=== PATIENT | male | born 1950 | race Caucasian/White ===

== ENCOUNTER 2022-12-11 00:10 | Inpatient (IN) | payer MEDICARE, SELFPAY ==
[2022-12-11] VITALS (22 sets, daily range): BP systolic 124–172; BP diastolic 51–77; PULSE 86–123; RESP 16–32; TEMP 36.4–37.1; O2SAT 28–98; BMI 22.8; BMI 23.1
--- NOTE | 2022-12-11 00:28 | EKG12_ITS ---
Test Reason : DYSRHYTHMIA Blood Pressure : / mmHG Vent. Rate : 116 BPM Atrial Rate : 116 BPM P-R Int : 136 ms QRS Dur : 100 ms QT Int : 318 ms P-R-T Axes : 073 061 -64 degrees QTc Int : 442 ms Sinus tachycardia with Premature atrial complexes Left ventricular hypertrophy with repolarization abnormality Abnormal ECG Confirmed by JULIO CRAWFORD, MIKY ([id number]), videotape editor KIRSTIN SOSA ([id number]) on 12/13/2022 9:50:05 AM Referred By: LIBBY Confirmed By:MIKY KIM MD
[2022-12-11] MEDS: Ipratropium/Albuterol Sulfate 3 ML AMPUL.NEB 6 ML INHALATION (00:35)
--- NOTE | 2022-12-11 00:39 | EX.ED.DYSGE1 ---
HPI History of Present Illness Chief Complaint: Shortness of Breath Narrative Narrative: Patient is a 72-year-old male who is presenting with his with chief complaint of shortness of breath, hypoxia, cough, congestion for the past 2 to 3 days. Patient has a significant cardiac history as well, patient had three-vessel bypass back in 1999. Patient has also had 2 or 3 stents since. Patient does not have a active licensed nursing assistant. Patient does have a history of emphysema COPD. Patient was smoking from the age of 17 up until the year 1999. Patient quit smoking in 1999, then started again 6 years later. Patient says that he quit 3 days ago. Patient has no recent traveling or trauma in the last week or 2. Patient does not wear oxygen at home. Patient does not wear CPAP or BiPAP at home. Patient has never been placed on CPAP or BiPAP before. Patient's has, she understands what CPAP or BiPAP is, but patient has never been on it. Patient has never been placed on a ventilator. Patient has no chest pain or tightness. No abdominal pain, nausea or vomiting. No diarrhea recently. No rash. No other acute complaints. Patient does have a nebulizer machine at home. Patient's been using his nebulizer every 4-5 hours for the last couple days. Patient came in by private car. No pitting edema. Patient states he is a type II diabetic. Patient does not recall ever having congestive heart failure. Patient did have a thoracentesis once after his open heart surgery in 1999. PFS PFS Medical History CAD (coronary artery disease) COPD (chronic obstructive pulmonary disease) Diabetes mellitus, type 2 Essential tremor History of CVA (cerebrovascular accident) Hyperlipidemia Hypertension Stage 3a chronic kidney disease (CKD) Tobacco use Home Medications atorvastatin 80 mg tablet 80 mg PO QHS 03/24/16 [History Last Taken Unknown] clopidogrel 75 mg tablet 75 mg PO DAILY 03/24/16 [History Last Taken Unknown] metformin 1,000 mg tablet 1,000 mg PO BIDCM 03/24/16 [History Last Taken Unknown] metoprolol tartrate 50 mg tablet 50 mg PO BID 03/24/16 [History Last Taken Unknown] albuterol sulfate 2.5 mg/3 mL (0.083 %) solution for nebulization mg 12/11/22 [History Last Taken Unknown] amlodipine 5 mg tablet 5 mg PO DAILY 12/11/22 [History Last Taken Unknown] primidone 50 mg tablet 50 mg PO BID 12/11/22 [History Last Taken Unknown] sertraline 100 mg tablet 100 mg PO DAILY 12/11/22 [History Last Taken Unknown] Allergy/AdvReac Type Severity Reaction Status Date / Time acetaminophen [From Tylenol] Allergy Unknown Verified 12/11/22 00:12 morphine Allergy Other Verified 12/11/22 00:12 oyster extract Allergy Unknown Verified 12/11/22 00:12 lisinopril AdvReac Other Verified 12/11/22 00:12 Family History (Updated 12/11/22 @ 02:[address] Patt Giordano MD) Mother Cancer Brain cancer, unclear type. Son Cancer Youngest son, metastatic testicular cancer. Father Heart disease Hypertension CVA (cerebral vascular accident) Surgical History (Updated 12/11/22 @ 02:[address] Patt Giordano MD) H/O heart artery stent H/O right inguinal hernia repair S/P appendectomy S/P bilateral foot surgery S/P triple vessel bypass Social History (Updated 12/11/22 @ 02:[address] Patt Giordano MD) household members: spouse Smoking Status: Former smoker how long ago did patient quit smoking: Smoked since 10/27/1967, up to 1 ppd, recent down to 1 pk/4-5 days. alcohol intake: current alcohol intake frequency: holidays/special occasions only substance use type: does not use ROS ROS ED ROS Narrative REVIEW OF SYSTEMS: Unless otherwise stated in this report the patient's positive and negative responses for review of systems for constitutional, eyes, ENT, cardiovascular, respiratory, gastrointestinal, neurological, , musculoskeletal, and integument systems and related systems to the presenting problem are either stated in the history of present illness or were not pertinent or were negative for the symptoms and/or complaints related to the presenting medical problem. EXAM Physical Exam Narrative Exam Narrative: Vital signs reviewed and patient is hypoxic on room air, 66% during initial triage.. Patient is 97% on 3 L of nasal cannula. General: The patient appears in mild respiratory distress with increased respiratory rate. Patient is resting comfortably on cart. Not toxic, lethargic, or listless. Skin: Warm, dry, no pallor noted. There is no rash noted. Head: Normocephalic, atraumatic Eye: Normal conjunctiva, no drainage, EOMI. PERRL. Ears, Nose, Mouth, and Throat: oral mucosa is moist. Nares patent. Mouth without vesicles. Ear canals patent. Tm's without Erythema Cardiovascular: Regular Rate and Rhythm, no murmurs, gallops, or rubs Respiratory: Patient is in mild respiratory distress with increased respiratory rate, bilateral diffuse wheezing, bilateral rhonchi diffusely, no crackles or rales noted. Back: non-tender, no CVA tenderness bilaterally to percussion. NO CTLS midline or paracervicl tenderness to palpation. GI: Soft, no tenderness to palpation, no masses appreciated. No rebound, guarding, or rigidity noted. Musculoskeletal: The patient has full range of motion of all extremities and joints with no difficulty. Patient has no motor, no sensory deficits. Neurological: A&O x4, normal speech, no focal neurological deficits. Psychiatric: Cooperative Const Vital Signs: 12/11/22 00:10 12/11/22 00:10 12/11/22 00:18 Temperature 97.9 F Temperature Source Temporal Pulse Rate 115 H Respiratory Rate 32 H Respiratory Effort Short of Breath Respiratory Depth Shallow Respiratory Pattern Tachypnea Blood Pressure 162/67 H Blood Pressure Mean 98 Pulse Ox 97 98 Oxygen Delivery Method Nasal Cannula Nasal Cannula Nasal Cannula Oxygen Flow Rate (L/min) 6 3 3 12/11/22 00:35 12/11/22 01:10 12/11/22 01:17 Temperature 97.6 F L Temperature Source Temporal Pulse Rate 123 H 117 H 118 H Respiratory Rate 24 H 28 H 28 H Respiratory Effort Respiratory Depth Respiratory Pattern Tachypnea Blood Pressure 168/67 H 168/67 H Blood Pressure Mean 100 100 Pulse Ox 28 95 Oxygen Delivery Method Nasal Cannula Nasal Cannula Oxygen Flow Rate (L/min) 2 2 12/11/22 01:47 12/11/22 02:00 12/11/22 02:00 Temperature 97.8 F Temperature Source Temporal Pulse Rate 115 H Respiratory Rate 24 H 24 H Respiratory Effort Respiratory Depth Respiratory Pattern Blood Pressure 157/73 H Blood Pressure Mean 101 Pulse Ox 95 Oxygen Delivery Method Nasal Cannula Nasal Cannula Oxygen Flow Rate (L/min) 2 2 12/11/22 02:09 Temperature 97.8 F Temperature Source Temporal Pulse Rate 111 H Respiratory Rate 25 H Respiratory Effort Respiratory Depth Respiratory Pattern Blood Pressure 157/73 H Blood Pressure Mean 101 Pulse Ox 96 Oxygen Delivery Method Nasal Cannula Oxygen Flow Rate (L/min) 2 [facility] MDM Lab Data Attestation: I reviewed the patient's lab results. Labs: Laboratory Results - last 24 hr 12/11/22 12/11/22 12/11/22 00:28 00:36 00:36 WBC 11.3 H RBC 3.64 L Hgb 11.7 L Hct 37.1 L MCV 101.9 H MCH 32.1 H MCHC 31.5 L RDW Std Deviation 52.1 H RDW Coeff of Christine 13.9 Plt Count 237 MPV 9.6 Immature Gran % (Auto) 0.400 Neut % (Auto) 72.9 H Lymph % (Auto) 15.3 L Bremer % (Auto) 10.2 H Eos % (Auto) 0.8 Baso % (Auto) 0.4 Absolute Neuts (auto) 8.2 H Absolute Lymphs (auto) 1.72 Nucleated RBC % 0 PT 15.0 H INR 1.2 Sodium Potassium Chloride Carbon Dioxide Anion Gap BUN Creatinine Estim Creat Clear Calc Est GFR (MDRD) Af Amer Est GFR (MDRD) Non-Af BUN/Creatinine Ratio Glucose Lactic Acid Calcium Total Bilirubin AST ALT Alkaline Phosphatase Troponin I High Sens B-Natriuretic Peptide 277.9 H Total Protein Albumin Globulin Albumin/Globulin Ratio 12/11/22 12/11/22 00:36 00:36 WBC RBC Hgb Hct MCV MCH MCHC RDW Std Deviation RDW Coeff of Christine Plt Count MPV Immature Gran % (Auto) Neut % (Auto) Lymph % (Auto) Bremer % (Auto) Eos % (Auto) Baso % (Auto) Absolute Neuts (auto) Absolute Lymphs (auto) Nucleated RBC % PT INR Sodium 138 Potassium 4.4 Chloride 101 Carbon Dioxide 28.0 Anion Gap 9 BUN 26 H Creatinine 1.41 H Estim Creat Clear Calc 54.85 Est GFR (MDRD) Af Amer 64 Est GFR (MDRD) Non-Af 53 L BUN/Creatinine Ratio 18.4 Glucose 165 H Lactic Acid 2.1 H* Calcium 9.1 Total Bilirubin 0.20 AST 35 ALT 23 Alkaline Phosphatase 120 H Troponin I High Sens 40 B-Natriuretic Peptide Total Protein 7.7 Albumin 3.2 Globulin 4.5 H Albumin/Globulin Ratio 0.7 L ABG Data ABG results: ABG 12/11/22 00:44 Specimen Type ART Sample Site L RADIAL pH 7.42 Bicarbonate Actual 28.3 H Total CO2 30 Base Excess 4 H O2 Saturation 96 ABG pCO2 44.0 ABG pO2 82 Raymon Test POS O2 Delivery Device Nasal Can Liter Flow 2.0 Crit Call To/Read Back Yes Blood Gas Notified Whom [facility] Blood Gas Notified Time 0044 Radiography Chest X-Ray - ED: 2 View and Read by ED Physician (Chest x-ray shows some bilateral lower faint infiltrate, COPD noted, no effusion, no pneumothorax, no other acute cardiopulmonary disease.) EKG Initial EKG: Comments: EKG interpretation. Sinus tachycardia 116. Normal axis deviation. Baseline sinus tachycardia with possible PAC. EKG reading LVH. QTc of 442. No acute ST elevation. Differential Diagnosis Differential Diagnosis: COPD exacerbation, upper respiratory infection, bronchitis, pneumothorax, MO, pleural effusion, hyperglycemia,COVID Treatment and Re-Evaluation :: Patient felt much better after 2 DuoNeb breathing treatments, Solu-Medrol and magnesium. Patient is given IV fluids as well to help with his heart rate. Patient's case was discussed with Dr. Patt Giordano, she agrees with admission. We both reviewed x-ray from back in February 2016, patient does have similar changes on today's x-ray that he did back in 2016. Patient and his had no questions at admission. Patient has been wearing 2 L of nasal cannula maintaining 97% on room air. Discharge Plan Triage Chief Complaint: Shortness of Breath ED Provider: Elroy Williamson Dx/Rx/DC Orders Prescriptions: No Action atorvastatin 80 MG tablet 80 mg PO QHS Label Comments: treat cholesterol clopidogrel 75 MG tablet 75 mg PO DAILY Label Comments: cholesterol metformin 1,000 MG tablet 1,000 mg PO BIDCM Label Comments: blood sugar metoprolol tartrate 50 MG tablet 50 mg PO BID Label Comments: treat Blood pressure primidone 50 mg tablet 50 mg PO BID Label Comments: TAKE 1 TABLET BY MOUTH TWICE A DAY albuterol sulfate 2.5 mg /3 mL (0.083 %) solution for nebulization sertraline 100 mg tablet 100 mg PO DAILY Label Comments: TAKE 1 TABLET BY MOUTH EVERY DAY amlodipine 5 mg tablet 5 mg PO DAILY Label Comments: TAKE 1 TABLET BY MOUTH EVERY DAY Primary Care Provider: Royce Carroll Referrals: Royce Carroll MD [Primary Care Provider] - Disposition Disposition: Acute Care Hospital [facility] [place] [facility]
[2022-12-11 00:48] LABS: Absolute Lymphocyte Count 1.72 X10^3/uL (0.83-4.51); Absolute Neutrophil Count 8.2 X10^3/uL (2.0-7.7); Basophil# 0.04 X10^3/uL; Basophil% 0.4 % (0-1); Eosinophil# 0.09 X10^3/uL; Eosinophils% 0.8 % (0-5); Hematocrit 37.1 % (40-54); Hemoglobin 11.7 g/dL (13.0-16.5); Lymphocyte # 1.72 X10^3/ul (0.83-4.51); Lymphocyte % 15.3 % (19-41); Mean Corp Hgb Conc 31.5 g/dL (32-36); Mean Corpuscular Hgb 32.1 pg (27.0-32.0); Mean Corpuscular Volume 101.9 fL (80-94); Mean Platelet Vol. 9.6 fl (6.2-12.0); Monocyte# 1.15 X10^3/uL; Monocyte% 10.2 % (0-10); NRBC Flagged by Analyzer 0 % (0-5); Neutrophil # 8.23 X10^3/uL (2.7-7.7); Neutrophil % 72.9 % (47-70); Platelet Count 237 K/mm3 (150-450); RBC Distribution Width CV 13.9 % (11.6-14.6); RBC Distribution Width SD 52.1 fl (35.1-43.9); Red Blood Count 3.64 M/mm3 (4.6-6.2); White Blood Count 11.3 K/mm3 (4.4-11.0)
[2022-12-11] MEDS: 0.9% Normal Saline 1,000 ML 150 ML IV (00:51)
[2022-12-11] MEDS: MethylPREDNISolone 125 MG/2 ML Vial IV (00:51)
--- NOTE | 2022-12-11 01:00 | RAD_ITS ---
STUDY: X-RAY CHEST REASON FOR EXAM: Male, 72 years old patient with shortness of breath. TECHNIQUE: Single AP portable view of the chest. COMPARISON: Chest radiograph dated March 24, 2016. FINDINGS: Cardiac monitoring leads are present. The patient has had a sternotomy. Lungs are hyperexpanded. There are prominent bronchovascular markings in both lungs. There may be small bilateral pleural effusions. Normal size heart. Normal mediastinum and kalyan. There is prominence of the pulmonary hilar arteries with peripheral pulmonary vascular congestion. There is atherosclerotic calcification of the aortic arch with tortuosity. Normal visualized thoracic spine. Normal visualized ribs, clavicles, and shoulders. There is no demonstrated abnormality of the visualized soft tissue structures of the upper abdomen. RAD/Chest 1 View (Portable) IMPRESSION: Pulmonary vascular congestion. Electronically Signed: Bhargavi Kennedy MD at 1:47 EDT ,
[2022-12-11] MEDS: levoFLOXacin IV 750 MG/150 ML BAG 100 MG IV (01:01)
[2022-12-11 01:07] LABS: ALB/GLOB Ratio 0.7 RATIO (0.9-2.4); AST(SGOT) 35 U/L (15-37); Alanine Aminotransfer ALT/SGPT 23 U/L (16-61); Albumin, Serum 3.2 g/dL (3.2-5.0); Alkaline Phosphatase 120 U/L (45-117); Anion Gap 9 (5-15); BUN 26 mg/dL (7-18); BUN/Creat Ratio 18.4 RATIO (10-20); Calcium,Total 9.1 mg/dL (8.5-10.1); Chloride 101 mmol/L (98-107); Creatinine, Serum 1.41 mg/dL (0.70-1.30); EST Glomerular Filtration Rate 53 mL/min (>60); Est Glom Filt Rate - Afr Amer 64 mL/min (>60); Estimated Creatinine Clearance 54.85 ml/min; Globulin 4.5 g/dL (2.2-4.2); Glucose 165 mg/dL (74-106); Potassium 4.4 mmol/L (3.5-5.1); Protein, Total 7.7 g/dL (6.4-8.2); Sodium Level 138 mmol/L (136-145); Troponin-I HS 40 pg/mL (3.0-78.0)
--- NOTE | 2022-12-11 01:08 | CPS ---
Additional x1 Duoneb given to pt. in ER as well
[2022-12-11 01:12] LABS: BNP,B-Type NATRIURETIC PEPTIDE 277.9 pg/mL (0-100)
[2022-12-11 01:22] LABS: Lactic Acid 2.1 mmol/L (0.4-1.9)
[2022-12-11 01:40] LABS: Allen Test POS; Blood Gas Specimen Type ART; SITE L RADIAL
[2022-12-11 01:41] LABS: O2 Delivery Device Nasal Can
[2022-12-11] MEDS: Magnesium 2 GM for ERAS IV (01:42)
[2022-12-11 01:47] LABS: Bicarbonate 28.3 mmol/L (22-26); PO2 82 mmHG (75-100); pH 7.42 (7.35-7.45)
[2022-12-11 01:48] LABS: Base Excess 4 mmol/L (-2 to +2)
[2022-12-11 01:49] LABS: SO2 96 % (95-99); Total Carbon Dioxide 30 mmol/L
[2022-12-11 02:02] LABS: International Normalized Ratio 1.2
[2022-12-11] MEDS: 0.9% Normal Saline 1,000 ML 999 ML IV (02:07)
[2022-12-11] MEDS: Lactated Ringers 1,000 ML 999 ML IV (02:18)
--- NOTE | 2022-12-11 03:09 | HP.PCM.HOS_ITS ---
HPI - General General Date of Admission: 12/11/22 Date of Service: 12/11/22 Chief Complaint: Dyspnea, cough, congestion, wheezing. HPI Narrative The patient is a 72 y/o M w/ PMHx: CKD stage IIIa, Essential tremor, COPD, Known Lung nodules, Tobacco use, HTN, HLD, CAD s/p PCI and CABG, Hx CVA, Anxiety and Depression, Carotid disease, Diabetes mellitus type II who presents to the [facility] ED on 12/11/22 with history of 2 to 3 days of progressively worsening fatigue, malaise, cough and congestion with onset of worsening dyspnea with noted hypoxia with recent tobacco cessation approximately 3 days prior to current presentation however given worsening status prompted eventual ED evaluation. Patient reportedly stopped smoking approximately 3 days prior to current presentation although he did quit transiently in 1999 but started again several years later. Patient reports using his nebulizer frequently, approximately every 4-5 hours for the last couple days without significant improvement. He denies any recent associated nausea, emesis, loose stools or abdominal discomfort. He does report having missed his evening medications Toprol regimen. who is present has also had recent congestion, cough over the last couple days as well. Work-up in the ED included T97.9, heart rate 115, BP 162/67, respiratory rate 32, initially upon arrival 97% on 6 L nasal cannula de-escalated down to 98% on 3 L nasal cannula--> T97.6, heart rate 118, BP 168/67, respiratory rate 28, 95% on 2 L nasal cannula, CBC with WC 11.3, hemoglobin 11.7, MCV 1.9, platelet 237 with left shift, CMP with BUN/creatinine 26/1.41, glucose 165, alk phos 120, lactic acid 2.1, troponin 40, BNP 277.9, chest x-ray with chronic changes similar to prior however ED physician preliminary read specifically noting some bilateral lower faint infiltrate, COPD changes noted with no effusion, no pneumothorax nor any other acute cardiopulmonary findings, EKG with ST with PAC with no acute evidence of ischemia, rapid COVID antigen negative, blood culture x2 pending per ED, ABG with pH 7.42, bicarb 28.3, O2 saturation 96%, PCO2 44, PO2 82 performed on 2 L nasal cannula, pending PT with INR as well as urinalysis/urine culture per ED upon requested evaluation of patient. In the ED patient ministered Solu- Medrol 125 mg IV x1, magnesium 2 g IV x1, DuoNeb therapy, maintenance IV fluid normal saline with eventual full 30 cc/kg IV bolus administration as well as Levaquin 750 mg IV x1. [facility] Medical History CAD (coronary artery disease) COPD (chronic obstructive pulmonary disease) Diabetes mellitus, type 2 Essential tremor History of CVA (cerebrovascular accident) Hyperlipidemia Hypertension Stage 3a chronic kidney disease (CKD) Tobacco use Home Medications atorvastatin 80 mg tablet 80 mg PO QHS 03/24/16 [History Last Taken Unknown] clopidogrel 75 mg tablet 75 mg PO DAILY 03/24/16 [History Last Taken Unknown] metformin 1,000 mg tablet 1,000 mg PO BIDCM 03/24/16 [History Last Taken Unknown] metoprolol tartrate 50 mg tablet 50 mg PO BID 03/24/16 [History Last Taken Un known] albuterol sulfate 2.5 mg/3 mL (0.083 %) solution for nebulization mg 12/11/22 [History Last Taken Unknown] amlodipine 5 mg tablet 5 mg PO DAILY 12/11/22 [History Last Taken Unknown] primidone 50 mg tablet 50 mg PO BID 12/11/22 [History Last Taken Unknown] sertraline 100 mg tablet 100 mg PO DAILY 12/11/22 [History Last Taken Unknown] Allergy/AdvReac Type Severity Reaction Status Date / Time acetaminophen [From Tylenol] Allergy Unknown Verified 12/11/22 00:12 morphine Allergy Other Verified 12/11/22 00:12 oyster extract Allergy Unknown Verified 12/11/22 00:12 lisinopril AdvReac Other Verified 12/11/22 00:12 Family History (Updated 12/11/22 @ 02:[address] Patt Giordano MD) Mother Cancer Brain cancer, unclear type. Son Cancer Youngest son, metastatic testicular cancer. Father Heart disease Hypertension CVA (cerebral vascular accident) Surgical History (Updated 12/11/22 @ 02:[address] Patt Giordano MD) H/O heart artery stent H/O right inguinal hernia repair S/P appendectomy S/P bilateral foot surgery S/P triple vessel bypass Social History (Updated 12/11/22 @ 02:[address] Patt Giordano MD) household members: spouse Smoking Status: Former smoker how long ago did patient quit smoking: Smoked since 10/27/1967, up to 1 ppd, r ecent down to 1 pk/4-5 days. alcohol intake: current alcohol intake frequency: holidays/special occasions only substance use type: does not use ROS ROS Narrative Admission Review of Systems: CONSTITUTIONAL: No weight loss, fever, chills, + weakness or fatigue. HEENT: + Congestion, rhinorrhea. Eyes: No visual loss, blurred vision, double vision or yellow sclerae. Ears, Nose, Throat: No hearing loss, sneezing. SKIN: No rash or itching, lesions, wounds. CARDIOVASCULAR: No chest pain, chest pressure or chest discomfort, palpitations, edema, orthopnea, syncopal events. RESPIRATORY: + shortness of breath, cough without marked sputum, wheezing. No hemoptysis. GASTROINTESTINAL: No anorexia, nausea, vomiting or diarrhea, abdominal pain, melena, BRBPR. GENITOURINARY: No dysuria, frequency, urgency or retention. NEUROLOGICAL: No headache, dizziness, syncope, paralysis, ataxia, numbness or tingling in the extremities, focal weakness, change in bowel or bladder control, seizure. MUSCULOSKELETAL: + muscle, back pain, joint pain or stiffness. HEMATOLOGIC: + Easy bleeding or bruising. LYMPHATICS: No enlarged nodes. No history of splenectomy. PSYCHIATRIC: + history of depression or anxiety. ENDOCRINOLOGIC: No reports of sweating, cold or heat intolerance. No polyuria or polydipsia. ALLERGIES: No history of asthma, hives, eczema or rhinitis. Vital Signs Vital Signs Vital Signs: 12/11/22 00:10 12/11/22 00:10 12/11/22 00:18 Temperature 97.9 F Temperature Source Temporal Pulse Rate 115 H Respiratory Rate 32 H Respiratory Effort Short of Breath Respiratory Depth Shallow Respiratory Pattern Tachypnea Blood Pressure 162/67 H Blood Pressure Mean 98 Pulse Ox 97 98 Oxygen Delivery Method Nasal Cannula Nasal Cannula Nasal Cannula Oxygen Flow Rate (L/min) 6 3 3 12/11/22 00:35 12/11/22 01:10 12/11/22 01:17 Temperature 97.6 F L Temperature Source Temporal Pulse Rate 123 H 117 H 118 H Respiratory Rate 24 H 28 H 28 H Respiratory Effort Respiratory Depth Respiratory Pattern Tachypnea Blood Pressure 168/67 H 168/67 H Blood Pressure Mean 100 100 Pulse Ox 28 95 Oxygen Delivery Method Nasal Cannula Nasal Cannula Oxygen Flow Rate (L/min) 2 2 12/11/22 01:47 Temperature Temperature Source Pulse Rate Respiratory Rate Respiratory Effort Respiratory Depth Respiratory Pattern Blood Pressure Blood Pressure Mean Pulse Ox Oxygen Delivery Method Nasal Cannula Oxygen Flow Rate (L/min) 2 Weight Weight: 177 lb 14.609 oz Body Mass Index (BMI) 22.8 Physical Exam Narrative Physical Examination: General: Awake, alert, oriented x 3 and cooperative, seated upright in the ED bed, fatigued, evidence of mild respiratory distress with increased respiratory rate and accessory muscle usage Skin: Normal color, normal turgor, no icterus, no cyanosis. HEENT: AT/NC, EOMI, PERRLA, dry MM, no carotid bruits or JVD noted. Lungs: Diffusely diminished with mildly increased respiratory rate and some accessory muscle usage noted, diffuse wheezing bilaterally, more so anteriorly and upper airway, tight and distant posterior and base kahn, no rales, current rhonchi or crackles noted. Heart: Mildly tachycardic with regular rhythm; no gallop, rub audible. Abdomen: Soft, NTTP, ND, normal BS, no HSM. Extremities: No cyanosis, clubbing, or edema. Neurological: Patient awake, alert, oriented x 3, cognitive function intact; pupils equally reactive to light and accommodation, cranial nerves II-XII grossly normal, moving all 4 extremities, no focal deficits, strength severely globally decreased secondary to acute presentation. Psychiatric: Affect appears fatigued, evidence of respiratory mild distress is noted, no acute evidence of depressive or anxiety feelings but does have underlying history. Results Lab / Micro Data Result Diagrams: 12/11/22 00:36 12/11/22 00:36 Labs: Laboratory Results - last 24 hr 12/11/22 00:28: PT 15.0 H, INR 1.2 12/11/22 00:36: WBC 11.3 H, RBC 3.64 L, Hgb 11.7 L, Hct 37.1 L, MCV 101.9 H, MCH 32.1 H, MCHC 31.5 L, RDW Std Deviation 52.1 H, RDW Coeff of Christine 13.9, Plt Count 237, MPV 9.6, Immature Gran % (Auto) 0.400, Neut % (Auto) 72.9 H, Lymph % (Auto) 15.3 L, [place] % (Auto) 10.2 H, Eos % (Auto) 0.8, Baso % (Auto) 0.4, Absolute Neuts (auto) 8.2 H, Absolute Lymphs (auto) 1.72, Nucleated RBC % 0 12/11/22 00:36: B-Natriuretic Peptide 277.9 H 12/11/22 00:36: Sodium 138, Potassium 4.4, Chloride 101, Carbon Dioxide 28.0, Anion Gap 9, BUN 26 H, Creatinine 1.41 H, Estim Creat Clear Calc 54.85, Est GFR (MDRD) Af Amer 64, Est GFR (MDRD) Non-Af 53 L, BUN/Creatinine Ratio 18.4, Glucose 165 H, Calcium 9.1, Total Bilirubin 0.20, AST 35, ALT 23, Alkaline Phosphatase 120 H, Troponin I High Sens 40, Total Protein 7.7, Albumin 3.2, Globulin 4.5 H, Albumin/Globulin Ratio 0.7 L 12/11/22 00:36: Lactic Acid 2.1 H* Micro: Microbiology 12/11/22 00:42 Nasal Secretion SARS-CoV-2 Antigen (Rapid) - Final ABG Data ABG results: ABG 12/11/22 00:44 Specimen Type ART Sample Site L RADIAL pH 7.42 Bicarbonate Actual 28.3 H Total CO2 30 Base Excess 4 H O2 Saturation 96 ABG pCO2 44.0 ABG pO2 82 Raymon Test POS O2 Delivery Device Nasal Can Liter Flow 2.0 Crit Call To/Read Back Yes Blood Gas Notified Whom HOSP Blood Gas Notified Time 0044 Assessment & Plan Assessment/Plan (1) COPD exacerbation: PLAN: Plan The patient is a 72 y/o M w/ PMHx: CKD stage IIIa, Essential tremor, COPD, Known Lung nodules, Tobacco use, HTN, HLD, CAD s/p PCI and CABG, Hx CVA, Anxiety and Depression, Carotid disease, Diabetes mellitus type II who presents to the [facility] ED on 12/11/22 with history of 2 to 3 days of progressively worsening fatigue, malaise, cough and congestion with onset of worsening dyspnea with noted hypoxia with recent tobacco cessation approximately 3 days prior to current presentation however given worsening status prompted eventual ED evaluation. #1. Acute Sepsis (Leukocytosis, Tachycardia, Tachypnea, Hypoxia, Lactic acidosis) secondary to Hypoxia with mild Respiratory distress secondary to Acute on chronic COPD exacerbation with associated mild lactic acidosis suspected likely secondary to hypoxemia possibly secondary to Possible acute viral syndrome, Lower suspicion CAP: Will admit to MS telemetry given improvement of oxygenation upon presentation and ABG no marked appearing, maintain on oxygen with wean as tolerated to room air, CXR appears similar to prior; however, final read pending and ED read with concern mild BL infiltrates, will continue ATC duonebs, PRN albuterol, IV methylprednisolone, will judiciously hydrate with repeat lactic acid per facility protocol, HOB, IS parameters, will obtain sputum culture if able to provide, will obtain full respiratory viral panel, COVID PCR to be cautious given recent recurrent cases, obtain procalcitonin and if any indication of bacterial will continue antibiotic therapy, already dosed with IV Levaquin in the ED upon presentation x 1. #2. Macrocytic anemia, new onset, acute: Admission CBC with hemoglobin 11.7, MCV 101.9, last noted baseline hemoglobin is 2015 and noted to be 13-14 at that time, will obtain iron panel, ferritin, guaiac, vitamin B12 and folic acid, repeat CBC in AM. Of note [facility] records with hemoglobin 07/04/2020 2213.4, MCV 102.2 at that time. #3. CAD: Status post prior PCI and CABG x3, we will continue patient home Plavix, statin, metoprolol home regimen, not on BRI/ARB with reported allergy as angioedema. #4. Hypertension: Continue home regimen including amlodipine, metoprolol, PRN hydralazine. #5. Hyperlipidemia: Continue home statin regimen. #6. Anxiety and depression: We will continue patient on sertraline regimen. #7. History CVA with carotid disease: We will continue patient home Plavix, statin, hypertensive regimen as noted, diabetic regimen with alterations as noted. Prior noted history LICS following prior with Dr. Martin. #8. Diabetes mellitus type II: Hold oral home regimen, ADA diet, accu checks w/ ISS, given IV Solu-Medrol usage do expect associated hyperglycemia. #9. Tobacco Abuse: Encouraged cessation, started 10/27/1967, quit in 1999 although started again 6 years later, 1 pack/day history, inpatient consultation per RT, NR if desired. #10. Essential tremor: We will continue patient home primidone regimen. #11. Known lung nodules: Following outpatient for known lung nodules, most recent imaging noted 10/29/[address] lung screen with a solid nodule right upper lobe unchanged since image prior , stable linear density anteri or left upper lobe suspected scarring or atelectasis, mildly enlarged subcarinal lymph node stable since 11/01/2021. #12. Chronic Kidney Disease Stage IIIa: Admission BUN/Cr 26/1.41, baseline renal function 1.0-1.3, repeat BMP in AM. Most recently noted from [facility] 07/04/2022 BUN/creatinine 17/1.31. Admission creatinine mildly increased above prior baseline noted however minimally elevated, continue to trend. #13. DVT prophylaxis: Lovenox. #14. CODE status: Patient HCPOA and living will are both not in place but his would be his decision maker if he was unable. Discussed CODE status at length including difference between FULL code, DNR-CCA and DNR-CC status. Following discussions about the differences in these status, requested Full Code status. Advanced Care Planning Face to Face Time: 16 minutes. Admission Evaluation Time spent evaluating chart, patient history, patient evaluation, care planning and discussion with specialists: 75 minutes. Charges/Coding Visit Charges Inpatient E&M: 60734 Init Hosp L3 Procedures Hospitalists Procedures: 72877 Advncd Care Plan 30 Min
[2022-12-11 03:41] LABS: Bacteria 0 SEEN /hpf (None Seen); Mucous, Urine 0 SEEN /hpf (<or=2+); Squamous Epithelial Cells - UA 0 SEEN /hpf (0-5); White Blood Cells 0 SEEN /hpf (0-5)
[2022-12-11 03:43] LABS: Color, Urine Yellow (Yellow); Glucose, Dipstick Normal (Normal); Ketone-Dipstick 5 mg/dl (Negative); Leukocyte Esterase-Dipstick Negative /ul (Negative); Nitrite-Dipstick Negative (Negative); Occult Blood-Urine 25 /ul (Negative); Protein-Dipstick 100 mg/dl (Negative); Urine Bilirubin Dipstick Negative (Negative); Urine Clarity Clear (Clear); Urine Urobilinogen Normal (Normal)
[2022-12-11 04:22] LABS: Red Blood Cells-Urine 0-5 SEEN /hpf (0-5)
[2022-12-11] MEDS: 0.9% Saline Lock 10 ML Syringe IV ×3 (04:42→22:36)
[2022-12-11] MEDS: 0.9% Normal Saline 1,000 ML 125 ML IV (04:42)
[2022-12-11] MEDS: Metoprolol Tartrate 50 MG Tablet PO ×2 (04:43→22:36)
[2022-12-11] MEDS: Primidone 50 MG Tablet PO ×2 (04:43→17:01)
[2022-12-11] MEDS: Atorvastatin Calcium 80 MG Tablet PO ×2 (04:43→22:37)
[2022-12-11 04:45] LABS: Reflex Lactate? Y
[2022-12-11] MEDS: Methylprednisolone Sod Succ 40 MG/ML VIAL IV ×3 (04:47→22:36)
[2022-12-11 05:00] LABS: Procalcitonin 0.17 ng/mL (0.00-0.09)
[2022-12-11 05:34] LABS: Absolute Neutrophil Count 9.2 X10^3/uL (2.0-7.7); Basophil# 0.02 X10^3/uL; Basophil% 0.2 % (0-1); Hematocrit 32.8 % (40-54); Hemoglobin 10.7 g/dL (13.0-16.5); Lymphocyte % 3.1 % (19-41); Mean Corp Hgb Conc 32.6 g/dL (32-36); Mean Corpuscular Hgb 33.3 pg (27.0-32.0); Mean Corpuscular Volume 102.2 fL (80-94); Mean Platelet Vol. 9.4 fl (6.2-12.0); Monocyte# 0.27 X10^3/uL; Monocyte% 2.8 % (0-10); NRBC Flagged by Analyzer 0 % (0-5); Neutrophil # 9.15 X10^3/uL (2.7-7.7); Neutrophil % 93.8 % (47-70); POSITIVE DIFFERENTIAL YES; Platelet Count 194 K/mm3 (150-450); RBC Distribution Width CV 13.9 % (11.6-14.6); RBC Distribution Width SD 52.8 fl (35.1-43.9); Red Blood Count 3.21 M/mm3 (4.6-6.2); White Blood Count 9.8 K/mm3 (4.4-11.0)
[2022-12-11 05:45] LABS: Differential Indicated SCAN CRITERIA MET
[2022-12-11 06:02] LABS: ALB/GLOB Ratio 0.7 RATIO (0.9-2.4); AST(SGOT) 26 U/L (15-37); Alanine Aminotransfer ALT/SGPT 20 U/L (16-61); Albumin, Serum 2.7 g/dL (3.2-5.0); Alkaline Phosphatase 104 U/L (45-117); Anion Gap 7 (5-15); BUN 22 mg/dL (7-18); BUN/Creat Ratio 19.3 RATIO (10-20); Calcium,Total 8.2 mg/dL (8.5-10.1); Chloride 106 mmol/L (98-107); Creatinine, Serum 1.14 mg/dL (0.70-1.30); EST Glomerular Filtration Rate 67 mL/min (>60); Est Glom Filt Rate - Afr Amer 81 mL/min (>60); Estimated Creatinine Clearance 68.76 ml/min; Globulin 3.9 g/dL (2.2-4.2); Glucose 189 mg/dL (74-106); Iron 16 ug/dL (65-175); Iron Binding Capacity,Total 309 ug/dL (250-450); Potassium 4.8 mmol/L (3.5-5.1); Protein, Total 6.6 g/dL (6.4-8.2); Sodium Level 138 mmol/L (136-145)
[2022-12-11 06:03] LABS: Ferritin 153 ng/mL (26-388); PERCENT IRON SATURATION 5.2 % (15.0-55.0)
[2022-12-11 06:20] LABS: Macrocytosis 1+
[2022-12-11] MEDS: Insulin Lispro 100 UNIT/ML INSULN.PEN SC ×4 (06:54→22:37)
[2022-12-11] MEDS: Ipratropium/Albuterol Sulfate 3 ML AMPUL.NEB INHALATION ×4 (07:52→19:25)
[2022-12-11 07:55] LABS: Bedside Glucose 185 mg/dL (74-106)
[2022-12-11] MEDS: Sertraline 100 MG Tablet PO (08:10)
[2022-12-11] MEDS: Clopidogrel Bisulfate 75 MG Tablet PO (08:10)
[2022-12-11] MEDS: Enoxaparin 40 MG/0.4 ML Syringe SC (08:10)
[2022-12-11] MEDS: amLODIPine 5 MG Tablet PO (08:10)
[2022-12-11 08:30] LABS: Vitamin B12 540 pg/mL (211-911)
[2022-12-11 12:40] LABS: Bedside Glucose 242 mg/dL (74-106)
--- NOTE | 2022-12-11 14:56 | CASEMGMT ---
JOE BOLDEN Assessment: Face to Face with pt for initial transition planning/care coordination assessment. JOE BOLDEN introduced self and role at [facility], pt voices understanding and consents to assessment. Pt is A/O x4 and answers all questions appropriately at this time. Pt lying in bed with oxygen on in no distress. Care providers, pharmacy, and demographics verified/updated. Admitting Dx: sepsis, hypoxia, COPD exac PCP:[facility] Specialists:Pt has a neuro, pod and cardio at [facility] but he is unsure of the names. Preferred Pharmacy: [facility] Insurance: [employer] [facility] Prescription Benefit: yes LNOK: Mis Greenberg, Living Arrangements: Pt lives with , sister in law and nephew in a mobile home with 4 steps to enter with a rail. Pt reports his assists with bathing tasks at home. Pt denies concerns at home. Transportation: Pt drives self and denies concerns with transportation. DME/HHC/SNF: Pt has a nebulizer, cane, walkers and BGM at home. Pt states his test strips do not fit his BGM and is asking for a new meter. Pt denies hx of HHC or SNF stays. Pt states no concerns with going home at time of dc. Pt denies any need for SN or therapy in the home. He states he feels like he needs to go fishing and have a good time. Discussed with pt should he need oxygen upon dc his preference. Provided pt with a verbal local in network list of DME companies, pt chose [employer]. Pt states no further concerns/needs. CM to follow. Advised pt to ask CM if any further question/concerns/needs arise, voices understanding. Pt Goal: Home Plan: Home, follow for oxygen
--- NOTE | 2022-12-11 16:00 | NURSING ---
Patient has been up to the bathroom a few times today. Each time he would get OOB his Sp02 would drop into the 70's after being in the bathroom with his 4L 02 on. After several minutes of sitting on EOB and deep breathing, patient's Sp02 would come back up into the low 90's as it was prior to exertion. Continuous pulse ox maintained. Will continue to monitor.
[2022-12-11 17:35] LABS: Bedside Glucose 245 mg/dL (74-106)
--- NOTE | 2022-12-11 22:50 | NURSING ---
Patient required 5L of O2 NC to recover from being up to the bathroom. After several minutes on 5L, he maintained >90% SpO2 on 3L. When sitting forward for lung assessment patient desated to 85% on 3L. After several minutes was able to rebound to 90% on 3L. Continuous pulse ox maintained.
[2022-12-11 23:16] LABS: Bedside Glucose 180 mg/dL (74-106)
[2022-12-12] VITALS (24 sets, daily range): BP systolic 120–159; BP diastolic 65–87; PULSE 75–124; RESP 20–36; TEMP 36.4–36.8; O2SAT 82–97; BMI 23.4
--- NOTE | 2022-12-12 00:17 | NURSING ---
Po 86% on 3lnc. 02 in pt nose and pt sleeping. increased 02 to 4lnc
[2022-12-12 06:16] LABS: Absolute Neutrophil Count 9.3 X10^3/uL (2.0-7.7); Basophil# 0.01 X10^3/uL; Basophil% 0.1 % (0-1); Hemoglobin 10.5 g/dL (13.0-16.5); Lymphocyte % 8.3 % (19-41); Mean Corp Hgb Conc 31.8 g/dL (32-36); Mean Corpuscular Hgb 32.5 pg (27.0-32.0); Mean Corpuscular Volume 102.2 fL (80-94); Mean Platelet Vol. 9.3 fl (6.2-12.0); Monocyte# 0.63 X10^3/uL; Monocyte% 5.8 % (0-10); NRBC Flagged by Analyzer 0 % (0-5); Neutrophil # 9.26 X10^3/uL (2.7-7.7); Neutrophil % 85.5 % (47-70); Platelet Count 220 K/mm3 (150-450); RBC Distribution Width CV 13.6 % (11.6-14.6); RBC Distribution Width SD 51.6 fl (35.1-43.9); Red Blood Count 3.23 M/mm3 (4.6-6.2); White Blood Count 10.8 K/mm3 (4.4-11.0)
[2022-12-12] MEDS: Methylprednisolone Sod Succ 40 MG/ML VIAL IV ×3 (06:46→20:52)
[2022-12-12] MEDS: 0.9% Saline Lock 10 ML Syringe IV ×3 (06:48→20:52)
[2022-12-12] MEDS: Insulin Lispro 100 UNIT/ML INSULN.PEN SC ×4 (06:52→20:48)
[2022-12-12 06:53] LABS: Anion Gap 5 (5-15); BUN 30 mg/dL (7-18); BUN/Creat Ratio 26.8 RATIO (10-20); Calcium,Total 8.8 mg/dL (8.5-10.1); Chloride 108 mmol/L (98-107); Creatinine, Serum 1.12 mg/dL (0.70-1.30); EST Glomerular Filtration Rate 69 mL/min (>60); Est Glom Filt Rate - Afr Amer 83 mL/min (>60); Estimated Creatinine Clearance 70.33 ml/min; Glucose 182 mg/dL (74-106); Sodium Level 139 mmol/L (136-145)
[2022-12-12 07:30] LABS: Bedside Glucose 165 mg/dL (74-106)
[2022-12-12] MEDS: Ipratropium/Albuterol Sulfate 3 ML AMPUL.NEB INHALATION ×4 (07:31→19:33)
[2022-12-12 08:48] LABS: BNP,B-Type NATRIURETIC PEPTIDE 485.3 pg/mL (0-100)
[2022-12-12] MEDS: Clopidogrel Bisulfate 75 MG Tablet PO (08:58)
[2022-12-12] MEDS: Enoxaparin 40 MG/0.4 ML Syringe SC (08:59)
[2022-12-12] MEDS: Primidone 50 MG Tablet PO ×2 (08:59→16:26)
[2022-12-12] MEDS: Metoprolol Tartrate 50 MG Tablet PO ×2 (08:59→20:50)
[2022-12-12] MEDS: amLODIPine 5 MG Tablet PO (09:00)
[2022-12-12] MEDS: Sertraline 100 MG Tablet PO (09:00)
--- NOTE | 2022-12-12 09:03 | ECHOCS_ITS ---
Reason For Study: Dyspnea/SOB Procedure This was a 2D Doppler, Color Flow transthoracic echocardiogram. The study was technically difficult. Contrast injection was performed. Exam performed portable in patient room. Left Ventricle Normal left ventricle. The estimated ejection fraction is 55-60 %. Right Ventricle Normal right ventricle. Normal systolic function. Atria Normal left atrium. Normal right atrium. Mitral Valve There is mild to moderate mitral annular calcification. Mild-Moderate (1-2+) eccentric mitral valve insufficiency. Tricuspid Valve Normal tricuspid valve. Mild tricuspid valve insufficiency. Aortic Valve Mild diffuse aortic valve calcification. Mild (1+) aortic valve insufficiency. Pulmonic Valve The pulmonic valve is not well visualized. Great Vessels Normal aortic root. Pericardium/Pleural No pericardial effusion. Medication Diluted definity 2ml given slow IV push to enhance endocardial definition. MMode/2D Measurements & Calculations LVIDd: 5.2 cm IVSd: 1.2 cm LA dimension: 4.4 cm LVIDs: 4.3 cm LVPWd: 1.0 cm FS: 17.6 % LAV(MOD-bp): 45.1 ml LA A4 area: 19.7 cm2 RA A4 area: 12.0 cm2 LAV(MOD-bp) Indexed: 21.6 ml/m2 LAV(MOD-sp2): 34.7 ml LAV(MOD-sp4): 54.3 ml Time Measurements MV dec time: 0.13 sec Doppler Measurements & Calculations MV E max dirk: 87.0 cm/sec Lat Peak E' Dirk: 9.9 cm/sec Med Peak E' Dirk: 8.2 cm/sec MV A max dirk: 88.1 cm/sec E/E' lat: 8.8 E/E' med: 10.7 MV E/A: 0.99 MV V2 max: 132.1 cm/sec MV P1/2t max dirk: 134.8 cm/sec Ao V2 max: 102.5 cm/sec MV max P.0 mmHg MV P1/2t: 61.1 msec Ao max P.2 mmHg MV V2 mean: 76.1 cm/sec MV dec slope: 646.7 cm/sec2 Ao V2 mean: 70.8 cm/sec MV mean P.8 mmHg Ao mean P.3 mmHg MV V2 VTI: 40.2 cm MVA(P1/2t): 3.6 cm2 Ao V2 VTI: 23.1 cm AV (velocity ratio): 0.77 LV V1 max: 87.5 cm/sec MR max dirk: 514.2 cm/sec PA V2 max: 75.8 cm/sec LV V1 max P.1 mmHg MR max P.8 mmHg LV V1 mean P.5 mmHg MR mean dirk: 424.0 cm/sec LV V1 mean: 56.4 cm/sec MR mean P.7 mmHg LV V1 VTI: 17.6 cm MR VTI: 170.8 cm TR max dirk: 342.1 cm/sec TR max P.8 mmHg ECHO/Echo Complete W/ Contrast Interpretation Summary The estimated ejection fraction is 55-60 %. Stage I diastolic dysfunction Normal LV systolic function Mild to moderate MR Ordering Physician: Josh Linn Performed By: Momo Arango RCS
--- NOTE | 2022-12-12 09:04 | PN.HOSP_ITS ---
Subjective Subjective Well, feels a bit better today than he did when he came in however he did have a slight increase in his oxygen requirement Objective Data Objective Data Vital Signs: Vital Signs Temp Pulse Resp BP Pulse Ox O2 Del Method O2 Flow Rate 97.7 F L 100 26 H 159/80 H 94 High Flow 5 12/12/22 08:48 12/12/22 08:59 12/12/22 08:48 12/12/22 08:59 12/12/22 08:48 12/12/22 08:48 12/12/22 08:48 Oxygen Flow Rate (L/min) 5 Oxygen Delivery Method High Flow Weight: 182 lb 12.211 oz Body Mass Index (BMI) 23.4 Intake & Output: Intake and Output for Last 24 Hours 12/11/22 12/12/22 12/13/22 03:59 03:59 03:59 Intake Total 2254 / 2254 2105.83 / 2105.83 Balance 2254 / 2254 2105.83 / 2105.83 Lab / Micro Data Result Diagrams: 12/12/22 06:00 12/12/22 06:00 Labs: Laboratory Results - last 24 hr 12/11/22 12:10: POC Glucose 242 H 12/11/22 16:57: POC Glucose 245 H 12/11/22 22:21: POC Glucose 180 H 12/12/22 06:00: WBC 10.8, RBC 3.23 L, Hgb 10.5 L, Hct 33.0 L, MCV 102.2 H, MCH 32.5 H, MCHC 31.8 L, RDW Std Deviation 51.6 H, RDW Coeff of Christine 13.6, Plt Count 220, MPV 9.3, Immature Gran % (Auto) 0.300, Neut % (Auto) 85.5 H, Lymph % (Auto) 8.3 L, [place] % (Auto) 5.8, Eos % (Auto) 0.0, Baso % (Auto) 0.1, Absolute Neuts (auto) 9.3 H, Absolute Lymphs (auto) 0.90, Nucleated RBC % 0 12/12/22 06:00: Sodium 139, Potassium 5.0, Chloride 108 H, Carbon Dioxide 26.0, Anion Gap 5, BUN 30 H, Creatinine 1.12, Estim Creat Clear Calc 70.33, Est GFR (MDRD) Af Amer 83, Est GFR (MDRD) Non-Af 69, BUN/Creatinine Ratio 26.8 H, Glucose 182 H, Calcium 8.8 12/12/22 06:00: B-Natriuretic Peptide 485.3 H 12/12/22 06:51: POC Glucose 165 H Micro: Microbiology 12/11/22 02:48 Mucosa - Nose Respiratory Panel (PCR) - Final 12/11/22 03:32 Urine, Clean Catch Legionella Antigen - Final 12/11/22 03:32 Urine, Clean Catch Streptococcus pneumoniae Antigen (M - Final 12/11/22 00:42 Nasal Secretion SARS-CoV-2 Antigen (Rapid) - Final Radiography Diagnostic Testing: Radiology Impression Chest X-Ray 12/11/22 01:00 IMPRESSION: Pulmonary vascular congestion. Electronically Signed: Bhargavi Kennedy MD at 1:47 EDT Reading Location ID and State: [address] [address] , Service support , Physical Exam Narrative General: Alert, Oriented x3, Cooperative, mild respiratory distress HEENT: Atraumatic, PERRLA, EOMI, Normocephalic Oral: Moist Mucosa Neck: Supple, No JVD Lungs: Diminished, Normal air movement, No rhonchi, bilateral wheeze, No rales, tachypnea Cardiovascular: Tachycardic, Regular Rhythm, Normal S1, Normal S2, No murmurs Abdomen: Soft, Non Tender, Non-Distended, No Hepato-splenomegaly Extremities: No edema, Capillary Refill Less than 3 Seconds Skin: No rashes, No breakdown Musculoskeletal: No Tenderness to Palpation of Joints or Extremities Neurological: Cranial nerves II-XII grossly intact, Motor Exam 5/5 strength throughout, Sensory exam intact to light touch and pain Psych/Mental Status: Normal Affect, Appropriate Assessment & Plan Assessment/Plan (1) COPD exacerbation: PLAN: Plan 1. Acute hypoxic respiratory failure secondary to COPD exacerbation possible heart failure unclear type/known lung nodules ? No sepsis no infection at this time ? Continue with inhalers and steroids ? BNP is elevated so we will obtain an echo ? Resume outpatient follow-up for his lung nodules 2. CAD status post CABG and stent/HTN/HLD/history of CVA with carotid disease ? Blood pressures are stable ? We will continue with his home blood pressure medication ? Continue with Lipitor ? Continue with Plavix 3. DM2 ? We will hold his home metformin ? Sliding scale insulin ? Accu-Cheks ACHS ? We will make adjustments as necessary 4. Anxiety/depression ? Stable ? Continue with his home Zoloft DVT: Lovenox Charges/Coding Visit Charges Inpatient E&M: 55267 Subs Hosp L2
[2022-12-12 11:20] LABS: Bedside Glucose 260 mg/dL (74-106)
[2022-12-12 16:50] LABS: Bedside Glucose 244 mg/dL (74-106)
--- NOTE | 2022-12-12 20:33 | NURSING ---
Patient was coughing a lot, desated to 82% on 5L high flow. Increased O2 to 10L high flow for approximately 10 minutes while patient recovered.
[2022-12-12] MEDS: Atorvastatin Calcium 80 MG Tablet PO (20:51)
[2022-12-12] MEDS: guaiFENesin 10 ML UDC (200MG/10ML) 20 ML PO (20:52)
[2022-12-12] MEDS: MELATONIN 3 MG TABLET PO (20:52)
[2022-12-12 21:41] LABS: Bedside Glucose 230 mg/dL (74-106)
[2022-12-13] VITALS (24 sets, daily range): BP systolic 133–170; BP diastolic 60–83; PULSE 77–114; RESP 20–30; TEMP 36.4–36.7; O2SAT 79–100; BMI 23.4
[2022-12-13] MEDS: guaiFENesin 10 ML UDC (200MG/10ML) 20 ML PO ×5 (02:12→23:23)
[2022-12-13] MEDS: Albuterol 2.5 MG/3 ML VIAL.NEB. INHALATION (02:27)
--- NOTE | 2022-12-13 06:06 | NURSING ---
Patient was 78% on 5L high flow; however, had one NC out of his nares. Patient increased to 12L high flow while he recovered.
[2022-12-13] MEDS: Methylprednisolone Sod Succ 40 MG/ML VIAL IV ×3 (06:11→23:27)
[2022-12-13] MEDS: 0.9% Saline Lock 10 ML Syringe IV ×4 (06:18→17:14)
[2022-12-13] MEDS: Insulin Lispro 100 UNIT/ML INSULN.PEN SC ×4 (06:18→23:27)
[2022-12-13] MEDS: Metoprolol Tartrate 50 MG Tablet PO ×2 (06:25→23:23)
[2022-12-13] MEDS: amLODIPine 5 MG Tablet PO (06:26)
--- NOTE | 2022-12-13 06:33 | NURSING ---
After coughing patient required 12L high flow to maintain sats >90%.
[2022-12-13 06:39] LABS: Anion Gap 2 (5-15); BUN 36 mg/dL (7-18); Calcium,Total 9.1 mg/dL (8.5-10.1); Chloride 106 mmol/L (98-107); EST Glomerular Filtration Rate 63 mL/min (>60); Est Glom Filt Rate - Afr Amer 77 mL/min (>60); Estimated Creatinine Clearance 65.65 ml/min; Glucose 196 mg/dL (74-106); Potassium 5.1 mmol/L (3.5-5.1); Sodium Level 139 mmol/L (136-145)
[2022-12-13 07:05] LABS: Bedside Glucose 186 mg/dL (74-106)
[2022-12-13] MEDS: Ipratropium/Albuterol Sulfate 3 ML AMPUL.NEB INHALATION ×4 (07:26→19:46)
[2022-12-13] MEDS: Furosemide 40 MG/4 ML Vial IV ×2 (07:31→17:14)
--- NOTE | 2022-12-13 08:44 | PCM.PN.HOSP ---
Subjective Subjective Doing well, he is slowly climbed up on his oxygen requirements. Objective Data Objective Data Vital Signs: Vital Signs Temp Pulse Resp BP Pulse Ox O2 Del Method O2 Flow Rate 97.6 F L 77 23 H 170/83 H 100 High Flow 6 12/13/22 06:24 12/13/22 08:13 12/13/22 08:13 12/13/22 06:25 12/13/22 08:13 12/13/22 08:13 12/13/22 08:13 Oxygen Flow Rate (L/min) 6 Oxygen Delivery Method High Flow Weight: 182 lb 12.211 oz Body Mass Index (BMI) 23.4 Intake & Output: Intake and Output for Last 24 Hours 12/12/22 12/13/22 12/14/22 03:59 03:59 03:59 Intake Total 2105.83 / 2105.83 480 / 480 Output Total 200 / 200 Balance 2105.83 / 2105.83 480 / 480 -200 / -200 Lab / Micro Data Result Diagrams: 12/12/22 06:00 12/13/22 05:57 Labs: Laboratory Results - last 24 hr 12/12/22 06:00: B-Natriuretic Peptide 485.3 H 12/12/22 11:02: POC Glucose 260 H 12/12/22 16:25: POC Glucose 244 H 12/12/22 20:47: POC Glucose 230 H 12/13/22 05:57: Sodium 139, Potassium 5.1, Chloride 106, Carbon Dioxide 31.0, Anion Gap 2 L, BUN 36 H, Creatinine 1.20, Estim Creat Clear Calc 65.65, Est GFR (MDRD) Af Amer 77, Est GFR (MDRD) Non-Af 63, BUN/Creatinine Ratio 30.0 H, Glucose 196 H, Calcium 9.1 12/13/22 06:16: POC Glucose 186 H Micro: Microbiology 12/11/22 03:32 Urine, Clean Catch Urine Culture - Preliminary Culture exhibits no growth. 12/11/22 02:48 Mucosa - Nose Respiratory Panel (PCR) - Final 12/11/22 03:32 Urine, Clean Catch Legionella Antigen - Final 12/11/22 03:32 Urine, Clean Catch Streptococcus pneumoniae Antigen (M - Final 12/11/22 00:42 Nasal Secretion SARS-CoV-2 Antigen (Rapid) - Final Radiography Diagnostic Testing: Radiology Impression Echocardiogram 12/12/22 09:03 Interpretation Summary The estimated ejection fraction is 55-60 %. Stage I diastolic dysfunction Normal LV systolic function Mild to moderate MR Ordering Physician: Josh Linn Performed By: Momo Arango RCS Physical Exam Narrative General: Alert, Oriented x3, Cooperative, mild respiratory distress HEENT: Atraumatic, PERRLA, EOMI, Normocephalic Oral: Moist Mucosa Neck: Supple, No JVD Lungs: Diminished, Normal air movement, No rhonchi, bilateral wheeze, No rales, tachypnea Cardiovascular: Regular rate, Regular Rhythm, Normal S1, Normal S2, No murmurs Abdomen: Soft, Non Tender, Non-Distended, No Hepato-splenomegaly Extremities: No edema, Capillary Refill Less than 3 Seconds Skin: No rashes, No breakdown Musculoskeletal: No Tenderness to Palpation of Joints or Extremities Neurological: Cranial nerves II-XII grossly intact, Motor Exam 5/5 strength throughout, Sensory exam intact to light touch and pain Psych/Mental Status: Normal Affect, Appropriate Assessment & Plan Assessment/Plan (1) COPD exacerbation: PLAN: Plan 1. Acute hypoxic respiratory failure secondary to COPD exacerbation possible heart failure unclear type/known lung nodules ? No sepsis no infection at this time ? Continue with inhalers and steroids ? BNP is elevated with stage I diastolic dysfunction given his increasing oxygen requirements we will trial him on a dose of Lasix ? Resume outpatient follow-up for his lung nodules 2. CAD status post CABG and stent/HTN/HLD/history of CVA with carotid disease ? Blood pressures are stable ? We will continue with his home blood pressure medication ? Continue with Lipitor ? Continue with Plavix 3. DM2 ? We will hold his home metformin ? Sliding scale insulin ? Accu-Cheks ACHS ? We will make adjustments as necessary 4. Anxiety/depression ? Stable ? Continue with his home Zoloft DVT: Lovenox Charges/Coding Visit Charges Inpatient E&M: 29504 Subs Hosp L2
[2022-12-13] MEDS: Sertraline 100 MG Tablet PO (10:48)
[2022-12-13] MEDS: Enoxaparin 40 MG/0.4 ML Syringe SC (10:48)
[2022-12-13] MEDS: Primidone 50 MG Tablet PO ×2 (10:49→17:18)
[2022-12-13] MEDS: Clopidogrel Bisulfate 75 MG Tablet PO (10:49)
--- NOTE | 2022-12-13 13:16 | CASEMGMT ---
Addendum entered by Park Wright 12/13/22 15:05: Received tc back from Silvina at [facility], they are able to start care on . Pt updated. Addendum entered by Park Wright 12/13/22 14:41: JOE BOLDEN into pt room, pt has chosen [facility]. TC to Silvina at [facility], referral made, will await acceptance. Addendum entered by Park Wright 12/13/22 13:47: Patient was provided a list of [facility] providers including quality and resource use data and consistent with the patient?s preferred geographic region, medical needs, and insurance network were provided from the [employer] Guide. Pt to review and RN KIMI to check back on preferences. Original Note: JOE BOLDEN into pt room, pt sitting up in bed with oxygen on. Discussed [facility] SN to monitor pt post dc, pt agreeable to this. Discussed expectations of [facility]. Pt does not have a pox and is not sure he can afford. Will place one on chart with green sheet for oxgyen should pt dc over the w/e.
[2022-12-13 14:56] LABS: Bedside Glucose 334 mg/dL (74-106)
[2022-12-13 17:45] LABS: Bedside Glucose 199 mg/dL (74-106)
[2022-12-13] MEDS: Atorvastatin Calcium 80 MG Tablet PO (23:23)
[2022-12-13] MEDS: MELATONIN 3 MG TABLET PO (23:23)
[2022-12-14] VITALS (19 sets, daily range): BP systolic 143–156; BP diastolic 64–96; PULSE 81–108; RESP 18–32; TEMP 36.8–37.4; O2SAT 81–98; BMI 23.1
[2022-12-14 00:15] LABS: Bedside Glucose 277 mg/dL (74-106)
[2022-12-14] MEDS: Methylprednisolone Sod Succ 40 MG/ML VIAL IV ×3 (04:48→21:41)
[2022-12-14] MEDS: guaiFENesin 10 ML UDC (200MG/10ML) 20 ML PO (04:48)
[2022-12-14] MEDS: Albuterol 2.5 MG/3 ML VIAL.NEB. INHALATION (04:56)
[2022-12-14 05:16] LABS: Bedside Glucose 159 mg/dL (74-106)
[2022-12-14 06:38] LABS: Anion Gap 3 (5-15); BUN 37 mg/dL (7-18); BUN/Creat Ratio 30.6 RATIO (10-20); Calcium,Total 8.7 mg/dL (8.5-10.1); Chloride 101 mmol/L (98-107); Creatinine, Serum 1.21 mg/dL (0.70-1.30); EST Glomerular Filtration Rate 63 mL/min (>60); Est Glom Filt Rate - Afr Amer 76 mL/min (>60); Estimated Creatinine Clearance 64.71 ml/min; Glucose 161 mg/dL (74-106); Potassium 4.9 mmol/L (3.5-5.1); Sodium Level 139 mmol/L (136-145)
[2022-12-14] MEDS: Insulin Lispro 100 UNIT/ML INSULN.PEN SC ×4 (06:54→21:45)
--- NOTE | 2022-12-14 08:18 | PCM.PN.HOSP ---
Subjective Subjective Doing well, no issues overnight breathing little bit better after the 2 doses of Lasix yesterday renal function is stable Objective Data Objective Data Vital Signs: Vital Signs Temp Pulse Resp BP Pulse Ox O2 Del Method O2 Flow Rate 98.7 F 92 24 H 150/64 H 93 Nasal Cannula 3 12/14/22 06:48 12/14/22 06:48 12/14/22 06:48 12/14/22 06:48 12/14/22 07:47 12/14/22 07:47 12/14/22 07:47 Oxygen Flow Rate (L/min) 3 Oxygen Delivery Method Nasal Cannula Weight: 180 lb 1.883 oz Body Mass Index (BMI) 23.1 Intake & Output: Intake and Output for Last 24 Hours 12/13/22 12/14/22 12/15/22 03:59 03:59 03:59 Intake Total 480 / 480 740 / 740 100 / 100 Output Total 2825 / 2825 275 / 275 Balance 480 / 480 -2085 / -2085 -175 / -175 Lab / Micro Data Result Diagrams: 12/12/22 06:00 12/14/22 04:35 Labs: Laboratory Results - last 24 hr 12/13/22 10:59: POC Glucose 334 H 12/13/22 17:16: POC Glucose 199 H 12/13/22 23:26: POC Glucose 277 H 12/14/22 04:35: Sodium 139, Potassium 4.9, Chloride 101, Carbon Dioxide 35.0 H, Anion Gap 3 L, BUN 37 H, Creatinine 1.21, Estim Creat Clear Calc 64.71, Est GFR (MDRD) Af Amer 76, Est GFR (MDRD) Non-Af 63, BUN/Creatinine Ratio 30.6 H, Glucose 161 H, Calcium 8.7 12/14/22 04:52: POC Glucose 159 H Micro: Microbiology 12/11/22 01:02 Blood Culture (Wb) #2 - Left Forearm Blood Culture - Preliminary No growth in 48 hours. 12/11/22 00:36 Blood Culture (Wb) - Left Forearm Blood Culture - Preliminary No growth in 48 hours. 12/11/22 03:32 Urine, Clean Catch Urine Culture - Final Mixed Gram Positive Organisms 12/11/22 02:48 Mucosa - Nose Respiratory Panel (PCR) - Final 12/11/22 03:32 Urine, Clean Catch Legionella Antigen - Final 12/11/22 03:32 Urine, Clean Catch Streptococcus pneumoniae Antigen (M - Final 12/11/22 00:42 Nasal Secretion SARS-CoV-2 Antigen (Rapid) - Final Physical Exam Narrative General: Alert, Oriented x3, Cooperative, mild respiratory distress HEENT: Atraumatic, PERRLA, EOMI, Normocephalic Oral: Moist Mucosa Neck: Supple, No JVD Lungs: Diminished, Normal air movement, No rhonchi, bilateral wheeze, No rales, tachypnea Cardiovascular: Regular rate, Regular Rhythm, Normal S1, Normal S2, No murmurs Abdomen: Soft, Non Tender, Non-Distended, No Hepato-splenomegaly Extremities: No edema, Capillary Refill Less than 3 Seconds Skin: No rashes, No breakdown Musculoskeletal: No Tenderness to Palpation of Joints or Extremities Neurological: Cranial nerves II-XII grossly intact, Motor Exam 5/5 strength throughout, Sensory exam intact to light touch and pain Psych/Mental Status: Normal Affect, Appropriate Assessment & Plan Assessment/Plan (1) COPD exacerbation: PLAN: Plan 1. Acute hypoxic respiratory failure secondary to COPD exacerbation acute diastolic CHF/known lung nodules ? No sepsis no infection at this time ? Continue with inhalers and steroids ? BNP is elevated with stage I diastolic dysfunction ? Oxygenation has improved with diuresis, will continue with diuresis this is likely indicative of symptomatic diastolic CHF, will likely need diuresis on discharge ? Resume outpatient follow-up for his lung nodules 2. CAD status post CABG and stent/HTN/HLD/history of CVA with carotid disease ? Blood pressures are stable ? We will continue with his home blood pressure medication ? Continue with Lipitor ? Continue with Plavix 3. DM2 ? We will hold his home metformin ? Sliding scale insulin ? Accu-Cheks ACHS ? We will make adjustments as necessary 4. Anxiety/depression ? Stable ? Continue with his home Zoloft DVT: Lovenox Charges/Coding Visit Charges Inpatient E&M: 09984 Subs Hosp L2
[2022-12-14] MEDS: Furosemide 40 MG/4 ML Vial IV (08:25)
[2022-12-14] MEDS: 0.9% Saline Lock 10 ML Syringe IV ×2 (08:25→21:43)
[2022-12-14] MEDS: Primidone 50 MG Tablet PO ×2 (08:26→16:44)
[2022-12-14] MEDS: Metoprolol Tartrate 50 MG Tablet PO ×2 (10:26→21:39)
[2022-12-14] MEDS: amLODIPine 5 MG Tablet PO (10:26)
[2022-12-14] MEDS: Enoxaparin 40 MG/0.4 ML Syringe SC (10:26)
[2022-12-14] MEDS: Clopidogrel Bisulfate 75 MG Tablet PO (10:27)
[2022-12-14] MEDS: Sertraline 100 MG Tablet PO (10:27)
[2022-12-14] MEDS: Ipratropium/Albuterol Sulfate 3 ML AMPUL.NEB INHALATION ×3 (10:54→19:31)
[2022-12-14 11:55] LABS: Bedside Glucose 313 mg/dL (74-106)
[2022-12-14 16:51] LABS: Bedside Glucose 172 mg/dL (74-106)
[2022-12-14] MEDS: Atorvastatin Calcium 80 MG Tablet PO (21:39)
[2022-12-14 22:21] LABS: Bedside Glucose 311 mg/dL (74-106)
[2022-12-15] VITALS (13 sets, daily range): BP systolic 115–165; BP diastolic 50–78; PULSE 70–95; RESP 16–20; TEMP 36.3–36.8; O2SAT 92–97; BMI 22.7
[2022-12-15] MEDS: Ibuprofen 400 MG Tablet PO ×2 (00:10→23:14)
[2022-12-15] MEDS: MELATONIN 3 MG TABLET PO ×2 (00:10→22:58)
[2022-12-15] MEDS: Methylprednisolone Sod Succ 40 MG/ML VIAL IV ×3 (06:11→23:00)
[2022-12-15] MEDS: 0.9% Saline Lock 10 ML Syringe IV ×2 (06:12→13:20)
[2022-12-15] MEDS: Insulin Lispro 100 UNIT/ML INSULN.PEN SC ×4 (06:16→22:59)
[2022-12-15 06:40] LABS: Bedside Glucose 193 mg/dL (74-106)
[2022-12-15 06:46] LABS: Anion Gap 3 (5-15); BUN 37 mg/dL (7-18); BUN/Creat Ratio 28.5 RATIO (10-20); Calcium,Total 8.9 mg/dL (8.5-10.1); Chloride 95 mmol/L (98-107); EST Glomerular Filtration Rate 58 mL/min (>60); Est Glom Filt Rate - Afr Amer 70 mL/min (>60); Estimated Creatinine Clearance 59.25 ml/min; Glucose 207 mg/dL (74-106); Potassium 4.8 mmol/L (3.5-5.1); Sodium Level 137 mmol/L (136-145)
[2022-12-15] MEDS: Ipratropium/Albuterol Sulfate 3 ML AMPUL.NEB INHALATION ×3 (07:03→19:31)
[2022-12-15] MEDS: amLODIPine 5 MG Tablet PO (08:49)
[2022-12-15] MEDS: Primidone 50 MG Tablet PO ×2 (08:49→17:42)
[2022-12-15] MEDS: Clopidogrel Bisulfate 75 MG Tablet PO (08:50)
[2022-12-15] MEDS: Enoxaparin 40 MG/0.4 ML Syringe SC (08:50)
[2022-12-15] MEDS: Metoprolol Tartrate 50 MG Tablet PO ×2 (08:50→22:58)
[2022-12-15] MEDS: Sertraline 100 MG Tablet PO (08:51)
--- NOTE | 2022-12-15 10:54 | PN.HOSP_ITS ---
Reason for Visit Reason for Visit: Diagnoses Chronic obstructive pulmonary disease with (acute) exacerbation (12/11/22) Subjective Subjective Patient was seen and examined today, he does not complain of any shortness of breath at rest. He is currently on 2 L of nasal cannula oxygen. Objective Data Objective Data Vital Signs: Vital Signs Temp Pulse Resp BP Pulse Ox O2 Del Method O2 Flow Rate 98.2 F 87 16 152/71 H 94 Nasal Cannula 2 12/15/22 08:35 12/15/22 08:50 12/15/22 08:35 12/15/22 08:50 12/15/22 08:35 12/15/22 08:39 12/15/22 08:35 Oxygen Flow Rate (L/min) 2 Oxygen Delivery Method Nasal Cannula Weight: 80.377 kg Body Mass Index (BMI) 22.7 Intake & Output: Intake and Output for Last 24 Hours 12/13/22 12/14/22 12/15/22 23:59 23:59 23:59 Intake Total 240 / 740 1100 / 1440 340 / 340 Output Total 2050 / 2825 1050 / 1750 825 / 825 Balance -1810 / -2085 50 / -310 -485 / -485 Lab / Micro Data Result Diagrams: 12/12/22 06:00 12/15/22 05:30 Labs: Laboratory Results - last 24 hr 12/14/22 11:34: POC Glucose 313 H 12/14/22 16:33: POC Glucose 172 H 12/14/22 21:45: POC Glucose 311 H 12/15/22 05:30: Sodium 137, Potassium 4.8, Chloride 95 L, Carbon Dioxide 39.0 H, Anion Gap 3 L, BUN 37 H, Creatinine 1.30, Estim Creat Clear Calc 59.25, Est GFR (MDRD) Af Amer 70, Est GFR (MDRD) Non-Af 58 L, BUN/Creatinine Ratio 28.5 H, Gl ucose 207 H, Calcium 8.9 12/15/22 06:15: POC Glucose 193 H Micro: Microbiology 12/11/22 01:02 Blood Culture (Wb) #2 - Left Forearm Blood Culture - Preliminary No growth in 48 hours. 12/11/22 00:36 Blood Culture (Wb) - Left Forearm Blood Culture - Preliminary No growth in 48 hours. 12/11/22 03:32 Urine, Clean Catch Urine Culture - Final Mixed Gram Positive Organisms 12/11/22 02:48 Mucosa - Nose Respiratory Panel (PCR) - Final 12/11/22 03:32 Urine, Clean Catch Legionella Antigen - Final 12/11/22 03:32 Urine, Clean Catch Streptococcus pneumoniae Antigen (M - Final 12/11/22 00:42 Nasal Secretion SARS-CoV-2 Antigen (Rapid) - Final Physical Exam Const alert, oriented x3, no apparent distress and healthy appearing General Appearance: cooperative, well kempt and well developed Orientation / Consciousness: awake, oriented to person, oriented to place and oriented to time HEENT normocephalic, head/scalp atraumatic and moist oral mucous membranes Eyes PERRL, EOMs intact bilaterally and conjunctivae normal Neck supple, no JVD, thyroid normal and no carotid bruits General: trachea midline Resp normal respiratory effort, no retractions and no use of accessory muscles Resp Narrative: Expiratory wheezes are noted to be present over all lung kahn bilaterally Auscultation: wheezes throughout; Negative for rales or rhonchi Cardio regular rate, regular rhythm, S1 normal heart sound, S2 normal heart sound, no murmurs, no rub and no gallops GI normal to inspection, nondistended, normoactive bowel sounds, soft to palpation, non-tender and non-distended Extremity no clubbing, cyanosis or edema Skin no rashes or lesions noted General Skin Exam: no breakdown Neuro oriented x3, CN's II-XII intact bilaterally, moves all extremities, no focal motor deficits and no sensory deficits noted Sensorium / Orientation: awake, alert, oriented to person, oriented to place and oriented to time Speech: speech normal Psych affect normal Assessment & Plan Assessment/Plan (1) COPD exacerbation: PLAN: Plan 1. Acute hypoxic respiratory failure secondary to COPD exacerbation and acute diastolic CHF-patient's oxygen requirement has improved, continue present treatment, wean oxygen as tolerated #2 exacerbation of COPD-patient will remain on inhalers and steroids #3 acute diastolic CHF-patient will continue diuresis #4 coronary artery disease-complicates care, medical course, recovery, and prognosis, patient remains on a statin, Plavix, and metoprolol #5 type 2 diabetes-patient is on sliding scale insulin and Accu-Cheks #6 chronic depression-patient is on Zoloft #7 hyperlipidemia-patient is on Lipitor Total clinical time spent by myself addressing patient's medical issues, reviewing all of his data, and collaborating with patient's care team: 35 minutes Charges/Coding Visit Charges Inpatient E&M: 17588 Subs Hosp L2
[2022-12-15 12:21] LABS: Bedside Glucose 323 mg/dL (74-106)
[2022-12-15 16:21] LABS: Bedside Glucose 188 mg/dL (74-106)
[2022-12-15] MEDS: Atorvastatin Calcium 80 MG Tablet PO (22:59)
[2022-12-15 23:46] LABS: Bedside Glucose 300 mg/dL (74-106)
[2022-12-16] VITALS (12 sets, daily range): BP systolic 117–148; BP diastolic 50–65; PULSE 72–96; RESP 14–22; TEMP 36.5–36.9; O2SAT 84–96; BMI 22.5; BMI 22.6
[2022-12-16] MEDS: Methylprednisolone Sod Succ 40 MG/ML VIAL IV ×3 (05:05→21:06)
[2022-12-16] MEDS: 0.9% Saline Lock 10 ML Syringe IV ×3 (05:07→21:08)
[2022-12-16] MEDS: Insulin Lispro 100 UNIT/ML INSULN.PEN SC ×4 (06:25→21:02)
[2022-12-16] MEDS: Ipratropium/Albuterol Sulfate 3 ML AMPUL.NEB INHALATION ×3 (07:02→19:55)
[2022-12-16 07:10] LABS: Bedside Glucose 234 mg/dL (74-106)
[2022-12-16] MEDS: Clopidogrel Bisulfate 75 MG Tablet PO (10:08)
[2022-12-16] MEDS: Senna/Docusate Sodium 1 Tablet 2 TABLET PO (10:09)
[2022-12-16] MEDS: Enoxaparin 40 MG/0.4 ML Syringe SC (10:09)
[2022-12-16] MEDS: Primidone 50 MG Tablet PO ×2 (10:09→17:46)
[2022-12-16] MEDS: amLODIPine 5 MG Tablet PO (10:10)
[2022-12-16] MEDS: Sertraline 100 MG Tablet PO (10:10)
[2022-12-16] MEDS: Metoprolol Tartrate 50 MG Tablet PO ×2 (10:10→21:05)
[2022-12-16 12:25] LABS: Bedside Glucose 385 mg/dL (74-106)
--- NOTE | 2022-12-16 15:21 | CASEMGMT ---
Provided pt nurse with pox for pt homegoing.
--- NOTE | 2022-12-16 16:18 | RAD_ITS ---
INDICATION: Hypoxia EXAMINATION/TECHNIQUE: X-RAY - XR Chest 2 Views COMPARISON: 11/15/2015, 12/11/2022 FINDINGS: LUNGS: Bilateral lung base scarring/atelectasis. Chronically coarsened lung markings No consolidation, edema or effusion. No pneumothorax. MEDIASTINUM AND CARDIOVASCULAR STRUCTURES: Cardiac silhouette not enlarged. Central airways and mediastinal contour are unremarkable. RAD/Chest PA and Lateral IMPRESSION: Chronic lung disease. No acute abnormal cardiopulmonary finding. Electronically Signed: Boris Urbina MD at 16:59 EDT ,
[2022-12-16] MEDS: Furosemide 40 MG Tablet PO (17:51)
[2022-12-16 18:20] LABS: Bedside Glucose 187 mg/dL (74-106)
--- NOTE | 2022-12-16 19:01 | PCM.PN.HOSP ---
Reason for Visit Reason for Visit: Diagnoses Chronic obstructive pulmonary disease with (acute) exacerbation (12/11/22) Subjective Subjective Patient was seen and examined today, he required 6 L of oxygen ambulating and 2 L at rest. I did a chest x-ray today which showed evidence of scarring, I ordered a noncontrasted CAT scan of the chest today to further delineate the patient's lung disease. I decided to place the patient on some oral diuretics to see if this would improve his oxygenation. Objective Data Objective Data Vital Signs: Vital Signs Temp Pulse Resp BP Pulse Ox O2 Del Method O2 Flow Rate 98.5 F 78 20 H 148/65 H 93 Nasal Cannula 2 12/16/22 17:52 12/16/22 17:52 12/16/22 17:52 12/16/22 17:52 12/16/22 17:52 12/16/22 17:52 12/16/22 17:52 Oxygen Flow Rate (L/min) [ 6 AMBULATING with Oxygen #3] Oxygen Flow Rate (L/min) [ 4 AMBULATING with Oxygen #2] Oxygen Flow Rate (L/min) [ 2 AMBULATING with Oxygen #1] Oxygen Flow Rate (L/min) [At 0 REST on Room Air] Oxygen Flow Rate (L/min) [At 2 REST with Oxygen] Oxygen Flow Rate (L/min) 2 Oxygen Delivery Method Nasal Cannula Weight: 80.2 kg Body Mass Index (BMI) 22.6 Intake & Output: Intake and Output for Last 24 Hours 12/14/22 12/15/22 12/16/22 23:59 23:59 23:59 Intake Total 1100 / 1440 780 / 780 1030 / 1030 Output Total 1050 / 1750 1200 / 1200 1025 / 1025 Balance 50 / -310 -420 / -420 5 / 5 Lab / Micro Data Result Diagrams: 12/12/22 06:00 12/15/22 05:30 Labs: Laboratory Results - last 24 hr 12/15/22 22:52: POC Glucose 300 H 12/16/22 06:24: POC Glucose 234 H 12/16/22 12:07: POC Glucose 385 H 12/16/22 17:43: POC Glucose 187 H Micro: Microbiology 12/16/22 15:15 Stool Stool Occult Blood (MARY) - Final 12/11/22 01:02 Blood Culture (Wb) #2 - Left Forearm Blood Culture - Final No growth in 5 days. 12/11/22 00:36 Blood Culture (Wb) - Left Forearm Blood Culture - Final No growth in 5 days. 12/11/22 03:32 Urine, Clean Catch Urine Culture - Final Mixed Gram Positive Organisms 12/11/22 02:48 Mucosa - Nose Respiratory Panel (PCR) - Final 12/11/22 03:32 Urine, Clean Catch Legionella Antigen - Final 12/11/22 03:32 Urine, Clean Catch Streptococcus pneumoniae Antigen (M - Final 12/11/22 00:42 Nasal Secretion SARS-CoV-2 Antigen (Rapid) - Final Radiography Diagnostic Testing: Radiology Impression Chest X-Ray 12/16/22 16:18 IMPRESSION: Chronic lung disease. No acute abnormal cardiopulmonary finding. Electronically Signed: Boris Urbina MD at 16:59 EDT , Physical Exam Narrative alert, oriented x3, no apparent distress and healthy appearing General Appearance: cooperative, well kempt and well developed Orientation / Consciousness: awake, oriented to person, oriented to place and oriented to time HEENT normocephalic, head/scalp atraumatic and moist oral mucous membranes Eyes PERRL, EOMs intact bilaterally and conjunctivae normal Neck supple, no JVD, thyroid normal and no carotid bruits General: trachea midline Resp normal respiratory effort, no retractions and no use of accessory muscles Resp Narrative: Expiratory wheezes (mild) are noted to be present over all lung kahn bilaterally Auscultation: Mild wheezes throughout; Negative for rales or rhonchi, breath sounds are diminished bilaterally Cardio regular rate, regular rhythm, S1 normal heart sound, S2 normal heart sound, no murmurs, no rub and no gallops GI normal to inspection, nondistended, normoactive bowel sounds, soft to palpation, non-tender and non-distended Extremity no clubbing, cyanosis or edema Skin no rashes or lesions noted General Skin Exam: no breakdown Neuro oriented x3, CN's II-XII intact bilaterally, moves all extremities, no focal motor deficits and no sensory deficits noted Sensorium / Orientation: awake, alert, oriented to person, oriented to place and oriented to time Speech: speech normal Psych affect normal Assessment & Plan Assessment/Plan (1) COPD exacerbation: PLAN: Plan 1. Acute hypoxic respiratory failure secondary to COPD exacerbation and acute diastolic CHF-patient's oxygen requirement has improved, continue present treatment, wean oxygen as tolerated, patient will undergo a noncontrasted chest CT #2 exacerbation of COPD-patient will remain on inhalers and steroids #3 acute diastolic CHF-patient will continue diuresis with oral diuretics #4 coronary artery disease-complicates care, medical course, recovery, and prognosis, patient remains on a statin, Plavix, and metoprolol #5 type 2 diabetes-patient is on sliding scale insulin and Accu-Cheks #6 chronic depression-patient is on Zoloft #7 hyperlipidemia-patient is on Lipitor Total clinical time spent by myself addressing patient's medical issues, reviewing all of his data, and collaborating with patient's care team: 37 minutes Charges/Coding Visit Charges Inpatient E&M: 35017 Subs Hosp L2
--- NOTE | 2022-12-16 19:35 | CT_ITS ---
INDICATION: Hypoxia, COPD EXAMINATION: CT CHEST WITHOUT CONTRAST - CT Chest W/O Contrast Injection TECHNIQUE: Helically acquired images were obtained of the chest. A radiation dose optimization technique was used for this scan. IV Contrast dosage and agent: None. RADIATION DOSAGE (If Supplied By Facility): CTDIvol = ( 14.61 ) mGy, DLP = ( 569.45 ) mGycm COMPARISON: Same day chest x-ray FINDINGS: LUNGS, PLEURA AND LARGE AIRWAYS: Right more than left lower lung peripheral scarring. Nodularity of the right lateral lung base. Emphysematous change. No consolidation or edema. No pleural effusion or thickening. No pneumothorax. THYROID: No thyroid lesions. HEART AND PERICARDIUM: Heart size is normal. No pericardial effusion. CORONARY ARTERIES: Coronary artery calcifications with CABG. VESSELS: Thoracic aorta is not dilated. MEDIASTINUM AND JASBIR: No mediastinal or hilar adenopathy. Esophagus is unremarkable. No hiatal hernia. UPPER ABDOMEN: No acute pathology. BONES: Degenerative changes throughout the thoracic spine. CT/Chest without Contrast IMPRESSION: Right lateral lung base nodularity is suspicious for cancer versus infection. Chronic lung disease. Electronically Signed: Boris Urbina MD at 20:01 EDT ,
[2022-12-16] MEDS: Atorvastatin Calcium 80 MG Tablet PO (21:05)
[2022-12-16] MEDS: MELATONIN 3 MG TABLET PO (22:54)
[2022-12-16 23:51] LABS: Bedside Glucose 377 mg/dL (74-106)
[2022-12-17] VITALS (7 sets, daily range): BP systolic 137–145; BP diastolic 57–73; PULSE 69–86; RESP 18–20; TEMP 36.4–36.8; O2SAT 86–96; BMI 22.6
[2022-12-17] MEDS: 0.9% Saline Lock 10 ML Syringe IV ×2 (00:19→06:35)
[2022-12-17] MEDS: levoFLOXacin IV 500 MG/100 ML BAG 100 MG IV (00:19)
[2022-12-17] MEDS: Methylprednisolone Sod Succ 40 MG/ML VIAL IV (06:35)
[2022-12-17] MEDS: Insulin Lispro 100 UNIT/ML INSULN.PEN SC ×2 (06:37→11:36)
[2022-12-17] MEDS: Ipratropium/Albuterol Sulfate 3 ML AMPUL.NEB INHALATION ×2 (06:46→11:14)
[2022-12-17 07:20] LABS: Bedside Glucose 253 mg/dL (74-106)
[2022-12-17 07:47] LABS: Anion Gap 3 (5-15); BUN 33 mg/dL (7-18); BUN/Creat Ratio 26.2 RATIO (10-20); Calcium,Total 8.5 mg/dL (8.5-10.1); Chloride 95 mmol/L (98-107); Creatinine, Serum 1.26 mg/dL (0.70-1.30); EST Glomerular Filtration Rate 60 mL/min (>60); Est Glom Filt Rate - Afr Amer 73 mL/min (>60); Glucose 258 mg/dL (74-106); Potassium 4.7 mmol/L (3.5-5.1); Sodium Level 137 mmol/L (136-145)
[2022-12-17] MEDS: Primidone 50 MG Tablet PO (09:06)
[2022-12-17] MEDS: Enoxaparin 40 MG/0.4 ML Syringe SC (09:06)
[2022-12-17] MEDS: Metoprolol Tartrate 50 MG Tablet PO (09:06)
[2022-12-17] MEDS: amLODIPine 5 MG Tablet PO (09:07)
[2022-12-17] MEDS: Clopidogrel Bisulfate 75 MG Tablet PO (09:07)
[2022-12-17] MEDS: Sertraline 100 MG Tablet PO (09:07)
--- NOTE | 2022-12-17 09:36 | CON.PCM.CC_ITS ---
Assessment & Plan Assessment/Plan (1) COPD exacerbation: PLAN: Plan RECOMMENDATIONS: 1. Okay to discontinue diuretics 2. Obtain walking oximetry. Supplemental oxygen if necessary 3. Outpatient follow-up with nurse practitioner in pulmonary for PFT and repeat walking oximetry 4. Encourage smoking cessation 5. Transition to prednisone therapy and wean over the next 12 to 14 days 6. Complete a total of 5 days of antibiotics 7. Okay to discharge from a pulmonary perspective IMPRESSIONS: 1. Acute hypoxic respiratory insufficiency secondary to probable COPD exacerbation Patient with significant emphysematous changes and some scarring noted on CT scan of the chest. Patient does not have any infiltrate and subjectively feels okay. Clinical suspicion is for relatively advanced COPD leading to hypoxia with exacerbation. Okay to obtain a walking oximetry and discharged on necessary supplemental oxygen. Patient likely can complete 5 days of antibiotics in total and be transition to prednisone to wean over the next 12 to 14 days. Patient can be seen in our office in 2 weeks by nurse practitioner to obtain formal walking oximetry and complete PFT for quantification and clarification of overall lung function. 2. Acute diastolic CHF/CAD/hyperlipidemia Patient has developed a contraction alkalosis. Likely okay to discontinue diuretics for now. Patient should improve on his own, but this will have to be reevaluated as an outpatient. 3. Diabetes mellitus type 2/chronic depression/hyperlipidemia/advanced age/poor historian/tobacco abuse Complicates care, management, recovery and prognosis. Likely okay to reinitiate baseline diabetic medications. Patient should bring his to his outpatient visit to help with additional history. Patient would benefit from smoking cessation HPI Consult Data Date of Consult: 12/17/22 HPI Narrative HPI Narrative: KAM BROWN is a 72 M, with past medical history listed below, who presented to [facility] on 12/11/2022 secondary to shortness of breath, hypoxia, cough and congestion for the previous 2 to 3 days. Patient reportedly does have a significant cardiac history, but does not follow with a market risk specialist. Patient reportedly has a diagnosis of COPD, but does not wear supplemental oxygen at baseline. Patient does not have any CPAP or BiPAP at home. Patient reportedly does have a nebulizer with albuterol and has been using it every 4 to 5 days prior to presentation. Patient did not report any pitting edema. In the ER, patient was afebrile, but tachycardic and tachypneic. Patient was requiring 3 L nasal cannula to maintain saturations. Laboratory data at that time showed a white blood cell count of 11.3, hemoglobin of 11.7 and platelets of 237. Patient had normal coagulation studies, but a slightly elevated BNP at 278. Chemistry showed an elevated bicarbonate of 28 with a creatinine of 1.4 and a lactate of 2.1. LFTs were relatively unremarkable. An ABG at that time did show compensated respiratory acidosis with increased AA gradient. Patient was admitted to the floor and initiated on antibiotics, steroids and bronchodilators. Patient also received intermittent diuretics. Despite interventions, patient has persistent and requiring supplemental oxygen, so a pulmonary consult was obtained. On my evaluation, patient states he feels ready to go home. Patient readily admits that he is a poor historian and his was not at the bedside. Patient states he has not seen a correctional officer chief or had a PFT previously. Patient does state that he feels subjectively improved after his albuterol aerosols, but they do not last long. Patient does report an extensive smoking history and a cough every morning. Patient states he rarely produces sputum but if it is produced it is typically milky white to clear. Patient states he lives in a trailer and puts his exercise tolerance at 60 feet, but describes himself as relatively sedentary. Patient has not reported any significant lower extremity edema recently. No trauma has been reported. Review of systems otherwise negative from a constitutional, HEENT, respiratory, cardiovascular, GI, genitourinary, musculoskeletal, skin, neurologic, psychiatric and hematologic system unless stated above. PFSH Medical History CAD (coronary artery disease) COPD (chronic obstructive pulmonary disease) Diabetes mellitus, type 2 Essential tremor History of CVA (cerebrovascular accident) Hyperlipidemia Hypertension Stage 3a chronic kidney disease (CKD) Tobacco use Home Medications atorvastatin 80 mg tablet 80 mg PO QHS Check with primary doctor 03/24/16 [History Last Taken 12/10/22] clopidogrel 75 mg tablet 75 mg PO DAILY Check with primary doctor 03/24/16 [History Last Taken Unknown] metformin 1,000 mg tablet 1,000 mg PO BIDCM Check with primary doctor 03/24/16 [History Last Taken 12/10/22] metoprolol tartrate 50 mg tablet 50 mg PO BID Check with primary doctor 03/24/16 [History Last Taken 12/10/22] albuterol sulfate 2.5 mg/3 mL (0.083 %) solution for nebulization mg Check with primary doctor 12/11/22 [History Last Taken 12/10/22] amlodipine 5 mg tablet 5 mg PO DAILY Check with primary doctor 12/11/22 [History Last Taken 12/10/22] primidone 50 mg tablet 50 mg PO BID Check with primary doctor 12/11/22 [History Last Taken 12/10/22] sertraline 100 mg tablet 100 mg PO DAILY Check with primary doctor 12/11/22 [History Last Taken 12/10/22] Allergy/AdvReac Type Severity Reaction Status Date / Time acetaminophen [From Tylenol] Allergy Unknown Verified 12/11/22 00:12 morphine Allergy Other Verified 12/11/22 00:12 oyster extract Allergy Unknown Verified 12/11/22 00:12 lisinopril AdvReac Other Verified 12/11/22 00:12 Family History Mother Cancer Brain cancer, unclear type. Son Cancer Youngest son, metastatic testicular cancer. Father Heart disease Hypertension CVA (cerebral vascular accident) Surgical History H/O heart artery stent H/O right inguinal hernia repair S/P appendectomy S/P bilateral foot surgery S/P triple vessel bypass Social History household members: spouse Smoking Status: Former smoker how long ago did patient quit smoking: Smoked since 10/27/1967, up to 1 ppd, recent down to 1 pk/4-5 days. alcohol intake: current alcohol intake frequency: holidays/special occasions on ly substance use type: does not use ROS ROS Narrative See HPI Physical Exam Const alert, oriented x3 and no apparent distress Constitutional Narrative: Appears older than stated age General Appearance: cooperative, well developed and frail HEENT normocephalic, head/scalp atraumatic and moist oral mucous membranes Eyes PERRL and EOMs intact bilaterally Eyes Narrative: Glasses in place Neck full ROM and no lymphadenopathy Chest Chest Narrative: Increased AP diameter Resp Resp Narrative: No wheeze on forced exhalation Effort and Inspection: able to speak in complete sentences Auscultation: diminished lung sounds; Negative for rales, rhonchi or wheezes Percussion: Negative for dullness Cardio regular rate, regular rhythm, S1 normal heart sound, S2 normal heart sound, no murmurs, no rub and no gallops GI normal to inspection, nondistended, normoactive bowel sounds no CVA tenderness Extremity General Extremity: clubbing Skin no rashes or lesions noted Skin Narrative: Dermal atrophy appreciated Neuro oriented x3, CN's II-XII intact bilaterally, moves all extremities and no focal motor deficits Psych cooperative Mood & Affect: flat affect Medical Records Data Attestation: I reviewed the patient's medical records Lab / Micro Data Attestation: I reviewed the patient's lab results. Result Diagrams: 12/12/22 06:00 12/17/22 06:20 Labs: Laboratory Results - last 24 hr 12/16/22 12:07: POC Glucose 385 H 12/16/22 17:43: POC Glucose 187 H 12/16/22 21:01: POC Glucose 377 H 12/17/22 06:20: Sodium 137, Potassium 4.7, Chloride 95 L, Carbon Dioxide 39.0 H, Anion Gap 3 L, BUN 33 H, Creatinine 1.26, Estim Creat Clear Calc 61.00, Est GFR (MDRD) Af Amer 73, Est GFR (MDRD) Non-Af 60, BUN/Creatinine Ratio 26.2 H, Glucose 258 H, Calcium 8.5 12/17/22 06:32: POC Glucose 253 H Micro: Microbiology 12/16/22 15:15 Stool Stool Occult Blood (MARY) - Final 12/11/22 01:02 Blood Culture (Wb) #2 - Left Forearm Blood Culture - Final No growth in 5 days. 12/11/22 00:36 Blood Culture (Wb) - Left Forearm Blood Culture - Final No growth in 5 days. ABG Data Attestation: I personally reviewed and interpreted this ABG as follows: (See HPI) Radiology Impression Chest X-Ray 12/16/22 16:18 IMPRESSION: Chronic lung disease. No acute abnormal cardiopulmonary finding. Electronically Signed: Boris Urbina MD at 16:59 EDT , Chest CT 12/16/22 19:35 IMPRESSION: Right lateral lung base nodularity is suspicious for cancer versus infection. Chronic lung disease. Electronically Signed: Boris Urbina MD at 20:01 EDT , ADDENDUM: 12/16/22 2224 IMPRESSION: Right lateral lung base nodularity is suspicious for cancer versus infection. Chronic lung disease. N.B. : COLLEEN HERNANDEZ RN, confirmed on 12/16/2022 22:17:14 (ET) that the healthcare facility has received the radiology report. Electronically Signed: Boris Urbina MD at 20:01 EDT , Charges/Coding Visit Charges Inpatient E&M: 57331 Init Hosp L2
--- NOTE | 2022-12-17 10:29 | DCINST_ITS ---
Discharge Instructions Diet Discharge Diet: 1800 Calorie Control Diet Activity Discharge Activity: Return to Normal Activity Weight Bearing Status: Full weight bearing Follow Up Care Test Results: Test results from this visit will be discussed in further detail at your follow- up appointment, if applicable. Discharge Plan Admission Admit Date/Time: 12/11/22 02:09 Primary Reason for Your Visit: exacerbation of COPD Attending Provider: Chaka Obrien Primary Care Provider: Royce Carroll Consulting Providers: Patt Giordano ; Josh Linn ; Víctor López ; Kashif Burdick ; Pavan De Anda ; Roland Dotson ; Peggy Bliss FACILITIES MECHANICAL DESIGN ENGINEER Instructions Additional Instructions / Restrictions: Use oxygen- 2 liters/min at rest, 4 liters with activity Do not smoke Discharge Orders/Prescriptions Prescriptions: New ipratropium-albuterol 0.5 mg-3 mg(2.5 mg base)/3 mL Solution For Nebulization 3 ml inhalation 4X/DAY Qty: 120 0RF levofloxacin 500 mg tablet 500 mg PO DAILY Qty: 4 0RF Rx Instructions: start on 12/17/22 prednisone 10 mg tablet 10 mg PO BID Qty: 24 0RF Rx Instructions: two twice a day for two days, then three daily for 2 days, then two daily for 5 days, then stop Continued atorvastatin 80 MG tablet 80 mg PO QHS Label Comments: treat cholesterol clopidogrel 75 MG tablet 75 mg PO DAILY Label Comments: cholesterol metformin 1,000 MG tablet 1,000 mg PO BIDCM Label Comments: blood sugar metoprolol tartrate 50 MG tablet 50 mg PO BID Label Comments: treat Blood pressure primidone 50 mg tablet 50 mg PO BID Label Comments: TAKE 1 TABLET BY MOUTH TWICE A DAY sertraline 100 mg tablet 100 mg PO DAILY Label Comments: TAKE 1 TABLET BY MOUTH EVERY DAY amlodipine 5 mg tablet 5 mg PO DAILY Label Comments: TAKE 1 TABLET BY MOUTH EVERY DAY Changed albuterol sulfate 2.5 mg /3 mL (0.083 %) solution for nebulization 2.5 mg inhalation Q2H PRN PRN (Reason: shortness of breath or wheezing) Qty: 1 0RF Rx Instructions: Use every two hours as needed for shortness of breath Referrals / Follow Up: Royce Carroll MD [Primary Care Provider] - Within 2 Weeks Víctor López MD [Med Staff - Active Staff] - See Referral Note (in two weeks- call for appointment) Disposition Disposition (needs filled in before D/C Order can be placed): Home Health Service
[2022-12-17] MEDS: predniSONE 20 MG Tablet 40 MG PO (10:35)
--- NOTE | 2022-12-17 10:57 | DS.PCM_ITS ---
Providers Date of Admission: 12/11/22 Date of Discharge: 12/17/22 Primary Care Physician: Dr. Royce Carroll MD Consultations 12/17/22 09:05 Consult: Wood Casket Maker / Pulmonary Medicine Routine Consulting Provider: Pulmonary Medicine luciano Garcia Reason for Consult: COPD EMERGENT Consult: No MD Notified: Yes Date Notified: 12/17/22 Time Notified: 09:05 Method of Notification: Verbal Reason For Visit: SEPSIS, HYPOXIA, COPD EXACERBATION Diagnosis Discharge Diagnosis (1) COPD exacerbation: Status: Chronic Code(s): J44.1 - Chronic obstructive pulmonary disease with (acute) exacerbation Plan 1. Acute hypoxic respiratory failure secondary to COPD exacerbation and acute diastolic CHF-patient's oxygen requirement has improved, continue present treatment, wean oxygen as tolerated, patient will undergo a noncontrasted chest CT #2 exacerbation of COPD-patient will remain on inhalers and steroids #3 acute diastolic CHF-patient will continue diuresis with oral diuretics #4 coronary artery disease-complicates care, medical course, recovery, and prog nosis, patient remains on a statin, Plavix, and metoprolol #5 type 2 diabetes-patient is on sliding scale insulin and Accu-Cheks #6 chronic depression-patient is on Zoloft #7 hyperlipidemia-patient is on Lipitor #8 lactic acidosis secondary to hypoxia Total clinical time spent by myself addressing patient's medical issues, reviewing all of his data, and collaborating with patient's care team: 37 minutes Medications at Discharge Home Medications atorvastatin 80 mg tablet 80 mg PO QHS Check with primary doctor 03/24/16 clopidogrel 75 mg tablet 75 mg PO DAILY Check with primary doctor 03/24/16 metformin 1,000 mg tablet 1,000 mg PO BIDCM Check with primary doctor 03/24/16 metoprolol tartrate 50 mg tablet 50 mg PO BID Check with primary doctor 03/24/16 amlodipine 5 mg tablet 5 mg PO DAILY Check with primary doctor 12/11/22 primidone 50 mg tablet 50 mg PO BID Check with primary doctor 12/11/22 sertraline 100 mg tablet 100 mg PO DAILY Check with primary doctor 12/11/22 albuterol sulfate 2.5 mg/3 mL (0.083 %) solution for nebulization 2.5 mg (3 mL) inhalation Q2H PRN PRN shortness of breath or wheezing #1 mL 12/17/22 ipratropium 0.5 mg-albuterol 3 mg (2.5 mg base)/3 mL nebulization soln 3 ml inhalation 4X/DAY #120 mL 12/17/22 levofloxacin 500 mg tablet 500 mg PO DAILY #4 tabs 12/17/22 prednisone 10 mg tablet 10 mg PO BID #24 tabs 12/17/22 Hospital Course Operations None Procedures 2-D Echocardiogram Summary of Care Provided Minutes Spent on Discharge: 32 Hospital Course: This 72-year-old white male was seen in the emergency room at [facility] with complaints of shortness of breath and nonproductive cough. Symptoms have been going on for 2 to 3 days. Patient had a past history of coronary disease and had undergone a coronary bypass surgery in 1999 and had also had stents placed since that time. Patient has a history of COPD and he stated that he quit smoking approximately 3 days ago. Patient has an aerosol machine at home that he uses for bronchodilator treatments. Patient denied any fevers or chills. Work-up in the ER included a chest x-ray which showed some bilateral lower lobe faint infiltrates, no acute cardiopulmonary disease was noted to be present, patient was given 2 aerosol treatments, IV Solu-Medrol, and magnesium, patient's beta nitric peptide was elevated at 277, his white blood cell count was minimally elevated at 11.3. Creatinine was elevated at 1.41, lactic acid was 2.1. Patient required supplemental oxygen at 2 L/min to maintain his pulse ox above 90%. Patient was admitted to [place] [address] for exacerbation of COPD with acute diastolic CHF, he was given aerosol treatments and placed on IV Solu-Medrol, he was also given IV Lasix for diuresis and he underwent an echocardiogram which showed a normal EF. Patient's blood sugars were monitored and he was given sliding scale insulin per fingerstick blood sugars. Patient progressed slowly during his hospitalization, he was seen in c onsultation by pulmonary medicine and it was recommended that the patient's diuretics be stopped, it was recommended he be placed on a short course of antibiotics, and it was recommended he be discharged on home oxygen with follow- up with pulmonary medicine. On 12/17/2022, patient was seen and examined: On examination he appeared older than his stated age, he was in no respiratory distress. Vital signs as documented. Skin warm and dry and without overt rashes. Neck without JVD, neck was supple, trachea midline, thyroid was normal. Lungs-scattered expiratory wheezes were noted bilaterally, breath sounds were diminished bilaterally. Heart exam notable for regular rhythm, normal sounds and absence of murmurs, rubs or gallops. Abdomen unremarkable and without evidence of organomegaly, masses, or abdominal aortic enlargement. Bowel sounds are present, abdomen is not distended. Extremities nonedematous, no cyanosis was noted, no clubbing was noted. Neuro: Cranial nerves II through XII are grossly intact, no focal motor deficits were noted, sensation to light touch and pinprick intact, motor exam 5/5 throughout. Psych: Patient is alert and oriented x3, he does not appear anxious or depressed, he does not appear agitated. A walking pulse oximetry was performed on the patient, he required 3 L of nasal cannula oxygen to maintain his pulse ox above 88%, he did not require any oxygen at rest however. Patient was set up for home oxygen, he was expected to use his oxygen during activities of daily living and during exertion and an outside his home. Patient agreed to this. On 12/17/2022, patient was seen and examined and felt to be in stable condition for discharge home. Weight / BMI Weight Weight: 80.2 kg Body Mass Index (BMI) 22.6 ABG / Lab / Microbiology Data Result Diagrams: 12/12/22 06:00 12/17/22 06:20 Laboratory: Laboratory Results - last 24 hr 12/16/22 12:07: POC Glucose 385 H 12/16/22 17:43: POC Glucose 187 H 12/16/22 21:01: POC Glucose 377 H 12/17/22 06:20: Sodium 137, Potassium 4.7, Chloride 95 L, Carbon Dioxide 39.0 H, Anion Gap 3 L, BUN 33 H, Creatinine 1.26, Estim Creat Clear Calc 61.00, Est GFR (MDRD) Af Amer 73, Est GFR (MDRD) Non-Af 60, BUN/Creatinine Ratio 26.2 H, Glucose 258 H, Calcium 8.5 12/17/22 06:32: POC Glucose 253 H Microbiology: Microbiology 12/16/22 15:15 Stool Stool Occult Blood (MARY) - Final 12/11/22 01:02 Blood Culture (Wb) #2 - Left Forearm Blood Culture - Final No growth in 5 days. 12/11/22 00:36 Blood Culture (Wb) - Left Forearm Blood Culture - Final No growth in 5 days. 12/11/22 03:32 Urine, Clean Catch Urine Culture - Final Mixed Gram Positive Organisms 12/11/22 02:48 Mucosa - Nose Respiratory Panel (PCR) - Final 12/11/22 03:32 Urine, Clean Catch Legionella Antigen - Final 12/11/22 03:32 Urine, Clean Catch Streptococcus pneumoniae Antigen (M - Final 12/11/22 00:42 Nasal Secretion SARS-CoV-2 Antigen (Rapid) - Final Radiography Diagnostic Testing: Radiology Impression Chest X-Ray 12/16/22 16:18 IMPRESSION: Chronic lung disease. No acute abnormal cardiopulmonary finding. Electronically Signed: Boris Urbina MD at 16:59 EDT , Chest CT 12/16/22 19:35 IMPRESSION: Right lateral lung base nodularity is suspicious for cancer versus infection. Chronic lung disease. Electronically Signed: Boris Urbina MD at 20:01 EDT , ADDENDUM: 12/16/224 IMPRESSION: Right lateral lung base nodularity is suspicious for cancer versus infection. Chronic lung disease. N.B. : COLLEEN HERNANDEZ RN, confirmed on 12/16/2022 22:17:14 (ET) that the healthcare facility has received the radiology report. Electronically Signed: Boris Urbina MD at 20:01 EDT , D/C Instructions Discharge Diet: 1800 Calorie Control Diet Weight Bearing Status: Full weight bearing Meaningful Use Info Meaningful Use Diagnoses (Choose all that apply): CHF CHF BRI/ARB ordered at discharge?: No Reason BRI/ARB not ordered?: Not indicated Documented LVEF (%): 60 Discharge Plan Admission Admit Date/Time: 12/11/22 02:09 Primary Reason for Your Visit: exacerbation of COPD Attending Provider: Chaka Obrien Primary Care Provider: Royce Carroll Consulting Providers: Patt Giordano ; Josh Linn ; Víctor López ; Kashif Burdick ; Pavan De Anda ; Roland Dotson ; Peggy Bliss NIGHT CLEANER Instructions Additional Instructions / Restrictions: Use oxygen- 2 liters/min at rest, 4 liters with activity Do not smoke Discharge Orders/Prescriptions Prescriptions: New ipratropium-albuterol 0.5 mg-3 mg(2.5 mg base)/3 mL Solution For Nebulization 3 ml inhalation 4X/DAY Qty: 120 0RF levofloxacin 500 mg tablet 500 mg PO DAILY Qty: 4 0RF Rx Instructions: start on 12/17/22 prednisone 10 mg tablet 10 mg PO BID Qty: 24 0RF Rx Instructions: two twice a day for two days, then three daily for 2 days, then two daily for 5 days, then stop Continued atorvastatin 80 MG tablet 80 mg PO QHS Label Comments: treat cholesterol clopidogrel 75 MG tablet 75 mg PO DAILY Label Comments: cholesterol metformin 1,000 MG tablet 1,000 mg PO BIDCM Label Comments: blood sugar metoprolol tartrate 50 MG tablet 50 mg PO BID Label Comments: treat Blood pressure primidone 50 mg tablet 50 mg PO BID Label Comments: TAKE 1 TABLET BY MOUTH TWICE A DAY sertraline 100 mg tablet 100 mg PO DAILY Label Comments: TAKE 1 TABLET BY MOUTH EVERY DAY amlodipine 5 mg tablet 5 mg PO DAILY Label Comments: TAKE 1 TABLET BY MOUTH EVERY DAY Changed albuterol sulfate 2.5 mg /3 mL (0.083 %) solution for nebulization 2.5 mg inhalation Q2H PRN PRN (Reason: shortness of breath or wheezing) Qty: 1 0RF Rx Instructions: Use every two hours as needed for shortness of breath Referrals / Follow Up: Víctor López MD [Med Staff - Active Staff] - 01/01/23 6:45 am (in two weeks- call for appointment. This appointment was made with a different provider do to Dr. López not having any openings.) Royce Carroll MD [Primary Care Provider] - 05/30/23 12:20 pm (This appointment is with Gabby Older NIGHT CLEANER.) Disposition Disposition (needs filled in before D/C Order can be placed): Home Health Service Charges/Coding Visit Charges Inpatient E&M: 43899 Disch Hosp >30min
--- NOTE | 2022-12-17 11:10 | CASEMGMT ---
Addendum entered by Park Wright 12/17/22 11:14: Pt aware of homegoing oxygen instructions. Pt is also aware that C will be out to see him on . Original Note: [place] [facility] [place] [facility]. Gretchen at [facility] aware pt to be dc'd today. Pt denies further needs.
--- NOTE | 2022-12-17 11:37 | PHA.DC.MC ---
Pharmacy Service has performed discharge medication reconciliation and counseling for this patient. 1. IPRATROPIUM/ALBUTEROL 3ML NEBULIZED SOLUTION 4X/DAY 2. LEVOFLOXACIN 500MG PO DAILY X 4 DAYS 3. PREDNISONE 20MG PO BID X 2 DAYS, THEN 30MG X 2 DAYS, THEN 20MG X 5 DAYS The patient's discharge medication list was reviewed for discrepancies and discrepancies were resolved. Home Medications atorvastatin 80 mg tablet 80 mg PO QHS Check with primary doctor 03/24/16 clopidogrel 75 mg tablet 75 mg PO DAILY Check with primary doctor 03/24/16 metformin 1,000 mg tablet 1,000 mg PO BIDCM Check with primary doctor 03/24/16 metoprolol tartrate 50 mg tablet 50 mg PO BID Check with primary doctor 03/24/16 amlodipine 5 mg tablet 5 mg PO DAILY Check with primary doctor 12/11/22 primidone 50 mg tablet 50 mg PO BID Check with primary doctor 12/11/22 sertraline 100 mg tablet 100 mg PO DAILY Check with primary doctor 12/11/22 albuterol sulfate 2.5 mg/3 mL (0.083 %) solution for nebulization 2.5 mg (3 mL) inhalation Q2H PRN PRN shortness of breath or wheezing #1 mL 12/17/22 ipratropium 0.5 mg-albuterol 3 mg (2.5 mg base)/3 mL nebulization soln 3 ml inhalation 4X/DAY #120 mL 12/17/22 levofloxacin 500 mg tablet 500 mg PO DAILY #4 tabs 12/17/22 prednisone 10 mg tablet 10 mg PO BID #24 tabs 12/17/22 The patient was counseled on the following discharge medications and changes in medications for homegoing were reviewed. The Reason for Use, instructions for use, and potential side effects were reviewed for all new medications. The patient's questions regarding all of their medications were answered. The patient was able to verbally demonstrate an understanding of their discharge medications.
[2022-12-17 11:55] LABS: Bedside Glucose 396 mg/dL (74-106)
--- NOTE | 2022-12-17 12:40 | CASEMGMT ---
Social Work SW met with pt to discuss advance directives. Pt does not have a HCPOA nor living will. Pt not interested in additional information at this time. DONNIE Griffith
== END 2022-12-17 15:05 | disposition home health service (06) | DRG 190 ==
LOC: ED 01:00 → MS3 03:04
PROVIDERS: Family Medicine; Admitting Provider Family Medicine; Emergency Provider Emergency Medicine; PCP Internal Medicine; Visit Provider Internal Medicine
DX: J44.1 Chronic obstructive pulmonary disease with (acute) exacerbation (principal); J96.01 Acute respiratory failure with hypoxia; I50.31 Acute diastolic (congestive) heart failure; I13.0 Hypertensive heart and chronic kidney disease with heart failure and stage 1 through stage 4 chronic kidney disease, or unspecified chronic kidney disease; E11.22 Type 2 diabetes mellitus with diabetic chronic kidney disease; N18.31 Chronic kidney disease, stage 3a; G25.0 Essential tremor; I25.10 Atherosclerotic heart disease of native coronary artery without angina pectoris; E78.5 Hyperlipidemia, unspecified; F41.9 Anxiety disorder, unspecified; F32.A Depression, unspecified; R59.0 Localized enlarged lymph nodes; Z20.822 Contact with and (suspected) exposure to COVID-19; Z79.02 Long term (current) use of antithrombotics/antiplatelets; Z79.84 Long term (current) use of oral hypoglycemic drugs; Z87.891 Personal history of nicotine dependence; Z86.73 Personal history of transient ischemic attack (TIA), and cerebral infarction without residual deficits; Z95.1 Presence of aortocoronary bypass graft; Z95.5 Presence of coronary angioplasty implant and graft
CPT/HCPCS: 36415; 36600; 71045; 71046; 71250; 80048; 80053; 81001; 82274; 82607; 82728; 82746; 82803; 82962; 83540; 83550; 83605; 83880; 84145; 84484; 85025; 85610; 87040; 87086; 87088; 87449; 87633; 87635; 87811; 93005; 93306; 94640; 94668; 94762; 97110; 97162; 97530; 99284; J7030; J7120; Q9957; A4216; C8929; J1940; J3475; U0005

== ENCOUNTER → 2023-06-27 | Outpatient (CLI) | payer MEDICARE, SELFPAY ==
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
== END | disposition home or self-care (01) ==
PROVIDERS: PCP Internal Medicine
DX: R13.10 Dysphagia, unspecified (principal)
CPT/HCPCS: 74230; 92611

== ENCOUNTER 2023-12-10 14:28 | Outpatient (RCR) | payer MEDICARE, SELFPAY ==
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
--- NOTE | 2024-02-06 14:08 | HP.SP.DC ---
ST Discharge Summary Discharged: Discharge: NAGA BROWN is a 73 year old male who presented to [facility] for evaluation of his swallowing following reported difficulties with eating at home. Following initial evaluation it was recommended that he participate in a FEES procedure to objectively assess swallow function and determine an exercise program to implement. An order was obtained from Pt's physician and Pt was scheduled for a FEES on 01/12/24. He no showed this appt. The evaluating therapist called pt's who stated that they won't be coming. No reason given for why the appointment was missed. Pt's stated that Naga said to cx all speech therapy appointments. 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 This treating ST called family on 01/14/24 and left a voicemail re: no showing Naga's FEES appt on Friday. Asked her to call back and confirm they in fact wanted to cancel all of his remaining appointments after discussing why the FEES was recommended after his initial evaluation. As of this date, 02/06/24, a FEES has not been rescheduled nor has the family attempted to contact speech therapy. At this time, Pt will be discharged from speech therapy caseload. Should he wish to return to speech therapy, a FEES is still recommended to objectively assess his swallow function to assist in creating a POC.
== END 2023-12-10 19:00 | disposition home or self-care (01) ==
LOC: SP 14:28
PROVIDERS: PCP Internal Medicine
DX: R13.12 Dysphagia, oropharyngeal phase (principal); J44.9 Chronic obstructive pulmonary disease, unspecified; Z86.73 Personal history of transient ischemic attack (TIA), and cerebral infarction without residual deficits
CPT/HCPCS: 92610

== ENCOUNTER 2024-11-03 17:27 | Inpatient (IN) | payer MEDICARE, SELFPAY ==
[2024-11-03] VITALS (21 sets, daily range): BP systolic 118–170; BP diastolic 67–98; PULSE 89–110; RESP 18–38; TEMP 36.2–37.2; O2SAT 85–100; BMI 23.7; BMI 23.6
--- NOTE | 2024-11-03 17:37 | EKG12_ITS ---
Test Reason : SOB Blood Pressure : */* mmHG Vent. Rate : 85 BPM Atrial Rate : 85 BPM P-R Int : 144 ms QRS Dur : 96 ms QT Int : 366 ms P-R-T Axes : 69 44 -25 degrees QTcB Int : 435 ms Normal sinus rhythm Minimal voltage criteria for LVH, may be normal variant ( Sokolow-Pineda ) Abnormal ECG Confirmed by JULIO CRAWFORD, MIKY ([id number]), editorial intern KIRSTIN SOSA ([id number]) on 11/04/2024 8:42:06 AM Referred By: Confirmed By: MIKY KIM MD
[2024-11-03 18:18] LABS: Absolute Lymphocyte Count 0.71 X10^3/uL (0.83-4.51); Absolute Neutrophil Count 11.2 X10^3/uL (2.0-7.7); Basophil# 0.01 X10^3/uL; Basophil% 0.1 % (0-1); Eosinophil# 0.02 X10^3/uL; Eosinophils% 0.2 % (0-5); Hematocrit 31.9 % (40-54); Hemoglobin 10.1 g/dL (13.0-16.5); Lymphocyte # 0.71 X10^3/ul (0.83-4.51); Lymphocyte % 5.6 % (19-41); Mean Corp Hgb Conc 31.7 g/dL (32-36); Mean Corpuscular Hgb 32.8 pg (27.0-32.0); Mean Corpuscular Volume 103.6 fL (80-94); Mean Platelet Vol. 10.1 fl (6.2-12.0); Monocyte# 0.68 X10^3/uL; Monocyte% 5.4 % (0-10); NRBC Flagged by Analyzer 0 % (0-5); Neutrophil # 11.21 X10^3/uL (2.7-7.7); Neutrophil % 88.5 % (47-70); Platelet Count 204 K/mm3 (150-450); RBC Distribution Width CV 14.5 % (11.6-14.6); RBC Distribution Width SD 54.4 fl (35.1-43.9); Red Blood Count 3.08 M/mm3 (4.6-6.2); White Blood Count 12.7 K/mm3 (4.4-11.0)
[2024-11-03] MEDS: Ipratropium/Albuterol Sulfate 3 ML AMPUL.NEB INHALATION ×2 (18:46→22:59)
[2024-11-03] MEDS: MethylPREDNISolone 125 MG/2 ML Vial 60 MG IV (18:48)
[2024-11-03 18:52] LABS: Anion Gap 11 (5-15); BUN 25 mg/dL (4-19); BUN/Creat Ratio 16.3 RATIO (10-20); Calcium,Total 9.2 mg/dL (7.6-11.0); Carbon Dioxide 29.8 mmol/L (21.0-32.0); Chloride 96 mmol/L (98-108); Creatinine, Serum 1.51 mg/dL (0.70-1.20); EST Glomerular Filtration Rate 48 (>60); Estimated Creatinine Clearance 49.24 ml/min (50-250); Glucose 201 mg/dL (70-99); Potassium 4.8 mmol/L (3.3-5.1); Sodium Level 136 mmol/L (133-145)
--- NOTE | 2024-11-03 19:02 | EDS_ITS ---
HPI History of Present Illness Chief Complaint: Shortness of Breath Informant: patient and family Narrative Narrative: Brought in by EMS worsening dyspnea last few weeks. History COPD chronic 4 L oxygen with tobacco history. Denies cough. Does have inhalers at home. Diabetes on oral medicines. Chest tightness due to dyspnea. Patient on aspirin therapy. Does not check his sugars frequently. Cannot recall his last glucose. No fever chills or sweats. No myalgias. Prior similar symptoms: Yes PFSH PFS Medical History (Updated 11/03/24 @ 22:[address] Yoav Alcaraz, DO) COPD exacerbation Essential tremor Stage 3a chronic kidney disease (CKD) Diabetes mellitus, type 2 CAD (coronary artery disease) History of CVA (cerebrovascular accident) Tobacco use Hyperlipidemia COPD (chronic obstructive pulmonary disease) Hypertension Home Medications ?Medication ?Instructions ?Recorded ?Last Taken ?Type clopidogrel 75 mg tablet 75 mg PO DAILY Check with pr imary 03/24/16 Unknown History doctor metoprolol tartrate 50 mg tablet 50 mg PO BID Check wi primary 03/24/16 12/10/22 History doctor amlodipine 5 mg tablet 5 mg PO DAILY Check with daniella nona 12/11/22 12/10/22 History doctor sertraline 100 mg tablet 100 mg PO DAILY Check with p dasha 12/11/22 12/10/22 History doctor albuterol sulfate 2.5 mg/3 mL 2.5 mg (3 mL) inhalation Q2H PRN 12/17/22 12/10/22 Rx (0.083 %) solution for nebulization PRN shortness of b reath or wheezing #1 mL ipratropium 0.5 mg-albuterol 3 mg 3 ml inhalation 4X/D AY #120 mL 12/17/22 Unknown Rx (2.5 mg base)/3 mL nebulization soln albuterol sulfate 90 mcg/actuation 2 puff inhalation Q 4H PRN PRN 11/03/24 Unknown History aerosol inhaler wheezing atorvastatin 40 mg tablet 40 mg PO QHS 11/03/24 Unknow n History fluticasone fur. 100 mcg-umeclid 1 ea inhalation DAILY 11/03/24 Unknown History 62.5 mcg-vilant 25 mcg inhalat.powder (Trelegy Ellipta) fluticasone propionate 50 1 spray intranasal BID 11/03 Unknown History mcg/actuation nasal spray,suspension metformin 500 mg tablet 500 mg PO BID 11/03/24 Unkno wn History Allergy/AdvReac Type Severity Reaction Status Date / Time acetaminophen (From Tylenol) Allergy Unknown Verified 11/03/24 17:30 morphine Allergy Other Verified 11/03/24 17:30 oyster extract Allergy Unknown Verified 11/03/24 17:30 lisinopril AdvReac Other Verified 11/03/24 17:30 Family History Mother Cancer Brain cancer, unclear type. Son Cancer Youngest son, metastatic testicular cancer. Father Heart disease Hypertension CVA (cerebral vascular accident) Surgical History S/P appendectomy H/O right inguinal hernia repair S/P bilateral foot surgery S/P triple vessel bypass H/O heart artery stent Social History (Updated 11/03/24 @ 22:22 by Shadia Fuentes) household members: spouse current occupational status: retired Smoking Status: Current every day smoker tobacco type: cigarettes how long ago did patient quit smoking: Smoked since 10/27/1967, up to 1 ppd, recent down to 1 pk/4-5 days. alcohol intake: current alcohol intake frequency: holidays/special occasions only substance use type: does not use ROS ROS ED Constitutional Constitutional ED: Denies chills, fever(s) or sweats ENT ENT ED: Denies sore throat Cardiovascular Cardiovascular: Denies chest pain, leg edema, palpitations or racing heartbeat Respiratory/Chest Respiratory/Chest: Reports dyspnea; Denies cough or dyspnea on exertion Gastrointestinal Gastrointestinal: Denies abdominal pain, diarrhea, nausea or vomiting Genitourinary Genitourinary ED: Denies dysuria, hematuria or urinary frequency Musculoskeletal Musculoskeletal: Denies back pain, extremity pain or neck pain Integumentary Denies rash or wounds Neurologic Neurologic: Denies headache(s), paresthesias or weakness EXAM Physical Exam Const Vital Signs: 11/03/24 17:31 11/03/24 18:16 11/03/24 18:17 Temperature 98.9 F 98 F Temperature Source Oral Temporal Pulse Rate 93 95 Respiratory Rate 18 35 H Respiratory Effort Respiratory Depth Respiratory Pattern Blood Pressure 142/98 H 118/72 Blood Pressure Mean 112 87 Pulse Ox 95 88 95 Oxygen Delivery Method Nasal Cannula Nasal Cannula Nasal Cannula Oxygen Flow Rate (L/min) 4 4 6 11/03/24 18:17 11/03/24 18:19 11/03/24 18:21 Temperature Temperature Source Pulse Rate Respiratory Rate 22 H Respiratory Effort Short of Breath Labored Respiratory Depth Deep Respiratory Pattern Blood Pressure Blood Pressure Mean Pulse Ox 100 98 Oxygen Delivery Method Nasal Cannula Nasal Cannula Nasal Cannula Oxygen Flow Rate (L/min) 6 6 5 11/03/24 18:26 11/03/24 18:42 11/03/24 18:46 Temperature Temperature Source Pulse Rate 89 94 Respiratory Rate 26 H 28 H Respiratory Effort Respiratory Depth Respiratory Pattern Tachypnea Blood Pressure 136/76 H Blood Pressure Mean 96 Pulse Ox 96 95 Oxygen Delivery Method Nasal Cannula Nasal Cannula Oxygen Flow Rate (L/min) 4 4 11/03/24 19:00 11/03/24 20:00 11/03/24 20:10 Temperature 98 F 97.2 F L Temperature Source Temporal Temporal Pulse Rate 97 94 Respiratory Rate 33 H 22 H Respiratory Effort Respiratory Depth Respiratory Pattern Blood Pressure 144/78 H 143/67 H Blood Pressure Mean 100 92 Pulse Ox 92 92 85 Oxygen Delivery Method Nasal Cannula Nasal Cannula Nasal Cannula Oxygen Flow Rate (L/min) 4 4 4 11/03/24 20:15 11/03/24 20:32 11/03/24 20:40 Temperature Temperature Source Pulse Rate Respiratory Rate Respiratory Effort Respiratory Depth Respiratory Pattern Blood Pressure Blood Pressure Mean Pulse Ox 98 94 86 Oxygen Delivery Method Nasal Cannula Nasal Cannula Nasal Cannula Oxygen Flow Rate (L/min) 5 4 4 11/03/24 20:44 11/03/24 21:00 Temperature 98.2 F Temperature Source Temporal Pulse Rate 95 Respiratory Rate 38 H Respiratory Effort Respiratory Depth Respiratory Pattern Blood Pressure 159/80 H Blood Pressure Mean 106 Pulse Ox 89 94 Oxygen Delivery Method Nasal Cannula Nasal Cannula Oxygen Flow Rate (L/min) 5 5 Positive well nourished and well developed Constitutional Narrative: Speaking in short sentences, nontoxic. General Appearance ED: well developed HEENT Reports moist mucous membranes normocephalic and atraumatic Eyes General Eye ED: Yes normal appearance of both eyes Neck full ROM Chest Wall Chest: Negative for tenderness Resp Resp Narrative: Bilateral expiratory wheezing noted. Effort and Inspection: symmetric chest movement; Negative for respiratory distress Cardio regular rate, regular rhythm and no murmurs Peripheral Pulses: pulses 2+ throughout GI normal to inspection, nondistended, normoactive bowel sounds and non-tender Palpation: Negative for guarding or rebound tenderness present Extremity normal to inspection General Extremety ED: Negative for edema or tenderness General Extremity: Negative for edema Neuro oriented x3 and no sensory deficits noted Sensorium / Orientation: awake and alert Skin no rashes or lesions noted and no wounds MDM MDM MDM Narrative Medical decision making narrative: Interventions / MDM: Differential diagnosis: Aspiration pneumonia, COPD exacerbation, hypoxia Diagnosis considered but do not suspect: N/A My EKG interpretation: Sinus rhythm 85, no ST changes. T wave version leads III and aVF. Similar findings November 2022. Imaging independently reviewed and interpreted by myself: 1 view chest x-ray: Pneumonia findings right bilateral more prominent on the right. External documents reviewed: N/A Test considered but not ordered:N/A ED course: Patient speaking short sentences with expiratory wheezing. Diabetic history. IV was established. DuoNeb treatment Solu-Medrol 60 mg IV ordered. Basic labs, EKG chronic findings. X-ray ordered for further evaluation. 2034: X-ray concerning pneumonia white count 12.7. Creatinine 1.51. Last creatinine 1.26. Nursing reported had a coughing episode oxygen dropped and 84% he is increased to 5 L. Further discussion, daughter reports she gave him water which causes coughing episodes. He states he has been having these similar events more recently. Concerning for aspiration he will be given antibiotics Zosyn for coverage for this. I will discuss with hospitalist service for admission. I discussed with Dr. Beasley for admission. Re-evaluation: stable Disposition discussed with patient/family/significant other: Patient and daughter Case discussed with consulting clinician: Hospitalist This note was generated with [employer] dictation software. It may contain incorrect words, spelling, and punctuation that were not noted in checking the note before signing. Lab Data Attestation: I reviewed the patient's lab results. Labs: Laboratory Results - last 24 hr 11/03/24 17:15 WBC 12.7 H RBC 3.08 L Hgb 10.1 L Hct 31.9 L MCV 103.6 H MCH 32.8 H MCHC 31.7 L RDW Std Deviation 54.4 H RDW Coeff of Christine 14.5 Plt Count 204 MPV 10.1 Immature Gran % (Auto) 0.200 Neut % (Auto) 88.5 H Lymph % (Auto) 5.6 L Mcintosh % (Auto) 5.4 Eos % (Auto) 0.2 Baso % (Auto) 0.1 Absolute Neuts (auto) 11.2 H Absolute Lymphs (auto) 0.71 L Nucleated RBC % 0 Sodium 136 Potassium 4.8 Chloride 96 L Carbon Dioxide 29.8 Anion Gap 11 BUN 25 H Creatinine 1.51 H Estim Creat Clear Calc 49.24 L Est GFR (MDRD) Non-Af 48 L BUN/Creatinine Ratio 16.3 Glucose 201 H Calcium 9.2 Magnesium 1.8 Radiography Diagnostic Testing: Clinical Impression(s) from Imaging Studies Chest X-Ray 11/03/24 19:30 IMPRESSION: Findings concerning for pneumonia. Reading Location: [facility] Discharge Plan Dx/Rx/DC Orders Clinical Impression: Aspiration pneumonia, Diabetes mellitus, type 2, COPD exacerbation, Hypoxia Disposition Disposition: Acute Care Hospital [facility] Discharge Date/Time: 11/03/24 21:43
--- NOTE | 2024-11-03 19:30 | RAD_ITS ---
PROCEDURE: CHEST 1 VIEW (PORTABLE) 11/03/2024 REASON FOR EXAM: SOB TECHNIQUE: Frontal view of the chest. COMPARISON: None FINDINGS: Hardware: Status post median sternotomy. Heart: The heart size is normal. Lungs: Upper lobe emphysema. Small bilateral pleural effusions/scarring. Mid to lower lungs and bilateral airspace opacities, more prominent on the right. No pneumothorax. Bones: Degenerative changes are identified within the thoracic spine. Other: RAD/Chest 1 View (Portable) IMPRESSION: Findings concerning for pneumonia. Reading Location: [facility]
--- NOTE | 2024-11-03 20:50 | HP.PCM.HOS_ITS ---
[facility] General Date of Admission: 11/03/24 Date of Service: 11/03/24 Chief Complaint: SOB, Wheezing and Cough with Drinking. HPI Narrative KAM BROWN, is a 74 M with a past medical history of essential hypertension; on amlodipine and metoprolol, hyperlipidemia; on atorvastatin, DM-2; of unknown control on metformin twice daily, CAD; s/p CABG x 3 and stent x 2 on clopidogrel, history of chronic diastolic CHF; with preserved LVEF, history of carotid atherosclerosis, history of TIA/CVA; s/p previous administration of tPA, CKD; stage IIIa, essential tremor, depression; on sertraline, history of Right inguinal hernia; s/p repair, history of appendectomy, OA; s/p bilateral foot surgeries, history of tobacco abuse (quit 2022); with subsequent COPD on 4L NC continuous and history of admission here from December 11, 2022 to December 16, 2022 for treatment of AE COPD complicated by acute respiratory failure and acute exacerbation of chronic diastolic CHF with lactic acidosis plus macrocytic anemia with MCV of 101.9 fL that admission who presents to [facility] ER complaining of shortness of breath, wheezing and cough made worse with drinking. Mr. Brown reports his symptoms began ~2 weeks prior to admission with a gradual-onset of dyspnea on exertion that progressed to shortness of breath at rest. He also admits to chest tightness due to dyspnea. He states he does not check his sugars frequently and cannot recall his last glucose. His family noticed whenever he is drinking fluids he was noted to have coughing fits with a witnessed episode in the ER. There was no report of fever, chills, runny nose, sore throat, ear pain, chest pain, abdominal pain, nausea, vomiting, diarrhea, constipation, dysuria, hematuria, arthralgias, myalgias, headache or rash. In the ER he was noted to have Leukocytosis of 12.7 K present on admission with a corresponding CXR that revealed upper lobe emphysema with small bilateral pleural effusion/scarring with mid to lower lungs and bilateral airspace opacities more prominent on the Right suspicious for Pneumonia which was suspected be due to aspiration complicated by clinical evidence of AE COPD with Jnukj-hb-Nodkpmy Respiratory Insufficiency with patient requiring increased supplemental oxygen up to 5 LNC in ER and he was then admitted to the general medical floor for ongoing care for status is expected to extend beyond 2 midnights. PFSH Medical History (Updated 11/04/24 @ 01:[address] Kam Leigh, DO) COPD exacerbation Essential tremor Stage 3a chronic kidney disease (CKD) Diabetes mellitus, type 2 CAD (coronary artery disease) History of CVA (cerebrovascular accident) Tobacco use Hyperlipidemia COPD (chronic obstructive pulmonary disease) Hypertension Home Medications ?Medication ?Instructions ?Recorded ?Last Taken ?Type clopidogrel 75 mg tablet 75 mg PO DAILY Check with pr imary 03/24/16 Unknown History doctor metoprolol tartrate 50 mg tablet 50 mg PO BID Check wi th primary 03/24/16 12/10/22 History doctor amlodipine 5 mg tablet 5 mg PO DAILY Check with daniella nona 12/11/22 12/10/22 History doctor sertraline 100 mg tablet 100 mg PO DAILY Check with p rimkassidy 12/11/22 12/10/22 History doctor albuterol sulfate 2.5 mg/3 mL 2.5 mg (3 mL) inhalation Q2H PRN 12/17/22 12/10/22 Rx (0.083 %) solution for nebulization PRN shortness of b reath or wheezing #1 mL ipratropium 0.5 mg-albuterol 3 mg 3 ml inhalation 4X/D AY #120 mL 12/17/22 Unknown Rx (2.5 mg base)/3 mL nebulization soln albuterol sulfate 90 mcg/actuation 2 puff inhalation Q 4H PRN PRN 11/03/24 Unknown History aerosol inhaler wheezing atorvastatin 40 mg tablet 40 mg PO QHS 11/03/24 Unknow n History fluticasone fur. 100 mcg-umeclid 1 ea inhalation DAILY 11/03/24 Unknown History 62.5 mcg-vilant 25 mcg inhalat.powder (Trelegy Ellipta) fluticasone propionate 50 1 spray intranasal BID 11/03 Unknown History mcg/actuation nasal spray,suspension metformin 500 mg tablet 500 mg PO BID 11/03/24 Unkno wn History Allergy/AdvReac Type Severity Reaction Status Date / Time acetaminophen (From Tylenol) Allergy Unknown Verified 11/03/24 17:30 morphine Allergy Other Verified 11/03/24 17:30 oyster extract Allergy Unknown Verified 11/03/24 17:30 lisinopril AdvReac Other Verified 11/03/24 17:30 Family History Mother Cancer Brain cancer, unclear type. Son Cancer Youngest son, metastatic testicular cancer. Father Heart disease Hypertension CVA (cerebral vascular accident) Surgical History S/P appendectomy H/O right inguinal hernia repair S/P bilateral foot surgery S/P triple vessel bypass H/O heart artery stent Social History (Updated 11/03/24 @ 22:22 by Shadia Fuentes) household members: spouse current occupational status: retired Smoking Status: Current every day smoker tobacco type: cigarettes how long ago did patient quit smoking: Smoked since 10/27/1967, up to 1 ppd, recent down to 1 pk/4-5 days. alcohol intake: current alcohol intake frequency: holidays/special occasions only substance use type: does not use ROS ROS Narrative Review of Systems: Constitutional: Patient denies fever or chills. Eyes: Patient denies changes in vision or discharge from eyes. ENT: Patient denies runny nose, sore throat or ear pain. Resp: Patient admits to shortness of breath, wheezing and cough made worse with drinking as per HPI. CV: Patient denies chest pain, palpitations, heart racing or lower extremity edema. GI: Patient denies abdominal pain, nausea, vomiting, diarrhea or constipation. : Patient denies dysuria, hematuria or urinary frequency. MSK: Patient denies arthralgias or myalgias. Skin: Patient denies rash, abscess, wounds or jaundice. Psych: Patient denies symptoms of uncontrolled depression or anxiety. Neuro: Patient denies headache, paresthesias or focal neurologic deficits. Allergy: Patient denies lip swelling, tongue swelling or urticaria. Hematology: Patient denies easy bleeding or easy bruisability. Endocrinology: Patient admits to poor glucose management but he denies polyuria, polydipsia, polyphagia or heat/cold intolerance. 14 point ROS otherwise negative except for positives noted above in HPI. Vital Signs Vital Signs Vital Signs: 11/03/24 17:31 11/03/24 18:16 11/03/24 18:17 Temperature 98.9 F 98 F Temperature Source Oral Temporal Pulse Rate 93 95 Respiratory Rate 18 35 H Respiratory Effort Respiratory Depth Respiratory Pattern Blood Pressure 142/98 H 118/72 Blood Pressure Mean 112 87 Pulse Ox 95 88 95 Oxygen Delivery Method Nasal Cannula Nasal Cannula Nasal Cannula Oxygen Flow Rate (L/min) 4 4 6 11/03/24 18:17 11/03/24 18:19 11/03/24 18:21 Temperature Temperature Source Pulse Rate Respiratory Rate 22 H Respiratory Effort Short of Breath Labored Respiratory Depth Deep Respiratory Pattern Blood Pressure Blood Pressure Mean Pulse Ox 100 98 Oxygen Delivery Method Nasal Cannula Nasal Cannula Nasal Cannula Oxygen Flow Rate (L/min) 6 6 5 11/03/24 18:26 11/03/24 18:42 11/03/24 18:46 Temperature Temperature Source Pulse Rate 89 94 Respiratory Rate 26 H 28 H Respiratory Effort Respiratory Depth Respiratory Pattern Tachypnea Blood Pressure 136/76 H Blood Pressure Mean 96 Pulse Ox 96 95 Oxygen Delivery Method Nasal Cannula Nasal Cannula Oxygen Flow Rate (L/min) 4 4 11/03/24 19:00 11/03/24 20:00 11/03/24 20:10 Temperature 98 F 97.2 F L Temperature Source Temporal Temporal Pulse Rate 97 94 Respiratory Rate 33 H 22 H Respiratory Effort Respiratory Depth Respiratory Pattern Blood Pressure 144/78 H 143/67 H Blood Pressure Mean 100 92 Pulse Ox 92 92 85 Oxygen Delivery Method Nasal Cannula Nasal Cannula Nasal Cannula Oxygen Flow Rate (L/min) 4 4 4 11/03/24 20:15 11/03/24 20:32 11/03/24 20:40 Temperature Temperature Source Pulse Rate Respiratory Rate Respiratory Effort Respiratory Depth Respiratory Pattern Blood Pressure Blood Pressure Mean Pulse Ox 98 94 86 Oxygen Delivery Method Nasal Cannula Nasal Cannula Nasal Cannula Oxygen Flow Rate (L/min) 5 4 4 11/03/24 20:44 Temperature Temperature Source Pulse Rate Respiratory Rate Respiratory Effort Respiratory Depth Respiratory Pattern Blood Pressure Blood Pressure Mean Pulse Ox 89 Oxygen Delivery Method Nasal Cannula Oxygen Flow Rate (L/min) 5 Weight Weight: 180 lb Body Mass Index (BMI) 23.7 Physical Exam Const alert, oriented x3 and average body habitus Constitutional Narrative: Patient is speaking in short sentences with nontoxic appearance. General Appearance: cooperative HEENT normocephalic, head/scalp atraumatic, hearing grossly normal bilaterally and moist oral mucous membranes Eyes PERRL and EOMs intact bilaterally Neck no lymphadenopathy and supple Resp Resp Narrative: Diminished breath sounds throughout with bilateral expiratory wheezing noted. Auscultation: wheezes Cardio regular rate and regular rhythm GI normal to inspection, nondistended, normoactive bowel sounds, soft to palpation, non-tender and non-distended Extremity normal to inspection, full ROM and no clubbing, cyanosis or edema Skin Skin Narrative: Patient has evidence of rash, abscess, wounds or jaundice. Neuro CN's II-XII intact bilaterally, moves all extremities and no focal motor deficits Sensorium / Orientation: awake, alert, oriented to person, oriented to place and oriented to time Speech: speech normal Psych affect normal Results Medical Records Data Attestation: I reviewed the patient's medical records Lab / Micro Data Attestation: I reviewed the patient's lab results. 11/03/24 17:15 11/03/24 17:15 Labs: Laboratory Results - last 24 hr 11/03/24 17:15: WBC 12.7 H, RBC 3.08 L, Hgb 10.1 L, Hct 31.9 L, MCV 103.6 H, MCH 32.8 H, MCHC 31.7 L, RDW Std Deviation 54.4 H, RDW Coeff of Christine 14.5, Plt Count 204, MPV 10.1, Immature Gran % (Auto) 0.200, Neut % (Auto) 88.5 H, Lymph % (Auto) 5.6 L, Logan % (Auto) 5.4, Eos % (Auto) 0.2, Baso % (Auto) 0.1, Absolute Neuts (auto) 11.2 H, Absolute Lymphs (auto) 0.71 L, Nucleated RBC % 0, Sodium 136, Potassium 4.8, Chloride 96 L, Carbon Dioxide 29.8, Anion Gap 11, BUN 25 H, Creatinine 1.51 H, Estim Creat Clear Calc 49.24 L, Est GFR (MDRD) Non-Af 48 L, BUN/Creatinine Ratio 16.3, Glucose 201 H, Calcium 9.2 Micro: Microbiology 11/03/24 18:55 Mucosa - Nose SARS-CoV-2, Influenza & RSV (PCR) - Final Imaging Radiology Impression Chest X-Ray 11/03/24 19:30 IMPRESSION: Findings concerning for pneumonia. [facility] Assessment & Plan Assessment/Plan (1) Aspiration pneumonia: QUALIFIERS: Aspiration pneumonia type: unspecified Laterality: b ilateral Lung location: unspecified part of lung Qualified Code(s): J69.0 - Pneumonitis due to inhalation of food and vomit (2) COPD exacerbation: (3) Respiratory insufficiency: (4) Macrocytic anemia: (5) Diabetes mellitus, type 2: QUALIFIERS: Diabetes mellitus complication status: without complication Diabetes mellitus termite helper insulin use: without termite helper use Q ualified Code(s): E11.9 - Type 2 diabetes mellitus without complications (6) Essential hypertension: (7) Elevated troponin: (8) Chest pain: QUALIFIERS: Chest pain type: unspecified Qualified Code(s): R07.9 - Chest pain, unspecified PLAN: Plan 1. Leukocytosis of 12.7 K present on admission with a corresponding CXR that revealed upper lobe emphysema with small bilateral pleural effusion/scarring with mid to lower lungs and bilateral airspace opacities more prominent on the Right suspicious for Pneumonia which was suspected be due to Aspiration - Admit to general medical floor. Continue empiric IV piperacillin-tazobactam begun in the ER and await culture and sensitivity data. Will order formal speech therapy evaluation for suspected recurrent aspiration of thin liquids with help appreciated in advance. Patient has listed allergy to acetaminophen (?). Give IV hydromorphone as needed for severe (level 6-10/10) pain given listed allergy to morphine (?). 2. AE COPD with Gmchf-pa-Iknvymm Respiratory Insufficiency attributable to #1 - Maintain IV methylprednisolone begun in ER plus give scheduled and as needed nebulizer treatments. Wean additional supplemental oxygen as tolerated. Give IV pantoprazole for GI prophylaxis while on high-dose steroids. 3. History of admission here from December 11, 2022 to December 16, 2022 for treatment of AE COPD complicated by acute respiratory failure (on chronic 4L NC) and acute exacerbation of chronic diastolic CHF with lactic acidosis plus macrocytic anemia with MCV of 101.9 fL that admission - Noted. Patient quit smoking in 2022. However, MCV elevated at 103.6 fL this admission with low hemoglobin of 10.1 g/dL. Therefore, check B12 and folate levels to evaluate for possible underlying deficiency. 4. DM-2; of unknown control on metformin twice daily - Hold metformin while inpatient. Keep NPO and check FSBS q. 6 hours plus lowest-intensity SSI. Check HgbA1c to objectively assess quality of diabetic control. 5. Essential hypertension; on amlodipine and metoprolol - Resume home regimen plus give as needed IV hydralazine for systolic blood pressure greater then 160 mmHg. 6. Hyperlipidemia; on atorvastatin - Continue statin. 7. CAD; s/p CABG x 3 and stent x 2 on clopidogrel - Resume clopidogrel as before. 8. History of chronic diastolic CHF; with preserved LVEF - Noted. 9. History of carotid atherosclerosis - Noted. 10. History of TIA/CVA; s/p previous administration of tPA - Noted. 11. CKD; stage IIIa - Stable with estimated GFR of 49.24 mL/min with serum creatinine of 1.51 mg/dL and BUN of 25 mg/dL present on admission. 12. Essential tremor - Stable. 13. Depression; on sertraline - Maintain current treatment. Check TSH. 14. History of Right inguinal hernia; s/p repair - Noted. 15. History of appendectomy - Noted. 16. OA; s/p bilateral foot surgeries - Stable. 17. DVT/GI prophylaxis - Enoxaparin 30 mg sq daily. Pantoprazole 40 mg IV daily while NPO. Total time: Approximately: (but not less than) 55 minutes. Update: Shortly after arrival to PCU patient was noted to develop chest pain with frequent coughing fits the patient apparently having difficulty managing his saliva. He was started on ASA + full-dose enoxaparin with chemical stress test pending in the morning. Charges/Coding Visit Charges Inpatient E&M: 14602 Init Hosp L2
[2024-11-03] MEDS: Piperacil/Tazobactam 3.375 GM in 0.9% Normal Saline (50mL MB+) 50 ML IV (21:00)
--- NOTE | 2024-11-03 21:28 | CASEMGMT ---
Care Management Face to Face with patient for initial transition planning/care coordination assessment in the ED.? This magnetic tape typewriter operator introduced self and role at [facility]. Patient alert and oriented. Patient willing to participate in assessment and is able to answer all questions appropriately.? Care providers, pharmacy, and demographics verified. Admitting Diagnosis: Shortness of breath Other diagnosis history: COPD exacerbation, diabetes type 2, CAD, hypertension PCP: [facility]: [facility] Preferred Pharmacy: [facility] Insurance: ?[employer] Prescription Benefit: yes Living Will/HPOA: none LNOK: Living Arrangements: Lives with in mobile home, helps with all ADLs and IADLs Transportation: drives DME: ?On 4lt O2 continuous.? O2 supplies thru [facility] Has wheelchair and walker HHC: none SNF/Rehab: none Community Resources: none Behavioral Health History: none Patient goals: Patient wishes to discharge home, denies need for home health care at this time. Patient denies any further needs or concerns at this time. Disposition Plan: admission to acute; RN CM/SW to follow for discharge planning needs that may arise. Luna Rendon, MD PEDIATRIC ALLERGIST, TELEVISION REPAIRER
[2024-11-03 22:02] LABS: Magnesium 1.8 mg/dL (1.5-2.2)
[2024-11-03 22:54] LABS: Hemoglobin A1c 6.6 % (<=5.6)
--- NOTE | 2024-11-03 22:54 | EKG12_ITS ---
Test Reason : AM EKG Blood Pressure : */* mmHG Vent. Rate : 78 BPM Atrial Rate : 78 BPM P-R Int : 104 ms QRS Dur : 92 ms QT Int : 384 ms P-R-T Axes : -8 51 -57 degrees QTcB Int : 437 ms Atrial Paced Minimal voltage criteria for LVH, may be normal variant ( Sokolow-Pineda ) T wave abnormality, consider inferior ischemia Abnormal ECG When compared with ECG of 03-Nov-2024 23:12, MANUAL COMPARISON REQUIRED DATA IS UNCONFIRMED Confirmed by JULIO CRAWFORD, MIKY ([id number]), newspaper editor KIRSTIN SOSA ([id number]) on 11/04/2024 12:48:31 PM Referred By: ROGERS Confirmed By: MIKY KIM MD
[2024-11-03] MEDS: 0.9% Normal Saline (1000mL) 1,000 ML 70 ML IV (22:59)
[2024-11-03 23:08] LABS: Allen Test Positive; Base Excess 7 mmol/L (-2 to +2); Bicarbonate 32.9 mmol/L (22-26); Blood Gas Specimen Type ART; Mode Not entered; O2 Delivery Device Cannula; PO2 99 mmHG (75-100); SITE R Radial; SO2 97 % (95-99); Total Carbon Dioxide 35 mmol/L; pCO2 64.2 mmHg (35-45); pH 7.32 (7.35-7.45)
[2024-11-03 23:11] LABS: Vitamin B12 1475 pg/mL (180-914)
[2024-11-03] MEDS: Metoprolol Tartrate 50 MG Tablet PO (23:20)
[2024-11-03] MEDS: Fluticasone 0.05% 1 SPRAY NASAL.SRY NASAL (23:21)
[2024-11-03] MEDS: Atorvastatin Calcium 40 MG Tablet PO (23:21)
[2024-11-03] MEDS: Pantoprazole Sodium 40 MG in 0.9% Normal Saline (100mL MB+) 100 ML 330 MG IV (23:43)
[2024-11-03] MEDS: 0.9% Saline Lock 10 ML Syringe IV (23:45)
[2024-11-04] VITALS (18 sets, daily range): BP systolic 121–154; BP diastolic 56–80; PULSE 76–98; RESP 12–29; TEMP 36–36.5; O2SAT 24–100; BMI 23.8
[2024-11-04 00:28] LABS: Bedside Glucose 176 mg/dL (74-106)
[2024-11-04 01:04] LABS: Troponin T High Sensitivity 131 ng/L (<=22)
--- NOTE | 2024-11-04 01:15 | EKG12_ITS ---
Test Reason : AARYTHMIA Blood Pressure : */* mmHG Vent. Rate : 106 BPM Atrial Rate : 106 BPM P-R Int : 156 ms QRS Dur : 104 ms QT Int : 334 ms P-R-T Axes : 66 54 -81 degrees QTcB Int : 443 ms Sinus tachycardia with Premature atrial complexes Minimal voltage criteria for LVH, may be normal variant ( Sokolow-Pineda ) ST & T wave abnormality, consider inferior ischemia Abnormal ECG When compared with ECG of 03-Nov-2024 17:42, MANUAL COMPARISON REQUIRED DATA IS UNCONFIRMED Confirmed by JULIO CRAWFORD, MIKY ([id number]), film editor supervisor KIRSTIN SOSA ([id number]) on 11/04/2024 12:48:46 PM Referred By: ROGERS Confirmed By: MIKY KIM MD
[2024-11-04 01:44] LABS: Allen Test Positive; Base Excess 9 mmol/L (-2 to +2); Bicarbonate 34.7 mmol/L (22-26); Blood Gas Specimen Type ART; Mode Not entered; O2 Delivery Device CPAP; PO2 106 mmHG (75-100); SITE R Radial; SO2 97 % (95-99); Total Carbon Dioxide 37 mmol/L; pCO2 66.8 mmHg (35-45); pH 7.32 (7.35-7.45)
--- NOTE | 2024-11-04 01:51 | ECHOCS_ITS ---
Reason For Study Reason For Study: Chest pain Procedure This was a 2D Doppler, Color Flow transthoracic echocardiogram. The study was technically difficult. Exam performed portable in patient room. Left Ventricle Normal LV size. The left ventricular ejection fraction is 45 %. Stage 1 diastolic dysfunction. There is mild to moderate global hypokinesis of the left ventricle. Right Ventricle Normal right ventricle. Normal systolic function. Atria The left atrium is mildly enlarged. Normal right atrium. Mitral Valve Normal mitral valve. Moderate (2+) eccentric mitral valve insufficiency. Tricuspid Valve Normal tricuspid valve. Moderate (2+) tricuspid valve insufficiency. Pulmonary artery systolic pressure is 65 mmHg. Moderate pulmonary hypertension. Aortic Valve Trisinus/trileaflet aortic valve. Pulmonic Valve Normal pulmonic valve. Great Vessels Normal aortic root. The pulmonary artery is normal size. Inferior vena cava collapse with respiration. Pericardium/Pleural No pericardial effusion. Medication Diluted definity 2.0ml given slow IV push to enhance endocardial definition. MMode/2D Measurements & Calculations LVIDd: 5.4 cm IVSd: 1.1 cm Ao root diam: 3.2 cm LVIDs: 4.8 cm LVPWd: 1.2 cm RVDd: 2.9 cm FS: 10.5 % LAV(MOD-bp): 61.8 ml LVAd ap4: 35.3 cm2 SV(MOD-sp4): 62.9 ml LAV(MOD-bp) Indexed: 30.1 ml/m2 LVLd ap4: 8.4 cm SI(MOD-sp4): 30.7 ml/m2 LAV(MOD-sp2): 53.7 ml EDV(MOD-sp4): 124.0 ml LAV(MOD-sp4): 63.0 ml EDV(sp4-el): 126.1 ml LVAs ap4: 23.3 cm2 LVLs ap4: 7.5 cm ESV(MOD-sp4): 61.1 ml ESV(sp4-el): 61.4 ml EF(MOD-sp4): 50.7 % EF(sp4-el): 51.3 % SV(sp4-el): 64.7 ml LA A4 area: 20.6 cm2 LA dimension(2D): 4.4 cm RA A4 area: 14.2 cm2 TAPSE: 1.2 cm Time Measurements MV dec time: 0.25 sec Doppler Measurements & Calculations MV E max dirk: 91.2 cm/sec Lat Peak E' Dirk: 7.0 cm/sec Med Peak E' Dirk: 6.8 cm/sec MV A max dirk: 116.1 cm/sec E/E' lat: 12.9 E/E' med: 13.3 MV E/A: 0.79 MV dec slope: 367.2 cm/sec2 Ao V2 max: 93.6 cm/sec LV V1 max: 74.4 cm/sec Ao max P.5 mmHg LV V1 max P.2 mmHg Ao V2 mean: 71.5 cm/sec LV V1 mean P.2 mmHg Ao mean P.2 mmHg LV V1 mean: 51.4 cm/sec Ao V2 VTI: 20.0 cm LV V1 VTI: 13.9 cm AV (velocity ratio): 0.70 PA V2 max: 55.1 cm/sec TR max dirk: 397.1 cm/sec TR max P.1 mmHg ECHO/Echo Complete W/ Contrast Interpretation Summary Normal LV size. The left ventricular ejection fraction is 45 %. There is mild to moderate global hypokinesis of the left ventricle. Stage 1 diastolic dysfunction. Pulmonary artery systolic pressure is 65 mmHg. The left atrium is mildly enlarged. Moderate pulmonary hypertension. Contrast injection was performed. Ordering Physician: Naga Leigh Referring Physician: Royce Carroll M.D. Performed By: Kiara Velasquez RDCS
[2024-11-04] MEDS: Aspirin 81 MG TAB.CHEW 162 MG PO (02:25)
[2024-11-04] MEDS: Enoxaparin 80 MG/0.8 ML Syringe SC (02:25)
[2024-11-04 02:30] LABS: Troponin T High Sens 2 HR 139 ng/L (<=22)
[2024-11-04 03:51] LABS: Allen Test Positive; Base Excess 7 mmol/L (-2 to +2); Bicarbonate 33.2 mmol/L (22-26); Blood Gas Specimen Type ART; Mode Not entered; O2 Delivery Device BiPAP; PEEP 8; PIP 16; PO2 92 mmHG (75-100); RR 14; SITE R Radial; SO2 96 % (95-99); Total Carbon Dioxide 35 mmol/L; pCO2 63.5 mmHg (35-45); pH 7.33 (7.35-7.45)
[2024-11-04 04:15] LABS: Absolute Lymphocyte Count 0.47 X10^3/uL (0.83-4.51); Absolute Neutrophil Count 11.5 X10^3/uL (2.0-7.7); Basophil# 0.01 X10^3/uL; Basophil% 0.1 % (0-1); Hematocrit 27.8 % (40-54); Lymphocyte # 0.47 X10^3/ul (0.83-4.51); Lymphocyte % 3.8 % (19-41); Mean Corp Hgb Conc 32.4 g/dL (32-36); Mean Corpuscular Hgb 33.3 pg (27.0-32.0); Mean Platelet Vol. 9.8 fl (6.2-12.0); Monocyte# 0.33 X10^3/uL; Monocyte% 2.7 % (0-10); NRBC Flagged by Analyzer 0 % (0-5); Neutrophil # 11.51 X10^3/uL (2.7-7.7); POSITIVE DIFFERENTIAL YES; Platelet Count 179 K/mm3 (150-450); RBC Distribution Width CV 14.2 % (11.6-14.6); RBC Distribution Width SD 53.1 fl (35.1-43.9); White Blood Count 12.4 K/mm3 (4.4-11.0)
[2024-11-04 05:12] LABS: Troponin T High Sens 4 HR 133 ng/L (<=22)
[2024-11-04 05:37] LABS: AST(SGOT) 23 U/L (<=37); Alanine Aminotransfer ALT/SGPT 8 U/L (<=46); Albumin, Serum 3.3 g/dL (3.4-4.8); Alkaline Phosphatase 110 U/L (40-129); Anion Gap 13 (5-15); BUN 27 mg/dL (4-19); BUN/Creat Ratio 20.4 RATIO (10-20); Calcium,Total 8.6 mg/dL (7.6-11.0); Carbon Dioxide 23.9 mmol/L (21.0-32.0); Chloride 99 mmol/L (98-108); Cholesterol 76 mg/dL (<=200); Creatinine, Serum 1.33 mg/dL (0.70-1.20); EST Glomerular Filtration Rate 56 (>60); Globulin 3.3 g/dL (2.2-4.2); Glucose 175 mg/dL (70-99); High Density Lipoprotein 40 mg/dL; Low Density Lipoprotein Calc. 23 mg/dL; Phosphorus 4.5 mg/dL (2.7-4.5); Potassium 5.5 mmol/L (3.3-5.1); Protein, Total 6.5 g/dL (5.9-8.4); Sodium Level 136 mmol/L (133-145); Total Bilirubin 0.29 mg/dL (0.00-1.30); Triglycerides 67 mg/dL; Very Low Density Lipoprotein 13 mg/dL (5-40); cholesterol:hdl ratio screen 1.91
[2024-11-04] MEDS: Piperacil/Tazobactam 3.375 GM in 0.9% Normal Saline (50mL MB+) 50 ML IV ×3 (05:41→20:09)
[2024-11-04 07:07] LABS: Bedside Glucose 163 mg/dL (74-106)
[2024-11-04] MEDS: Ipratropium/Albuterol Sulfate 3 ML AMPUL.NEB INHALATION ×4 (07:11→23:45)
[2024-11-04] MEDS: Fluticasone 0.05% 1 SPRAY NASAL.SRY NASAL ×2 (09:21→20:05)
[2024-11-04] MEDS: Metoprolol Tartrate 50 MG Tablet PO ×2 (09:22→20:08)
[2024-11-04] MEDS: MethylPREDNISolone 125 MG/2 ML Vial 60 MG IV (09:22)
[2024-11-04] MEDS: amLODIPine 5 MG Tablet PO (09:22)
[2024-11-04] MEDS: Clopidogrel Bisulfate 75 MG Tablet PO (09:22)
[2024-11-04] MEDS: 0.9% Saline Lock 10 ML Syringe IV ×2 (09:23→18:03)
[2024-11-04] MEDS: Pantoprazole Sodium 40 MG in 0.9% Normal Saline (100mL MB+) 100 ML 330 MG IV (10:36)
[2024-11-04 12:18] LABS: Bedside Glucose 168 mg/dL (74-106)
--- NOTE | 2024-11-04 14:07 | CASEMGMT ---
SW completed an SDNY assessment with patient. Patient expressed concern with affording medications and getting his furnace fixed to the machine milker. SW met with patient. Introduced self and role at [facility]. Patient stated he is having troubles paying for his Trelegy. His insurance is covering it, but his co-pay is $300 and some dollars. His insurance is allowing him to pay this in monthly increments. SW did provide patient with a list of prescription assistance programs. SW told patient SW will look to see if SW can find any assistance programs for Trelegy. SW also spoke with patient about his furnace. Patient said he is waiting on [employer] to call him back. SW asked patient if he has heard of the [employer] Program. Patient said he tried that, but they won't help him as his trailer is on a rented lot. SW encouraged patient to continue to try and reach [employer] to see if they are able to help. SW will check online to see if there are any programs to help with Trelegy. Dalila Martinez CMM INSPECTOR [place]
--- NOTE | 2024-11-04 15:38 | PN.HOSP_ITS ---
Subjective Subjective Patient sitting up in chair, had just been up moving around and feeling significantly short of breath reports he does think he is recovering Objective Data Objective Data Vital Signs: Vital Signs Temp Pulse Resp BP Pulse Ox O2 Del Method O2 Flow Rate 97.3 F L 82 20 H 134/72 H 98 High Flow 4 11/04/24 14:35 11/04/24 15:04 11/04/24 15:04 11/04/24 14:35 11/04/24 15:04 11/04/24 15:04 11/04/24 15:04 FiO2 37 11/04/24 07:58 Oxygen Flow Rate (L/min) 4 Oxygen Delivery Method High Flow Weight: 81.9 kg Body Mass Index (BMI) 23.8 Intake & Output: Intake and Output for Last 24 Hours 11/02/24 11/03/24 11/04/24 23:59 23:59 23:59 Intake Total 55.83 / 55.83 1264.17 / 1264.17 Output Total 100 / 100 Balance 55.83 / 55.83 1164.17 / 1164.17 Lab / Micro Data 11/04/24 03:49 11/04/24 03:49 Labs: Laboratory Results - last 24 hr 11/03/24 17:15: WBC 12.7 H, RBC 3.08 L, Hgb 10.1 L, Hct 31.9 L, MCV 103.6 H, MCH 32.8 H, MCHC 31.7 L, RDW Std Deviation 54.4 H, RDW Coeff of Christine 14.5, Plt Count 204, MPV 10.1, Immature Gran % (Auto) 0.200, Neut % (Auto) 88.5 H, Lymph % (Auto) 5.6 L, [place] % (Auto) 5.4, Eos % (Auto) 0.2, Baso % (Auto) 0.1, Absolute Neuts (auto) 11.2 H, Absolute Lymphs (auto) 0.71 L, Nucleated RBC % 0, Sodium 136, Potassium 4.8, Chloride 96 L, Carbon Dioxide 29.8, Anion Gap 11, BUN 25 H, Creatinine 1.51 H, Estim Creat Clear Calc 49.24 L, Est GFR (MDRD) Non-Af 48 L, BUN/Creatinine Ratio 16.3, Glucose 201 H, Hemoglobin A1c 6.6, Calcium 9.2, Magnesium 1.8, Vitamin B12 1475 H, TSH 1.190 11/03/24 23:44: POC Glucose 176 H 11/03/24 23:59: Troponin T High Sens 131 H*, Serum Folate 19.60 11/04/24 01:46: Troponin T Hi Sens 2 Hr 139 H* 11/04/24 03:49: WBC 12.4 H, RBC 2.70 L, Hgb 9.0 L, Hct 27.8 L, MCV 103.0 H, MCH 33.3 H, MCHC 32.4, RDW Std Deviation 53.1 H, RDW Coeff of Christine 14.2, Plt Count 179, MPV 9.8, Immature Gran % (Auto) 0.400, Neut % (Auto) 93.0 H, Lymph % (Auto) 3.8 L, [place] % (Auto) 2.7, Eos % (Auto) 0.0, Baso % (Auto) 0.1, Absolute Neuts (auto) 11.5 H, Absolute Lymphs (auto) 0.47 L, Nucleated RBC % 0, Sodium 136, P otassium 5.5 H, Chloride 99, Carbon Dioxide 23.9, Anion Gap 13, BUN 27 H, C reatinine 1.33 H, Estim Creat Clear Calc 55.90, Est GFR (MDRD) Non-Af 56 L, B UN/Creatinine Ratio 20.4 H, Glucose 175 H, Calcium 8.6, Phosphorus 4.5, Total Bilirubin 0.29, AST 23, ALT 8, Alkaline Phosphatase 110, Troponin T Hi Sens 4Hr 133 H*, Total Protein 6.5, Albumin 3.3 L, Globulin 3.3, Albumin/Globulin Ratio 1.0, Triglycerides 67, Cholesterol 76, LDL Cholesterol, Calc 23, VLDL Cholesterol 13, HDL Cholesterol 40, Cholesterol/HDL Ratio 1.91 11/04/24 05:39: POC Glucose 163 H 11/04/24 11:54: POC Glucose 168 H Micro: Microbiology 11/03/24 18:55 Mucosa - Nose SARS-CoV-2, Influenza & RSV (PCR) - Final ABG Data ABG results: ABG 11/03/24 11/04/24 11/04/24 23:05 01:41 03:47 Specimen Type ART ART ART Sample Site R Radial R Radial R Radial pH 7.32 L 7.32 L 7.33 L Bicarbonate Actual 32.9 H 34.7 H 33.2 H Total CO2 35 37 35 Base Excess 7 H 9 H 7 H O2 Saturation 97 97 96 O2 % 6.0 50.0 40.0 ABG pCO2 64.2 H 66.8 H 63.5 H ABG pO2 99 106 H 92 Raymon Test Positive Positive Positive Respiration Rate 14 O2 Delivery Device Cannula CPAP BiPAP Vent Mode Not entered Not entered Not entered POC PEEP 8 Peak Inspir Pressure 16 Radiography Diagnostic Testing: Radiology Impression Chest X-Ray 11/03/24 19:30 IMPRESSION: Findings concerning for pneumonia. [facility] Echocardiogram 11/04/24 01:51 Interpretation Summary Normal LV size. The left ventricular ejection fraction is 45 %. There is mild to moderate global hypokinesis of the left ventricle. Stage 1 diastolic dysfunction. Pulmonary artery systolic pressure is 65 mmHg. The left atrium is mildly enlarged. Moderate pulmonary hypertension. Contrast injection was performed. Ordering Physician: Naga Leigh Referring Physician: Royce Carroll M.D. Performed By: Kiara Velaqsuez RDCS Physical Exam Narrative General: Alert, oriented HEENT: Atraumatic, normocephalic Eyes: Anicteric, normal conjunctiva, extraocular movements grossly intact Neck: Supple Respiratory: Increased respiratory effort and diminished bilaterally Cardiovascular: Regular rate and rhythm GI: Soft, nontender, nondistended Extremities: No edema Musculoskeletal: Moving all extremities Neuro: No overt focal neurological deficits Skin: No rashes appreciated Psych: Cooperative Assessment & Plan Assessment/Plan (1) Aspiration pneumonia: QUALIFIERS: Aspiration pneumonia type: unspecified Laterality: b ilateral Lung location: unspecified part of lung Qualified Code(s): J69.0 - Pneumonitis due to inhalation of food and vomit (2) COPD exacerbation: PLAN: Plan # Acute hypoxic respiratory failure on chronic hypoxic respiratory failure on home O2 secondary to acute exacerbation of COPD and suspected component of aspiration pneumonia -Admit to floor, continuous O2 monitoring -Imaging: Chest x-ray with findings concerning for pneumonia -DuoNebs and as needed albuterol -Sputum culture, COVID negative, respiratory panel ordered -Urine antigens -Mucinex, I/S -Given concern for aspiration PNA patient placed on Zosyn -O2 in place, wean as tolerated -IV methylprednisone -Speech consult # Elevated troponin - Suspect this is due to patient's respiratory distress and hypoxia necessitating BiPAP - Troponins are elevated at 131, increased to 139, subsequently decreased to 133, again suspect this is breathing related and do not suspect a type I event - Continue Plavix, beta-kaushik, statin # Global hypokinesis of left ventricle/stage I diastolic dysfunction/moderate pulmonary hypertension - Patient's echocardiogram revealed EF of 45% with mild to moderate global hypokinesis of left ventricle, stage I diastolic dysfunction and PASP of 65 with moderate pulmonary hypertension - Patient received IV fluids on presentation, suspect that this may be contributing to his shortness of breath and difficulty weaning O2 given the global hypokinesis, diastolic dysfunction, and PASP so we will give a dose of Lasix # History of coronary artery disease with - Previous stenting and CABG - Continue home Plavix and statin - Continue home beta-kaushik #Type 2 diabetes mellitus -Glucose checks and sliding scale insulin -Patient n.p.o. pending speech evaluation #Hypertension - Patient's home metoprolol and amlodipine continued #GERD -Continue PPI #Depression/anxiety -Continue home medications #DVT ppx: Heparin subcu Anabell Hinkle MD Charges/Coding Visit Charges Inpatient E&M: 42027 Subs Hosp L2
[2024-11-04 16:54] LABS: Anion Gap 11 (5-15); BUN 32 mg/dL (4-19); BUN/Creat Ratio 21.3 RATIO (10-20); Calcium,Total 8.7 mg/dL (7.6-11.0); Chloride 100 mmol/L (98-108); Creatinine, Serum 1.51 mg/dL (0.70-1.20); EST Glomerular Filtration Rate 48 (>60); Estimated Creatinine Clearance 49.24 ml/min (50-250); Glucose 209 mg/dL (70-99); Potassium 5.5 mmol/L (3.3-5.1); Sodium Level 137 mmol/L (133-145)
[2024-11-04 17:26] LABS: Bedside Glucose 184 mg/dL (74-106)
[2024-11-04] MEDS: Furosemide 40 MG/4 ML Vial IV (18:04)
[2024-11-04] MEDS: Sodium Polystyrene Sulfonate 15 GM/60 ML UDC 30 GM PO (18:09)
[2024-11-04] MEDS: Heparin Injection (Vial) 5,000 UNIT/ML VIAL 5000 UNIT SC (20:07)
[2024-11-04] MEDS: Methylprednisolone Sod Succ 40 MG/ML VIAL IV (20:07)
[2024-11-04] MEDS: Atorvastatin Calcium 40 MG Tablet PO (20:07)
[2024-11-04] MEDS: guaiFENesin 1,200 MG Tablet 1200 MG PO (20:09)
[2024-11-05] VITALS (14 sets, daily range): BP systolic 140–167; BP diastolic 66–80; PULSE 84–106; RESP 18–34; TEMP 36.2–36.8; O2SAT 92–99; BMI 23.7
[2024-11-05] MEDS: Zinc Sulfate 50 mg zinc (220 mg) ORAL capsule PO (00:22)
[2024-11-05] MEDS: Cholecalciferol (Vit D3) 125 MCG CAPSULE (5,000 UNITS) PO (00:22)
[2024-11-05] MEDS: Insulin Lispro 100 UNIT/ML INSULN.PEN SC ×2 (00:28→05:44)
[2024-11-05 00:43] LABS: Bedside Glucose 192 mg/dL (74-106)
[2024-11-05] MEDS: Ipratropium/Albuterol Sulfate 3 ML AMPUL.NEB INHALATION ×6 (03:15→23:09)
[2024-11-05] MEDS: 0.9% Saline Lock 10 ML Syringe IV ×2 (05:45→13:45)
[2024-11-05] MEDS: Piperacil/Tazobactam 3.375 GM in 0.9% Normal Saline (50mL MB+) 50 ML IV ×3 (05:45→22:15)
[2024-11-05] MEDS: Methylprednisolone Sod Succ 40 MG/ML VIAL IV ×3 (05:45→22:15)
[2024-11-05 06:07] LABS: Bedside Glucose 191 mg/dL (74-106)
[2024-11-05 06:08] LABS: Absolute Neutrophil Count 5.8 X10^3/uL (2.0-7.7); Hematocrit 27.1 % (40-54); Hemoglobin 8.7 g/dL (13.0-16.5); Lymphocyte % 11.1 % (19-41); Mean Corp Hgb Conc 32.1 g/dL (32-36); Mean Corpuscular Volume 102.7 fL (80-94); Mean Platelet Vol. 9.8 fl (6.2-12.0); Monocyte# 0.57 X10^3/uL; Monocyte% 7.9 % (0-10); NRBC Flagged by Analyzer 0 % (0-5); Neutrophil # 5.81 X10^3/uL (2.7-7.7); Neutrophil % 80.7 % (47-70); Platelet Count 188 K/mm3 (150-450); RBC Distribution Width SD 52.8 fl (35.1-43.9); Red Blood Count 2.64 M/mm3 (4.6-6.2); White Blood Count 7.2 K/mm3 (4.4-11.0)
[2024-11-05 06:18] LABS: Phosphorus 4.8 mg/dL (2.7-4.5)
[2024-11-05 06:19] LABS: Anion Gap 12 (5-15); BUN 36 mg/dL (4-19); BUN/Creat Ratio 21.8 RATIO (10-20); Calcium,Total 8.4 mg/dL (7.6-11.0); Carbon Dioxide 27.9 mmol/L (21.0-32.0); Chloride 102 mmol/L (98-108); Creatinine, Serum 1.63 mg/dL (0.70-1.20); EST Glomerular Filtration Rate 44 (>60); Estimated Creatinine Clearance 45.61 ml/min (50-250); Glucose 187 mg/dL (70-99); Potassium 4.4 mmol/L (3.3-5.1); Sodium Level 142 mmol/L (133-145)
[2024-11-05] MEDS: Fluticasone 0.05% 1 SPRAY NASAL.SRY NASAL ×2 (09:57→22:16)
[2024-11-05] MEDS: amLODIPine 5 MG Tablet PO (09:57)
[2024-11-05] MEDS: Clopidogrel Bisulfate 75 MG Tablet PO (09:57)
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
[2024-11-05 12:38] LABS: Bedside Glucose 176 mg/dL (74-106)
--- NOTE | 2024-11-05 13:54 | PN.HOSP_ITS ---
Reason for Visit Reason for Visit: Diagnoses Nutritional anemia, unspecified (11/03/24) Type 2 diabetes mellitus without complications (11/03/24) Essential (primary) hypertension (11/03/24) Chronic obstructive pulmonary disease with (acute) exacerbation (11/03/24) Pneumonitis due to inhalation of food and vomit (11/03/24) Other abnormalities of breathing (11/03/24) Chest pain, unspecified (11/03/24) Other specified abnormal findings of blood chemistry (11/03/24) Subjective Subjective Patient reports feeling a little bit better today, still significantly short of breath and requiring O2 but better than yesterday Objective Data Objective Data Vital Signs: Vital Signs Temp Pulse Resp BP Pulse Ox O2 Del Method O2 Flow Rate 98.3 F 102 H 34 H 154/73 H 93 High Flow 4 11/05/24 12:00 11/05/24 12:00 11/05/24 12:00 11/05/24 12:00 11/05/24 12:01 11/05/24 12:00 11/05/24 12:01 FiO2 37 11/04/24 22:00 Oxygen Flow Rate (L/min) 4 Oxygen Delivery Method High Flow Weight: 81.7 kg Body Mass Index (BMI) 23.7 Intake & Output: Intake and Output for Last 24 Hours 11/03/24 11/04/24 11/05/24 23:59 23:59 23:59 Intake Total 55.83 / 55.83 1434.17 / 1434.17 100 / 100 Output Total 960 / 960 Balance 55.83 / 55.83 474.17 / 474.17 100 / 100 Lab / Micro Data 11/05/24 05:33 11/05/24 05:33 Labs: Laboratory Results - last 24 hr 11/04/24 15:49: Sodium 137, Potassium 5.5 H, Chloride 100, Carbon Dioxide 26.0, Anion Gap 11, BUN 32 H, Creatinine 1.51 H, Estim Creat Clear Calc 49.24 L, Est GFR (MDRD) Non-Af 48 L, BUN/Creatinine Ratio 21.3 H, Glucose 209 H, Calcium 8.7 11/04/24 17:02: POC Glucose 184 H 11/05/24 00:24: POC Glucose 192 H 11/05/24 05:33: WBC 7.2, RBC 2.64 L, Hgb 8.7 L, Hct 27.1 L, MCV 102.7 H, MCH 33.0 H, MCHC 32.1, RDW Std Deviation 52.8 H, RDW Coeff of Christine 14.0, Plt Count 188, MPV 9.8, Immature Gran % (Auto) 0.300, Neut % (Auto) 80.7 H, Lymph % (Auto) 11.1 L, [place] % (Auto) 7.9, Eos % (Auto) 0.0, Baso % (Auto) 0.0, Absolute Neuts (auto) 5.8, Absolute Lymphs (auto) 0.80 L, Nucleated RBC % 0, Sodium 142, Potassium 4.4, Chloride 102, Carbon Dioxide 27.9, Anion Gap 12, BUN 36 H, C reatinine 1.63 H, Estim Creat Clear Calc 45.61 L, Est GFR (MDRD) Non-Af 44 L, B UN/Creatinine Ratio 21.8 H, Glucose 187 H, Calcium 8.4, Phosphorus 4.8 H 11/05/24 05:41: POC Glucose 191 H 11/05/24 11:57: POC Glucose 176 H Micro: Microbiology 11/04/24 16:00 Mucosa - Nasopharyngeal Respiratory Panel (PCR) - Final 11/04/24 19:08 Urine, Clean Catch Legionella Antigen - Final 11/04/24 19:08 Urine, Clean Catch Streptococcus pneumoniae Antigen (M - Final 11/03/24 18:55 Mucosa - Nose SARS-CoV-2, Influenza & RSV (PCR) - Final Radiography Diagnostic Testing: Radiology Impression Echocardiogram 11/04/24 01:51 Interpretation Summary Normal LV size. The left ventricular ejection fraction is 45 %. There is mild to moderate global hypokinesis of the left ventricle. Stage 1 diastolic dysfunction. Pulmonary artery systolic pressure is 65 mmHg. The left atrium is mildly enlarged. Moderate pulmonary hypertension. Contrast injection was performed. Ordering Physician: Naga Leigh Referring Physician: Royce Carroll M.D. Performed By: Kiara Velasquez RDCS Physical Exam Narrative General: Alert, oriented HEENT: Atraumatic, normocephalic Eyes: Anicteric, normal conjunctiva, extraocular movements grossly intact Neck: Supple Respiratory: Increased respiratory effort with wheezes bilaterally but better airflow Cardiovascular: Regular rate and rhythm GI: Soft, nontender, nondistended Extremities: No edema Musculoskeletal: Moving all extremities Neuro: No overt focal neurological deficits Skin: No rashes appreciated Psych: Cooperative Assessment & Plan Assessment/Plan (1) Aspiration pneumonia: QUALIFIERS: Aspiration pneumonia type: unspecified Laterality: b ilateral Lung location: unspecified part of lung Qualified Code(s): J69.0 - Pneumonitis due to inhalation of food and vomit (2) COPD exacerbation: PLAN: Plan # Acute hypoxic respiratory failure on chronic hypoxic respiratory failure on home O2 secondary to acute exacerbation of COPD and suspected component of aspiration pneumonia -Admit to floor, continuous O2 monitoring -Imaging: Chest x-ray with findings concerning for pneumonia -DuoNebs and as needed albuterol -Sputum culture, COVID negative, respiratory panel ordered -Urine antigens -Mucinex, I/S -Given concern for aspiration PNA patient placed on Zosyn -O2 in place, wean as tolerated -IV methylprednisone -Speech consult -11/05: Patient 93% on 4 L high flow but is steadily improving, initially viral swab came back with several pathogens however re-reporting reported it as negative, in light of this we will continue Zosyn, nebs, steroids. Patient is still n.p.o. as he had a coughing spell snf through his MBSS, no aspiration, however it dropped him to 81% and he was tachypneic and it took 5 minutes and increased O2 to recover, bedside attempts will be retrialed tomorrow if respiratory status is stable # Elevated troponin - Suspect this is due to patient's respiratory distress and hypoxia necessitating BiPAP - Troponins are elevated at 131, increased to 139, subsequently decreased to 133, again suspect this is breathing related and do not suspect a type I event - Continue Plavix, beta-kaushik, statin -11/05: No chest pain, do not suspect that this is ACS in nature # Global hypokinesis of left ventricle/stage I diastolic dysfunction/moderate pulmonary hypertension - Patient's echocardiogram revealed EF of 45% with mild to moderate global hypokinesis of left ventricle, stage I diastolic dysfunction and PASP of 65 with moderate pulmonary hypertension - Patient received IV fluids on presentation, suspect that this may be contributing to his shortness of breath and difficulty weaning O2 given the global hypokinesis, diastolic dysfunction, and PASP so we will give a dose of Lasix -11/05: Patient given one-time dose of Lasix yesterday, monitoring I's and O's and daily weights Chronic medical problems and/or problems not being actively addressed during today's encounter: # History of coronary artery disease with - Previous stenting and CABG - Continue home Plavix and statin - Continue home beta-kaushik #Type 2 diabetes mellitus -Glucose checks and sliding scale insulin -Patient n.p.o. pending speech evaluation #Hypertension - Patient's home metoprolol and amlodipine continued #GERD -Continue PPI #Depression/anxiety -Continue home medications #DVT ppx: Heparin subcu Anabell Hinkle MD Time spent in the patient's overall evaluation,decision-making process, review of diagnostic data, adjustment of management, discussion with other providers, nursing nursing and ancillary staff involved in patient's care documentation, 37 Minutes Charges/Coding Visit Charges Inpatient E&M: 16629 [facility] Hosp L2
[2024-11-05] MEDS: Ascorbic Acid 500 MG Tablet 1000 MG PO (17:29)
[2024-11-05 18:02] LABS: Bedside Glucose 160 mg/dL (74-106)
[2024-11-05] MEDS: Atorvastatin Calcium 40 MG Tablet PO (22:15)
[2024-11-05] MEDS: Metoprolol Tartrate 50 MG Tablet PO (22:15)
[2024-11-05] MEDS: guaiFENesin 1,200 MG Tablet 1200 MG PO (22:15)
[2024-11-05] MEDS: Heparin Injection (Vial) 5,000 UNIT/ML VIAL 5000 UNIT SC (22:16)
[2024-11-06] VITALS (18 sets, daily range): BP systolic 145–167; BP diastolic 69–82; PULSE 82–103; RESP 17–28; TEMP 36.7–36.9; O2SAT 90–100; BMI 22.6
[2024-11-06 00:28] LABS: Bedside Glucose 202 mg/dL (74-106)
[2024-11-06] MEDS: Ipratropium/Albuterol Sulfate 3 ML AMPUL.NEB INHALATION ×4 (03:00→23:26)
[2024-11-06] MEDS: Piperacil/Tazobactam 3.375 GM in 0.9% Normal Saline (50mL MB+) 50 ML IV ×3 (05:30→22:04)
[2024-11-06] MEDS: Methylprednisolone Sod Succ 40 MG/ML VIAL IV ×3 (05:30→22:06)
[2024-11-06 06:28] LABS: Bedside Glucose 174 mg/dL (74-106)
[2024-11-06 07:26] LABS: Absolute Neutrophil Count 6.7 X10^3/uL (2.0-7.7); Hematocrit 27.3 % (40-54); Hemoglobin 8.8 g/dL (13.0-16.5); Mean Corp Hgb Conc 32.2 g/dL (32-36); Mean Corpuscular Hgb 33.2 pg (27.0-32.0); Mean Platelet Vol. 10.1 fl (6.2-12.0); Monocyte# 0.53 X10^3/uL; Monocyte% 6.5 % (0-10); NRBC Flagged by Analyzer 0 % (0-5); Neutrophil # 6.74 X10^3/uL (2.7-7.7); Neutrophil % 82.3 % (47-70); Platelet Count 205 K/mm3 (150-450); RBC Distribution Width CV 14.2 % (11.6-14.6); RBC Distribution Width SD 53.4 fl (35.1-43.9); Red Blood Count 2.65 M/mm3 (4.6-6.2); White Blood Count 8.2 K/mm3 (4.4-11.0)
[2024-11-06 07:41] LABS: Anion Gap 13 (5-15); BUN 36 mg/dL (4-19); BUN/Creat Ratio 22.9 RATIO (10-20); Calcium,Total 8.6 mg/dL (7.6-11.0); Carbon Dioxide 28.8 mmol/L (21.0-32.0); Chloride 101 mmol/L (98-108); Creatinine, Serum 1.58 mg/dL (0.70-1.20); EST Glomerular Filtration Rate 46 (>60); Estimated Creatinine Clearance 45.88 ml/min (50-250); Glucose 183 mg/dL (70-99); Potassium 4.1 mmol/L (3.3-5.1); Sodium Level 143 mmol/L (133-145)
--- NOTE | 2024-11-06 09:31 | PN.HOSP_ITS ---
Reason for Visit Reason for Visit: Diagnoses Nutritional anemia, unspecified (11/03/24) Type 2 diabetes mellitus without complications (11/03/24) Essential (primary) hypertension (11/03/24) Chronic obstructive pulmonary disease with (acute) exacerbation (11/03/24) Pneumonitis due to inhalation of food and vomit (11/03/24) Other abnormalities of breathing (11/03/24) Chest pain, unspecified (11/03/24) Other specified abnormal findings of blood chemistry (11/03/24) Subjective Subjective Patient sitting up in bed, still feeling better than he had but still short of breath and tachypneic, patient anxious to be able to eat food again Objective Data Objective Data Vital Signs: Vital Signs Temp Pulse Resp BP Pulse Ox O2 Del Method O2 Flow Rate 98.2 F 89 22 H 145/69 H 100 Nasal Cannula 5 11/06/24 03:45 11/06/24 03:45 11/06/24 03:45 11/06/24 03:45 11/06/24 06:55 11/06/24 06:55 11/06/24 06:55 FiO2 37 11/04/24 22:00 Oxygen Flow Rate (L/min) 5 Oxygen Delivery Method Nasal Cannula Weight: 77.9 kg Body Mass Index (BMI) 22.6 Intake & Output: Intake and Output for Last 24 Hours 11/04/24 11/05/24 11/06/24 23:59 23:59 23:59 Intake Total 1434.17 / 1434.17 150 / 270 170 / 170 Output Total 960 / 960 250 / 250 Balance 474.17 / 474.17 150 / 20 -80 / -80 Lab / Micro Data 11/06/24 05:19 11/06/24 05:19 Labs: Laboratory Results - last 24 hr 11/05/24 11:57: POC Glucose 176 H 11/05/24 17:28: POC Glucose 160 H 11/05/24 23:59: POC Glucose 202 H 11/06/24 05:19: WBC 8.2, RBC 2.65 L, Hgb 8.8 L, Hct 27.3 L, MCV 103.0 H, MCH 33.2 H, MCHC 32.2, RDW Std Deviation 53.4 H, RDW Coeff of Christine 14.2, Plt Count 205, MPV 10.1, Immature Gran % (Auto) 0.200, Neut % (Auto) 82.3 H, Lymph % (Auto) 11.0 L, [place] % (Auto) 6.5, Eos % (Auto) 0.0, Baso % (Auto) 0.0, Absolute Neuts (auto) 6.7, Absolute Lymphs (auto) 0.90, Nucleated RBC % 0, Sodium 143, Potassium 4.1, Chloride 101, Carbon Dioxide 28.8, Anion Gap 13, BUN 36 H, C reatinine 1.58 H, Estim Creat Clear Calc 45.88 L, Est GFR (MDRD) Non-Af 46 L, B UN/Creatinine Ratio 22.9 H, Glucose 183 H, Calcium 8.6 11/06/24 05:25: POC Glucose 174 H Micro: Microbiology 11/04/24 16:00 Mucosa - Nasopharyngeal Respiratory Panel (PCR) - Final 11/04/24 19:08 Urine, Clean Catch Legionella Antigen - Final 11/04/24 19:08 Urine, Clean Catch Streptococcus pneumoniae Antigen (M - Final 11/03/24 18:55 Mucosa - Nose SARS-CoV-2, Influenza & RSV (PCR) - Final Physical Exam Narrative General: Alert, oriented HEENT: Atraumatic, normocephalic Eyes: Anicteric, normal conjunctiva, extraocular movements grossly intact Neck: Supple Respiratory: Scattered wheezes, still somewhat tachypneic but is improved slightly with better airflow overall Cardiovascular: Regular rate and rhythm GI: Soft, nontender, nondistended Extremities: No edema Musculoskeletal: Moving all extremities Neuro: No overt focal neurological deficits Skin: No rashes appreciated Psych: Cooperative Assessment & Plan Assessment/Plan (1) Aspiration pneumonia: QUALIFIERS: Aspiration pneumonia type: unspecified Laterality: b ilateral Lung location: unspecified part of lung Qualified Code(s): J69.0 - Pneumonitis due to inhalation of food and vomit (2) COPD exacerbation: PLAN: Plan # Acute hypoxic respiratory failure on chronic hypoxic respiratory failure on home O2 secondary to acute exacerbation of COPD and suspected component of aspiration pneumonia -Admit to floor, continuous O2 monitoring -Imaging: Chest x-ray with findings concerning for pneumonia -DuoNebs and as needed albuterol -Sputum culture, COVID negative, respiratory panel ordered -Urine antigens -Mucinex, I/S -Given concern for aspiration PNA patient placed on Zosyn -O2 in place, wean as tolerated -IV methylprednisone -Speech consult -11/05: Patient 93% on 4 L high flow but is steadily improving, initially viral swab came back with several pathogens however re-reporting reported it as negative, in light of this we will continue Zosyn, nebs, steroids. Patient is still n.p.o. as he had a coughing spell [facility] through his MBSS, no aspiration, however it dropped him to 81% and he was tachypneic and it took 5 minutes and increased O2 to recover, bedside attempts will be retrialed tomorrow if respiratory status is stable -11/06: Continues to improve, patient on Zosyn, awaiting further swallow evaluation # Global hypokinesis of left ventricle/stage I diastolic dysfunction/moderate pulmonary hypertension - Patient's echocardiogram revealed EF of 45% with mild to moderate global hypokinesis of left ventricle, stage I diastolic dysfunction and PASP of 65 with moderate pulmonary hypertension - Patient received IV fluids on presentation, suspect that this may be contributing to his shortness of breath and difficulty weaning O2 given the global hypokinesis, diastolic dysfunction, and PASP so we will give a dose of Lasix -11/05: Patient given one-time dose of Lasix yesterday, monitoring I's and O's and daily weights -11/06: Patient is down in weight, given lack of p.o. intake and improvement in respiratory status and decreasing weight will hold off on further empiric Lasix for now, may need to add these back pending respiratory status and oral intake Chronic medical problems and/or problems not being actively addressed during today's encounter: # History of coronary artery disease with - Previous stenting and CABG - Continue home Plavix and statin - Continue home beta-kaushik #Type 2 diabetes mellitus -Glucose checks and sliding scale insulin -Patient n.p.o. pending speech evaluation #Hypertension - Patient's home metoprolol and amlodipine continued #GERD -Continue PPI #Depression/anxiety -Continue home medications # Elevated troponin - Suspect this is due to patient's respiratory distress and hypoxia necessitating BiPAP - Troponins are elevated at 131, increased to 139, subsequently decreased to 133, again suspect this is breathing related and do not suspect a type I event - Continue Plavix, beta-kaushik, statin -11/05: No chest pain, do not suspect that this is ACS in nature #DVT ppx: Heparin subcu Anabell Hinkle MD Time spent in the patient's overall evaluation,decision-making process, review of diagnostic data, adjustment of management, discussion with other providers, nursing nursing and ancillary staff involved in patient's care documentation, 37 Minutes
[2024-11-06] MEDS: Heparin Injection (Vial) 5,000 UNIT/ML VIAL 5000 UNIT SC ×2 (10:11→22:05)
[2024-11-06] MEDS: Cholecalciferol (Vit D3) 125 MCG CAPSULE (5,000 UNITS) PO (10:12)
[2024-11-06] MEDS: Metoprolol Tartrate 50 MG Tablet PO ×2 (10:12→22:08)
[2024-11-06] MEDS: Zinc Sulfate 50 mg zinc (220 mg) ORAL capsule PO (10:12)
[2024-11-06] MEDS: amLODIPine 5 MG Tablet PO (10:12)
[2024-11-06] MEDS: Pantoprazole Sodium 40 MG Tablet PO (10:12)
[2024-11-06] MEDS: guaiFENesin 1,200 MG Tablet 1200 MG PO ×2 (10:13→22:06)
[2024-11-06] MEDS: Ascorbic Acid 500 MG Tablet 1000 MG PO ×2 (10:13→16:15)
[2024-11-06] MEDS: Clopidogrel Bisulfate 75 MG Tablet PO (10:13)
[2024-11-06] MEDS: Fluticasone 0.05% 1 SPRAY NASAL.SRY NASAL ×2 (10:24→22:05)
[2024-11-06 11:49] LABS: Bedside Glucose 196 mg/dL (74-106)
[2024-11-06] MEDS: 0.9% Saline Lock 10 ML Syringe IV ×2 (14:04→22:08)
[2024-11-06] MEDS: Mag Hydrox/Al Hydrox/Simeth 30 ML UDC PO (14:11)
[2024-11-06 17:36] LABS: Bedside Glucose 193 mg/dL (74-106)
[2024-11-06] MEDS: Atorvastatin Calcium 40 MG Tablet PO (22:06)
[2024-11-07] VITALS (18 sets, daily range): BP systolic 146–175; BP diastolic 69–91; PULSE 84–106; RESP 18–30; TEMP 36.3–36.6; O2SAT 90–99; BMI 22.6
[2024-11-07 00:24] LABS: Bedside Glucose 189 mg/dL (74-106)
[2024-11-07] MEDS: Ipratropium/Albuterol Sulfate 3 ML AMPUL.NEB INHALATION ×5 (03:12→23:30)
[2024-11-07] MEDS: Piperacil/Tazobactam 3.375 GM in 0.9% Normal Saline (50mL MB+) 50 ML IV ×3 (05:29→20:59)
[2024-11-07] MEDS: Methylprednisolone Sod Succ 40 MG/ML VIAL IV ×3 (05:30→21:02)
[2024-11-07] MEDS: 0.9% Saline Lock 10 ML Syringe IV ×3 (05:30→21:01)
[2024-11-07 06:07] LABS: Absolute Lymphocyte Count 1.09 X10^3/uL (0.83-4.51); Absolute Neutrophil Count 5.7 X10^3/uL (2.0-7.7); Hematocrit 27.9 % (40-54); Hemoglobin 8.8 g/dL (13.0-16.5); Lymphocyte # 1.09 X10^3/ul (0.83-4.51); Lymphocyte % 14.8 % (19-41); Mean Corp Hgb Conc 31.5 g/dL (32-36); Mean Corpuscular Hgb 32.6 pg (27.0-32.0); Mean Corpuscular Volume 103.3 fL (80-94); Mean Platelet Vol. 9.9 fl (6.2-12.0); Monocyte% 6.8 % (0-10); NRBC Flagged by Analyzer 0.3 % (0-5); Neutrophil # 5.74 X10^3/uL (2.7-7.7); Platelet Count 208 K/mm3 (150-450); RBC Distribution Width CV 13.9 % (11.6-14.6); RBC Distribution Width SD 53.1 fl (35.1-43.9); White Blood Count 7.4 K/mm3 (4.4-11.0)
[2024-11-07 06:11] LABS: Bedside Glucose 173 mg/dL (74-106)
[2024-11-07 07:00] LABS: Anion Gap 13 (5-15); BUN 38 mg/dL (4-19); BUN/Creat Ratio 24.4 RATIO (10-20); Calcium,Total 8.6 mg/dL (7.6-11.0); Carbon Dioxide 27.8 mmol/L (21.0-32.0); Chloride 103 mmol/L (98-108); Creatinine, Serum 1.56 mg/dL (0.70-1.20); EST Glomerular Filtration Rate 47 (>60); Estimated Creatinine Clearance 46.35 ml/min (50-250); Glucose 177 mg/dL (70-99); Potassium 4.6 mmol/L (3.3-5.1); Sodium Level 143 mmol/L (133-145)
--- NOTE | 2024-11-07 09:03 | PN.HOSP_ITS ---
Reason for Visit Reason for Visit: Diagnoses Nutritional anemia, unspecified (11/03/24) Type 2 diabetes mellitus without complications (11/03/24) Essential (primary) hypertension (11/03/24) Chronic obstructive pulmonary disease with (acute) exacerbation (11/03/24) Pneumonitis due to inhalation of food and vomit (11/03/24) Other abnormalities of breathing (11/03/24) Chest pain, unspecified (11/03/24) Other specified abnormal findings of blood chemistry (11/03/24) Subjective Subjective Breathing improving especially at rest but still having significant struggles with movement, patient mostly thirsty and focusing on eating, Objective Data Objective Data Vital Signs: Vital Signs Temp Pulse Resp BP Pulse Ox O2 Del Method O2 Flow Rate 97.3 F L 96 20 H 164/73 H 92 Nasal Cannula 4 11/07/24 08:15 11/07/24 08:15 11/07/24 08:15 11/07/24 08:15 11/07/24 08:15 11/07/24 08:15 11/07/24 08:15 FiO2 37 11/04/24 22:00 Oxygen Flow Rate (L/min) 4 Oxygen Delivery Method Nasal Cannula Weight: 77.7 kg Body Mass Index (BMI) 22.6 Intake & Output: Intake and Output for Last 24 Hours 11/05/24 11/06/24 11/07/24 23:59 23:59 23:59 Intake Total 150 / 270 390 / 390 50 / 50 Output Total 1100 / 1100 250 / 250 Balance 150 / 20 -710 / -710 -200 / -200 Lab / Micro Data 11/07/24 05:15 11/07/24 05:15 Labs: Laboratory Results - last 24 hr 11/06/24 11:21: POC Glucose 196 H 11/06/24 17:17: POC Glucose 193 H 11/07/24 00:01: POC Glucose 189 H 11/07/24 05:15: WBC 7.4, RBC 2.70 L, Hgb 8.8 L, Hct 27.9 L, MCV 103.3 H, MCH 32.6 H, MCHC 31.5 L, RDW Std Deviation 53.1 H, RDW Coeff of Christine 13.9, Plt Count 208, MPV 9.9, Immature Gran % (Auto) 0.400, Neut % (Auto) 78.0 H, Lymph % (Auto) 14.8 L, [place] % (Auto) 6.8, Eos % (Auto) 0.0, Baso % (Auto) 0.0, Absolute Neuts (auto) 5.7, Absolute Lymphs (auto) 1.09, Nucleated RBC % 0.3, Sodium 143, Potassium 4.6, Chloride 103, Carbon Dioxide 27.8, Anion Gap 13, BUN 38 H, C reatinine 1.56 H, Estim Creat Clear Calc 46.35 L, Est GFR (MDRD) Non-Af 47 L, B UN/Creatinine Ratio 24.4 H, Glucose 177 H, Calcium 8.6 11/07/24 05:46: POC Glucose 173 H Micro: Microbiology 11/04/24 16:00 Mucosa - Nasopharyngeal Respiratory Panel (PCR) - Final 11/04/24 19:08 Urine, Clean Catch Legionella Antigen - Final 11/04/24 19:08 Urine, Clean Catch Streptococcus pneumoniae Antigen (M - Final 11/03/24 18:55 Mucosa - Nose SARS-CoV-2, Influenza & RSV (PCR) - Final Physical Exam Narrative General: Alert, oriented HEENT: Atraumatic, normocephalic, does have dry tongue Eyes: Anicteric, normal conjunctiva, extraocular movements grossly intact Neck: Supple Respiratory: Wheezing improving, respiratory status slightly less labored but 1 talking does still have conversational dyspnea Cardiovascular: Regular rate and rhythm GI: Soft, nontender, nondistended Extremities: No edema Musculoskeletal: Moving all extremities Neuro: No overt focal neurological deficits Skin: No rashes appreciated Psych: Cooperative Assessment & Plan Assessment/Plan (1) Aspiration pneumonia: QUALIFIERS: Aspiration pneumonia type: unspecified Laterality: b ilateral Lung location: unspecified part of lung Qualified Code(s): J69.0 - Pneumonitis due to inhalation of food and vomit (2) COPD exacerbation: PLAN: Plan # Acute hypoxic respiratory failure on chronic hypoxic respiratory failure on home O2 secondary to acute exacerbation of COPD and suspected component of aspiration pneumonia -Admit to floor, continuous O2 monitoring -Imaging: Chest x-ray with findings concerning for pneumonia -DuoNebs and as needed albuterol -Sputum culture, COVID negative, respiratory panel ordered -Urine antigens -Mucinex, I/S -Given concern for aspiration PNA patient placed on Zosyn -O2 in place, wean as tolerated -IV methylprednisone -Speech consult -11/05: Patient 93% on 4 L high flow but is steadily improving, initially viral swab came back with several pathogens however re-reporting reported it as negative, in light of this we will continue Zosyn, nebs, steroids. Patient is still n.p.o. as he had a coughing spell custodial through his MBSS, no aspiration, however it dropped him to 81% and he was tachypneic and it took 5 minutes and increased O2 to recover, bedside attempts will be retrialed tomorrow if respiratory status is stable -11/06: Continues to improve, patient on Zosyn, awaiting further swallow evaluation -11/07: Patient is on his home 4 L nasal cannula saturating at 92% but still significantly short of breath on exertion and when trying to eat, patient keep working with PT and speech therapy # Global hypokinesis of left ventricle/stage I diastolic dysfunction/moderate pulmonary hypertension - Patient's echocardiogram revealed EF of 45% with mild to moderate global hypokinesis of left ventricle, stage I diastolic dysfunction and PASP of 65 with moderate pulmonary hypertension - Patient received IV fluids on presentation, suspect that this may be contributing to his shortness of breath and difficulty weaning O2 given the global hypokinesis, diastolic dysfunction, and PASP so we will give a dose of Lasix -11/05: Patient given one-time dose of Lasix yesterday, monitoring I's and O's and daily weights -11/06: Patient is down in weight, given lack of p.o. intake and improvement in respiratory status and decreasing weight will hold off on further empiric Lasix for now, may need to add these back pending respiratory status and oral intake -11/07: Continues to slowly improve overall, continue to monitor respiratory status, still very slow to improve with eating and ambulation may need to consider a repeat chest x-ray and/or BMP, at this time patient appears slightly volume depleted and not overloaded, likely due to n.p.o. while working with speech therapy due to concerns for aspiration Chronic medical problems and/or problems not being actively addressed during today's encounter: # History of coronary artery disease with - Previous stenting and CABG - Continue home Plavix and statin - Continue home beta-kaushik #Type 2 diabetes mellitus -Glucose checks and sliding scale insulin -Patient n.p.o. pending speech evaluation #Hypertension - Patient's home metoprolol and amlodipine continued #GERD -Continue PPI #Depression/anxiety -Continue home medications # Elevated troponin - Suspect this is due to patient's respiratory distress and hypoxia necessitating BiPAP - Troponins are elevated at 131, increased to 139, subsequently decreased to 133, again suspect this is breathing related and do not suspect a type I event - Continue Plavix, beta-kaushik, statin -11/05: No chest pain, do not suspect that this is ACS in nature #DVT ppx: Heparin subcu Anabell Hinkle MD Time spent in the patient's overall evaluation,decision-making process, review of diagnostic data, adjustment of management, discussion with other providers, nursing nursing and ancillary staff involved in patient's care documentation, 36 Minutes Charges/Coding Visit Charges Inpatient E&M: 70488 Subs Hosp L2
[2024-11-07] MEDS: Fluticasone 0.05% 1 SPRAY NASAL.SRY NASAL ×2 (09:04→21:02)
[2024-11-07] MEDS: Pantoprazole Sodium 40 MG Tablet PO (09:05)
[2024-11-07] MEDS: amLODIPine 5 MG Tablet PO (09:05)
[2024-11-07] MEDS: Ascorbic Acid 500 MG Tablet 1000 MG PO ×2 (09:05→17:40)
[2024-11-07] MEDS: Cholecalciferol (Vit D3) 125 MCG CAPSULE (5,000 UNITS) PO (09:05)
[2024-11-07] MEDS: Metoprolol Tartrate 50 MG Tablet PO ×2 (09:06→21:03)
[2024-11-07] MEDS: guaiFENesin 1,200 MG Tablet 1200 MG PO ×2 (09:06→21:02)
[2024-11-07] MEDS: Clopidogrel Bisulfate 75 MG Tablet PO (09:06)
[2024-11-07] MEDS: Zinc Sulfate 50 mg zinc (220 mg) ORAL capsule PO (09:06)
[2024-11-07] MEDS: Heparin Injection (Vial) 5,000 UNIT/ML VIAL 5000 UNIT SC ×2 (09:07→21:02)
[2024-11-07 11:44] LABS: Bedside Glucose 215 mg/dL (74-106)
[2024-11-07 18:01] LABS: Bedside Glucose 170 mg/dL (74-106)
[2024-11-07] MEDS: Atorvastatin Calcium 40 MG Tablet PO (21:02)
[2024-11-08] VITALS (21 sets, daily range): BP systolic 148–169; BP diastolic 69–86; PULSE 80–95; RESP 17–26; TEMP 36.2–36.8; O2SAT 82–100; BMI 22.3
[2024-11-08] LABS: Bedside Glucose 202 mg/dL (74-106)
[2024-11-08] MEDS: Ipratropium/Albuterol Sulfate 3 ML AMPUL.NEB INHALATION ×6 (03:34→23:49)
[2024-11-08 04:36] LABS: Absolute Lymphocyte Count 0.92 X10^3/uL (0.83-4.51); Absolute Neutrophil Count 4.9 X10^3/uL (2.0-7.7); Basophil# 0.01 X10^3/uL; Basophil% 0.2 % (0-1); Hematocrit 29.2 % (40-54); Hemoglobin 9.2 g/dL (13.0-16.5); Lymphocyte # 0.92 X10^3/ul (0.83-4.51); Lymphocyte % 14.7 % (19-41); Mean Corp Hgb Conc 31.5 g/dL (32-36); Mean Corpuscular Hgb 32.5 pg (27.0-32.0); Mean Corpuscular Volume 103.2 fL (80-94); Mean Platelet Vol. 9.5 fl (6.2-12.0); Monocyte# 0.35 X10^3/uL; Monocyte% 5.6 % (0-10); NRBC Flagged by Analyzer 0 % (0-5); Neutrophil # 4.94 X10^3/uL (2.7-7.7); Neutrophil % 79.2 % (47-70); Platelet Count 195 K/mm3 (150-450); RBC Distribution Width CV 13.9 % (11.6-14.6); RBC Distribution Width SD 53.1 fl (35.1-43.9); Red Blood Count 2.83 M/mm3 (4.6-6.2); White Blood Count 6.2 K/mm3 (4.4-11.0)
[2024-11-08] MEDS: Methylprednisolone Sod Succ 40 MG/ML VIAL IV ×3 (05:01→20:12)
[2024-11-08] MEDS: Piperacil/Tazobactam 3.375 GM in 0.9% Normal Saline (50mL MB+) 50 ML IV ×3 (05:01→20:10)
[2024-11-08] MEDS: 0.9% Saline Lock 10 ML Syringe IV ×3 (05:01→20:12)
[2024-11-08 05:02] LABS: Anion Gap 10 (5-15); BUN 38 mg/dL (4-19); BUN/Creat Ratio 25.1 RATIO (10-20); Calcium,Total 8.7 mg/dL (7.6-11.0); Carbon Dioxide 30.1 mmol/L (21.0-32.0); Chloride 101 mmol/L (98-108); Creatinine, Serum 1.51 mg/dL (0.70-1.20); EST Glomerular Filtration Rate 48 (>60); Estimated Creatinine Clearance 47.27 ml/min (50-250); Glucose 207 mg/dL (70-99); Potassium 4.8 mmol/L (3.3-5.1); Sodium Level 141 mmol/L (133-145)
[2024-11-08 06:35] LABS: Bedside Glucose 179 mg/dL (74-106)
[2024-11-08] MEDS: Fluticasone 0.05% 1 SPRAY NASAL.SRY NASAL ×2 (09:27→20:11)
[2024-11-08] MEDS: Ascorbic Acid 500 MG Tablet 1000 MG PO ×2 (09:28→17:21)
[2024-11-08] MEDS: Zinc Sulfate 50 mg zinc (220 mg) ORAL capsule PO (09:28)
[2024-11-08] MEDS: Cholecalciferol (Vit D3) 125 MCG CAPSULE (5,000 UNITS) PO (09:28)
[2024-11-08] MEDS: Pantoprazole Sodium 40 MG Tablet PO (09:28)
[2024-11-08] MEDS: amLODIPine 5 MG Tablet PO (09:28)
[2024-11-08] MEDS: Heparin Injection (Vial) 5,000 UNIT/ML VIAL 5000 UNIT SC ×2 (09:29→20:11)
[2024-11-08] MEDS: Clopidogrel Bisulfate 75 MG Tablet PO (09:29)
[2024-11-08] MEDS: guaiFENesin 1,200 MG Tablet 1200 MG PO ×2 (09:29→20:11)
[2024-11-08] MEDS: Metoprolol Tartrate 50 MG Tablet PO ×2 (09:29→20:11)
--- NOTE | 2024-11-08 09:49 | NURSING ---
Pt was noted to be desaturating. Pt tells this RN he had a coughing fit and was 82% on 4L. Pt's oxygen was increased to 6L to maintain adequate oxygenation and work with speech therapy. Linda
--- NOTE | 2024-11-08 10:49 | PN_ITS ---
Subjective Subjective Patient seen and examined. He was lying comfortably in bed and had no active complaints. Review of systems otherwise negative. He is awaiting speech therapy evaluation today. Objective Data Objective Data Vital Signs: Vital Signs Temp Pulse Resp BP Pulse Ox O2 Del Method O2 Flow Rate 97.4 F L 94 18 169/86 H 92 Nasal Cannula 6 11/08/24 09:25 11/08/24 09:29 11/08/24 09:25 11/08/24 09:29 11/08/24 09:48 11/08/24 09:48 11/08/24 09:48 FiO2 37 11/04/24 22:00 Oxygen Flow Rate (L/min) 6 Oxygen Delivery Method Nasal Cannula Weight: 169 lb 1.513 oz Body Mass Index (BMI) 22.3 Intake & Output: Intake and Output for Last 24 Hours 11/06/24 11/07/24 11/08/24 23:59 23:59 23:59 Intake Total 390 / 390 270 / 270 100 / 100 Output Total 1100 / 1100 250 / 250 300 / 300 Balance -710 / -710 20 / 20 -200 / -200 Lab / Micro Data 11/08/24 04:01 11/08/24 04:01 Labs: Laboratory Results - last 24 hr 11/07/24 11:26: POC Glucose 215 H 11/07/24 17:38: POC Glucose 170 H 11/07/24 23:41: POC Glucose 202 H 11/08/24 04:01: WBC 6.2, RBC 2.83 L, Hgb 9.2 L, Hct 29.2 L, MCV 103.2 H, MCH 32.5 H, MCHC 31.5 L, RDW Std Deviation 53.1 H, RDW Coeff of Christine 13.9, Plt Count 195, MPV 9.5, Immature Gran % (Auto) 0.300, Neut % (Auto) 79.2 H, Lymph % (Auto) 14.7 L, [place] % (Auto) 5.6, Eos % (Auto) 0.0, Baso % (Auto) 0.2, Absolute Neuts (auto) 4.9, Absolute Lymphs (auto) 0.92, Nucleated RBC % 0, Sodium 141, Potassium 4.8, Chloride 101, Carbon Dioxide 30.1, Anion Gap 10, BUN 38 H, C reatinine 1.51 H, Estim Creat Clear Calc 47.27 L, Est GFR (MDRD) Non-Af 48 L, B UN/Creatinine Ratio 25.1 H, Glucose 207 H, Calcium 8.7 11/08/24 06:02: POC Glucose 179 H Micro: Microbiology 11/04/24 16:00 Mucosa - Nasopharyngeal Respiratory Panel (PCR) - Final 11/04/24 19:08 Urine, Clean Catch Legionella Antigen - Final 11/04/24 19:08 Urine, Clean Catch Streptococcus pneumoniae Antigen (M - Final 11/03/24 18:55 Mucosa - Nose SARS-CoV-2, Influenza & RSV (PCR) - Final Physical Exam Const alert, oriented x3, no apparent distress and well nourished General Appearance: cooperative HEENT normocephalic, head/scalp atraumatic and oropharynx normal Eyes PERRL and EOMs intact bilaterally Neck no lymphadenopathy, supple and no JVD Lymph Lymphatic: no lymphadenopathy noted and no lymphedema noted Resp Resp Narrative: mildly diminished breath sounds bibasally, no wheezes or crackles. On 6L of oxygen by nasal canula Cardio regular rate, regular rhythm, S1 normal heart sound, S2 normal heart sound and no murmurs GI normal to inspection, nondistended, normoactive bowel sounds, soft to palpation, non-tender and non-distended Extremity normal capillary refill, no clubbing, cyanosis or edema and no calf tenderness General Extremity: no tenderness to palpation of joints or extremities Skin General Skin Exam: no breakdown Neuro CN's II-XII intact bilaterally, no focal motor deficits and no sensory deficits noted Motor Exam: strength 5/5 throughout and general weakness Psych thought process normal and cooperative Appearance: appropriate Assessment & Plan Assessment/Plan (1) Aspiration pneumonia: QUALIFIERS: Aspiration pneumonia type: unspecified Laterality: b ilateral Lung location: unspecified part of lung Qualified Code(s): J69.0 - Pneumonitis due to inhalation of food and vomit (2) COPD exacerbation: PLAN: Plan #Acute on chronic hypoxic respiratory failure due to COPD and aspiration pneumonia * currently on 6L of oxygen * CXR showed evidence of pneumonia * on IV soumedrol * on IV zosyn. Breathing treatment with bronchodilators * he had modified barium swallow and coughed during the process * speech therapy on board. TO have further speech evaluation again today. * titrate oxygen to maintain sats >90%. * Breathing treatment with bronchodilators. Titrate oxygen to maintain sats >90% * Respiratory panel was negative. Urine for strep and Legionella were also negative. * #Cardiomyopathy * has EF of 45% with mild to moderate global hypokinesis of the left ventricle and stage I diastolic dysfunction and pulmonary artery systolic pressure of 65mmHg * was on IV lasix. * still on 6L of oxygen. Desaturates with ambulation. * echo from 2022 showed EF of 55-60% and stage I diastolic dysfunction and normal LV systolic function. * in light of him still requiring 6L of oxygen, I do think it is reasonable to get cardiology input with regards to the drop in EF and moderate global hypokinesis * # Troponins were mildly elevated on admission at 131 and peaked at 159 but trended downwards to 133. * #CAD s/p CABG and stents * on plavix and statin as well as beta kaushik * #Hypertension: on metoprolol and amlodipine #GERD: on PPI DVT prophylaxis: heparin * # # Charges/Coding Visit Charges Inpatient E&M: 63309 Subs Hosp L2
[2024-11-08] MEDS: Insulin Lispro 100 UNIT/ML INSULN.PEN SC ×3 (11:36→22:37)
[2024-11-08 12:01] LABS: Bedside Glucose 264 mg/dL (74-106)
--- NOTE | 2024-11-08 12:11 | CASEMGMT ---
Discharge Planning A list of?HH providers including quality and resource use data and consistent with the patient's preferred geographic region, medical needs, and insurance network was created in [facility].? This list was provided to the RN KIMI. Anabelle Capps, Discharge Planning Asst.
--- NOTE | 2024-11-08 12:27 | CON.PCM.CA_ITS ---
Assessment & Plan Assessment/Plan (1) Elevated troponin: PLAN: Patient's troponins were elevated but remained steady at 131, 139, and then 133. He denies any chest pain but he does not remember what his previous anginal symptoms were like prior to his bypass graft surgery and prior to that his stents. He does remember exactly what he was doing when he had the 2 events but he does not remember the symptoms. I do feel that it is highly likely his hypoxia and his bilateral pneumonias were the reason for the elevation in the troponins in the face of someone with known coronary artery disease. However, he does have new global LV systolic dysfunction which may be related to ischemia or alternatively it may be related to his hypoxia and current pulmonary status. (2) Essential hypertension: PLAN: Patient's blood pressure is moderately elevated in the 165?170 systolic range. I would recommend that we add losartan to his medical regimen for both LV function as well as antihypertensive effect. If his blood pressure continues to be elevated consideration should be given to adding spironolactone 25 mg daily to his medical regiment and monitor his potassium closely. (3) Aspiration pneumonia: QUALIFIERS: Aspiration pneumonia type: unspecified Laterality: b ilateral Lung location: unspecified part of lung Qualified Code(s): J69.0 - Pneumonitis due to inhalation of food and vomit PLAN: Treatment per the primary service. The patient does have relatively new elevation in his pulmonary artery pressures most likely secondary to this pneumonic process. His echocardiogram should be repeated after he completely recovers from his pneumonia and is back to baseline home oxygen supplementation. (4) History of TIA (transient ischemic attack): PLAN: Patient has been monitored to the [facility] by his report. He does have some memory deficits by his report. I did find an old report from 2016 where he had a greater than 70% left internal carotid artery stenosis. He does tell me he has had multiple TIAs/CVAs and has memory deficits as noted. I do not know and he does not know if this left carotid was ever intervened upon. (5) Coronary artery disease: QUALIFIERS: Coronary Disease-Associated Artery/Lesion type: bypass graft [place] vs. transplanted heart: [place] heart Associated angina: without angina Qualified Code(s): I25.810 - Atherosclerosis of coronary artery bypass graft(s) without angina pectoris PLAN: Patient status post coronary bypass graft surgery in 1999 at [facility] receiving a three-vessel bypass we do not know the targets. His long-term evaluation and follow-up is been through the [facility] by his report. I do not find any record of him being seen in the [facility] as an ambulatory patient. (6) LV dysfunction: PLAN: Patient's LV is globally depressed mildly with an EF of 45%. In 2022 his EF was 55 to 60% on echocardiogram. He does have some mild to moderate mitral and tricuspid regurgitation but this is unchanged over the last 2 years. PLAN: Plan 1. Recommend add losartan 50 mg every afternoon to his medical regimen. 2. Will continue with supportive therapy for his pulmonary status. 3. Once his pulmonary status is felt to be back to baseline would recommend repeating a limited echo to look at his pulmonary artery pressures and LV function in 6 weeks. 4. Will need to follow-up with his [facility] cardiology/cardiovascular services for his coronary artery disease as well as his carotid disease. HPI Consult Data Date of Consult: 11/08/24 HPI Narrative HPI Narrative: KAM BROWN, is a 74 M who presents with what appears to be aspiration pneumonia. Patient carries a history of multiple TIAs/CVAs as well as coronary artery disease. His primary cardiovascular care has been through the [facility]. Patient had an echocardiogram back in 2016 which showed a right ventricular systolic pressure of 23 mmHg on the echo done today is up to 65. The patient has had multiple admissions for pneumonias in the interim. The patient is on home oxygen therapy. Since his admission he has been able to wean down somewhat on his oxygen he is now on 6 L but he still gets short of breath with activity. He gets short of breath with activity his home environment as well. His echocardiogram done on this admission showed normal LV size with an EF of 45% his previous echo the most recent one prior to this was in 2022 his EF was 55 to 60%. His right ventricle is normal the left atrium is mildly enlarged right atrium is normal. He has 2+ mitral regurgitation and 2+ tricuspid regurgitation which is really unchanged from 202. Currently the patient is resting in her composition in bed. He denies any chest pains but he does report he has significant memory deficits he does not remember much but he does remember that Dr. Mcculloughs Pavan and Dr. Elroy Batista took care of him at [facility] in 1999 when he had bypass surgery. He received a three-vessel bypass at that time. He does not know the targets. The patient is on metoprolol in his home environment. He is not on an ARB he has some type of reaction to lisinopril remotely. The patient has cut down his smoking to 3 to 4 cigarettes a day. Reports he has no desire to smoke unless he is around others that are smoking. [facility] Medical History COPD exacerbation Essential tremor Stage 3a chronic kidney disease (CKD) Diabetes mellitus, type 2 CAD (coronary artery disease) History of CVA (cerebrovascular accident) Tobacco use Hyperlipidemia COPD (chronic obstructive pulmonary disease) Hypertension Home Medications ?Medication ?Instructions ?Recorded ?Last Taken ?Type clopidogrel 75 mg tablet 75 mg PO DAILY Check with pr imary 03/24/16 Unknown History doctor metoprolol tartrate 50 mg tablet 50 mg PO BID Check wi th primary 03/24/16 12/10/22 History doctor amlodipine 5 mg tablet 5 mg PO DAILY Check with daniella nona 12/11/22 12/10/22 History doctor sertraline 100 mg tablet 100 mg PO DAILY Check with p dasha 12/11/22 12/10/22 History doctor albuterol sulfate 2.5 mg/3 mL 2.5 mg (3 mL) inhalation Q2H PRN 12/17/22 12/10/22 Rx (0.083 %) solution for nebulization PRN shortness of b reath or wheezing #1 mL ipratropium 0.5 mg-albuterol 3 mg 3 ml inhalation 4X/D AY #120 mL 12/17/22 Unknown Rx (2.5 mg base)/3 mL nebulization soln albuterol sulfate 90 mcg/actuation 2 puff inhalation Q 4H PRN PRN 11/03/24 Unknown History aerosol inhaler wheezing atorvastatin 40 mg tablet 40 mg PO QHS 11/03/24 Unknow n History fluticasone fur. 100 mcg-umeclid 1 ea inhalation DAILY 11/03/24 Unknown History 62.5 mcg-vilant 25 mcg inhalat.powder (Trelegy Ellipta) fluticasone propionate 50 1 spray intranasal BID 11/03 Unknown History mcg/actuation nasal spray,suspension metformin 500 mg tablet 500 mg PO BID 11/03/24 Unkno wn History Allergy/AdvReac Type Severity Reaction Status Date / Time acetaminophen (From Tylenol) Allergy Unknown Verified 11/03/24 17:30 morphine Allergy Other Verified 11/03/24 17:30 oyster extract Allergy Unknown Verified 11/03/24 17:30 lisinopril AdvReac Other Verified 11/03/24 17:30 Family History Mother Cancer Brain cancer, unclear type. Son Cancer Youngest son, metastatic testicular cancer. Father Heart disease Hypertension CVA (cerebral vascular accident) Surgical History S/P appendectomy H/O right inguinal hernia repair S/P bilateral foot surgery S/P triple vessel bypass H/O heart artery stent Social History household members: spouse current occupational status: retired Smoking Status: Current every day smoker tobacco type: cigarettes how long ago did patient quit smoking: Smoked since 10/27/1967, up to 1 ppd, recent down to 1 pk/4-5 days. alcohol intake: current alcohol intake frequency: holidays/special occasions only substance use type: does not use ROS Constitutional Constitutional: Reports systems reviewed and no addt'l complaints, except as documented Eyes Eyes: Reports systems reviewed and no addt'l complaints, except as documented ENT HEENT: Reports systems reviewed and no addt'l complaints, except as documented Cardiovascular Cardiovascular: Reports as per HPI Respiratory/Chest Respiratory/Chest: Reports as per HPI Gastrointestinal Gastrointestinal: Reports systems reviewed and no addt'l complaints, except as documented Genitourinary Genitourinary: Reports systems reviewed and no addt'l complaints, except as documented Musculoskeletal Musculoskeletal: Reports systems reviewed and no addt'l complaints, except as documented Integumentary Integumentary: Reports systems reviewed and no addt'l complaints, except as documented Neurologic Neurologic: Reports as per HPI Psychiatric Psychiatric: Reports as per HPI Endocrine Endocrinology: Reports systems reviewed and no addt'l complaints, except as documented Hematologic/Lymphatic Hematologic/Lymphatic: Reports systems reviewed and no addt'l complaints, except as documented Allergic/Immunologic Allergic/Immunologic: Reports systems reviewed and no addt'l complaints, except as documented Physical Exam Const alert and oriented x3 HEENT normocephalic Eyes EOMs intact bilaterally Neck no JVD and no carotid bruits Chest Chest: midline sternotomy incision Cardio regular rate, regular rhythm, S1 normal heart sound, S2 normal heart sound, no rub and no gallops Heart Sounds: murmur systolic II/ blowing holo apex Extremity no pedal edema Psych mental status grossly normal Risk Stratification Risk Stratification Applicable: Yes Age >/= 65: Yes >/= 3 CAD Risk Factors (HTN, HLD, DM, family hx of CAD, or current smoker): Yes Aspirin Use in the Past 7 Days: No Severe Angina (>/= episodes in 24 hours): No EKG ST Changes >/= 0.5mm: No Positive Cardiac Marker: Yes AMBER Risk Stratification Score: 3 AMBER % Risk: 13% Risk Charges/Coding Visit Charges Inpatient E&M: 73971 Init Hosp L3 Objective Data Vital Signs: Vital Signs Temp Pulse Resp BP Pulse Ox O2 Del Method O2 Flow Rate 97.4 F L 83 20 H 169/86 H 94 Nasal Cannula 6 11/08/24 09:25 11/08/24 10:55 11/08/24 10:55 11/08/24 09:29 11/08/24 10:40 11/08/24 09:48 11/08/24 10:40 FiO2 37 11/04/24 22:00 Oxygen Flow Rate (L/min) 6 Oxygen Delivery Method Nasal Cannula Weight: 169 lb 1.513 oz Body Mass Index (BMI) 22.3 Intake & Output: Intake and Output for Last 24 Hours 11/06/24 11/07/24 11/08/24 23:59 23:59 23:59 Intake Total 390 / 390 270 / 270 340 / 340 Output Total 1100 / 1100 250 / 250 500 / 500 Balance -710 / -710 -160 / -160 Lab / Micro Data Attestation: I reviewed the patient's lab results. 11/08/24 04:01 11/08/24 04:01 Labs: Laboratory Results - last 24 hr 11/07/24 17:38: POC Glucose 170 H 11/07/24 23:41: POC Glucose 202 H 11/08/24 04:01: WBC 6.2, RBC 2.83 L, Hgb 9.2 L, Hct 29.2 L, MCV 103.2 H, MCH 32.5 H, MCHC 31.5 L, RDW Std Deviation 53.1 H, RDW Coeff of Christine 13.9, Plt Count 195, MPV 9.5, Immature Gran % (Auto) 0.300, Neut % (Auto) 79.2 H, Lymph % (Auto) 14.7 L, Amelia % (Auto) 5.6, Eos % (Auto) 0.0, Baso % (Auto) 0.2, Absolute Neuts (auto) 4.9, Absolute Lymphs (auto) 0.92, Nucleated RBC % 0, Sodium 141, Potassium 4.8, Chloride 101, Carbon Dioxide 30.1, Anion Gap 10, BUN 38 H, C reatinine 1.51 H, Estim Creat Clear Calc 47.27 L, Est GFR (MDRD) Non-Af 48 L, B UN/Creatinine Ratio 25.1 H, Glucose 207 H, Calcium 8.7 11/08/24 06:02: POC Glucose 179 H 11/08/24 11:35: POC Glucose 264 H Rhythm Strip Rhythm Strip: Sinus Rhythm Rate: 85 Cardiology Labs/Tests 11/08/24 04:01: WBC 6.2, RBC 2.83 L, Hgb 9.2 L, Hct 29.2 L, MCV 103.2 H, MCH 32.5 H, MCHC 31.5 L, Plt Count 195, MPV 9.5, Immature Gran % (Auto) 0.300, Neut % (Auto) 79.2 H, Lymph % (Auto) 14.7 L, Amelia % (Auto) 5.6, Eos % (Auto) 0.0, Baso % (Auto) 0.2, Absolute Neuts (auto) 4.9, Nucleated RBC % 0, Sodium 141, Potassium 4.8, Chloride 101, Carbon Dioxide 30.1, Anion Gap 10, BUN 38 H, C reatinine 1.51 H, Est GFR (MDRD) Non-Af 48 L, BUN/Creatinine Ratio 25.1 H, G lucose 207 H, Calcium 8.7 Rhythm: EKG: ECHO: Stress Test: Cardiac Cath: PCI: CT Surgery: Holter monitor: EPS: PPM: CXR: Chest CT Scan:
--- NOTE | 2024-11-08 12:58 | CASEMGMT ---
JOE BOLDEN in to discuss discharge planning with patient. JOE BOLDEN reviewed therapy notes, stand by 50ft. JOE BOLDEN discuss HHC with patient. Patient agreeable to HHC at discharge. JOE BOLDEN provided HHC list to patient. Patient states he will review list with his when she comes to visit later this afternoon. JOE BOLDEN will follow-up with patient in the morning for preferences.
[2024-11-08] MEDS: Losartan Potassium 50 MG Tablet PO (17:22)
[2024-11-08 18:04] LABS: Bedside Glucose 224 mg/dL (74-106)
[2024-11-08] MEDS: Atorvastatin Calcium 40 MG Tablet PO (20:11)
[2024-11-08 23:02] LABS: Bedside Glucose 326 mg/dL (74-106)
[2024-11-09] VITALS (18 sets, daily range): BP systolic 130–169; BP diastolic 63–85; PULSE 75–101; RESP 15–32; TEMP 36.3–36.6; O2SAT 90–100; BMI 22.4
[2024-11-09] MEDS: Ipratropium/Albuterol Sulfate 3 ML AMPUL.NEB INHALATION ×6 (03:15→23:16)
[2024-11-09] MEDS: 0.9% Saline Lock 10 ML Syringe IV ×2 (05:39→13:41)
[2024-11-09] MEDS: Piperacil/Tazobactam 3.375 GM in 0.9% Normal Saline (50mL MB+) 50 ML IV ×3 (05:39→20:41)
[2024-11-09] MEDS: Methylprednisolone Sod Succ 40 MG/ML VIAL IV ×3 (05:39→20:51)
[2024-11-09] MEDS: Insulin Lispro 100 UNIT/ML INSULN.PEN SC ×4 (06:21→20:46)
[2024-11-09 06:48] LABS: Bedside Glucose 214 mg/dL (74-106)
[2024-11-09 07:36] LABS: Absolute Lymphocyte Count 1.37 X10^3/uL (0.83-4.51); Absolute Neutrophil Count 5.6 X10^3/uL (2.0-7.7); Eosinophil# 0.02 X10^3/uL; Eosinophils% 0.3 % (0-5); Hematocrit 28.7 % (40-54); Hemoglobin 9.2 g/dL (13.0-16.5); Lymphocyte # 1.37 X10^3/ul (0.83-4.51); Lymphocyte % 18.2 % (19-41); Mean Corp Hgb Conc 32.1 g/dL (32-36); Mean Corpuscular Hgb 32.7 pg (27.0-32.0); Mean Corpuscular Volume 102.1 fL (80-94); Mean Platelet Vol. 9.9 fl (6.2-12.0); Monocyte# 0.51 X10^3/uL; Monocyte% 6.8 % (0-10); NRBC Flagged by Analyzer 0 % (0-5); Neutrophil # 5.59 X10^3/uL (2.7-7.7); Platelet Count 206 K/mm3 (150-450); RBC Distribution Width CV 13.6 % (11.6-14.6); RBC Distribution Width SD 51.4 fl (35.1-43.9); Red Blood Count 2.81 M/mm3 (4.6-6.2); White Blood Count 7.5 K/mm3 (4.4-11.0)
[2024-11-09 08:33] LABS: Anion Gap 8 (5-15); BUN 32 mg/dL (4-19); BUN/Creat Ratio 21.8 RATIO (10-20); Calcium,Total 8.7 mg/dL (7.6-11.0); Carbon Dioxide 32.5 mmol/L (21.0-32.0); Chloride 102 mmol/L (98-108); Creatinine, Serum 1.45 mg/dL (0.70-1.20); EST Glomerular Filtration Rate 51 (>60); Estimated Creatinine Clearance 49.54 ml/min (50-250); Glucose 219 mg/dL (70-99); Potassium 4.2 mmol/L (3.3-5.1); Sodium Level 142 mmol/L (133-145)
--- NOTE | 2024-11-09 08:59 | PN.CARD_ITS ---
Subjective Subjective Patient denies any chest pain is resting comfortably with nasal cannula in the recumbent position in bed. Patient's blood pressure still slightly elevated at 169 but he is only had 1 dose of the losartan. Objective Data Vital Signs: Vital Signs Temp Pulse Resp BP Pulse Ox O2 Del Method O2 Flow Rate 97.4 F L 87 30 H 163/69 H 95 Nasal Cannula 4 11/09/24 07:20 11/09/24 07:20 11/09/24 08:14 11/09/24 07:20 11/09/24 08:14 11/09/24 08:14 11/09/24 08:14 FiO2 37 11/04/24 22:00 Oxygen Flow Rate (L/min) 4 Oxygen Delivery Method Nasal Cannula Weight: 170 lb 3.15 oz Body Mass Index (BMI) 22.4 Intake & Output: Intake and Output for Last 24 Hours 11/07/24 11/08/24 11/09/24 23:59 23:59 23:59 Intake Total 270 / 270 510 / 560 100 / 100 Output Total 250 / 250 700 / 950 450 / 450 Balance -190 / -390 -350 / -350 Lab / Micro Data Attestation: I reviewed the patient's lab results. 11/09/24 06:57 11/09/24 06:57 Labs: Laboratory Results - last 24 hr 11/08/24 11:35: POC Glucose 264 H 11/08/24 17:19: POC Glucose 224 H 11/08/24 22:35: POC Glucose 326 H 11/09/24 06:20: POC Glucose 214 H 11/09/24 06:57: WBC 7.5, RBC 2.81 L, Hgb 9.2 L, Hct 28.7 L, MCV 102.1 H, MCH 32.7 H, MCHC 32.1, RDW Std Deviation 51.4 H, RDW Coeff of Christine 13.6, Plt Count 206, MPV 9.9, Immature Gran % (Auto) 0.700, Neut % (Auto) 74.0 H, Lymph % (Auto) 18.2 L, [place] % (Auto) 6.8, Eos % (Auto) 0.3, Baso % (Auto) 0.0, Absolute Neuts (auto) 5.6, Absolute Lymphs (auto) 1.37, Nucleated RBC % 0, Sodium 142, Potassium 4.2, Chloride 102, Carbon Dioxide 32.5 H, Anion Gap 8, BUN 32 H, C reatinine 1.45 H, Estim Creat Clear Calc 49.54 L, Est GFR (MDRD) Non-Af 51 L, B UN/Creatinine Ratio 21.8 H, Glucose 219 H, Calcium 8.7 Rhythm Strip Rhythm Strip: Sinus Rhythm Rate: 80 Ectopy: PVC(s) Cardiology Labs/Tests 11/09/24 06:57: WBC 7.5, RBC 2.81 L, Hgb 9.2 L, Hct 28.7 L, MCV 102.1 H, MCH 32.7 H, MCHC 32.1, Plt Count 206, MPV 9.9, Immature Gran % (Auto) 0.700, Neut % (Auto) 74.0 H, Lymph % (Auto) 18.2 L, [place] % (Auto) 6.8, Eos % (Auto) 0.3, Baso % (Auto) 0.0, Absolute Neuts (auto) 5.6, Nucleated RBC % 0, Sodium 142, Potassium 4.2, Chloride 102, Carbon Dioxide 32.5 H, Anion Gap 8, BUN 32 H, C reatinine 1.45 H, Est GFR (MDRD) Non-Af 51 L, BUN/Creatinine Ratio 21.8 H, G lucose 219 H, Calcium 8.7 Rhythm: EKG: ECHO: Stress Test: Cardiac Cath: PCI: CT Surgery: Holter monitor: EPS: PPM: CXR: Chest CT Scan: Physical Exam Const alert and oriented x3 HEENT normocephalic Eyes EOMs intact bilaterally Neck no JVD Chest Chest: midline sternotomy incision Resp normal respiratory effort Resp Narrative: On nasal cannula oxygen. Cardio Rate: regular rate Rhythm: regular rhythm Heart Sounds: S1 normal, S2 normal and murmur systolic II/ blowing mid apex; Negative for click or gallop Extremity no pedal edema Neuro Neuro Narrative: Alert and oriented x 3 but does complain of memory deficits. Psych Psych Narrative: Mild memory deficits. Assessment & Plan Assessment/Plan (1) LV dysfunction: PLAN: Patient has mild global LV dysfunction EF of 45%. Historically back in 2022 it had been 55 to 60%. The patient did have a minor bump in his troponins when he was initially hospitalized but this was felt to be related to his aspiration pneumonia and hypoxia. Losartan has been added to his medical regimen. His creatinine is slightly elevated at 1.45. Therefore, I would not add spironolactone at this point in time. The patient is on metoprolol tartrate and he does not appear to be volume overloaded. I did discuss long-term treatment options with the patient including the possibility of invasive evaluation and/or treatments. The patient voiced to me that he was not interested in any aggressive therapy at this point in time. His comment was if my heart quits it quits. I would recommend that he follow-up with his primary care physicians to determine long-term management. His echocardiogram should be repeated as a limited echo in 6 weeks to reevaluate his LV function recovery as this may be stunning from his profound hypoxia on admission. If it continues to be impaired then his [facility] spring maker may wish to further evaluate this after discussion with the patient depending on his long-term expectations. (2) Essential hypertension: PLAN: Blood pressure still remains elevated but he is only had 1 dose of the losartan. I recommended he does not come under better control consideration be given to adding either hydrochlorothiazide if his creatinine stays elevated or spironolactone if his creatinine remains stable. This could be done in the ambulatory setting after he is followed up in his primary care physician's office. (3) Coronary artery disease: QUALIFIERS: Coronary Disease-Associated Artery/Lesion type: bypass graft [place] vs. transplanted heart: [place] heart Associated angina: without angina Qualified Code(s): I25.810 - Atherosclerosis of coronary artery bypass graft(s) without angina pectoris PLAN: Patient denies any angina at this point in time. He is status post three- vessel bypass in 1999. He has been monitored long-term through the [facility]. Dr. Zak Batista he had been his original spring maker back in 1999. (4) Aspiration pneumonia: QUALIFIERS: Aspiration pneumonia type: unspecified Laterality: b ilateral Lung location: unspecified part of lung Qualified Code(s): J69.0 - Pneumonitis due to inhalation of food and vomit PLAN: Further treatment and evaluation per the primary service. PLAN: Plan 1. Continue current medical therapy as noted above. 2. From a cardiovascular standpoint given the patient's expectations as noted above no further evaluation is indicated at this point in time in my opinion. 3. The patient should follow-up with his [facility] physicians and have a limited echocardiogram repeated at 6 weeks to then determine if further evaluation may be indicated. 4. We will sign off if further assistance is needed please recall us. Charges/Coding Visit Charges Inpatient E&M: 23218 Subs Hosp L2
[2024-11-09] MEDS: Fluticasone 0.05% 1 SPRAY NASAL.SRY NASAL ×2 (10:21→20:43)
[2024-11-09] MEDS: Losartan Potassium 50 MG Tablet PO (10:22)
[2024-11-09] MEDS: amLODIPine 5 MG Tablet PO (10:22)
[2024-11-09] MEDS: Metoprolol Tartrate 50 MG Tablet PO ×2 (10:22→20:50)
[2024-11-09] MEDS: Zinc Sulfate 50 mg zinc (220 mg) ORAL capsule PO (10:22)
[2024-11-09] MEDS: Ascorbic Acid 500 MG Tablet 1000 MG PO ×2 (10:22→16:35)
[2024-11-09] MEDS: guaiFENesin 1,200 MG Tablet 1200 MG PO ×2 (10:22→20:50)
[2024-11-09] MEDS: Heparin Injection (Vial) 5,000 UNIT/ML VIAL 5000 UNIT SC ×2 (10:22→20:44)
[2024-11-09] MEDS: Clopidogrel Bisulfate 75 MG Tablet PO (10:23)
[2024-11-09] MEDS: Cholecalciferol (Vit D3) 125 MCG CAPSULE (5,000 UNITS) PO (10:23)
[2024-11-09] MEDS: Pantoprazole Sodium 40 MG Tablet PO (10:23)
[2024-11-09 12:16] LABS: Bedside Glucose 312 mg/dL (74-106)
--- NOTE | 2024-11-09 13:14 | PN_ITS ---
Subjective Subjective Patient seen and examined. He has no active complaints. Review of systems is otherwise negative. He continues to desaturate with the slightest exertion. He is still coughing, though he is not expectorating much. Objective Data Objective Data Vital Signs: Vital Signs Temp Pulse Resp BP Pulse Ox O2 Del Method O2 Flow Rate 97.5 F L 75 22 H 157/85 H 100 Nasal Cannula 4 11/09/24 11:40 11/09/24 12:05 11/09/24 12:05 11/09/24 11:40 11/09/24 12:05 11/09/24 12:05 11/09/24 12:05 FiO2 37 11/04/24 22:00 Oxygen Flow Rate (L/min) 4 Oxygen Delivery Method Nasal Cannula Weight: 170 lb 3.15 oz Body Mass Index (BMI) 22.4 Intake & Output: Intake and Output for Last 24 Hours 11/07/24 11/08/24 11/09/24 23:59 23:59 23:59 Intake Total 270 / 270 510 / 560 390 / 390 Output Total 250 / 250 700 / 950 450 / 450 Balance 20 / 20 -190 / -390 -60 / -60 Medical Nutrition Assessment Dietitian: Malnutrition Criteria Met Start: 11/08/24 15:10 Freq: Status: Active Protocol: Document 11/08/24 15:10 RMA (Rec: 11/08/24 15:10 RMA [id number]) Nutrition Malnutrition Evidence of Yes Malnutrition Exists Malnutrition (severe Acute Illness/Injury ): Evidenced By Suboptimal Energy Intake (Severe),Weight Loss (Severe) Intake Problem Inadequate Oral Intake Etiology related to swallowing difficulty Signs/Symptoms as evidenced by NPO x 3 days Status Resolved Problem Clinical Problem Acute Disease or Injury Related Malnutrition Etiology severe protein-calorie malnutrition in the context of acute illness related to inadequate oral intake and difficulty chewing/swallowing Signs/Symptoms as evidenced by PO meeting less than 50% estimated nutrition needs x 1 week, extended NPO x 3-4 days and weight loss ~5-6% in less than 1 week Status Active Problem Recommendation Dietitian Will adjust diet to carbohydrate-controlled (no caloric Recommendations/ restriction). Changes Consistency/texture as per MARINE TOWER OPERATOR. Will add 120mL PO glucerna shake w/ meals 3 times per day. Limit sodium and fluids as indicated once PO established with meals. Additional ONS and/or TF support to supplement PO as indicated if PO established suboptimal at meals and/or weight continues to decline. Lab / Micro Data 11/09/24 06:57 11/09/24 06:57 Labs: Laboratory Results - last 24 hr 11/08/24 17:19: POC Glucose 224 H 11/08/24 22:35: POC Glucose 326 H 11/09/24 06:20: POC Glucose 214 H 11/09/24 06:57: WBC 7.5, RBC 2.81 L, Hgb 9.2 L, Hct 28.7 L, MCV 102.1 H, MCH 32.7 H, MCHC 32.1, RDW Std Deviation 51.4 H, RDW Coeff of Christine 13.6, Plt Count 206, MPV 9.9, Immature Gran % (Auto) 0.700, Neut % (Auto) 74.0 H, Lymph % (Auto) 18.2 L, [place] % (Auto) 6.8, Eos % (Auto) 0.3, Baso % (Auto) 0.0, Absolute Neuts (auto) 5.6, Absolute Lymphs (auto) 1.37, Nucleated RBC % 0, Sodium 142, Potassium 4.2, Chloride 102, Carbon Dioxide 32.5 H, Anion Gap 8, BUN 32 H, C reatinine 1.45 H, Estim Creat Clear Calc 49.54 L, Est GFR (MDRD) Non-Af 51 L, B UN/Creatinine Ratio 21.8 H, Glucose 219 H, Calcium 8.7 11/09/24 11:34: POC Glucose 312 H Micro: Microbiology 11/04/24 16:00 Mucosa - Nasopharyngeal Respiratory Panel (PCR) - Final 11/04/24 19:08 Urine, Clean Catch Legionella Antigen - Final 11/04/24 19:08 Urine, Clean Catch Streptococcus pneumoniae Antigen (M - Final 11/03/24 18:55 Mucosa - Nose SARS-CoV-2, Influenza & RSV (PCR) - Final Rhythm Strip Rhythm Strip: Sinus Rhythm Rate: 80 Ectopy: PVC(s) Physical Exam Const alert, oriented x3, no apparent distress and well nourished Constitutional Narrative: frail, weak General Appearance: cooperative HEENT normocephalic, head/scalp atraumatic, hearing grossly normal bilaterally, moist oral mucous membranes and oropharynx normal Eyes PERRL and EOMs intact bilaterally Neck no lymphadenopathy, supple and no JVD Lymph Lymphatic: no lymphadenopathy noted and no lymphedema noted Resp Resp Narrative: mildly diminished breath sounds bibasally, no wheezes or crackles. On 4 L of oxygen by nasal canula Cardio regular rate, regular rhythm, S1 normal heart sound, S2 normal heart sound and no murmurs GI normal to inspection, nondistended, normoactive bowel sounds, soft to palpation, non-tender and non-distended Extremity normal to inspection, full ROM, normal capillary refill and no clubbing, cyanosis or edema General Extremity: no tenderness to palpation of joints or extremities Neuro CN's II-XII intact bilaterally, moves all extremities, no focal motor deficits and no sensory deficits noted Sensorium / Orientation: awake, alert, oriented to person, oriented to place and oriented to time Speech: speech normal Motor Exam: strength 5/5 throughout and general weakness Psych thought process normal, cooperative and affect normal Appearance: appropriate Assessment & Plan Assessment/Plan (1) Aspiration pneumonia: QUALIFIERS: Aspiration pneumonia type: unspecified Laterality: b ilateral Lung location: unspecified part of lung Qualified Code(s): J69.0 - Pneumonitis due to inhalation of food and vomit (2) COPD exacerbation: PLAN: Plan #Acute on chronic hypoxic respiratory failure due to COPD and aspiration pneumonia * currently on 4L of oxygen. However he continues to desaturate very easily with exertion. * CXR showed evidence of pneumonia * on IV solumedrol * on IV zosyn. Breathing treatment with bronchodilators * he had modified barium swallow and coughed during the process * speech therapy on board. TO have further speech evaluation again today. * titrate oxygen to maintain sats >90%. * Breathing treatment with bronchodilators. Titrate oxygen to maintain sats >90% * Respiratory panel was negative. Urine for strep and Legionella were also negative. * Consult pulmonology due to persistent hypoxia especially with exertion. * #Cardiomyopathy * has EF of 45% with mild to moderate global hypokinesis of the left ventricle and stage I diastolic dysfunction and pulmonary artery systolic pressure of 65mmHg * was on IV lasix. * On 4 L of oxygen today. * echo from 2022 showed EF of 55-60% and stage I diastolic dysfunction and normal LV systolic function. * in light of him still requiring 6L of oxygen, I do think it is reasonable to get cardiology input with regards to the drop in EF and moderate global hypokinesis * Cardiology did review him based on the echo findings recommended adding on losartan 50 mg every afternoon to his medication regimen. Per cardiology once his pulmonary status is back to baseline to have a limited echo in 6 weeks time to evaluate his pulmonary artery pressures and ventricular function. * Troponins were mildly elevated on admission at 131 and peaked at 159 but trended downwards to 133. * #CAD s/p CABG and stents * on plavix and statin as well as beta kaushik. Losartan added on. * #Hypertension: on metoprolol and amlodipine #GERD: on PPI DVT prophylaxis: heparin * Charges/Coding Visit Charges Inpatient E&M: 09040 Subs Hosp L2
--- NOTE | 2024-11-09 13:37 | CON.PCM.CC_ITS ---
Assessment & Plan Assessment/Plan (1) COPD exacerbation: (2) Aspiration pneumonia: QUALIFIERS: Aspiration pneumonia type: unspecified Laterality: b ilateral Lung location: unspecified part of lung Qualified Code(s): J69.0 - Pneumonitis due to inhalation of food and vomit PLAN: Plan RECOMMENDATIONS: 1. Supplemental oxygen to maintain saturations at or above 90%. 2. Continue antibiotics to complete 7 days of therapy. 3. Continue scheduled bronchodilators and steroids. 4. Obtain CTA chest. 5. Maintain aspiration precautions. IMPRESSIONS: 1. Acute on chronic hypoxemic respiratory failure Presumed secondary to COPD exacerbation due to aspiration pneumonia. The patient has known end-stage lung disease along with a baseline oxygen requirement of 4 L/min. Unfortunately, the patient continues to desaturate with any form of physical exertion. He has been maintained on appropriate antimicrobials along with scheduled bronchodilators and steroids. Accordingly, will obtain CTA chest to rule out pulmonary embolism and evaluate for any underlying interstitial lung process. In the interim, I would consider an attempt at gentle diuresis as tolerated by hemodynamics and renal function. 2. Cardiomyopathy/history of coronary artery disease status post CABG/hypertension Continue current medical management per cardiology recommendations. 3. Chronic tobacco dependency/GERD/hyperlipidemia/diabetes mellitus Complicates care, management, recovery and prognosis. Smoking cessation is strongly advised. This note was generated with Need [employer] dictation software. It may contain incorrect words, spelling, and punctuation that were not noted in checking the note before signing. HPI Consult Data Date of Consult: 11/09/24 HPI Narrative Reason for Consultation: Hypoxemia HPI Narrative: The patient is a 74-year-old male, with a history as outlined below, who initially presented to the emergency department on November 03 with shortness of breath. The patient has a known history of coronary artery disease status post CABG, chronic heart failure with preserved ejection fraction, history of CVA, chronic kidney disease and chronic tobacco dependency. The patient reported that he is currently followed by Dr. Court Burdick of pulmonary medicine at [facility]. According to the patient, he has Gold stage IV COPD with an FEV1 of approximately 25%. In addition, he has a baseline supplemental oxygen requirement of 4 L/min. The patient was subsequently admitted to the hospital with concern that his acute hypoxemic on chronic respiratory failure was related to a COPD exacerbation secondary to aspiration pneumonia. The patient has been followed by speech therapy over concerns for aspiration noted on his MBSS. In addition, repeat echocardiogram demonstrated an ejection fraction of 45% with moderate global hypokinesis of the LV, stage I diastolic dysfunction and a pulmonary artery systolic pressure of 65 mmHg. The patient was seen in consultation by cardiology. The patient remains on antimicrobials along with scheduled bronchodilators and IV steroids. According to nursing staff, he readily desaturates with any form of physical exertion. [facility] Medical History COPD exacerbation Essential tremor Stage 3a chronic kidney disease (CKD) Diabetes mellitus, type 2 CAD (coronary artery disease) History of CVA (cerebrovascular accident) Tobacco use Hyperlipidemia COPD (chronic obstructive pulmonary disease) Hypertension Home Medications ?Medication ?Instructions ?Recorded ?Last Taken ?Type clopidogrel 75 mg tablet 75 mg PO DAILY Check with pr imary 03/24/16 Unknown History doctor metoprolol tartrate 50 mg tablet 50 mg PO BID Check wi primary 03/24/16 12/10/22 History doctor amlodipine 5 mg tablet 5 mg PO DAILY Check with daniella nona 12/11/22 12/10/22 History doctor sertraline 100 mg tablet 100 mg PO DAILY Check with p dasha 12/11/22 12/10/22 History doctor albuterol sulfate 2.5 mg/3 mL 2.5 mg (3 mL) inhalation Q2H PRN 12/17/22 12/10/22 Rx (0.083 %) solution for nebulization PRN shortness of b reath or wheezing #1 mL ipratropium 0.5 mg-albuterol 3 mg 3 ml inhalation 4X/D AY #120 mL 12/17/22 Unknown Rx (2.5 mg base)/3 mL nebulization soln albuterol sulfate 90 mcg/actuation 2 puff inhalation Q 4H PRN PRN 11/03/24 Unknown History aerosol inhaler wheezing atorvastatin 40 mg tablet 40 mg PO QHS 11/03/24 Unknow n History fluticasone fur. 100 mcg-umeclid 1 ea inhalation DAILY 11/03/24 Unknown History 62.5 mcg-vilant 25 mcg inhalat.powder (Trelegy Ellipta) fluticasone propionate 50 1 spray intranasal BID 11/03 Unknown History mcg/actuation nasal spray,suspension metformin 500 mg tablet 500 mg PO BID 11/03/24 Unkno wn History Allergy/AdvReac Type Severity Reaction Status Date / Time acetaminophen (From Tylenol) Allergy Unknown Verified 11/03/24 17:30 morphine Allergy Other Verified 11/03/24 17:30 oyster extract Allergy Unknown Verified 11/03/24 17:30 lisinopril AdvReac Other Verified 11/03/24 17:30 Family History Mother Cancer Brain cancer, unclear type. Son Cancer Youngest son, metastatic testicular cancer. Father Heart disease Hypertension CVA (cerebral vascular accident) Surgical History S/P appendectomy H/O right inguinal hernia repair S/P bilateral foot surgery S/P triple vessel bypass H/O heart artery stent Social History household members: spouse current occupational status: retired Smoking Status: Current every day smoker tobacco type: cigarettes how long ago did patient quit smoking: Smoked since 10/27/1967, up to 1 ppd, recent down to 1 pk/4-5 days. alcohol intake: current alcohol intake frequency: holidays/special occasions only substance use type: does not use ROS ROS Narrative 10 systems were reviewed with pertinent positives as noted in the HPI above. Physical Exam Const alert and no apparent distress General Appearance: cooperative HEENT normocephalic, head/scalp atraumatic and moist oral mucous membranes Eyes PERRL, EOMs intact bilaterally and conjunctivae normal Neck supple General: trachea midline Chest inspection of chest normal Resp normal respiratory effort and no use of accessory muscles Effort and Inspection: able to speak in complete sentences Auscultation: diminished lung sounds Cardio regular rate and regular rhythm GI normal to inspection, nondistended, normoactive bowel sounds Extremity no clubbing, cyanosis or edema Skin no rashes or lesions noted Neuro CN's II-XII intact bilaterally, moves all extremities and no focal motor deficits Psych cooperative and affect normal Medical Records Data Medical Nutrition Assessment Dietitian: Malnutrition Criteria Met Start: 11/08/24 15:10 Freq: Status: Active Protocol: Document 11/08/24 15:10 RMA (Rec: 11/08/24 15:10 RMA [id number]) Nutrition Malnutrition Evidence of Yes Malnutrition Exists Malnutrition (severe Acute Illness/Injury ): Evidenced By Suboptimal Energy Intake (Severe),Weight Loss (Severe) Intake Problem Inadequate Oral Intake Etiology related to swallowing difficulty Signs/Symptoms as evidenced by NPO x 3 days Status Resolved Problem Clinical Problem Acute Disease or Injury Related Malnutrition Etiology severe protein-calorie malnutrition in the context of acute illness related to inadequate oral intake and difficulty chewing/swallowing Signs/Symptoms as evidenced by PO meeting less than 50% estimated nutrition needs x 1 week, extended NPO x 3-4 days and weight loss ~5-6% in less than 1 week Status Active Problem Recommendation Dietitian Will adjust diet to carbohydrate-controlled (no caloric Recommendations/ restriction). Changes Consistency/texture as per JAVA LEAD DEVELOPER. Will add 120mL PO glucerna shake w/ meals 3 times per day. Limit sodium and fluids as indicated once PO established with meals. Additional ONS and/or TF support to supplement PO as indicated if PO established suboptimal at meals and/or weight continues to decline. Lab / Micro Data 11/09/24 06:57 11/09/24 06:57 Labs: Laboratory Results - last 24 hr 11/08/24 17:19: POC Glucose 224 H 11/08/24 22:35: POC Glucose 326 H 11/09/24 06:20: POC Glucose 214 H 11/09/24 06:57: WBC 7.5, RBC 2.81 L, Hgb 9.2 L, Hct 28.7 L, MCV 102.1 H, MCH 32.7 H, MCHC 32.1, RDW Std Deviation 51.4 H, RDW Coeff of Christine 13.6, Plt Count 206, MPV 9.9, Immature Gran % (Auto) 0.700, Neut % (Auto) 74.0 H, Lymph % (Auto) 18.2 L, [place] % (Auto) 6.8, Eos % (Auto) 0.3, Baso % (Auto) 0.0, Absolute Neuts (auto) 5.6, Absolute Lymphs (auto) 1.37, Nucleated RBC % 0, Sodium 142, Potassium 4.2, Chloride 102, Carbon Dioxide 32.5 H, Anion Gap 8, BUN 32 H, C reatinine 1.45 H, Estim Creat Clear Calc 49.54 L, Est GFR (MDRD) Non-Af 51 L, B UN/Creatinine Ratio 21.8 H, Glucose 219 H, Calcium 8.7 11/09/24 11:34: POC Glucose 312 H Rhythm Strip Rhythm Strip: Sinus Rhythm Rate: 80 Ectopy: PVC(s) Charges/Coding Visit Charges Inpatient E&M: 89924 Init Hosp L3
--- NOTE | 2024-11-09 13:41 | CT_ITS ---
PROCEDURE: CTA CHEST W/WO CONTRAST 11/09/2024 REASON FOR EXAM: REFRACTORY HYPOXEMIA TECHNIQUE: CTA axial imaging of the chest with intravenous contrast. Coronal and Sagittal reconstruction series were provided. 3D, 3D post processing, 3D reconstructions, Maximum intensity projection (MIPs) Volume rendering and Shaded surface rendering was provided. PATIENT PREPARATION: Per protocol One or more dose reduction techniques were used (e.g., Automated exposure control, adjustment of the mA and/or kV according to patient size, use of iterative reconstruction technique). CONTRAST: Isovue 370 VOLUME: 100 mL RADIATION DOSE SUMMARY: CTDlvol: 26.5 mGy DLP: 476.98 mGycm COMPARISON: Comparison is made with prior chest radiograph dated November 03/2025. FINDINGS: Hardware: Sternotomy wires and mediastinal clips. Lymph nodes: No significant lymph nodes are seen. Heart: The heart is not enlarged. Coronary artery calcification. Thoracic Aorta: No thoracic aortic aneurysm or dissection. Mild atherosclerotic plaque formation. Pulmonary Vessels: No large central pulmonary emboli are identified. Lungs and Airways: Mild emphysematous changes are present. Findings suggestive of scarring at the lung bases in the peripheral lateral aspect of the right middle lobe. Scarring in the right upper lobe. Pleura: Small left pleural effusion. Calcified pleural plaques at the left lung base. Upper Abdomen: Visualized portions of the upper abdominal viscera are unremarkable. Bones: Degenerative changes of the thoracic spine. CT/CTA Chest W/WO Contrast IMPRESSION: No evidence of pulmonary embolism. Small left pleural effusion with calcified left pleural plaques. Findings sugg estive of scarring at the lung bases more prominent on the left side. Scarring in the right middle lobe. [facility]
[2024-11-09 16:53] LABS: Bedside Glucose 290 mg/dL (74-106)
[2024-11-09] MEDS: Atorvastatin Calcium 40 MG Tablet PO (20:49)
[2024-11-09 21:29] LABS: Bedside Glucose 293 mg/dL (74-106)
[2024-11-10] VITALS (14 sets, daily range): BP systolic 138–156; BP diastolic 54–79; PULSE 77–92; RESP 16–28; TEMP 36.1–37.1; O2SAT 80–97; BMI 22.3
[2024-11-10] MEDS: Methylprednisolone Sod Succ 40 MG/ML VIAL IV (06:09)
[2024-11-10] MEDS: 0.9% Saline Lock 10 ML Syringe IV ×3 (06:11→21:03)
[2024-11-10] MEDS: Piperacil/Tazobactam 3.375 GM in 0.9% Normal Saline (50mL MB+) 50 ML IV ×3 (06:13→21:04)
[2024-11-10] MEDS: Insulin Lispro 100 UNIT/ML INSULN.PEN SC ×4 (06:32→21:11)
[2024-11-10 06:52] LABS: Bedside Glucose 232 mg/dL (74-106)
[2024-11-10] MEDS: Ipratropium/Albuterol Sulfate 3 ML AMPUL.NEB INHALATION ×5 (07:25→23:27)
[2024-11-10 08:15] LABS: Absolute Neutrophil Count 7.6 X10^3/uL (2.0-7.7); Eosinophil# 0.03 X10^3/uL; Eosinophils% 0.3 % (0-5); Hematocrit 28.3 % (40-54); Hemoglobin 9.2 g/dL (13.0-16.5); Lymphocyte % 10.9 % (19-41); Mean Corp Hgb Conc 32.5 g/dL (32-36); Mean Corpuscular Hgb 32.7 pg (27.0-32.0); Mean Corpuscular Volume 100.7 fL (80-94); Mean Platelet Vol. 9.5 fl (6.2-12.0); Monocyte# 0.47 X10^3/uL; Monocyte% 5.1 % (0-10); NRBC Flagged by Analyzer 0 % (0-5); Neutrophil # 7.61 X10^3/uL (2.7-7.7); Platelet Count 217 K/mm3 (150-450); RBC Distribution Width CV 13.7 % (11.6-14.6); RBC Distribution Width SD 50.4 fl (35.1-43.9); Red Blood Count 2.81 M/mm3 (4.6-6.2); White Blood Count 9.2 K/mm3 (4.4-11.0)
[2024-11-10] MEDS: Losartan Potassium 50 MG Tablet PO (08:44)
[2024-11-10] MEDS: Ascorbic Acid 500 MG Tablet 1000 MG PO ×2 (08:44→15:45)
[2024-11-10] MEDS: Fluticasone 0.05% 1 SPRAY NASAL.SRY NASAL ×2 (08:44→21:02)
[2024-11-10] MEDS: Heparin Injection (Vial) 5,000 UNIT/ML VIAL 5000 UNIT SC ×2 (08:45→21:04)
[2024-11-10] MEDS: Metoprolol Tartrate 50 MG Tablet PO ×2 (08:45→21:04)
[2024-11-10] MEDS: Pantoprazole Sodium 40 MG Tablet PO (08:46)
[2024-11-10] MEDS: guaiFENesin 1,200 MG Tablet 1200 MG PO ×2 (08:46→21:04)
[2024-11-10] MEDS: Clopidogrel Bisulfate 75 MG Tablet PO (08:46)
[2024-11-10] MEDS: Cholecalciferol (Vit D3) 125 MCG CAPSULE (5,000 UNITS) PO (08:46)
[2024-11-10] MEDS: Zinc Sulfate 50 mg zinc (220 mg) ORAL capsule PO (08:46)
[2024-11-10] MEDS: amLODIPine 5 MG Tablet PO (08:46)
[2024-11-10 08:48] LABS: Anion Gap 7 (5-15); BUN 28 mg/dL (4-19); BUN/Creat Ratio 21.4 RATIO (10-20); Calcium,Total 8.7 mg/dL (7.6-11.0); Carbon Dioxide 31.9 mmol/L (21.0-32.0); Chloride 101 mmol/L (98-108); Creatinine, Serum 1.32 mg/dL (0.70-1.20); EST Glomerular Filtration Rate 57 (>60); Estimated Creatinine Clearance 54.14 ml/min (50-250); Glucose 217 mg/dL (70-99); Potassium 4.8 mmol/L (3.3-5.1); Sodium Level 139 mmol/L (133-145)
--- NOTE | 2024-11-10 10:40 | CASEMGMT ---
Addendum entered by Donna Santizo 11/11/24 14:50: Patient was accepted by [facility]. CM will continue to follow this patient and plan for a safe discharge. Original Note: RN CM in to discuss [facility] preferences with patient. Patient prefers 1. [facility] 2. [facility] 3. [facility]. Patient denied further needs or concerns at this time. Discharge is anticipated tomorrow. JOE BOLDEN made referral to [facility], awaiting response.
--- NOTE | 2024-11-10 10:42 | PCM.PN.INT ---
Assessment & Plan Assessment/Plan (1) COPD exacerbation: (2) Aspiration pneumonia: QUALIFIERS: Aspiration pneumonia type: unspecified Laterality: bilateral Lung location: unspecified part of lung Qualified Code(s): J69.0 - Pneumonitis due to inhalation of food and vomit PLAN: Plan RECOMMENDATIONS: 1. Supplemental oxygen to maintain saturations at or above 90%. 2. Continue antibiotics to complete 7 days of therapy. 3. Continue scheduled bronchodilators and steroids. 4. Maintain aspiration precautions. 5. Anticipate home-going exertional supplemental oxygen need of 8 L/min. 6. Will administer a one-time dose of IV Lasix today, but will defer ongoing need for diuretics to hospitalist/cardiology. 7. The patient should follow-up with his primary rocket scientist, Dr. Court Burdick at [facility] after discharge. 8. Given the end-stage nature of his lung disease, I would consider referral to hospice care services. 9. Will sign off. Please call with any additional questions. IMPRESSIONS: 1. Acute on chronic hypoxemic respiratory failure Presumed secondary to COPD exacerbation due to aspiration pneumonia. The patient has known end-stage lung disease along with a baseline oxygen requirement of 4 L/min. Unfortunately, the patient continues to desaturate with any form of physical exertion. He has been maintained on appropriate antimicrobials along with scheduled bronchodilators and steroids. CTA chest yesterday demonstrated no PE, but did confirm bilateral emphysematous changes with subpleural groundglass changes and basilar fibrotic changes, right greater than left. Accordingly, I would recommend that the patient be transition to prednisone, with plans to complete a 5-day burst of 40 mg daily. Unfortunately, it is unlikely that the patient will be unable to improve significantly from this current point given the end-stage nature of his lung disease. However, given his depressed ejection fraction, will administer a one-time dose of IV Lasix today. I will defer the ongoing need for diuretics to the hospitalist service/cardiology. 2. Cardiomyopathy/history of coronary artery disease status post CABG/hypertension Continue current medical management per cardiology recommendations. 3. Chronic tobacco dependency/GERD/hyperlipidemia/diabetes mellitus Complicates care, management, recovery and prognosis. Smoking cessation is strongly advised. This note was generated with [employer] software. It may contain incorrect words, spelling, and punctuation that were not noted in checking the note before signing. Subjective Subjective The patient was seen and examined at the bedside this morning. Events from the last 24 hours have been reviewed. The patient is currently afebrile, hemodynamically stable and maintaining appropriate oxygen saturations on 4 L/min. White blood cell count is normal. Hemoglobin and platelet count are stable. Creatinine is stable at 1.32. CTA chest yesterday demonstrated no PE, but did confirm bilateral emphysematous changes with subpleural groundglass changes and basilar fibrotic changes, right greater than left. Objective Data Objective Data The patient's most recent lab work, culture data and imaging studies have all been personally reviewed. Infectious workup has been unrevealing to date. Vital Signs: Vital Signs Temp Pulse Resp BP Pulse Ox O2 Del Method O2 Flow Rate 98.7 F 88 18 156/79 H 93 Nasal Cannula 4 11/10/24 08:37 11/10/24 08:45 11/10/24 08:37 11/10/24 08:45 11/10/24 08:37 11/10/24 10:00 11/10/24 10:00 FiO2 37 11/04/24 22:00 Oxygen Flow Rate (L/min) 4 Oxygen Delivery Method Nasal Cannula Weight: 169 lb 5.04 oz Body Mass Index (BMI) 22.3 Intake & Output: Intake and Output for Last 24 Hours 11/08/24 11/09/24 11/10/24 23:59 23:59 23:59 Intake Total 510 / 560 680 / 680 100 / 100 Output Total 700 / 950 950 / 1325 625 / 625 Balance -190 / -390 -270 / -645 -525 / -525 Medical Nutrition Assessment Dietitian: Malnutrition Criteria Met Start: 11/08/24 15:10 Freq: Status: Active Protocol: Document 11/08/24 15:10 RMA (Rec: 11/08/24 15:10 RMA [id number]) Nutrition Malnutrition Evidence of Yes Malnutrition Exists Malnutrition (severe Acute Illness/Injury ): Evidenced By Suboptimal Energy Intake (Severe),Weight Loss (Severe) Intake Problem Inadequate Oral Intake Etiology related to swallowing difficulty Signs/Symptoms as evidenced by NPO x 3 days Status Resolved Problem Clinical Problem Acute Disease or Injury Related Malnutrition Etiology severe protein-calorie malnutrition in the context of acute illness related to inadequate oral intake and difficulty chewing/swallowing Signs/Symptoms as evidenced by PO meeting less than 50% estimated nutrition needs x 1 week, extended NPO x 3-4 days and weight loss ~5-6% in less than 1 week Status Active Problem Recommendation Dietitian Will adjust diet to carbohydrate-controlled (no caloric Recommendations/ restriction). Changes Consistency/texture as per SISTER SUPERIOR. Will add 120mL PO glucerna shake w/ meals 3 times per day. Limit sodium and fluids as indicated once PO established with meals. Additional ONS and/or TF support to supplement PO as indicated if PO established suboptimal at meals and/or weight continues to decline. Lab / Micro Data Attestation: I reviewed the patient's lab results. 11/10/24 07:55 11/10/24 07:55 Labs: Laboratory Results - last 24 hr 11/09/24 11:34: POC Glucose 312 H 11/09/24 16:30: POC Glucose 290 H 11/09/24 20:40: POC Glucose 293 H 11/10/24 06:17: POC Glucose 232 H 11/10/24 07:55: WBC 9.2, RBC 2.81 L, Hgb 9.2 L, Hct 28.3 L, MCV 100.7 H, MCH 32.7 H, MCHC 32.5, RDW Std Deviation 50.4 H, RDW Coeff of Christine 13.7, Plt Count 217, MPV 9.5, Immature Gran % (Auto) 0.700, Neut % (Auto) 83.0 H, Lymph % (Auto) 10.9 L, [place] % (Auto) 5.1, Eos % (Auto) 0.3, Baso % (Auto) 0.0, Absolute Neuts (auto) 7.6, Absolute Lymphs (auto) 1.00, Nucleated RBC % 0, Sodium 139, Potassium 4.8, Chloride 101, Carbon Dioxide 31.9, Anion Gap 7, BUN 28 H, Creatinine 1.32 H, Estim Creat Clear Calc 54.14, Est GFR (MDRD) Non-Af 57 L, BUN/Creatinine Ratio 21.4 H, Glucose 217 H, Calcium 8.7 Micro: Microbiology 11/04/24 16:00 Mucosa - Nasopharyngeal Respiratory Panel (PCR) - Final 11/04/24 19:08 Urine, Clean Catch Legionella Antigen - Final 11/04/24 19:08 Urine, Clean Catch Streptococcus pneumoniae Antigen (M - Final 11/03/24 18:55 Mucosa - Nose SARS-CoV-2, Influenza & RSV (PCR) - Final Radiography Diagnostic Testing: Radiology Impression Chest CTA 11/09/24 13:41 IMPRESSION: No evidence of pulmonary embolism. Small left pleural effusion with calcified left pleural plaques. Findings suggestive of scarring at the lung bases more prominent on the left side. Scarring in the right middle lobe. Reading Location: [place] [address] Rhythm Strip Rhythm Strip: Sinus Rhythm Rate: 80 Ectopy: PVC(s) Physical Exam Const alert and no apparent distress General Appearance: cooperative HEENT normocephalic, head/scalp atraumatic and moist oral mucous membranes Eyes PERRL, EOMs intact bilaterally and conjunctivae normal Neck supple General: trachea midline Chest inspection of chest normal Resp normal respiratory effort and no use of accessory muscles Effort and Inspection: able to speak in complete sentences Auscultation: diminished lung sounds Cardio regular rate and regular rhythm GI normal to inspection, nondistended, normoactive bowel sounds Extremity no clubbing, cyanosis or edema Skin no rashes or lesions noted Neuro CN's II-XII intact bilaterally, moves all extremities and no focal motor deficits Psych Mood & Affect: flat affect Charges/Coding Visit Charges Inpatient E&M: 75253 Subs Hosp L2
[2024-11-10] MEDS: Furosemide 40 MG/4 ML Vial IV (11:10)
[2024-11-10 11:41] LABS: Bedside Glucose 353 mg/dL (74-106)
[2024-11-10 12:22] LABS: Pro- Brain NATRIURETIC PEPTIDE 8887 pg/mL (<=900)
--- NOTE | 2024-11-10 12:41 | PN_ITS ---
Subjective Subjective Patient seen and examined. He was comfortably eating his breakfast this morning. He had no active complaints. He remains on his baseline 4 L of oxygen. Review of systems otherwise negative. Objective Data Objective Data Vital Signs: Vital Signs Temp Pulse Resp BP Pulse Ox O2 Del Method O2 Flow Rate 98.7 F 88 16 156/79 H 93 Nasal Cannula 4 11/10/24 08:37 11/10/24 10:56 11/10/24 10:56 11/10/24 08:45 11/10/24 08:37 11/10/24 10:00 11/10/24 10:00 FiO2 37 11/04/24 22:00 Oxygen Flow Rate (L/min) 4 Oxygen Delivery Method Nasal Cannula Weight: 169 lb 5.04 oz Body Mass Index (BMI) 22.3 Intake & Output: Intake and Output for Last 24 Hours 11/08/24 11/09/24 11/10/24 23:59 23:59 23:59 Intake Total 510 / 560 680 / 680 100 / 100 Output Total 700 / 950 950 / 1325 625 / 625 Balance -190 / -390 -270 / -645 -525 / -525 Medical Nutrition Assessment Dietitian: Malnutrition Criteria Met Start: 11/08/24 15:10 Freq: Status: Active Protocol: Document 11/08/24 15:10 RMA (Rec: 11/08/24 15:10 RMA [id number]) Nutrition Malnutrition Evidence of Yes Malnutrition Exists Malnutrition (severe Acute Illness/Injury ): Evidenced By Suboptimal Energy Intake (Severe),Weight Loss (Severe) Intake Problem Inadequate Oral Intake Etiology related to swallowing difficulty Signs/Symptoms as evidenced by NPO x 3 days Status Resolved Problem Clinical Problem Acute Disease or Injury Related Malnutrition Etiology severe protein-calorie malnutrition in the context of acute illness related to inadequate oral intake and difficulty chewing/swallowing Signs/Symptoms as evidenced by PO meeting less than 50% estimated nutrition needs x 1 week, extended NPO x 3-4 days and weight loss ~5-6% in less than 1 week Status Active Problem Recommendation Dietitian Will adjust diet to carbohydrate-controlled (no caloric Recommendations/ restriction). Changes Consistency/texture as per PEDIATRIC NURSE PRACTITIONER. Will add 120mL PO glucerna shake w/ meals 3 times per day. Limit sodium and fluids as indicated once PO established with meals. Additional ONS and/or TF support to supplement PO as indicated if PO established suboptimal at meals and/or weight continues to decline. Lab / Micro Data 11/10/24 07:55 11/10/24 07:55 Labs: Laboratory Results - last 24 hr 11/09/24 16:30: POC Glucose 290 H 11/09/24 20:40: POC Glucose 293 H 11/10/24 06:17: POC Glucose 232 H 11/10/24 07:55: WBC 9.2, RBC 2.81 L, Hgb 9.2 L, Hct 28.3 L, MCV 100.7 H, MCH 32.7 H, MCHC 32.5, RDW Std Deviation 50.4 H, RDW Coeff of Christine 13.7, Plt Count 217, MPV 9.5, Immature Gran % (Auto) 0.700, Neut % (Auto) 83.0 H, Lymph % (Auto) 10.9 L, [place] % (Auto) 5.1, Eos % (Auto) 0.3, Baso % (Auto) 0.0, Absolute Neuts (auto) 7.6, Absolute Lymphs (auto) 1.00, Nucleated RBC % 0, Sodium 139, Potassium 4.8, Chloride 101, Carbon Dioxide 31.9, Anion Gap 7, BUN 28 H, C reatinine 1.32 H, Estim Creat Clear Calc 54.14, Est GFR (MDRD) Non-Af 57 L, B UN/Creatinine Ratio 21.4 H, Glucose 217 H, Calcium 8.7 11/10/24 10:58: POC Glucose 353 H 11/10/24 11:03: NT pro BNP II 8887 H Micro: Microbiology 11/04/24 16:00 Mucosa - Nasopharyngeal Respiratory Panel (PCR) - Final 11/04/24 19:08 Urine, Clean Catch Legionella Antigen - Final 11/04/24 19:08 Urine, Clean Catch Streptococcus pneumoniae Antigen (M - Final 11/03/24 18:55 Mucosa - Nose SARS-CoV-2, Influenza & RSV (PCR) - Final Radiography Diagnostic Testing: Radiology Impression Chest CTA 11/09/24 13:41 IMPRESSION: No evidence of pulmonary embolism. Small left pleural effusion with calcified left pleural plaques. Findings suggestive of scarring at the lung bases more prominent on the left side. Scarring in the right middle lobe. Reading Location: [facility] Rhythm Strip Rhythm Strip: Sinus Rhythm Rate: 80 Ectopy: PVC(s) Physical Exam Const alert, oriented x3, no apparent distress, average body habitus and well nourished Constitutional Narrative: frail, weak General Appearance: cooperative HEENT normocephalic, head/scalp atraumatic, hearing grossly normal bilaterally, moist oral mucous membranes and oropharynx normal Eyes PERRL and EOMs intact bilaterally Neck no lymphadenopathy, supple and no JVD Lymph Lymphatic: no lymphadenopathy noted and no lymphedema noted Resp Resp Narrative: mildly diminished breath sounds bibasally, no wheezes or crackles. On 4 L of oxygen by nasal canula Cardio regular rate, regular rhythm, S1 normal heart sound, S2 normal heart sound and no murmurs GI normal to inspection, nondistended, normoactive bowel sounds, soft to palpation, non-tender and non-distended Extremity normal to inspection, full ROM, normal capillary refill, no clubbing, cyanosis or edema and no calf tenderness General Extremity: no tenderness to palpation of joints or extremities Skin General Skin Exam: no breakdown Neuro CN's II-XII intact bilaterally, moves all extremities, no focal motor deficits and no sensory deficits noted Sensorium / Orientation: awake, alert, oriented to person, oriented to place and oriented to time Speech: speech normal Motor Exam: strength 5/5 throughout and general weakness Psych thought process normal, cooperative and affect normal Appearance: appropriate Assessment & Plan Assessment/Plan (1) Aspiration pneumonia: QUALIFIERS: Aspiration pneumonia type: unspecified Laterality: b ilateral Lung location: unspecified part of lung Qualified Code(s): J69.0 - Pneumonitis due to inhalation of food and vomit (2) COPD exacerbation: PLAN: Plan #Acute on chronic hypoxic respiratory failure due to COPD and aspiration pneumonia * currently on 4L of oxygen. However he continues to desaturate very easily with exertion. * CXR showed evidence of pneumonia * on IV solumedrol * on IV zosyn. Breathing treatment with bronchodilators * he had modified barium swallow and coughed during the process; modified barium swallow showed moderate oropharyngeal dysphagia. * speech therapy on board. TO have further speech evaluation again today. * titrate oxygen to maintain sats >90%. * Breathing treatment with bronchodilators. Titrate oxygen to maintain sats >90% * Respiratory panel was negative. Urine for strep and Legionella were also negative. * CTA chest showed no evidence of PE and showed small left pleural effusion with calcified left pleural plaques. * pulmonology on board * Switch to p.o. prednisone today. * #Cardiomyopathy * has EF of 45% with mild to moderate global hypokinesis of the left ventricle and stage I diastolic dysfunction and pulmonary artery systolic pressure of 65mmHg * On 4 L of oxygen which is his baseline * echo from 2022 showed EF of 55-60% and stage I diastolic dysfunction and normal LV systolic function. * Cardiology did review him based on the echo findings recommended adding on losartan 50 mg every afternoon to his medication regimen. Per cardiology once his pulmonary status is back to baseline to have a limited echo in 6 weeks time to evaluate his pulmonary artery pressures and ventricular function. * Troponins were mildly elevated on admission at 131 and peaked at 159 but trended downwards to 133. * Was given a dose of Lasix today by pulmonology. * #CAD s/p CABG and stents * on plavix and statin as well as beta kaushik. Losartan added on. * #Hypertension: on metoprolol and amlodipine #GERD: on PPI DVT prophylaxis: heparin * Charges/Coding Visit Charges Inpatient E&M: 62561 Subs Hosp L2
[2024-11-10 16:18] LABS: Bedside Glucose 156 mg/dL (74-106)
[2024-11-10] MEDS: 0.9% Normal Saline (100mL Bag) 100 ML 15 ML IV (21:03)
[2024-11-10] MEDS: Atorvastatin Calcium 40 MG Tablet PO (21:04)
[2024-11-10 22:59] LABS: Bedside Glucose 266 mg/dL (74-106)
[2024-11-11] VITALS (10 sets, daily range): BP systolic 125–146; BP diastolic 62–66; PULSE 73–100; RESP 20–27; TEMP 36.6–36.8; O2SAT 92–99; BMI 22.2
[2024-11-11] MEDS: Piperacil/Tazobactam 3.375 GM in 0.9% Normal Saline (50mL MB+) 50 ML IV ×3 (06:20→22:12)
[2024-11-11] MEDS: Insulin Lispro 100 UNIT/ML INSULN.PEN SC ×4 (06:26→22:15)
[2024-11-11 06:49] LABS: Absolute Lymphocyte Count 3.25 X10^3/uL (0.83-4.51); Absolute Neutrophil Count 7.3 X10^3/uL (2.0-7.7); Basophil# 0.01 X10^3/uL; Basophil% 0.1 % (0-1); Eosinophil# 0.39 X10^3/uL; Eosinophils% 3.3 % (0-5); Hematocrit 28.3 % (40-54); Hemoglobin 9.1 g/dL (13.0-16.5); Lymphocyte # 3.25 X10^3/ul (0.83-4.51); Lymphocyte % 27.9 % (19-41); Mean Corp Hgb Conc 32.2 g/dL (32-36); Mean Corpuscular Hgb 32.4 pg (27.0-32.0); Mean Corpuscular Volume 100.7 fL (80-94); Mean Platelet Vol. 9.6 fl (6.2-12.0); Monocyte# 0.64 X10^3/uL; Monocyte% 5.5 % (0-10); NRBC Flagged by Analyzer 0 % (0-5); Neutrophil # 7.31 X10^3/uL (2.7-7.7); Neutrophil % 62.7 % (47-70); Platelet Count 223 K/mm3 (150-450); RBC Distribution Width CV 13.8 % (11.6-14.6); RBC Distribution Width SD 50.9 fl (35.1-43.9); Red Blood Count 2.81 M/mm3 (4.6-6.2); White Blood Count 11.7 K/mm3 (4.4-11.0)
[2024-11-11 06:55] LABS: Bedside Glucose 155 mg/dL (74-106)
[2024-11-11] MEDS: Ipratropium/Albuterol Sulfate 3 ML AMPUL.NEB INHALATION ×5 (07:15→23:16)
[2024-11-11 07:30] LABS: Anion Gap 8 (5-15); BUN 27 mg/dL (4-19); BUN/Creat Ratio 17.8 RATIO (10-20); Calcium,Total 8.6 mg/dL (7.6-11.0); Chloride 100 mmol/L (98-108); Creatinine, Serum 1.51 mg/dL (0.70-1.20); EST Glomerular Filtration Rate 48 (>60); Estimated Creatinine Clearance 47.14 ml/min (50-250); Glucose 156 mg/dL (70-99); Potassium 3.9 mmol/L (3.3-5.1); Sodium Level 141 mmol/L (133-145)
[2024-11-11] MEDS: Metoprolol Tartrate 50 MG Tablet PO ×2 (09:13→22:20)
[2024-11-11] MEDS: Clopidogrel Bisulfate 75 MG Tablet PO (09:13)
[2024-11-11] MEDS: amLODIPine 5 MG Tablet PO (09:13)
[2024-11-11] MEDS: Losartan Potassium 50 MG Tablet PO (09:13)
[2024-11-11] MEDS: Cholecalciferol (Vit D3) 125 MCG CAPSULE (5,000 UNITS) PO (09:13)
[2024-11-11] MEDS: Zinc Sulfate 50 mg zinc (220 mg) ORAL capsule PO (09:13)
[2024-11-11] MEDS: Ascorbic Acid 500 MG Tablet 1000 MG PO ×2 (09:13→16:57)
[2024-11-11] MEDS: Fluticasone 0.05% 1 SPRAY NASAL.SRY NASAL ×2 (09:14→22:13)
[2024-11-11] MEDS: predniSONE 20 MG Tablet 40 MG PO (09:14)
[2024-11-11] MEDS: Pantoprazole Sodium 40 MG Tablet PO (09:14)
[2024-11-11] MEDS: Menthol/Lanolin/Calamine/Znox 113 GM Tube 1 APPLIC TOPICAL ×2 (09:14→22:13)
[2024-11-11] MEDS: Heparin Injection (Vial) 5,000 UNIT/ML VIAL 5000 UNIT SC ×2 (09:14→22:14)
[2024-11-11] MEDS: guaiFENesin 1,200 MG Tablet 1200 MG PO ×2 (09:14→22:21)
[2024-11-11] MEDS: Furosemide 40 MG/4 ML Vial IV (09:16)
[2024-11-11] MEDS: 0.9% Saline Lock 10 ML Syringe IV (09:16)
[2024-11-11 11:41] LABS: Bedside Glucose 218 mg/dL (74-106)
--- NOTE | 2024-11-11 12:51 | PN_ITS ---
Subjective Subjective Patient seen and examined. HE had no active complaints. He was on 4L of oxygen which is his baseline. Review of systems is otherwise negative. Objective Data Objective Data Vital Signs: Vital Signs Temp Pulse Resp BP Pulse Ox O2 Del Method O2 Flow Rate 98.3 F 82 20 H 134/62 H 96 Nasal Cannula 4 11/11/24 09:02 11/11/24 11:02 11/11/24 11:02 11/11/24 09:02 11/11/24 09:02 11/11/24 09:04 11/11/24 09:04 FiO2 37 11/04/24 22:00 Oxygen Flow Rate (L/min) 4 Oxygen Delivery Method Nasal Cannula Weight: 168 lb 10.458 oz Body Mass Index (BMI) 22.2 Intake & Output: Intake and Output for Last 24 Hours 11/09/24 11/10/24 11/11/24 23:59 23:59 23:59 Intake Total 680 / 680 512.5 / 512.5 354 / 354 Output Total 950 / 1325 2250 / 2250 1150 / 1150 Balance -270 / -645 -1737.5 / -1737.5 -796 / -796 Medical Nutrition Assessment Dietitian: Malnutrition Criteria Met Start: 11/08/24 15:10 Freq: Status: Active Protocol: Document 11/08/24 15:10 RMA (Rec: 11/08/24 15:10 RMA [id number]) Nutrition Malnutrition Evidence of Yes Malnutrition Exists Malnutrition (severe Acute Illness/Injury ): Evidenced By Suboptimal Energy Intake (Severe),Weight Loss (Severe) Intake Problem Inadequate Oral Intake Etiology related to swallowing difficulty Signs/Symptoms as evidenced by NPO x 3 days Status Resolved Problem Clinical Problem Acute Disease or Injury Related Malnutrition Etiology severe protein-calorie malnutrition in the context of acute illness related to inadequate oral intake and difficulty chewing/swallowing Signs/Symptoms as evidenced by PO meeting less than 50% estimated nutrition needs x 1 week, extended NPO x 3-4 days and weight loss ~5-6% in less than 1 week Status Active Problem Recommendation Dietitian Will adjust diet to carbohydrate-controlled (no caloric Recommendations/ restriction). Changes Consistency/texture as per SHOW HOST OR HOSTESS. Will add 120mL PO glucerna shake w/ meals 3 times per day. Limit sodium and fluids as indicated once PO established with meals. Additional ONS and/or TF support to supplement PO as indicated if PO established suboptimal at meals and/or weight continues to decline. Lab / Micro Data 11/11/24 06:12 11/11/24 06:12 Labs: Laboratory Results - last 24 hr 11/10/24 15:43: POC Glucose 156 H 11/10/24 21:10: POC Glucose 266 H 11/11/24 06:12: WBC 11.7 H, RBC 2.81 L, Hgb 9.1 L, Hct 28.3 L, MCV 100.7 H, MCH 32.4 H, MCHC 32.2, RDW Std Deviation 50.9 H, RDW Coeff of Christine 13.8, Plt Count 223, MPV 9.6, Immature Gran % (Auto) 0.500, Neut % (Auto) 62.7, Lymph % (Auto) 27.9, [place] % (Auto) 5.5, Eos % (Auto) 3.3, Baso % (Auto) 0.1, Absolute Neuts (auto) 7.3, Absolute Lymphs (auto) 3.25, Nucleated RBC % 0, Sodium 141, Potassium 3.9, Chloride 100, Carbon Dioxide 33.0 H, Anion Gap 8, BUN 27 H, C reatinine 1.51 H, Estim Creat Clear Calc 47.14 L, Est GFR (MDRD) Non-Af 48 L, BUN/Creatinine Ratio 17.8, Glucose 156 H, Calcium 8.6 11/11/24 06:24: POC Glucose 155 H 11/11/24 11:19: POC Glucose 218 H Micro: Microbiology 11/04/24 16:00 Mucosa - Nasopharyngeal Respiratory Panel (PCR) - Final 11/04/24 19:08 Urine, Clean Catch Legionella Antigen - Final 11/04/24 19:08 Urine, Clean Catch Streptococcus pneumoniae Antigen (M - Final 11/03/24 18:55 Mucosa - Nose SARS-CoV-2, Influenza & RSV (PCR) - Final Rhythm Strip Rhythm Strip: Sinus Rhythm Rate: 80 Ectopy: PVC(s) Physical Exam Const alert, oriented x3, no apparent distress, average body habitus and well nourished Constitutional Narrative: frail, weak General Appearance: cooperative HEENT normocephalic, head/scalp atraumatic, hearing grossly normal bilaterally, moist oral mucous membranes and oropharynx normal Eyes PERRL and EOMs intact bilaterally Neck no lymphadenopathy, supple and no JVD Lymph Lymphatic: no lymphadenopathy noted and no lymphedema noted Resp Resp Narrative: mildly diminished breath sounds bibasally, no wheezes or crackles. On 4 L of oxygen by nasal canula Cardio regular rate, regular rhythm, S1 normal heart sound and S2 normal heart sound GI normal to inspection, nondistended, normoactive bowel sounds, soft to palpation and non-tender Extremity normal to inspection, full ROM, normal capillary refill, no clubbing, cyanosis or edema and no calf tenderness General Extremity: no tenderness to palpation of joints or extremities Skin General Skin Exam: no breakdown Neuro CN's II-XII intact bilaterally, moves all extremities, no focal motor deficits and no sensory deficits noted Sensorium / Orientation: awake, alert, oriented to person, oriented to place and oriented to time Speech: speech normal Motor Exam: strength 5/5 throughout and general weakness Psych thought process normal, cooperative and affect normal Appearance: appropriate Assessment & Plan Assessment/Plan (1) Aspiration pneumonia: QUALIFIERS: Aspiration pneumonia type: unspecified Laterality: b ilateral Lung location: unspecified part of lung Qualified Code(s): J69.0 - Pneumonitis due to inhalation of food and vomit (2) COPD exacerbation: PLAN: Plan #Acute on chronic hypoxic respiratory failure due to COPD and aspiration pneumonia * remains on 4L of oxygen. However he continues to desaturate very easily with exertion. * CXR showed evidence of pneumonia * on IV solumedrol * on IV zosyn. Breathing treatment with bronchodilators * he had modified barium swallow and coughed during the process; modified barium swallow showed moderate oropharyngeal dysphagia. * speech therapy on board. TO have further speech evaluation again today. * titrate oxygen to maintain sats >90%. * Breathing treatment with bronchodilators. Titrate oxygen to maintain sats >90% * Respiratory panel was negative. Urine for strep and Legionella were also negative. * CTA chest showed no evidence of PE and showed small left pleural effusion with calcified left pleural plaques. * pulmonology on board * on PO prednisone * #Cardiomyopathy * has EF of 45% with mild to moderate global hypokinesis of the left ventricle and stage I diastolic dysfunction and pulmonary artery systolic pressure of 65mmHg * On 4 L of oxygen which is his baseline * echo from 2022 showed EF of 55-60% and stage I diastolic dysfunction and normal LV systolic function. * Cardiology did review him based on the echo findings recommended adding on losartan 50 mg every afternoon to his medication regimen. Per cardiology once his pulmonary status is back to baseline to have a limited echo in 6 weeks time to evaluate his pulmonary artery pressures and ventricular function. * Troponins were mildly elevated on admission at 131 and peaked at 159 but trended downwards to 133. * received lasix yesterday, will give another dose of lasix today * #CAD s/p CABG and stents * on plavix and statin as well as beta kaushik. Also on losartan * #CKD stage III: Creatinine is 1.51 today. Baseline creatinine has been around 1.5 from admission. Will monitor. #Hypertension: on metoprolol and amlodipine #GERD: on PPI DVT prophylaxis: heparin * Charges/Coding Visit Charges Inpatient E&M: 05546 Subs Hosp L2
[2024-11-11 17:18] LABS: Bedside Glucose 245 mg/dL (74-106)
[2024-11-11] MEDS: Atorvastatin Calcium 40 MG Tablet PO (22:21)
[2024-11-11 22:46] LABS: Bedside Glucose 392 mg/dL (74-106)
[2024-11-12] VITALS (15 sets, daily range): BP systolic 125–137; BP diastolic 55–96; PULSE 74–87; RESP 17–30; TEMP 36–36.9; O2SAT 84–100; BMI 21.6
[2024-11-12] MEDS: Ipratropium/Albuterol Sulfate 3 ML AMPUL.NEB INHALATION ×4 (02:39→15:48)
[2024-11-12 06:22] LABS: Absolute Lymphocyte Count 2.54 X10^3/uL (0.83-4.51); Absolute Neutrophil Count 5.8 X10^3/uL (2.0-7.7); Basophil# 0.01 X10^3/uL; Basophil% 0.1 % (0-1); Eosinophil# 0.23 X10^3/uL; Eosinophils% 2.5 % (0-5); Hematocrit 27.6 % (40-54); Hemoglobin 9.1 g/dL (13.0-16.5); Lymphocyte # 2.54 X10^3/ul (0.83-4.51); Lymphocyte % 27.3 % (19-41); Mean Corpuscular Hgb 32.9 pg (27.0-32.0); Mean Corpuscular Volume 99.6 fL (80-94); Mean Platelet Vol. 9.9 fl (6.2-12.0); Monocyte# 0.73 X10^3/uL; Monocyte% 7.8 % (0-10); NRBC Flagged by Analyzer 0 % (0-5); Neutrophil # 5.76 X10^3/uL (2.7-7.7); Neutrophil % 61.8 % (47-70); Platelet Count 237 K/mm3 (150-450); RBC Distribution Width CV 13.8 % (11.6-14.6); RBC Distribution Width SD 50.1 fl (35.1-43.9); Red Blood Count 2.77 M/mm3 (4.6-6.2); White Blood Count 9.3 K/mm3 (4.4-11.0)
[2024-11-12] MEDS: Piperacil/Tazobactam 3.375 GM in 0.9% Normal Saline (50mL MB+) 50 ML IV (06:41)
[2024-11-12 07:45] LABS: Anion Gap 10 (5-15); BUN 29 mg/dL (4-19); BUN/Creat Ratio 17.4 RATIO (10-20); Calcium,Total 8.6 mg/dL (7.6-11.0); Carbon Dioxide 32.8 mmol/L (21.0-32.0); Chloride 97 mmol/L (98-108); Creatinine, Serum 1.66 mg/dL (0.70-1.20); EST Glomerular Filtration Rate 43 (>60); Estimated Creatinine Clearance 41.71 ml/min (50-250); Glucose 183 mg/dL (70-99); Sodium Level 140 mmol/L (133-145)
[2024-11-12] MEDS: Insulin Lispro 100 UNIT/ML INSULN.PEN SC ×2 (08:09→11:58)
[2024-11-12 08:29] LABS: Bedside Glucose 162 mg/dL (74-106)
[2024-11-12] MEDS: Zinc Sulfate 50 mg zinc (220 mg) ORAL capsule PO (10:07)
[2024-11-12] MEDS: Clopidogrel Bisulfate 75 MG Tablet PO (10:08)
[2024-11-12] MEDS: predniSONE 20 MG Tablet 40 MG PO (10:08)
[2024-11-12] MEDS: Ascorbic Acid 500 MG Tablet 1000 MG PO (10:08)
[2024-11-12] MEDS: Fluticasone 0.05% 1 SPRAY NASAL.SRY NASAL (10:08)
[2024-11-12] MEDS: amLODIPine 5 MG Tablet PO (10:08)
[2024-11-12] MEDS: Cholecalciferol (Vit D3) 125 MCG CAPSULE (5,000 UNITS) PO (10:08)
[2024-11-12] MEDS: Pantoprazole Sodium 40 MG Tablet PO (10:09)
[2024-11-12] MEDS: Metoprolol Tartrate 50 MG Tablet PO (10:09)
[2024-11-12] MEDS: Losartan Potassium 50 MG Tablet PO (10:09)
[2024-11-12] MEDS: guaiFENesin 1,200 MG Tablet 1200 MG PO (10:09)
[2024-11-12] MEDS: Heparin Injection (Vial) 5,000 UNIT/ML VIAL 5000 UNIT SC (10:12)
[2024-11-12 12:17] LABS: Bedside Glucose 320 mg/dL (74-106)
--- NOTE | 2024-11-12 15:26 | DS.PCM_ITS ---
Providers Date of Admission: 11/03/24 Date of Discharge: 11/12/24 Primary Care Physician: Dr. Royce Carroll MD Consultations 11/08/24 11:19 Consult: Cardiology Routine Consulting Provider: Олег Horne Reason for Consult: reduced EF per echo EMERGENT Consult: No Notified: Yes Date Notified: 11/08/24 Time Notified: 11:19 Method of Notification: Text 11/09/24 12:51 Consult: Business Systems Lead / Pulmonary Medicine Routine Consulting Provider: Intensivists/Pulmonary Med Reason for Consult: acute on chronic hypoxic respiratory failure EMERGENT Consult: No Notified: Yes Date Notified: 11/09/24 Time Notified: 12:51 Method of Notification: Text Reason For Visit: ASPIRATION PNA & AE COPD Diagnosis Discharge Diagnosis (1) Aspiration pneumonia: Status: Acute Code(s): J69.0 - Pneumonitis due to inhalation of food and vomit Qualifiers: Aspiration pneumonia type: unspecified Laterality: bilateral Lung location: unspecified part of lung Qualified Code(s): J69.0 - Pneumonitis due to inhalation of food and vomit (2) COPD exacerbation: Status: Chronic Code(s): J44.1 - Chronic obstructive pulmonary disease with (acute) exacerbation Plan #Acute on chronic hypoxic respiratory failure due to COPD and aspiration pneumonia * remains on 4L of oxygen. However he continues to desaturate very easily with exertion. * CXR showed evidence of pneumonia * on IV solumedrol * on IV zosyn. Breathing treatment with bronchodilators * he had modified barium swallow and coughed during the process; modified barium swallow showed moderate oropharyngeal dysphagia. * speech therapy on board. TO have further speech evaluation again today. * titrate oxygen to maintain sats >90%. * Breathing treatment with bronchodilators. Titrate oxygen to maintain sats >90% * Respiratory panel was negative. Urine for strep and Legionella were also negative. * CTA chest showed no evidence of PE and showed small left pleural effusion with calcified left pleural plaques. * pulmonology on board * on PO prednisone * #Cardiomyopathy * has EF of 45% with mild to moderate global hypokinesis of the left ventricle and stage I diastolic dysfunction and pulmonary artery systolic pressure of 65mmHg * On 4 L of oxygen which is his baseline * echo from 2022 showed EF of 55-60% and stage I diastolic dysfunction and normal LV systolic function. * Cardiology did review him based on the echo findings recommended adding on losartan 50 mg every afternoon to his medication regimen. Per cardiology once his pulmonary status is back to baseline to have a limited echo in 6 weeks time to evaluate his pulmonary artery pressures and ventricular function. * Troponins were mildly elevated on admission at 131 and peaked at 159 but trended downwards to 133. * received lasix yesterday, will give another dose of lasix today * #CAD s/p CABG and stents * on plavix and statin as well as beta kaushik. Also on losartan * #CKD stage III: Creatinine is 1.51 today. Baseline creatinine has been around 1.5 from admission. Will monitor. #Hypertension: on metoprolol and amlodipine #GERD: on PPI DVT prophylaxis: heparin * Medications at Discharge Home Medications clopidogrel 75 mg tablet 75 mg PO DAILY Check with primary doctor 03/24/16 metoprolol tartrate 50 mg tablet 50 mg PO BID Check with primary doctor 03/24/16 amlodipine 5 mg tablet 5 mg PO DAILY Check with primary doctor 12/11/22 sertraline 100 mg tablet 100 mg PO DAILY Check with primary doctor 12/11/22 albuterol sulfate 2.5 mg/3 mL (0.083 %) solution for nebulization 2.5 mg (3 mL) inhalation Q2H PRN PRN shortness of breath or wheezing #1 mL 12/17/22 ipratropium 0.5 mg-albuterol 3 mg (2.5 mg base)/3 mL nebulization soln 3 ml inhalation 4X/DAY #120 mL 12/17/22 albuterol sulfate 90 mcg/actuation aerosol inhaler 2 puff inhalation Q4H PRN PRN wheezing 11/03/24 atorvastatin 40 mg tablet 40 mg PO QHS cholesterol 11/03/24 fluticasone fur. 100 mcg-umeclid 62.5 mcg-vilant 25 mcg inhalat.powder (Trelegy Ellipta) 1 ea inhalation DAILY 11/03/24 fluticasone propionate 50 mcg/actuation nasal spray,suspension 1 spray intranasal BID 11/03/24 metformin 500 mg tablet 500 mg PO BID 11/03/24 amoxicillin 875 mg-potassium clavulanate 125 mg tablet 1 tab PO BID #10 tabs 11/12/24 furosemide 40 mg tablet 40 mg PO DAILY #30 tabs 11/12/24 potassium chloride 20 mEq tablet,extended release(part/cryst) (Klor-Con M) 20 meq PO DAILY #30 tabs 11/12/24 prednisone 20 mg tablet 40 mg (2 x 20 mg) PO BREAKFAST 4 days #8 tabs 11/12/24 Hospital Course Operations None Procedures 2-D Echocardiogram Summary of Care Provided Minutes Spent on Discharge: 47 Hospital Course: Patient is a 74 y/o male with a PMH as outlined who was admitted via the ED on 11/03/2024 with a complaint of shortness of breath, wheezing and cough with drinking. Was initially present with exertion but subsequently the shortness of breath was present even at rest and he also had chest tightness due to shortness of breath. Family noted that he also had coughing fits whilst drinking fluids. He denied any fever or chills or runny nose or any other such symptoms. On admission WBC was elevated at 12.7 and chest x-ray showed upper lobe emphysema with small bilateral pleural effusion and scarring in the mid to lower lungs as well as bilateral airspace disease more prominent on the right suspicious for pneumonia. There was concern for aspiration. Patient was on 5 L of oxygen and usually will 4 L at home. He was admitted and managed for hypoxia in the setting of chronic respiratory failure due to probable aspiration pneumonia as well as COPD exacerbation. He was placed on IV Solu-Medrol and IV Zosyn. Respiratory panel was negative and urine. And Legionella were also negative. He did have 2D echo which showed EF of 45% with mild to moderate global hypokinesis of the left ventricle and stage I diastolic dysfunction as well as pulmonary artery systolic pressure of 65 mmHg. Patient was started on diuresis with IV Lasix and cardiology was consulted as his previous echo has shown EF of 55 to 60%. Cardiology reviewed him and felt that his symptoms and echo findings were likely due to the acute effect of the acute on chronic respiratory failure and recommended that patient follow-up with his outpatient motorcycle delivery driver for limited echo to be repeated in about 6 weeks to evaluate the left ventricular systolic function. Patient did continue to require increasing amounts of oxygen and so pulmonology was consulted. Patient was diuresed and this did help with the shortness of breath. Pulmonology recommended hospice but patient was adamantly opposed to this. With diuresis patient shortness of breath gradually improved and he felt much better. He had walking pulse ox on 11/12/2024 which showed that he required 6 L of oxygen. Patient was therefore discharged home on 6 L of oxygen with ambulation on 11/12/2024. He was discharged on a 5-day course of p.o. Augmentin and on a 4-day course of p.o. prednisone. He was also discharged on p.o. Lasix 40 mg daily with 20 mEq of potassium daily supplementation. He is follow-up with his primary care doctor with his natural gas engineer and motorcycle delivery driver within 1 to 2 weeks. Patient seen and examined. He said he felt much better and was eager to be discharged home. He had no active complaints. Review of systems otherwise negative. Labs and vitals reviewed. Home medication reviewed and reconciled. Physical Exam Const alert, oriented x3, no apparent distress, average body habitus and well nourished Constitutional Narrative: frail, weak General Appearance: cooperative and comfortable Orientation / Consciousness: awake HEENT normocephalic, head/scalp atraumatic, hearing grossly normal bilaterally, moist oral mucous membranes and oropharynx normal Mouth: oral and palatal mucosa normal Eyes PERRL and EOMs intact bilaterally Neck no lymphadenopathy, supple and no JVD Lymph Lymphatic: no lymphadenopathy noted and no lymphedema noted Resp Resp Narrative: mildly diminished breath sounds bibasally, no wheezes or crackles. On 4 L of oxygen by nasal canula Auscultation: wheezes Cardio regular rate, regular rhythm, S1 normal heart sound, S2 normal heart sound and no murmurs GI normal to inspection, nondistended, normoactive bowel sounds, soft to palpation, non-tender and non-distended Extremity normal to inspection, full ROM, normal capillary refill, no clubbing, cyanosis or edema and no calf tenderness General Extremity: no tenderness to palpation of joints or extremities Skin General Skin Exam: no breakdown Neuro CN's II-XII intact bilaterally, moves all extremities, no focal motor deficits and no sensory deficits noted Sensorium / Orientation: awake, alert, oriented to person, oriented to place and oriented to time Speech: speech normal Motor Exam: strength 5/5 throughout and general weakness Psych thought process normal, cooperative and affect normal Appearance: appropriate Medical Records Data Medical Nutrition Assessment Dietitian: Malnutrition Criteria Met Start: 11/08/24 15:10 Freq: Status: Active Protocol: Document 11/08/24 15:10 RMA (Rec: 11/08/24 15:10 RMA [id number]) Nutrition Malnutrition Evidence of Yes Malnutrition Exists Malnutrition (severe Acute Illness/Injury ): Evidenced By Suboptimal Energy Intake (Severe),Weight Loss (Severe) Intake Problem Inadequate Oral Intake Etiology related to swallowing difficulty Signs/Symptoms as evidenced by NPO x 3 days Status Resolved Problem Clinical Problem Acute Disease or Injury Related Malnutrition Etiology severe protein-calorie malnutrition in the context of acute illness related to inadequate oral intake and difficulty chewing/swallowing Signs/Symptoms as evidenced by PO meeting less than 50% estimated nutrition needs x 1 week, extended NPO x 3-4 days and weight loss ~5-6% in less than 1 week Status Active Problem Recommendation Dietitian Will adjust diet to carbohydrate-controlled (no caloric Recommendations/ restriction). Changes Consistency/texture as per COLDFUSION. Will add 120mL PO glucerna shake w/ meals 3 times per day. Limit sodium and fluids as indicated once PO established with meals. Additional ONS and/or TF support to supplement PO as indicated if PO established suboptimal at meals and/or weight continues to decline. Weight / BMI Weight Weight: 164 lb 0.383 oz Body Mass Index (BMI) 21.6 ABG / Lab / Microbiology Data 11/12/24 05:10 11/12/24 05:10 Laboratory: Laboratory Results - last 24 hr 11/11/24 16:53: POC Glucose 245 H 11/11/24 22:01: POC Glucose 392 H 11/12/24 05:10: WBC 9.3, RBC 2.77 L, Hgb 9.1 L, Hct 27.6 L, MCV 99.6 H, MCH 32.9 H, MCHC 33.0, RDW Std Deviation 50.1 H, RDW Coeff of Christine 13.8, Plt Count 237, MPV 9.9, Immature Gran % (Auto) 0.500, Neut % (Auto) 61.8, Lymph % (Auto) 27.3, Spink % (Auto) 7.8, Eos % (Auto) 2.5, Baso % (Auto) 0.1, Absolute Neuts (auto) 5.8, Absolute Lymphs (auto) 2.54, Nucleated RBC % 0, Sodium 140, Potassium 4.0, Chloride 97 L, Carbon Dioxide 32.8 H, Anion Gap 10, BUN 29 H, Creatinine 1.66 H, Estim Creat Clear Calc 41.71 L, Est GFR (MDRD) Non-Af 43 L, BUN/Creatinine Ratio 17.4, Glucose 183 H, Calcium 8.6 11/12/24 08:08: POC Glucose 162 H 11/12/24 11:56: POC Glucose 320 H Microbiology: Microbiology 11/04/24 16:00 Mucosa - Nasopharyngeal Respiratory Panel (PCR) - Final 11/04/24 19:08 Urine, Clean Catch Legionella Antigen - Final 11/04/24 19:08 Urine, Clean Catch Streptococcus pneumoniae Antigen (M - Final 11/03/24 18:55 Mucosa - Nose SARS-CoV-2, Influenza & RSV (PCR) - Final D/C Instructions Discharge Diet: Low fat / Low cholesterol Discharge Activity: Return to Normal Activity Weight Bearing Status: Weight bearing as tolerated Call your doctor if you observe: Fever of 101 or Higher, Shortness of breath, Dizziness, Swelling in the ankles and Chest pain DC O2, CPAP, BIPAP Needs Home O2 Discharge instructions: Yes Type of respiratory needs?: Oxygen (6) Oxygen frequency: With Ambulation Oxygen liters per minute during Ambulation: 6 DC home with Oxygen: Yes Home O2 MD Review: I have reviewed the oxygen testing, and the patient qualifies for home oxygen equipment and portability. The patient is mobile in the home and the community. Meaningful Use Info Meaningful Use Meaningful Use Diagnoses (Choose all that apply): None applicable Ischemic Stroke Statin Dosing Therapy Reference: STATIN DOSE THERAPY REFERENCE: * Patients > 75 years receive moderate or high dose statin therapy. * Patients 75 years or YOUNGER should receive HIGH intensity statin dose unless contraindicated. You will be required to document reason for non-treatment if statin daily dose does not meet guidelines. HIGH DOSE STATIN THERAPY DAILY Atorvastatin > than or = to 40 mg Rosuvastatin > than or = to 20 mg Amlodipine + Atorvastatin > than or = to 2.5/40 mg Ezetimibe + Simvastatin 10/80 mg Simvastatin 80mg Discharge Plan Admission Admit Date/Time: 11/03/24 21:18 Primary Reason for Your Visit: acute on chronic respiratory failure, aspiration pneumonia Attending Provider: Rafaela Pelayo Primary Care Provider: Royce Carroll Consulting Providers: Naga Leigh; Anabell Hinkle; Олег Horne Instructions Patient Instructions: Dysphagia Aspiration Discharge Orders/Prescriptions Prescriptions: New furosemide 40 mg tablet 40 mg PO DAILY Qty: 30 2RF potassium chloride [Klor-Con M20] 20 mEq tablet,ER particles/crystals 20 meq PO DAILY Qty: 30 1RF prednisone 20 mg Tablet 40 mg PO BREAKFAST 4 Days Qty: 8 8RF amoxicillin-pot clavulanate 875-125 mg tablet 1 tab PO BID Qty: 10 0RF Continued clopidogrel 75 MG tablet 75 mg PO DAILY Patient Comments: cholesterol metoprolol tartrate 50 MG tablet 50 mg PO BID Patient Comments: treat Blood pressure sertraline 100 mg tablet 100 mg PO DAILY Patient Comments: TAKE 1 TABLET BY MOUTH EVERY DAY amlodipine 5 mg tablet 5 mg PO DAILY Patient Comments: TAKE 1 TABLET BY MOUTH EVERY DAY ipratropium-albuterol 0.5 mg-3 mg(2.5 mg base)/3 mL Solution For Nebulization 3 ml inhalation 4X/DAY Qty: 120 0RF albuterol sulfate 2.5 mg /3 mL (0.083 %) solution for nebulization 2.5 mg inhalation Q2H PRN PRN (Reason: shortness of breath or wheezing) Qty: 1 0RF Rx Instructions: Use every two hours as needed for shortness of breath atorvastatin 40 mg tablet 40 mg PO QHS metformin 500 mg tablet 500 mg PO BID fluticasone propionate 50 mcg/actuation spray,suspension 1 spray INTRANASAL BID Trelegy Ellipta 100-62.5-25 mcg blister with device 1 ea inhalation DAILY albuterol sulfate 90 mcg/actuation HFA aerosol inhaler 2 puff inhalation Q4H PRN PRN (Reason: wheezing) Referrals / Follow Up: Royce Carroll MD [Primary Care Provider] - Within 1 Week Disposition Disposition (needs filled in before D/C Order can be placed): Home Health Service Charges/Coding Visit Charges Inpatient E&M: 81846 Disch Hosp >30min
--- NOTE | 2024-11-12 15:47 | PHA.DC_ITS ---
Pharmacy [facility] has performed discharge medication reconciliation and counseling for this patient. The patient's discharge medication list was reviewed for discrepancies and discrepancies were resolved. The patient was counseled on the following discharge medications and changes in medications for homegoing were reviewed. The Reason for Use, instructions for use, and potential side effects were reviewed for all new medications. The patient's questions regarding all of their medications were answered. 1. Amoxicillin/clavulanate 875/125 mg PO BID x 5 days 2. Prednisone 40 mg PO daily x 4 days 3. Furosemide 40 mg PO daily 4. Potassium 20 mEq PO daily The patient was able to verbally demonstrate an understanding of their discharge medications. Medications at Discharge Home Medications clopidogrel 75 mg tablet 75 mg PO DAILY Check with primary doctor 03/24/16 metoprolol tartrate 50 mg tablet 50 mg PO BID Check with primary doctor 03/24/16 amlodipine 5 mg tablet 5 mg PO DAILY Check with primary doctor 12/11/22 sertraline 100 mg tablet 100 mg PO DAILY Check with primary doctor 12/11/22 albuterol sulfate 2.5 mg/3 mL (0.083 %) solution for nebulization 2.5 mg (3 mL) inhalation Q2H PRN PRN shortness of breath or wheezing #1 mL 12/17/22 ipratropium 0.5 mg-albuterol 3 mg (2.5 mg base)/3 mL nebulization soln 3 ml inhalation 4X/DAY #120 mL 12/17/22 albuterol sulfate 90 mcg/actuation aerosol inhaler 2 puff inhalation Q4H PRN PRN wheezing 11/03/24 atorvastatin 40 mg tablet 40 mg PO QHS cholesterol 11/03/24 fluticasone fur. 100 mcg-umeclid 62.5 mcg-vilant 25 mcg inhalat.powder (Trelegy Ellipta) 1 ea inhalation DAILY 11/03/24 fluticasone propionate 50 mcg/actuation nasal spray,suspension 1 spray intranasal BID 11/03/24 metformin 500 mg tablet 500 mg PO BID 11/03/24 amoxicillin 875 mg-potassium clavulanate 125 mg tablet 1 tab PO BID #10 tabs 11/12/24 furosemide 40 mg tablet 40 mg PO DAILY #30 tabs 11/12/24 potassium chloride 20 mEq tablet,extended release(part/cryst) (Klor-Con M) 20 meq PO DAILY #30 tabs 11/12/24 prednisone 20 mg tablet 40 mg (2 x 20 mg) PO BREAKFAST 4 days #8 tabs 11/12/24
--- NOTE | 2024-11-12 15:55 | CASEMGMT ---
Patient has order for discharge. JOE BOLDEN updated that patient will require increase in home oxygen, script received and referral sent to [facility] for updated equipment. JOE BOLDEN called and updated [facility], start of care planned for tomorrow. JOE BOLDEN updated discharge plan. JOE BOLDEN in to update patient regarding increase in home oxygen and HHC start of care. Patient states family will bring portable tank at home for discharge. Patient denied further needs or concerns.
== END 2024-11-12 17:05 | disposition home health service (06) | DRG 177 ==
LOC: ED 21:18 → PCU 21:39
PROVIDERS: Internal Medicine; Internal Medicine Critical Care Medicine; Admitting Provider Internal Medicine; Emergency Provider Emergency Medicine; PCP Internal Medicine; Visit Provider Student in an Organized Health Care Education/Training Program
DX: J69.0 Pneumonitis due to inhalation of food and vomit (principal); J96.21 Acute and chronic respiratory failure with hypoxia; E43 Unspecified severe protein-calorie malnutrition; I24.89 Other forms of acute ischemic heart disease; J44.1 Chronic obstructive pulmonary disease with (acute) exacerbation; I13.0 Hypertensive heart and chronic kidney disease with heart failure and stage 1 through stage 4 chronic kidney disease, or unspecified chronic kidney disease; I50.32 Chronic diastolic (congestive) heart failure; I42.9 Cardiomyopathy, unspecified; I27.20 Pulmonary hypertension, unspecified; E11.22 Type 2 diabetes mellitus with diabetic chronic kidney disease; D53.9 Nutritional anemia, unspecified; N18.31 Chronic kidney disease, stage 3a; F32.A Depression, unspecified; I08.1 Rheumatic disorders of both mitral and tricuspid valves; E53.8 Deficiency of other specified B group vitamins; E78.5 Hyperlipidemia, unspecified; M19.072 Primary osteoarthritis, left ankle and foot; F17.210 Nicotine dependence, cigarettes, uncomplicated; M19.071 Primary osteoarthritis, right ankle and foot; G25.0 Essential tremor; I25.10 Atherosclerotic heart disease of native coronary artery without angina pectoris; K21.9 Gastro-esophageal reflux disease without esophagitis; J92.9 Pleural plaque without asbestos; R79.89 Other specified abnormal findings of blood chemistry; Z79.51 Long term (current) use of inhaled steroids; Z79.02 Long term (current) use of antithrombotics/antiplatelets; Z79.84 Long term (current) use of oral hypoglycemic drugs; Z95.5 Presence of coronary angioplasty implant and graft; Z79.82 Long term (current) use of aspirin; Z86.73 Personal history of transient ischemic attack (TIA), and cerebral infarction without residual deficits; Z88.8 Allergy status to other drugs, medicaments and biological substances; Z88.5 Allergy status to narcotic agent; Z88.6 Allergy status to analgesic agent; Z90.49 Acquired absence of other specified parts of digestive tract; Z68.21 Body mass index [BMI] 21.0-21.9, adult; R13.12 Dysphagia, oropharyngeal phase
CPT/HCPCS: 36415; 36600; 71045; 71275; 74230; 80048; 80053; 80061; 82607; 82746; 82803; 82962; 83036; 83735; 83880; 84100; 84443; 84484; 85025; 87449; 87631; 87633; 92526; 92610; 92611; 93005; 93306; 94002; 94640; 94660; 94668; 94760; 94762; 97116; 97162; 97530; 99285; 99406; Q9957; A4216; C8929; J1940

== ENCOUNTER 2025-01-04 12:07 | Inpatient (IN) | payer MEDICARE, SELFPAY ==
[2025-01-04] VITALS (21 sets, daily range): BP systolic 126–163; BP diastolic 52–107; PULSE 94–121; RESP 12–37; TEMP 36.7–37.1; O2SAT 85–106; BMI 23.6; BMI 22.5
--- NOTE | 2025-01-04 12:15 | EKG12_ITS ---
Test Reason : Blood Pressure : */* mmHG Vent. Rate : 109 BPM Atrial Rate : 109 BPM P-R Int : 146 ms QRS Dur : 98 ms QT Int : 320 ms P-R-T Axes : 60 61 268 degrees QTcB Int : 430 ms Sinus tachycardia Left ventricular hypertrophy with repolarization abnormality ( Sokolow-Pineda ) Abnormal ECG Confirmed by Олег Horne ([id number]), editor index KIRSTIN SOSA ([id number]) on 01/06/2025 6:11:09 AM Referred By: Confirmed By: Олег Horne
--- NOTE | 2025-01-04 12:19 | ED.VIS.DYS ---
HPI History of Present Illness Chief Complaint: Shortness of Breath Informant: patient and EMS Narrative Narrative: Brought in by EMS from home increasing dyspnea. History of COPD chronic 4 to 5 L oxygenation. Intermittent tobacco use. Coronary disease with 3 stents in the past on baby aspirin. Out of his nebulizer medicines were 2 days typically use it 4 times a day. Increasing dyspnea and wheeze status post DuoNeb by EMS. Denies cough denies chest pains. He is a diabetic he does not check his sugars. Denies fevers. Prior similar symptoms: Yes PFSH PFS Medical History LV dysfunction Chest pain Elevated troponin Essential hypertension Macrocytic anemia Respiratory insufficiency COPD exacerbation Aspiration pneumonia Coronary artery disease History of TIA (transient ischemic attack) COPD exacerbation Essential tremor Stage 3a chronic kidney disease (CKD) Diabetes mellitus, type 2 CAD (coronary artery disease) History of CVA (cerebrovascular accident) Tobacco use Hyperlipidemia COPD (chronic obstructive pulmonary disease) Hypertension Home Medications ?Medication ?Instructions ?Recorded ?Last Taken ?Type clopidogrel 75 mg tablet 75 mg PO DAILY Check with primary 03/24/16 Unknown History doctor metoprolol tartrate 50 mg tablet 50 mg PO BID Check with primary 03/24/16 01/04/25 History doctor amlodipine 5 mg tablet 5 mg PO DAILY Check with primary 12/11/22 12/10/22 History doctor sertraline 100 mg tablet 100 mg PO DAILY Check with primary 12/11/22 01/03/25 History doctor albuterol sulfate 2.5 mg/3 mL 2.5 mg (3 mL) inhalation Q2H PRN 12/17/22 12/10/22 Rx (0.083 %) solution for nebulization PRN shortness of breath or wheezing #1 mL ipratropium 0.5 mg-albuterol 3 mg 3 ml inhalation 4X/DAY #120 mL 12/17/22 Unknown Rx (2.5 mg base)/3 mL nebulization soln albuterol sulfate 90 mcg/actuation 2 puff inhalation Q4H PRN PRN 11/03/24 01/04/25 History aerosol inhaler wheezing atorvastatin 40 mg tablet 40 mg PO QHS cholesterol 11/03/24 01/03/25 History fluticasone fur. 100 mcg-umeclid 1 ea inhalation DAILY 11/03/24 01/03/25 History 62.5 mcg-vilant 25 mcg inhalat.powder (Trelegy Ellipta) fluticasone propionate 50 1 spray intranasal BID 11/03/24 Unknown History mcg/actuation nasal spray,suspension metformin 500 mg tablet 500 mg PO BID 11/03/24 01/04/25 History potassium chloride 20 mEq 20 meq PO DAILY #30 tabs 11/12/24 01/03/25 Rx tablet,extended release(part/cryst) (Klor-Con M) losartan 50 mg tablet 50 mg PO DAILY 01/04/25 Unknown History nitroglycerin 0.4 mg sublingual 0.4 mg sublingual PRN PRN angina 01/04/25 Unknown History tablet primidone 50 mg tablet 50 mg PO BID 01/04/25 Unknown History Allergy/AdvReac Type Severity Reaction Status Date / Time acetaminophen (From Tylenol) Allergy Unknown Verified 01/04/25 12:11 morphine Allergy Other Verified 01/04/25 12:11 oyster extract Allergy Unknown Verified 01/04/25 12:11 lisinopril AdvReac Other Verified 01/04/25 12:11 Family History Mother Cancer Brain cancer, unclear type. Son Cancer Youngest son, metastatic testicular cancer. Father Heart disease Hypertension CVA (cerebral vascular accident) Surgical History S/P appendectomy H/O right inguinal hernia repair S/P bilateral foot surgery S/P triple vessel bypass H/O heart artery stent Social History household members: spouse current occupational status: retired Smoking Status: Light Smoker (<10/day) how long ago did patient quit smoking: Smoked since 10/27/1967, up to 1 ppd, recent down to 1 pk/4-5 days. alcohol intake: current alcohol intake frequency: holidays/special occasions only substance use type: does not use ROS ROS ED Constitutional Constitutional ED: Denies chills, fever(s) or sweats ENT ENT ED: Denies sore throat Cardiovascular Cardiovascular: Denies chest pain, leg edema, palpitations or racing heartbeat Respiratory/Chest Respiratory/Chest: Reports dyspnea; Denies cough or dyspnea on exertion Gastrointestinal Gastrointestinal: Denies abdominal pain, diarrhea, nausea or vomiting Genitourinary Genitourinary ED: Denies dysuria, hematuria or urinary frequency Musculoskeletal Musculoskeletal: Denies back pain, extremity pain or neck pain Integumentary Denies rash or wounds Neurologic Neurologic: Denies headache(s), paresthesias or weakness EXAM Physical Exam Const Vital Signs: 01/04/25 12:08 01/04/25 12:10 01/04/25 12:11 Temperature 98.7 F 98.7 F Temperature Source Oral Oral Pulse Rate 108 H 107 H Respiratory Rate 37 H 32 H Respiratory Effort Non-Labored Short of Breath Respiratory Depth Shallow Respiratory Pattern Tachypnea Blood Pressure 147/73 H 146/85 H Blood Pressure Mean 97 105 Pulse Ox 92 106 Oxygen Delivery Method Nasal Cannula Nasal Cannula Nasal Cannula Oxygen Flow Rate (L/min) 5 5 5 01/04/25 12:24 01/04/25 12:58 01/04/25 13:00 Temperature Temperature Source Pulse Rate 103 H Respiratory Rate 32 H Respiratory Effort Respiratory Depth Respiratory Pattern Tachypnea Blood Pressure Blood Pressure Mean Pulse Ox 85 Oxygen Delivery Method Room Air Nasal Cannula Oxygen Flow Rate (L/min) 5 01/04/25 13:10 01/04/25 14:00 01/04/25 14:57 Temperature 98.8 F 98.8 F Temperature Source Oral Oral Pulse Rate 98 98 104 H Respiratory Rate 26 H 22 H 21 H Respiratory Effort Respiratory Depth Respiratory Pattern Blood Pressure 150/85 H 150/80 H 149/107 H Blood Pressure Mean 106 103 121 Pulse Ox 99 99 98 Oxygen Delivery Method Nasal Cannula Nasal Cannula Oxygen Flow Rate (L/min) 5 5 01/04/25 15:22 01/04/25 15:23 Temperature 98.8 F Temperature Source Oral Pulse Rate 107 H Respiratory Rate 36 H Respiratory Effort Respiratory Depth Respiratory Pattern Blood Pressure 156/75 H Blood Pressure Mean 102 Pulse Ox 93 87 Oxygen Delivery Method Nasal Cannula Nasal Cannula Oxygen Flow Rate (L/min) 5 5 Positive well nourished and well developed Constitutional Narrative: 5 L nasal cannula, speaking short sentences General Appearance ED: well developed and NAD HEENT Reports moist mucous membranes normocephalic and atraumatic Eyes General Eye ED: Yes normal appearance of both eyes Neck full ROM Chest Wall Chest: Negative for tenderness Resp Resp Narrative: Mild tachypnea, no distress with wheezing noted. Symmetric breath sounds. Effort and Inspection: symmetric chest movement and respiratory distress Cardio regular rhythm and no murmurs Peripheral Pulses: pulses 2+ throughout GI normal to inspection, nondistended, normoactive bowel sounds and non-tender Palpation: Negative for guarding or rebound tenderness present Extremity normal to inspection General Extremety ED: Negative for edema or tenderness General Extremity: Negative for edema Neuro oriented x3 and no sensory deficits noted Sensorium / Orientation: awake and alert Skin no rashes or lesions noted and no wounds MDM MDM MDM Narrative Medical decision making narrative: Interventions / MDM: Differential diagnosis: COPD exacerbation, hypoxia Diagnosis considered but do not suspect: N/A My EKG interpretation: Sinus rate of 109, no ST changes, QTc 430. Imaging independently reviewed and interpreted by myself: 1 view chest x-ray: Stable chronic findings for interstitial lung disease and fibrosis. Also read by radiology. External documents reviewed: N/A Test considered but not ordered:N/A ED course: 5 L nasal cannula speaking short sentences with slight tachypnea. Out of his nebulizer for 2 days he was given treatment by EMS. Will stack additional albuterol treatments will check chest x-ray labs EKG. Will obtain blood glucose fingerstick for plans of steroids with his wheezing. Will reevaluate. Clinically feeling better stable on 5 L oxygen. Labs white count 16.9 stable anemia hemoglobin 9.9. Creatinine 1.3. Attempted to ambulate however states with moving on the bed pulse ox dropped in the 80s. Improved with rest. Glucose 184 in the lab. Solu-Medrol 60 mg given IV doxycycline ordered. I discussed with hospitalist Dr. Govea for admission. Re-evaluation: stable Disposition discussed with patient/family/significant other: Patient Case discussed with consulting clinician: Hospitalist This note was generated with [employer] dictation software. It may contain incorrect words, spelling, and punctuation that were not noted in checking the note before signing. Lab Data Labs: Laboratory Results - last 24 hr 01/04/25 11:50 WBC 16.9 H RBC 2.96 L Hgb 9.9 L Hct 31.1 L MCV 105.1 H MCH 33.4 H MCHC 31.8 L RDW Std Deviation 53.4 H RDW Coeff of Christine 14.1 Plt Count 266 MPV 10.0 Immature Gran % (Auto) 0.500 Neut % (Auto) 83.8 H Lymph % (Auto) 8.4 L Greene % (Auto) 6.5 Eos % (Auto) 0.6 Baso % (Auto) 0.2 Absolute Neuts (auto) 14.2 H Absolute Lymphs (auto) 1.42 Nucleated RBC % 0 Sodium 142 Potassium 4.7 Chloride 95 L Carbon Dioxide 38.9 H Anion Gap 7 BUN 23 H Creatinine 1.30 H Estim Creat Clear Calc 57.19 Est GFR (MDRD) Non-Af 58 L BUN/Creatinine Ratio 17.9 Glucose 184 H Calcium 9.3 Radiography Diagnostic Testing: Clinical Impression(s) from Imaging Studies Chest X-Ray 01/04/25 13:00 IMPRESSION: Central vascularity appears mildly increased. There persistent interstitial and alveolar infiltrates throughout the lower lung kahn with blunting of the costophrenic angle on the right and left consistent with trace effusions, similar to the prior, consistent with interstitial lung disease and fibrosis. [facility] Discharge Plan Triage Chief Complaint: Shortness of Breath ED Provider: Yoav Alcaraz Dx/Rx/DC Orders Clinical Impression: COPD exacerbation, Hypoxia, Diabetes Primary Care Provider: Royce Carroll Disposition Disposition: Acute Care [facility]
[2025-01-04] MEDS: Albuterol 2.5 MG/3 ML VIAL.NEB. INHALATION ×3 (12:24→17:55)
[2025-01-04 12:47] LABS: Absolute Lymphocyte Count 1.42 X10^3/uL (0.83-4.51); Absolute Neutrophil Count 14.2 X10^3/uL (2.0-7.7); Basophil# 0.03 X10^3/uL; Basophil% 0.2 % (0-1); Eosinophils% 0.6 % (0-5); Hematocrit 31.1 % (40-54); Hemoglobin 9.9 g/dL (13.0-16.5); Lymphocyte # 1.42 X10^3/ul (0.83-4.51); Lymphocyte % 8.4 % (19-41); Mean Corp Hgb Conc 31.8 g/dL (32-36); Mean Corpuscular Hgb 33.4 pg (27.0-32.0); Mean Corpuscular Volume 105.1 fL (80-94); Monocyte% 6.5 % (0-10); NRBC Flagged by Analyzer 0 % (0-5); Neutrophil % 83.8 % (47-70); Platelet Count 266 K/mm3 (150-450); RBC Distribution Width CV 14.1 % (11.6-14.6); RBC Distribution Width SD 53.4 fl (35.1-43.9); Red Blood Count 2.96 M/mm3 (4.6-6.2); White Blood Count 16.9 K/mm3 (4.4-11.0)
--- NOTE | 2025-01-04 13:00 | RAD_ITS ---
PROCEDURE: CHEST 1 VIEW (PORTABLE) 01/04/2025 REASON FOR EXAM: SOB TECHNIQUE: Frontal view of the chest. COMPARISON: November 03, 2024 FINDINGS: Sternotomy wires are noted with vascular markers, unchanged. Heart size is upper normal. Central vascularity appears mildly increased. There persistent interstitial and alveolar infiltrates throughout the lower lung kahn with blunting of the costophrenic angle on the right and left consistent with trace effusions, similar to the prior, consistent with interstitial lung disease and fibrosis. There is no pneumothorax. There is no visible acute bony abnormality. Aortic calcifications are visible. RAD/Chest 1 View (Portable) IMPRESSION: Central vascularity appears mildly increased. There persistent interstitial and alveolar infiltrates throughout the lower soniya g kahn with blunting of the costophrenic angle on the right and left consistent with trace effusions, similar to the prior, co nsistent with interstitial lung disease and fibrosis. Reading Location: [facility]
[2025-01-04 13:14] LABS: Anion Gap 7 (5-15); BUN 23 mg/dL (4-19); BUN/Creat Ratio 17.9 RATIO (10-20); Calcium,Total 9.3 mg/dL (7.6-11.0); Carbon Dioxide 38.9 mmol/L (21.0-32.0); Chloride 95 mmol/L (98-108); EST Glomerular Filtration Rate 58 (>60); Estimated Creatinine Clearance 57.19 ml/min (50-250); Glucose 184 mg/dL (70-99); Potassium 4.7 mmol/L (3.3-5.1); Sodium Level 142 mmol/L (133-145)
[2025-01-04] MEDS: MethylPREDNISolone 125 MG/2 ML Vial 60 MG IV (13:27)
[2025-01-04] MEDS: Doxycycline 100 MG in 0.9% Normal Saline (250mL Bag) 250 ML 250 MG IV (14:30)
--- NOTE | 2025-01-04 15:52 | PCM.HP.STD ---
HPI - General General Date of Admission: 01/04/25 Date of Service: 01/04/25 Chief Complaint: Shortness of breath HPI Narrative KAM BROWN, is a 74 M who presented to [facility] ED on 01/04/2025 for worsening shortness of breath. Patient has history of COPD with chronic respiratory failure on 4 to 5 L at baseline. He was last hospitalized here in October for acute on chronic respiratory failure secondary to COPD exacerbation and aspiration pneumonia. He was being seen by home health care for a period of time after that hospitalization. He presented today with worsening shortness of breath. Noted that he ran out of his nebulizer treatments about 2 days ago. He has progressively become more short of breath and wheezy since then. Denies any other upper respiratory infectious symptoms recently. Denies any productive cough. On arrival to the ED he was satting in the mid 80s on 5 L nasal cannula and breathing about 30 times per minute. He was tachycardic and had a WBC count of 16 but was afebrile and normotensive. CBC and BMP were otherwise benign. Chest x-ray showed mildly increased central vascular congestion with persistent interstitial and alveolar infiltrates consistent with ILD and fibrosis. He was given a breathing treatment with mild improvement. Was then given a dose of IV steroids and hospitalist was contacted for admission. I saw the patient at bedside in the ED. Patient was fatigued appearing and had mild increased work of breathing noted, but he otherwise was laying back comfortably in bed and answering questions appropriately. He reported feeling tired but denied any current shortness of breath. Denied any chest pain or discomfort. Denied any fevers or chills. No other acute concerns at this time. [facility] Medical History LV dysfunction Chest pain Elevated troponin Essential hypertension Macrocytic anemia Respiratory insufficiency COPD exacerbation Aspiration pneumonia Coronary artery disease History of TIA (transient ischemic attack) COPD exacerbation Essential tremor Stage 3a chronic kidney disease (CKD) Diabetes mellitus, type 2 CAD (coronary artery disease) History of CVA (cerebrovascular accident) Tobacco use Hyperlipidemia COPD (chronic obstructive pulmonary disease) Hypertension Home Medications ?Medication ?Instructions ?Recorded ?Last Taken ?Type clopidogrel 75 mg tablet 75 mg PO DAILY Check with primary 03/24/16 Unknown History doctor metoprolol tartrate 50 mg tablet 50 mg PO BID Check with primary 03/24/16 01/04/25 History doctor amlodipine 5 mg tablet 5 mg PO DAILY Check with primary 12/11/22 12/10/22 History doctor sertraline 100 mg tablet 100 mg PO DAILY Check with primary 12/11/22 01/03/25 History doctor albuterol sulfate 2.5 mg/3 mL 2.5 mg (3 mL) inhalation Q2H PRN 12/17/22 12/10/22 Rx (0.083 %) solution for nebulization PRN shortness of breath or wheezing #1 mL ipratropium 0.5 mg-albuterol 3 mg 3 ml inhalation 4X/DAY #120 mL 12/17/22 Unknown Rx (2.5 mg base)/3 mL nebulization soln albuterol sulfate 90 mcg/actuation 2 puff inhalation Q4H PRN PRN 11/03/24 01/04/25 History aerosol inhaler wheezing atorvastatin 40 mg tablet 40 mg PO QHS cholesterol 11/03/24 01/03/25 History fluticasone fur. 100 mcg-umeclid 1 ea inhalation DAILY 11/03/24 01/03/25 History 62.5 mcg-vilant 25 mcg inhalat.powder (Trelegy Ellipta) fluticasone propionate 50 1 spray intranasal BID 11/03/24 Unknown History mcg/actuation nasal spray,suspension metformin 500 mg tablet 500 mg PO BID 11/03/24 01/04/25 History potassium chloride 20 mEq 20 meq PO DAILY #30 tabs 11/12/24 01/03/25 Rx tablet,extended release(part/cryst) (Klor-Con M) losartan 50 mg tablet 50 mg PO DAILY 01/04/25 Unknown History nitroglycerin 0.4 mg sublingual 0.4 mg sublingual PRN PRN angina 01/04/25 Unknown History tablet primidone 50 mg tablet 50 mg PO BID 01/04/25 Unknown History Allergy/AdvReac Type Severity Reaction Status Date / Time acetaminophen (From Tylenol) Allergy Unknown Verified 01/04/25 12:11 morphine Allergy Other Verified 01/04/25 12:11 oyster extract Allergy Unknown Verified 01/04/25 12:11 lisinopril AdvReac Other Verified 01/04/25 12:11 Family History Mother Cancer Brain cancer, unclear type. Son Cancer Youngest son, metastatic testicular cancer. Father Heart disease Hypertension CVA (cerebral vascular accident) Surgical History S/P appendectomy H/O right inguinal hernia repair S/P bilateral foot surgery S/P triple vessel bypass H/O heart artery stent Social History household members: spouse current occupational status: retired Smoking Status: Light Smoker (<10/day) how long ago did patient quit smoking: Smoked since 10/27/1967, up to 1 ppd, recent down to 1 pk/4-5 days. alcohol intake: current alcohol intake frequency: holidays/special occasions only substance use type: does not use ROS Constitutional Constitutional: Reports fatigue and weakness; Denies chills or fever(s) Eyes Eyes: Denies change in vision Cardiovascular Cardiovascular: Denies chest pain Respiratory/Chest Respiratory/Chest: Reports cough, dyspnea, shortness of breath with exertion and wheezing; Denies productive cough or shortness of breath at rest Gastrointestinal Gastrointestinal: Denies abdominal pain Musculoskeletal Musculoskeletal: Denies arthralgias or myalgias Neurologic Neurologic: Denies dizziness, focal weakness or headache(s) Vital Signs Vital Signs Vital Signs: 01/04/25 12:08 01/04/25 12:10 01/04/25 12:11 Temperature 98.7 F 98.7 F Temperature Source Oral Oral Pulse Rate 108 H 107 H Respiratory Rate 37 H 32 H Respiratory Effort Non-Labored Short of Breath Respiratory Depth Shallow Respiratory Pattern Tachypnea Blood Pressure 147/73 H 146/85 H Blood Pressure Mean 97 105 Pulse Ox 92 106 Oxygen Delivery Method Nasal Cannula Nasal Cannula Nasal Cannula Oxygen Flow Rate (L/min) 5 5 5 01/04/25 12:24 01/04/25 12:58 01/04/25 13:00 Temperature Temperature Source Pulse Rate 103 H Respiratory Rate 32 H Respiratory Effort Respiratory Depth Respiratory Pattern Tachypnea Blood Pressure Blood Pressure Mean Pulse Ox 85 Oxygen Delivery Method Room Air Nasal Cannula Oxygen Flow Rate (L/min) 5 01/04/25 13:10 01/04/25 14:00 01/04/25 14:57 Temperature 98.8 F 98.8 F Temperature Source Oral Oral Pulse Rate 98 98 104 H Respiratory Rate 26 H 22 H 21 H Respiratory Effort Respiratory Depth Respiratory Pattern Blood Pressure 150/85 H 150/80 H 149/107 H Blood Pressure Mean 106 103 121 Pulse Ox 99 99 98 Oxygen Delivery Method Nasal Cannula Nasal Cannula Oxygen Flow Rate (L/min) 5 5 01/04/25 15:22 01/04/25 15:23 Temperature 98.8 F Temperature Source Oral Pulse Rate 107 H Respiratory Rate 36 H Respiratory Effort Respiratory Depth Respiratory Pattern Blood Pressure 156/75 H Blood Pressure Mean 102 Pulse Ox 93 87 Oxygen Delivery Method Nasal Cannula Nasal Cannula Oxygen Flow Rate (L/min) 5 5 Weight Weight: 81.1 kg Body Mass Index (BMI) 23.6 Physical Exam Const alert, oriented x3, no apparent distress and average body habitus Constitutional Narrative: Elderly male, chronic ill-appearing, fatigued, mild increased work of breathing noted but otherwise laying back comfortably in bed and answering questions appropriately. General Appearance: cooperative and comfortable HEENT normocephalic, head/scalp atraumatic, hearing grossly normal bilaterally, nasal mucous membranes and turbinates normal and moist oral mucous membranes Eyes PERRL, EOMs intact bilaterally and conjunctivae normal Neck full ROM Chest inspection of chest normal Resp Resp Narrative: Mild increased work of breathing noted on 5 L nasal cannula, diminished breath sounds bilateral throughout with mild wheezing noted and basilar crackles noted. Cardio no murmurs and peripheral pulses 2+ throughout Cardio Narrative: Tachycardic, regular rhythm. GI normal to inspection, nondistended, normoactive bowel sounds, soft to palpation, non-tender and non-distended Back/Spine normal ROM Extremity normal to inspection and no pedal edema Skin no rashes or lesions noted Psych mental status grossly normal Psych Narrative: Flat affect. Results Lab / Micro Data 01/04/25 11:50 01/04/25 11:50 Labs: Laboratory Results - last 24 hr 01/04/25 11:50: WBC 16.9 H, RBC 2.96 L, Hgb 9.9 L, Hct 31.1 L, MCV 105.1 H, MCH 33.4 H, MCHC 31.8 L, RDW Std Deviation 53.4 H, RDW Coeff of Christine 14.1, Plt Count 266, MPV 10.0, Immature Gran % (Auto) 0.500, Neut % (Auto) 83.8 H, Lymph % (Auto) 8.4 L, Carroll % (Auto) 6.5, Eos % (Auto) 0.6, Baso % (Auto) 0.2, Absolute Neuts (auto) 14.2 H, Absolute Lymphs (auto) 1.42, Nucleated RBC % 0, Sodium 142, Potassium 4.7, Chloride 95 L, Carbon Dioxide 38.9 H, Anion Gap 7, BUN 23 H, Creatinine 1.30 H, Estim Creat Clear Calc 57.19, Est GFR (MDRD) Non-Af 58 L, BUN/Creatinine Ratio 17.9, Glucose 184 H, Calcium 9.3 Imaging Radiology Impression Chest X-Ray 01/04/25 13:00 IMPRESSION: Central vascularity appears mildly increased. There persistent interstitial and alveolar infiltrates throughout the lower lung kahn with blunting of the costophrenic angle on the right and left consistent with trace effusions, similar to the prior, consistent with interstitial lung disease and fibrosis. Reading Location: [facility] Assessment & Plan Assessment/Plan (1) COPD exacerbation: (2) Hypoxia: PLAN: Plan Patient is a 74-year-old male who presented [facility] ED on 01/04/2025 with worsening shortness of breath. 1. Acute hypoxia in setting of chronic hypoxic respiratory failure secondary to COPD exacerbation ? Admit under inpatient status to PCU. On home 4 to 5 L nasal cannula. Requiring up to 6 L nasal cannula on admit to maintain appropriate oxygen saturations. Suspect mild COPD exacerbation secondary to running out of home DuoNebs. May have mild pulmonary congestion contributing as well. Lower concern for infection but respiratory PCR panel sent. Chest x-ray showed mild increased central vascular congestion with chronic ILD changes noted, no other concerning findings. Will treat with IV steroids, scheduled DuoNebs and IV azithromycin for now. Wean supplemental oxygen as able. Can consider spot dose of IV diuretics as needed. Continue home inhalers. 2. Chronic HFrEF, history of CAD with CABG and stenting, hypertension, hyperlipidemia ? Most recent echo on 11/04 showed EF 45%, stage I diastolic dysfunction, mild to moderate global hypokinesis of left ventricle. Mild pulmonary vascular congestion noted on chest x-ray on admit. No peripheral edema noted. BNP ordered. Gave 1 dose of IV Lasix 20 mg in the ED but will not start any scheduled diuretics. Has been normotensive since arrival to the ED. Continue home Plavix, statin, and Lopressor. 3. CKD stage IIIa ? Creatinine 1.30 on admit, at baseline. Given dose of Lasix on admit as above, monitor a.m. BMP and urine output. 4. GERD ? Continue home PPI. 5. Anxiety/depression ? Stable. Continue home sertraline. 6. Mild acute on chronic debility ? PT/OT/case management consulted. Patient required home health care on previous discharge in October. Appreciate therapy recommendations. DVT prophylaxis: Lovenox CODE STATUS: Full code, verified Expect disposition: TBD Total clinical time spent by myself addressing the patient's medical issues, reviewing all the data, and collaborating with patient's care team: 75 minutes. Charges/Coding Visit Charges Inpatient E&M: 71148 Init Hosp L3
--- NOTE | 2025-01-04 16:15 | ED.RN ---
Cheryl [phone] called for update - informed pt is staying overnight, will call .
--- NOTE | 2025-01-04 18:03 | ED.RN ---
PT O2 SAT DECREASED TO 86 ON 5 LITERS HIGH FLOW. PT GUPPY BREATHING, USING ACCESSORY MUSCLES. PT O2 INCREASED TO 10 LITERS, RESPIRATORY AND DR VILCHIS MADE AWARE. BREATHING TREATMENT PROVIDED. PT 02 INCREASED. OXYGEN DECREASED TO 6
[2025-01-04 18:54] LABS: Pro- Brain NATRIURETIC PEPTIDE 7221 pg/mL (<=900)
[2025-01-04] MEDS: Ipratropium/Albuterol Sulfate 3 ML AMPUL.NEB INHALATION ×2 (19:30→23:52)
[2025-01-04] MEDS: Furosemide 20 MG/2 ML VIAL IV (21:53)
[2025-01-04] MEDS: Insulin Lispro 100 UNIT/ML INSULN.PEN SC (21:57)
[2025-01-04] MEDS: Fluticasone 0.05% 1 SPRAY NASAL.SRY NASAL (21:58)
[2025-01-04] MEDS: Atorvastatin Calcium 40 MG Tablet PO (21:59)
[2025-01-04] MEDS: Metoprolol Tartrate 50 MG Tablet PO (21:59)
[2025-01-04] MEDS: 0.9% Saline Lock 10 ML Syringe IV (22:09)
[2025-01-04] MEDS: Azithromycin 500 MG in 0.9% Normal Saline (250mL Bag) 250 ML 255 MG IV (22:46)
--- OUTSIDE RECORDS SUMMARY | 2025-01-04 23:36 | XMS RPT_ITS | CCD ---
Author Organization [facility] Care Team Providers Care Gas Adjuster Name Role Phone Royce Carroll MD Primary Care Provider [phone] JOCELYNE MCKNIGHT Referring Unavailable ROYCE CARROLL Primary Care Unavailable Royce Carroll MD Primary Care Provider [phone] TABATHA JARRETT Admitting Unavailable ROYCE CRAROLL Primary Care Unavailable TABATHA JARRETT Attending Unavailable ROYCE CARROLL Primary Care Unavailable TABATHA JARRETT Attending Unavailable TABATHA JARRETT Admitting Unavailable Royce Carroll MD Primary Care Provider [phone] Santo ORTHOTIC TECHNICIAN.WINERY WORKER, Gabby M Unavailable [phone] Dr. Royce Carroll MD Primary Care Provider Dr. Yoav Alcaraz DO Emergency Provider Rogers DO, Dr. Nielson Admit Provider Unavail able Dr. Kam Rogers DO Attending Provider Unav ailDr. Kam Elise DO Other Provider Unavail able Gita CRAWFORD, Dr. Rafaela Braon Attending Provider Dr. Anabell Hinkle MD Other Provider Dr. Олег Horne MD Other Provider Dr. Sam Carpenter MD Attending Provider Dr. Kam Rogers DO Referring Provider Stephon Hinkle MD, Dr. Hung Attending Provider Dr. Rafaela Pelayo MD Other Provider Dr. Олег Horne MD Attending Provider Jose G CRAWFORD, Dr. Fierro Other Provider Eloise CRAWFORD, Dr. Alonzo Other Provider Rene CRAWFORD, Dr. Renee Other Provider Dr. Kashif Rothman DO Other Provider Sha CRAWFORD, Dr. Kam Menon Other Provider [phone] Lavern CRAWFORD, Dr. Olivera Other Provider [phone] Silvia CRAWFORD, Dr. Stanton Other Provider Camilla CRAWFORD, Dr. Magaña Other Provider Jhon CRAWFORD, Dr. Tobar Other Provider Franck CRAWFORD, Dr. Mims Other Provider [phone] Azam CRAWFORD, Dr. Vega Other Provider [phone] Laurel CRAWFORD, Dr. Rojas Other Provider Mariano CRAWFORD, Dr. Mendieta Other Provider Unavailabl jeannine Sims MD, Dr. Mccrary Other Provider [phone] Pamela CRAWFORD, Dr. Craven Other Provider Danyel CRAWFORD, Dr. Anaya Other Provider [phone] Jaspreet CRAWFORD, Dr. Garcia Other Provider Brayden SORIANO, Dr. Abebe Other Provider Nohemi CRAWFORD, Dr. Serra Other Provider [phone] Jose Rafael CRAWFORD, Dr. Martin Other Provider [phone] Oniel SORIANO, Dr. Moeller Other Provider Kyler CRAWFORD, Dr. Black Other Provider Robin CRAWFORD, Dr. Corbin Other Provider Gennaro SORIANO, Dr. Rowland Attending Provider [phone] Gamal RN, Ashish Montesinos Unavailable Unavailable Rafaela Pelayo Attending Unavailable Kam Rogers Admitting Unavailable Kam Rogers Consulting Unavailable Annita, Royce Primary Care Unavailable Anabell Hinkle Consulting Unavailable Олег Horne Consulting Unavailable Kam Rogers Admitting Unavailable Олег Horne Attending Unavailable Annita, Royce Primary Care Unavailable Kam Rogers Consulting Unavailable Anabell Hinkle Consulting Unavailable Олег Horne Consulting Unavailable Rafaela Pelayo Consulting Unavailable Kashif Rothman Attending Unavailable Gita, Rafaela Loraine Referring Unavailable Vadim Araiza Consulting Unavailable Clinton Navas Consulting Unavailable Víctor López Consulting Unavailable Kashif Rothman Consulting Unavailable Kam Dalton Consulting Unavailable Jarod Puckett Consulting Unavailable Maximino Vega Consulting Unavailable Archana Sampson Consulting UnavailAmadou Osorio Consulting Unavailable Prasanna Juárez Consulting Unavailable Gary Nascimento Consulting Unavailable Crystal Barragan Consulting Unavailable Gayatri Quintana Consulting Unavailable Demetra Sims Consulting Unavailable Herber Santiago Consulting Unavailable Héctor Montaño Consulting Unavailable Jose Vogel Consulting Unavailable Andrae Owen Consulting Unavailable Ponce Song Consulting Unavailable Mario Mantilla Consulting Unavailable Sajan Engle Consulting Unavailable Wayne Chávez Consulting Unavailable Shaquille Kelly Consulting Unavailable Gita, Rafaela Loraine Attending Unavailable Sam Carpenter Attending Unavailable Carroll, Royce Primary Care Unavailable Kam Rogers Referring Unavailable Carroll, Royce Primary Care Unavailable Sam Carpenter Attending Unavailable Kam Rogers Attending Unavailable Anabell Hinkle Attending Unavailable Clark Rothman Referring Unavailable Clark Rothman Attending Unavailable Carroll, Royce Primary Care Unavailable CARROLL, AUSTIN Primary Care Unavailable GIANNI VELAZQUEZ Referring Unavailable CARROLL, [place] Primary Care Unavailable CARROLL, [place] Attending Unavailable ANNITA, [place] Primary Care Unavailable OLU MILLER Referring Unavailable OLU MILLER Attending Unavailable ANNITA, [place] Primary Care Unavailable GABBY CANNON Referring Unavailable CARROLL, [place] Primary Care Unavailable SELF Referring Unavailable GIANNI VELAZQUEZ Attending Unavailable ANNITA, [place] Primary Care Unavailable OLU MILLER Referring Unavailable OLU MILLER Attending Unavailable CARROLL, [place] Primary Care Unavailable KIRSTIN ZUÑIGA Referring Unavailable CARROLL, ROYCE Vaughn Primary Care Unavailable SASTRY, TIMOTHY Referring Unavailable BARBARATRY, TIMOTHY Attending Unavailable CARROLL, ROYCE Vaughn Primary Care Unavailable GABBY CANNON Referring Unavailable CARROLL, ROYCE Vaughn Primary Care Unavailable TESTRAKE, OLU Referring Unavailable TESTRAKE, OLU Attending Unavailable CARROLL, ROYCE Vaughn Primary Care Unavailable SELF Referring Unavailable CARROLL, [place] Attending Unavailable CARROLL, [place] Primary Care Unavailable SANTOGABBY SIDHU Attending Unavailable CARROLL, [place] Primary Care Unavailable TESTRAKE, OLU Referring Unavailable TESTRAKE, OLU Attending Unavailable CARROLL, [place] Primary Care Unavailable CARROLL, [place] Primary Care Unavailable CARROLL, [place] Attending Unavailable CARROLL, [place] Primary Care Unavailable CARROLL, [place] Referring Unavailable CARROLL, [place] Primary Care Unavailable CARROLL, [place] Attending Unavailable CARROLL, [place] Primary Care Unavailable CLARK ROTHMAN Referring Unavailable CARROLL, [place] Primary Care Unavailable CLARK ROTHMAN Referring Unavailable CARROLL, [place] Primary Care Unavailable CLARK ROTHMAN Referring Unavailable CLARK ROTHMAN Attending Unavailable CARROLL, [place] Primary Care Unavailable GABBY CANNON Referring Unavailable Gita CRAWFORD, Dr. Rafaela Baron Referring Provider Dr. Dalton Govea DO Admit Provider Dr. Dalton Govea DO Attending Provider Allergies Allergy Classification Reported Allergen(s) Allergy Type Date of Onset Reaction(s) Facility (20 sources) Acetaminophen; Translations: [ACETAMINOPHEN] Drug Allergy 6 Dystonia [facility] Work Phone: (20 sources) Lisinopril; Translations: [LISINOPRIL] Drug Allergy 0 Angioedema [facility] Work Phone: (20 sources) Morphine; Translations: [MORPHINE] Drug Allergy 8 Shortness of Breath [facility] Work Phone: Comment on above: FEELS LIKE HAVING HE ART ATTACK (20 sources) Oysters; Translations: [OYSTERS] Food Allergy 7 GI Upset [facility] Work Phone: (6 sources) oyster extract; Translations: [oyster extract] Allergy to substance 3 Unknown [facility] (1 source) Acetaminophen Drug Allergy 5 [facility] Rep[facility] (1 source) Lisinopril Drug Allergy 5 [facility] (1 source) Morphine Drug Allergy 5 [facility] Rep[facility] Medications Current Medications Medication Drug Class(es) Dates Sig (Normalized) Sig (Original) [id number] 200 actuat albuterol 0.09 mg/actuat metered dose inhaler (20 sources) beta2-Adrenergic Agonist Start: 11-03-2024 Albuterol Sulfate 90 mcg/actuation HFA aerosol inhaler Active 2 NMA INHALATION EVERY 4 HOURS NEEDED as needed for wheezing November 03, 2024 12:00am Start: 12-17-2022 take 2.5 mg by inhal ation every two hours as needed Albuterol Sulfate 2.5 mg /3 mL (0.083 %) solution for nebulization Active 2.5 mg INHALATION EVERY 2 HOURS NEEDED as needed for shortness of breath or wheezing 1 December 17, 2022 10:55am Use every two hours as needed for shortness of breath Start: 12-11-2022 End: 12-17-2022 Albuterol Sulfate 2.5 mg /3 mL (0.083 %) solution for nebulization Discontinued mg December 11, 2022 12:00am December 17, 2022 10:55am Start: 07-04-2022 End: 12-02-2023 take 2 puff(s) by inhalation every four hours as needed for wheezing albuterol HFA (VENTOLIN HFA) 90 mcg/actuation inhaler Indications: Stage 3 severe COPD by GOLD classification ([facility]) Inhale 2 Puffs as instructed every 4 hours as needed for wheezing/shortness of breath. 18 g 5 12/02/2023 Active Start: 07-03-2022 End: 12-30-2022 take 2.5 mg by inhalation every four hours as needed albuterol (PROVENTIL) 2.5 mg /3 mL (0.083 %) nebulizer solution Use 3 mL via nebulizer every 4 hours as needed for wheezing/shortness of breath. Use over 5-15minutes. 90 mL 1 10/21/2022 12/30/2022 Discontinued (Changing Therapy/Dosage Form) Start: 04-30-2022 take 2.5 mg by inhal ation every four hours as needed albuterol (PROVENTIL) 2.5 mg /3 mL (0.083 %) nebulizer solution Use 3 mL via nebulizer every 4 hours as needed for wheezing/shortness of breath. Use over 5-15minutes. 90 mL 1 04/30/2022 Active Start: 09-05-2021 End: 07-04-2022 take 2 puff(s) by mouth every four hours as needed for wheezing albuterol HFA (VENTOLIN HFA) 90 mcg/actuation inhaler Indications: Chronic bronchitis, unspecified chronic bronchitis type (HCC) INHALE 2 PUFFS BY MOUTH EVERY 4 HOURS NEEDED FOR WHEEZING/SHORTNESS OF BREATH 18 g 5 01/26/2022 07/04/2022 Discontinued Comment on above: INHALE 2 PUFFS BY MO UTH EVERY 4 HOURS NEEDED FOR WHEEZING/SHORTNESS OF BREATH Use 3 mL via nebuliz er every 4 hours as needed for wheezing/shortness of breath. Use over 5-15minutes. Inhale 2 Puffs as in structed every 4 hours as needed for wheezing/shortness of breath. albuterol 0.833 mg/ml / ipratropium bromide 0.167 mg/ml inhalation solution (20 sources) Anticholinergic, beta2-Adrenergic Agonist Start: 023 End: 025 take 1 mL by inhalation four times daily Ipratropium-Albute rol 0.5 mg-3 mg(2.5 mg base)/3 mL Solution For Nebulization Active 3 mL INHALATION 4 TIMES DAILY December 17, 2022 12:00am Start: 12-17-2022 take 1 mL by inhalat ion four times daily Ipratropium-Albuterol Active 3 ML INHALATION 4 TIMES DAILY December 16, 2022 11:00pm Comment on above: Inhale 3 mL as instr ucted four times daily. amLODIPine 5 mg oral tablet (20 sources) Dihydropyridine Calcium Channel Kaushik Start: End: take 1 tablet by mouth once daily Amlodipine 5 mg tablet Active 5 mg PO DAILY December 11, 2022 12:00am Comment on above: Take 1 tablet by dorcas th once daily. aspirin 81 mg delayed release oral tablet (20 sources) Platelet Aggregation Inhibitor, Nonsteroidal Anti-inflammatory Drug Start: 016 take 1 tablet by mouth once daily aspirin, enteric coated (ADULT LOW DOSE ASPIRIN) 81 mg EC tablet Indications: Atherosclerosis of coronary artery of [place] heart without angina pectoris, unspecified vessel or lesion type Take 1 tablet by mouth once daily. 0 11/23/2015 Active Comment on above: Take 1 tablet by dorcas th once daily. atorvastatin 40 mg oral tablet (20 sources) HMG-CoA Reductase Inhibitor Start: 025 take 1 tablet by mouth at bedtime Atorvastatin 40 mg tablet Active 40 mg PO AT BEDTIME November 03, 2024 12:00am Start: 05-25-2024 End: 09-27-2024 take 1 tablet by mouth once daily at bedtime atorvastatin (LIPITOR) 40 mg tablet Indications: Hyperlipidemia, unspecified hyperlipidemia type Take 1 tablet by mouth daily at bedtime. 90 tablet 1 09/27/2024 Active Start: 11-28-2023 take 1 tablet by dorcas th once daily at bedtime atorvastatin (LIPITOR) 40 mg tablet Indications: Hyperlipidemia, unspecified hyperlipidemia type Take 1 tablet by mouth daily at bedtime. 90 tablet 1 11/28/2023 Active Start: 10-05-2021 End: 11-26-2023 take 1 tablet by mouth once daily at bedtime atorvastatin (LIPITOR) 40 mg tablet Indications: Hyperlipidemia, unspecified hyperlipidemia type Take 1 tablet by mouth daily at bedtime. 90 tablet 1 01/15/2023 11/26/2023 Discontinued Start: 03-24-2016 End: 11-03-2024 take 1 tablet by mouth at bedtime Atorvastatin 80 MG tablet Discontinued 80 mg PO AT BEDTIME March 24, 2016 12:00am November 03, 2024 6:49pm Comment on above: Take 1 tablet by dorcas th daily at bedtime. Blood-Glucose Meter monitoring kit (20 sources) Start: 05-23-2023 Blood-Glucose Meter monitoring kit Indications: Type 2 diabetes mellitus with diabetic mononeuropathy, without long-term current use of insulin (HCC) Glucose Meter of Choice - Kit - Dx: Other DM Code E11.49 1 Each 05/23/2023 Active Start: 05-23-2023 Blood-Glucose Meter monitoring kit Indications: Type 2 diabetes mellitus with diabetic mononeuropathy, without long-term current use of insulin (HCC) Glucose Meter of Choice - Kit - Dx: Other DM Code E11.49 1 Each 0 05/23/2023 Active Start: 01-15-2023 Blood-Glucose Meter monitoring kit Indications: Type 2 diabetes mellitus with diabetic mononeuropathy, without long-term current use of insulin (HCC) Glucose Meter of Choice - Kit - Dx: Other DM Code E11.49 1 Each 0 01/15/2023 Active Start: 05-19-2020 End: 07-04-2022 Blood-Glucose Meter monitori ng kit Indications: Well controlled type 2 diabetes mellitus with neurological manifestations (HCC) Glucose Meter of Choice - Kit - Dx: Other DM Code E11.49 1 Each 0 05/19/2020 07/04/2022 Discontinued Start: 05-19-2020 Blood-Glucose Meter monitoring kit Indications: Well controlled type 2 diabetes mellitus with neurological manifestations (HCC) Glucose Meter of Choice - Kit - Dx: Other DM Code E11.49 1 Each 0 05/19/2020 Active Comment on above: Glucose Meter of Cho ice - Kit - Dx: Other DM Code E11.49 Calcium Carbonate (4 sources) calcium carbonat e (TUMS ULTRA ORAL) Take by mouth as needed. Pt told [facility] nurse he is taking. Active clopidogrel 75 mg oral tablet (20 sources) P2Y12 Platelet Inhibitor Start: 03-24-20 16 End: 09-28-19 25 take 1 tablet by mouth once daily Clopidogrel 75 MG tablet Active 75 mg PO DAILY March 24, 2016 12:00am Comment on above: Take 1 tablet by dorcas th once daily. TAKE 1 TABLET BY DORCAS TH EVERY DAY diphenhydrAMINE (4 sources) Histamine-1 Receptor Antagonist take 1 capsule by mouth once daily at bedtime diphenhydramine HCl (SLEEP AID, DIPHENHYDRAMINE, ORAL) Take 1 capsule by mouth daily at bedtime. Pt told [facility] nurse he is taking. Active doxycycline hyclate 100 mg oral tablet (9 sources) Tetracycline-class Drug Start: 11 End: 07-03-20 take 1 tablet by mouth twice daily doxycycline (VIBRA-TABS) 100 mg tablet Indications: Nasal sore Take 1 tablet by mouth two times a day for 10 days. 20 tablet 06/23/2024 07/03/2024 Active Start: 01-19-2024 End: 01-26-2024 take 1 tablet by mouth twice daily doxycycline monohydrate 100 mg tablet Take 1 tablet by mouth two times a day for 7 days. 14 tablet 0 01/19/2024 01/26/2024 Active Start: 09-19-2023 End: 09-24-2023 take 1 tablet by mouth twice daily doxycycline (VIBRA-TABS) 100 mg tablet Indications: Chronic obstructive pulmonary disease with (acute) exacerbation (HCC) Take 1 tablet by mouth two times a day for 5 days. 10 tablet 09/19/2023 09/24/2023 Comment on above: Take 1 tablet by dorcas th two times a day for 5 days. fluticasone propionate 0.05 mg/actuat metered dose nasal spray (20 sources) Corticosteroid Start: 11-03-2024 Fluticasone Propionate 50 mcg/actuation spray,suspension Active 1 NMA INTRANASAL TWICE A DAY November 03, 2024 12:00am Start: 08-12-2016 End: 09-27-2024 take 1 spray(s) nasal route twice daily fluticasone (FLONASE) 50 mcg/actuation nasal spray Indications: Rhinitis, unspecified type Use 1 [place] in each nostril two times a day. 1 Each 3 09/27/2024 Active Comment on above: Use 1 [place] in each nostril twice daily. Use 1 [place] in each nostril two times a day. Fluticasone-Umeclidin- Vilanter (20 sources) Anticholinergic, Corticosteroid, beta2-Adrenergic Agonist Start: 11-03-2024 Kynvgyaxbsp-Lqrbhjhnk-Kf lanter (Trelegy Ellipta) 100-62.5-25 mcg blister with device Active 1 NMA INHALATION DAILY November 03, 2024 12:00am Start: 11-03-2024 Fluticasone-Um eclidin-Vilanter [Fluticasone Fur. 100 Mcg-Umeclid 62.5 Mcg-Vilant 25 Mcg Inhalat.Powder] (Fluticasone Fur. 100 Mcg-Umeclid 62.5 Mcg-Vilant ) 100-62.5-25 mcg blister with device Active 1 NMA INHALATION DAILY November 03, 2024 12:00am Start: 05-25-2024 End: 07-01-2024 take 1 puff(s) by inhalation once daily yprrygysaej-yboaxglza-tlujfhft (TRELEGY ELLIPTA) 100-62.5-25 mcg inhalation powder Inhale 1 Puff as instructed once daily. 60 Each 07/01/2024 Active Start: 02-25-2023 End: 09-22-2023 take 1 puff(s) by inhalation once daily TRELEGY ELLIPTA 100-62.5-25 mcg inhalati on powder INHALE 1 PUFF INSTRUCTED ONCE DAILY. 60 Each 09/22/2023 Active Comment on above: Inhale 1 Puff as ins tructed once daily. guaifenesin/dextrom ethorphan (MUCINEX DM ORAL) (4 sources) guaifenesin/dext rometh orphan (MUCINEX DM ORAL) Take by mouth as needed. Pt told [facility] nurse he is taking. Active ibuprofen 200 mg oral capsule (4 sources) Nonsteroidal Anti-inflammatory Drug Ibuprofen 200 mg cap Take by mouth as needed. Pt told [facility] nurse he is taking. Active iv contrast (will be provided with radiology test) (3 sources) Start: End: iv contrast (will be provided with radiology test) CT Chest W -Inject, intravenously, once for 1 dose.No IV access, insert saline lock prior to the beginning of sedation, infusion, injection of imaging exam. Discontinue saline lock post exam. If Pt. has a central line or IVAD, may access for administration according to line specific nursing protocol. Once exam is complete flush line and de-access according to line specific nursing protocol in the CT contrast administration guidelines link. 1 Each 09/13/2024 09/14/2024 Active Loperamide (4 sources) Opioid Agonist loperamide HCl (IMODIUM ORAL) Take by mouth as needed. Pt told [facility] nurse he is taking. Active losartan potassium 50 mg oral tablet (5 sources) Angiotensin 2 Receptor Kaushik Start: take 1 tablet by mouth once daily Losartan 50 mg tablet Active 50 mg PO DAILY January 04, 2025 12:00am Start: 11-15-2024 take 1 tablet by dorcas th once daily losartan (COZAAR) 50 mg tablet Indications: Chronic diastolic CHF (congestive heart failure) (HCC) , Essential hypertension Take 1 tablet by mouth once daily. 30 tablet 1 11/15/2024 Active melatonin 10 mg oral tablet (4 sources) take 1 tablet by mouth once daily at bedtime melatonin 10 mg tab Take 1 tablet by mouth daily at bedtime. Pt told [facility] nurse he is taking. Active metFORMIN hydrochloride 500 mg oral tablet (20 sources) Biguanide Start: 11-03-2024 take 1 tablet by mouth twice daily Metformin 500 mg tablet Active 500 mg PO TWICE A DAY November 03, 2024 12:00am Start: 07-25-2023 End: 09-27-2024 take 1 tablet by mouth twice daily at mealtime metFORMIN (GLUCOPHAGE) 500 mg tablet Indications: Type 2 diabetes mellitus with diabetic mononeuropathy, without long-term current use of insulin ([facility]) Take 1 tablet by mouth two times a day with meals. 180 tablet 1 09/27/2024 Active Start: 01-15-2023 take 1 tablet by dorcas th twice daily at mealtime metFORMIN (GLUCOPHAGE) 500 mg tablet Indications: Type 2 diabetes mellitus with diabetic mononeuropathy, without long-term current use of insulin ([facility]) Take 1 tablet by mouth twice daily with meals. 180 tablet 1 01/15/2023 Active Start: 03-24-2016 End: 11-03-2024 take 1 tablet by mouth twice daily at mealtime Metformin 1,000 MG tablet Discontinued 1000 mg PO TWICE DAILY WITH MEALS March 24, 2016 12:00am November 03, 2024 6:49pm Comment on above: Take 1 tablet by dorcas th twice daily. Take 1 tablet by dorcas th twice daily with meals. Take 1 tablet by dorcas th two times a day with meals. metoprolol tartrate 50 mg oral tablet (20 sources) beta-Adrenergic Kaushik Start: 03-24-2016 End: 09-27-2024 take 1 tablet by mouth twice daily Metoprolol Tartrate 50 MG tablet Active 50 mg PO TWICE A DAY March 24, 2016 12:00am Comment on above: Take 1 tablet by dorcas th twice daily. Take 1 tablet by dorcas th two times a day. multivit with minerals/lutein (MULTI-ISABELLE 50 AND OVER ORAL) (20 sources) take 1 tablet by mouth once daily multivit with minerals/lutein (MULTI-ISABELLE 50 AND OVER ORAL) Take 1 tablet by mouth once daily. Active take 1 tablet by mouth once renea y multivit with minerals/lutein (MULTI-ISABELLE 50 AND OVER ORAL) Take 1 tablet by mouth once daily. 0 Active Comment on above: Take 1 tablet by dorcas once daily. mupirocin 20 mg/ml topical cream (1 source) RNA Synthetase Inhibitor Antibacterial Start: 01-19-2024 End: 01-29-2024 mupirocin (BACTROBAN) 2 % cream Apply 1 application to affected area three times a day for 10 days. Location: left nares 30 g 1 01/19/2024 01/29/2024 Active nitroglycerin 0.4 mg sublingual tablet (20 sources) Nitrate Vasodilator Start: 01-04-2025 Nitroglycerin 0.4 mg tablet, sublingual Active 0.4 mg SL NEEDED as needed for angina January 04, 2025 12:00am Start: 02-17-2021 End: 11-15-2024 nitroglycerin sublingual (NI TROQUICK) 0.4 mg SL tablet Indications: Atherosclerosis of coronary artery of [place] heart without angina pectoris, unspecified vessel or lesion type Dissolve 1 tablet under the tongue as needed for chest pain. If no pain relief call 911. 25 tablet 1 11/15/2024 Active Comment on above: Dissolve 1 tablet un kings the tongue every 5 minutes as needed. phenylephrine hydrochloride 25 mg/ml ophthalmic solution (5 sources) alpha-1 Adrenergic Agonist Start: 10-21-2024 End: 10-22-2024 PHENYLephrine 2.5 % 1 Drop (AK-DILATE, SIDNEY-SYNEPHRINE) Start: 10-21-2024 End: 10-22-2024 1 Drop, BOTH EYES, DIRECT ED, Starting on Fri10/21/24 at 1400, Until Fri10/22/24 at 0159, Administer for dilation PROTECT FROM LIGHT, OPHT CLINIC MED ORDERS Start: 10-09-2023 End: 10-09-2023 PHENYLephrine 2.5 % 1 Drop ( AK-DILATE, SIDNEY-SYNEPHRINE) Start: 02-19-2023 End: 02-20-2023 PHENYLephrine 2.5 % 1 Drop ( AK-DILATE, SIDNEY-SYNEPHRINE) Start: 02-03-2023 End: 02-04-2023 PHENYLephrine 2.5 % 1 Drop ( AK-DILATE, SIDNEY-SYNEPHRINE) microencapsulated potassium chloride 20 meq extended release oral tablet (7 sources) Start: 11-12-2024 Potassium Chlo ride (Klor-Con M20) 20 mEq tablet,ER particles/crystals Active 20 meq PO DAILY November 12, 2024 12:00am predniSONE 20 mg oral tablet (20 sources) Start: 11-12-2024 take 1 tablet by mouth once daily predniSONE (DELTASONE) 20 mg tablet Take 20 mg by mouth once daily. 11/12/2024 Active Start: 11-12-2024 End: 01-04-2025 take 2 tablets by mouth at breakfast Prednisone 20 mg Tablet Discontinued 40 mg PO WITH BREAKFAST 8 November 12, 2024 12:00am January 04, 2025 12:45pm Start: 09-19-2023 End: 03-22-2024 take 4 tablets by mouth once daily, then take 3 tablets by mouth once daily, then take 2 tablets by mouth once daily, then take 1 tablet by mouth once daily predniSONE (DELTASONE) 10 mg tablet Indications: Chronic obstructive pulmonary disease with (acute) exacerbation (HCC) TAKE BY MOUTH 4 TABLETS DAILY FOR 2 DAYS, THEN 3 TABLETS DAILY FOR 2 DAYS, THEN 2 TABLETS DAILY FOR 2 DAYS, THEN 1 TABLET DAILY FOR 2 DAYS. 20 tablet 09/19/2023 12/18/2023 Discontinued (Course of therapy completed) Start: 12-17-2022 End: 11-03-2024 Prednisone 10 mg tablet Discontinued 10 mg PO TWICE A DAY December 17, 2022 12:00am November 03, 2024 8:39pm two twice a day for two days, then three daily for 2 days, then two daily for 5 days, then stop Comment on above: TAKE BY MOUTH 4 TABL ETS DAILY FOR 2 DAYS, THEN 3 TABLETS DAILY FOR 2 DAYS, THEN 2 TABLETS DAILY FOR 2 DAYS, THEN 1 TABLET DAILY FOR 2 DAYS. primidone 50 mg oral tablet (20 sources) Anti-epileptic Agent Start: 01-04-2025 take 1 tablet by mouth twice daily Primidone 50 mg tablet Active 50 mg PO TWICE A DAY January 04, 2025 12:00am Start: 10-04-2021 End: 11-03-2024 take 1 tablet by mouth twice daily Primidone 50 mg tablet Discontinued 50 mg PO TWICE A DAY December 11, 2022 12:00am November 03, 2024 8:39pm Comment on above: Take 1 tablet by dorcas th twice daily. TAKE 1 TABLET BY DORCAS TWICE A DAY proparacaine hydrochloride 5 mg/ml ophthalmic solution (5 sources) Local Anesthetic Start: 10-21-2024 End: 10-22-2024 proparacaine 0.5 % 1 Drop (ALCAINE) Start: 10-21-2024 End: 10-22-2024 1 Drop, BOTH EYES, DIRECT ED, Starting on Fri10/21/24 at 1400, Until Fri10/22/24 at 0159, Administer for pneumo tonometry, tonopen tonometry, or pachymetry. In the event of a proparacaine shortage, administer tetracaine 0.5% ophthalmic drops 1 drop in both eyes as directed for pneumo tonometry, tonopen tonometry, or pachymetry, OPHT CLINIC MED ORDERS Start: 10-09-2023 End: 10-09-2023 proparacaine 0.5 % 1 Drop (A LCAINE) Start: 02-19-2023 End: 02-20-2023 proparacaine 0.5 % 1 Drop (A LCAINE) Start: 02-03-2023 End: 02-04-2023 proparacaine 0.5 % 1 Drop (A LCAINE) saw/vit E/sod miguel/lyc/beta/p yg (PROSTATE HEALTH ORAL) (20 sources) take 3 tablets by mouth once daily saw/vit E/sod miguel/lyc/beta/pyg (PROSTATE HEALTH ORAL) Take 3 tablets by mouth once daily. Active take 3 tablets by mouth once flavio ly saw/vit E/sod miguel/lyc/beta/pyg (PROSTATE HEALTH ORAL) Take 3 tablets by mouth once daily. 0 Active Comment on above: Take 3 tablets by mo [facility] once daily. sertraline 100 mg oral tablet (20 sources) Serotonin Reuptake Inhibitor Start: 11-13-2020 End: 09-27-2024 take 1 tablet by mouth once daily Sertraline 100 mg tablet Active 100 mg PO DAILY December 11, 2022 12:00am Start: 03-24-2016 End: 03-26-2016 take 1 tablet by mouth once daily Sertraline 50 MG tablet Discontinued 50 mg PO DAILY March 24, 2016 12:00am March 26, 2016 1:28pm Comment on above: Take 1 tablet by [facility] once daily. tropicamide 10 mg/ml ophthalmic solution (5 sources) Anticholinergic Start: 10-21-2024 End: 10-22-2024 tropicamide 1 % 1 Drop (MYDRIACYL) Start: 10-21-2024 End: 10-22-2024 1 Drop, BOTH EYES, DIRECT ED, Starting on Fri10/21/24 at 1400, Until Fri10/22/24 at 0159, Administer for dilation, OPHT CLINIC MED ORDERS Start: 10-09-2023 End: 10-09-2023 tropicamide 1 % 1 Drop (MYDR IACYL) Start: 02-19-2023 End: 02-20-2023 tropicamide 1 % 1 Drop (MYDR IACYL) Start: 02-03-2023 End: 02-04-2023 tropicamide 1 % 1 Drop (MYDR IACYL) Completed/Discontinued Medications Medication Drug Class(es) Dates Sig (Normalized) Sig (Original) amoxicillin 875 mg / clavulanate 125 mg oral tablet (3 sources) Penicillin-class Antibacterial Start: 11-12-2024 End: 01-04-2025 Amoxicillin-Pot Clavulanate 875-125 mg tablet Discontinued 1 {tbl} PO TWICE A DAY November 12, 2024 12:00am January 04, 2025 12:43pm diclofenac sodium 1 mg/ml ophthalmic solution (3 sources) Nonsteroidal Anti-inflammatory Drug Start: 06-30-2023 End: 09-19-2023 diclofenac (VOLTAREN) 0.1 % ophthalmic solution Use 1 Drop in the left eye four times daily. Start drops 2 (two) days prior to your scheduled surgery date 4 four times a day . Use one drop the morning of surgery. Restart following surgery as per instructions given. 5 mL 1 06/30/2023 09/19/2023 Discontinued Comment on above: Use 1 Drop in the le ft eye four times daily. Start drops 2 (two) days prior to your scheduled surgery date 4 four times a day . Use one drop the morning of surgery. Restart following surgery as per instructions given. furosemide 40 mg oral tablet (20 sources) Loop Diuretic Start: 11-12-2024 End: 01-04-2025 take 1 tablet by mouth once daily Furosemide 40 mg tablet Discontinued 40 mg PO DAILY November 12, 2024 12:00am January 04, 2025 12:44pm Start: 12-28-2022 End: 01-15-2023 take 1 tablet by mouth once daily furosemide (LASIX) 20 mg tablet Indications: Chronic diastolic CHF (congestive heart failure) (HCC) Take 1 tablet by mouth once daily. 90 tablet 0 01/15/2023 Active Comment on above: Take 1 tablet by dorcas th once daily for 5 days. Take 1 tablet by dorcas th once daily. ketorolac tromethamine 5 mg/ml ophthalmic solution (12 sources) Nonsteroidal Anti-inflammatory Drug, Cyclooxygenase Inhibitor Start: 02-20-20 End: 09-19-19 take 1 drop(s) into the eye(s) four times daily keTORolac (ACULAR) 0.5 % ophthalmic solution Use 1 Drop in the right eye four times daily. Please start 2 days prior to your surgical date 5 mL 0 02/19/2023 09/19/2023 Discontinued Start: 02-19-2023 take 1 drop(s) into the eye(s) four times daily keTORolac (ACULAR) 0.5 % ophthalmic solution Use 1 Drop in the right eye four times daily. Please start 2 days prior to your surgical date 5 mL 0 02/19/2023 Active Comment on above: Use 1 Drop in the ri ght eye four times daily. Please start 2 days prior to your surgical date levoFLOXacin 500 mg oral tablet (7 sources) Quinolone Antimicrobial Start: 12-18-19 End: 11-04-19 take 1 tablet by mouth once daily Levofloxacin 500 mg tablet Discontinued 500 mg PO DAILY December 17, 2022 12:00am November 03, 2024 8:41pm start on 12/17/22 Comment on above: Take by mouth. moxifloxacin 5 mg/ml ophthalmic solution (13 sources) Quinolone Antimicrobial Start: 02-20-20 End: 02-23-20 24 take 1 drop(s) into the eye(s) four times daily moxifloxacin (VIGAMOX) 0.5 % ophthalmic solution Use 1 Drop in the left eye four times daily. Please start 2 days prior to your surgical date 3 mL 0 06/30/2023 09/19/2023 Discontinued Start: 02-19-2023 take 1 drop(s) into the eye(s) four times daily moxifloxacin (VIGAMOX) 0.5 % ophthalmic solution Use 1 Drop in the right eye four times daily. Please start 2 days prior to your surgical date 3 mL 0 02/19/2023 Active Comment on above: Use 1 Drop in the ri ght eye four times daily. Please start 2 days prior to your surgical date Use 1 Drop in the le ft eye four times daily. Please start 2 days prior to your surgical date perflutren lipid microspheres 1.3 mL in NaCl (PF) 0.9% 10 mL injection (DEFINITY) (17 sources) Start: 10-04-2021 End: 01-14-2022 perflutren lipid microspheres 1.3 mL in NaCl (PF) 0.9% 10 mL injection (DEFINITY) Start: 10-04-2021 End: 01-03-2023 perflutren lipid microsphere s 1.3 mL in NaCl (PF) 0.9% 10 mL injection (DEFINITY) prednisoLONE acetate 10 mg/ml ophthalmic suspension (13 sources) Corticosteroid Start: 02-19-2023 End: 09-19-2023 prednisoLONE acetate (PRED FORTE) 1 % ophthalmic suspension Use 1 Drop in the left eye four times daily. Please start 2 days prior to your surgical date 5 mL 1 06/30/2023 09/19/2023 Discontinued Start: 02-19-2023 prednisoLONE a cetate (PRED FORTE) 1 % ophthalmic suspension Use 1 Drop in the right eye four times daily. Please start 2 days prior to your surgical date 5 mL 1 02/19/2023 Active Comment on above: Use 1 Drop in the ri ght eye four times daily. Please start 2 days prior to your surgical date Use 1 Drop in the le ft eye four times daily. Please start 2 days prior to your surgical date 125 ml sodium chloride 9 mg/ml prefilled syringe (17 sources) Start: 10-05-19 End: 01-04-20 sodium chloride 0.9 % (flush) 10 mL (BD POSIFLUSH) tiotropium 0.018 mg inhalation powder (20 sources) Anticholinergic Start: 08-08-19 End: 07-04-20 take 1 capsule by inhalation once daily tiotropium (SPIRIVA WITH HANDIHALER) 18 mcg inhalation capsule Indications: Chronic bronchitis, unspecified chronic bronchitis type (HCC) Inhale 1 capsule as instructed once daily. Use with handihaler. 90 capsule 3 01/14/2022 07/04/2022 Discontinued (Discontinued by Patient) Comment on above: Inhale 1 capsule as instructed once daily. Use with handihaler. Turmeric extract (20 sources) End: 07-04-20 take 1 tablet by mouth twice daily TURMERIC ORAL Take 1 tablet by mouth twice daily. 0 07/04/2022 Discontinued take 1 tablet by mouth twice flavio ly TURMERIC ORAL Take 1 tablet by mouth twice daily. 0 Active Comment on above: Take 1 tablet by d[facility] twice daily. Problems Active Problems Problem Classification Problem Date Documented Date Episodic/Chronic Acquired foot deformities (3 sources) Hammer toe; Translations: [Other hammer toe(s) (acquired), unspecified foot] Onset: 12-03-2024 09-03-2024 Chronic Acute cerebrovascular disease (5 sources) Ischemic stroke; Translations: [Cerebral infarction, unspecified] 03-25-2016 Chronic Anxiety disorders (20 sources) Anxiety disorder; Translations: [Anxiety disorder, unspecified] Onset: 01-31-2009 11-22-2014 Chronic Aspiration pneumonitis; food/vomitus (8 sources) Aspiration pneumonia; Translations: [Pneumonitis due to inhalation of food and vomit] Onset: 11-17-2024 11-03-2024 Episodic Blindness and vision defects (2 sources) Disorder of refraction; Translations: [Unspecified disorder of refraction] 02-03-2023 Episodic Cardiac dysrhythmias (20 sources) Supraventricular tachycardia; Translations: [Supraventricular tachycardia] Onset: 03-22-2024 Chronic Chronic kidney disease (20 sources) Chronic kidney disease stage 3A ; Translations: [Stage 3a chronic kidney disease] Onset: 04-17-2018 04-25-2021 Chronic Chronic kidney disease (1 source) Chronic kidney disease; Translations: [Stage 3a chronic kidney disease (HCC)] Onset: 04-25-2021 Chronic obstructive pulmonary disease and bronchiectasis (20 sources) Chronic bronchitis; Translations: [Unspecified chronic bronchitis] Onset: 06-07-2008 11-22-2013 Chronic Complication of device; implant or graft (1 source) Atherosclerosis of coronary artery bypass graft(s) without angina pectoris; Translations: [Atherosclerosis of coronary artery bypass graft(s) without angina pectoris] Onset: 11-29-2024 Chronic Congestive heart failure; nonhypertensive (20 sources) Chronic diastolic heart failure; Translations: [Chronic diastolic (congestive) heart failure] Onset: 01-15-2023 Chronic Coronary atherosclerosis and other heart disease (20 sources) Coronary atherosclerosis; Translations: [Atherosclerotic heart disease of [place] coronary artery without angina pectoris] 05-24-2015 Chronic Deficiency and other anemia (1 source) Anemia; Translations: [Anemia, unspecified] 06-23-2024 Episodic Deficiency and other anemia (6 sources) Macrocytic anemia; Translations: [Nutritional anemia, unspecified] 11-03-2024 Episodic Deficiency and other anemia (1 source) Nutritional anemia, unspecified; Translations: [Nutritional anemia, unspecified] Onset: 11-29-2024 Episodic Deficiency and other anemia (1 source) Anemia, unspecified; Translations: [Anemia, unspecified type] Onset: 09-27-2024 Episodic Diabetes mellitus with complications (20 sources) Type 2 diabetes mellitus; Translations: [Type 2 diabetes mellitus with other diabetic neurological complication] Onset: 10-21-2005 Resolved: 11-22-2013 05-24-2015 Chronic Diabetes mellitus without complication (11 sources) Diabetes mellitus type 2 without retinopathy; Translations: [Type 2 diabetes mellitus without complications] Onset: 11-29-2024 02-03-2023 Chronic Disorders of lipid metabolism (20 sources) Hyperlipidemia; Translations: [Hyperlipidemia, unspecified] 05-24-2015 Chronic Essential hypertension (20 sources) Essential hypertension; Translations: [Essential (primary) hypertension] Onset: 11-06-2005 05-24-2015 Chronic Immunizations and screening for infectious disease (3 sources) Needs influenza immunization; Translations: [Encounter for immunization] Episodic Late effects of cerebrovascular disease (20 sources) Late effects of cerebrovascular disease; Translations: [Unspecified sequelae of unspecified cerebrovascular disease] Onset: 03-17-2007 11-22-2013 Chronic Lymphadenitis (3 sources) Localized enlarged lymph nodes; Translations: [Localized enlarged lymph nodes] 09-13-2024 Episodic Mycoses (20 sources) Onychomycosis; Translations: [Tinea unguium] Onset: 03-23-2009 Resolved: 09-29-2017 11-04-2023 Episodic Nonspecific chest pain (7 sources) Chest pain; Translations: [Chest pain, unspecified] Onset: 11-29-2024 11-04-2024 Episodic Occlusion or stenosis of precerebral arteries (20 sources) Left carotid artery stenosis; Translations: [Occlusion and stenosis of left carotid artery] Onset: 04-03-2016 Chronic Osteoarthritis (20 sources) Degenerative joint disease involving multiple joints; Translations: [Polyosteoarthritis, unspecified] Onset: 10-16-2005 10-16-2005 Chronic Other and ill-defined heart disease (6 sources) Left ventricular cardiac dysfunction; Translations: [Heart disease, unspecified] 11-08-2024 Chronic Other and ill-defined heart disease (1 source) Heart disease, unspecified; Translations: [Heart disease, unspecified] Onset: 11-29-2024 Chronic Other circulatory disease (2 sources) Personal history of transient ischemic attack (TIA), and cerebral infarction without residual deficits; Translations: [History of stroke] Onset: 04-14-2023 Episodic Other circulatory disease (8 sources) History of transient ischemic attack; Translations: [Personal history of transient ischemic attack (TIA), and cerebral infarction without residual deficits] 03-25-2016 Episodic Other connective tissue disease (3 sources) Weakness of face muscles; Translations: [Facial weakness] Episodic Other connective tissue disease (1 source) Weakness of left arm; Translations: [Other symptoms and signs involving the musculoskeletal system] Episodic Other connective tissue disease (1 source) Pain in bilateral legs; Translations: [Pain in right leg] Episodic Other connective tissue disease (3 sources) Other symptoms and signs involving the musculoskeletal system; Translations: [Other musculoskeletal symptoms referable to limbs] Onset: 04-14-2023 02-04-2023 Episodic Other connective tissue disease (1 source) Facial weakness; Translations: [Facial weakness] Onset: 04-14-2023 Episodic Other connective tissue disease (1 source) Falls; Translations: [Repeated falls] 09-19-2023 Episodic Other connective tissue disease (5 sources) Pain of toe of left foot; Translations: [Pain in left toe(s)] 11-04-2023 Episodic Other connective tissue disease (5 sources) Pain of toe of right foot; Translations: [Pain in right toe(s)] 11-04-2023 Episodic Other connective tissue disease (1 source) Bilateral muscle cramp of upper limbs; Translations: [Cramp and spasm] 12-18-2023 Episodic Other connective tissue disease (1 source) Cramp; Translations: [Cramp and spasm] 03-22-2024 Episodic Other connective tissue disease (1 source) Pain in left toe(s); Translations: [Pain in toe of left foot] Onset: 12-03-2024 Episodic Other connective tissue disease (1 source) Pain in right toe(s); Translations: [Pain in toe of right foot] Onset: 12-03-2024 Episodic Other hereditary and degenerative nervous system conditions (20 sources) Essential tremor; Translations: [Essential tremor] Onset: 11-23-2015 11-23-2015 Chronic Other injuries and conditions due to external causes (1 source) Pulmonary aspiration of fluid; Translations: [Other foreign object in respiratory tract, part unspecified causing other injury, subsequent encounter] 12-02-2023 Episodic Other lower respiratory disease (3 sources) Multiple nodules of lung; Translations: [Other nonspecific abnormal finding of lung field] Episodic Other lower respiratory disease (3 sources) Dyspnea; Translations: [Shortness of breath] Episodic Other lower respiratory disease (2 sources) Cough; Translations: [Acute cough] 03-22-2024 Episodic Other lower respiratory disease (6 sources) Respiratory insufficiency; Translations: [Other abnormalities of breathing] 11-03-2024 Episodic Other lower respiratory disease (3 sources) Hypoxia; Translations: [Hypoxemia] 11-03-2024 Episodic Other lower respiratory disease (1 source) Other abnormalities of breathing; Translations: [Other abnormalities of breathing] Onset: 11-29-2024 Episodic Other screening for suspected conditions (not mental disorders or infectious disease) (13 sources) Patient encounter status; Translations: [Encounter for screening for malignant neoplasm of respiratory organs] Onset: 11-29-2024 Episodic Other skin disorders (2 sources) Keratosis; Translations: [Epidermal thickening, unspecified] 09-03-2024 Episodic Other skin disorders (1 source) Epidermal thickening, unspecified; Translations: [Hyperkeratosis] Onset: 12-03-2024 Episodic Other upper respiratory disease (20 sources) Rhinitis; Translations: [Chronic rhinitis] Onset: 11-20-2012 11-20-2012 Chronic Other upper respiratory disease (1 source) Abscess of nose; Translations: [Abscess, furuncle and carbuncle of nose] 01-19-2024 Episodic Other upper respiratory disease (1 source) Lesion of nose; Translations: [Other specified disorders of nose and nasal sinuses] 06-23-2024 Episodic Residual codes; unclassified (3 sources) Tobacco user; Translations: [Tobacco use] Episodic Residual codes; unclassified (2 sources) Bilateral lower limb edema; Translations: [Localized edema] Episodic Respiratory failure; insufficiency; arrest (adult) (20 sources) [id number] respiratory failure; Translations: [Acute and chronic respiratory failure with hypoxia] Onset: 01-15-2023 Resolved: 09-27-2024 Chronic Screening and history of mental health and substance abuse codes (3 sources) Ex-cigarette smoker; Translations: [Personal history of nicotine dependence] 02-25-2023 Episodic Spondylosis; intervertebral disc disorders; other back problems (20 sources) Degeneration of thoracolumbar intervertebral disc; Translations: [Other intervertebral disc degeneration, thoracolumbar region] Onset: 11-06-2005 Resolved: 01-15-2023 09-30-2018 Chronic Substance-related disorders (20 sources) Tobacco user; Translations: [Nicotine dependence, unspecified, uncomplicated] Onset: 05-25-2012 Resolved: 05-23-2023 05-25-2012 Chronic Superficial injury; contusion (2 sources) Contusion of right great toe; Translations: [Contusion of right great toe without damage to nail, initial encounter] 11-04-2023 Episodic Transient cerebral ischemia (5 sources) Cerebral ischemia; Translations: [Transient cerebral ischemic attack, unspecified] Chronic Unclassified (5 sources) tPA adm status 24 hr [employer] 03-25-2016 Unclassified (1 source) Acute cough; Translations: [Acute cough] Onset: 03-22-2024 Past or Other Problems Problem Classification Problem Date Documented Date Episodic/Chronic Acquired foot deformities (20 sources) Acquired deformity of toe; Translations: [Other deformities of toe(s) (acquired), unspecified foot] Onset: 03-23-2009 Resolved: 09-29-2017 09-29-2017 Episodic Cataract (20 sources) Nuclear sclerosis; Translations: [Age-related nuclear cataract, bilateral] Onset: 05-06-2023 Resolved: 07-08-2023 02-03-2023 Chronic Esophageal disorders (20 sources) Gastroesophageal reflux disease; Translations: [Gastro-esophageal reflux disease without esophagitis] Resolved: 09-29-2017 09-29-2017 Chronic Other circulatory disease (20 sources) History of cerebrovascular accident; Translations: [Personal history of transient ischemic attack (TIA), and cerebral infarction without residual deficits] Onset: 11-13-2021 Resolved: 01-15-2023 Episodic Other connective tissue disease (20 sources) Adhesive capsulitis of shoulder; Translations: [Adhesive capsulitis of unspecified shoulder] Onset: 10-19-2010 Resolved: 11-20-2011 11-20-2011 Episodic Other connective tissue disease (1 source) Cramp and spasm; Translations: [Muscle cramps] Onset: 03-22-2024 Episodic Other injuries and conditions due to external causes (20 sources) At risk for falls ; Translations: [History of falling] Onset: 06-29-2021 06-29-2021 Episodic Other injuries and conditions due to external causes (1 source) Other foreign object in respiratory tract, part unspecified causing other injury, subsequent encounter; Translations: [Other foreign object in respiratory tract, part unspecified causing other injury, subsequent encounter] Onset: 02-19-2024 Episodic Other lower respiratory disease (20 sources) Nodule of lung; Translations: [Solitary pulmonary nodule] Onset: 10-17-2021 10-17-2021 Episodic Other lower respiratory disease (2 sources) Shortness of breath; Translations: [Shortness of breath] Onset: 03-22-2024 Episodic Other nervous system disorders (20 sources) Abnormal gait; Translations: [Unspecified abnormalities of gait and mobility] Onset: 11-13-2021 Episodic Other nutritional; endocrine; and metabolic disorders (20 sources) Metabolic syndrome X; Translations: [Dysmetabolic syndrome X] Resolved: 11-07-2005 11-07-2005 Chronic Peripheral and visceral atherosclerosis (20 sources) Peripheral vascular disease; Translations: [Peripheral vascular disease, unspecified] Onset: 11-06-2005 Resolved: 11-13-2020 11-13-2020 Chronic Unclassified (20 sources) Nodule of lung; Translations: [Lung nodule < 6cm on CT] Onset: 10-17-2021 Resolved: 07-04-2022 10-17-2021 Results Test Name Value Interpretation Reference Range Facility Absolute lymphocyte countOrd ered By: Yoav Alcaraz on 01-04-2025 Lymphocytes Auto (Unsp spec) [#/Vol] 1.42 10*3/uL 0.83-4.51 [facility] Absolute neutrophil countOrd ered By: Yoav Alcaraz on 01-04-2025 Neutrophils (Bld) [#/Vol] 14.2 10*3/uL High 2.0-7.7 [facility] Anion gap in Serum or Plasma Ordered By: Yoav Alcaraz on 01-04-2025 Anion gap [Moles/Vol] 7 mmol/L 5-15 [facility] Automated lymphocyte count a s percentage of total leukocytesOrdered By: Yoav Alcaraz on 01-04-2025 Lymphocytes/100 WBC Auto (Unsp spec) 8.4 % Low 19-41 [facility] BUN/creatinine ratioOrdered By: Yoav Alcaraz on 01-04-2025 Urea nitrogen/Creatinine [Mass ratio] 17.9 mg/mg 10-20 [facility] Basophil percentageOrdered B y: Yoav Alcaraz on 01-04-2025 Basophils/100 WBC (Bld) 0.2 % 0-1 [facility] Carbon dioxide, total [Moles /volume] in Central venous bloodOrdered By: Yoav Alcaraz on 01-04-2025 CO2 [Moles/Vol] 38.9 mmol/L High 21.0-32.0 [facility] Chloride assayOrdered By: Bryson Alcaraz on 01-04-2025 Chloride [Moles/Vol] 95 mmol/L Low 98-108 [facility] Eosinophil percentageOrdered By: Yoav Alcaraz on 01-04-2025 Eosinophils/100 WBC (Bld) 0.6 % 0-5 [facility] Erythrocyte distribution wid th ratioOrdered By: Yoav Alcaraz on 01-04-2025 Erythrocyte distribution width (RBC) [Ratio] 14.1 % 11.6-14.6 [facility] Erythrocyte distribution wid th standard deviationOrdered By: Yoav Alcaraz on 01-04-2025 Erythrocyte distribution width (RBC) [Ratio] 53.4 fl High 35.1-43.9 [facility] Glomerular filtration rate ( GFR) estimation/1.73 sq m using serum, plasma, or whole bOrdered By: Yoav Alcaraz on 01-04-2025 GFR/1.73 sq M.predicted among non-blacks MDRD (S/P/Bld) [Vol rate/Area] 58 mL/min/{1.73_m2} Low >60 [facility] Comment on above: mL/min/1.73m2 CKD-EP I Creatinine Equation (2020) Hematocrit Auto (Bld) [Volum e fraction]Ordered By: Yoav Alcaraz on 01-04-2025 Hematocrit (Bld) [Volume fraction] 31.1 % Low 40-54 [facility] Hemoglobin measurementOrdere d By: Yoav Alcaraz on 01-04-2025 Hemoglobin (Bld) [Mass/Vol] 9.9 g/dL Low 13.0-16.5 [facility] Immature granulocytes/100 WB C Auto (Bld)Ordered By: Yoav Alcaraz on 01-04-2025 Immature granulocytes/100 WBC (Bld) 0.500 % 0.0-0.9 [facility] Comment on above: IG% - Immature Granu locytes (promyelocytes, myelocytes and metamyelocytes) > 1% indicates that a LEFT SHIFT is Present. MCV (mean corpuscular volume ) determinationOrdered By: Yoav Alcaraz on 01-04-2025 MCV (RBC) [Entitic vol] 105.1 fL High 80-94 [facility] Mean corpuscular hemoglobin (MCH) determinationOrdered By: Yoav Alcaraz 01-04-2025 MCH (RBC) [Entitic mass] 33.4 pg High 27.0-32.0 [facility] Mean corpuscular hemoglobin concentration (MCHC) determinationOrdered By: Yoav Alcaraz 01-04-2025 MCHC (RBC) [Mass/Vol] 31.8 g/dL Low 32-36 [facility] Mean platelet volume determi nationOrdered By: Yoav Alcaraz 01-04-2025 Platelet mean volume (Bld) [Entitic vol] 10.0 fL 6.2-12.0 [facility] Monocyte percentageOrdered B y: Yoav Lissa on 01-04-2025 Monocytes/100 WBC (Bld) 6.5 % 0-10 [facility] Neutrophil percentageOrdered By: Yoav Le on 01-04-2025 Neutrophils/100 WBC (Bld) 83.8 % High 47-70 [facility] Nucleated red blood cell per centageOrdered By: Yoav Le on 01-04-2025 Nucleated RBC/100 WBC (Bld) [Ratio] 0 % 0-5 [facility] Platelet countOrdered By: Bryson luz Lissa on 01-04-2025 Platelets (Bld) [#/Vol] 266 10*3/uL 150-450 [facility] Potassium measurement (mass/ volume)Ordered By: Yoav Le on 01-04-2025 Potassium (Unsp spec) [Mass/Vol] 4.7 mmol/L 3.3-5.1 [facility] RBC Auto (Bld) [#/Vol]Ordere d By: Yoav Le on 01-04-2025 RBC (Bld) [#/Vol] 2.96 10*6/uL Low 4.6-6.2 [facility] Serum creatinine measurement (mass/volume)Ordered By: Yoav Alcaraz on 01-04-2025 Creatinine [Mass/Vol] 1.30 mg/dL High 0.70-1.20 [facility] Serum glucose measurement (m ass/volume)Ordered By: Yoav Alcaraz on 01-04-2025 Glucose [Mass/Vol] 184 mg/dL High 70-99 [facility] Serum or plasma calcium mallorie urement (mass/volume)Ordered By: Yoav Alcaraz on 01-04-2025 Calcium [Mass/Vol] 9.3 mg/dL 7.6-11.0 [facility] Serum or plasma urea nitroge n measurement (mass/volume)Ordered By: Yoav Alcaraz on 01-04-2025 Urea nitrogen [Mass/Vol] 23 mg/dL High 4-19 [facility] Sodium levelOrdered By: Yoav Alcaraz on 01-04-2025 Sodium [Moles/Vol] 142 mmol/L 133-145 [facility] White blood cell (WBC) count Ordered By: Yoav Alcaraz on 01-04-2025 WBC (Bld) [#/Vol] 16.9 10*3/uL High 4.4-11.0 [facility] CNOVon 12-03-2024 CNOV Office Visit (PODIWS) KAM GREENBERG ([id number]) 1950 M Date Time Provider Department 12/03/24 2:40 PM OLU MILLER PODIWS During your visit today, we recorded the following information about you: Olu Miller 12/05/2024 9:28 AM Signed Last saw pcp: 11/17/24 Subjective: Patient presents to clinic c/o painful toenails. They state that the nails are especially painful with shoe gear and pressure. Patient states that nails 1-5 b/l are painful. No other pedal complaints at this time. Patient states no change in medications or medical history since last visit. Objective: Patient presents to clinic ambulating in [facility] Vasc: DP and PT pulses are nonpalpable bilateral. CFT is less than 5 seconds bilateral. Skin temperature is warm to cool proximal to distal bilateral. There is mild edema or varicosities noted. Neuro: Protective sensation is absent to the foot and toes when tested with the 5.07 SWM bilateral. Vibratory sensation is absent at the hallux IPJ bilateral. The hallux is downgoing bilateral. Derm: Nails 1-5 b/l are painful, discolored-yellow, thick, crumbly, dystrophic and with subungal debris. Skin is of normal turgor, texture and hair growth is absent bilateral. There are no hyperkeratosis, ulcerations, scars, verruca or other lesions noted. Ortho: Muscle strength is 5/5 for all pedal groups tested. Ankle joint DF is decreased with the knee extended with no pain or crepitus noted. 1st MPJ ROM is decreased bilateral. Hammertoe is present to b/l 2nd toe Assessment: (B35.1) Onychomycosis (primary encounter diagnosis) (M79.675) Pain in toe of left foot (M79.674) Pain in toe of right foot (E11.42) Diabetic polyneuropathy associated with type 2 diabetes mellitus (HCC) (L85.9) Hyperkeratosis (M20.40) Hammer toe, unspecified laterality Plan: Patient was seen and evaluated. Nails 1-5 bilateral were debrided in length and thickness. Patient was instructed on the continued importance of diabetic foot care along with proper diet and keeping their blood sugar under control to prevent complications. I stressed the importance of avoiding barefoot walking, wearing good shoes and inspection of feet. Discussed hammertoe of b/l 2nd toe. Continue with hammertoe crest pad. Patient is to RTC in 3-4 months. ALLIE Grier Matthew 12/03/2024 2:40 PM Signed Diabetes Foot Care Instructions When you have diabetes, proper foot care is very important. Poor foot care may lead to amputation of a foot or leg. As a person with diabetes, you are more vulnerable to foot problems, because diabetes can damage your nerves and reduce blood flow to your feet. Here are some diabetes foot care tips to follow: Wash and Dry Your Feet Daily Use mild soaps Use warm water Pat your skin dry; do not rub. Thoroughly dry your feet. After washing, use lotion on your feet to prevent cracking. Do not put lotion between your toes. Examine Your Feet Each Day Check the tops and bottoms of your feet. Have someone else look at your feet if you cannot see them. Check for dry, cracked skin. Look for blisters, cuts, scratches, or other sores. Check for redness, increased warmth, or tenderness when touching any area of your feet. Check for ingrown toenails, corns, and calluses. If you get a blister or sore from your shoes, do not pop it. Apply a bandage and wear a different pair of shoes. Take Care of Your Toenails Cut toenails after bathing, when they are soft. Cut toenails straight across and smooth with a nail file. Avoid cutting into the corners of toes. Do not cut cuticles. If you have neuropathy (or decreased sensation in your feet) a non destructive testing inspector should always cut your toenails. Be Careful When Exercising Walk and exercise in comfortable shoes. Do not exercise when you have open sores on your feet. Protect Your Feet With Shoes and Socks Never go barefoot. Always protect your feet by wearing shoes or hard-soled slippers or footwear. Avoid shoes with high heels and pointed toes. Avoid shoes that expose your toes or heels (such as open-toed shoes or sandals). These types of shoes increase your risk for injury and potential infections. Try on new footwear with the type of socks you usually wear. Do not wear new shoes for more than an hour at a time. Change your socks daily. Look and feel inside your shoes before putting them on to make sure there are no foreign objects or rough areas. Avoid tight socks. Wear natural-fiber socks (cotton, wool, or a cotton-wool blend). Wear special shoes if your health care provider recommends them. Wear shoes/boots that will protect your feet from various weather conditions (cold, moisture, etc.). Make sure your shoes fit properly. If you have neuropathy (nerve damage), you may not notice that your shoes are too tight. Perform the footwear t (more content not included)... Normal [facility] Basic Metabolic Profile (BMP )on 11-19-2024 BUN Normal - [facility] Comment on above: Result Comment: Canc elled via OM: Order cancelled - Patient discharged Performed By: #### L 100.0100, L500.2500 ####[facility] [address] [place], [address] BUN/CRE Normal 10-20 [facility] Comment on above: Result Comment: Canc elled via OM: Order cancelled - Patient discharged Performed By: #### L 100.0100, L500.2500 ####[facility] [address] [place], [place], [id number] Calcium Normal 7.6-11.0 [facility] Comment on above: Result Comment: Canc elled via OM: Order cancelled - Patient discharged Performed By: #### L 100.0100, L500.2500 ####[facility] [address] [place], [address] CL Normal 98-108 [facility] Comment on above: Result Comment: Canc elled via OM: Order cancelled - Patient discharged Performed By: #### L 100.0100, L500.2500 ####[facility] [address] [place], [address] CO2 Normal 21.0-32.0 [facility] Comment on above: Result Comment: Canc elled via OM: Order cancelled - Patient discharged Performed By: #### L 100.0100, L500.2500 ####[facility] [address] [place], [address] CREAT,SERUM Normal 0.70-1.20 [facility] Comment on above: Result Comment: Canc elled via OM: Order cancelled - Patient discharged Performed By: #### L 100.0100, L500.2500 ####[facility] [address] [place], [address] eGFR Normal >60 [facility] Comment on above: Result Comment: Canc elled via OM: Order cancelled - Patient discharged Performed By: #### L 100.0100, L500.2500 ####[facility] [address] [place], [address] GAP Normal 5-15 [facility] Comment on above: Result Comment: Canc elled via OM: Order cancelled - Patient discharged Performed By: #### L 100.0100, L500.2500 ####[facility] [address] [place], [address] GLU Normal 70-99 [facility] Comment on above: Result Comment: Canc elled via OM: Order cancelled - Patient discharged Performed By: #### L 100.0100, L500.2500 ####[facility] [address] [place], [address] Potassium Normal 3.3-5.1 [facility] Comment on above: Result Comment: Canc elled via OM: Order cancelled - Patient discharged Performed By: #### L 100.0100, L500.2500 ####[facility] [address] [place], [address] Basic Metabolic Profile (BMP) Normal 133-145 [facility] Comment on above: Result Comment: Canc elled via OM: Order cancelled - Patient discharged Performed By: #### L 100.0100, L500.2500 ####[facility] [address] [place], [address] CBC W/Diff, Automatedon 04-2 Absolute Neut Normal 2.0-7.7 [facility] Comment on above: Result Comment: Canc elled via OM: Order cancelled - Patient discharged Performed By: #### L 100.0100, L500.2500 ####[facility] [address] [place], [address] HCT Normal 40-54 [facility] Comment on above: Result Comment: Canc elled via OM: Order cancelled - Patient discharged Performed By: #### L 100.0100, L500.2500 ####[facility] [address] [place], [address] HGB Normal 13.0-16.5 [facility] Comment on above: Result Comment: Canc elled via OM: Order cancelled - Patient discharged Performed By: #### L 100.0100, L500.2500 ####[facility] [address] [place], [address] MCH Normal 27.0-32.0 [facility] Comment on above: Result Comment: Canc elled via OM: Order cancelled - Patient discharged Performed By: #### L 100.0100, L500.2500 ####[facility] [address] [place], [address] MCHC Normal 32-36 [facility] Comment on above: Result Comment: Canc elled via OM: Order cancelled - Patient discharged Performed By: #### L 100.0100, L500.2500 ####[facility] [address] [place], [address] MCV Normal 80-94 [facility] Comment on above: Result Comment: Canc elled via OM: Order cancelled - Patient discharged Performed By: #### L 100.0100, L500.2500 ####[facility] [address] [place], [address] NEUT% Normal 47-70 [facility] Comment on above: Result Comment: Canc elled via OM: Order cancelled - Patient discharged Performed By: #### L 100.0100, L500.2500 ####[facility] [address] [place], [address] PLT Normal 150-450 [facility] Comment on above: Result Comment: Canc elled via OM: Order cancelled - Patient discharged Performed By: #### L 100.0100, L500.2500 ####[facility] [address] [place], [address] RBC Normal 4.6-6.2 [facility] Comment on above: Result Comment: Canc elled via OM: Order cancelled - Patient discharged Performed By: #### L 100.0100, L500.2500 ####[facility] [address] [place], [address] RDW CV Normal 11.6-14.6 [facility] Comment on above: Result Comment: Canc elled via OM: Order cancelled - Patient discharged Performed By: #### L 100.0100, L500.2500 ####[facility] [address] [place], [address] RDW SD Normal 35.1-43.9 [facility] Comment on above: Result Comment: Canc elled via OM: Order cancelled - Patient discharged Performed By: #### L 100.0100, L500.2500 ####[facility] [address] [place], [address] WBC Normal 4.4-11.0 [facility] Comment on above: Result Comment: Canc elled via OM: Order cancelled - Patient discharged Performed By: #### L 100.0100, L500.2500 ####[facility] [address] [place], [address] Basic Metabolic Profile (BMP )on 11-18-2024 BUN Normal 4-19 [facility] Comment on above: Result Comment: Canc elled via OM: Order cancelled - Patient discharged Performed By: #### L 500.2500, L100.0100 ####[facility] [address] [place], [address] BUN/CRE Normal 10-20 [facility] Comment on above: Result Comment: Canc elled via OM: Order cancelled - Patient discharged Performed By: #### L 500.2500, L100.0100 ####[facility] [address] [place], [address] Calcium Normal 7.6-11.0 [facility] Comment on above: Result Comment: Canc elled via OM: Order cancelled - Patient discharged Performed By: #### L 500.2500, L100.0100 ####[facility] [address] [place], [address] CL Normal 98-108 [facility] Comment on above: Result Comment: Canc elled via OM: Order cancelled - Patient discharged Performed By: #### L 500.2500, L100.0100 ####[facility] [address] [place], [address] CO2 Normal 21.0-32.0 [facility] Comment on above: Result Comment: Canc elled via OM: Order cancelled - Patient discharged Performed By: #### L 500.2500, L100.0100 ####[facility] [address] [place], [address] CREAT,SERUM Normal 0.70-1.20 [facility] Comment on above: Result Comment: Canc elled via OM: Order cancelled - Patient discharged Performed By: #### L 500.2500, L100.0100 ####[facility] [address] [place], [address] eGFR Normal >60 [facility] Comment on above: Result Comment: Canc elled via OM: Order cancelled - Patient discharged Performed By: #### L 500.2500, L100.0100 ####[facility] [address] [place], [address] GAP Normal 5-15 [facility] Comment on above: Result Comment: Canc elled via OM: Order cancelled - Patient discharged Performed By: #### L 500.2500, L100.0100 ####[facility] [address] [place], [address] GLU Normal 70-99 [facility] Comment on above: Result Comment: Canc elled via OM: Order cancelled - Patient discharged Performed By: #### L 500.2500, L100.0100 ####[facility] [address] [place], [address] Potassium Normal 3.3-5.1 [facility] Comment on above: Result Comment: Canc elled via OM: Order cancelled - Patient discharged Performed By: #### L 500.2500, L100.0100 ####[facility] [address] [place], [address] Basic Metabolic Profile (BMP) Normal 133-145 [facility] Comment on above: Result Comment: Canc elled via OM: Order cancelled - Patient discharged Performed By: #### L 500.2500, L100.0100 ####[facility] [address] [place], [address] CBC W/Diff, Automatedon 04-2 Absolute Neut Normal 2.0-7.7 [facility] Comment on above: Result Comment: Canc elled via OM: Order cancelled - Patient discharged Performed By: #### L 500.2500, L100.0100 ####[facility] [address] [place], [address] HCT Normal 40-54 [facility] Comment on above: Result Comment: Canc elled via OM: Order cancelled - Patient discharged Performed By: #### L 500.2500, L100.0100 ####[facility] [address] [place], [address] HGB Normal 13.0-16.5 [facility] Comment on above: Result Comment: Canc elled via OM: Order cancelled - Patient discharged Performed By: #### L 500.2500, L100.0100 ####[facility] [address] [place], [address] MCH Normal 27.0-32.0 [facility] Comment on above: Result Comment: Canc elled via OM: Order cancelled - Patient discharged Performed By: #### L 500.2500, L100.0100 ####[facility] [address] [place], [address] MCHC Normal 32-36 [facility] Comment on above: Result Comment: Canc elled via OM: Order cancelled - Patient discharged Performed By: #### L 500.2500, L100.0100 ####[facility] [address] [place], [address] MCV Normal 80-94 [facility] Comment on above: Result Comment: Canc elled via OM: Order cancelled - Patient discharged Performed By: #### L 500.2500, L100.0100 ####[facility] [address] [place], [address] NEUT% Normal 47-70 [facility] Comment on above: Result Comment: Canc elled via OM: Order cancelled - Patient discharged Performed By: #### L 500.2500, L100.0100 ####[facility] [address] [place], [address] PLT Normal 150-450 [facility] Comment on above: Result Comment: Canc elled via OM: Order cancelled - Patient discharged Performed By: #### L 500.2500, L100.0100 ####[facility] [address] [place], [address] RBC Normal 4.6-6.2 [facility] Comment on above: Result Comment: Canc elled via OM: Order cancelled - Patient discharged Performed By: #### L 500.2500, L100.0100 ####[facility] [address] [place], [address] RDW CV Normal 11.6-14.6 [facility] Comment on above: Result Comment: Canc elled via OM: Order cancelled - Patient discharged Performed By: #### L 500.2500, L100.0100 ####[facility] [address] [place], [address] RDW SD Normal 35.1-43.9 [facility] Comment on above: Result Comment: Canc elled via OM: Order cancelled - Patient discharged Performed By: #### L 500.2500, L100.0100 ####[facility] [address] [place], [address] WBC Normal 4.4-11.0 [facility] Comment on above: Result Comment: Canc elled via OM: Order cancelled - Patient discharged Performed By: #### L 500.2500, L100.0100 ####[facility] [address] [place], [address] Basic Metabolic Profile (BMP )on 11-17-2024 BUN Normal 4-19 [facility] Comment on above: Result Comment: Canc elled via OM: Order cancelled - Patient discharged Performed By: #### L 500.2500, L100.0100 ####[facility] [address] [place], [address] BUN/CRE Normal 10-20 [facility] Comment on above: Result Comment: Canc elled via OM: Order cancelled - Patient discharged Performed By: #### L 500.2500, L100.0100 ####[facility] [address] [place], [address] Calcium Normal 7.6-11.0 [facility] Comment on above: Result Comment: Canc elled via OM: Order cancelled - Patient discharged Performed By: #### L 500.2500, L100.0100 ####[facility] [address] [place], [address] CL Normal 98-108 [facility] Comment on above: Result Comment: Canc elled via OM: Order cancelled - Patient discharged Performed By: #### L 500.2500, L100.0100 ####[facility] [address] [place], [address] CO2 Normal 21.0-32.0 [facility] Comment on above: Result Comment: Canc elled via OM: Order cancelled - Patient discharged Performed By: #### L 500.2500, L100.0100 ####[facility] [address] [place], [address] CREAT,SERUM Normal 0.70-1.20 [facility] Comment on above: Result Comment: Canc elled via OM: Order cancelled - Patient discharged Performed By: #### L 500.2500, L100.0100 ####[facility] [address] [place], [address] eGFR Normal >60 [facility] Comment on above: Result Comment: Canc elled via OM: Order cancelled - Patient discharged Performed By: #### L 500.2500, L100.0100 ####[facility] [address] [place], [address] GAP Normal 5-15 [facility] Comment on above: Result Comment: Canc elled via OM: Order cancelled - Patient discharged Performed By: #### L 500.2500, L100.0100 ####[facility] [address] [place], [address] GLU Normal 70-99 [facility] Comment on above: Result Comment: Canc elled via OM: Order cancelled - Patient discharged Performed By: #### L 500.2500, L100.0100 ####[facility] [address] [place], [address] Potassium Normal 3.3-5.1 [facility] Comment on above: Result Comment: Canc elled via OM: Order cancelled - Patient discharged Performed By: #### L 500.2500, L100.0100 ####[facility] [address] [place], [address] Basic Metabolic Profile (BMP) Normal 133-145 [facility] Comment on above: Result Comment: Canc elled via OM: Order cancelled - Patient discharged Performed By: #### L 500.2500, L100.0100 ####[facility] [address] [place], [address] CBC W/Diff, Automatedon 04-2 Absolute Neut Normal 2.0-7.7 [facility] Comment on above: Result Comment: Canc elled via OM: Order cancelled - Patient discharged Performed By: #### L 500.2500, L100.0100 ####[facility] [address] [place], [address] HCT Normal 40-54 [facility] Comment on above: Result Comment: Canc elled via OM: Order cancelled - Patient discharged Performed By: #### L 500.2500, L100.0100 ####[facility] [address] [place], [address] HGB Normal 13.0-16.5 [facility] Comment on above: Result Comment: Canc elled via OM: Order cancelled - Patient discharged Performed By: #### L 500.2500, L100.0100 ####[facility] [address] [place], [address] MCH Normal 27.0-32.0 [facility] Comment on above: Result Comment: Canc elled via OM: Order cancelled - Patient discharged Performed By: #### L 500.2500, L100.0100 ####[facility] [address] [place], [address] MCHC Normal 32-36 [facility] Comment on above: Result Comment: Canc elled via OM: Order cancelled - Patient discharged Performed By: #### L 500.2500, L100.0100 ####[facility] [address] [place], [address] MCV Normal 80-94 [facility] Comment on above: Result Comment: Canc elled via OM: Order cancelled - Patient discharged Performed By: #### L 500.2500, L100.0100 ####[facility] [address] [place], [address] NEUT% Normal 47-70 [facility] Comment on above: Result Comment: Canc elled via OM: Order cancelled - Patient discharged Performed By: #### L 500.2500, L100.0100 ####[facility] [address] [place], [address] PLT Normal 150-450 [facility] Comment on above: Result Comment: Canc elled via OM: Order cancelled - Patient discharged Performed By: #### L 500.2500, L100.0100 ####[facility] [address] [place], [address] RBC Normal 4.6-6.2 [facility] Comment on above: Result Comment: Canc elled via OM: Order cancelled - Patient discharged Performed By: #### L 500.2500, L100.0100 ####[facility] [address] [place], [address] RDW CV Normal 11.6-14.6 [facility] Comment on above: Result Comment: Canc elled via OM: Order cancelled - Patient discharged Performed By: #### L 500.2500, L100.0100 ####[facility] [address] [place], [address] RDW SD Normal 35.1-43.9 [facility] Comment on above: Result Comment: Canc elled via OM: Order cancelled - Patient discharged Performed By: #### L 500.2500, L100.0100 ####[facility] [address] [place], [address] WBC Normal 4.4-11.0 [facility] Comment on above: Result Comment: Canc elled via OM: Order cancelled - Patient discharged Performed By: #### L 500.2500, L100.0100 ####[facility] [address] [place], [address] CNOVon 11-17-2024 CNOV Office Visit (INTMWS) KAM GREENBERG ([id number]) 1950 Date Time Provider Department 11/17/24 11:20 AM ROYCE CARROLL INTMWS During your visit today, we recorded the following information about you: Pulse Blood pressure Weight Height 68/minute 98/44 78.3 kg 1.842 m Royce Carroll MD 11/18/2024 9:28 AM Signed This note was created using [employer]. Subjective Patient presents with: Hospital F/U Kam Greenberg is a 74 year old male here with . He was admitted at [facility] for dyspnea on November 03 to 2024 with slow improvement. He was treated for aspiration pneumonia, COPD exacerbation, and congestive heart failure. His oxygen requirements increased, and new oxygen orders were given. He has been self adjusting his oxygen due to dyspnea. Unfortunately, he also continued to smoke with oxygen, and I warned him of his risk of ferguson. He was now on furosemide, potassium, and losartan. He was not interested in following up with [facility] due to some billing dispute in the past. Review of Systems Constitutional: Negative for chills, fatigue and fever. HENT: Negative for congestion and trouble swallowing. Respiratory: Negative for cough and wheezing. Cardiovascular: Negative for chest pain, palpitations and leg swelling. Gastrointestinal: Negative for diarrhea, nausea and vomiting. Genitourinary: Negative for difficulty urinating and dysuria. Neurological: Negative for dizziness and headaches. 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, Without Long-Term Current Use of Insulin ([facility]) At Risk for Falls Abnormality of Gait Chronic Obstructive Pulmonary Disease With (Acute) Exacerbation ([facility]) Chronic Hypoxemic Respiratory Failure ([facility]) Chronic Diastolic Chf (Congestive Heart Failure) ([facility]) Svt (Supraventricular Tachycardia) ([facility]) Social History Tobacco Use Smoking status: Every Day Current packs/day: 0.00 Average packs/day: 1 pack/day for 55.1 years (55.1 ttl pk-yrs) Types: Cigarettes Start date: 1966 Last attempt to quit: 12/11/2022 Years since quittin.9 Smokeless tobacco: Never Tobacco comments: Smokers in the home. 3 cigarettes per day Vaping Use Vaping status: Never Used Substance Use Topics Alcohol use: Not Currently Comment: rare NAB Drug use: No Current Outpatient Medications Medication Sig predniSONE (DELTASONE) 20 mg tablet Take 20 mg by mouth once daily. melatonin 10 mg tab Take 1 tablet by mouth daily at bedtime. Pt told [facility] nurse he is taking. diphenhydramine HCl (SLEEP AID, DIPHENHYDRAMINE, ORAL) Take 1 capsule by mouth daily at bedtime. Pt told [facility] nurse he is taking. calcium carbonate (TUMS ULTRA ORAL) Take by mouth as needed. Pt told [facility] nurse he is taking. loperamide HCl (IMODIUM ORAL) Take by mouth as needed. Pt told [facility] nurse he is taking. guaifenesin/dextrome thorphan (MUCINEX DM ORAL) Take by mouth as needed. Pt told [facility] nurse he is taking. Ibuprofen 200 mg cap Take by mouth as needed. Pt told [facility] nurse he is taking. furosemide (LASIX) 40 mg tablet Take 40 mg by mouth once daily. From [facility] discharge note 4/18 potassium chloride ER (KLOR-CON M20) 20 mEq tablet Take 20 mEq by mouth once daily. From [facility] discharge note 4/18 albuterol (PROVENTIL) 2.5 mg /3 mL (0.083 %) nebulizer solution Use 2.5 mg via nebulizer every 2 hours as needed for wheezing/shortness of breath. From [facility] discharge note 4/18 losartan (COZAAR) 50 mg tablet Take 1 tablet by mouth once daily. nitroglycerin sublingual (NITROQUICK) 0.4 mg SL tablet Dissolve 1 tablet under the tongue as needed for chest pain. If no pain relief call 911. ipratropium-albutero l (DUONEB) 0.5 mg-3 mg(2.5 mg base)/3 mL nebu Inhale 3 mL as instructed four times daily. amLODIPine (NORVASC) 5 mg tablet Take 1 tablet by mouth once daily. atorvastatin (LIPITOR) 40 mg tablet Take 1 tablet by mouth daily at bedtime. clopidogrel (PLAVIX) 75 mg tablet Take 1 tablet by mouth once daily. fluticasone (FLONASE) 50 mcg/actuation nasal spray Use 1 [place] in each nostril two times a day. metFORMIN (GLUCOPHAGE) 500 mg tablet Take 1 tablet by mouth two times a day with meals. metoprolol tartrate, short acting, (LOPRESSOR) 50 mg tablet Take 1 tablet by mouth two times a day. sertraline (ZOLOFT) 100 mg tablet Take 1 tablet by mouth onc (more content not included)... Normal [facility] Basic Metabolic Profile (BMP )on 11-16-2024 BUN Normal 4-19 [facility] Comment on above: Result Comment: Canc elled via OM: Order cancelled - Patient discharged Performed By: #### L 500.2500, L100.0100 ####[facility] [address] [facility] [address] BUN/CRE Normal 10-20 [facility] Comment on above: Result Comment: Canc elled via OM: Order cancelled - Patient discharged Performed By: #### L 500.2500, L100.0100 ####[facility] [address] [facility] [address] Calcium Normal 7.6-11.0 [facility] Comment on above: Result Comment: Canc elled via OM: Order cancelled - Patient discharged Performed By: #### L 500.2500, L100.0100 ####[facility] [address] [place], [address] CL Normal 98-108 [facility] Comment on above: Result Comment: Canc elled via OM: Order cancelled - Patient discharged Performed By: #### L 500.2500, L100.0100 ####[facility] [address] [facility] [address] CO2 Normal 21.0-32.0 [facility] Comment on above: Result Comment: Canc elled via OM: Order cancelled - Patient discharged Performed By: #### L 500.2500, L100.0100 ####[facility] [address] [place], [address] CREAT,SERUM Normal 0.70-1.20 [facility] Comment on above: Result Comment: Canc elled via OM: Order cancelled - Patient discharged Performed By: #### L 500.2500, L100.0100 ####[facility] [address] [place], [address] eGFR Normal >60 [facility] Comment on above: Result Comment: Canc elled via OM: Order cancelled - Patient discharged Performed By: #### L 500.2500, L100.0100 ####[facility] [address] [place], [address] GAP Normal 5-15 [facility] Comment on above: Result Comment: Canc elled via OM: Order cancelled - Patient discharged Performed By: #### L 500.2500, L100.0100 ####[facility] [address] [place], [address] GLU Normal 70-99 [facility] Comment on above: Result Comment: Canc elled via OM: Order cancelled - Patient discharged Performed By: #### L 500.2500, L100.0100 ####[facility] [address] [place], [address] Potassium Normal 3.3-5.1 [facility] Comment on above: Result Comment: Canc elled via OM: Order cancelled - Patient discharged Performed By: #### L 500.2500, L100.0100 ####[facility] [address] [place], [address] Basic Metabolic Profile (BMP) Normal 133-145 [facility] Comment on above: Result Comment: Canc elled via OM: Order cancelled - Patient discharged Performed By: #### L 500.2500, L100.0100 ####[facility] [address] [place], [address] CBC W/Diff, Automatedon 04-2 Absolute Neut Normal 2.0-7.7 [facility] Comment on above: Result Comment: Canc elled via OM: Order cancelled - Patient discharged Performed By: #### L 500.2500, L100.0100 ####[facility] [address] [place], [address] HCT Normal 40-54 [facility] Comment on above: Result Comment: Canc elled via OM: Order cancelled - Patient discharged Performed By: #### L 500.2500, L100.0100 ####[facility] [address] [place], [address] HGB Normal 13.0-16.5 [facility] Comment on above: Result Comment: Canc elled via OM: Order cancelled - Patient discharged Performed By: #### L 500.2500, L100.0100 ####[facility] [address] [place], [address] MCH Normal 27.0-32.0 [facility] Comment on above: Result Comment: Canc elled via OM: Order cancelled - Patient discharged Performed By: #### L 500.2500, L100.0100 ####[facility] [address] [place], [address] MCHC Normal 32-36 [facility] Comment on above: Result Comment: Canc elled via OM: Order cancelled - Patient discharged Performed By: #### L 500.2500, L100.0100 ####[facility] [address] [place], [address] MCV Normal 80-94 [facility] Comment on above: Result Comment: Canc elled via OM: Order cancelled - Patient discharged Performed By: #### L 500.2500, L100.0100 ####[facility] [address] [place], [address] NEUT% Normal 47-70 [facility] Comment on above: Result Comment: Canc elled via OM: Order cancelled - Patient discharged Performed By: #### L 500.2500, L100.0100 ####[facility] [address] [place], [address] PLT Normal 150-450 [facility] Comment on above: Result Comment: Canc elled via OM: Order cancelled - Patient discharged Performed By: #### L 500.2500, L100.0100 ####[facility] [address] [place], [address] RBC Normal 4.6-6.2 [facility] Comment on above: Result Comment: Canc elled via OM: Order cancelled - Patient discharged Performed By: #### L 500.2500, L100.0100 ####[facility] [address] [place], [address] RDW CV Normal 11.6-14.6 [facility] Comment on above: Result Comment: Canc elled via OM: Order cancelled - Patient discharged Performed By: #### L 500.2500, L100.0100 ####[facility] [address] [place], [address] RDW SD Normal 35.1-43.9 [facility] Comment on above: Result Comment: Canc elled via OM: Order cancelled - Patient discharged Performed By: #### L 500.2500, L100.0100 ####[facility] [address] [place], [address] WBC Normal 4.4-11.0 [facility] Comment on above: Result Comment: Canc elled via OM: Order cancelled - Patient discharged Performed By: #### L 500.2500, L100.0100 ####[facility] [address] [place], [address] Basic Metabolic Profile (BMP )on 11-15-2024 BUN Normal 4-19 [facility] Comment on above: Result Comment: Canc elled via OM: Order cancelled - Patient discharged Performed By: #### L 100.0100, L500.2500 ####[facility] [address] [place], [address] BUN/CRE Normal 10-20 [facility] Comment on above: Result Comment: Canc elled via OM: Order cancelled - Patient discharged Performed By: #### L 100.0100, L500.2500 ####[facility] [address] [place], [address] Calcium Normal 7.6-11.0 [facility] Comment on above: Result Comment: Canc elled via OM: Order cancelled - Patient discharged Performed By: #### L 100.0100, L500.2500 ####[facility] [address] [place], [address] CL Normal 98-108 [facility] Comment on above: Result Comment: Canc elled via OM: Order cancelled - Patient discharged Performed By: #### L 100.0100, L500.2500 ####[facility] [address] [place], [address] CO2 Normal 21.0-32.0 [facility] Comment on above: Result Comment: Canc elled via OM: Order cancelled - Patient discharged Performed By: #### L 100.0100, L500.2500 ####[facility] [address] [place], [address] CREAT,SERUM Normal 0.70-1.20 [facility] Comment on above: Result Comment: Canc elled via OM: Order cancelled - Patient discharged Performed By: #### L 100.0100, L500.2500 ####[facility] [address] [place], [address] eGFR Normal >60 [facility] Comment on above: Result Comment: Canc elled via OM: Order cancelled - Patient discharged Performed By: #### L 100.0100, L500.2500 ####[facility] [address] [place], [address] GAP Normal 5-15 [facility] Comment on above: Result Comment: Canc elled via OM: Order cancelled - Patient discharged Performed By: #### L 100.0100, L500.2500 ####[facility] [address] [place], [address] GLU Normal 70-99 [facility] Comment on above: Result Comment: Canc elled via OM: Order cancelled - Patient discharged Performed By: #### L 100.0100, L500.2500 ####[facility] [address] [place], [address] Potassium Normal 3.3-5.1 [facility] Comment on above: Result Comment: Canc elled via OM: Order cancelled - Patient discharged Performed By: #### L 100.0100, L500.2500 ####[facility] [address] [place], [address] Basic Metabolic Profile (BMP) Normal 133-145 [facility] Comment on above: Result Comment: Canc elled via OM: Order cancelled - Patient discharged Performed By: #### L 100.0100, L500.2500 ####[facility] [address] [place], [address] CBC W/Diff, Automatedon 04-2 Absolute Neut Normal 2.0-7.7 [facility] Comment on above: Result Comment: Canc elled via OM: Order cancelled - Patient discharged Performed By: #### L 100.0100, L500.2500 ####[facility] [address] [place], [address] HCT Normal 40-54 [facility] Comment on above: Result Comment: Canc elled via OM: Order cancelled - Patient discharged Performed By: #### L 100.0100, L500.2500 ####[facility] [address] [place], [address] HGB Normal 13.0-16.5 [facility] Comment on above: Result Comment: Canc elled via OM: Order cancelled - Patient discharged Performed By: #### L 100.0100, L500.2500 ####[facility] [address] [place], [address] MCH Normal 27.0-32.0 [facility] Comment on above: Result Comment: Canc elled via OM: Order cancelled - Patient discharged Performed By: #### L 100.0100, L500.2500 ####[facility] [address] [place], [address] MCHC Normal 32-36 [facility] Comment on above: Result Comment: Canc elled via OM: Order cancelled - Patient discharged Performed By: #### L 100.0100, L500.2500 ####[facility] [address] [place], [address] MCV Normal 80-94 [facility] Comment on above: Result Comment: Canc elled via OM: Order cancelled - Patient discharged Performed By: #### L 100.0100, L500.2500 ####[facility] [address] [place], [address] NEUT% Normal 47-70 [facility] Comment on above: Result Comment: Canc elled via OM: Order cancelled - Patient discharged Performed By: #### L 100.0100, L500.2500 ####[facility] [address] [place], [address] PLT Normal 150-450 [facility] Comment on above: Result Comment: Canc elled via OM: Order cancelled - Patient discharged Performed By: #### L 100.0100, L500.2500 ####[facility] [address] [place], [address] RBC Normal 4.6-6.2 [facility] Comment on above: Result Comment: Canc elled via OM: Order cancelled - Patient discharged Performed By: #### L 100.0100, L500.2500 ####[facility] [address] [place], [address] RDW CV Normal 11.6-14.6 [facility] Comment on above: Result Comment: Canc elled via OM: Order cancelled - Patient discharged Performed By: #### L 100.0100, L500.2500 ####[facility] [address] [place], [address] RDW SD Normal 35.1-43.9 [facility] Comment on above: Result Comment: Canc elled via OM: Order cancelled - Patient discharged Performed By: #### L 100.0100, L500.2500 ####[facility] [address] [place], [address] WBC Normal 4.4-11.0 [facility] Comment on above: Result Comment: Canc elled via OM: Order cancelled - Patient discharged Performed By: #### L 100.0100, L500.2500 ####[facility] [address] [place], [address] Basic Metabolic Profile (BMP )on 11-14-2024 BUN Normal 4-19 [facility] Comment on above: Result Comment: Canc elled via OM: Order cancelled - Patient discharged Performed By: #### L 500.2500, L100.0100 ####[facility] [address] [place], [address] BUN/CRE Normal -20 [facility] Comment on above: Result Comment: Canc elled via OM: Order cancelled - Patient discharged Performed By: #### L 500.2500, L100.0100 ####[facility] [address] [place], [address] Calcium Normal 7.6-11.0 [facility] Comment on above: Result Comment: Canc elled via OM: Order cancelled - Patient discharged Performed By: #### L 500.2500, L100.0100 ####[facility] [address] [place], [address] CL Normal 98-108 [facility] Comment on above: Result Comment: Canc elled via OM: Order cancelled - Patient discharged Performed By: #### L 500.2500, L100.0100 ####[facility] [address] [place], [address] CO2 Normal 21.0-32.0 [facility] Comment on above: Result Comment: Canc elled via OM: Order cancelled - Patient discharged Performed By: #### L 500.2500, L100.0100 ####[facility] [address] [place], [address] CREAT,SERUM Normal 0.70-1.20 [facility] Comment on above: Result Comment: Canc elled via OM: Order cancelled - Patient discharged Performed By: #### L 500.2500, L100.0100 ####[facility] [address] [place], [address] eGFR Normal >60 [facility] Comment on above: Result Comment: Canc elled via OM: Order cancelled - Patient discharged Performed By: #### L 500.2500, L100.0100 ####[facility] [address] [place], [address] GAP Normal 5-15 [facility] Comment on above: Result Comment: Canc elled via OM: Order cancelled - Patient discharged Performed By: #### L 500.2500, L100.0100 ####[facility] [address] [place], [address] GLU Normal 70-99 [facility] Comment on above: Result Comment: Canc elled via OM: Order cancelled - Patient discharged Performed By: #### L 500.2500, L100.0100 ####[facility] [address] [place], [address] Potassium Normal 3.3-5.1 [facility] Comment on above: Result Comment: Canc elled via OM: Order cancelled - Patient discharged Performed By: #### L 500.2500, L100.0100 ####[facility] [address] [place], [address] Basic Metabolic Profile (BMP) Normal 133-145 [facility] Comment on above: Result Comment: Canc elled via OM: Order cancelled - Patient discharged Performed By: #### L 500.2500, L100.0100 ####[facility] [address] [place], [address] CBC W/Diff, Automatedon 04-2 0-2024 Absolute Neut Normal 2.0-7.7 [facility] Comment on above: Result Comment: Canc elled via OM: Order cancelled - Patient discharged Performed By: #### L 500.2500, L100.0100 ####[facility] [address] [place], [address] HCT Normal 40-54 [facility] Comment on above: Result Comment: Canc elled via OM: Order cancelled - Patient discharged Performed By: #### L 500.2500, L100.0100 ####[facility] [address] [place], [address] HGB Normal 13.0-16.5 [facility] Comment on above: Result Comment: Canc elled via OM: Order cancelled - Patient discharged Performed By: #### L 500.2500, L100.0100 ####[facility] [address] [place], [address] MCH Normal 27.0-32.0 [facility] Comment on above: Result Comment: Canc elled via OM: Order cancelled - Patient discharged Performed By: #### L 500.2500, L100.0100 ####[facility] [address] [place], [address] MCHC Normal 32-36 [facility] Comment on above: Result Comment: Canc elled via OM: Order cancelled - Patient discharged Performed By: #### L 500.2500, L100.0100 ####[facility] [address] [place], [address] MCV Normal 80-94 [facility] Comment on above: Result Comment: Canc elled via OM: Order cancelled - Patient discharged Performed By: #### L 500.2500, L100.0100 ####[facility] [address] [place], [address] NEUT% Normal 47-70 [facility] Comment on above: Result Comment: Canc elled via OM: Order cancelled - Patient discharged Performed By: #### L 500.2500, L100.0100 ####[facility] [address] [place], [address] PLT Normal 150-450 [facility] Comment on above: Result Comment: Canc elled via OM: Order cancelled - Patient discharged Performed By: #### L 500.2500, L100.0100 ####[facility] [address] [place], [address] RBC Normal 4.6-6.2 [facility] Comment on above: Result Comment: Canc elled via OM: Order cancelled - Patient discharged Performed By: #### L 500.2500, L100.0100 ####[facility] [address] [place], [address] RDW CV Normal 11.6-14.6 [facility] Comment on above: Result Comment: Canc elled via OM: Order cancelled - Patient discharged Performed By: #### L 500.2500, L100.0100 ####[facility] [address] [place], [address] RDW SD Normal 35.1-43.9 [facility] Comment on above: Result Comment: Canc elled via OM: Order cancelled - Patient discharged Performed By: #### L 500.2500, L100.0100 ####[facility] [address] [place], [address] WBC Normal 4.4-11.0 [facility] Comment on above: Result Comment: Canc elled via OM: Order cancelled - Patient discharged Performed By: #### L 500.2500, L100.0100 ####[facility] [address] [place], [address] Basic Metabolic Profile (BMP )on 11-13-2024 BUN Normal 4-19 [facility] Comment on above: Result Comment: Canc elled via OM: Order cancelled - Patient discharged Performed By: #### L 500.2500, L100.0100 ####[facility] [address] [place], [address] BUN/CRE Normal 10-20 [facility] Comment on above: Result Comment: Canc elled via OM: Order cancelled - Patient discharged Performed By: #### L 500.2500, L100.0100 ####[facility] [address] [place], [address] Calcium Normal 7.6-11.0 [facility] Comment on above: Result Comment: Canc elled via OM: Order cancelled - Patient discharged Performed By: #### L 500.2500, L100.0100 ####[facility] [address] [place], [address] CL Normal 98-108 [facility] Comment on above: Result Comment: Canc elled via OM: Order cancelled - Patient discharged Performed By: #### L 500.2500, L100.0100 ####[facility] [address] [place], [address] CO2 Normal 21.0-32.0 [facility] Comment on above: Result Comment: Canc elled via OM: Order cancelled - Patient discharged Performed By: #### L 500.2500, L100.0100 ####[facility] [address] [place], [address] CREAT,SERUM Normal 0.70-1.20 [facility] Comment on above: Result Comment: Canc elled via OM: Order cancelled - Patient discharged Performed By: #### L 500.2500, L100.0100 ####[facility] [address] [place], [address] eGFR Normal >60 [facility] Comment on above: Result Comment: Canc elled via OM: Order cancelled - Patient discharged Performed By: #### L 500.2500, L100.0100 ####[facility] [address] [place], [address] GAP Normal 5-15 [facility] Comment on above: Result Comment: Canc elled via OM: Order cancelled - Patient discharged Performed By: #### L 500.2500, L100.0100 ####[facility] [address] [place], [address] GLU Normal 70-99 [facility] Comment on above: Result Comment: Canc elled via OM: Order cancelled - Patient discharged Performed By: #### L 500.2500, L100.0100 ####[facility] [address] [place], [address] Potassium Normal 3.3-5.1 [facility] Comment on above: Result Comment: Canc elled via OM: Order cancelled - Patient discharged Performed By: #### L 500.2500, L100.0100 ####[facility] [address] [place], [address] Basic Metabolic Profile (BMP) Normal 133-145 [facility] Comment on above: Result Comment: Canc elled via OM: Order cancelled - Patient discharged Performed By: #### L 500.2500, L100.0100 ####[facility] [address] [place], [address] CBC W/Diff, Automatedon 04- Absolute Neut Normal 2.0-7.7 [facility] Comment on above: Result Comment: Canc elled via OM: Order cancelled - Patient discharged Performed By: #### L 500.2500, L100.0100 ####[facility] [address] [place], [address] HCT Normal 40-54 [facility] Comment on above: Result Comment: Canc elled via OM: Order cancelled - Patient discharged Performed By: #### L 500.2500, L100.0100 ####[facility] [address] [place], [address] HGB Normal 13.0-16.5 [facility] Comment on above: Result Comment: Canc elled via OM: Order cancelled - Patient discharged Performed By: #### L 500.2500, L100.0100 ####[facility] [address] [place], [address] MCH Normal 27.0-32.0 [facility] Comment on above: Result Comment: Canc elled via OM: Order cancelled - Patient discharged Performed By: #### L 500.2500, L100.0100 ####[facility] [address] [place], [address] MCHC Normal 32-36 [facility] Comment on above: Result Comment: Canc elled via OM: Order cancelled - Patient discharged Performed By: #### L 500.2500, L100.0100 ####[facility] [address] [place], [address] MCV Normal 80-94 [facility] Comment on above: Result Comment: Canc elled via OM: Order cancelled - Patient discharged Performed By: #### L 500.2500, L100.0100 ####[facility] [address] [place], [address] NEUT% Normal 47-70 [facility] Comment on above: Result Comment: Canc elled via OM: Order cancelled - Patient discharged Performed By: #### L 500.2500, L100.0100 ####[facility] [address] [place], [address] PLT Normal 150-450 [facility] Comment on above: Result Comment: Canc elled via OM: Order cancelled - Patient discharged Performed By: #### L 500.2500, L100.0100 ####[facility] [address] [place], [address] RBC Normal 4.6-6.2 [facility] Comment on above: Result Comment: Canc elled via OM: Order cancelled - Patient discharged Performed By: #### L 500.2500, L100.0100 ####[facility] [address] [place], [address] RDW CV Normal 11.6-14.6 [facility] Comment on above: Result Comment: Canc elled via OM: Order cancelled - Patient discharged Performed By: #### L 500.2500, L100.0100 ####[facility] [address] [place], [address] RDW SD Normal 35.1-43.9 [facility] Comment on above: Result Comment: Canc elled via OM: Order cancelled - Patient discharged Performed By: #### L 500.2500, L100.0100 ####[facility] [address] [place], [address] WBC Normal 4.4-11.0 [facility] Comment on above: Result Comment: Canc elled via OM: Order cancelled - Patient discharged Performed By: #### L 500.2500, L100.0100 ####[facility] [address] [place], [address] Absolute lymphocyte countOrd ered By: Rafaelaverito Pelayo on 11-12-2024 Lymphocytes Auto (Unsp spec) [#/Vol] 2.54 10*3/uL 0.83-4.51 [facility] Absolute neutrophil countOrd ered By: Rafaela Pelayo on 11-12-2024 Neutrophils (Bld) [#/Vol] 5.8 10*3/uL 2.0-7.7 [facility] Anion gap in Serum or Plasma Ordered By: Rafaela Pelayo on 11-12-2024 Anion gap [Moles/Vol] 10 mmol/L 5- [facility] Automated lymphocyte count a s percentage of total leukocytesOrdered By: Rafaela Pelayo on 11-12-2024 Lymphocytes/100 WBC Auto (Unsp spec) 27.3 % -41 [facility] BUN/creatinine ratioOrdered By: Rafaela Pelayo on 11-12-2024 Urea nitrogen/Creatinine [Mass ratio] 17.4 mg/mg 10- [facility] Basic Metabolic Profile (BMP )on 11-12-2024 BUN/CRE 17.4 RATIO Normal - [facility] Comment on above: Performed By: #### L 100.0100, L500.2500 ####[facility] [address] [place], [address] Calcium [Mass/Vol] 8.6 mg/dL Normal 7.6-11.0 [facility] Comment on above: Performed By: #### L 100.0100, L500.2500 ####[facility] [address] [place], [address] Chloride [Moles/Vol] 97 mmol/L Low 98-108 [facility] Comment on above: Performed By: #### L 100.0100, L500.2500 ####[facility] [address] [place], [address] CO2 [Moles/Vol] 32.8 mmol/L High 21.0-32.0 [facility] Comment on above: Performed By: #### L 100.0100, L500.2500 ####[facility] [address] [place], [address] Creatinine [Mass/Vol] 1.66 mg/dL High 0.70-1.20 [facility] Comment on above: Performed By: #### L 100.0100, L500.2500 ####[facility] [address] [place], [address] ECRCL 41.71 ml/min Low 50-250 [facility] Comment on above: Performed By: #### L 100.0100, L500.2500 ####[facility] [address] [place], [address] GAP 10 Normal 5-15 [facility] Comment on above: Performed By: #### L 100.0100, L500.2500 ####[facility] [address] [place], [address] GFR/1.73 sq M.predicted among non-blacks MDRD (S/P/Bld) [Vol rate/Area] 43 mL/min/{1.73_m2} Low >60 [facility] Comment on above: Result Comment: mL/m in/1.73m2 CKD-EPI Creatinine Equation (2020) Performed By: #### L 100.0100, L500.2500 ####[facility] [address] [place], [address] Glucose [Mass/Vol] 183 mg/dL High 70-99 [facility] Comment on above: Performed By: #### L 100.0100, L500.2500 ####[facility] [address] [place], [address] Potassium [Moles/Vol] 4.0 mmol/L Normal 3.3-5.1 [facility] Comment on above: Performed By: #### L 100.0100, L500.2500 ####[facility] [address] [place], [address] Sodium [Moles/Vol] 140 mmol/L Normal 133-145 [facility] Comment on above: Performed By: #### L 100.0100, L500.2500 ####[facility] [address] [place], [address] Urea nitrogen [Mass/Vol] 29 mg/dL High 4-19 [facility] Comment on above: Performed By: #### L 100.0100, L500.2500 ####[facility] [address] [place], [address] Basophil percentageOrdered B y: Rafaela Pelayo on 11-12-2024 Basophils/100 WBC (Bld) 0.1 % 0-1 [facility] Bedside Glucoseon 11-12-2024 FINGERSTICK GLU 320 mg/dL High 74-106 [facility] Comment on above: Result Comment: DIPAK GEMENT OF PATIENT CARE PER NURSING PROTOCOL Performed By: #### L 501.080 ####[facility] [address] [place], [address] FINGERSTICK GLU 162 mg/dL High 74-106 [facility] Comment on above: Result Comment: DIPAK GEMENT OF PATIENT CARE PER NURSING PROTOCOL Performed By: #### L 501.080 ####[facility] [address] [place], [address] CBC W/Diff, Automatedon - Absolute Lymph 2.54 X10 3/uL Normal 0.83-4.51 [facility] Comment on above: Performed By: #### L 100.0100, L500.2500 ####[facility] [address] [place], [address] Absolute Neut 5.8 X10 3/uL Normal 2.0-7.7 [facility] Comment on above: Performed By: #### L 100.0100, L500.2500 ####[facility] [address] [place], [address] Basophils/100 WBC (Bld) 0.1 % Normal 0-1 [facility] Comment on above: Performed By: #### L 100.0100, L500.2500 ####[facility] [address] [place], [address] Eosinophils/100 WBC (Bld) 2.5 % Normal 0-5 [facility] Comment on above: Performed By: #### L 100.0100, L500.2500 ####[facility] [address] [place], [address] Erythrocyte distribution width (RBC) [Ratio] 13.8 % Normal 11.6-14.6 [facility] Comment on above: Performed By: #### L 100.0100, L500.2500 ####[facility] [address] [place], [address] Hematocrit (Bld) [Volume fraction] 27.6 % Low 40-54 [facility] Comment on above: Performed By: #### L 100.0100, L500.2500 ####[facility] [address] [place], [address] Hemoglobin (Bld) [Mass/Vol] 9.1 g/dL Low 13.0-16.5 [facility] Comment on above: Performed By: #### L 100.0100, L500.2500 ####[facility] [address] [place], [address] IG% 0.500 Normal 0.0-0.9 [facility] Comment on above: Result Comment: IG% - Immature Granulocytes (promyelocytes, myelocytes andmetamyelocytes) > 1% indicates that a LEFT SHIFT is Present. Performed By: #### L 100.0100, L500.2500 ####[facility] [address] [place], [address] Lymphocytes/100 WBC (Bld) 27.3 % Normal 19-41 [facility] Comment on above: Performed By: #### L 100.0100, L500.2500 ####[facility] [address] [place], [address] MCH (RBC) [Entitic mass] 32.9 pg High 27.0-32.0 [facility] Comment on above: Performed By: #### L 100.0100, L500.2500 ####[facility] [address] [place], [address] MCHC (RBC) [Mass/Vol] 33.0 g/dL Normal 32-36 [facility] Comment on above: Performed By: #### L 100.0100, L500.2500 ####[facility] [address] [place], [address] MCV (RBC) [Entitic vol] 99.6 fL High 80-94 [facility] Comment on above: Performed By: #### L 100.0100, L500.2500 ####[facility] [address] [place], [address] Monocytes/100 WBC (Bld) 7.8 % Normal 0-10 [facility] Comment on above: Performed By: #### L 100.0100, L500.2500 ####[facility] [address] [place], [address] Neutrophils/100 WBC (Bld) 61.8 % Normal 47-70 [facility] Comment on above: Performed By: #### L 100.0100, L500.2500 ####[facility] [address] [place], [address] Nucleated RBC (Bld) [#/Vol] 0 10*3/uL Normal 0-5 [facility] Comment on above: Performed By: #### L 100.0100, L500.2500 ####[facility] [address] [place], [address] Platelet mean volume (Bld) [Entitic vol] 9.9 fL Normal 6.2-12.0 [facility] Comment on above: Performed By: #### L 100.0100, L500.2500 ####[facility] [address] [place], [address] Platelets (Bld) [#/Vol] 237 10*3/uL Normal 150-450 [facility] Comment on above: Performed By: #### L 100.0100, L500.2500 ####[facility] [address] [place], [address] RBC (Bld) [#/Vol] 2.77 10*6/uL Low 4.6-6.2 [facility] Comment on above: Performed By: #### L 100.0100, L500.2500 ####[facility] [address] [place], [address] RDW SD 50.1 fl High 35.1-43.9 [facility] Comment on above: Performed By: #### L 100.0100, L500.2500 ####[facility] [address] [place], [address] WBC (Bld) [#/Vol] 9.3 10*3/uL Normal 4.4-11.0 [facility] Comment on above: Performed By: #### L 100.0100, L500.2500 ####[facility] [address] [place], [address] Carbon dioxide, total [Moles /volume] in Central venous bloodOrdered By: Rafaela Pelayo on 11-12-2024 CO2 [Moles/Vol] 32.8 mmol/L High 21.0-32.0 [facility] Chloride assayOrdered By: Maria Ines Pelayo on 11-12-2024 Chloride [Moles/Vol] 97 mmol/L Low 98-108 [facility] Discharge Instructionon 10-26 Discharge Instruction Normal [facility] Eosinophil percentageOrdered By: Rafaela Pelayo on 11-12-2024 Eosinophils/100 WBC (Bld) 2.5 % 0-5 [facility] Erythrocyte distribution wid th (RBC) [Ratio]Ordered By: Rafaela Pelayo on 11-12-2024 Erythrocyte distribution width (RBC) [Entitic vol] 50.1 fL High 35.1-43.9 [facility] Erythrocyte distribution wid th ratioOrdered By: Rafaela Pelayo on 11-12-2024 Erythrocyte distribution width (RBC) [Ratio] 13.8 % 11.6-14.6 [facility] Erythrocyte distribution wid th standard deviationOrdered By: Rafaela Pelayo on 11-12-2024 Erythrocyte distribution width (RBC) [Ratio] 50.1 fl High 35.1-43.9 [facility] Estimation of creatinine carlos aranceOrdered By: Rafaela Pelayo on 11-12-2024 Estimated Creatinine Clearance Calc 41.71 ml/min Low 50-250 [facility] GFR/1.73 sq M.predicted bisi g non-blacks MDRD (S/P/Bld) [Vol rate/Area]Ordered By: Rafaela Pelayo on 11-12-2024 Estimated GFR (MDRD) Non-Af Amer 43 Low >60 [facility] Comment on above: mL/min/1.73m2 CKD-EP I Creatinine Equation (2020) Glomerular filtration rate ( GFR) estimation/1.73 sq m using serum, plasma, or whole bOrdered By: Rafaela Pelayo on 11-12-2024 GFR/1.73 sq M.predicted among non-blacks MDRD (S/P/Bld) [Vol rate/Area] 43 mL/min/{1.73_m2} Low >60 [facility] Comment on above: mL/min/1.73m2 CKD-EP I Creatinine Equation (2020) Glucose measurement at bedsi deOrdered By: Rafaela Pelayo on 11-12-2024 Bedside Glucose (Misc Panel) 320 mg/dL High 74-106 [facility] Comment on above: MANAGEMENT OF PATIEN T CARE PER NURSING PROTOCOL Glucose [Mass/Vol] 320 mg/dL High 74-106 [facility] Comment on above: MANAGEMENT OF PATIEN T CARE PER NURSING PROTOCOL Hematocrit Auto (Bld) [Volum e fraction]Ordered By: Rafaela Pelayo on 11-12-2024 Hematocrit (Bld) [Volume fraction] 27.6 % Low 40-54 [facility] Hemoglobin measurementOrdere d By: Rafaela Pelayo on 11-12-2024 Hemoglobin (Bld) [Mass/Vol] 9.1 g/dL Low 13.0-16.5 [facility] Immature granulocytes/100 WB C Auto (Bld)Ordered By: Rafaela Pelayo on 11-12-2024 Immature granulocytes/100 WBC (Bld) 0.500 % 0.0-0.9 [facility] Comment on above: IG% - Immature Granu locytes (promyelocytes, myelocytes and metamyelocytes) > 1% indicates that a LEFT SHIFT is Present. Lymphocytes Auto (Unsp spec) [#/Vol]Ordered By: Rafaela Pelayo on 11-12-2024 Lymphocytes (Bld) [#/Vol] 2.54 10*3/uL 0.83-4.51 [facility] Lymphocytes/100 WBC Auto (Un sp spec)Ordered By: Rafaela Pelayo 11-12-2024 Lymphocytes/100 WBC (Bld) 27.3 % 19-41 [facility] MCV (mean corpuscular volume ) determinationOrdered By: Rafaela Pelayo 11-12-2024 MCV (RBC) [Entitic vol] 99.6 fL High 80-94 [facility] Mean corpuscular hemoglobin (MCH) determinationOrdered By: Rafaela Pelayo 11-12-2024 MCH (RBC) [Entitic mass] 32.9 pg High 27.0-32.0 [facility] Mean corpuscular hemoglobin concentration (MCHC) determinationOrdered By: Rafaela Pelayo 11-12-2024 MCHC (RBC) [Mass/Vol] 33.0 g/dL 32-36 [facility] Mean platelet volume determi nationOrdered By: Rafaela Pelayo 11-12-2024 Platelet mean volume (Bld) [Entitic vol] 9.9 fL 6.2-12.0 [facility] Monocyte percentageOrdered B y: Rafaela Gita on 11-12-2024 Monocytes/100 WBC (Bld) 7.8 % 0-10 [facility] Neutrophil percentageOrdered By: Rafaelaverito Pelayo on 11-12-2024 Neutrophils/100 WBC (Bld) 61.8 % 47-70 [facility] Nucleated red blood cell per centageOrdered By: Rafaela Pelayo on 11-12-2024 Nucleated RBC/100 WBC (Bld) [Ratio] 0 % 0-5 [facility] Platelet countOrdered By: Na maria ines Pelayo on 11-12-2024 Platelets (Bld) [#/Vol] 237 10*3/uL 150-450 [facility] Potassium (Unsp spec) [Mass/ Vol]Ordered By: Rafaela Pelayo on 11-12-2024 Potassium [Moles/Vol] 4.0 mmol/L 3.3-5.1 [facility] Potassium measurement (mass/ volume)Ordered By: Rafaela Pelayo on 11-12-2024 Potassium (Unsp spec) [Mass/Vol] 4.0 mmol/L 3.3-5.1 [facility] RBC Auto (Bld) [#/Vol]Ordere d By: Rafaela Pelayo on 11-12-2024 RBC (Bld) [#/Vol] 2.77 10*6/uL Low 4.6-6.2 [facility] Serum creatinine measurement (mass/volume)Ordered By: Rafaela Pelayo on 11-12-2024 Creatinine [Mass/Vol] 1.66 mg/dL High 0.70-1.20 [facility] Serum glucose measurement (m ass/volume)Ordered By: Rafaela Pelayo on 11-12-2024 Glucose [Mass/Vol] 183 mg/dL High 70-99 [facility] Serum or plasma calcium mallorie urement (mass/volume)Ordered By: Rafaela Pelayo on 11-12-2024 Calcium [Mass/Vol] 8.6 mg/dL 7.6-11.0 [facility] Serum or plasma urea nitroge n measurement (mass/volume)Ordered By: Rafaela Pelayo on 11-12-2024 Urea nitrogen [Mass/Vol] 29 mg/dL High 4-19 [facility] Sodium levelOrdered By: Rafaela Pelayo on 11-12-2024 Sodium [Moles/Vol] 140 mmol/L 133-145 [facility] White blood cell (WBC) count Ordered By: Rafaela Pleayo on 11-12-2024 WBC (Bld) [#/Vol] 9.3 10*3/uL 4.4-11.0 [facility] Basic Metabolic Profile (BMP )on 11-11-2024 BUN/CRE 17.8 RATIO Normal 10-20 [facility] Comment on above: Performed By: #### L 100.0100, L500.2500 ####[facility] [address] [place], [address] Calcium [Mass/Vol] 8.6 mg/dL Normal 7.6-11.0 [facility] Comment on above: Performed By: #### L 100.0100, L500.2500 ####[facility] [address] [place], [address] Chloride [Moles/Vol] 100 mmol/L Normal 98-108 [facility] Comment on above: Performed By: #### L 100.0100, L500.2500 ####[facility] [address] [place], [address] CO2 [Moles/Vol] 33.0 mmol/L High 21.0-32.0 [facility] Comment on above: Performed By: #### L 100.0100, L500.2500 ####[facility] [address] [place], [address] Creatinine [Mass/Vol] 1.51 mg/dL High 0.70-1.20 [facility] Comment on above: Performed By: #### L 100.0100, L500.2500 ####[facility] [address] [place], [address] ECRCL 47.14 ml/min Low 50-250 [facility] Comment on above: Performed By: #### L 100.0100, L500.2500 ####[facility] [address] [place], [address] GAP 8 Normal 5-15 [facility] Comment on above: Performed By: #### L 100.0100, L500.2500 ####[facility] [address] [place], [address] GFR/1.73 sq M.predicted among non-blacks MDRD (S/P/Bld) [Vol rate/Area] 48 mL/min/{1.73_m2} Low >60 [facility] Comment on above: Result Comment: mL/m in/1.73m2 CKD-EPI Creatinine Equation (2020) Performed By: #### L 100.0100, L500.2500 ####[facility] [address] [place], [address] Glucose [Mass/Vol] 156 mg/dL High 70-99 [facility] Comment on above: Performed By: #### L 100.0100, L500.2500 ####[facility] [address] [place], [address] Potassium [Moles/Vol] 3.9 mmol/L Normal 3.3-5.1 [facility] Comment on above: Performed By: #### L 100.0100, L500.2500 ####[facility] [address] [place], [address] Sodium [Moles/Vol] 141 mmol/L Normal 133-145 [facility] Comment on above: Performed By: #### L 100.0100, L500.2500 ####[facility] [address] [place], [address] Urea nitrogen [Mass/Vol] 27 mg/dL High 4-19 [facility] Comment on above: Performed By: #### L 100.0100, L500.2500 ####[facility] [address] [place], [address] Bedside Glucoseon 11-11-2024 FINGERSTICK GLU 392 mg/dL High [facility]106 [facility] Comment on above: Result Comment: DIPAK GEMENT OF PATIENT CARE PER NURSING PROTOCOL Performed By: #### L 501.080 ####[facility] [address] [place], [address] FINGERSTICK GLU 245 mg/dL High -106 [facility] Comment on above: Result Comment: DIPAK GEMENT OF PATIENT CARE PER NURSING PROTOCOL Performed By: #### L 501.080 ####[facility] [address] [place], [address] FINGERSTICK GLU 218 mg/dL High [address] [place] [address] Comment on above: Result Comment: DIPAK GEMENT OF PATIENT CARE PER NURSING PROTOCOL Performed By: #### L 501.080 ####[facility] [address] [place], [address] FINGERSTICK GLU 155 mg/dL High [facility]106 [facility] Comment on above: Result Comment: DIPAK GEMENT OF PATIENT CARE PER NURSING PROTOCOL Performed By: #### L 501.080 ####[facility] [address] [place], [address] CBC W/Diff, Automatedon - Absolute Lymph 3.25 X10 3/uL Normal 0.83-4.51 [facility] Comment on above: Performed By: #### L 100.0100, L500.2500 ####[facility] [address] [place], [address] Absolute Neut 7.3 X10 3/uL Normal 2.0-7.7 [facility] Comment on above: Performed By: #### L 100.0100, L500.2500 ####[facility] [address] [place], [address] Basophils/100 WBC (Bld) 0.1 % Normal 0-1 [facility] Comment on above: Performed By: #### L 100.0100, L500.2500 ####[facility] [address] [place], [address] Eosinophils/100 WBC (Bld) 3.3 % Normal 0-5 [facility] Comment on above: Performed By: #### L 100.0100, L500.2500 ####[facility] [address] [place], [address] Erythrocyte distribution width (RBC) [Ratio] 13.8 % Normal 11.6-14.6 [facility] Comment on above: Performed By: #### L 100.0100, L500.2500 ####[facility] [address] [place], [address] Hematocrit (Bld) [Volume fraction] 28.3 % Low 40-54 [facility] Comment on above: Performed By: #### L 100.0100, L500.2500 ####[facility] [address] [place], [address] Hemoglobin (Bld) [Mass/Vol] 9.1 g/dL Low 13.0-16.5 [facility] Comment on above: Performed By: #### L 100.0100, L500.2500 ####[facility] [address] [place], [address] IG% 0.500 Normal 0.0-0.9 [facility] Comment on above: Result Comment: IG% - Immature Granulocytes (promyelocytes, myelocytes andmetamyelocytes) > 1% indicates that a LEFT SHIFT is Present. Performed By: #### L 100.0100, L500.2500 ####[facility] [address] [place], [address] Lymphocytes/100 WBC (Bld) 27.9 % Normal 19-41 [facility] Comment on above: Performed By: #### L 100.0100, L500.2500 ####[facility] [address] [place], [address] MCH (RBC) [Entitic mass] 32.4 pg High 27.0-32.0 [facility] Comment on above: Performed By: #### L 100.0100, L500.2500 ####[facility] [address] [place], [address] MCHC (RBC) [Mass/Vol] 32.2 g/dL Normal 32-36 [facility] Comment on above: Performed By: #### L 100.0100, L500.2500 ####[facility] [address] [place], [address] MCV (RBC) [Entitic vol] 100.7 fL High 80-94 [facility] Comment on above: Performed By: #### L 100.0100, L500.2500 ####[facility] [address] [place], [address] Monocytes/100 WBC (Bld) 5.5 % Normal 0-10 [facility] Comment on above: Performed By: #### L 100.0100, L500.2500 ####[facility] [address] [place], [address] Neutrophils/100 WBC (Bld) 62.7 % Normal 47-70 [facility] Comment on above: Performed By: #### L 100.0100, L500.2500 ####[facility] [address] [place], [address] Nucleated RBC (Bld) [#/Vol] 0 10*3/uL Normal 0-5 [facility] Comment on above: Performed By: #### L 100.0100, L500.2500 ####[facility] [address] [place], [address] Platelet mean volume (Bld) [Entitic vol] 9.6 fL Normal 6.2-12.0 [facility] Comment on above: Performed By: #### L 100.0100, L500.2500 ####[facility] [address] [place], [address] Platelets (Bld) [#/Vol] 223 10*3/uL Normal 150-450 [facility] Comment on above: Performed By: #### L 100.0100, L500.2500 ####[facility] [address] [place], [address] RBC (Bld) [#/Vol] 2.81 10*6/uL Low 4.6-6.2 [facility] Comment on above: Performed By: #### L 100.0100, L500.2500 ####[facility] [address] [place], [address] RDW SD 50.9 fl High 35.1-43.9 [facility] Comment on above: Performed By: #### L 100.0100, L500.2500 ####[facility] [address] [place], [address] WBC (Bld) [#/Vol] 11.7 10*3/uL High 4.4-11.0 [facility] Comment on above: Performed By: #### L 100.0100, L500.2500 ####[facility] [address] [place], [address] Basic Metabolic Profile (BMP )on 11-10-2024 BUN/CRE 21.4 RATIO High 10-20 [facility] Comment on above: Performed By: #### L 100.0100, L500.2500 ####[facility] [address] [place], [address] Calcium [Mass/Vol] 8.7 mg/dL Normal 7.6-11.0 [facility] Comment on above: Performed By: #### L 100.0100, L500.2500 ####[facility] [address] [place], [address] Chloride [Moles/Vol] 101 mmol/L Normal 98-108 [facility] Comment on above: Performed By: #### L 100.0100, L500.2500 ####[facility] [address] [place], [address] CO2 [Moles/Vol] 31.9 mmol/L Normal 21.0-32.0 [facility] Comment on above: Performed By: #### L 100.0100, L500.2500 ####[facility] [address] [place], [address] Creatinine [Mass/Vol] 1.32 mg/dL High 0.70-1.20 [facility] Comment on above: Performed By: #### L 100.0100, L500.2500 ####[facility] [address] [place], [address] ECRCL 54.14 ml/min Normal 50-250 [facility] Comment on above: Performed By: #### L 100.0100, L500.2500 ####[facility] [address] [place], [address] GAP 7 Normal 5-15 [facility] Comment on above: Performed By: #### L 100.0100, L500.2500 ####[facility] [address] [place], [address] GFR/1.73 sq M.predicted among non-blacks MDRD (S/P/Bld) [Vol rate/Area] 57 mL/min/{1.73_m2} Low >60 [facility] Comment on above: Result Comment: mL/m in/1.73m2 CKD-EPI Creatinine Equation (2020) Performed By: #### L 100.0100, L500.2500 ####[facility] [address] [place], [address] Glucose [Mass/Vol] 217 mg/dL High 70-99 [facility] Comment on above: Performed By: #### L 100.0100, L500.2500 ####[facility] [address] [place], [address] Potassium [Moles/Vol] 4.8 mmol/L Normal 3.3-5.1 [facility] Comment on above: Performed By: #### L 100.0100, L500.2500 ####[facility] [address] [place], [address] Sodium [Moles/Vol] 139 mmol/L Normal 133-145 [facility] Comment on above: Performed By: #### L 100.0100, L500.2500 ####[facility] [address] [place], [address] Urea nitrogen [Mass/Vol] 28 mg/dL High 4-19 [facility] Comment on above: Performed By: #### L 100.0100, L500.2500 ####[facility] [address] [place], [address] Bedside Glucoseon 11-10-2024 FINGERSTICK GLU 266 mg/dL High 74-106 [facility] Comment on above: Result Comment: DIPAK GEMENT OF PATIENT CARE PER NURSING PROTOCOL Performed By: #### L 501.080 ####[facility] [address] [place], [address] FINGERSTICK GLU 156 mg/dL High 74-106 [facility] Comment on above: Result Comment: DIPAK GEMENT OF PATIENT CARE PER NURSING PROTOCOL Performed By: #### L 501.080 ####[facility] [address] [place], [address] FINGERSTICK GLU 353 mg/dL High 74-106 [facility] Comment on above: Result Comment: DIPAK GEMENT OF PATIENT CARE PER NURSING PROTOCOL Performed By: #### L 501.080 ####[facility] [address] [place], [address] FINGERSTICK GLU 232 mg/dL High 74-106 [facility] Comment on above: Result Comment: DIPAK GEMENT OF PATIENT CARE PER NURSING PROTOCOL Performed By: #### L 501.080 ####[facility] [address] [place], [address] CBC W/Diff, Automatedon 04- Absolute Lymph 1.00 X10 3/uL Normal 0.83-4.51 [facility] Comment on above: Performed By: #### L 100.0100, L500.2500 ####[facility] [address] [place], [address] Absolute Neut 7.6 X10 3/uL Normal 2.0-7.7 [facility] Comment on above: Performed By: #### L 100.0100, L500.2500 ####[facility] [address] [place], [address] Basophils/100 WBC (Bld) 0.0 % Normal 0-1 [facility] Comment on above: Performed By: #### L 100.0100, L500.2500 ####[facility] [address] [place], [address] Eosinophils/100 WBC (Bld) 0.3 % Normal 0-5 [facility] Comment on above: Performed By: #### L 100.0100, L500.2500 ####[facility] [address] [place], [address] Erythrocyte distribution width (RBC) [Ratio] 13.7 % Normal 11.6-14.6 [facility] Comment on above: Performed By: #### L 100.0100, L500.2500 ####[facility] [address] [place], [address] Hematocrit (Bld) [Volume fraction] 28.3 % Low 40-54 [facility] Comment on above: Performed By: #### L 100.0100, L500.2500 ####[facility] [address] [place], [address] Hemoglobin (Bld) [Mass/Vol] 9.2 g/dL Low 13.0-16.5 [facility] Comment on above: Performed By: #### L 100.0100, L500.2500 ####[facility] [address] [place], [address] IG% 0.700 Normal 0.0-0.9 [facility] Comment on above: Result Comment: IG% - Immature Granulocytes (promyelocytes, myelocytes andmetamyelocytes) > 1% indicates that a LEFT SHIFT is Present. Performed By: #### L 100.0100, L500.2500 ####[facility] [address] [place], [address] Lymphocytes/100 WBC (Bld) 10.9 % Low 19-41 [facility] Comment on above: Performed By: #### L 100.0100, L500.2500 ####[facility] [address] [place], [address] MCH (RBC) [Entitic mass] 32.7 pg High 27.0-32.0 [facility] Comment on above: Performed By: #### L 100.0100, L500.2500 ####[facility] [address] [place], [address] MCHC (RBC) [Mass/Vol] 32.5 g/dL Normal 32-36 [facility] Comment on above: Performed By: #### L 100.0100, L500.2500 ####[facility] [address] [place], [address] MCV (RBC) [Entitic vol] 100.7 fL High 80-94 [facility] Comment on above: Performed By: #### L 100.0100, L500.2500 ####[facility] [address] [place], [address] Monocytes/100 WBC (Bld) 5.1 % Normal 0-10 [facility] Comment on above: Performed By: #### L 100.0100, L500.2500 ####[facility] [address] [place], [address] Neutrophils/100 WBC (Bld) 83.0 % High 47-70 [facility] Comment on above: Performed By: #### L 100.0100, L500.2500 ####[facility] [address] [place], [address] Nucleated RBC (Bld) [#/Vol] 0 10*3/uL Normal 0-5 [facility] Comment on above: Performed By: #### L 100.0100, L500.2500 ####[facility] [address] [place], [address] Platelet mean volume (Bld) [Entitic vol] 9.5 fL Normal 6.2-12.0 [facility] Comment on above: Performed By: #### L 100.0100, L500.2500 ####[facility] [address] [place], [address] Platelets (Bld) [#/Vol] 217 10*3/uL Normal 150-450 [facility] Comment on above: Performed By: #### L 100.0100, L500.2500 ####[facility] [address] [place], [address] RBC (Bld) [#/Vol] 2.81 10*6/uL Low 4.6-6.2 [facility] Comment on above: Performed By: #### L 100.0100, L500.2500 ####[facility] [address] [place], [address] RDW SD 50.4 fl High 35.1-43.9 [facility] Comment on above: Performed By: #### L 100.0100, L500.2500 ####[facility] [address] [place], [address] WBC (Bld) [#/Vol] 9.2 10*3/uL Normal 4.4-11.0 [facility] Comment on above: Performed By: #### L 100.0100, L500.2500 ####[facility] [address] [place], [address] [facility]20[facility]AM GREENBERG ([id number]) 1950 M Date Time Provider Department 11/10/24 ROYCE CARROLL INTWS During your visit today, we recorded the following information about you: Meka Fuentes RN 11/10/2024 11:42 AM Signed Sera with [facility] calls to ask if provider would follow their HH orders for SN, PT, OT, ST following discharge from [facility] for COPD and aspiration pneumonia. Please call Sera back at [phone] JOE Dudley Victor H, MD 11/10/2024 4:30 PM Signed I will follow. Milad Kowalski LPN 11/10/2024 4:42 PM Signed Below left on identified vm. Milad Kowalski LPN Allergies As of Date: 11/10/2024 Noted Allergy Reaction LISINOPRIL 11/15/2019 18 - Angioedema MORPHINE 06/07/2008 12 - Shortness of Breath Comments: rapid heart rate OYSTERS 04/01/2017 8 - GI Upset TYLENOL (ACETAMINOPHEN) 10/16/2005 13 - Dystonia Comments: flushed, cold sweats, shakey Date Reviewed: 10/21/2024 Reviewed by: Shell Patten [employer] - Fully Assessed Reason for Visit: Orders [681] Prescriptions as of 11/10/2024 - ipratropium-albutero l (DUONEB) 0.5 mg-3 mg(2.5 mg base)/3 mL nebu Inhale 3 mL as instructed four times daily. - amLODIPine (NORVASC) 5 mg tablet Take 1 tablet by mouth once daily. - atorvastatin (LIPITOR) 40 mg tablet Take 1 tablet by mouth daily at bedtime. - clopidogrel (PLAVIX) 75 mg tablet Take 1 tablet by mouth once daily. - fluticasone (FLONASE) 50 mcg/actuation nasal spray Use 1 [place] in each nostril two times a day. - metFORMIN (GLUCOPHAGE) 500 mg tablet Take 1 tablet by mouth two times a day with meals. - metoprolol tartrate, short acting, (LOPRESSOR) 50 mg tablet Take 1 tablet by mouth two times a day. - sertraline (ZOLOFT) 100 mg tablet Take 1 tablet by mouth once daily. - primidone (MYSOLINE) 50 mg tablet Take 1 tablet by mouth two times a day. - fluticasone-umeclidi n-vilanter (TRELEGY ELLIPTA) 100-62.5-25 mcg inhalation powder Inhale 1 Puff as instructed once daily. - blood sugar diagnostic (BLOOD GLUCOSE TEST) test strip Test blood sugar(s) 2 times daily. Dx: Other DM Code E11.41 Insulin: No - albuterol HFA (VENTOLIN HFA) 90 mcg/actuation inhaler Inhale 2 Puffs as instructed every 4 hours as needed for wheezing/shortness of breath. - Blood-Glucose Meter monitoring kit Glucose Meter of Choice - Kit - Dx: Other DM Code E11.49 - saw/vit E/sod miguel/lyc/beta/pyg (PROSTATE HEALTH ORAL) Take 3 tablets by mouth once daily. - multivit with minerals/lutein (MULTI-ISABELLE 50 AND OVER ORAL) Take 1 tablet by mouth once daily. - nitroglycerin sublingual (NITROSTAT) 0.4 mg SL tablet Dissolve 1 tablet under the tongue every 5 minutes as needed. - aspirin, enteric coated (ADULT LOW DOSE ASPIRIN) 81 mg EC tablet Take 1 tablet by mouth once daily. 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 Essential hypertension [I10] 11/06/2005 Polyneuropathy in diabetes(357.2) (HCC) [E11.4*11/07/2005 11/22/2013 Late effects of CVA (cerebrovascular accident) *03/17/2007 Other acquired deformity of toe [M20.5X9] 03/23/2009 09/29/2017 Dermatophytosis of nail [B35.1] 03/23/2009 09/29/2017 Type 2 diabetes mellitus with diabetic mononeur*08/23/2010 Adhesive capsulitis of shoulder [M75.00] 10/19/2010 11/20/2011 Tobacco use disorder [F17.200] 05/25/2012 05/23/2023 Rhinitis [J31.0] 11/20/2012 Anxiety disorder [F41.9] 01/31/2009 S/P coronary artery stent placement [Z95.5] 06/06/2015 S/P CABG x 3 [Z95.1] 06/06/2015 Essential tremor [G25.0] 11/23/2015 Stenosis of left carotid artery [I65.22] 04/03/2016 Stage 3a chronic kidney disease (HCC) [N18.31] 04/17/2018 Type 2 diabetes mellitus with diabetic peripher*09/18/2020 At risk for falls [Z91.81] 06/29/2021 Lung nodule < 6cm on CT [AUQ9459] 10/17/2021 07/04/2022 Abnormality of gait [R26.9] 11/13/2021 Lumbar spondylosis [M47.816] 11/13/2021 01/15/2023 History of stroke [Z86.73] 11/13/2021 01/15/2023 Chronic obstructive pulmonary disease with (acu*12/11/2022 Chronic respiratory failure with hypoxia (HCC) *01/15/2023 09/27/2024 Chronic diastolic CHF (congestive heart failure*01/15/2023 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] 05/06/2023 05/06/2023 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, [address] Natriuretic peptide.B prohor arcadio N-Terminal [Mass/Vol]Ordered By: Kashif Rothman on 11-10-2024 Natriuretic peptide B (Bld) [Mass/Vol] 8887 pg/mL High <900 [facility] Comment on above: Heart Failure Unlike ly: < 300 pg/mLHeart Failure Likely< 50 Years: > 450 pg/mL50-75 Years: > 900 pg/mL>75 Years: > 1800 pg/mL Natriuretic peptide.B prohor arcadio N-Terminal [Mass/volume] in Serum or PlasmaOrdered By: Kashif Rothman on 11-10-2024 Natriuretic peptide.B prohormone N-Terminal [Mass/Vol] 8887 pg/mL High <900 [facility] Comment on above: Heart Failure Unlike ly: < 300 pg/mLHeart Failure Likely< 50 Years: > 450 pg/mL50-75 Years: > 900 pg/mL>75 Years: > 1800 pg/mL Basic Metabolic Profile (BMP )on 11-09-2024 BUN/CRE 21.8 RATIO High 10-20 [facility] Comment on above: Performed By: #### L 500.2500, L100.0100 ####[facility] [address] [place], [address] Calcium [Mass/Vol] 8.7 mg/dL Normal 7.6-11.0 [facility] Comment on above: Performed By: #### L 500.2500, L100.0100 ####[facility] [address] [place], [address] Chloride [Moles/Vol] 102 mmol/L Normal 98-108 [facility] Comment on above: Performed By: #### L 500.2500, L100.0100 ####[facility] [address] [place], [address] CO2 [Moles/Vol] 32.5 mmol/L High 21.0-32.0 [facility] Comment on above: Performed By: #### L 500.2500, L100.0100 ####[facility] [address] [place], [address] Creatinine [Mass/Vol] 1.45 mg/dL High 0.70-1.20 [facility] Comment on above: Performed By: #### L 500.2500, L100.0100 ####[facility] [address] [place], [address] ECRCL 49.54 ml/min Low 50-250 [facility] Comment on above: Performed By: #### L 500.2500, L100.0100 ####[facility] [address] [place], [address] GAP 8 Normal 5-15 [facility] Comment on above: Performed By: #### L 500.2500, L100.0100 ####[facility] [address] [place], [address] GFR/1.73 sq M.predicted among non-blacks MDRD (S/P/Bld) [Vol rate/Area] 51 mL/min/{1.73_m2} Low >60 [facility] Comment on above: Result Comment: mL/m in/1.73m2 CKD-EPI Creatinine Equation (2020) Performed By: #### L 500.2500, L100.0100 ####[facility] [address] [place], [address] Glucose [Mass/Vol] 219 mg/dL High 70-99 [facility] Comment on above: Performed By: #### L 500.2500, L100.0100 ####[facility] [address] [place], [address] Potassium [Moles/Vol] 4.2 mmol/L Normal 3.3-5.1 [facility] Comment on above: Performed By: #### L 500.2500, L100.0100 ####[facility] [address] [place], [address] Sodium [Moles/Vol] 142 mmol/L Normal 133-145 [facility] Comment on above: Performed By: #### L 500.2500, L100.0100 ####[facility] [address] [place], [address] Urea nitrogen [Mass/Vol] 32 mg/dL High 4-19 [facility] Comment on above: Performed By: #### L 500.2500, L100.0100 ####[facility] [address] [place], [address] Bedside Glucoseon 11-09-2024 FINGERSTICK GLU 293 mg/dL High 74-106 [facility] Comment on above: Result Comment: DIPAK GEMENT OF PATIENT CARE PER NURSING PROTOCOL Performed By: #### L 501.080 ####[facility] [address] [place], [address] FINGERSTICK GLU 290 mg/dL High 74-106 [facility] [facility] Comment on above: Result Comment: DIPAK GEMENT OF PATIENT CARE PER NURSING PROTOCOL Performed By: #### L 501.080 ####[facility] [address] [place], [address] FINGERSTICK GLU 312 mg/dL High 74-106 [facility] Comment on above: Result Comment: DIPAK GEMENT OF PATIENT CARE PER NURSING PROTOCOL Performed By: #### L 501.080 ####[facility] [address] [place], [address] FINGERSTICK GLU 214 mg/dL High -106 [facility] Comment on above: Result Comment: DIPAK GEMENT OF PATIENT CARE PER NURSING PROTOCOL Performed By: #### L 501.080 ####[facility] [address] [place], [address] CBC W/Diff, Automatedon 04- Absolute Lymph 1.37 X10 3/uL Normal 0.83-4.51 [facility] Comment on above: Performed By: #### L 500.2500, L100.0100 ####[facility] [address] [place], [address] Absolute Neut 5.6 X10 3/uL Normal 2.0-7.7 [facility] Comment on above: Performed By: #### L 500.2500, L100.0100 ####[facility] [address] [place], [address] Basophils/100 WBC (Bld) 0.0 % Normal 0-1 [facility] Comment on above: Performed By: #### L 500.2500, L100.0100 ####[facility] [address] [place], [address] Eosinophils/100 WBC (Bld) 0.3 % Normal 0-5 [facility] Comment on above: Performed By: #### L 500.2500, L100.0100 ####[facility] [address] [place], [address] Erythrocyte distribution width (RBC) [Ratio] 13.6 % Normal 11.6-14.6 [facility] Comment on above: Performed By: #### L 500.2500, L100.0100 ####[facility] [address] [place], [address] Hematocrit (Bld) [Volume fraction] 28.7 % Low 40-54 [facility] Comment on above: Performed By: #### L 500.2500, L100.0100 ####[facility] [address] [place], [address] Hemoglobin (Bld) [Mass/Vol] 9.2 g/dL Low 13.0-16.5 [facility] Comment on above: Performed By: #### L 500.2500, L100.0100 ####[facility] [address] [place], [address] IG% 0.700 Normal 0.0-0.9 [facility] Comment on above: Result Comment: IG% - Immature Granulocytes (promyelocytes, myelocytes andmetamyelocytes) > 1% indicates that a LEFT SHIFT is Present. Performed By: #### L 500.2500, L100.0100 ####[facility] [address] [place], [address] Lymphocytes/100 WBC (Bld) 18.2 % Low 19-41 [facility] Comment on above: Performed By: #### L 500.2500, L100.0100 ####[facility] [address] [place], [address] MCH (RBC) [Entitic mass] 32.7 pg High 27.0-32.0 [facility] Comment on above: Performed By: #### L 500.2500, L100.0100 ####[facility] [address] [place], [address] MCHC (RBC) [Mass/Vol] 32.1 g/dL Normal 32-36 [facility] Comment on above: Performed By: #### L 500.2500, L100.0100 ####[facility] [address] [place], [address] MCV (RBC) [Entitic vol] 102.1 fL High 80-94 [facility] Comment on above: Performed By: #### L 500.2500, L100.0100 ####[facility] [address] [place], [address] Monocytes/100 WBC (Bld) 6.8 % Normal 0-10 [facility] Comment on above: Performed By: #### L 500.2500, L100.0100 ####[facility] [address] [place], [address] Neutrophils/100 WBC (Bld) 74.0 % High 47-70 [facility] Comment on above: Performed By: #### L 500.2500, L100.0100 ####[facility] [address] [place], [address] Nucleated RBC (Bld) [#/Vol] 0 10*3/uL Normal 0-5 [facility] Comment on above: Performed By: #### L 500.2500, L100.0100 ####[facility] [address] [place], [address] Platelet mean volume (Bld) [Entitic vol] 9.9 fL Normal 6.2-12.0 [facility] Comment on above: Performed By: #### L 500.2500, L100.0100 ####[facility] [address] [place], [address] Platelets (Bld) [#/Vol] 206 10*3/uL Normal 150-450 [facility] Comment on above: Performed By: #### L 500.2500, L100.0100 ####[facility] [address] [place], [address] RBC (Bld) [#/Vol] 2.81 10*6/uL Low 4.6-6.2 [facility] Comment on above: Performed By: #### L 500.2500, L100.0100 ####[facility] [address] [place], [address] RDW SD 51.4 fl High 35.1-43.9 [facility] Comment on above: Performed By: #### L 500.2500, L100.0100 ####[facility] [address] [place], [address] WBC (Bld) [#/Vol] 7.5 10*3/uL Normal 4.4-11.0 [facility] Comment on above: Performed By: #### L 500.2500, L100.0100 ####[facility] [address] [place], [address] CTA Chest W/WO Contraston CTA Chest W/WO Contrast Normal [facility] Consultation - Intensiviston 11-09-2024 Consultation - Twisting Press Operator Normal [facility] Basic Metabolic Profile (BMP )on 11-08-2024 BUN/CRE 25.1 RATIO High 10-20 [facility] Comment on above: Performed By: #### L 100.0100, L500.2500 ####[facility] [address] [place], [address] Calcium [Mass/Vol] 8.7 mg/dL Normal 7.6-11.0 [facility] Comment on above: Performed By: #### L 100.0100, L500.2500 ####[facility] [address] [place], [address] Chloride [Moles/Vol] 101 mmol/L Normal 98-108 [facility] Comment on above: Performed By: #### L 100.0100, L500.2500 ####[facility] [address] [place], [address] CO2 [Moles/Vol] 30.1 mmol/L Normal 21.0-32.0 [facility] Comment on above: Performed By: #### L 100.0100, L500.2500 ####[facility] [address] [place], [address] Creatinine [Mass/Vol] 1.51 mg/dL High 0.70-1.20 [facility] Comment on above: Performed By: #### L 100.0100, L500.2500 ####[facility] [address] [place], [address] ECRCL 47.27 ml/min Low 50-250 [facility] Comment on above: Performed By: #### L 100.0100, L500.2500 ####[facility] [address] [place], [address] GAP 10 Normal 5-15 [facility] Comment on above: Performed By: #### L 100.0100, L500.2500 ####[facility] [address] [place], [address] GFR/1.73 sq M.predicted among non-blacks MDRD (S/P/Bld) [Vol rate/Area] 48 mL/min/{1.73_m2} Low >60 [facility] Comment on above: Result Comment: mL/m in/1.73m2 CKD-EPI Creatinine Equation (2020) Performed By: #### L 100.0100, L500.2500 ####[facility] [address] [place], [address] Glucose [Mass/Vol] 207 mg/dL High 70-99 [facility] Comment on above: Performed By: #### L 100.0100, L500.2500 ####[facility] [address] [place], [address] Potassium [Moles/Vol] 4.8 mmol/L Normal 3.3-5.1 [facility] Comment on above: Performed By: #### L 100.0100, L500.2500 ####[facility] [address] [place], [address] Sodium [Moles/Vol] 141 mmol/L Normal 133-145 [facility] Comment on above: Performed By: #### L 100.0100, L500.2500 ####[facility] [address] [place], [address] Urea nitrogen [Mass/Vol] 38 mg/dL High 4-19 [facility] Comment on above: Performed By: #### L 100.0100, L500.2500 ####[facility] [address] [place], [address] Bedside Glucoseon 11-08-2024 FINGERSTICK GLU 326 mg/dL High 74-106 [facility] Comment on above: Result Comment: DIPAK GEMENT OF PATIENT CARE PER NURSING PROTOCOL Performed By: #### L 501.080 ####[facility] [address] [place], [address] FINGERSTICK GLU 224 mg/dL High 74-106 [facility] Comment on above: Result Comment: DIPAK GEMENT OF PATIENT CARE PER NURSING PROTOCOL Performed By: #### L 501.080 ####[facility] [address] [place], [address] FINGERSTICK GLU 264 mg/dL High 74-106 [facility] Comment on above: Result Comment: DIPAK GEMENT OF PATIENT CARE PER NURSING PROTOCOL Performed By: #### L 501.080 ####[facility] [address] [place], [address] FINGERSTICK GLU 179 mg/dL High 74-106 [facility] Comment on above: Result Comment: DIPAK GEMENT OF PATIENT CARE PER NURSING PROTOCOL Performed By: #### L 501.080 ####[facility] [address] [place], [address] FINGERSTICK GLU 202 mg/dL High 74-106 [facility] Comment on above: Result Comment: DIPAK GEMENT OF PATIENT CARE PER NURSING PROTOCOL Performed By: #### L 501.080 ####[facility] [address] [place], [address] CBC W/Diff, Automatedon 10-26 Absolute Lymph 0.92 X10 3/uL Normal 0.83-4.51 [facility] Comment on above: Performed By: #### L 100.0100, L500.2500 ####[facility] [address] [place], [address] Absolute Neut 4.9 X10 3/uL Normal 2.0-7.7 [facility] Comment on above: Performed By: #### L 100.0100, L500.2500 ####[facility] [address] [place], [address] Basophils/100 WBC (Bld) 0.2 % Normal 0-1 [facility] Comment on above: Performed By: #### L 100.0100, L500.2500 ####[facility] [address] [place], [address] Eosinophils/100 WBC (Bld) 0.0 % Normal 0-5 [facility] Comment on above: Performed By: #### L 100.0100, L500.2500 ####[facility] [address] [place], [address] Erythrocyte distribution width (RBC) [Ratio] 13.9 % Normal 11.6-14.6 [facility] Comment on above: Performed By: #### L 100.0100, L500.2500 ####[facility] [address] [place], [address] Hematocrit (Bld) [Volume fraction] 29.2 % Low 40-54 [facility] Comment on above: Performed By: #### L 100.0100, L500.2500 ####[facility] [address] [place], [address] Hemoglobin (Bld) [Mass/Vol] 9.2 g/dL Low 13.0-16.5 [facility] Comment on above: Performed By: #### L 100.0100, L500.2500 ####[facility] [address] [place], [address] IG% 0.300 Normal 0.0-0.9 [facility] Comment on above: Result Comment: IG% - Immature Granulocytes (promyelocytes, myelocytes andmetamyelocytes) > 1% indicates that a LEFT SHIFT is Present. Performed By: #### L 100.0100, L500.2500 ####[facility] [address] [place], [address] Lymphocytes/100 WBC (Bld) 14.7 % Low 19-41 [facility] Comment on above: Performed By: #### L 100.0100, L500.2500 ####[facility] [address] [place], [address] MCH (RBC) [Entitic mass] 32.5 pg High 27.0-32.0 [facility] Comment on above: Performed By: #### L 100.0100, L500.2500 ####[facility] [address] [place], [address] MCHC (RBC) [Mass/Vol] 31.5 g/dL Low 32-36 [facility] Comment on above: Performed By: #### L 100.0100, L500.2500 ####[facility] [address] [place], [address] MCV (RBC) [Entitic vol] 103.2 fL High 80-94 [facility] Comment on above: Performed By: #### L 100.0100, L500.2500 ####[facility] [address] [place], [address] Monocytes/100 WBC (Bld) 5.6 % Normal 0-10 [facility] Comment on above: Performed By: #### L 100.0100, L500.2500 ####[facility] [address] [place], [address] Neutrophils/100 WBC (Bld) 79.2 % High 47-70 [facility] Comment on above: Performed By: #### L 100.0100, L500.2500 ####[facility] [address] [place], [address] Nucleated RBC (Bld) [#/Vol] 0 10*3/uL Normal 0-5 [facility] Comment on above: Performed By: #### L 100.0100, L500.2500 ####[facility] [address] [place], [address] Platelet mean volume (Bld) [Entitic vol] 9.5 fL Normal 6.2-12.0 [facility] Comment on above: Performed By: #### L 100.0100, L500.2500 ####[facility] [address] [place], [address] Platelets (Bld) [#/Vol] 195 10*3/uL Normal 150-450 [facility] Comment on above: Performed By: #### L 100.0100, L500.2500 ####[facility] [address] [place], [address] RBC (Bld) [#/Vol] 2.83 10*6/uL Low 4.6-6.2 [facility] Comment on above: Performed By: #### L 100.0100, L500.2500 ####[facility] [address] [place], [address] RDW SD 53.1 fl High 35.1-43.9 [facility] Comment on above: Performed By: #### L 100.0100, L500.2500 ####[facility] [address] [place], [address] WBC (Bld) [#/Vol] 6.2 10*3/uL Normal 4.4-11.0 [facility] Comment on above: Performed By: #### L 100.0100, L500.2500 ####[facility] [address] [place], [address] Consultation - Cardiologyon 11-08-2024 Consultation - Cardiology Normal [facility] Basic Metabolic Profile (BMP )on 11-07-2024 BUN/CRE 24.4 RATIO High 10-20 [facility] Comment on above: Performed By: #### L 100.0100, L500.2500 ####[facility] [address] [place], [address] Calcium [Mass/Vol] 8.6 mg/dL Normal 7.6-11.0 [facility] Comment on above: Performed By: #### L 100.0100, L500.2500 ####[facility] [address] [place], [address] Chloride [Moles/Vol] 103 mmol/L Normal 98-108 [facility] Comment on above: Performed By: #### L 100.0100, L500.2500 ####[facility] [address] [place], [address] CO2 [Moles/Vol] 27.8 mmol/L Normal 21.0-32.0 [facility] Comment on above: Performed By: #### L 100.0100, L500.2500 ####[facility] [address] [place], [address] Creatinine [Mass/Vol] 1.56 mg/dL High 0.70-1.20 [facility] Comment on above: Performed By: #### L 100.0100, L500.2500 ####[facility] [address] [place], [address] ECRCL 46.35 ml/min Low 50-250 [facility] Comment on above: Performed By: #### L 100.0100, L500.2500 ####[facility] [address] [place], [address] GAP 13 Normal 5-15 [facility] Comment on above: Performed By: #### L 100.0100, L500.2500 ####[facility] [address] [place], [address] GFR/1.73 sq M.predicted among non-blacks MDRD (S/P/Bld) [Vol rate/Area] 47 mL/min/{1.73_m2} Low >60 [facility] Comment on above: Result Comment: mL/m in/1.73m2 CKD-EPI Creatinine Equation (2020) Performed By: #### L 100.0100, L500.2500 ####[facility] [address] [place], [address] Glucose [Mass/Vol] 177 mg/dL High 70-99 [facility] Comment on above: Performed By: #### L 100.0100, L500.2500 ####[facility] [address] [place], [address] Potassium [Moles/Vol] 4.6 mmol/L Normal 3.3-5.1 [facility] Comment on above: Performed By: #### L 100.0100, L500.2500 ####[facility] [address] [place], [address] Sodium [Moles/Vol] 143 mmol/L Normal 133-145 [facility] Comment on above: Performed By: #### L 100.0100, L500.2500 ####[facility] [address] [place], [address] Urea nitrogen [Mass/Vol] 38 mg/dL High 4-19 [facility] Comment on above: Performed By: #### L 100.0100, L500.2500 ####[facility] [address] [place], [address] Bedside Glucoseon 11-07-2024 FINGERSTICK GLU 170 mg/dL High 74-106 [facility] Comment on above: Result Comment: DIPAK GEMENT OF PATIENT CARE PER NURSING PROTOCOL Performed By: #### L 501.080 ####[facility] [address] [place], [address] FINGERSTICK GLU 215 mg/dL High 74-106 [facility] Comment on above: Result Comment: DIPAK GEMENT OF PATIENT CARE PER NURSING PROTOCOL Performed By: #### L 501.080 ####[facility] [address] [place], [address] FINGERSTICK GLU 173 mg/dL High 74-106 [facility] Comment on above: Result Comment: DIPAK GEMENT OF PATIENT CARE PER NURSING PROTOCOL Performed By: #### L 501.080 ####[facility] [address] [place], [address] FINGERSTICK GLU 189 mg/dL High 74-106 [facility] Comment on above: Result Comment: DIPAK GEMENT OF PATIENT CARE PER NURSING PROTOCOL Performed By: #### L 501.080 ####[facility] [address] [place], [address] CBC W/Diff, Automatedon 04-1 3-2025 Absolute Lymph 1.09 X10 3/uL Normal 0.83-4.51 [facility] Comment on above: Performed By: #### L 100.0100, L500.2500 ####[facility] [address] [place], [address] Absolute Neut 5.7 X10 3/uL Normal 2.0-7.7 [facility] Comment on above: Performed By: #### L 100.0100, L500.2500 ####[facility] [address] [place], [address] Basophils/100 WBC (Bld) 0.0 % Normal 0-1 [facility] Comment on above: Performed By: #### L 100.0100, L500.2500 ####[facility] [address] [place], [address] Eosinophils/100 WBC (Bld) 0.0 % Normal 0-5 [facility] Comment on above: Performed By: #### L 100.0100, L500.2500 ####[facility] [address] [place], [address] Erythrocyte distribution width (RBC) [Ratio] 13.9 % Normal 11.6-14.6 [facility] Comment on above: Performed By: #### L 100.0100, L500.2500 ####[facility] [address] [place], [address] Hematocrit (Bld) [Volume fraction] 27.9 % Low 40-54 [facility] Comment on above: Performed By: #### L 100.0100, L500.2500 ####[facility] [address] [place], [address] Hemoglobin (Bld) [Mass/Vol] 8.8 g/dL Low 13.0-16.5 [facility] Comment on above: Performed By: #### L 100.0100, L500.2500 ####[facility] [address] [place], [address] IG% 0.400 Normal 0.0-0.9 [facility] Comment on above: Result Comment: IG% - Immature Granulocytes (promyelocytes, myelocytes andmetamyelocytes) > 1% indicates that a LEFT SHIFT is Present. Performed By: #### L 100.0100, L500.2500 ####[facility] [address] [place], [address] Lymphocytes/100 WBC (Bld) 14.8 % Low 19-41 [facility] Comment on above: Performed By: #### L 100.0100, L500.2500 ####[facility] [address] [place], [address] MCH (RBC) [Entitic mass] 32.6 pg High 27.0-32.0 [facility] Comment on above: Performed By: #### L 100.0100, L500.2500 ####[facility] [address] [place], [address] MCHC (RBC) [Mass/Vol] 31.5 g/dL Low 32-36 [facility] Comment on above: Performed By: #### L 100.0100, L500.2500 ####[facility] [address] [place], [address] MCV (RBC) [Entitic vol] 103.3 fL High 80-94 [facility] Comment on above: Performed By: #### L 100.0100, L500.2500 ####[facility] [address] [place], [address] Monocytes/100 WBC (Bld) 6.8 % Normal 0-10 [facility] Comment on above: Performed By: #### L 100.0100, L500.2500 ####[facility] [address] [place], [address] Neutrophils/100 WBC (Bld) 78.0 % High 47-70 [facility] Comment on above: Performed By: #### L 100.0100, L500.2500 ####[facility] [address] [place], [address] Nucleated RBC (Bld) [#/Vol] 0.3 10*3/uL Normal 0-5 [facility] Comment on above: Performed By: #### L 100.0100, L500.2500 ####[facility] [address] [place], [address] Platelet mean volume (Bld) [Entitic vol] 9.9 fL Normal 6.2-12.0 [facility] Comment on above: Performed By: #### L 100.0100, L500.2500 ####[facility] [address] [place], [address] Platelets (Bld) [#/Vol] 208 10*3/uL Normal 150-450 [facility] Comment on above: Performed By: #### L 100.0100, L500.2500 ####[facility] [address] [place], [address] RBC (Bld) [#/Vol] 2.70 10*6/uL Low 4.6-6.2 [facility] Comment on above: Performed By: #### L 100.0100, L500.2500 ####[facility] [address] [place], [address] RDW SD 53.1 fl High 35.1-43.9 [facility] Comment on above: Performed By: #### L 100.0100, L500.2500 ####[facility] [address] [place], [address] WBC (Bld) [#/Vol] 7.4 10*3/uL Normal 4.4-11.0 [facility] Comment on above: Performed By: #### L 100.0100, L500.2500 ####[facility] [address] [place], [address] Basic Metabolic Profile (BMP )on 11-06-2024 BUN/CRE 22.9 RATIO High 10-20 [facility] Comment on above: Performed By: #### L 500.2500, L100.0100 ####[facility] [address] [place], [address] Calcium [Mass/Vol] 8.6 mg/dL Normal 7.6-11.0 [facility] Comment on above: Performed By: #### L 500.2500, L100.0100 ####[facility] [address] [place], [address] Chloride [Moles/Vol] 101 mmol/L Normal 98-108 [facility] Comment on above: Performed By: #### L 500.2500, L100.0100 ####[facility] [address] [place], [address] CO2 [Moles/Vol] 28.8 mmol/L Normal 21.0-32.0 [facility] Comment on above: Performed By: #### L 500.2500, L100.0100 ####[facility] [address] [place], [address] Creatinine [Mass/Vol] 1.58 mg/dL High 0.70-1.20 [facility] Comment on above: Performed By: #### L 500.2500, L100.0100 ####[facility] [address] [place], [address] ECRCL 45.88 ml/min Low 50-250 [facility] Comment on above: Performed By: #### L 500.2500, L100.0100 ####[facility] [address] [place], [address] GAP 13 Normal 5-15 [facility] Comment on above: Performed By: #### L 500.2500, L100.0100 ####[facility] [address] [place], [address] GFR/1.73 sq M.predicted among non-blacks MDRD (S/P/Bld) [Vol rate/Area] 46 mL/min/{1.73_m2} Low >60 [facility] Comment on above: Result Comment: mL/m in/1.73m2 CKD-EPI Creatinine Equation (2020) Performed By: #### L 500.2500, L100.0100 ####[facility] [address] [place], [address] Glucose [Mass/Vol] 183 mg/dL High 70-99 [facility] Comment on above: Performed By: #### L 500.2500, L100.0100 ####[facility] [address] [place], [address] Potassium [Moles/Vol] 4.1 mmol/L Normal 3.3-5.1 [facility] Comment on above: Performed By: #### L 500.2500, L100.0100 ####[facility] [address] [place], [address] Sodium [Moles/Vol] 143 mmol/L Normal 133-145 [facility] Comment on above: Performed By: #### L 500.2500, L100.0100 ####[facility] [address] [place], [address] Urea nitrogen [Mass/Vol] 36 mg/dL High 4-19 [facility] Comment on above: Performed By: #### L 500.2500, L100.0100 ####[facility] [address] [place], [address] Bedside Glucoseon 11-06-2024 FINGERSTICK GLU 193 mg/dL High 74-106 [facility] Comment on above: Result Comment: DIPAK GEMENT OF PATIENT CARE PER NURSING PROTOCOL Performed By: #### L 501.080 ####[facility] [address] [place], [address] FINGERSTICK GLU 196 mg/dL High 74-106 [facility] Comment on above: Result Comment: DIPAK GEMENT OF PATIENT CARE PER NURSING PROTOCOL Performed By: #### L 501.080 ####[facility] [address] [place], [address] FINGERSTICK GLU 174 mg/dL High 74-106 [facility] Comment on above: Result Comment: DIPAK GEMENT OF PATIENT CARE PER NURSING PROTOCOL Performed By: #### L 501.080 ####[facility] [address] [place], [address] FINGERSTICK GLU 202 mg/dL High [facility]106 [facility] Comment on above: Result Comment: DIPAK GEMENT OF PATIENT CARE PER NURSING PROTOCOL Performed By: #### L 501.080 ####[facility] [address] [place], [address] CBC W/Diff, Automatedon 04- 2-2024 Absolute Lymph 0.90 X10 3/uL Normal 0.83-4.51 [facility] Comment on above: Performed By: #### L 500.2500, L100.0100 ####[facility] [address] [place], [address] Absolute Neut 6.7 X10 3/uL Normal 2.0-7.7 [facility] Comment on above: Performed By: #### L 500.2500, L100.0100 ####[facility] [address] [place], [address] Basophils/100 WBC (Bld) 0.0 % Normal 0-1 [facility] Comment on above: Performed By: #### L 500.2500, L100.0100 ####[facility] [address] [place], [address] Eosinophils/100 WBC (Bld) 0.0 % Normal 0-5 [facility] Comment on above: Performed By: #### L 500.2500, L100.0100 ####[facility] [address] [place], [address] Erythrocyte distribution width (RBC) [Ratio] 14.2 % Normal 11.6-14.6 [facility] Comment on above: Performed By: #### L 500.2500, L100.0100 ####[facility] [address] [place], [address] Hematocrit (Bld) [Volume fraction] 27.3 % Low 40-54 [facility] Comment on above: Performed By: #### L 500.2500, L100.0100 ####[facility] [address] [place], [address] Hemoglobin (Bld) [Mass/Vol] 8.8 g/dL Low 13.0-16.5 [facility] Comment on above: Performed By: #### L 500.2500, L100.0100 ####[facility] [address] [place], [address] IG% 0.200 Normal 0.0-0.9 [facility] Comment on above: Result Comment: IG% - Immature Granulocytes (promyelocytes, myelocytes andmetamyelocytes) > 1% indicates that a LEFT SHIFT is Present. Performed By: #### L 500.2500, L100.0100 ####[facility] [address] [place], [address] Lymphocytes/100 WBC (Bld) 11.0 % Low 19-41 [facility] Comment on above: Performed By: #### L 500.2500, L100.0100 ####[facility] [address] [place], [address] MCH (RBC) [Entitic mass] 33.2 pg High 27.0-32.0 [facility] Comment on above: Performed By: #### L 500.2500, L100.0100 ####[facility] [address] [place], [address] MCHC (RBC) [Mass/Vol] 32.2 g/dL Normal 32-36 [facility] Comment on above: Performed By: #### L 500.2500, L100.0100 ####[facility] [address] [place], [address] MCV (RBC) [Entitic vol] 103.0 fL High 80-94 [facility] Comment on above: Performed By: #### L 500.2500, L100.0100 ####[facility] [address] [place], [address] Monocytes/100 WBC (Bld) 6.5 % Normal 0-10 [facility] Comment on above: Performed By: #### L 500.2500, L100.0100 ####[facility] [address] [place], [address] Neutrophils/100 WBC (Bld) 82.3 % High 47-70 [facility] Comment on above: Performed By: #### L 500.2500, L100.0100 ####[facility] [address] [place], [address] Nucleated RBC (Bld) [#/Vol] 0 10*3/uL Normal 0-5 [facility] Comment on above: Performed By: #### L 500.2500, L100.0100 ####[facility] [address] [place], [address] Platelet mean volume (Bld) [Entitic vol] 10.1 fL Normal 6.2-12.0 [facility] Comment on above: Performed By: #### L 500.2500, L100.0100 ####[facility] [address] [place], [address] Platelets (Bld) [#/Vol] 205 10*3/uL Normal 150-450 [facility] Comment on above: Performed By: #### L 500.2500, L100.0100 ####[facility] [address] [place], [address] RBC (Bld) [#/Vol] 2.65 10*6/uL Low 4.6-6.2 [facility] Comment on above: Performed By: #### L 500.2500, L100.0100 ####[facility] [address] [place], [address] RDW SD 53.4 fl High 35.1-43.9 [facility] Comment on above: Performed By: #### L 500.2500, L100.0100 ####[facility] [address] [place], [address] WBC (Bld) [#/Vol] 8.2 10*3/uL Normal 4.4-11.0 [facility] Comment on above: Performed By: #### L 500.2500, L100.0100 ####[facility] [address] [place], [address] Basic Metabolic Profile (BMP )on 11-05-2024 BUN/CRE 21.8 RATIO High 10-20 [facility] Comment on above: Performed By: #### L 501.2300, L500.2500 ####[facility] [address] [place], [address] Calcium [Mass/Vol] 8.4 mg/dL Normal 7.6-11.0 [facility] Comment on above: Performed By: #### L 501.2300, L500.2500 ####[facility] [address] [place], [address] Chloride [Moles/Vol] 102 mmol/L Normal 98-108 [facility] Comment on above: Performed By: #### L 501.2300, L500.2500 ####[facility] [address] [place], [address] CO2 [Moles/Vol] 27.9 mmol/L Normal 21.0-32.0 [facility] Comment on above: Performed By: #### L 501.2300, L500.2500 ####[facility] [address] [place], [address] Creatinine [Mass/Vol] 1.63 mg/dL High 0.70-1.20 [facility] Comment on above: Performed By: #### L 501.2300, L500.2500 ####[facility] [address] [place], [address] ECRCL 45.61 ml/min Low 50-250 [facility] Comment on above: Performed By: #### L 501.2300, L500.2500 ####[facility] [address] [place], [address] GAP 12 Normal 5-15 [facility] Comment on above: Performed By: #### L 501.2300, L500.2500 ####[facility] [address] [place], [address] GFR/1.73 sq M.predicted among non-blacks MDRD (S/P/Bld) [Vol rate/Area] 44 mL/min/{1.73_m2} Low >60 [facility] Comment on above: Result Comment: mL/m in/1.73m2 CKD-EPI Creatinine Equation (2020) Performed By: #### L 501.2300, L500.2500 ####[facility] [address] [place], [address] Glucose [Mass/Vol] 187 mg/dL High 70-99 [facility] Comment on above: Performed By: #### L 501.2300, L500.2500 ####[facility] [address] [place], [address] Potassium [Moles/Vol] 4.4 mmol/L Normal 3.3-5.1 [facility] Comment on above: Performed By: #### L 501.2300, L500.2500 ####[facility] [address] [place], [address] Sodium [Moles/Vol] 142 mmol/L Normal 133-145 [facility] Comment on above: Performed By: #### L 501.2300, L500.2500 ####[facility] [address] [place], [address] Urea nitrogen [Mass/Vol] 36 mg/dL High 4-19 [facility] Comment on above: Performed By: #### L 501.2300, L500.2500 ####[facility] [address] [place], [address] Bedside Glucoseon 11-05-2024 FINGERSTICK GLU 160 mg/dL High 74-106 [facility] Comment on above: Result Comment: DIPAK GEMENT OF PATIENT CARE PER NURSING PROTOCOL Performed By: #### L 501.080 ####[facility] [address] [place], [address] FINGERSTICK GLU 176 mg/dL High 74-106 [facility] Comment on above: Result Comment: DIPAK GEMENT OF PATIENT CARE PER NURSING PROTOCOL Performed By: #### L 501.080 ####[facility] [address] [place], [address] FINGERSTICK GLU 191 mg/dL High 74-106 [facility] Comment on above: Result Comment: DIPAK GEMENT OF PATIENT CARE PER NURSING PROTOCOL Performed By: #### L 501.080 ####[facility] [address] [place], [address] FINGERSTICK GLU 192 mg/dL High 74-106 [facility] Comment on above: Result Comment: DIPAK SAUER OF PATIENT CARE PER NURSING PROTOCOL Performed By: #### L 501.080 ####[facility] [address] [place], [address] CBC W/Diff, Automatedon 04 Absolute Lymph 0.80 X10 3/uL Low 0.83-4.51 [facility] Comment on above: Performed By: #### L 100.0100 ####[facility] [address] [place], [address] Absolute Neut 5.8 X10 3/uL Normal 2.0-7.7 [facility] Comment on above: Performed By: #### L 100.0100 ####[facility] [address] [place], [address] Basophils/100 WBC (Bld) 0.0 % Normal 0-1 [facility] Comment on above: Performed By: #### L 100.0100 ####[facility] [address] [place], [address] Eosinophils/100 WBC (Bld) 0.0 % Normal 0-5 [facility] Comment on above: Performed By: #### L 100.0100 ####[facility] [address] [place], [address] Erythrocyte distribution width (RBC) [Ratio] 14.0 % Normal 11.6-14.6 [facility] Comment on above: Performed By: #### L 100.0100 ####[facility] [address] [place], [address] Hematocrit (Bld) [Volume fraction] 27.1 % Low 40-54 [facility] Comment on above: Performed By: #### L 100.0100 ####[facility] [address] [place], [address] Hemoglobin (Bld) [Mass/Vol] 8.7 g/dL Low 13.0-16.5 [facility] Comment on above: Performed By: #### L 100.0100 ####[facility] [address] [place], [address] IG% 0.300 Normal 0.0-0.9 [facility] Comment on above: Result Comment: IG% - Immature Granulocytes (promyelocytes, myelocytes andmetamyelocytes) > 1% indicates that a LEFT SHIFT is Present. Performed By: #### L 100.0100 ####[facility] [address] [place], [address] Lymphocytes/100 WBC (Bld) 11.1 % Low 19-41 [facility] Comment on above: Performed By: #### L 100.0100 ####[facility] [address] [place], [address] MCH (RBC) [Entitic mass] 33.0 pg High 27.0-32.0 [facility] Comment on above: Performed By: #### L 100.0100 ####[facility] [address] [place], [address] MCHC (RBC) [Mass/Vol] 32.1 g/dL Normal 32-36 [facility] Comment on above: Performed By: #### L 100.0100 ####[facility] [address] [place], [address] MCV (RBC) [Entitic vol] 102.7 fL High 80-94 [facility] Comment on above: Performed By: #### L 100.0100 ####[facility] [address] [place], [address] Monocytes/100 WBC (Bld) 7.9 % Normal 0-10 [facility] Comment on above: Performed By: #### L 100.0100 ####[facility] [address] [place], [address] Neutrophils/100 WBC (Bld) 80.7 % High 47-70 [facility] Comment on above: Performed By: #### L 100.0100 ####[facility] [address] [place], [address] Nucleated RBC (Bld) [#/Vol] 0 10*3/uL Normal 0-5 [facility] Comment on above: Performed By: #### L 100.0100 ####[facility] [address] [place], [address] Platelet mean volume (Bld) [Entitic vol] 9.8 fL Normal 6.2-12.0 [facility] Comment on above: Performed By: #### L 100.0100 ####[facility] [address] [place], [address] Platelets (Bld) [#/Vol] 188 10*3/uL Normal 150-450 [facility] Comment on above: Performed By: #### L 100.0100 ####[facility] [address] [place], [address] RBC (Bld) [#/Vol] 2.64 10*6/uL Low 4.6-6.2 [facility] Comment on above: Performed By: #### L 100.0100 ####[facility] [address] [place], [address] RDW SD 52.8 fl High 35.1-43.9 [facility] Comment on above: Performed By: #### L 100.0100 ####[facility] [address] [place], [address] WBC (Bld) [#/Vol] 7.2 10*3/uL Normal 4.4-11.0 [facility] Comment on above: Performed By: #### L 100.0100 ####[facility] [address] [place], [address] Modified Barium Swallow Stud yon 11-05-2024 Modified Barium Swallow Study Normal [facility] Phosphoruson 11-05-2024 Phosphate [Mass/Vol] 4.8 mg/dL High 2.7-4.5 [facility] Comment on above: Performed By: #### L 501.2300, L500.2500 ####[facility] [address] [place], [address] Serum phosphorus measurement Ordered By: Kam Tucker on 11-05-2024 Phosphorus Level 4.8 mg/dL High 2.7-4.5 [facility] 12 Lead EKGon 11-04-2024 12 Lead EKG Normal [facility] Arterial patency Wrist arter y --pre arterial punctureOrdered By: Kam Tucker on 11-04-2024 Helen Test Positive [facility] Assessment of wrist artery p atency prior to arterial punctureOrdered By: Kam Tucker on 11-04-2024 Arterial patency Wrist artery --pre arterial puncture Positive [facility] Base excess Calc (BldV) [Mol es/Vol]Ordered By: Kam Tucker on 11-04-2024 Blood Gas Base Excess 7 mmol/L High -2-2 [facility] Basic Metabolic Profile (BMP )on 11-04-2024 BUN/CRE 21.3 RATIO High 10-20 [facility] Comment on above: Order Comment: hyper kalemia Performed By: #### L 500.2500 ####[facility] [address] [place], [address] Calcium [Mass/Vol] 8.7 mg/dL Normal 7.6-11.0 [facility] Comment on above: Order Comment: hyper kalemia Performed By: #### L 500.2500 ####[facility] [address] [place], [address] Chloride [Moles/Vol] 100 mmol/L Normal 98-108 [facility] Comment on above: Order Comment: hyper kalemia Performed By: #### L 500.2500 ####[facility] [address] [place], [address] CO2 [Moles/Vol] 26.0 mmol/L Normal 21.0-32.0 [facility] Comment on above: Order Comment: hyper kalemia Performed By: #### L 500.2500 ####[facility] [address] [place], [address] Creatinine [Mass/Vol] 1.51 mg/dL High 0.70-1.20 [facility] Comment on above: Order Comment: hyper kalemia Performed By: #### L 500.2500 ####[facility] [address] [place], [address] ECRCL 49.24 ml/min Low 50-250 [facility] Comment on above: Order Comment: hyper kalemia Performed By: #### L 500.2500 ####[facility] [address] [place], [address] GAP 11 Normal 5-15 [facility] Comment on above: Order Comment: hyper kalemia Performed By: #### L 500.2500 ####[facility] [address] [place], [address] GFR/1.73 sq M.predicted among non-blacks MDRD (S/P/Bld) [Vol rate/Area] 48 mL/min/{1.73_m2} Low >60 [facility] Comment on above: Order Comment: hyper kalemia Result Comment: mL/m in/1.73m2 CKD-EPI Creatinine Equation (2020) Performed By: #### L 500.2500 ####[facility] [address] [place], [address] Glucose [Mass/Vol] 209 mg/dL High 70-99 [facility] Comment on above: Order Comment: hyper kalemia Performed By: #### L 500.2500 ####[facility] [address] [place], [address] Potassium [Moles/Vol] 5.5 mmol/L High 3.3-5.1 [facility] Comment on above: Order Comment: hyper kalemia Performed By: #### L 500.2500 ####[facility] [address] [place], [address] Sodium [Moles/Vol] 137 mmol/L Normal 133-145 [facility] Comment on above: Order Comment: hyper kalemia Performed By: #### L 500.2500 ####[facility] [address] [place], [address] Urea nitrogen [Mass/Vol] 32 mg/dL High 4-19 [facility] Comment on above: Order Comment: hyper kalemia Performed By: #### L 500.2500 ####[facility] [address] [place], [address] Bedside Glucoseon 11-04-2024 FINGERSTICK GLU 184 mg/dL High 74-106 [facility] Comment on above: Result Comment: DIPAK GEMENT OF PATIENT CARE PER NURSING PROTOCOL Performed By: #### L 501.080 ####[facility] [address] [place], [address] FINGERSTICK GLU 168 mg/dL High 74-106 [facility] Comment on above: Result Comment: DIPAK GEMENT OF PATIENT CARE PER NURSING PROTOCOL Performed By: #### L 501.080 ####[facility] [address] [place], [address] FINGERSTICK GLU 163 mg/dL High 74-106 [facility] Comment on above: Result Comment: DIPAK GEMENT OF PATIENT CARE PER NURSING PROTOCOL Performed By: #### L 501.080 ####[facility] [address] [place], [address] FINGERSTICK GLU 176 mg/dL High 74-106 [facility] Comment on above: Result Comment: DIPAK GEMENT OF PATIENT CARE PER NURSING PROTOCOL Performed By: #### L 501.080 ####[facility] [address] [place], [address] Bilirubin, totalOrdered By: Kam Tucker on 11-04-2024 Bilirubin [Mass/Vol] 0.29 mg/dL 0.00-1.30 [facility] TEST Positive Normal [facility] Comment on above: Performed By: #### L 9000.0800 ####[facility] [address] [place], [address] Base excess Calc (Bld) [Moles/Vol] 7 mmol/L High -2 to +2 [facility] Comment on above: Performed By: #### L 9000.0800 ####[facility] [address] [place], [address] Blood Gas Type ART Normal [facility] Comment on above: Performed By: #### L 9000.0800 ####[facility] [address] [place], [address] CO2 [Moles/Vol] 35 mmol/L [facility] Comment on above: Performed By: #### L 9000.0800 ####[facility] [address] [place], [address] FI02 40.0 [facility] Comment on above: Performed By: #### L 9000.0800 ####[facility] [address] [place], [address] HCO3 (Bld) [Moles/Vol] 33.2 mmol/L High 22-26 [facility] Comment on above: Performed By: #### L 9000.0800 ####[facility] [address] [place], [address] Mode Not entered [facility] Comment on above: Performed By: #### L 9000.0800 ####[facility] [address] [place], [address] O2 Delivery Dev BiPAP Normal [facility] Comment on above: Performed By: #### L 9000.0800 ####[facility] [address] [place], [address] pCO2 63.5 mmHg High 35-45 [facility] Comment on above: Performed By: #### L 9000.0800 ####[facility] [address] [place], [address] PEEP 8 Normal [facility] Comment on above: Performed By: #### L 9000.0800 ####[facility] [address] [place], [address] pH (Bld) 7.33 [pH] Low 7.35-7.45 [facility] Comment on above: Performed By: #### L 9000.0800 ####[facility] [address] [place], [address] PIP 16 Normal [facility] Comment on above: Performed By: #### L 9000.0800 ####[facility] [address] [place], [address] PO2 92 mmHG Normal 75-100 [facility] Comment on above: Performed By: #### L 9000.0800 ####[facility] [address] [place], [address] [address] 14 Normal [facility] Comment on above: Performed By: #### L 9000.0800 ####[facility] [address] [place], [address] SITE R Radial Normal [facility] Comment on above: Performed By: #### L 9000.0800 ####[facility] [address] [place], [address] SO2 96 Normal 95-99 [facility] Comment on above: Performed By: #### L 8999.0800 ####[facility] [address] [place], [address] HELEN TEST Positive Normal [facility] Comment on above: Performed By: #### L 8999.0800 ####[facility] [address] [place], [address] Base excess Calc (Bld) [Moles/Vol] 9 mmol/L High -2 to +2 [facility] Comment on above: Performed By: #### L 8999.0800 ####[facility] [address] [place], [address] Blood Gas Type ART Normal [facility] Comment on above: Performed By: #### L 8999.0800 ####[facility] [address] [place], [address] CO2 [Moles/Vol] 37 mmol/L Normal [facility] Comment on above: Performed By: #### L 8999.0800 ####[facility] [address] [place], [address] FI02 50.0 Normal [facility] Comment on above: Performed By: #### L 0.0800 ####[facility] [address] [place], [address] HCO3 (Bld) [Moles/Vol] 34.7 mmol/L High 22-26 [facility] Comment on above: Performed By: #### L 8999.0800 ####[facility] [address] [place], [address] Mode Not entered Normal [facility] Comment on above: Performed By: #### L 0.0800 ####[facility] [address] [place], [address] O2 Delivery Dev CPAP Normal [facility] Comment on above: Performed By: #### L 9000.0800 ####[facility] [address] [place], [address] pCO2 66.8 mmHg High 35-45 [facility] Comment on above: Performed By: #### L 9000.0800 ####[facility] [address] [place], [address] pH (Bld) 7.32 [pH] Low 7.35-7.45 [facility] Comment on above: Performed By: #### L 9000.0800 ####[facility] [address] [place], [address] PO2 106 mmHG High 75-100 [facility] Comment on above: Performed By: #### L 9000.0800 ####[facility] [address] [place], [address] SITE R Radial Normal [facility] Comment on above: Performed By: #### L 9000.0800 ####[facility] [address] [place], [address] SO2 97 Normal 95-99 [facility] Comment on above: Performed By: #### L 9000.0800 ####[facility] [address] [place], [address] Blood base excess determinat ionOrdered By: Kam Tucker on 11-04-2024 Base excess Calc (BldV) [Moles/Vol] 7 mmol/L High -2-2 [facility] Blood bicarbonate measuremen tOrdered By: Kam Tucker on 11-04-2024 Blood Gas Bicarbonate Actual 33.2 mmol/L High 22-26 [facility] HCO3 (Bld) [Moles/Vol] 33.2 mmol/L High 22-26 [facility] CBC W/Diff, Automatedon 10-26 Absolute Lymph 0.47 X10 3/uL Low 0.83-4.51 [facility] Comment on above: Performed By: #### L 501.2300, L100.0100, L500.4100, L500.4050 ####[facility] [address] [place], [address] Absolute Neut 11.5 X10 3/uL High 2.0-7.7 [facility] Comment on above: Performed By: #### L 501.2300, L100.0100, L500.4100, L500.4050 ####[facility] [address] [place], [address] Basophils/100 WBC (Bld) 0.1 % Normal 0-1 [facility] Comment on above: Performed By: #### L 501.2300, L100.0100, L500.4100, L500.4050 ####[facility] [address] [place], [address] Eosinophils/100 WBC (Bld) 0.0 % Normal 0-5 [facility] Comment on above: Performed By: #### L 501.2300, L100.0100, L500.4100, L500.4050 ####[facility] [address] [place], [address] Erythrocyte distribution width (RBC) [Ratio] 14.2 % Normal 11.6-14.6 [facility] Comment on above: Performed By: #### L 501.2300, L100.0100, L500.4100, L500.4050 ####[facility] [address] [place], [address] Hematocrit (Bld) [Volume fraction] 27.8 % Low 40-54 [facility] Comment on above: Performed By: #### L 501.2300, L100.0100, L500.4100, L500.4050 ####[facility] [address] [place], [address] Hemoglobin (Bld) [Mass/Vol] 9.0 g/dL Low 13.0-16.5 [facility] Comment on above: Performed By: #### L 501.2300, L100.0100, L500.4100, L500.4050 ####[facility] [address] [place], [address] IG% 0.400 Normal 0.0-0.9 [facility] Comment on above: Result Comment: IG% - Immature Granulocytes (promyelocytes, myelocytes andmetamyelocytes) > 1% indicates that a LEFT SHIFT is Present. Performed By: #### L 501.2300, L100.0100, L500.4100, L500.4050 ####[facility] [address] [place], [address] Lymphocytes/100 WBC (Bld) 3.8 % Low 19-41 [facility] Comment on above: Performed By: #### L 501.2300, L100.0100, L500.4100, L500.4050 ####[facility] [address] [place], [address] MCH (RBC) [Entitic mass] 33.3 pg High 27.0-32.0 [facility] Comment on above: Performed By: #### L 501.2300, L100.0100, L500.4100, L500.4050 ####[facility] [address] [place], [address] MCHC (RBC) [Mass/Vol] 32.4 g/dL Normal 32-36 [facility] Comment on above: Performed By: #### L 501.2300, L100.0100, L500.4100, L500.4050 ####[facility] [address] [place], [address] MCV (RBC) [Entitic vol] 103.0 fL High 80-94 [facility] Comment on above: Performed By: #### L 501.2300, L100.0100, L500.4100, L500.4050 ####[facility] [address] [place], [address] Monocytes/100 WBC (Bld) 2.7 % Normal 0-10 [facility] Comment on above: Performed By: #### L 501.2300, L100.0100, L500.4100, L500.4050 ####[facility] [address] [place], [address] Neutrophils/100 WBC (Bld) 93.0 % High 47-70 [facility] Comment on above: Performed By: #### L 501.2300, L100.0100, L500.4100, L500.4050 ####[facility] [address] [place], [address] Nucleated RBC (Bld) [#/Vol] 0 10*3/uL Normal 0-5 [facility] Comment on above: Performed By: #### L 501.2300, L100.0100, L500.4100, L500.4050 ####[facility] [address] [place], [address] Platelet mean volume (Bld) [Entitic vol] 9.8 fL Normal 6.2-12.0 [facility] Comment on above: Performed By: #### L 501.2300, L100.0100, L500.4100, L500.4050 ####[facility] [address] [place], [address] Platelets (Bld) [#/Vol] 179 10*3/uL Normal 150-450 [facility] Comment on above: Performed By: #### L 501.2300, L100.0100, L500.4100, L500.4050 ####[facility] [address] [place], [address] RBC (Bld) [#/Vol] 2.70 10*6/uL Low 4.6-6.2 [facility] Comment on above: Performed By: #### L 501.2300, L100.0100, L500.4100, L500.4050 ####[facility] [address] [place], [address] RDW SD 53.1 fl High 35.1-43.9 [facility] Comment on above: Performed By: #### L 501.2300, L100.0100, L500.4100, L500.4050 ####[facility] [address] [place], [address] WBC (Bld) [#/Vol] 12.4 10*3/uL High 4.4-11.0 [facility] Comment on above: Performed By: #### L 501.2300, L100.0100, L500.4100, L500.4050 ####[facility] [address] [place], [address] Calculated very low density lipoprotein (VLDL) cholesterol measurementOrdered By: Kam Tucker on 11-04-2024 Calculated very low density lipoprotein (VLDL) cholesterol measurement 13 mg/dL -40 [facility] VLDL Cholesterol 13 mg/dL -40 [facility] Comprehensive Metabolic Prof ilon 11-04-2024 Albumin [Mass/Vol] 3.3 g/dL Low 3.4-4.8 [facility] Comment on above: Performed By: #### L 501.2300, L100.0100, L500.4100, L500.4050 ####[facility] [address] [place], [address] Albumin/Globulin [Mass ratio] 1.0 {ratio} Normal 0.9-2.4 [facility] Comment on above: Performed By: #### L 501.2300, L100.0100, L500.4100, L500.4050 ####[facility] [address] [place], [address] ALK PHOS 110 U/L Normal 40-129 [facility] Comment on above: Performed By: #### L 501.2300, L100.0100, L500.4100, L500.4050 ####[facility] [address] [place], [address] ALT [Catalytic activity/Vol] 8 U/L Normal <=46 [facility] Comment on above: Performed By: #### L 501.2300, L100.0100, L500.4100, L500.4050 ####[facility] [address] [place], [address] AST [Catalytic activity/Vol] 23 U/L Normal <=37 [facility] Comment on above: Performed By: #### L 501.2300, L100.0100, L500.4100, L500.4050 ####[facility] [address] [place], [address] Bilirubin [Mass/Vol] 0.29 mg/dL Normal 0.00-1.30 [facility] Comment on above: Performed By: #### L 501.2300, L100.0100, L500.4100, L500.4050 ####[facility] [address] [place], [address] BUN/CRE 20.4 RATIO High 10-20 [facility] Comment on above: Performed By: #### L 501.2300, L100.0100, L500.4100, L500.4050 ####[facility] [address] [place], [address] Calcium [Mass/Vol] 8.6 mg/dL Normal 7.6-11.0 [facility] Comment on above: Performed By: #### L 501.2300, L100.0100, L500.4100, L500.4050 ####[facility] [address] [place], [address] Chloride [Moles/Vol] 99 mmol/L Normal 98-108 [facility] Comment on above: Performed By: #### L 501.2300, L100.0100, L500.4100, L500.4050 ####[facility] [address] [place], [address] CO2 [Moles/Vol] 23.9 mmol/L Normal 21.0-32.0 [facility] Comment on above: Performed By: #### L 501.2300, L100.0100, L500.4100, L500.4050 ####[facility] [address] [place], [address] Creatinine [Mass/Vol] 1.33 mg/dL High 0.70-1.20 [facility] Comment on above: Performed By: #### L 501.2300, L100.0100, L500.4100, L500.4050 ####[facility] [address] [place], [address] ECRCL 55.90 ml/min Normal 50-250 [facility] Comment on above: Performed By: #### L 501.2300, L100.0100, L500.4100, L500.4050 ####[facility] [address] [place], [address] GAP 13 Normal 5-15 [facility] Comment on above: Performed By: #### L 501.2300, L100.0100, L500.4100, L500.4050 ####[facility] [address] [place], [address] GFR/1.73 sq M.predicted among non-blacks MDRD (S/P/Bld) [Vol rate/Area] 56 mL/min/{1.73_m2} Low >60 [facility] Comment on above: Result Comment: mL/m in/1.73m2 CKD-EPI Creatinine Equation (2020) Performed By: #### L 501.2300, L100.0100, L500.4100, L500.4050 ####[facility] [address] [place], [address] Globulin (S) [Mass/Vol] 3.3 g/dL Normal 2.2-4.2 [facility] Comment on above: Performed By: #### L 501.2300, L100.0100, L500.4100, L500.4050 ####[facility] [address] [place], [address] Glucose [Mass/Vol] 175 mg/dL High 70-99 [facility] Comment on above: Performed By: #### L 501.2300, L100.0100, L500.4100, L500.4050 ####[facility] [address] [place], [address] Potassium [Moles/Vol] 5.5 mmol/L High 3.3-5.1 [facility] Comment on above: Performed By: #### L 501.2300, L100.0100, L500.4100, L500.4050 ####[facility] [address] [place], [address] Sodium [Moles/Vol] 136 mmol/L Normal 133-145 [facility] Comment on above: Performed By: #### L 501.2300, L100.0100, L500.4100, L500.4050 ####[facility] [address] [place], [address] T PROT 6.5 g/dL Normal 5.9-8.4 [facility] Comment on above: Performed By: #### L 501.2300, L100.0100, L500.4100, L500.4050 ####[facility] [address] [place], [address] Urea nitrogen [Mass/Vol] 27 mg/dL High 4-19 [facility] Comment on above: Performed By: #### L 501.2300, L100.0100, L500.4100, L500.4050 ####[facility] [address] [place], [address] Determination of fraction of inspired oxygenOrdered By: Kam Tucker on 11-04-2024 Blood Gas Oxygen Percent 40.0 [facility] Echo Complete W/ Contraston 11-04-2024 Echo Complete W/ Contrast Normal [facility] Echocardiogram study reportO rdered By: Sam Carpenter on 11-04-2024 Study report [facility] [address] [place] [address] Echo Complete W/ Contrast 11/04/24 1026 MR#: [id number] Acct: [id number] Name: KAM GREENBERG J Rep #:[id number] : 1950 74 From: Sam Gallo Attending Dr: Dr. Anabell Hinkle MD Status: ADM IN Ordering Dr: Kam Rogers DO Date: 11/04/24 Location: U Sex: M C Admitted: 11/03/24 Reason For Study Reason For Study: Chest pain Procedure This was a 2D Doppler, Color Flow transthoracic echocardiogram. The study was technically difficult. Exam performed portable in patient room. Left Ventricle Normal LV size. The left ventricular ejection fraction is 45 %. Stage 1 diastolic dysfunction. There is mild to moderate global hypokinesis of the left ventricle. Right Ventricle Normal right ventricle. Normal systolic function. Atria The left atrium is mildly enlarged. Normal right atrium. Mitral Valve Normal mitral valve. Moderate (2+) eccentric mitral valve insufficiency. Tricuspid Valve Normal tricuspid valve. Moderate (2+) tricuspid valve insufficiency. Pulmonary artery systolic pressure is 65 mmHg. Moderate pulmonary hypertension. Aortic Valve Trisinus/trileaflet aortic valve. Pulmonic Valve Normal pulmonic valve. Great Vessels Normal aortic root. The pulmonary artery is normal size. Inferior vena cava collapse with respiration. Pericardium/Pleural No pericardial effusion. Medication Diluted definity 2.0ml given slow IV push to enhance endocardial definition. MMode/2D Measurements & Calculations LVIDd: 5.4 cm IVSd: 1.1 cm Ao root diam: 3.2 cm LVIDs: 4.8 cm LVPWd: 1.2 cm RVDd: 2.9 cm FS: 10.5 % LAV(MOD-bp): 61.8 ml LVAd ap4: 35.3 cm2 SV(MOD-sp4): 62.9 ml LAV(MOD-bp) Indexed: 30.1 ml/m2 LVLd ap4: 8.4 cm SI(MOD-sp4): 30.7 ml/m2 LAV(MOD-sp2): 53.7 ml EDV(MOD-sp4): 124.0 ml LAV(MOD-sp4): 63.0 ml EDV(sp4-el): 126.1 ml LVAs ap4: 23.3 cm2 LVLs ap4: 7.5 cm ESV(MOD-sp4): 61.1 ml ESV(sp4-el): 61.4 ml EF(MOD-sp4): 50.7 % EF(sp4-el): 51.3 % SV(sp4-el): 64.7 ml LA A4 area: 20.6 cm2 LA dimension(2D): 4.4 cm RA A4 area: 14.2 cm2 TAPSE: 1.2 cm Time Measurements MV dec time: 0.25 sec Doppler Measurements & Calculations MV E max kimmie: 91.2 cm/sec Lat Peak E' Kimmie: 7.0 cm/sec Med Peak E' Kimmie: 6.8 cm/sec MV A max kimmie: 116.1 cm/sec E/E' lat: 12.9 E/E' med: 13.3 MV E/A: 0.79 MV dec slope: 367.2 cm/sec2 Ao V2 max: 93.6 cm/sec LV V1 max: 74.4 cm/sec Ao max P.5 mmHg LV V1 max P.2 mmHg Ao V2 mean: 71.5 cm/sec LV V1 mean P.2 mmHg Ao mean P.2 mmHg LV V1 mean: 51.4 cm/sec Ao V2 VTI: 20.0 cm LV V1 VTI: 13.9 cm AV (velocity ratio): 0.70 PA V2 max: 55.1 cm/sec TR max kimmie: 397.1 cm/sec TR max P.1 mmHg ECHO/Echo Complete W/ Contrast Interpretation Summary Normal LV size. The left ventricular ejection fraction is 45 %. There is mild to moderate global hypokinesis of the left ventricle. Stage 1 diastolic dysfunction. Pulmonary artery systolic pressure is 65 mmHg. The left atrium is mildly enlarged. Moderate pulmonary hypertension. Contrast injection was performed. Ordering Physician: Kam Rogers Referring Physician: Royce Carroll M.D. Performed By: Kiara Velasquez RDCS 11/04/24 1421 Date _ Sam Carpenter MD CC: Dr. Kam Rogers DO; Dr. Anabell Hinkle MD; Dr. Royce Carroll MD ~ Date Dictated: 11/04/24 1026 Date Transcribed: 11/04/24 1421 Lumber Sticker: Signed [facility] Work Phone: Electrocardiogram reportOrde red By: Sam Carpenter on 11-04-2024 EKG study [facility] [address] [place] [address] 12 Lead EKG 11/04/24 0524 MR#: [id number] Acct: [id number] Name: KAM GREENBERG Rep #:[id number] : 1950 74 From: Sam Carpenter MD Attending Dr: Dr. Anabell Hinkle MD Status: ADM IN Ordering Dr: Kam Rogers DO Date: 11/03/24 Location: [facility] Sex: M C Admitted: 11/03/24 Test Reason : AM EKG Blood Pressure : */* mmHG Vent. Rate : 78 BPM Atrial Rate : 78 BPM P-R Int : 104 ms QRS Dur : 92 ms QT Int : 384 ms P-R-T Axes : -8 51 -57 degrees QTcB Int : 437 ms Atrial Paced Minimal voltage criteria for LVH, may be normal variant ( Sokolow-Pineda ) T wave abnormality, consider inferior ischemia Abnormal ECG When compared with ECG of 03-Nov-2024 23:12, MANUAL COMPARISON REQUIRED DATA IS UNCONFIRMED Confirmed by PAULINE CRAWFORD, SAM ([id number]), web content editor KIRSTIN SOSA ([id number]) on 2:48:31 PM Referred By: ROGERS Confirmed By: SAM CARPENTER MD 11/04/24 1248 Date _ Sam Carpenter MD CC: Dr. Kam Rogers DO; Dr. Anabell Hinkle MD; Dr. Royce Carroll MD ~ Signed [facility] Work Phone: EKG study [facility] Cardi[facility] [address] [place] [address] 12 Lead EKG 11/03/24 2312 MR#: [id number] Acct: [id number] Name: KAM GREENBERG Rep #:[id number] : 1950 74 From: Sam Carpenter MD Attending Dr: Dr. Anabell Hinkle MD Status: ADM IN Ordering Dr: Kam Rogers DO Date: 11/04/24 Location: U Sex: M C Admitted: 11/03/24 Test Reason : AARYTHMIA Blood Pressure : */* mmHG Vent. Rate : 106 BPM Atrial Rate : 106 BPM P-R Int : 156 ms QRS Dur : 104 ms QT Int : 334 ms P-R-T Axes : 66 54 -81 degrees QTcB Int : 443 ms Sinus tachycardia with Premature atrial complexes Minimal voltage criteria for LVH, may be normal variant ( Sokolow-Pineda ) ST & T wave abnormality, consider inferior ischemia Abnormal ECG When compared with ECG of 03-Nov-2024 17:42, MANUAL COMPARISON REQUIRED DATA IS UNCONFIRMED Confirmed by SAM CARPENTER MD ([id number]), web content editor KIRSTIN SOSA ([id number]) on 2:48:46 PM Referred By: ROGERS Confirmed By: SAM CARPENTER MD 11/04/24 1248 Date _ Sam Carpenter MD CC: Dr. Kam Rogers DO; Dr. Anabell Hinkle MD; Dr. Royce Carroll MD ~ Signed [facility] Work Phone: EKG study [facility] [address] [place] [address] 12 Lead EKG 11/03/24 1742 MR#: [id number] Acct: [id number] Name: KAM GREENBERG Rep #:[id number] : 1950 74 From: Sam Carpenter MD Attending Dr: Dr. Anabell Hinkle MD Status: ADM IN Ordering Dr: Yoav Alcaraz DO Date: 5 Location: [facility] Sex: M C Admitted: 11/03/24 Test Reason : SOB Blood Pressure : */* mmHG Vent. Rate : 85 BPM Atrial Rate : 85 BPM P-R Int : 144 ms QRS Dur : 96 ms QT Int : 366 ms P-R-T Axes : 69 44 -25 degrees QTcB Int : 435 ms Normal sinus rhythm Minimal voltage criteria for LVH, may be normal variant ( Sokolow-Pineda ) Abnormal ECG Confirmed by SAM CARPENTER MD ([id number]), web content editor KIRSTIN SOSA ([id number]) on 58:42:06 AM Referred By: Confirmed By: SAM CARPENTER MD 11/04/24 0842 Date _ Sam Carpenter MD CC: Dr. Anabell Hinkle MD; Dr. Yoav Alcaraz DO; Dr. Royce Carroll MD ~ Signed [facility] Work Phone: Folates,Serum (Folic Acid)on 11-04-2024 FOLATES,SERUM 19.60 ng/mL Normal 4.60-34.80 [facility] Comment on above: Result Comment: Hemo lysis, Results will be affected, Requires Recollection. Performed By: #### L 501.5200, L506.0200 ####[facility] [address] [place], [place], [address] L. pneumophila Ag Ql (U)Orde red By: Anabell Hinkle on 11-04-2024 Legionella [facility] L499.0042on 11-04-2024 Trop T High Sen 139 ng/L Invalid Interpretation Code <=22 [facility] Comment on above: Result Comment: Crit ical Result(s) Called at:0230 by: DEDE HAVEN TO LARAER??Results read back by same. Performed By: #### L 499.0042 ####[facility] [address] [place], [place], [address] L499.0043on 11-04-2024 Trop T High Sen 133 ng/L Invalid Interpretation Code <=22 [facility] Comment on above: Result Comment: Crit ical Result(s) Called at:0512 by:DEDE HAVEN TO BLAYNEICKINGER??Results read back by same. Performed By: #### L 499.0043 ####[facility] [address] [place], [address] L501.4021on 11-04-2024 Trop T High Sen 131 ng/L Invalid Interpretation Code <=22 [facility] Comment on above: Result Comment: Crit ical Result(s) Called at:0103 by:??DEDE BEJARANO Results read back by same. Performed By: #### L 501.4021 ####[facility] [address] [place], [address] LDL calc ser/plasOrdered By: Kam Tucker on 11-04-2024 Cholesterol in LDL [Mass/Vol] 23 mg/dL [facility] Comment on above: Dxufyqogxr=237-329 m g/dL & Higher Qnir=704 mg/dL or greater LDL Cholesterol, Calculated 23 mg/dL [facility] Comment on above: Epgwaxeaxs=332-360 m g/dL & Higher Oeev=726 mg/dL or greater Laboratory - Chemistry and C hemistry - challengeOrdered By: Kam Tucker on 11-04-2024 AST [Catalytic activity/Vol] 23 U/L <38 [facility] Legionella Antigen Urineon 0 11-04-2024 LEGU Normal [facility] Comment on above: Performed By: #### M 300.4500, M300.4600 ####[facility] [address] [place], [address] Lipid Profileon 11-04-2024 CHOL:HDL 1.91 Normal [facility] Comment on above: Performed By: #### L 501.2300, L100.0100, L500.4100, L500.4050 ####[facility] [address] [place], [address] Cholesterol [Mass/Vol] 76 mg/dL Normal <=200 [facility] Comment on above: Result Comment: Chol esterol level, Desirable <200 mg/dLBorderline high cholesterol 200-239 mg/dLHigh cholesterol >=240 mg/dLRecommendations of the NCEP Adult Treatment Panel for thefollowing risk-cutoff thresholds for the [place] Americanpopulation. Performed By: #### L 501.2300, L100.0100, L500.4100, L500.4050 ####[facility] [address] [place], [address] Cholesterol in HDL [Mass/Vol] 40 mg/dL Normal [facility] Comment on above: Result Comment: [place] onal Cholesterol Education Program (NCEP) guidelines:<40 mg/dL: Low HDL-cholesterol (major risk factor for CHD)>= 60 mg/dL: High HDL-cholesterol (negative risk factor forCHD)HDL-cholesterol is affected by a number of factors, e.g.smoking, exercise, hormones, sex and age. Performed By: #### L 501.2300, L100.0100, L500.4100, L500.4050 ####[facility] [address] [place], [address] Cholesterol in LDL [Mass/Vol] 23 mg/dL Normal [facility] Comment on above: Result Comment: Bord exgvwi=116-562 mg/dL Higher Jzqd=501 mg/dL or greater Performed By: #### L 501.2300, L100.0100, L500.4100, L500.4050 ####[facility] [address] [place], [address] Cholesterol in VLDL [Mass/Vol] 13 mg/dL Normal 5-40 [facility] Comment on above: Performed By: #### L 501.2300, L100.0100, L500.4100, L500.4050 ####[facility] [address] [place], [address] Triglyceride [Mass/Vol] 67 mg/dL Normal [facility] Comment on above: Result Comment: The drugs N-Acetylcysteine and Metamizole may falselydepress this assay.Normal range: <150 mg/dLBorderline High: 150-199 mg/dLHigh: 200-499 mg/dLVery High: >500 mg/dL Performed By: #### L 501.2300, L100.0100, L500.4100, L500.4050 ####[facility] [address] [place], [address] Measurement, pHOrdered By: Yazmin Tucker on 11-04-2024 pH (Unsp spec) 7.33 [pH] Low 7.35-7.45 [facility] No Panel InformationOrdered By: Kam Tucker on 11-04-2024 Bedside Blood Gas PEEP 8 [facility] Bld Gas Peak Inspiratory Pressure 16 [facility] Blood Gas Respiration Rate 14 [facility] Blood Gas Sample Site R Radial [facility] Blood Gas Specimen Type ART W [facility] Blood Gas Vent Mode Not entered [facility] Oxygen Delivery Device BiPAP [facility] Oxygen saturation measuremen tOrdered By: Kam Tucker on 11-04-2024 Blood Gas Oxygen Saturation 96 % 95-99 [facility] Partial pressure of carbon d ioxide measurementOrdered By: Kam Tucker on 11-04-2024 Arterial Blood Partial Pressure CO2 63.5 mmHg High 35-45 [facility] Partial pressure of oxygen m easurementOrdered By: Kam Tucker on 11-04-2024 Arterial Blood Partial Pressure O2 92 mmHG 75-100 [facility] Phosphoruson 11-04-2024 Phosphate [Mass/Vol] 4.5 mg/dL Normal 2.7-4.5 [facility] Comment on above: Performed By: #### L 501.2300, L100.0100, L500.4100, L500.4050 ####[facility] [address] [place], [place], [id number] RESPIRATORY PANEL MOLECULARo n 11-04-2024 RP PANEL Normal [facility] Comment on above: Performed By: #### M 100.638 ####[facility] [address] [facility] [address] [place], [place], [id number] Respiratory pathogens DNA an d RNA panel BREA+probe (Resp)Ordered By: Anabell Hinkle on 11-04-2024 Respiratory Panel (PCR) [facility] Respiratory pathogens detect ion panel by molecular detection methodOrdered By: Anabell Hinkle on 11-04-2024 Respiratory pathogens DNA and RNA panel BREA+probe (Resp) [facility] Screening total cholesterol/ high density lipoprotein (HDL) cholesterol ratioOrdered By: Kam Tucker on 11-04-2024 Cholesterol.total/Madeline sterol in HDL [Mass ratio] 1.91 {ratio} [facility] Serum globulin measurementOr dered By: Kam Tucker on 11-04-2024 Globulin (S) [Mass/Vol] 3.3 g/dL 2.2-4.2 W [facility] Serum or plasma alanine alexis otransferase (ALT) measurementOrdered By: Kam Tucker on 11-04-2024 ALT [Catalytic activity/Vol] 8 U/L <47 [facility] Serum or plasma albumin mallorie urement (mass/volume)Ordered By: Kam Tucker on 11-04-2024 Albumin [Mass/Vol] 3.3 g/dL Low 3.4-4.8 [facility] Serum or plasma albumin/glob ulin mass ratioOrdered By: Kam Tucker on 11-04-2024 Albumin/Globulin [Mass ratio] 1.0 {ratio} 0.9-2.4 [facility] Serum or plasma alkaline rhonda sphatase measurementOrdered By: Kam Tucker on 11-04-2024 ALP [Catalytic activity/Vol] 110 U/L 40-129 [facility] Serum or plasma cholesterol in HDL measurement (mass/volume)Ordered By: Kam Tucker on 11-04-2024 Cholesterol in HDL [Mass/Vol] 40 mg/dL >40 [facility] Comment on above: National Cholesterol Education Program (NCEP) guidelines:<40 mg/dL: Low HDL-cholesterol (major risk factor for CHD)>= 60 mg/dL: High HDL-cholesterol (negative risk factor for CHD)HDL-cholesterol is affected by a number of factors, e.g. smoking, exercise, hormones, sex and age. Serum or plasma cholesterol measurement (mass/volume)Ordered By: Kam Tucker on 11-04-2024 Cholesterol [Mass/Vol] 76 mg/dL <201 [facility] Comment on above: Cholesterol level, D esirable <200 mg/dLBorderline high cholesterol 200-239 mg/dLHigh cholesterol >=240 mg/dLRecommendations of the NCEP Adult Treatment Panel for the following risk-cutoff thresholds for the [place] population. Strep pneumoniae Antig(UR,CS F)on 11-04-2024 STPAG Normal [facility] Comment on above: Performed By: #### M 300.7797, M300.8709 ####[facility] [address] [place], [address] Streptococcus pneumoniae ant igen assayOrdered By: Anabell Hinkle on 11-04-2024 Streptococcus pneumoniae Antigen (M [facility] Total carbon dioxide measure mentOrdered By: Kam Tucker on 11-04-2024 Blood Gas Total CO2 35 mmol/L [facility] CO2 [Moles/Vol] 35 mmol/L [facility] Total proteinOrdered By: Luis Enrique Tucker on 11-04-2024 Protein [Mass/Vol] 6.5 g/dL 5.9-8.4 [facility] Triglycerides measurementOrd ered By: Kam Tucker on 11-04-2024 Triglyceride [Mass/Vol] 67 mg/dL <199 [facility] Comment on above: The drugs N-Acetylcy steine and Metamizole may falsely depress this assay. Normal range: <150 mg/dLBorderline High: 150-199 mg/dLHigh: 200-499 mg/dLVery High: >500 mg/dL Troponin T.cardiac High sens itivity method [Mass/Vol]Ordered By: Kam Tucker on 11-04-2024 Troponin T High Sensitivity 4 Hour 133 ng/L High <22 [facility] Comment on above: Critical Result(s) C alled at:0512 by:DEDE LEON Results read back by same. Troponin T High Sensitivity 2 Hour 139 ng/L High <22 [facility] Comment on above: Critical Result(s) C alled at:0230 by: DEDE LEON Results read back by same. Troponin T.cardiac [Mass/vol ume] in Serum or Plasma by High sensitivity methodOrdered By: Kam Tucker on 11-04-2024 Troponin T.cardiac High sensitivity method [Mass/Vol] 133 ng/L High <22 [facility] Comment on above: Critical Result(s) C alled at:0512 by:DEDE LEON Results read back by same. Troponin T.cardiac High sensitivity method [Mass/Vol] 139 ng/L High <22 [facility] Comment on above: Critical Result(s) C alled at:0230 by: DEDE MALDONADOINGER Results read back by same. Urine Legionella pneumophila antigen detectionOrdered By: Anabell Hinkle on 11-04-2024 L. pneumophila Ag Ql (U) [facility] pH (Unsp spec)Ordered By: Warren Tucker on 11-04-2024 Blood Gas pH 7.33 Low 7.35-7.45 [facility] 12 Lead EKGon 11-03-2024 12 Lead EKG Normal [facility] 12 Lead EKG Normal [facility] Absolute neutrophil countOrd ered By: ED PROVIDER on 11-03-2024 Neutrophils (Bld) [#/Vol] 11.2 10*3/uL High 2.0-7.7 [facility] Anion gap in Serum or Plasma Ordered By: Yoav Alcaraz on 11-03-2024 Anion gap [Moles/Vol] 11 mmol/L - [facility] BUN/creatinine ratioOrdered By: Yoav Alcaraz on 11-03-2024 Urea nitrogen/Creatinine [Mass ratio] 16.3 mg/mg - [facility] Basic Metabolic Profile (BMP )on 11-03-2024 BUN/CRE 16.3 RATIO Normal - [facility] Comment on above: Performed By: #### L 100.0100, L500.2500 ####[facility] [address] [place], [address] Calcium [Mass/Vol] 9.2 mg/dL Normal 7.6-11.0 [facility] Comment on above: Performed By: #### L 100.0100, L500.2500 ####[facility] [address] [place], [address] Chloride [Moles/Vol] 96 mmol/L Low 98-108 [facility] Comment on above: Performed By: #### L 100.0100, L500.2500 ####[facility] [address] [place], [address] CO2 [Moles/Vol] 29.8 mmol/L Normal 21.0-32.0 [facility] Comment on above: Performed By: #### L 100.0100, L500.2500 ####[facility] [address] [place], [address] Creatinine [Mass/Vol] 1.51 mg/dL High 0.70-1.20 [facility] Comment on above: Performed By: #### L 100.0100, L500.2500 ####[facility] [address] [place], [address] ECRCL 49.24 ml/min Low 50-250 [facility] Comment on above: Performed By: #### L 100.0100, L500.2500 ####[facility] [address] [place], [address] GAP 11 Normal 5-15 [facility] Comment on above: Performed By: #### L 100.0100, L500.2500 ####[facility] [address] [place], [address] GFR/1.73 sq M.predicted among non-blacks MDRD (S/P/Bld) [Vol rate/Area] 48 mL/min/{1.73_m2} Low >60 [facility] Comment on above: Result Comment: mL/m in/1.73m2 CKD-EPI Creatinine Equation (2020) Performed By: #### L 100.0100, L500.2500 ####[facility] [address] [place], [address] Glucose [Mass/Vol] 201 mg/dL High 70-99 [facility] Comment on above: Performed By: #### L 100.0100, L500.2500 ####[facility] [address] [place], [address] Potassium [Moles/Vol] 4.8 mmol/L Normal 3.3-5.1 [facility] Comment on above: Performed By: #### L 100.0100, L500.2500 ####[facility] [address] [place], [address] Sodium [Moles/Vol] 136 mmol/L Normal 133-145 [facility] Comment on above: Performed By: #### L 100.0100, L500.2500 ####[facility] [address] [place], [address] Urea nitrogen [Mass/Vol] 25 mg/dL High 4-19 [facility] Comment on above: Performed By: #### L 100.0100, L500.2500 ####[facility] [address] [place], [address] Basophil percentageOrdered B y: ED PROVIDER on 11-03-2024 Basophils/100 WBC (Bld) 0.1 % 0-1 W [facility] Blood Gases by CPSon 025 HELEN TEST Positive Normal [facility] Comment on above: Performed By: #### L 9000.0800 ####[facility] [address] [place], [address] Base excess Calc (Bld) [Moles/Vol] 7 mmol/L High -2 to +2 [facility] Comment on above: Performed By: #### L 9000.0800 ####[facility] [address] [place], [address] Blood Gas Type ART Normal [facility] Comment on above: Performed By: #### L 9000.0800 ####[facility] [address] [place], [address] CO2 [Moles/Vol] 35 mmol/L Normal [facility] Comment on above: Performed By: #### L 9000.0800 ####[facility] [address] [place], [address] FI02 6.0 Normal [facility] Comment on above: Performed By: #### L 9000.0800 ####[facility] [address] [place], [address] HCO3 (Bld) [Moles/Vol] 32.9 mmol/L High 22-26 [facility] Comment on above: Performed By: #### L 0.0800 ####[facility] [address] [place], [address] Mode Not entered Normal [facility] Comment on above: Performed By: #### L 8999.0800 ####[facility] [address] [place], [address] O2 Delivery Dev Cannula Normal [facility] Comment on above: Performed By: #### L 0.0800 ####[facility] [address] [place], [address] pCO2 64.2 mmHg High 35-45 [facility] Comment on above: Performed By: #### L 8999.0800 ####[facility] [address] [place], [address] pH (Bld) 7.32 [pH] Low 7.35-7.45 [facility] Comment on above: Performed By: #### L 0.0800 ####[facility] [address] [place], [address] PO2 99 mmHG Normal 75-100 [facility] Comment on above: Performed By: #### L 0.0800 ####[facility] [address] [place], [address] SITE R Radial Normal [facility] Comment on above: Performed By: #### L 0.0800 ####[facility] [address] [place], [address] SO2 97 Normal 95-99 [facility] Comment on above: Performed By: #### L 0.0800 ####[facility] [address] [place], [address] CBC W/Diff, Automatedon 04-0 9-2024 Absolute Lymph 0.71 X10 3/uL Low 0.83-4.51 [facility] Comment on above: Performed By: #### L 100.0100, L500.2500 ####[facility] [address] [place], [address] Absolute Neut 11.2 X10 3/uL High 2.0-7.7 [facility] Comment on above: Performed By: #### L 100.0100, L500.2500 ####[facility] [address] [place], [address] Basophils/100 WBC (Bld) 0.1 % Normal 0-1 [facility] Comment on above: Performed By: #### L 100.0100, L500.2500 ####[facility] [address] [place], [address] Eosinophils/100 WBC (Bld) 0.2 % Normal 0-5 [facility] Comment on above: Performed By: #### L 100.0100, L500.2500 ####[facility] [address] [place], [address] Erythrocyte distribution width (RBC) [Ratio] 14.5 % Normal 11.6-14.6 [facility] Comment on above: Performed By: #### L 100.0100, L500.2500 ####[facility] [address] [place], [address] Hematocrit (Bld) [Volume fraction] 31.9 % Low 40-54 [facility] Comment on above: Performed By: #### L 100.0100, L500.2500 ####[facility] [address] [place], [address] Hemoglobin (Bld) [Mass/Vol] 10.1 g/dL Low 13.0-16.5 [facility] Comment on above: Performed By: #### L 100.0100, L500.2500 ####[facility] [address] [place], [address] IG% 0.200 Normal 0.0-0.9 [facility] Comment on above: Result Comment: IG% - Immature Granulocytes (promyelocytes, myelocytes andmetamyelocytes) > 1% indicates that a LEFT SHIFT is Present. Performed By: #### L 100.0100, L500.2500 ####[facility] [address] [place], [address] Lymphocytes/100 WBC (Bld) 5.6 % Low 19-41 [facility] Comment on above: Performed By: #### L 100.0100, L500.2500 ####[facility] [address] [place], [address] MCH (RBC) [Entitic mass] 32.8 pg High 27.0-32.0 [facility] Comment on above: Performed By: #### L 100.0100, L500.2500 ####[facility] [address] [place], [address] MCHC (RBC) [Mass/Vol] 31.7 g/dL Low 32-36 [facility] Comment on above: Performed By: #### L 100.0100, L500.2500 ####[facility] [address] [place], [address] MCV (RBC) [Entitic vol] 103.6 fL High 80-94 [facility] Comment on above: Performed By: #### L 100.0100, L500.2500 ####[facility] [address] [place], [address] Monocytes/100 WBC (Bld) 5.4 % Normal 0-10 [facility] Comment on above: Performed By: #### L 100.0100, L500.2500 ####[facility] [address] [place], [address] Neutrophils/100 WBC (Bld) 88.5 % High 47-70 [facility] Comment on above: Performed By: #### L 100.0100, L500.2500 ####[facility] [address] [place], [address] Nucleated RBC (Bld) [#/Vol] 0 10*3/uL Normal 0-5 [facility] Comment on above: Performed By: #### L 100.0100, L500.2500 ####[facility] [address] [place], [address] Platelet mean volume (Bld) [Entitic vol] 10.1 fL Normal 6.2-12.0 [facility] Comment on above: Performed By: #### L 100.0100, L500.2500 ####[facility] [address] [place], [address] Platelets (Bld) [#/Vol] 204 10*3/uL Normal 150-450 [facility] Comment on above: Performed By: #### L 100.0100, L500.2500 ####[facility] [address] [place], [address] RBC (Bld) [#/Vol] 3.08 10*6/uL Low 4.6-6.2 [facility] Comment on above: Performed By: #### L 100.0100, L500.2500 ####[facility] [address] [place], [address] RDW SD 54.4 fl High 35.1-43.9 [facility] Comment on above: Performed By: #### L 100.0100, L500.2500 ####[facility] [address] [place], [address] WBC (Bld) [#/Vol] 12.7 10*3/uL High 4.4-11.0 [facility] Comment on above: Performed By: #### L 100.0100, L500.2500 ####[facility] [address] [place], [address] Carbon dioxide, total [Moles /volume] in Central venous bloodOrdered By: Yoav Alcaraz on 11-03-2024 CO2 [Moles/Vol] 29.8 mmol/L 21.0-32.0 [facility] Chest 1 View (Portable)on Chest 1 View (Portable) Normal [facility] Chloride assayOrdered By: Bryson Alcaraz on 11-03-2024 Chloride [Moles/Vol] 96 mmol/L Low 98-108 [facility] Emergency Department Summary on 11-03-2024 Emergency Department Summary Normal [facility] Eosinophil percentageOrdered By: ED PROVIDER on 11-03-2024 Eosinophils/100 WBC (Bld) 0.2 % 0-5 [facility] Erythrocyte distribution wid th (RBC) [Ratio]Ordered By: ED PROVIDER on 11-03-2024 Erythrocyte distribution width (RBC) [Entitic vol] 54.4 fL High 35.1-43.9 [facility] Erythrocyte distribution wid th ratioOrdered By: ED PROVIDER on 11-03-2024 Erythrocyte distribution width (RBC) [Ratio] 14.5 % 11.6-14.6 [facility] Estimation of creatinine carlos aranceOrdered By: Yaov Alcaraz on 11-03-2024 Estimated Creatinine Clearance Calc 49.24 ml/min Low 50-250 [facility] Folate [Moles/Vol]Ordered By : Kam Tucker on 11-03-2024 Serum Folate 19.60 ng/mL 4.60-34.80 [facility] Comment on above: Hemolysis, Results w ill be affected, Requires Recollection. Folate [Moles/volume] in Ser um or PlasmaOrdered By: Kam Tucker on 11-03-2024 Folate [Moles/Vol] 19.60 ng/mL 4.60-34.80 [facility] Comment on above: Hemolysis, Results w ill be affected, Requires Recollection. GFR/1.73 sq M.predicted bisi g non-blacks MDRD (S/P/Bld) [Vol rate/Area]Ordered By: Yoav Alcaraz on 11-03-2024 Estimated GFR (MDRD) Non-Af Amer 48 Low >60 [facility] Comment on above: mL/min/1.73m2 CKD-EP I Creatinine Equation (2020) H AND P Exam - [facility] 11-03-2024 H&P Exam - Hospitalist Normal [facility] Hematocrit Auto (Bld) [Volum e fraction]Ordered By: ED PROVIDER on 11-03-2024 Hematocrit (Bld) [Volume fraction] 31.9 % Low 40-54 [facility] Hemoglobin A1con 11-03-2024 HbA1c (Bld) [Mass fraction] 6.6 % Normal <=5.6 [facility] Comment on above: Performed By: #### L 503.0106, L501.9520, L501.9985 ####[facility] [address] [place], [place], [id number] Hemoglobin A1c percentageOrd ered By: Kam uTcker on 11-03-2024 HbA1c (Bld) [Mass fraction] 6.6 % >5.7 [facility] Hemoglobin measurementOrdere d By: ED PROVIDER on 11-03-2024 Hemoglobin (Bld) [Mass/Vol] 10.1 g/dL Low 13.0-16.5 [facility] Immature granulocytes/100 WB C Auto (Bld)Ordered By: ED PROVIDER on 11-03-2024 Immature granulocytes/100 WBC (Bld) 0.200 % 0.0-0.9 [facility] Comment on above: IG% - Immature Granu locytes (promyelocytes, myelocytes and metamyelocytes) > 1% indicates that a LEFT SHIFT is Present. Influenza virus A and B and SARS-CoV-2 (COVID-19) and Respiratory syncytial virus RNAOrdered By: Yoav Alcaraz on 11-03-2024 SARS-CoV-2 (COVID-19) RNA BREA+probe Ql (Unsp spec) [facility] Lymphocytes Auto (Unsp spec) [#/Vol]Ordered By: ED PROVIDER on 11-03-2024 Lymphocytes (Bld) [#/Vol] 0.71 10*3/uL Low 0.83-4.51 [facility] Lymphocytes/100 WBC Auto (Un sp spec)Ordered By: ED PROVIDER on 11-03-2024 Lymphocytes/100 WBC (Bld) 5.6 % Low 19-41 [facility] M100.678on 11-03-2024 M100.678 Pending SARS-CoV-2 (COVID 19) Negative INFLUENZA A Negative INFLUENZA B Negative RSV PCR Negative Normal [facility] Comment on above: Performed By: #### M 100.678 ####[facility] [address] [place], [address] MCV (mean corpuscular volume ) determinationOrdered By: ED PROVIDER on 11-03-2024 MCV (RBC) [Entitic vol] 103.6 fL High 80-94 [facility] Magnesiumon 11-03-2024 Magnesium [Mass/Vol] 1.8 mg/dL Normal 1.5-2.2 [facility] Comment on above: Performed By: #### L 501.5200, L506.0200 ####[facility] [address] [place], [place], [id number] Magnesium (Unsp spec) [Mass/ Vol]Ordered By: Kam Tucker on 11-03-2024 Magnesium [Mass/Vol] 1.8 mg/dL 1.5-2.2 [facility] Magnesium measurement (mass/ volume)Ordered By: Kam Tucker on 11-03-2024 Magnesium (Unsp spec) [Mass/Vol] 1.8 mg/dL 1.5-2.2 [facility] Mean corpuscular hemoglobin (MCH) determinationOrdered By: ED PROVIDER on 11-03-2024 MCH (RBC) [Entitic mass] 32.8 pg High 27.0-32.0 [facility] Mean corpuscular hemoglobin concentration (MCHC) determinationOrdered By: ED PROVIDER on 11-03-2024 MCHC (RBC) [Mass/Vol] 31.7 g/dL Low 32-36 [facility] Mean platelet volume determi nationOrdered By: ED PROVIDER on 11-03-2024 Platelet mean volume (Bld) [Entitic vol] 10.1 fL 6.2-12.0 [facility] Monocyte percentageOrdered B y: ED PROVIDER on 11-03-2024 Monocytes/100 WBC (Bld) 5.4 % 0-10 [facility] Neutrophil percentageOrdered By: ED PROVIDER on 11-03-2024 Neutrophils/100 WBC (Bld) 88.5 % High 47-70 [facility] Nucleated red blood cell per centageOrdered By: ED PROVIDER on 11-03-2024 Nucleated RBC/100 WBC (Bld) [Ratio] 0 % 0-5 [facility] Platelet countOrdered By: ED PROVIDER on 11-03-2024 Platelets (Bld) [#/Vol] 204 10*3/uL 150-450 [facility] Potassium (Unsp spec) [Mass/ Vol]Ordered By: Yoav Alcaraz on 11-03-2024 Potassium [Moles/Vol] 4.8 mmol/L 3.3-5.1 [facility] RBC Auto (Bld) [#/Vol]Ordere d By: ED PROVIDER on 11-03-2024 RBC (Bld) [#/Vol] 3.08 10*6/uL Low 4.6-6.2 [facility] Serum creatinine measurement (mass/volume)Ordered By: Yoav Alcaraz on 11-03-2024 Creatinine [Mass/Vol] 1.51 mg/dL High 0.70-1.20 [facility] Serum glucose measurement (m ass/volume)Ordered By: Yoav Alcaraz on 11-03-2024 Glucose [Mass/Vol] 201 mg/dL High 70-99 [facility] Serum or plasma calcium mallorie urement (mass/volume)Ordered By: Yoav Alcaraz on 11-03-2024 Calcium [Mass/Vol] 9.2 mg/dL 7.6-11.0 [facility] Serum or plasma urea nitroge n measurement (mass/volume)Ordered By: Yoav Alcaraz on 11-03-2024 Urea nitrogen [Mass/Vol] 25 mg/dL High 4-19 [facility] Sodium levelOrdered By: Yoav Alcaraz on 11-03-2024 Sodium [Moles/Vol] 136 mmol/L 133-145 [facility] TSH DL <= 0.005 mIU/L QnOrde red By: Kam Tucker on 11-03-2024 Thyroid Stimulating Hormone (TSH) 1.190 uIU/mL 0.300-4.200 [facility] TSH Qn 1.190 uIU/mL 0.300-4.200 [facility] Thyroid Stim Hormone (TSH)on 11-03-2024 TSH 1.190 uIU/mL Normal 0.300-4.200 [facility] Comment on above: Order Comment: *ADD- ON* Performed By: #### L 503.0106, L501.9520, L501.9985 ####[facility] [address] [place], [address] Troponin T.cardiac High sens itivity method [Mass/Vol]Ordered By: Kam Tucker on 11-03-2024 Troponin T High Sensitivity 131 ng/L High <22 [facility] Comment on above: Critical Result(s) C alled at:0103 by: DEDE BEJARANO Results read back by same. Troponin T.cardiac [Mass/vol ume] in Serum or Plasma by High sensitivity methodOrdered By: Kam Tucker on 11-03-2024 Troponin T.cardiac High sensitivity method [Mass/Vol] 131 ng/L High <22 [facility] Comment on above: Critical Result(s) C alled at:0103 by: DEDE BEJARANO Results read back by same. Vitamin B12on 11-03-2024 Cobalamin (Vitamin B12) [Mass/Vol] 1475 pg/mL High 180-914 [facility] Comment on above: Order Comment: *ADD- ON* Performed By: #### L 503.0106, L501.9520, L501.9985 ####[facility] [address] [place], [address] Vitamin B12 ser/plasOrdered By: Kam Tucker on 11-03-2024 Cobalamin (Vitamin B12) [Mass/Vol] 1475 pg/mL High 180-914 [facility] White blood cell (WBC) count Ordered By: ED PROVIDER on 11-03-2024 WBC (Bld) [#/Vol] 12.7 10*3/uL High 4.4-11.0 [facility] 11-02-2024 MECHELLE Telephone (FAMPWS) KAM GREENBERG ([id number]) 1950 M Date Time Provider Department 11/02/24 ROYCE CARROLL During your visit today, we recorded the following information about you: Elena Walters LPN 11/02/2024 12:17 PM Signed Pt calls to report that he is on 4L of O2 and PO is bouncing from 101-105. Pt reports he first recognized this last night. Pt reports he as some SOB but not more than usual. Pt is asking if he needs to turn O2 down to 3L. Please review and advise. JERI Tadeo Victor H, MD 11/02/2024 12:34 PM Signed He needs his pulse oximeter checked. 100 is the typical highest reading. Stay on 4 LPM. Elena Walters LPN 11/02/2024 12:48 PM Signed Pt notified of dr's message. Pt now reports that he has a dull pain in his chest whenever he breathes in. Requesting RN to triage pt. Elena Walters LPN Allergies As of Date: 11/02/2024 Noted Allergy Reaction LISINOPRIL 11/15/2019 18 - Angioedema MORPHINE 06/07/2008 12 - Shortness of Breath Comments: rapid heart rate OYSTERS 04/01/2017 8 - GI Upset TYLENOL (ACETAMINOPHEN) 10/16/2005 13 - Dystonia Comments: flushed, cold sweats, shakey Date Reviewed: 10/21/2024 Reviewed by: Shell Patten COA - Fully Assessed Reason for Visit: pulse ox readings over 100 [Other] Prescriptions as of 11/02/2024 - ipratropium-albutero l (DUONEB) 0.5 mg-3 mg(2.5 mg base)/3 mL nebu Inhale 3 mL as instructed four times daily. - amLODIPine (NORVASC) 5 mg tablet Take 1 tablet by mouth once daily. - atorvastatin (LIPITOR) 40 mg tablet Take 1 tablet by mouth daily at bedtime. - clopidogrel (PLAVIX) 75 mg tablet Take 1 tablet by mouth once daily. - fluticasone (FLONASE) 50 mcg/actuation nasal spray Use 1 [place] in each nostril two times a day. - metFORMIN (GLUCOPHAGE) 500 mg tablet Take 1 tablet by mouth two times a day with meals. - metoprolol tartrate, short acting, (LOPRESSOR) 50 mg tablet Take 1 tablet by mouth two times a day. - sertraline (ZOLOFT) 100 mg tablet Take 1 tablet by mouth once daily. - primidone (MYSOLINE) 50 mg tablet Take 1 tablet by mouth two times a day. - fluticasone-umeclidi n-vilanter (TRELEGY ELLIPTA) 100-62.5-25 mcg inhalation powder Inhale 1 Puff as instructed once daily. - blood sugar diagnostic (BLOOD GLUCOSE TEST) test strip Test blood sugar(s) 2 times daily. Dx: Other DM Code E11.41 Insulin: No - albuterol HFA (VENTOLIN HFA) 90 mcg/actuation inhaler Inhale 2 Puffs as instructed every 4 hours as needed for wheezing/shortness of breath. - Blood-Glucose Meter monitoring kit Glucose Meter of Choice - Kit - Dx: Other DM Code E11.49 - saw/vit E/sod miguel/lyc/beta/pyg (PROSTATE HEALTH ORAL) Take 3 tablets by mouth once daily. - multivit with minerals/lutein (MULTI-ISABELLE 50 AND OVER ORAL) Take 1 tablet by mouth once daily. - nitroglycerin sublingual (NITROSTAT) 0.4 mg SL tablet Dissolve 1 tablet under the tongue every 5 minutes as needed. - aspirin, enteric coated (ADULT LOW DOSE ASPIRIN) 81 mg EC tablet Take 1 tablet by mouth once daily. Problem List As Of Date 11/02/2024 Noted Resolved DYSMETABOLIC SYNDROME X [E88.810] 11/07/2005 Esophageal reflux [K21.9] 09/29/2017 Hyperlipemia [E78.5] Coronary atherosclerosis [I25.10] GENERAL OSTEOARTHROSIS [M15.9] 10/16/2005 Type II or unspecified type diabetes mellitus w*10/21/2005 11/22/2013 Peripheral vascular disease (HCC) [I73.9] 11/06/2005 11/13/2020 Degeneration of thoracolumbar intervertebral di*11/06/2005 Essential hypertension [I10] 11/06/2005 Polyneuropathy in diabetes(357.2) (HCC) [E11.4*11/07/2005 11/22/2013 Late effects of CVA (cerebrovascular accident) *03/17/2007 Other acquired deformity of toe [M20.5X9] 03/23/2009 09/29/2017 Dermatophytosis of nail [B35.1] 03/23/2009 09/29/2017 Type 2 diabetes mellitus with diabetic mononeur*08/23/2010 Adhesive capsulitis of shoulder [M75.00] 10/19/2010 11/20/2011 Tobacco use disorder [F17.200] 05/25/2012 05/23/2023 Rhinitis [J31.0] 11/20/2012 Anxiety disorder [F41.9] 01/31/2009 S/P coronary artery stent placement [Z95.5] 06/06/2015 S/P CABG x 3 [Z95.1] 06/06/2015 Essential tremor [G25.0] 11/23/2015 Stenosis of left carotid artery [I65.22] 04/03/2016 Stage 3a chronic kidney disease (HCC) [N18.31] 04/17/2018 Type 2 diabetes mellitus with diabetic peripher*09/18/2020 At risk for falls [Z91.81] 06/29/2021 Lung nodule < 6cm on CT [EHO5151] 10/17/2021 07/04/2022 Abnormality of gait [R26.9] 11/13/2021 Lumbar spondylosis [M47.816] 11/13/2021 01/15/2023 History of stroke [Z86.73] 11/13/2021 01/15/2023 Chronic obstructive pulmonary disease with (acu*12/11/2022 Chronic respiratory failure with hypoxia (HCC) *01/15/2023 09/27/2024 Chronic diastolic CHF (congestive heart failure*01/15/2023 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] 05/06/2023 05/06/2023 Combined forms o (more content not included)... Normal [facility] OCT MACULA CIRRUS OU (BOTH E YES)on 10-21-2024 [facility] Radiology Study observation (narrative) Carlosmark yazmin [facility] CT CHEST W IVCONon CT CHEST W IVCON * * *Final Report* * * DATE OF EXAM: Oct 11 2024 3:47PM [facility] 0539 - CT CHEST W IVCON / PROCEDURE REASON: Localized enlarged lymph nodes * * * * Physician Interpretation * * * * EXAMINATION: CHEST CT WITH CONTRAST CLINICAL HISTORY: Localized enlarged lymph nodes. Technique: Spiral CT acquisition of the chest from the thoracic inlet to the upper abdomen following IV contrast. MQ: CTCW_6 Contrast: 50 mL Omnipaque [address] Radiation dose: Integrated Dose-length product (DLP) for this visit = 224 mGy*cm CT Dose Reduction Employed: Automated exposure control(AEC) and iterative recon Comparison: CT lung screening on 07/23/2024 RESULT: Limitations: None. Lines, tubes, and devices: None. Lung parenchyma and airways: The central airways are patent, with diffuse bronchial wall thickening. The previously mentioned possible lymph node near the fissure in the right lung is not clearly identified. The bilateral lungs are remarkable for similar emphysema with upper lung predominance. There are reticulations in the bilateral lungs, with traction bronchiectasis and possible honeycombing. Interval new consolidative opacities in the right lung, series 7 images 96-1 66. Scarring noted in the anterior left upper lung. Pleural space: No pleural effusions or pneumothorax. There appears be calcification along the pleural surfaces abutting the left hemidiaphragm. Lower neck, lymph nodes, and mediastinum: Stable thyroid gland. No supraclavicular lymphadenopathy. Enlarged mediastinal, hilar and right axillary lymph nodes are grossly unchanged. Heart, pericardium, and thoracic vessels: Stable cardiac chambers, thoracic aorta and central pulmonary arteries. No pericardial effusion/thickening. There are atherosclerotic calcifications in the coronary circulations. Bones and soft tissues: Status post median sternotomy and CABG. The chest wall soft tissue has been stable. Upper abdomen: Limited study through the upper abdomen demonstrates no interval changes. Localizer images: No additional findings. IMPRESSION: Findings are suggestive of combination of emphysema and interstitial lung disease. Interval new consolidative opacities in the right lung, pulmonary infiltrates versus atelectasis. Enlarged lymph nodes in the mediastinum, hilar regions and right axilla, grossly unchanged. Lumber Sticker: CONSUELO Transcribe Date/Time: Oct 18 2024 8:29A Dictated by : LAWRENCE DANIEL MD This examination was interpreted and the report reviewed and electronically signed by: LAWRENCE DANIEL MD on Oct 18 2024 5:16PM EST [id number] CN Normal [facility] ALBUMIN/CREATININE RATIO, UR INEon 09-30-2024 Albumin DL <= 20 mg/L (U) [Mass/Vol] 603.3 mg/L Normal [facility] Comment on above: Order Comment: Speci men Type: URINE SPECIMENOrdering Facility: [facility] Address: [address] [place] [address] Performed By: #### U ACR ####[facility] LABCLIA [id number] [place] [address] [place] Albumin/Creatinine (U) [Mass ratio] 553 mg/g High <30 [facility] Comment on above: Order Comment: Jenniferi men Type: URINE SPECIMENOrdering Facility: [facility] Address: [address] [place] [address] Result Comment: Adul t Male and Female Nephrotic Criteria: <30 mg/g is considered normal to mildly increased 30-300 mg/g is considered moderately increased >300 mg/g is considered severely increased KDIGO. (2013). KDIGO 2012 Clinical Practice Guideline for the Evaluation and Management of Chronic Kidney Disease. Official Journal of the International Society of Nephrology, 3(1), 1-150. Performed By: #### U ACR ####[facility] LABCLIA [id number] [place] [id number] [place] Creatinine (U) [Mass/Vol] 109.0 mg/dL Normal 20.0-300.0 [facility] Comment on above: Order Comment: Speci men Type: URINE SPECIMENOrdering Facility: [facility] Address: [address] [place] [address] Performed By: #### U ACR ####[facility] LABCLIA [id number] [place] [address] [place] CBC panel Auto (Bld)on 09-27 Erythrocyte distribution width (RBC) [Ratio] 13.1 % Normal 11.5-15.0 [facility] Comment on above: Order Comment: Speci men Type: BLOOD SPECIMENOrdering Facility: [facility] Address: [address] [place] [address] Performed By: #### 5 8410-2 ####[facility] [id number] [place] [address] [place] Hematocrit (Bld) [Volume fraction] 34.1 % Low 39.0-51.0 [facility] Comment on above: Order Comment: Speci men Type: BLOOD SPECIMENOrdering Facility: [facility] Address: [address] [place] [address] Performed By: #### 5 8410-2 ####[facility] [id number] [place] [address] [place] Hemoglobin (Bld) [Mass/Vol] 11.1 g/dL Low 13.0-17.0 [facility] Comment on above: Order Comment: Speci men Type: BLOOD SPECIMENOrdering Facility: [facility] Address: [address] [place] [address] Performed By: #### 5 8410-2 ####[facility] H[facility]ITALLIA [id number] [place] [address] [place] MCH (RBC) [Entitic mass] 32.4 pg Normal 26.0-34.0 [facility] Comment on above: Order Comment: Speci men Type: BLOOD SPECIMENOrdering Facility: [facility] Address: [address] [place] [address] Performed By: #### 5 8410-2 ####[facility] DORYWNCLIA [id number] [place] [address] [place] MCHC (RBC) [Mass/Vol] 32.6 g/dL Normal 30.5-36.0 [facility] Comment on above: Order Comment: Speci men Type: BLOOD SPECIMENOrdering Facility: [facility] Address: [address] [place] [address] Performed By: #### 5 8410-2 ####[facility] RIVERSIDENCLIA [id number] [place] [address] [place] MCV (RBC) [Entitic vol] 99.4 fL Normal 80.0-100.0 [facility] Comment on above: Order Comment: Speci men Type: BLOOD SPECIMENOrdering Facility: [facility] Address: [address] [place] [address] Performed By: #### 5 8410-2 ####[facility] RIVERSIDENCLIA [id number] [place] [address] [place] Nucleated RBC (Bld) [#/Vol] 10*3/uL Normal <0.01 [facility] Comment on above: Order Comment: Speci men Type: BLOOD SPECIMENOrdering Facility: [facility] Address: [address] [place] [address] Performed By: #### 5 8410-2 ####[facility] RIVERSIDENCLIA [id number] [address] [place] Platelet mean volume (Bld) [Entitic vol] 9.4 fL Normal 9.0-12.7 [facility] Comment on above: Order Comment: Speci men Type: BLOOD SPECIMENOrdering Facility: [facility] Address: [address] [place] [address] Performed By: #### 5 8410-2 ####[facility] RIVERSIDENCLI [id number] [place] [address] [place] Platelets (Bld) [#/Vol] 259 10*3/uL Normal 150-400 [facility] Comment on above: Order Comment: Speci men Type: BLOOD SPECIMENOrdering Facility: [facility] Address: [address] [place] [address] Performed By: #### 5 8410-2 ####[facility] RIVERSIDENCLIA [id number] [place] [address] [place] RBC (Bld) [#/Vol] 3.43 10*6/uL Low 4.20-6.00 [facility] Comment on above: Order Comment: Speci men Type: BLOOD SPECIMENOrdering Facility: [facility] Address: [address] [place] [address] Performed By: #### 5 8410-2 ####[facility] RIVERSIDENCLIA [id number] [place] [address] [place] WBC (Bld) [#/Vol] 10.07 10*3/uL Normal 3.70-11.00 [facility] Comment on above: Order Comment: Speci men Type: BLOOD SPECIMENOrdering Facility: [facility] Address: [address] [place] [address] Performed By: #### 5 8410-2 ####[facility] RIVERSIDENCLIA [id number] [place] [address] [place] CNOVon 09-27-2024 CNOV Office Visit (INTMWS) KAM GREENBERG ([id number]) 1950 M Date Time Provider Department 09/27/24 1:20 PM ROYCE CARROLL INTMWS During your visit today, we recorded the following information about you: Temperature Pulse Respiration Blood pressure 97.9 degrees 76/minute 28/minute 108/54 Royce Carroll MD 09/27/2024 2:24 PM Signed Kam Greenberg is a 73 year old male here for a Medicare wellness visit. Medicare Health Risk Assessment General Health Fair Exercise: Minutes/Day 0 min Exercise: Days/Week 0 days Alcohol: Daily Use Never Alcohol: Drinks/Day Patient does not drink Alcohol: 6 or more drinks Never Feel off balance Yes Concerns: Teeth/Dentures No Concerns: Sexual function No Troubled by feelings Irritable; Anxious Frequency: Eating healthy diet Several days ADLs requiring help Grocery shopping; Cooking; Housework; Walking; Bathing; Driving; Handling finances Safety precautions in home/vehicle Yes Smoke, vape, chews tobacco Yes, but I'm not ready to quit Difficulty hearing Yes Difficulty seeing No Current Providers Specialists: I have reviewed specialist-related care of the patient in the medical record. Current care team: Patient Care Team: Royce Carroll MD as PCP - General Gabby Cannon APRN.WINERY WORKER as House Wrecker (Internal Medicine) Meghann Forman OD. Tabatha Jarrett MD Ophthalmology Clark Rothman MD, Pulmonary. Shaquille Castillo MD, Neurology. Sharon Limon DO, Vascular Surgery. Jair Miller DPM, Melinda, APRN WINERY WORKER, Lung Cancer Screening. Medical/Family history review Reviewed and updated problem list, medical/surgical/fam jeremi/social history, medications, and allergies. Opioid use review Opioid Medications (last 90 days) No data to display Anxiety/Depression screening Recommendation: continuing current treatment plan Cognitive screening Cognitive screening reviewed and No further action needed (score 3-5). Functional Observation Was the patient's Timed Up AND Go test unsteady or >= 12 seconds? No Advance Care Planning Patient did not wish or was not able to name a surrogate decision maker or provide an advance care plan Measurements BP 132/68 (BP Site: Right Arm, BP Position: Sitting, BP Cuff Size: Large Adult) Pulse 76 Temp 36.6 ?C (97.9 ?F) (Temporal) Resp 28 Vision Screening: Follows with optometry/ophthalmol ogy Assessment/Plan Medicare annual wellness visit, subsequent (Z00.00) - Counseled on healthy diet and regular exercise - Fall avoidance information provided - Personalized prevention plan provided - Smoking cessation encouraged; discussed risks to health and quitting strategies. Patient is not ready to quit Royce Carroll MD 09/27/2024 2:08 PM Addendum Advance Directive Forms Advanced Directives Forms (Georgian) FORMS: [email or web address]/1 [email or web address]/towg-rpsjcz-scvv- gdmyp-rw-zcfpmhgq.p- df INFORMATIONAL BROCHURE: [email or web address]/-/scasset s/files/org/patients -visitors/informati- on/advance-directive s.ashx?la=en Advance Directives (non-Georgian) FORMS: [email or web address]/ information/medical- decisions-guide/adv- ance-directives#form s-tab Please bring completed forms to your next appointment or email them to [email or web address]. Patient Resources How to Get Started Talking with Loved Ones about your Wishes at the End of Life https://theLongaccessversat [email or web address].org/wp-co ntent/uploads/ 2/ConversationProje- qe-BwzhvDhkiwvmOjb-W nglish.pdf How to Navigate Conversations with your Care Team around your Preferences [email or web address] Screening schedule The following prevention plan is recommended: DTaP,Tdap,Td Vaccine(2 - Td or Tdap) due on 11/19/2021 Advance Directive Discussion due on 07/28/2024 HbA1C due on 09/22/2024 Urine Albumin:Creatinine Ratio due on 09/19/2024 LDL Cholesterol due on 09/19/2024 Dilated Retinal Exam due on 10/08/2024 WHAT YOU CAN DO TO PREVENT FALLS Many falls can be prevented. By making some changes, you can lower your chances of falling. Four things YOU can do to prevent falls for you* and your caregiver 1. Begin a regular exercise program Exercise is one of the most important ways to lower your chances of falling. It makes you stronger and helps you feel better. Exercises that improve balance and coordination (like Dimas Chi) are the most helpful. Lack of exercise leads to weakness and increases your chances of falling. Ask your doctor or health care provider about the best type of exercise program for you. 2. Have your health care provider review your medicines Have your doctor or pharmacist review all the medicines you take, even fqpd-zul-rwommgg medicines. As you get older, the way medicines work in your body can change. Some medicines, or combinations of medicines, can m (more content not included)... Normal [facility] Comprehensive metabolic 2000 panelon 09-27-2024 Albumin [Mass/Vol] 3.7 g/dL Low 3.9-4.[address] [facility] Comment on above: Order Comment: Speci paula Type: BLOOD SPECIMENOrdering Facility: [facility] Address: [address] [place] [address] Performed By: #### 2 433-, ####[facility] LABORATORYCLIA [id number] [address] [place] ALP [Catalytic activity/Vol] 127 U/L High 38-113 [facility] Comment on above: Order Comment: Jenniferi paula Type: BLOOD SPECIMENOrdering Facility: [facility] Address: [address] [place] [address] Performed By: #### 2 433-, ####[facility] LABORATORYCLIA [id number] [address] [place] ALT With P-5'-P [Catalytic activity/Vol] U/L Low 10-54 [facility] Comment on above: Order Comment: Speci men Type: BLOOD SPECIMENOrdering Facility: [facility] Address: [address] [place] [address] Performed By: #### 2 433-, ####[facility] GENERAL LABORATORYCLIA [id number] [address] [place] Anion gap [Moles/Vol] 13 mmol/L Normal 8-15 [facility] Comment on above: Order Comment: Speci men Type: BLOOD SPECIMENOrdering Facility: [facility] Address: [address] [place] [address] Performed By: #### 2 4331-1, 94243-9 ####[facility] LABORATORYCLIA [id number] [place] [address] [place] AST With P-5'-P [Catalytic activity/Vol] 18 U/L Normal 14-40 [facility] Comment on above: Order Comment: Speci men Type: BLOOD SPECIMENOrdering Facility: [facility] Address: [address] [place] [address] Performed By: #### 2 4331-1, 88058-5 ####[facility] LABORATORYCLIA [id number] [place] [address] [place] Bilirubin [Mass/Vol] 0.3 mg/dL Normal 0.2-1.3 [facility] Comment on above: Order Comment: Speci men Type: BLOOD SPECIMENOrdering Facility: [facility] Address: [address] [place] [address] Performed By: #### 2 4331-, 60841-0 ####[facility] LABORATORYCLIA [id number] [place] [address] [place] Calcium [Mass/Vol] 8.7 mg/dL Normal 8.5-10.[address] [facility] Comment on above: Order Comment: Speci men Type: BLOOD SPECIMENOrdering Facility: [facility] Address: [address] [place] [address] Performed By: #### 2 4331-, 52588-5 ####[facility]ORATORYCLIA [id number] [place] [id number] [place] Chloride [Moles/Vol] 99 mmol/L Normal 98-107 [facility] Comment on above: Order Comment: Speci men Type: BLOOD SPECIMENOrdering Facility: [facility] Address: [address] [place] [address] Performed By: #### 2 4331-1, 66665-5 ####[facility]ORATORYCLIA [id number] [place] [address] [place] CO2 [Moles/Vol] 25 mmol/L Normal 22-30 [facility] Comment on above: Order Comment: Speci men Type: BLOOD SPECIMENOrdering Facility: [facility] Address: [address] [place] [address] Performed By: #### 2 4331-1, 03465-7 ####[facility] LABORATORYCLIA [id number] [place] [id number] [place] Creatinine [Mass/Vol] 1.33 mg/dL High 0.73-1.22 [facility] Comment on above: Order Comment: Speci men Type: BLOOD SPECIMENOrdering Facility: [facility] Address: [address] [place] [address] Performed By: #### 2 4331-1, 94512-8 ####iikoW[facility]IAMSON [facility]ORATORYCLIA [id number] [address] Creatinine and Glomerular filtration rate.predicted panel (S/P/Bld) 57 mL/min/1.73m??? Low >=60 [facility] Comment on above: Order Comment: Speci men Type: BLOOD SPECIMENOrdering Facility: [facility] Address: [address] [place] [address] Result Comment: Kadie mated Glomerular Filtration Rate (eGFR) is calculated using the 2020 CKD-EPI creatinine equation. This equation utilizes serum creatinine, sex, and age as parameters. The creatinine assay has traceable calibration to isotope dilution-mass spectrometry. Refer to KDIGO guidelines for clinical interpretation. In patients with unstable renal function, e.g. those with acute kidney injury, the eGFR may not accurately reflect actual GFR. Performed By: #### 2 4331-1, 84781-1 ####[facility] LABORATORYCLIA [id number] [place] [id number] [place] Glucose [Mass/Vol] 112 mg/dL High 74-[address] [facility] Comment on above: Order Comment: Speci men Type: BLOOD SPECIMENOrdering Facility: [facility] Address: [address], [place] [address] Result Comment: The [place] Diabetes Association (ADA) provides guidance for cutoff values for fasting glucose and random glucose. The ADA defines fasting as no caloric intake for at least 8 hours. Fasting plasma glucose results between 100 to 125 mg/dL indicate increased risk for diabetes (prediabetes). Fasting plasma glucose results greater than or equal to 126 mg/dL meet the criteria for diagnosis of diabetes. In the absence of unequivocal hyperglycemia, results should be confirmed by repeat testing. In a patient with classic symptoms of hyperglycemia or hyperglycemic crisis, random plasma glucose results greater than or equal to 200 mg/dL meet the criteria for diagnosis of diabetes. Reference: Standards of Medical Care in Diabetes 2016, [place] Diabetes Association. Diabetes Care. 2016.39(Suppl 1). Performed By: #### 2 4331-, 42251-6 ####[facility] LABORATORYCLIA [id number] [place] [address] [place] Potassium [Moles/Vol] 4.9 mmol/L Normal 3.7-5.1 [facility] Comment on above: Order Comment: Speci men Type: BLOOD SPECIMENOrdering Facility: [facility] Address: [address] [place] [address] Performed By: #### 2 433-, ####[facility] LABORATORYCLIA [id number] [place] [address] [place] Protein [Mass/Vol] 7.1 g/dL Normal 6.3-8.[address] [facility] Comment on above: Order Comment: Speci men Type: BLOOD SPECIMENOrdering Facility: [facility] Address: [address] [place] [address] Performed By: #### 2 433-, ####[facility] LABORATORYCLIA [id number] [place] [address] [place] Sodium [Moles/Vol] 137 mmol/L Normal 136-[address] [facility] Comment on above: Order Comment: Speci men Type: BLOOD SPECIMENOrdering Facility: [facility] Address: [address] [place] [address] Performed By: #### 2 433-, 32809-7 ####[facility] LABORATORYCLIA [id number] [place] [id number] [place] Urea nitrogen [Mass/Vol] 16 mg/dL Normal 9-24 [facility] Comment on above: Order Comment: Hemal mitchell Type: BLOOD SPECIMENOrdering Facility: [facility] Address: [address] [place] [address] Performed By: #### 2 4331-1, 96922-4 ####[facility] LABORATORYCLIA [id number] [address] [place] HbA1c (Bld)on 09-27-2024 Average glucose Estimated from glycated hemoglobin (Bld) [Mass/Vol] 137 mg/dL Normal [facility] Comment on above: Order Comment: Hemal mitchell Type: BLOOD SPECIMENOrdering Facility: [facility] Address: [address] [place] [address] Result Comment: eAG: (Estimated average glucose) is a calculated value from HgbA1c and is exhibit display representative of the average blood glucose level in the last 2-3 month period. Performed By: #### 5 5454-3 ####[facility] LABCLIA [id number] [address] STATES [place] [facility] HbA1c (Bld) [Mass fraction] 6.4 % High 4.3-5.6 [facility] Comment on above: Order Comment: Hemal mitchell Type: BLOOD SPECIMENOrdering Facility: [facility] Address: [address] [place] [address] Result Comment: Amer [place] Diabetes Association guidelines indicate that patients with HgbA1c in the range 5.7-6.4% are at increased risk for development of diabetes, and intervention by lifestyle modification may be beneficial. HgbA1c greater or equal to 6.5% is considered diagnostic of diabetes. Performed By: #### 5 5454-3 ####[facility] LABCLIA [id number] [place] [id number] [place] Lipid 1996 panelon 5 Cholesterol [Mass/Vol] 94 mg/dL Normal <200 [facility] Comment on above: Order Comment: Speci men Type: BLOOD SPECIMENOrdering Facility: [facility] Address: [address] [place] [address] Result Comment: <200 mg/dL, Desirable 200-239 mg/dL, Borderline high >239 mg/dL, High Performed By: #### 2 4331-1, 21222-0 ####[facility] LABORATORYCLIA [id number] [place], [place] [id number] [place] [address] OF [facility] Cholesterol in HDL [Mass/Vol] 43 mg/dL Normal >39 [facility] Comment on above: Order Comment: Speci men Type: BLOOD SPECIMENOrdering Facility: [facility] Address: [address] [place] [address] Result Comment: 40-5 9 mg/dL, Acceptable >59 mg/dL, High: Negative risk factor for coronary heart disease <40 mg/dL, Low: Positive risk factor for coronary heart disease Performed By: #### 2 4331-1, ####[facility] LABORATORYCLIA [id number] [address] [place] Cholesterol in LDL [Mass/Vol] 37 mg/dL Normal <100 [facility] Comment on above: Order Comment: Speci men Type: BLOOD SPECIMENOrdering Facility: [facility] Address: [address] [place] [address] Result Comment: <100 mg/dL, Optimal 100-129 mg/dL, Near optimal/above optimal 130-159 mg/dL, Borderline high 160-189 mg/dL, High >189 mg/dL, Very high Secondary prevention optimal LDL Cholesterol levels are recommended to be < 70 mg/dL Performed By: #### 2 4331-1, ####[place] [facility] LABORATORYCLIA [id number] [address] [place] Cholesterol in LDL/Cholesterol in HDL [Mass ratio] 0.86 {ratio} Normal <2.54 [facility] Comment on above: Order Comment: Speci men Type: BLOOD SPECIMENOrdering Facility: [facility] Address: [address] [place] [address] Result Comment: Freedom smith: 1. National Cholesterol Education Program ATP III Guideline At-A-Glance Quick Desk Reference: National Heart, Lung, and Blood [place]. National Institutes of Health. 2001: NIH Publication No. 01-3305. 2. An International Atherosclerosis Society position paper: global recommendations for the management of dyslipidemia: executive summary, Atherosclerosis. 2014: 232(2):410-413. Performed By: #### 2 4331-1, 10937-7 ####[facility] LABORATORYCLIA [id number] [address] [place] Cholesterol in VLDL [Mass/Vol] 14 mg/dL Normal <30 [facility] Comment on above: Order Comment: Speci men Type: BLOOD SPECIMENOrdering Facility: [facility] Address: [address] [place] [address] Performed By: #### 2 4331-1, 74648-9 ####[facility] LABORATORYCLIA [id number] [address] Cholesterol non HDL [Mass/Vol] 51 mg/dL Normal <130 [facility] Comment on above: Order Comment: Hemal mitchell Type: BLOOD SPECIMENOrdering Facility: [facility] Address: [address] [place] [address] Result Comment: <130 mg/dL, Optimal 130-159 mg/dL, Near optimal/above optimal 160-189 mg/dL, Borderline high 190-219 mg/dL, High >219 mg/dL, Very high Secondary prevention optimal non HDL Cholesterol levels are recommended to be <100 mg/dL Performed By: #### 2 4331-, 58979-7 ####[facility] LABORATORYCLIA [id number] [address] STATES [facility] Cholesterol.total/Madeline sterol in HDL [Mass ratio] 2.19 {ratio} Normal <5.10 [facility] Comment on above: Order Comment: Heaml mitchell Type: BLOOD SPECIMENOrdering Facility: [facility] Address: [address] [place] [address] Performed By: #### 2 4331-1, 80457-3 ####[facility] LABORATORYCLIA [id number] [address] [place] FASTING TIME 19 hrs Normal [facility] Comment on above: Order Comment: Speci men Type: BLOOD SPECIMENOrdering Facility: [facility] Address: [address] [place] [address] Performed By: #### 2 4331-1, 83277-5 ####[facility] LABORATORYCLIA [id number] [address] Triglyceride [Mass/Vol] 71 mg/dL Normal <150 [facility] Comment on above: Order Comment: Speci men Type: BLOOD SPECIMENOrdering Facility: [facility] Address: [address] [place] [address] Result Comment: <150 mg/dL, Normal 150-199 mg/dL, Borderline high 200-499 mg/dL, High >499 mg/dL, Very high Performed By: #### 2 4331-1, 36525-4 ####[facility] LABORATORYCLIA [id number] [address] 09-24-2024 [facility] Telephone (GABE) KAM GREENBERG ([id number]) 1950 Date Time Provider Department 09/24/24 CHIQUIS BOYER During your visit today, we recorded the following information about you: Chiquis Boyer MSW 09/24/2024 3:17 PM Addendum Patient left Sw message that he would like call back to let him know what to do with patient assistance forms as he mentioned that he completed forms. Sw left patient message requesting call back to discuss prescription assistance forms for inhaler. Chiquis Boyer MSW 09/27/2024 1:13 PM Signed Medardo tried to call patient again to discuss prescription assistance forms. Medardo received messagewe're sorry all circuits are busy now, please try call again later. Sw tried call 2x and received this same message. Sw will try call another time. Chiquis Boyer MSW 09/28/2024 10:17 AM Signed left message for patient to return Sw call to discuss prescription assistance forms for inhaler. Allergies As of Date: 09/24/2024 Noted Allergy Reaction LISINOPRIL 11/15/2019 18 - Angioedema MORPHINE 06/07/2008 12 - Shortness of Breath Comments: rapid heart rate OYSTERS 04/01/2017 8 - GI Upset TYLENOL (ACETAMINOPHEN) 10/16/2005 13 - Dystonia Comments: flushed, cold sweats, shakey Date Reviewed: 09/13/2024 Reviewed by: Gianni Velazquez APRN.WINERY WORKER - Fully Assessed Prescriptions as of 09/30/2024 - amLODIPine (NORVASC) 5 mg tablet Take 1 tablet by mouth once daily. - atorvastatin (LIPITOR) 40 mg tablet Take 1 tablet by mouth daily at bedtime. - clopidogrel (PLAVIX) 75 mg tablet Take 1 tablet by mouth once daily. - fluticasone (FLONASE) 50 mcg/actuation nasal spray Use 1 [place] in each nostril two times a day. - metFORMIN (GLUCOPHAGE) 500 mg tablet Take 1 tablet by mouth two times a day with meals. - metoprolol tartrate, short acting, (LOPRESSOR) 50 mg tablet Take 1 tablet by mouth two times a day. - sertraline (ZOLOFT) 100 mg tablet Take 1 tablet by mouth once daily. - primidone (MYSOLINE) 50 mg tablet Take 1 tablet by mouth two times a day. - fluticasone-umeclidi n-vilanter (TRELEGY ELLIPTA) 100-62.5-25 mcg inhalation powder Inhale 1 Puff as instructed once daily. - ipratropium-albutero l (DUONEB) 0.5 mg-3 mg(2.5 mg base)/3 mL nebu Inhale 3 mL as instructed four times daily. - blood sugar diagnostic (BLOOD GLUCOSE TEST) test strip Test blood sugar(s) 2 times daily. Dx: Other DM Code E11.41 Insulin: No - albuterol HFA (VENTOLIN HFA) 90 mcg/actuation inhaler Inhale 2 Puffs as instructed every 4 hours as needed for wheezing/shortness of breath. - Blood-Glucose Meter monitoring kit Glucose Meter of Choice - Kit - Dx: Other DM Code E11.49 - saw/vit E/sod miguel/lyc/beta/pyg (PROSTATE HEALTH ORAL) Take 3 tablets by mouth once daily. - multivit with minerals/lutein (MULTI-ISABELLE 50 AND OVER ORAL) Take 1 tablet by mouth once daily. - nitroglycerin sublingual (NITROSTAT) 0.4 mg SL tablet Dissolve 1 tablet under the tongue every 5 minutes as needed. - aspirin, enteric coated (ADULT LOW DOSE ASPIRIN) 81 mg EC tablet Take 1 tablet by mouth once daily. Problem List As Of Date 09/24/2024 Noted Resolved DYSMETABOLIC SYNDROME X [E88.810] 11/07/2005 Esophageal reflux [K21.9] 09/29/2017 Hyperlipemia [E78.5] Coronary atherosclerosis [I25.10] GENERAL OSTEOARTHROSIS [M15.9] 10/16/2005 Type II or unspecified type diabetes mellitus w*10/21/2005 11/22/2013 Peripheral vascular disease (HCC) [I73.9] 11/06/2005 11/13/2020 Degeneration of thoracolumbar intervertebral di*11/06/2005 Essential hypertension [I10] 11/06/2005 Polyneuropathy in diabetes(357.2) (HCC) [E11.4*11/07/2005 11/22/2013 Late effects of CVA (cerebrovascular accident) *03/17/2007 Other acquired deformity of toe [M20.5X9] 03/23/2009 09/29/2017 Dermatophytosis of nail [B35.1] 03/23/2009 09/29/2017 Type 2 diabetes mellitus with diabetic mononeur*08/23/2010 Adhesive capsulitis of shoulder [M75.00] 10/19/2010 11/20/2011 Tobacco use disorder [F17.200] 05/25/2012 05/23/2023 Rhinitis [J31.0] 11/20/2012 Anxiety disorder [F41.9] 01/31/2009 S/P coronary artery stent placement [Z95.5] 06/06/2015 S/P CABG x 3 [Z95.1] 06/06/2015 Essential tremor [G25.0] 11/23/2015 Stenosis of left carotid artery [I65.22] 04/03/2016 Stage 3a chronic kidney disease (HCC) [N18.31] 04/17/2018 Type 2 diabetes mellitus with diabetic peripher*09/18/2020 At risk for falls [Z91.81] 06/29/2021 Lung nodule < 6cm on CT [ZXK7824] 10/17/2021 07/04/2022 Abnormality of gait [R26.9] 11/13/2021 Lumbar spondylosis [M47.816] 11/13/2021 01/15/2023 History of stroke [Z86.73] 11/13/2021 01/15/2023 Chronic obstructive pulmonary disease with (acu*12/11/2022 Chronic respiratory failure with hypoxia (HCC) *01/15/2023 Chronic diastolic CHF (congestive heart failure*01/15/2023 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 Normal [facility] CNPNon 09-14-2024 CNPN Telephone (GABE) KAM GREENBERG ([id number]) 1950 M Date Time Provider Department 09/14/24 CHIQUIS BOYER During your visit today, we recorded the following information about you: Chiquis Boyer MSW 09/14/2024 10:52 AM Signed Medardo left message for patient to return Medardo call to discuss trelegy inhaler cost issue and [employer] PAP program. Chiquis Boyer MSW 09/14/2024 4:04 PM Signed Medardo spoke with patient in regards to [employer] PAP for Trelegy. Patient asks that Medardo mail application to his home to review out of pocket spend out at pharmacy. Medardo reviewed patient income and patient notes that he is under the $61,000 for 2 people income guideline. Sw verified address and noted Sw direct number on forms. Allergies As of Date: 09/14/2024 Noted Allergy Reaction LISINOPRIL 11/15/2019 18 - Angioedema MORPHINE 06/07/2008 12 - Shortness of Breath Comments: rapid heart rate OYSTERS 04/01/2017 8 - GI Upset TYLENOL (ACETAMINOPHEN) 10/16/2005 13 - Dystonia Comments: flushed, cold sweats, shakey Date Reviewed: 09/13/2024 Reviewed by: Gianni Velazquez APRN.WINERY WORKER - Fully Assessed Prescriptions as of 09/14/2024 - iv contrast (will be provided with radiology test) CT Chest W -Inject, intravenously, once for 1 dose.No IV access, insert saline lock prior to the beginning of sedation, infusion, injection of imaging exam. Discontinue saline lock post exam. If Pt. has a central line or IVAD, may access for administration according to line specific nursing protocol. Once exam is complete flush line and de-access according to line specific nursing protocol in the CT contrast administration guidelines link. - primidone (MYSOLINE) 50 mg tablet Take 1 tablet by mouth two times a day. - fluticasone-umeclidi n-vilanter (TRELEGY ELLIPTA) 100-62.5-25 mcg inhalation powder Inhale 1 Puff as instructed once daily. - atorvastatin (LIPITOR) 40 mg tablet Take 1 tablet by mouth daily at bedtime. - metoprolol tartrate, short acting, (LOPRESSOR) 50 mg tablet Take 1 tablet by mouth two times a day. - ipratropium-albutero l (DUONEB) 0.5 mg-3 mg(2.5 mg base)/3 mL nebu Inhale 3 mL as instructed four times daily. - amLODIPine (NORVASC) 5 mg tablet Take 1 tablet by mouth once daily. - blood sugar diagnostic (BLOOD GLUCOSE TEST) test strip Test blood sugar(s) 2 times daily. Dx: Other DM Code E11.41 Insulin: No - fluticasone (FLONASE) 50 mcg/actuation nasal spray Use 1 [place] in each nostril two times a day. - clopidogrel (PLAVIX) 75 mg tablet Take 1 tablet by mouth once daily. - metFORMIN (GLUCOPHAGE) 500 mg tablet Take 1 tablet by mouth two times a day with meals. - sertraline (ZOLOFT) 100 mg tablet Take 1 tablet by mouth once daily. - albuterol HFA (VENTOLIN HFA) 90 mcg/actuation inhaler Inhale 2 Puffs as instructed every 4 hours as needed for wheezing/shortness of breath. - Blood-Glucose Meter monitoring kit Glucose Meter of Choice - Kit - Dx: Other DM Code E11.49 - saw/vit E/sod miguel/lyc/beta/pyg (PROSTATE HEALTH ORAL) Take 3 tablets by mouth once daily. - multivit with minerals/lutein (MULTI-ISABELLE 50 AND OVER ORAL) Take 1 tablet by mouth once daily. - nitroglycerin sublingual (NITROSTAT) 0.4 mg SL tablet Dissolve 1 tablet under the tongue every 5 minutes as needed. - aspirin, enteric coated (ADULT LOW DOSE ASPIRIN) 81 mg EC tablet Take 1 tablet by mouth once daily. Problem List As Of Date 09/14/2024 Noted Resolved DYSMETABOLIC SYNDROME X [E88.810] 11/07/2005 Esophageal reflux [K21.9] 09/29/2017 Hyperlipemia [E78.5] Coronary atherosclerosis [I25.10] GENERAL OSTEOARTHROSIS [M15.9] 10/16/2005 Type II or unspecified type diabetes mellitus w*10/21/2005 11/22/2013 Peripheral vascular disease (HCC) [I73.9] 11/06/2005 11/13/2020 Degeneration of thoracolumbar intervertebral di*11/06/2005 Essential hypertension [I10] 11/06/2005 Polyneuropathy in diabetes(357.2) (HCC) [E11.4*11/07/2005 11/22/2013 Late effects of CVA (cerebrovascular accident) *03/17/2007 Other acquired deformity of toe [M20.5X9] 03/23/2009 09/29/2017 Dermatophytosis of nail [B35.1] 03/23/2009 09/29/2017 Type 2 diabetes mellitus with diabetic mononeur*08/23/2010 Adhesive capsulitis of shoulder [M75.00] 10/19/2010 11/20/2011 Tobacco use disorder [F17.200] 05/25/2012 05/23/2023 Rhinitis [J31.0] 11/20/2012 Anxiety disorder [F41.9] 01/31/2009 S/P coronary artery stent placement [Z95.5] 06/06/2015 S/P CABG x 3 [Z95.1] 06/06/2015 Essential tremor [G25.0] 11/23/2015 Stenosis of left carotid artery [I65.22] 04/03/2016 Stage 3a chronic kidney disease (HCC) [N18.31] 04/17/2018 Type 2 diabetes mellitus with diabetic peripher*09/18/2020 At risk for falls [Z91.81] 06/29/2021 Lung nodule < 6cm on CT [IWT1279] 10/17/2021 07/04/2022 Abnormality of gait [R26.9] 11/13/2021 Lumbar spondylosis [M47.816] 11/13/2021 01/15/2023 History of stroke [Z86.73] (more content not included)... Normal [facility] CNOVon 09-13-2024 CNOV Office Visit (PULMWS) KAM GREENBERG ([id number]) 1950 Date Time Provider Department 09/13/24 2:30 PM GIANNI VELAZQUEZ During your visit today, we recorded the following information about you: Gianni Velazquez APRN.CNP 09/13/2024 7:22 PM Signed LUNG SCREENING ANNUAL VISIT PRIMARY CARE PHYSICIAN: Royce Carroll MD PULMONARY PROVIDER: Dr. Jeannine Rothman Results will be communicated via letter or electronic record if applicable. Visit Delivery: In Person Patient Visit Type: established Current or Ex-smoker? Ex Exam Type: annual LDCT Number of Pack Years: 55 Current smoker (=0) or Number of Years since Quit: 2 The patient's smoking history is similar to prior year shared decision visit. The reason for the discrepancy is NA Chief Complaint: Established patient in lung cancer screening program here for annual follow-up. Impression / Recommendations Kam Greenberg presents for annual lung cancer screening annual exam and nodule evaluation. Plan: Indeterminate pulmonary nodules: Previously identified nodules appear stable and no new nodules of concern were seen on the exam. Low dose CT Scan to be repeated in one year. Nature of the lung nodule(s) and the options for further evaluation discussed in detail with patient. Kam Snow Greenberg expressed understanding and is in agreement with plan. 2. Encounter for screening for malignant neoplasm of respiratory organs I have determined that the patient is eligible for continued low dose CT screening based on age, absence of signs or symptoms of lung cancer, smoking history and total pack years. The patient was counseled on the importance of adherence to annual LDCT lung cancer screening, impact of comorbidities and ability or willingness to undergo diagnosis and treatment. The patient understands and feels comfortable with it: Yes. 3. Nicotine Dependence The patient was counseled on the importance of maintaining cigarette smoking abstinence - The patient is committed to remaining abstinent from tobacco. 4. Localized enlarged lymph nodes (Primary) Case reviewed with Dr. Chi Mireles. Plan to repeat CT Chest in 3 months from 07/23/2024 LDCT.. Will be with IV contrast. He has labs ordered by PCP to be done in the next 2 weeks. Pt plans to do those soon. Discussed may need EBUS biopsy of lymph nodes. - CT CHEST W IVCON; Future I spent a total of 30 minutes on the date of the service which included preparing to see the patient, [id number] patient care, completing clinical documentation, performing a medically appropriate examination, counseling and educating the patient/family/careg iver, ordering medications, tests, or procedures, communicating with other HCPs (not separately reported), independently interpreting results (not separately reported), and communicating results to the patient/family/careg iver. Gianni Velazquez, FLOYD.WINERY WORKER September 13, 2024 2:10 PM History of Present Illness: Kam Greenberg is a 73 year old male who is presenting today for annual lung cancer screening LDCT and nodule surveillance/managem ent. Patient has multiple nodules found on previous lung cancer screening LDCT. Last LDCT was performed on 07/23/2024 and was LUNG RADS Category 2. Previous potentially significant incidental findings on imaging: increasing in size lymph nodes anterior right bronchus and subcarinal. Patient is a former smoker with a 55 pack year history. Patient quit smoking 2 years ago at age 72. Patient will continue to be eligible for lung cancer screening until age 78. The patient does not have any symptoms or signs of lung cancer. Patient has SOB with their daily activity. He is on 4L of portable oxygen. Increases to 6 L with activity. No wheezing or dyspnea. Patient denies feeling of chest tightness/congestion in the chest. Patient does not have a new or concerning cough, and denies hemoptysis. Patient does not have a chronic daily cough. Denies regular or recent fevers/chills. Patient does not have any significant unintentional weight loss. Patient denies having any respiratory infections or COVID-19 in the past few months. Modified Medical Research [place] Dyspnea Scale (MMRC) I am too breathless to leave the house or I am breathless when dressing 4 Last 12 Encounter Wt Readings: Date: Wt: 07/01/2024 80.3 kg (177 lb) 06/23/2024 81.8 kg (180 lb 5.4 oz) 03/22/2024 82.5 kg (181 lb 14.1 oz) 01/19/2024 80.4 kg (177 lb 4 oz) 12/18/2023 80.3 kg (177 lb) 12/02/2023 82.1 kg (181 lb) 09/19/2023 82.6 kg (182 lb) 06/13/2023 83.5 kg (184 lb) 05/28/2023 82.1 kg (181 lb) 05/27/2023 82.2 kg (181 lb 3.2 oz) 05/23/2023 81.6 kg (180 lb) 05/01/2023 83 kg (182 lb 14.4 oz) Social History Tobac (more content not included)... Normal [facility] CNOVon 09-03-2024 CNOV Office Visit (PODIWS) KAM GREENBERG ([id number]) 1950 M Date Time Provider Department 09/03/24 1:00 PM OLU MILLER PODIWS During your visit today, we recorded the following information about you: Xi Finn LPN 09/03/2024 1:17 PM Signed AMB ROOMING INTAKE FLOWSHEET DATA Patient presents with: Right Foot - Established Patient, Diabetic Foot Care Left Foot - Established Patient, Diabetic Foot Care JERI Colbert Matthew 09/03/2024 1:06 PM Signed Diabetes Foot Care Instructions When you have diabetes, proper foot care is very important. Poor foot care may lead to amputation of a foot or leg. As a person with diabetes, you are more vulnerable to foot problems, because diabetes can damage your nerves and reduce blood flow to your feet. Here are some diabetes foot care tips to follow: Wash and Dry Your Feet Daily Use mild soaps Use warm water Pat your skin dry; do not rub. Thoroughly dry your feet. After washing, use lotion on your feet to prevent cracking. Do not put lotion between your toes. Examine Your Feet Each Day Check the tops and bottoms of your feet. Have someone else look at your feet if you cannot see them. Check for dry, cracked skin. Look for blisters, cuts, scratches, or other sores. Check for redness, increased warmth, or tenderness when touching any area of your feet. Check for ingrown toenails, corns, and calluses. If you get a blister or sore from your shoes, do not pop it. Apply a bandage and wear a different pair of shoes. Take Care of Your Toenails Cut toenails after bathing, when they are soft. Cut toenails straight across and smooth with a nail file. Avoid cutting into the corners of toes. Do not cut cuticles. If you have neuropathy (or decreased sensation in your feet) a non destructive testing inspector should always cut your toenails. Be Careful When Exercising Walk and exercise in comfortable shoes. Do not exercise when you have open sores on your feet. Protect Your Feet With Shoes and Socks Never go barefoot. Always protect your feet by wearing shoes or hard-soled slippers or footwear. Avoid shoes with high heels and pointed toes. Avoid shoes that expose your toes or heels (such as open-toed shoes or sandals). These types of shoes increase your risk for injury and potential infections. Try on new footwear with the type of socks you usually wear. Do not wear new shoes for more than an hour at a time. Change your socks daily. Look and feel inside your shoes before putting them on to make sure there are no foreign objects or rough areas. Avoid tight socks. Wear natural-fiber socks (cotton, wool, or a cotton-wool blend). Wear special shoes if your health care provider recommends them. Wear shoes/boots that will protect your feet from various weather conditions (cold, moisture, etc.). Make sure your shoes fit properly. If you have neuropathy (nerve damage), you may not notice that your shoes are too tight. Perform the footwear test described below. Footwear Test Use this simple test to see if your shoes fit correctly: Stand on a piece of paper. (Make sure you are standing and not sitting, because your foot changes shape when you stand.) Trace the outline of your foot. Trace the outline of your shoe. Compare the tracings: Is the shoe too narrow? Is your foot crammed into the shoe? The shoe should be at least 1/2 inch longer than your longest toe and as wide as your foot. Proper Shoe Choices The following types of shoes are best for people with diabetes Closed toes and heels Leather uppers without a seam inside At least 1/2 inch extra space at the end of your longest toe Inside of shoe should be soft with no rough areas Outer sole should be made of stiff material Shoes should be at least as wide as your feet Tips for Foot Care in Diabetes Don't wait to treat a minor foot problem if you have diabetes. Follow your health care provider's guidelines and first aid guidelines. Report foot injuries and infections to your health care provider immediately. Check water temperature with your elbow, not your foot. Do not use a heating pad on your feet. Do not cross your legs. Do not self-treat your corns, calluses, or other foot problems. Go to your health care provider or non destructive testing inspector to treat these conditions. Olu Miller 09/03/2024 1:17 PM Signed Last saw pcp: 06/23/24 Subjective: Patient presents to clinic c/o painful toenails. They state that the nails are especially painful with shoe gear and pressure. Patient states that nails 1-5 b/l are painful. Patient admits to being diabetic. No other pedal complaints at this time. Patient states no change in medications or medical history since last visit. Objective: Patient presents to clinic ambulating in [facility] Vasc: DP and PT pulses are faintly palpable bilateral. CFT is less than 5 (more content not included)... Normal [facility] 09-03-2024 CNPN Telephone (INTMWS) KAM GREENBERG ([id number]) 1950 M Date Time Provider Department 09/03/24 ROYCE CRAROLL INTMWS During your visit today, we recorded the following information about you: Bozena Eng RN 09/03/2024 10:06 AM Signed Karen calling from [facility] with appt related question. Information discussed. Bozena Eng RN Allergies As of Date: 09/03/2024 Noted Allergy Reaction LISINOPRIL 11/15/2019 18 - Angioedema MORPHINE 06/07/2008 12 - Shortness of Breath Comments: rapid heart rate OYSTERS 04/01/2017 8 - GI Upset TYLENOL (ACETAMINOPHEN) 10/16/2005 13 - Dystonia Comments: flushed, cold sweats, shakey Date Reviewed: 07/01/2024 Reviewed by: Miryam Webber RPFT - Fully Assessed Reason for Visit: Patient Question [1477] Prescriptions as of 09/03/2024 - primidone (MYSOLINE) 50 mg tablet Take 1 tablet by mouth two times a day. - fluticasone-umeclidi n-vilanter (TRELEGY ELLIPTA) 100-62.5-25 mcg inhalation powder Inhale 1 Puff as instructed once daily. - atorvastatin (LIPITOR) 40 mg tablet Take 1 tablet by mouth daily at bedtime. - metoprolol tartrate, short acting, (LOPRESSOR) 50 mg tablet Take 1 tablet by mouth two times a day. - ipratropium-albutero l (DUONEB) 0.5 mg-3 mg(2.5 mg base)/3 mL nebu Inhale 3 mL as instructed four times daily. - amLODIPine (NORVASC) 5 mg tablet Take 1 tablet by mouth once daily. - blood sugar diagnostic (BLOOD GLUCOSE TEST) test strip Test blood sugar(s) 2 times daily. Dx: Other DM Code E11.41 Insulin: No - fluticasone (FLONASE) 50 mcg/actuation nasal spray Use 1 [place] in each nostril two times a day. - clopidogrel (PLAVIX) 75 mg tablet Take 1 tablet by mouth once daily. - metFORMIN (GLUCOPHAGE) 500 mg tablet Take 1 tablet by mouth two times a day with meals. - sertraline (ZOLOFT) 100 mg tablet Take 1 tablet by mouth once daily. - albuterol HFA (VENTOLIN HFA) 90 mcg/actuation inhaler Inhale 2 Puffs as instructed every 4 hours as needed for wheezing/shortness of breath. - Blood-Glucose Meter monitoring kit Glucose Meter of Choice - Kit - Dx: Other DM Code E11.49 - saw/vit E/sod miguel/lyc/beta/pyg (PROSTATE HEALTH ORAL) Take 3 tablets by mouth once daily. - multivit with minerals/lutein (MULTI-ISABELLE 50 AND OVER ORAL) Take 1 tablet by mouth once daily. - nitroglycerin sublingual (NITROSTAT) 0.4 mg SL tablet Dissolve 1 tablet under the tongue every 5 minutes as needed. - aspirin, enteric coated (ADULT LOW DOSE ASPIRIN) 81 mg EC tablet Take 1 tablet by mouth once daily. Problem List As Of Date 09/03/2024 Noted Resolved DYSMETABOLIC SYNDROME X [E88.810] 11/07/2005 Esophageal reflux [K21.9] 09/29/2017 Hyperlipemia [E78.5] Coronary atherosclerosis [I25.10] GENERAL OSTEOARTHROSIS [M15.9] 10/16/2005 Type II or unspecified type diabetes mellitus w*10/21/2005 11/22/2013 Peripheral vascular disease (HCC) [I73.9] 11/06/2005 11/13/2020 Degeneration of thoracolumbar intervertebral di*11/06/2005 Essential hypertension [I10] 11/06/2005 Polyneuropathy in diabetes(357.2) (HCC) [E11.4*11/07/2005 11/22/2013 Late effects of CVA (cerebrovascular accident) *03/17/2007 Other acquired deformity of toe [M20.5X9] 03/23/2009 09/29/2017 Dermatophytosis of nail [B35.1] 03/23/2009 09/29/2017 Type 2 diabetes mellitus with diabetic mononeur*08/23/2010 Adhesive capsulitis of shoulder [M75.00] 10/19/2010 11/20/2011 Tobacco use disorder [F17.200] 05/25/2012 05/23/2023 Rhinitis [J31.0] 11/20/2012 Anxiety disorder [F41.9] 01/31/2009 S/P coronary artery stent placement [Z95.5] 06/06/2015 S/P CABG x 3 [Z95.1] 06/06/2015 Essential tremor [G25.0] 11/23/2015 Stenosis of left carotid artery [I65.22] 04/03/2016 Stage 3a chronic kidney disease (HCC) [N18.31] 04/17/2018 Type 2 diabetes mellitus with diabetic peripher*09/18/2020 At risk for falls [Z91.81] 06/29/2021 Lung nodule < 6cm on CT [CGM4897] 10/17/2021 07/04/2022 Abnormality of gait [R26.9] 11/13/2021 Lumbar spondylosis [M47.816] 11/13/2021 01/15/2023 History of stroke [Z86.73] 11/13/2021 01/15/2023 Chronic obstructive pulmonary disease with (acu*12/11/2022 Chronic respiratory failure with hypoxia (HCC) *01/15/2023 Chronic diastolic CHF (congestive heart failure*01/15/2023 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] 05/06/2023 05/06/2023 Combined forms of age-related cataract of left *07/08/2023 07/08/2023 SVT (supraventricular tachycardia) (HCC) [I47.1*03/22/2024 Encounter Status:Closed by BOZENA ENG on 09/03/24 Normal [facility] CT LUNG SCREEN WO IVCONon CT LUNG SCREEN WO IVCON * * *Final Repor t* * * DATE OF EXAM: Jul 23 2024 4:01PM [facility] 0562 - CT LUNG SCREEN WO IVCON / PROCEDURE REASON: Cigarette smoker * * * * Physician Interpretation * * * * EXAMINATION: CHEST CT WITHOUT CONTRAST (LOW-DOSE CT LUNG CANCER SCREENING PROTOCOL) CLINICAL HISTORY: Lung cancer LDCT screening ? absence of signs or symptoms of lung cancer. Nicotine dependence (cigarettes). Subsequent (annual) Technique: Spiral CT acquisition of the chest from the thoracic inlet to the upper abdomen without contrast. 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 Yes, 1-5 nodules Nodule 1: This Solid nodule is located in the Right Upper Lobe on slice number 144 with an average diameter of 3.9 mm (4.6 mm x 3.2 mm). Unchanged since 10/29/2022, possibly a lymph node given location near the fissure. Other lung nodule comments: Unchanged 2 mm posterior left upper lobe pulmonary nodule near the fissure, image 170, since 10/29/2022. Other findings: There is severe diffuse centrilobular emphysema with an upper lung zone predominance. There are persistent reticular opacities in the mid to lower lung zones, probably due to atelectasis and likely interstitial lung disease which may be smoking-related. Diffuse bronchial wall thickening is present. Minimal dependent debris in the trachea is most consistent with mucous/secretions. A lymph node located anterior to the right mainstem bronchus, image 80 is series 7 measuring 1.1 cm in short axis is larger, previously measuring 0.9 cm in short axis on the prior chest CT. A subcarinal lymph node, image 100 of series 7 measuring 1.3 cm in short axis previously measured 1.2 cm in short axis on the prior chest CT mild atherosclerosis is present within the thoracic aorta which is nondilated measuring 2.9 cm in the mid ascending segment. There are severe [place] coronary artery atherosclerotic calcifications in this patient who is status post median sternotomy for CABG. No abnormality within the imaged solid abdominal organs on this noncontrast exam. Mild to moderate atherosclerosis is present in the proximal abdominal aorta, which is nondilated. The sternum is well approximated by median sternotomy wires. Mild multilevel endplate degenerative changes are present throughout the imaged spine. Emphysema: Severe (50-75%), Centrilobular, Diffuse Coronary Artery Calcifications: Circumflex Moderate; Left Anterior Descending Severe; Right Coronary Severe Incidental coronary calcium as automatically processed and calculated using AI: Total Coronary Calcium Score = [100+] Agatston Units Percentile Rank (age and gender matched relative to reference population): [25th-75th] percentile* [* [email or web address]] Localizer images: No additional findings. IMPRESSION: LungRADS category: 2 S LungRADS modifier: Significant other (S), coronary artery calcification, moderate or severe LungRADS 0 reason: n/a Recommendations: Continue annual screening with LDCT in 12 months. Other actionable findings: Severe diffuse centrilobular emphysema. Peripheral reticular opacities in the mid to lower lung zones bilaterally are unchanged, probably due to a combination of atelectasis and interstitial lung disease (which may be smoking-related). Reference: [employer]. Lung CT Screening Reporting and Data System (Lung-RADS). Available at: http://[email or web address].org/Q uality-[email or web address] [email or web address] [email or web address] Lumber Sticker: CONSUELO Transcribe Date/Time: Jul 26 2024 9:53A Dictated by : LISA ARECHIGA MD This examination was interpreted and the report reviewed and electronically signed by: LISA ARECHIGA MD on Jul 26 2024 10:12AM EST [id number] Normal [facility] CNOVon 07-01-2024 CNOV Office Visit (PULMWS) KAM GREENBERG ([id number]) 1950 M Date Time Provider Department 07/01/24 1:15 PM CLARK ROTHMAN PULMWS During your visit today, we recorded the following information about you: Clark Rothman MD 07/01/2024 3:05 PM Signed . Respiratory [place] Note Patient name: Kam Greenberg PCP: Royce Carroll MD CC: Follow-up COPD HPI: Kam Greenberg 73 year old male some day smoker 52 pack year smoker, quitting in 2022 with PMH significant for severe COPD/GOLD stage 3, chronic hypoxemic respiratory failure, CVA, HLD, PAD, CAD s/p stent and CABG, CKD, dysphagia presenting for follow-up. Current therapy with Trelegy Elllipta. Overdue for lung cancer screening. Oxygen saturation initially low when he walked into. He is using 3 L pulse mode. From a respiratory standpoint he has significant dyspnea with exertion. No chronic cough or sputum production. No wheezing or chest pain. He has not been ill with any upper respiratory infection nor required hospitalization. No his Trelegy Ellipta. DME: Integrated 3 L DATA: Pulmonary function test show very severe obstruction with improvement in those postbronchodilator Imaging / Diagnostic Studies: DATE OF EXAM: Oct 29 2022 2:58PM [facility] 0562 - CT LUNG SCREEN WO IVCON / IMPRESSION: LungRADS category: 2 S 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 11/06/2005 Degeneration of thoracolumbar intervertebral disc 11/06/2005 compression fractures Diabetes mellitus ([facility]) Dysmetabolic syndrome X Esophageal reflux Essential tremor 11/23/2015 Generalized osteoarthrosis, unspecified site 10/16/2005 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 CVA (cerebrovascular accident) 03/17/2007 Left arm weakness CO (myocardial infarction) ([facility]) 1999 Other and unspecified hyperlipidemia Peripheral vascular disease ([facility]) 11/06/2005 Polyneuropathy in diabetes(357.2) 11/07/2005 S/P CABG x 3 06/06/2015 S/P coronary artery stent placement 06/06/2015 ST elevation CO (STEMI) ([facility]) 03/2013 Stage 3a chronic kidney disease ([facility]) 04/17/2018 Stenosis of left carotid artery 04/03/2016 Unspecified chronic bronchitis ([facility]) 06/07/2008 ALLERGIES Allergen Reactions Lisinopril Angioedema Morphine Shortness of Breath rapid heart rate Oysters GI Upset Tylenol [Acetaminop* Dystonia flushed, cold sweats, shakey fluticasone-umeclidi n-vilanter (TRELEGY ELLIPTA) 100-62.5-25 mcg inhalation powder Inhale 1 Puff as instructed once daily. doxycycline (VIBRA-TABS) 100 mg tablet Take 1 tablet by mouth two times a day for 10 days. atorvastatin (LIPITOR) 40 mg tablet Take 1 tablet by mouth daily at bedtime. metoprolol tartrate, short acting, (LOPRESSOR) 50 mg tablet Take 1 tablet by mouth two times a day. ipratropium-albutero l (DUONEB) 0.5 mg-3 mg(2.5 mg base)/3 mL nebu Inhale 3 mL as instructed four times daily. amLODIPine (NORVASC) 5 mg tablet Take 1 tablet by mouth once daily. blood sugar diagnostic (BLOOD GLUCOSE TEST) test strip Test blood sugar(s) 2 times daily. Dx: Other DM Code E11.41 Insulin: No fluticasone (FLONASE) 50 mcg/actuation nasal spray Use 1 [place] in each nostril two times a day. clopidogrel (PLAVIX) 75 mg tablet Take 1 tablet by mouth once daily. metFORMIN (GLUCOPHAGE) 500 mg tablet Take 1 tablet by mouth two times a day with meals. sertraline (ZOLOFT) 100 mg tablet Take 1 tablet by mouth once daily. albuterol HFA (VENTOLIN HFA) 90 mcg/actuation inhaler Inhale 2 Puffs as instructed every 4 hours as needed for wheezing/shortness of breath. primidone (MYSOLINE) 50 mg tablet Take 1 tablet by mouth two times a day. Blood-Glucose Meter monitoring kit Glucose Meter of Choice - Kit - Dx: Other DM Code E11.49 saw/vit E/sod miguel/lyc/beta/pyg (PROSTATE HEALTH ORAL) Take 3 tablets by mouth once daily. multivit with minerals/lutein (MULTI-ISABELLE 50 AND OVER ORAL) Take 1 tablet by mouth once daily. nitroglycerin sublingual (NITROSTAT) 0.4 mg SL tablet Dissolve 1 tablet under the tongue every 5 minutes as needed. aspirin, enteric coated (ADULT LOW DOSE ASPIRIN) 81 mg EC tablet Take 1 tablet by mouth once daily. Social History Tobacco Use Smoking status: Some Days Current packs/day: 0.00 Average packs/day: 1 pack/day for 55.1 years (55.1 ttl pk-yrs) Types: Cigarettes Start date: 1967 Last attempt to quit: 12/11/2022 Years since quittin.5 Smokeless tobacco: Never Tobacco comments: Smokers in the home. Vaping Use Va (more content not included)... Normal [facility] Panel Informationon 07-01 Miryam Webber RPFT 07/01/2024 2:32 PM RESPIRATORY THERAPY OXIMETRY WITH AMBULATION Oximetry with Ambulation Test for This Encounter O2 Device O2 Adapter NC O2 Flow SpO2% HR Activity Ft Walked (ft) Time (min) Avg Speed (MPH) NC 3 90 80 Resting NC 3 87 86 Walking, usual pace 100 1 1.14 NC 4 92 71 Resting NC 4 91 84 Walking, usual pace 200 3 0.76 General Information Pulse Oximetry Site Total Time Spent Walking Assistance/O2 Supply Carrier R Index Finger 30 None NAME: PETEY Ortiz PATIENT NAME: Kam Greenberg DATE: July 01, 2024 TIME: 2:32 PM Comment: (Patient ambulated on own portable unit per provider request.) [facility] No Panel InformationOrdered By: Miryam Webber on 07-01-2024 [facility] SPIROMETRY WITH DILATOR IF O BSTRUCTEDon 07-01-2024 FEF25% POST (L/S) 1.08 L/S [facility] FEF25% PRE (L/S) 0.85 L/S [facility] DGB37-01% LLN (L/S) 1.03 L/S [facility] NKZ59-21% POST (L/S) 0.61 L/S [facility] FEJ07-80% PRE (L/S) 0.27 L/S [facility] WIG28-59% PREDICTED (L/S) 2.46 L/S [facility] FEF75% LLN (L/S) 0.24 L/S [facility] FEF75% POST (L/S) 0.32 L/S [facility] FEF75% PRE (L/S0 0.16 L/S [facility] FEF75% PREDICTED (L/S) 0.66 L/S [facility] FEF75% ULN (L/S) 1.75 L/S [facility] FET POST (S) 15.00 S [facility] FET PRE (S) 12.01 S [facility] FEV1 LLN (L) 2.37 L [facility] FEV1 PRE (L) 0.92 L [facility] FEV1 PREDICTED (L) 3.26 L [facility] FEV1 ULN (L) 4.09 L [facility] FEV1/FVC LLN (%) 62 % [facility] FEV1/FVC POST (%) 39 % [facility] FEV1/FVC PRE (%) 41 % [facility] FEV1/FVC PREDICTED (%) 76 % [facility] FEV1_POST (L) 1.17 L [facility] FVC LLN (L) 3.25 L [facility] FVC POST (L) 3.00 L [facility] FVC PRE (L) 2.21 L [facility] FVC PREDICTED (L) 4.38 L [facility] FVC ULN (L) 5.53 L [facility] PEF LLN (L/S) 6.17 L/S [facility] PEF POST (L/S) 3.82 L/S [facility] PEF PRE (L/S) 3.36 L/S [facility] PEF ULN (L/S) 11.14 L/S [facility] [address] [place] [address] Test Date: 2024-07-01 Pat Name: KAM GREENBERG Department: Room: Gender: Male [place]tier: : 1950 Requested By: Order Number: [id number] Reading MD: Clark Rothman MD Interpretive Statements Medications and Allergies were reviewed for possible drug interactions per policy. No contraindications or sensitivities were noted. Meds taken: Trelegy 17/hours before testing and Albuterol 4 hours before testing. Current ATS/ERS acceptability and repeatability standards for spirometry met. Start of test and EOFE criteria met. 4 puffs Albuterol (360 mcg) delivered by MDI via holding chamber. HR pre = 70/min, HR post = 71/min. IMPRESSION: Spirometry indicates very severe obstruction. Positive bronchodilator response. Electronically Signed On 07-01-2024 15:44:50 EST by Clark Rothman MD ID: [id number] Name: KAM GREENBERG Race: White Ht: 72.50 in Wt: 177.00 lbs Age: 73 Gender: Male : 1950 Dx: Stage 3 severe COPD by GOLD classification_ Smoking Hx: Non-smoker Doctor: CLARK ROTHMAN Test Date: 07/01/2024 Site: Tech: Miryam Webber PRE-BRONCH POST-BRONCH Pre LLN Pred ULN %Pred Post %Pred %Chg SPIROMETRY FVC (L) 2.21 3.25 4.38 5.53 50 3.00 68 18 FEV1 (L) 0.92 2.37 3.26 4.09 28 1.17 35 7 FEV1/FVC 0.41 0.62 0.76 0.86 54 0.39 51 -5 PEF L/s (L/sec) 3.36 6.17 8.66 11.14 38 3.82 44 13 FEF50 (L/sec) 0.39 2.27 4.39 6.52 8 0.67 15 73 FIF50 (L/sec) 5.23 5.85 11 FEF50/FIF50 0.07 90-100 0.11 55 FIVC (L) 2.20 2.85 29 ZPZ64-09 (L/sec) 0.27 1.03 2.46 4.51 11 0.61 24 122 Time (sec) 12.01 15.00 24 FET PEF (sec) 0.05 0.06 20 JEANNIE (L) 0.03 0.05 46 Vol Extrap % (%) 2 2 7 Comments: Medications and Allergies were reviewed for possible drug interactions per policy. No contraindications or sensitivities were noted. Meds taken: Trelegy 17/hours before testing and Albuterol 4 hours before testing. Current ATS/ERS acceptability and repeatability standards for spirometry met. Start of test and EOFE criteria met. 4 puffs Albuterol (360 mcg) delivered by MDI via holding chamber. HR pre = 70/min, HR post = 71/min. PULMONARY FUNCTION LAB [facility] Sarmad 06-26-2024 CNPN Telephone (INTMWS) KAM GREENBERG ([id number]) 1950 Date Time Provider Department 06/26/24 ROYCE CARROLL INTWS During your visit today, we recorded the following information about you: Behzad Nunez LPN 06/26/2024 9:32 AM Signed ----- Message from Royce Carroll MD sent at 06/25/2024 6:55 PM EST ----- Test results are okay. Behzad Nunez LPN 06/26/2024 9:35 AM Signed Phoned patient voicemail is full could not leave a message. Milad Kowalski LPN 06/28/2024 7:28 PM Signed Attempted to call, vm is full unable to leave msg. Danelle Coronado LPN, RN 06/30/2024 4:03 PM Signed Spoke with patient. Given message from provider's office. Patient verbalizes understanding. Danelle Eng RN Allergies As of Date: 06/26/2024 Noted Allergy Reaction LISINOPRIL 11/15/2019 18 - Angioedema MORPHINE 06/07/2008 12 - Shortness of Breath Comments: rapid heart rate OYSTERS 04/01/2017 8 - GI Upset TYLENOL (ACETAMINOPHEN) 10/16/2005 13 - Dystonia Comments: flushed, cold sweats, shakey Date Reviewed: 06/23/2024 Reviewed by: Milad Kowalski LPN - Fully Assessed Reason for Visit: Results, Lab [1201] Prescriptions as of 06/30/2024 - doxycycline (VIBRA-TABS) 100 mg tablet Take 1 tablet by mouth two times a day for 10 days. - atorvastatin (LIPITOR) 40 mg tablet Take 1 tablet by mouth daily at bedtime. - fluticasone-umeclidi n-vilanter (TRELEGY ELLIPTA) 100-62.5-25 mcg inhalation powder Inhale 1 Puff as instructed once daily. - metoprolol tartrate, short acting, (LOPRESSOR) 50 mg tablet Take 1 tablet by mouth two times a day. - ipratropium-albutero l (DUONEB) 0.5 mg-3 mg(2.5 mg base)/3 mL nebu Inhale 3 mL as instructed four times daily. - amLODIPine (NORVASC) 5 mg tablet Take 1 tablet by mouth once daily. - blood sugar diagnostic (BLOOD GLUCOSE TEST) test strip Test blood sugar(s) 2 times daily. Dx: Other DM Code E11.41 Insulin: No - fluticasone (FLONASE) 50 mcg/actuation nasal spray Use 1 [place] in each nostril two times a day. - clopidogrel (PLAVIX) 75 mg tablet Take 1 tablet by mouth once daily. - metFORMIN (GLUCOPHAGE) 500 mg tablet Take 1 tablet by mouth two times a day with meals. - sertraline (ZOLOFT) 100 mg tablet Take 1 tablet by mouth once daily. - albuterol HFA (VENTOLIN HFA) 90 mcg/actuation inhaler Inhale 2 Puffs as instructed every 4 hours as needed for wheezing/shortness of breath. - primidone (MYSOLINE) 50 mg tablet Take 1 tablet by mouth two times a day. - Blood-Glucose Meter monitoring kit Glucose Meter of Choice - Kit - Dx: Other DM Code E11.49 - saw/vit E/sod miguel/lyc/beta/pyg (PROSTATE HEALTH ORAL) Take 3 tablets by mouth once daily. - multivit with minerals/lutein (MULTI-ISABELLE 50 AND OVER ORAL) Take 1 tablet by mouth once daily. - nitroglycerin sublingual (NITROSTAT) 0.4 mg SL tablet Dissolve 1 tablet under the tongue every 5 minutes as needed. - aspirin, enteric coated (ADULT LOW DOSE ASPIRIN) 81 mg EC tablet Take 1 tablet by mouth once daily. Problem List As Of Date 06/26/2024 Noted Resolved DYSMETABOLIC SYNDROME X [E88.810] 11/07/2005 Esophageal reflux [K21.9] 09/29/2017 Hyperlipemia [E78.5] Coronary atherosclerosis [I25.10] GENERAL OSTEOARTHROSIS [M15.9] 10/16/2005 Type II or unspecified type diabetes mellitus w*10/21/2005 11/22/2013 Peripheral vascular disease (HCC) [I73.9] 11/06/2005 11/13/2020 Degeneration of thoracolumbar intervertebral di*11/06/2005 Essential hypertension [I10] 11/06/2005 Polyneuropathy in diabetes(357.2) (HCC) [E11.4*11/07/2005 11/22/2013 Late effects of CVA (cerebrovascular accident) *03/17/2007 Other acquired deformity of toe [M20.5X9] 03/23/2009 09/29/2017 Dermatophytosis of nail [B35.1] 03/23/2009 09/29/2017 Type 2 diabetes mellitus with diabetic mononeur*08/23/2010 Adhesive capsulitis of shoulder [M75.00] 10/19/2010 11/20/2011 Tobacco use disorder [F17.200] 05/25/2012 05/23/2023 Rhinitis [J31.0] 11/20/2012 Anxiety disorder [F41.9] 01/31/2009 S/P coronary artery stent placement [Z95.5] 06/06/2015 S/P CABG x 3 [Z95.1] 06/06/2015 Essential tremor [G25.0] 11/23/2015 Stenosis of left carotid artery [I65.22] 04/03/2016 Stage 3a chronic kidney disease (HCC) [N18.31] 04/17/2018 Type 2 diabetes mellitus with diabetic peripher*09/18/2020 At risk for falls [Z91.81] 06/29/2021 Lung nodule < 6cm on CT [VCX6998] 10/17/2021 07/04/2022 Abnormality of gait [R26.9] 11/13/2021 Lumbar spondylosis [M47.816] 11/13/2021 01/15/2023 History of stroke [Z86.73] 11/13/2021 01/15/2023 Chronic obstructive pulmonary disease with (acu*12/11/2022 Chronic respiratory failure with hypoxia (HCC) *01/15/2023 Chronic diastolic CHF (congestive heart failure*01/15/2023 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] 05/06/2023 05/06/2023 Combined forms of age-related cataract of left *07/08/2023 07/08/2023 (more content not included)... Normal [facility] CNOVon 06-23-2024 CNOV Office Visit (INTMWS) KAM GREENBERG ([id number]) 1950 M Date Time Provider Department 06/23/24 3:00 PM ROYCE CARROLL INTMWS During your visit today, we recorded the following information about you: Temperature Pulse Blood pressure Weight 97.5 degrees 92/minute 134/60 81.8 kg Royce Carroll MD 06/23/2024 6:30 PM Signed This note was created using [employer]. Subjective Kam Greenberg is a 73 year old male. He complained of a recurrent soreness in his left nostril. He had squeezed this in the past and obtained purulent material. He went to several weeks ago and was prescribed an antibiotic with temporary relief. He had no current drainage, significant pain, or fever. His blood pressure was elevated today. He had no other concerns. He did not do his follow up labs for anemia. Review of Systems Constitutional: Negative for chills, diaphoresis, fatigue and fever. HENT: Negative for congestion, mouth sores, nosebleeds, sinus pain and sore throat. Respiratory: Negative. Cardiovascular: Negative for chest pain, palpitations and leg swelling. Gastrointestinal: Negative. Neurological: Negative for dizziness and headaches. ACTIVE PROBLEM LIST Hyperlipemia Coronary Atherosclerosis Generalized Osteoarthrosis, Unspecified Site Degeneration of Thoracolumbar Intervertebral Disc Essential Hypertension Late Effects of Cva (Cerebrovascular Accident) Type 2 Diabetes Mellitus With Diabetic Mononeuropathy, Without Long-Term Current Use of Insulin (Hcc) Rhinitis Anxiety Disorder S/P Coronary Artery Stent Placement S/P Cabg X 3 Essential Tremor Stenosis of Left Carotid Artery Stage 3a Chronic Kidney Disease (Hcc) Type 2 Diabetes Mellitus With Diabetic Peripheral Angiopathy Without Gangrene, Without Long-Term Current Use of Insulin (Hcc) At Risk for Falls Abnormality of Gait Chronic Obstructive Pulmonary Disease With (Acute) Exacerbation (Hcc) Chronic Respiratory Failure With Hypoxia (Hcc) Chronic Diastolic Chf (Congestive Heart Failure) (Hcc) Svt (Supraventricular Tachycardia) (Hcc) Social History Tobacco Use Smoking status: Former Current packs/day: 0.00 Average packs/day: 1 pack/day for 55.1 years (55.1 ttl pk-yrs) Types: Cigarettes Start date: 1967 Quit date: 12/11/2022 Years since quittin.5 Smokeless tobacco: Never Tobacco comments: Smokers in the home. Vaping Use Vaping status: Never Used Substance Use Topics Alcohol use: Not Currently Comment: rare NAB Drug use: No Current Outpatient Medications Medication Sig atorvastatin (LIPITOR) 40 mg tablet Take 1 tablet by mouth daily at bedtime. fluticasone-umeclidi n-vilanter (TRELEGY ELLIPTA) 100-62.5-25 mcg inhalation powder Inhale 1 Puff as instructed once daily. metoprolol tartrate, short acting, (LOPRESSOR) 50 mg tablet Take 1 tablet by mouth two times a day. ipratropium-albutero l (DUONEB) 0.5 mg-3 mg(2.5 mg base)/3 mL nebu Inhale 3 mL as instructed four times daily. amLODIPine (NORVASC) 5 mg tablet Take 1 tablet by mouth once daily. blood sugar diagnostic (BLOOD GLUCOSE TEST) test strip Test blood sugar(s) 2 times daily. Dx: Other DM Code E11.41 Insulin: No fluticasone (FLONASE) 50 mcg/actuation nasal spray Use 1 [place] in each nostril two times a day. clopidogrel (PLAVIX) 75 mg tablet Take 1 tablet by mouth once daily. metFORMIN (GLUCOPHAGE) 500 mg tablet Take 1 tablet by mouth two times a day with meals. sertraline (ZOLOFT) 100 mg tablet Take 1 tablet by mouth once daily. albuterol HFA (VENTOLIN HFA) 90 mcg/actuation inhaler Inhale 2 Puffs as instructed every 4 hours as needed for wheezing/shortness of breath. primidone (MYSOLINE) 50 mg tablet Take 1 tablet by mouth two times a day. Blood-Glucose Meter monitoring kit Glucose Meter of Choice - Kit - Dx: Other DM Code E11.49 saw/vit E/sod miguel/lyc/beta/pyg (PROSTATE HEALTH ORAL) Take 3 tablets by mouth once daily. multivit with minerals/lutein (MULTI-ISABELLE 50 AND OVER ORAL) Take 1 tablet by mouth once daily. nitroglycerin sublingual (NITROSTAT) 0.4 mg SL tablet Dissolve 1 tablet under the tongue every 5 minutes as needed. aspirin, enteric coated (ADULT LOW DOSE ASPIRIN) 81 mg EC tablet Take 1 tablet by mouth once daily. doxycycline (VIBRA-TABS) 100 mg tablet Take 1 tablet by mouth two times a day for 10 days. No current facility-administere d medications for this visit. Objective BP 134/60 (BP Site: Left Arm, BP Position: Sitting, BP Cuff Size: Large Adult) Pulse 92 Temp 36.4 ?C (97.5 ?F) (Temporal) Wt 81.8 kg (180 lb 5.4 oz) SpO2 93% BMI 23.63 kg/m? Physical Exam Constitutional: General: He is not in acute distress. Appearance: He is not ill-appearing. Comments: Portable O2. HENT: Nose: No nasal tenderness, congestion or rhinorrhea. Right Nostril: No epistaxis. Left Nostril: No epistaxis. (more content not included)... Normal [facility] Ferritin [facility] 2023 Ferritin [Mass/Vol] 71.4 ng/mL Normal 30.3-565.7 [facility] Comment on above: Order Comment: Speci men Type: BLOOD SPECIMENOrdering Facility: [facility] Address: [address] [place] [address] Performed By: #### 5 0190-8, 2276-4, 2284-8, 2132-9 ####[facility] LABCLIA [id number] [place] [address] [place] Folate SerPl-mCncon 06-23-20 Folate [Mass/Vol] 14.3 ng/mL Normal >4.7 [facility] Comment on above: Order Comment: Speci men Type: BLOOD SPECIMENOrdering Facility: [facility] Address: [address] [place] [address] Performed By: #### 5 0190-8, 6-4, 2283-8, 2132-03 ####[facility] LABCLIA [id number] [place] [address] [place] Iron and Iron binding capaci ty panelon 06-23-2024 Iron [Mass/Vol] 81 ug/dL Normal 41-186 [facility] Comment on above: Order Comment: Speci men Type: BLOOD SPECIMENOrdering Facility: [facility] Address: [address] [place] [address] Performed By: #### 5 0190-8, 6-4, 8, 2132-03 ####[facility] LABIA [id number] [place] [address] [place] Iron binding capacity [Mass/Vol] 273 ug/dL Normal 232-386 [facility] Comment on above: Order Comment: Speci men Type: BLOOD SPECIMENOrdering Facility: [facility] Address: [address] [place] [address] Performed By: #### 5 0190-8, 6-4, 8, 2132-03 ####[facility] LABIA [id number] [place] [address] [place] Iron/TIBC [Molar ratio] 29.7 % Normal 15.0-57.0 [facility] Comment on above: Order Comment: Speci men Type: BLOOD SPECIMENOrdering Facility: [facility] Address: [address] [place] [address] Performed By: #### 5 0190-8, 6-4, 2283-8, 2132-03 ####[facility] LABIA [id number] [place] [address] [place] Vit [facility] Cobalamin (Vitamin B12) [Mass/Vol] 1396 pg/mL High 232-1245 [facility] Comment on above: Order Comment: Speci men Type: BLOOD SPECIMENOrdering Facility: [facility] Address: [address] [place] [address] Performed By: #### 5 0190-8, 2276-4, 2284-8, 2132-9 ####[facility] LABCLIA [id number] [address] [id number] [id number] [facility] CNOVon 06-03-2024 CNOV Office Visit (PODIWS) KAM GREENBERG ([id number]) 1950 M Date Time Provider Department 06/03/24 1:00 PM OLU MILLER PODIWS During your visit today, we recorded the following information about you: Xi Finn LPN 06/05/2024 6:27 AM Signed AMB ROOMING INTAKE FLOWSHEET DATA Pain Pain Level: 5 Pain Location: Other: See Comment (bilateral feet) Description: Sore Duration Units: Weeks Frequency: Intermittent Intervention/Comfort measure: Relaxation, Reposition Patient presents with: Left Foot - Established Patient, Diabetic Foot Care Right Foot - Established Patient, Diabetic Foot Care JERI Colbert Matthew 06/05/2024 6:27 AM Signed Last saw pcp: 03/22/24 Subjective: Patient presents to clinic c/o painful toenails. They state that the nails are especially painful with shoe gear and pressure. Patient states that nails 1-5 b/l are painful. Patient admits to being diabetic. No other pedal complaints at this time. Patient states no change in medications or medical history since last visit. Objective: Patient presents to clinic ambulating in sneakers Vasc: DP and PT pulses are faintly palpable bilateral. CFT is less than 5 seconds bilateral. Skin temperature is warm to cool proximal to distal bilateral. There is moderate edema or varicosities noted. Neuro: Protective sensation is decreased to the foot and toes when tested with the 5.07 SWM bilateral. Vibratory sensation is absent at the hallux IPJ bilateral. The hallux is downgoing bilateral. Derm: Nails 1-5 b/l are painful, discolored-yellow, thick, crumbly, dystrophic and with subungal debris. Skin is of normal turgor, texture and hair growth is decreased bilateral. There are no hyperkeratosis, ulcerations, scars, verruca or other lesions noted. Ortho: Muscle strength is 5/5 for all pedal groups tested. Ankle joint DF is decreased with the knee extended with no pain or crepitus noted. 1st MPJ ROM is decreased bilateral. Assessment: (B35.1) Onychomycosis (primary encounter diagnosis) (M79.675) Pain in toe of left foot (M79.674) Pain in toe of right foot (E11.42) Diabetic polyneuropathy associated with type 2 diabetes mellitus (HCC) Plan: Patient was seen and evaluated. Nails 1-5 bilateral were debrided in length and thickness. Patient was instructed on the continued importance of diabetic foot care along with proper diet and keeping their blood sugar under control to prevent complications. Stressed the importance of avoiding barefoot walking, wearing good shoes and inspection of feet daily. Patient is to RTC in 3-4 months. ALLIE Grier Matthew 06/03/2024 1:09 PM Signed Diabetes Foot Care Instructions When you have diabetes, proper foot care is very important. Poor foot care may lead to amputation of a foot or leg. As a person with diabetes, you are more vulnerable to foot problems, because diabetes can damage your nerves and reduce blood flow to your feet. Here are some diabetes foot care tips to follow: Wash and Dry Your Feet Daily Use mild soaps Use warm water Pat your skin dry; do not rub. Thoroughly dry your feet. After washing, use lotion on your feet to prevent cracking. Do not put lotion between your toes. Examine Your Feet Each Day Check the tops and bottoms of your feet. Have someone else look at your feet if you cannot see them. Check for dry, cracked skin. Look for blisters, cuts, scratches, or other sores. Check for redness, increased warmth, or tenderness when touching any area of your feet. Check for ingrown toenails, corns, and calluses. If you get a blister or sore from your shoes, do not pop it. Apply a bandage and wear a different pair of shoes. Take Care of Your Toenails Cut toenails after bathing, when they are soft. Cut toenails straight across and smooth with a nail file. Avoid cutting into the corners of toes. Do not cut cuticles. If you have neuropathy (or decreased sensation in your feet) a non destructive testing inspector should always cut your toenails. Be Careful When Exercising Walk and exercise in comfortable shoes. Do not exercise when you have open sores on your feet. Protect Your Feet With Shoes and Socks Never go barefoot. Always protect your feet by wearing shoes or hard-soled slippers or footwear. Avoid shoes with high heels and pointed toes. Avoid shoes that expose your toes or heels (such as open-toed shoes or sandals). These types of shoes increase your risk for injury and potential infections. Try on new footwear with the type of socks you usually wear. Do not wear new shoes for more than an hour at a time. Change your socks daily. Look and feel inside your shoes before putting them on to make sure there are no foreign objects or rough areas. Avoid tight socks. Wear natural-fiber socks (cotton, wool, or a cotton-wool blend). Wear sp (more content not included)... [facility]GR ([id number]) 1950 M Date Time Provider Department 04/08/24 CLARK ROTHMAN During your visit today, we recorded the following information about you: Linnette Beavers 04/08/2024 4:39 PM Signed Pt needs a new prescriptions sent to [facility] for his Concentrator and his Portable O2 as well. He changed to [employer] so they need new prescriptions. Pt gave fax number of [phone] Sharon Lubin LPN 04/09/2024 3:58 PM Signed Faxed. Sharon Lubin LPN Allergies As of Date: 04/08/2024 Noted Allergy Reaction LISINOPRIL 11/15/2019 18 - Angioedema MORPHINE 06/07/2008 12 - Shortness of Breath Comments: rapid heart rate OYSTERS 04/01/2017 8 - GI Upset TYLENOL (ACETAMINOPHEN) 10/16/2005 13 - Dystonia Comments: flushed, cold sweats, shakey Date Reviewed: 03/22/2024 Reviewed by: Gabby Cannon APRN.WINERY WORKER - Fully Assessed Reason for Visit: Patient Update [1234] Primary Visit Diagnosis:Stage 3 severe COPD by GOLD classification ([facility]) [J44.9] Order(s):OXYGEN FOR HOME USE [[id number]] Order #: [id number] Prescriptions as of 04/09/2024 - ipratropium-albutero l (DUONEB) 0.5 mg-3 mg(2.5 mg base)/3 mL nebu Inhale 3 mL as instructed four times daily. - amLODIPine (NORVASC) 5 mg tablet Take 1 tablet by mouth once daily. - blood sugar diagnostic (BLOOD GLUCOSE TEST) test strip Test blood sugar(s) 2 times daily. Dx: Other DM Code E11.41 Insulin: No - fluticasone (FLONASE) 50 mcg/actuation nasal spray Use 1 [place] in each nostril two times a day. - clopidogrel (PLAVIX) 75 mg tablet Take 1 tablet by mouth once daily. - metFORMIN (GLUCOPHAGE) 500 mg tablet Take 1 tablet by mouth two times a day with meals. - sertraline (ZOLOFT) 100 mg tablet Take 1 tablet by mouth once daily. - albuterol HFA (VENTOLIN HFA) 90 mcg/actuation inhaler Inhale 2 Puffs as instructed every 4 hours as needed for wheezing/shortness of breath. - atorvastatin (LIPITOR) 40 mg tablet Take 1 tablet by mouth daily at bedtime. - primidone (MYSOLINE) 50 mg tablet Take 1 tablet by mouth two times a day. - metoprolol tartrate, short acting, (LOPRESSOR) 50 mg tablet Take 1 tablet by mouth two times a day. - TRELEGY ELLIPTA 100-62.5-25 mcg inhalation powder INHALE 1 PUFF INSTRUCTED ONCE DAILY. - Blood-Glucose Meter monitoring kit Glucose Meter of Choice - Kit - Dx: Other DM Code E11.49 - saw/vit E/sod miguel/lyc/beta/pyg (PROSTATE HEALTH ORAL) Take 3 tablets by mouth once daily. - multivit with minerals/lutein (MULTI-ISABELLE 50 AND OVER ORAL) Take 1 tablet by mouth once daily. - nitroglycerin sublingual (NITROSTAT) 0.4 mg SL tablet Dissolve 1 tablet under the tongue every 5 minutes as needed. - aspirin, enteric coated (ADULT LOW DOSE ASPIRIN) 81 mg EC tablet Take 1 tablet by mouth once daily. Facility-Administere d Medications as of 04/09/2024 - propofol injection (DIPRIVAN) - midazolam (PF) injection (VERSED) Problem List As Of Date 04/08/2024 Noted Resolved DYSMETABOLIC SYNDROME X [E88.810] 11/07/2005 Esophageal reflux [K21.9] 09/29/2017 Hyperlipemia [E78.5] Coronary atherosclerosis [I25.10] GENERAL OSTEOARTHROSIS [M15.9] 10/16/2005 Type II or unspecified type diabetes mellitus w*10/21/2005 11/22/2013 Peripheral vascular disease (HCC) [I73.9] 11/06/2005 11/13/2020 Degeneration of thoracolumbar intervertebral di*11/06/2005 Essential hypertension [I10] 11/06/2005 Polyneuropathy in diabetes(357.2) (HCC) [E11.4*11/07/2005 11/22/2013 Late effects of CVA (cerebrovascular accident) *03/17/2007 Other acquired deformity of toe [M20.5X9] 03/23/2009 09/29/2017 Dermatophytosis of nail [B35.1] 03/23/2009 09/29/2017 Type 2 diabetes mellitus with diabetic mononeur*08/23/2010 Adhesive capsulitis of shoulder [M75.00] 10/19/2010 11/20/2011 Tobacco use disorder [F17.200] 05/25/2012 05/23/2023 Rhinitis [J31.0] 11/20/2012 Anxiety disorder [F41.9] 01/31/2009 S/P coronary artery stent placement [Z95.5] 06/06/2015 S/P CABG x 3 [Z95.1] 06/06/2015 Essential tremor [G25.0] 11/23/2015 Stenosis of left carotid artery [I65.22] 04/03/2016 Stage 3a chronic kidney disease (HCC) [N18.31] 04/17/2018 Type 2 diabetes mellitus with diabetic peripher*09/18/2020 At risk for falls [Z91.81] 06/29/2021 Lung nodule < 6cm on CT [CYG6602] 10/17/2021 07/04/2022 Abnormality of gait [R26.9] 11/13/2021 Lumbar spondylosis [M47.816] 11/13/2021 01/15/2023 History of stroke [Z86.73] 11/13/2021 01/15/2023 Chronic obstructive pulmonary disease with (acu*12/11/2022 Chronic respiratory failure with hypoxia (HCC) *01/15/2023 Chronic diastolic CHF (congestive heart failure*01/15/2023 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] 05/06/2023 05/06/2023 Combined forms of age-related cataract of left *07/08/2023 07/08/2023 SVT (supraventricular tachycardia) (HCC) [I47.1*03/22/2024 (more content not included)... Normal [facility] Basic metabolic 2000 panelon 03-22-2024 Anion gap [Moles/Vol] 11 mmol/L Normal 8-15 [facility] Comment on above: Order Comment: Speci men Type: BLOOD SPECIMENOrdering Facility: [facility] Address: [address] [place] [address] Performed By: #### 2 4321-2, 45617-7, 71103-1 ####[facility] LABCLIA [id number] [place] [id number], [place] [address] [place] Calcium [Mass/Vol] 8.7 mg/dL Normal 8.5-10.[address] [facility] Comment on above: Order Comment: Speci men Type: BLOOD SPECIMENOrdering Facility: [facility] Address: [address] [place] [address] Performed By: #### 2 4321-2, 19899-6, ####[facility] LABCLIA [id number] [address] [employer] [place] [id number] [place] Chloride [Moles/Vol] 101 mmol/L Normal 98-107 [facility] Comment on above: Order Comment: Speci men Type: BLOOD SPECIMENOrdering Facility: [facility] Address: [address] [place] [address] Performed By: #### 2 4321-2, 80591-3, ####[facility] LABCLIA [id number] [place] [address] [place] CO2 [Moles/Vol] 27 mmol/L Normal 22-30 [facility] Comment on above: Order Comment: Speci men Type: BLOOD SPECIMENOrdering Facility: [facility] Address: [address] [place] [address] Performed By: #### 2 4321-2, 63429-8, ####[facility] LABCLIA [id number] [place] [id number] [place] Creatinine [Mass/Vol] 1.27 mg/dL High 0.73-1.22 [facility] Comment on above: Order Comment: Speci men Type: BLOOD SPECIMENOrdering Facility: [facility] Address: [address] [place] [address] Performed By: #### 2 4321-2, 62627-7, ####[facility] LABCLIA [id number] [address] [address] [place] Creatinine and Glomerular filtration rate.predicted panel (S/P/Bld) 60 mL/min/1.73m??? Normal >=60 [facility] Comment on above: Order Comment: Hemal mitchell Type: BLOOD SPECIMENOrdering Facility: [facility] Address: [address] [place] [address] Result Comment: Kadie mated Glomerular Filtration Rate (eGFR) is calculated using the 2020 CKD-EPI creatinine equation. This equation utilizes serum creatinine, sex, and age as parameters. The creatinine assay has traceable calibration to isotope dilution-mass spectrometry. Refer to KDIGO guidelines for clinical interpretation. In patients with unstable renal function, e.g. those with acute kidney injury, the eGFR may not accurately reflect actual GFR. Performed By: #### 2 4321-2, 68269-4, ####[facility] LABIA [id number] [place] [address] [place] Glucose [Mass/Vol] 143 mg/dL High 74-[address] [facility] Comment on above: Order Comment: Hemal mitchell Type: BLOOD SPECIMENOrdering Facility: [facility] Address: [address] [place] [address] Result Comment: The [place] Diabetes Association (ADA) provides guidance for cutoff values for fasting glucose and random glucose. The ADA defines fasting as no caloric intake for at least 8 hours. Fasting plasma glucose results between 100 to 125 mg/dL indicate increased risk for diabetes (prediabetes). Fasting plasma glucose results greater than or equal to 126 mg/dL meet the criteria for diagnosis of diabetes. In the absence of unequivocal hyperglycemia, results should be confirmed by repeat testing. In a patient with classic symptoms of hyperglycemia or hyperglycemic crisis, random plasma glucose results greater than or equal to 200 mg/dL meet the criteria for diagnosis of diabetes. Reference: Standards of Medical Care in Diabetes 2016, [place] [employer]. Diabetes Care. 2016.39(Suppl 1). Performed By: #### 2 4321-2, 36745-4, 15138-9 ####[facility] LABIA [id number] [place] [id number] [place] Potassium [Moles/Vol] 4.8 mmol/L Normal 3.7-5.1 [facility] Comment on above: Order Comment: Speci men Type: BLOOD SPECIMENOrdering Facility: [facility] Address: [address] [place] [address] Performed By: #### 2 4321-2, 26999-7, ####[facility] LABCLIA [id number] [address] [address] [place] Sodium [Moles/Vol] 139 mmol/L Normal 136-[address] [facility] Comment on above: Order Comment: Speci men Type: BLOOD SPECIMENOrdering Facility: [facility] Address: [address] [place] [address] Performed By: #### 2 4321-2, 24795-1, ####[facility] LABCLIA [id number] [place] [id number] [place] Urea nitrogen [Mass/Vol] 20 mg/dL Normal 9-24 [facility] Comment on above: Order Comment: Speci men Type: BLOOD SPECIMENOrdering Facility: [facility] Address: [address] [place] [address] Performed By: #### 2 4321-2, 58336-1, ####[facility] LABIA [id number] [place] [address] [place] CBC panel Auto (Bld)on 03-22 Erythrocyte distribution width (RBC) [Ratio] 13.0 % 11.5 - 15.0 % [facility] Hematocrit (Bld) [Volume fraction] 35.0 % Low 39.0 - 51.0 % [facility] Hemoglobin (Bld) [Mass/Vol] 11.0 g/dL Low 13.0 - 17.0 g/dL [facility] Interpretation and review of laboratory results Abnormal [facility] MCH (RBC) [Entitic mass] 31.6 pg 26.0 - 34.0 pg [facility] MCHC (RBC) [Mass/Vol] 31.4 g/dL 30.5 - 36.0 g/dL [facility] MCV (RBC) [Entitic vol] 100.6 fL High 80.0 - 100.0 fL [facility] Nucleated RBC (Bld) [#/Vol] NINF [facility] Platelet mean volume (Bld) [Entitic vol] 10.0 fL 9.0 - 12.7 fL [facility] Platelets (Bld) [#/Vol] 255 10*3/uL [facility] RBC (Bld) [#/Vol] 3.48 10*6/uL Low 4.20 - 6.0 0 m/uL [facility] WBC (Bld) [#/Vol] 8.35 10*3/uL [facility] Erythrocyte distribution width (RBC) [Ratio] 13.0 % Normal 11.5-15.0 [facility] Comment on above: Order Comment: Speci men Type: BLOOD SPECIMENOrdering Facility: [facility] Address: [address] [place] [address] Performed By: #### 5 8410-2 ####[facility] [id number] [place] [address] [place] Hematocrit (Bld) [Volume fraction] 35.0 % Low 39.0-51.0 [facility] Comment on above: Order Comment: Speci men Type: BLOOD SPECIMENOrdering Facility: [facility] Address: [address] [place] [address] Performed By: #### 5 8410-2 ####[facility] LABIA [id number] [place] [address] [place] Hemoglobin (Bld) [Mass/Vol] 11.0 g/dL Low 13.0-17.0 [facility] Comment on above: Order Comment: Speci men Type: BLOOD SPECIMENOrdering Facility: [facility] Address: [address] [place] [address] Performed By: #### 5 8410-2 ####[facility] LABIA [id number] [place] [address] [place] MCH (RBC) [Entitic mass] 31.6 pg Normal 26.0-34.0 [facility] Comment on above: Order Comment: Speci men Type: BLOOD SPECIMENOrdering Facility: [facility] Address: [address] [place] [address] Performed By: #### 5 8410-2 ####[facility] [id number] [place] [address] [place] MCHC (RBC) [Mass/Vol] 31.4 g/dL Normal 30.5-36.0 [facility] Comment on above: Order Comment: Speci men Type: BLOOD SPECIMENOrdering Facility: [facility] Address: [address] [place] [address] Performed By: #### 5 8410-2 ####[facility] [id number] [place] [address] [place] MCV (RBC) [Entitic vol] 100.6 fL High 80.0-100.0 [facility] Comment on above: Order Comment: Speci men Type: BLOOD SPECIMENOrdering Facility: [facility] Address: [address] [place] [address] Performed By: #### 5 8410-2 ####[facility] [id number] [place] [address] [place] Nucleated RBC (Bld) [#/Vol] 10*3/uL Normal <0.01 [facility] Comment on above: Order Comment: Speci men Type: BLOOD SPECIMENOrdering Facility: [facility] Address: [address] [place] [address] Performed By: #### 5 8410-2 ####[facility] [id number] [place] [address] [place] Platelet mean volume (Bld) [Entitic vol] 10.0 fL Normal 9.0-12.7 [facility] Comment on above: Order Comment: Speci men Type: BLOOD SPECIMENOrdering Facility: [facility] Address: [address] [place] [address] Performed By: #### 5 8410-2 ####[facility] LABIA [id number] [place] [address] [place] Platelets (Bld) [#/Vol] 255 10*3/uL Normal 150-400 [facility] Comment on above: Order Comment: Speci men Type: BLOOD SPECIMENOrdering Facility: [facility] Address: [address] [place] [address] Performed By: #### 5 8410-2 ####[facility] LABIA [id number] [place] [address] [place] RBC (Bld) [#/Vol] 3.48 10*6/uL Low 4.20-6.00 [facility] Comment on above: Order Comment: Speci men Type: BLOOD SPECIMENOrdering Facility: [facility] Address: [address] [place] [address] Performed By: #### 5 8410-2 ####[facility] [id number] [place] [address] [place] WBC (Bld) [#/Vol] 8.35 10*3/uL Normal 3.70-11.00 [facility] Comment on above: Order Comment: Speci men Type: BLOOD SPECIMENOrdering Facility: [facility] Address: [address] [place] [address] Performed By: #### 5 8410-2 ####[facility] [id number] [place] [address] [place] CNOVon 03-22-2024 CNOV Office Visit (INTMWS) KAM GREENBERG ([id number]) 1950 M Date Time Provider Department 03/22/24 1:40 PM GABBY CANNON INTMWS During your visit today, we recorded the following information about you: Temperature Pulse Respiration Blood pressure 97.6 degrees 94/minute 24/minute 122/74 Weight 82.5 kg Gabby Cannon, ORTHOTIC TECHNICIAN.WINERY WORKER 03/22/2024 2:44 PM Signed CC: Patient presents with: F/U 3 Month HPI Kam Greenberg is a 73 year old male who presents today for above. He denies any concerns today. Appears SOB but does not feel it is any worse than usual. Admits to having a cold a few weeks ago, symptoms mostly resolved. He did have severe chills about three days ago but none since then. Does not have a thermometer to check his temp. He has COPD and wears continuous oxygen. Using inhalers as prescribed. Denies worsening of chronic cough or wheezing. He also has a history of CHF. Denies chest pain, palpitations, edema, PND, orthopnea, weight gain. Taking all medications, denies side effects. Check his BP at home but can't recall average readings. Does not check his blood sugars. Review of Systems Constitutional: Negative for diaphoresis, fatigue, fever and unexpected weight change. HENT: Positive for rhinorrhea (chronic). Negative for congestion, ear pain, sinus pressure, sinus pain and sore throat. Neurological: Negative for dizziness, syncope, weakness, light-headedness and headaches. Psychiatric/Behavior al: Negative for confusion. 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 11/06/2005: Degeneration of thoracolumbar intervertebral disc Comment: compression fractures No date: Diabetes mellitus (HCC) No date: Dysmetabolic syndrome X No date: Esophageal reflux 11/23/2015: Essential tremor 10/16/2005: Generalized osteoarthrosis, unspecified site 1953: Late effects of acute poliomyelitis 03/17/2007: Late effects of CVA (cerebrovascular accident) Comment: Left arm weakness 2000: CO (myocardial infarction) ([facility]) No date: Other and unspecified hyperlipidemia 11/06/2005: Peripheral vascular disease ([facility]) 11/07/2005: Polyneuropathy in diabetes(357.2) 06/06/2015: S/P CABG x 3 06/06/2015: S/P coronary artery stent placement 03/2013: ST elevation CO (STEMI) ([facility]) 04/17/2018: Stage 3a chronic kidney disease ([facility]) 04/03/2016: Stenosis of left carotid artery 06/07/2008: Unspecified chronic bronchitis ([facility]) PAST SURGICAL HISTORY 2000: CABG, ARTERIAL, THREE Comment: CABG x3 1963: PAST SURGICAL HISTORY OF Comment: Ankle and Feet surgeries ros Mishra 1957: RPR 1ST INGUN HRNA AGE 6 YRS/> REDUCIBLE Comment: Hernia repair, inguinal, right Sept.2012: TRANSCATH STENT INIT VESSEL,PERCUT Comment: MARKUS to SVG to RCA AND MARKUS to SVG to OM ALLERGIES Lisinopril, Morphine, Oysters, and Tylenol [Acetaminophen] MEDICATIONS ipratropium-albutero l (DUONEB) 0.5 mg-3 mg(2.5 mg base)/3 mL nebuInhale 3 mL as instructed four times daily.Disp: 90 mLRfl: 5 amLODIPine (NORVASC) 5 mg tabletTake 1 tablet by mouth once daily.Disp: 90 tabletRfl: 1 blood sugar diagnostic (BLOOD GLUCOSE TEST) test stripTest blood sugar(s) 2 times daily. Dx: Other DM Code E11.41 Insulin: NoDisp: 100 StripRfl: 5 fluticasone (FLONASE) 50 mcg/actuation nasal sprayUse 1 [place] in each nostril two times a day.Disp: 1 EachRfl: 3 clopidogrel (PLAVIX) 75 mg tabletTake 1 tablet by mouth once daily.Disp: 90 tabletRfl: 1 metFORMIN (GLUCOPHAGE) 500 mg tabletTake 1 tablet by mouth two times a day with meals.Disp: 180 tabletRfl: 1 sertraline (ZOLOFT) 100 mg tabletTake 1 tablet by mouth once daily.Disp: 90 tabletRfl: 1 predniSONE (DELTASONE) 10 mg tabletTAKE BY MOUTH 4 TABLETS DAILY FOR 2 DAYS, THEN 3 TABLETS DAILY FOR 2 DAYS, THEN 2 TABLETS DAILY FOR 2 DAYS, THEN 1 TABLET DAILY FOR 2 DAYS.Disp: 20 tabletRfl: 0 albuterol HFA (VENTOLIN HFA) 90 mcg/actuation inhalerInhale 2 Puffs as instructed every 4 hours as needed for wheezing/shortness of breath.Disp: 18 gRfl: 5 atorvastatin (LIPITOR) 40 mg tabletTake 1 tablet by mouth daily at bedtime.Disp: 90 tabletRfl: 1 primidone (MYSOLINE) 50 mg tabletTake 1 tablet by mouth two times a day.Disp: 180 tabletRfl: 1 metoprolol tartrate, short acting, (LOPRESSOR) 50 mg tabletTake 1 tablet by mouth two times a day.Disp: 180 tabletRfl: 1 TRELEGY ELLIPTA 100-62.5-25 mcg inhalation powderINHALE 1 PUFF INSTRUCTED ONCE DAILY.Disp: 60 EachRfl: 11 Blood-Glucose Meter monitoring kitGlucose Meter of Choice - Kit - Dx: Other DM Code E11.49Di (more content not included)... Normal [facility] HbA1c (Bld)on 03-22-2024 Average glucose Estimated from glycated hemoglobin (Bld) [Mass/Vol] 140 mg/dL Normal [facility] Comment on above: Order Comment: Hemal mitchell Type: BLOOD SPECIMENOrdering Facility: [facility] Address: [address] [place] [address] Result Comment: eAG: (Estimated average glucose) is a calculated value from HgbA1c and is exhibit display representative of the average blood glucose level in the last 2-3 month period. Performed By: #### 5 5454-3 ####[facility] LABCLIA [id number] [facility] [id number] [place] [address] [place] HbA1c (Bld) [Mass fraction] 6.5 % High 4.3-5.6 [facility] Comment on above: Order Comment: Hemal mitchell Type: BLOOD SPECIMENOrdering Facility: [facility] Address: [address] [place] [address] Result Comment: [place] Diabetes Association guidelines indicate that patients with HgbA1c in the range 5.7-6.4% are at increased risk for development of diabetes, and intervention by lifestyle modification may be beneficial. HgbA1c greater or equal to 6.5% is considered diagnostic of diabetes. Performed By: #### 5 5454-3 ####[facility] LABCLIA [id number] [place] [address] [place] Magnesium [facility] 03-22 Magnesium [Mass/Vol] 1.9 mg/dL Normal 1.7-2.3 [facility] Comment on above: Order Comment: Speci men Type: BLOOD SPECIMENOrdering Facility: [facility] Address: [address] [place] [address] Performed By: #### 2 4321-2, 25682-4, 93528-2 ####[facility] LABIA [id number] [address] [place] NT-proBNP [facility] 03-22 Natriuretic peptide.B prohormone N-Terminal [Mass/Vol] 1167 pg/mL High <125 [facility] Comment on above: Order Comment: Speci men Type: BLOOD SPECIMENOrdering Facility: [facility] Address: [address] [place] [address] Performed By: #### 2 4321-2, 83136-4, ####[facility] LABIA [id number] [place] [address] [place] XR CHEST 2V FRONTAL/LATon XR CHEST 2V FRONTAL/LAT * * *Final Repor t* * * DATE OF EXAM: Mar 22 2024 3:14PM WOX [id number] - XR CHEST 2V FRONTAL/LAT / PROCEDURE REASON: multiple diagnoses * * * * Physician Interpretation * * * * EXAMINATION: CHEST RADIOGRAPH (2 VIEW FRONTAL and LATERAL) CLINICAL HISTORY: Shortness of breath Acute cough MQ: XC2_6 EXAM DATE/TIME: 03/22/2024 3:14 PM COMPARISON: Chest x-ray 09/19/2023 RESULT: Lines, tubes, and devices: None. Lungs and pleura: Hyperinflation of the lungs. Scarring in bilateral lung bases. No consolidation. No pleural effusion or pneumothorax. Cardiomediastinal silhouette: Stable cardiomediastinal silhouette. Bones and soft tissues: Degenerative disease of the thoracic spine. Median sternotomy wires. IMPRESSION: No acute radiographic abnormality. Lumber Sticker: [employer] Transcribe Date/Time: Mar 22 2024 3:14P Dictated by : TATIANA EAGLE MD This examination was interpreted and the report reviewed and electronically signed by: TATIANA EAGLE MD on Mar 22 2024 3:16PM EST [id number] Normal [facility] XR Chest PA and Lateralon IMPRESSION: No acute radiographic abnormality. Lumber Sticker: [facility] Transcribe Date/Time: Mar 22 2024 3:14P Dictated by : TATIANA EAGLE MD This examination was interpreted and the report reviewed and electronically signed by: TATIANA EAGLE MD on Mar 22 2024 3:16PM EST DIVISION OF RADIOLOGY * * *Final Report* * * DATE OF EXAM: Mar 22 2024 3:14PM WOX [id number] - XR CHEST 2V FRONTAL/LAT / PROCEDURE REASON: multiple diagnoses * * * * Physician Interpretation * * * * EXAMINATION: CHEST RADIOGRAPH (2 VIEW FRONTAL & LATERAL) CLINICAL HISTORY: Shortness of breath Acute cough MQ: XC2_6 EXAM DATE/TIME: 03/22/2024 3:14 PM COMPARISON: Chest x-ray 09/19/2023 RESULT: Lines, tubes, and devices: None. Lungs and pleura: Hyperinflation of the lungs. Scarring in bilateral lung bases. No consolidation. No pleural effusion or pneumothorax. Cardiomediastinal silhouette: Stable cardiomediastinal silhouette. Bones and soft tissues: Degenerative disease of the thoracic spine. Median sternotomy wires. DIVISION OF RADIOLOGY Provider, [facility] - 03/22/2024 * * *Final Report* * * DATE OF EXAM: Mar 22 2024 3:14PM WOX [id number] - XR CHEST 2V FRONTAL/LAT / PROCEDURE REASON: multiple diagnoses * * * * Physician Interpretation * * * * EXAMINATION: CHEST RADIOGRAPH (2 VIEW FRONTAL & LATERAL) CLINICAL HISTORY: Shortness of breath Acute cough MQ: XC2_6 EXAM DATE/TIME: 03/22/2024 3:14 PM COMPARISON: Chest x-ray 09/19/2023 RESULT: Lines, tubes, and devices: None. Lungs and pleura: Hyperinflation of the lungs. Scarring in bilateral lung bases. No consolidation. No pleural effusion or pneumothorax. Cardiomediastinal silhouette: Stable cardiomediastinal silhouette. Bones and soft tissues: Degenerative disease of the thoracic spine. Median sternotomy wires. IMPRESSION IMPRESSION: No acute radiographic abnormality. Lumber Sticker: PSCB Transcribe Date/Time: Mar 22 2024 3:14P Dictated by : TATIANA EAGLE MD This examination was interpreted and the report reviewed and electronically signed by: TATIANA EAGLE MD on Mar 22 2024 3:16PM EST [facility] Radiology Study observation (narrative) Lynette gallo [facility] XR Chest PA and LateralOrder ed By: [facility]cf Provider on 03-22-2024 [facility] CNOVon 02-27-2024 CNOV Office Visit (PODIWS) KAM GREENBERG ([id number]) 1950 M Date Time Provider Department 02/27/24 10:30 AM OLU MILLER PODIWS During your visit today, we recorded the following information about you: Xi Finn LPN 02/27/2024 1:21 PM Signed AMB ROOMING INTAKE FLOWSHEET DATA Patient presents with: Left Foot - Established Patient, Diabetic Foot Care Right Foot - Established Patient, Diabetic Foot Care JERI Colbert Matthew 02/27/2024 1:21 PM Signed Last saw pcp: 01/19/24 Subjective: Patient presents to clinic c/o painful toenails. They state that the nails are especially painful with shoe gear and pressure. Patient states that nails 1-5 b/l are painful. Patient admits to being diabetic. No other pedal complaints at this time. Patient states no change in medications or medical history since last visit. Objective: Patient presents to clinic ambulating in [facility] Vasc: DP and PT pulses are nonpalpable bilateral. CFT is less than 5 seconds bilateral. Skin temperature is warm to cool proximal to distal bilateral. There is mild edema or varicosities noted. Neuro: Protective sensation is intact to the foot and toes when tested with the 5.07 SWM bilateral. Vibratory sensation is decreased at the hallux IPJ bilateral. The hallux is downgoing bilateral. Derm: Nails 1-5 b/l are painful, discolored-yellow, thick, crumbly, dystrophic and with subungal debris. Skin is of normal turgor, texture and hair growth is absent bilateral. There are no hyperkeratosis, ulcerations, scars, verruca or other lesions noted. Ortho: Muscle strength is 5/5 for all pedal groups tested. Ankle joint DF is decreased with the knee extended with no pain or crepitus noted. 1st MPJ ROM is decreased bilateral. Assessment: (B35.1) Onychomycosis (primary encounter diagnosis) (M79.675) Pain in toe of left foot (M79.674) Pain in toe of right foot (E11.42) Diabetic polyneuropathy associated with type 2 diabetes mellitus (HCC) Plan: Patient was seen and evaluated. Nails 1-5 bilateral were debrided in length and thickness. Patient was instructed on the continued importance of diabetic foot care along with proper diet and keeping their blood sugar under control to prevent complications. Stressed the importance of avoiding barefoot walking, wearing good shoes and inspection of feet Smoking cessation encouraged. Patient is to RTC in 3-4 months. ALLIE Grier Matthew 02/27/2024 11:00 AM Signed Diabetes Foot Care Instructions When you have diabetes, proper foot care is very important. Poor foot care may lead to amputation of a foot or leg. As a person with diabetes, you are more vulnerable to foot problems, because diabetes can damage your nerves and reduce blood flow to your feet. Here are some diabetes foot care tips to follow: Wash and Dry Your Feet Daily Use mild soaps Use warm water Pat your skin dry; do not rub. Thoroughly dry your feet. After washing, use lotion on your feet to prevent cracking. Do not put lotion between your toes. Examine Your Feet Each Day Check the tops and bottoms of your feet. Have someone else look at your feet if you cannot see them. Check for dry, cracked skin. Look for blisters, cuts, scratches, or other sores. Check for redness, increased warmth, or tenderness when touching any area of your feet. Check for ingrown toenails, corns, and calluses. If you get a blister or sore from your shoes, do not pop it. Apply a bandage and wear a different pair of shoes. Take Care of Your Toenails Cut toenails after bathing, when they are soft. Cut toenails straight across and smooth with a nail file. Avoid cutting into the corners of toes. Do not cut cuticles. If you have neuropathy (or decreased sensation in your feet) a non destructive testing inspector should always cut your toenails. Be Careful When Exercising Walk and exercise in comfortable shoes. Do not exercise when you have open sores on your feet. Protect Your Feet With Shoes and Socks Never go barefoot. Always protect your feet by wearing shoes or hard-soled slippers or footwear. Avoid shoes with high heels and pointed toes. Avoid shoes that expose your toes or heels (such as open-toed shoes or sandals). These types of shoes increase your risk for injury and potential infections. Try on new footwear with the type of socks you usually wear. Do not wear new shoes for more than an hour at a time. Change your socks daily. Look and feel inside your shoes before putting them on to make sure there are no foreign objects or rough areas. Avoid tight socks. Wear natural-fiber socks (cotton, wool, or a cotton-wool blend). Wear special shoes if your health care provider recommends them. Wear shoes/boots that will protect your feet from various weather conditions (cold, moisture, etc.). Make sure your shoes fit pr (more content not included)... Normal [facility] D/C Summary- SPon 02-06-2024 D/C Summary- SP Normal [facility] CNOVon 01-19-2024 CNOV Office Visit (UCWSTR) KAM GREENBERG ([id number]) 1950 M Date Time Provider Department 01/19/24 4:30 PM CARMEN VIRGEN WSTR During your visit today, we recorded the following information about you: Temperature Pulse Respiration Blood pressure 98.5 degrees 62/minute 16/minute 142/60 Weight 80.4 kg Carmen Virgen APRN.WINERY WORKER 01/19/2024 5:25 PM Signed This note was created using [employer]. Subjective Kam Greenberg is a 73 year old male. 73 year old male with PMH DM, CAD, CHF, HTN, hyperlipidemia, CABG, CAD, COPD with home oxygen, OA, presents for infection in my nose Acute onset 2 to 3 weeks ago Left nares Endorses he squeezed it and green thick like toothpaste came out States that it has returned again. Denies fever or chills Denies known trauma or injury Denies rash Denies streaking. Wears oxygen 17/02 via nasal cannula The history is provided by the patient. No ware server was used. Abscess This is a new problem. The current episode started 1 to 4 weeks ago. The problem occurs constantly. The problem has been waxing and waning. Pertinent negatives include no abdominal pain, anorexia, arthralgias, change in bowel habit, chest pain, chills, congestion, coughing, diaphoresis, fatigue, fever, headaches, joint swelling, myalgias, nausea, neck pain, numbness, rash, sore throat, swollen glands, urinary symptoms, vertigo, visual change, vomiting or weakness. Nothing aggravates the symptoms. Treatments tried: squeezing the wound. The treatment provided no relief. 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 11/06/2005 Degeneration of thoracolumbar intervertebral disc 11/06/2005 compression fractures Diabetes mellitus (HCC) Dysmetabolic syndrome X Esophageal reflux Essential tremor 11/23/2015 Generalized osteoarthrosis, unspecified site 10/16/2005 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 CVA (cerebrovascular accident) 03/17/2007 Left arm weakness CO (myocardial infarction) ([facility]) 1999 Other and unspecified hyperlipidemia Peripheral vascular disease ([facility]) 11/06/2005 Polyneuropathy in diabetes(357.2) 11/07/2005 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 Polio RPR 1ST INGUN HRNA AGE 6 YRS/> REDUCIBLE 1957 Hernia repair, inguinal, right TRANSCATH STENT INIT VESSEL,PERCUT MARKUS to SVG to RCA AND MARKUS to SVG to OM ALLERGIES Lisinopril, Morphine, Oysters, and Tylenol [Acetaminophen] MEDICATIONS ipratropium-albutero l (DUONEB) 0.5 mg-3 mg(2.5 mg base)/3 mL nebuInhale 3 mL as instructed four times daily.Disp: 90 mLRfl: 5 amLODIPine (NORVASC) 5 mg tabletTake 1 tablet by mouth once daily.Disp: 90 tabletRfl: 1 blood sugar diagnostic (BLOOD GLUCOSE TEST) test stripTest blood sugar(s) 2 times daily. Dx: Other DM Code E11.41 Insulin: NoDisp: 100 StripRfl: 5 fluticasone (FLONASE) 50 mcg/actuation nasal sprayUse 1 [place] in each nostril two times a day.Disp: 1 EachRfl: 3 clopidogrel (PLAVIX) 75 mg tabletTake 1 tablet by mouth once daily.Disp: 90 tabletRfl: 1 metFORMIN (GLUCOPHAGE) 500 mg tabletTake 1 tablet by mouth two times a day with meals.Disp: 180 tabletRfl: 1 sertraline (ZOLOFT) 100 mg tabletTake 1 tablet by mouth once daily.Disp: 90 tabletRfl: 1 predniSONE (DELTASONE) 10 mg tabletTAKE BY MOUTH 4 TABLETS DAILY FOR 2 DAYS, THEN 3 TABLETS DAILY FOR 2 DAYS, THEN 2 TABLETS DAILY FOR 2 DAYS, THEN 1 TABLET DAILY FOR 2 DAYS.Disp: 20 tabletRfl: 0 albuterol HFA (VENTOLIN HFA) 90 mcg/actuation inhalerInhale 2 Puffs as instructed every 4 hours as needed for wheezing/shortness of breath.Disp: 18 gRfl: 5 atorvastatin (LIPITOR) 40 mg tabletTake 1 tablet by mouth daily at bedtime.Disp: 90 tabletRfl: 1 primidone (MYSOLINE) 50 mg tabletTake 1 tablet by mouth two times a day.Disp: 180 tabletRfl: 1 metoprolol tartrate, short acting, (LOPRESSOR) 50 mg tabletTake 1 tablet by mouth two times a day.Disp: 180 tabletRfl: 1 TRELEGY ELLIPTA 100-62.5-25 mcg inhalation powderINHALE 1 PUFF INSTRUCTED ONCE DAILY.Disp: 60 EachRfl: 11 Blood-Glucose Meter monitoring kitGlucose Meter of Choice - Kit - Dx: Other DM Code E11.49Disp: 1 EachRfl: 0 saw/vit E/sod miguel/lyc (more content not included)... Normal [facility] CNOVon 12-18-2023 [facility] Office Visit (INTMWS) KAM GREENBERG ([id number]) 1950 M Date Time Provider Department 12/18/23 2:40 PM ROYCE CARROLL INTMWS During your visit today, we recorded the following information about you: Temperature Pulse Respiration Blood pressure 97.2 degrees 100/minute 20/minute 110/68 Weight 80.3 kg Royce Carroll MD 12/18/2023 3:44 PM Signed This note was created using [employer]. Subjective Kam Greenberg is a 73 year old male. He had no new concerns. He needed refills. He had no falls since his last visit. He was undergoing speech therapy per Dr. Rothman, pulmonary. He seemed more dyspneic today, but denied exacerbation of symptoms or acute illness. His only complain was increasing cramps of both hands for a few weeks. Review of Systems Constitutional: Negative for chills, diaphoresis and fever. HENT: Negative for congestion and sore throat. Respiratory: No increase in sputum, cough, wheezing. Cardiovascular: Negative for chest pain, palpitations and leg swelling. Gastrointestinal: Negative. 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, Without Long-Term Current Use of Insulin ([facility]) At Risk for Falls Abnormality of Gait Chronic Obstructive Pulmonary Disease With (Acute) Exacerbation ([facility]) Chronic Respiratory Failure With Hypoxia ([facility]) Chronic Diastolic Chf (Congestive Heart Failure) ([facility]) Social History Tobacco Use Smoking status: Former Packs/day: 1.00 Years: 52.00 Additional pack years: 0.00 Total pack years: 52.00 Types: Cigarettes Start date: 1967 Quit date: 12/11/2022 Years since quittin.0 Smokeless tobacco: Never Tobacco comments: Smokers in the home. Vaping Use Vaping Use: Never used Substance Use Topics Alcohol use: Not Currently Comment: rare NAB Drug use: No Current Outpatient Medications Medication Sig albuterol HFA (VENTOLIN HFA) 90 mcg/actuation inhaler Inhale 2 Puffs as instructed every 4 hours as needed for wheezing/shortness of breath. atorvastatin (LIPITOR) 40 mg tablet Take 1 tablet by mouth daily at bedtime. primidone (MYSOLINE) 50 mg tablet Take 1 tablet by mouth two times a day. metoprolol tartrate, short acting, (LOPRESSOR) 50 mg tablet Take 1 tablet by mouth two times a day. TRELEGY ELLIPTA 100-62.5-25 mcg inhalation powder INHALE 1 PUFF INSTRUCTED ONCE DAILY. ipratropium-albutero l (DUONEB) 0.5 mg-3 mg(2.5 mg base)/3 mL nebu Inhale 3 mL as instructed four times daily. metFORMIN (GLUCOPHAGE) 500 mg tablet Take 1 tablet by mouth two times a day with meals. amLODIPine (NORVASC) 5 mg tablet Take 1 tablet by mouth once daily. Blood-Glucose Meter monitoring kit Glucose Meter of Choice - Kit - Dx: Other DM Code E11.49 fluticasone (FLONASE) 50 mcg/actuation nasal spray Use 1 [place] in each nostril two times a day. sertraline (ZOLOFT) 100 mg tablet Take 1 tablet by mouth once daily. clopidogrel (PLAVIX) 75 mg tablet Take 1 tablet by mouth once daily. blood sugar diagnostic (BLOOD GLUCOSE TEST) test strip Test blood sugar(s) 2 times daily. Dx: Other DM Code E11.41 Insulin: No saw/vit E/sod miguel/lyc/beta/pyg (PROSTATE HEALTH ORAL) Take 3 tablets by mouth once daily. multivit with minerals/lutein (MULTI-ISABELLE 50 AND OVER ORAL) Take 1 tablet by mouth once daily. nitroglycerin sublingual (NITROSTAT) 0.4 mg SL tablet Dissolve 1 tablet under the tongue every 5 minutes as needed. aspirin, enteric coated (ADULT LOW DOSE ASPIRIN) 81 mg EC tablet Take 1 tablet by mouth once daily. predniSONE (DELTASONE) 10 mg tablet TAKE BY MOUTH 4 TABLETS DAILY FOR 2 DAYS, THEN 3 TABLETS DAILY FOR 2 DAYS, THEN 2 TABLETS DAILY FOR 2 DAYS, THEN 1 TABLET DAILY FOR 2 DAYS. (Patient not taking: Reported on 11/04/2023) No current facility-administere d medications for this visit. Facility-Administere d Medications Ordered in Other Visits Medication Dose Route Frequency propofol injection (DIPRIVAN) INTRAVENOUS PRN midazolam (PF) injection (VERSED) INTRAVENOUS PRN Objective BP 110/68 (BP Site: Left Arm, BP Position: Sitting, BP Cuff Size: Large Adult) Pulse 100 Temp 36.2 ?C (97.2 ?F) (Temporal) Resp 20 Wt 80.3 kg (177 lb) SpO2 97% BMI 23.19 kg/m? Physical Exam Constitutional: General: He is not in acute distress. Appearance: He is ill-appearing. He is not toxic-appearing or diaphor (more content not included)... Normal [facility] SP/HP.SP.Reva 12-10-2023 SP/HP.SP.EV Normal [facility] XR Chest PA and Lateralon IMPRESSION: 1. Hyperinflation of the lungs. There are some reticular opacities in the lower lungs, possibly due to fibrosis. 2. Blunting of the costophrenic angles, possibly due to trace pleural effusions or scarring Lumber Sticker: [facility] Transcribe Date/Time: Sep 22 2023 5:09P Dictated by : TATIANA EAGLE MD This examination was interpreted and the report reviewed and electronically signed by: TATIANA EAGLE MD on Sep 22 2023 5:11PM [facility] DIVISION OF RADIOLOGY * * *Final Report* * * DATE OF EXAM: Sep 19 2023 4:03PM WOX [id number] - XR CHEST 2V FRONTAL/LAT / PROCEDURE REASON: Chronic obstructive pulmonary disease with (acute) exacerbation (HCC) * * * * Physician Interpretation * * * * EXAMINATION: CHEST RADIOGRAPH (2 VIEW FRONTAL & LATERAL) CLINICAL HISTORY: Chronic obstructive pulmonary disease with (acute) exacerbation (HCC) MQ: XC2_6 EXAM DATE/TIME: 09/19/2023 4:03 PM COMPARISON: Chest x-ray 11/11/2008 RESULT: Lines, tubes, and devices: None. Lungs and pleura: Hyperinflation of the lungs. No consolidation. There are some reticular opacities in bilateral lower lungs, possibly due to fibrosis. There is blunting of the costophrenic angles. Cardiomediastinal silhouette: Normal cardiomediastinal silhouette. Bones and soft tissues: Degenerative disease of the thoracic spine. Median sternotomy wires are noted. DIVISION OF RADIOLOGY Provider, [facility] - 09/22/2023 * * *Final Report* * * DATE OF EXAM: Sep 19 2023 4:03PM WOX [id number] - XR CHEST 2V FRONTAL/LAT / PROCEDURE REASON: Chronic obstructive pulmonary disease with (acute) exacerbation (HCC) * * * * Physician Interpretation * * * * EXAMINATION: CHEST RADIOGRAPH (2 VIEW FRONTAL & LATERAL) CLINICAL HISTORY: Chronic obstructive pulmonary disease with (acute) exacerbation (HCC) MQ: XC2_6 EXAM DATE/TIME: 09/19/2023 4:03 PM COMPARISON: Chest x-ray 11/11/2008 RESULT: Lines, tubes, and devices: None. Lungs and pleura: Hyperinflation of the lungs. No consolidation. There are some reticular opacities in bilateral lower lungs, possibly due to fibrosis. There is blunting of the costophrenic angles. Cardiomediastinal silhouette: Normal cardiomediastinal silhouette. Bones and soft tissues: Degenerative disease of the thoracic spine. Median sternotomy wires are noted. IMPRESSION IMPRESSION: 1. Hyperinflation of the lungs. There are some reticular opacities in the lower lungs, possibly due to fibrosis. 2. Blunting of the costophrenic angles, possibly due to trace pleural effusions or scarring Lumber Sticker: [facility] Transcribe Date/Time: Sep 22 2023 5:09P Dictated by : TATIANA EAGLE MD This examination was interpreted and the report reviewed and electronically signed by: TATIANA EAGLE MD on Sep 22 2023 5:11PM EST [facility] XR Chest PA and LateralOrder ed By: [facility] Provider on 09-22-2023 [facility] ALBUMIN/CREAT RATIO RND URon 09-20-2023 Albumin DL <= 20 mg/L (U) [Mass/Vol] 556.8 mg/L [facility] Albumin/Creatinine (U) [Mass ratio] 367 mg/g High <30 mg/g [facility] Creatinine (U) [Mass/Vol] 151.6 mg/dL 20.0 - 300.0 mg/dL [facility] Comprehensive metabolic 2000 panelon 09-20-2023 Albumin [Mass/Vol] 3.6 g/dL Low 3.9 - 4.9 g/dL [facility] ALP [Catalytic activity/Vol] 114 U/L High 38 - 113 U/L [facility] ALT [Catalytic activity/Vol] 11 U/L 10 - 54 U/L [facility] Anion gap [Moles/Vol] 12 mmol/L 9 - 18 mmol/L [facility] AST [Catalytic activity/Vol] 26 U/L 14 - 40 U/L [facility] Bilirubin [Mass/Vol] 0.2 mg/dL 0.2 - 1 .3 mg/dL [facility] Calcium [Mass/Vol] 9.1 mg/dL 8.5 - 10. 2 mg/dL [facility] Chloride [Moles/Vol] 102 mmol/L 97 - 10 5 mmol/L [facility] CO2 [Moles/Vol] 26 mmol/L 22 - 30 mmol/L [facility] Creatinine [Mass/Vol] 1.25 mg/dL High 0.73 - 1.22 mg/dL [facility] Estimated Glomerular Filtration Rate 62 mL/min/1.73m >=60 mL/min/1.73m [facility] Glucose [Mass/Vol] 108 mg/dL High 74 - 99 mg/dL [facility] Potassium [Moles/Vol] 5.2 mmol/L High 3.7 - 5.1 mmol/L [facility] Protein [Mass/Vol] 7.1 g/dL 6.3 - 8.0 g/dL [facility] Sodium [Moles/Vol] 140 mmol/L 136 - 144 mmol/L [facility] Urea nitrogen [Mass/Vol] 13 mg/dL 9 - 24 mg/dL [facility] HbA1c (Bld)on 09-20-2023 Average glucose Estimated from glycated hemoglobin (Bld) [Mass/Vol] 140 mg/dL [facility] HbA1c (Bld) [Mass fraction] 6.5 % High 4.3 - 5.6 % [facility] LIPID PANEL, NONFASTINGon Cholesterol [Mass/Vol] 91 mg/dL <200 mg/dL [facility] HDL Cholesterol, Nonfasting 39 mg/dL Low >39 mg/dL [facility] LDL Cholesterol, Nonfasting 32 mg/dL <100 mg/dL [facility] LDL/HDL Ratio, Nonfasting 0.82 mg/dL <2.54 mg/dL [facility] Non HDL Cholesterol, Nonfasting 52 mg/dL <130 mg/dL [facility] Total Chol/HDL Ratio, Nonfasting 2.33 mg/dL <5.10 mg/dL [facility] Triglycerides, Nonfasting 102 mg/dL <150 mg/dL [facility] VLDL Cholesterol, Nonfasting 20 mg/dL <30 mg/dL [facility] XR Chest PA and Lateralon Radiology Study observation (narrative) Lynette Flores ANES POSTPROC EVALon 023 ANES POSTPROC EVAL HNO ID: [id number] Author: Isabel Alan MD Service: Anesthesiology Author Type: Physician Type: Anesthesia Postprocedure Evaluation Filed: 07/08/2023 1:00 PM Note Text: POST ANESTHESIA EVALUATION NOTE : 1950 Procedure Summary Date: 07/08/23 Room / Location: OR OR Anesthesia Start: 1216 Anesthesia Stop: Procedures: PHACOEMULSIFICATION CATARACT IMPLANT INTRAOCULAR LENS W/O ENDOSCOPIC CYCLOPHOTOCOAGULATIO N (Left: Eye) OPHTHALMIC BIOMETRY BY PARTIAL COHERENCE INTERFEROMETRY W/INTRAOCULAR LENS POWER CALCULATION (Left: Eye) Diagnosis: Combined forms of age-related cataract of left eye (Combined forms of age-related cataract of left eye [H25.812]) Surgeons: Tabatha Jarrett MD Responsible Provider: Isabel Alan MD Anesthesia Type: MAC ASA Status: 3 Anesthesia Type: MAC Last Vitals Vitals Value Taken Time BP 153/57 07/08/23 1300 Temp 97 07/08/23 1300 Pulse 57 07/08/23 1300 Resp 18 07/08/23 1300 SpO2 96% 07/08/23 1300 Post Anesthesia Patient Status Patient Evaluation: bedside. Anticipated Disposition: phase 2 then home. Neurological Status: aware and responsive. Pulmonary Status: breathing comfortably on room air Airway Control: returned to baseline unsupported. Cardiovascular Status: stable. Pain Management: clinically adequate Postoperative Hydration: acceptable. Intraoperative Events: no significant anesthesia events Post Operative Nausea/Vomiting Status: no significant post operative nausea or vomiting Recommendation: continue current plan of care. Anesthesia Observations No Documentation SIGNATURE: Isabel Alan MD PATIENT NAME: Kam Greenberg DATE: July 08, 2023 TIME: 1:00 PM CSN: [id number] [facility] ANES PRE-OPon 07-08-2023 ANES PRE-OP HNO ID: [id number] Author: Isabel Alan MD Service: Anesthesiology Author Type: Physician Type: Anesthesia Preprocedure Evaluation Filed: 07/08/2023 12:10 PM Note Text: ANESTHESIOLOGY DAY OF SURGERY NOTE : 1950 Procedure Information Date/Time: 07/08/23 1200 Procedures: PHACOEMULSIFICATION CATARACT IMPLANT INTRAOCULAR LENS W/O ENDOSCOPIC CYCLOPHOTOCOAGULATIO N (Left: Eye) OPHTHALMIC BIOMETRY BY PARTIAL COHERENCE INTERFEROMETRY W/INTRAOCULAR LENS POWER CALCULATION (Left: Eye) Location: LD OR OR Surgeons: Tabatha Jarrett MD Estimated body mass index is 23.95 kg/m? as calculated from the following: Height as of 06/13/23: 186.7 cm (6' 1.5). Weight as of 06/13/23: 83.5 kg (184 lb). Most recent hematocrit and potassium results: Hematocrit 36.6 05/01/2023 Potassium 5.0 05/01/2023 Relevant Problems CARDIO (+) Coronary atherosclerosis (+) Essential hypertension (+) S/P CABG x 3 (+) Stenosis of left carotid artery (+) Type 2 diabetes mellitus with diabetic peripheral angiopathy without gangrene, without long-term current use of insulin (HCC) ENDO (+) Type 2 diabetes mellitus with diabetic mononeuropathy, without long-term current use of insulin (HCC) (+) Type 2 diabetes mellitus with diabetic peripheral angiopathy without gangrene, without long-term current use of insulin (HCC) -RENAL (+) Stage 3a chronic kidney disease (HCC) PULMONARY (+) Chronic obstructive pulmonary disease with (acute) exacerbation (HCC) I - PHYSICAL EVALUATION AIRWAY Patient intubated: No. Tracheostomy tube not present Mallampati: II. TM distance: >3 FB. Neck ROM: full ROM without neurological symptoms. Mouth opening: adequate. Short neck: no. Thick neck: no Suazo present: no Microretrognathia/Mi cronagthia/Recessed Chin: No DENTAL Dental findings: edentulous. Additional exam findings: yes. CARDIOVASCULAR Normal cardiovascular observations. PULMONARY Normal pulmonary observations. II - ANESTHESIA PLAN ASA Score: 3 Anesthetic Plan: MAC The patient is not a current smoker. NPO Status: adequate Beta Kaushik Monitoring Plan Monitoring plan: standard ASA. Post Procedure Analgesic Plan Postoperative analgesic plan: parenteral or oral opioids. Informed Consent Anesthetic risks, benefits, alternatives, personnel and consent discussed: yes. Patient / Responsible Green Party agrees to proceed: yes Patient / Surrogate agrees to blood products: Yes DNR status not reviewed with patient and/or family prior to surgery. Significant changes in the patient condition since the History and Physical, not otherwise documented in primary service progress note: no. Potential Anesthesia issues that may suggest increased risk of complications or contraindication to planned procedure: other. Pt. On 3L oxygen Vitals Value Taken Time BP 142/62 07/08/23 1108 Pulse 58 07/08/23 1108 Resp 22 07/08/23 1108 Temp 36.5 ?C (97.7 ?F) 07/08/23 1108 SpO2 100 % 07/08/23 1108 Facility-Administere d Medications as of 07/08/2023 Medication Dose Route Frequency - lactated ringers iv infusion 30 mL/hr INTRAVENOUS CONTINUOUS - [COMPLETED] cyclopentolate 1%-tropicamide 1%-PHENYLephrine 2.5% ophthalmic drops 1 Drop LEFT EYE q 5 MIN - [COMPLETED] tetracaine (PF) 0.5 % 1 Drop (OPTICAINE) 1 Drop LEFT EYE q 5 MIN - propofol injection (DIPRIVAN) INTRAVENOUS PRN - midazolam (PF) injection (VERSED) INTRAVENOUS PRN Outpatient Medications as of 07/08/2023 Medication Sig - metoprolol tartrate, short acting, (LOPRESSOR) 50 mg tablet Take 1 tablet by mouth twice daily. - fluticasone-umeclidi n-vilanter (TRELEGY ELLIPTA) 100-62.5-25 mcg inhalation powder Inhale 1 Puff as instructed once daily. - keTORolac (ACULAR) 0.5 % ophthalmic solution Use 1 Drop in the right eye four times daily. Please start 2 days prior to your surgical date - albuterol HFA (VENTOLIN HFA) 90 mcg/actuation inhaler Inhale 2 Puffs as instructed every 4 hours as needed for wheezing/shortness of breath. - sertraline (ZOLOFT) 100 mg tablet Take 1 tablet by mouth once daily. - atorvastatin (LIPITOR) 40 mg tablet Take 1 tablet by mouth daily at bedtime. - primidone (MYSOLINE) 50 mg tablet Take 1 tablet by mouth twice daily. - clopidogrel (PLAVIX) 75 mg tablet Take 1 tablet by mouth once daily. - metFORMIN (GLUCOPHAGE) 500 mg tablet Take 1 tablet by mouth twice daily with meals. - blood sugar diagnostic (BLOOD GLUCOSE TEST) test strip Test blood sugar(s) 2 times daily. Dx: Other DM Code E11.41 Insulin: No - ipratropium-albutero l (DUONEB) 0.5 mg-3 mg(2.5 mg base)/3 mL nebu Inhale 3 mL as instructed four times daily. - saw/vit E/sod miguel/lyc/beta/pyg (PROSTATE HEALTH ORAL) Take 3 tablets by mouth once daily. - multivit with minerals/lutein (MULTI-ISABELLE 50 AND OVER ORAL) Take 1 tablet by mouth once daily. - nitroglycerin sublingual (NITROSTAT) 0.4 mg SL tablet Dissolve 1 tablet under the (more content not included)... Normal [facility] HISTORY PHYSICALon HISTORY PHYSICAL HNO ID: [id number] Author: Tabatha Jarrett MD Service: Ophthalmology Author Type: Physician Type: HANDP Filed: 07/08/2023 11:58 AM Note Text: UPDATED HISTORY AND PHYSICAL EXAMINATION SERVICE DATE: 07/08/2023 SERVICE TIME: 11:58 AM PHYSICAL EXAM MUST BE COMPLETED ON ADMISSION The History and Physical (completed in the past 30 days) has been reviewed and the patient has been examined. The contents accurately reflect the patient's condition with the following additions or revisions since the HANDP was completed. Examination indicates no changes. This HANDP can be found in the attached. SIGNATURE: Tabatha Jarrett MD PATIENT NAME: Kam Greenberg DATE: July 08, 2023 TIME: 11:58 AM [facility] NURSING PROGon 07-08-2023 NURSING PROG HNO ID: [id number] Author: Gloria Gao RN Service: Nursing Author Type: Registered Nurse Type: Nursing Progress Note Filed: 07/08/2023 1:09 PM Note Text: Eye pad and eye shield present over left eye and secured with tape. Dressing is dry and intact. Normal [facility] OPERATIVE NOon 07-08-2023 OPERATIVE NO HNO ID: [id number] Author: Tabatha Jarrett MD Service: Ophthalmology Author Type: Physician Type: Operative Report Filed: 07/08/2023 1:00 PM Note Text: OPERATIVE/PROCEDURE REPORT OPHTHAMOLOGY LOG ID: [id number] SURGERY/PROCEDURE DATE: 07/08/2023 INCISION/PROCEDURE START TIME: 12:34 PM INCISION CLOSE/PROCEDURE END TIME: 12:49 PM SURGEON(S)/PROCEDURA LIST(S) AND CARE NAVIGATOR(S): Surgeon(s) and Role: * Tabatha Jarrett MD - Primary PROCEDURE(S): Procedure(s) (LRB): PHACOEMULSIFICATION CATARACT IMPLANT INTRAOCULAR LENS W/O ENDOSCOPIC CYCLOPHOTOCOAGULATIO N (Left) OPHTHALMIC BIOMETRY BY PARTIAL COHERENCE INTERFEROMETRY W/INTRAOCULAR LENS POWER CALCULATION (Left) PREOPERATIVE DIAGNOSIS: Combined form of age-related cataract, Left eye POST-OP/POST-PROCEDU RE DIAGNOSIS: Same as Preop OPERATIVE INDICATIONS: Blurred vision affecting activities of daily living (ADLs) ANESTHESIA: Monitored Anesthesia Care PROCEDURE DETAILS: The patient was transferred to the operating room where the eye was prepared and draped in sterile fashion. An eyelid speculum was placed and a paracentesis was performed. Preservative-free lidocaine 1% and viscoelastic were injected into the anterior chamber. A keratome was used to perform a clear corneal incision. Capsulorrhexis and hydrodissection were performed. The lens nucleus was removed with the phacoemulsification instrument. The residual cortex was removed with the irrigation/aspiratio n instrument. The capsular bag was filled with viscoelastic, and the above-noted intraocular lens was inserted into the capsular bag. The residual viscoelastic was removed with the irrigation/aspiratio n instrument. The anterior chamber was reformed with balanced salt solution and the corneal wounds were hydrated. A water-tight corneal closure was achieve. No suture(s) were placed in the wound. Intracameral injection of antibiotic was performed. Topical steroid medication was applied to the operated eye and it was covered with a protective shield. The patient was transferred to the recovery room in stable condition. ESTIMATED BLOOD LOSS: Minimal unless noted here. SPECIMENS: * No specimens in log * IMPLANTABLE DEVICES: Implant Name Type Inv. Item Serial No. Gold Frame Assembler Lot No. LRB No. Used Action Model No. LENS ACRYSOF ULTRASERT +18 DIOPTER ACRYLIC IOL 1 PIECE FOLDABLE UV BLUE - [id number] Intraocular Lens LENS ACRYSOF ULTRASERT +18 DIOPTER ACRYLIC IOL 1 PIECE FOLDABLE UV BLUE [id number] [employer] Left 1 Implanted [id number] Ocular Co-Morbidities: No Intra-operative Complications None I/primary surgeon/proceduralis t performed the entire procedure. SIGNATURE: Tabatha Jarrett MD PATIENT NAME: Kam Greenberg DATE: July 08, 2023 TIME: 12:54 PM PAGER/CONTACT #: [phone] [facility] NURSING PROGon 07-07-2023 NURSING PROG HNO ID: [id number] Author: Fran Latham RN Service: Nursing Author Type: Registered Nurse Type: Nursing Progress Note Filed: 07/07/2023 10:15 AM Note Text: Pre-Procedure Checklist Kam Greenberg [phone] (home) 1950 72 year old There is no height or weight on file to calculate BMI. Allergies: Lisinopril Angioedema Morphine Shortness of Breath Comment:rapid heart rate Oysters GI Upset Tylenol [Acetaminop* Dystonia Comment:flushed, cold sweats, shakey Procedure: Cataract Left Eye Date of Procedure: 07/08/2023 Smoke: No Alcohol: No Street Drugs: No Diabetic: Yes Insulin: No Problems with Anesthesia (Self or Family?) No Promotions Team Leader: Pt states he is unsure Saw guest request runner in the last 6 months? No Recent EKG/Cardiac Testing: Yes, pre-op testing ECG Chest pain in the last 6 months (<6 months cardiac clearance needed): No History of: Heart Attack/Stroke/Blood Clot?: Yes, CO and CVA Shortness of Breath: Yes Asthma: No Inhalers: Yes Any Outstanding Consults?: No If yes, list: Additional Notes: [facility] ANES POSTPROC EVALon 023 ANES POSTPROC EVAL HNO ID: [id number] Author: Shade Jacques APRN.ROOF BOLTER OPERATOR Service: ? Author Type: Nurse Director Transition Type: Anesthesia Postprocedure Evaluation Filed: 05/06/2023 1:45 PM Note Text: POST ANESTHESIA EVALUATION NOTE : 1950 Procedure Summary Date: 05/06/23 Room / Location: OR OR Anesthesia Start: 1304 Anesthesia Stop: Procedures: PHACOEMULSIFICATION CATARACT IMPLANT INTRAOCULAR LENS W/O ENDOSCOPIC CYCLOPHOTOCOAGULATIO N (Right: Eye) OPHTHALMIC BIOMETRY BY PARTIAL COHERENCE INTERFEROMETRY W/INTRAOCULAR LENS POWER CALCULATION (Right: Eye) Diagnosis: Nuclear sclerosis of right eye (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]) Surgeons: Tabatha Jarrett MD Responsible Provider: Shade Jacques APRN.ROOF BOLTER OPERATOR Anesthesia Type: MAC ASA Status: 3 Anesthesia Type: MAC Last Vitals Vitals Value Taken Time BP 157]72 05/06/23 1330 Temp 35.9 ?C (96.7 ?F) 05/06/23 1146 Pulse 53 05/06/23 1333 Resp 22 05/06/23 1148 SpO2 96 % 05/06/23 1333 Vitals shown include unvalidated device data. Post Anesthesia Patient Status Patient Evaluation: PACU. PACU/ICU Patient Condition: stable. Anticipated Disposition: phase 2 then home. Neurological Status: aware and responsive. Pulmonary Status: breathing comfortably on room air Airway Control: returned to baseline unsupported. Cardiovascular Status: stable. Pain Management: clinically adequate Postoperative Hydration: acceptable. Intraoperative Events: no significant anesthesia events Post Operative Nausea/Vomiting Status: no significant post operative nausea or vomiting Recommendation: continue current plan of care. Anesthesia Observations No Documentation SIGNATURE: Shade Jacques APRN.ROOF BOLTER OPERATOR PATIENT NAME: Kam Greenberg DATE: May 06, 2023 TIME: 1:34 PM CSN: [id number] [facility] ANES PRE-OPon 05-06-2023 ANES PRE-OP HNO ID: [id number] Author: Shade Jacques APRN.KARTHIK Service: ? Author Type: Nurse Director Transition Type: Anesthesia Preprocedure Evaluation Filed: 05/06/2023 12:28 PM Note Text: ANESTHESIOLOGY DAY OF SURGERY NOTE : 1950 Procedure Information Date/Time: 05/06/23 1300 Procedures: PHACOEMULSIFICATION CATARACT IMPLANT INTRAOCULAR LENS W/O ENDOSCOPIC CYCLOPHOTOCOAGULATIO N (Right: Eye) OPHTHALMIC BIOMETRY BY PARTIAL COHERENCE INTERFEROMETRY W/INTRAOCULAR LENS POWER CALCULATION (Right: Eye) Location: OR OR Surgeons: Tabatha Jarrett MD Estimated body mass index is 24.46 kg/m? as calculated from the following: Height as of 05/01/23: 184.2 cm (6' 0.5). Weight as of 05/01/23: 83 kg (182 lb 14.4 oz). Most recent hematocrit and potassium results: Hematocrit 36.6 05/01/2023 Potassium 5.0 05/01/2023 Relevant Problems CARDIO (+) Coronary atherosclerosis (+) Essential hypertension (+) S/P CABG x 3 (+) Stenosis of left carotid artery (+) Type 2 diabetes mellitus with diabetic peripheral angiopathy without gangrene, without long-term current use of insulin (HCC) ENDO (+) Type 2 diabetes mellitus with diabetic mononeuropathy, without long-term current use of insulin (HCC) (+) Type 2 diabetes mellitus with diabetic peripheral angiopathy without gangrene, without long-term current use of insulin (HCC) -RENAL (+) Stage 3a chronic kidney disease (HCC) PULMONARY (+) Chronic obstructive pulmonary disease with (acute) exacerbation ([facility]) I - PHYSICAL EVALUATION AIRWAY Patient intubated: No. Tracheostomy tube not present Mallampati: I. TM distance: >3 FB. Neck ROM: full ROM without neurological symptoms. Mouth opening: adequate. Short neck: no. Thick neck: no DENTAL Dental findings: edentulous. Additional exam findings: no II - ANESTHESIA PLAN ASA Score: 3 Anesthetic Plan: MAC The patient is not a current smoker. NPO Status: adequate Beta Kaushik Administration of chronic beta kaushik medication not planned. Reasons for not administering beta kaushik perioperatively: other Monitoring Plan Monitoring plan: standard ASA. Post Procedure Analgesic Plan Postoperative analgesic plan: parenteral or oral opioids. Informed Consent Anesthetic risks, benefits, alternatives, personnel and consent discussed: yes. Patient / Responsible Green Party agrees to proceed: yes Patient / Surrogate agrees to blood products: Yes Potential Anesthesia issues that may suggest increased risk of complications or contraindication to planned procedure: none. Vitals Value Taken Time BP 151/56 05/06/23 1147 Pulse 53 05/06/23 1148 Resp 14 05/06/23 1148 Temp 35.9 ?C (96.7 ?F) 05/06/23 1146 SpO2 100 % 05/06/23 1148 Vitals shown include unvalidated device data. Facility-Administere d Medications as of 05/06/2023 Medication Dose Route Frequency - [COMPLETED] cyclopentolate 1%-tropicamide 1%-PHENYLephrine 2.5% ophthalmic drops 1 Drop RIGHT EYE q 5 MIN - lactated ringers iv infusion 30 mL/hr INTRAVENOUS CONTINUOUS - [COMPLETED] tetracaine (PF) 0.5 % 1 Drop (OPTICAINE) 1 Drop RIGHT EYE q 5 MIN Outpatient Medications as of 05/06/2023 Medication Sig - albuterol HFA (VENTOLIN HFA) 90 mcg/actuation inhaler Inhale 2 Puffs as instructed every 4 hours as needed for wheezing/shortness of breath. - amLODIPine (NORVASC) 5 mg tablet Take 1 tablet by mouth once daily. - aspirin, enteric coated (ADULT LOW DOSE ASPIRIN) 81 mg EC tablet Take 1 tablet by mouth once daily. - atorvastatin (LIPITOR) 40 mg tablet Take 1 tablet by mouth daily at bedtime. - blood sugar diagnostic (BLOOD GLUCOSE TEST) test strip Test blood sugar(s) 2 times daily. Dx: Other DM Code E11.41 Insulin: No - Blood-Glucose Meter monitoring kit Glucose Meter of Choice - Kit - Dx: Other DM Code E11.49 - clopidogrel (PLAVIX) 75 mg tablet Take 1 tablet by mouth once daily. - fluticasone (FLONASE) 50 mcg/actuation nasal spray Use 1 [place] in each nostril twice daily. - furosemide (LASIX) 20 mg tablet Take 1 tablet by mouth once daily. - ipratropium-albutero l (DUONEB) 0.5 mg-3 mg(2.5 mg base)/3 mL nebu Inhale 3 mL as instructed four times daily. - metFORMIN (GLUCOPHAGE) 500 mg tablet Take 1 tablet by mouth twice daily with meals. - metoprolol tartrate, short acting, (LOPRESSOR) 50 mg tablet Take 1 tablet by mouth twice daily. - multivit with minerals/lutein (MULTI-ISABELLE 50 AND OVER ORAL) Take 1 tablet by mouth once daily. - nitroglycerin sublingual (NITROSTAT) 0.4 mg SL tablet Dissolve 1 tablet under the tongue every 5 minutes as needed. - primidone (MYSOLINE) 50 mg tablet Take 1 tablet by mouth twice daily. - saw/vit E/sod miguel/lyc/beta/pyg (PROSTATE HEALTH ORAL) Take 3 tablets by mouth once daily. - sertraline (ZOLOFT) 100 mg tablet Take 1 tablet by mouth once daily. I have interviewed and examined the patient. I have reviewed the medical record and/or the pre-anesthesia evaluation, pertinent (more content not included)... Normal [facility] HISTORY PHYSICALon HISTORY PHYSICAL HNO ID: [id number] Author: Tabatha Jarrett MD Service: Ophthalmology Author Type: Physician Type: HANDP Filed: 05/06/2023 12:21 PM Note Text: UPDATED HISTORY AND PHYSICAL EXAMINATION SERVICE DATE: 05/06/2023 SERVICE TIME: 12:21 PM PHYSICAL EXAM MUST BE COMPLETED ON ADMISSION The History and Physical (completed in the past 30 days) has been reviewed and the patient has been examined. The contents accurately reflect the patient's condition with the following additions or revisions since the HANDP was completed. Examination indicates no changes. This HANDP can be found in the attached. SIGNATURE: Tabatha Jarrett MD PATIENT NAME: Kam Greenberg DATE: May 06, 2023 TIME: 12:21 PM Normal [facility] OPERATIVE NOon 05-06-2023 OPERATIVE NO HNO ID: [id number] Author: Tabatha Jarrett MD Service: Ophthalmology Author Type: Physician Type: Operative Report Filed: 05/06/2023 1:37 PM Note Text: OPERATIVE/PROCEDURE REPORT OPHTHAMOLOGY LOG ID: [id number] SURGERY/PROCEDURE DATE: 05/06/2023 INCISION/PROCEDURE START TIME: 1:14 PM INCISION CLOSE/PROCEDURE END TIME: 1:33 PM SURGEON(S)/PROCEDURA LIST(S) AND CARE NAVIGATOR(S): Surgeon(s) and Role: * Tabatha Jarrett MD - Primary PROCEDURE(S): Procedure(s) (LRB): PHACOEMULSIFICATION CATARACT IMPLANT INTRAOCULAR LENS W/O ENDOSCOPIC CYCLOPHOTOCOAGULATIO N (Right) OPHTHALMIC BIOMETRY BY PARTIAL COHERENCE INTERFEROMETRY W/INTRAOCULAR LENS POWER CALCULATION (Right) PREOPERATIVE DIAGNOSIS: Combined form of age-related cataract, Right eye POST-OP/POST-PROCEDU RE DIAGNOSIS: Same as Preop OPERATIVE INDICATIONS: Blurred vision affecting activities of daily living (ADLs) ANESTHESIA: Monitored Anesthesia Care PROCEDURE DETAILS: The patient was transferred to the operating room where the eye was prepared and draped in sterile fashion. An eyelid speculum was placed and a paracentesis was performed. Preservative-free lidocaine 1% and viscoelastic were injected into the anterior chamber. A keratome was used to perform a clear corneal incision. Capsulorrhexis and hydrodissection were performed. The lens nucleus was removed with the phacoemulsification instrument. The residual cortex was removed with the irrigation/aspiratio n instrument. The capsular bag was filled with viscoelastic, and the above-noted intraocular lens was inserted into the capsular bag. The residual viscoelastic was removed with the irrigation/aspiratio n instrument. The anterior chamber was reformed with balanced salt solution and the corneal wounds were hydrated. A water-tight corneal closure was achieve. No suture(s) were placed in the wound. Intracameral injection of antibiotic was performed. Topical steroid medication was applied to the operated eye and it was covered with a protective shield. The patient was transferred to the recovery room in stable condition. ESTIMATED BLOOD LOSS: Minimal unless noted here. SPECIMENS: * No specimens in log * IMPLANTABLE DEVICES: Implant Name Type Inv. Item Serial No. Gold Frame Assembler Lot No. LRB No. Used Action Model No. LENS ACRYSOF ULTRASERT +18.5 DIOPTER ACRYLIC IOL 1 PIECE FOLDABLE UV BLUE - [id number] Intraocular Lens LENS ACRYSOF ULTRASERT +18.5 DIOPTER ACRYLIC IOL 1 PIECE FOLDABLE UV BLUE [id number] [employer] Right 1 Implanted [id number] Ocular Co-Morbidities: No Intra-operative Complications None I/primary surgeon/proceduralis t performed the entire procedure. SIGNATURE: Tabatha Jarrett MD PATIENT NAME: Kam Greenberg DATE: May 06, 2023 TIME: 1:37 PM PAGER/CONTACT #: [phone] Normal [facility] HEMOGLOBIN A1C (POC)on 01-15 HbA1c (Bld) [Mass fraction] 7.0 % Abnormal 4.2 - 5.6 % [facility] US LEG VEIN DVT ALLY VAS LABo n 12-31-2022 [facility] CBC W Auto Differential pane l (Bld)on 12-30-2022 Basophils (Bld) [#/Vol] 0.04 10*3/uL <0.11 k/uL [facility] Basophils/100 WBC (Bld) 0.4 % [facility] Differential cell count method Nom (Bld) Auto [facility] Eosinophils (Bld) [#/Vol] 0.37 10*3/uL <0.46 k/uL [facility] Eosinophils/100 WBC (Bld) 3.4 % [facility] Erythrocyte distribution width (RBC) [Ratio] 13.7 % 11.5 - 15.0 % [facility] Hematocrit (Bld) [Volume fraction] 36.3 % Low 39.0 - 51.0 % [facility] Hemoglobin (Bld) [Mass/Vol] 11.2 g/dL Low 13.0 - 17.0 g/dL [facility] Immature granulocytes (Bld) [#/Vol] 0.04 10*3/uL <0.10 k/uL [facility] Immature granulocytes/100 WBC (Bld) 0.4 % [facility] Lymphocytes (Bld) [#/Vol] 1.63 10*3/uL 1.00 - 4.00 k/uL [facility] Lymphocytes/100 WBC (Bld) 14.8 % [facility] MCH (RBC) [Entitic mass] 32.1 pg 26.0 - 34.0 pg [facility] MCHC (RBC) [Mass/Vol] 30.9 g/dL 30.5 - 36.0 g/dL [facility] MCV (RBC) [Entitic vol] 104.0 fL High 80.0 - 100.0 fL [facility] Monocytes (Bld) [#/Vol] 0.82 10*3/uL <0.87 k/uL [facility] Monocytes/100 WBC (Bld) 7.4 % C [facility] Neutrophils (Bld) [#/Vol] 8.12 10*3/uL High 1.45 - 7.50 k/uL [facility] Neutrophils/100 WBC (Bld) 73.6 % [facility] Nucleated RBC (Bld) [#/Vol] <0.01 k/uL [facility] Nucleated RBC/100 WBC (Bld) [Ratio] 0.0 /100 WBC [facility] Platelet mean volume (Bld) [Entitic vol] 10.0 fL 9.0 - 12.7 fL [facility] Platelets (Bld) [#/Vol] 198 10*3/uL 150 - 400 k/uL [facility] RBC (Bld) [#/Vol] 3.49 10*6/uL Low 4.20 - 6.0 0 m/uL [facility] WBC (Bld) [#/Vol] 11.02 10*3/uL High 3.70 - 11 .00 k/uL [facility] CT LUNG SCRE[facility] CHEST WO IVCONon 11-02-19 22 [facility] US CAROTID ARTERIES ALLY VAS LABon 10-31-2021 [facility] MRI BRAIN WO IVCONon 022 [facility] CTA NECK W IVCONon 2 Radiology Result ACTIONABLE Abnormal [facility] [id number] 11-18-2019 C1 Esterase Inhibitor 124 Normal [facility] ([place]) Comment on above: Result Comment: Refe rence range: >=41 Unit: % (NOTE) INTERPRETIVE INFORMATION: R-1-Isglwckh Inhib. Functional 68% or greater ........ Normal 41% - 67% ............. Indeterminate 40% or less ........... Abnormal Performed by [email or web address], [address] [place] [id number] [email or web address], Harpal Merlos MD, Lab. Director Performed By: #### C BC, ADIFF, ANEU, BMP, GFR #### [place] [address] CBLon 11-18-2019 CBL . MICRO - Microbiology PROCEDURE: Blood Culture (bacterial) [*1] SOURCE: Blood BODY SITE: COLLECTED DATE/TIME: 11/13/2019 05:32 EDT RECEIVED DATE/TIME: 11/13/2019 10:09 EDT START DATE/TIME: 11/13/2019 10:09 EDT FREE TEXT SOURCE: FINAL REPORTS Final Report [] Verified Date/Time/Personnel: 11/18/2019 10:59 EDT Blood Culture: No Growth at 5 days. PRELIMINARY REPORTS Preliminary Report [] Verified Date/Time/Personnel: 11/13/2019 10:59 EDT Culture has been received in lab and is no growth to date. Routine cultures are held for 5 days. Performing Locations *1: This test was performed at: [facility], [address] [place] [address], [id number] , [facility] Normal [facility] ([place] Comment on above: Performed By: #### C BC, ADIFF, ANEU, BMP, GFR #### [address] [address] CBL . MICRO - Microbiology PROCEDURE: Blood Culture (bacterial) [*1] SOURCE: Blood BODY SITE: COLLECTED DATE/TIME: 11/13/2019 05:27 EDT RECEIVED DATE/TIME: 11/13/2019 10:09 EDT START DATE/TIME: 11/13/2019 10:09 EDT FREE TEXT SOURCE: FINAL REPORTS Final Report [] Verified Date/Time/Personnel: 11/18/2019 10:59 EDT Blood Culture: No Growth at 5 days. PRELIMINARY REPORTS Preliminary Report [] Verified Date/Time/Personnel: 11/13/2019 10:59 EDT Culture has been received in lab and is no growth to date. Routine cultures are held for 5 days. Performing Locations *1: This test was performed at: [address], [address] [place] [address] ([place] Comment on above: Performed By: #### C BC, ADIFF, ANEU, BMP, GFR #### [place] [address] MYCOon 11-18-2019 Mycoplasma IgG Positive Normal [facility] ([place]) Comment on above: Result Comment: INTE RPRETATION OF MYCOPLASMA BY EIA (Effective 08/02/04): Negative No detectable antibodies to M. pneumoniae. Indicates absence of current or previous infection. Positive Reactive for antibodies to M. pneumoniae. Indicates a past or recent infection. Equivocal Equivocal for antibodies to M. pneumoniae. Repeat testing by an alternate method suggested. Performed By: #### C BC, ADIFF, ANEU, BMP, GFR #### [address] [address] .Auto Diffon 11-14-2019 Ammonia (P) [Mass/Vol] 0.40 10 3/mcL Normal 0.09-1.40 [facility] ([place] Comment on above: Performed By: #### C BC, ADIFF, ANEU, BMP, GFR #### [address] [place] [address] Basophils (Bld) [#/Vol] 0.00 10 3/mcL Normal 0.00-0.27 [facility] ([place] Comment on above: Performed By: #### C BC, ADIFF, ANEU, BMP, GFR #### [address] [address] Basophils/100 WBC (Bld) 0.0 % Normal 0.0-2.5 [facility] ([place]) Comment on above: Performed By: #### C BC, ADIFF, ANEU, BMP, GFR #### [address] [address] Eosinophils (Bld) [#/Vol] 0.00 10 3/mcL Normal 0.00-0.65 [facility] ([place] Comment on above: Performed By: #### C BC, ADIFF, ANEU, BMP, GFR #### [address] [address] Eosinophils/100 WBC (Bld) 0.0 % Normal 0.0-6.0 [facility] ([place] Comment on above: Performed By: #### C BC, ADIFF, ANEU, BMP, GFR #### [address] [address] Lymphocytes (Bld) [#/Vol] 1.20 10 3/mcL Normal 0.90-4.32 [facility] ([place]) Comment on above: Performed By: #### C BC, ADIFF, ANEU, BMP, GFR #### [address] [address] Lymphocytes/100 WBC (Bld) 10.2 % Low 20.0-40.0 [facility] ([place] Comment on above: Performed By: #### C BC, ADIFF, ANEU, BMP, GFR #### [address] [address] Monocytes/100 WBC (Bld) 3.5 % Normal 2.0-13.0 [facility] ([place]) Comment on above: Performed By: #### C BC, ADIFF, ANEU, BMP, GFR #### [address] [address] Neutrophils/100 WBC (Bld) 86.3 % High 50.0-75.0 [facility] ([place] Comment on above: Performed By: #### C BC, ADIFF, ANEU, BMP, GFR #### [address] [address] .GFRon 11-14-2019 GFR Non- >60 Normal [facility] ([place] Comment on above: Result Comment: GFR Population mean for , Non- Americans Ages 20-29 = 116 mL/min/1.73 sq.m. Ages 30-39 = 107 mL/min/1.73 sq.m. Ages 40-49 = 99 mL/min/1.73 sq.m. Ages 50-59 = 93 mL/min/1.73 sq.m. Ages 60-69 = 85 mL/min/1.73 sq.m. Ages 70+ = 75 mL/min/1.73 sq.m. Chronic Kidney Disease: Less than 60 mL/min/1.73 square meters End Stage Renal Disease: Less than 15 mL/min/1.73 square meters Performed By: #### C BC, ADIFF, ANEU, BMP, GFR #### [address] [address] GFR >60 Normal [facility] ([place]) Comment on above: Result Comment: GFR Population mean for , Non- Americans Ages 20-29 = 116 mL/min/1.73 sq.m. Ages 30-39 = 107 mL/min/1.73 sq.m. Ages 40-49 = 99 mL/min/1.73 sq.m. Ages 50-59 = 93 mL/min/1.73 sq.m. Ages 60-69 = 85 mL/min/1.73 sq.m. Ages 70+ = 75 mL/min/1.73 sq.m. Chronic Kidney Disease: Less than 60 mL/min/1.73 square meters End Stage Renal Disease: Less than 15 mL/min/1.73 square meters Performed By: #### C BC, ADIFF, ANEU, BMP, GFR #### [address] [address] .NEUABSon 11-14-2019 Neutrophils (Bld) [#/Vol] 9.90 10 3/mcL High 2.25-8.10 [facility] ([place] Comment on above: Performed By: #### C BC, ADIFF, ANEU, BMP, GFR #### [address] [address] BMPon 11-14-2019 Creatinine [Mass/Vol] 1.07 mg/dL Normal 0.60-1.40 [facility] ([place]) Comment on above: Performed By: #### C BC, ADIFF, ANEU, BMP, GFR #### [address] [address] Urea nitrogen/Creatinine [Mass ratio] 22.4 ratio High 10.0-22.0 [facility] ([place] Comment on above: Performed By: #### C BC, ADIFF, ANEU, BMP, GFR #### [address] [address] Calcium [Mass/Vol] 8.8 mg/dL Normal 8.4-10.1 [facility] ([place] Comment on above: Performed By: #### C BC, ADIFF, ANEU, BMP, GFR #### [address] [address] Chloride [Moles/Vol] 108 mmol/L Normal 98-110 [facility] ([place] Comment on above: Performed By: #### C BC, ADIFF, ANEU, BMP, GFR #### [address] [address] CO2 [Moles/Vol] 28 mmol/L Normal 22-32 [facility] ([place]) Comment on above: Performed By: #### C BC, ADIFF, ANEU, BMP, GFR #### [address] [address] Electrolyte Balance 4.0 mEq/L Normal 4.0-15.0 [facility] ([place]) Comment on above: Performed By: #### C BC, ADIFF, ANEU, BMP, GFR #### [address] [address] Glucose [Mass/Vol] 219 mg/dL High 82-115 [facility] [place] Comment on above: Performed By: #### C BC, ADIFF, ANEU, BMP, GFR #### [address] [address] Potassium [Moles/Vol] 4.2 mmol/L Normal 3.5-5.0 [facility] ([place] Comment on above: Performed By: #### C BC, ADIFF, ANEU, BMP, GFR #### [address] [address] Sodium [Moles/Vol] 140 mmol/L Normal 136-145 [facility] [place] Comment on above: Performed By: #### C BC, ADIFF, ANEU, BMP, GFR #### [address] [address] Urea nitrogen [Mass/Vol] 24.0 mg/dL High 8.0-22.0 [facility] ([place] Comment on above: Performed By: #### C BC, ADIFF, ANEU, BMP, GFR #### [address] [address] CBCon 11-14-2019 Erythrocyte distribution width (RBC) [Ratio] 13.0 % Normal 11.5-15.5 [facility] ([place] Comment on above: Performed By: #### C BC, ADIFF, ANEU, BMP, GFR #### [address] [address] Hematocrit (Bld) [Volume fraction] 33.9 % Low 40.0-52.0 [facility] ([place] Comment on above: Performed By: #### C BC, ADIFF, ANEU, BMP, GFR #### [address] [address] Hemoglobin (Bld) [Mass/Vol] 11.5 G/dL Low 13.0-17.5 [facility] ([place] Comment on above: Performed By: #### C BC, ADIFF, ANEU, BMP, GFR #### [address] [address] MCH (RBC) [Entitic mass] 32.1 pg Normal 27.0-33.0 [facility] ([place] Comment on above: Performed By: #### C BC, ADIFF, ANEU, BMP, GFR #### [address] [address] MCHC (RBC) [Mass/Vol] 34.0 G/dL Normal 32.0-36.0 [facility] ([place] Comment on above: Performed By: #### C BC, ADIFF, ANEU, BMP, GFR #### [address] [address] MCV (RBC) [Entitic vol] 94.4 fL Normal 81.0-100.0 [facility] ([place]) Comment on above: Performed By: #### C BC, ADIFF, ANEU, BMP, GFR #### [address] [address] Platelet mean volume (Bld) [Entitic vol] 7.2 fL Normal 6.4-10.5 [facility] ([place] Comment on above: Performed By: #### C BC, ADIFF, ANEU, BMP, GFR #### [address] [address] Platelets (Bld) [#/Vol] 215 10 3/mcL Normal 150-450 [facility] ([place] Comment on above: Performed By: #### C BC, ADIFF, ANEU, BMP, GFR #### [address] [address] RBC (Bld) [#/Vol] 3.59 10 6/mcL Low 4.50-6.00 [facility] ([place] Comment on above: Performed By: #### C BC, ADIFF, ANEU, BMP, GFR #### [address] [address] WBC (Bld) [#/Vol] 11.50 10 3/mcL High 4.50-10.80 [facility] ([place] Comment on above: Performed By: #### C BC, ADIFF, ANEU, BMP, GFR #### [address] [address] MYCOon 11-14-2019 Mycoplasma IgM Negative Normal [facility] ([place] Comment on above: Result Comment: INTE RPRETATION OF MYCOPLASMA BY EIA (Effective 08/02/04): Negative No detectable antibodies to M. pneumoniae. Indicates absence of current or previous infection. Positive Reactive for antibodies to M. pneumoniae. Indicates a past or recent infection. Equivocal Equivocal for antibodies to M. pneumoniae. Repeat testing by an alternate method suggested. Performed By: #### C BC, ADIFF, ANEU, BMP, GFR #### [place] [address] .Auto Diffon 11-13-2019 Ammonia (P) [Mass/Vol] 0.10 10 3/mcL Normal 0.09-1.40 [facility] ([place] Comment on above: Performed By: #### C BC, ADIFF, ANEU, BMP, GFR #### [place] [address] Basophils (Bld) [#/Vol] 0.00 10 3/mcL Normal 0.00-0.27 [facility] ([place] Comment on above: Performed By: #### C BC, ADIFF, ANEU, BMP, GFR #### [address] [address] Basophils/100 WBC (Bld) 0.3 % Normal 0.0-2.5 [facility] ([place] Comment on above: Performed By: #### C BC, ADIFF, ANEU, BMP, GFR #### [address] [address] Eosinophils (Bld) [#/Vol] 0.10 10 3/mcL Normal 0.00-0.65 [facility] ([place] Comment on above: Performed By: #### C BC, ADIFF, ANEU, BMP, GFR #### [address] [address] Eosinophils/100 WBC (Bld) 0.5 % Normal 0.0-6.0 [facility] ([place] Comment on above: Performed By: #### C BC, ADIFF, ANEU, BMP, GFR #### [address] [address] Lymphocytes (Bld) [#/Vol] 1.10 10 3/mcL Normal 0.90-4.32 [facility] ([place] Comment on above: Performed By: #### C BC, ADIFF, ANEU, BMP, GFR #### [address] [address] Lymphocytes/100 WBC (Bld) 7.7 % Low 20.0-40.0 [facility] ([place] Comment on above: Performed By: #### C BC, ADIFF, ANEU, BMP, GFR #### [address] [address] Monocytes/100 WBC (Bld) 1.0 % Low 2.0-13.0 [facility] ([place] Comment on above: Performed By: #### C BC, ADIFF, ANEU, BMP, GFR #### [address] [address] Neutrophils/100 WBC (Bld) 90.5 % High 50.0-75.0 [facility] ([place] Comment on above: Performed By: #### C BC, ADIFF, ANEU, BMP, GFR #### [address] [address] Ammonia (P) [Mass/Vol] 0.80 10 3/mcL Normal 0.15-1.00 [facility] ([place] Comment on above: Performed By: #### C BC, ADIFF, ANEU, BMP, GFR #### [address] [address] Basophils (Bld) [#/Vol] 0.10 10 3/mcL Normal 0.00-0.19 [facility] ([place] Comment on above: Performed By: #### C BC, ADIFF, ANEU, BMP, GFR #### [address] [address] Basophils/100 WBC (Bld) 0.5 % Normal 0.0-2.5 [facility] ([place] Comment on above: Performed By: #### C BC, ADIFF, ANEU, BMP, GFR #### [address] [address] Eosinophils (Bld) [#/Vol] 0.40 10 3/mcL Normal 0.00-0.40 [facility] ([place] Comment on above: Performed By: #### C BC, ADIFF, ANEU, BMP, GFR #### [address] [address] Eosinophils/100 WBC (Bld) 3.4 % Normal 0.0-7.0 [facility] ([place] Comment on above: Performed By: #### C BC, ADIFF, ANEU, BMP, GFR #### [address] [address] Lymphocytes (Bld) [#/Vol] 4.00 10 3/mcL High 0.77-3.85 [facility] ([place] Comment on above: Performed By: #### C BC, ADIFF, ANEU, BMP, GFR #### [address] [address] Lymphocytes/100 WBC (Bld) 30.9 % Normal 10.0-50.0 [facility] ([place] Comment on above: Performed By: #### C BC, ADIFF, ANEU, BMP, GFR #### [address] [address] Monocytes/100 WBC (Bld) 6.4 % Normal 1.7-13.0 [facility] ([place] Comment on above: Performed By: #### C BC, ADIFF, ANEU, BMP, GFR #### [address] [address] Neutrophils/100 WBC (Bld) 58.8 % Normal 37.0-80.0 [facility] ([place] Comment on above: Performed By: #### C BC, ADIFF, ANEU, BMP, GFR #### [address] [address] .GFRon 11-13-2019 GFR >60 Normal [facility] ([place] Comment on above: Result Comment: GFR Population mean for , Non- Americans Ages 20-29 = 116 mL/min/1.73 sq.m. Ages 30-39 = 107 mL/min/1.73 sq.m. Ages 40-49 = 99 mL/min/1.73 sq.m. Ages 50-59 = 93 mL/min/1.73 sq.m. Ages 60-69 = 85 mL/min/1.73 sq.m. Ages 70+ = 75 mL/min/1.73 sq.m. Chronic Kidney Disease: Less than 60 mL/min/1.73 square meters End Stage Renal Disease: Less than 15 mL/min/1.73 square meters Performed By: #### C BC, ADIFF, ANEU, BMP, GFR #### [address] [address] GFR Non- 51 ml/min/1.73sqm Normal [facility] ([place] Comment on above: Result Comment: GFR Population mean for , Non- Americans Ages 20-29 = 116 mL/min/1.73 sq.m. Ages 30-39 = 107 mL/min/1.73 sq.m. Ages 40-49 = 99 mL/min/1.73 sq.m. Ages 50-59 = 93 mL/min/1.73 sq.m. Ages 60-69 = 85 mL/min/1.73 sq.m. Ages 70+ = 75 mL/min/1.73 sq.m. Chronic Kidney Disease: Less than 60 mL/min/1.73 square meters End Stage Renal Disease: Less than 15 mL/min/1.73 square meters Performed By: #### C BC, ADIFF, ANEU, BMP, GFR #### [address] [address] GFR Non- 39 ml/min/1.73sqm Normal [facility] ([place] Comment on above: Result Comment: GFR Population mean for , Non- Americans Ages 20-29 = 116 mL/min/1.73 sq.m. Ages 30-39 = 107 mL/min/1.73 sq.m. Ages 40-49 = 99 mL/min/1.73 sq.m. Ages 50-59 = 93 mL/min/1.73 sq.m. Ages 60-69 = 85 mL/min/1.73 sq.m. Ages 70+ = 75 mL/min/1.73 sq.m. Chronic Kidney Disease: Less than 60 mL/min/1.73 square meters End Stage Renal Disease: Less than 15 mL/min/1.73 square meters Performed By: #### C BC, ADIFF, ANEU, BMP, GFR #### [address] [address] GFR 47 ml/min/1.73sqm Normal [facility] ([place] Comment on above: Result Comment: GFR Population mean for , Non- Americans Ages 20-29 = 116 mL/min/1.73 sq.m. Ages 30-39 = 107 mL/min/1.73 sq.m. Ages 40-49 = 99 mL/min/1.73 sq.m. Ages 50-59 = 93 mL/min/1.73 sq.m. Ages 60-69 = 85 mL/min/1.73 sq.m. Ages 70+ = 75 mL/min/1.73 sq.m. Chronic Kidney Disease: Less than 60 mL/min/1.73 square meters End Stage Renal Disease: Less than 15 mL/min/1.73 square meters Performed By: #### C BC, ADIFF, ANEU, BMP, GFR #### [address] [address] .NEUABSon 11-13-2019 Neutrophils (Bld) [#/Vol] 12.70 10 3/mcL High 2.25-8.10 [facility] ([place] Comment on above: Performed By: #### C BC, ADIFF, ANEU, BMP, GFR #### [address] [address] Neutrophils (Bld) [#/Vol] 7.70 10 3/mcL High 2.85-6.16 [facility] ([place] Comment on above: Performed By: #### C BC, ADIFF, ANEU, BMP, GFR #### [address] [address] BMPon 11-13-2019 Calcium [Mass/Vol] 9.4 mg/dL Normal 8.4-10.2 [facility] [place] Comment on above: Performed By: #### C BC, ADIFF, ANEU, BMP, GFR #### [place] [address] Chloride [Moles/Vol] 104 mmol/L Normal 98-107 [facility] ([place] Comment on above: Performed By: #### C BC, ADIFF, ANEU, BMP, GFR #### [place] [address] CO2 [Moles/Vol] 31 mmol/L Normal 23-31 [facility] ([place] Comment on above: Performed By: #### C BC, ADIFF, ANEU, BMP, GFR #### [place] [address] Creatinine [Mass/Vol] 1.75 mg/dL High 0.70-1.30 [facility] ([place] Comment on above: Performed By: #### C BC, ADIFF, ANEU, BMP, GFR #### [place] [address] Electrolyte Balance 7.0 mEq/L Normal [facility] ([place] Comment on above: Performed By: #### C BC, ADIFF, ANEU, BMP, GFR #### [place] [address] Glucose [Mass/Vol] 125 mg/dL High 80-115 [facility] [place] Comment [place] above: Performed By: #### C BC, ADIFF, ANEU, BMP, GFR #### [place] [address] Potassium [Moles/Vol] 4.8 mmol/L Normal 3.5-5.1 [facility] ([place] Comment on above: Performed By: #### C BC, ADIFF, ANEU, BMP, GFR #### [address] [address] Sodium [Moles/Vol] 142 mmol/L Normal 136-145 [facility] [place] Comment on above: Performed By: #### C BC, ADIFF, ANEU, BMP, GFR #### [address] [address] Urea nitrogen [Mass/Vol] 27 mg/dL High 7-18 [facility] ([place] Comment on above: Performed By: #### C BC, ADIFF, ANEU, BMP, GFR #### [address] [address] Urea nitrogen/Creatinine [Mass ratio] 15 ratio Normal 7-27 [facility] ([place] Comment on above: Performed By: #### C BC, ADIFF, ANEU, BMP, GFR #### [address] [address] CAIONon 11-13-2019 Calcium Ionized 1.17 mmol/L Normal 1.12-1.32 [facility] ([place] Comment on above: Performed By: #### C AION, LAC, MG, PHOS, CMP, GFR, CBC, ADIFF, ANEU, TROPI, MYCO #### [address] [address] CBCon 11-13-2019 Erythrocyte distribution width (RBC) [Ratio] 13.2 % Normal 11.5-15.5 [facility] ([place] Comment on above: Performed By: #### C BC, ADIFF, ANEU, BMP, GFR #### [address] [address] Hematocrit (Bld) [Volume fraction] 39.2 % Low 40.0-52.0 [facility] ([place] Comment on above: Performed By: #### C BC, ADIFF, ANEU, BMP, GFR #### [address] [address] Hemoglobin (Bld) [Mass/Vol] 13.2 G/dL Normal 13.0-17.5 [facility] ([place] Comment on above: Performed By: #### C BC, ADIFF, ANEU, BMP, GFR #### [address] [address] MCH (RBC) [Entitic mass] 32.0 pg Normal 27.0-33.0 [facility] ([place] Comment on above: Performed By: #### C BC, ADIFF, ANEU, BMP, GFR #### [address] [address] MCHC (RBC) [Mass/Vol] 33.6 G/dL Normal 32.0-36.0 [facility] ([place] Comment on above: Performed By: #### C BC, ADIFF, ANEU, BMP, GFR #### [address] [address] MCV (RBC) [Entitic vol] 95.4 fL Normal 81.0-100.0 [facility] ([place] Comment on above: Performed By: #### C BC, ADIFF, ANEU, BMP, GFR #### [address] [address] Platelet mean volume (Bld) [Entitic vol] 7.2 fL Normal 6.4-10.5 [facility] ([place] Comment on above: Performed By: #### C BC, ADIFF, ANEU, BMP, GFR #### [address] [address] Platelets (Bld) [#/Vol] 231 10 3/mcL Normal 150-450 [facility] ([place] Comment on above: Performed By: #### C BC, ADIFF, ANEU, BMP, GFR #### [address] [address] RBC (Bld) [#/Vol] 4.11 10 6/mcL Low 4.50-6.00 [facility] ([place] Comment on above: Performed By: #### C BC, ADIFF, ANEU, BMP, GFR #### [address] [address] WBC (Bld) [#/Vol] 14.10 10 3/mcL High 4.50-10.80 [facility] ([place] Comment on above: Performed By: #### C BC, ADIFF, ANEU, BMP, GFR #### [address] [address] Erythrocyte distribution width (RBC) [Ratio] 13.1 % Normal 11.5-14.5 [facility] ([place] Comment on above: Performed By: #### C BC, ADIFF, ANEU, BMP, GFR #### [address] [address] Hematocrit (Bld) [Volume fraction] 40.1 % Low 42.0-52.0 [facility] ([place] Comment on above: Performed By: #### C BC, ADIFF, ANEU, BMP, GFR #### [address] [address] Hemoglobin (Bld) [Mass/Vol] 13.3 G/dL Low 14.0-18.0 [facility] ([place] Comment on above: Performed By: #### C BC, ADIFF, ANEU, BMP, GFR #### [address] [address] MCH (RBC) [Entitic mass] 31.8 pg High 27.0-31.2 [facility] ([place] Comment on above: Performed By: #### C BC, ADIFF, ANEU, BMP, GFR #### [address] [address] MCHC (RBC) [Mass/Vol] 33.1 G/dL Normal 31.8-35.4 [facility] ([place] Comment on above: Performed By: #### C BC, ADIFF, ANEU, BMP, GFR #### [address] [address] MCV (RBC) [Entitic vol] 96.1 fL High 80.0-94.0 [facility] ([place] Comment on above: Performed By: #### C BC, ADIFF, ANEU, BMP, GFR #### [address] [address] Platelet mean volume (Bld) [Entitic vol] 7.1 fL Low 7.4-10.4 [facility] ([place] Comment on above: Performed By: #### C BC, ADIFF, ANEU, BMP, GFR #### [address] [address] Platelets (Bld) [#/Vol] 248 10 3/mcL Normal 130-400 [facility] ([place] Comment on above: Performed By: #### C BC, ADIFF, ANEU, BMP, GFR #### [address] [address] RBC (Bld) [#/Vol] 4.17 10 6/mcL Normal 4.04-6.13 [facility] ([place] Comment on above: Performed By: #### C BC, ADIFF, ANEU, BMP, GFR #### [address] [address] WBC (Bld) [#/Vol] 13.00 10 3/mcL High 4.60-10.80 [facility] ([place] Comment on above: Performed By: #### C BC, ADIFF, ANEU, BMP, GFR #### [address] [address] CMPon 11-13-2019 Albumin/Globulin [Mass ratio] 1.1 {ratio} Normal 0.9-1.6 [facility] ([place] Comment on above: Performed By: #### C AION, LAC, MG, PHOS, CMP, GFR, CBC, ADIFF, ANEU, TROPI, MYCO #### [address] [address] ALP [Catalytic activity/Vol] 130 U/L High 38-126 [facility] ([place] Comment on above: Performed By: #### C AION, LAC, MG, PHOS, CMP, GFR, CBC, ADIFF, ANEU, TROPI, MYCO #### [address] [address] Bili Total 0.3 mg/dL Normal 0.2-1.2 [facility] ([place] Comment on above: Result Comment: Use of this assay is not recommended for patients undergoing treatment with eltrombopag due to the potential for falsely elevated results. Performed By: #### C AION, LAC, MG, PHOS, CMP, GFR, CBC, ADIFF, ANEU, TROPI, MYCO #### [address] [address] Creatinine [Mass/Vol] 1.38 mg/dL Normal 0.60-1.40 [facility] ([place] Comment on above: Performed By: #### C AION, LAC, MG, PHOS, CMP, GFR, CBC, ADIFF, ANEU, TROPI, MYCO #### [address] [address] Globulin (S) [Mass/Vol] 3.4 G/dL Normal 1.5-3.8 [facility] ([place] Comment on above: Performed By: #### C AION, LAC, MG, PHOS, CMP, GFR, CBC, ADIFF, ANEU, TROPI, MYCO #### [place] [id number] Protein [Mass/Vol] 7.1 G/dL Normal 6.0-8.5 [facility] [place] Comment [place] above: Performed By: #### C AION, LAC, MG, PHOS, CMP, GFR, CBC, ADIFF, ANEU, TROPI, MYCO #### [address] [address] Urea nitrogen/Creatinine [Mass ratio] 22.5 ratio High 10.0-22.0 [facility] ([place] Comment on above: Performed By: #### C AION, LAC, MG, PHOS, CMP, GFR, CBC, ADIFF, ANEU, TROPI, MYCO #### [address] [address] Albumin [Mass/Vol] 3.7 G/dL Normal 3.2-4.8 [facility] [place] Comment [place] above: Performed By: #### C AION, LAC, MG, PHOS, CMP, GFR, CBC, ADIFF, ANEU, TROPI, MYCO #### [place] [phone] ALT [Catalytic activity/Vol] 12 U/L Normal 12-55 [facility] ([place] Comment on above: Performed By: #### C AION, LAC, MG, PHOS, CMP, GFR, CBC, ADIFF, ANEU, TROPI, MYCO #### [address] [address] AST [Catalytic activity/Vol] 12 U/L Normal 8-34 [facility] ([place] Comment on above: Performed By: #### C AION, LAC, MG, PHOS, CMP, GFR, CBC, ADIFF, ANEU, TROPI, MYCO #### [address] [address] Calcium [Mass/Vol] 9.5 mg/dL Normal 8.4-10.1 [facility] [place] Comment [place] above: Performed By: #### C AION, LAC, MG, PHOS, CMP, GFR, CBC, ADIFF, ANEU, TROPI, MYCO #### [address] [address] Chloride [Moles/Vol] 106 mmol/L Normal 98-110 [facility] ([place] Comment on above: Performed By: #### C AION, LAC, MG, PHOS, CMP, GFR, CBC, ADIFF, ANEU, TROPI, MYCO #### [address] [address] CO2 [Moles/Vol] 25 mmol/L Normal 22-32 [facility] ([place] Comment on above: Performed By: #### C AION, LAC, MG, PHOS, CMP, GFR, CBC, ADIFF, ANEU, TROPI, MYCO #### [address] [address] Electrolyte Balance 9.0 mEq/L Normal 4.0-15.0 [facility] ([place] Comment on above: Performed By: #### C AION, LAC, MG, PHOS, CMP, GFR, CBC, ADIFF, ANEU, TROPI, MYCO #### [address] [address] Glucose [Mass/Vol] 148 mg/dL High 82-115 [facility] [place] Comment on above: Performed By: #### C AION, LAC, MG, PHOS, CMP, GFR, CBC, ADIFF, ANEU, TROPI, MYCO #### [address] [address] Potassium [Moles/Vol] 4.5 mmol/L Normal 3.5-5.0 [facility] ([place] Comment on above: Performed By: #### C AION, LAC, MG, PHOS, CMP, GFR, CBC, ADIFF, ANEU, TROPI, MYCO #### [address] [address] Sodium [Moles/Vol] 140 mmol/L Normal 136-145 [facility] [place] Comment on above: Performed By: #### C AION, LAC, MG, PHOS, CMP, GFR, CBC, ADIFF, ANEU, TROPI, MYCO #### [address] [address] Urea nitrogen [Mass/Vol] 31.0 mg/dL High 8.0-22.0 [facility] ([place] Comment on above: Performed By: #### C AION, LAC, MG, PHOS, CMP, GFR, CBC, ADIFF, ANEU, TROPI, MYCO #### [address] [address] LACon 11-13-2019 Lactic Acid Lvl 1.8 mmol/L Normal 0.2-2.0 [facility] ([place] Comment on above: Performed By: #### C BC, ADIFF, ANEU, BMP, GFR #### [address] [address] Lactic Acid Lvl 1.9 mmol/L Normal 0.2-2.0 [facility] ([place] Comment on above: Performed By: #### C BC, ADIFF, ANEU, BMP, GFR #### [address] [address] Lactic Acid Lvl 2.7 mmol/L High 0.2-2.0 [facility] ([place] Comment on above: Performed By: #### C AION, LAC, MG, PHOS, CMP, GFR, CBC, ADIFF, ANEU, TROPI, MYCO #### [address] [address] LUAon 11-13-2019 VEL . MICRO - Microbiology PROCEDURE: Legionella Urine Ag [*1] SOURCE: Urine BODY SITE: COLLECTED DATE/TIME: 11/13/2019 09:22 EDT RECEIVED DATE/TIME: 11/13/2019 09:54 EDT START DATE/TIME: 11/13/2019 09:54 EDT FREE TEXT SOURCE: FINAL REPORTS Final Report [] Verified Date/Time/Personnel: 11/13/2019 10:33 EDT Presumptive negative for L. pneumophila serogroup 1 antigen in urine, suggesting no recent or current infection. Legionnaire's disease cannot be ruled out since other serogroups and species may also cause disease. Performing Locations *1: This test was performed at: [address], [address] [place] [address] ([place] Comment on above: Performed By: #### C BC, ADIFF, ANEU, BMP, GFR #### [address] [address] MGon 11-13-2019 Magnesium [Mass/Vol] 1.8 mg/dL Normal 1.6-2.4 [facility] ([place] Comment on above: Performed By: #### C AION, LAC, MG, PHOS, CMP, GFR, CBC, ADIFF, ANEU, TROPI, MYCO #### [address] [address] PHOSon 11-13-2019 Phosphate [Mass/Vol] 2.8 mg/dL Normal 2.5-4.5 [facility] ([place] Comment on above: Performed By: #### C AION, LAC, MG, PHOS, CMP, GFR, CBC, ADIFF, ANEU, TROPI, MYCO #### [address] [address] RESPIDon 11-13-2019 Adenovirus Not Detected Normal Not Detected [facility] ([place] Comment on above: Performed By: #### C BC, ADIFF, ANEU, BMP, GFR #### [address] [address] Bordetella Parapertussis Not Detected Normal Not Detected [facility] ([place] Comment on above: Performed By: #### C BC, ADIFF, ANEU, BMP, GFR #### [address] [address] Bordetella Pertussis Not Detected Normal Not Detected [facility] ([place]) Comment on above: Performed By: #### C BC, ADIFF, ANEU, BMP, GFR #### [address] [address] Chlamydophila pneumoniae Not Detected Normal Not Detected [facility] ([place] Comment on above: Performed By: #### C BC, ADIFF, ANEU, BMP, GFR #### [address] [address] Coronavirus 229E (Not COVID-19) Not Detected Normal Not Detected [facility] ([place] Comment on above: Performed By: #### C BC, ADIFF, ANEU, BMP, GFR #### [address] [address] Coronavirus HKU1 (Not COVID-19) Not Detected Normal Not Detected [facility] ([place] Comment on above: Performed By: #### C BC, ADIFF, ANEU, BMP, GFR #### [address] [address] Coronavirus NL63 (Not COVID-19) Not Detected Normal Not Detected [facility] ([place] Comment on above: Performed By: #### C BC, ADIFF, ANEU, BMP, GFR #### [address] [address] Coronavirus OC43 (Not COVID-19) Not Detected Normal Not Detected [facility] ([place] Comment on above: Performed By: #### C BC, ADIFF, ANEU, BMP, GFR #### [address] [address] Human Metapneumovirus Not Detected Normal Not Detected [facility] ([place] Comment on above: Performed By: #### C BC, ADIFF, ANEU, BMP, GFR #### [address] [address] Influenza A Not Detected Normal Not Detected [facility] ([place] Comment on above: Performed By: #### C BC, ADIFF, ANEU, BMP, GFR #### [address] [address] Influenza B Not Detected Normal Not Detected [facility] ([place] Comment on above: Performed By: #### C BC, ADIFF, ANEU, BMP, GFR #### [address] [address] Mycoplasma pneumoniae Not Detected Normal Not Detected [facility] ([place] Comment on above: Performed By: #### C BC, ADIFF, ANEU, BMP, GFR #### [place] [id number] Parainfluenza 1 Not Detected Normal Not Detected [facility] ([place] Comment on above: Performed By: #### C BC, ADIFF, ANEU, BMP, GFR #### [address] [address] Parainfluenza 2 Not Detected Normal Not Detected [facility] ([place] Comment on above: Performed By: #### C BC, ADIFF, ANEU, BMP, GFR #### [address] [address] Parainfluenza 3 Not Detected Normal Not Detected [facility] ([place] Comment on above: Performed By: #### C BC, ADIFF, ANEU, BMP, GFR #### [address] [address] Parainfluenza 4 Not Detected Normal Not Detected [facility] ([place] Comment on above: Performed By: #### C BC, ADIFF, ANEU, BMP, GFR #### [address] [address] Respiratory Syncytial Virus Not Detected Normal Not Detected [facility] ([place] Comment on above: Performed By: #### C BC, ADIFF, ANEU, BMP, GFR #### [address] [address] Rhinovirus/Enterovirus Not Detected Normal Not Detecte d [facility] ([place] Comment on above: Performed By: #### C BC, ADIFF, ANEU, BMP, GFR #### [address] [address] SPAGon 11-13-2019 SPAG . MICRO - Microbiology PROCEDURE: Streptococcus Pneumoniae Urine Antig [^1 *1] SOURCE: Urine, Clean Catch BODY SITE: COLLECTED DATE/TIME: 11/13/2019 09:22 EDT RECEIVED DATE/TIME: 11/13/2019 09:54 EDT START DATE/TIME: 11/13/2019 09:54 EDT FREE TEXT SOURCE: FINAL REPORTS Final Report [] Verified Date/Time/Personnel: 11/13/2019 10:33 EDT Presumptive negative for pneumococcal pneumonia, suggesting no current or recent pneumococcal infection. Infection due to Strep pneumoniae cannot be ruled out since the antigen present in the sample may be below the detection limit of the test. Interpretive Data ^1: Streptococcus Pneumoniae Urine Antig This test has not been evaluated on patients taking antibiotics for greater than 24 hours or on patients who have recently completed an antibiotic regimen. The accuracy of this test has not been proven in young children. Performing Locations *1: This test was performed at: [facility], [address] [place] [address], [address] [place] [address] ([place] Comment on above: Performed By: #### C BC, ADIFF, ANEU, BMP, GFR #### [address] [address] TROPIon 11-13-2019 Troponin I.cardiac [Mass/Vol] ng/mL Normal 0.000-0.040 [facility] ([place] Comment on above: Result Comment: Trop onin I reference ranges (04/04/14): 0.00-0.040 ng/mL Negative and non-diagnostic. >0.040 ng/mL Consistent with cardiac damage, increased clinical risk and possibility of myocardial infarction. Serial measurements, a rise & fall in test results, clinical history, appropriate symptoms and/or ECG changes may help assess possibility of CO. *Other non-acute coronary syndrome conditions such as CHF, myocarditis, pulmonary emboli, sepsis and cardiac surgery could result in myocardial damage and increased troponin levels. Performed By: #### C BC, ADIFF, ANEU, BMP, GFR #### [address] [address] UAon 11-13-2019 Color (U) Yellow Normal [facility]ly [facility] ([place] Comment on above: Performed By: #### C BC, ADIFF, ANEU, BMP, GFR #### [address] [address] Glucose (U) [Mass/Vol] Negative Normal Negative [facility] ([place] Comment on above: Performed By: #### C BC, ADIFF, ANEU, BMP, GFR #### [address] [address] Ketones Ql (U) Negative Normal Neg-Trace [facility]ly [facility] ([place] Comment on above: Performed By: #### C BC, ADIFF, ANEU, BMP, GFR #### [address] [address] UA Appear Clear Normal Clear [facility] ([place] Comment on above: Performed By: #### C BC, ADIFF, ANEU, BMP, GFR #### [address] [address] UA Blood Negative Normal Neg-Trace [facility]ly [facility] ([place] Comment on above: Performed By: #### C BC, ADIFF, ANEU, BMP, GFR #### [address] [address] UA Leuk Est Negative Normal Negative [facility] ([place] Comment on above: Performed By: #### C BC, ADIFF, ANEU, BMP, GFR #### [address] [address] UA Nitrite Negative Normal Negative [facility] ([place] Comment on above: Performed By: #### C BC, ADIFF, ANEU, BMP, GFR #### [address] [address] UA pH 5.0 Normal 5.0 - 8.0 [facility]ly [facility] ([place] Comment on above: Performed By: #### C BC, ADIFF, ANEU, BMP, GFR #### [address] [address] UA Protein Negative Normal Negative [facility] ([place] Comment on above: Performed By: #### C BC, ADIFF, ANEU, BMP, GFR #### [address] [address] UA Spec Grav 1.015 Normal 1.006-1.029 [facility] ([place] Comment on above: Performed By: #### C BC, ADIFF, ANEU, BMP, GFR #### [place] [id number] UA Specimen Type Clean Catch Normal [facility] ([place] Comment on above: Performed By: #### C BC, ADIFF, ANEU, BMP, GFR #### [place] [id number] UA Urobilinogen 0.2 E.U./dL Normal 0.2-1.0 [facility] ([place] Comment on above: Performed By: #### C BC, ADIFF, ANEU, BMP, GFR #### [place] [id number] Urobilinogen Qn (U) Negative Normal Neg-Trace [facility] ([place] Comment on above: Performed By: #### C BC, ADIFF, ANEU, BMP, GFR #### [address] [address] XR CHEST 1 VIEWon 11-13-2019 XR CHEST 1 VIEW ORIGINAL XR CHEST 1 VIEW PORTABLE AP UPRIGHT DATE AND TIME: 11/13/2019 5:40 AM CLINICAL STATEMENT: SOB, evaluate for Pneumonia COMPARISON: None FINDINGS: Sternotomy wires and mediastinal vascular clips are present. The cardiomediastinal contours are normal. Lungs are clear and normally expanded. There is no vascular congestion, pleural effusion, or pneumothorax. Osseous structures appear intact. IMPRESSION: No acute infiltrate. Interpreted By: Cole Patrick MD Preliminary Report By: Cole Patrick MD Electronically Signed By: Cole Patrick MD Dictated Date: 11/13/2019 5:53:41 AM Prelim Date: 11/13/2019 5:53:41 AM Sign Date: 11/13/2019 5:54:44 AM Ordering Provider:Wiley Guzman [facility] ([place] No Panel Information [facility] Vital Signs Date Time Vital Sign Value Performing Clinician Facility 01-04-2025 16:15-0400 Body temperature 98.5 [degF] Dr. Royce Carroll MD Work Phone: 0(424)896-894911 [place] [address] 01-04-2025 16:15-0400 Diastolic blood pressure 58 mm[Hg] Dr. Royce Carroll MD Work Phone: 6(029)832-290511 [place] [address] 01-04-2025 16:15-0400 Heart rate 103 /min Dr. Royce Carroll MD Work Phone: 9(046)437-156111 [place] [address] 01-04-2025 16:15-0400 Respiratory rate 28 /min Dr. Royce Carroll MD Work Phone: 1(495)476-991111 [place] [address] 01-04-2025 16:15-0400 SaO2% (BldA) [Mass fraction] 98 % Dr. Royce Carroll MD Work Phone: 0(453)849-333111 [place] [address] 01-04-2025 16:15-0400 Systolic blood pressure 126 mm[Hg] Dr. Royce Carroll MD Work Phone: 6(645)408-314411 [place] [address] 01-04-2025 15:23-0400 Inhaled oxygen flow rate 5 L/min Dr. Royce Carroll MD Work Phone: 2(193)190-395911 [place] [address] 01-04-2025 12:08-0400 Body height 185.[address] Royce Carroll MD Work Phone: 9(415)241-110711 [place] [address] 12:08-0400 Body mass index (BMI) [Ratio] 23.6 kg/m2 Dr. Royce Carroll MD Work Phone: 0(807)135-164411 [place] [address] 01-04-2025 12:08-0400 Body weight 81.[address] Royce Carroll MD Work Phone: 9(045)319-295411 [place] [address] 11-12-2024 16:01-0400 Inhaled oxygen flow rate 3 L/min Dr. Royce Carroll MD Work Phone: 1(086)096-709811 [place] [address] 11-12-2024 15:59-0400 Body temperature 98.4 [degF] Dr. Royce Carroll MD Work Phone: 4(761)483-464411 [place] [address] 11-12-2024 15:59-0400 Diastolic blood pressure 65 mm[Hg] Dr. Royce Carroll MD Work Phone: 7(800)515-192911 [place] [address] 11-12-2024 15:59-0400 Heart rate 82 /min Dr. Royce Carroll MD Work Phone: 7(664)003-801011 [place] [address] 11-12-2024 15:59-0400 Respiratory rate 24 /min Dr. Royce Carroll MD Work Phone: 0(562)739-086011 [place] [address] 11-12-2024 15:59-0400 SaO2% (BldA) [Mass fraction] 94 % Dr. Royce Carroll MD Work Phone: 7(556)856-859211 [place] [address] 11-12-2024 15:59-0400 Systolic blood pressure 137 mm[Hg] Dr. Royce Carroll MD Work Phone: 3(941)229-248511 [place] [address] 11-12-2024 03:34-0400 Body mass index (BMI) [Ratio] 21.6 kg/m2 Dr. Royce Carroll MD Work Phone: 3(153)185-295711 [place] [address] 11-12-2024 03:34-0400 Body weight 74.[address] Royce Carroll MD Work Phone: 3(300)514-352711 [place] [address] 11-11-2024 14:04-0400 Body height 185.[address] Royce Carroll MD Work Phone: 6(190)046-443711 [place] [address] 11-04-2024 22:00-0400 Inhaled oxygen concentration 37 % Dr. Royce Carroll MD Work Phone: 2(977)591-322611 [place] [address] 11-03-2024 21:23-0400 Body temperature 98.9 [degF] Dr. Royce Carroll MD Work Phone: 9(599)828-588796 [place] [address] 11-03-2024 21:23-0400 Diastolic blood pressure 80 mm[Hg] Dr. Royce Carroll MD Work Phone: [facility] 11-03-2024 21:23-0400 Heart rate 100 /min Dr. Royce Carroll MD Work Phone: 3(140)774-142711 [place] [address] 11-03-2024 21:23-0400 Respiratory rate 28 /min Dr. Royce Carroll MD Work Phone: 1(600)591-805911 [place] [address] 11-03-2024 21:23-0400 SaO2% (BldA) [Mass fraction] 95 % Dr. Royce Carroll MD Work Phone: 6(880)273-810311 [place] [address] 11-03-2024 21:23-0400 Systolic blood pressure 159 mm[Hg] Dr. Royce Carroll MD Work Phone: 8(474)565-547111 [place] [address] 11-03-2024 21:00-0400 Inhaled oxygen flow rate 5 L/min Dr. Royce Carroll MD Work Phone: 8(636)962-514111 [place] [address] 11-03-2024 17:31-0400 Body height 185.[address] Royce Carroll MD Work Phone: 0(533)136-124711 [place] [address] 11-03-2024 17:31-0400 Body mass index (BMI) [Ratio] 23.7 kg/m2 Dr. Royce Carroll MD Work Phone: 5(873)119-478496 [place] [address] 11-03-2024 17:31-0400 Body weight 81.[address] Royce Carroll MD Work Phone: [facility] 09-27-2024 14:02-0500 Diastolic blood pressure 54 mm[Hg] Royce Carroll MD Work Phone: [facility] 09-27-2024 14:02-0500 Systolic blood pressure 108 mm[Hg] Royce Carroll MD Work Phone: [facility] 09-27-2024 13:43-0500 Body temperature 97.9 [degF] Royce Carroll MD Work Phone: [facility] 09-27-2024 13:43-0500 Heart rate 76 /min Royce Carroll MD Work Phone: [facility] 09-27-2024 13:43-0500 Respiratory rate 28 /min Royce Carroll MD Work Phone: [facility] 07-01-2024 13:51-0500 Body height 184.2 cm Pulm Wstr Work Phone: [facility] 07-01-2024 13:51-0500 Body mass index (BMI) [Ratio] 23.68 kg/m2 Pulm Wstr Work Phone: [facility] 07-01-2024 13:51-0500 Body weight 80.29 kg Pulm Wstr Work Phone: [facility] 07-01-2024 13:51-0500 Heart rate 70 /min Pulm Wstr Work Phone: [facility] 07-01-2024 13:51-0500 Respiratory rate 14 /min Pulm Wstr Work Phone: [facility] 07-01-2024 13:51-0500 SaO2% (BldA) [Mass fraction] 93 % Pulm Wstr Work Phone: [facility] 06-23-2024 15:28-0500 Body mass index (BMI) [Ratio] 23.63 kg/m2 Royce Carroll MD Work Phone: [facility] 06-23-2024 15:28-0500 Body temperature 97.5 [degF] Royce Carroll MD Work Phone: [facility] 06-23-2024 15:28-0500 Body weight 81.8 kg Royce Carroll MD Work Phone: [facility] 06-23-2024 15:28-0500 Diastolic blood pressure 60 mm[Hg] Royce Carroll MD Work Phone: [facility] 06-23-2024 15:28-0500 Heart rate 92 /min Royce Carroll MD Work Phone: [facility] 06-23-2024 15:28-0500 SaO2% (BldA) [Mass fraction] 93 % Royce Carroll MD Work Phone: [facility] 06-23-2024 15:28-0500 Systolic blood pressure 134 mm[Hg] Royce Carroll MD Work Phone: [facility] 03-22-2024 14:12-0400 Diastolic blood pressure 74 mm[Hg] Gabby Cannon ORTHOTIC TECHNICIAN.WINERY WORKER Work Phone: [facility] 03-22-2024 14:12-0400 Systolic blood pressure 122 mm[Hg] Gabby Cannon ORTHOTIC TECHNICIAN.WINERY WORKER Work Phone: [facility] 03-22-2024 13:47-0400 Body mass index (BMI) [Ratio] 23.83 kg/m2 Gabby BolañosSanto ORTHOTIC TECHNICIAN.WINERY WORKER Work Phone: [facility] 03-22-2024 13:47-0400 Body temperature 97.59 [degF] Gabby Cannon ORTHOTIC TECHNICIAN.WINERY WORKER Work Phone: [facility] 03-22-2024 13:47-0400 Body weight 82.5 kg Gabby Cannon ORTHOTIC TECHNICIAN.WINERY WORKER Work Phone: [facility] 03-22-2024 13:47-0400 Heart rate 94 /min Gabby Cannon ORTHOTIC TECHNICIAN.WINERY WORKER Work Phone: [facility] 03-22-2024 13:47-0400 Respiratory rate 24 /min Gabby Cannon ORTHOTIC TECHNICIAN.WINERY WORKER Work Phone: [facility] 03-22-2024 13:47-0400 SaO2% (BldA) [Mass fraction] 93 % Gabby Cannon ORTHOTIC TECHNICIAN.WINERY WORKER Work Phone: [facility] 01-19-2024 16:32-0400 Body mass index (BMI) [Ratio] 23.23 kg/m2 Carmen Virgen ORTHOTIC TECHNICIAN.WINERY WORKER Work Phone: [facility] 01-19-2024 16:32-0400 Body temperature 98.49 [degF] Carmen Virgen ORTHOTIC TECHNICIAN.WINERY WORKER Work Phone: [facility] 01-19-2024 16:32-0400 Body weight 80.4 kg Carmen Virgen ORTHOTIC TECHNICIAN.WINERY WORKER Work Phone: [facility] 01-19-2024 16:32-0400 Diastolic blood pressure 60 mm[Hg] Carmen Virgen ORTHOTIC TECHNICIAN.WINERY WORKER Work Phone: [facility] 01-19-2024 16:32-0400 Heart rate 62 /min Carmen Virgen ORTHOTIC TECHNICIAN.WINERY WORKER Work Phone: [facility] 01-19-2024 16:32-0400 Respiratory rate 16 /min Carmen Virgen ORTHOTIC TECHNICIAN.WINERY WORKER Work Phone: [facility] 01-19-2024 16:32-0400 SaO2% (BldA) [Mass fraction] 96 % Carmen Virgen ORTHOTIC TECHNICIAN.WINERY WORKER Work Phone: [facility] 01-19-2024 16:32-0400 Systolic blood pressure 142 mm[Hg] Carmen Virgen ORTHOTIC TECHNICIAN.WINERY WORKER Work Phone: [facility] 12-18-2023 14:54-0400 Body mass index (BMI) [Ratio] 23.19 kg/m2 Royce Carroll MD Work Phone: [facility] 12-18-2023 14:54-0400 Body temperature 97.2 [degF] Royce Carroll MD Work Phone: [facility] 12-18-2023 14:54-0400 Body weight 80.29 kg Royce Carroll MD Work Phone: [facility] 12-18-2023 14:54-0400 Diastolic blood pressure 68 mm[Hg] Royce Carroll MD Work Phone: [facility] 12-18-2023 14:54-0400 Heart rate 100 /min Royce Carroll MD Work Phone: [facility] 12-18-2023 14:54-0400 Respiratory rate 20 /min Royce Carroll MD Work Phone: [facility] 12-18-2023 14:54-0400 SaO2% (BldA) [Mass fraction] 97 % Royce Carroll MD Work Phone: [facility] 12-18-2023 14:54-0400 Systolic blood pressure 110 mm[Hg] Royce Carroll MD Work Phone: [facility] 12-02-2023 15:02-0400 Body mass index (BMI) [Ratio] 23.72 kg/m2 Clark Rothman MD Work Phone: [facility] 12-02-2023 15:02-0400 Body weight 82.1 kg Clark Rothman MD Work Phone: [facility] 12-02-2023 15:02-0400 Diastolic blood pressure 76 mm[Hg] Clark Rothman MD Work Phone: [facility] 12-02-2023 15:02-0400 Heart rate 71 /min Clark Rothman MD Work Phone: [facility] 12-02-2023 15:02-0400 Respiratory rate 19 /min Clark Rothman MD Work Phone: [facility] 12-02-2023 15:02-0400 SaO2% (BldA) [Mass fraction] 95 % Clark Rothman MD Work Phone: [facility] Comment on above: 5L via [employer] 12-02-2023 15:02-0400 Systolic blood pressure 132 mm[Hg] Clark Rothman MD Work Phone: [facility] 09-19-2023 14:23-0500 Body height 186.1 cm Royce Carroll MD Work Phone: [facility] 09-19-2023 14:23-0500 Body temperature 97.9 [degF] Royce Carroll MD Work Phone: [facility] 09-19-2023 14:23-0500 Body weight 82.56 kg Royce Carroll MD Work Phone: [facility] 09-19-2023 14:23-0500 Diastolic blood pressure 70 mm[Hg] Royce Carroll MD Work Phone: [facility] 09-19-2023 14:23-0500 Heart rate 78 /min Royce Carroll MD Work Phone: [facility] 09-19-2023 14:23-0500 Respiratory rate 18 /min Royce Carroll MD Work Phone: [facility] 09-19-2023 14:23-0500 SaO2% (BldA) [Mass fraction] 92 % Royce Carroll MD Work Phone: [facility] 09-19-2023 14:23-0500 Systolic blood pressure 128 mm[Hg] Royce Carroll MD Work Phone: [facility] 06-13-2023 13:12-0500 Diastolic blood pressure 66 mm[Hg] Gabby Older ORTHOTIC TECHNICIAN.WINERY WORKER Work Phone: [facility] 06-13-2023 13:12-0500 Systolic blood pressure 132 mm[Hg] Gabby Older ORTHOTIC TECHNICIAN.WINERY WORKER Work Phone: [facility] 06-13-2023 12:51-0500 Body height 186.7 cm Gabby Older ORTHOTIC TECHNICIAN.WINERY WORKER Work Phone: [facility] 06-13-2023 12:51-0500 Body weight 83.46 kg Gabby Older ORTHOTIC TECHNICIAN.WINERY WORKER Work Phone: [facility] 06-13-2023 12:51-0500 Heart rate 74 /min Gabby Older ORTHOTIC TECHNICIAN.WINERY WORKER Work Phone: [facility] 06-13-2023 12:51-0500 Respiratory rate 20 /min Gabby Older ORTHOTIC TECHNICIAN.WINERY WORKER Work Phone: [facility] 06-13-2023 12:51-0500 SaO2% (BldA) [Mass fraction] 93 % Gabby Older ORTHOTIC TECHNICIAN.WINERY WORKER Work Phone: [facility] 05-27-2023 14:50-0400 Body weight 82.19 kg Alma Kayer PA-C Work Phone: [facility] 05-27-2023 14:50-0400 Diastolic blood pressure 64 mm[Hg] Alma Queener PA-C Work Phone: [facility] 05-27-2023 14:50-0400 Heart rate 60 /min Alma Queener PA-C Work Phone: [facility] 05-27-2023 14:50-0400 Respiratory rate 16 /min Alma Queener PA-C Work Phone: [facility] 05-27-2023 14:50-0400 SaO2% (BldA) [Mass fraction] 97 % Alma Queener PA-C Work Phone: [facility] 05-27-2023 14:50-0400 Systolic blood pressure 165 mm[Hg] Alma Queener PA-C Work Phone: [facility] 05-01-2023 13:42-0400 Diastolic blood pressure 60 mm[Hg] Gabby Older ORTHOTIC TECHNICIAN.WINERY WORKER Work Phone: [facility] 05-01-2023 13:42-0400 Systolic blood pressure 136 mm[Hg] Gabby Older ORTHOTIC TECHNICIAN.WINERY WORKER Work Phone: [facility] 05-01-2023 13:17-0400 Body height 184.2 cm Gabby Older ORTHOTIC TECHNICIAN.WINERY WORKER Work Phone: [facility] 05-01-2023 13:17-0400 Body weight 82.96 kg Gabby Older ORTHOTIC TECHNICIAN.WINERY WORKER Work Phone: [facility] 05-01-2023 13:17-0400 Heart rate 74 /min Gabby Older ORTHOTIC TECHNICIAN.WINERY WORKER Work Phone: [facility] 05-01-2023 13:17-0400 SaO2% (BldA) [Mass fraction] 90 % Gabby Jono ORTHOTIC TECHNICIAN.WINERY WORKER Work Phone: [facility] 02-25-2023 12:49-0400 Body weight 81.65 kg Clark Rothman MD Work Phone: [facility] 02-25-2023 12:49-0400 Diastolic blood pressure 80 mm[Hg] Clark Rothman MD Work Phone: [facility] 02-25-2023 12:49-0400 Heart rate 64 /min Clark Rothman MD Work Phone: [facility] 02-25-2023 12:49-0400 Respiratory rate 15 /min Clark Rothman MD Work Phone: [facility] 02-25-2023 12:49-0400 SaO2% (BldA) [Mass fraction] 90 % Clark Rothman MD Work Phone: [facility] 02-25-2023 12:49-0400 Systolic blood pressure 120 mm[Hg] Clark Rothman MD Work Phone: [facility] 02-13-2023 16:28-0400 Body weight 80.47 kg Jocelyne Dalyrichausen ORTHOTIC TECHNICIAN.WINERY WORKER Work Phone: [facility] 02-13-2023 16:28-0400 Diastolic blood pressure 64 mm[Hg] Jocelyne Dahlhausen ORTHOTIC TECHNICIAN.WINERY WORKER Work Phone: [facility] 02-13-2023 16:28-0400 Heart rate 80 /min Jocelyne Dahlhausen ORTHOTIC TECHNICIAN.WINERY WORKER Work Phone: [facility] 02-13-2023 16:28-0400 Respiratory rate 20 /min Jocelyne Dahlhausen ORTHOTIC TECHNICIAN.WINERY WORKER Work Phone: [facility] 02-13-2023 16:28-0400 SaO2% (BldA) [Mass fraction] 99 % Jocelyne Dahlhausen ORTHOTIC TECHNICIAN.WINERY WORKER Work Phone: [facility] 02-13-2023 16:28-0400 Systolic blood pressure 118 mm[Hg] Jocelyne Mcknight ORTHOTIC TECHNICIAN.WINERY WORKER Work Phone: [facility] 01-15-2023 15:56-0400 Body weight 80.2 kg Royce Carroll MD Work Phone: [facility] 01-15-2023 15:56-0400 Diastolic blood pressure 82 mm[Hg] Royce Carroll MD Work Phone: [facility] 01-15-2023 15:56-0400 Heart rate 80 /min Royce Carroll MD Work Phone: [facility] 01-15-2023 15:56-0400 SaO2% (BldA) [Mass fraction] 89 % Royce Carroll MD Work Phone: [facility] 01-15-2023 15:56-0400 Systolic blood pressure 124 mm[Hg] Royce Carroll MD Work Phone: [facility] 12-30-2022 12:38-0400 Body weight 80.29 kg Gabby Older ORTHOTIC TECHNICIAN.WINERY WORKER Work Phone: [facility] 12-30-2022 12:38-0400 Diastolic blood pressure 64 mm[Hg] Gabby Older ORTHOTIC TECHNICIAN.WINERY WORKER Work Phone: [facility] 12-30-2022 12:38-0400 Heart rate 83 /min Gabby Older ORTHOTIC TECHNICIAN.WINERY WORKER Work Phone: [facility] 12-30-2022 12:38-0400 Respiratory rate 18 /min Gabby Older ORTHOTIC TECHNICIAN.WINERY WORKER Work Phone: [facility] 12-30-2022 12:38-0400 SaO2% (BldA) [Mass fraction] 88 % Gabby Older ORTHOTIC TECHNICIAN.WINERY WORKER Work Phone: [facility] 12-30-2022 12:38-0400 Systolic blood pressure 128 mm[Hg] Gabby Older ORTHOTIC TECHNICIAN.WINERY WORKER Work Phone: [facility] 12-25-2022 10:19-0400 Body height 184.2 cm Pulm Wstr Work Phone: [facility] 12-25-2022 10:190400 Body weight 80.74 kg Pulm Wstr Work Phone: [facility] 12-25-2022 10:19-0400 Heart rate 80 /min Pulm Wstr Work Phone: [facility] 12-25-2022 10:19-0400 Respiratory rate 14 /min Pulm Wstr Work Phone: [facility] 12-25-2022 10:19-0400 SaO2% (BldA) [Mass fraction] 93 % Pulm Wstr Work Phone: [facility] 10-29-2022 13:37-0400 Body weight 80.74 kg Gianni Cliffwood ORTHOTIC TECHNICIAN.WINERY WORKER Work Phone: [facility] 10-29-2022 13:37-0400 Diastolic blood pressure 65 mm[Hg] Gianni Cliffwood ORTHOTIC TECHNICIAN.WINERY WORKER Work Phone: [facility] 10-29-2022 13:37-0400 Heart rate 77 /min Gianni Cliffwood ORTHOTIC TECHNICIAN.WINERY WORKER Work Phone: [facility] 10-29-2022 13:37-0400 SaO2% (BldA) [Mass fraction] 91 % Gianni Cliffwood ORTHOTIC TECHNICIAN.WINERY WORKER Work Phone: [facility] 10-29-2022 13:37-0400 Systolic blood pressure 146 mm[Hg] Gianni Cliffwood ORTHOTIC TECHNICIAN.WINERY WORKER Work Phone: [facility] 07-04-2022 13:08-0500 Body temperature 97.81 [degF] Royce Carroll MD Work Phone: [facility] 07-04-2022 13:08-0500 Body weight 81.24 kg Royce Carroll MD Work Phone: [facility] 07-04-2022 13:08-0500 Diastolic blood pressure 72 mm[Hg] Royce Carroll MD Work Phone: [facility] 07-04-2022 13:08-0500 Heart rate 76 /min Royce Carroll MD Work Phone: [facility] 07-04-2022 13:08-0500 Respiratory rate 16 /min Royce Carroll MD Work Phone: [facility] 07-04-2022 13:08-0500 SaO2% (BldA) [Mass fraction] 95 % Royce Carroll MD Work Phone: [facility] 07-04-2022 13:08-0500 Systolic blood pressure 128 mm[Hg] Royce Carroll MD Work Phone: [facility] 02-21-2022 12:55-0400 Body temperature 97 [degF] Jocelyne Dahlhausen ORTHOTIC TECHNICIAN.WINERY WORKER Work Phone: [facility] 02-21-2022 12:55-0400 Body weight 83.73 kg Jocelyne Dahlhausen ORTHOTIC TECHNICIAN.WINERY WORKER Work Phone: [facility] 02-21-2022 12:55-0400 Diastolic blood pressure 68 mm[Hg] Jocelyne Dahlhausen ORTHOTIC TECHNICIAN.WINERY WORKER Work Phone: [facility] 02-21-2022 12:55-0400 Heart rate 70 /min Jocelyne Dahlhausen ORTHOTIC TECHNICIAN.WINERY WORKER Work Phone: [facility] 02-21-2022 12:55-0400 Respiratory rate 20 /min Jocelyne Dahlhausen ORTHOTIC TECHNICIAN.WINERY WORKER Work Phone: [facility] 02-21-2022 12:55-0400 SaO2% (BldA) [Mass fraction] 92 % Jocelyne Dahlhausen ORTHOTIC TECHNICIAN.WINERY WORKER Work Phone: [facility] 02-21-2022 12:55-0400 Systolic blood pressure 144 mm[Hg] Jocelyne Dahlhausen ORTHOTIC TECHNICIAN.WINERY WORKER Work Phone: [facility] 06-20-2022 12:53-0400 Body temperature 96.4 [degF] Royce Carroll MD Work Phone: [facility] 01-14-2022 12:53-0400 Body weight 84.19 kg Royce Carroll MD Work Phone: [facility] 01-14-2022 12:53-0400 Diastolic blood pressure 52 mm[Hg] Royce Carroll MD Work Phone: [facility] 01-14-2022 12:53-0400 Heart rate 68 /min Royce Carroll MD Work Phone: [facility] 01-14-2022 12:53-0400 Respiratory rate 24 /min Royce Carroll MD Work Phone: [facility] 01-14-2022 12:53-0400 Systolic blood pressure 118 mm[Hg] Royce Carroll MD Work Phone: [facility] 11-13-2021 09:00-0400 Diastolic blood pressure 72 mm[Hg] Carmen O'Rehan PT Work Phone: [facility] 11-13-2021 09:00-0400 Heart rate 75 /min Carmen O'Rehan PT Work Phone: [facility] 11-13-2021 09:00-0400 SaO2% (BldA) [Mass fraction] 95 % Carmen O'Rehan PT Work Phone: [facility] 11-13-2021 09:00-0400 Systolic blood pressure 152 mm[Hg] Carmen O'Rehan PT Work Phone: [facility] 10-30-2021 08:41-0400 Body height 185 cm Sharon Limon DO Work Phone: [facility] 10-30-2021 08:41-0400 Body weight 86.18 kg Shaorn Limon DO Work Phone: [facility] 10-30-2021 08:41-0400 Diastolic blood pressure 64 mm[Hg] Sharon Limon DO Work Phone: [facility] 10-30-2021 08:41-0400 Heart rate 76 /min Sharon Limon DO Work Phone: [facility] 10-30-2021 08:41-0400 SaO2% (BldA) [Mass fraction] 94 % Sharon Limon DO Work Phone: [facility] 10-30-2021 08:41-0400 Systolic blood pressure 140 mm[Hg] Sharon Limon DO Work Phone: [facility] Encounters Encounter Date Encounter Type Care Provider Facility Start: 01-04-2025 Evaluation and manag ement of inpatient Dr. Dalton Govea DO -[facility] Work Phone: Start: 12-08-2024 End: 12-08-2024 Patient Outreach Ashish Saha RN Sports Physician Management Comment on above: Weekly phone contact (Recurring) for Transitional Care Management Start: 12-03-2024 End: 12-03-2024 Patient encounter procedure Olu Miller Work Phone: Podiatry Comment on above: Onychomycosis (Prima ry Dx); Pain in toe of left foot; Pain in toe of right foot; Diabetic polyneuropathy associated with type 2 diabetes mellitus (HCC); Hyperkeratosis; Hammer toe, unspecified laterality Start: 12-03-2024 End: 12-03-2024 ambulatory ROYCE CARROLL Facility:[facility] Start: 11-24-2024 End: 11-24-2024 Patient Outreach Ashish Saha RN Sports Physician Management Comment on above: Weekly phone contact (Recurring) for Transitional Care Management Start: 11-17-2024 End: 11-17-2024 ambulatory ROYCE CARROLL Facility:[facility] Start: 11-13-2024 End: 11-15-2024 ambulatory Royce Carroll MD Work Phone: [facility] Start: 11-13-2024 End: 11-15-2024 Patient encounter procedure Royce Carroll MD Work Phone: [facility] Comment on above: Patient Update (oxyg en and pulse ox readings. ); Medication Problem; Consult (to [facility]) Start: 11-12-2024 Non-patient / Non-visit Dr. Maria Ines Pelayo MD [facility] Work Phone: Start: 11-11-2024 Non-patient / Non-visit Dr. Maria Ines Pelayo MD [facility] Work Phone: Start: 11-10-2024 End: 11-10-2024 Telephone encounter Royce Carroll MD Work Phone: Internal Medicine [place] Comment on above: Orders Start: 11-10-2024 Non-patient / Non-visit Dr. Maria Ines Pelayo MD [facility] Work Phone: Start: 11-10-2024 Non-patient / Non-visit Dr. Kashif Adkins own [facility] Start: 11-09-2024 Non-patient / Non-visit Dr. Kashif Adkins own [facility] Start: 11-09-2024 Non-patient / Non-visit Dr. Noris Horne MD -[facility] Start: 11-08-2024 Non-patient / Non-visit Dr. Noris Horne MD -[facility] Start: 11-08-2024 Non-patient / Non-visit Dr. Maria Ines Pelayo MD [facility] Work Phone: Start: 11-07-2024 Non-patient / Non-visit Dr. Anabell israel MD [facility] Work Phone: Start: 11-06-2024 Non-patient / Non-visit Dr. Anabell israel MD [facility] Work Phone: Start: 11-05-2024 Non-patient / Non-visit Dr. Anabell israel MD [facility] Work Phone: Start: 11-04-2024 Non-patient / Non-visit Dr. Anabell israel MD [facility] Work Phone: Start: 11-04-2024 ambulatory Lusk Pauline Facility:[facility] Start: 11-04-2024 Non-patient / Non-visit Dr. Cheng CRAWFORD -[facility] Start: 11-03-2024 End: 11-03-2024 ambulatory Kam Rogers Facility:[facility] Start: 11-03-2024 End: 11-03-2024 Non-patient / Non-visit Dr. Sam Carpenter MD -[place] [facility] Work Phone: Start: 11-03-2024 ambulatory Kam Rogers Facili ty:[facility] Start: 11-03-2024 End: 11-12-2024 Evaluation and management of inpatient Dr. Kam Rogers DO -Progressive Care Unit Work Phone: Start: 11-03-2024 End: 11-03-2024 ambulatory Nurse Intm/Famp Triage [facility] Work Phone: Nurse Phone Triage Comment on above: Breathing Problem Start: 11-02-2024 End: 11-03-2024 ambulatory Royce Carroll MD Work Phone: [facility] [place] Comment on above: Chest Pain Start: 11-02-2024 End: 11-02-2024 Telephone encounter Royce Carroll MD Work Phone: Family Medicine [place] Comment on above: pulse ox readings ov er 100 Start: 10-25-2024 End: 10-26-2024 ambulatory Royce Carroll MD Work Phone: [facility] Comment on above: Allied Health Visit (Medication Adherence Outreach/) Refill Request Start: 10-22-2024 End: 11-12-2024 Follow-up encounter Gianni Velazquez APRN.WINERY WORKER [facility] Start: 10-21-2024 End: 10-21-2024 ambulatory ROYCE CARROLL Facility:[facility] Start: 10-21-2024 End: 10-21-2024 Patient encounter procedure Timothy Allen MD Work Phone: Ophthalmology Comment on above: Type 2 diabetes yossi itus without complication, without long- term current use of insulin (HCC); Type 2 diabetes mellitus with both eyes affected by mild nonproliferative retinopathy without macular edema, without long-term current use of insulin (HCC) Start: 10-11-2024 End: 10-11-2024 ambulatory ROYCE CARROLL Facility:[facility] Start: 10-11-2024 End: 10-11-2024 Subsequent hospital visit by physician Monique [facility] ([facility]) Work Phone: Cat Scan Comment on above: Localized enlarged l ymph nodes [R59.0] Start: 10-01-2024 End: 10-04-2024 Follow-up encounter Royce Carroll MD Work Phone: [facility] [place] Start: 09-27-2024 End: 09-27-2024 ambulatory ROYCE CARROLL Facility:[facility] Start: 09-27-2024 End: 09-27-2024 Patient encounter procedure Royce Carroll MD Work Phone: Internal Medicine [place] Comment on above: Medicare annual [facility] visit, subsequent (Primary Dx); Essential hypertension; Hyperlipidemia, unspecified hyperlipidemia type; Type 2 diabetes mellitus with diabetic mononeuropathy, without long-term current use of insulin (HCC); Atherosclerosis of coronary artery of [place] heart without angina pectoris, unspecified vessel or lesion type; Rhinitis, unspecified type; Anxiety disorder, unspecified type; Chronic diastolic CHF (congestive heart failure) (HCC); Centrilobular emphysema (HCC); Stage 3a chronic kidney disease (HCC) Start: 09-24-2024 End: 09-30-2024 Telephone encounter Chiquis CORTES Navigation Start: 09-14-2024 End: 09-14-2024 Telephone encounter Chiquis CORTES Navigation Start: 09-13-2024 End: 09-13-2024 ambulatory ROYCE CARROLL Facility:[facility] Start: 09-13-2024 End: 09-13-2024 Patient encounter procedure Gianni Velazquez APRN.CNP Work Phone: Pulmonary Medicine Comment on above: Multiple lung nodule s (Primary Dx); Encounter for screening for lung cancer; Former tobacco use; Localized enlarged lymph nodes Start: 09-13-2024 End: 09-13-2024 Follow-up encounter Gianni Velazquez APRN.WINERY WORKER Work Phone: Pulmonary Medicine Start: 09-03-2024 End: 09-03-2024 Telephone encounter Royce Carroll MD Work Phone: Internal Medicine [place] Comment on above: Patient Question Start: 09-03-2024 End: 09-03-2024 ambulatory ROYCE CARROLL Facility:[facility] Start: 09-03-2024 End: 09-03-2024 Patient encounter procedure Olu Angela Work Phone: Podiatry Comment on above: Onychomycosis (Prima ry Dx); Pain in toe of left foot; Pain in toe of right foot; Diabetic polyneuropathy associated with type 2 diabetes mellitus (HCC); Hyperkeratosis; Hammer toe, unspecified laterality Start: 07-23-2024 End: 07-23-2024 ambulatory ROYCE CARROLL Facility:[facility] Start: 07-23-2024 End: 07-23-2024 [facility] Work Phone: Cat Scan Comment on above: Cigarette smoker [F1 7.210] Start: 07-22-2024 End: 07-26-2024 Refill Royce Carorll MD Work Phone: Internal Medicine [place] Comment on above: Refill Request Start: 07-08-2024 End: 07-08-2024 Orders Only Kirstin Zuñiga APRN.WINERY WORKER Work Phone: Pulmonary Medicine Comment on above: Cigarette smoker (Pr imary Dx) Start: 07-01-2024 End: 07-01-2024 ambulatory Pulm Lab [facility] Work Phone: PULM LAB [facility] Comment on above: Spirometry Start: 07-01-2024 End: 07-01-2024 Patient encounter procedure Pulm Lab [facility] Work Phone: [facility]ULM LAB [facility] Start: 07-01-2024 End: 07-01-2024 ambulatory Pulm [facility] Work Phone: [facility]ULM LAB [facility] Start: 07-01-2024 End: 07-01-2024 Patient encounter procedure Pulm [facility] Work Phone: PULM LAB [facility] Comment on above: Stage 4 very severe COPD by GOLD classification (HCC) (Primary Dx); Chronic hypoxemic respiratory failure (HCC); Current smoker on some days Start: 06-26-2024 End: 06-30-2024 Telephone encounter Royce Carroll MD Work Phone: Internal Medicine [place] Comment on above: Results, Lab Start: 06-23-2024 End: 06-23-2024 ambulatory ROYCE CARROLL Facility:[facility] Start: 06-23-2024 End: 06-23-2024 Office outpatient visit 25 minutes Royce Carroll MD Work Phone: Internal Medicine [place] Comment on above: Nasal sore (Primary Dx); Essential hypertension; Type 2 diabetes mellitus with diabetic mononeuropathy, without long-term current use of insulin (HCC); Chronic respiratory failure with hypoxia (HCC); Anemia, unspecified type Start: 06-03-2024 End: 06-03-2024 ambulatory ROYCE CARROLL Facility:[facility] Start: 06-03-2024 End: 06-03-2024 Patient encounter procedure Olu Miller Work Phone: Podiatry Comment on above: Onychomycosis (Prima ry Dx); Pain in toe of left foot; Pain in toe of right foot; Diabetic polyneuropathy associated with type 2 diabetes mellitus (HCC) Start: 04-29-2024 End: 04-29-2024 Refill Royce Carroll MD Work Phone: [facility] [place] Comment on above: Refill Request (Out of duoneb medication) Start: 04-08-2024 End: 04-09-2024 Telephone encounter Clark Rothman MD Work Phone: Pulmonary Medicine Comment on above: Patient Update Start: 03-22-2024 End: 03-22-2024 Subsequent hospital visit by physician Antonietta [facility] Work Phone: Radiology Comment on above: Shortness of breath [R06.02] Start: 03-22-2024 End: 03-22-2024 ambulatory ROYCE CARROLL Facility:[facility] Start: 03-22-2024 End: 03-22-2024 Patient encounter procedure Gabby Cannon APRN.WINERY WORKER Work Phone: Internal Medicine [place] Comment on above: Shortness of breath (Primary Dx); Acute cough; Chronic obstructive pulmonary disease with (acute) exacerbation (HCC); Chronic respiratory failure with hypoxia (HCC); Chronic diastolic CHF (congestive heart failure) (HCC); Type 2 diabetes mellitus with diabetic peripheral angiopathy without gangrene, without long-term current use of insulin (HCC); Muscle cramps; SVT (supraventricular tachycardia) ([facility]); Stage 3a chronic kidney disease ([facility]); Essential hypertension Start: 02-27-2024 End: 02-27-2024 ambulatory ROYCE CARROLL Facility:[facility] Start: 02-27-2024 End: 02-27-2024 Patient encounter procedure Olu Miller Work Phone: Podiatry Comment on above: Onychomycosis (Prima ry Dx); Pain in toe of left foot; Pain in toe of right foot; Diabetic polyneuropathy associated with type 2 diabetes mellitus (HCC) Start: 01-19-2024 End: 01-19-2024 ambulatory ROYCE CARROLL Facility:[facility] Start: 01-19-2024 End: 01-19-2024 Patient encounter procedure Carmen Virgen APRN.WINERY WORKER Work Phone: [place] [facility] Comment on above: Nasal abscess (Prima ry Dx) Start: 12-30-2023 Refill Royce elliott MD Work Phone: Internal Medicine [place] Comment on above: Refill Request Start: 12-18-2023 End: 12-18-2023 ambulatory ROYCE CARROLL Facility:[facility] Start: 12-18-2023 End: 12-18-2023 Patient encounter procedure Royce Carroll MD Work Phone: Internal Medicine [place] Comment on above: Abnormality of gait (Primary Dx); Essential hypertension; Type 2 diabetes mellitus with diabetic mononeuropathy, without long-term current use of insulin (HCC); Rhinitis, unspecified type; Atherosclerosis of coronary artery of [place] heart without angina pectoris, unspecified vessel or lesion type; Anxiety disorder, unspecified type; Chronic obstructive pulmonary disease with (acute) exacerbation (HCC); Cramp of muscle of both upper extremities Start: 12-10-2023 End: 12-10-2023 ambulatory Clark Rothman Facility:[facility] Start: 12-02-2023 End: 12-02-2023 Patient encounter procedure Clark Rothman MD Work Phone: Pulmonary Medicine Comment on above: Stage 3 severe COPD by GOLD classification (HCC) (Primary Dx); Former cigarette smoker; Chronic hypoxemic respiratory failure (HCC); Aspiration of liquid, subsequent encounter Start: 11-26-2023 Refill Royce elliott MD Work Phone: Internal Medicine [place] Comment on above: Refill Request Start: 11-04-2023 End: 11-04-2023 Subsequent hospital visit by physician [facility] Work Phone: Radiology Comment on above: Contusion of right g reat toe without damage to nail, initial encounter [S90.111A] Start: 11-04-2023 End: 11-04-2023 Patient encounter procedure Olu Miller Work Phone: Podiatry Comment on above: Onychomycosis (Prima ry Dx); Pain in toe of left foot; Pain in toe of right foot; Diabetic polyneuropathy associated with type 2 diabetes mellitus (HCC); Contusion of right great toe without damage to nail, initial encounter Start: 10-13-2023 Refill Royce elliott MD Work Phone: Internal Medicine [place] Comment on above: Refill Request Start: 10-09-2023 End: 10-09-2023 Patient encounter procedure Timothy Allen MD Work Phone: Ophthalmology Comment on above: Type 2 diabetes yossi itus without complication, without long- term current use of insulin (HCC) (Primary Dx) Start: 09-24-2023 Telephone encounter Royce arce MD Work Phone: Internal Medicine [place] Comment on above: Results Start: 09-19-2023 End: 09-19-2023 Subsequent hospital visit by physician [facility] Work Phone: Radiology Comment on above: Chronic obstructive pulmonary disease with (acute) exacerbation (HCC) [J44.1] Start: 09-19-2023 End: 09-19-2023 Patient encounter procedure Royce Carroll MD Work Phone: Internal Medicine [place] Comment on above: Medicare annual well ness visit, subsequent (Primary Dx); Abnormality of gait; Falling episodes; Chronic obstructive pulmonary disease with (acute) exacerbation (HCC); Type 2 diabetes mellitus with diabetic peripheral angiopathy without gangrene, without long-term current use of insulin (HCC); Atherosclerosis of coronary artery of [place] heart without angina pectoris, unspecified vessel or lesion type; Type 2 diabetes mellitus with diabetic mononeuropathy, without long-term current use of insulin (HCC) Start: 07-09-2023 End: 07-09-2023 Patient encounter procedure Tabatha Jarrett MD Work Phone: Ophthalmology Comment on above: Pseudophakia (Primar y Dx); Type 2 diabetes mellitus without retinopathy (HCC) Start: 07-08-2023 End: 07-08-2023 ambulatory TABATHA JARRETT [facility] Start: 06-30-2023 Refill Tabatha Jarrett MD Work Phone: [facility] Comment on above: Refill Request (Pre- op drops OS ) Start: 06-27-2023 End: 06-27-2023 ambulatory [facility] Work Phone: Start: 06-27-2023 End: 06-27-2023 Patient encounter procedure [facility], [facility] Work Phone: Start: 06-13-2023 End: 06-13-2023 Patient encounter procedure Gabby De La Cruz APRN.WINERY WORKER Work Phone: Internal Medicine [place] Comment on above: Preop general physic al exam (Primary Dx); Type 2 diabetes mellitus with diabetic peripheral angiopathy without gangrene, without long-term current use of insulin (HCC); Hyperlipidemia, unspecified hyperlipidemia type; Essential hypertension; Chronic obstructive pulmonary disease with (acute) exacerbation (HCC); Chronic diastolic CHF (congestive heart failure) (HCC); Acute on chronic respiratory failure with hypoxia (HCC) Start: 06-13-2023 End: 06-13-2023 Physical examination Gabbytrevor De La Cruz APRN.WINERY WORKER Work Phone: [facility] Work Phone: Start: 06-10-2023 End: 06-10-2023 Patient encounter procedure Meghann Forman OD Work Phone: Ophthalmology Comment on above: Pseudophakia (Primar y Dx); Combined forms of age-related cataract of left eye Refill Request Start: 05-27-2023 End: 05-27-2023 Patient encounter procedure Alma Dhillon PA-C Work Phone: Neurology Comment on above: Essential tremor (Pr imary Dx); Osteoarthritis of lumbar spine, unspecified spinal osteoarthritis complication status; Abnormality of gait; Facial weakness; Transient cerebral ischemia, unspecified type; History of stroke; SVT (supraventricular tachycardia); V-tach (HCC); History of CVA (cerebrovascular accident); Left arm weakness Start: 05-07-2023 End: 05-07-2023 Patient encounter procedure Tabatha Jarrett MD Work Phone: Ophthalmology Comment on above: Pseudophakia (Primar y Dx) Start: 05-06-2023 End: 05-06-2023 ambulatory [facility] Start: 05-01-2023 End: 05-01-2023 Patient encounter procedure Gabby De La Cruz APRN.WINERY WORKER Work Phone: Internal Medicine [place] Comment on above: Preop exam for inter nal medicine (Primary Dx); Type 2 diabetes mellitus with diabetic peripheral angiopathy without gangrene, without long-term current use of insulin (HCC); Essential hypertension; Chronic obstructive pulmonary disease with (acute) exacerbation (HCC); Acute on chronic respiratory failure with hypoxia (HCC); Chronic diastolic CHF (congestive heart failure) (HCC); Atherosclerosis of coronary artery of [place] heart without angina pectoris, unspecified vessel or lesion type; Encounter for immunization Start: 05-01-2023 End: 05-01-2023 Patient encounter status Gabby De La Cruz ORTHOTIC TECHNICIAN.WINERY WORKER Work Phone: [facility] Work Phone: Start: 04-15-2023 Telephone encounter Tabatha bell MD [facility] Comment on above: Preparations For Natalia haprer (H&P status) Start: 04-14-2023 End: 04-15-2023 ambulatory JOCELYNE MCKNIGHT Facility:[facility] Start: 02-25-2023 End: 02-25-2023 Patient encounter procedure Clark Rothman MD Work Phone: Pulmonary Medicine Comment on above: Stage 3 severe COPD by GOLD classification ([facility]) (Primary Dx); Chronic hypoxemic respiratory failure (HCC); Former cigarette smoker Start: 02-19-2023 End: 02-19-2023 Patient encounter procedure Tabatha Jarrett MD Work Phone: Ophthalmology Comment on above: Nuclear sclerosis of both eyes (Primary Dx); Type 2 diabetes mellitus without retinopathy ([facility]); Refractive error Start: 02-13-2023 End: 02-13-2023 Patient encounter procedure Jocelyne Mcknight ORTHOTIC TECHNICIAN.WINERY WORKER Work Phone: Neurology Comment on above: Essential tremor (Pr imary Dx); Osteoarthritis of lumbar spine, unspecified spinal osteoarthritis complication status; Abnormality of gait; Transient cerebral ischemia, unspecified type; Facial weakness; Left arm weakness; History of stroke; SVT (supraventricular tachycardia) (HCC); V-tach (HCC) Start: 02-03-2023 End: 02-03-2023 Patient encounter procedure Meghann Forman OD Work Phone: Ophthalmology Comment on above: Type 2 diabetes yossi itus without retinopathy (HCC) (Primary Dx); Nuclear sclerosis of both eyes; Refractive error Start: 01-15-2023 End: 01-15-2023 Patient encounter procedure Royce Carroll MD Work Phone: Internal Medicine [place] Comment on above: Chronic obstructive pulmonary disease with (acute) exacerbation (HCC) (Primary Dx); Essential hypertension; Acute on chronic respiratory failure with hypoxia (HCC); Chronic diastolic CHF (congestive heart failure) (HCC); Hyperlipidemia, unspecified hyperlipidemia type; Essential tremor; Atherosclerosis of coronary artery of [place] heart without angina pectoris, unspecified vessel or lesion type; Anxiety disorder, unspecified type; Type 2 diabetes mellitus with diabetic mononeuropathy, without long-term current use of insulin (HCC) Start: 01-01-2023 Telephone encounter Gabby De La Cruz APRNTorstenWINERY WORKER Work Phone: Internal Medicine [place] Comment on above: Results Start: 12-31-2022 Telephone encounter Gabby De La Cruz APRN.WINERY WORKER Work Phone: Internal Medicine [place] Comment on above: Results; Appointment Start: 12-30-2022 End: 12-30-2022 Patient encounter procedure Gabby De La Cruz APRN.WINERY WORKER Work Phone: Internal Medicine [place] Comment on above: Bilateral lower extr emity edema (Primary Dx); Chronic obstructive pulmonary disease, unspecified COPD type (HCC); SOB (shortness of breath); Elevated brain natriuretic peptide (BNP) level Start: 12-28-2022 Telephone encounter Royce arce MD Work Phone: Internal Medicine [place] Comment on above: Patient Update Start: 12-25-2022 End: 12-25-2022 ambulatory [facility]m [facility] Work Phone: PULM LAB [facility] Comment on above: Spirometry Start: 12-25-2022 End: 12-25-2022 Patient encounter procedure [facility] Work Phone: [facility] Start: 12-07-2022 Refill Jocelyne francisco APRN.WINERY WORKER Work Phone: Internal Medicine [place] Comment on above: Refill Request Start: 10-30-2022 Telephone encounter Gianni diaz ORTHOTIC TECHNICIAN.WINERY WORKER Work Phone: Pulmonary Medicine Comment on above: Results Start: 10-29-2022 End: 10-29-2022 Subsequent hospital visit by physician [facility] ([facility]) Work Phone: Cat Scan Comment on above: Encounter for screen ing for lung cancer [Z12.2] Start: 10-29-2022 End: 10-29-2022 Patient encounter procedure Gianni Velazquez ORTHOTIC TECHNICIAN.WINERY WORKER Work Phone: Pulmonary Medicine Comment on above: Encounter for screen ing for lung cancer (Primary Dx); Tobacco use disorder Start: 10-22-2022 Orders Only Gianni crenshaw ORTHOTIC TECHNICIAN.WINERY WORKER Work Phone: Pulmonary Medicine Comment on above: Encounter for screen ing for lung cancer (Primary Dx); Tobacco use current Start: 10-21-2022 Refill Royce elliott MD Work Phone: Internal Medicine [place] Comment on above: Refill Request Start: 10-11-2022 Refill Royce elliott MD Work Phone: Internal Medicine [place] Comment on above: Refill Request Start: 09-09-2022 Orders Only Gianni Teresa crenshaw ORTHOTIC TECHNICIAN.WINERY WORKER Work Phone: [facility] Comment on above: Tobacco use disorder (Primary Dx) Start: 08-14-2022 Refill Royce elliott MD Work Phone: [facility] [place] Comment on above: Refill Request Start: 07-08-2022 Telephone encounter Royce arce MD Work Phone: [facility] [place] Comment on above: Results Start: 07-07-2022 Refill Jocelyne francisco ORTHOTIC TECHNICIAN.WINERY WORKER Work Phone: Neurology Comment on above: Refill Request Start: 07-04-2022 End: 07-04-2022 Patient encounter procedure Royce Carroll MD Work Phone: [facility] [place] Comment on above: Routine medical exam (Primary Dx); Chronic bronchitis, unspecified chronic bronchitis type (HCC); Need for influenza vaccination; Need for COVID-19 vaccine; Hyperlipidemia, unspecified hyperlipidemia type; Type 2 diabetes mellitus with diabetic neuropathy, without long-term current use of insulin (HCC) Start: 07-04-2022 End: 07-04-2022 Patient encounter status Royce Carroll MD Work Phone: [facility] [place] Start: 04-29-2022 Refill Royce elliott MD Work Phone: [facility] [place] Comment on above: Refill Request Medication Request Start: 04-17-2022 ambulatory Gi Ferreira [facility] Start: 04-15-2022 Refill Royce elliott MD Work Phone: Internal Medicine [place] Comment on above: Refill Request Start: 04-07-2022 Refill Jocelyne francisco APRN.WINERY WORKER Work Phone: Neurology Comment on above: Refill Request Start: 03-01-2022 Telephone encounter Jocelyne Almonte APRN.WINERY WORKER Work Phone: Neurology Comment on above: Orders Start: 02-21-2022 End: 02-21-2022 Patient encounter procedure Jocelyne Mcknight APRN.WINERY WORKER Work Phone: Neurology Comment on above: Essential tremor (Pr imary Dx); Osteoarthritis of lumbar spine, unspecified spinal osteoarthritis complication status; Abnormality of gait; Transient cerebral ischemia, unspecified type; Facial weakness; Left arm weakness; History of stroke Start: 01-30-2022 Refill Royce elliott MD Work Phone: [facility] [place] Comment on above: Refill Request Start: 01-26-2022 Refill Royce elliott MD Work Phone: Family Medicine [place] Comment on above: Refill Request Start: 01-21-2022 Telephone encounter Royce arce MD Work Phone: [facility] [place] Comment on above: Results Start: 01-14-2022 End: 01-14-2022 Office outpatient visit 25 minutes Royce Carroll MD Work Phone: Internal Medicine [place] Comment on above: Type 2 diabetes yossi itus with diabetic peripheral angiopathy without gangrene, without long-term current use of insulin (HCC) (Primary Dx); Chronic bronchitis, unspecified chronic bronchitis type (HCC); Abnormality of gait; Tobacco use disorder Start: 01-03-2022 Refill Jocelyne francisco ORTHOTIC TECHNICIAN.WINERY WORKER Work Phone: Neurology Comment on above: Refill Request Start: 01-01-2022 ambulatory Silvina Pitts MA [facility] [place] Comment on above: Population Health Na vigation Outreach ([place] [facility]) Start: 11-23-2021 Refill Royce elliott MD Work Phone: Internal Medicine [place] Comment on above: Opened In Error Start: 11-17-2021 Refill Jocelyne francisco ORTHOTIC TECHNICIAN.WINERY WORKER Work Phone: Neurology Comment on above: Refill Request Start: 11-14-2021 Telephone encounter Jocelyne Almonte APRN.WINERY WORKER Work Phone: Neurology Comment on above: Zio results Start: 11-13-2021 End: 11-13-2021 ambulatory Carmen [facility] Comment on above: Abnormality of gait (Primary Dx); Lumbar spondylosis; History of stroke Refill Request Start: 11-01-2021 End: 11-01-2021 Subsequent hospital visit by physician Ct [facility] (I-Stat) Work Phone: Cat Scan Comment on above: Lung nodules [R91.8] Start: 10-30-2021 End: 10-30-2021 Patient encounter procedure Sharon Limon DO Work Phone: Vascular Surgery Comment on above: Stenosis of left car otid artery Start: 10-25-2021 Telephone encounter Jocelyne Almonte APRN.WINERY WORKER Work Phone: Internal Medicine [place] Comment on above: records requested Start: 10-23-2021 Telephone encounter Royce arce MD Work Phone: Neurology Comment on above: Results Start: 10-22-2021 End: 10-22-2021 Subsequent hospital visit by physician [employer] [facility] (I-Stat/1.5t) Work Phone: Radiology Comment on above: Transient cerebral i schemia, unspecified type [G45.9] Start: 10-17-2021 Telephone encounter Royce arce MD Work Phone: Internal Medicine [place] Comment on above: Results Start: 10-15-2021 End: 10-15-2021 Orders Only Jocelyne Mcknight ORTHOTIC TECHNICIAN.WINERY WORKER Work Phone: Neurology Comment on above: Stenosis of left car otid artery (Primary Dx) Transient cerebral i schemia, unspecified type [G45.9] Procedures Date Procedure Procedure Detail Performing Clinician Start: 01-04-2025 Plain chest X-ray Dr. Royce Carroll MD Work Phone: Start: 01-04-[address] Royce Carroll MD Work Phone: Start: 11-12-[address] Royce Carroll MD Work Phone: Start: 11-09-2024 CT angiography of chest with contrast Dr. Royce Carroll MD Work Phone: Start: 11-05-[address] Royce Carroll MD Work Phone: Start: 11-05-2024 Serum inorganic phosphate measurement Dr. Royce Carroll MD Work Phone: Start: 11-04-2024 Legionella pneumophila antigen assay Dr. Royce Carroll MD Work Phone: Start: 11-04-[address] Royce Carroll MD Work Phone: Start: 11-04-2024 End: 11-04-2024 Streptococcus pneumoniae antigen assay Dr. Royce Carroll MD Work Phone: Start: 11-04-2024 Carbon dioxide measurement, partial pressure Dr. Royce Carroll MD Work Phone: Start: 11-04-2024 Gases blood o2 saturation only direct mallorie Dr. Royce Carroll MD Work Phone: Start: 11-04-2024 Measurement of partial pressure of oxygen in blood Dr. Royce Carroll MD Work Phone: Start: 11-04-[address] Royce Carroll MD Work Phone: Start: 11-03-2024 Plain chest X-ray Dr. Royce Carroll MD Work Phone: Start: 11-03-2024 SARS-CoV-2, Influenza & RSV (PCR) Dr. Royce Carroll MD Work Phone: Start: 10-21-2024 Computerized ophthalmic imaging retina Timothy Allen MD Work Phone: Start: 07-01-2024 Noninvasive ear/pulse oximetry multiple deter Clark Rothman MD Work Phone: Start: 07-01-2024 Brncdilat rspse spmtry pre&post-brncdilat admn Clark Rothman MD Work Phone: Start: 03-22-2024 Radiologic exam chest 2 views Gabby Ciera Santo ORTHOTIC TECHNICIAN.WINERY WORKER Work Phone: Start: 12-18-2023 Adult depression screening assessment Olu Miller Work Phone: Start: 10-09-2023 Computerized ophthalmic imaging retina Timothy Allen MD Work Phone: Start: 09-19-2023 Radiologic exam chest 2 views Royce Carroll MD Work Phone: Start: 06-27-2023 [employer] Start: 05-01-2023 [employer] COVID-19 VACCINE (2022- SEASON) AGE 12+ YR Gabby Older ORTHOTIC TECHNICIAN.WINERY WORKER Work Phone: Start: 05-01-2023 Ecg routine ecg w/least 12 lds i&r only [facility] Provider Start: 05-01-2023 INFLUENZA VACCINE, PRSV FREE, AGE 65+ YR, HIGH DOSE, QUADRIVALENT (FLUZONE HIGH-DOSE) Gabby Older ORTHOTIC TECHNICIAN.WINERY WORKER Work Phone: Start: 02-19-2023 End: 02-19-2023 Computerized ophthalmic imaging retina Tabatha Jarrett MD Work Phone: Start: 02-19-2023 IOL BIOMETRY W/ IOL CALC OU (BOTH EYES) Tabatha Jarrett MD Work Phone: Start: 01-15-2023 Hemoglobin A1c/Hemoglobin.total in Blood Royce Carroll MD Work Phone: Start: 12-25-2022 Brncdilat rspse spmtry pre&post-brncdilat admn Royce Carroll MD Work Phone: Start: 10-29-2022 CT LUNG SCREEN WO FAM[facility] Giannijoao Velazquez ORTHOTIC TECHNICIAN.WINERY WORKER Work Phone: Start: 07-04-2022 [employer] COVID-19 BIVALENT BOOSTER VACCINE, AGE 12+ YR Royce Carroll MD Work Phone: Start: 07-04-2022 INFLUENZA SEASONAL QUADRIVALENT HIGH DOSE AGE 65+ Royce Carroll MD Work Phone: Start: 11-01-2021 Ct thorax w/o contrast material Royce Carroll MD Work Phone: Start: 10-22-2021 Mri brain brain stem w/o contrast material Jocelyne Mcknight ORTHOTIC TECHNICIAN.WINERY WORKER Work Phone: Start: 10-15-2021 Ct angiography neck w/contrast/noncontrast Jocelyne Mcknight ORTHOTIC TECHNICIAN.WINERY WORKER Work Phone: Start: 06-29-2021 Adult depression screening assessment Jocelyne Mcknight ORTHOTIC TECHNICIAN.WINERY WORKER Work Phone: Start: 06-06-2015 History of coronary artery bypass grafting S/P CABG x 3 Jocelynebridger Mcknight APRN.CNP Work Phone: Start: 06-06-2015 History of placement of stent for coronary artery disease S/P coronary artery stent placement Jocelyne Yoel LIU Work Phone: Plan of Treatment Date Care Activity Detail Author Start: 11-17-2025 Annual PCP Team Chronic Disease Visit Annual PCP Team Chronic Disease Visit [facility] Start: 11-17-2025 BP Controlled (<130/80) BP Controlled (<130/80) [facility] in Start: 10-21-2025 Glaucoma screening Dilated Retinal Exam [facility] Start: 10-11-2025 Screening for malignant neoplasm of lung Lung Cancer Screening [facility] Start: 09-30-2025 Hepatitis B screening Urine Albumin:Creatinine Ratio [facility] Start: 09-27-2025 Annual PCP Team Chronic Disease Visit Annual PCP Team Chronic Disease Visit [facility] Start: 09-27-2025 BP Controlled (<130/80) BP Controlled (<130/80) [facility] Start: 09-27-2025 Complete blood count Hemoglobin/Hematocrit [facility] Start: 09-27-2025 Creatinine measurement Serum Creatinine [facility] Start: 09-27-2025 Hepatitis B surface antibody level LDL Cholesterol [facility] Start: 09-03-2025 Diabetic foot examination Diabetic Foot Exam [facility] Start: 07-23-2025 Screening for malignant neoplasm of lung Lung Cancer Screening [facility] Start: 07-01-2025 BP Controlled (<130/80) BP Controlled (<130/80) [facility] Start: 06-23-2025 Annual PCP Team Chronic Disease Visit Annual PCP Team Chronic Disease Visit [facility] Start: 03-30-2025 Hemoglobin A1c measurement HbA1C [facility] Start: 03-30-2025 End: 03-30-2025 Patient encounter procedure 03/30/2025 1:00 PM EDT Office Visit [facility] [place] [address] [place] [id number] Royce Carroll MD [address] [place] [address] 6 month follow-up [facility] [place] Comment on above: 6 month follow-up Start: 03-22-2025 Annual PCP Team Chronic Disease Visit Annual PCP Team Chronic Disease Visit [facility] Start: 03-22-2025 BP Controlled (<130/80) BP Controlled (<130/80) [facility] Start: 03-22-2025 Creatinine measurement Serum Creatinine [facility] Start: 03-11-2025 End: 03-11-2025 Patient encounter procedure 03/11/2025 2:20 PM EDT Office Visit Podiatry [address] [place], [place] [id number] Olu Miller [address] [facility] [place] [address] 3 month follow up nail care Podiatry Comment on above: 3 month follow up nail care Start: 01-24-2025 End: 01-24-2025 Patient encounter procedure 01/24/2025 10:40 AM EDT Office Visit Cardiology [address] [place], [place] [id number] Kam Farr MD [address] [place] [address] Chronic diastolic CHF (congestive heart failure) (HCC) [I50.32] - only wants [place] [facility] Comment on above: Chronic diastolic CHF (congestive heart failure) (HCC) [I50.32] - only wants [place] Start: 01-11-2025 End: 01-11-2025 Patient encounter procedure 01/11/2025 2:45 PM EDT Office Visit Pulmonary Medicine [address] [place], [place] [id number] Clark Rothman MD [address] [place], [place] [id number] 6 month copd Pulmonary Medicine Comment on above: 6 month copd Start: 01-04-2025 Respiratory pathogens DNA and RNA panel - Respiratory specimen by BREA with probe detection [facility] Start: 01-04-2025 Verification routine [facility] Start: 01-04-2025 Admission procedure [facility] Start: 01-04-2025 Hospital admission, emergency, from emergency room, medical nature [facility] Start: 01-04-2025 [facility] Start: 12-17-2024 Annual PCP Team Chronic Disease Visit Annual PCP Team Chronic Disease Visit [facility] Start: 12-17-2024 BP Controlled (<130/80) BP Controlled (<130/80) [facility] Start: 12-17-2024 Depression Screening Depression Screening [facility] Start: 12-03-2024 End: 12-03-2024 Patient encounter procedure Podiatry Comment on above: 3 month follow up nail care Start: 11-19-2024 Covid-19 Vaccine () Covid-19 Vaccine () [facility] Start: 11-17-2024 End: 11-17-2024 Patient encounter procedure 11/17/2024 11:20 AM EDT Office Visit [facility] [place] [address] [place] [address] Royce Carroll MD [address] [place] [address] [facility] hosp d/c 11/12/24 copd/pneumonia [facility] [place] Comment on above: [facility] hosp d/c 11/12/24 copd/pneumonia Start: 11-12-2024 Patient discharge [facility] Start: 11-10-2024 Referral to service [facility] Start: 11-08-2024 Referral to guest request runner [facility] Start: 11-08-2024 [facility] Start: 11-04-2024 [facility] Start: 11-04-2024 [facility] Start: 11-04-2024 Elevation of head of bed [facility] Start: 11-04-2024 Patient education [facility] Start: 11-04-2024 [facility] Start: 11-04-2024 Following clinical pathway protocol [facility] Start: 11-04-2024 [facility] Start: 11-04-2024 Application of intermittent pneumatic compression device [facility] Start: 11-04-2024 Continuous pulse oximetry [facility] Start: 11-03-2024 Care planning and problem solving actions [facility] Start: 11-03-2024 Following clinical pathway protocol [facility] Start: 11-03-2024 Aspiration precautions [facility] Start: 11-03-2024 Assessment of risk of venous thromboembolism [facility] Start: 11-03-2024 Care regimes management [facility] Start: 11-03-2024 Insertion of catheter into peripheral vein [facility] Start: 11-03-2024 Measuring intake and output [facility] Start: 11-03-2024 Notification of physician [facility] Start: 11-03-2024 Oxygen therapy [facility] Start: 11-03-2024 Providing care according to standard [facility] Start: 11-03-2024 Provision of activity privileges [facility] Start: 11-03-2024 Referral to service [facility] Start: 11-03-2024 Speech therapy assessment [facility] Start: 11-03-2024 End: 11-03-2024 [facility] Start: 11-03-2024 Verification routine [facility] Start: 11-03-2024 Admission procedure [facility] Start: 11-03-2024 Hospital admission, emergency, from emergency room, medical nature [facility] Start: 11-03-2024 End: 11-03-2024 [facility] Start: 11-03-2024 End: 11-03-2024 Patient encounter procedure 11/03/2024 2:20 PM EDT Office Visit [facility] [place] [address] [place] [address] Royce Carroll MD [address] [place] [address] -dull pain in chest with inhalation [facility] [place] Comment on above: -dull pain in chest with inhalation Start: 11-03-2024 Consultation [facility] Start: 11-03-2024 Inhalation therapy procedure [facility] Start: 11-03-2024 [facility] Start: 10-22-2024 End: 03-31-2025 OCT MACULA CIRRUS OU (BOTH EYES) OCT MACULA CIRRUS OU (BOTH EYES) [facility] Imaging Routine Type 2 diabetes mellitus without complication, without long-term current use of insulin (HCC) Expected: 10/22/2024, Expires: 03/31/2025 [facility] Work Phone: Comment on above: Expected: 10/22/2024, Expires: Start: 10-21-2024 End: 10-21-2024 Patient encounter procedure 10/21/2024 1:00 PM EDT Office Visit [facility] Ophthalmology [address] [place] [address] Timothy Allen MD [address] [place] [address] *YEARLY, DFE/OCT r/s from 10/07 Ophthalmology Comment on above: *YEARLY, DFE/OCT r/s from 10/07 Start: 10-11-2024 End: 10-11-2024 Patient encounter procedure 10/11/2024 3:20 PM EDT Appointment Cat Scan [address] [place] [address] CT CHEST W CONTRAST Cat Scan Comment on above: CT CHEST W CONTRAST Start: 10-08-2024 Glaucoma screening Dilated Retinal Exam [facility] Start: 10-07-2024 End: 10-07-2024 Patient encounter procedure Ophthalmology Comment on above: 1 yr Diabetic retinopathy *YEARLY, DFE/OCT Start: 09-23-2024 End: 09-23-2024 Patient encounter procedure 09/23/2024 1:00 PM EST Office Visit [facility] [address] [place] [address] Royce Carroll MD [address] [place] [address] Annual Medicare Wellness w/3 month follow-up [facility] [place] Comment on above: Annual Medicare Wellness w/3 month follo w-up Start: 09-22-2024 Hemoglobin A1c measurement HbA1C [facility] Start: 09-19-2024 Annual PCP Team Chronic Disease Visit Annual PCP Team Chronic Disease Visit [facility] Start: 09-19-2024 BP Controlled (<130/80) BP Controlled (<130/80) [facility] Start: 09-19-2024 Creatinine measurement Serum Creatinine [facility] Start: 09-19-2024 Hepatitis B screening Urine Albumin:Creatinine Ratio [facility] Start: 09-19-2024 Hepatitis B surface antibody level LDL Cholesterol [facility] Start: 09-13-2024 End: 09-13-2024 Patient encounter procedure 09/13/2024 2:30 PM EST Office Visit Pulmonary Medicine [address] [place] [address] Gianni Velazquez APRN.WINERY WORKER [address] [place] [address] Follow up lung nodule Pulmonary Medicine Comment on above: Follow up lung nodule Start: 09-13-2024 End: 12-13-2024 CBC panel - Blood by Automated count COMPLETE BLOOD COUNT Lab Routine Anemia, unspecified type Expected: 09/13/2024, Expires: 12/13/2024 [facility] Work Phone: Comment on above: Expected: 09/13/2024, Expires: Start: 09-13-2024 End: 12-13-2024 Comprehensive metabolic 2000 panel - Serum or Plasma COMPREHENSIVE METABOLIC PANEL Lab Routine Type 2 diabetes mellitus with diabetic mononeuropathy, without long-term current use of insulin (HCC) Expected: 09/13/2024, Expires: 12/13/2024 [facility] Comment on above: Expected: 09/13/2024, Expires: Start: 09-13-2024 End: 12-13-2024 Hemoglobin A1c in Blood HEMOGLOBIN A1C Lab Routine Type 2 diabetes mellitus with diabetic mononeuropathy, without long-term current use of insulin (HCC) Expected: 09/13/2024, Expires: 12/13/2024 [facility] Comment on above: Expected: 09/13/2024, Expires: Start: 09-13-2024 End: 12-13-2024 Lipid 1996 panel - Serum or Plasma LIPID PANEL BASIC Lab Routine Type 2 diabetes mellitus with diabetic mononeuropathy, without long-term current use of insulin (HCC) Expected: 09/13/2024, Expires: 12/13/2024 [facility] Comment on above: Expected: 09/13/2024, Expires: Start: 09-13-2024 End: 12-13-2024 Microalbumin/Creatinine [Mass Ratio] in Urine ALBUMIN/CREATININE RATIO, URINE Lab Routine Type 2 diabetes mellitus with diabetic mononeuropathy, without long-term current use of insulin (HCC) Expected: 09/13/2024, Expires: 12/13/2024 [facility] Comment on above: Expected: 09/13/2024, Expires: Start: 09-03-2024 End: 09-03-2024 Patient encounter procedure Podiatry Comment on above: 3 month follow up nail care Start: 08-08-2024 Glaucoma screening Dilated Retinal Exam [facility] Start: 08-04-2024 Diabetic foot examination Diabetic Foot Exam [facility] Start: 07-28-2024 Advance Directive Discussion Advance Directive Discussion [facility] Start: 07-26-2024 End: 07-26-2024 Patient encounter procedure 07/26/2024 1:00 PM EST Office Visit Pulmonary Medicine [address] [place] [address] Gianni Velazquez APRN.WINERY WORKER [address] [place] [address] Follow up Pulmonary Medicine Comment on above: Follow up Start: 07-01-2024 End: 07-01-2024 Patient encounter procedure 07/01/2024 1:15 PM EST Office Visit Pulmonary Medicine [address] [place] [address] Clark Rothman MD [address] [place] [address] 6Mo OV Pulmonary Medicine Comment on above: 6Mo OV Start: 07-01-2024 End: 07-01-2024 ambulatory 07/01/2024 12:45 PM EST Procedure PULM LAB [facility] [address] [place] [address] Wstr, Pulm Lab [facility] [address] [place] [address] Stage 3 severe COPD by GOLD classification ([facility]) [J44.9] PULM LAB [facility] Comment on above: Stage 3 severe COPD by GOLD classificati on ([facility]) [J44.9] Start: 06-23-2024 End: 06-23-2024 Patient encounter procedure 06/23/2024 3:00 PM EST Office Visit Internal [facility] [place] [address] [place] [address] Royce Carroll MD [address] [facility] [place] [address] 3 month follow up [facility] [place] Comment on above: 3 month follow up Start: 06-13-2024 Annual PCP Team Chronic Disease Visit Annual PCP Team Chronic Disease Visit [facility] Start: 06-03-2024 End: 06-03-2024 Patient encounter procedure 06/03/2024 1:00 PM EST Office Visit Podiatry [address] [place] [address] Olu Miller [address] [place] [address] 3 month follow up nail care Podiatry Comment on above: 3 month follow up nail care Start: 05-23-2024 Annual PCP Team Chronic Disease Visit Annual PCP Team Chronic Disease Visit [facility] Start: 05-23-2024 Colorectal Cancer Screening Colorectal Cancer Screening [facility] Comment on above: Postponed from 10/26/1996 (Declined at t his time) Start: 05-23-2024 Screening for malignant neoplasm of colon Colorectal Cancer Screening [facility] Comment on above: Postponed from 10/26/1996 (Declined at t his time) Start: 05-01-2024 Annual PCP Team Chronic Disease Visit Annual PCP Team Chronic Disease Visit [facility] Start: 05-01-2024 Complete blood count Hemoglobin/Hematocrit [facility] Start: 05-01-2024 Creatinine measurement Serum Creatinine [facility] Start: 05-01-2024 Hemoglobin/Hematocrit Hemoglobin/Hematocrit [facility] Start: 05-01-2024 Serum Creatinine Serum Creatinine [facility] Start: 03-28-2024 Covid-19 Vaccine ( season) Covid-19 Vaccine () [facility] Start: 03-28-2024 Covid-19 Vaccine () Covid-19 Vaccine () [facility] Start: 03-28-2024 Influenza vaccination [facility] Start: 03-22-2024 End: 06-21-2024 Basic metabolic 2000 panel - Serum or Plasma [facility] Comment on above: Expected: 03/22/2024, Expires: Start: 03-22-2024 End: 06-21-2024 Hemoglobin A1c in Blood [facility] Work Phone: Comment on above: Expected: 03/22/2024, Expires: Start: 03-22-2024 End: 06-21-2024 Magnesium [Mass/volume] in Serum or Plasma [facility] Comment on above: Expected: 03/22/2024, Expires: Start: 03-22-2024 End: 06-21-2024 Natriuretic peptide.B prohormone N-Terminal [Mass/volume] in Serum or Plasma [facility] Comment on above: Expected: 03/22/2024, Expires: Start: 03-19-2024 Hemoglobin A1c measurement HbA1C [facility] Start: 03-18-2024 End: 03-18-2024 Patient encounter procedure 03/18/2024 3:20 PM EDT Office Visit Internal Medicine [facility] [address] [place] [address] Royce Carroll MD [address] [facility] [place] [id number] 3 month follow-up Internal Medicine [facility] Comment on above: 3 month follow-up Start: 02-27-2024 End: 02-27-2024 Patient encounter procedure 02/27/2024 10:30 AM EDT Office Visit Podiatry [address] [place] [id number] Olu Miller [address] [place] [address] 3 month follow up nail care Podiatry Comment on above: 3 month follow up nail care Start: 02-20-2024 Glaucoma screening Dilated Retinal Exam [facility] Start: 02-20-2024 Hepatitis C antibody, confirmatory test DILATED RETINAL EXAM [facility] Start: 02-14-2024 BP CONTROLLED (<130/80) BP CONTROLLED (<130/80) [facility] Start: 02-06-2024 End: 02-06-2024 Patient encounter procedure 02/06/2024 2:00 PM EDT Office Visit Podiatry [address] [place] [id number] Olu Miller [address] [place] [address] 3 month follow up nail care Podiatry Comment on above: 3 month follow up nail care Start: 02-04-2024 Hepatitis C antibody, confirmatory test DILATED RETINAL EXAM [facility] Start: 01-16-2024 ANNUAL PCP TEAM CHRONIC DISEASE VISIT ANNUAL PCP TEAM CHRONIC DISEASE VISIT [facility] Start: 12-31-2023 ANNUAL PCP TEAM CHRONIC DISEASE VISIT ANNUAL PCP TEAM CHRONIC DISEASE VISIT [facility] Start: 12-31-2023 BP CONTROLLED (<130/80) BP CONTROLLED (<130/80) [facility] Start: 12-31-2023 HEMOGLOBIN/HEMATOCRIT HEMOGLOBIN/HEMATOCRIT [facility] Start: 12-31-2023 SERUM CREATININE SERUM CREATININE [facility] Start: 12-25-2023 ANNUAL PCP TEAM CHRONIC DISEASE VISIT ANNUAL PCP TEAM CHRONIC DISEASE VISIT [facility] Start: 12-18-2023 End: 12-18-2023 Patient encounter procedure 12/18/2023 2:40 PM EDT Office Visit Internal Medicine [facility] [address] [place] [address] Royce Carroll MD [address] [place] [address] 3 mth f/u Internal Medicine [facility] Comment on above: 3 mth f/u Start: 12-18-2023 End: 03-18-2024 Basic metabolic 2000 panel - Serum or Plasma BASIC METABOLIC PANEL Lab Routine Cramp of muscle of both upper extremities Expected: 12/18/2023, Expires: 03/18/2024 [facility] Work Phone: Comment on above: Expected: 12/18/2023, Expires: Start: 12-18-2023 End: 03-18-2024 CBC panel - Blood by Automated count COMPLETE BLOOD COUNT Lab Routine Chronic obstructive pulmonary disease with (acute) exacerbation (HCC) Expected: 12/18/2023, Expires: 03/18/2024 [facility] Comment on above: Expected: 12/18/2023, Expires: Start: 12-18-2023 End: 03-18-2024 Magnesium [Mass/volume] in Serum or Plasma MAGNESIUM Lab Routine Cramp of muscle of both upper extremities Expected: 12/18/2023, Expires: 03/18/2024 [facility] Comment on above: Expected: 12/18/2023, Expires: Start: 12-02-2023 End: 12-02-2023 Patient encounter procedure 12/02/2023 2:45 PM EDT Office Visit Pulmonary Medicine [address] [place], [place] [id number] Clark Rothman MD [address] [place], [place] [id number] 6 mo follow up Pulmonary Medicine Comment on above: 6 mo follow up Start: 10-31-2023 End: 11-29-2023 CT LUNG SCREEN WO IVCON CT LUNG SCREEN WO IVCON Radiology Routine Encounter for screening for lung cancer Tobacco use current Expected: 10/31/2023, Expires: 11/29/2023 [facility] Work Phone: Comment on above: Expected: 10/31/2023, Expires: Start: 10-31-2023 Hemoglobin A1c measurement HbA1C [facility] Start: 10-31-2023 Hemoglobin A1c/Hemoglobin.total in Blood HbA1C [facility] Start: 10-30-2023 Influenza vaccination LUNG CANCER SCREENING [facility] Start: 10-30-2023 Screening for malignant neoplasm of lung Lung Cancer Screening [facility] Start: 09-01-2023 Covid-19 Vaccine (5 - Moderna series) Covid-19 Vaccine (5 - Moderna series) [facility] Start: 09-01-2023 Covid-19 Vaccine ( season) Covid-19 Vaccine () [facility] Start: 07-28-2023 Behavioral Health Screening Behavioral Health Screening [facility] Start: 07-17-2023 Hemoglobin A1c/Hemoglobin.total in Blood HBA1C [facility] Start: 07-04-2023 3 comp foot exam completed DIABETIC FOOT EXAM [facility] Start: 07-04-2023 ANNUAL PCP TEAM CHRONIC DISEASE VISIT ANNUAL PCP TEAM CHRONIC DISEASE VISIT [facility] Start: 07-04-2023 BP CONTROLLED (<130/80) BP CONTROLLED (<130/80) [facility] Start: 07-04-2023 Diabetic foot examination Diabetic Foot Exam [facility] Start: 07-04-2023 HEMOGLOBIN/HEMATOCRIT HEMOGLOBIN/HEMATOCRIT [facility] Start: 07-04-2023 Hepatitis B screening URINE ALBUMIN:CREATININE RATIO [facility] Start: 07-04-2023 Hepatitis B surface antibody level LDL CHOLESTEROL [facility] Start: 07-04-2023 SERUM CREATININE SERUM CREATININE [facility] Start: 06-13-2023 End: 09-12-2023 ALBUMIN/CREAT RATIO RND UR ALBUMIN/CREAT RATIO RND UR Lab Routine Type 2 diabetes mellitus with diabetic peripheral angiopathy without gangrene, without long-term current use of insulin (HCC) Expected: 06/13/2023, Expires: 09/12/2023 [facility] Work Phone: Comment on above: Expected: 06/13/2023, Expires: Start: 06-13-2023 End: 09-12-2023 Lipid 1996 panel - Serum or Plasma LIPID PANEL BASIC Lab Routine Hyperlipidemia, unspecified hyperlipidemia type Expected: 06/13/2023, Expires: 09/12/2023 [facility] Work Phone: Comment on above: Expected: 06/13/2023, Expires: 4 Start: 04-17-2023 End: 06-17-2023 Basic metabolic 2000 panel - Serum or Plasma BASIC METABOLIC PNL Lab Routine Type 2 diabetes mellitus with diabetic mononeuropathy, without long-term current use of insulin (HCC) Expected: 04/17/2023, Expires: 06/17/2023 [facility] Work Phone: Comment on above: Expected: 04/17/2023, Expires: 3 Start: 04-17-2023 End: 06-17-2023 CBC panel - Blood by Automated count CBC Lab Routine Acute on chronic respiratory failure with hypoxia (HCC) Expected: 04/17/2023, Expires: 06/17/2023 [facility] Work Phone: Comment on above: Expected: 04/17/2023, Expires: 3 Start: 04-17-2023 End: 06-17-2023 Hemoglobin A1c in Blood HGB A1C Lab Routine Type 2 diabetes mellitus with diabetic mononeuropathy, without long-term current use of insulin (HCC) Expected: 04/17/2023, Expires: 06/17/2023 [facility] Work Phone: Comment on above: Expected: 04/17/2023, Expires: 3 Start: 03-28-2023 Influenza vaccination [facility] Start: 01-31-2023 Hepatitis C antibody, confirmatory test DILATED RETINAL EXAM [facility] Start: 01-14-2023 ANNUAL PCP TEAM CHRONIC DISEASE VISIT ANNUAL PCP TEAM CHRONIC DISEASE VISIT [facility] Start: 01-14-2023 BP CONTROLLED (<130/80) BP CONTROLLED (<130/80) [facility] in Start: 01-14-2023 COLORECTAL CANCER SCREENING COLORECTAL CANCER SCREENING [facility] Comment on above: Postponed from 10/26/1996 (Declined at t his time) Start: 01-14-2023 SERUM CREATININE SERUM CREATININE [facility] Start: 01-02-2023 Hemoglobin A1c/Hemoglobin.total in Blood HBA1C [facility] Start: 12-30-2022 End: 03-01-2023 Comprehensive metabolic 2000 panel - Serum or Plasma [facility] Work Phone: Comment on above: Expected: 12/30/2022, Expires: 3 Start: 12-30-2022 End: 03-01-2023 Fibrin D-dimer FEU [Mass/volume] in Platelet poor plasma [facility] Work Phone: Comment on above: Expected: 12/30/2022, Expires: 3 Start: 12-30-2022 End: 03-01-2023 Natriuretic peptide.B prohormone N-Terminal [Mass/volume] in Serum or Plasma [facility] Work Phone: Comment on above: Expected: 12/30/2022, Expires: 3 Start: 11-02-2022 COVID-19 VACCINE (5 - Moderna series) COVID-19 VACCINE (5 - Moderna series) [facility] Start: 11-01-2022 Influenza vaccination LUNG CANCER SCREENING [facility] Start: 10-05-2022 SERUM CREATININE SERUM CREATININE [facility] Start: 07-28-2022 ADVANCE DIRECTIVE DISCUSSION ADVANCE DIRECTIVE DISCUSSION [facility] Start: 07-28-2022 DEPRESSION ASSESSMENT DEPRESSION ASSESSMENT [facility] Start: 07-16-2022 Hemoglobin A1c/Hemoglobin.total in Blood HBA1C [facility] Start: 06-29-2022 Adult depression screening assessment DEPRESSION SCREENING [facility] Start: 06-29-2022 ANNUAL PCP TEAM CHRONIC DISEASE VISIT ANNUAL PCP TEAM CHRONIC DISEASE VISIT [facility] Start: 06-16-2022 End: 08-16-2022 ALBUMIN/CREAT RATIO RND UR ALBUMIN/CREAT RATIO RND UR Lab Routine Type 2 diabetes mellitus with diabetic peripheral angiopathy without gangrene, without long-term current use of insulin (HCC) Expected: 06/16/2022, Expires: 08/16/2022 [facility] Work Phone: Comment on above: Expected: 06/16/2022, Expires: 3 Start: 06-16-2022 End: 08-16-2022 CBC panel - Blood by Automated count CBC Lab Routine Type 2 diabetes mellitus with diabetic peripheral angiopathy without gangrene, without long-term current use of insulin (HCC) Expected: 06/16/2022, Expires: 08/16/2022 [facility] Work Phone: Comment on above: Expected: 06/16/2022, Expires: 3 Start: 06-16-2022 End: 08-16-2022 Comprehensive metabolic 2000 panel - Serum or Plasma COMP METABOLIC PANEL Lab Routine Type 2 diabetes mellitus with diabetic peripheral angiopathy without gangrene, without long-term current use of insulin (HCC) Expected: 06/16/2022, Expires: 08/16/2022 [facility] Work Phone: Comment on above: Expected: 06/16/2022, Expires: 3 Start: 06-16-2022 End: 08-16-2022 Hemoglobin A1c in Blood HGB A1C Lab Routine Type 2 diabetes mellitus with diabetic peripheral angiopathy without gangrene, without long-term current use of insulin (HCC) Expected: 06/16/2022, Expires: 08/16/2022 [facility] Work Phone: Comment on above: Expected: 06/16/2022, Expires: 3 Start: 06-16-2022 End: 08-16-2022 Lipid 1996 panel - Serum or Plasma LIPID PANEL BASIC Lab Routine Type 2 diabetes mellitus with diabetic peripheral angiopathy without gangrene, without long-term current use of insulin (HCC) Expected: 06/16/2022, Expires: 08/16/2022 [facility] Work Phone: Comment on above: Expected: 06/16/2022, Expires: 3 Start: 05-01-2022 3 comp foot exam completed DIABETIC FOOT EXAM [facility] Start: 04-12-2022 Hepatitis B screening URINE ALBUMIN:CREATININE RATIO [facility] Start: 04-12-2022 Hepatitis B surface antibody level LDL CHOLESTEROL [facility] Start: 03-28-2022 Influenza vaccination INFLUENZA (#1) [facility] Start: 11-28-2021 COVID-19 VACCINE (4 - Booster for Moderna series) COVID-19 VACCINE (4 - Booster for Moderna series) [facility] Start: 11-19-2021 Urine microalbumin profile [facility] Start: 10-10-2021 Hemoglobin A1c/Hemoglobin.total in Blood HBA1C [facility] Start: 09-25-2021 COVID-19 VACCINE (4 - Booster for Moderna series) COVID-19 VACCINE (4 - Booster for Moderna series) [facility] Start: 08-04-2021 Hepatitis C antibody, confirmatory test DILATED RETINAL EXAM [facility] Start: 07-28-2021 ADVANCE DIRECTIVE DISCUSSION ADVANCE DIRECTIVE DISCUSSION [facility] Start: 07-28-2021 DEPRESSION ASSESSMENT DEPRESSION ASSESSMENT [facility] Start: 01-02-2020 BP CONTROLLED (<130/80) BP CONTROLLED (<130/80) [facility] Start: 10-02-2019 COLORECTAL CANCER SCREENING COLORECTAL CANCER SCREENING [facility] Start: 10-02-2019 FECAL OCCULT BLOOD FECAL OCCULT BLOOD [facility] Start: 10-02-2019 Screening for malignant neoplasm of colon [facility] Start: 2011 Hepatitis B Vaccine (1 of 3 - Risk 3-dose series) Hepatitis B Vaccine (1 of 3 - Risk 3-dose series) [facility] Start: 2011 RSV Vaccine (1 - 1-dose 60+ series) RSV Vaccine (1 - 1-dose 60+ series) [facility] Start: 2011 RSV Vaccine (1 - Risk 60-74 years 1-dose series) RSV Vaccine (1 - Risk 60-74 years 1-dose series) [facility] Start: 10-26-2006 Influenza vaccination LUNG CANCER SCREENING [facility] Start: 10-26-2001 SHINGRIX VACCINE (1 of 2) SHINGRIX VACCINE (1 of 2) [facility] Start: 10-26-1996 COLOGUARD (FIT-DNA) COLOGUARD (FIT-DNA) [facility] Start: 10-26-1996 Colonoscopy COLONOSCOPY [facility] Start: 10-26-[address] COLONOGRAPHY [facility] Start: 10-26-1996 Screening for malignant neoplasm of colon [facility] Start: 10-26-1996 SIGMOIDOSCOPY SIGMOIDOSCOPY [facility] Start: 10-26-1981 Zoledronic acid therapy ALPHA-1 ANTITRYPSIN DEFICIENCY SCREENING [facility] End: 08-07-2025 CT Chest for screening WO contrast CT LUNG SCREEN WO IVCON Radiology Routine Cigarette smoker 1 Occurrences starting 07/08/2024 until 08/07/2025 [facility] Work Phone: Comment on above: 1 Occurrences starting 07/08/2024 until 08/07/2025 CT Chest for screeni ng WO contrast CT LUNG SCREEN WO IVCON Radiology Routine Cigarette smoker 07/23/2024 4:01 PM EST [facility] Work Phone: End: 10-13-2025 CT Chest W contrast IV CT CHEST W IVCON Radiology Routine Localized enlarged lymph nodes 1 Occurrences starting 09/13/2024 until 10/13/2025 [facility] Work Phone: Comment on above: 1 Occurrences starting 09/13/2024 until 10/13/2025 CT Chest W contrast IV CT CHEST W IVCON Radiology Routine Localized enlarged lymph nodes 10/11/2024 3:47 PM EDT [facility] Work Phone: End: 11-21-2023 CT LUNG SCREEN WO IVCON CT LUNG SCREEN WO IVCON Radiology Routine Encounter for screening for lung cancer Tobacco use current 1 Occurrences starting 10/22/2022 until 11/21/2023 [facility] Work Phone: Comment on above: 1 Occurrences starting 10/22/2022 until 11/21/2023 End: 11-16-2022 Ct thorax w/o contrast material CT CHEST WO IVCON Radiology Routine Lung nodules 1 Occurrences starting 10/17/2021 until 11/16/2022 [facility] Work Phone: Comment on above: 1 Occurrences starting 10/17/2021 until 11/16/2022 ECG COMPLETE ECG COMPLETE ECG 05/01/2023 1:26 PM EDT [facility] End: 02-21-2023 EPIL EEG ROUTINE EPIL EEG ROUTINE NEUROLOGY Routine Facial weakness 1 Occurrences starting 02/21/2022 until 02/21/2023 [facility] Work Phone: Comment on above: 1 Occurrences starting 02/21/2022 until 02/21/2023 End: 02-14-2024 EPIL EEG ROUTINE EPIL EEG ROUTINE NEUROLOGY Routine Facial weakness Left arm weakness History of stroke 1 Occurrences starting 02/13/2023 until 02/14/2024 [facility] Work Phone: Comment on above: 1 Occurrences starting 02/13/2023 until 02/14/2024 Folate [Moles/volume ] in Serum or Plasma [facility] End: 08-03-2023 LUNG VOLUMES LUNG VOLUMES PFT Routine Chronic bronchitis, unspecified chronic bronchitis type (HCC) 1 Occurrences starting 07/04/2022 until 08/03/2023 [facility] Work Phone: Comment on above: 1 Occurrences starting 07/04/2022 until 08/03/2023 Magnesium measurement [facility] Patient Education Dysphagia Aspiration [facility] Work Phone: Patient referral [facility] Work Phone: PT PLAN OF CARE CERTIFICATION PT PLAN OF CARE CERTIFICATION Procedures Routine Abnormality of gait Lumbar spondylosis History of stroke Ordered: 11/13/2021 [facility] Work Phone: Comment on above: Ordered: 11/13/2021 End: 08-03-2023 SPIROMETRY - BASELINE AND POST DILATOR SPIROMETRY - BASELINE AND POST DILATOR PFT Routine Chronic bronchitis, unspecified chronic bronchitis type (HCC) 1 Occurrences starting 07/04/2022 until 08/03/2023 [facility] Work Phone: Comment on above: 1 Occurrences starting 07/04/2022 until 08/03/2023 SPIROMETRY - BASELIN E AND POST DILATOR SPIROMETRY - BASELINE AND POST DILATOR PFT Routine Chronic bronchitis, unspecified chronic bronchitis type (HCC) 12/25/2022 10:32 AM EDT [facility] Work Phone: End: 12-31-2024 SPIROMETRY WITH DILATOR IF OBSTRUCTED SPIROMETRY WITH DILATOR IF OBSTRUCTED PFT Routine Stage 3 severe COPD by GOLD classification (HCC) 1 Occurrences starting 12/02/2023 until 12/31/2024 [facility] Work Phone: Comment on above: 1 Occurrences starting 12/02/2023 until 12/31/2024 End: 01-30-2024 US DVT LOWER BILATERAL US DVT LOWER BILATERAL Radiology STAT Bilateral lower extremity edema Bilateral lower extremity pain 1 Occurrences starting 12/31/2022 until 01/30/2024 [facility] Work Phone: Comment on above: 1 Occurrences starting 12/31/2022 until 01/30/2024 End: 10-18-2024 XR Chest PA and Lateral XR CHEST 2V FRONTAL/LAT Radiology Routine Chronic obstructive pulmonary disease with (acute) exacerbation (HCC) 1 Occurrences starting 09/19/2023 until 10/18/2024 [facility] Work Phone: Comment on above: 1 Occurrences starting 09/19/2023 until 10/18/2024 XR Chest PA and Lateral XR CHEST 2V FRONTAL/LAT Radiology Routine Chronic obstructive pulmonary disease with (acute) exacerbation (HCC) 09/19/2023 4:03 PM EST [facility] Work Phone: End: 12-03-2024 XR Toes - right 3 Views XR TOE AP/LAT/OBL RIGHT Radiology Routine Contusion of right great toe without damage to nail, initial encounter 1 Occurrences starting 11/04/2023 until 12/03/2024 [facility] Work Phone: Comment on above: 1 Occurrences starting 11/04/2023 until 12/03/2024 XR Toes - right 3 Views XR TOE A P/LAT/OBL RIGHT Radiology Routine Contusion of right great toe without damage to nail, initial encounter 11/04/2023 2:23 PM EDT [facility] Work Phone: [facility] OR [facility] OR [facility] Immunizations Immunization Date Immunization Notes Care Provider Fa dave 05-21-2024 COVID-19 vaccine, ag e 12+ yr (PFIZER-BIONTECH COMIRNATY) Olu Meiernafisa Work Phone: [facility] 05-21-2024 influenza, high dose seasonal, preservative-free Olumarielena Miller Work Phone: [facility] 05-21-2024 respiratory syncytia l virus (RSV), unspecified formulation Olumarielena Miller Work Phone: [facility] 05-01-2023 COVID-19 vaccine, ag e 12+ yr, season (PFIZER-BIONTECH) Gabby Older ORTHOTIC TECHNICIAN.WINERY WORKER Work Phone: [facility] 05-01-2023 influenza (HD-IIV4) vaccine, age 65+ yr, high dose, quadrivalent, PF (FLUZONE HIGH-DOSE) Gabby Older ORTHOTIC TECHNICIAN.WINERY WORKER Work Phone: [facility] 05-01-2023 influenza virus vacc ine, unspecified formulation Olumarielena Miller Work Phone: [facility] 07-04-2022 COVID-19 booster vaccine, age 12+ yr, bivalent (PFIZER-BIONTECH) Royce Carroll MD Work Phone: [facility] Work Phone: 07-04-2022 influenza, high-dose , quadrivalent vaccine (FLUZONE HIGH DOSE QUADRIVALENT) Royce Carroll MD Work Phone: [facility] Work Phone: 07-04-2022 influenza virus vacc ine, unspecified formulation Tabatha Jarrett MD Work Phone: [facility] 07-31-2021 COVID-19 vaccine, ag e 12+ yr (PFIZER-BIONTECH - PURPLE TOP) Jocelyne Mcknight ORTHOTIC TECHNICIAN.WINERY WORKER Work Phone: [facility] Work Phone: 04-28-2021 influenza, high-dose , quadrivalent vaccine (FLUZONE HIGH DOSE QUADRIVALENT) Jocelyne Revahausen ORTHOTIC TECHNICIAN.[facility] Work Phone: [facility] Work Phone: 12-02-2020 COVID-19 vaccine, fu ll dose (MODERNA) Jocelyne Ardonhausen ORTHOTIC TECHNICIAN.WINERY WORKER Work Phone: [facility] 11-02-2020 COVID-19 vaccine, fu ll dose (MODERNA) Jocelyne Ardonhausen ORTHOTIC TECHNICIAN.WINERY WORKER Work Phone: [facility] 05-19-2020 influenza, high-dose , quadrivalent vaccine (FLUZONE HIGH DOSE QUADRIVALENT) Jocelyne Revahausen ORTHOTIC TECHNICIAN.[facility] Work Phone: [facility] 04-08-2019 influenza, high dose seasonal, preservative-free Jocelyne Dahlhausen ORTHOTIC TECHNICIAN.[facility] Work Phone: [facility] Work Phone: 04-01-2018 influenza, high dose seasonal, preservative-free Jocelyne Dahlhausen ORTHOTIC TECHNICIAN.WINERY WORKER Work Phone: [facility] Work Phone: 04-01-2018 pneumococcal polysaccharide vaccine, 23 valent Jocelyne Ardonhausen ORTHOTIC TECHNICIAN.[facility] Work Phone: [facility] Work Phone: 04-01-2017 influenza, high dose seasonal, preservative-free Jocelyne Revahausen ORTHOTIC TECHNICIAN.WINERY WORKER Work Phone: [facility] 12-10-2016 pneumococcal conjuga te vaccine, 13 valent Jocelyne Dalyrichausen ORTHOTIC TECHNICIAN.[facility] Work Phone: [facility] 05-02-2016 influenza, injectabl e, quadrivalent, contains preservative Jocelyne Dahlhausen ORTHOTIC TECHNICIAN.WINERY WORKER Work Phone: [facility] 05-24-2015 influenza, injectabl e, quadrivalent, contains preservative Jocelyne Dahlhausen ORTHOTIC TECHNICIAN.WINERY WORKER Work Phone: [facility] 05-24-2014 influenza, seasonal, injectable Jocelyne Dalyrichausen ORTHOTIC TECHNICIAN.[facility] Work Phone: [facility] 05-24-2013 influenza virus vacc ine, unspecified formulation Jocelyne Dahlhausen ORTHOTIC TECHNICIAN.[facility] Work Phone: [facility] 05-25-2012 influenza virus vacc ine, unspecified formulation Jocelyne Dahlhausen ORTHOTIC TECHNICIAN.[facility] Work Phone: [facility] Work Phone: 11-20-2011 tetanus toxoid, redu everton diphtheria toxoid, and acellular pertussis vaccine, adsorbed Jocelyne Dahlhausen ORTHOTIC TECHNICIAN.[facility] Work Phone: [facility] Work Phone: 05-20-2011 influenza virus vacc ine, unspecified formulation Jocelyne Dahlhausen ORTHOTIC TECHNICIAN.[facility] Work Phone: [facility] 05-15-2010 influenza virus vacc ine, unspecified formulation Jocelyne Dahlhausen ORTHOTIC TECHNICIAN.[facility] Work Phone: [facility] 05-18-2009 influenza virus vacc ine, unspecified formulation Jocelyne Dahlhausen ORTHOTIC TECHNICIAN.[facility] Work Phone: [facility] 06-07-2008 influenza virus vacc ine, unspecified formulation Jocelyne Dahlhausen ORTHOTIC TECHNICIAN.[facility] Work Phone: [facility] [facility] Work Phone: 01-27-2008 pneumococcal polysaccharide vaccine, 23 valent Jocelyne Dalyrichausen ORTHOTIC TECHNICIAN.[facility] Work Phone: [facility] Work Phone: Payers Date Payer Category Payer Medicare (Managed Care) BHAVNA ARMENTA [id number] 2024 Private Health Insurance [id number] 2024 Unknown [id number] 2023 Self-pay 2022 Medicare [id number] 2022 Private Health Insurance [id number] 2017 Unknown ANTHEM BLUE CROS S AND BLUE SHIELD ANTHEM MEDIBLUE O [id number] 2017-Present [phone] [address] [place] [address] O [id number] 2017 Unknown ANTHEM BLUE CROS S AND BLUE SHIELD ANTHEM MEDIBLUE O [id number] 2017-Present [phone] [address] [place] [id number] O [id number] 2015 Unknown VANESSA PRIMETIME H EALTH PLAN O [id number] Unknown [id number] [id number] 62 Unknown [id number] 2.16.840.1.370779.3.579.2.4 62 Unknown [id number] 2.16.840.1.803568.3.579.2.4 62 Unknown [id number] 2.16.840.1.274658.3.579.2.4 62 Unknown [id number] 2.16.840.1.205217.3.579.2.4 62 Unknown [id number] 2.16.840.1.400195.3.579.2.4 62 Unknown [id number] 2.16.840.1.591958.3.579.2.4 62 Unknown [id number] 2.16.840.1.440731.3.579.2.4 62 Unknown [id number] 2.16.840.1.234222.3.579.2.4 62 Unknown [id number] 2.16.840.1.035283.3.579.2.4 62 Unknown [id number] 2.16.840.1.740022.3.579.2.4 62 Unknown [id number] 2.16.840.1.038336.3.579.2.4 62 Unknown [id number] 2.16.840.1.031111.3.579.2.4 62 Unknown [id number] 2.16.840.1.945686.3.579.2.4 62 Unknown [id number] 2.16.840.1.825138.3.579.2.4 62 Unknown [id number] 2.16.840.1.772800.3.579.2.4 62 Unknown [id number] 2.16.840.1.356744.3.579.2.4 62 Unknown [id number] 2.16.840.1.829911.3.579.2.4 62 Social History Date Type Detail Facility Start: 08-01-2021 End: 03-22-2024 Tobacco smoking status NHIS Ex-smoker [facility] Start: 1967 End: 12-11-2022 History of tobacco use Current smoker [facility] Start: 1967 End: 12-11-2022 History of tobacco use Cigarette Smoker [facility] Start: 08-01-2021 End: 12-24-2022 Cigarettes smoked current (pack per day) - Reported 1 [facility] Work Phone: Start: 08-01-2021 End: 09-27-2024 Tobacco use and exposure Smokeless tobacco non-user [facility] Start: 10-04-2021 End: 11-17-2024 Alcohol intake Ex-drinker (finding) [facility] Start: 06-29-2021 End: 07-04-2022 History SDOH Alcohol Frequency 1 [facility] Start: 06-29-2021 History SDOH Alcohol Comment rare NAB [facility] Start: 11-14-2020 Tobacco Comment 4-5 cigarettes/day in 2020. [facility] Start: 1950 Sex Assigned At Not on file [facility] Start: 09-24-2021 End: 02-21-2022 Exposure to SARS-CoV-2 (event) Not sure [facility] Start: 10-30-2021 End: 11-05-2024 Tobacco smoking status NHIS Smokes tobacco daily [facility] Start: 10-30-2021 Tobacco Comment 4-5 cigarettes/day in 2020. 10/30/21 smokes 1 cig a day [facility] Start: 01-14-2022 Tobacco Comment 4 cigarrettes per day 01/14/22 [facility] Start: 07-04-2022 History SDOH Alcohol Frequency 2 [facility] Start: 07-04-2022 History SDOH Alcohol Std Drinks 0 [facility] Start: 07-04-2022 History SDOH Social Connections Phone 5 [facility] Start: 07-04-2022 History SDOH Social Connections Living 3 [facility] Start: 07-04-2022 History SDOH Physical Activity DPW 7 [facility] Start: 07-04-2022 Tobacco Comment 1-4 cigarrettes per day 01/14/22 [facility] Start: 07-04-2022 End: 12-24-2022 Social connection and isolation panel [facility] Work Phone: Do you belong to any clubs or organizations such as mormonism groups, unions, fraternal or athletic groups, or school groups? No [facility] Work Phone: Are you now , , , , never or living with a partner? [facility] Work Phone: How often to you hav e a drink containing alcohol? Monthly or less [facility] Work Phone: How many standard dr inks containing alcohol do you have on a typical day? Patient does not drink [facility] Work Phone: How often do you hav e 6 or more drinks on 1 occasion? Never [facility] Work Phone: Do you feel stress - tense, restless, nervous, or anxious, or unable to sleep at night because your mind is troubled all the time - these days [OSQ] Only a little [facility] Work Phone: Start: 05-28-2023 Tobacco Comment Smokers in the home. [facility] Start: 12-11-2022 Tobacco smoking status PAIS Unknown if ever smoked [facility] Start: 03-25-2016 None [facility] Start: 03-25-2016 Spouse/ Significant Other [facility] Start: 03-25-2016 Non-smoker [facility] Start: 1950 Sex Assigned At Male [facility] Start: 1966 End: 09-03-2024 Tobacco smoking status NHIS Occasional tobacco smoker [facility] Start: 09-03-2024 Tobacco Comment Smokers in the home. 3 cigarettes per day [facility] Start: 11-03-2024 End: 11-12-2024 Sex Male (finding) [facility] (I/We) worried whetaj er (my/our) food would run out before (I/we) got money to buy more. Never true [facility] Start: 01-04-2025 Tobacco smoking status PAIS Current Light tobacco smoker [facility] Medical Equipment Procedure Code Equipment Code Equipment Origin al Text Equipment Identifier Dates [id number], [id number] Start: 08-08-2021 End: 12-18-2023 Comment on above: Check blood glucose once daily. Dx: E11.49, Non-Insulin dependent. Check blood glucose once daily. Dx: E11.40. Non-Insulin dependent. Test blood sugar(s) 2 times daily. Dx: Other DM Code E11.41 Insulin: No Lens Acrysof Ultrasert +18.5 Diopter Acrylic Iol 1 Piece Foldable Uv Blue - [id number] Start: 05-06-2023 Lens Acrysof Ultrasert +18 Diopter Acrylic Iol 1 Piece Foldable Uv Blue - [id number] Start: 07-08-2023 Goals Date Patient Goal Desired Activity /State Personal health goal Functional Status Date Assessment Result Facility 11-12-2024 Functional status Bathroom Privilege [facility] Work Phone: 11-11-2024 Functional status Tolerates Activity Fair [facility] Work Phone: 09-27-2024 Total score [AUDIT-C] 0 09/28/19 1:50 PM Royce Wright MD [facility] 11-22-2014 Are you deaf, or do you have serious difficulty hearing No 11/22/2014 1:02 PM EDT Lizbeth Davis Cma No [facility] 11-22-2014 Are you blind, or do you have serious difficulty seeing, even when wearing glasses No 11/22/2014 1:02 PM EDT Lizbeth Davis Cma No [facility] 11-22-2014 Do you have serious difficulty walking or climbing stairs Yes 11/22/2014 1:02 PM EDT Lizbeth Davis Cma Yes [facility] 11-22-2014 Do you have difficul ty dressing or bathing Yes 11/22/2014 1:02 PM EDT Lizbeth Davis Cma Yes [facility] 11-22-2014 Because of a physica l, mental, or emotional condition, do you have difficulty doing errands alone such as visiting a physician's office or shopping Yes 11/22/2014 1:02 PM EDT Lizbeth Davis Cma Yes [facility] Mental Status Date Assessment Result Facility 11-12-2024 Cognitive function Voice/Name [facility] Work Phone: 11-22-2014 Because of a physica l, mental, or emotional condition, do you have serious difficulty concentrating, remembering, or making decisions No 11/22/2014 1:02 PM EDT Lizbeth Davis Cma No [facility] Clinical Notes 10-19-2010 to 01-04-2025 Note Date & Type Note Facility 01-04-2025 Discharge summary [facility] 01-04-2025 Discharge summary Note Date/Time January 04, 2025 5:38pm [facility] [address] [place] [address] Emergency Department Summary 01/04/25 MR#: [id number] Acct: [id number] Name: KAM GREENBERG Rep #:[id number] : 1950 74 From: Yoav Ledezma PCP: Dr. oRyce Carroll MD Status:A DM IN Location: [place] [address] HPI History of Present Illness Chief Complaint: Shortness of Breath Informant: patient and EMS Narrative Narrative: Brought in by EMS from home increasing dyspnea. History of COPD chronic 4 to 5 L oxygenation. Intermittent tobacco use. Coronary disease with 3 stents in thepast on baby aspirin. Out of his nebulizer medicines were 2 days typically use it 4 times a day. Increasing dyspnea and wheeze status post DuoNeb by EMS. Denies cough denies chest pains. He is a diabetic he does not check his sugars. Denies fevers. Prior similar symptoms: Yes PFSH PFSH Medical History LV dysfunction Chest pain Elevated troponin Essential hypertension Macrocytic anemia Respiratory insufficiency COPD exacerbation Aspiration pneumonia Coronary artery disease History of TIA (transient ischemic attack) COPD exacerbation Essential tremor Stage 3a chronic kidney disease (CKD) Diabetes mellitus, type 2 CAD (coronary artery disease) History of CVA (cerebrovascular accident) Tobacco use Hyperlipidemia COPD (chronic obstructive pulmonary disease) Hypertension Home Medications ?Medication ?Instructions ?Recorded ?Last Taken ?Type clopidogrel 75 mg tablet 75 mg PO DAILY Check with pr imary 03/24/16 Unknown History doctor metoprolol tartrate 50 mg tablet 50 mg PO BID Check wi th primary 03/24/16 01/04/25 History doctor amlodipine 5 mg tablet 5 mg PO DAILY Check with daniella castellano 12/11/22 12/10/22 History doctor sertraline 100 mg tablet 100 mg PO DAILY Check with p dasha 12/11/22 01/03/25 History doctor albuterol sulfate 2.5 mg/3 mL 2.5 mg (3 mL) inhalation Q2H PRN 12/17/22 12/10/22 Rx (0.083 %) solution for nebulization PRN shortness of b reath or wheezing #1 mL ipratropium 0.5 mg-albuterol 3 mg 3 ml inhalation 4X/D AY #120 mL 12/17/22 Unknown Rx (2.5 mg base)/3 mL nebulization soln albuterol sulfate 90 mcg/actuation 2 puff inhalation Q 4H PRN PRN 11/03/24 01/04/25 History aerosol inhaler wheezing atorvastatin 40 mg tablet 40 mg PO QHS cholesterol 04/2101/03/25 History fluticasone fur. 100 mcg-umeclid 1 ea inhalation DAILY 11/03/24 01/03/25 History 62.5 mcg-vilant 25 mcg inhalat.powder (Trelegy Ellipta) fluticasone propionate 50 1 spray intranasal BID 11/03 Unknown History mcg/actuation nasal spray,suspension metformin 500 mg tablet 500 mg PO BID 11/03/2401/04 History potassium chloride 20 mEq 20 meq PO DAILY #30 tabs 01/03/25 Rx tablet,extended release(part/cryst) (Klor-Con M) losartan 50 mg tablet 50 mg PO DAILY 01/04/25 Unkn own History nitroglycerin 0.4 mg sublingual 0.4 mg sublingual PRN PRN angina 01/04/25 Unknown History tablet primidone 50 mg tablet 50 mg PO BID 01/04/25 Unknow n History Allergy/AdvReac Type Severity Reaction Status Date / Time acetaminophen (From Tylenol) Allergy Unknown Verified 01/04/25 12:11 morphine Allergy Other Verified 01/04/25 12:11 oyster extract Allergy Unknown Verified 01/04/25 12:11 lisinopril AdvReac Other Verified 01/04/25 12:11 Family History Mother Cancer Brain cancer, unclear type. Son Cancer Youngest son, metastatic testicular cancer. Father Heart disease Hypertension CVA (cerebral vascular accident) Surgical History S/P appendectomy H/O right inguinal hernia repair S/P bilateral foot surgery S/P triple vessel bypass H/O heart artery stent Social History household members: spouse current occupational status: retired Smoking Status: Light Smoker (<10/day) how long ago did patient quit smoking: Smoked since 1967, up to 1 ppd, recent down to 1 pk/4-5 days. alcohol intake: current alcohol intake frequency: holidays/special occasions only substance use type: does not use ROS ROS ED Constitutional Constitutional ED: Denies chills, fever(s) or sweats ENT ENT ED: Denies sore throat Cardiovascular Cardiovascular: Denies chest pain, leg edema, palpitations or racing heartbeat Respiratory/Chest Respiratory/Chest: Reports dyspnea; Denies cough or dyspnea on exertion Gastrointestinal Gastrointestinal: Denies abdominal pain, diarrhea, nausea or vomiting Genitourinary Genitourinary ED: Denies dysuria, hematuria or urinary frequency Musculoskeletal Musculoskeletal: Denies back pain, extremity pain or neck pain Integumentary Denies rash or wounds Neurologic Neurologic: Denies headache(s), paresthesias or weakness EXAM Physical Exam Const Vital Signs: 01/04/25 12:08 01/04/25 12:10 01/04/25 12:11 Temperature 98.7 F 98.7 F Temperature Source Oral Oral Pulse Rate 108 H 107 H Respiratory Rate 37 H 32 H Respiratory Effort Non-Labored Short of Breath Respiratory Depth Shallow Respiratory Pattern Tachypnea Blood Pressure 147/73 H 146/85 H Blood Pressure Mean 97 105 Pulse Ox 92 106 Oxygen Delivery Method Nasal Cannula Nasal Cannula Nasal Cannula Oxygen Flow Rate (L/min) 5 5 01/04/25 12:24 01/04/25 12:58 01/04/25 13:00 Temperature Temperature Source Pulse Rate 103 H Respiratory Rate 32 H Respiratory Effort Respiratory Depth Respiratory Pattern Tachypnea Blood Pressure Blood Pressure Mean Pulse Ox 85 Oxygen Delivery Method Room Air Nasal Cannula Oxygen Flow Rate (L/min) 5 01/04/25 13:10 01/04/25 14:00 01/04/25 14:57 Temperature 98.8 F 98.8 F Temperature Source Oral Oral Pulse Rate 98 98 104 H Respiratory Rate 26 H 22 H 21 H Respiratory Effort Respiratory Depth Respiratory Pattern Blood Pressure 150/85 H 150/80 H 149/107 H Blood Pressure Mean 106 103 121 Pulse Ox 99 99 98 Oxygen Delivery Method Nasal Cannula Nasal Cannula Oxygen Flow Rate (L/min) 5 5 01/04/25 15:22 01/04/25 15:23 Temperature 98.8 F Temperature Source Oral Pulse Rate 107 H Respiratory Rate 36 H Respiratory Effort Respiratory Depth Respiratory Pattern Blood Pressure 156/75 H Blood Pressure Mean 102 Pulse Ox 93 87 Oxygen Delivery Method Nasal Cannula Nasal Cannula Oxygen Flow Rate (L/min) 5 5 Positive well nourished and well developed Constitutional Narrative: 5 L nasal cannula, speaking short sentences General Appearance ED: well developed and NAD HEENT Reports moist mucous membranes normocephalic and atraumatic Eyes General Eye ED: Yes normal appearance of both eyes Neck full ROM Chest Wall Chest: Negative for tenderness Resp Resp Narrative: Mild tachypnea, no distress with wheezing noted. Symmetric breath sounds. Effort and Inspection: symmetric chest movement and respiratory distress Cardio regular rhythm and no murmurs Peripheral Pulses: pulses 2+ throughout GI normal to inspection, nondistended, normoactive bowel sounds and non-tender Palpation: Negative for guarding or rebound tenderness present Extremity normal to inspection General Extremety ED: Negative for edema or tenderness General Extremity: Negative for edema Neuro oriented x3 and no sensory deficits noted Sensorium / Orientation: awake and alert Skin no rashes or lesions noted and no wounds MDM MDM MDM Narrative Medical decision making narrative: Interventions / MDM: Differential diagnosis: COPD exacerbation, hypoxia Diagnosis considered but do not suspect: N/A My EKG interpretation: Sinus rate of 109, no ST changes, QTc 430. Imaging independently reviewed and interpreted by myself: 1 view chest x-ray: Stable chronic findings for interstitial lung disease and fibrosis. Also read by radiology. External documents reviewed: N/A Test considered but not ordered:N/A ED course: 5 L nasal cannula speaking short sentences with slight tachypnea. Out of his nebulizer for 2 days he was given treatment by EMS. Will stack additional albuterol treatments will check chest x-ray labs EKG. Will obtain blood glucose fingerstick for plans of steroids with his wheezing. Will reevaluate. Clinically feeling better stable on 5 L oxygen. Labs white count 16.9 stable anemia hemoglobin 9.9. Creatinine 1.3. Attempted to ambulate however states with moving on the bed pulse ox dropped in the 80s. Improved with rest. Glucose 184 in the lab. Solu-Medrol 60 mg given IV doxycycline ordered. I discussed with hospitalist Dr. Govea for admission. Re-evaluation: stable Disposition discussed with patient/family/significant other: Patient Case discussed with consulting clinician: Hospitalist This note was generated with Meijobation software. It may contain incorrectwords, spelling, and punctuation that were not noted in checking the note beforesigning. Lab Data Labs: Laboratory Results - last 24 hr 01/04/25 11:50 WBC 16.9 H RBC 2.96 L Hgb 9.9 L Hct 31.1 L MCV 105.1 H MCH 33.4 H MCHC 31.8 L RDW Std Deviation 53.4 H RDW Coeff of Christine 14.1 Plt Count 266 MPV 10.0 Immature Gran % (Auto) 0.500 Neut % (Auto) 83.8 H Lymph % (Auto) 8.4 L Appling % (Auto) 6.5 Eos % (Auto) 0.6 Baso % (Auto) 0.2 Absolute Neuts (auto) 14.2 H Absolute Lymphs (auto) 1.42 Nucleated RBC % 0 Sodium 142 Potassium 4.7 Chloride 95 L Carbon Dioxide 38.9 H Anion Gap 7 BUN 23 H Creatinine 1.30 H Estim Creat Clear Calc 57.19 Est GFR (MDRD) Non-Af 58 L BUN/Creatinine Ratio 17.9 Glucose 184 H Calcium 9.3 Radiography Diagnostic Testing: Clinical Impression(s) from Imaging Studies Chest X-Ray 01/04/25 13:00 IMPRESSION: Central vascularity appears mildly increased. There persistent interstitial and alveolar infiltrates throughout the lower lungfields with blunting of the costophrenic angle on the right and left consistent with trace effusions, similar to the prior, consistent with interstitial lung disease and fibrosis. Reading Location: [facility] Discharge Plan Triage Chief Complaint: Shortness of Breath ED Provider: Yoav Alcaraz Dx/Rx/DC Orders Clinical Impression: COPD exacerbation, Hypoxia, Diabetes Primary Care Provider: Royce Carroll Disposition Disposition: Acute Care Hospital [facility] What to do if you have Problems For any increased pain, shortness of breath, bleeding, nausea or vomiting, chestpain, or any unexpected problems, contact your Primary Care Provider. Call [facility] ([phone]) or report to the closest Emergency Room. Call 911 if necessary. 01/04/25 0602 <Electronically signed by Yoav Ledezma> Cosigner Signature (if applicable): CC: Dr. Royce Carroll MD ~ Signed [facility] Work Phone: 1(672) 909-696406-10-2025 Radiology Diagnostic study note [facility] Imaging Services [address] [place], [place] [address] Chest 1 View (Portable) MR#: [id number] Acct: [id number] Name: KAM GREENBERG Rep #: [id number] : 1950 M 74 From: Red Sanchez MD PCP: Dr. Royce Carroll MD Status: R EG ER Study:Chest 1 View (Portable) Date of Exam: 01/04/25 Exam# [id number] Ordering Dr: Yoav Alcaraz DO PROCEDURE: CHEST 1 VIEW (PORTABLE) 01/04/2025 REASON FOR EXAM: SOB TECHNIQUE: Frontal view of the chest. COMPARISON: November 03, 2024 FINDINGS: Sternotomy wires are noted with vascular markers, unchanged. Heart size is upper normal. Central vascularity appears mildly increased. There persistent interstitial and alveolar infiltrates throughout the lower lung kahn with blunting of the costophrenic angle on the right and left consistent with trace effusions, similar to the prior, consistent with interstitial lung disease and fibrosis. There is no pneumothorax. There is no visible acute bonyabnormality. Aortic calcifications are visible. RAD/Chest 1 View (Portable) IMPRESSION: Central vascularity appears mildly increased. There persistent interstitial and alveolar infiltrates throughout the lower lungfields with blunting of the costophrenic angle on the right and left consistent with trace effusions, similar to the prior, consistent with interstitial lung disease and fibrosis. Reading Location: [place] CC: Dr. Yoav Alcaraz DO; Dr. Royce Carroll MD ~ Lumber Sticker: Signed [facility]05-14-2025 NoteHNO ID: [id number] Author: ASHISH SAHA RN Service: ? Author Type: Registered Nurse Type: Progress Notes Filed: 12/08/2024 09:40 Note Text: Transitional Care Management (TCM) Follow-Up Note PCP Update / Actionable Items N/A - No specialty updates needed Patient Source: [id number] (OON) Discharge Outreach Summary: Patient doing well from his recent hospital stay. He is breathing well and wearing his oxygen. He denies chest pain, fever, chills, or wheezing. He reports an occasional cough. Patient is able to speak in complete sentences during phone call without difficulty. Patient aware to contact Royce Carroll MD office for any needs or concerns. Contact: Contact made with patient: Yes Spoke to: Patient Validation: Validated the person spoken to is actively involved in the patient's care. The patient was identified by Name and Date of . I'd like to get an update on how you're doing since our last phone call. Is now a good time to talk? Yes Symptoms: Are you feeling about the same, better or worse since leaving the hospital? Better Weekly Outreach: 2nd Outreach Medications: Do you have any questions about taking your medications, including which medications you should be on, or do you need refills on your medications? No Patient Questions / Concerns: Do you have any questions related to your discharge? No Appointment / TCM Follow-Up: Have you had a follow-up visit with your Primary Care Provider or Specialist since you were discharged? Yes Do you need any assistance with scheduling or changing your follow-up appointments? Patient already has an appointment scheduled SDOH: Has Food and Housing been addressed in [employer] D[employer] in the past 3 months? Yes EDUCATION--: N/A Ashish Saha RN December 08, 2024 9:[address] [facility]05-14-2025 History of Present illness Narrative* Ashish Saha RN - 12/08/2024 9:34 AM EDT Transitional Care Management (TCM) Follow-Up Note PCP Update / Actionable Items N/A - No specialty updates needed Patient Source: [id number] (OON) Discharge Outreach Summary: Patient doing well from his recent hospital stay. He is breathing well and wearing his oxygen. He denies chest pain, fever, chills, or wheezing. He reports an occasional cough. Patient is able to speak in complete sentences during phone call without difficulty. Patient aware to contact Royce Carroll MD office for any needs or concerns. Contact: Contact made with patient: Yes Spoke to: Patient Validation: Validated the person spoken to is actively involved in the patient's care. The patient was identified by Name and Date of . I'd like to get an update on how you're doing since our last phone call. Is now a good time to talk? Yes Symptoms: Are you feeling about the same, better or worse since leaving the hospital? Better Weekly Outreach: 2nd Outreach Medications: Do you have any questions about taking your medications, including which medications you should be on, or do you need refills on your medications? No Patient Questions / Concerns: Do you have any questions related to your discharge? No Appointment / TCM Follow-Up: Have you had a follow-up visit with your Primary Care Provider or Specialist since you were discharged? Yes Do you need any assistance with scheduling or changing your follow-up appointments? Patient alreadyhas an appointment scheduled SDOH: Has Food and Housing been addressed in [employer] in the past 3 months? Yes EDUCATION--: N/A Ashish Saha RN December 08, 2024 9:40 AM [facility] NotePatient Outreach ([facility]) KAM GREENBERG ([id number]) 1950 M Date Time Provider Department 12/08/24 ASHISH SAHA [facility] During your visit today, we recorded the following information about you: Ashish Saha RN 12/08/2024 9:40 AM Signed Transitional Care Management (TCM) Follow-Up Note PCP Update / Actionable Items N/A - No specialty updates needed Patient Source: Hne-qw-Xcuforo (OON) Discharge Outreach Summary: Patient doing well from his recent hospital stay. He is breathing well and wearing his oxygen. He denies chest pain, fever, chills, or wheezing. He reports an occasional cough. Patient is able to speak in complete sentences during phone call without difficulty. Patient aware to contact Royce Carroll MD office for any needs or concerns. Contact: Contact made with patient: Yes Spoke to: Patient Validation: Validated the person spoken to is actively involved in the patient's care. The patient was identified by Name and Date of . I'd like to get an update on how you're doing since our last phone call. Is now a good time to talk? Yes Symptoms: Are you feeling about the same, better or worse since leaving the hospital? Better Weekly Outreach: 2nd Outreach Medications: Do you have any questions about taking your medications, including which medications you should be on, or do you need refills on your medications? No Patient Questions / Concerns: Do you have any questions related to your discharge? No Appointment / TCM Follow-Up: Have you had a follow-up visit with your Primary Care Provider or Specialist since you were discharged? Yes Do you need any assistance with scheduling or changing your follow-up appointments? Patient already has an appointment scheduled SDOH: Has Food and Housing been addressed in [employer] in the past 3 months? Yes EDUCATION--: N/A Ashish Saha RN December 08, 2024 9:40 AM Allergies As of Date: 12/08/2024 Noted Allergy Reaction LISINOPRIL 11/15/2019 18 - Angioedema MORPHINE 06/07/2008 12 - Shortness of Breath Comments: rapid heart rate OYSTERS 04/01/2017 8 - GI Upset TYLENOL (ACETAMINOPHEN) 10/16/2005 13 - Dystonia Comments: flushed, cold sweats, shakey Date Reviewed: 12/03/2024 Reviewed by: Xi Finn LPN - Fully Assessed Prescriptions as of 12/08/2024 - predniSONE (DELTASONE) 20 mg tablet Take 20 mg by mouth once daily. - melatonin 10 mg tab Take 1 tablet by mouth daily at bedtime. Pt told [facility] nurse he is taking. - diphenhydramine HCl (SLEEP AID, DIPHENHYDRAMINE, ORAL) Take 1 capsule by mouth daily at bedtime. Pt told [facility] nurse he is taking. - calcium carbonate (TUMS ULTRA ORAL) Take by mouth as needed. Pt told [facility] nurse he is taking. - loperamide HCl (IMODIUM ORAL) Take by mouth as needed. Pt told [facility] nurse he is taking. - guaifenesin/dextromethorphan (MUCINEX DM ORAL) Take by mouth as needed. Pt told [facility] nurse he is taking. - Ibuprofen 200 mg cap Take by mouth as needed. Pt told [facility] nurse he is taking. - furosemide (LASIX) 40 mg tablet Take 40 mg by mouth once daily. From [facility] discharge note 11/12 - potassium chloride ER (KLOR-CON M20) 20 mEq tablet Take 20 mEq by mouth once daily. From [facility] discharge note 11/12 - albuterol (PROVENTIL) 2.5 mg /3 mL (0.083 %) nebulizer solution Use 2.5 mg via nebulizer every 2 hours as needed for wheezing/shortness of breath. From [facility] discharge note 11/12 - losartan (COZAAR) 50 mg tablet Take 1 tablet by mouth once daily. - nitroglycerin sublingual (NITROQUICK) 0.4 mg SL tablet Dissolve 1 tablet under the tongue as needed for chest pain. If no pain relief call 911. - ipratropium-albuterol (DUONEB) 0.5 mg-3 mg(2.5 mg base)/3 mL nebu Inhale 3 mL as instructed four times daily. - atorvastatin (LIPITOR) 40 mg tablet Take 1 tablet by mouth daily at bedtime. - clopidogrel (PLAVIX) 75 mg tablet Take 1 tablet by mouth once daily. - fluticasone (FLONASE) 50 mcg/actuation nasal spray Use 1 [place] in each nostril two times a day. - metFORMIN (GLUCOPHAGE) 500 mg tablet Take 1 tablet by mouth two times a day with meals. - metoprolol tartrate, short acting, (LOPRESSOR) 50 mg tablet Take 1 tablet by mouth two times a day. - sertraline (ZOLOFT) 100 mg tablet Take 1 tablet by mouth once daily. - primidone (MYSOLINE) 50 mg tablet Take 1 tablet by mouth two times a day. - yonpglasyeq-odcvwddmj-nrvqfwew (TRELEGY ELLIPTA) 100-62.5-25 mcg inhalation powder Inhale 1 Puff as instructed once daily. - blood sugar diagnostic (BLOOD GLUCOSE TEST) test strip Test blood sugar(s) 2 times daily. Dx: Other DM Code E11.41 Insulin: No - albuterol HFA (VENTOLIN HFA) 90 mcg/actuation inhaler Inhale 2 Puffs as instructed every 4 hours as needed for wheezing/shortness of breath. - Blood-Glucose Meter monitoring kit Glucose Meter of Choice - Kit (more content not included)...[facility]05-09-2025 NoteHNO ID: [id number] Author: OLU MILLER, ? Service: ? Author Type: Physician Type: Progress Notes Filed: 12/05/2024 09:28 Note Text: Last saw pcp: 11/17/24 Subjective: Patient presents to clinic c/o painful toenails. They state that the nails are especially painful with shoe gear and pressure. Patient states that nails 1-5 b/l are painful. No other pedal complaints at this time. Patient states no change in medications or medical history since last visit. Objective: Patient presents to clinic ambulating in [facility] Vasc: DP and PT pulses are nonpalpable bilateral. CFT is less than 5 seconds bilateral. Skin temperature is warm to cool proximal to distal bilateral. There is mild edema or varicosities noted. Neuro: Protective sensation is absent to the foot and toes when tested with the 5.07 SWM bilateral. Vibratory sensation is absent at the hallux IPJ bilateral. The hallux is downgoing bilateral. Derm: Nails 1-5 b/l are painful, discolored-yellow, thick, crumbly, dystrophic and with subungal debris. Skin is of normal turgor, texture and hair growth is absent bilateral. There are no hyperkeratosis, ulcerations, scars, verruca or other lesions noted. Ortho: Muscle strength is 5/5 for all pedal groups tested. Ankle joint DF is decreased with the knee extended with no pain or crepitus noted. 1st MPJ ROM is decreased bilateral. Hammertoe is present to b/l 2nd toe Assessment: (B35.1) Onychomycosis (primary encounter diagnosis) (M79.675) Pain in toe of left foot (M79.674) Pain in toe of right foot (E11.42) Diabetic polyneuropathy associated with type 2 diabetes mellitus (HCC) (L85.9) Hyperkeratosis (M20.40) Hammer toe, unspecified laterality Plan: Patient was seen and evaluated. Nails 1-5 bilateral were debrided in length and thickness. Patient was instructed on the continued importance of diabetic foot care along with proper diet and keeping their blood sugar under control to prevent complications. I stressed the importance of avoiding barefoot walking, wearing good shoes and inspection of feet. Discussed hammertoe of b/l 2nd toe. Continue with hammertoe crest pad. Patient is to RTC in 3-4 months. [facility] History of Present illness Narrative* Olu Miller - 12/03/2024 2:40 PM EDT Last saw pcp: 11/17/24 Subjective: Patient presents to clinic c/o painful toenails. They state that the nails are especially painful with shoe gear and pressure. Patient states that nails 1-5 b/l are painful. No other pedal complaints at this time. Patient states no change in medications or medical history since last visit. Objective: Patient presents to clinic ambulating in [facility] Vasc: DP and PT pulses are nonpalpable bilateral. CFT is less than 5 seconds bilateral. Skin temperature is warm to cool proximal to distal bilateral. There is mild edema or varicosities noted. Neuro: Protective sensation is absent to the foot and toes when tested with the 5.07 SWM bilateral.Vibratory sensation is absent at the hallux IPJ bilateral. The hallux is downgoing bilateral. Derm: Nails 1-5 b/l are painful, discolored-yellow, thick, crumbly, dystrophic and with subungal debris. Skin is of normal turgor, texture and hair growth is absent bilateral. There are no hyperkeratosis, ulcerations, scars, verruca or other lesions noted. Ortho: Muscle strength is 5/5 for all pedal groups tested. Ankle joint DF is decreased with the knee extended with no pain or crepitus noted. 1st MPJ ROM is decreased bilateral. Hammertoe is present to b/l 2nd toe Assessment: (B35.1) Onychomycosis (primary encounter diagnosis) (M79.675) Pain in toe of left foot (M79.674) Pain in toe of right foot (E11.42) Diabetic polyneuropathy associated with type 2 diabetes mellitus (HCC) (L85.9) Hyperkeratosis (M20.40) Hammer toe, unspecified laterality Plan: Patient was seen and evaluated. Nails 1-5 bilateral were debrided in length and thickness. Patient was instructed on the continued importance of diabetic foot care along with proper diet and keeping their blood sugar under control to prevent complications. I stressed the importance of avoiding barefoot walking, wearing good shoesand inspection of feet. Discussed hammertoe of b/l 2nd toe. Continue with hammertoe crest pad. Patient is to RTC in 3-4 months. Olu Miller DPM documented [facility] encounter[facility] Instructions* Patient Instructions* Olu Miller - 12/03/2024 2:40 PM EDT Diabetes Foot Care Instructions When you have diabetes, proper foot care is very important. Poor foot care may lead to amputation of a foot or leg. As a person with diabetes, you are more vulnerable to foot problems, because diabetes can damage your nerves and reduce blood flow to your feet. Here are some diabetes foot care tips to follow: Wash and Dry Your Feet Daily Use mild soaps Use warm water Pat your skin dry; do not rub. Thoroughly dry your feet. After washing, use lotion on your feet to prevent cracking. Do not put lotion between your toes. Examine Your Feet Each Day Check the tops and bottoms of your feet. Have someone else look at your feet if you cannot see them. Check for dry, cracked skin. Look for blisters, cuts, scratches, or other sores. Check for redness, increased warmth, or tenderness when touching any area of your feet. Check for ingrown toenails, corns, and calluses. If you get a blister or sore from your shoes, do not pop it. Apply a bandage and wear a differentpair of shoes. Take Care of Your Toenails Cut toenails after bathing, when they are soft. Cut toenails straight across and smooth with a nail file. Avoid cutting into the corners of toes. Do not cut cuticles. If you have neuropathy (or decreased sensation in your feet) a non destructive testing inspector should always cut your toenails. Be Careful When Exercising Walk and exercise in comfortable shoes. Do not exercise when you have open sores on your feet. Protect Your Feet With Shoes and Socks Never go barefoot. Always protect your feet by wearing shoes or hard-soled slippers or footwear. Avoid shoes with high heels and pointed toes. Avoid shoes that expose your toes or heels (such as open-toed shoes or sandals). These types of shoes increase your risk for injury and potential infections. Try on new footwear with the type of socks you usually wear. Do not wear new shoes for more than an hour at a time. Change your socks daily. Look and feel inside your shoes before putting them on to make sure there are no foreign objects orrough areas. Avoid tight socks. Wear natural-fiber socks (cotton, wool, or a cotton-wool blend). Wear special shoes if your health care provider recommends them. Wear shoes/boots that will protect your feet from various weather conditions (cold, moisture, etc.). Make sure your shoes fit properly. If you have neuropathy (nerve damage), you may not notice that your shoes are too tight. Perform the footwear test described below. Footwear Test Use this simple test to see if your shoes fit correctly: Stand on a piece of paper. (Make sure you are standing and not sitting, because your foot changes shape when you stand.) Trace the outline of your foot. Trace the outline of your shoe. Compare the tracings: Is the shoe too narrow? Is your foot crammed into the shoe? The shoe should be at least 1/2 inch longer than your longest toe and as wide as your foot. Proper Shoe Choices The following types of shoes are best for people with diabetes Closed toes and heels Leather uppers without a seam inside At least 1/2 inch extra space at the end of your longest toe Inside of shoe should be soft with no rough areas Outer sole should be made of stiff material Shoes should be at least as wide as your feet Tips for Foot Care in Diabetes Don't wait to treat a minor foot problem if you have diabetes. Follow your health care provider's guidelines and first aid guidelines. Report foot injuries and infections to your health care provider immediately. Check water temperature with your elbow, not your foot. Do not use a heating pad on your feet. Do not cross your legs. Do not self-treat your corns, calluses, or other foot problems. Go to your health care provider or non destructive testing inspector to treat these conditions. documented in this encounterOur [facility]-30-[facility]25 NoteHNO ID: [id number] Author: ASHISH SAHA RN Service: ? Author Type: Registered Nurse Type: Progress Notes Filed: 11/24/2024 14:30 Note Text: Transitional Care Management (TCM) Follow-Up Note PCP Update / Actionable Items N/A - No specialty updates needed Patient Source: Ikb-bb-Lfealud (OON) Discharge Outreach Summary: Patient reports feeling better from Hospital stay. Patient denies chest pain or SOB. He does have some dizziness but states it does not happen to often. He has not been checking his blood pressure regularly at home. Patient is wearing his oxygen at 4 liters and reports his pulse ox is in the 90's. Patient able to speak in complete sentences during phone call without difficulty. Patient has good home support with his Mis and his sister in law Paz who he reports also takes care of him. Patient did have a hospital follow up appointment on 11-17-[address] Carroll. Patient denies an additional follow up appointment with Dr. Carroll at this time. Contact: Contact made with patient: Yes Spoke to: Patient Validation: Validated the person spoken to is actively involved in the patient's care. The patient was identified by Name and Date of . I'd like to get an update on how you're doing since our last phone call. Is now a good time to talk? Yes Symptoms: Are you feeling about the same, better or worse since leaving the hospital? Better Weekly Outreach: 1st Outreach Medications: Do you have any questions about taking your medications, including which medications you should be on, or do you need refills on your medications? No Patient Questions / Concerns: Do you have any questions related to your discharge? No Appointment / TCM Follow-Up: Have you had a follow-up visit with your Primary Care Provider or Specialist since you were discharged? Yes Do you need any assistance with scheduling or changing your follow-up appointments? Patient declines appointment EDUCATION: N/A Ashish Saha RN November 24, 2024 2:29 [facility]04-30-2025 History of Present illness Narrative* Ashish Saha RN - 11/24/2024 2:20 PM EDT Transitional Care Management (TCM) Follow-Up Note PCP Update / Actionable Items N/A - No specialty updates needed Patient Source: Aui-vm-Vyvvztz (OON) Discharge Outreach Summary: Patient reports feeling better from Hospital stay. Patient denies chest pain or SOB. He does have some dizziness but states it does not happen to often. He has not been checking his blood pressure regularly at home. Patient is wearing his oxygen at 4 liters and reports his pulse ox is in the 90's. Patient able to speak in complete sentences during phone call without difficulty. Patient has good home support with his Mis and his sister in law Paz who he reports also takes care of him. Patient did have a hospital follow up appointment on 11-17-[address] Carroll. Patient denies an additional follow up appointment with Dr. Carroll at this time. Contact: Contact made with patient: Yes Spoke to: Patient Validation: Validated the person spoken to is actively involved in the patient's care. The patient was identified by Name and Date of . I'd like to get an update on how you're doing since our last phone call. Is now a good time to talk? Yes Symptoms: Are you feeling about the same, better or worse since leaving the hospital? Better Weekly Outreach: 1st Outreach Medications: Do you have any questions about taking your medications, including which medications you should be on, or do you need refills on your medications? No Patient Questions / Concerns: Do you have any questions related to your discharge? No Appointment / TCM Follow-Up: Have you had a follow-up visit with your Primary Care Provider or Specialist since you were discharged? Yes Do you need any assistance with scheduling or changing your follow-up appointments? Patient declines appointment EDUCATION: N/A Ashish Saha RN November 24, 2024 2:29 PM documented in this encounterOur [facility] Of [facility]-30-2025 NotePatient Outreach ([facility]) KEVINEVELINE ([id number]) 1950 Date Time Provider Department 11/24/24 ASHISH SAHA [facility] During your visit today, we recorded the following information about you: Ashish Saha RN 11/24/2024 2:30 PM Signed Transitional Care Management (TCM) Follow-Up Note PCP Update / Actionable Items N/A - No specialty updates needed Patient Source: Nye-cx-Cmshbeh (OON) Discharge Outreach Summary: Patient reports feeling better from Hospital stay. Patient denies chest pain or SOB. He does have some dizziness but states it does not happen to often. He has not been checking his blood pressure regularly at home. Patient is wearing his oxygen at 4 liters and reports his pulse ox is in the 90's. Patient able to speak in complete sentences during phone call without difficulty. Patient has good home support with his Mis and his sister in law Paz who he reports also takes care of him. Patient did have a hospital follow up appointment on 11-17-[address] Carroll. Patient denies an additional follow up appointment with Dr. Carroll at this time. Contact: Contact made with patient: Yes Spoke to: Patient Validation: Validated the person spoken to is actively involved in the patient's care. The patient was identified by Name and Date of . I'd like to get an update on how you're doing since our last phone call. Is now a good time to talk? Yes Symptoms: Are you feeling about the same, better or worse since leaving the hospital? Better Weekly Outreach: 1st Outreach Medications: Do you have any questions about taking your medications, including which medications you should be on, or do you need refills on your medications? No Patient Questions / Concerns: Do you have any questions related to your discharge? No Appointment / TCM Follow-Up: Have you had a follow-up visit with your Primary Care Provider or Specialist since you were discharged? Yes Do you need any assistance with scheduling or changing your follow-up appointments? Patient declines appointment EDUCATION: N/A Ashish Saha RN November 24, 2024 2:29 PM Allergies As of Date: 11/24/2024 Noted Allergy Reaction LISINOPRIL 11/15/2019 18 - Angioedema MORPHINE 06/07/2008 12 - Shortness of Breath Comments: rapid heart rate OYSTERS 04/01/2017 8 - GI Upset TYLENOL (ACETAMINOPHEN) 10/16/2005 13 - Dystonia Comments: flushed, cold sweats, shakey Date Reviewed: 11/17/2024 Reviewed by: Shania Peraza MA - Fully Assessed Prescriptions as of 11/24/2024 - predniSONE (DELTASONE) 20 mg tablet Take 20 mg by mouth once daily. - melatonin 10 mg tab Take 1 tablet by mouth daily at bedtime. Pt told [facility] nurse he is taking. - diphenhydramine HCl (SLEEP AID, DIPHENHYDRAMINE, ORAL) Take 1 capsule by mouth daily at bedtime. Pt told [facility] nurse he is taking. - calcium carbonate (TUMS ULTRA ORAL) Take by mouth as needed. Pt told [facility] nurse he is taking. - loperamide HCl (IMODIUM ORAL) Take by mouth as needed. Pt told [facility] nurse he is taking. - guaifenesin/dextromethorphan (MUCINEX DM ORAL) Take by mouth as needed. Pt told [facility] nurse he is taking. - Ibuprofen 200 mg cap Take by mouth as needed. Pt told [facility] nurse he is taking. - furosemide (LASIX) 40 mg tablet Take 40 mg by mouth once daily. From [facility] discharge note 11/12 - potassium chloride ER (KLOR-CON M20) 20 mEq tablet Take 20 mEq by mouth once daily. From [facility] discharge note 11/12 - albuterol (PROVENTIL) 2.5 mg /3 mL (0.083 %) nebulizer solution Use 2.5 mg via nebulizer every 2 hours as needed for wheezing/shortness of breath. From [facility] discharge note 11/12 - losartan (COZAAR) 50 mg tablet Take 1 tablet by mouth once daily. - nitroglycerin sublingual (NITROQUICK) 0.4 mg SL tablet Dissolve 1 tablet under the tongue as needed for chest pain. If no pain relief call 911. - ipratropium-albuterol (DUONEB) 0.5 mg-3 mg(2.5 mg base)/3 mL nebu Inhale 3 mL as instructed four times daily. - atorvastatin (LIPITOR) 40 mg tablet Take 1 tablet by mouth daily at bedtime. - clopidogrel (PLAVIX) 75 mg tablet Take 1 tablet by mouth once daily. - fluticasone (FLONASE) 50 mcg/actuation nasal spray Use 1 [place] in each nostril two times a day. - metFORMIN (GLUCOPHAGE) 500 mg tablet Take 1 tablet by mouth two times a day with meals. - metoprolol tartrate, short acting, (LOPRESSOR) 50 mg tablet Take 1 tablet by mouth two times a day. - sertraline (ZOLOFT) 100 mg tablet Take 1 tablet by mouth once daily. - primidone (MYSOLINE) 50 mg tablet Take 1 tablet by mouth two times a day. - qrsrtiyrcsy-mvilpjqoi-dfyooxva (TRELEGY ELLIPTA) 100-62.5-25 mcg inhalation powder Inhale 1 Puff as instructed once daily. - blood sugar diagnostic (BLOOD GLUCOSE TEST) test strip Test blood sugar(s) 2 times daily. Dx: Other DM Code E11.41 Insuli (more content not included)...[facility]04-24-2025 NoteHNO ID: [id number] Author: ASHISH SAHA RN Service: ? Author Type: Registered Nurse Type: Progress Notes Filed: 11/18/2024 15:32 Note Text: Transition Care Management (TCM) Initial Outreach PCP Update / Actionable Items HRTIC TCM Home Visit Referral Source of Stratification: TCM [facility] Hospital Admission Status: Discharged Readmission Risk Score: 0 due to OON Hospital Stay Patient's zip code: [address] Is zip code within program service area: No Patient meets program referral criteria: No Patient does not qualify for High Risk TCM Home Visit program due to: Patient's zip code is not located within program service area Readmission Risk Score does not meet criteria Disposition: Patient does not qualify for HRTIC, will provide TCM outreach follow-up for 30-days Patient Source: Kvj-ty-[place]ron[place] (OON) Discharge Outreach Summary: Patient reports he is doing better. He is now able to ambulate in his home without a walker. Patient is wearing his oxygen at 4 liters. He reports his SOB has improved. He denies chest pain and does not think he is wheezing. He has intermittent cough and occasional dizziness. Patient able to speak in complete sentences during phone call without difficulty. Patient has hospital fu with Dr. Carroll yesterday. Patient reports he had a Home Care visit a few days ago. Patient discharged from [place] Discharge date: 11-12-24 Admitted for: aspiration pneumonia and COPD Readmission Risk: 0 Value-Based Contract: Bhavna RASHID Contact: Contact made with patient: Yes Hi, my name is Ashish Saha RN and I am calling from the [facility] on behalf of your Primary Care Provider, Royce Carroll MD. I understand you were recently in the hospital, so I am calling to check in with you to ensure you are feeling well now that you are home. May I ask you a few questions related to your hospital stay and well-being? Yes Spoke to: Patient Validation: Validated the person spoken to is actively involved in the patient's care. The patient was identified by Name and Date of . Symptoms: Are you feeling about the same, better or worse since leaving the hospital? Better Medications: Do you have any questions about taking your medications, including which medications you should be on, or do you need refills on your medications? No Medication Review: Declined at this time per patient preference Discharge Instructions: Your Discharge Instructions / After Visit Summary (AVS) are important in guiding you through the recovery process. Do you have any questions related to your discharge instructions? No Home Care: Were you discharged with home care? Yes Has your Home Care Agency contacted you? Yes Name of Home Care Agency: [facility] Phone number, if available: [phone] Start of Home Care services date: came in a few days ago per patient Home care services included: Nursing Equipment: Do you have all the necessary equipment and supplies needed at your home? Yes The patient verbalizes understanding the use of the equipment and supplies Social: Your mental health is as important to us as your physical health. Would you mind answering a few questions on this topic? Yes On the Storyboard review: Food Insecurity, Transportation, Depression, Housing, and Financial Strain: Complete any SDOHs, listed above, if not addressed in the past 3 months. If all SDOHs, listed above, have been addressed within the last 3 months, confirm responses and update any SDOHs that have changed. Action Taken: No needs verbalized. No action required. Follow-Up Appointment: [Appointment / TCM Follow-up within 14 days] I would like to help you schedule a hospital follow-up virtual or telephone visit with your PCP. This is a great way for you to connect with your provider to ensure you have safely transitioned home. If you are agreeable, I will send your request to a net fisher who will contact and assist you with that appointment. This will give you an opportunity to ask any questions or address any concerns you may have with your PCP. Inform the patient that if they have any questions or concerns prior to that appointment, to call their PCP's office right away. Appointment Action: No action required, patient completed appointment. Education details: Patient and family educated on issues/questions related to reason for admission, transition of care topics, and follow-up needed upon discharge. Ashish Saha RN November 18, 2024 3:17 [facility]04-24-2025 NotePatient Outreach (AMBCMG) KAM GREENBERG ([id number]) 1950 Date Time Provider Department 11/18/24 ASHISH SAHA AMBCMLizette During your visit today, we recorded the following information about you: Ashish Saha RN 11/18/2024 3:32 PM Signed Transition Care Management (TCM) Initial Outreach PCP Update / Actionable Items HRTIC TCM Home Visit Referral Source of Stratification: [facility] Hospital Admission Status: Discharged Readmission Risk Score: 0 due to OON Hospital Stay Patient's zip code: [address] Is zip code within program service area: No Patient meets program referral criteria: No Patient does not qualify for High Risk TCM Home Visit program due to: Patient's zip code is not located within program service area Readmission Risk Score does not meet criteria Disposition: Patient does not qualify for HRTIC, will provide TCM outreach follow-up for 30-days Patient Source: [id number] (OON) Discharge Outreach Summary: Patient reports he is doing better. He is now able to ambulate in his home without a walker. Patient is wearing his oxygen at 4 liters. He reports his SOB has improved. He denies chest pain and does not think he is wheezing. He has intermittent cough and occasional dizziness. Patient able to speak in complete sentences during phone call without difficulty. Patient has hospital fu with Dr. Carroll yesterday. Patient reports he had a Home Care visit a few days ago. Patient discharged from [facility] Discharge date: 11-12-24 Admitted for: aspiration pneumonia and COPD Readmission Risk: 0 Value-Based Contract: Bhavna RASHID Contact: Contact made with patient: Yes Hi, my name is Ashish Saha RN and I am calling from the [facility] on behalf of your Primary Care Provider, Royce Carroll MD. I understand you were recently in the hospital, so I am calling to check in with you to ensure you are feeling well now that you are home. May I ask you a few questions related to your hospital stay and well-being? Yes Spoke to: Patient Validation: Validated the person spoken to is actively involved in the patient's care. The patient was identified by Name and Date of . Symptoms: Are you feeling about the same, better or worse since leaving the hospital? Better Medications: Do you have any questions about taking your medications, including which medications you should be on, or do you need refills on your medications? No Medication Review: Declined at this time per patient preference Discharge Instructions: Your Discharge Instructions / After Visit Summary (AVS) are important in guiding you through the recovery process. Do you have any questions related to your discharge instructions? No Home Care: Were you discharged with home care? Yes Has your Home Care Agency contacted you? Yes Name of Home Care Agency: [facility] Phone number, if available: [phone] Start of Home Care services date: came in a few days ago per patient Home care services included: Nursing Equipment: Do you have all the necessary equipment and supplies needed at your home? Yes The patient verbalizes understanding the use of the equipment and supplies Social: Your mental health is as important to us as your physical health. Would you mind answering a few questions on this topic? Yes On the Storyboard review: Food Insecurity, Transportation, Depression, Housing, and Financial Strain: Complete any SDOHs, listed above, if not addressed in the past 3 months. If all SDOHs, listed above, have been addressed within the last 3 months, confirm responses and update any SDOHs that have changed. Action Taken: No needs verbalized. No action required. Follow-Up Appointment: [Appointment / TCM Follow-up within 14 days] I would like to help you schedule a hospital follow-up virtual or telephone visit with your PCP. This is a great way for you to connect with your provider to ensure you have safely transitioned home. If you are agreeable, I will send your request to a net fisher who will contact and assist you with that appointment. This will give you an opportunity to ask any questions or address any concerns you may have with your PCP. Inform the patient that if they have any questions or concerns prior to that appointment, to call their PCP's office right away. Appointment Action: No action required, patient completed appointment. Education details: Patient and family educated on issues/questions related to reason for admission, transition of care topics, and follow-up needed upon discharge. Ashish Saha RN November 18, 2024 3:17 PM Allergies As of Date: 11/18/2024 Noted Allergy Reaction LISINOPRIL 11/15/2019 18 - Angioedema MORPHINE 06/07/2008 12 - Shortness of Breath Comments: rapid heart rate OYSTERS 04/01/2017 8 - GI Upset TYLENOL (ACETAMINOPHEN) (more content not included)...[facility] 11-17-2024 NoteHNO ID: [id number] Author: ROYCE CARROLL MD Service: ? Author Type: Physician Type: Progress Notes Filed: 11/18/2024 09:28 Note Text: This note was created using [employer]. Subjective Patient presents with: Hospital F/U Kam Greenberg is a 74 year old male here with . He was admitted at [facility] for dyspnea on November 03 to 2024 with slow improvement. He was treated for aspiration pneumonia, COPD exacerbation, and congestive heart failure. His oxygen requirements increased, and new oxygen orders were given. He has been self adjusting his oxygen due to dyspnea. Unfortunately, he also continued to smoke with oxygen, and I warned him of his risk of ferguson. He was now on furosemide, potassium, and losartan. He was not interested in following up with the [facility] due to some billing dispute in the past. Review of Systems Constitutional: Negative for chills, fatigue and fever. HENT: Negative for congestion and trouble swallowing. Respiratory: Negative for cough and wheezing. Cardiovascular: Negative for chest pain, palpitations and leg swelling. Gastrointestinal: Negative for diarrhea, nausea and vomiting. Genitourinary: Negative for difficulty urinating and dysuria. Neurological: Negative for dizziness and headaches. 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, Without Long-Term Current Use of Insulin ([facility]) At Risk for Falls Abnormality of Gait Chronic Obstructive Pulmonary Disease With (Acute) Exacerbation ([facility]) Chronic Hypoxemic Respiratory Failure ([facility]) Chronic Diastolic Chf (Congestive Heart Failure) ([facility]) Svt (Supraventricular Tachycardia) ([facility]) Social History Tobacco Use Smoking status: Every Day Current packs/day: 0.00 Average packs/day: 1 pack/day for 55.1 years (55.1 ttl pk-yrs) Types: Cigarettes Start date: 1966 Last attempt to quit: 12/11/2022 Years since quittin.9 Smokeless tobacco: Never Tobacco comments: Smokers in the home. 3 cigarettes per day Vaping Use Vaping status: Never Used Substance Use Topics Alcohol use: Not Currently Comment: rare NAB Drug use: No Current Outpatient Medications Medication Sig predniSONE (DELTASONE) 20 mg tablet Take 20 mg by mouth once daily. melatonin 10 mg tab Take 1 tablet by mouth daily at bedtime. Pt told [facility] nurse he is taking. diphenhydramine HCl (SLEEP AID, DIPHENHYDRAMINE, ORAL) Take 1 capsule by mouth daily at bedtime. Pt told [facility] nurse he is taking. calcium carbonate (TUMS ULTRA ORAL) Take by mouth as needed. Pt told [facility] nurse he is taking. loperamide HCl (IMODIUM ORAL) Take by mouth as needed. Pt told [facility] nurse he is taking. guaifenesin/dextromethorphan (MUCINEX DM ORAL) Take by mouth as needed. Pt told [facility] nurse he is taking. Ibuprofen 200 mg cap Take by mouth as needed. Pt told [facility] nurse he is taking. furosemide (LASIX) 40 mg tablet Take 40 mg by mouth once daily. From [facility] discharge note 11/12 potassium chloride ER (KLOR-CON M20) 20 mEq tablet Take 20 mEq by mouth once daily. From [facility] discharge note 11/12 albuterol (PROVENTIL) 2.5 mg /3 mL (0.083 %) nebulizer solution Use 2.5 mg via nebulizer every 2 hours as needed for wheezing/shortness of breath. From [facility] discharge note 11/12 losartan (COZAAR) 50 mg tablet Take 1 tablet by mouth once daily. nitroglycerin sublingual (NITROQUICK) 0.4 mg SL tablet Dissolve 1 tablet under the tongue as needed for chest pain. If no pain relief call 911. ipratropium-albuterol (DUONEB) 0.5 mg-3 mg(2.5 mg base)/3 mL nebu Inhale 3 mL as instructed four times daily. amLODIPine (NORVASC) 5 mg tablet Take 1 tablet by mouth once daily. atorvastatin (LIPITOR) 40 mg tablet Take 1 tablet by mouth daily at bedtime. clopidogrel (PLAVIX) 75 mg tablet Take 1 tablet by mouth once daily. fluticasone (FLONASE) 50 mcg/actuation nasal spray Use 1 [place] in each nostril two times a day. metFORMIN (GLUCOPHAGE) 500 mg tablet Take 1 tablet by mouth two times a day with meals. metoprolol tartrate, short acting, (LOPRESSOR) 50 mg tablet Take 1 tablet by mouth two times a day. sertraline (ZOLOFT) 100 mg tablet Take 1 tablet by mouth once daily. primidone (MYSOLINE) 50 mg tablet Take 1 tablet by mouth two times a day. fazcxykthbz-hmiisinhy-ieyigorw (TRELEGY ELLIPTA) 100-62.5-25 mcg inhalation powder Inhale 1 Puff as instructed once daily. blood sugar diagnostic (BLOOD GLUCOSE TEST) test strip Micki (more content not included)...[facility]04-22-2025 Note* Addendum Note - Royce Carroll MD - 11/16/2024 1:12 PM EDTAddended by: ROYCE CARROLL on: 11/16/2024 01:12 PM Modules accepted: Orders [facility]04-22-2025 Miscellaneous Notes* Addendum Note - Royce Carroll MD - 11/16/2024 1:12 PM EDTAddended by: ROYCE CARROLL on: 11/16/2024 01:12 PM Modules accepted: Orders * Telephone Encounter - Royce Carroll MD - 11/16/2024 12:56 PM EDT Hospital records, Oxygen orders reviewed. Oxygen 3 LPM via NC at rest, 6 LPM via NC with activity. Oxygen orders printed. * Telephone Encounter - Kirstin Tipton RN - 11/15/2024 3:10 PM EDT Called and left a detailed voicemail notifying Nurse Kezia [facility] of providers message. Clinic phone number was left in case she had any questions. Pt called and is notified of providers message andinstructions. Pt voices understanding. Pt states he used to got to [facility] but they told himthey wouldn't see him anymore because he owed them money, and he states his insurance at the time told him he was paid off. He said he used to see a Promotions Team Leader at [facility], but he moved to [place]. Lynn with [facility] HH called and is notified of providers message and instructions. She voices understanding. She states she will have a HH nurse help him to set up an appointment with [facility] as they have to have at least 1 f/u with the Pt as they saw him at the hospital, so they can help him setup transportation. Called [facility] and spoke with Briana to let her know HH would be calling in with Pt to get a f/u appointment set up for Pt so they could help him get transportation set up. Could provider please send in updated orders so Pt has concentrator that goes up to 8L, which is what he is supposed to be on when up walking. Per nurses note the concentrator he has right now only goes up to 6L. Kirstin Tipton, RN * Telephone Encounter - Royce Carroll MD - 11/15/2024 2:04 PM EDT The following approved medication requests have been transmitted electronically. Requested Prescriptions Signed Prescriptions Disp Refills losartan (COZAAR) 50 mg tablet 30 tablet 1 Sig: Take 1 tablet by mouth once daily. nitroglycerin sublingual (NITROQUICK) 0.4 mg SL tablet 25 tablet 1 Sig: Dissolve 1 tablet under the tongue as needed for chest pain. If no pain relief call 911. Follow up with the [facility] for [facility]. [place] [employer] Consult. Royce Carroll MD * Telephone Encounter - Beatris Sanabria RN - 11/15/2024 8:40 AM EDT Called nurse Kezia back from [facility]. She has many updates for provider and needed an order for a SW consult. Per both cardiology note and discharge summary note in scanned documents, it looks like Cardiology wanted pt to be taking Losartan 50 mg every afternoon. It does not appear that pt received this script on discharge and confirmed with [facility] nurse that pt does not have this prescription at home either. Pt's hospital follow up appt with Dr. Carroll is 11/17. Per cardiologists note, pt is to followup with his [facility] guest request runner. It appears pt was to establish with Dr. Woods on 04/29/22 for new patient cardiology consult but failed to show for the appt. Does provider want pt to follow up with [facility]? 1) Kezia is asking for SW consult. On 11/10, Dr. Craroll agreed to follow. Order for SW given. Kezia states it is for pt's living conditions which are very poor. Pt lives in a trailer which has air coming in through windows and doors and other issues. She isn't sure how many people live there. Alot of people were coming and going. 2) Pt wears O2 continuously. He smokes with his O2 on. And pt's lit up a cigarette when HH nurse was there while pt was wearing O2. Kezia states she spoke with both pt and his about No Smoking and that if they continue to smoke while any HH staff are there, they will discharge them from [facility] for staff safety. 3) Pt is ordered to be on 4L NC continuously but pt has himself on 5L/NC. With activity, per a second set of orders received from the hospital, pt is to up it to 8L/NC with any activity. Kezia wanted provider to be aware that when she got there with pt resting on the 5L/NC, his pulse ox was 97%. She had pt get up and walk and within 2 steps, he dropped to 74% which is what he had been doing in [facility] as well. She upped his oxygen to as high as the concentrator would allow which was 6L. She wasn't able to put it up to 8L. She discussed with pt and he states he is not going to change anything. She states pt did recover to normal pulse ox after resting. 4) Many medication issues. a) Kezia did not have Primidone 50 mg on pt's list of medications from [facility]. Pt told her he takes it once a day. Per our med list, pt is to be taking twice daily. b) Pt has some nitroglycerin on hand but it is extremely outdated. c) Pt also has some Tramadol that is also extremely outdated. Kezia instructed pt to get rid of itbut she guesses pt will not. He told her he takes it once in awhile. d) Pt was to be taking his antibiotic Amoxicillin twice daily. Pt was only taking it once a day butamanda instructed him to take twice a day. e) pt was taking his statin in the morning. Kezia instructed pt to take it at bedtime. f) Med interactions and warning of duplicate therapies: -Plavix and Ibuprofen -Sleep Aid and Melatonin -Potassium and Sleep aid -Tramadol as pt has an adverse reaction to Morphine. 5) Nursing plan of care 2x/week for 1 week then 1x/week for 2 weeks. 6) Pt was only using his Nebulizer as needed. It is ordered for pt to do 4 times per day. Kezia instructed pt to do it 4 times per day. 7) Pt admitted to Kezia that he does do some binge drinking. Also Kezia noted some Marijuana paraphernalia in the trailer but pt denies that it is his. 8) Kezia states pt seems to be non compliant and wanted provider to be aware. No need to call Kezia back unless there are questions or changes. * Telephone Encounter - Deb Forbes - 11/13/2024 11:03 AM EDT [facility] Kezia/RN is calling Royce Carroll MD today with a report not onmedications found in the home that are not on med list, also to go over list of medication they found in home Also requesting a social work referral order Please call nurse Mast at secure line [phone] Patient has been identified by name and birthdate. Duration of symptoms: N/A Person calling: JOE Mast Was an appointment scheduled: No Closing statement: Nurse Mast needing to speak with nurse in PCP office, please call Deb Padilla documented in [facility] Telephone encounter Note * Telephone Encounter - Royce Carroll MD - 11/16/2024 12:56 PM EDT Hospital records, Oxygen orders reviewed. Oxygen 3 LPM via NC at rest, 6 LPM via NC with activity. Oxygen orders printed. [facility]04-21-2025 Telephone encounter Note* Telephone Encounter - Kirstin Tipton RN - 11/15/2024 3:10 PM EDT Called and left a detailed voicemail notifying Nurse Kezia [facility] of providers message. Clinic phone number was left in case she had any questions. Pt called and is notified of providers message andinstructions. Pt voices understanding. Pt states he used to got to [facility] but they told himthey wouldn't see him anymore because he owed them money, and he states his insurance at the time told him he was paid off. He said he used to see a Promotions Team Leader at [facility], but he moved to [place]. Lynn with [facility] HH called and is notified of providers message and instructions. She voices understanding. She states she will have a HH nurse help him to set up an appointment with [facility] as they have to have at least 1 f/u with the Pt as they saw him at the hospital, so they can help him setup transportation. Called [facility] and spoke with Briana to let her know HH would be calling in with Pt to get a f/u appointment set up for Pt so they could help him get transportation set up. Could provider please send in updated orders so Pt has concentrator that goes up to 8L, which is what he is supposed to be on when up walking. Per HH nurses note the concentrator he has right now only goes up to 6L. Kirstin Tipton RN [facility]04-21-2025 Telephone encounter Note* Telephone Encounter - Royce Carroll MD - 11/15/2024 2:04 PM EDT The following approved medication requests have been transmitted electronically. Requested Prescriptions Signed Prescriptions Disp Refills losartan (COZAAR) 50 mg tablet 30 tablet 1 Sig: Take 1 tablet by mouth once daily. nitroglycerin sublingual (NITROQUICK) 0.4 mg SL tablet 25 tablet 1 Sig: Dissolve 1 tablet under the tongue as needed for chest pain. If no pain relief call 911. [facility] up with the [facility] for [facility]. [place] [employer] Consult. Royce Carroll MD [facility]04-21-2025 Telephone encounter Note* Telephone Encounter - Beatris Sanabria RN - 11/15/2024 8:40 AM EDT Called nurse Kezia back from [facility]. She has many updates for provider and needed an order for a SW consult. Per both cardiology note and discharge summary note in scanned documents, it looks like Cardiology wanted pt to be taking Losartan 50 mg every afternoon. It does not appear that pt received this script on discharge and confirmed with [facility] nurse that pt does not have this prescription at home either. Pt's hospital follow up appt with Dr. Carroll is 11/17. Per cardiologists note, pt is to followup with his [facility] guest request runner. It appears pt was to establish with Dr. Woods on 04/29/22 for new patient cardiology consult but failed to show for the appt. Does provider want pt to follow up with [facility]? 1) Kezia is asking for SW consult. On 11/10, Dr. Carroll agreed to follow. Order for SW given. Kezia states it is for pt's living conditions which are very poor. Pt lives in a trailer which has air coming in through windows and doors and other issues. She isn't sure how many people live there. Alot of people were coming and going. 2) Pt wears O2 continuously. He smokes with his O2 on. And pt's lit up a cigarette when HH nurse was there while pt was wearing O2. Kezia states she spoke with both pt and his about No Smoking and that if they continue to smoke while any HH staff are there, they will discharge them from [facility] for staff safety. 3) Pt is ordered to be on 4L NC continuously but pt has himself on 5L/NC. With activity, per a second set of orders received from the hospital, pt is to up it to 8L/NC with any activity. Kezia wanted provider to be aware that when she got there with pt resting on the 5L/NC, his pulse ox was 97%. She had pt get up and walk and within 2 steps, he dropped to 74% which is what he had been doing in [facility] as well. She upped his oxygen to as high as the concentrator would allow which was 6L. She wasn't able to put it up to 8L. She discussed with pt and he states he is not going to change anything. She states pt did recover to normal pulse ox after resting. 4) Many medication issues. a) Kezia did not have Primidone 50 mg on pt's list of medications from [facility]. Pt told her he takes it once a day. Per our med list, pt is to be taking twice daily. b) Pt has some nitroglycerin on hand but it is extremely outdated. c) Pt also has some Tramadol that is also extremely outdated. Kezia instructed pt to get rid of itbut she guesses pt will not. He told her he takes it once in awhile. d) Pt was to be taking his antibiotic Amoxicillin twice daily. Pt was only taking it once a day butamanda instructed him to take twice a day. e) pt was taking his statin in the morning. Kezia instructed pt to take it at bedtime. f) Med interactions and warning of duplicate therapies: -Plavix and Ibuprofen -Sleep Aid and Melatonin -Potassium and Sleep aid -Tramadol as pt has an adverse reaction to Morphine. 5) Nursing plan of care 2x/week for 1 week then 1x/week for 2 weeks. 6) Pt was only using his Nebulizer as needed. It is ordered for pt to do 4 times per day. Kezia instructed pt to do it 4 times per day. 7) Pt admitted to Kezia that he does do some binge drinking. Also Kezia noted some Marijuana paraphernalia in the trailer but pt denies that it is his. 8) Kezia states pt seems to be non compliant and wanted provider to be aware. No need to call Kezia back unless there are questions or changes. [facility]04-19-2025 Telephone encounter Note* Telephone Encounter - Deb Forbes - 11/13/2024 11:03 AM EDT [facility] health Kezia/RN is calling Royce Carroll MD today with a report not onmedications found in the home that are not on med list, also to go over list of medication they found in home Also requesting a social work referral order Please call nurse Mast at secure line [phone] Patient has been identified by name and birthdate. Duration of symptoms: N/A Person calling: JOE Mast Was an appointment scheduled: No Closing statement: Nurse Mast needing to speak with nurse in PCP office, please call Deb Padilla [facility]04-18-2025 Consult note [facility] Medical Records Department [address] [place] [address] Counseling Note - Pharmacy 11/12/24 1547 MR#: [id number] Acct: [id number] Name: KEVINEVELINE Rep #:[id number] : 1950 74 From: Pb Vasquez PCP: Dr. Royce Carroll MD Status:A DM IN Y Location: [place] [address] Pharmacy [facility] Service has performed discharge medication reconciliation and counseling for this patient. The patient's discharge medication list was reviewed for discrepancies and discrepancies were resolved. The patient was counseled on the following discharge medications and changes in medications for homegoing were reviewed. The Reason for Use, instructions for use, and potential side effects were reviewed for all new medications. The patient's questions regarding all of their medications were answered. 1. Amoxicillin/clavulanate 875/125 mg PO BID x 5 days 2. Prednisone 40 mg PO daily x 4 days 3. Furosemide 40 mg PO daily 4. Potassium 20 mEq PO daily The patient was able to verbally demonstrate an understanding of their dischargemedications. Medications at Discharge Home Medications clopidogrel 75 mg tablet 75 mg PO DAILY Check with primary doctor 03/24/16 metoprolol tartrate 50 mg tablet 50 mg PO BID Check with primary doctor 03/24/16 amlodipine 5 mg tablet 5 mg PO DAILY Check with primary doctor 12/11/22 sertraline 100 mg tablet 100 mg PO DAILY Check with primary doctor 12/11/22 albuterol sulfate 2.5 mg/3 mL (0.083 %) solution for nebulization 2.5 mg (3 mL) inhalation Q2H PRN PRN shortness of breath or wheezing #1 mL 12/17/22 ipratropium 0.5 mg-albuterol 3 mg (2.5 mg base)/3 mL nebulization soln 3 ml inhalation 4X/DAY #120 mL 12/17/22 albuterol sulfate 90 mcg/actuation aerosol inhaler 2 puff inhalation Q4H PRN PRNwheezing 11/03/24 atorvastatin 40 mg tablet 40 mg PO QHS cholesterol 11/03/24 fluticasone fur. 100 mcg-umeclid 62.5 mcg-vilant 25 mcg inhalat.powder (Trelegy Ellipta) 1 ea inhalation DAILY 11/03/24 fluticasone propionate 50 mcg/actuation nasal spray,suspension 1 spray intranasal BID 11/03/24 metformin 500 mg tablet 500 mg PO BID 11/03/24 amoxicillin 875 mg-potassium clavulanate 125 mg tablet 1 tab PO BID #10 tabs 11/12/24 furosemide 40 mg tablet 40 mg PO DAILY #30 tabs 11/12/24 potassium chloride 20 mEq tablet,extended release(part/cryst) (Klor-Con M) 20 meq PO DAILY #30 tabs11/12/24 prednisone 20 mg tablet 40 mg (2 x 20 mg) PO BREAKFAST 4 days #8 tabs 11/12/24 11/12/24 1548 r> Date _ Pb Kelly Signature (if applicable): Date CC: ~ Signed [facility]04-18-2025 Discharge summary [facility] Medical Records Department [address] [place] [address] Discharge Summary 11/12/24 1526 MR#: [id number] Acct: [id number] Name: KAM GREENBERG Rep #:[id number] : 1950 74 From: Rafaela Pelayo MD PCP: Dr. Royce Carroll MD Status:A DM IN [facility] Providers Date of Admission: 11/03/24 Date of Discharge: 11/12/24 Primary Care Physician: Dr. Royce Carroll MD Consultations 11/08/24 11:19 Consult: Cardiology Routine Consulting Provider: Олег Horne Reason for Consult: reduced EF per echo EMERGENT Consult: No Notified: Yes Date Notified: 11/08/24 Time Notified: 11:19 Method of Notification: Text 11/09/24 12:51 Consult: Twisting Press Operator / Pulmonary Medicine Routine Consulting Provider: Intensivists/Pulmonary Med Reason for Consult: acute on chronic hypoxic respiratory failure EMERGENT Consult: No Notified: Yes Date Notified: 11/09/24 Time Notified: 12:51 Method of Notification: Text Reason For Visit: ASPIRATION PNA & AE COPD Diagnosis Discharge Diagnosis (1) Aspiration pneumonia: Status: Acute Code(s): J69.0 - Pneumonitis due to inhalation of food and vomit Qualifiers: Aspiration pneumonia type: unspecified Laterality: bilateral Lung location: unspecified part of lung Qualified Code(s): J69.0 - Pneumonitis due to inhalation of food and vomit (2) COPD exacerbation: Status: Chronic Code(s): J44.1 - Chronic obstructive pulmonary disease with (acute) exacerbation Plan #Acute on chronic hypoxic respiratory failure due to COPD and aspiration pneumonia * remains on 4L of oxygen. However he continues to desaturate very easily with exertion. * CXR showed evidence of pneumonia * on IV solumedrol * on IV zosyn. Breathing treatment with bronchodilators * he had modified barium swallow and coughed during the process; modified barium swallow showed moderate oropharyngeal dysphagia. * speech therapy on board. TO have further speech evaluation again today. * titrate oxygen to maintain sats >90%. * Breathing treatment with bronchodilators. Titrate oxygen to maintain sats >90% * Respiratory panel was negative. Urine for strep and Legionella were also negative. * CTA chest showed no evidence of PE and showed small left pleural effusion with calcified left pleural plaques. * pulmonology on board * on PO prednisone * #Cardiomyopathy * has EF of 45% with mild to moderate global hypokinesis of the left ventricle and stage I diastolic dysfunction and pulmonary artery systolic pressure of 65mmHg * On 4 L of oxygen which is his baseline * echo from 2022 showed EF of 55-60% and stage I diastolic dysfunction and normal LV systolic function. * Cardiology did review him based on the echo findings recommended adding on losartan 50 mg every afternoon to his medication regimen. Per cardiology once his pulmonary status is back to baseline to have a limited echo in 6 weeks time to evaluate his pulmonary artery pressures and ventricular function. * Troponins were mildly elevated on admission at 131 and peaked at 159 but trended downwards to 133. * received lasix yesterday, will give another dose of lasix today * #CAD s/p CABG and stents * on plavix and statin as well as beta kaushik. Also on losartan * #CKD stage III: Creatinine is 1.51 today. Baseline creatinine has been around 1.5 from admission. Will monitor. #Hypertension: on metoprolol and amlodipine #GERD: on PPI DVT prophylaxis: heparin * Medications at Discharge Home Medications clopidogrel 75 mg tablet 75 mg PO DAILY Check with primary doctor 03/24/16 metoprolol tartrate 50 mg tablet 50 mg PO BID Check with primary doctor 03/24/16 amlodipine 5 mg tablet 5 mg PO DAILY Check with primary doctor 12/11/22 sertraline 100 mg tablet 100 mg PO DAILY Check with primary doctor 12/11/22 albuterol sulfate 2.5 mg/3 mL (0.083 %) solution for nebulization 2.5 mg (3 mL) inhalation Q2H PRN PRN shortness of breath or wheezing #1 mL 12/17/22 ipratropium 0.5 mg-albuterol 3 mg (2.5 mg base)/3 mL nebulization soln 3 ml inhalation 4X/DAY #120 mL 12/17/22 albuterol sulfate 90 mcg/actuation aerosol inhaler 2 puff inhalation Q4H PRN PRNwheezing 11/03/24 atorvastatin 40 mg tablet 40 mg PO QHS cholesterol 11/03/24 fluticasone fur. 100 mcg-umeclid 62.5 mcg-vilant 25 mcg inhalat.powder (Trelegy Ellipta) 1 ea inhalation DAILY 11/03/24 fluticasone propionate 50 mcg/actuation nasal spray,suspension 1 spray intranasal BID 11/03/24 metformin 500 mg tablet 500 mg PO BID 11/03/24 amoxicillin 875 mg-potassium clavulanate 125 mg tablet 1 tab PO BID #10 tabs 11/12/24 furosemide 40 mg tablet 40 mg PO DAILY #30 tabs 11/12/24 potassium chloride 20 mEq tablet,extended release(part/cryst) (Klor-Con M) 20 meq PO DAILY #30 tabs11/12/24 prednisone 20 mg tablet 40 mg (2 x 20 mg) PO BREAKFAST 4 days #8 tabs 11/12/24 Hospital Course Operations None Procedures 2-D Echocardiogram Summary of Care Provided Minutes Spent on Discharge: 47 Hospital Course: Patient is a 74 y/o male with a PMH as outlined who was admitted via the ED on 11/03/2024 with a complaint of shortness of breath, wheezing and cough with drinking. Was initially present with exertion but subsequently the shortness ofbreath was present even at rest and he also had chest tightness dueto shortnessof breath. Family noted that he also had coughing fits whilst drinking fluids. He denied any fever or chills or runny nose or any other such symptoms. On admission WBC was elevated at 12.7 and chest x-ray showed upper lobe emphysema with small bilateral pleural effusion and scarring in the mid to lower lungs as well as bilateral airspace disease more prominent on the right suspicious for pneumonia. There was concern for aspiration. Patient was on 5 L of oxygen and usually will 4 L at home. He was admitted and managed for hypoxia in the setting of chronic respiratory failure due toprobable aspiration pneumonia as well as COPD exacerbation. He was placed on IV Solu-Medrol and IV Z osyn. Respiratory panel was negative and urine. And Legionella were also negative. He did have 2D echo which showed EF of 45% with mild to moderate global hypokinesis of the left ventricle and stage I diastolic dysfunction as well as pulmonary artery systolic pressure of 65 mmHg. Patient was started on diuresis with IV Lasix and cardiology was consulted as his previous echo has shown EF of 55 to 60%. Cardiology reviewed him and felt that his symptoms and echo findingswere likely due to the acute effect of the acute on chronic respiratory failure and recommended that patient follow-up with hisoutpatient guest request runner for limited echo to be repeated in about 6 weeks to evaluate the left ventricular systolic function. Patient did continue to require increasing amounts of oxygenand so pulmonology was consulted. Patient was diuresed and this did help with the shortness of breath. Pulmonologyrecommended hospice but patient was adamantly opposed to this. With diuresis patient shortness of breath gradually improved and he felt much better. He had walking pulse ox on 11/12/2024 which showed that he required 6 L of oxygen. Patient was therefore discharged home on6 L of oxygen with ambulation on 11/12/2024. He was discharged on a 5-day courseof p.o. Augmentin and on a 4-day course of p.o. prednisone. He was also discharged on p.o. Lasix 40 mg daily with 20 mEq of potassium daily supplement ation. He is follow-up with his primary care doctor with his tooling mechanic and guest request runner within 1 to 2 weeks. Patient seen and examined. He said he felt much better and was eager to be discharged home. He had no active complaints. Review of systems otherwise negative. Labs and vitals reviewed. Home medication reviewed and reconciled. Physical Exam Const alert, oriented x3, no apparent distress, average body habitus and well nourished Constitutional Narrative: frail, weak General Appearance: cooperative and comfortable Orientation / Consciousness: awake HEENT normocephalic, head/scalp atraumatic, hearing grossly normal bilaterally, moist oral mucous membranes and oropharynx normal Mouth: oral and palatal mucosa normal Eyes PERRL and EOMs intact bilaterally Neck no lymphadenopathy, supple and no JVD Lymph Lymphatic: no lymphadenopathy noted and no lymphedema noted Resp Resp Narrative: mildly diminished breath sounds bibasally, no wheezes or crackles. On 4 L of oxygen by nasal canula Auscultation: wheezes Cardio regular rate, regular rhythm, S1 normal heart sound, S2 normal heart sound and no murmurs GI normal to inspection, nondistended, normoactive bowel sounds, soft to palpation,non-tender and non-distended Extremity normal to inspection, full ROM, normal capillary refill, no clubbing, cyanosis or edema and no calftenderness General Extremity: no tenderness to palpation of joints or extremities Skin General Skin Exam: no breakdown Neuro CN's II-XII intact bilaterally, moves all extremities, no focal motor deficits and no sensory deficits noted Sensorium / Orientation: awake, alert, oriented to person, oriented to place andoriented to time Speech: speech normal Motor Exam: strength 5/5 throughout and general weakness Psych thought process normal, cooperative and affect normal Appearance: appropriate Medical Records Data Medical Nutrition Assessment Dietitian: Malnutrition Criteria Met Start: 11/08/24 15:10 Freq: Status: Active Protocol: Document 11/08/24 15:10 RMA (Rec: 11/08/24 15:10 RMA [id number]) Nutrition Malnutrition Evidence of Yes Malnutrition Exists Malnutrition (severe Acute Illness/Injury ): Evidenced By Suboptimal Energy Intake (Severe),Weight Loss (Severe) Intake Problem Inadequate Oral Intake Etiology related to swallowing difficulty Signs/Symptoms as evidenced by NPO x 3 days Status Resolved Problem Clinical Problem Acute Disease or Injury Related Malnutrition Etiology severe protein-calorie malnutrition in the context of acute illness related to inadequate oral intake and difficulty chewing/swallowing Signs/Symptoms as evidenced by PO meeting less than 50% estimated nutrition needs x 1 week, extended NPO x 3-4 days and weight loss ~5-6% in less than 1 week Status Active Problem Recommendation Dietitian Will adjust diet to carbohydrate-controlled (no caloric Recommendations/ restriction). Changes Consistency/texture as per GUEST SERVICE REPRESENTATIVE. Will add 120mL PO glucerna shake w/ meals 3 times per day. Limit sodium and fluids as indicated once PO established with meals. Additional ONS and/or TF support to supplement PO as indicated if PO established suboptimal at meals and/or weight continues to decline. Weight / BMI Weight Weight: 164 lb 0.383 oz Body Mass Index (BMI) 21.6 ABG / Lab / Microbiology Data 11/12/24 05:10 11/12/24 05:10 Laboratory: Laboratory Results - last 24 hr 11/11/24 16:53: POC Glucose 245 H 11/11/24 22:01: POC Glucose 392 H 11/12/24 05:10: WBC 9.3, RBC 2.77 L, Hgb 9.1 L, Hct 27.6 L, MCV 99.6 H, MCH 32.9H, MCHC 33.0, RDW Std Deviation 50.1 H, RDW Coeff of Christine 13.8, Plt Count 237, MPV 9.9, Immature Gran % (Auto) 0.500, Neut % (Auto) 61.8, Lymph % (Auto) 27.3, Appling % (Auto) 7.8, Eos % (Auto) 2.5, Baso % (Auto) 0.1, Absolute Neuts (auto) 5.8, Absolute Lymphs (auto) 2.54, Nucleated RBC % 0, Sodium 140, Potassium 4.0, Chloride 97 L, Carbon Dioxide 32.8 H, Anion Gap 10, BUN 29 H, Creatinine 1.66 H,Estim Creat Clear Calc 41.71 L, Est GFR (MDRD) Non-Af 43 L, BUN/Creatinine Ratio17.4, Glucose 183 H, Calcium 8.6 11/12/24 08:08: POC Glucose 162 H 11/12/24 11:56: POC Glucose 320 H Microbiology: Microbiology 11/04/24 16:00 Mucosa - Nasopharyngeal Respiratory Panel (PCR) - Final 11/04/24 19:08 Urine, Clean Catch Legionella Antigen - Final 11/04/24 19:08 Urine, Clean Catch Streptococcus pneumoniae Antigen (M - Final 11/03/24 18:55 Mucosa - Nose SARS-CoV-2, Influenza & RSV (PCR) - Final D/C Instructions Discharge Diet: Low fat / Low cholesterol Discharge Activity: Return to Normal Activity Weight Bearing Status: Weight bearing as tolerated Call your doctor if you observe: Fever of 101 or Higher, Shortness of breath, Dizziness, Swelling in the ankles and Chest pain DC O2, CPAP, BIPAP Needs Home O2 Discharge instructions: Yes Type of respiratory needs?: Oxygen (6) Oxygen frequency: With Ambulation Oxygen liters per minute during Ambulation: 6 DC home with Oxygen: Yes Home O2 MD Review: I have reviewed the oxygen testing, and the patient qualifies for home oxygen equipment and portability. The patient is mobile in the home and the community. Meaningful Use Info Meaningful Use Meaningful Use Diagnoses (Choose all that apply): None applicable Ischemic Stroke Statin Dosing Therapy Reference: STATIN DOSE THERAPY REFERENCE: * Patients > 75 years receive moderate or high dose statin therapy. * Patients 75 years or YOUNGER should receive HIGH intensity statin dose unless contraindicated. You will be required to document reason for non-treatment if statin daily dose does not meet guidelines. HIGH DOSE STATIN THERAPY DAILY Atorvastatin > than or = to 40 mg Rosuvastatin > than or = to 20 mg Amlodipine + Atorvastatin > than or = to 2.5/40 mg Ezetimibe + Simvastatin 10/80 mg Simvastatin 80mg Discharge Plan Admission Admit Date/Time: 11/03/24 21:18 Primary Reason for Your Visit: acute on chronic respiratory failure, aspiration pneumonia Attending Provider: Rafaela Pelayo Primary Care Provider: Royce Carroll Consulting Providers: Kam Rogers; Anabell Hinkle; Олег Horne Instructions Patient Instructions: Dysphagia Aspiration Discharge Orders/Prescriptions Prescriptions: New furosemide 40 mg tablet 40 mg PO DAILY Qty: 30 2RF potassium chloride [Klor-Con M20] 20 mEq tablet,ER particles/crystals 20 meq PO DAILY Qty: 30 1RF prednisone 20 mg Tablet 40 mg PO BREAKFAST 4 Days Qty: 8 8RF amoxicillin-pot clavulanate 875-125 mg tablet 1 tab PO BID Qty: 10 0RF Continued clopidogrel 75 MG tablet 75 mg PO DAILY Patient Comments: cholesterol metoprolol tartrate 50 MG tablet 50 mg PO BID Patient Comments: treat Blood pressure sertraline 100 mg tablet 100 mg PO DAILY Patient Comments: TAKE 1 TABLET BY MOUTH EVERY DAY amlodipine 5 mg tablet 5 mg PO DAILY Patient Comments: TAKE 1 TABLET BY MOUTH EVERY DAY ipratropium-albuterol 0.5 mg-3 mg(2.5 mg base)/3 mL Solution For Nebulization 3 ml inhalation 4X/DAY Qty: 120 0RF albuterol sulfate 2.5 mg /3 mL (0.083 %) solution for nebulization 2.5 mg inhalation Q2H PRN PRN (Reason: shortness of breath or wheezing) Qty: 1 0RF Rx Instructions: Use every two hours as needed for shortness of breath atorvastatin 40 mg tablet 40 mg PO QHS metformin 500 mg tablet 500 mg PO BID fluticasone propionate 50 mcg/actuation spray,suspension 1 spray INTRANASAL BID Trelegy Ellipta 100-62.5-25 mcg blister with device 1 ea inhalation DAILY albuterol sulfate 90 mcg/actuation HFA aerosol inhaler 2 puff inhalation Q4H PRN PRN (Reason: wheezing) Referrals / Follow Up: Royce Carroll MD [Primary Care Provider] - Within 1 Week Disposition Disposition (needs filled in before D/C Order can be placed): Home Health Service Charges/Coding Visit Charges Inpatient E&M: 77821 Disch Hosp >30min 11/12/24 1533 Cosigner Signature (if applicable): CC: Dr. Rafaela Pelayo MD; Dr. Royce Carroll MD~ Signed [facility]04-18-2025 Discharge summary [facility] Medical Records Department [address] [place] [address] Instructions for Home/Discharge Instructions 11/12/24 1525 MR#: [id number] Acct: [id number] Name: KAM GREENBERG Rep #:[id number] : 1950 74 From: Rafaela Pelayo MD PCP: Dr. Rocye Carroll MD Status:A DM IN Discharge Instructions Diet Discharge Diet: Low fat / Low cholesterol DC O2, CPAP, BIPAP needs Home O2 Discharge instructions: Yes Type of respiratory needs?: Oxygen (6) Oxygen frequency: With Ambulation Oxygen liters per minute during Ambulation: 6 Dressing / Incision Discharge Activity: Return to Normal Activity Weight Bearing Status: Weight bearing as tolerated Dressing / Incision Call your doctor if you observe: Fever of 101 or Higher, Shortness of breath, Dizziness, Swelling in the ankles and Chest pain Follow Up Care Test Results: Test results from this visit will be discussed in further detail at your follow- up appointment, if applicable. Discharge Plan Admission Admit Date/Time: 11/03/24 21:18 Primary Reason for Your Visit: acute on chronic respiratory failure, aspiration pneumonia Attending Provider: Rafaela Pelayo Primary Care Provider: Royce Carroll Consulting Providers: Kam Rogers; Anabell Hinkle; Олег Horne Instructions Patient Instructions: Dysphagia Aspiration Discharge Orders/Prescriptions Prescriptions: New furosemide 40 mg tablet 40 mg PO DAILY Qty: 30 2RF potassium chloride [Klor-Con M20] 20 mEq tablet,ER particles/crystals 20 meq PO DAILY Qty: 30 1RF prednisone 20 mg Tablet 40 mg PO BREAKFAST 4 Days Qty: 8 8RF amoxicillin-pot clavulanate 875-125 mg tablet 1 tab PO BID Qty: 10 0RF Continued clopidogrel 75 MG tablet 75 mg PO DAILY Patient Comments: cholesterol metoprolol tartrate 50 MG tablet 50 mg PO BID Patient Comments: treat Blood pressure sertraline 100 mg tablet 100 mg PO DAILY Patient Comments: TAKE 1 TABLET BY MOUTH EVERY DAY amlodipine 5 mg tablet 5 mg PO DAILY Patient Comments: TAKE 1 TABLET BY MOUTH EVERY DAY ipratropium-albuterol 0.5 mg-3 mg(2.5 mg base)/3 mL Solution For Nebulization 3 ml inhalation 4X/DAY Qty: 120 0RF albuterol sulfate 2.5 mg /3 mL (0.083 %) solution for nebulization 2.5 mg inhalation Q2H PRN PRN (Reason: shortness of breath or wheezing) Qty: 1 0RF Rx Instructions: Use every two hours as needed for shortness of breath atorvastatin 40 mg tablet 40 mg PO QHS metformin 500 mg tablet 500 mg PO BID fluticasone propionate 50 mcg/actuation spray,suspension 1 spray INTRANASAL BID Trelegy Ellipta 100-62.5-25 mcg blister with device 1 ea inhalation DAILY albuterol sulfate 90 mcg/actuation HFA aerosol inhaler 2 puff inhalation Q4H PRN PRN (Reason: wheezing) Referrals / Follow Up: Royce Carroll MD [Primary Care Provider] - Within 1 Week Disposition Disposition (needs filled in before D/C Order can be placed): Home Health Service 11/12/24 1526Nanverito Pelayo MD CC: Dr. Kam Rogers DO; Dr. Олег Horne MD; Dr. Anabell Hinkle MD; Dr.Victor Annita MD~ Signed [facility]04-18-[address] [facility]04-18-2025 Telephone encounter Note* Telephone Encounter - Gianni Velazquez APRN.CNP - 11/12/2024 1:44 PM EDT Attempted to call patient again. Not able to leave a vm. Called pt and left a message regarding Kam's results: lymph nodes are stable. No changes. He had an incidental finding of pneumonia andhe was recently admitted with this. He should keep his follow up with Dr. Rothman in December. Please call back if any further questions or concerns. Gianni Velazquez APRN.CNP [facility] Work Phone: [phone] 582-329804-18-2025 Miscellaneous Notes* Telephone Encounter - Gianni Velazquez APRN.CNP - 11/12/2024 1:44 PM EDT Attempted to call patient again. Not able to leave a vm. Called pt and left a message regarding Kam's results: lymph nodes are stable. No changes. He had an incidental finding of pneumonia andhe was recently admitted with this. He should keep his follow up with Dr. Rothman in December. Please call back if any further questions or concerns. Gianni Velazquez APRN.CNP * Telephone Encounter - Gianni Velazquez APRN.CNP - 10/26/2024 4:00 PM EDT Attempted to call patient, but mailbox is full. [employer] message sent. Gianni Velazquez APRN.CNP * Telephone Encounter - Gianni Velazquez APRN.CNP - 10/22/2024 4:43 PM EDT Attempt to call patient, but mailbox is full Plan to discuss CT Results Lymph nodes are stable. It looks like there is a new infection/inflammatory opacity or atelectasis.Would like to discuss symptoms. Gianni Velazquez APRN.CNP October 22, 2024 4:43 PM documented in this encounter[facility] Progress note Author Rafaela Pelayo [facility] Note Date/Time November 11, 2024 4:0 7pm [facility] Medical Records Department [address] [place] [address] Progress Note 11/11/24 1251 MR#: [id number] Acct: [id number] Name: KAM GREENBERG Rep #:[id number] : 1950 74 From: Rafaela Pelayo MD PCP: Dr. Royce Carroll MD Status:A DM IN Location: [place] [address] Subjective Subjective Patient seen and examined. HE had no active complaints. He was on 4L of oxygen which is his baseline. Review of systems is otherwise negative. Objective Data Objective Data Vital Signs: Vital Signs Temp Pulse Resp BP Pulse Ox O2 Del Method O2 Flow Rate 98.3 F 82 20 H 134/62 H 96 Nasal Cannula 4 11/11/24 09:02 11/11/24 11:02 11/11/24 11:02 11/11/24 09:02 11/11/24 09:02 11/11/24 09:04 11/11/24 09:04 FiO2 37 11/04/24 22:00 Oxygen Flow Rate (L/min) 4 Oxygen Delivery Method Nasal Cannula Weight: 168 lb 10.458 oz Body Mass Index (BMI) 22.2 Intake & Output: Intake and Output for Last 24 Hours 11/09/24 11/10/24 11/11/24 23:59 23:59 23:59 Intake Total 680 / 680 512.5 / 512.5 354 / 354 Output Total 950 / 1325 2250 / 2250 1150 / 1150 Balance -270 / -645 -1737.5 / -1737.5 -796 / -796 Medical Nutrition Assessment Dietitian: Malnutrition Criteria Met Start: 11/08/24 15:10 Freq: Status: Active Protocol: Document 11/08/24 15:10 RMA (Rec: 11/08/24 15:10 RMA [id number]) Nutrition Malnutrition Evidence of Yes Malnutrition Exists Malnutrition (severe Acute Illness/Injury ): Evidenced By Suboptimal Energy Intake (Severe),Weight Loss (Severe) Intake Problem Inadequate Oral Intake Etiology related to swallowing difficulty Signs/Symptoms as evidenced by NPO x 3 days Status Resolved Problem Clinical Problem Acute Disease or Injury Related Malnutrition Etiology severe protein-calorie malnutrition in the context of acute illness related to inadequate oral intake and difficulty chewing/swallowing Signs/Symptoms as evidenced by PO meeting less than 50% estimated nutrition needs x 1 week, extended NPO x 3-4 days and weight loss ~5-6% in less than 1 week Status Active Problem Recommendation Dietitian Will adjust diet to carbohydrate-controlled (no caloric Recommendations/ restriction). Changes Consistency/texture as per GUEST SERVICE REPRESENTATIVE. Will add 120mL PO glucerna shake w/ meals 3 times per day. Limit sodium and fluids as indicated once PO established with meals. Additional ONS and/or TF support to supplement PO as indicated if PO established suboptimal at meals and/or weight continues to decline. Lab / Micro Data 11/11/24 06:12 11/11/24 06:12 Labs: Laboratory Results - last 24 hr 11/10/24 15:43: POC Glucose 156 H 11/10/24 21:10: POC Glucose 266 H 11/11/24 06:12: WBC 11.7 H, RBC 2.81 L, Hgb 9.1 L, Hct 28.3 L, MCV 100.7 H, MCH 32.4 H, MCHC 32.2, RDW Std Deviation 50.9 H, RDW Coeff of Christine 13.8, Plt Count 223, MPV 9.6, Immature Gran % (Auto) 0.500, Neut % (Auto) 62.7, Lymph % (Auto) 27.9, Appling % (Auto) 5.5, Eos % (Auto) 3.3, Baso % (Auto) 0.1, Absolute Neuts (auto) 7.3, Absolute Lymphs (auto) 3.25, Nucleated RBC % 0, Sodium 141, Potassium 3.9, Chloride 100, Carbon Dioxide 33.0 H, Anion Gap 8, BUN 27 H, Creatinine 1.51 H, Estim Creat Clear Calc 47.14 L, Est GFR (MDRD) Non-Af 48 L, BUN/Creatinine Ratio 17.8, Glucose 156 H, Calcium 8.6 11/11/24 06:24: POC Glucose 155 H 11/11/24 11:19: POC Glucose 218 H Micro: Microbiology 11/04/24 16:00 Mucosa - Nasopharyngeal Respiratory Panel (PCR) - Final 11/04/24 19:08 Urine, Clean Catch Legionella Antigen - Final 11/04/24 19:08 Urine, Clean Catch Streptococcus pneumoniae Antigen (M - Final 11/03/24 18:55 Mucosa - Nose SARS-CoV-2, Influenza & RSV (PCR) - Final Rhythm Strip Rhythm Strip: Sinus Rhythm Rate: 80 Ectopy: PVC(s) Physical Exam Const alert, oriented x3, no apparent distress, average body habitus and well nourished Constitutional Narrative: frail, weak General Appearance: cooperative HEENT normocephalic, head/scalp atraumatic, hearing grossly normal bilaterally, moist oral mucous membranes and oropharynx normal Eyes PERRL and EOMs intact bilaterally Neck no lymphadenopathy, supple and no JVD Lymph Lymphatic: no lymphadenopathy noted and no lymphedema noted Resp Resp Narrative: mildly diminished breath sounds bibasally, no wheezes or crackles. On 4 L of oxygen by nasal canula Cardio regular rate, regular rhythm, S1 normal heart sound and S2 normal heart sound GI normal to inspection, nondistended, normoactive bowel sounds, soft to palpation and non-tender Extremity normal to inspection, full ROM, normal capillary refill, no clubbing, cyanosis or edema and no calf tenderness General Extremity: no tenderness to palpation of joints or extremities Skin General Skin Exam: no breakdown Neuro CN's II-XII intact bilaterally, moves all extremities, no focal motor deficits and no sensory deficits noted Sensorium / Orientation: awake, alert, oriented to person, oriented to place andoriented to time Speech: speech normal Motor Exam: strength 5/5 throughout and general weakness Psych thought process normal, cooperative and affect normal Appearance: appropriate Assessment & Plan Assessment/Plan (1) Aspiration pneumonia: QUALIFIERS: Aspiration pneumonia type: unspecified Laterality: bilateral Lung location: unspecified part of lung Qualified Code(s): J69.0 - Pneumonitis due to inhalation of food and vomit (2) COPD exacerbation: PLAN: Plan #Acute on chronic hypoxic respiratory failure due to COPD and aspiration pneumonia * remains on 4L of oxygen. However he continues to desaturate very easily with exertion. * CXR showed evidence of pneumonia * on IV solumedrol * on IV zosyn. Breathing treatment with bronchodilators * he had modified barium swallow and coughed during the process; modified barium swallow showed moderate oropharyngeal dysphagia. * speech therapy on board. TO have further speech evaluation again today. * titrate oxygen to maintain sats >90%. * Breathing treatment with bronchodilators. Titrate oxygen to maintain sats >90% * Respiratory panel was negative. Urine for strep and Legionella were also negative. * CTA chest showed no evidence of PE and showed small left pleural effusion with calcified left pleural plaques. * pulmonology on board * on PO prednisone * #Cardiomyopathy * has EF of 45% with mild to moderate global hypokinesis of the left ventricle and stage I diastolic dysfunction and pulmonary artery systolic pressure of 65mmHg * On 4 L of oxygen which is his baseline * echo from 2022 showed EF of 55-60% and stage I diastolic dysfunction and normal LV systolic function. * Cardiology did review him based on the echo findings recommended adding on losartan 50 mg every afternoon to his medication regimen. Per cardiology once his pulmonary status is back to baseline to have a limited echo in 6 weeks time to evaluate his pulmonary artery pressures and ventricular function. * Troponins were mildly elevated on admission at 131 and peaked at 159 but trended downwards to 133. * received lasix yesterday, will give another dose of lasix today * #CAD s/p CABG and stents * on plavix and statin as well as beta kaushik. Also on losartan * #CKD stage III: Creatinine is 1.51 today. Baseline creatinine has been around 1.5 from admission. Will monitor. #Hypertension: on metoprolol and amlodipine #GERD: on PPI DVT prophylaxis: heparin * Charges/Coding Visit Charges Inpatient E&M: 32084 Subs Hosp L2 11/11/24 1607 <Electronically signed by Rafaela Pelayo MD> Rafaela Pelayo MD Cosigner Signature (if applicable): CC: ~ Signed [facility] Work Phone: [phone] Progress note [facility] Medical Records Department [address] [place] [address] Progress Note 11/11/24 1251 MR#: [id number] Acct: [id number] Name: KAM GREENBERG Rep #:[id number] : 1950 74 From: Rafaela Pelayo MD PCP: Dr. Royce Carroll MD Status:A DM IN Location: [place] [id number] Subjective Subjective Patient seen and examined. HE had no active complaints. He was on 4L of oxygen which is his baseline. Review of systems is otherwise negative. Objective Data Objective Data Vital Signs: Vital Signs Temp Pulse Resp BP Pulse Ox O2 Del Method O2 Flow Rate 98.3 F 82 20 H 134/62 H 96 Nasal Cannula 4 11/11/24 09:02 11/11/24 11:02 11/11/24 11:02 11/11/24 09:02 11/11/24 09:02 11/11/24 09:04 11/11/24 09:04 FiO2 37 11/04/24 22:00 Oxygen Flow Rate (L/min) 4 Oxygen Delivery Method Nasal Cannula Weight: 168 lb 10.458 oz Body Mass Index (BMI) 22.2 Intake & Output: Intake and Output for Last 24 Hours 11/09/24 11/10/24 11/11/24 23:59 23:59 23:59 Intake Total 680 / 680 512.5 / 512.5 354 / 354 Output Total 950 / 1325 2250 / 2250 1150 / 1150 Balance -270 / -645 -1737.5 / -1737.5 -796 / -796 Medical Nutrition Assessment Dietitian: Malnutrition Criteria Met Start: 11/08/24 15:10 Freq: Status: Active Protocol: Document 11/08/24 15:10 RMA (Rec: 11/08/24 15:10 RMA [id number]) Nutrition Malnutrition Evidence of Yes Malnutrition Exists Malnutrition (severe Acute Illness/Injury ): Evidenced By Suboptimal Energy Intake (Severe),Weight Loss (Severe) Intake Problem Inadequate Oral Intake Etiology related to swallowing difficulty Signs/Symptoms as evidenced by NPO x 3 days Status Resolved Problem Clinical Problem Acute Disease or Injury Related Malnutrition Etiology severe protein-calorie malnutrition in the context of acute illness related to inadequate oral intake and difficulty chewing/swallowing Signs/Symptoms as evidenced by PO meeting less than 50% estimated nutrition needs x 1 week, extended NPO x 3-4 days and weight loss ~5-6% in less than 1 week Status Active Problem Recommendation Dietitian Will adjust diet to carbohydrate-controlled (no caloric Recommendations/ restriction). Changes Consistency/texture as per GUEST SERVICE REPRESENTATIVE. Will add 120mL PO glucerna shake w/ meals 3 times per day. Limit sodium and fluids as indicated once PO established with meals. Additional ONS and/or TF support to supplement PO as indicated if PO established suboptimal at meals and/or weight continues to decline. Lab / Micro Data 11/11/24 06:12 11/11/24 06:12 Labs: Laboratory Results - last 24 hr 11/10/24 15:43: POC Glucose 156 H 11/10/24 21:10: POC Glucose 266 H 11/11/24 06:12: WBC 11.7 H, RBC 2.81 L, Hgb 9.1 L, Hct 28.3 L, MCV 100.7 H, MCH 32.4 H, MCHC 32.2, RDW Std Deviation 50.9 H, RDW Coeff of Christine 13.8, Plt Count 223, MPV 9.6, Immature Gran % (Auto) 0.500, Neut % (Auto) 62.7, Lymph % (Auto) 27.9, Appling % (Auto) 5.5, Eos % (Auto) 3.3, Baso % (Auto) 0.1, Absolute Neuts (auto) 7.3, Absolute Lymphs (auto) 3.25, Nucleated RBC % 0, Sodium 141, Potassium 3.9, Chloride 100, Carbon Dioxide 33.0 H, Anion Gap 8, BUN 27 H, Creatinine 1.51 H, Estim Creat Clear Calc 47.14 L, Est GFR (MDRD) Non-Af 48 L, BUN/Creatinine Ratio 17.8, Glucose 156 H, Calcium 8.6 11/11/24 06:24: POC Glucose 155 H 11/11/24 11:19: POC Glucose 218 H Micro: Microbiology 11/04/24 16:00 Mucosa - Nasopharyngeal Respiratory Panel (PCR) - Final 11/04/24 19:08 Urine, Clean Catch Legionella Antigen - Final 11/04/24 19:08 Urine, Clean Catch Streptococcus pneumoniae Antigen (M - Final 11/03/24 18:55 Mucosa - Nose SARS-CoV-2, Influenza & RSV (PCR) - Final Rhythm Strip Rhythm Strip: Sinus Rhythm Rate: 80 Ectopy: PVC(s) Physical Exam Const alert, oriented x3, no apparent distress, average body habitus and well nourished Constitutional Narrative: frail, weak General Appearance: cooperative HEENT normocephalic, head/scalp atraumatic, hearing grossly normal bilaterally, moist oral mucous membranes and oropharynx normal Eyes PERRL and EOMs intact bilaterally Neck no lymphadenopathy, supple and no JVD Lymph Lymphatic: no lymphadenopathy noted and no lymphedema noted Resp Resp Narrative: mildly diminished breath sounds bibasally, no wheezes or crackles. On 4 L of oxygen by nasal canula Cardio regular rate, regular rhythm, S1 normal heart sound and S2 normal heart sound GI normal to inspection, nondistended, normoactive bowel sounds, soft to palpation and non-tender Extremity normal to inspection, full ROM, normal capillary refill, no clubbing, cyanosis or edema and no calftenderness General Extremity: no tenderness to palpation of joints or extremities Skin General Skin Exam: no breakdown Neuro CN's II-XII intact bilaterally, moves all extremities, no focal motor deficits and no sensory deficits noted Sensorium / Orientation: awake, alert, oriented to person, oriented to place andoriented to time Speech: speech normal Motor Exam: strength 5/5 throughout and general weakness Psych thought process normal, cooperative and affect normal Appearance: appropriate Assessment & Plan Assessment/Plan (1) Aspiration pneumonia: QUALIFIERS: Aspiration pneumonia type: unspecified Laterality: bilateral Lung location: unspecifiedpart of lung Qualified Code(s): J69.0 - Pneumonitis due to inhalation of food and vomit (2) COPD exacerbation: PLAN: Plan #Acute on chronic hypoxic respiratory failure due to COPD and aspiration pneumonia * remains on 4L of oxygen. However he continues to desaturate very easily with exertion. * CXR showed evidence of pneumonia * on IV solumedrol * on IV zosyn. Breathing treatment with bronchodilators * he had modified barium swallow and coughed during the process; modified barium swallow showed moderate oropharyngeal dysphagia. * speech therapy on board. TO have further speech evaluation again today. * titrate oxygen to maintain sats >90%. * Breathing treatment with bronchodilators. Titrate oxygen to maintain sats >90% * Respiratory panel was negative. Urine for strep and Legionella were also negative. * CTA chest showed no evidence of PE and showed small left pleural effusion with calcified left pleural plaques. * pulmonology on board * on PO prednisone * #Cardiomyopathy * has EF of 45% with mild to moderate global hypokinesis of the left ventricle and stage I diastolic dysfunction and pulmonary artery systolic pressure of 65mmHg * On 4 L of oxygen which is his baseline * echo from 2022 showed EF of 55-60% and stage I diastolic dysfunction and normal LV systolic function. * Cardiology did review him based on the echo findings recommended adding on losartan 50 mg every afternoon to his medication regimen. Per cardiology once his pulmonary status is back to baseline to have a limited echo in 6 weeks time to evaluate his pulmonary artery pressures and ventricular function. * Troponins were mildly elevated on admission at 131 and peaked at 159 but trended downwards to 133. * received lasix yesterday, will give another dose of lasix today * #CAD s/p CABG and stents * on plavix and statin as well as beta kaushik. Also on losartan * #CKD stage III: Creatinine is 1.51 today. Baseline creatinine has been around 1.5 from admission. Will monitor. #Hypertension: on metoprolol and amlodipine #GERD: on PPI DVT prophylaxis: heparin * Charges/Coding Visit Charges Inpatient E&M: 05733 Subs Hosp L2 11/11/24 1600 Rafaela Pelayo MD Cosigner Signature (if applicable): CC: ~ Signed [facility]04-16-2025 Telephone encounter Note* Telephone Encounter - Milad Kowalski LPN - 11/10/2024 4:41 PM EDT Below left on identified vm. Milad Kowalski LPN [facility]04-16-2025 Miscellaneous Notes* Telephone Encounter - Milad Kowalski LPN - 11/10/2024 4:41 PM EDT Below left on identified vm. Milad Kowalski LPN * Telephone Encounter - Royce Carroll MD - 11/10/2024 4:30 PM EDT I will follow. * Telephone Encounter - Meka Fuentes RN - 11/10/2024 11:40 AM EDT Sera with [facility] calls to ask if provider would follow their HH orders for SN, PT, OT, ST following discharge from [facility] for COPD and aspiration pneumonia. Please call Sera back at [phone] Meka Fuentes RN [facility] Telephone encounter Note * Telephone Encounter - Royce Carroll MD - 11/10/2024 4:30 PM EDT I will follow. [facility]04-16-2025 Progress note Author Kashif Rothman [facility] Note Date/Time November 10, 2024 1:0 8pm [facility] Medical Records Department [address] [place] [address] Progress Note - Twisting [employer] Operator 11/10/24 1042 MR#: [id number] Acct: [id number] Name: KAM GREENBERG Rep #:[id number] : 1950 74 From: Kashif Rothman DO PCP: Dr. Royce Carroll MD Status:A DM IN [facility] Assessment & Plan Assessment/Plan (1) COPD exacerbation: (2) Aspiration pneumonia: QUALIFIERS: Aspiration pneumonia type: unspecified Laterality: bilateral Lung location: unspecified part of lung Qualified Code(s): J69.0 - Pneumonitis due to inhalation of food and vomit PLAN: Plan RECOMMENDATIONS: 1. Supplemental oxygen to maintain saturations at or above 90%. 2. Continue antibiotics to complete 7 days of therapy. 3. Continue scheduled bronchodilators and steroids. 4. Maintain aspiration precautions. 5. Anticipate home-going exertional supplemental oxygen need of 8 L/min. 6. Will administer a one-time dose of IV Lasix today, but will defer ongoing need for diuretics to hospitalist/cardiology. 7. The patient should follow-up with his primary tooling mechanic, Dr. Clark Rothman at [facility] after discharge. 8. Given the end-stage nature of his lung disease, [facility] 9. Will sign off. Please call with any additional questions. IMPRESSIONS: 1. Acute on chronic hypoxemic respiratory failure Presumed secondary to COPD exacerbation due to aspiration pneumonia. The patient has known end-stage lung disease along with a baseline oxygen requirement of 4 L/min. Unfortunately, the patient continues to desaturate withany form of physical exertion. He has been maintained on appropriate antimicrobials along with scheduled bronchodilators and steroids. CTA chest yesterday demonstrated no PE, but did confirm bilateral emphysematous changes with subpleural groundglass changes and basilar fibrotic changes, right greater than left. Accordingly, I would recommend that the patient be transition to prednisone, with plans to complete a 5-day burst of 40 mg daily. Unfortunately,it is unlikely that the patient will be unable to improve significantly from this current point given the end-stage nature of his lung disease. However, given his depressed ejection fraction, will administer a one-time dose of IV Lasix today. I will defer the ongoing need for diuretics to the hospitalist service/cardiology. 2. Cardiomyopathy/history of coronary artery disease status post CABG/hypertension Continue current medical management per cardiology recommendations. 3. Chronic tobacco dependency/GERD/hyperlipidemia/diabetes mellitus Complicates care, management, recovery and prognosis. Smoking cessation is strongly advised. This note was generated with [email or web address] dictation software. It may contain incorrectwords, spelling, and punctuation that were not noted in checking the note beforesigning. Subjective Subjective The patient was seen and examined at the bedside this morning. Events from the last 24 hours have been reviewed. The patient is currently afebrile, hemodynamically stable and maintaining appropriate oxygen saturations on 4 L/min. White blood cell count is normal. Hemoglobin and platelet count are stable. Creatinine is stable at 1.32. CTA chest yesterday demonstrated no PE, but did confirm bilateral emphysematous changes with subpleural groundglass changes and basilar fibrotic changes, right greater than left. Objective Data Objective Data The patient's most recent lab work, culture data and imaging studies have all been personally reviewed. Infectious workup has been unrevealing to date. Vital Signs: Vital Signs Temp Pulse Resp BP Pulse Ox O2 Del Method O2 Flow Rate 98.7 F 88 18 156/79 H 93 Nasal Cannula 4 11/10/24 08:37 11/10/24 08:45 11/10/24 08:37 11/10/24 08:45 11/10/24 08:37 11/10/24 10:00 11/10/24 10:00 FiO2 37 11/04/24 22:00 Oxygen Flow Rate (L/min) 4 Oxygen Delivery Method Nasal Cannula Weight: 169 lb 5.04 oz Body Mass Index (BMI) 22.3 Intake & Output: Intake and Output for Last 24 Hours 11/08/24 11/09/24 11/10/24 23:59 23:59 23:59 Intake Total 510 / 560 680 / 680 100 / 100 Output Total 700 / 950 950 / 1325 625 / 625 Balance -190 / -390 -270 / -645 -525 / -525 Medical Nutrition Assessment Dietitian: Malnutrition Criteria Met Start: 11/08/24 15:10 Freq: Status: Active Protocol: Document 11/08/24 15:10 RMA (Rec: 11/08/24 15:10 RMA [id number]) Nutrition Malnutrition Evidence of Yes Malnutrition Exists Malnutrition (severe Acute Illness/Injury ): Evidenced By Suboptimal Energy Intake (Severe),Weight Loss (Severe) Intake Problem Inadequate Oral Intake Etiology related to swallowing difficulty Signs/Symptoms as evidenced by NPO x 3 days Status Resolved Problem Clinical Problem Acute Disease or Injury Related Malnutrition Etiology severe protein-calorie malnutrition in the context of acute illness related to inadequate oral intake and difficulty chewing/swallowing Signs/Symptoms as evidenced by PO meeting less than 50% estimated nutrition needs x 1 week, extended NPO x 3-4 days and weight loss ~5-6% in less than 1 week Status Active Problem Recommendation Dietitian Will adjust diet to carbohydrate-controlled (no caloric Recommendations/ restriction). Changes Consistency/texture as per GUEST SERVICE REPRESENTATIVE. Will add 120mL PO glucerna shake w/ meals 3 times per day. Limit sodium and fluids as indicated once PO established with meals. Additional ONS and/or TF support to supplement PO as indicated if PO established suboptimal at meals and/or weight continues to decline. Lab / Micro Data Attestation: I reviewed the patient's lab results. 11/10/24 07:55 11/10/24 07:55 Labs: Laboratory Results - last 24 hr 11/09/24 11:34: POC Glucose 312 H 11/09/24 16:30: POC Glucose 290 H 11/09/24 20:40: POC Glucose 293 H 11/10/24 06:17: POC Glucose 232 H 11/10/24 07:55: WBC 9.2, RBC 2.81 L, Hgb 9.2 L, Hct 28.3 L, MCV 100.7 H, MCH 32.7 H, MCHC 32.5, RDW Std Deviation 50.4 H, RDW Coeff of Christine 13.7, Plt Count 217, MPV 9.5, Immature Gran % (Auto) 0.700, Neut % (Auto) 83.0 H, Lymph % (Auto)10.9 L, Appling % (Auto) 5.1, Eos % (Auto) 0.3, Baso % (Auto) 0.0, Absolute Neuts (auto) 7.6, Absolute Lymphs (auto) 1.00, Nucleated RBC % 0, Sodium 139, Potassium 4.8, Chloride 101, Carbon Dioxide 31.9, Anion Gap 7, BUN 28 H, Creatinine 1.32 H, Estim Creat Clear Calc 54.14, Est GFR (MDRD) Non-Af 57 L, BUN/Creatinine Ratio 21.4 H, Glucose 217 H, Calcium 8.7 Micro: Microbiology 11/04/24 16:00 Mucosa - Nasopharyngeal Respiratory Panel (PCR) - Final 11/04/24 19:08 Urine, Clean Catch Legionella Antigen - Final 11/04/24 19:08 Urine, Clean Catch Streptococcus pneumoniae Antigen (M - Final 11/03/24 18:55 Mucosa - Nose SARS-CoV-2, Influenza & RSV (PCR) - Final Radiography Diagnostic Testing: Radiology Impression Chest CTA 11/09/24 13:41 IMPRESSION: No evidence of pulmonary embolism. Small left pleural effusion with calcified left pleural plaques. Findings suggestive of scarring at the lung bases more prominent on the left side. Scarring in the right middle lobe. Reading Location: [place] [address] Rhythm Strip Rhythm Strip: Sinus Rhythm Rate: 80 Ectopy: PVC(s) Physical Exam Const alert and no apparent distress General Appearance: cooperative HEENT normocephalic, head/scalp atraumatic and moist oral mucous membranes Eyes PERRL, EOMs intact bilaterally and conjunctivae normal Neck supple General: trachea midline Chest inspection of chest normal Resp normal respiratory effort and no use of accessory muscles Effort and Inspection: able to speak in complete sentences Auscultation: diminished lung sounds Cardio regular rate and regular rhythm GI normal to inspection, nondistended, normoactive bowel sounds Extremity no clubbing, cyanosis or edema Skin no rashes or lesions noted Neuro CN's II-XII intact bilaterally, moves all extremities and no focal motor deficits Psych Mood & Affect: flat affect Charges/Coding Visit Charges Inpatient E&M: 87782 Subs Hosp L2 11/10/24 1308 <Electronically signed by Kashif Rohtman DO> Cosigner Signature (if applicable): CC: ~ Signed [facility] Work Phone: [phone] 705-905204-16-2025 Progress note Author Rafaela Pelayo [facility] Note Date/Time November 10, 2024 12: 52pm [facility] Medical Records Department [address] [place] [address] Progress Note 11/10/24 1241 MR#: [id number] Acct: [id number] Name: KAM GREENBERG Rep #:[id number] : 1950 74 From: Rafaela Pelayo MD PCP: Dr. Royce Carroll MD Status:A DM IN Location: [place] [address] Subjective Subjective Patient seen and examined. He was comfortably eating his breakfast this morning. He had no active complaints. He remains on his baseline 4 L of oxygen. Review of systems otherwise negative. Objective Data Objective Data Vital Signs: Vital Signs Temp Pulse Resp BP Pulse Ox O2 Del Method O2 Flow Rate 98.7 F 88 16 156/79 H 93 Nasal Cannula 4 11/10/24 08:37 11/10/24 10:56 11/10/24 10:56 11/10/24 08:45 11/10/24 08:37 11/10/24 10:00 11/10/24 10:00 FiO2 37 11/04/24 22:00 Oxygen Flow Rate (L/min) 4 Oxygen Delivery Method Nasal Cannula Weight: 169 lb 5.04 oz Body Mass Index (BMI) 22.3 Intake & Output: Intake and Output for Last 24 Hours 11/08/24 11/09/24 11/10/24 23:59 23:59 23:59 Intake Total 510 / 560 680 / 680 100 / 100 Output Total 700 / 950 950 / 1325 625 / 625 Balance -190 / -390 -270 / -645 -525 / -525 Medical Nutrition Assessment Dietitian: Malnutrition Criteria Met Start: 11/08/24 15:10 Freq: Status: Active Protocol: Document 11/08/24 15:10 RMA (Rec: 11/08/24 15:10 [facility] [id number]) Nutrition Malnutrition Evidence of Yes Malnutrition Exists Malnutrition (severe Acute Illness/Injury ): Evidenced By Suboptimal Energy Intake (Severe),Weight Loss (Severe) Intake Problem Inadequate Oral Intake Etiology related to swallowing difficulty Signs/Symptoms as evidenced by NPO x 3 days Status Resolved Problem Clinical Problem Acute Disease or Injury Related Malnutrition Etiology severe protein-calorie malnutrition in the context of acute illness related to inadequate oral intake and difficulty chewing/swallowing Signs/Symptoms as evidenced by PO meeting less than 50% estimated nutrition needs x 1 week, extended NPO x 3-4 days and weight loss ~5-6% in less than 1 week Status Active Problem Recommendation Dietitian Will adjust diet to carbohydrate-controlled (no caloric Recommendations/ restriction). Changes Consistency/texture as per GUEST SERVICE REPRESENTATIVE. Will add 120mL PO glucerna shake w/ meals 3 times per day. Limit sodium and fluids as indicated once PO established with meals. Additional ONS and/or TF support to supplement PO as indicated if PO established suboptimal at meals and/or weight continues to decline. Lab / Micro Data 11/10/24 07:55 11/10/24 07:55 Labs: Laboratory Results - last 24 hr 11/09/24 16:30: POC Glucose 290 H 11/09/24 20:40: POC Glucose 293 H 11/10/24 06:17: POC Glucose 232 H 11/10/24 07:55: WBC 9.2, RBC 2.81 L, Hgb 9.2 L, Hct 28.3 L, MCV 100.7 H, MCH 32.7 H, MCHC 32.5, RDW Std Deviation 50.4 H, RDW Coeff of Christine 13.7, Plt Count 217, MPV 9.5, Immature Gran % (Auto) 0.700, Neut % (Auto) 83.0 H, Lymph % (Auto)10.9 L, Appling % (Auto) 5.1, Eos % (Auto) 0.3, Baso % (Auto) 0.0, Absolute Neuts (auto) 7.6, Absolute Lymphs (auto) 1.00, Nucleated RBC % 0, Sodium 139, Potassium 4.8, Chloride 101, Carbon Dioxide 31.9, Anion Gap 7, BUN 28 H, Creatinine 1.32 H, Estim Creat Clear Calc 54.14, Est GFR (MDRD) Non-Af 57 L, BUN/Creatinine Ratio 21.4 H, Glucose 217 H, Calcium 8.7 11/10/24 10:58: POC Glucose 353 H 11/10/24 11:03: NT pro BNP II 8887 H Micro: Microbiology 11/04/24 16:00 Mucosa - Nasopharyngeal Respiratory Panel (PCR) - Final 11/04/24 19:08 Urine, Clean Catch Legionella Antigen - Final 11/04/24 19:08 Urine, Clean Catch Streptococcus pneumoniae Antigen (M - Final 11/03/24 18:55 Mucosa - Nose SARS-CoV-2, Influenza & RSV (PCR) - Final Radiography Diagnostic Testing: Radiology Impression Chest CTA 11/09/24 13:41 IMPRESSION: No evidence of pulmonary embolism. Small left pleural effusion with calcified left pleural plaques. Findings suggestive of scarring at the lung bases more prominent on the left side. Scarring in the right middle lobe. Reading Location: [facility] Rhythm Strip Rhythm Strip: Sinus Rhythm Rate: 80 Ectopy: PVC(s) Physical Exam Const alert, oriented x3, no apparent distress, average body habitus and well nourished Constitutional Narrative: frail, weak General Appearance: cooperative HEENT normocephalic, head/scalp atraumatic, hearing grossly normal bilaterally, moist oral mucous membranes and oropharynx normal Eyes PERRL and EOMs intact bilaterally Neck no lymphadenopathy, supple and no JVD Lymph Lymphatic: no lymphadenopathy noted and no lymphedema noted Resp Resp Narrative: mildly diminished breath sounds bibasally, no wheezes or crackles. On 4 L of oxygen by nasal canula Cardio regular rate, regular rhythm, S1 normal heart sound, S2 normal heart sound and no murmurs GI normal to inspection, nondistended, normoactive bowel sounds, soft to palpation,non-tender and non-distended Extremity normal to inspection, full ROM, normal capillary refill, no clubbing, cyanosis or edema and no calf tenderness General Extremity: no tenderness to palpation of joints or extremities Skin General Skin Exam: no breakdown Neuro CN's II-XII intact bilaterally, moves all extremities, no focal motor deficits and no sensory deficits noted Sensorium / Orientation: awake, alert, oriented to person, oriented to place andoriented to time Speech: speech normal Motor Exam: strength 5/5 throughout and general weakness Psych thought process normal, cooperative and affect normal Appearance: appropriate Assessment & Plan Assessment/Plan (1) Aspiration pneumonia: QUALIFIERS: Aspiration pneumonia type: unspecified Laterality: bilateral Lung location: unspecified part of lung Qualified Code(s): J69.0 - Pneumonitis due to inhalation of food and vomit (2) COPD exacerbation: PLAN: Plan #Acute on chronic hypoxic respiratory failure due to COPD and aspiration pneumonia * currently on 4L of oxygen. However he continues to desaturate very easily with exertion. * CXR showed evidence of pneumonia * on IV solumedrol * on IV zosyn. Breathing treatment with bronchodilators * he had modified barium swallow and coughed during the process; modified barium swallow showed moderate oropharyngeal dysphagia. * speech therapy on board. TO have further speech evaluation again today. * titrate oxygen to maintain sats >90%. * Breathing treatment with bronchodilators. Titrate oxygen to maintain sats >90% * Respiratory panel was negative. Urine for strep and Legionella were also negative. * CTA chest showed no evidence of PE and showed small left pleural effusion with calcified left pleural plaques. * pulmonology on board * Switch to p.o. prednisone today. * #Cardiomyopathy * has EF of 45% with mild to moderate global hypokinesis of the left ventricle and stage I diastolic dysfunction and pulmonary artery systolic pressure of 65mmHg * On 4 L of oxygen which is his baseline * echo from 2022 showed EF of 55-60% and stage I diastolic dysfunction and normal LV systolic function. * Cardiology did review him based on the echo findings recommended adding on losartan 50 mg every afternoon to his medication regimen. Per cardiology once his pulmonary status is back to baseline to have a limited echo in 6 weeks time to evaluate his pulmonary artery pressures and ventricular function. * Troponins were mildly elevated on admission at 131 and peaked at 159 but trended downwards to 133. * Was given a dose of Lasix today by pulmonology. * #CAD s/p CABG and stents * on plavix and statin as well as beta kaushik. Losartan added on. * #Hypertension: on metoprolol and amlodipine #GERD: on PPI DVT prophylaxis: heparin * Charges/Coding Visit Charges Inpatient E&M: 79316 Subs Hosp L2 11/10/24 1255 <Electronically signed by Rafaela Pelayo MD> Rafaela Pelayo MD Cosigner Signature (if applicable): CC: ~ Signed [facility] Work Phone: [phone]) 165-273404-16-2025 Progress note [facility] Medical Records Department [address] [place] [address] Progress Note - Twisting Press Operator 11/10/24 1042 MR#: [id number] Acct: [id number] Name: KAM GREENBERG Rep #:[id number] : 1950 74 From: Kashif Rothman DO PCP: Dr. Royce Carroll MD Status:A DM IN Location: [place] [id number] Assessment & Plan Assessment/Plan (1) COPD exacerbation: (2) Aspiration pneumonia: QUALIFIERS: Aspiration pneumonia type: unspecified Laterality: bilateral Lung location: unspecifiedpart of lung Qualified Code(s): J69.0 - Pneumonitis due to inhalation of food and vomit PLAN: Plan RECOMMENDATIONS: 1. Supplemental oxygen to maintain saturations at or above 90%. 2. Continue antibiotics to complete 7 days of therapy. 3. Continue scheduled bronchodilators and steroids. 4. Maintain aspiration precautions. 5. Anticipate home-going exertional supplemental oxygen need of 8 L/min. 6. Will administer a one-time dose of IV Lasix today, but will defer ongoing need for diuretics to hospitalist/cardiology. 7. The patient should follow-up with his primary tooling mechanic, Dr. Clark Rothman at [facility] after discharge. 8. Given the end-stage nature of his lung disease, I would consider referral to[facility] care services. 9. Will sign off. Please call with any additional questions. IMPRESSIONS: 1. Acute on chronic hypoxemic respiratory failure Presumed secondary to COPD exacerbation due to aspiration pneumonia. The patient has known end-stage lung disease along with a baseline oxygen requirement of 4 L/min. Unfortunately, the patient continues to desaturate withany form of physical exertion. He has been maintained on appropriate antimicrobials along with scheduled bronchodilators and steroids. CTA chest yesterday demonstrated no PE, but did confirm bilateral emphysematous changes with subpleural groundglass changes and basilar fibrotic changes, right greater than left. Accordingly, I would recommend that the patient be transition to prednisone, with plans to complete a 5-day burst of 40 mg daily. Unfortunately,it is unlikely thatthe patient will be unable to improve significantly from this current point given the end-stage nature of his lung disease. However, given his depressed ejection fraction, will administer a one-time dose of IV Lasix today. I will defer the ongoing need for diuretics to the hospitalist service/cardiology. 2. Cardiomyopathy/history of coronary artery disease status post CABG/hypertension Continue current medical management per cardiology recommendations. 3. Chronic tobacco dependency/GERD/hyperlipidemia/diabetes mellitus Complicates care, management, recovery and prognosis. Smoking cessation is strongly advised. This note was generated with [email or web address] dictation software. It may contain incorrectwords, spelling, and punctuation that were not noted in checking the note beforesigning. Subjective Subjective The patient was seen and examined at the bedside this morning. Events from the last 24 hours have been reviewed. The patient is currently afebrile, hemodynamically stable and maintaining appropriate oxygen saturations on 4 L/min. White blood cell count is normal. Hemoglobin and platelet count are st able. Creatinine is stable at 1.32. CTA chest yesterday demonstrated no PE, but did confirm bilateral emphysematous changes with subpleural groundglass changes and basilar fibrotic changes, right greater than left. Objective Data Objective Data The patient's most recent lab work, culture data and imaging studies have all been personally reviewed. Infectious workup has been unrevealing to date. Vital Signs: Vital Signs Temp Pulse Resp BP Pulse Ox O2 Del Method O2 Flow Rate 98.7 F 88 18 156/79 H 93 Nasal Cannula 4 11/10/24 08:37 11/10/24 08:45 11/10/24 08:37 11/10/24 08:45 11/10/24 08:37 11/10/24 10:00 11/10/24 10:00 FiO2 37 11/04/24 22:00 Oxygen Flow Rate (L/min) 4 Oxygen Delivery Method Nasal Cannula Weight: 169 lb 5.04 oz Body Mass Index (BMI) 22.3 Intake & Output: Intake and Output for Last 24 Hours 11/08/24 11/09/24 11/10/24 23:59 23:59 23:59 Intake Total 510 / 560 680 / 680 100 / 100 Output Total 700 / 950 950 / 1325 625 / 625 Balance -190 / -390 -270 / -645 -525 / -525 Medical Nutrition Assessment Dietitian: Malnutrition Criteria Met Start: 11/08/24 15:10 Freq: Status: Active Protocol: Document 11/08/24 15:10 RMA (Rec: 11/08/24 15:10 RMA [id number]) Nutrition Malnutrition Evidence of Yes Malnutrition Exists Malnutrition (severe Acute Illness/Injury ): Evidenced By Suboptimal Energy Intake (Severe),Weight Loss (Severe) Intake Problem Inadequate Oral Intake Etiology related to swallowing difficulty Signs/Symptoms as evidenced by NPO x 3 days Status Resolved Problem Clinical Problem Acute Disease or Injury Related Malnutrition Etiology severe protein-calorie malnutrition in the context of acute illness related to inadequate oral intake and difficulty chewing/swallowing Signs/Symptoms as evidenced by PO meeting less than 50% estimated nutrition needs x 1 week, extended NPO x 3-4 days and weight loss ~5-6% in less than 1 week Status Active Problem Recommendation Dietitian Will adjust diet to carbohydrate-controlled (no caloric Recommendations/ restriction). Changes Consistency/texture as per GUEST SERVICE REPRESENTATIVE. Will add 120mL PO glucerna shake w/ meals 3 times per day. Limit sodium and fluids as indicated once PO established with meals. Additional ONS and/or TF support to supplement PO as indicated if PO established suboptimal at meals and/or weight continues to decline. Lab / Micro Data Attestation: I reviewed the patient's lab results. 11/10/24 07:55 11/10/24 07:55 Labs: Laboratory Results - last 24 hr 11/09/24 11:34: POC Glucose 312 H 11/09/24 16:30: POC Glucose 290 H 11/09/24 20:40: POC Glucose 293 H 11/10/24 06:17: POC Glucose 232 H 11/10/24 07:55: WBC 9.2, RBC 2.81 L, Hgb 9.2 L, Hct 28.3 L, MCV 100.7 H, MCH 32.7 H, MCHC 32.5, RDWStd Deviation 50.4 H, RDW Coeff of Christine 13.7, Plt Count 217, MPV 9.5, Immature Gran % (Auto) 0.700, Neut % (Auto) 83.0 H, Lymph % (Auto)10.9 L, Appling % (Auto) 5.1, Eos % (Auto) 0.3, Baso % (Auto) 0.0, Absolute Neuts (auto) 7.6, Absolute Lymphs (auto) 1.00, Nucleated RBC % 0, Sodium 139, Potassium 4.8, Chloride 101, Carbon Dioxide 31.9, Anion Gap 7, BUN 28 H, Creatinine 1.32 H, Estim Creat Clear Calc 54.14, Est GFR (MDRD) Non-Af 57 L, BUN/Creatinine Ratio 21.4 H, Glucose 217 H, Calcium 8.7 Micro: Microbiology 11/04/24 16:00 Mucosa - Nasopharyngeal Respiratory Panel (PCR) - Final 11/04/24 19:08 Urine, Clean Catch Legionella Antigen - Final 11/04/24 19:08 Urine, Clean Catch Streptococcus pneumoniae Antigen (M - Final 11/03/24 18:55 Mucosa - Nose SARS-CoV-2, Influenza & RSV (PCR) - Final Radiography Diagnostic Testing: Radiology Impression Chest CTA 11/09/24 13:41 IMPRESSION: No evidence of pulmonary embolism. Small left pleural effusion with calcified left pleural plaques. Findings suggestive of scarring atthe lung bases more prominent on the left side. Scarring in the right middle lobe. Reading Location: [place] [address] Rhythm Strip Rhythm Strip: Sinus Rhythm Rate: 80 Ectopy: PVC(s) Physical Exam Const alert and no apparent distress General Appearance: cooperative HEENT normocephalic, head/scalp atraumatic and moist oral mucous membranes Eyes PERRL, EOMs intact bilaterally and conjunctivae normal Neck supple General: trachea midline Chest inspection of chest normal Resp normal respiratory effort and no use of accessory muscles Effort and Inspection: able to speak in complete sentences Auscultation: diminished lung sounds Cardio regular rate and regular rhythm GI normal to inspection, nondistended, normoactive bowel sounds Extremity no clubbing, cyanosis or edema Skin no rashes or lesions noted Neuro CN's II-XII intact bilaterally, moves all extremities and no focal motor deficits Psych Mood & Affect: flat affect Charges/Coding Visit Charges Inpatient E&M: 19327 Subs Hosp L2 11/10/24 1308 Cosigner Signature (if applicable): CC: ~ Signed [facility]04-16-2025 Progress note [facility] Medical Records Department [address] [place] [address] Progress Note 11/10/24 1241 MR#: [id number] Acct: [id number] Name: KAM GREENBERG Rep #:[id number] : 1950 74 From: Rafaela Pelayo MD PCP: Dr. Royce Carroll MD Status:A DM IN Location: [place] [address] Subjective Subjective Patient seen and examined. He was comfortably eating his breakfast this morning. He had no active complaints. He remains on his baseline 4 L of oxygen. Review of systems otherwise negative. Objective Data Objective Data Vital Signs: Vital Signs Temp Pulse Resp BP Pulse Ox O2 Del Method O2 Flow Rate 98.7 F 88 16 156/79 H 93 Nasal Cannula 4 11/10/24 08:37 11/10/24 10:56 11/10/24 10:56 11/10/24 08:45 11/10/24 08:37 11/10/24 10:00 11/10/24 10:00 FiO2 37 11/04/24 22:00 Oxygen Flow Rate (L/min) 4 Oxygen Delivery Method Nasal Cannula Weight: 169 lb 5.04 oz Body Mass Index (BMI) 22.3 Intake & Output: Intake and Output for Last 24 Hours 11/08/24 11/09/24 11/10/24 23:59 23:59 23:59 Intake Total 510 / 560 680 / 680 100 / 100 Output Total 700 / 950 950 / 1325 625 / 625 Balance -190 / -390 -270 / -645 -525 / -525 Medical Nutrition Assessment Dietitian: Malnutrition Criteria Met Start: 11/08/24 15:10 Freq: Status: Active Protocol: Document 11/08/24 15:10 RMA (Rec: 11/08/24 15:10 RMA [id number]) Nutrition Malnutrition Evidence of Yes Malnutrition Exists Malnutrition (severe Acute Illness/Injury ): Evidenced By Suboptimal Energy Intake (Severe),Weight Loss (Severe) Intake Problem Inadequate Oral Intake Etiology related to swallowing difficulty Signs/Symptoms as evidenced by NPO x 3 days Status Resolved Problem Clinical Problem Acute Disease or Injury Related Malnutrition Etiology severe protein-calorie malnutrition in the context of acute illness related to inadequate oral intake and difficulty chewing/swallowing Signs/Symptoms as evidenced by PO meeting less than 50% estimated nutrition needs x 1 week, extended NPO x 3-4 days and weight loss ~5-6% in less than 1 week Status Active Problem Recommendation Dietitian Will adjust diet to carbohydrate-controlled (no caloric Recommendations/ restriction). Changes Consistency/texture as per GUEST SERVICE REPRESENTATIVE. Will add 120mL PO glucerna shake w/ meals 3 times per day. Limit sodium and fluids as indicated once PO established with meals. Additional ONS and/or TF support to supplement PO as indicated if PO established suboptimal at meals and/or weight continues to decline. Lab / Micro Data 11/10/24 07:55 11/10/24 07:55 Labs: Laboratory Results - last 24 hr 11/09/24 16:30: POC Glucose 290 H 11/09/24 20:40: POC Glucose 293 H 11/10/24 06:17: POC Glucose 232 H 11/10/24 07:55: WBC 9.2, RBC 2.81 L, Hgb 9.2 L, Hct 28.3 L, MCV 100.7 H, MCH 32.7 H, MCHC 32.5, RDWStd Deviation 50.4 H, RDW Coeff of Christine 13.7, Plt Count 217, MPV 9.5, Immature Gran % (Auto) 0.700, Neut % (Auto) 83.0 H, Lymph % (Auto)10.9 L, Appling % (Auto) 5.1, Eos % (Auto) 0.3, Baso % (Auto) 0.0, Absolute Neuts (auto) 7.6, Absolute Lymphs (auto) 1.00, Nucleated RBC % 0, Sodium 139, Potassium 4.8, Chloride 101, Carbon Dioxide 31.9, Anion Gap 7, BUN 28 H, Creatinine 1.32 H, Estim Creat Clear Calc 54.14, Est GFR (MDRD) Non-Af 57 L, BUN/Creatinine Ratio 21.4 H, Glucose 217 H, Calcium 8.7 11/10/24 10:58: POC Glucose 353 H 11/10/24 11:03: NT pro BNP II 8887 H Micro: Microbiology 11/04/24 16:00 Mucosa - Nasopharyngeal Respiratory Panel (PCR) - Final 11/04/24 19:08 Urine, Clean Catch Legionella Antigen - Final 11/04/24 19:08 Urine, Clean Catch Streptococcus pneumoniae Antigen (M - Final 11/03/24 18:55 Mucosa - Nose SARS-CoV-2, Influenza & RSV (PCR) - Final Radiography Diagnostic Testing: Radiology Impression Chest CTA 11/09/24 13:41 IMPRESSION: No evidence of pulmonary embolism. Small left pleural effusion with calcified left pleural plaques. Findings suggestive of scarring atthe lung bases more prominent on the left side. Scarring in the right middle lobe. Reading Location: [place] [address] Rhythm Strip Rhythm Strip: Sinus Rhythm Rate: 80 Ectopy: PVC(s) Physical Exam Const alert, oriented x3, no apparent distress, average body habitus and well nourished Constitutional Narrative: frail, weak General Appearance: cooperative HEENT normocephalic, head/scalp atraumatic, hearing grossly normal bilaterally, moist oral mucous membranes and oropharynx normal Eyes PERRL and EOMs intact bilaterally Neck no lymphadenopathy, supple and no JVD Lymph Lymphatic: no lymphadenopathy noted and no lymphedema noted Resp Resp Narrative: mildly diminished breath sounds bibasally, no wheezes or crackles. On 4 L of oxygen by nasal canula Cardio regular rate, regular rhythm, S1 normal heart sound, S2 normal heart sound and no murmurs GI normal to inspection, nondistended, normoactive bowel sounds, soft to palpation,non-tender and non-distended Extremity normal to inspection, full ROM, normal capillary refill, no clubbing, cyanosis or edema and no calftenderness General Extremity: no tenderness to palpation of joints or extremities Skin General Skin Exam: no breakdown Neuro CN's II-XII intact bilaterally, moves all extremities, no focal motor deficits and no sensory deficits noted Sensorium / Orientation: awake, alert, oriented to person, oriented to place andoriented to time Speech: speech normal Motor Exam: strength 5/5 throughout and general weakness Psych thought process normal, cooperative and affect normal Appearance: appropriate Assessment & Plan Assessment/Plan (1) Aspiration pneumonia: QUALIFIERS: Aspiration pneumonia type: unspecified Laterality: bilateral Lung location: unspecifiedpart of lung Qualified Code(s): J69.0 - Pneumonitis due to inhalation of food and vomit (2) COPD exacerbation: PLAN: Plan #Acute on chronic hypoxic respiratory failure due to COPD and aspiration pneumonia * currently on 4L of oxygen. However he continues to desaturate very easily with exertion. * CXR showed evidence of pneumonia * on IV solumedrol * on IV zosyn. Breathing treatment with bronchodilators * he had modified barium swallow and coughed during the process; modified barium swallow showed moderate oropharyngeal dysphagia. * speech therapy on board. TO have further speech evaluation again today. * titrate oxygen to maintain sats >90%. * Breathing treatment with bronchodilators. Titrate oxygen to maintain sats >90% * Respiratory panel was negative. Urine for strep and Legionella were also negative. * CTA chest showed no evidence of PE and showed small left pleural effusion with calcified left pleural plaques. * pulmonology on board * Switch to p.o. prednisone today. * #Cardiomyopathy * has EF of 45% with mild to moderate global hypokinesis of the left ventricle and stage I diastolic dysfunction and pulmonary artery systolic pressure of 65mmHg * On 4 L of oxygen which is his baseline * echo from 2022 showed EF of 55-60% and stage I diastolic dysfunction and normal LV systolic function. * Cardiology did review him based on the echo findings recommended adding on losartan 50 mg every afternoon to his medication regimen. Per cardiology once his pulmonary status is back to baseline to have a limited echo in 6 weeks time to evaluate his pulmonary artery pressures and ventricular function. * Troponins were mildly elevated on admission at 131 and peaked at 159 but trended downwards to 133. * Was given a dose of Lasix today by pulmonology. * #CAD s/p CABG and stents * on plavix and statin as well as beta kaushik. Losartan added on. * #Hypertension: on metoprolol and amlodipine #GERD: on PPI DVT prophylaxis: heparin * Charges/Coding Visit Charges Inpatient E&M: 38764 [facility] Hosp L2 11/10/24 1252 Rafaela Pelayo MD Cosigner Signature (if applicable): CC: ~ Signed [facility]04-16-2025 Telephone encounter Note* Telephone Encounter - Meka Fuentes RN - 11/10/2024 11:40 AM EDT Sera with [facility] calls to ask if provider would follow their HH orders for SN, PT, OT, ST following discharge from [facility] for COPD and aspiration pneumonia. Please call Sera back at [phone] Meka Fuentes RN [facility]04-15-2025 Progress note Author Rafaela Pelayo [facility] Note Date/Time November 09, 2024 5:2 2pm [facility] Medical Records Department [address] [place] [address] Progress Note 11/09/24 1314 MR#: [id number] Acct: [id number] Name: KAM GREENBERG Rep #:[id number] : 1950 74 From: Rafaela Pelayo MD PCP: Dr. Royce Carroll MD Status:A DM IN Location: [place] [id number]- Subjective Subjective Patient seen and examined. He has no active complaints. Review of systems is otherwise negative. He continues to desaturate with the slightest exertion. He is still coughing, though he is not expectorating much. Objective Data Objective Data Vital Signs: Vital Signs Temp Pulse Resp BP Pulse Ox O2 Del Method O2 Flow Rate 97.5 F L 75 22 H 157/85 H 100 Nasal Cannula 4 11/09/24 11:40 11/09/24 12:05 11/09/24 12:05 11/09/24 11:40 11/09/24 12:05 11/09/24 12:05 11/09/24 12:05 FiO2 37 11/04/24 22:00 Oxygen Flow Rate (L/min) 4 Oxygen Delivery Method Nasal Cannula Weight: 170 lb 3.15 oz Body Mass Index (BMI) 22.4 Intake & Output: Intake and Output for Last 24 Hours 11/07/24 11/08/24 11/09/24 23:59 23:59 23:59 Intake Total 270 / 270 510 / 560 390 / 390 Output Total 250 / 250 700 / 950 450 / 450 Balance 20 / 20 -190 / -390 -60 / -60 Medical Nutrition Assessment Dietitian: Malnutrition Criteria Met Start: 11/08/24 15:10 Freq: Status: Active Protocol: Document 11/08/24 15:10 RMA (Rec: 11/08/24 15:10 RMA [id number]) Nutrition Malnutrition Evidence of Yes Malnutrition Exists Malnutrition (severe Acute Illness/Injury ): Evidenced By Suboptimal Energy Intake (Severe),Weight Loss (Severe) Intake Problem Inadequate Oral Intake Etiology related to swallowing difficulty Signs/Symptoms as evidenced by NPO x 3 days Status Resolved Problem Clinical Problem Acute Disease or Injury Related Malnutrition Etiology severe protein-calorie malnutrition in the context of acute illness related to inadequate oral intake and difficulty chewing/swallowing Signs/Symptoms as evidenced by PO meeting less than 50% estimated nutrition needs x 1 week, extended NPO x 3-4 days and weight loss ~5-6% in less than 1 week Status Active Problem Recommendation Dietitian Will adjust diet to carbohydrate-controlled (no caloric Recommendations/ restriction). Changes Consistency/texture as per GUEST SERVICE REPRESENTATIVE. Will add 120mL PO glucerna shake w/ meals 3 times per day. Limit sodium and fluids as indicated once PO established with meals. Additional ONS and/or TF support to supplement PO as indicated if PO established suboptimal at meals and/or weight continues to decline. Lab / Micro Data 11/09/24 06:57 11/09/24 06:57 Labs: Laboratory Results - last 24 hr 11/08/24 17:19: POC Glucose 224 H 11/08/24 22:35: POC Glucose 326 H 11/09/24 06:20: POC Glucose 214 H 11/09/24 06:57: WBC 7.5, RBC 2.81 L, Hgb 9.2 L, Hct 28.7 L, MCV 102.1 H, MCH 32.7 H, MCHC 32.1, RDW Std Deviation 51.4 H, RDW Coeff of Christine 13.6, Plt Count 206, MPV 9.9, Immature Gran % (Auto) 0.700, Neut % (Auto) 74.0 H, Lymph % (Auto)18.2 L, Appling % (Auto) 6.8, Eos % (Auto) 0.3, Baso % (Auto) 0.0, Absolute Neuts (auto) 5.6, Absolute Lymphs (auto) 1.37, Nucleated RBC % 0, Sodium 142, Potassium 4.2, Chloride 102, Carbon Dioxide 32.5 H, Anion Gap 8, BUN 32 H, Creatinine 1.45 H, Estim Creat Clear Calc 49.54 L, Est GFR (MDRD) Non-Af 51 L, BUN/Creatinine Ratio 21.8 H, Glucose 219 H, Calcium 8.7 11/09/24 11:34: POC Glucose 312 H Micro: Microbiology 11/04/24 16:00 Mucosa - Nasopharyngeal Respiratory Panel (PCR) - Final 11/04/24 19:08 Urine, Clean Catch Legionella Antigen - Final 11/04/24 19:08 Urine, Clean Catch Streptococcus pneumoniae Antigen (M - Final 11/03/24 18:55 Mucosa - Nose SARS-CoV-2, Influenza & RSV (PCR) - Final Rhythm Strip Rhythm Strip: Sinus Rhythm Rate: 80 Ectopy: PVC(s) Physical Exam Const alert, oriented x3, no apparent distress and well nourished Constitutional Narrative: frail, weak General Appearance: cooperative HEENT normocephalic, head/scalp atraumatic, hearing grossly normal bilaterally, moist oral mucous membranes and oropharynx normal Eyes PERRL and EOMs intact bilaterally Neck no lymphadenopathy, supple and no JVD Lymph Lymphatic: no lymphadenopathy noted and no lymphedema noted Resp Resp Narrative: mildly diminished breath sounds bibasally, no wheezes or crackles. On 4 L of oxygen by nasal canula Cardio regular rate, regular rhythm, S1 normal heart sound, S2 normal heart sound and no murmurs GI normal to inspection, nondistended, normoactive bowel sounds, soft to palpation,non-tender and non-distended Extremity normal to inspection, full ROM, normal capillary refill and no clubbing, cyanosis or edema General Extremity: no tenderness to palpation of joints or extremities Neuro CN's II-XII intact bilaterally, moves all extremities, no focal motor deficits and no sensory deficits noted Sensorium / Orientation: awake, alert, oriented to person, oriented to place andoriented to time Speech: speech normal Motor Exam: strength 5/5 throughout and general weakness Psych thought process normal, cooperative and affect normal Appearance: appropriate Assessment & Plan Assessment/Plan (1) Aspiration pneumonia: QUALIFIERS: Aspiration pneumonia type: unspecified Laterality: bilateral Lung location: unspecified part of lung Qualified Code(s): J69.0 - Pneumonitis due to inhalation of food and vomit (2) COPD exacerbation: PLAN: Plan #Acute on chronic hypoxic respiratory failure due to COPD and aspiration pneumonia * currently on 4L of oxygen. However he continues to desaturate very easily with exertion. * CXR showed evidence of pneumonia * on IV solumedrol * on IV zosyn. Breathing treatment with bronchodilators * he had modified barium swallow and coughed during the process * speech therapy on board. TO have further speech evaluation again today. * titrate oxygen to maintain sats >90%. * Breathing treatment with bronchodilators. Titrate oxygen to maintain sats >90% * Respiratory panel was negative. Urine for strep and Legionella were also negative. * Consult pulmonology due to persistent hypoxia especially with exertion. * #Cardiomyopathy * has EF of 45% with mild to moderate global hypokinesis of the left ventricle and stage I diastolic dysfunction and pulmonary artery systolic pressure of 65mmHg * was on IV lasix. * On 4 L of oxygen today. * echo from 2022 showed EF of 55-60% and stage I diastolic dysfunction and normal LV systolic function. * in light of him still requiring 6L of oxygen, I do think it is reasonable to get cardiology input with regards to the drop in EF and moderate global hypokinesis * Cardiology did review him based on the echo findings recommended adding on losartan 50 mg every afternoon to his medication regimen. Per cardiology once his pulmonary status is back to baseline to have a limited echo in 6 weeks time to evaluate his pulmonary artery pressures and ventricular function. * Troponins were mildly elevated on admission at 131 and peaked at 159 but trended downwards to 133. * #CAD s/p CABG and stents * on plavix and statin as well as beta kaushik. Losartan added on. * #Hypertension: on metoprolol and amlodipine #GERD: on PPI DVT prophylaxis: heparin * Charges/Coding Visit Charges Inpatient E&M: 37944 Subs Hosp L2 11/09/24 1722 <Electronically signed by Rafaela Pelayo MD> Rafaela Pelayo MD Cosigner Signature (if applicable): CC: ~ Signed [facility] Work Phone: [phone] 509-266404-15-2025 Progress note [facility] Medical Records Department [address] [place] [id number] Progress Note 11/09/24 1314 MR#: [id number] Acct: [id number] Name: KAM GREENBERG Rep #:[id number] : 1950 74 From: Rafaela Pelayo MD PCP: Dr. Royce Carroll MD Status:A DM IN Location: [place] [address]- Subjective Subjective Patient seen and examined. He has no active complaints. Review of systems is otherwise negative. Hecontinues to desaturate with the slightest exertion. He is still coughing, though he is not expectorating much. Objective Data Objective Data Vital Signs: Vital Signs Temp Pulse Resp BP Pulse Ox O2 Del Method O2 Flow Rate 97.5 F L 75 22 H 157/85 H 100 Nasal Cannula 4 11/09/24 11:40 11/09/24 12:05 11/09/24 12:05 11/09/24 11:40 11/09/24 12:05 11/09/24 12:05 11/09/24 12:05 FiO2 37 11/04/24 22:00 Oxygen Flow Rate (L/min) 4 Oxygen Delivery Method Nasal Cannula Weight: 170 lb 3.15 oz Body Mass Index (BMI) 22.4 Intake & Output: Intake and Output for Last 24 Hours 11/07/24 11/08/24 11/09/24 23:59 23:59 23:59 Intake Total 270 / 270 510 / 560 390 / 390 Output Total 250 / 250 700 / 950 450 / 450 Balance 20 -190 / -390 -60 / -60 Medical Nutrition Assessment Dietitian: Malnutrition Criteria Met Start: 11/08/24 15:10 Freq: Status: Active Protocol: Document 11/08/24 15:10 RMA (Rec: 11/08/24 15:10 RMA [id number]) Nutrition Malnutrition Evidence of Yes Malnutrition Exists Malnutrition (severe Acute Illness/Injury ): Evidenced By Suboptimal Energy Intake (Severe),Weight Loss (Severe) Intake Problem Inadequate Oral Intake Etiology related to swallowing difficulty Signs/Symptoms as evidenced by NPO x 3 days Status Resolved Problem Clinical Problem Acute Disease or Injury Related Malnutrition Etiology severe protein-calorie malnutrition in the context of acute illness related to inadequate oral intake and difficulty chewing/swallowing Signs/Symptoms as evidenced by PO meeting less than 50% estimated nutrition needs x 1 week, extended NPO x 3-4 days and weight loss ~5-6% in less than 1 week Status Active Problem Recommendation Dietitian Will adjust diet to carbohydrate-controlled (no caloric Recommendations/ restriction). Changes Consistency/texture as per GUEST SERVICE REPRESENTATIVE. Will add 120mL PO glucerna shake w/ meals 3 times per day. Limit sodium and fluids as indicated once PO established with meals. Additional ONS and/or TF support to supplement PO as indicated if PO established suboptimal at meals and/or weight continues to decline. Lab / Micro Data 11/09/24 06:57 11/09/24 06:57 Labs: Laboratory Results - last 24 hr 11/08/24 17:19: POC Glucose 224 H 11/08/24 22:35: POC Glucose 326 H 11/09/24 06:20: POC Glucose 214 H 11/09/24 06:57: WBC 7.5, RBC 2.81 L, Hgb 9.2 L, Hct 28.7 L, MCV 102.1 H, MCH 32.7 H, MCHC 32.1, RDWStd Deviation 51.4 H, RDW Coeff of Christine 13.6, Plt Count 206, MPV 9.9, Immature Gran % (Auto) 0.700, Neut % (Auto) 74.0 H, Lymph % (Auto)18.2 L, Appling % (Auto) 6.8, Eos % (Auto) 0.3, Baso % (Auto) 0.0, Absolute Neuts (auto) 5.6, Absolute Lymphs (auto) 1.37, Nucleated RBC % 0, Sodium 142, Potassium 4.2, Chloride 102, Carbon Dioxide 32.5 H, Anion Gap 8, BUN 32 H, Creatinine 1.45 H, Estim Creat Clear Calc 49.54 L, Est GFR (MDRD) Non-Af 51 L, BUN/Creatinine Ratio 21.8 H, Glucose 219 H, Calcium 8.7 11/09/24 11:34: POC Glucose 312 H Micro: Microbiology 11/04/24 16:00 Mucosa - Nasopharyngeal Respiratory Panel (PCR) - Final 11/04/24 19:08 Urine, Clean Catch Legionella Antigen - Final 11/04/24 19:08 Urine, Clean Catch Streptococcus pneumoniae Antigen (M - Final 11/03/24 18:55 Mucosa - Nose SARS-CoV-2, Influenza & RSV (PCR) - Final Rhythm Strip Rhythm Strip: Sinus Rhythm Rate: 80 Ectopy: PVC(s) Physical Exam Const alert, oriented x3, no apparent distress and well nourished Constitutional Narrative: frail, weak General Appearance: cooperative HEENT normocephalic, head/scalp atraumatic, hearing grossly normal bilaterally, moist oral mucous membranes and oropharynx normal Eyes PERRL and EOMs intact bilaterally Neck no lymphadenopathy, supple and no JVD Lymph Lymphatic: no lymphadenopathy noted and no lymphedema noted Resp Resp Narrative: mildly diminished breath sounds bibasally, no wheezes or crackles. On 4 L of oxygen by nasal canula Cardio regular rate, regular rhythm, S1 normal heart sound, S2 normal heart sound and no murmurs GI normal to inspection, nondistended, normoactive bowel sounds, soft to palpation,non-tender and non-distended Extremity normal to inspection, full ROM, normal capillary refill and no clubbing, cyanosis or edema General Extremity: no tenderness to palpation of joints or extremities Neuro CN's II-XII intact bilaterally, moves all extremities, no focal motor deficits and no sensory deficits noted Sensorium / Orientation: awake, alert, oriented to person, oriented to place andoriented to time Speech: speech normal Motor Exam: strength 5/5 throughout and general weakness Psych thought process normal, cooperative and affect normal Appearance: appropriate Assessment & Plan Assessment/Plan (1) Aspiration pneumonia: QUALIFIERS: Aspiration pneumonia type: unspecified Laterality: bilateral Lung location: unspecifiedpart of lung Qualified Code(s): J69.0 - Pneumonitis due to inhalation of food and vomit (2) COPD exacerbation: PLAN: Plan #Acute on chronic hypoxic respiratory failure due to COPD and aspiration pneumonia * currently on 4L of oxygen. However he continues to desaturate very easily with exertion. * CXR showed evidence of pneumonia * on IV solumedrol * on IV zosyn. Breathing treatment with bronchodilators * he had modified barium swallow and coughed during the process * speech therapy on board. TO have further speech evaluation again today. * titrate oxygen to maintain sats >90%. * Breathing treatment with bronchodilators. Titrate oxygen to maintain sats >90% * Respiratory panel was negative. Urine for strep and Legionella were also negative. * Consult pulmonology due to persistent hypoxia especially with exertion. * #Cardiomyopathy * has EF of 45% with mild to moderate global hypokinesis of the left ventricle and stage I diastolic dysfunction and pulmonary artery systolic pressure of 65mmHg * was on IV lasix. * On 4 L of oxygen today. * echo from 2022 showed EF of 55-60% and stage I diastolic dysfunction and normal LV systolic function. * in light of him still requiring 6L of oxygen, I do think it is reasonable to get cardiology inputwith regards to the drop in EF and moderate global hypokinesis * Cardiology did review him based on the echo findings recommended adding on losartan 50 mg every afternoon to his medication regimen. Per cardiology once his pulmonary status is back to baseline to have a limited echo in 6 weeks time to evaluate his pulmonary artery pressures and ventricular function. * Troponins were mildly elevated on admission at 131 and peaked at 159 but trended downwards to 133. * #CAD s/p CABG and stents * on plavix and statin as well as beta kaushik. Losartan added on. * #Hypertension: on metoprolol and amlodipine #GERD: on PPI DVT prophylaxis: heparin * Charges/Coding Visit Charges Inpatient E&M: 96151 Subs Hosp L2 11/09/24 1722 Rafaela Pelayo MD Cosigner Signature (if applicable): CC: ~ Signed [facility]04-15-2025 Consult note Author Kashif Rothman [facility] Note Date/Time November 09, 2024 1:4 6pm [facility] Medical Records Department [address] [facility] [place] [address] Consultation - Twisting Press Operator 11/09/24 1337 MR#: [id number] Acct: [id number] Name: GREENBERGEVELINE Rep #:[id number] : 1950 74 From: Kashif Rothman DO PCP: Dr. Royce Carroll MD Status:A DM IN Location: [place] [address] Assessment & Plan Assessment/Plan (1) COPD exacerbation: (2) Aspiration pneumonia: QUALIFIERS: Aspiration pneumonia type: unspecified Laterality: bilateral Lung location: unspecified part of lung Qualified Code(s): J69.0 - Pneumonitis due to inhalation of food and vomit PLAN: Plan RECOMMENDATIONS: 1. Supplemental oxygen to maintain saturations at or above 90%. 2. Continue antibiotics to complete 7 days of therapy. 3. Continue scheduled bronchodilators and steroids. 4. Obtain CTA chest. 5. Maintain aspiration precautions. IMPRESSIONS: 1. Acute on chronic hypoxemic respiratory failure Presumed secondary to COPD exacerbation due to aspiration pneumonia. The patient has known end-stage lung disease along with a baseline oxygen requirement of 4 L/min. Unfortunately, the patient continues to desaturate withany form of physical exertion. He has been maintained on appropriate antimicrobials along with scheduled bronchodilators and steroids. Accordingly, will obtain CTA chest to rule out pulmonary embolism and evaluate for any underlying interstitial lung process. In the interim, I would consider an attempt at gentle diuresis as tolerated by hemodynamics and renal function. 2. Cardiomyopathy/history of coronary artery disease status post CABG/hypertension Continue current medical management per cardiology recommendations. 3. Chronic tobacco dependency/GERD/hyperlipidemia/diabetes mellitus Complicates care, management, recovery and prognosis. Smoking cessation is strongly advised. This note was generated with [email or web address] dictation software. It may contain incorrectwords, spelling, and punctuation that were not noted in checking the note beforesigning. HPI Consult Data Date of Consult: 11/09/24 HPI Narrative Reason for Consultation: Hypoxemia HPI Narrative: The patient is a 74-year-old male, with a history as outlined below, who initially presented to the emergency department on November 03 with shortness of breath. The patient has a known history of coronary artery disease status post CABG, chronic heart failure with preserved ejection fraction, history of CVA, chronic kidney disease and chronic tobacco dependency. The patient reported that he is currently followed by Dr. Clark Rothman of pulmonary medicine at [facility]. According to the patient, he has Gold stage IV COPD with an FEV1 of approximately 25%. In addition, he has a baseline supplemental oxygen requirement of 4 L/min. The patient was subsequently admitted to the hospital with concern that his acute hypoxemic on chronic respiratory failure was related to a COPD exacerbation secondary to aspiration pneumonia. The patient has been followed by speech therapy over concerns for aspiration noted on his MBSS. In addition, repeat echocardiogram demonstrated an ejection fraction of 45% with moderate global hypokinesis of the LV, stage I diastolic dysfunction and a pulmonary artery systolic pressure of 65 mmHg. The patient was seen in consultation by cardiology. The patient remains on antimicrobials along with scheduled bronchodilators and IV steroids. According to nursing staff, he readily desaturates with any form of physical exertion. [facility] Medical History COPD exacerbation Essential tremor Stage 3a chronic kidney disease (CKD) Diabetes mellitus, type 2 CAD (coronary artery disease) History of CVA (cerebrovascular accident) Tobacco use Hyperlipidemia COPD (chronic obstructive pulmonary disease) Hypertension Home Medications ?Medication ?Instructions ?Recorded ?Last Taken ?Type clopidogrel 75 mg tablet 75 mg PO DAILY Check with emelia huang 03/24/16 Unknown History doctor metoprolol tartrate 50 mg tablet 50 mg PO BID Check wi primary 03/24/16 12/10/22 History doctor amlodipine 5 mg tablet 5 mg PO DAILY Check with daniella castellano 12/11/22 12/10/22 History doctor sertraline 100 mg tablet 100 mg PO DAILY Check with p rimary 12/11/22 12/10/22 History doctor albuterol sulfate 2.5 mg/3 mL 2.5 mg (3 mL) inhalation Q2H PRN 12/17/22 12/10/22 Rx (0.083 %) solution for nebulization PRN shortness of b reath or wheezing #1 mL ipratropium 0.5 mg-albuterol 3 mg 3 ml inhalation 4X/D AY #120 mL 12/17/22 Unknown Rx (2.5 mg base)/3 mL nebulization soln albuterol sulfate 90 mcg/actuation 2 puff inhalation Q 4H PRN PRN 11/03/24 Unknown History aerosol inhaler wheezing atorvastatin 40 mg tablet 40 mg PO QHS 11/03/24 Unknow n History fluticasone fur. 100 mcg-umeclid 1 ea inhalation DAILY 11/03/24 Unknown History 62.5 mcg-vilant 25 mcg inhalat.powder (Trelegy Ellipta) fluticasone propionate 50 1 spray intranasal BID 11/03 Unknown History mcg/actuation nasal spray,suspension metformin 500 mg tablet 500 mg PO BID 11/03/24 Unkno wn History Allergy/AdvReac Type Severity Reaction Status Date / Time acetaminophen (From Tylenol) Allergy Unknown Verified 11/03/24 17:30 morphine Allergy Other Verified 11/03/24 17:30 oyster extract Allergy Unknown Verified 11/03/24 17:30 lisinopril AdvReac Other Verified 11/03/24 17:30 Family History Mother Cancer Brain cancer, unclear type. Son Cancer Youngest son, metastatic testicular cancer. Father Heart disease Hypertension CVA (cerebral vascular accident) Surgical History S/P appendectomy H/O right inguinal hernia repair S/P bilateral foot surgery S/P triple vessel bypass H/O heart artery stent Social History household members: spouse current occupational status: retired Smoking Status: Current every day smoker tobacco type: cigarettes how long ago did patient quit smoking: Smoked since 1967, up to 1 ppd, recent down to 1 pk/4-5 days. alcohol intake: current alcohol intake frequency: holidays/special occasions only substance use type: does not use ROS ROS Narrative 10 systems were reviewed with pertinent positives as noted in the HPI above. Physical Exam Const alert and no apparent distress General Appearance: cooperative HEENT normocephalic, head/scalp atraumatic and moist oral mucous membranes Eyes PERRL, EOMs intact bilaterally and conjunctivae normal Neck supple General: trachea midline Chest inspection of chest normal Resp normal respiratory effort and no use of accessory muscles Effort and Inspection: able to speak in complete sentences Auscultation: diminished lung sounds Cardio regular rate and regular rhythm GI normal to inspection, nondistended, normoactive bowel sounds Extremity no clubbing, cyanosis or edema Skin no rashes or lesions noted Neuro CN's II-XII intact bilaterally, moves all extremities and no focal motor deficits Psych cooperative and affect normal Medical Records Data Medical Nutrition Assessment Dietitian: Malnutrition Criteria Met Start: 11/08/24 15:10 Freq: Status: Active Protocol: Document 11/08/24 15:10 RMA (Rec: 11/08/24 15:10 RMA [id number]) Nutrition Malnutrition Evidence of Yes Malnutrition Exists Malnutrition (severe Acute Illness/Injury ): Evidenced By Suboptimal Energy Intake (Severe),Weight Loss (Severe) Intake Problem Inadequate Oral Intake Etiology related to swallowing difficulty Signs/Symptoms as evidenced by NPO x 3 days Status Resolved Problem Clinical Problem Acute Disease or Injury Related Malnutrition Etiology severe protein-calorie malnutrition in the context of acute illness related to inadequate oral intake and difficulty chewing/swallowing Signs/Symptoms as evidenced by PO meeting less than 50% estimated nutrition needs x 1 week, extended NPO x 3-4 days and weight loss ~5-6% in less than 1 week Status Active Problem Recommendation Dietitian Will adjust diet to carbohydrate-controlled (no caloric Recommendations/ restriction). Changes Consistency/texture as per GUEST SERVICE REPRESENTATIVE. Will add 120mL PO glucerna shake w/ meals 3 times per day. Limit sodium and fluids as indicated once PO established with meals. Additional ONS and/or TF support to supplement PO as indicated if PO established suboptimal at meals and/or weight continues to decline. Lab / Micro Data 11/09/24 06:57 11/09/24 06:57 Labs: Laboratory Results - last 24 hr 11/08/24 17:19: POC Glucose 224 H 11/08/24 22:35: POC Glucose 326 H 11/09/24 06:20: POC Glucose 214 H 11/09/24 06:57: WBC 7.5, RBC 2.81 L, Hgb 9.2 L, Hct 28.7 L, MCV 102.1 H, MCH 32.7 H, MCHC 32.1, RDW Std Deviation 51.4 H, RDW Coeff of Christine 13.6, Plt Count 206, MPV 9.9, Immature Gran % (Auto) 0.700, Neut % (Auto) 74.0 H, Lymph % (Auto)18.2 L, Appling % (Auto) 6.8, Eos % (Auto) 0.3, Baso % (Auto) 0.0, Absolute Neuts (auto) 5.6, Absolute Lymphs (auto) 1.37, Nucleated RBC % 0, Sodium 142, Potassium 4.2, Chloride 102, Carbon Dioxide 32.5 H, Anion Gap 8, BUN 32 H, Creatinine 1.45 H, Estim Creat Clear Calc 49.54 L, Est GFR (MDRD) Non-Af 51 L, BUN/Creatinine Ratio 21.8 H, Glucose 219 H, Calcium 8.7 11/09/24 11:34: POC Glucose 312 H Rhythm Strip Rhythm Strip: Sinus Rhythm Rate: 80 Ectopy: PVC(s) Charges/Coding Visit Charges Inpatient E&M: 74041 Init Hosp L3 11/09/24 1346 <Electronically signed by Kashif Rothman DO> Cosigner Signature (if applicable): CC: Dr. Royce Carroll MD~ Signed [facility] Work Phone: [phone] 103-403604-15-2025 Radiology Diagnostic study note [facility] Imaging Services [address] [place], [place] [address] CTA Chest W/WO Contrast MR#: [id number] Acct: [id number] Name: KEVINEVELINE Rep #: [id number] : 1950 M 74 From: Dangelo Whitehead MD PCP: Dr. Royce Carroll MD Status: A DM IN Study:CTA Chest W/WO Contrast Date of Exam: 11/09/24 Exam# [id number] Ordering Dr: Metcalf DO PROCEDURE: CTA CHEST W/WO CONTRAST 11/09/2024 REASON FOR EXAM: REFRACTORY HYPOXEMIA TECHNIQUE: CTA axial imaging of the chest with intravenous contrast. Coronal and Sagittal reconstruction series were provided. 3D, 3D post processing, 3D reconstructions, Maximum intensity projection (MIPs) Volume rendering and Shaded surface rendering was provided. PATIENT PREPARATION: Per protocol One or more dose reduction techniques were used (e.g., Automated exposure control, adjustment of the mA and/or kV according to patient size, use of iterative reconstruction technique). CONTRAST: Isovue 370 VOLUME: 100 mL RADIATION DOSE SUMMARY: CTDlvol: 26.5 mGy DLP: 476.98 mGycm COMPARISON: Comparison is made with prior chest radiograph dated November 03/2025. FINDINGS: Hardware: Sternotomy wires and mediastinal clips. Lymph nodes: No significant lymph nodes are seen. Heart: The heart is not enlarged. Coronary artery calcification. Thoracic Aorta: No thoracic aortic aneurysm or dissection. Mild atheroscleroticplaque formation. Pulmonary Vessels: No large central pulmonary emboli are identified. Lungs and Airways: Mild emphysematous changes are present. Findings suggestive of scarring at the lung bases in the peripheral lateral aspect of the right middle lobe. Scarring in the right upper lobe. Pleura: Small left pleural effusion. Calcified pleural plaques at the left lungbase. Upper Abdomen: Visualized portions of the upper abdominal viscera are unremarkable. Bones: Degenerative changes of the thoracic spine. CT/CTA Chest W/WO Contrast IMPRESSION: No evidence of pulmonary embolism. Small left pleural effusion with calcified left pleural plaques. Findings suggestive of scarring atthe lung bases more prominent on the left side. Scarring in the right middle lobe. Reading Location: [facility] CC: Dr. Kashif Rothman DO; Dr. Royce Carroll MD ~ Lumber Sticker: Signed [facility]04-15-2025 Consult note [facility] Medical Records Department [address] [place] [address] Consultation - Twisting Press Operator 11/09/24 1337 MR#: [id number] Acct: [id number] Name: KAM GREENBERG Rep #:[id number] : 1950 74 From: Kashif Rothman DO PCP: Dr. Royce Carroll MD Status:A DM IN [facility] Assessment & Plan Assessment/Plan (1) COPD exacerbation: (2) Aspiration pneumonia: QUALIFIERS: Aspiration pneumonia type: unspecified Laterality: bilateral Lung location: unspecifiedpart of lung Qualified Code(s): J69.0 - Pneumonitis due to inhalation of food and vomit PLAN: Plan RECOMMENDATIONS: 1. Supplemental oxygen to maintain saturations at or above 90%. 2. Continue antibiotics to complete 7 days of therapy. 3. Continue scheduled bronchodilators and steroids. 4. Obtain CTA chest. 5. Maintain aspiration precautions. IMPRESSIONS: 1. Acute on chronic hypoxemic respiratory failure Presumed secondary to COPD exacerbation due to aspiration pneumonia. The patient has known end-stage lung disease along with a baseline oxygen requirement of 4 L/min. Unfortunately, the patient continues to desaturate withany form of physical exertion. He has been maintained on appropriate antimicrobials along with scheduled bronchodilators and steroids. Accordingly, will obtain CTA chest to ruleout pulmonary embolism and evaluate for any underlying interstitial lung process. In the interim, Iwould consider an attempt at gentle diuresis as tolerated by hemodynamics and renal function. 2. Cardiomyopathy/history of coronary artery disease status post CABG/hypertension Continue current medical management per cardiology recommendations. 3. Chronic tobacco dependency/GERD/hyperlipidemia/diabetes mellitus Complicates care, management, recovery and prognosis. Smoking cessation is strongly advised. This note was generated with [email or web address] dictation software. It may contain incorrectwords, spelling, and punctuation that were not noted in checking the note beforesigning. HPI Consult Data Date of Consult: 11/09/24 HPI Narrative Reason for Consultation: Hypoxemia HPI Narrative: The patient is a 74-year-old male, with a history as outlined below, who initially presented to theemergency department on November 03 with shortness of breath. The patient has a known history of coronary artery disease status post CABG, chronic heart failure with preserved ejection fraction, history of CVA, chronic kidney disease and chronic tobacco dependency. The patient reported that he is currently followed by Dr. Clark Rothman of pulmonary medicine at [facility]. According to the patient, he has Gold stage IV COPD with an FEV1 of approximately 25%. In addition, he has a baseline supplemental oxygen requirement of 4 L/min. The patient was subsequently admitted to the hospital with concern that his acute hypoxemic on chronic respiratory failure was related to a COPD exacerbation secondary to aspiration pneumonia. The patient has been followed by speech therapy over concerns for aspiration noted on his MBSS. In addition, repeat echocardiogram demonstrated an ejection fraction of 45% with moderate global hypokinesis of the LV, stage I diastolic dysfunction and a pulmonary artery systolic pressure of 65 mmHg. The patient was seen in consultation by cardiology. The patient remains on antimicrobials along with scheduled bronchodilators and IV steroids. According to nursing staff, he readily desaturates with any form of physical exertion. [facility] Medical History COPD exacerbation Essential tremor Stage 3a chronic kidney disease (CKD) Diabetes mellitus, type 2 CAD (coronary artery disease) History of CVA (cerebrovascular accident) Tobacco use Hyperlipidemia COPD (chronic obstructive pulmonary disease) Hypertension Home Medications ?Medication ?Instructions ?Recorded ?Last Taken ?Type clopidogrel 75 mg tablet 75 mg PO DAILY Check with pr imary 03/24/16 Unknown History doctor metoprolol tartrate 50 mg tablet 50 mg PO BID Check wi primary 03/24/16 12/10/22 History doctor amlodipine 5 mg tablet 5 mg PO DAILY Check with daniella nona 12/11/22 12/10/22 History doctor sertraline 100 mg tablet 100 mg PO DAILY Check with p dasha 12/11/22 12/10/22 History doctor albuterol sulfate 2.5 mg/3 mL 2.5 mg (3 mL) inhalation Q2H PRN 12/17/22 12/10/22 Rx (0.083 %) solution for nebulization PRN shortness of b reath or wheezing #1 mL ipratropium 0.5 mg-albuterol 3 mg 3 ml inhalation 4X/D AY #120 mL 12/17/22 Unknown Rx (2.5 mg base)/3 mL nebulization soln albuterol sulfate 90 mcg/actuation 2 puff inhalation Q 4H PRN PRN 11/03/24 Unknown History aerosol inhaler wheezing atorvastatin 40 mg tablet 40 mg PO QHS 11/03/24 Unknow n History fluticasone fur. 100 mcg-umeclid 1 ea inhalation DAILY 11/03/24 Unknown History 62.5 mcg-vilant 25 mcg inhalat.powder (Trelegy Ellipta) fluticasone propionate 50 1 spray intranasal BID 11/03 Unknown History mcg/actuation nasal spray,suspension metformin 500 mg tablet 500 mg PO BID 11/03/24 Unkno wn History Allergy/AdvReac Type Severity Reaction Status Date / Time acetaminophen (From Tylenol) Allergy Unknown Verified 11/03/24 17:30 morphine Allergy Other Verified 11/03/24 17:30 oyster extract Allergy Unknown Verified 11/03/24 17:30 lisinopril AdvReac Other Verified 11/03/24 17:30 Family History Mother Cancer Brain cancer, unclear type. Son Cancer Youngest son, metastatic testicular cancer. Father Heart disease Hypertension CVA (cerebral vascular accident) Surgical History S/P appendectomy H/O right inguinal hernia repair S/P bilateral foot surgery S/P triple vessel bypass H/O heart artery stent Social History household members: spouse current occupational status: retired Smoking Status: Current every day smoker tobacco type: cigarettes how long ago did patient quit smoking: Smoked since 1967, up to 1 ppd, recent down to 1 pk/4-5 days. alcohol intake: current alcohol intake frequency: holidays/special occasions only substance use type: does not use ROS ROS Narrative 10 systems were reviewed with pertinent positives as noted in the HPI above. Physical Exam Const alert and no apparent distress General Appearance: cooperative HEENT normocephalic, head/scalp atraumatic and moist oral mucous membranes Eyes PERRL, EOMs intact bilaterally and conjunctivae normal Neck supple General: trachea midline Chest inspection of chest normal Resp normal respiratory effort and no use of accessory muscles Effort and Inspection: able to speak in complete sentences Auscultation: diminished lung sounds Cardio regular rate and regular rhythm GI normal to inspection, nondistended, normoactive bowel sounds Extremity no clubbing, cyanosis or edema Skin no rashes or lesions noted Neuro CN's II-XII intact bilaterally, moves all extremities and no focal motor deficits Psych cooperative and affect normal Medical Records Data Medical Nutrition Assessment Dietitian: Malnutrition Criteria Met Start: 11/08/24 15:10 Freq: Status: Active Protocol: Document 11/08/24 15:10 RMA (Rec: 11/08/24 15:10 RMA [id number]) Nutrition Malnutrition Evidence of Yes Malnutrition Exists Malnutrition (severe Acute Illness/Injury ): Evidenced By Suboptimal Energy Intake (Severe),Weight Loss (Severe) Intake Problem Inadequate Oral Intake Etiology related to swallowing difficulty Signs/Symptoms as evidenced by NPO x 3 days Status Resolved Problem Clinical Problem Acute Disease or Injury Related Malnutrition Etiology severe protein-calorie malnutrition in the context of acute illness related to inadequate oral intake and difficulty chewing/swallowing Signs/Symptoms as evidenced by PO meeting less than 50% estimated nutrition needs x 1 week, extended NPO x 3-4 days and weight loss ~5-6% in less than 1 week Status Active Problem Recommendation Dietitian Will adjust diet to carbohydrate-controlled (no caloric Recommendations/ restriction). Changes Consistency/texture as per GUEST SERVICE REPRESENTATIVE. Will add 120mL PO glucerna shake w/ meals 3 times per day. Limit sodium and fluids as indicated once PO established with meals. Additional ONS and/or TF support to supplement PO as indicated if PO established suboptimal at meals and/or weight continues to decline. Lab / Micro Data 11/09/24 06:57 11/09/24 06:57 Labs: Laboratory Results - last 24 hr 11/08/24 17:19: POC Glucose 224 H 11/08/24 22:35: POC Glucose 326 H 11/09/24 06:20: POC Glucose 214 H 11/09/24 06:57: WBC 7.5, RBC 2.81 L, Hgb 9.2 L, Hct 28.7 L, MCV 102.1 H, MCH 32.7 H, MCHC 32.1, RDWStd Deviation 51.4 H, RDW Coeff of Christine 13.6, Plt Count 206, MPV 9.9, Immature Gran % (Auto) 0.700, Neut % (Auto) 74.0 H, Lymph % (Auto)18.2 L, [place] % (Auto) 6.8, Eos % (Auto) 0.3, Baso % (Auto) 0.0, Absolute Neuts (auto) 5.6, Absolute Lymphs (auto) 1.37, Nucleated RBC % 0, Sodium 142, Potassium 4.2, Chloride 102, Carbon Dioxide 32.5 H, Anion Gap 8, BUN 32 H, Creatinine 1.45 H, Estim Creat Clear Calc 49.54 L, Est GFR (MDRD) Non-Af 51 L, BUN/Creatinine Ratio 21.8 H, Glucose 219 H, Calcium 8.7 11/09/24 11:34: POC Glucose 312 H Rhythm Strip Rhythm Strip: Sinus Rhythm Rate: 80 Ectopy: PVC(s) Charges/Coding Visit Charges Inpatient E&M: 95071 Init Hosp L3 11/09/24 1346 Cosigner Signature (if applicable): CC: Dr. Royce Carroll MD~ Signed [facility]04-15-2025 Progress note Author Олег Horne [facility] Note Date/Time November 09, 2024 9:1 0am [facility] Medical Records Department [address] [place] [address] Progress Note - Cardiology 11/09/2459 MR#: [id number] Acct: [id number] Name: KAM GREENBERG Rep #:[id number] : 1950 74 From: Олег Horne MD PCP: Dr. Royce Carroll MD Status:A DM IN Location: [place] [address] Subjective Subjective Patient denies any chest pain is resting comfortably with nasal cannula in the recumbent position in bed. Patient's blood pressure still slightly elevated at 169 but he is only had 1 dose of the losartan. Objective Data Vital Signs: Vital Signs Temp Pulse Resp BP Pulse Ox O2 Del Method O2 Flow Rate 97.4 F L 87 30 H 163/69 H 95 Nasal Cannula 4 11/09/24 07:20 11/09/24 07:20 11/09/24 08:14 11/09/24 07:20 11/09/24 08:14 11/09/24 08:14 11/09/24 08:14 FiO2 37 11/04/24 22:00 Oxygen Flow Rate (L/min) 4 Oxygen Delivery Method Nasal Cannula Weight: 170 lb 3.15 oz Body Mass Index (BMI) 22.4 Intake & Output: Intake and Output for Last 24 Hours 11/07/24 11/08/24 11/09/24 23:59 23:59 23:59 Intake Total 270 / 270 510 / 560 100 / 100 Output Total 250 / 250 700 / 950 450 / 450 Balance -190 / -390 -350 / -350 Lab / Micro Data Attestation: I reviewed the patient's lab results. 11/09/24 06:57 11/09/24 06:57 Labs: Laboratory Results - last 24 hr 11/08/24 11:35: POC Glucose 264 H 11/08/24 17:19: POC Glucose 224 H 11/08/24 22:35: POC Glucose 326 H 11/09/24 06:20: POC Glucose 214 H 11/09/24 06:57: WBC 7.5, RBC 2.81 L, Hgb 9.2 L, Hct 28.7 L, MCV 102.1 H, MCH 32.7 H, MCHC 32.1, RDW Std Deviation 51.4 H, RDW Coeff of Christine 13.6, Plt Count 206, MPV 9.9, Immature Gran % (Auto) 0.700, Neut % (Auto) 74.0 H, Lymph % (Auto)18.2 L, [place] % (Auto) 6.8, Eos % (Auto) 0.3, Baso % (Auto) 0.0, Absolute Neuts (auto) 5.6, Absolute Lymphs (auto) 1.37, Nucleated RBC % 0, Sodium 142, Potassium 4.2, Chloride 102, Carbon Dioxide 32.5 H, Anion Gap 8, BUN 32 H, Creatinine 1.45 H, Estim Creat Clear Calc 49.54 L, Est GFR (MDRD) Non-Af 51 L, BUN/Creatinine Ratio 21.8 H, Glucose 219 H, Calcium 8.7 Rhythm Strip Rhythm Strip: Sinus Rhythm Rate: 80 Ectopy: PVC(s) Cardiology Labs/Tests 11/09/24 06:57: WBC 7.5, RBC 2.81 L, Hgb 9.2 L, Hct 28.7 L, MCV 102.1 H, MCH 32.7 H, MCHC 32.1, Plt Count 206, MPV 9.9, Immature Gran % (Auto) 0.700, Neut % (Auto) 74.0 H, Lymph % (Auto) 18.2 L, [place] % (Auto) 6.8, Eos % (Auto) 0.3, Baso % (Auto) 0.0, Absolute Neuts (auto) 5.6, Nucleated RBC % 0, Sodium 142, Potassium 4.2, Chloride 102, Carbon Dioxide 32.5 H, Anion Gap 8, BUN 32 H, Creatinine 1.45 H, Est GFR (MDRD) Non-Af 51 L, BUN/Creatinine Ratio 21.8 H, Glucose 219 H, Calcium 8.7 Rhythm: EKG: ECHO: Stress Test: Cardiac Cath: PCI: CT Surgery: Holter monitor: EPS: PPM: CXR: Chest CT Scan: Physical Exam Const alert and oriented x3 HEENT normocephalic Eyes EOMs intact bilaterally Neck no JVD Chest Chest: midline sternotomy incision Resp normal respiratory effort Resp Narrative: On nasal cannula oxygen. Cardio Rate: regular rate Rhythm: regular rhythm Heart Sounds: S1 normal, S2 normal and murmur systolic II/ blowing mid apex; Negative for click or gallop Extremity no pedal edema Neuro Neuro Narrative: Alert and oriented x 3 but does complain of memory deficits. Psych Psych Narrative: Mild memory deficits. Assessment & Plan Assessment/Plan (1) LV dysfunction: PLAN: Patient has mild global LV dysfunction EF of 45%. Historically back in 2022 it had been 55 to 60%. The patient did have a minor bump in his troponins when he was initially hospitalized but this was felt to be related to his aspiration pneumonia and hypoxia. Losartan has been added to his medical regimen. His creatinine is slightly elevated at 1.45. Therefore, I would not add spironolactone at this point in time. The patient is on metoprolol tartrate and he does not appear to be volumeoverloaded. I did discuss long-term treatment options with the patient including the possibility of invasive evaluation and/or treatments. The patient voiced to me that he was not interested in any aggressive therapy at this point in time. Hiscomment was if my heart quits it quits. I would recommend that he follow-up with his primary care physicians to determine long-term management. His echocardiogram should be repeated as a limited echo in 6 weeks to reevaluatehis LV function recovery as this may be stunning from his profound hypoxia on admission. If it continues to be impaired then his [facility] guest request runner may wish to further evaluate this after discussion with the patientdepending on his long- term expectations. (2) Essential hypertension: PLAN: Blood pressure still remains elevated but he is only had 1 dose of the losartan. I recommended he does not come under better control consideration be given to adding either hydrochlorothiazide if his creatinine stays elevated or spironolactone if his creatinine remains stable. This could be done in the ambulatory setting after he is followed up in his primary care physician's office. (3) Coronary artery disease: QUALIFIERS: Coronary Disease-Associated Artery/Lesion type: bypassgraft [place] vs. transplanted heart: [place] heart Associated angina: without angina Qualified Code(s): I25.810 - Atherosclerosis of coronary artery bypass graft(s) without angina pectoris PLAN: Patient denies any angina at this point in time. He is status post three- vessel bypass in 1999. He has been monitored long-term through the [facility]. Dr. Zak Batista he had been his original guest request runner back in 1999. (4) Aspiration pneumonia: QUALIFIERS: Aspiration pneumonia type: unspecified Laterality: bilateral Lung location: unspecified part of lung Qualified Code(s): J69.0 - Pneumonitis due to inhalation of food and vomit PLAN: Further treatment and evaluation per the primary service. PLAN: Plan 1. Continue current medical therapy as noted above. 2. From a cardiovascular standpoint given the patient's expectations as noted above no further evaluation is indicated at this point in time in my opinion. 3. The patient should follow-up with his [facility] physicians and have alimited echocardiogram repeated at 6 weeks to then determine if further evaluation may be indicated. 4. We will sign off if further assistance is needed please recall us. Charges/Coding Visit Charges Inpatient E&M: 20799 Subs Hosp L2 11/09/24 0910 <Electronically signed by Олег Horne MD> Cosigner Signature (if applicable): CC: ~ Signed [facility] Work Phone: [phone]) 653-242704-15-2025 Progress note [facility] Medical Records Department [address] [place] [address] Progress Note - Cardiology 11/09/24 0859 MR#: [id number] Acct: [id number] Name: KAM GREENBERG Rep #:[id number] : 1950 74 From: Олег Horne MD PCP: Dr. Royce Carroll MD Status:A DM IN Location: [place] [id number]- [id number] Subjective Subjective Patient denies any chest pain is resting comfortably with nasal cannula in the recumbent position in bed. Patient's blood pressure still slightly elevated at 169 but he is only had 1 dose of the losartan. Objective Data Vital Signs: Vital Signs Temp Pulse Resp BP Pulse Ox O2 Del Method O2 Flow Rate 97.4 F L 87 30 H 163/69 H 95 Nasal Cannula 4 11/09/24 07:20 11/09/24 07:20 11/09/24 08:14 11/09/24 07:20 11/09/24 08:14 11/09/24 08:14 11/09/24 08:14 FiO2 37 11/04/24 22:00 Oxygen Flow Rate (L/min) 4 Oxygen Delivery Method Nasal Cannula Weight: 170 lb 3.15 oz Body Mass Index (BMI) 22.4 Intake & Output: Intake and Output for Last 24 Hours 11/07/24 11/08/24 11/09/24 23:59 23:59 23:59 Intake Total 270 / 270 510 / 560 100 / 100 Output Total 250 / 250 700 / 950 450 / 450 Balance -190 / -390 -350 / -350 Lab / Micro Data Attestation: I reviewed the patient's lab results. 11/09/24 06:57 11/09/24 06:57 Labs: Laboratory Results - last 24 hr 11/08/24 11:35: POC Glucose 264 H 11/08/24 17:19: POC Glucose 224 H 11/08/24 22:35: POC Glucose 326 H 11/09/24 06:20: POC Glucose 214 H 11/09/24 06:57: WBC 7.5, RBC 2.81 L, Hgb 9.2 L, Hct 28.7 L, MCV 102.1 H, MCH 32.7 H, MCHC 32.1, RDWStd Deviation 51.4 H, RDW Coeff of Christine 13.6, Plt Count 206, MPV 9.9, Immature Gran % (Auto) 0.700, Neut % (Auto) 74.0 H, Lymph % (Auto)18.2 L, [place] % (Auto) 6.8, Eos % (Auto) 0.3, Baso % (Auto) 0.0, Absolute Neuts (auto) 5.6, Absolute Lymphs (auto) 1.37, Nucleated RBC % 0, Sodium 142, Potassium 4.2, Chloride 102, Carbon Dioxide 32.5 H, Anion Gap 8, BUN 32 H, Creatinine 1.45 H, Estim Creat Clear Calc 49.54 L, Est GFR (MDRD) Non-Af 51 L, BUN/Creatinine Ratio 21.8 H, Glucose 219 H, Calcium 8.7 Rhythm Strip Rhythm Strip: Sinus Rhythm Rate: 80 Ectopy: PVC(s) Cardiology Labs/Tests 11/09/24 06:57: WBC 7.5, RBC 2.81 L, Hgb 9.2 L, Hct 28.7 L, MCV 102.1 H, MCH 32.7 H, MCHC 32.1, PltCount 206, MPV 9.9, Immature Gran % (Auto) 0.700, Neut % (Auto) 74.0 H, Lymph % (Auto) 18.2 L, [place]% (Auto) 6.8, Eos % (Auto) 0.3, Baso % (Auto) 0.0, Absolute Neuts (auto) 5.6, Nucleated RBC % 0, Sodium 142, Potassium 4.2, Chloride 102, Carbon Dioxide 32.5 H, Anion Gap 8, BUN 32 H, Creatinine 1.45 H, Est GFR (MDRD) Non-Af 51 L, BUN/Creatinine Ratio 21.8 H, Glucose 219 H, Calcium 8.7 Rhythm: EKG: ECHO: Stress Test: Cardiac Cath: PCI: CT Surgery: Holter monitor: EPS: PPM: CXR: Chest CT Scan: Physical Exam Const alert and oriented x3 HEENT normocephalic Eyes EOMs intact bilaterally Neck no JVD Chest Chest: midline sternotomy incision Resp normal respiratory effort Resp Narrative: On nasal cannula oxygen. Cardio Rate: regular rate Rhythm: regular rhythm Heart Sounds: S1 normal, S2 normal and murmur systolic II/ blowing mid apex; Negative for click or gallop Extremity no pedal edema Neuro Neuro Narrative: Alert and oriented x 3 but does complain of memory deficits. Psych Psych Narrative: Mild memory deficits. Assessment & Plan Assessment/Plan (1) LV dysfunction: PLAN: Patient has mild global LV dysfunction EF of 45%. Historically back in 2022 it had been 55 to60%. The patient did have a minor bump in his troponins when he was initially hospitalized but thiswas felt to be related to his aspiration pneumonia and hypoxia. Losartan has been added to his medical regimen. His creatinine is slightly elevated at 1.45. Therefore, I would not add spironolactone at this point in time. The patient is on metoprolol tartrate andhe does not appear to be volumeoverloaded. I did discuss long-term treatment options with the patient including the possibility of invasive evaluation and/or treatments. The patient voiced to me that he was not interested in any aggressive therapy at this point in time. Hiscomment was if my heart quits it quits. I would recommend that he follow-up with his primary care physicians to determine long-term management. His echocardiogram should be repeated as a limited echo in 6 weeks to reevaluatehis LV function recovery as this may be stunning from his profound hypoxia on admission. If it continues to be impairedthen his [facility] guest request runner may wish to further evaluate this after discussion with the p atpepe on his long-term expectations. (2) Essential hypertension: PLAN: Blood pressure still remains elevated but he is only had 1 dose of the losartan. I recommended he does not come under better control consideration be given to adding either hydrochlorothiazide if his creatinine stays elevated or spironolactone if his creatinine remains stable. This could be done in the ambulatory setting after he is followed up in his primary care physician's office. (3) Coronary artery disease: QUALIFIERS: Coronary Disease-Associated Artery/Lesion type: bypassgraft [place] vs. transplanted heart: [place] heart Associated angina: without angina Qualified Code(s): I25.810 - Atherosclerosis of coronary artery bypass graft(s) without angina pectoris PLAN: Patient denies any angina at this point in time. He is status post three- vessel bypass in 1999. He has been monitored long-term through the [facility]. Dr. Zak Batista he had been his original guest request runner back in 1999. (4) Aspiration pneumonia: QUALIFIERS: Aspiration pneumonia type: unspecified Laterality: bilateral Lung location: unspecifiedpart of lung Qualified Code(s): J69.0 - Pneumonitis due to inhalation of food and vomit PLAN: Further treatment and evaluation per the primary service. PLAN: Plan 1. Continue current medical therapy as noted above. 2. From a cardiovascular standpoint given the patient's expectations as noted above no further evaluation is indicated at this point in time in my opinion. 3. The patient should follow-up with his [facility] physicians and have alimited echocardiogram repeated at 6 weeks to then determine if further evaluation may be indicated. 4. We will sign off if further assistance is needed please recall us. Charges/Coding Visit Charges Inpatient E&M: 81740 Subs Hosp L2 11/09/24 0910 Cosigner Signature (if applicable): CC: ~ Signed [facility]04-14-2025 Progress note Author Rafaela Pelayo [facility] Note Date/Time November 08, 2024 3:5 0pm [facility] Medical Records Department [address] [place] [address] Progress Note 11/08/24 1049 MR#: [id number] Acct: [id number] Name: KAM GREENBERG Rep #:[id number] : 1950 74 From: Rafaela Pelayo MD PCP: Dr. Royce Carroll MD Status:A DM IN Location: [place] [address] Subjective Subjective Patient seen and examined. He was lying comfortably in bed and had no active complaints. Review of systems otherwise negative. He is awaiting speech therapyevaluation today. Objective Data Objective Data Vital Signs: Vital Signs Temp Pulse Resp BP Pulse Ox O2 Del Method O2 Flow Rate 97.4 F L 94 18 169/86 H 92 Nasal Cannula 6 11/08/24 09:25 11/08/24 09:29 11/08/24 09:25 11/08/24 09:29 11/08/24 09:48 11/08/24 09:48 11/08/24 09:48 FiO2 37 11/04/24 22:00 Oxygen Flow Rate (L/min) 6 Oxygen Delivery Method Nasal Cannula Weight: 169 lb 1.513 oz Body Mass Index (BMI) 22.3 Intake & Output: Intake and Output for Last 24 Hours 11/06/24 11/07/24 11/08/24 23:59 23:59 23:59 Intake Total 390 / 390 270 / 270 100 / 100 Output Total 1100 / 1100 250 / 250 300 / 300 Balance -710 / -710 20 / 20 -200 / -200 Lab / Micro Data 11/08/24 04:01 11/08/24 04:01 Labs: Laboratory Results - last 24 hr 11/07/24 11:26: POC Glucose 215 H 11/07/24 17:38: POC Glucose 170 H 11/07/24 23:41: POC Glucose 202 H 11/08/24 04:01: WBC 6.2, RBC 2.83 L, Hgb 9.2 L, Hct 29.2 L, MCV 103.2 H, MCH 32.5 H, MCHC 31.5 L, RDW Std Deviation 53.1 H, RDW Coeff of Christine 13.9, Plt Count 195, MPV 9.5, Immature Gran % (Auto) 0.300, Neut % (Auto) 79.2 H, Lymph % (Auto)14.7 L, Appling % (Auto) 5.6, Eos % (Auto) 0.0, Baso % (Auto) 0.2, Absolute Neuts (auto) 4.9, Absolute Lymphs (auto) 0.92, Nucleated RBC % 0, Sodium 141, Potassium 4.8, Chloride 101, Carbon Dioxide 30.1, Anion Gap 10, BUN 38 H, Creatinine 1.51 H, Estim Creat Clear Calc 47.27 L, Est GFR (MDRD) Non-Af 48 L, BUN/Creatinine Ratio 25.1 H, Glucose 207 H, Calcium 8.7 11/08/24 06:02: POC Glucose 179 H Micro: Microbiology 11/04/24 16:00 Mucosa - Nasopharyngeal Respiratory Panel (PCR) - Final 11/04/24 19:08 Urine, Clean Catch Legionella Antigen - Final 11/04/24 19:08 Urine, Clean Catch Streptococcus pneumoniae Antigen (M - Final 11/03/24 18:55 Mucosa - Nose SARS-CoV-2, Influenza & RSV (PCR) - Final Physical Exam Const alert, oriented x3, no apparent distress and well nourished General Appearance: cooperative HEENT normocephalic, head/scalp atraumatic and oropharynx normal Eyes PERRL and EOMs intact bilaterally Neck no lymphadenopathy, supple and no JVD Lymph Lymphatic: no lymphadenopathy noted and no lymphedema noted Resp Resp Narrative: mildly diminished breath sounds bibasally, no wheezes or crackles. On 6L of oxygen by nasal canula Cardio regular rate, regular rhythm, S1 normal heart sound, S2 normal heart sound and no murmurs GI normal to inspection, nondistended, normoactive bowel sounds, soft to palpation,non-tender and non-distended Extremity normal capillary refill, no clubbing, cyanosis or edema and no calf tenderness General Extremity: no tenderness to palpation of joints or extremities Skin General Skin Exam: no breakdown Neuro CN's II-XII intact bilaterally, no focal motor deficits and no sensory deficits noted Motor Exam: strength 5/5 throughout and general weakness Psych thought process normal and cooperative Appearance: appropriate Assessment & Plan Assessment/Plan (1) Aspiration pneumonia: QUALIFIERS: Aspiration pneumonia type: unspecified Laterality: bilateral Lung location: unspecified part of lung Qualified Code(s): J69.0 - Pneumonitis due to inhalation of food and vomit (2) COPD exacerbation: PLAN: Plan #Acute on chronic hypoxic respiratory failure due to COPD and aspiration pneumonia * currently on 6L of oxygen * CXR showed evidence of pneumonia * on IV soumedrol * on IV zosyn. Breathing treatment with bronchodilators * he had modified barium swallow and coughed during the process * speech therapy on board. TO have further speech evaluation again today. * titrate oxygen to maintain sats >90%. * Breathing treatment with bronchodilators. Titrate oxygen to maintain sats >90% * Respiratory panel was negative. Urine for strep and Legionella were also negative. * #Cardiomyopathy * has EF of 45% with mild to moderate global hypokinesis of the left ventricle and stage I diastolic dysfunction and pulmonary artery systolic pressure of 65mmHg * was on IV lasix. * still on 6L of oxygen. Desaturates with ambulation. * echo from 2022 showed EF of 55-60% and stage I diastolic dysfunction and normal LV systolic function. * in light of him still requiring 6L of oxygen, I do think it is reasonable to get cardiology input with regards to the drop in EF and moderate global hypokinesis * # Troponins were mildly elevated on admission at 131 and peaked at 159 but trended downwards to 133. * #CAD s/p CABG and stents * on plavix and statin as well as beta kaushik * #Hypertension: on metoprolol and amlodipine #GERD: on PPI DVT prophylaxis: heparin * # # Charges/Coding Visit Charges Inpatient E&M: 14722 Subs Hosp L2 11/08/24 1550 <Electronically signed by Rafaela Pelayo MD> Rafaela Pelayo MD Cosigner Signature (if applicable): CC: ~ Signed [facility] Work Phone: [phone]) [phone] Progress note [facility] Medical Records Department [address] [place] [address] Progress Note 11/08/24 1049 MR#: [id number] Acct: [id number] Name: KAM GREENBERG Rep #:[id number] : 1950 74 From: Rafaela Pelayo MD PCP: Dr. Royce Carroll MD Status:A DM IN Location: [place] [address] Subjective Subjective Patient seen and examined. He was lying comfortably in bed and had no active complaints. Review of systems otherwise negative. He is awaiting speech therapyevaluation today. Objective Data Objective Data Vital Signs: Vital Signs Temp Pulse Resp BP Pulse Ox O2 Del Method O2 Flow Rate 97.4 F L 94 18 169/86 H 92 Nasal Cannula 6 11/08/24 09:25 11/08/24 09:29 11/08/24 09:25 11/08/24 09:29 11/08/24 09:48 11/08/24 09:48 11/08/24 09:48 FiO2 37 11/04/24 22:00 Oxygen Flow Rate (L/min) 6 Oxygen Delivery Method Nasal Cannula Weight: 169 lb 1.513 oz Body Mass Index (BMI) 22.3 Intake & Output: Intake and Output for Last 24 Hours 11/06/24 11/07/24 11/08/24 23:59 23:59 23:59 Intake Total 390 / 390 270 / 270 100 / 100 Output Total 1100 / 1100 250 / 250 300 / 300 Balance -710 / -710 20 / 20 -200 / -200 Lab / Micro Data 11/08/24 04:01 11/08/24 04:01 Labs: Laboratory Results - last 24 hr 11/07/24 11:26: POC Glucose 215 H 11/07/24 17:38: POC Glucose 170 H 11/07/24 23:41: POC Glucose 202 H 11/08/24 04:01: WBC 6.2, RBC 2.83 L, Hgb 9.2 L, Hct 29.2 L, MCV 103.2 H, MCH 32.5 H, MCHC 31.5 L, RDW Std Deviation 53.1 H, RDW Coeff of Christine 13.9, Plt Count 195, MPV 9.5, Immature Gran % (Auto) 0.300, Neut % (Auto) 79.2 H, Lymph % (Auto)14.7 L, Appling % (Auto) 5.6, Eos % (Auto) 0.0, Baso % (Auto) 0.2, Absolute Neuts (auto) 4.9, Absolute Lymphs (auto) 0.92, Nucleated RBC % 0, Sodium 141, Potassium 4.8, Chloride 101, Carbon Dioxide 30.1, Anion Gap 10, BUN 38 H, Creatinine 1.51 H, Estim Creat Clear Calc 47.27 L, Est GFR (MDRD) Non-Af 48 L, BUN/Creatinine Ratio 25.1 H, Glucose 207 H, Calcium 8.7 11/08/24 06:02: POC Glucose 179 H Micro: Microbiology 11/04/24 16:00 Mucosa - Nasopharyngeal Respiratory Panel (PCR) - Final 11/04/24 19:08 Urine, Clean Catch Legionella Antigen - Final 11/04/24 19:08 Urine, Clean Catch Streptococcus pneumoniae Antigen (M - Final 11/03/24 18:55 Mucosa - Nose SARS-CoV-2, Influenza & RSV (PCR) - Final Physical Exam Const alert, oriented x3, no apparent distress and well nourished General Appearance: cooperative HEENT normocephalic, head/scalp atraumatic and oropharynx normal Eyes PERRL and EOMs intact bilaterally Neck no lymphadenopathy, supple and no JVD Lymph Lymphatic: no lymphadenopathy noted and no lymphedema noted Resp Resp Narrative: mildly diminished breath sounds bibasally, no wheezes or crackles. On 6L of oxygen by nasal canula Cardio regular rate, regular rhythm, S1 normal heart sound, S2 normal heart sound and no murmurs GI normal to inspection, nondistended, normoactive bowel sounds, soft to palpation,non-tender and non-distended Extremity normal capillary refill, no clubbing, cyanosis or edema and no calf tenderness General Extremity: no tenderness to palpation of joints or extremities Skin General Skin Exam: no breakdown Neuro CN's II-XII intact bilaterally, no focal motor deficits and no sensory deficits noted Motor Exam: strength 5/5 throughout and general weakness Psych thought process normal and cooperative Appearance: appropriate Assessment & Plan Assessment/Plan (1) Aspiration pneumonia: QUALIFIERS: Aspiration pneumonia type: unspecified Laterality: bilateral Lung location: unspecifiedpart of lung Qualified Code(s): J69.0 - Pneumonitis due to inhalation of food and vomit (2) COPD exacerbation: PLAN: Plan #Acute on chronic hypoxic respiratory failure due to COPD and aspiration pneumonia * currently on 6L of oxygen * CXR showed evidence of pneumonia * on IV soumedrol * on IV zosyn. Breathing treatment with bronchodilators * he had modified barium swallow and coughed during the process * speech therapy on board. TO have further speech evaluation again today. * titrate oxygen to maintain sats >90%. * Breathing treatment with bronchodilators. Titrate oxygen to maintain sats >90% * Respiratory panel was negative. Urine for strep and Legionella were also negative. * #Cardiomyopathy * has EF of 45% with mild to moderate global hypokinesis of the left ventricle and stage I diastolic dysfunction and pulmonary artery systolic pressure of 65mmHg * was on IV lasix. * still on 6L of oxygen. Desaturates with ambulation. * echo from 2022 showed EF of 55-60% and stage I diastolic dysfunction and normal LV systolic function. * in light of him still requiring 6L of oxygen, I do think it is reasonable to get cardiology inputwith regards to the drop in EF and moderate global hypokinesis * # Troponins were mildly elevated on admission at 131 and peaked at 159 but trended downwards to 133. * #CAD s/p CABG and stents * on plavix and statin as well as beta kaushik * #Hypertension: on metoprolol and amlodipine #GERD: on PPI DVT prophylaxis: heparin * # # Charges/Coding Visit Charges Inpatient E&M: 74535 Subs Hosp L2 11/08/24 1550 Rafaela Pelayo MD Cosigner Signature (if applicable): CC: ~ Signed [facility]04-14-2025 Consult note Author Олег Horne [facility] Note Date/Time November 08, 2024 1:2 6pm [facility] Medical Records Department [address] [place] [address] Consultation - Cardiology 11/08/24 1227 MR#: [id number] Acct: [id number] Name: KAM GREENBERG Rep #:[id number] : 1950 74 From: Олег Horne MD PCP: Dr. Royce Carroll MD Status:A DM IN Location: [facility] [id number] Assessment & Plan Assessment/Plan (1) Elevated troponin: PLAN: Patient's troponins were elevated but remained steady at 131, 139, and then 133. He denies any chest pain but he does not remember what his previous anginal symptoms were like prior to his bypass graft surgery and prior to that his stents. He does remember exactly what he was doing when he had the 2 eventsbut he does not remember the symptoms. I do feel that it is highly likely his hypoxia and his bilateral pneumonias werethe reason for the elevation in the troponins in the face of someone with known coronary artery disease. However, he does have new global LV systolic dysfunction which may be related to ischemia or alternatively it may be related to his hypoxia and current pulmonary status. (2) Essential hypertension: PLAN: Patient's blood pressure is moderately elevated in the 165?170 systolic range. I would recommend that we add losartan to his medical regimen for both LV function as well as antihypertensive effect. If his blood pressure continuesto be elevated consideration should be given to adding spironolactone 25 mg daily to his medical regiment and monitor his potassium closely. (3) Aspiration pneumonia: QUALIFIERS: Aspiration pneumonia type: unspecified Laterality: bilateral Lung location: unspecified part of lung Qualified Code(s): J69.0 - Pneumonitis due to inhalation of food and vomit PLAN: Treatment per the primary service. The patient does have relatively new elevation in his pulmonary artery pressures most likely secondary to this pneumonic process. His echocardiogram should be repeated after he completely recovers from his pneumonia and is back to baseline home oxygen supplementation. (4) History of TIA (transient ischemic attack): PLAN: Patient has been monitored to the [facility] by his report. He does have some memory deficits by his report. I did find an old report from 2016 where he had a greater than 70% left internal carotid artery stenosis. He does tell me he has had multiple TIAs/CVAs and has memory deficitsas noted. I do not know and he does not know if this left carotid was ever intervened upon. (5) Coronary artery disease: QUALIFIERS: Coronary Disease-Associated Artery/Lesion type: bypassgraft [place] vs. transplanted heart: [place] heart Associated angina: without angina Qualified Code(s): I25.810 - Atherosclerosis of coronary artery bypass graft(s) without angina pectoris PLAN: Patient status post coronary bypass graft surgery in 1999 at [facility] receiving a three-vessel bypass we do not know the targets. His long-term evaluation and follow-up is been through the [facility] by his report. I do not find any record of him being seen in the [place] [facility] as an ambulatory patient. (6) LV dysfunction: PLAN: Patient's LV is globally depressed mildly with an EF of 45%. In 2022 his EF was 55 to 60% on echocardiogram. He does have some mild to moderate mitral and tricuspid regurgitation but this is unchanged over the last 2 years. PLAN: Plan 1. Recommend add losartan 50 mg every afternoon to his medical regimen. 2. Will continue with supportive therapy for his pulmonary status. 3. Once his pulmonary status is felt to be back to baseline would recommend repeating a limited echo to look at his pulmonary artery pressures and LV function in 6 weeks. 4. Will need to follow-up with his [facility] cardiology/cardiovascular services for his coronary artery disease as well as his carotid disease. HPI Consult Data Date of Consult: 11/08/24 HPI Narrative HPI Narrative: KAM GREENBERG, is a 74 M who presents with what appears to be aspiration pneumonia. Patient carries a history of multiple TIAs/CVAs as well as coronary artery disease. His primary cardiovascular care has been through the [facility]. Patient had an echocardiogram back in 2015 which showed a right ventricular systolic pressure of 23 mmHg on the echo done today is up to 65. The patient has had multiple admissions for pneumonias in the interim. The patient is on home oxygen therapy. Since his admission he has been able to wean down somewhaton his oxygen he is now on 6 L but he still gets short of breath with activity. He gets short of breath with activity his home environment as well. His echocardiogram done on this admission showed normal LV size with an EF of 45% his previous echo the most recent one prior to this was in 2022 his EF was 55 to 60%. His right ventricle is normal the left atrium is mildly enlarged right atrium is normal. He has 2+ mitral regurgitation and 2+ tricuspid regurgitation which is really unchanged from 2022. Currently the patient is resting in her composition in bed. He denies any chestpains but he does report he has significant memory deficits he does not remembermuch but he does remember that Dr. Diop's Pavan and Dr. Elroy Batista took care of him at [facility] in 1999 when he had bypass surgery. He received a three-vessel bypass at that time. He does not know the targets. The patient is on metoprolol in his home environment. He is not on an ARB he has some type of reaction to lisinopril remotely. The patient has cut down his smoking to 3 to 4 cigarettes a day. Reports he has no desire to smoke unless heis around others that are smoking. [facility] Medical History COPD exacerbation Essential tremor Stage 3a chronic kidney disease (CKD) Diabetes mellitus, type 2 CAD (coronary artery disease) History of CVA (cerebrovascular accident) Tobacco use Hyperlipidemia COPD (chronic obstructive pulmonary disease) Hypertension Home Medications ?Medication ?Instructions ?Recorded ?Last Taken ?Type clopidogrel 75 mg tablet 75 mg PO DAILY Check with pr imary 03/24/16 Unknown History doctor metoprolol tartrate 50 mg tablet 50 mg PO BID Check wi primary 03/24/16 12/10/22 History doctor amlodipine 5 mg tablet 5 mg PO DAILY Check with daniella nona 12/11/22 12/10/22 History doctor sertraline 100 mg tablet 100 mg PO DAILY Check with p dasha 12/11/22 12/10/22 History doctor albuterol sulfate 2.5 mg/3 mL 2.5 mg (3 mL) inhalation Q2H PRN 12/17/22 12/10/22 Rx (0.083 %) solution for nebulization PRN shortness of b reath or wheezing #1 mL ipratropium 0.5 mg-albuterol 3 mg 3 ml inhalation 4X/D AY #120 mL 12/17/22 Unknown Rx (2.5 mg base)/3 mL nebulization soln albuterol sulfate 90 mcg/actuation 2 puff inhalation Q 4H PRN PRN 11/03/24 Unknown History aerosol inhaler wheezing atorvastatin 40 mg tablet 40 mg PO QHS 11/03/24 Unknow n History fluticasone fur. 100 mcg-umeclid 1 ea inhalation DAILY 11/03/24 Unknown History 62.5 mcg-vilant 25 mcg inhalat.powder (Trelegy Ellipta) fluticasone propionate 50 1 spray intranasal BID 11/03 Unknown History mcg/actuation nasal spray,suspension metformin 500 mg tablet 500 mg PO BID 11/03/24 Unkno wn History Allergy/AdvReac Type Severity Reaction Status Date / Time acetaminophen (From Tylenol) Allergy Unknown Verified 11/03/24 17:30 morphine Allergy Other Verified 11/03/24 17:30 oyster extract Allergy Unknown Verified 11/03/24 17:30 lisinopril AdvReac Other Verified 11/03/24 17:30 Family History Mother Cancer Brain cancer, unclear type. Son Cancer Youngest son, metastatic testicular cancer. Father Heart disease Hypertension CVA (cerebral vascular accident) Surgical History S/P appendectomy H/O right inguinal hernia repair S/P bilateral foot surgery S/P triple vessel bypass H/O heart artery stent Social History household members: spouse current occupational status: retired Smoking Status: Current every day smoker tobacco type: cigarettes how long ago did patient quit smoking: Smoked since 1967, up to 1 ppd, recent down to 1 pk/4-5 days. alcohol intake: current alcohol intake frequency: holidays/special occasions only substance use type: does not use ROS Constitutional Constitutional: Reports systems reviewed and no addt'l complaints, except as documented Eyes Eyes: Reports systems reviewed and no addt'l complaints, except as documented ENT HEENT: Reports systems reviewed and no addt'l complaints, except as documented Cardiovascular Cardiovascular: Reports as per HPI Respiratory/Chest Respiratory/Chest: Reports as per HPI Gastrointestinal Gastrointestinal: Reports systems reviewed and no addt'l complaints, except as documented Genitourinary Genitourinary: Reports systems reviewed and no addt'l complaints, except as documented Musculoskeletal Musculoskeletal: Reports systems reviewed and no addt'l complaints, except as documented Integumentary Integumentary: Reports systems reviewed and no addt'l complaints, except as documented Neurologic Neurologic: Reports as per HPI Psychiatric Psychiatric: Reports as per HPI Endocrine Endocrinology: Reports systems reviewed and no addt'l complaints, except as documented Hematologic/Lymphatic Hematologic/Lymphatic: Reports systems reviewed and no addt'l complaints, exceptas documented Allergic/Immunologic Allergic/Immunologic: Reports systems reviewed and no addt'l complaints, except as documented Physical Exam Const alert and oriented x3 HEENT normocephalic Eyes EOMs intact bilaterally Neck no JVD and no carotid bruits Chest Chest: midline sternotomy incision Cardio regular rate, regular rhythm, S1 normal heart sound, S2 normal heart sound, no rub and no gallops Heart Sounds: murmur systolic II/ blowing holo apex Extremity no pedal edema Psych mental status grossly normal Risk Stratification Risk Stratification Applicable: Yes Age >/= 65: Yes >/= 3 CAD Risk Factors (HTN, HLD, DM, family hx of CAD, or current smoker): Yes Aspirin Use in the Past 7 Days: No Severe Angina (>/= episodes in 24 hours): No EKG ST Changes >/= 0.5mm: No Positive Cardiac Marker: Yes AMBER Risk Stratification Score: 3 AMBER % Risk: 13% Risk Charges/Coding Visit Charges Inpatient E&M: 59713 Init Hosp L3 Objective Data Vital Signs: Vital Signs Temp Pulse Resp BP Pulse Ox O2 Del Method O2 Flow Rate 97.4 F L 83 20 H 169/86 H 94 Nasal Cannula 6 11/08/24 09:25 11/08/24 10:55 11/08/24 10:55 11/08/24 09:29 11/08/24 10:40 11/08/24 09:48 11/08/24 10:40 FiO2 37 11/04/24 22:00 Oxygen Flow Rate (L/min) 6 Oxygen Delivery Method Nasal Cannula Weight: 169 lb 1.513 oz Body Mass Index (BMI) 22.3 Intake & Output: Intake and Output for Last 24 Hours 11/06/24 11/07/24 11/08/24 23:59 23:59 23:59 Intake Total 390 / 390 270 / 270 340 / 340 Output Total 1100 / 1100 250 / 250 500 / 500 Balance -710 / -710 -160 / -160 Lab / Micro Data Attestation: I reviewed the patient's lab results. 11/08/24 04:01 11/08/24 04:01 Labs: Laboratory Results - last 24 hr 11/07/24 17:38: POC Glucose 170 H 11/07/24 23:41: POC Glucose 202 H 11/08/24 04:01: WBC 6.2, RBC 2.83 L, Hgb 9.2 L, Hct 29.2 L, MCV 103.2 H, MCH 32.5 H, MCHC 31.5 L, RDW Std Deviation 53.1 H, RDW Coeff of Christine 13.9, Plt Count 195, MPV 9.5, Immature Gran % (Auto) 0.300, Neut % (Auto) 79.2 H, Lymph % (Auto)14.7 L, Appling % (Auto) 5.6, Eos % (Auto) 0.0, Baso % (Auto) 0.2, Absolute Neuts (auto) 4.9, Absolute Lymphs (auto) 0.92, Nucleated RBC % 0, Sodium 141, Potassium 4.8, Chloride 101, Carbon Dioxide 30.1, Anion Gap 10, BUN 38 H, Creatinine 1.51 H, Estim Creat Clear Calc 47.27 L, Est GFR (MDRD) Non-Af 48 L, BUN/Creatinine Ratio 25.1 H, Glucose 207 H, Calcium 8.7 11/08/24 06:02: POC Glucose 179 H 11/08/24 11:35: POC Glucose 264 H Rhythm Strip Rhythm Strip: Sinus Rhythm Rate: 85 Cardiology Labs/Tests 11/08/24 04:01: WBC 6.2, RBC 2.83 L, Hgb 9.2 L, Hct 29.2 L, MCV 103.2 H, MCH 32.5 H, MCHC 31.5 L, Plt Count 195, MPV 9.5, Immature Gran % (Auto) 0.300, Neut % (Auto) 79.2 H, Lymph % (Auto) 14.7 L, Appling % (Auto) 5.6, Eos % (Auto) 0.0, Baso % (Auto) 0.2, Absolute Neuts (auto) 4.9, Nucleated RBC % 0, Sodium 141, Potassium 4.8, Chloride 101, Carbon Dioxide 30.1, Anion Gap 10, BUN 38 H, Creatinine 1.51 H, Est GFR (MDRD) Non-Af 48 L, BUN/Creatinine Ratio 25.1 H, Glucose 207 H, Calcium 8.7 Rhythm: EKG: ECHO: Stress Test: Cardiac Cath: PCI: CT Surgery: Holter monitor: EPS: PPM: CXR: Chest CT Scan: 11/08/24 1326 <Electronically signed by Олег Horne MD> Cosigner Signature (if applicable): CC: Dr. Royce Carroll MD~ Signed [facility] Work Phone: [phone] 166-539904-14-2025 Consult note [facility] Medical Records Department [address] [place] [address] Consultation - Cardiology 11/08/24 1227 MR#: [id number] Acct: [id number] Name: KAM GREENBERG Rep #:[id number] : 1950 74 From: Олег Horne MD PCP: Dr. Royce Carroll MD Status:A DM IN Location: [place] [id number]- Assessment & Plan Assessment/Plan (1) Elevated troponin: PLAN: Patient's troponins were elevated but remained steady at 131, 139, and then 133. He denies any chest pain but he does not remember what his previous anginal symptoms were like prior to his bypass graft surgery and prior to that his stents. He does remember exactly what he was doing when he had the 2 eventsbut he does not remember the symptoms. I do feel that it is highly likely his hypoxia and his bilateral pneumonias werethe reason for the elevation in the troponins in the face of someone with known coronary artery disease. However, he does have new global LV systolic dysfunction which may be related to ischemia or alternatively it may be related to his hypoxia and current pulmonary status. (2) Essential hypertension: PLAN: Patient's blood pressure is moderately elevated in the 165?170 systolic range. I would recommend that we add losartan to his medical regimen for both LV function as well as antihypertensive effect. If his blood pressure continuesto be elevated consideration should be given to adding spironolactone 25 mg daily to his medical regiment and monitor his potassium closely. (3) Aspiration pneumonia: QUALIFIERS: Aspiration pneumonia type: unspecified Laterality: bilateral Lung location: unspecifiedpart of lung Qualified Code(s): J69.0 - Pneumonitis due to inhalation of food and vomit PLAN: Treatment per the primary service. The patient does have relatively new elevation in his pulmonary artery pressures most likely secondary to this pneumonic process. His echocardiogram should berepeated after he completely recovers from his pneumonia and is back to baseline home oxygen supplementation. (4) History of TIA (transient ischemic attack): PLAN: Patient has been monitored to the [facility] by his report. He does have some memory deficits by his report. I did find an old report from 2016 where he had a greater than 70% left internal carotid artery stenosis. He does tell me he has had multiple TIAs/CVAs and has memory d eficitsas noted. I do not know and he does not know if this left carotid was ever intervened upon. (5) Coronary artery disease: QUALIFIERS: Coronary Disease-Associated Artery/Lesion type: bypassgraft [place] vs. transplanted heart: [place] heart Associated angina: without angina Qualified Code(s): I25.810 - Atherosclerosis of coronary artery bypass graft(s) without angina pectoris PLAN: Patient status post coronary bypass graft surgery in 1999 at [facility] receiving a three-vessel bypass we do not know the targets. His long-term evaluation and follow-up is been through the [facility] by his report. I do not find any record of him being seen in the [place] [facility] as an ambulatory patient. (6) LV dysfunction: PLAN: Patient's LV is globally depressed mildly with an EF of 45%. In 2022 his EF was 55 to 60% on echocardiogram. He does have some mild to moderate mitral and tricuspid regurgitation but this is unchanged over the last 2 years. PLAN: Plan 1. Recommend add losartan 50 mg every afternoon to his medical regimen. 2. Will continue with supportive therapy for his pulmonary status. 3. Once his pulmonary status is felt to be back to baseline would recommend repeating a limited echo to look at his pulmonary artery pressures and LV function in 6 weeks. 4. Will need to follow-up with his [facility] cardiology/cardiovascular services for his coronary artery disease as well as his carotid disease. HPI Consult Data Date of Consult: 11/08/24 HPI Narrative HPI Narrative: KAM GREENBERG, is a 74 M who presents with what appears to be aspiration pneumonia. Patient carries a history of multiple TIAs/CVAs as well as coronary artery disease. His primary cardiovascular care has been through the [facility]. Patient had an echocardiogram back in 2015 which showed a right ventricular systolic pressure of 23mmHg on the echo done today is up to 65. The patient has had multiple admissions for pneumonias in the interim. The patient is on home oxygen therapy. Since his admission he has been able to wean down somewhaton his oxygen he is now on 6 L but he still gets short of breath with activity. He gets short of breath with activity his home environment as well. His echocardiogram done on this admission showed normal LV size with an EF of 45% his previous echothe most recent one prior to this was in 2022 his EF was 55 to 60%. His right ventricle is normal the left atrium is mildly enlarged right atrium is normal. He has 2+ mitral regurgitation and 2+ tricuspid regurgitation which is really unchanged from 2022. Currently the patient is resting in her composition in bed. He denies any chestpains but he does report he has significant memory deficits he does not remembermuch but he does remember that Dr. Diop's Pavan and Dr. Elroy Batista took care of him at [facility] in 1999 when he had bypass surgery. He received a three-vessel bypass at that time. He does not know the targets. Thepatient is on metoprolol in his home environment. He is not on an ARB he has some type of reaction to lisinopril remotely. The patient has cut down his smoking to 3 to 4 cigarettes a day. Reports he has no desire to smoke unless heis around others that are smoking. [facility] Medical History COPD exacerbation Essential tremor Stage 3a chronic kidney disease (CKD) Diabetes mellitus, type 2 CAD (coronary artery disease) History of CVA (cerebrovascular accident) Tobacco use Hyperlipidemia COPD (chronic obstructive pulmonary disease) Hypertension Home Medications ?Medication ?Instructions ?Recorded ?Last Taken ?Type clopidogrel 75 mg tablet 75 mg PO DAILY Check with pr imary 03/24/16 Unknown History doctor metoprolol tartrate 50 mg tablet 50 mg PO BID Check wi primary 03/24/16 12/10/22 History doctor amlodipine 5 mg tablet 5 mg PO DAILY Check with daniella nona 12/11/22 12/10/22 History doctor sertraline 100 mg tablet 100 mg PO DAILY Check with p dasha 12/11/22 12/10/22 History doctor albuterol sulfate 2.5 mg/3 mL 2.5 mg (3 mL) inhalation Q2H PRN 12/17/22 12/10/22 Rx (0.083 %) solution for nebulization PRN shortness of b reath or wheezing #1 mL ipratropium 0.5 mg-albuterol 3 mg 3 ml inhalation 4X/D AY #120 mL 12/17/22 Unknown Rx (2.5 mg base)/3 mL nebulization soln albuterol sulfate 90 mcg/actuation 2 puff inhalation Q 4H PRN PRN 11/03/24 Unknown History aerosol inhaler wheezing atorvastatin 40 mg tablet 40 mg PO QHS 11/03/24 Unknow n History fluticasone fur. 100 mcg-umeclid 1 ea inhalation DAILY 11/03/24 Unknown History 62.5 mcg-vilant 25 mcg inhalat.powder (Trelegy Ellipta) fluticasone propionate 50 1 spray intranasal BID 11/03 Unknown History mcg/actuation nasal spray,suspension metformin 500 mg tablet 500 mg PO BID 11/03/24 Unkno wn History Allergy/AdvReac Type Severity Reaction Status Date / Time acetaminophen (From Tylenol) Allergy Unknown Verified 11/03/24 17:30 morphine Allergy Other Verified 11/03/24 17:30 oyster extract Allergy Unknown Verified 11/03/24 17:30 lisinopril AdvReac Other Verified 11/03/24 17:30 Family History Mother Cancer Brain cancer, unclear type. Son Cancer Youngest son, metastatic testicular cancer. Father Heart disease Hypertension CVA (cerebral vascular accident) Surgical History S/P appendectomy H/O right inguinal hernia repair S/P bilateral foot surgery S/P triple vessel bypass H/O heart artery stent Social History household members: spouse current occupational status: retired Smoking Status: Current every day smoker tobacco type: cigarettes how long ago did patient quit smoking: Smoked since 1967, up to 1 ppd, recent down to 1 pk/4-5 days. alcohol intake: current alcohol intake frequency: holidays/special occasions only substance use type: does not use ROS Constitutional Constitutional: Reports systems reviewed and no addt'l complaints, except as documented Eyes Eyes: Reports systems reviewed and no addt'l complaints, except as documented ENT HEENT: Reports systems reviewed and no addt'l complaints, except as documented Cardiovascular Cardiovascular: Reports as per HPI Respiratory/Chest Respiratory/Chest: Reports as per HPI Gastrointestinal Gastrointestinal: Reports systems reviewed and no addt'l complaints, except as documented Genitourinary Genitourinary: Reports systems reviewed and no addt'l complaints, except as documented Musculoskeletal Musculoskeletal: Reports systems reviewed and no addt'l complaints, except as documented Integumentary Integumentary: Reports systems reviewed and no addt'l complaints, except as documented Neurologic Neurologic: Reports as per HPI Psychiatric Psychiatric: Reports as per HPI Endocrine Endocrinology: Reports systems reviewed and no addt'l complaints, except as documented Hematologic/Lymphatic Hematologic/Lymphatic: Reports systems reviewed and no addt'l complaints, exceptas documented Allergic/Immunologic Allergic/Immunologic: Reports systems reviewed and no addt'l complaints, except as documented Physical Exam Const alert and oriented x3 HEENT normocephalic Eyes EOMs intact bilaterally Neck no JVD and no carotid bruits Chest Chest: midline sternotomy incision Cardio regular rate, regular rhythm, S1 normal heart sound, S2 normal heart sound, no rub and no gallops Heart Sounds: murmur systolic II/ blowing holo apex Extremity no pedal edema Psych mental status grossly normal Risk Stratification Risk Stratification Applicable: Yes Age >/= 65: Yes >/= 3 CAD Risk Factors (HTN, HLD, DM, family hx of CAD, or current smoker): Yes Aspirin Use in the Past 7 Days: No Severe Angina (>/= episodes in 24 hours): No EKG ST Changes >/= 0.5mm: No Positive Cardiac Marker: Yes AMBER Risk Stratification Score: 3 AMBER % Risk: 13% Risk Charges/Coding Visit Charges Inpatient E&M: 60874 Init Hosp L3 Objective Data Vital Signs: Vital Signs Temp Pulse Resp BP Pulse Ox O2 Del Method O2 Flow Rate 97.4 F L 83 20 H 169/86 H 94 Nasal Cannula 6 11/08/24 09:25 11/08/24 10:55 11/08/24 10:55 11/08/24 09:29 11/08/24 10:40 11/08/24 09:48 11/08/24 10:40 FiO2 37 11/04/24 22:00 Oxygen Flow Rate (L/min) 6 Oxygen Delivery Method Nasal Cannula Weight: 169 lb 1.513 oz Body Mass Index (BMI) 22.3 Intake & Output: Intake and Output for Last 24 Hours 11/06/24 11/07/24 11/08/24 23:59 23:59 23:59 Intake Total 390 / 390 270 / 270 340 / 340 Output Total 1100 / 1100 250 / 250 500 / 500 Balance -710 / -710 -160 / -160 Lab / Micro Data Attestation: I reviewed the patient's lab results. 11/08/24 04:01 11/08/24 04:01 Labs: Laboratory Results - last 24 hr 11/07/24 17:38: POC Glucose 170 H 11/07/24 23:41: POC Glucose 202 H 11/08/24 04:01: WBC 6.2, RBC 2.83 L, Hgb 9.2 L, Hct 29.2 L, MCV 103.2 H, MCH 32.5 H, MCHC 31.5 L, RDW Std Deviation 53.1 H, RDW Coeff of Christine 13.9, Plt Count 195, MPV 9.5, Immature Gran % (Auto) 0.300, Neut % (Auto) 79.2 H, Lymph % (Auto)14.7 L, [place] % (Auto) 5.6, Eos % (Auto) 0.0, Baso % (Auto) 0.2, Absolute Neuts (auto) 4.9, Absolute Lymphs (auto) 0.92, Nucleated RBC % 0, Sodium 141, Potassium 4.8, Chloride 101, Carbon Dioxide 30.1, Anion Gap 10, BUN 38 H, Creatinine 1.51 H, Estim Creat Clear Calc 47.27 L, Est GFR (MDRD) Non-Af 48 L, BUN/Creatinine Ratio 25.1 H, Glucose 207 H, Calcium 8.7 11/08/24 06:02: POC Glucose 179 H 11/08/24 11:35: POC Glucose 264 H Rhythm Strip Rhythm Strip: Sinus Rhythm Rate: 85 Cardiology Labs/Tests 11/08/24 04:01: WBC 6.2, RBC 2.83 L, Hgb 9.2 L, Hct 29.2 L, MCV 103.2 H, MCH 32.5 H, MCHC 31.5 L, Plt Count 195, MPV 9.5, Immature Gran % (Auto) 0.300, Neut % (Auto) 79.2 H, Lymph % (Auto) 14.7 L, [place] % (Auto) 5.6, Eos % (Auto) 0.0, Baso % (Auto) 0.2, Absolute Neuts (auto) 4.9, Nucleated RBC % 0, Sodium 141, Potassium 4.8, Chloride 101, Carbon Dioxide 30.1, Anion Gap 10, BUN 38 H, Creatinine 1.51 H, Est GFR (MDRD) Non-Af 48 L, BUN/Creatinine Ratio 25.1 H, Glucose 207 H, Calcium 8.7 Rhythm: EKG: ECHO: Stress Test: Cardiac Cath: PCI: CT Surgery: Holter monitor: EPS: PPM: CXR: Chest CT Scan: 11/08/24 1326 Cosigner Signature (if applicable): CC: Dr. Royce Carroll MD~ Signed [facility]04-13-2025 Progress note Author Anabell Hinkle [facility] Note Date/Time November 07, 2024 4:2 2pm [facility] Medical Records Department [address] [place] [address] Progress Note - Hospitalist 11/07/2403 MR#: [id number] Acct: [id number] Name: KAM GREENBERG Rep #:[id number] : 1950 74 From: Anabell Hinkle MD PCP: Dr. Royce Carroll MD Status:A DM IN Location: [place] [address] Reason for Visit Reason for Visit: Diagnoses Nutritional anemia, unspecified (11/03/24) Type 2 diabetes mellitus without complications (11/03/24) Essential (primary) hypertension (11/03/24) Chronic obstructive pulmonary disease with (acute) exacerbation (11/03/24) Pneumonitis due to inhalation of food and vomit (11/03/24) Other abnormalities of breathing (11/03/24) Chest pain, unspecified (11/03/24) Other specified abnormal findings of blood chemistry (11/03/24) Subjective Subjective Breathing improving especially at rest but still having significant struggles with movement, patient mostly thirsty and focusing on eating, Objective Data Objective Data Vital Signs: Vital Signs Temp Pulse Resp BP Pulse Ox O2 Del Method O2 Flow Rate 97.3 F L 96 20 H 164/73 H 92 Nasal Cannula 4 11/07/24 08:15 11/07/24 08:15 11/07/24 08:15 11/07/24 08:15 11/07/24 08:15 11/07/24 08:15 11/07/24 08:15 FiO2 37 11/04/24 22:00 Oxygen Flow Rate (L/min) 4 Oxygen Delivery Method Nasal Cannula Weight: 77.7 kg Body Mass Index (BMI) 22.6 Intake & Output: Intake and Output for Last 24 Hours 11/05/24 11/06/24 11/07/24 23:59 23:59 23:59 Intake Total 150 / 270 390 / 390 50 / 50 Output Total 1100 / 1100 250 / 250 Balance 150 / 20 -710 / -710 -200 / -200 Lab / Micro Data 11/07/24 05:15 11/07/24 05:15 Labs: Laboratory Results - last 24 hr 11/06/24 11:21: POC Glucose 196 H 11/06/24 17:17: POC Glucose 193 H 11/07/24 00:01: POC Glucose 189 H 11/07/24 05:15: WBC 7.4, RBC 2.70 L, Hgb 8.8 L, Hct 27.9 L, MCV 103.3 H, MCH 32.6 H, MCHC 31.5 L, RDW Std Deviation 53.1 H, RDW Coeff of Christine 13.9, Plt Count 208, MPV 9.9, Immature Gran % (Auto) 0.400, Neut % (Auto) 78.0 H, Lymph % (Auto)14.8 L, [place] % (Auto) 6.8, Eos % (Auto) 0.0, Baso % (Auto) 0.0, Absolute Neuts (auto) 5.7, Absolute Lymphs (auto) 1.09, Nucleated RBC % 0.3, Sodium 143, Potassium 4.6, Chloride 103, Carbon Dioxide 27.8, Anion Gap 13, BUN 38 H, Creatinine 1.56 H, Estim Creat Clear Calc 46.35 L, Est GFR (MDRD) Non-Af 47 L, BUN/Creatinine Ratio 24.4 H, Glucose 177 H, Calcium 8.6 11/07/24 05:46: POC Glucose 173 H Micro: Microbiology 11/04/24 16:00 Mucosa - Nasopharyngeal Respiratory Panel (PCR) - Final 11/04/24 19:08 Urine, Clean Catch Legionella Antigen - Final 11/04/24 19:08 Urine, Clean Catch Streptococcus pneumoniae Antigen (M - Final 11/03/24 18:55 Mucosa - Nose SARS-CoV-2, Influenza & RSV (PCR) - Final Physical Exam Narrative General: Alert, oriented HEENT: Atraumatic, normocephalic, does have dry tongue Eyes: Anicteric, normal conjunctiva, extraocular movements grossly intact Neck: Supple Respiratory: Wheezing improving, respiratory status slightly less labored but 1 talking does still have conversational dyspnea Cardiovascular: Regular rate and rhythm GI: Soft, nontender, nondistended Extremities: No edema Musculoskeletal: Moving all extremities Neuro: No overt focal neurological deficits Skin: No rashes appreciated Psych: Cooperative Assessment & Plan Assessment/Plan (1) Aspiration pneumonia: QUALIFIERS: Aspiration pneumonia type: unspecified Laterality: bilateral Lung location: unspecified part of lung Qualified Code(s): J69.0 - Pneumonitis due to inhalation of food and vomit (2) COPD exacerbation: PLAN: Plan # Acute hypoxic respiratory failure on chronic hypoxic respiratory failure on home O2 secondary to acute exacerbation of COPD and suspected component of aspiration pneumonia -Admit to floor, continuous O2 monitoring -Imaging: Chest x-ray with findings concerning for pneumonia -DuoNebs and as needed albuterol -Sputum culture, COVID negative, respiratory panel ordered -Urine antigens -Mucinex, I/S -Given concern for aspiration PNA patient placed on Zosyn -O2 in place, wean as tolerated -IV methylprednisone -Speech consult -11/05: Patient 93% on 4 L high flow but is steadily improving, initially viral swab came back with several pathogens however re-reporting reported it as negative, in light of this we will continue Zosyn, nebs, steroids. Patient is still n.p.o. as he had a coughing spell senior living through his MBSS, no aspiration,however it dropped him to 81% and he was tachypneic and it took 5 minutes and increased O2 to recover, bedside attempts will be retrialed tomorrow if respiratory status is stable -11/06: Continues to improve, patient on Zosyn, awaiting further swallow evaluation -11/07: Patient is on his home 4 L nasal cannula saturating at 92% but still significantly short of breath on exertion and when trying to eat, patient keep working with PT and speech therapy # Global hypokinesis of left ventricle/stage I diastolic dysfunction/moderate pulmonary hypertension - Patient's echocardiogram revealed EF of 45% with mild to moderate global hypokinesis of left ventricle, stage I diastolic dysfunction and PASP of 65 withmoderate pulmonary hypertension - Patient received IV fluids on presentation, suspect that this may be contributing to his shortness of breath and difficulty weaning O2 given the global hypokinesis, diastolic dysfunction, and PASP so we will give a dose of Lasix -11/05: Patient given one-time dose of Lasix yesterday, monitoring I's and O's and daily weights -11/06: Patient is down in weight, given lack of p.o. intake and improvement in respiratory status and decreasing weight will hold off on further empiric Lasix for now, may need to add these back pending respiratory status and oral intake -11/07: Continues to slowly improve overall, continue to monitor respiratory status, still very slow to improve with eating and ambulation may need to consider a repeat chest x-ray and/or BMP, at this time patient appears slightly volume depleted and not overloaded, likely due to n.p.o. while working with speech therapy due to concerns for aspiration Chronic medical problems and/or problems not being actively addressed during today's encounter: # History of coronary artery disease with - Previous stenting and CABG - Continue home Plavix and statin - Continue home beta-kaushik #Type 2 diabetes mellitus -Glucose checks and sliding scale insulin -Patient n.p.o. pending speech evaluation #Hypertension - Patient's home metoprolol and amlodipine continued #GERD -Continue PPI #Depression/anxiety -Continue home medications # Elevated troponin - Suspect this is due to patient's respiratory distress and hypoxia necessitating BiPAP - Troponins are elevated at 131, increased to 139, subsequently decreased to 133, again suspect this is breathing related and do not suspect a type I event - Continue Plavix, beta-kaushik, statin -11/05: No chest pain, do not suspect that this is ACS in nature #DVT ppx: Heparin subcu Anabell Hinkle MD Time spent in the patient's overall evaluation,decision-making process, review of diagnostic data, adjustment of management, discussion with other providers, nursing nursing and ancillary staff involved in patient's care documentation, 36Minutes Charges/Coding Visit Charges Inpatient E&M: 50867 Subs Hosp L2 11/07/24 4778 <Electronically signed by Anabell Hinkle MD> Cosigner Signature (if applicable): CC: ~ Signed [facility] Work Phone: 1(494) 851-237104-13-2025 Progress note [facility] Medical Records Department [address] [place] [address] Progress Note - Hospitalist 11/07/24902 MR#: [id number] Acct: [id number] Name: KAM GREENBERG Rep #:[id number] : 1950 74 From: Anabell Hinkle MD PCP: Dr. Royce Carroll MD Status:A DM IN Location: [place] [address] Reason for Visit Reason for Visit: Diagnoses Nutritional anemia, unspecified (11/03/24) Type 2 diabetes mellitus without complications (11/03/24) Essential (primary) hypertension (11/03/24) Chronic obstructive pulmonary disease with (acute) exacerbation (11/03/24) Pneumonitis due to inhalation of food and vomit (11/03/24) Other abnormalities of breathing (11/03/24) Chest pain, unspecified (11/03/24) Other specified abnormal findings of blood chemistry (11/03/24) Subjective Subjective Breathing improving especially at rest but still having significant struggles with movement, patient mostly thirsty and focusing on eating, Objective Data Objective Data Vital Signs: Vital Signs Temp Pulse Resp BP Pulse Ox O2 Del Method O2 Flow Rate 97.3 F L 96 20 H 164/73 H 92 Nasal Cannula 4 11/07/24 08:15 11/07/24 08:15 11/07/24 08:15 11/07/24 08:15 11/07/24 08:15 11/07/24 08:15 11/07/24 08:15 FiO2 37 11/04/24 22:00 Oxygen Flow Rate (L/min) 4 Oxygen Delivery Method Nasal Cannula Weight: 77.7 kg Body Mass Index (BMI) 22.6 Intake & Output: Intake and Output for Last 24 Hours 11/05/24 11/06/24 11/07/24 23:59 23:59 23:59 Intake Total 150 / 270 390 / 390 50 / 50 Output Total 1100 / 1100 250 / 250 Balance 150 / 20 -710 / -710 -200 / -200 Lab / Micro Data 11/07/24 05:15 11/07/24 05:15 Labs: Laboratory Results - last 24 hr 11/06/24 11:21: POC Glucose 196 H 11/06/24 17:17: POC Glucose 193 H 11/07/24 00:01: POC Glucose 189 H 11/07/24 05:15: WBC 7.4, RBC 2.70 L, Hgb 8.8 L, Hct 27.9 L, MCV 103.3 H, MCH 32.6 H, MCHC 31.5 L, RDW Std Deviation 53.1 H, RDW Coeff of Christine 13.9, Plt Count 208, MPV 9.9, Immature Gran % (Auto) 0.400, Neut % (Auto) 78.0 H, Lymph % (Auto)14.8 L, App[place] % (Auto) 6.8, Eos % (Auto) 0.0, Baso % (Auto) 0.0, Absolute Neuts (auto) 5.7, Absolute Lymphs (auto) 1.09, Nucleated RBC % 0.3, Sodium 143, Potassium4.6, Chloride 103, Carbon Dioxide 27.8, Anion Gap 13, BUN 38 H, Creatinine 1.56 H, Estim Creat Clear Calc 46.35 L, Est GFR (MDRD) Non-Af 47 L, BUN/Creatinine Ratio 24.4 H, Glucose 177 H, Calcium 8.6 11/07/24 05:46: POC Glucose 173 H Micro: Microbiology 11/04/24 16:00 Mucosa - Nasopharyngeal Respiratory Panel (PCR) - Final 11/04/24 19:08 Urine, Clean Catch Legionella Antigen - Final 11/04/24 19:08 Urine, Clean Catch Streptococcus pneumoniae Antigen (M - Final 11/03/24 18:55 Mucosa - Nose SARS-CoV-2, Influenza & RSV (PCR) - Final Physical Exam Narrative General: Alert, oriented HEENT: Atraumatic, normocephalic, does have dry tongue Eyes: Anicteric, normal conjunctiva, extraocular movements grossly intact Neck: Supple Respiratory: Wheezing improving, respiratory status slightly less labored but 1 talking does still have conversational dyspnea Cardiovascular: Regular rate and rhythm GI: Soft, nontender, nondistended Extremities: No edema Musculoskeletal: Moving all extremities Neuro: No overt focal neurological deficits Skin: No rashes appreciated Psych: Cooperative Assessment & Plan Assessment/Plan (1) Aspiration pneumonia: QUALIFIERS: Aspiration pneumonia type: unspecified Laterality: bilateral Lung location: unspecifiedpart of lung Qualified Code(s): J69.0 - Pneumonitis due to inhalation of food and vomit (2) COPD exacerbation: PLAN: Plan # Acute hypoxic respiratory failure on chronic hypoxic respiratory failure on home O2 secondary to acute exacerbation of COPD and suspected component of aspiration pneumonia -Admit to floor, continuous O2 monitoring -Imaging: Chest x-ray with findings concerning for pneumonia -DuoNebs and as needed albuterol -Sputum culture, COVID negative, respiratory panel ordered -Urine antigens -Mucinex, I/S -Given concern for aspiration PNA patient placed on Zosyn -O2 in place, wean as tolerated -IV methylprednisone -Speech consult -11/05: Patient 93% on 4 L high flow but is steadily improving, initially viral swab came back with several pathogens however re-reporting reported it as negative, in light of this we will continue Zosyn, nebs, steroids. Patient is still n.p.o. as he had a coughing spell senior living through his MBSS, no aspiration,however it dropped him to 81% and he was tachypneic and it took 5 minutes and increased O2 to recover, bedside attempts will be retrialed tomorrow if respiratory status is stable -11/06: Continues to improve, patient on Zosyn, awaiting further swallow evaluation -11/07: Patient is on his home 4 L nasal cannula saturating at 92% but still significantly short of breath on exertion and when trying to eat, patient keep working with PT and speech therapy # Global hypokinesis of left ventricle/stage I diastolic dysfunction/moderate pulmonary hypertension - Patient's echocardiogram revealed EF of 45% with mild to moderate global hypokinesis of left ventricle, stage I diastolic dysfunction and PASP of 65 withmoderate pulmonary hypertension - Patient received IV fluids on presentation, suspect that this may be contributing to his shortness of breath and difficulty weaning O2 given the global hypokinesis, diastolic dysfunction, and PASP so we will give a dose of Lasix -11/05: Patient given one-time dose of Lasix yesterday, monitoring I's and O's and daily weights -11/06: Patient is down in weight, given lack of p.o. intake and improvement in respiratory status and decreasing weight will hold off on further empiric Lasix for now, may need to add these back pending respiratory status and oral intake -11/07: Continues to slowly improve overall, continue to monitor respiratory status, still very slowto improve with eating and ambulation may need to consider a repeat chest x-ray and/or BMP, at thistime patient appears slightly volume depleted and not overloaded, likely due to n.p.o. while working with speech therapy due to concerns for aspiration Chronic medical problems and/or problems not being actively addressed during today's encounter: # History of coronary artery disease with - Previous stenting and CABG - Continue home Plavix and statin - Continue home beta-kaushik #Type 2 diabetes mellitus -Glucose checks and sliding scale insulin -Patient n.p.o. pending speech evaluation #Hypertension - Patient's home metoprolol and amlodipine continued #GERD -Continue PPI #Depression/anxiety -Continue home medications # Elevated troponin - Suspect this is due to patient's respiratory distress and hypoxia necessitating BiPAP - Troponins are elevated at 131, increased to 139, subsequently decreased to 133, again suspect this is breathing related and do not suspect a type I event - Continue Plavix, beta-kaushik, statin -11/05: No chest pain, do not suspect that this is ACS in nature #DVT ppx: Heparin subcu Anabell Hinkle MD Time spent in the patient's overall evaluation,decision-making process, review of diagnostic data, adjustment of management, discussion with other providers, nursing nursing and ancillary staff involved in patient's care documentation, 36Minutes Charges/Coding Visit Charges Inpatient E&M: 54516 Subs Hosp L2 11/07/24 1622 Cosigner Signature (if applicable): CC: ~ Signed [facility]04-12-2025 Progress note Author Anabell Hinkle [facility] Note Date/Time November 06, 2024 5:2 3pm [facility] Medical Records Department [address] [place] [address] Progress Note - Hospitalist 11/06/24 0931 MR#: [id number] Acct: [id number] Name: KAM GREENBERG Rep #:[id number] : 1950 74 From: Anabell Hinkle MD PCP: Dr. Royce Carroll MD Status:A DM IN Location: [place] [address] Reason for Visit Reason for Visit: Diagnoses Nutritional anemia, unspecified (11/03/24) Type 2 diabetes mellitus without complications (11/03/24) Essential (primary) hypertension (11/03/24) Chronic obstructive pulmonary disease with (acute) exacerbation (11/03/24) Pneumonitis due to inhalation of food and vomit (11/03/24) Other abnormalities of breathing (11/03/24) Chest pain, unspecified (11/03/24) Other specified abnormal findings of blood chemistry (11/03/24) Subjective Subjective Patient sitting up in bed, still feeling better than he had but still short of breath and tachypneic, patient anxious to be able to eat food again Objective Data Objective Data Vital Signs: Vital Signs Temp Pulse Resp BP Pulse Ox O2 Del Method O2 Flow Rate 98.2 F 89 22 H 145/69 H 100 Nasal Cannula 5 11/06/24 03:45 11/06/24 03:45 11/06/24 03:45 11/06/24 03:45 11/06/24 06:55 11/06/24 06:55 11/06/24 06:55 FiO2 37 11/04/24 22:00 Oxygen Flow Rate (L/min) 5 Oxygen Delivery Method Nasal Cannula Weight: 77.9 kg Body Mass Index (BMI) 22.6 Intake & Output: Intake and Output for Last 24 Hours 11/04/24 11/05/24 11/06/24 23:59 23:59 23:59 Intake Total 1434.17 / 1434.17 150 / 270 170 / 170 Output Total 960 / 960 250 / 250 Balance 474.17 / 474.17 150 / 20 -80 / -80 Lab / Micro Data 11/06/24 05:19 11/06/24 05:19 Labs: Laboratory Results - last 24 hr 11/05/24 11:57: POC Glucose 176 H 11/05/24 17:28: POC Glucose 160 H 11/05/24 23:59: POC Glucose 202 H 11/06/24 05:19: WBC 8.2, RBC 2.65 L, Hgb 8.8 L, Hct 27.3 L, MCV 103.0 H, MCH 33.2 H, MCHC 32.2, RDW Std Deviation 53.4 H, RDW Coeff of Christine 14.2, Plt Count 205, MPV 10.1, Immature Gran % (Auto) 0.200, Neut % (Auto) 82.3 H, Lymph % (Auto) 11.0 L, Appling % (Auto) 6.5, Eos % (Auto) 0.0, Baso % (Auto) 0.0, Absolute Neuts (auto) 6.7, Absolute Lymphs (auto) 0.90, Nucleated RBC % 0, Sodium 143, Potassium 4.1, Chloride 101, Carbon Dioxide 28.8, Anion Gap 13, BUN 36 H, Creatinine 1.58 H, Estim Creat Clear Calc 45.88 L, Est GFR (MDRD) Non-Af 46 L, BUN/Creatinine Ratio 22.9 H, Glucose 183 H, Calcium 8.6 11/06/24 05:25: POC Glucose 174 H Micro: Microbiology 11/04/24 16:00 Mucosa - Nasopharyngeal Respiratory Panel (PCR) - Final 11/04/24 19:08 Urine, Clean Catch Legionella Antigen - Final 11/04/24 19:08 Urine, Clean Catch Streptococcus pneumoniae Antigen (M - Final 11/03/24 18:55 Mucosa - Nose SARS-CoV-2, Influenza & RSV (PCR) - Final Physical Exam Narrative General: Alert, oriented HEENT: Atraumatic, normocephalic Eyes: Anicteric, normal conjunctiva, extraocular movements grossly intact Neck: Supple Respiratory: Scattered wheezes, still somewhat tachypneic but is improved slightly with better airflow overall Cardiovascular: Regular rate and rhythm GI: Soft, nontender, nondistended Extremities: No edema Musculoskeletal: Moving all extremities Neuro: No overt focal neurological deficits Skin: No rashes appreciated Psych: Cooperative Assessment & Plan Assessment/Plan (1) Aspiration pneumonia: QUALIFIERS: Aspiration pneumonia type: unspecified Laterality: bilateral Lung location: unspecified part of lung Qualified Code(s): J69.0 - Pneumonitis due to inhalation of food and vomit (2) COPD exacerbation: PLAN: Plan # Acute hypoxic respiratory failure on chronic hypoxic respiratory failure on home O2 secondary to acute exacerbation of COPD and suspected component of aspiration pneumonia -Admit to floor, continuous O2 monitoring -Imaging: Chest x-ray with findings concerning for pneumonia -DuoNebs and as needed albuterol -Sputum culture, COVID negative, respiratory panel ordered -Urine antigens -Mucinex, I/S -Given concern for aspiration PNA patient placed on Zosyn -O2 in place, wean as tolerated -IV methylprednisone -Speech consult -11/05: Patient 93% on 4 L high flow but is steadily improving, initially viral swab came back with several pathogens however re-reporting reported it as negative, in light of this we will continue Zosyn, nebs, steroids. Patient is still n.p.o. as he had a coughing spell senior living through his MBSS, no aspiration,however it dropped him to 81% and he was tachypneic and it took 5 minutes and increased O2 to recover, bedside attempts will be retrialed tomorrow if respiratory status is stable -11/06: Continues to improve, patient on Zosyn, awaiting further swallow evaluation # Global hypokinesis of left ventricle/stage I diastolic dysfunction/moderate pulmonary hypertension - Patient's echocardiogram revealed EF of 45% with mild to moderate global hypokinesis of left ventricle, stage I diastolic dysfunction and PASP of 65 withmoderate pulmonary hypertension - Patient received IV fluids on presentation, suspect that this may be contributing to his shortness of breath and difficulty weaning O2 given the global hypokinesis, diastolic dysfunction, and PASP so we will give a dose of Lasix -11/05: Patient given one-time dose of Lasix yesterday, monitoring I's and O's and daily weights -11/06: Patient is down in weight, given lack of p.o. intake and improvement in respiratory status and decreasing weight will hold off on further empiric Lasix for now, may need to add these back pending respiratory status and oral intake Chronic medical problems and/or problems not being actively addressed during today's encounter: # History of coronary artery disease with - Previous stenting and CABG - Continue home Plavix and statin - Continue home beta-kaushik #Type 2 diabetes mellitus -Glucose checks and sliding scale insulin -Patient n.p.o. pending speech evaluation #Hypertension - Patient's home metoprolol and amlodipine continued #GERD -Continue PPI #Depression/anxiety -Continue home medications # Elevated troponin - Suspect this is due to patient's respiratory distress and hypoxia necessitating BiPAP - Troponins are elevated at 131, increased to 139, subsequently decreased to 133, again suspect this is breathing related and do not suspect a type I event - Continue Plavix, beta-kaushik, statin -11/05: No chest pain, do not suspect that this is ACS in nature #DVT ppx: Heparin subcu Anabell Hinkle MD Time spent in the patient's overall evaluation,decision-making process, review of diagnostic data, adjustment of management, discussion with other providers, nursing nursing and ancillary staff involved in patient's care documentation, 37Minutes 11/06/24 1723 <Electronically signed by Anabell Hinkle MD> Cosigner Signature (if applicable): CC: ~ Signed [facility] Work Phone: [phone]) 944-780604-12-2025 Progress note [facility] Medical Records Department [address] [place] [address] Progress Note - Hospitalist 11/06/24 0931 MR#: [id number] Acct: [id number] Name: KAM GREENBERG Rep #:[id number] : 1950 74 From: Anabell Hinkle MD PCP: Dr. Royce Carroll MD Status:A DM IN Location: [place] [address] Reason for Visit Reason for Visit: Diagnoses Nutritional anemia, unspecified (11/03/24) Type 2 diabetes mellitus without complications (11/03/24) Essential (primary) hypertension (11/03/24) Chronic obstructive pulmonary disease with (acute) exacerbation (11/03/24) Pneumonitis due to inhalation of food and vomit (11/03/24) Other abnormalities of breathing (11/03/24) Chest pain, unspecified (11/03/24) Other specified abnormal findings of blood chemistry (11/03/24) Subjective Subjective Patient sitting up in bed, still feeling better than he had but still short of breath and tachypneic, patient anxious to be able to eat food again Objective Data Objective Data Vital Signs: Vital Signs Temp Pulse Resp BP Pulse Ox O2 Del Method O2 Flow Rate 98.2 F 89 22 H 145/69 H 100 Nasal Cannula 5 11/06/24 03:45 11/06/24 03:45 11/06/24 03:45 11/06/24 03:45 11/06/24 06:55 11/06/24 06:55 11/06/24 06:55 FiO2 37 11/04/24 22:00 Oxygen Flow Rate (L/min) 5 Oxygen Delivery Method Nasal Cannula Weight: 77.9 kg Body Mass Index (BMI) 22.6 Intake & Output: Intake and Output for Last 24 Hours 11/04/24 11/05/24 11/06/24 23:59 23:59 23:59 Intake Total 1434.17 / 1434.17 150 / 270 170 / 170 Output Total 960 / 960 250 / 250 Balance 474.17 / 474.17 150 / 20 -80 / -80 Lab / Micro Data 11/06/24 05:19 11/06/24 05:19 Labs: Laboratory Results - last 24 hr 11/05/24 11:57: POC Glucose 176 H 11/05/24 17:28: POC Glucose 160 H 11/05/24 23:59: POC Glucose 202 H 11/06/24 05:19: WBC 8.2, RBC 2.65 L, Hgb 8.8 L, Hct 27.3 L, MCV 103.0 H, MCH 33.2 H, MCHC 32.2, RDWStd Deviation 53.4 H, RDW Coeff of Christine 14.2, Plt Count 205, MPV 10.1, Immature Gran % (Auto) 0.200,Neut % (Auto) 82.3 H, Lymph % (Auto) 11.0 L, Appling % (Auto) 6.5, Eos % (Auto) 0.0, Baso % (Auto) 0.0, Absolute Neuts (auto) 6.7, Absolute Lymphs (auto) 0.90, Nucleated RBC % 0, Sodium 143, Potassium 4.1, Chloride 101, Carbon Dioxide 28.8, Anion Gap 13, BUN 36 H, Creatinine 1.58 H, Estim Creat Clear Calc 45.88 L, Est GFR (MDRD) Non-Af 46 L, BUN/Creatinine Ratio 22.9 H, Glucose 183 H, Calcium 8.6 11/06/24 05:25: POC Glucose 174 H Micro: Microbiology 11/04/24 16:00 Mucosa - Nasopharyngeal Respiratory Panel (PCR) - Final 11/04/24 19:08 Urine, Clean Catch Legionella Antigen - Final 11/04/24 19:08 Urine, Clean Catch Streptococcus pneumoniae Antigen (M - Final 11/03/24 18:55 Mucosa - Nose SARS-CoV-2, Influenza & RSV (PCR) - Final Physical Exam Narrative General: Alert, oriented HEENT: Atraumatic, normocephalic Eyes: Anicteric, normal conjunctiva, extraocular movements grossly intact Neck: Supple Respiratory: Scattered wheezes, still somewhat tachypneic but is improved slightly with better airflow overall Cardiovascular: Regular rate and rhythm GI: Soft, nontender, nondistended Extremities: No edema Musculoskeletal: Moving all extremities Neuro: No overt focal neurological deficits Skin: No rashes appreciated Psych: Cooperative Assessment & Plan Assessment/Plan (1) Aspiration pneumonia: QUALIFIERS: Aspiration pneumonia type: unspecified Laterality: bilateral Lung location: unspecifiedpart of lung Qualified Code(s): J69.0 - Pneumonitis due to inhalation of food and vomit (2) COPD exacerbation: PLAN: Plan # Acute hypoxic respiratory failure on chronic hypoxic respiratory failure on home O2 secondary to acute exacerbation of COPD and suspected component of aspiration pneumonia -Admit to floor, continuous O2 monitoring -Imaging: Chest x-ray with findings concerning for pneumonia -DuoNebs and as needed albuterol -Sputum culture, COVID negative, respiratory panel ordered -Urine antigens -Mucinex, I/S -Given concern for aspiration PNA patient placed on Zosyn -O2 in place, wean as tolerated -IV methylprednisone -Speech consult -11/05: Patient 93% on 4 L high flow but is steadily improving, initially viral swab came back with several pathogens however re-reporting reported it as negative, in light of this we will continue Zosyn, nebs, steroids. Patient is still n.p.o. as he had a coughing spell senior living through his MBSS, no aspiration,however it dropped him to 81% and he was tachypneic and it took 5 minutes and increased O2 to recover, bedside attempts will be retrialed tomorrow if respiratory status is stable -11/06: Continues to improve, patient on Zosyn, awaiting further swallow evaluation # Global hypokinesis of left ventricle/stage I diastolic dysfunction/moderate pulmonary hypertension - Patient's echocardiogram revealed EF of 45% with mild to moderate global hypokinesis of left ventricle, stage I diastolic dysfunction and PASP of 65 withmoderate pulmonary hypertension - Patient received IV fluids on presentation, suspect that this may be contributing to his shortness of breath and difficulty weaning O2 given the global hypokinesis, diastolic dysfunction, and PASP so we will give a dose of Lasix -11/05: Patient given one-time dose of Lasix yesterday, monitoring I's and O's and daily weights -11/06: Patient is down in weight, given lack of p.o. intake and improvement in respiratory status and decreasing weight will hold off on further empiric Lasix for now, may need to add these back pending respiratory status and oral intake Chronic medical problems and/or problems not being actively addressed during today's encounter: # History of coronary artery disease with - Previous stenting and CABG - Continue home Plavix and statin - Continue home beta-kaushik #Type 2 diabetes mellitus -Glucose checks and sliding scale insulin -Patient n.p.o. pending speech evaluation #Hypertension - Patient's home metoprolol and amlodipine continued #GERD -Continue PPI #Depression/anxiety -Continue home medications # Elevated troponin - Suspect this is due to patient's respiratory distress and hypoxia necessitating BiPAP - Troponins are elevated at 131, increased to 139, subsequently decreased to 133, again suspect this is breathing related and do not suspect a type I event - Continue Plavix, beta-kaushik, statin -11/05: No chest pain, do not suspect that this is ACS in nature #DVT ppx: Heparin subcu Anabell Hinkle MD Time spent in the patient's overall evaluation,decision-making process, review of diagnostic data, adjustment of management, discussion with other providers, nursing nursing and ancillary staff involved in patient's care documentation, 37Minutes 11/06/24 1723 Cosigner Signature (if applicable): CC: ~ Signed [facility]04-11-2025 Progress note Author Anabell Hinkle [facility] Note Date/Time November 05, 2024 2:0 7pm [facility] Medical Records Department [address] [place] [id number] Progress Note - Hospitalist 11/05/24 1354 MR#: [id number] Acct: [id number] Name: KAM GREENBERG J Rep #:[id number] : 1950 74 From: Anabell Hinkle MD PCP: Dr. Royce Carroll MD Status:A DM IN Location: [place] [id number] Reason for Visit Reason for Visit: Diagnoses Nutritional anemia, unspecified (11/03/24) Type 2 diabetes mellitus without complications (11/03/24) Essential (primary) hypertension (11/03/24) Chronic obstructive pulmonary disease with (acute) exacerbation (11/03/24) Pneumonitis due to inhalation of food and vomit (11/03/24) Other abnormalities of breathing (11/03/24) Chest pain, unspecified (11/03/24) Other specified abnormal findings of blood chemistry (11/03/24) Subjective Subjective Patient reports feeling a little bit better today, still significantly short of breath and requiring O2 but better than yesterday Objective Data Objective Data Vital Signs: Vital Signs Temp Pulse Resp BP Pulse Ox O2 Del Method O2 Flow Rate 98.3 F 102 H 34 H 154/73 H 93 High Flow 4 11/05/24 12:00 11/05/24 12:00 11/05/24 12:00 11/05/24 12:00 11/05/24 12:01 11/05/24 12:00 11/05/24 12:01 FiO2 37 11/04/24 22:00 Oxygen Flow Rate (L/min) 4 Oxygen Delivery Method High Flow Weight: 81.7 kg Body Mass Index (BMI) 23.7 Intake & Output: Intake and Output for Last 24 Hours 11/03/24 11/04/24 11/05/24 23:59 23:59 23:59 Intake Total 55.83 / 55.83 1434.17 / 1434.17 100 / 100 Output Total 960 / 960 Balance 55.83 / 55.83 474.17 / 474.17 100 / 100 Lab / Micro Data 11/05/24 05:33 11/05/24 05:33 Labs: Laboratory Results - last 24 hr 11/04/24 15:49: Sodium 137, Potassium 5.5 H, Chloride 100, Carbon Dioxide 26.0, Anion Gap 11, BUN 32 H, Creatinine 1.51 H, Estim Creat Clear Calc 49.24 L, Est GFR (MDRD) Non-Af 48 L, BUN/Creatinine Ratio 21.3 H, Glucose 209 H, Calcium 8.7 11/04/24 17:02: POC Glucose 184 H 11/05/24 00:24: POC Glucose 192 H 11/05/24 05:33: WBC 7.2, RBC 2.64 L, Hgb 8.7 L, Hct 27.1 L, MCV 102.7 H, MCH 33.0 H, MCHC 32.1, RDW Std Deviation 52.8 H, RDW Coeff of Christine 14.0, Plt Count 188, MPV 9.8, Immature Gran % (Auto) 0.300, Neut % (Auto) 80.7 H, Lymph % (Auto)11.1 L, Appling % (Auto) 7.9, Eos % (Auto) 0.0, Baso % (Auto) 0.0, Absolute Neuts (auto) 5.8, Absolute Lymphs (auto) 0.80 L, Nucleated RBC % 0, Sodium 142, Potassium 4.4, Chloride 102, Carbon Dioxide 27.9, Anion Gap 12, BUN 36 H, Creatinine 1.63 H, Estim Creat Clear Calc 45.61 L, Est GFR (MDRD) Non-Af 44 L, BUN/Creatinine Ratio 21.8 H, Glucose 187 H, Calcium 8.4, Phosphorus 4.8 H 11/05/24 05:41: POC Glucose 191 H 11/05/24 11:57: POC Glucose 176 H Micro: Microbiology 11/04/24 16:00 Mucosa - Nasopharyngeal Respiratory Panel (PCR) - Final 11/04/24 19:08 Urine, Clean Catch Legionella Antigen - Final 11/04/24 19:08 Urine, Clean Catch Streptococcus pneumoniae Antigen (M - Final 11/03/24 18:55 Mucosa - Nose SARS-CoV-2, Influenza & RSV (PCR) - Final Radiography Diagnostic Testing: Radiology Impression Echocardiogram 11/04/24 01:51 Interpretation Summary Normal LV size. The left ventricular ejection fraction is 45 %. There is mild to moderate global hypokinesis of the left ventricle. Stage 1 diastolic dysfunction. Pulmonary artery systolic pressure is 65 mmHg. The left atrium is mildly enlarged. Moderate pulmonary hypertension. Contrast injection was performed. Ordering Physician: Kam Rogers Referring Physician: Royce Carroll M.D. Performed By: Kiara Velasquez RDCS Physical Exam Narrative General: Alert, oriented HEENT: Atraumatic, normocephalic Eyes: Anicteric, normal conjunctiva, extraocular movements grossly intact Neck: Supple Respiratory: Increased respiratory effort with wheezes bilaterally but better airflow Cardiovascular: Regular rate and rhythm GI: Soft, nontender, nondistended Extremities: No edema Musculoskeletal: Moving all extremities Neuro: No overt focal neurological deficits Skin: No rashes appreciated Psych: Cooperative Assessment & Plan Assessment/Plan (1) Aspiration pneumonia: QUALIFIERS: Aspiration pneumonia type: unspecified Laterality: bilateral Lung location: unspecified part of lung Qualified Code(s): J69.0 - Pneumonitis due to inhalation of food and vomit (2) COPD exacerbation: PLAN: Plan # Acute hypoxic respiratory failure on chronic hypoxic respiratory failure on home O2 secondary to acute exacerbation of COPD and suspected component of aspiration pneumonia -Admit to floor, continuous O2 monitoring -Imaging: Chest x-ray with findings concerning for pneumonia -DuoNebs and as needed albuterol -Sputum culture, COVID negative, respiratory panel ordered -Urine antigens -Mucinex, I/S -Given concern for aspiration PNA patient placed on Zosyn -O2 in place, wean as tolerated -IV methylprednisone -Speech consult -11/05: Patient 93% on 4 L high flow but is steadily improving, initially viral swab came back with several pathogens however re-reporting reported it as negative, in light of this we will continue Zosyn, nebs, steroids. Patient is still n.p.o. as he had a coughing spell senior living through his MBSS, no aspiration,however it dropped him to 81% and he was tachypneic and it took 5 minutes and increased O2 to recover, bedside attempts will be retrialed tomorrow if respiratory status is stable # Elevated troponin - Suspect this is due to patient's respiratory distress and hypoxia necessitating BiPAP - Troponins are elevated at 131, increased to 139, subsequently decreased to 133, again suspect this is breathing related and do not suspect a type I event - Continue Plavix, beta-kaushik, statin -11/05: No chest pain, do not suspect that this is ACS in nature # Global hypokinesis of left ventricle/stage I diastolic dysfunction/moderate pulmonary hypertension - Patient's echocardiogram revealed EF of 45% with mild to moderate global hypokinesis of left ventricle, stage I diastolic dysfunction and PASP of 65 withmoderate pulmonary hypertension - Patient received IV fluids on presentation, suspect that this may be contributing to his shortness of breath and difficulty weaning O2 given the global hypokinesis, diastolic dysfunction, and PASP so we will give a dose of Lasix -11/05: Patient given one-time dose of Lasix yesterday, monitoring I's and O's and daily weights Chronic medical problems and/or problems not being actively addressed during today's encounter: # History of coronary artery disease with - Previous stenting and CABG - Continue home Plavix and statin - Continue home beta-kaushik #Type 2 diabetes mellitus -Glucose checks and sliding scale insulin -Patient n.p.o. pending speech evaluation #Hypertension - Patient's home metoprolol and amlodipine continued #GERD -Continue PPI #Depression/anxiety -Continue home medications #DVT ppx: Heparin subcu Anabell Hinkle MD Time spent in the patient's overall evaluation,decision-making process, review of diagnostic data, adjustment of management, discussion with other providers, nursing nursing and ancillary staff involved in patient's care documentation, 37Minutes Charges/Coding Visit Charges Inpatient E&M: 71698 Subs Hosp L2 11/05/24 1407 <Electronically signed by Anabell Hinkle MD> Cosigner Signature (if applicable): CC: ~ Signed [facility] Work Phone: 1(644) 913-544404-11-2025 Progress note [facility] Medical Records Department [address] [place] [address] Progress Note - Hospitalist 11/05/24 1354 MR#: [id number] Acct: [id number] Name: KAM GREENBERG Rep #:[id number] : 1950 74 From: Anabell Hinkle MD PCP: Dr. Royce Carroll MD Status:A DM IN Location: [place] [address] Reason for Visit Reason for Visit: Diagnoses Nutritional anemia, unspecified (11/03/24) Type 2 diabetes mellitus without complications (11/03/24) Essential (primary) hypertension (11/03/24) Chronic obstructive pulmonary disease with (acute) exacerbation (11/03/24) Pneumonitis due to inhalation of food and vomit (11/03/24) Other abnormalities of breathing (11/03/24) Chest pain, unspecified (11/03/24) Other specified abnormal findings of blood chemistry (11/03/24) Subjective Subjective Patient reports feeling a little bit better today, still significantly short of breath and requiring O2 but better than yesterday Objective Data Objective Data Vital Signs: Vital Signs Temp Pulse Resp BP Pulse Ox O2 Del Method O2 Flow Rate 98.3 F 102 H 34 H 154/73 H 93 High Flow 4 11/05/24 12:00 11/05/24 12:00 11/05/24 12:00 11/05/24 12:00 11/05/24 12:01 11/05/24 12:00 11/05/24 12:01 FiO2 37 11/04/24 22:00 Oxygen Flow Rate (L/min) 4 Oxygen Delivery Method High Flow Weight: 81.7 kg Body Mass Index (BMI) 23.7 Intake & Output: Intake and Output for Last 24 Hours 11/03/24 11/04/24 11/05/24 23:59 23:59 23:59 Intake Total 55.83 / 55.83 1434.17 / 1434.17 100 / 100 Output Total 960 / 960 Balance 55.83 / 55.83 474.17 / 474.17 100 / 100 Lab / Micro Data 11/05/24 05:33 11/05/24 05:33 Labs: Laboratory Results - last 24 hr 11/04/24 15:49: Sodium 137, Potassium 5.5 H, Chloride 100, Carbon Dioxide 26.0, Anion Gap 11, BUN 32 H, Creatinine 1.51 H, Estim Creat Clear Calc 49.24 L, Est GFR (MDRD) Non-Af 48 L, BUN/Creatinine Ratio 21.3 H, Glucose 209 H, Calcium 8.7 11/04/24 17:02: POC Glucose 184 H 11/05/24 00:24: POC Glucose 192 H 11/05/24 05:33: WBC 7.2, RBC 2.64 L, Hgb 8.7 L, Hct 27.1 L, MCV 102.7 H, MCH 33.0 H, MCHC 32.1, RDWStd Deviation 52.8 H, RDW Coeff of Christine 14.0, Plt Count 188, MPV 9.8, Immature Gran % (Auto) 0.300, Neut % (Auto) 80.7 H, Lymph % (Auto)11.1 L, Appling % (Auto) 7.9, Eos % (Auto) 0.0, Baso % (Auto) 0.0, Absolute Neuts (auto) 5.8, Absolute Lymphs (auto) 0.80 L, Nucleated RBC % 0, Sodium 142, Potassium 4.4, Chloride 102, Carbon Dioxide 27.9, Anion Gap 12, BUN 36 H, Creatinine 1.63 H, Estim Creat Clear Calc 45.61 L, Est GFR (MDRD) Non-Af 44 L, BUN/Creatinine Ratio 21.8 H, Glucose 187 H, Calcium 8.4, Phosphorus 4.8 H 11/05/24 05:41: POC Glucose 191 H 11/05/24 11:57: POC Glucose 176 H Micro: Microbiology 11/04/24 16:00 Mucosa - Nasopharyngeal Respiratory Panel (PCR) - Final 11/04/24 19:08 Urine, Clean Catch Legionella Antigen - Final 11/04/24 19:08 Urine, Clean Catch Streptococcus pneumoniae Antigen (M - Final 11/03/24 18:55 Mucosa - Nose SARS-CoV-2, Influenza & RSV (PCR) - Final Radiography Diagnostic Testing: Radiology Impression Echocardiogram 11/04/24 01:51 Interpretation Summary Normal LV size. The left ventricular ejection fraction is 45 %. There is mild to moderate global hypokinesis of the left ventricle. Stage 1 diastolic dysfunction. Pulmonary artery systolic pressure is 65 mmHg. The left atrium is mildly enlarged. Moderate pulmonary hypertension. Contrast injection was performed. Ordering Physician: Kam Rogers Referring Physician: Royce Carroll M.D. Performed By: Kiara Velasquez RDCS Physical Exam Narrative General: Alert, oriented HEENT: Atraumatic, normocephalic Eyes: Anicteric, normal conjunctiva, extraocular movements grossly intact Neck: Supple Respiratory: Increased respiratory effort with wheezes bilaterally but better airflow Cardiovascular: Regular rate and rhythm GI: Soft,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 diabetes mellitus without complications (6) Essential hypertension: (7) Elevated troponin: (8) Chest pain: QUALIFIERS: Chest pain type: unspecified Qualified Code(s): R07.9- Chest pain, unspecified PLAN: Plan 1. Leukocytosis of 12.7 K present on admission with a corresponding CXR that revealed upper lobe emphysema with small bilateral pleural effusion/scarring with mid to lower lungs and bilateral airspace opacities more prominent on the Right suspicious for Pneumonia which was suspected be due to Aspiration - Admit to general medical floor. Continue empiric IV piperacillin-tazobactam begun in the ER and await culture and sensitivity data. Will order formal speech therapyevaluation for suspected recurrent aspiration of thin liquids with help appreciated in advance. Patient has listed allergy to acetaminophen (?). Give IV hydromorphone as needed for severe (level 6-10/10) pain given listed allergy to morphine (?). 2. AE COPD with Chuqz-bf-Izdyxzi Respiratory Insufficiency attributable to #1 -Maintain IV methylprednisolone begun in ER plus give scheduled and as needed nebulizer treatments. Wean additional supplemental oxygen as tolerated. Give IV pantoprazole for GI prophylaxis while on high-dose steroids. 3. History of admission here from December 11, 2022 to December 16, 2022 for treatment ofAE COPD complicated by acute respiratory failure (on chronic 4L NC) and acute exacerbation of chronic diastolic CHF with lactic acidosis plus macrocytic anemia with MCV of 101.9 fL that admission - Noted. Patient quit smoking in 2022. However, MCV elevated at 103.6 fL this admission with low hemoglobin of 10.1 g/dL. Therefore, check B12 and folate levels to evaluate for possible underlying deficiency. 4. DM-2; of unknown control on metformin twice daily - Hold metformin while inpatient. Keep NPO and check FSBS q. 6 hours plus lowest-intensity SSI. [id number] to objectively assess quality of diabetic control. 5. Essential hypertension; on amlodipine and metoprolol - Resume home regimen plus give as needed IV hydralazine for systolic blood pressure greater then 160 mmHg. 6. Hyperlipidemia; on atorvastatin - Continue statin. 7. CAD; s/p CABG x 3 and stent x 2 on clopidogrel - Resume clopidogrel as before. 8. History of chronic diastolic CHF; with preserved LVEF - Noted. 9. History of carotid atherosclerosis - Noted. 10. History of TIA/CVA; s/p previous administration of tPA - Noted. 11. CKD; stage IIIa - Stable with estimated GFR of 49.24 mL/min with serum creatinine of 1.51 mg/dL and BUN of 25 mg/dL present on admission. 12. Essential tremor - Stable. 13. Depression; on sertraline - Maintain current treatment. Check TSH. 14. History of Right inguinal hernia; s/p repair - Noted. 15. History of appendectomy - Noted. 16. OA; s/p bilateral foot surgeries - Stable. 17. DVT/GI prophylaxis - Enoxaparin 30 mg sq daily. Pantoprazole 40 mg IV daily while NPO. Total time: Approximately: (but not less than) 55 minutes. Update: Shortly after arrival to PCU patient was noted to develop chest pain with frequent coughing fits the patient apparently having difficulty managing his saliva. He was started on ASA + full-dose enoxaparin with chemical stress test pending in the morning. Charges/Coding Visit Charges Inpatient E&M: 86409 Init Hosp L2 11/04/241919 <Electronically signed by Kam Rogers DO> Cosigner Signature (if applicable): CC: Dr. Kam Rogers DO; Dr. Royce Carroll MD~ Signed [facility] Work Phone: [phone] History and physical note [facility] Medical Records Department [address] [place] [address] H&P Exam - Hospitalist 11/03/242049 MR#: [id number] Acct: [id number] Name: GREENBERGKAM BRAXTON Rep #:[id number] : 1950 74 From: Kam Pleitez DO PCP: Dr. Royce Carroll MD Status:A DM IN Location: [place] [address] HPI - General General Date of Admission: 11/03/24 Date of Service: 11/03/24 Chief Complaint: SOB, Wheezing and Cough with Drinking. HPI Narrative KAM KEVIN, is a 74 M with a past medical history of essential hypertension;on amlodipine and metoprolol, hyperlipidemia; on atorvastatin, DM- 2; of unknown control on metformin twice daily, CAD; s/p CABG x 3 and stent x 2 on clopidogrel, history of chronic diastolic CHF; with preserved LVEF, history of carotid atherosclerosis, history of TIA/CVA; s/p previous administration of tPA,CKD; stage IIIa, essential tremor, depression; on sertraline, history of Right inguinal hernia; s/p repair, history of appendectomy, OA; s/p bilateral foot surgeries, history of tobacco abuse (quit 2022); with subsequent COPD on 4L NC continuous and history of admission here from December 11, 2022 to December 16, 2022 fo r treatment of AE COPD complicated by acute respiratory failure and acute exacerbation of chronic diastolic CHF with lactic acidosis plus macrocytic anemia with MCV of 101.9 fL that admission who presents to [facility] ER complaining of shortness of breath, wheezing and cough made worse with drinking. Mr. Greenberg reports his symptoms began ~2 weeks prior to admission with a gradual-onset of dyspneaon exertion that progressed to shortness of breath at rest. He also admits to chest tightness due to dyspnea. He states he does not check his sugars frequently and cannot recall his last glucose. Hisfamily noticed whenever he is drinking fluids he was noted to have coughing fits with awitnessed episode in the ER. There was no report of fever, chills, runny nose, sore throat, ear pain, chest pain, abdominal pain, nausea, vomiting, diarrhea, constipation, dysuria, hematuria, arthralgias, myalgias, headache or rash. In the ER he was noted to have Leukocytosis of 12.7 K present on admission witha corresponding CXR that revealed upper lobe emphysema with small bilateral pleural effusion/scarring with mid to lower lungs and bilateral airspace opacities more prominent on the Right suspicious for Pneumonia which was suspected be due to aspiration complicated by clinical evidence of AE COPD with Oguqu-pl-Ajohfhp Respiratory Insufficiency with patient requiring increased supplemental oxygen up to 5 LNC in ER and he was then admitted to the general medical floor for ongoing care for status is expected to extend beyond 2 midnights. [facility] Medical History (Updated 11/04/24 @ 01:[address] Kam Rogers, ) COPD exacerbation Essential tremor Stage 3a chronic kidney disease (CKD) Diabetes mellitus, type 2 CAD (coronary artery disease) History of CVA (cerebrovascular accident) Tobacco use Hyperlipidemia COPD (chronic obstructive pulmonary disease) Hypertension Home Medications ?Medication ?Instructions ?Recorded ?Last Taken ?Type clopidogrel 75 mg tablet 75 mg PO DAILY Check with pr imary 03/24/16 Unknown History doctor metoprolol tartrate 50 mg tablet 50 mg PO BID Check wi th primary 03/24/16 12/10/22 History doctor amlodipine 5 mg tablet 5 mg PO DAILY Check with daniella nona 12/11/22 12/10/22 History doctor sertraline 100 mg tablet 100 mg PO DAILY Check with p rimary 12/11/22 12/10/22 History doctor albuterol sulfate 2.5 mg/3 mL 2.5 mg (3 mL) inhalation Q2H PRN 12/17/22 12/10/22 Rx (0.083 %) solution for nebulization PRN shortness of b reath or wheezing #1 mL ipratropium 0.5 mg-albuterol 3 mg 3 ml inhalation 4X/D AY #120 mL 12/17/22 Unknown Rx (2.5 mg base)/3 mL nebulization soln albuterol sulfate 90 mcg/actuation 2 puff inhalation Q 4H PRN PRN 11/03/24 Unknown History aerosol inhaler wheezing atorvastatin 40 mg tablet 40 mg PO QHS 11/03/24 Unknow n History fluticasone fur. 100 mcg-umeclid 1 ea inhalation DAILY 11/03/24 Unknown History 62.5 mcg-vilant 25 mcg inhalat.powder (Trelegy Ellipta) fluticasone propionate 50 1 spray intranasal BID 11/03 Unknown History mcg/actuation nasal spray,suspension metformin 500 mg tablet 500 mg PO BID 11/03/24 Unkno wn History Allergy/AdvReac Type Severity Reaction Status Date / Time acetaminophen (From Tylenol) Allergy Unknown Verified 11/03/24 17:30 morphine Allergy Other Verified 11/03/24 17:30 oyster extract Allergy Unknown Verified 11/03/24 17:30 lisinopril AdvReac Other Verified 11/03/24 17:30 Family History Mother Cancer Brain cancer, unclear type. Son Cancer Youngest son, metastatic testicular cancer. Father Heart disease Hypertension CVA (cerebral vascular accident) Surgical History S/P appendectomy H/O right inguinal hernia repair S/P bilateral foot surgery S/P triple vessel bypass H/O heart artery stent Social History (Updated 11/03/24 @ 22:22 by Shadia Leon) household members: spouse current occupational status: retired Smoking Status: Current every day smoker tobacco type: cigarettes how long ago did patient quit smoking: Smoked since 1967, up to 1 ppd, recent down to 1 pk/4-5 days. alcohol intake: current alcohol intake frequency: holidays/special occasions only substance use type: does not use ROS ROS Narrative Review of Systems: Constitutional: Patient denies fever or chills. Eyes: Patient denies changes in vision or discharge from eyes. ENT: Patient denies runny nose, sore throat or ear pain. Resp: Patient admits to shortness of breath, wheezing and cough made worse with drinking as per HPI. CV: Patient denies chest pain, palpitations, heart racing or lower extremity edema. GI: Patient denies abdominal pain, nausea, vomiting, diarrhea or constipation. : Patient denies dysuria, hematuria or urinary frequency. MSK: Patient denies arthralgias or myalgias. Skin: Patient denies rash, abscess, wounds or jaundice. Psych: Patient denies symptoms of uncontrolled depression or anxiety. Neuro: Patient denies headache, paresthesias or focal neurologic deficits. Allergy: Patient denies lip swelling, tongue swelling or urticaria. Hematology: Patient denies easy bleeding or easy bruisability. Endocrinology: Patient admits to poor glucose management but he denies polyuria,polydipsia, polyphagia or heat/cold intolerance. 14 point ROS otherwise negative except for positives noted above in HPI. Vital Signs Vital Signs Vital Signs: 11/03/24 17:31 11/03/24 18:16 11/03/24 18:17 Temperature 98.9 F 98 F Temperature Source Oral Temporal Pulse Rate 93 95 Respiratory Rate 18 35 H Respiratory Effort Respiratory Depth Respiratory Pattern Blood Pressure 142/98 H 118/72 Blood Pressure Mean 112 87 Pulse Ox 95 88 95 Oxygen Delivery Method Nasal Cannula Nasal Cannula Nasal Cannula Oxygen Flow Rate (L/min) 4 4 6 11/03/24 18:17 11/03/24 18:19 11/03/24 18:21 Temperature Temperature Source Pulse Rate Respiratory Rate 22 H Respiratory Effort Short of Breath Labored Respiratory Depth Deep Respiratory Pattern Blood Pressure Blood Pressure Mean Pulse Ox 100 98 Oxygen Delivery Method Nasal Cannula Nasal Cannula Nasal Cannula Oxygen Flow Rate (L/min) 6 6 5 11/03/24 18:26 11/03/24 18:42 11/03/24 18:46 Temperature Temperature Source Pulse Rate 89 94 Respiratory Rate 26 H 28 H Respiratory Effort Respiratory Depth Respiratory Pattern Tachypnea Blood Pressure 136/76 H Blood Pressure Mean 96 Pulse Ox 96 95 Oxygen Delivery Method Nasal Cannula Nasal Cannula Oxygen Flow Rate (L/min) 4 4 11/03/24 19:00 11/03/24 20:00 11/03/24 20:10 Temperature 98 F 97.2 F L Temperature Source Temporal Temporal Pulse Rate 97 94 Respiratory Rate 33 H 22 H Respiratory Effort Respiratory Depth Respiratory Pattern Blood Pressure 144/78 H 143/67 H Blood Pressure Mean 100 92 Pulse Ox 92 92 85 Oxygen Delivery Method Nasal Cannula Nasal Cannula Nasal Cannula Oxygen Flow Rate (L/min) 4 4 4 11/03/24 20:15 11/03/24 20:32 11/03/24 20:40 Temperature Temperature Source Pulse Rate Respiratory Rate Respiratory Effort Respiratory Depth Respiratory Pattern Blood Pressure Blood Pressure Mean Pulse Ox 98 94 86 Oxygen Delivery Method Nasal Cannula Nasal Cannula Nasal Cannula Oxygen Flow Rate (L/min) 5 4 4 11/03/24 20:44 Temperature Temperature Source Pulse Rate Respiratory Rate Respiratory Effort Respiratory Depth Respiratory Pattern Blood Pressure Blood Pressure Mean Pulse Ox 89 Oxygen Delivery Method Nasal Cannula Oxygen Flow Rate (L/min) 5 Weight Weight: 180 lb Body Mass Index (BMI) 23.7 Physical Exam Const alert, oriented x3 and average body habitus Constitutional Narrative: Patient is speaking in short sentences with nontoxic appearance. General Appearance: cooperative HEENT normocephalic, head/scalp atraumatic, hearing grossly normal bilaterally and moist oral mucous membranes Eyes PERRL and EOMs intact bilaterally Neck no lymphadenopathy and supple Resp Resp Narrative: Diminished breath sounds throughout with bilateral expiratory wheezing noted. Auscultation: wheezes Cardio regular rate and regular rhythm GI normal to inspection, nondistended, normoactive bowel sounds, soft to palpation,non-tender and non-distended Extremity normal to inspection, full ROM and no clubbing, cyanosis or edema Skin Skin Narrative: Patient has evidence of rash, abscess, wounds or jaundice. Neuro CN's II-XII intact bilaterally, moves all extremities and no focal motor deficits Sensorium / Orientation: awake, alert, oriented to person, oriented to place andoriented to time Speech: speech normal Psych affect normal Results Medical Records Data Attestation: I reviewed the patient's medical records Lab / Micro Data Attestation: I reviewed the patient's lab results. 11/03/24 17:15 11/03/24 17:15 Labs: Laboratory Results - last 24 hr 11/03/24 17:15: WBC 12.7 H, RBC 3.08 L, Hgb 10.1 L, Hct 31.9 L, MCV 103.6 H, MCH32.8 H, MCHC 31.7 L, RDW Std Deviation 54.4 H, RDW Coeff of Christine 14.5, Plt Count 204, MPV 10.1, Immature Gran % (Auto) 0.200, Neut % (Auto) 88.5 H, Lymph % (Auto) 5.6 L, Appling % (Auto) 5.4, Eos % (Auto) 0.2, Baso % (Auto)0.1, Absolute Neuts (auto) 11.2 H, Absolute Lymphs (auto) 0.71 L, Nucleated RBC % 0, Sodium 136, Potassium 4.8, Chloride 96 L, Carbon Dioxide 29.8, Anion Gap 11, BUN 25 H, Creatinine 1.51 H, Estim Creat Clear Calc 49.24 L, Est GFR (MDRD) Non-Af 48 L, BUN/Creatinine Ratio 16.3, Glucose 201 H, Calcium 9.2 Micro: Microbiology 11/03/24 18:55 Mucosa - Nose SARS-CoV-2, Influenza & RSV (PCR) - Final Imaging Radiology Impression Chest X-Ray 11/03/24 19:30 IMPRESSION: Findings concerning for pneumonia. Reading Location: [facility] Assessment & Plan Assessment/Plan (1) Aspiration pneumonia: QUALIFIERS: Aspiration pneumonia type: unspecified Laterality: bilateral Lung location: unspecifiedpart of lung Qualified Code(s): J69.0 - Pneumonitis due to inhalation of food and vomit (2) COPD exacerbation: (3) Respiratory insufficiency: (4) Macrocytic anemia: (5) Diabetes mellitus, type 2: QUALIFIERS: Diabetes mellitus complication status: without complication Diabetes mellitus long terminsulin use: without usp use Qualified Code(s): E11.9 - Type 2 diabetes mellitus without complications (6) Essential hypertension: (7) Elevated troponin: (8) Chest pain: QUALIFIERS: Chest pain type: unspecified Qualified Code(s): R07.9- Chest pain, unspecified PLAN: Plan 1. Leukocytosis of 12.7 K present on admission with a corresponding CXR that revealed upper lobe emphysema with small bilateral pleural effusion/scarring with mid to lower lungs and bilateral airspace opacities more prominent on the Right suspicious for Pneumonia which was suspected be due to Aspiration - Admit to general medical floor. Continue empiric IV piperacillin-tazobactam begun in the ER and await culture and sensitivity data. Will order formal speech therapyevaluation for suspected recurrent aspiration of thin liquids with help appreciated in advance. Patient has listed allergy to acetaminophen (?). Give IV hydromorphone as needed for severe (level 6-10/10) pain given listed allergy to morphine (?). 2. AE COPD with Zegvg-zh-Jkqgkuz Respiratory Insufficiency attributable to #1 - Maintain IV methylprednisolone begun in ER plus give scheduled and as needed nebulizer treatments. Wean additional supplemental oxygen as tolerated. Give IV pantoprazole for GI prophylaxis while on high-dose steroids. 3. History of admission here from December 11, 2022 to December 16, 2022 for treatment ofAE COPD complicated by acute respiratory failure (on chronic 4L NC) and acute exacerbation of chronic diastolic CHF withlactic acidosis plus macrocytic anemia with MCV of 101.9 fL that admission - Noted. Patient quit smoking in 2022. However, MCV elevated at 103.6 fL this admission with low hemoglobin of 10.1 g/dL. Therefore, check B12 and folate levels to evaluate for possible underlying deficiency. 4. DM-2; of unknown control on metformin twice daily - Hold metformin while inpatient. Keep NPO andcheck FSBS q. 6 hours plus lowest-intensity SSI. [id number] to objectively assess quality of diabetic control. 5. Essential hypertension; on amlodipine and metoprolol - Resume home regimen plus give as needed IV hydralazine for systolic blood pressure greater then 160 mmHg. 6. Hyperlipidemia; on atorvastatin - Continue statin. 7. CAD; s/p CABG x 3 and stent x 2 on clopidogrel - Resume clopidogrel as before. 8. History of chronic diastolic CHF; with preserved LVEF - Noted. 9. History of carotid atherosclerosis - Noted. 10. History of TIA/CVA; s/p previous administration of tPA - Noted. 11. CKD; stage IIIa - Stable with estimated GFR of 49.24 mL/min with serum creatinine of 1.51 mg/dLand BUN of 25 mg/dL present on admission. 12. Essential tremor - Stable. 13. Depression; on sertraline - Maintain current treatment. Check TSH. 14. History of Right inguinal hernia; s/p repair - Noted. 15. History of appendectomy - Noted. 16. OA; s/p bilateral foot surgeries - Stable. 17. DVT/GI prophylaxis - Enoxaparin 30 mg sq daily. Pantoprazole 40 mg IV daily while NPO. Total time: Approximately: (but not less than) 55 minutes. Update: Shortly after arrival to PCU patient was noted to develop chest pain with frequent coughingfits the patient apparently having difficulty managing his saliva. He was started on ASA + full-dose enoxaparin with chemical stress test pending in the morning. Charges/Coding Visit Charges Inpatient E&M: 59096 Init Hosp L2 11/04/241919 Cosigner Signature (if applicable): CC: Dr. Kam Rogers DO; Dr. Royce Carroll MD~ Signed [facility]04-10-2025 Progress note Author Anabell Hinkle [facility] Note Date/Time November 04, 2024 3:5 2pm [facility] Medical Records Department [address] [place] [address] Progress Note - Hospitalist 11/04/24 1538 MR#: [id number] Acct: [id number] Name: KAM GREENBERG Rep #:[id number] : 1950 74 From: Anabell Hinkle MD PCP: Dr. Royce Carroll MD Status:A DM IN Location: [facility]- Subjective Subjective Patient sitting up in chair, had just been up moving around and feeling significantly short of breath reports he does think he is recovering Objective Data Objective Data Vital Signs: Vital Signs Temp Pulse Resp BP Pulse Ox O2 Del Method O2 Flow Rate 97.3 F L 82 20 H 134/72 H 98 High Flow 4 11/04/24 14:35 11/04/24 15:04 11/04/24 15:04 11/04/24 14:35 11/04/24 15:04 11/04/24 15:04 11/04/24 15:04 FiO2 37 11/04/24 07:58 Oxygen Flow Rate (L/min) 4 Oxygen Delivery Method High Flow Weight: 81.9 kg Body Mass Index (BMI) 23.8 Intake & Output: Intake and Output for Last 24 Hours 11/02/24 11/03/24 11/04/24 23:59 23:59 23:59 Intake Total 55.83 / 55.83 1264.17 / 1264.17 Output Total 100 / 100 Balance 55.83 / 55.83 1164.17 / 1164.17 Lab / Micro Data 11/04/24 03:49 11/04/24 03:49 Labs: Laboratory Results - last 24 hr 11/03/24 17:15: WBC 12.7 H, RBC 3.08 L, Hgb 10.1 L, Hct 31.9 L, MCV 103.6 H, MCH32.8 H, MCHC 31.7 L, RDW Std Deviation 54.4 H, RDW Coeff of Christine 14.5, Plt Count 204, MPV 10.1, Immature Gran % (Auto) 0.200, Neut % (Auto) 88.5 H, Lymph % (Auto) 5.6 L, Appling % (Auto) 5.4, Eos % (Auto) 0.2, Baso % (Auto) 0.1, Absolute Neuts (auto) 11.2 H, Absolute Lymphs (auto) 0.71 L, Nucleated RBC % 0, Sodium 136, Potassium 4.8, Chloride 96 L, Carbon Dioxide 29.8, Anion Gap 11, BUN 25 H, Creatinine 1.51 H, Estim Creat Clear Calc 49.24 L, Est GFR (MDRD) Non-Af 48 L, BUN/Creatinine Ratio 16.3, Glucose 201 H, Hemoglobin A1c 6.6, Calcium 9.2, Magnesium 1.8, Vitamin B12 1475 H, TSH 1.190 11/03/24 23:44: POC Glucose 176 H 11/03/24 23:59: Troponin T High Sens 131 H*, Serum Folate 19.60 11/04/24 01:46: Troponin T Hi Sens 2 Hr 139 H* 11/04/24 03:49: WBC 12.4 H, RBC 2.70 L, Hgb 9.0 L, Hct 27.8 L, MCV 103.0 H, MCH 33.3 H, MCHC 32.4, RDW Std Deviation 53.1 H, RDW Coeff of Christine 14.2, Plt Count 179, MPV 9.8, Immature Gran % (Auto) 0.400, Neut % (Auto) 93.0 H, Lymph % (Auto)3.8 L, Appling % (Auto) 2.7, Eos % (Auto) 0.0, Baso % (Auto) 0.1, Absolute Neuts (auto) 11.5 H, Absolute Lymphs (auto) 0.47 L, Nucleated RBC % 0, Sodium 136, Potassium 5.5 H, Chloride 99, Carbon Dioxide 23.9, Anion Gap 13, BUN 27 H, Creatinine 1.33 H, Estim Creat Clear Calc 55.90, Est GFR (MDRD) Non-Af 56 L, BUN/Creatinine Ratio 20.4 H, Glucose 175 H, Calcium 8.6, Phosphorus 4.5, Total Bilirubin 0.29, AST 23, ALT 8, Alkaline Phosphatase 110, Troponin T Hi Sens 4Hr 133 H*, Total Protein 6.5, Albumin 3.3 L, Globulin 3.3, Albumin/Globulin Ratio 1.0, Triglycerides 67, Cholesterol 76, LDL Cholesterol, Calc 23, VLDL Cholesterol 13, HDL Cholesterol 40, Cholesterol/HDL Ratio 1.91 11/04/24 05:39: POC Glucose 163 H 11/04/24 11:54: POC Glucose 168 H Micro: Microbiology 11/03/24 18:55 Mucosa - Nose SARS-CoV-2, Influenza & RSV (PCR) - Final ABG Data ABG results: ABG 11/03/24 11/04/24 11/04/24 23:05 01:41 03:47 Specimen Type ART ART ART Sample Site R Radial R Radial R Radial pH 7.32 L 7.32 L 7.33 L Bicarbonate Actual 32.9 H 34.7 H 33.2 H Total CO2 35 37 35 Base Excess 7 H 9 H 7 H O2 Saturation 97 97 96 O2 % 6.0 50.0 40.0 ABG pCO2 64.2 H 66.8 H 63.5 H ABG pO2 99 106 H 92 Helen Test Positive Positive Positive Respiration Rate 14 O2 Delivery Device Cannula CPAP BiPAP Vent Mode Not entered Not entered Not entered POC PEEP 8 Peak Inspir Pressure 16 Radiography Diagnostic Testing: Radiology Impression Chest X-Ray 11/03/24 19:30 IMPRESSION: Findings concerning for pneumonia. Reading Location: [facility] Echocardiogram 11/04/24 01:51 Interpretation Summary Normal LV size. The left ventricular ejection fraction is 45 %. There is mild to moderate global hypokinesis of the left ventricle. Stage 1 diastolic dysfunction. Pulmonary artery systolic pressure is 65 mmHg. The left atrium is mildly enlarged. Moderate pulmonary hypertension. Contrast injection was performed. Ordering Physician: Kam Rogers Referring Physician: Royce Carroll M.D. Performed By: Kiara Velasquez RDCS Physical Exam Narrative General: Alert, oriented HEENT: Atraumatic, normocephalic Eyes: Anicteric, normal conjunctiva, extraocular movements grossly intact Neck: Supple Respiratory: Increased respiratory effort and diminished bilaterally Cardiovascular: Regular rate and rhythm GI: Soft, nontender, nondistended Extremities: No edema Musculoskeletal: Moving all extremities Neuro: No overt focal neurological deficits Skin: No rashes appreciated Psych: Cooperative Assessment & Plan Assessment/Plan (1) Aspiration pneumonia: QUALIFIERS: Aspiration pneumonia type: unspecified Laterality: bilateral Lung location: unspecified part of lung Qualified Code(s): J69.0 - Pneumonitis due to inhalation of food and vomit (2) COPD exacerbation: PLAN: Plan # Acute hypoxic respiratory failure on chronic hypoxic respiratory failure on home O2 secondary to acute exacerbation of COPD and suspected component of aspiration pneumonia -Admit to floor, continuous O2 monitoring -Imaging: Chest x-ray with findings concerning for pneumonia -DuoNebs and as needed albuterol -Sputum culture, COVID negative, respiratory panel ordered -Urine antigens -Mucinex, I/S -Given concern for aspiration PNA patient placed on Zosyn -O2 in place, wean as tolerated -IV methylprednisone -Speech consult # Elevated troponin - Suspect this is due to patient's respiratory distress and hypoxia necessitating BiPAP - Troponins are elevated at 131, increased to 139, subsequently decreased to 133, again suspect this is breathing related and do not suspect a type I event - Continue Plavix, beta-kaushik, statin # Global hypokinesis of left ventricle/stage I diastolic dysfunction/moderate pulmonary hypertension - Patient's echocardiogram revealed EF of 45% with mild to moderate global hypokinesis of left ventricle, stage I diastolic dysfunction and PASP of 65 withmoderate pulmonary hypertension - Patient received IV fluids on presentation, suspect that this may be contributing to his shortness of breath and difficulty weaning O2 given the global hypokinesis, diastolic dysfunction, and PASP so we will give a dose of Lasix # History of coronary artery disease with - Previous stenting and CABG - Continue home Plavix and statin - Continue home beta-kaushik #Type 2 diabetes mellitus -Glucose checks and sliding scale insulin -Patient n.p.o. pending speech evaluation #Hypertension - Patient's home metoprolol and amlodipine continued #GERD -Continue PPI #Depression/anxiety -Continue home medications #DVT ppx: Heparin subcu Anaebll Hinkle MD Charges/Coding Visit Charges Inpatient E&M: 33760 Subs Hosp L2 11/04/24 6608 <Electronically signed by Anabell Hinkle MD> Cosigner Signature (if applicable): CC: ~ Signed [facility] Work Phone: [phone] Progress note [facility] Medical Records Department [address] [place] [address] Progress Note - Hospitalist 11/04/24 1538 MR#: [id number] Acct: [id number] Name: KAM GREENBERG Rep #:[id number] : 1950 74 From: Anabell Hinkle MD PCP: Dr. Royce Carroll MD Status:A DM IN Location: [place] [id number] Subjective Subjective Patient sitting up in chair, had just been up moving around and feeling significantly short of breath reports he does think he is recovering Objective Data Objective Data Vital Signs: Vital Signs Temp Pulse Resp BP Pulse Ox O2 Del Method O2 Flow Rate 97.3 F L 82 20 H 134/72 H 98 High Flow 4 11/04/24 14:35 11/04/24 15:04 11/04/24 15:04 11/04/24 14:35 11/04/24 15:04 11/04/24 15:04 11/04/24 15:04 FiO2 37 11/04/24 07:58 Oxygen Flow Rate (L/min) 4 Oxygen Delivery Method High Flow Weight: 81.9 kg Body Mass Index (BMI) 23.8 Intake & Output: Intake and Output for Last 24 Hours 11/02/24 11/03/24 11/04/24 23:59 23:59 23:59 Intake Total 55.83 / 55.83 1264.17 / 1264.17 Output Total 100 / 100 Balance 55.83 / 55.83 1164.17 / 1164.17 Lab / Micro Data 11/04/24 03:49 11/04/24 03:49 Labs: Laboratory Results - last 24 hr 11/03/24 17:15: WBC 12.7 H, RBC 3.08 L, Hgb 10.1 L, Hct 31.9 L, MCV 103.6 H, MCH32.8 H, MCHC 31.7 L, RDW Std Deviation 54.4 H, RDW Coeff of Christine 14.5, Plt Count 204, MPV 10.1, Immature Gran % (Auto) 0.200, Neut % (Auto) 88.5 H, Lymph % (Auto) 5.6 L, Appling % (Auto) 5.4, Eos % (Auto) 0.2, Baso % (Auto)0.1, Absolute Neuts (auto) 11.2 H, Absolute Lymphs (auto) 0.71 L, Nucleated RBC % 0, Sodium 136, Potassium 4.8, Chloride 96 L, Carbon Dioxide 29.8, Anion Gap 11, BUN 25 H, Creatinine 1.51 H, Estim Creat Clear Calc 49.24 L, Est GFR (MDRD) Non-Af 48 L, BUN/Creatinine Ratio 16.3, Glucose 201 H, Hemoglobin A1c 6.6, Calcium 9.2, Magnesium 1.8, Vitamin B12 1475 H, TSH 1.190 11/03/24 23:44: POC Glucose 176 H 11/03/24 23:59: Troponin T High Sens 131 H*, Serum Folate 19.60 11/04/24 01:46: Troponin T Hi Sens 2 Hr 139 H* 11/04/24 03:49: WBC 12.4 H, RBC 2.70 L, Hgb 9.0 L, Hct 27.8 L, MCV 103.0 H, MCH 33.3 H, MCHC 32.4, RDW Std Deviation 53.1 H, RDW Coeff of Christine 14.2, Plt Count 179, MPV 9.8, Immature Gran % (Auto) 0.400, Neut % (Auto) 93.0 H, Lymph % (Auto)3.8 L, Appling % (Auto) 2.7, Eos % (Auto) 0.0, Baso % (Auto) 0.1, Absolute Neuts (auto) 11.5 H, Absolute Lymphs (auto) 0.47 L, Nucleated RBC % 0, Sodium 136, Potassium 5.5 H, Chloride 99, Carbon Dioxide 23.9, Anion Gap 13, BUN 27 H, Creatinine 1.33 H, Estim Creat Clear Calc 55.90, Est GFR (MDRD) Non-Af 56 L, BUN/Creatinine Ratio 20.4 H, Glucose 175 H, Calcium 8.6, Phosphorus 4.5, Total Bilirubin 0.29, AST 23, ALT 8, Alkaline Phosphatase 110, Troponin T Hi [id number] 133 H*, Total Protein 6.5, Albumin 3.3 L, Globulin 3.3, Albumin/Globulin Ratio 1.0, Triglycerides 67, Cholesterol 76, LDL Cholesterol, Calc 23, VLDL Cholesterol 13, HDL Cholesterol 40, Cholesterol/HDL Ratio 1.91 11/04/24 05:39: POC Glucose 163 H 11/04/24 11:54: POC Glucose 168 H Micro: Microbiology 11/03/24 18:55 Mucosa - Nose SARS-CoV-2, Influenza & RSV (PCR) - Final ABG Data ABG results: ABG 11/03/24 11/04/24 11/04/24 23:05 01:41 03:47 Specimen Type ART ART ART Sample Site R Radial R Radial R Radial pH 7.32 L 7.32 L 7.33 L Bicarbonate Actual 32.9 H 34.7 H 33.2 H Total CO2 35 37 35 Base Excess 7 H 9 H 7 H O2 Saturation 97 97 96 O2 % 6.0 50.0 40.0 ABG pCO2 64.2 H 66.8 H 63.5 H ABG pO2 99 106 H 92 Helen Test Positive Positive Positive Respiration Rate 14 O2 Delivery Device Cannula CPAP BiPAP Vent Mode Not entered Not entered Not entered POC PEEP 8 Peak Inspir Pressure 16 Radiography Diagnostic Testing: Radiology Impression Chest X-Ray 11/03/24 19:30 IMPRESSION: Findings concerning for pneumonia. Reading Location: [facility] Echocardiogram 11/04/24 01:51 Interpretation Summary Normal LV size. The left ventricular ejection fraction is 45 %. There is mild to moderate global hypokinesis of the left ventricle. Stage 1 diastolic dysfunction. Pulmonary artery systolic pressure is 65 mmHg. The left atrium is mildly enlarged. Moderate pulmonary hypertension. Contrast injection was performed. Ordering Physician: Kam Rogers Referring Physician: Royce Carroll M.D. Performed By: Kiara Velasquez RDCS Physical Exam Narrative General: Alert, oriented HEENT: Atraumatic, normocephalic Eyes: Anicteric, normal conjunctiva, extraocular movements grossly intact Neck: Supple Respiratory: Increased respiratory effort and diminished bilaterally Cardiovascular: Regular rate and rhythm GI: Soft, nontender, nondistended Extremities: No edema Musculoskeletal: Moving all extremities Neuro: No overt focal neurological deficits Skin: No rashes appreciated Psych: Cooperative Assessment & Plan Assessment/Plan (1) Aspiration pneumonia: QUALIFIERS: Aspiration pneumonia type: unspecified Laterality: bilateral Lung location: unspecifiedpart of lung Qualified Code(s): J69.0 - Pneumonitis due to inhalation of food and vomit (2) COPD exacerbation: PLAN: Plan # Acute hypoxic respiratory failure on chronic hypoxic respiratory failure on home O2 secondary to acute exacerbation of COPD and suspected component of aspiration pneumonia -Admit to floor, continuous O2 monitoring -Imaging: Chest x-ray with findings concerning for pneumonia -DuoNebs and as needed albuterol -Sputum culture, COVID negative, respiratory panel ordered -Urine antigens -Mucinex, I/S -Given concern for aspiration PNA patient placed on Zosyn -O2 in place, wean as tolerated -IV methylprednisone -Speech consult # Elevated troponin - Suspect this is due to patient's respiratory distress and hypoxia necessitating BiPAP - Troponins are elevated at 131, increased to 139, subsequently decreased to 133, again suspect this is breathing related and do not suspect a type I event - Continue Plavix, beta-kaushik, statin # Global hypokinesis of left ventricle/stage I diastolic dysfunction/moderate pulmonary hypertension - Patient's echocardiogram revealed EF of 45% with mild to moderate global hypokinesis of left ventricle, stage I diastolic dysfunction and PASP of 65 withmoderate pulmonary hypertension - Patient received IV fluids on presentation, suspect that this may be contributing to his shortness of breath and difficulty weaning O2 given the global hypokinesis, diastolic dysfunction, and PASP so we will give a dose of Lasix # History of coronary artery disease with - Previous stenting and CABG - Continue home Plavix and statin - Continue home beta-kaushik #Type 2 diabetes mellitus -Glucose checks and sliding scale insulin -Patient n.p.o. pending speech evaluation #Hypertension - Patient's home metoprolol and amlodipine continued #GERD -Continue PPI #Depression/anxiety -Continue home medications #DVT ppx: Heparin subcu Anabell Hinkle MD Charges/Coding Visit Charges Inpatient E&M: 96952 Subs Hosp L2 11/04/24 1552 Cosigner Signature (if applicable): CC: ~ Signed [facility]04-10-2025 Discharge summary Author Yoav Alcaraz [facility] Note Date/Time November 03, 2024 10:4 2pm [facility] Medical Records Department [address] [place] [address] Emergency Department Summary 11/03/24 MR#: [id number] Acct: [id number] Name: KAM GREENBERG Rep #:[id number] : 1950 74 From: Yoav Ledezma PCP: Dr. Royce Carroll MD Status:A DM IN Location: [place] [address] HPI History of Present Illness Chief Complaint: Shortness of Breath Informant: patient and family Narrative Narrative: Brought in by EMS worsening dyspnea last few weeks. History COPD chronic 4 L oxygen with tobacco history. Denies cough. Does have inhalers at home. Diabetes on oral medicines. Chest tightness due to dyspnea. Patient on aspirintherapy. Does not check his sugars frequently. Cannot recall his last glucose. No fever chills or sweats. No myalgias. Prior similar symptoms: Yes PFSH [facility] Medical History (Updated 11/03/24 @ 22:[address] Yoav Alcaraz, DO) COPD exacerbation Essential tremor Stage 3a chronic kidney disease (CKD) Diabetes mellitus, type 2 CAD (coronary artery disease) History of CVA (cerebrovascular accident) Tobacco use Hyperlipidemia COPD (chronic obstructive pulmonary disease) Hypertension Home Medications ?Medication ?Instructions ?Recorded ?Last Taken ?Type clopidogrel 75 mg tablet 75 mg PO DAILY Check with pr imary 03/24/16 Unknown History doctor metoprolol tartrate 50 mg tablet 50 mg PO BID Check wi primary 03/24/16 12/10/22 History doctor amlodipine 5 mg tablet 5 mg PO DAILY Check with daniella nona 12/11/22 12/10/22 History doctor sertraline 100 mg tablet 100 mg PO DAILY Check with p dasha 12/11/22 12/10/22 History doctor albuterol sulfate 2.5 mg/3 mL 2.5 mg (3 mL) inhalation Q2H PRN 12/17/22 12/10/22 Rx (0.083 %) solution for nebulization PRN shortness of b reath or wheezing #1 mL ipratropium 0.5 mg-albuterol 3 mg 3 ml inhalation 4X/D AY #120 mL 12/17/22 Unknown Rx (2.5 mg base)/3 mL nebulization soln albuterol sulfate 90 mcg/actuation 2 puff inhalation Q 4H PRN PRN 11/03/24 Unkn own History aerosol inhaler wheezing atorvastatin 40 mg tablet 40 mg PO QHS 11/03/24 Unknow n History fluticasone fur. 100 mcg-umeclid 1 ea inhalation DAILY 11/03/24 Unknown History 62.5 mcg-vilant 25 mcg inhalat.powder (Trelegy Ellipta) fluticasone propionate 50 1 spray intranasal BID 11/03 Unknown History mcg/actuation nasal spray,suspension metformin 500 mg tablet 500 mg PO BID 11/03/24 Unkno wn History Allergy/AdvReac Type Severity Reaction Status Date / Time acetaminophen (From Tylenol) Allergy Unknown Verified 11/03/24 17:30 morphine Allergy Other Verified 11/03/24 17:30 oyster extract Allergy Unknown Verified 11/03/24 17:30 lisinopril AdvReac Other Verified 11/03/24 17:30 Family History Mother Cancer Brain cancer, unclear type. Son Cancer Youngest son, metastatic testicular cancer. Father Heart disease Hypertension CVA (cerebral vascular accident) Surgical History S/P appendectomy H/O right inguinal hernia repair S/P bilateral foot surgery S/P triple vessel bypass H/O heart artery stent Social History (Updated 11/03/24 @ 22:22 by Shadia Leon) household members: spouse current occupational status: retired Smoking Status: Current every day smoker tobacco type: cigarettes how long ago did patient quit smoking: Smoked since 1967, up to 1 ppd, recent down to 1 pk/4-5 days. alcohol intake: current alcohol intake frequency: holidays/special occasions only substance use type: does not use ROS ROS ED Constitutional Constitutional ED: Denies chills, fever(s) or sweats ENT ENT ED: Denies sore throat Cardiovascular Cardiovascular: Denies chest pain, leg edema, palpitations or racing heartbeat Respiratory/Chest Respiratory/Chest: Reports dyspnea; Denies cough or dyspnea on exertion Gastrointestinal Gastrointestinal: Denies abdominal pain, diarrhea, nausea or vomiting Genitourinary Genitourinary ED: Denies dysuria, hematuria or urinary frequency Musculoskeletal Musculoskeletal: Denies back pain, extremity pain or neck pain Integumentary Denies rash or wounds Neurologic Neurologic: Denies headache(s), paresthesias or weakness EXAM Physical Exam Const Vital Signs: 11/03/24 17:31 11/03/24 18:16 11/03/24 18:17 Temperature 98.9 F 98 F Temperature Source Oral Temporal Pulse Rate 93 95 Respiratory Rate 18 35 H Respiratory Effort Respiratory Depth Respiratory Pattern Blood Pressure 142/98 H 118/72 Blood Pressure Mean 112 87 Pulse Ox 95 88 95 Oxygen Delivery Method Nasal Cannula Nasal Cannula Nasal Cannula Oxygen Flow Rate (L/min) 4 4 6 11/03/24 18:17 11/03/24 18:19 11/03/24 18:21 Temperature Temperature Source Pulse Rate Respiratory Rate 22 H Respiratory Effort Short of Breath Labored Respiratory Depth Deep Respiratory Pattern Blood Pressure Blood Pressure Mean Pulse Ox 100 98 Oxygen Delivery Method Nasal Cannula Nasal Cannula Nasal Cannula Oxygen Flow Rate (L/min) 6 6 5 11/03/24 18:26 11/03/24 18:42 11/03/24 18:46 Temperature Temperature Source Pulse Rate 89 94 Respiratory Rate 26 H 28 H Respiratory Effort Respiratory Depth Respiratory Pattern Tachypnea Blood Pressure 136/76 H Blood Pressure Mean 96 Pulse Ox 96 95 Oxygen Delivery Method Nasal Cannula Nasal Cannula Oxygen Flow Rate (L/min) 4 4 11/03/24 19:00 11/03/24 20:00 11/03/24 20:10 Temperature 98 F 97.2 F L Temperature Source Temporal Temporal Pulse Rate 97 94 Respiratory Rate 33 H 22 H Respiratory Effort Respiratory Depth Respiratory Pattern Blood Pressure 144/78 H 143/67 H Blood Pressure Mean 100 92 Pulse Ox 92 92 85 Oxygen Delivery Method Nasal Cannula Nasal Cannula Nasal Cannula Oxygen Flow Rate (L/min) 4 4 4 11/03/24 20:15 11/03/24 20:32 11/03/24 20:40 Temperature Temperature Source Pulse Rate Respiratory Rate Respiratory Effort Respiratory Depth Respiratory Pattern Blood Pressure Blood Pressure Mean Pulse Ox 98 94 86 Oxygen Delivery Method Nasal Cannula Nasal Cannula Nasal Cannula Oxygen Flow Rate (L/min) 5 4 4 11/03/24 20:44 11/03/24 21:00 Temperature 98.2 F Temperature Source Temporal Pulse Rate 95 Respiratory Rate 38 H Respiratory Effort Respiratory Depth Respiratory Pattern Blood Pressure 159/80 H Blood Pressure Mean 106 Pulse Ox 89 94 Oxygen Delivery Method Nasal Cannula Nasal Cannula Oxygen Flow Rate (L/min) 5 5 Positive well nourished and well developed Constitutional Narrative: Speaking in short sentences, nontoxic. General Appearance ED: well developed HEENT Reports moist mucous membranes normocephalic and atraumatic Eyes General Eye ED: Yes normal appearance of both eyes Neck full ROM Chest Wall Chest: Negative for tenderness Resp Resp Narrative: Bilateral expiratory wheezing noted. Effort and Inspection: symmetric chest movement; Negative for respiratory distress Cardio regular rate, regular rhythm and no murmurs Peripheral Pulses: pulses 2+ throughout GI normal to inspection, nondistended, normoactive bowel sounds and non-tender Palpation: Negative for guarding or rebound tenderness present Extremity normal to inspection General Extremety ED: Negative for edema or tenderness General Extremity: Negative for edema Neuro oriented x3 and no sensory deficits noted Sensorium / Orientation: awake and alert Skin no rashes or lesions noted and no wounds MDM MDM MDM Narrative Medical decision making narrative: Interventions / MDM: Differential diagnosis: Aspiration pneumonia, COPD exacerbation, hypoxia Diagnosis considered but do not suspect: N/A My EKG interpretation: Sinus rhythm 85, no ST changes. T wave version leads IIIand aVF. Similar findings November 2022. Imaging independently reviewed and interpreted by myself: 1 view chest x-ray: Pneumonia findings right bilateral more prominent on the right. External documents reviewed: N/A Test considered but not ordered:N/A ED course: Patient speaking short sentences with expiratory wheezing. Diabetic history. IV was established. DuoNeb treatment Solu-Medrol 60 mg IV ordered. Basic labs, EKG chronic findings. X-ray ordered for further evaluation. 2034: X-ray concerning pneumonia white count 12.7. Creatinine 1.51. Last creatinine 1.26. Nursing reported had a coughing episode oxygen dropped and 84%he is increased to 5 L. Further discussion, daughter reports she gave him waterwhich causes coughing episodes. He states he has been having these similar events more recently. Concerning for aspiration he will be given antibiotics Zosyn for coverage for this. I will discuss with hospitalist service for admission. I discussed with Dr. Beasley for admission. Re-evaluation: stable Disposition discussed with patient/family/significant other: Patient and daughter Case discussed with consulting clinician: Hospitalist This note was generated with [email or web address] dictation software. It may contain incorrectwords, spelling, and punctuation that were not noted in checking the note beforesigning. Lab Data Attestation: I reviewed the patient's lab results. Labs: Laboratory Results - last 24 hr 11/03/24 17:15 WBC 12.7 H RBC 3.08 L Hgb 10.1 L Hct 31.9 L MCV 103.6 H MCH 32.8 H MCHC 31.7 L RDW Std Deviation 54.4 H RDW Coeff of Christine 14.5 Plt Count 204 MPV 10.1 Immature Gran % (Auto) 0.200 Neut % (Auto) 88.5 H Lymph % (Auto) 5.6 L Appling % (Auto) 5.4 Eos % (Auto) 0.2 Baso % (Auto) 0.1 Absolute Neuts (auto) 11.2 H Absolute Lymphs (auto) 0.71 L Nucleated RBC % 0 Sodium 136 Potassium 4.8 Chloride 96 L Carbon Dioxide 29.8 Anion Gap 11 BUN 25 H Creatinine 1.51 H Estim Creat Clear Calc 49.24 L Est GFR (MDRD) Non-Af 48 L BUN/Creatinine Ratio 16.3 Glucose 201 H Calcium 9.2 Magnesium 1.8 Radiography Diagnostic Testing: Clinical Impression(s) from Imaging Studies Chest X-Ray 11/03/24 19:30 IMPRESSION: Findings concerning for pneumonia. Reading Location: [facility] Discharge Plan Dx/Rx/DC Orders Clinical Impression: Aspiration pneumonia, Diabetes mellitus, type 2, COPD exacerbation, Hypoxia Disposition Disposition: [facility] Discharge Date/Time: 11/03/24 21:43 What to do if you have Problems For any increased pain, shortness of breath, bleeding, nausea or vomiting, chestpain, or any unexpected problems, contact your Primary Care Provider. Call [facility] ([phone]) or report to the closest Emergency Room. Call 911 if necessary. 11/03/242241 <Electronically signed by Yoav Ledezma> Cosigner Signature (if applicable): CC: Dr. Royce Carroll MD ~ Signed [facility] Work Phone: [phone]) 120-911704-09-2025 Evaluation note* Diagnosis Onset Date Resolution Status Admit Date Aspiration pneumonia acute Apri l 2024 9:18pm Chest pain acute November 03 9:18pm Diabetes mellitus, type 2 acute November 03, 2024 9:18pm Elevated troponin acute November 032024 9:18pm Essential hypertension acute Ap ril 2024 9:18pm LV dysfunction acute November 03, 2024 9:18pm Macrocytic anemia acute November 032024 9:18pm Respiratory insufficiency acute November 03, 2024 9:18pm COPD exacerbation chronic November 032024 9:18pm Coronary artery disease chronic A pril 2024 9:18pm History of TIA (transient ischemic attack) resolved November 03, 2024 9:18pm [facility] Work Phone: [phone]) 992-509704-09-2025 Evaluation note* Diagnosis Onset Date Resolution Status Admit Date History of TIA (transient ischemic attack) resolved November 03, 2024 9:18pm Aspiration pneumonia inactive Apri l 2024 9:18pm Chest pain inactive November 03 9:18pm COPD exacerbation inactive November 032024 9:18pm Coronary artery disease inactive A pril 2024 9:18pm Diabetes mellitus, type 2 inactive November 03, 2024 9:18pm Elevated troponin inactive November 032024 9:18pm Essential hypertension inactive Ap ril 2024 9:18pm LV dysfunction inactive November 03, 2024 9:18pm Macrocytic anemia inactive November 032024 9:18pm Respiratory insufficiency inactive November 03, 2024 9:18pm [facility] Work Phone: [phone]) 531-219104-09-2025 Discharge summary [facility] Medical Records Department [address] [place] [id number] Emergency Department Summary 11/03/24 MR#: [id number] Acct: [id number] Name: KAM GREENBERG Rep #:[id number] : 1950 74 From: Yoav Ledezma PCP: Dr. Royce Carroll MD Status:A DM IN Location: [address] History of Present Illness Chief Complaint: Shortness of Breath Informant: patient and family Narrative Narrative: Brought in by EMS worsening dyspnea last few weeks. History COPD chronic 4 L oxygen with tobacco history. Denies cough. Does have inhalers at home. Diabetes on oral medicines. Chest tightness due to dyspnea. Patient on aspirintherapy. Does not check his sugars frequently. Cannot recall his last glucose. No fever chills or sweats. No myalgias. Prior similar symptoms: Yes PFSH [facility] Medical History (Updated 11/03/24 @ 22:[address] Yoav Alcaraz DO) COPD exacerbation Essential tremor Stage 3a chronic kidney disease (CKD) Diabetes mellitus, type 2 CAD (coronary artery disease) History of CVA (cerebrovascular accident) Tobacco use Hyperlipidemia COPD (chronic obstructive pulmonary disease) Hypertension Home Medications ?Medication ?Instructions ?Recorded ?Last Taken ?Type clopidogrel 75 mg tablet 75 mg PO DAILY Check with pr imary 03/24/16 Unknown History doctor metoprolol tartrate 50 mg tablet 50 mg PO BID Check wi th primary 03/24/16 12/10/22 History doctor amlodipine 5 mg tablet 5 mg PO DAILY Check with daniella nona 12/11/22 12/10/22 History doctor sertraline 100 mg tablet 100 mg PO DAILY Check with p dasha 12/11/22 12/10/22 History doctor albuterol sulfate 2.5 mg/3 mL 2.5 mg (3 mL) inhalation Q2H PRN 12/17/22 12/10/22 Rx (0.083 %) solution for nebulization PRN shortness of b reath or wheezing #1 mL ipratropium 0.5 mg-albuterol 3 mg 3 ml inhalation 4X/D AY #120 mL 12/17/22 Unknown Rx (2.5 mg base)/3 mL nebulization soln albuterol sulfate 90 mcg/actuation 2 puff inhalation Q 4H PRN PRN 11/03/24 Unkn own History aerosol inhaler wheezing atorvastatin 40 mg tablet 40 mg PO QHS 11/03/24 Unknow n History fluticasone fur. 100 mcg-umeclid 1 ea inhalation DAILY 11/03/24 Unknown History 62.5 mcg-vilant 25 mcg inhalat.powder (Trelegy Ellipta) fluticasone propionate 50 1 spray intranasal BID 11/03 Unknown History mcg/actuation nasal spray,suspension metformin 500 mg tablet 500 mg PO BID 11/03/24 Unkno wn History Allergy/AdvReac Type Severity Reaction Status Date / Time acetaminophen (From Tylenol) Allergy Unknown Verified 11/03/24 17:30 morphine Allergy Other Verified 11/03/24 17:30 oyster extract Allergy Unknown Verified 11/03/24 17:30 lisinopril AdvReac Other Verified 11/03/24 17:30 Family History Mother Cancer Brain cancer, unclear type. Son Cancer Youngest son, metastatic testicular cancer. Father Heart disease Hypertension CVA (cerebral vascular accident) Surgical History S/P appendectomy H/O right inguinal hernia repair S/P bilateral foot surgery S/P triple vessel bypass H/O heart artery stent Social History (Updated 11/03/24 @ 22:22 by Shadia Leon) household members: spouse current occupational status: retired Smoking Status: Current every day smoker tobacco type: cigarettes how long ago did patient quit smoking: Smoked since 1967, up to 1 ppd, recent down to 1 pk/4-5 days. alcohol intake: current alcohol intake frequency: holidays/special occasions only substance use type: does not use ROS ROS ED Constitutional Constitutional ED: Denies chills, fever(s) or sweats ENT ENT ED: Denies sore throat Cardiovascular Cardiovascular: Denies chest pain, leg edema, palpitations or racing heartbeat Respiratory/Chest Respiratory/Chest: Reports dyspnea; Denies cough or dyspnea on exertion Gastrointestinal Gastrointestinal: Denies abdominal pain, diarrhea, nausea or vomiting Genitourinary Genitourinary ED: Denies dysuria, hematuria or urinary frequency Musculoskeletal Musculoskeletal: Denies back pain, extremity pain or neck pain Integumentary Denies rash or wounds Neurologic Neurologic: Denies headache(s), paresthesias or weakness EXAM Physical Exam Const Vital Signs: 11/03/24 17:31 11/03/24 18:16 11/03/24 18:17 Temperature 98.9 F 98 F Temperature Source Oral Temporal Pulse Rate 93 95 Respiratory Rate 18 35 H Respiratory Effort Respiratory Depth Respiratory Pattern Blood Pressure 142/98 H 118/72 Blood Pressure Mean 112 87 Pulse Ox 95 88 95 Oxygen Delivery Method Nasal Cannula Nasal Cannula Nasal Cannula Oxygen Flow Rate (L/min) 4 4 6 11/03/24 18:17 11/03/24 18:19 11/03/24 18:21 Temperature Temperature Source Pulse Rate Respiratory Rate 22 H Respiratory Effort Short of Breath Labored Respiratory Depth Deep Respiratory Pattern Blood Pressure Blood Pressure Mean Pulse Ox 100 98 Oxygen Delivery Method Nasal Cannula Nasal Cannula Nasal Cannula Oxygen Flow Rate (L/min) 6 6 5 11/03/24 18:26 11/03/24 18:42 11/03/24 18:46 Temperature Temperature Source Pulse Rate 89 94 Respiratory Rate 26 H 28 H Respiratory Effort Respiratory Depth Respiratory Pattern Tachypnea Blood Pressure 136/76 H Blood Pressure Mean 96 Pulse Ox 96 95 Oxygen Delivery Method Nasal Cannula Nasal Cannula Oxygen Flow Rate (L/min) 4 4 11/03/24 19:00 11/03/24 20:00 11/03/24 20:10 Temperature 98 F 97.2 F L Temperature Source Temporal Temporal Pulse Rate 97 94 Respiratory Rate 33 H 22 H Respiratory Effort Respiratory Depth Respiratory Pattern Blood Pressure 144/78 H 143/67 H Blood Pressure Mean 100 92 Pulse Ox 92 92 85 Oxygen Delivery Method Nasal Cannula Nasal Cannula Nasal Cannula Oxygen Flow Rate (L/min) 4 4 4 11/03/24 20:15 11/03/24 20:32 11/03/24 20:40 Temperature Temperature Source Pulse Rate Respiratory Rate Respiratory Effort Respiratory Depth Respiratory Pattern Blood Pressure Blood Pressure Mean Pulse Ox 98 94 86 Oxygen Delivery Method Nasal Cannula Nasal Cannula Nasal Cannula Oxygen Flow Rate (L/min) 5 4 4 11/03/24 20:44 11/03/24 21:00 Temperature 98.2 F Temperature Source Temporal Pulse Rate 95 Respiratory Rate 38 H Respiratory Effort Respiratory Depth Respiratory Pattern Blood Pressure 159/80 H Blood Pressure Mean 106 Pulse Ox 89 94 Oxygen Delivery Method Nasal Cannula Nasal Cannula Oxygen Flow Rate (L/min) 5 5 Positive well nourished and well developed Constitutional Narrative: Speaking in short sentences, nontoxic. General Appearance ED: well developed HEENT Reports moist mucous membranes normocephalic and atraumatic Eyes General Eye ED: Yes normal appearance of both eyes Neck full ROM Chest Wall Chest: Negative for tenderness Resp Resp Narrative: Bilateral expiratory wheezing noted. Effort and Inspection: symmetric chest movement; Negative for respiratory distress Cardio regular rate, regular rhythm and no murmurs Peripheral Pulses: pulses 2+ throughout GI normal to inspection, nondistended, normoactive bowel sounds and non-tender Palpation: Negative for guarding or rebound tenderness present Extremity normal to inspection General Extremety ED: Negative for edema or tenderness General Extremity: Negative for edema Neuro oriented x3 and no sensory deficits noted Sensorium / Orientation: awake and alert Skin no rashes or lesions noted and no wounds MDM MDM MDM Narrative Medical decision making narrative: Interventions / MDM: Differential diagnosis: Aspiration pneumonia, COPD exacerbation, hypoxia Diagnosis considered but do not suspect: N/A My EKG interpretation: Sinus rhythm 85, no ST changes. T wave version leads IIIand aVF. Similar findings November 2022. Imaging independently reviewed and interpreted by myself: 1 view chest x-ray: Pneumonia findings right bilateral more prominent on the right. External documents reviewed: N/A Test considered but not ordered:N/A ED course: Patient speaking short sentences with expiratory wheezing. Diabetic history. IV was established. DuoNeb treatment Solu-Medrol 60 mg IV ordered. Basic labs, EKG chronic findings. X-ray ordered for further evaluation. 2034: X-ray concerning pneumonia white count 12.7. Creatinine 1.51. Last creatinine 1.26. Nursing reported had a coughing episode oxygen dropped and 84%he is increased to 5 L. Further discussion, daughter reports she gave him waterwhich causes coughing episodes. He states he has been having these similar events more recently. Concerning for aspiration he will be given antibiotics Zosyn for coverage for this. I will discuss with hospitalist service for admission. I discussed with Dr. Beasley for admission. Re-evaluation: stable Disposition discussed with patient/family/significant other: Patient and daughter Case discussed with consulting clinician: Hospitalist This note was generated with [email or web address] dictation software. It may contain incorrectwords, spelling, and punctuation that were not noted in checking the note beforesigning. Lab Data Attestation: I reviewed the patient's lab results. Labs: Laboratory Results - last 24 hr 11/03/24 17:15 WBC 12.7 H RBC 3.08 L Hgb 10.1 L Hct 31.9 L MCV 103.6 H MCH 32.8 H MCHC 31.7 L RDW Std Deviation 54.4 H RDW Coeff of Christine 14.5 Plt Count 204 MPV 10.1 Immature Gran % (Auto) 0.200 Neut % (Auto) 88.5 H Lymph % (Auto) 5.6 L Appling % (Auto) 5.4 Eos % (Auto) 0.2 Baso % (Auto) 0.1 Absolute Neuts (auto) 11.2 H Absolute Lymphs (auto) 0.71 L Nucleated RBC % 0 Sodium 136 Potassium 4.8 Chloride 96 L Carbon Dioxide 29.8 Anion Gap 11 BUN 25 H Creatinine 1.51 H Estim Creat Clear Calc 49.24 L Est GFR (MDRD) Non-Af 48 L BUN/Creatinine Ratio 16.3 Glucose 201 H Calcium 9.2 Magnesium 1.8 Radiography Diagnostic Testing: Clinical Impression(s) from Imaging Studies Chest X-Ray 11/03/24 19:30 IMPRESSION: Findings concerning for pneumonia. Reading Location: [facility] Discharge Plan Dx/Rx/DC Orders Clinical Impression: Aspiration pneumonia, Diabetes mellitus, type 2, COPD exacerbation, Hypoxia Disposition Disposition: Acute Care Hospital [facility] Discharge Date/Time: 11/03/24 21:43 What to do if you have Problems For any increased pain, shortness of breath, bleeding, nausea or vomiting, chestpain, or any unexpected problems, contact your Primary Care Provider. Call [facility] ([phone]) or report tothe closest Emergency Room. Call 911 if necessary. 11/03/242 Cosigner Signature (if applicable): CC: Dr. Royce Carroll MD ~ Signed [facility]04-09-2025 Radiology Diagnostic study note [facility] Imaging Services [address] [place] [address] Chest 1 View (Portable) MR#: [id number] Acct: [id number] Name: KAM GREENBERG Rep #: [id number] : 1950 M 74 From: Priti Cruz MD PCP: Dr. Royce Carroll MD Status: R ER Study:Chest 1 View (Portable) Date of Exam: 11/03/24 Exam# [id number] Ordering Dr: Yoav Alcaraz DO PROCEDURE: CHEST 1 VIEW (PORTABLE) 11/03/2024 REASON FOR EXAM: SOB TECHNIQUE: Frontal view of the chest. COMPARISON: None FINDINGS: Hardware: Status post median sternotomy. Heart: The heart size is normal. Lungs: Upper lobe emphysema. Small bilateral pleural effusions/scarring. Mid to lower lungs and bilateral airspace opacities, more prominent on the right. No pneumothorax. Bones: Degenerative changes are identified within the thoracic spine. Other: RAD/Chest 1 View (Portable) IMPRESSION: Findings concerning for pneumonia. Reading Location: [facility] CC: Dr. Yoav Alcaraz DO; Dr. Royce Carroll MD ~ Lumber Sticker: Signed [facility]04-09-2025 Telephone encounter Note* Telephone Encounter - Paz Sanabriaara, JOE - 11/03/2024 4:44 PM EDT Called and spoke with pt again. We had spoken with pt yesterday for chest pain and recommendation was for pt to go to ER. He refused and an appt was made for him to see Dr. Carroll today at 220 pm.Pt cancelled the appt because he couldn't come in due to he couldn't breathe. While speaking with pt, noted severe SOB. Pt took his BP and it is 126/72 and pulse 91. Had pt get his oxygen sensor. Pt states it hasn't been working well. States the oxygen level has been reading over 100 in the last couple of days. Attempted to explain that the oxygen level only goes up to 100 so that would have beenhis pulse. Pt put it on and states his pulse is fluctuating between 95-97 and the oxygen level is 88. Had pt take use his pulse ox later in the conversation after walking and he states pulse was 80 and oxygen level was 97-101. Pt unable to read the letters beside. After talking with both pt andhis and explaining with the chest pain he has been having and the severe shortness of breath, he needs to call 911. Spoke to Mis who confirms she called 911. Reason for Disposition SEVERE difficulty breathing (e.g., struggling for each breath, speaks in single words) Answer Assessment - Initial Assessment Questions 1. RESPIRATORY STATUS: Pt sounds very SOB, speaking in one to two word sentences. After walking, breathing got much worse. Hearing audible wheezing. 2. ONSET: last two days 3. PATTERN constant 4. SEVERITY:moderate to severe - MILD: No SOB at rest, mild SOB with walking, speaks normally in sentences, can lie down, no retractions, pulse < 100. - MODERATE: SOB at rest, SOB with minimal exertion and prefers to sit, cannot lie down flat, speaksin phrases, mild retractions, audible wheezing, pulse 100 to 120. - SEVERE: Very SOB at rest, speaks in single words, struggling to breathe, sitting hunched forward,retractions, pulse > 120 5. RECURRENT SYMPTOM: Yes pt has COPD 6. CARDIAC HISTORY: hx of CABG 7. LUNG HISTORY: COPD 8. CAUSE: exacerbation of COPD possibly 9. OTHER SYMPTOMS: chest pain off and on since yesterday. 10. O2 SATURATION MONITOR: see note Protocols used: Breathing [id number] [facility]04-09-2025 Miscellaneous Notes* Telephone Encounter - Beatris Sanabria RN - 11/03/2024 4:44 PM EDT Called and spoke with pt again. We had spoken with pt yesterday for chest pain and recommendation was for pt to go to ER. He refused and an appt was made for him to see Dr. Carroll today at 220 pm.Pt cancelled the appt because he couldn't come in due to he couldn't breathe. While speaking with pt, noted severe SOB. Pt took his BP and it is 126/72 and pulse 91. Had pt get his oxygen sensor. Pt states it hasn't been working well. States the oxygen level has been reading over 100 in the last couple of days. Attempted to explain that the oxygen level only goes up to 100 so that would have beenhis pulse. Pt put it on and states his pulse is fluctuating between 95-97 and the oxygen level is 88. Had pt take use his pulse ox later in the conversation after walking and he states pulse was 80 and oxygen level was 97-101. Pt unable to read the letters beside. After talking with both pt andhis and explaining with the chest pain he has been having and the severe shortness of breath, he needs to call 911. Spoke to Mis who confirms she called 911. Reason for Disposition SEVERE difficulty breathing (e.g., struggling for each breath, speaks in single words) Answer Assessment - Initial Assessment Questions 1. RESPIRATORY STATUS: Pt sounds very SOB, speaking in one to two word sentences. After walking, breathing got much worse. Hearing audible wheezing. 2. ONSET: last two days 3. PATTERN constant 4. SEVERITY:moderate to severe - MILD: No SOB at rest, mild SOB with walking, speaks normally in sentences, can lie down, no retractions, pulse < 100. - MODERATE: SOB at rest, SOB with minimal exertion and prefers to sit, cannot lie down flat, speaksin phrases, mild retractions, audible wheezing, pulse 100 to 120. - SEVERE: Very SOB at rest, speaks in single words, struggling to breathe, sitting hunched forward,retractions, pulse > 120 5. RECURRENT SYMPTOM: Yes pt has COPD 6. CARDIAC HISTORY: hx of CABG 7. LUNG HISTORY: COPD 8. CAUSE: exacerbation of COPD possibly 9. OTHER SYMPTOMS: chest pain off and on since yesterday. 10. O2 SATURATION MONITOR: see note Protocols used: Breathing [id number] * Telephone Encounter - Beatris Sanabria RN - 11/03/2024 3:08 PM EDT Attempted to contact pt again for triage assessment. No answer and pt's voicemail is full. Attempted both numbers listed for his and both numbers appear to not be in service. * Telephone Encounter - Bozena Eng RN - 11/03/2024 2:29 PM EDT Attempted to contact patient again. No answer. VM box remains full. Bozena Eng RN * Telephone Encounter - Bozena Eng RN - 11/03/2024 2:25 PM EDT Attempted to contact patient. No answer. Unable to leave due to mailbox is full. Attempted to contact pt's 's cell number and message states number is no longer in service. Bozena Eng RN * Telephone Encounter - Bozena Eng RN - 11/03/2024 2:09 PM EDT Attempted to contact patient. He states he is completing a nebulizer treatment and to call back in 10 minutes. Bozena Eng RN documented in [facility] Telephone encounter Note * Telephone Encounter - Beatris Sanabria RN - 11/03/2024 3:08 PM EDT Attempted to contact pt again for triage assessment. No answer and pt's voicemail is full. Attempted both numbers listed for his and both numbers appear to not be in service. [facility]04-09-2025 Telephone encounter Note* Telephone Encounter - Bozena Eng RN - 11/03/2024 2:29 PM EDT Attempted to contact patient again. No answer. VM box remains full. Bozena Eng RN [facility]04-09-2025 Telephone encounter Note* Telephone Encounter - Bozena Eng RN - 11/03/2024 2:25 PM EDT Attempted to contact patient. No answer. Unable to leave VM due to mailbox is full. Attempted to contact pt's 's cell number and message states number is no longer in service. Bozena Eng RN [facility]04-09-2025 Telephone encounter Note* Telephone Encounter - Bozena Eng RN - 11/03/2024 2:09 PM EDT Attempted to contact patient. He states he is completing a nebulizer treatment and to call back in 10 minutes. Bozena Eng RN [facility]04-09-2025 Telephone encounter Note* Telephone Encounter - Royce Carroll MD - 11/03/2024 8:46 AM EDT Noted patient declined ER recommendation. I'll see him this PM. [facility]04-09-2025 Miscellaneous Notes* Telephone Encounter - Royce Carroll MD - 11/03/2024 8:46 AM EDT Noted patient declined ER recommendation. I'll see him this PM. * Telephone Encounter - Bozena Eng RN - 11/02/2024 1:13 PM EDT Triage Protocol Advises: ER now. Patient declining to go to ER. Pt agreeable to make appt with PCP for tomorrow at 2:20pm, if provider agreeable to this. Pt declining same day appts today. Advised pt to proceed to nearest ER for any severe sx's, as discussed and pt voiced understanding. Pt lives with his who is able to assist him at their home. Reason for Disposition [1] Chest pain lasts > 5 minutes AND [2] age > 44 Answer Assessment - Initial Assessment Questions Patient reports a dull ache in his chest with inspiration only since last night while sitting in his kitchen. Reports it has lessened since last night. Reports he slept on and off last night but doesnot feel more SOB when lying down. Uses Oxygen 3-4 LPM. Reports he smoked one cigarette today. Denies leg swelling. Occasional nonproductive cough. States his SpO2 is at 100. States last night it read over 100 and his heart rate was 90. This nursecautioned patient that he may have read his pulse oximeter incorrectly and his SpO2 may have been 90% and his heart rate may have been 100- 105. . Pt adamant that he is not reading the pulse oximeter incorrectly. 1. LOCATION: center of chest 2. RADIATION:no 3. ONSET: last night 4. PATTERN: comes and goes with inhalation 5. DURATION: hours 6. SEVERITY: mild 7. CARDIAC RISK FACTORS: yes, see history 8. PULMONARY RISK FACTORS: yes, see history 9. CAUSE: Pt not certain 10. OTHER SYMPTOMS: Denies dizziness, nausea, vomiting, sweating, fever. Protocols used: Chest [id number] documented in this encounterOur [facility] Telephone encounter Note * Telephone Encounter - Bozena Eng RN - 11/02/2024 1:13 PM EDT Triage Protocol Advises: ER now. Patient declining to go to ER. Pt agreeable to make appt with PCP for tomorrow at 2:20pm, if provider agreeable to this. Pt declining same day appts today. Advised pt to proceed to nearest ER for any severe sx's, as discussed and pt voiced understanding. Pt lives with his who is able to assist him at their home. Reason for Disposition [1] Chest pain lasts > 5 minutes AND [2] age > 44 Answer Assessment - Initial Assessment Questions Patient reports a dull ache in his chest with inspiration only since last night while sitting in his kitchen. Reports it has lessened since last night. Reports he slept on and off last night but doesnot feel more SOB when lying down. Uses Oxygen 3-4 LPM. Reports he smoked one cigarette today. Denies leg swelling. Occasional nonproductive cough. States his SpO2 is at 100. States last night it read over 100 and his heart rate was 90. This nursecautioned patient that he may have read his pulse oximeter incorrectly and his SpO2 may have been 90% and his heart rate may have been 100- 105. . Pt adamant that he is not reading the pulse oximeter incorrectly. 1. LOCATION: center of chest 2. RADIATION:no 3. ONSET: last night 4. PATTERN: comes and goes with inhalation 5. DURATION: hours 6. SEVERITY: mild 7. CARDIAC RISK FACTORS: yes, see history 8. PULMONARY RISK FACTORS: yes, see history 9. CAUSE: Pt not certain 10. OTHER SYMPTOMS: Denies dizziness, nausea, vomiting, sweating, fever. Protocols used: Chest [id number] [facility]04-08-2025 Telephone encounter Note* Telephone Encounter - Elena Walters LPN - 11/02/2024 12:45 PM EDT Pt notified of 's message. Pt now reports that he has a dull pain in his chest whenever he breathes in. Requesting RN to triage pt. Elena Walters LPN [facility]04-08-2025 Miscellaneous Notes* Telephone Encounter - Elena Walters LPN - 11/02/2024 12:45 PM EDT Pt notified of 's message. Pt now reports that he has a dull pain in his chest whenever he breathes in. Requesting RN to triage pt. Elena Walters LPN * Telephone Encounter - Royce Carroll MD - 11/02/2024 12:33 PM EDT He needs his pulse oximeter checked. 100 is the typical highest reading. Stay on 4 LPM. * Telephone Encounter - Elena Walters LPN - 11/02/2024 12:14 PM EDT Pt calls to report that he is on 4L of O2 and PO is bouncing from 101-105. Pt reports he first recognized this last night. Pt reports he as some SOB but not more than usual. Pt is asking if he needs to turn O2 down to 3L. Please review and advise. Elena Walters LPN documented in this encounterOur [facility]04-[facility] Telephone encounter Note * Telephone Encounter - Royce Carroll MD - 11/02/2024 12:33 PM EDT He needs his pulse oximeter checked. 100 is the typical highest reading. Stay on 4 LPM. [facility]04-08-2025 Telephone encounter Note* Telephone Encounter - Elena Walters LPN - 11/02/2024 12:14 PM EDT Pt calls to report that he is on 4L of O2 and PO is bouncing from 101-105. Pt reports he first recognized this last night. Pt reports he as some SOB but not more than usual. Pt is asking if he needs to turn O2 down to 3L. Please review and advise. Elena Walters LPN [facility]04-01-2025 Telephone encounter Note* Telephone Encounter - Gianni Velazquez APRN.CNP - 10/26/2024 4:00 PM EDT Attempted to call patient, but mailbox is full. [employer] message sent. Gianni Velazquez APRN.JULIO [facility]03-31-2025 Telephone encounter Note* Telephone Encounter - Deb Forbes - 10/25/2024 12:21 PM EDT Prescription Refill Information The patient has been identified by name and date of : Yes Caregiver verified no other encounters exist for this prescription request: Yes Caregiver confirmed with patient/requestor that no other refills are due, in the near future, with this provider at this time: Yes NOTE: patient is completely out of this nebulizer solution please send to [facility] The last office visit in the department: 09/27/2024 Does the patient have a future office visit with this provider/department: Yes Requested Prescriptions Pending Prescriptions Disp Refills ipratropium-albuterol (DUONEB) 0.5 mg-3 mg(2.5 mg base)/3 mL nebu 90 mL 5 Sig: Inhale 3 mL as instructed four times daily. Deb Padilla October 25, 2024 12:22 PM [facility]03-31-2025 Miscellaneous Notes* Telephone Encounter - Deb Forbes - 10/25/2024 12:21 PM EDT Prescription Refill Information The patient has been identified by name and date of : Yes Caregiver verified no other encounters exist for this prescription request: Yes Caregiver confirmed with patient/requestor that no other refills are due, in the near future, with this provider at this time: Yes NOTE: patient is completely out of this nebulizer solution please send to [facility] The last office visit in the department: 09/27/2024 Does the patient have a future office visit with this provider/department: Yes Requested Prescriptions Pending Prescriptions Disp Refills ipratropium-albuterol (DUONEB) 0.5 mg-3 mg(2.5 mg base)/3 mL nebu 90 mL 5 Sig: Inhale 3 mL as instructed four times daily. Deb Padilla October 25, 2024 12:22 PM documented in this encounterOur [facility] NoteHNO ID: [id number] Author: SERA FINNEY CPhT Service: ? Author Type: Political Research Scientist Type: Progress Notes Filed: 10/25/2024 10:54 Note Text: Patient is identified through a medication adherence outreach initiative based on pharmacy claims data from: [employer] Medication Adherence Category: Statins First Review Attribution Status: Correct Attribution Medication(s) Atorvastatin 40 mg Medication Status per portal/Epic Reconcile Dispense: Filled on time - On or before next fill date Date Filled (MM/DD): 10/23 Day Supply: 90 Medication Status per Profile Review: No issues per profile review Patient appropriate for outreach? No Reason patient not appropriate for outreach:Patient filled on time / no adherence concerns to be addressed Sera Finney CPhT [facility] History of Present illness Narrative* Sera Finney CPhT - 10/25/2024 10:52 AM EDT Patient is identified through a medication adherence outreach initiative based on pharmacy claims data from: [employer] Medication Adherence Category: Statins First Review Attribution Status: Correct Attribution Medication(s) Atorvastatin 40 mg Medication Status per portal/Epic Reconcile Dispense: Filled on time - On or before next fill date Date Filled (MM/DD): 10/23 Day Supply: 90 Medication Status per Profile Review: No issues per profile review Patient appropriate for outreach? No Reason patient not appropriate for outreach:Patient filled on time / no adherence concerns to be addressed Sera Finney CPhT Value [facility] [place] [facility] Team documented in this encounterOur [facility] NotePatient Outreach (PHPOHE) KAM GREENBERG ([id number]) 1950 M Date Time Provider Department 10/25/24 ROYCE CARROLL PHPOHE During your visit today, we recorded the following information about you: Sera Finney CPhT 10/25/2024 10:54 AM Signed Patient is identified through a medication adherence outreach initiative based on pharmacy claims data from: [employer] Medication Adherence Category: Statins First Review Attribution Status: Correct Attribution Medication(s) Atorvastatin 40 mg Medication Status per portal/Epic Reconcile Dispense: Filled on time - On or before next fill date Date Filled (MM/DD): 10/23 Day Supply: 90 Medication Status per Profile Review: No issues per profile review Patient appropriate for outreach? No Reason patient not appropriate for outreach:Patient filled on time / no adherence concerns to be addressed Sera Finney CPhT [facility] Pharmacy Team Allergies As of Date: 10/25/2024 Noted Allergy Reaction LISINOPRIL 11/15/2019 18 - Angioedema MORPHINE 06/07/2008 12 - Shortness of Breath Comments: rapid heart rate OYSTERS 04/01/2017 8 - GI Upset TYLENOL (ACETAMINOPHEN) 10/16/2005 13 - Dystonia Comments: flushed, cold sweats, shakey Date Reviewed: 10/21/2024 Reviewed by: Shell Patten COA - Fully Assessed Reason for Visit: Allied Health Visit [5] Cmt: Medication Adherence Outreach Prescriptions as of 10/25/2024 - amLODIPine (NORVASC) 5 mg tablet Take 1 tablet by mouth once daily. - atorvastatin (LIPITOR) 40 mg tablet Take 1 tablet by mouth daily at bedtime. - clopidogrel (PLAVIX) 75 mg tablet Take 1 tablet by mouth once daily. - fluticasone (FLONASE) 50 mcg/actuation nasal spray Use 1 [place] in each nostril two times a day. - metFORMIN (GLUCOPHAGE) 500 mg tablet Take 1 tablet by mouth two times a day with meals. - metoprolol tartrate, short acting, (LOPRESSOR) 50 mg tablet Take 1 tablet by mouth two times a day. - sertraline (ZOLOFT) 100 mg tablet Take 1 tablet by mouth once daily. - primidone (MYSOLINE) 50 mg tablet Take 1 tablet by mouth two times a day. - ndhquinnvnb-timcczkmv-xlnsqphg (TRELEGY ELLIPTA) 100-62.5-25 mcg inhalation powder Inhale 1 Puff as instructed once daily. - ipratropium-albuterol (DUONEB) 0.5 mg-3 mg(2.5 mg base)/3 mL nebu Inhale 3 mL as instructed four times daily. - blood sugar diagnostic (BLOOD GLUCOSE TEST) test strip Test blood sugar(s) 2 times daily. Dx: Other DM Code E11.41 Insulin: No - albuterol HFA (VENTOLIN HFA) 90 mcg/actuation inhaler Inhale 2 Puffs as instructed every 4 hours as needed for wheezing/shortness of breath. - Blood-Glucose Meter monitoring kit Glucose Meter of Choice - Kit - Dx: Other DM Code E11.49 - saw/vit E/sod miguel/lyc/beta/pyg (PROSTATE HEALTH ORAL) Take 3 tablets by mouth once daily. - multivit with minerals/lutein (MULTI-ISABELLE 50 AND OVER ORAL) Take 1 tablet by mouth once daily. - nitroglycerin sublingual (NITROSTAT) 0.4 mg SL tablet Dissolve 1 tablet under the tongue every 5 minutes as needed. - aspirin, enteric coated (ADULT LOW DOSE ASPIRIN) 81 mg EC tablet Take 1 tablet by mouth once daily. Problem List As Of Date 10/25/2024 Noted Resolved DYSMETABOLIC SYNDROME X [E88.810] 11/07/2005 Esophageal reflux [K21.9] 09/29/2017 Hyperlipemia [E78.5] Coronary atherosclerosis [I25.10] GENERAL OSTEOARTHROSIS [M15.9] 10/16/2005 Type II or unspecified type diabetes mellitus w*10/21/2005 11/22/2013 Peripheral vascular disease (HCC) [I73.9] 11/06/2005 11/13/2020 Degeneration of thoracolumbar intervertebral di*11/06/2005 Essential hypertension [I10] 11/06/2005 Polyneuropathy in diabetes(357.2) (HCC) [E11.4*11/07/2005 11/22/2013 Late effects of CVA (cerebrovascular accident) *03/17/2007 Other acquired deformity of toe [M20.5X9] 03/23/2009 09/29/2017 Dermatophytosis of nail [B35.1] 03/23/2009 09/29/2017 Type 2 diabetes mellitus with diabetic mononeur*08/23/2010 Adhesive capsulitis of shoulder [M75.00] 10/19/2010 11/20/2011 Tobacco use disorder [F17.200] 05/25/2012 05/23/2023 Rhinitis [J31.0] 11/20/2012 Anxiety disorder [F41.9] 01/31/2009 S/P coronary artery stent placement [Z95.5] 06/06/2015 S/P CABG x 3 [Z95.1] 06/06/2015 Essential tremor [G25.0] 11/23/2015 Stenosis of left carotid artery [I65.22] 04/03/2016 Stage 3a chronic kidney disease (HCC) [N18.31] 04/17/2018 Type 2 diabetes mellitus with diabetic peripher*09/18/2020 At risk for falls [Z91.81] 06/29/2021 Lung nodule < 6cm on CT [ICW9766] 10/17/2021 07/04/2022 Abnormality of gait [R26.9] 11/13/2021 Lumbar spondylosis [M47.816] 11/13/2021 01/15/2023 History of stroke [Z86.73] 11/13/2021 01/15/2023 Chronic obstructive pulmonary disease with (acu*12/11/2022 Chronic respiratory failure with hypoxia (HCC) *01/15/2023 09/27/2024 Chronic diastolic CHF (congestive heart failure*01/15/2023 Nuclear scleros (more content not included)...[facility] 10-22-2024 Telephone encounter Note* Telephone Encounter - Gianni Velazquez APRN.CNP - 10/22/2024 4:43 PM EDT Attempt to call patient, but mailbox is full Plan to discuss CT Results Lymph nodes are stable. It looks like there is a new infection/inflammatory opacity or atelectasis.Would like to discuss symptoms. Gianni Velazquez APRN.JULIO October 22, 2024 4:43 PM [facility]03-27-2025 NoteDate of Procedure 10/21/2024. OCT Macula Interpretation Right Eye Normal without fluid. Left Eye Normal without fluid. Interval Change Right Eye Stable. Left Eye Stable.[id number] History of Present illness Narrative* Timothy Allen MD - 10/21/2024 1:00 PM EDT Type 2 Diabetes Mellitus without Diabetic Retinopathy, both eyes Hemoglobin A1C (%) Date Value 09/27/2024 6.4 03/22/2024 6.5 09/19/2023 6.5 04/12/2021 6.8 05/19/2020 6.4 04/08/2019 6.1 Hemoglobin A1C (POCT) (%) Date Value 01/15/2023 7.0 - BP/BS/Lipid control and regular monitoring with exams reviewed Pseudophakia, both eyes - Intraocular lens well-centered - Plan: observe Follow Up: Retina as needed. Continue follow up with Dr. Forman I have confirmed and edited as necessary the relevant HPI, ophthalmic history, ROS, and exam findings as obtained by others. I have seen and examined this patient. I have discussed the case and the management of this patient's care with the Resident, if applicable. I also have reviewed and agree with the assessment and plan as stated above and agree with all ofits relevant components. documented in this encounterOur Lady Of [facility]2025 NoteHNO ID: [id number] Author: TIMOTHY ALLEN MD Service: ? 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 Continue follow up with Dr. Forman I have confirmed and edited as necessary the relevant HPI, ophthalmic history, ROS, and exam findings as obtained by others. I have seen and examined this patient. I have discussed the case and the management of this patient's care with the Resident, if applicable. I also have reviewed and agree with the assessment and plan as stated above and agree with all of its relevant components.[facility]03-17-2025 History of Present illness Narrative* Reef Konstantin German, RT(R) - 10/11/2024 3:20 PM EDT Radiology Service Progress Note DATE OF SERVICE: October 11, 2024 TIME: 3:48 PM PATIENT IDENTITY VERIFICATION COMPLETED USING TWO (2) STANDARD IDENTIFIERS: Name and Date of confirmed by patient verbally. FALL SCREENING: Has the patient had 2 falls in the last year or 1 fall with injury or currently using an Ambulatory Assistive Device (Walker, Cane, Wheelchair, Crutches, etc.)? No PATIENT GENDER DATA: Assigned male at PATIENT RELEVANT IMPLANT DATA REVIEWED: Yes PATIENT PRESENTS WITH AN IMPLANTABLE OR ATTACHED FITNESS TRAINER: No ALLERGIES: Reviewed and unchanged CONTRAST ALLERGY: NO. EXAM: CT -CONTRAST INDUCED NEPHROPATHY RISK FACTORS: Patient age > 60 years CREATININE: Creatinine Date Value Ref Range Status 09/27/2024 1.33 (H) 0.73 - 1.22 mg/dL Final 03/22/2024 1.27 (H) 0.73 - 1.22 mg/dL Final 09/19/2023 1.25 (H) 0.73 - 1.22 mg/dL Final Estimated Glomerular Filtration Rate Date Value Ref Range Status 09/27/2024 57 (L) >=60 mL/min/1.73m Final Comment: Estimated Glomerular Filtration Rate (eGFR) is calculated using the 2020 CKD-EPI creatinine equation. This equation utilizes serum creatinine, sex, and age as parameters. The creatinine assay has traceable calibration to isotope dilution- mass spectrometry. Refer to KDIGO guidelines for clinical interpretation. In patients with unstable renal function, e.g. those with acute kidney injury, the eGFRmay not accurately reflect actual GFR. eGFR- Date Value Ref Range Status 06/29/2021 >60 Final P.O.C.T. RESULTS: POC done: Yes, See Lab Tab October 11, 2024 TREATMENT: N/A PERIPHERAL IV DATA: Ambulatory: A peripheral IV was started in the Left antecubital site with a Angio cath: 22 gauge. RADIOLOGY DEPARTMENT: CT; Exam(s) Completed: Chest SIGNATURE: RT Alexandre(R) PATIENT NAME: Kam Greenberg DATE: October 11, 2024 TIME: 3:48 PM documented in this encounterCleveland [id number] NoteHNO ID: [id number] Author: KONSTANTIN CALLE RT(R) Service: ? Author Type: Puttier Type: Progress Notes Filed: 10/11/2024 15:48 Note Text: Radiology Service Progress Note DATE OF SERVICE: October 11, 2024 TIME: 3:48 PM PATIENT IDENTITY VERIFICATION COMPLETED USING TWO (2) STANDARD IDENTIFIERS: Name and Date of confirmed by patient verbally. FALL SCREENING: Has the patient had 2 falls in the last year or 1 fall with injury or currently using an Ambulatory Assistive Device (Walker, Cane, Wheelchair, Crutches, etc.)? No PATIENT GENDER DATA: Assigned male at PATIENT RELEVANT IMPLANT DATA REVIEWED: Yes PATIENT PRESENTS WITH AN IMPLANTABLE OR ATTACHED FITNESS TRAINER: No ALLERGIES: Reviewed and unchanged CONTRAST ALLERGY: NO. EXAM: CT -CONTRAST INDUCED NEPHROPATHY RISK FACTORS: Patient age > 60 years CREATININE: Creatinine Date Value Ref Range Status 09/27/2024 1.33 (H) 0.73 - 1.22 mg/dL Final 03/22/2024 1.27 (H) 0.73 - 1.22 mg/dL Final 09/19/2023 1.25 (H) 0.73 - 1.22 mg/dL Final Estimated Glomerular Filtration Rate Date Value Ref Range Status 09/27/2024 57 (L) >=60 mL/min/1.73m? Final Comment: Estimated Glomerular Filtration Rate (eGFR) is calculated using the 2020 CKD-EPI creatinine equation. This equation utilizes serum creatinine, sex, and age as parameters. The creatinine assay has traceable calibration to isotope dilution-mass spectrometry. Refer to KDIGO guidelines for clinical interpretation. In patients with unstable renal function, e.g. those with acute kidney injury, the eGFR may not accurately reflect actual GFR. eGFR- Date Value Ref Range Status 06/29/2021 >60 Final P.O.C.T. RESULTS: POC done: Yes, See Lab Tab October 11, 2024 TREATMENT: N/A PERIPHERAL IV DATA: Ambulatory: A peripheral IV was started in the Left antecubital site with a Angio cath: 22 gauge. RADIOLOGY DEPARTMENT: CT; Exam(s) Completed: Chest SIGNATURE: RT Alexandre(R) PATIENT NAME: Kam Greenberg DATE: October 11, 2024 TIME: 3:48 [facility]03-10-2025 Telephone encounter Note* Telephone Encounter - Milad Kowalski LPN - 10/04/2024 7:00 PM EDT Patient notified of below results/recommendation, verbalized understanding. Milad Kowalski LPN [facility]03-10-2025 Miscellaneous Notes* Telephone Encounter - Milad Kowalski LPN - 10/04/2024 7:00 PM EDT Patient notified of below results/recommendation, verbalized understanding. Milad Kowalski LPN * Telephone Encounter - Milad Kowalski LPN - 10/02/2024 10:56 AM EST Left message to call and speak to nurse re: non-urgent results. metatarsal * Telephone Encounter - Milad Kowalski LPN - 10/02/2024 10:47 AM EST ----- Message from Royce Carroll MD sent at 10/01/2024 1:32 PM EST ----- Kidney disease stable overall. Diabetes controlled. Mild anemia stable. Continue care. documented in this encounterOur [facility]-2025 Telephone encounter Note * Telephone Encounter - Milad Kowalski LPN - 10/02/2024 10:56 AM EST Left message to call and speak to nurse re: non-urgent results. metatarsal [facility]03-08-2025 Telephone encounter Note* Telephone Encounter - Milad Kowalski LPN - 10/02/2024 10:47 AM EST ----- Message from Royce Carroll MD sent at 10/01/2024 1:32 PM EST ----- Kidney disease stable overall. Diabetes controlled. Mild anemia stable. Continue care. [facility]03-04-2025 Telephone encounter Note* Telephone Encounter - Chiquis Boyer MSW - 09/28/2024 10:16 AM EST Sw left message for patient to return call to discuss prescription assistance forms for inhaler. [facility]03-04-2025 Miscellaneous Notes* Telephone Encounter - Chiquis Boyer MSW - 09/28/2024 10:16 AM EST Sw left message for patient to return call to discuss prescription assistance forms for inhaler. * Telephone Encounter - Chiquis Boyer MSW - 09/27/2024 1:12 PM EST Sw tried to call patient again to discuss prescription assistance forms. Sw received messagewe're sorry all circuits are busy now, please try call again later. Sw tried call 2x and received this same message. Medardo will try call another time. * Telephone Encounter - Chiquis Boyer MSW - 09/24/2024 9:15 AM EST Patient left message that he would like call back to let him know what to do with patient assistance forms as he mentioned that he completed forms. Sw left patient message requesting call back to discuss prescription assistance forms for inhaler. documented in this encounterOur Lady Of [facility]2025 NoteHNO ID: [id number] Author: ROYCE CARROLL MD Service: ? Author Type: Physician Type: Progress Notes Filed: 09/27/2024 14:24 Note Text: This note was created using [employer]. Subjective Kam Greenberg is a 73 year old male here with spouse. He was dyspneic on mild exertion. He continued smoking. He was taking his medications. He will do his fasting labs today, after this visit. Review of Systems Constitutional: Negative for activity change, chills, diaphoresis and fever. HENT: Negative for congestion. Eyes: Negative for visual disturbance. Respiratory: Negative for cough, shortness of breath and wheezing. No change, overall better. Cardiovascular: Negative for chest pain and leg swelling. Gastrointestinal: Negative. ACTIVE PROBLEM LIST Hyperlipemia Coronary Atherosclerosis Generalized Osteoarthrosis, Unspecified Site Degeneration of Thoracolumbar Intervertebral Disc Essential Hypertension Late Effects of Cva (Cerebrovascular Accident) Type 2 Diabetes Mellitus With Diabetic Mononeuropathy, Without Long-Term Current Use of Insulin ([facility]) Rhinitis Anxiety Disorder S/P Coronary Artery Stent Placement S/P Cabg X 3 Essential Tremor Stenosis of Left Carotid Artery Stage 3a Chronic Kidney Disease (Hcc) Type 2 Diabetes Mellitus With Diabetic Peripheral Angiopathy Without Gangrene, Without Long-Term Current Use of Insulin (Hcc) At Risk for Falls Abnormality of Gait Chronic Obstructive Pulmonary Disease With (Acute) Exacerbation (Hcc) Chronic Diastolic Chf (Congestive Heart Failure) (Hcc) Svt (Supraventricular Tachycardia) ([facility]) Social History Tobacco Use Smoking status: Every Day Current packs/day: 0.00 Average packs/day: 1 pack/day for 55.1 years (55.1 ttl pk-yrs) Types: Cigarettes Start date: 1966 Last attempt to quit: 12/11/2022 Years since quittin.7 Smokeless tobacco: Never Tobacco comments: Smokers in the home. 3 cigarettes per day Vaping Use Vaping status: Never Used Substance Use Topics Alcohol use: Not Currently Comment: rare NAB Drug use: No Current Outpatient Medications Medication Sig primidone (MYSOLINE) 50 mg tablet Take 1 tablet by mouth two times a day. ncdhhynwcey-ejduslfob-xrkdvtqr (TRELEGY ELLIPTA) 100-62.5-25 mcg inhalation powder Inhale 1 Puff as instructed once daily. ipratropium-albuterol (DUONEB) 0.5 mg-3 mg(2.5 mg base)/3 mL nebu Inhale 3 mL as instructed four times daily. blood sugar diagnostic (BLOOD GLUCOSE TEST) test strip Test blood sugar(s) 2 times daily. Dx: Other DM Code E11.41 Insulin: No albuterol HFA (VENTOLIN HFA) 90 mcg/actuation inhaler Inhale 2 Puffs as instructed every 4 hours as needed for wheezing/shortness of breath. Blood-Glucose Meter monitoring kit Glucose Meter of Choice - Kit - Dx: Other DM Code E11.49 saw/vit E/sod miguel/lyc/beta/pyg (PROSTATE HEALTH ORAL) Take 3 tablets by mouth once daily. multivit with minerals/lutein (MULTI-ISABELLE 50 AND OVER ORAL) Take 1 tablet by mouth once daily. nitroglycerin sublingual (NITROSTAT) 0.4 mg SL tablet Dissolve 1 tablet under the tongue every 5 minutes as needed. aspirin, enteric coated (ADULT LOW DOSE ASPIRIN) 81 mg EC tablet Take 1 tablet by mouth once daily. amLODIPine (NORVASC) 5 mg tablet Take 1 tablet by mouth once daily. atorvastatin (LIPITOR) 40 mg tablet Take 1 tablet by mouth daily at bedtime. clopidogrel (PLAVIX) 75 mg tablet Take 1 tablet by mouth once daily. fluticasone (FLONASE) 50 mcg/actuation nasal spray Use 1 [place] in each nostril two times a day. metFORMIN (GLUCOPHAGE) 500 mg tablet Take 1 tablet by mouth two times a day with meals. metoprolol tartrate, short acting, (LOPRESSOR) 50 mg tablet Take 1 tablet by mouth two times a day. sertraline (ZOLOFT) 100 mg tablet Take 1 tablet by mouth once daily. No current facility-administered medications for this visit. Objective BP 108/54 (BP Site: Right Arm, BP Position: Sitting, BP Cuff Size: Regular Adult) Pulse 76 Temp 36.6 ?C (97.9 ?F) (Temporal) Resp 28 Physical Exam Constitutional: General: He is not in acute distress. Appearance: He is not diaphoretic. HENT: Nose: No congestion or rhinorrhea. Cardiovascular: Rate and Rhythm: Normal rate and regular rhythm. Heart sounds: No murmur heard. No gallop. Pulmonary: Effort: No respiratory distress. Breath sounds: Wheezing present. No rhonchi or rales. Comments: On portable O2 via [place]. Abdominal: Palpations: Abdomen is soft. Tenderness: There is no abdominal tenderness. Musculoskeletal: Right lower leg: No edema. Left lower leg: No edema. Neurological: General: No focal deficit present. Mental Status: He is alert. Comments: Wheelchair bound. Assessment and Plan 1. Medicare annual wellness visit, subsequent - ICD9: V70.0, ICD10: Z00.00 (primary diagnosis) - See wellness visit. 2. Essential hypertension - ICD9: 401.9, ICD10: I10 - Controlled - Continue current medic (more content not included)...[facility]03-03-2025 History of Present illness Narrative* Royce Carroll MD - 09/27/2024 2:18 PM EST This note was created using [employer]. Subjective Kam Greenberg is a 73 year old male here with spouse. He was dyspneic on mild exertion. He continued smoking. He was taking his medications. He will do his fasting labs today, after this visit. Review of Systems Constitutional: Negative for activity change, chills, diaphoresis and fever. HENT: Negative for congestion. Eyes: Negative for visual disturbance. Respiratory: Negative for cough, shortness of breath and wheezing. No change, overall better. Cardiovascular: Negative for chest pain and leg swelling. Gastrointestinal: Negative. ACTIVE PROBLEM LIST Hyperlipemia Coronary Atherosclerosis Generalized Osteoarthrosis, Unspecified Site Degeneration of Thoracolumbar Intervertebral Disc Essential Hypertension Late Effects of Cva (Cerebrovascular Accident) Type 2 Diabetes Mellitus With Diabetic Mononeuropathy, Without Long-Term Current Use of Insulin (Hcc) Rhinitis Anxiety Disorder S/P Coronary Artery Stent Placement S/P Cabg X 3 Essential Tremor Stenosis of Left Carotid Artery Stage 3a Chronic Kidney Disease (Hcc) Type 2 Diabetes Mellitus With Diabetic Peripheral Angiopathy Without Gangrene, Without Long-Term Current Use of Insulin (Hcc) At Risk for Falls Abnormality of Gait Chronic Obstructive Pulmonary Disease With (Acute) Exacerbation (Hcc) Chronic Diastolic Chf (Congestive Heart Failure) (Hcc) Svt (Supraventricular Tachycardia) (Hcc) Social History Tobacco Use Smoking status: Every Day Current packs/day: 0.00 Average packs/day: 1 pack/day for 55.1 years (55.1 ttl pk-yrs) Types: Cigarettes Start date: 1966 Last attempt to quit: 12/11/2022 Years since quittin.7 Smokeless tobacco: Never Tobacco comments: Smokers in the home. 3 cigarettes per day Vaping Use Vaping status: Never Used Substance Use Topics Alcohol use: Not Currently Comment: rare NAB Drug use: No Current Outpatient Medications Medication Sig primidone (MYSOLINE) 50 mg tablet Take 1 tablet by mouth two times a day. qedrvbztyiq-egtgvidne-pzttzaky (TRELEGY ELLIPTA) 100-62.5-25 mcg inhalation powder Inhale 1 Puff asinstructed once daily. ipratropium-albuterol (DUONEB) 0.5 mg-3 mg(2.5 mg base)/3 mL nebu Inhale 3 mL as instructed four times daily. blood sugar diagnostic (BLOOD GLUCOSE TEST) test strip Test blood sugar(s) 2 times daily. Dx: OtherDM Code E11.41 Insulin: No albuterol HFA (VENTOLIN HFA) 90 mcg/actuation inhaler Inhale 2 Puffs as instructed every 4 hours asneeded for wheezing/shortness of breath. Blood-Glucose Meter monitoring kit Glucose Meter of Choice - Kit - Dx: Other DM Code E11.49 saw/vit E/sod miguel/lyc/beta/pyg (PROSTATE HEALTH ORAL) Take 3 tablets by mouth once daily. multivit with minerals/lutein (MULTI-ISABELLE 50 AND OVER ORAL) Take 1 tablet by mouth once daily. nitroglycerin sublingual (NITROSTAT) 0.4 mg SL tablet Dissolve 1 tablet under the tongue every 5 minutes as needed. aspirin, enteric coated (ADULT LOW DOSE ASPIRIN) 81 mg EC tablet Take 1 tablet by mouth once daily. amLODIPine (NORVASC) 5 mg tablet Take 1 tablet by mouth once daily. atorvastatin (LIPITOR) 40 mg tablet Take 1 tablet by mouth daily at bedtime. clopidogrel (PLAVIX) 75 mg tablet Take 1 tablet by mouth once daily. fluticasone (FLONASE) 50 mcg/actuation nasal spray Use 1 [place] in each nostril two times a day. metFORMIN (GLUCOPHAGE) 500 mg tablet Take 1 tablet by mouth two times a day with meals. metoprolol tartrate, short acting, (LOPRESSOR) 50 mg tablet Take 1 tablet by mouth two times a day. sertraline (ZOLOFT) 100 mg tablet Take 1 tablet by mouth once daily. No current facility-administered medications for this visit. Objective BP 108/54 (BP Site: Right Arm, BP Position: Sitting, BP Cuff Size: Regular Adult) Pulse 76 Temp36.6 C (97.9 F) (Temporal) Resp 28 Physical Exam Constitutional: General: He is not in acute distress. Appearance: He is not diaphoretic. HENT: Nose: No congestion or rhinorrhea. Cardiovascular: Rate and Rhythm: Normal rate and regular rhythm. Heart sounds: No murmur heard. No gallop. Pulmonary: Effort: No respiratory distress. Breath sounds: Wheezing present. No rhonchi or rales. Comments: On portable O2 via NC. Abdominal: Palpations: Abdomen is soft. Tenderness: There is no abdominal tenderness. Musculoskeletal: Right lower leg: No edema. Left lower leg: No edema. Neurological: General: No focal deficit present. Mental Status: He is alert. Comments: Wheelchair bound. Assessment and Plan 1. Medicare annual wellness visit, subsequent - ICD9: V70.0, ICD10: Z00.00 (primary diagnosis) - See wellness visit. 2. Essential hypertension - ICD9: 401.9, ICD10: I10 - Controlled - Continue current medications - AMLODIPINE 5 MG TABLET 3. Hyperlipidemia, unspecified hyperlipidemia type - ICD9: 272.4, ICD10: E78.5 - Control undetermined, due for labs - Continue current medications - Counseled on healthy diet and regular exercise - ATORVASTATIN 40 MG TABLET 4. Type 2 diabetes mellitus with diabetic mononeuropathy, without long-term current use of insulin (HCC) - ICD9: 250.60, 355.9, ICD10: E11.41 - Control undetermined, due for labs - Continue current medications - METFORMIN 500 MG TABLET 5. Atherosclerosis of coronary artery of [place] heart without angina pectoris, unspecified vessel or lesion type - ICD9: 414.01, ICD10: I25.10 Stable. - CLOPIDOGREL 75 MG TABLET - METOPROLOL TARTRATE 50 MG TABLET 6. Rhinitis, unspecified type - ICD9: 472.0, ICD10: J31.0 Controlled. - FLUTICASONE PROPIONATE 50 MCG/ACTUATION NASAL SPRAY,SUSPENSION 7. Anxiety disorder, unspecified type - ICD9: 300.00, ICD10: F41.9 Controlled. - SERTRALINE 100 MG TABLET 8. Chronic diastolic CHF (congestive heart failure) (HCC) - ICD9: 428.32, 428.0, ICD10: I50.32 Stable. - Continue current medications 9. Centrilobular emphysema (HCC) - ICD9: 492.8, ICD10: J43.2 Stable. - Smoking cessation encouraged. 10. Stage 3a chronic kidney disease (HCC) - ICD9: 585.3, ICD10: N18.31 - eGFR: 60 Due for labs - Counseled on avoiding NSAIDs, adequate hydration Royce Carroll MD * Royce Carroll MD - 09/27/2024 1:57 PM EST Images from the original note were not included. Kam Greenberg is a 73 year old male here for a Medicare wellness visit. Medicare Health Risk Assessment General Health Fair Exercise: Minutes/Day 0 min Exercise: Days/Week 0 days Alcohol: Daily Use Never Alcohol: Drinks/Day Patient does not drink Alcohol: 6 or more drinks Never Feel off balance Yes Concerns: Teeth/Dentures No Concerns: Sexual function No Troubled by feelings Irritable; Anxious Frequency: Eating healthy diet Several days ADLs requiring help Grocery shopping; Cooking; Housework; Walking; Bathing; Driving; Handling finances Safety precautions in home/vehicle Yes Smoke, vape, chews tobacco Yes, but I'm not ready to quit Difficulty hearing Yes Difficulty seeing No Current Providers Specialists: I have reviewed specialist-related care of the patient in the medical record. Current care team: Patient Care Team: Royce Carroll MD as PCP - Gabby Galicia, ORTHOTIC TECHNICIAN.WINERY WORKER as House Wrecker (Internal Medicine) Meghann Forman OD. Tabatha Jarrett MD Ophthalmology Clark Rothman MD, Pulmonary. Shaquille Castillo MD, Neurology. Sharon Limon DO, Vascular Surgery. Jair Miller DPM, Melinda, APRN WINERY WORKER, Lung Cancer Screening. Medical/Family history review Reviewed and updated problem list, medical/surgical/family/social history, medications, and allergies. Opioid use review Opioid Medications (last 90 days) No data to display Anxiety/Depression screening Recommendation: continuing current treatment plan Cognitive screening Cognitive screening reviewed and No further action needed (score 3-5). Functional Observation Was the patient's Timed Up & Go test unsteady or >= 12 seconds? No Advance Care Planning Patient did not wish or was not able to name a surrogate decision maker or provide an advance care plan Measurements BP 132/68 (BP Site: Right Arm, BP Position: Sitting, BP Cuff Size: Large Adult) Pulse 76 Temp 36.6 C (97.9 F) (Temporal) Resp 28 Vision Screening: Follows with optometry/ophthalmology Assessment/Plan Medicare annual wellness visit, subsequent (Z00.00) - Counseled on healthy diet and regular exercise - Fall avoidance information provided - Personalized prevention plan provided - Smoking cessation encouraged; discussed risks to health and quitting strategies. Patient is not ready to quit documented [facility] encounterOur [facility] Instructions* Patient Instructions* Royce Carroll MD - 09/27/2024 2:07 PM EST Advance Directive Forms Advanced Directives Forms (Georgian) FORMS: [email or web address] f INFORMATIONAL BROCHURE: [email or web address]/files/[email or web address] [email or web address]/[email or web address]-[email or web address]?la=en Advance Directives (non-Georgian) FORMS: [email or web address] nce-[email or web address]#forms-tab Please bring completed forms to your next appointment or email them to . Patient Resources How to Get Started Talking with Loved Ones about your Wishes at the End of Life [email or web address]/wp-content/uploads//ConversationProjec i-TexgfBjjrdjhUob-Xvxymgr.pdf How to Navigate Conversations with your Care Team around your Preferences [email or web address] Screening schedule The following prevention plan is recommended: DTaP,Tdap,Td Vaccine(2 - Td or Tdap) due on 11/19/2021 Advance Directive Discussion due on 07/28/2024 HbA1C due on 09/22/2024 Urine Albumin:Creatinine Ratio due on 09/19/2024 LDL Cholesterol due on 09/19/2024 Dilated Retinal Exam due on 10/08/2024 WHAT YOU CAN DO TO PREVENT FALLS Many falls can be prevented. By making some changes, you can lower your chances of falling. Four things YOU can do to prevent falls for you* and your caregiver 1. Begin a regular exercise program Exercise is one of the most important ways to lower your chances of falling. It makes you stronger and helps you feel better. Exercises that improve balance and coordination (like [place]) are the most helpful. Lack of exercise leads to weakness and increases your chances of falling. Ask your doctor or health care provider about the best type of exercise program for you. 2. Have your health care provider review your medicines Have your doctor or pharmacist review all the medicines you take, even huth-mrf-ukqxgug medicines. As you get older, the way medicines work in your body can change. Some medicines, or combinations of medicines, can make you sleepy or dizzy andcan cause you to fall. 3. Have your vision checked Have your eyes checked by an eye doctor at least once a year. You may be wearing the wrong glasses or have a condition like glaucoma or cataracts that limits your vision. Poor vision can increase your chances of falling. 4. Make your home safer About half of all falls happen at home. To make your home safer: Remove things you can trip over (like papers, books, clothes, and shoes) from stairs and places where you walk. Remove small throw rugs or use double-sided tape to keep the rugs from slipping. Keep items you use often in cabinets you can reach easily without using a step stool. Have grab bars put in next to your toilet and in the tub or shower. Use non-slip mats in the bathtub and on shower floors. Improve the lighting in your home. As you get older, you need brighter lights to see well. Hang light-weight curtains or shades to reduce glare. Have handrails and lights put in on all staircases. Wear shoes both inside and outside the house. Avoid going barefoot or wearing slippers. For more information, contact: Centers for Disease Control and Prevention www.cdc.gov/injury * This information may not apply if you have certain medical conditions. documented in this encounterOur [facility]25 NoteHNO ID: [id number] Author: ROYCE CARROLL MD Service: ? Author Type: Physician Type: Progress Notes Filed: 09/27/2024 14:24 Note Text: Kam Greenberg is a 73 year old male here for a Medicare wellness visit. Medicare Health Risk Assessment General Health Fair Exercise: Minutes/Day 0 min Exercise: Days/Week 0 days Alcohol: Daily Use Never Alcohol: Drinks/Day Patient does not drink Alcohol: 6 or more drinks Never Feel off balance Yes Concerns: Teeth/Dentures No Concerns: Sexual function No Troubled by feelings Irritable; Anxious Frequency: Eating healthy diet Several days ADLs requiring help Grocery shopping; Cooking; Housework; Walking; Bathing; Driving; Handling finances Safety precautions in home/vehicle Yes Smoke, vape, chews tobacco Yes, but I'm not ready to quit Difficulty hearing Yes Difficulty seeing No Current Providers Specialists: I have reviewed specialist-related care of the patient in the medical record. Current care team: Patient Care Team: Royec Carroll MD as PCP - General Gabby Cannon, ORTHOTIC TECHNICIAN.WINERY WORKER as House Wrecker (Internal Medicine) Meghann Forman OD. Tabatha Jarrett MD Ophthalmology Clark Rothman MD, Pulmonary. Shaquille Castillo MD, Neurology. Sharon Limon DO, Vascular Surgery. Jair Miller DPM, Melinda, APRN WINERY WORKER, Lung Cancer Screening. Medical/Family history review Reviewed and updated problem list, medical/surgical/family/social history, medications, and allergies. Opioid use review Opioid Medications (last 90 days) No data to display Anxiety/Depression screening Recommendation: continuing current treatment plan Cognitive screening Cognitive screening reviewed and No further action needed (score 3-5). Functional Observation Was the patient's Timed Up AND Go test unsteady or >= 12 seconds? No Advance Care Planning Patient did not wish or was not able to name a surrogate decision maker or provide an advance care plan Measurements BP 132/68 (BP Site: Right Arm, BP Position: Sitting, BP Cuff Size: Large Adult) Pulse 76 Temp 36.6 ?C (97.9 ?F) (Temporal) Resp 28 Vision Screening: Follows with optometry/ophthalmology Assessment/Plan Medicare annual wellness visit, subsequent (Z00.00) - Counseled on healthy diet and regular exercise - Fall avoidance information provided - Personalized prevention plan provided - Smoking cessation encouraged; discussed risks to health and quitting strategies. [facility] is not [facility] Telephone encounter Note* Telephone Encounter - Chiquis Boyer MSW - 09/27/2024 1:12 PM EST Sw tried to call patient again to discuss prescription assistance forms. Sw received messagewe're sorry all circuits are busy now, please try call again later. Medardo tried call 2x and received this same message. Medardo will try call another time. [facility] Telephone encounter Note* Telephone Encounter - Chiquis Boyer MSW - 09/24/2024 9:15 AM EST Patient left Sw message that he would like call back to let him know what to do with patient assistance forms as he mentioned that he completed forms. Sw left patient message requesting call back to discuss prescription assistance forms for inhaler. [facility] Telephone encounter Note* Telephone Encounter - Chiquis Boyer MSW - 09/14/2024 4:02 PM EST Medardo spoke with patient in regards to [employer] PAP for Trelegy. Patient asks that Sw mail application to his home to review out of pocket spend out at pharmacy. Swreviewed patient income and patient notes that he is under the $61,000 for 2 people income guideline. Sw verified address and noted Sw direct number on forms. [facility] Miscellaneous Notes* Telephone Encounter - Chiquis Boyer MSW - 09/14/2024 4:02 PM EST Medardo spoke with patient in regards to [employer] PAP for Trelegy. Patient asks that Sw mail application to his home to review out of pocket spend out at pharmacy. Swreviewed patient income and patient notes that he is under the $61,000 for 2 people income guideline. Medardo verified address and noted Sw direct number on forms. * Telephone Encounter - Chiquis Boyer MSW - 09/14/2024 10:51 AM EST Medardo left message for patient to return Sw call to discuss trelegy inhaler cost issue and [employer] PAP program. documented in this encounterOur [facility] Telephone encounter Note * Telephone Encounter - Chiquis Boyer MSW - 09/14/2024 10:51 AM EST Medardo left message for patient to return Sw call to discuss trelegy inhaler cost issue and [employer] PAP program. [facility] Instructions* Patient Instructions* Gianni Velazquez APRN.CNP - 09/13/2024 7:22 PM EST Your lung nodules were stable. However you had increased in size lymph nodes of the chest, that were larger than normal. Plan to repeat CT Chest in 3 months from 07/23/2024 LDCT scan to reevaluate the chest lymph nodes. Thank you, Gianni Velazquez APRN.WINERY WORKER documented in this encounterOur Lady Of [facility]02-[facility]25 NoteHNO ID: [id number] Author: GIANNI VELAZQUEZ APRN.CNP Service: ? Author Type: Nurse Practitioner Type: Progress Notes Filed: 09/13/2024 19:22 Note Text: LUNG SCREENING ANNUAL VISIT PRIMARY CARE PHYSICIAN: Royce Carroll MD PULMONARY PROVIDER: Dr. Jeannine Rothman Results will be communicated via letter or electronic record if applicable. Visit Delivery: In Person Patient Visit Type: established Current or Ex-smoker? Ex Exam Type: annual LDCT Number of Pack Years: 55 Current smoker (=0) or Number of Years since Quit: 2 The patient's smoking history is similar to prior year shared decision visit. The reason for the discrepancy is NA Chief Complaint: Established patient in lung cancer screening program here for annual follow-up. Impression / Recommendations Kam Greenberg presents for annual lung cancer screening annual exam and nodule evaluation. Plan: Indeterminate pulmonary nodules: Previously identified nodules appear stable and no new nodules of concern were seen on the exam. Low dose CT Scan to be repeated in one year. Nature of the lung nodule(s) and the options for further evaluation discussed in detail with patient. Kam Greenberg expressed understanding and is in agreement with plan. 2. Encounter for screening for malignant neoplasm of respiratory organs I have determined that the patient is eligible for continued low dose CT screening based on age, absence of signs or symptoms of lung cancer, smoking history and total pack years. The patient was counseled on the importance of adherence to annual LDCT lung cancer screening, impact of comorbidities and ability or willingness to undergo diagnosis and treatment. The patient understands and feels comfortable with it: Yes. 3. Nicotine Dependence The patient was counseled on the importance of maintaining cigarette smoking abstinence - The patient is committed to remaining abstinent from tobacco. 4. Localized enlarged lymph nodes (Primary) Case reviewed with Dr. Chi Mireles. Plan to repeat CT Chest in 3 months from 07/23/2024 LDCT.. Will be with IV contrast. He has labs ordered by PCP to be done in the next 2 weeks. Pt plans to do those soon. Discussed may need EBUS biopsy of lymph nodes. - CT CHEST W IVCON; Future I spent a total of 30 minutes on the date of the service which included preparing to see the patient, [id number] patient care, completing clinical documentation, performing a medically appropriate examination, counseling and educating the patient/family/caregiver, ordering medications, tests, or procedures, communicating with other HCPs (not separately reported), independently interpreting results (not separately reported), and communicating results to the patient/family/caregiver. Gianni Velazquez APRN.[facility] September 13, 2024 2:10 PM History of Present Illness: Kam Greenberg is a 73 year old male who is presenting today for annual lung cancer screening LDCT and nodule surveillance/management. Patient has multiple nodules found on previous lung cancer screening LDCT. Last LDCT was performed on 07/23/2024 and was LUNG RADS Category 2. Previous potentially significant incidental findings on imaging: increasing in size lymph nodes anterior right bronchus and subcarinal. Patient is a former smoker with a 55 pack year history. Patient quit smoking 2 years ago at age 72. Patient will continue to be eligible for lung cancer screening until age 78. The patient does not have any symptoms or signs of lung cancer. Patient has SOB with their daily activity. He is on 4L of portable oxygen. Increases to 6 L with activity. No wheezing or dyspnea. Patient denies feeling of chest tightness/congestion in the chest. Patient does not have a new or concerning cough, and denies hemoptysis. Patient does not have a chronic daily cough. Denies regular or recent fevers/chills. Patient does not have any significant unintentional weight loss. Patient denies having any respiratory infections or COVID-19 in the past few months. Modified Medical Research [place] Dyspnea Scale (MMRC) I am too breathless to leave the house or I am breathless when dressing 4 Last 12 Encounter Wt Readings: Date: Wt: 07/01/2024 80.3 kg (177 lb) 06/23/2024 81.8 kg (180 lb 5.4 oz) 03/22/2024 82.5 kg (181 lb 14.1 oz) 01/19/2024 80.4 kg (177 lb 4 oz) 12/18/2023 80.3 kg (177 lb) 12/02/2023 82.1 kg (181 lb) 09/19/2023 82.6 kg (182 lb) 06/13/2023 83.5 kg (184 lb) 05/28/2023 82.1 kg (181 lb) 05/27/2023 82.2 kg (181 lb 3.2 oz) 05/23/2023 81.6 kg (180 lb) 05/01/2023 83 kg (182 lb 14.4 oz) Social History Tobacco Use: Types: Cigarettes Past Medical History: PAST MEDICAL HISTORY Diagnosis Date Acute on chronic respiratory failure with hypoxia (HCC) 01/15/2023 Acute, but ill-defined, cere (more content not included)...[facility] History of Present illness Narrative* Gianni Velazquez APRN.WINERY WORKER - 09/13/2024 1:59 PM EST Images from the original note were not included. LUNG SCREENING ANNUAL VISIT PRIMARY CARE PHYSICIAN: Royce Carroll MD PULMONARY PROVIDER: Dr. Jeannine Rothman Results will be communicated via letter or electronic record if applicable. Visit Delivery: In Person Patient Visit Type: established Current or Ex-smoker? Ex Exam Type: annual LDCT Number of Pack Years: 55 Current smoker (=0) or Number of Years since Quit: 2 The patient's smoking history is similar to prior year shared decision visit. The reason for the discrepancy is NA Chief Complaint: Established patient in lung cancer screening program here for annual follow-up. Impression / Recommendations Kam Greenberg presents for annual lung cancer screening annual exam and nodule evaluation. Plan: Indeterminate pulmonary nodules: Previously identified nodules appear stable and no new nodules of concern were seen on the exam. Low dose CT Scan to be repeated in one year. Nature of the lung nodule(s) and the options for further evaluation discussed in detail with patient. Kam Greenberg expressed understanding and is in agreement with plan. 2. Encounter for screening for malignant neoplasm of respiratory organs I have determined that the patient is eligible for continued low dose CT screening based on age, absence of signs or symptoms of lung cancer, smoking history and total pack years. The patient was counseled on the importance of adherence to annual LDCT lung cancer screening, impact of comorbidities and ability or willingness to undergo diagnosis and treatment. The patient understands and feels comfortable with it: Yes. 3. Nicotine Dependence The patient was counseled on the importance of maintaining cigarette smoking abstinence - The patient is committed to remaining abstinent from tobacco. 4. Localized enlarged lymph nodes (Primary) Case reviewed with Dr. Chi Mireles. Plan to repeat CT Chest in 3 months from 07/23/2024 LDCT.. Will be with IV contrast. He has labs ordered by PCP to be done in the next 2 weeks. Pt plans to do those soon. Discussed may need EBUS biopsy of lymph nodes. - CT CHEST W IVCON; Future I spent a total of 30 minutes on the date of the service which included preparing to see the patient, [id number] patient care, completing clinical documentation, performing a medically appropriate examination, counseling and educating the patient/family/caregiver, ordering medications, tests, or p rocedures, communicating with other HCPs (not separately reported), independently interpreting results (not separately reported), and communicating results to the patient/family/caregiver. Gianni Velazquez APRN.WINERY WORKER September 13, 2024 2:10 PM History of Present Illness: Kam Greenberg is a 73 year old male who is presenting today for annual lung cancer screening LDCT and nodule surveillance/management. Patient has multiple nodules found on previous lung cancer screening LDCT. Last LDCT was performed on 07/23/2024 and was LUNG RADS Category 2. Previous potentially significant incidental findings on imaging: increasing in size lymph nodes anterior right bronchusand subcarinal. Patient is a former smoker with a 55 pack year history. Patient quit smoking 2 years ago at age 72.Patient will continue to be eligible for lung cancer screening until age 78. The patient does not have any symptoms or signs of lung cancer. Patient has SOB with their daily activity. He is on 4L of portable oxygen. Increases to 6 L with activity. No wheezing or dyspnea. Patient denies feeling of chest tightness/congestion in the chest. Patient does not have a new or concerning cough, and denies hemoptysis. Patient does not have a chronic daily cough. Denies regular or recent fevers/chills. Patient does not have any significant unintentional weight loss. Patient denies having any respiratory infections or COVID-19 in the past few months. Modified Medical Research [place] Dyspnea Scale (MMRC) I am too breathless to leave the house or I am breathless when dressing 4 Last 12 Encounter Wt Readings: Date: Wt: 07/01/2024 80.3 kg (177 lb) 06/23/2024 81.8 kg (180 lb 5.4 oz) 03/22/2024 82.5 kg (181 lb 14.1 oz) 01/19/2024 80.4 kg (177 lb 4 oz) 12/18/2023 80.3 kg (177 lb) 12/02/2023 82.1 kg (181 lb) 09/19/2023 82.6 kg (182 lb) 06/13/2023 83.5 kg (184 lb) 05/28/2023 82.1 kg (181 lb) 05/27/2023 82.2 kg (181 lb 3.2 oz) 05/23/2023 81.6 kg (180 lb) 05/01/2023 83 kg (182 lb 14.4 oz) Social History Tobacco Use: Types: Cigarettes Past Medical History: 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 11/06/2005 Degeneration of thoracolumbar intervertebral disc 11/06/2005 compression fractures Diabetes mellitus ([facility]) Dysmetabolic syndrome X Esophageal reflux Essential tremor 11/23/2015 Generalized osteoarthrosis, unspecified site 10/16/2005 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 CVA (cerebrovascular accident) 03/17/2007 Left arm weakness CO (myocardial infarction) ([facility]) 1999 Other and unspecified hyperlipidemia Peripheral vascular disease ([facility]) 11/06/2005 Polyneuropathy in diabetes(357.2) 11/07/2005 S/P CABG x 3 06/06/2015 S/P coronary artery stent placement 06/06/2015 ST elevation CO (STEMI) ([facility]) 03/2013 Stage 3a chronic kidney disease ([facility]) 04/17/2018 Stenosis of left carotid artery 04/03/2016 Unspecified chronic bronchitis ([facility]) 06/07/2008 Family Hx: FAMILY HISTORY Problem Relation Age of Onset other (Brain Ca) Mother other (CVA) Father , aneurysm other (CO) Father other (Other) Brother natural causes. None Brother no information. None Brother Cancer Son , testicular ca Surgical Hx: PAST SURGICAL HISTORY Procedure Laterality Date CABG, ARTERIAL, THREE 1999 CABG x3 PAST SURGICAL HISTORY OF 1964 Ankle and Feet surgeries d.t. Polio RPR 1ST INGUN HRNA AGE 6 YRS/> REDUCIBLE 1958 Hernia repair, inguinal, right TRANSCATH STENT INIT VESSEL,PERCUT MARKUS to SVG to RCA & MARKUS to SVG to OM Allergies: ALLERGIES Allergen Reactions Lisinopril Angioedema Morphine Shortness of Breath rapid heart rate Oysters GI Upset Tylenol [Acetaminop* Dystonia flushed, cold sweats, shakey Review Of Systems: See HPI for ROS All of the remainder systems were reviewed and negative. PHYSICAL EXAMINATION: BP (P) 132/68 Pulse (P) 91 Resp (P) 18 SpO2 (P) 91% General appearance: well appearing and alert Skin: skin color, texture, turgor normal, no rashes or lesions Neck: Supple, no adenopathy; thyroid symmetric, normal size, no bruits Respiratory: Positive findings: wheezing Shortness of breath: At rest, increased with lying flat and ambulation Abdominal: mild tenderness LUQ, using abdominal muscles with breathing Cardiovascular: Negative. RRR without murmur, gallop, or rubs. No ectopy Musculoskeletal: Extremities normal. No deformities, edema, or skin discoloration. Good capillary refill. Neuro: Oriented X 3 Data Review I have visually reviewed imaging and testing below CT imaging done today was reviewed and analyzed independently and compared to prior CT chest imaging by practitioner. Previously noted lung nodules are stable. Mediastinal lymph nodes are increased in size. Imaging Last CT/CTA Chest/Lungs CT LUNG SCREEN WO IVCON Exam End: 07/23/2024 4:01 PM (Final result) Narrative: * * *Final Report* * * DATE OF EXAM: Jul 23 2024 4:01PM [facility] 0562 - CT LUNG SCREEN WO IVCON / PROCEDURE REASON: Cigarette smoker * * * * Physician Interpretation * * * * EXAMINATION: CHEST CT WITHOUT CONTRAST (LOW-DOSE CT LUNG CANCER SCREENING PROTOCOL) CLINICAL HISTORY: Lung cancer LDCT screening ? absence of signs or symptoms of lung cancer. Nicotine dependence (cigarettes). Subsequent (annual) Technique: Spiral CT acquisition of the chest from the thoracic inlet to the upper abdomen without contrast. MQ: CTLCS_6 Patient characteristics: * Bcwx-tw-[id number]: 1950; Age at exam: 73 years * Gender: Male * Lung Disease: Asymptomatic (no signs or symptoms of lung disease) * Number of Pack Years: 55 * Current smoker (=0) or Number of Years since Quit: 0 * Ordering provider and NPI: KIRSTIN ZUÑIGA [id number] * Interpreting radiologist and NPI: Victoria [id number] Exam acquisition parameters: * Exam Date: 07/23/2024 4:01 PM * Site: [facility] * * CT System Gold Frame Assembler: Siemens * CT System Model: Sensation * Tube Current-Time (mA-sec): 28 * Peak Voltage (kV): 120V * Scan Time (sec): 11.41 * Scan Volume (z-length, cm): -30.45 * Pitch: 0.75 * Slice Thickness (mm): 1.5 * CT Dose-Length Product: 92 mGy*cm * CT Dose Index: 2.14mGy * CT Dose Reduction Method: Automated exposure control(AEC) and iterative recon COMPARISON: Chest CT dated 10/29/2022 RESULT: Are nodules present? Yes, 1-5 nodules Nodule 1: This Solid nodule is located in the Right Upper Lobe on slice number 144 with an average diameter of 3.9 mm (4.6 mm x 3.2 mm). Unchanged since 10/29/2022, possibly a lymph node given location near the fissure. Other lung nodule comments: Unchanged 2 mm posterior left upper lobe pulmonary nodule near the fissure, image 170, since 10/29/2022. Other findings: There is severe diffuse centrilobular emphysema with an upper lung zone predominance. There are persistent reticular opacities in the mid to lower lung zones, probably due to atelectasis and likely interstitial lung disease which may be smoking-related. Diffuse bronchial wall thickening is present. Minimal dependent debris in the trachea is most consistent with mucous/secretions. A lymph node located anterior to the right mainstem bronchus, image 80 is series 7 measuring 1.1 cm in short axis is larger, previously measuring 0.9 cm in short axis on the prior chest CT. A subcarinal lymph node, image 100 of series 7 measuring 1.3 cm in short axis previously measured 1.2 cm in short axis on the prior chest CT mild atherosclerosis is present within the thoracic aorta which is nondilated measuring 2.9 cm in the mid ascending segment. There are severe [place] coronary artery atherosclerotic calcifications in this patient who is status post median sternotomy for CABG. No abnormality within the imaged solid abdominal organs on this noncontrast exam. Mild to moderate atherosclerosis is present in the proximal abdominal aorta, which is nondilated. The sternum is well approximated by median sternotomy wires. Mild multilevel endplate degenerative changes are present throughout the imaged spine. Emphysema: Severe (50-75%), Centrilobular, Diffuse Coronary Artery Calcifications: Circumflex Moderate; Left Anterior Descending Severe; Right Coronary Severe Incidental coronary calcium as automatically processed and calculated using AI: Total Coronary Calcium Score = [100+] Agatston Units Percentile Rank (age and gender matched relative to reference population): [25th-75th] percentile* [* [email or web address]] Localizer images: No additional findings. Impression: IMPRESSION: LungRADS category: 2 S LungRADS modifier: Significant other (S), coronary artery calcification, moderate or severe LungRADS 0 reason: n/a Recommendations: Continue annual screening with LDCT in 12 months. Other actionable findings: Severe diffuse centrilobular emphysema. Peripheral reticular opacities in the mid to lower lung zones bilaterally are unchanged, probably due to a combination of atelectasis and interstitial lung disease (which may be smoking-related). Reference: [employer]. Lung CT Screening Reporting and Data System (Lung-RADS). Available at: http://www.acr.org/Quality-Safety/Resources/LungRADS Lumber Sticker: CONSUELO Transcribe Date/Time: Jul 26 2024 9:53A Dictated by : LISA ARECHIGA MD This examination was interpreted and the report reviewed and electronically signed by: LISA ARECHIGA MD on Jul 26 2024 10:12AM EST Last CT Chest - Impression Only CT CHEST WO IVCON Exam End: 11/01/2021 10:21 AM (Final result) Impression: IMPRESSION: Extensive bilateral chronic interstitial lung changes and left upper lobe postsurgical scarring. There are no suspicious pulmonary nodules or masses. Groundglass opacity measuring less than 1 cm in the right upper lung which corresponds to the previously described abnormality demonstrates adjacent curvilinear stranding and is most consistent with an area of parenchymal scarring and airways inflammation..... Last XR Chest - Impression Only XR CHEST 2V FRONTAL/LAT Exam End: 03/22/2024 3:14 PM (Final result) Impression: IMPRESSION: No acute radiographic abnormality. ... Pulmonary Function Testing: SPIROMETRY WITH DILATOR IF OBSTRUCTED ([id number]) - ordered on 07/01/24 No textual results for order. documented in this encounterOur [facility] NoteHNO ID: [id number] Author: OLU MILLER, ? Service: ? Author Type: Physician Type: Progress Notes Filed: 09/03/2024 13:17 Note Text: Last saw pcp: 06/23/24 Subjective: Patient presents to clinic c/o painful toenails. They state that the nails are especially painful with shoe gear and pressure. Patient states that nails 1-5 b/l are painful. Patient admits to being diabetic. No other pedal complaints at this time. Patient states no change in medications or medical history since last visit. Objective: Patient presents to clinic ambulating in [facility] Vasc: DP and PT pulses are faintly palpable bilateral. CFT is less than 5 seconds bilateral. Skin temperature is warm to cool proximal to distal bilateral. There is minimal edema or varicosities noted. Neuro: Protective sensation is intact to the foot and toes when tested with the 5.07 SWM bilateral. Vibratory sensation is absent at the hallux IPJ bilateral. The hallux is downgoing bilateral. Derm: Nails 1-5 b/l are painful, discolored-yellow, thick, crumbly, dystrophic and with subungal debris. Skin is of normal turgor, texture and hair growth is absent bilateral. There are small callus to distal tuft of right 2nd toe. No ulcerations, scars, verruca or other lesions noted. Ortho: Muscle strength is 5/5 for all pedal groups tested. Ankle joint DF is decreased with the knee extended with no pain or crepitus noted. 1st MPJ ROM is decreased bilateral. Hammertoes are present to lesser toes of b/l feet. Assessment: (B35.1) Onychomycosis (primary encounter diagnosis) (M79.675) Pain in toe of left foot (M79.674) Pain in toe of right foot (E11.42) Diabetic polyneuropathy associated with type 2 diabetes mellitus (HCC) (L85.9) Hyperkeratosis (M20.40) Hammer toe, unspecified laterality Plan: Patient was seen and evaluated. Nails 1-5 bilateral were debrided in length and thickness. Callus reduced to right 2nd toe with dremmel. Continue with hammertoe pads Due to diabetes with neuropathy and having chronic deformity of toes (hammertoe), patient will benefit from a diabetic shoe and these were ordered Patient was instructed on the continued importance of diabetic foot care along with proper diet and keeping their blood sugar under control to prevent complications. Stressed the importance of avoiding barefoot walking, wearing good shoes and inspection of feet Patient is to RTC in 3-4 months. Olu Miller [facility]02-07-2025 History of Present illness Narrative* Olu Miller - 09/03/2024 1:06 PM EST Last saw pcp: 06/23/24 Subjective: Patient presents to clinic c/o painful toenails. They state that the nails are especially painful with shoe gear and pressure. Patient states that nails 1-5 b/l are painful. Patient admits to being diabetic. No other pedal complaints at this time. Patient states no change in medications or medical history since last visit. Objective: Patient presents to clinic ambulating in [facility] Vasc: DP and PT pulses are faintly palpable bilateral. CFT is less than 5 seconds bilateral. Skin temperature is warm to cool proximal to distal bilateral. There is minimal edema or varicosities noted. Neuro: Protective sensation is intact to the foot and toes when tested with the 5.07 SWM bilateral.Vibratory sensation is absent at the hallux IPJ bilateral. The hallux is downgoing bilateral. Derm: Nails 1-5 b/l are painful, discolored-yellow, thick, crumbly, dystrophic and with subungal debris. Skin is of normal turgor, texture and hair growth is absent bilateral. There are small callus to distal tuft of right 2nd toe. No ulcerations, scars, verruca or other lesions noted. Ortho: Muscle strength is 5/5 for all pedal groups tested. Ankle joint DF is decreased with the knee extended with no pain or crepitus noted. 1st MPJ ROM is decreased bilateral. Hammertoes are present to lesser toes of b/l feet. Assessment: (B35.1) Onychomycosis (primary encounter diagnosis) (M79.675) Pain in toe of left foot (M79.674) Pain in toe of right foot (E11.42) Diabetic polyneuropathy associated with type 2 diabetes mellitus (HCC) (L85.9) Hyperkeratosis (M20.40) Hammer toe, unspecified laterality Plan: Patient was seen and evaluated. Nails 1-5 bilateral were debrided in length and thickness. Callus reduced to right 2nd toe with dremmel. Continue with hammertoe pads Due to diabetes with neuropathy and having chronic deformity of toes (hammertoe), patient will benefit from a diabetic shoe and these were ordered Patient was instructed on the continued importance of diabetic foot care along with proper diet andkeeping their blood sugar under control to prevent complications. Stressed the importance of avoiding barefoot walking, wearing good shoes and inspection of feet Patient is to RTC in 3-4 months. Olu Miller DPM * Xi Finn LPN - 09/03/2024 1:04 PM EST AMB ROOMING INTAKE FLOWSHEET DATA Patient presents with: Right Foot - Established Patient, Diabetic Foot Care Left Foot - Established Patient, Diabetic Foot Care Xi Finn LPN documented in this encounterOur [facility] Instructions* Patient Instructions* Olu Miller - 09/03/2024 1:06 PM EST Diabetes Foot Care Instructions When you have diabetes, proper foot care is very important. Poor foot care may lead to amputation of a foot or leg. As a person with diabetes, you are more vulnerable to foot problems, because diabetes can damage your nerves and reduce blood flow to your feet. Here are some diabetes foot care tips to follow: Wash and Dry Your Feet Daily Use mild soaps Use warm water Pat your skin dry; do not rub. Thoroughly dry your feet. After washing, use lotion on your feet to prevent cracking. Do not put lotion between your toes. Examine Your Feet Each Day Check the tops and bottoms of your feet. Have someone else look at your feet if you cannot see them. Check for dry, cracked skin. Look for blisters, cuts, scratches, or other sores. Check for redness, increased warmth, or tenderness when touching any area of your feet. Check for ingrown toenails, corns, and calluses. If you get a blister or sore from your shoes, do not pop it. Apply a bandage and wear a differentpair of shoes. Take Care of Your Toenails Cut toenails after bathing, when they are soft. Cut toenails straight across and smooth with a nail file. Avoid cutting into the corners of toes. Do not cut cuticles. If you have neuropathy (or decreased sensation in your feet) a non destructive testing inspector should always cut your toenails. Be Careful When Exercising Walk and exercise in comfortable shoes. Do not exercise when you have open sores on your feet. Protect Your Feet With Shoes and Socks Never go barefoot. Always protect your feet by wearing shoes or hard-soled slippers or footwear. Avoid shoes with high heels and pointed toes. Avoid shoes that expose your toes or heels (such as open-toed shoes or sandals). These types of shoes increase your risk for injury and potential infections. Try on new footwear with the type of socks you usually wear. Do not wear new shoes for more than an hour at a time. Change your socks daily. Look and feel inside your shoes before putting them on to make sure there are no foreign objects orrough areas. Avoid tight socks. Wear natural-fiber socks (cotton, wool, or a cotton-wool blend). Wear special shoes if your health care provider recommends them. Wear shoes/boots that will protect your feet from various weather conditions (cold, moisture, etc.). Make sure your shoes fit properly. If you have neuropathy (nerve damage), you may not notice that your shoes are too tight. Perform the footwear test described below. Footwear Test Use this simple test to see if your shoes fit correctly: Stand on a piece of paper. (Make sure you are standing and not sitting, because your foot changes shape when you stand.) Trace the outline of your foot. Trace the outline of your shoe. Compare the tracings: Is the shoe too narrow? Is your foot crammed into the shoe? The shoe should be at least 1/2 inch longer than your longest toe and as wide as your foot. Proper Shoe Choices The following types of shoes are best for people with diabetes Closed toes and heels Leather uppers without a seam inside At least 1/2 inch extra space at the end of your longest toe Inside of shoe should be soft with no rough areas Outer sole should be made of stiff material Shoes should be at least as wide as your feet Tips for Foot Care in Diabetes Don't wait to treat a minor foot problem if you have diabetes. Follow your health care provider's guidelines and first aid guidelines. Report foot injuries and infections to your health care provider immediately. Check water temperature with your elbow, not your foot. Do not use a heating pad on your feet. Do not cross your legs. Do not self-treat your corns, calluses, or other foot problems. Go to your health care provider or non destructive testing inspector to treat these conditions. documented in this encounterOur [facility]-07-[facility]25 NoteHNO ID: [id number] Author: XI FINN LPN Service: ? Author Type: LICENSED NURSE Type: Progress Notes Filed: 09/03/2024 13:17 Note Text: AMB ROOMING INTAKE FLOWSHEET DATA Patient presents with: Right Foot - Established Patient, Diabetic Foot Care Left Foot - Established Patient, Diabetic Foot Care [facility] Tele[facility] encounter Note* Telephone Encounter - Bozena Eng RN - 09/03/2024 10:05 AM EST Karen calling from [facility] with appt related question. Information discussed. Bozena Eng RN [facility]-07-2025 Miscellaneous Notes* Telephone Encounter - Bozena Eng RN - 09/03/2024 10:05 AM EST Karen calling from [facility] with appt related question. Information discussed. Bozena Eng RN documented in this encounterOur Lady Of [facility]12-27-2024 History of Present illness Narrative* Konstantin Calle RT(R) - 07/23/2024 3:40 PM EST Radiology Service Progress Note PATIENT NAME: Kam Greenberg DATE OF SERVICE: July 23, 2024 TIME: 4:02 PM PATIENT IDENTITY VERIFICATION COMPLETED USING TWO (2) IDENTIFIERS: Name and Date of confirmedby patient verbally. FALL SCREENING: Has the patient had 2 falls in the last year or 1 fall with injury or currently using an Ambulatory Assistive Device (Walker, Cane, Wheelchair, Crutches, etc.)? No PATIENT GENDER DATA: Male PATIENT RELEVANT IMPLANT DATA REVIEWED: Yes PATIENT PRESENTS WITH AN IMPLANTABLE OR ATTACHED FITNESS TRAINER: No RADIOLOGY DEPARTMENT: CT; Exam(s) Completed: Lung Screening PERIPHERAL IV DATA: Not applicable SIGNED BY: RT Alexandre(Thomas) July 23, 2024 4:02 PM documented in this encounterOur Lady Of [facility]12-27-2024 NoteHNO ID: [id number] Author: KONSTANTIN CALLE RT(Thomas) Service: ? Author Type: Puttier Type: Progress Notes Filed: 07/23/2024 16:02 Note Text: Radiology Service Progress Note PATIENT NAME: Kam Greenberg DATE OF SERVICE: July 23, 2024 TIME: 4:02 PM PATIENT IDENTITY VERIFICATION COMPLETED USING TWO (2) IDENTIFIERS: Name and Date of confirmed by patient verbally. FALL SCREENING: Has the patient had 2 falls in the last year or 1 fall with injury or currently using an Ambulatory Assistive Device (Walker, Cane, Wheelchair, Crutches, etc.)? No PATIENT GENDER DATA: Male PATIENT RELEVANT IMPLANT DATA REVIEWED: Yes PATIENT PRESENTS WITH AN IMPLANTABLE OR ATTACHED FITNESS TRAINER: No RADIOLOGY DEPARTMENT: CT; Exam(s) Completed: Lung Screening PERIPHERAL IV DATA: Not applicable SIGNED BY: RT Alexandre(R) July 23, 2024 4:02 [facility]12-26-2024 Telephone encounter Note* Telephone Encounter - Eliza Driscoll - 07/22/2024 1:36 PM EST Patient has been identified by name and date of : Yes, Patient phones for refill(s): Requested Prescriptions Pending Prescriptions Disp Refills primidone (MYSOLINE) 50 mg tablet 180 tablet 1 Sig: Take 1 tablet by mouth two times a day. Date of last office visit in primary care: 06/23/2024 Date of next office visit in primary care: 09/23/2024 Please advise. Thank you. Eliza Driscoll. [facility]12-26-2024 Miscellaneous Notes* Telephone Encounter - Eliza Driscoll - 07/22/2024 1:36 PM EST Patient has been identified by name and date of : Yes, Patient phones for refill(s): Requested Prescriptions Pending Prescriptions Disp Refills primidone (MYSOLINE) 50 mg tablet 180 tablet 1 Sig: Take 1 tablet by mouth two times a day. Date of last office visit in primary care: 06/23/2024 Date of next office visit in primary care: 09/23/2024 Please advise. Thank you. Eliza Driscoll. documented in this encounterOur [facility]12-05-2024 NoteHNO ID: [id number] Author: MIRYAM WEBBER RPFT Service: ? Author Type: Respiratory Therapist Type: Procedures Filed: 07/01/2024 14:32 Note Text: RESPIRATORY THERAPY OXIMETRY WITH AMBULATION Oximetry with Ambulation Test for This Encounter O2 Device O2 Adapter NC O2 Flow SpO2% HR Activity Ft Walked (ft) Time (min) Avg Speed (MPH) NC 3 90 80 Resting NC 3 87 86 Walking, usual pace 100 1 1.14 NC 4 92 71 Resting NC 4 91 84 Walking, usual pace 200 3 0.76 General Information Pulse Oximetry Site Total Time Spent Walking Assistance/O2 Supply Carrier R Index Finger 30 None NAME: Miryam Webber RPSHAUNA PATIENT NAME: Kam Greenberg DATE: July 01, 2024 TIME: 2:32 PM Comment: (Patient ambulated on own portable unit per provider request.)[facility]12-05-2024 Procedure note* Lawanda PETEY Witt - 07/01/2024 2:32 PM ESTAssociated Order(s): OXIMETRY WITH AMBULATION RESPIRATORY THERAPY OXIMETRY WITH AMBULATION Oximetry with Ambulation Test for This Encounter O2 Device O2 Adapter NC O2 Flow SpO2% HR Activity Ft Walked (ft) Time (min) Avg Speed (MPH) NC 3 90 80 Resting NC 3 87 86 Walking, usual pace 100 1 1.14 NC 4 92 71 Resting NC 4 91 84 Walking, usual pace 200 3 0.76 General Information Pulse Oximetry Site Total Time Spent Walking Assistance/O2 Supply Carrier R Index Finger 30 None NAME: Miryam WebberPETEY PATIENT NAME: Kam Greenberg DATE: July 01, 2024 TIME: 2:32 PM Comment: (Patient ambulated on own portable unit per provider request.) [facility]12-05-[facility] Procedure note* Miryam Webber RPFT - 07/01/2024 2:32 PM ESTAssociated Order(s): OXIMETRY WITH AMBULATION RESPIRATORY THERAPY OXIMETRY WITH AMBULATION Oximetry with Ambulation Test for This Encounter O2 Device O2 Adapter NC O2 Flow SpO2% HR Activity Ft Walked (ft) Time (min) Avg Speed (MPH) NC 3 90 80 Resting NC 3 87 86 Walking, usual pace 100 1 1.14 NC 4 92 71 Resting NC 4 91 84 Walking, usual pace 200 3 0.76 General Information Pulse Oximetry Site Total Time Spent Walking Assistance/O2 Supply Carrier R Index Finger 30 None NAME: PETEY Ortiz PATIENT NAME: Kam Greenberg DATE: July 01, 2024 TIME: 2:32 PM Comment: (Patient ambulated on own portable unit per provider request.) documented in this encounterOur [facility]12-05-2024 NoteHNO ID: [id number] Author: MIRYAM WEBBER RPSHAUNA Service: ? Author Type: Respiratory Therapist Type: Progress Notes Filed: 07/01/2024 14:32 Note Text: PULM FUNCTION: Provider: Clark Rothman MD Assisting Tech: Petterri, Miryam, RPFT Oximetry - Ambulation: [address] [place], [place] [address]12-05-2024 History of Present illness Narrative* Miryam Webber RPFT - 07/01/2024 2:28 PM EST PULM FUNCTION: Provider: Clark Rothman MD Assisting Tech: Petterri, Miryam, RPFT Oximetry - Ambulation: 1 documented in this encounterOur [facility] Of [facility]24 NoteHNO ID: [id number] Author: MIRYAM WEBBER RPFT Service: ? Author Type: Respiratory Therapist Type: Progress Notes Filed: 07/01/2024 14:04 Note Text: PULM FUNCTION: Provider: Clark Rothman MD Assisting Tech: Petterri, Miryam, RPFT Spirometry w/BD: [address] [place], [place] [address]12-05-2024 History of Present illness Narrative* Miryam Webber RPFT - 07/01/2024 1:51 PM EST PULM FUNCTION: Provider: Clark Rothman MD Assisting Tech: Petterri, Miryam, RPFT Spirometry w/BD: 1 documented in this encounterOur [facility] Of [facility]12-05-2024 Instructions* Patient Instructions* Sharon Lubin LPN - 07/01/2024 1:45 PM EST [facility] Program. Kayla Garcia [phone] ext [phone] they have wandy for low income residents that need help with home repairs. Website says accepting applications. documented in this encounterOur Lady Of [facility]12-05-2024 Nurse Note* Sharon Lubin LPN - 07/01/2024 1:22 PM EST Patient ambulated to exam room on 3L pulsed dose O2. Saturations of 77-79%. Unable to bring SPO2 above 85% on home O2 after 5 minutes of rest. Placed on 3L CF and saturations improved to 92-93% Sharon Lubin LPN [facility]12-05-[facility]24 Nurse Note* Sharon Lubin LPN - 07/01/2024 1:22 PM EST Patient ambulated to exam room on 3L pulsed dose O2. Saturations of 77-79%. Unable to bring SPO2 above 85% on home O2 after 5 minutes of rest. Placed on 3L CF and saturations improved to 92-93% Sharon Lubin LPN documented in this encounterOur Lady Of [facility]12-05-2024 History of Present illness Narrative* Clark Rothman MD - 07/01/2024 1:15 PM EST Images from the original note were not included. . [facility] [place] Note Patient name: Kam Greenberg PCP: Royce Carroll MD CC: Follow-up COPD HPI: Kam Greenberg 73 year old male some day smoker 52 pack year smoker, quitting in 2022 with PMH significant for severe COPD/GOLD stage 3, chronic hypoxemic respiratory failure, CVA, HLD, PAD, CAD s/p stent and CABG, CKD, dysphagia presenting for follow-up. Current therapy with Trelegy Elllipta. Overdue for lung cancer screening. Oxygen saturation initially low when he walked into. He is using 3 L pulse mode. From a respiratory standpoint he has significant dyspnea with exertion. No chronic cough or sputum production. No wheezing or chest pain. He has not been ill with any upper respiratory infection nor required hospitalization. No his Trelegy Ellipta. DME: Integrated 3 L DATA: Pulmonary function test show very severe obstruction with improvement in those postbronchodilator Imaging / Diagnostic Studies: DATE OF EXAM: Oct 29 2022 2:58PM [facility] 0562 - CT LUNG SCREEN WO IVCON / IMPRESSION: LungRADS category: 2 S PAST MEDICAL HISTORY Diagnosis Date Acute on chronic respiratory failure with hypoxia (HCC) 01/15/2023 Acute, but ill-defined, cerebrovascular disease 03/17/2007 Left arm weakness Anxiety disorder 01/31/2009 Chronic obstructive pulmonary disease with (acute) exacerbation ([facility]) 12/11/2022 Coronary atherosclerosis 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 11/06/2005 Degeneration of thoracolumbar intervertebral disc 11/06/2005 compression fractures Diabetes mellitus ([facility]) Dysmetabolic syndrome X Esophageal reflux Essential tremor 11/23/2015 Generalized osteoarthrosis, unspecified site 10/16/2005 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 CVA (cerebrovascular accident) 03/17/2007 Left arm weakness CO (myocardial infarction) ([facility]) 1999 Other and unspecified hyperlipidemia Peripheral vascular disease ([facility]) 11/06/2005 Polyneuropathy in diabetes(357.2) 11/07/2005 S/P CABG x 3 06/06/2015 S/P coronary artery stent placement 06/06/2015 ST elevation CO (STEMI) ([facility]) 03/2013 Stage 3a chronic kidney disease ([facility]) 04/17/2018 Stenosis of left carotid artery 04/03/2016 Unspecified chronic bronchitis ([facility]) 06/07/2008 ALLERGIES Allergen Reactions Lisinopril Angioedema Morphine Shortness of Breath rapid heart rate Oysters GI Upset Tylenol [Acetaminop* Dystonia flushed, cold sweats, shakey ptprgzkbrim-jbbixtwpy-rkrbvnqn (TRELEGY ELLIPTA) 100-62.5-25 mcg inhalation powder Inhale 1 Puff asinstructed once daily. doxycycline (VIBRA-TABS) 100 mg tablet Take 1 tablet by mouth two times a day for 10 days. atorvastatin (LIPITOR) 40 mg tablet Take 1 tablet by mouth daily at bedtime. metoprolol tartrate, short acting, (LOPRESSOR) 50 mg tablet Take 1 tablet by mouth two times a day. ipratropium-albuterol (DUONEB) 0.5 mg-3 mg(2.5 mg base)/3 mL nebu Inhale 3 mL as instructed four times daily. amLODIPine (NORVASC) 5 mg tablet Take 1 tablet by mouth once daily. blood sugar diagnostic (BLOOD GLUCOSE TEST) test strip Test blood sugar(s) 2 times daily. Dx: OtherDM Code E11.41 Insulin: No fluticasone (FLONASE) 50 mcg/actuation nasal spray Use 1 [place] in each nostril two times a day. clopidogrel (PLAVIX) 75 mg tablet Take 1 tablet by mouth once daily. metFORMIN (GLUCOPHAGE) 500 mg tablet Take 1 tablet by mouth two times a day with meals. sertraline (ZOLOFT) 100 mg tablet Take 1 tablet by mouth once daily. albuterol HFA (VENTOLIN HFA) 90 mcg/actuation inhaler Inhale 2 Puffs as instructed every 4 hours asneeded for wheezing/shortness of breath. primidone (MYSOLINE) 50 mg tablet Take 1 tablet by mouth two times a day. Blood-Glucose Meter monitoring kit Glucose Meter of Choice - Kit - Dx: Other DM Code E11.49 saw/vit E/sod miguel/lyc/beta/pyg (PROSTATE HEALTH ORAL) Take 3 tablets by mouth once daily. multivit with minerals/lutein (MULTI-ISABELLE 50 AND OVER ORAL) Take 1 tablet by mouth once daily. nitroglycerin sublingual (NITROSTAT) 0.4 mg SL tablet Dissolve 1 tablet under the tongue every 5 minutes as needed. aspirin, enteric coated (ADULT LOW DOSE ASPIRIN) 81 mg EC tablet Take 1 tablet by mouth once daily. Social History Tobacco Use Smoking status: Some Days Current packs/day: 0.00 Average packs/day: 1 pack/day for 55.1 years (55.1 ttl pk-yrs) Types: Cigarettes Start date: 1967 Last attempt to quit: 12/11/2022 Years since quittin.5 Smokeless tobacco: Never Tobacco comments: Smokers in the home. Vaping Use Vaping status: Never Used Substance Use Topics Alcohol use: Not Currently Comment: rare NAB Drug use: No FAMILY HISTORY Problem Relation Age of Onset other (Brain Ca) Mother other (CVA) Father , aneurysm other (CO) Father other (Other) Brother natural causes. None Brother no information. None Brother Cancer Son , testicular ca PAST SURGICAL HISTORY Procedure Laterality Date CABG, ARTERIAL, THREE 1999 CABG x3 PAST SURGICAL HISTORY OF 1963 Ankle and Feet surgeries d.t. Polio RPR 1ST INGUN HRNA AGE 6 YRS/> REDUCIBLE 1957 Hernia repair, inguinal, right TRANSCATH STENT INIT VESSEL,PERCUT MARKUS to SVG to RCA & MARKUS to SVG to OM PMH, Social history, family history and surgical history reviewed and updated in EMR REVIEW OF SYSTEMS: CONSTITUTIONAL: No fevers, chills, nightsweats, unintended weight loss HEENT: Denies nasal congestion/sinus symptoms. CARDIOVASCULAR: No chest pain, palpitations, edema. PULM: See HPI GI: No dysphagia/odynophagia, problematic reflux NEURO: No balance problems, peripheral weakness/paresthesias or numbness of concern. INTEGUMENTARY: No new skin changes PHYSICAL EXAMINATION: BP 112/64, pulse 64, RR 20, SpO2 92% on 3 L General Appearance: Elderly male, NAD. Skin: Skin color, texture, turgor normal, no suspicious rashes or lesions. Eyes: Sclera, conjunctiva normal. Oropharynx: Upper plate, no lesions. Neck: No JVD, no masses, no adenopathy. Lungs: Not labored, very diminished breath sounds. Heart: Regular rate and rhythm, no murmurs gallops. Extremities: No edema or clubbing. Assessment/Plan: 1. Very severe COPD, GOLD stage IV -Admits to intermittent smoking. Complete abstinence from tobacco strongly encouraged -Progression of his COPD. He will continue with Trelegy Ellipta and as needed albuterol 2. Chronic hypoxemic respiratory failure -Ambulation assessment today indicates need for 4 L with activity 3. Current some days smoker -Complete abstinence from tobacco strongly encouraged -Needs to be scheduled for his lung cancer screening CT Clark Rothman MD [facility] [place] documented in this encounterOur [facility] Of [facility]12-05-[facility]24 NoteHNO ID: [id number] Author: CLARK ROTHMAN MD Service: ? Author Type: Physician Type: Progress Notes Filed: 07/01/2024 15:05 Note Text: . Respiratory [place] Note Patient name: Kam Greenberg PCP: Royce Carroll MD CC: Follow-up COPD HPI: Kam Greenberg 73 year old male some day smoker 52 pack year smoker, quitting in 2022 with PMH significant for severe COPD/GOLD stage 3, chronic hypoxemic respiratory failure, CVA, HLD, PAD, CAD s/p stent and CABG, CKD, dysphagia presenting for follow-up. Current therapy with Trelegy Elllipta. Overdue for lung cancer screening. Oxygen saturation initially low when he walked into. He is using 3 L pulse mode. From a respiratory standpoint he has significant dyspnea with exertion. No chronic cough or sputum production. No wheezing or chest pain. He has not been ill with any upper respiratory infection nor required hospitalization. No his Trelegy Ellipta. DME: Integrated 3 L DATA: Pulmonary function test show very severe obstruction with improvement in those postbronchodilator Imaging / Diagnostic Studies: DATE OF EXAM: Oct 29 2022 2:58PM [facility] 0562 - CT LUNG SCREEN WO IVCON / IMPRESSION: LungRADS category: 2 S 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 11/06/2005 Degeneration of thoracolumbar intervertebral disc 11/06/2005 compression fractures Diabetes mellitus (HCC) Dysmetabolic syndrome X Esophageal reflux Essential tremor 11/23/2015 Generalized osteoarthrosis, unspecified site 10/16/2005 Late effects of acute poliomyelitis 195 Late effects of CVA (cerebrovascular accident) 03/17/2007 Left arm weakness CO (myocardial infarction) (HCC) 1999 Other and unspecified hyperlipidemia Peripheral vascular disease ([facility]) 11/06/2005 Polyneuropathy in diabetes(357.2) 11/07/2005 S/P CABG x 3 06/06/2015 S/P coronary artery stent placement 06/06/2015 ST elevation CO (STEMI) ([facility]) 03/2013 Stage 3a chronic kidney disease ([facility]) 04/17/2018 Stenosis of left carotid artery 04/03/2016 Unspecified chronic bronchitis ([facility]) 06/07/2008 ALLERGIES Allergen Reactions Lisinopril Angioedema Morphine Shortness of Breath rapid heart rate Oysters GI Upset Tylenol [Acetaminop* Dystonia flushed, cold sweats, shakey fqoykkmzuwg-yrseqqrzn-ncwvtjgk (TRELEGY ELLIPTA) 100-62.5-25 mcg inhalation powder Inhale 1 Puff as instructed once daily. doxycycline (VIBRA-TABS) 100 mg tablet Take 1 tablet by mouth two times a day for 10 days. atorvastatin (LIPITOR) 40 mg tablet Take 1 tablet by mouth daily at bedtime. metoprolol tartrate, short acting, (LOPRESSOR) 50 mg tablet Take 1 tablet by mouth two times a day. ipratropium-albuterol (DUONEB) 0.5 mg-3 mg(2.5 mg base)/3 mL nebu Inhale 3 mL as instructed four times daily. amLODIPine (NORVASC) 5 mg tablet Take 1 tablet by mouth once daily. blood sugar diagnostic (BLOOD GLUCOSE TEST) test strip Test blood sugar(s) 2 times daily. Dx: Other DM Code E11.41 Insulin: No fluticasone (FLONASE) 50 mcg/actuation nasal spray Use 1 [place] in each nostril two times a day. clopidogrel (PLAVIX) 75 mg tablet Take 1 tablet by mouth once daily. metFORMIN (GLUCOPHAGE) 500 mg tablet Take 1 tablet by mouth two times a day with meals. sertraline (ZOLOFT) 100 mg tablet Take 1 tablet by mouth once daily. albuterol HFA (VENTOLIN HFA) 90 mcg/actuation inhaler Inhale 2 Puffs as instructed every 4 hours as needed for wheezing/shortness of breath. primidone (MYSOLINE) 50 mg tablet Take 1 tablet by mouth two times a day. Blood-Glucose Meter monitoring kit Glucose Meter of Choice - Kit - Dx: Other DM Code E11.49 saw/vit E/sod miguel/lyc/beta/pyg (PROSTATE HEALTH ORAL) Take 3 tablets by mouth once daily. multivit with minerals/lutein (MULTI-ISABELLE 50 AND OVER ORAL) Take 1 tablet by mouth once daily. nitroglycerin sublingual (NITROSTAT) 0.4 mg SL tablet Dissolve 1 tablet under the tongue every 5 minutes as needed. aspirin, enteric coated (ADULT LOW DOSE ASPIRIN) 81 mg EC tablet Take 1 tablet by mouth once daily. Social History Tobacco Use Smoking status: Some Days Current packs/day: 0.00 Average packs/day: 1 pack/day for 55.1 years (55.1 ttl pk-yrs) Types: Cigarettes Start date: 1967 Last attempt to quit: 12/11/2022 Years since quittin.5 Smokeless tobacco: Never Tobacco comments: Smokers in the home. Vaping Use Vaping status: Never Used Substance Use Topics Alcohol use: Not Currently Comment: rare NAB Drug use: No FAMILY HISTORY Problem Relation Age of Onset other (Brain Ca) Mother other (more content not included)...[facility]12-04-2024 Telephone encounter Note* Telephone Encounter - Danelle Eng RN - 06/30/2024 4:03 PM EST Spoke with patient. Given message from provider's office. Patient verbalizes understanding. Danelle Eng RN [facility] Miscellaneous Notes* Telephone Encounter - Danelle Eng RN - 06/30/2024 4:03 PM EST Spoke with patient. Given message from provider's office. Patient verbalizes understanding. Danelle Eng RN * Telephone Encounter - Milad Kowalski LPN - 06/28/2024 7:27 PM EST Attempted to call, is full unable to leave [facility] [place]. Milad Kowalski LPN * Telephone Encounter - Behzad Nunez LPN - 06/26/2024 9:34 AM EST Phoned patient voicemail is full could not leave a message. * Telephone Encounter - Behzad Nunez LPN - 06/26/2024 9:32 AM EST ----- Message from Royce Carroll MD sent at 06/25/2024 6:55 PM EST ----- Test results are okay. documented in this encounterOur [facility]12-[facility]24 Telephone encounter Note * Telephone Encounter - Milad Kowalski LPN - 06/28/2024 7:27 PM EST Attempted to call, vm is full unable to leave msg. Milad Kowalski LPN [facility]-30-[facility] Telephone encounter Note* Telephone Encounter - Behzad Nunez LPN - 06/26/2024 9:34 AM EST Phoned patient voicemail is full could not leave a message. [facility] Telephone encounter Note* Telephone Encounter - Behzad Nunez LPN - 06/26/2024 9:32 AM EST ----- Message from Royce Carroll MD sent at 06/25/2024 6:55 PM EST ----- Test results are okay. [facility] Instructions* Patient Instructions* Royce Carroll MD - 06/23/2024 3:56 PM EST BLOOD WORK TODAY FOR ANEMIA. FASTING BLOOD WORK IN AUGUST 2024. documented in this encounterOur Lady Of [facility]11-27-2024 NoteHNO ID: [id number] Author: ROYCE CARROLL MD Service: ? Author Type: Physician Type: Progress Notes Filed: 06/23/2024 18:30 Note Text: This note was created using [employer]. Subjective Kam Greenberg is a 73 year old male. He complained of a recurrent soreness in his left nostril. He had squeezed this in the past and obtained purulent material. He went to several weeks ago and was prescribed an antibiotic with temporary relief. He had no current drainage, significant pain, or fever. His blood pressure was elevated today. He had no other concerns. He did not do his follow up labs for anemia. Review of Systems Constitutional: Negative for chills, diaphoresis, fatigue and fever. HENT: Negative for congestion, mouth sores, nosebleeds, sinus pain and sore throat. Respiratory: Negative. Cardiovascular: Negative for chest pain, palpitations and leg swelling. Gastrointestinal: Negative. Neurological: Negative for dizziness and headaches. 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, Without Long-Term Current Use of Insulin ([facility]) At Risk for Falls Abnormality of Gait Chronic Obstructive Pulmonary Disease With (Acute) Exacerbation ([facility]) Chronic Respiratory Failure With Hypoxia ([facility]) Chronic Diastolic Chf (Congestive Heart Failure) ([facility]) Svt (Supraventricular Tachycardia) ([facility]) Social History Tobacco Use Smoking status: Former Current packs/day: 0.00 Average packs/day: 1 pack/day for 55.1 years (55.1 ttl pk-yrs) Types: Cigarettes Start date: 1967 Quit date: 12/11/2022 Years since quittin.5 Smokeless tobacco: Never Tobacco comments: Smokers in the home. Vaping Use Vaping status: Never Used Substance Use Topics Alcohol use: Not Currently Comment: rare NAB Drug use: No Current Outpatient Medications Medication Sig atorvastatin (LIPITOR) 40 mg tablet Take 1 tablet by mouth daily at bedtime. wbhljgyqdxv-ngnyfviam-asrbzzuq (TRELEGY ELLIPTA) 100-62.5-25 mcg inhalation powder Inhale 1 Puff as instructed once daily. metoprolol tartrate, short acting, (LOPRESSOR) 50 mg tablet Take 1 tablet by mouth two times a day. ipratropium-albuterol (DUONEB) 0.5 mg-3 mg(2.5 mg base)/3 mL nebu Inhale 3 mL as instructed four times daily. amLODIPine (NORVASC) 5 mg tablet Take 1 tablet by mouth once daily. blood sugar diagnostic (BLOOD GLUCOSE TEST) test strip Test blood sugar(s) 2 times daily. Dx: Other DM Code E11.41 Insulin: No fluticasone (FLONASE) 50 mcg/actuation nasal spray Use 1 [place] in each nostril two times a day. clopidogrel (PLAVIX) 75 mg tablet Take 1 tablet by mouth once daily. metFORMIN (GLUCOPHAGE) 500 mg tablet Take 1 tablet by mouth two times a day with meals. sertraline (ZOLOFT) 100 mg tablet Take 1 tablet by mouth once daily. albuterol HFA (VENTOLIN HFA) 90 mcg/actuation inhaler Inhale 2 Puffs as instructed every 4 hours as needed for wheezing/shortness of breath. primidone (MYSOLINE) 50 mg tablet Take 1 tablet by mouth two times a day. Blood-Glucose Meter monitoring kit Glucose Meter of Choice - Kit - Dx: Other DM Code E11.49 saw/vit E/sod miguel/lyc/beta/pyg (PROSTATE HEALTH ORAL) Take 3 tablets by mouth once daily. multivit with minerals/lutein (MULTI-ISABELLE 50 AND OVER ORAL) Take 1 tablet by mouth once daily. nitroglycerin sublingual (NITROSTAT) 0.4 mg SL tablet Dissolve 1 tablet under the tongue every 5 minutes as needed. aspirin, enteric coated (ADULT LOW DOSE ASPIRIN) 81 mg EC tablet Take 1 tablet by mouth once daily. doxycycline (VIBRA-TABS) 100 mg tablet Take 1 tablet by mouth two times a day for 10 days. No current facility-administered medications for this visit. Objective BP 134/60 (BP Site: Left Arm, BP Position: Sitting, BP Cuff Size: Large Adult) Pulse 92 Temp 36.4 ?C (97.5 ?F) (Temporal) Wt 81.8 kg (180 lb 5.4 oz) SpO2 93% BMI 23.63 kg/m? Physical Exam Constitutional: General: He is not in acute distress. Appearance: He is not ill-appearing. Comments: Portable O2. HENT: Nose: No nasal tenderness, congestion or rhinorrhea. Right Nostril: No epistaxis. Left Nostril: No epistaxis. Right Sinus: No maxillary sinus tenderness or frontal sinus tenderness. Left Sinus: No maxillary sinus tenderness or frontal sinus tenderness. Comments: Firm nodule left nares, septal opening. No ulceration or drainage. Mild tenderness. Cardiovascular: Rate and Rhythm: Reg (more content not included)...[facility] 06-23-2024 History of Present illness Narrative* Royce Carroll MD - 06/23/2024 3:33 PM EST This note was created using [employer]. Subjective Kam Greenberg is a 73 year old male. He complained of a recurrent soreness in his left nostril. He had squeezed this in the past and obtained purulent material. He went to several weeks ago andwas prescribed an antibiotic with temporary relief. He had no current drainage, significant pain, or fever. His blood pressure was elevated today. He had no other concerns. He did not do his follow up labs for anemia. Review of Systems Constitutional: Negative for chills, diaphoresis, fatigue and fever. HENT: Negative for congestion, mouth sores, nosebleeds, sinus pain and sore throat. Respiratory: Negative. Cardiovascular: Negative for chest pain, palpitations and leg swelling. Gastrointestinal: Negative. Neurological: Negative for dizziness and headaches. ACTIVE PROBLEM LIST Hyperlipemia Coronary Atherosclerosis Generalized Osteoarthrosis, Unspecified Site Degeneration of Thoracolumbar Intervertebral Disc Essential Hypertension Late Effects of Cva (Cerebrovascular Accident) Type 2 Diabetes Mellitus With Diabetic Mononeuropathy, Without Long-Term Current Use of Insulin ([facility]) Rhinitis Anxiety Disorder S/P Coronary Artery Stent Placement S/P Cabg X 3 Essential Tremor Stenosis of Left Carotid Artery Stage 3a Chronic Kidney Disease ([facility]) Type 2 Diabetes Mellitus With Diabetic Peripheral Angiopathy Without Gangrene, Without Long-Term Current Use of Insulin ([facility]) At Risk for Falls Abnormality of Gait Chronic Obstructive Pulmonary Disease With (Acute) Exacerbation ([facility]) Chronic Respiratory Failure With Hypoxia ([facility]) Chronic Diastolic Chf (Congestive Heart Failure) ([facility]) Svt (Supraventricular Tachycardia) ([facility]) Social History Tobacco Use Smoking status: Former Current packs/day: 0.00 Average packs/day: 1 pack/day for 55.1 years (55.1 ttl pk-yrs) Types: Cigarettes Start date: 1967 Quit date: 12/11/2022 Years since quittin.5 Smokeless tobacco: Never Tobacco comments: Smokers in the home. Vaping Use Vaping status: Never Used Substance Use Topics Alcohol use: Not Currently Comment: rare NAB Drug use: No Current Outpatient Medications Medication Sig atorvastatin (LIPITOR) 40 mg tablet Take 1 tablet by mouth daily at bedtime. vwczubmlrsa-pxpxfzuaa-urzkxdnb (TRELEGY ELLIPTA) 100-62.5-25 mcg inhalation powder Inhale 1 Puff asinstructed once daily. metoprolol tartrate, short acting, (LOPRESSOR) 50 mg tablet Take 1 tablet by mouth two times a day. ipratropium-albuterol (DUONEB) 0.5 mg-3 mg(2.5 mg base)/3 mL nebu Inhale 3 mL as instructed four times daily. amLODIPine (NORVASC) 5 mg tablet Take 1 tablet by mouth once daily. blood sugar diagnostic (BLOOD GLUCOSE TEST) test strip Test blood sugar(s) 2 times daily. Dx: OtherDM Code E11.41 Insulin: No fluticasone (FLONASE) 50 mcg/actuation nasal spray Use 1 [place] in each nostril two times a day. clopidogrel (PLAVIX) 75 mg tablet Take 1 tablet by mouth once daily. metFORMIN (GLUCOPHAGE) 500 mg tablet Take 1 tablet by mouth two times a day with meals. sertraline (ZOLOFT) 100 mg tablet Take 1 tablet by mouth once daily. albuterol HFA (VENTOLIN HFA) 90 mcg/actuation inhaler Inhale 2 Puffs as instructed every 4 hours asneeded for wheezing/shortness of breath. primidone (MYSOLINE) 50 mg tablet Take 1 tablet by mouth two times a day. Blood-Glucose Meter monitoring kit Glucose Meter of Choice - Kit - Dx: Other DM Code E11.49 saw/vit E/sod miguel/lyc/beta/pyg (PROSTATE HEALTH ORAL) Take 3 tablets by mouth once daily. multivit with minerals/lutein (MULTI-ISABELLE 50 AND OVER ORAL) Take 1 tablet by mouth once daily. nitroglycerin sublingual (NITROSTAT) 0.4 mg SL tablet Dissolve 1 tablet under the tongue every 5 minutes as needed. aspirin, enteric coated (ADULT LOW DOSE ASPIRIN) 81 mg EC tablet Take 1 tablet by mouth once daily. doxycycline (VIBRA-TABS) 100 mg tablet Take 1 tablet by mouth two times a day for 10 days. No current facility-administered medications for this visit. Objective BP 134/60 (BP Site: Left Arm, BP Position: Sitting, BP Cuff Size: Large Adult) Pulse 92 Temp 36.4 C (97.5 F) (Temporal) Wt 81.8 kg (180 lb 5.4 oz) SpO2 93% BMI 23.63 kg/m Physical Exam Constitutional: General: He is not in acute distress. Appearance: He is not ill-appearing. Comments: Portable O2. HENT: Nose: No nasal tenderness, congestion or rhinorrhea. Right Nostril: No epistaxis. Left Nostril: No epistaxis. Right Sinus: No maxillary sinus tenderness or frontal sinus tenderness. Left Sinus: No maxillary sinus tenderness or frontal sinus tenderness. Comments: Firm nodule left nares, septal opening. No ulceration or drainage. Mild tenderness. Cardiovascular: Rate and Rhythm: Regular rhythm. Tachycardia present. Heart sounds: No murmur heard. No gallop. Pulmonary: Effort: No respiratory distress. Breath sounds: Rhonchi present. No wheezing or rales. Abdominal: General: There is no distension. Tenderness: There is no abdominal tenderness. Musculoskeletal: Right lower leg: No edema. Left lower leg: No edema. Lymphadenopathy: Cervical: No cervical adenopathy. Neurological: General: No focal deficit present. Mental Status: He is alert. Gait: Gait abnormal. Assessment and Plan 1. Nasal sore - ICD9: 478.19, ICD10: J34.89 (primary diagnosis) - Shared medical decision making was done. We agreed to repeat doxycycline. He was instructed to call if this does not improve, and he will be referred to ENT. - DOXYCYCLINE HYCLATE 100 MG TABLET 2. Essential hypertension - ICD9: 401.9, ICD10: I10 - Worsening control - Continue current medications - Recommend home blood pressure monitoring, to bring results to next visit - Encouraged sodium restriction, DASH or Mediterranean diet 3. Type 2 diabetes mellitus with diabetic mononeuropathy, without long-term current use of insulin (HCC) - ICD9: 250.60, 355.9, ICD10: E11.41 - Controlled - Continue current medications - COMPREHENSIVE METABOLIC PANEL - LIPID PANEL BASIC - HEMOGLOBIN A1C - ALBUMIN/CREATININE RATIO, URINE 4. Chronic respiratory failure with hypoxia (HCC) - ICD9: 518.83, 799.02, ICD10: J96.11 - Continue Portable O2. - Reschedule lung cancer screening. 5. Anemia, unspecified type - ICD9: 285.9, ICD10: D64.9 - Follow up labs today, and in 3 months. - COMPLETE BLOOD COUNT Royce Carroll MD documented in this encounterOur [facility] NoteHNO ID: [id number] Author: OLU MILLER, ? Service: ? Author Type: Physician Type: Progress Notes Filed: 06/05/2024 06:27 Note Text: Last saw pcp: 03/22/24 Subjective: Patient presents to clinic c/o painful toenails. They state that the nails are especially painful with shoe gear and pressure. Patient states that nails 1-5 b/l are painful. Patient admits to being diabetic. No other pedal complaints at this time. Patient states no change in medications or medical history since last visit. Objective: Patient presents to clinic ambulating in sneakers Vasc: DP and PT pulses are faintly palpable bilateral. CFT is less than 5 seconds bilateral. Skin temperature is warm to cool proximal to distal bilateral. There is moderate edema or varicosities noted. Neuro: Protective sensation is decreased to the foot and toes when tested with the 5.07 SWM bilateral. Vibratory sensation is absent at the hallux IPJ bilateral. The hallux is downgoing bilateral. Derm: Nails 1-5 b/l are painful, discolored-yellow, thick, crumbly, dystrophic and with subungal debris. Skin is of normal turgor, texture and hair growth is decreased bilateral. There are no hyperkeratosis, ulcerations, scars, verruca or other lesions noted. Ortho: Muscle strength is 5/5 for all pedal groups tested. Ankle joint DF is decreased with the knee extended with no pain or crepitus noted. 1st MPJ ROM is decreased bilateral. Assessment: (B35.1) Onychomycosis (primary encounter diagnosis) (M79.675) Pain in toe of left foot (M79.674) Pain in toe of right foot (E11.42) Diabetic polyneuropathy associated with type 2 diabetes mellitus (HCC) Plan: Patient was seen and evaluated. Nails 1-5 bilateral were debrided in length and thickness. Patient was instructed on the continued importance of diabetic foot care along with proper diet and keeping their blood sugar under control to prevent complications. Stressed the importance of avoiding barefoot walking, wearing good shoes and inspection of feet daily. Patient is to RTC in 3-4 months. Olu Miller [facility]11-07-2024 History of Present illness Narrative* Karstendontrell Olu - 06/03/2024 1:09 PM EST Last saw pcp: 03/22/24 Subjective: Patient presents to clinic c/o painful toenails. They state that the nails are especially painful with shoe gear and pressure. Patient states that nails 1-5 b/l are painful. Patient admits to being diabetic. No other pedal complaints at this time. Patient states no change in medications or medical history since last visit. Objective: Patient presents to clinic ambulating in sneaker Vasc: DP and PT pulses are faintly palpable bilateral. CFT is less than 5 seconds bilateral. Skin temperature is warm to cool proximal to distal bilateral. There is moderate edema or varicosities noted. Neuro: Protective sensation is decreased to the foot and toes when tested with the 5.07 SWM bilateral. Vibratory sensation is absent at the hallux IPJ bilateral. The hallux is downgoing bilateral. Derm: Nails 1-5 b/l are painful, discolored-yellow, thick, crumbly, dystrophic and with subungal debris. Skin is of normal turgor, texture and hair growth is decreased bilateral. There are no hyperkeratosis, ulcerations, scars, verruca or other lesions noted. Ortho: Muscle strength is 5/5 for all pedal groups tested. Ankle joint DF is decreased with the knee extended with no pain or crepitus noted. 1st MPJ ROM is decreased bilateral. Assessment: (B35.1) Onychomycosis (primary encounter diagnosis) (M79.675) Pain in toe of left foot (M79.674) Pain in toe of right foot (E11.42) Diabetic polyneuropathy associated with type 2 diabetes mellitus (HCC) Plan: Patient was seen and evaluated. Nails 1-5 bilateral were debrided in length and thickness. Patient was instructed on the continued importance of diabetic foot care along with proper diet and keeping their blood sugar under control to prevent complications. Stressed the importance of avoiding barefoot walking, wearing good shoes and inspection of feet daily. Patient is to RTC in 3-4 months. Olu Miller DPM * Xi Finn LPN - 06/03/2024 1:05 PM EST AMB ROOMING INTAKE FLOWSHEET DATA Pain Pain Level: 5 Pain Location: Other: See Comment (bilateral feet) Description: Sore Duration Units: Weeks Frequency: Intermittent Intervention/Comfort measure: Relaxation, Reposition Patient presents with: Left Foot - Established Patient, Diabetic Foot Care Right Foot - Established Patient, Diabetic Foot Care Xi Finn LPN documented in this encounterOur [facility] [place] Instructions* Patient Instructions* Olu Miller - 06/03/2024 1:09 PM EST Diabetes Foot Care Instructions When you have diabetes, proper foot care is very important. Poor foot care may lead to amputation of a foot or leg. As a person with diabetes, you are more vulnerable to foot problems, because diabetes can damage your nerves and reduce blood flow to your feet. Here are some diabetes foot care tips to follow: Wash and Dry Your Feet Daily Use mild soaps Use warm water Pat your skin dry; do not rub. Thoroughly dry your feet. After washing, use lotion on your feet to prevent cracking. Do not put lotion between your toes. Examine Your Feet Each Day Check the tops and bottoms of your feet. Have someone else look at your feet if you cannot see them. Check for dry, cracked skin. Look for blisters, cuts, scratches, or other sores. Check for redness, increased warmth, or tenderness when touching any area of your feet. Check for ingrown toenails, corns, and calluses. If you get a blister or sore from your shoes, do not pop it. Apply a bandage and wear a differentpair of shoes. Take Care of Your Toenails Cut toenails after bathing, when they are soft. Cut toenails straight across and smooth with a nail file. Avoid cutting into the corners of toes. Do not cut cuticles. If you have neuropathy (or decreased sensation in your feet) a non destructive testing inspector should always cut your toenails. Be Careful When Exercising Walk and exercise in comfortable shoes. Do not exercise when you have open sores on your feet. Protect Your Feet With Shoes and Socks Never go barefoot. Always protect your feet by wearing shoes or hard-soled slippers or footwear. Avoid shoes with high heels and pointed toes. Avoid shoes that expose your toes or heels (such as open-toed shoes or sandals). These types of shoes increase your risk for injury and potential infections. Try on new footwear with the type of socks you usually wear. Do not wear new shoes for more than an hour at a time. Change your socks daily. Look and feel inside your shoes before putting them on to make sure there are no foreign objects orrough areas. Avoid tight socks. Wear natural-fiber socks (cotton, wool, or a cotton-wool blend). Wear special shoes if your health care provider recommends them. Wear shoes/boots that will protect your feet from various weather conditions (cold, moisture, etc.). Make sure your shoes fit properly. If you have neuropathy (nerve damage), you may not notice that your shoes are too tight. Perform the footwear test described below. Footwear Test Use this simple test to see if your shoes fit correctly: Stand on a piece of paper. (Make sure you are standing and not sitting, because your foot changes shape when you stand.) Trace the outline of your foot. Trace the outline of your shoe. Compare the tracings: Is the shoe too narrow? Is your foot crammed into the shoe? The shoe should be at least 1/2 inch longer than your longest toe and as wide as your foot. Proper Shoe Choices The following types of shoes are best for people with diabetes Closed toes and heels Leather uppers without a seam inside At least 1/2 inch extra space at the end of your longest toe Inside of shoe should be soft with no rough areas Outer sole should be made of stiff material Shoes should be at least as wide as your feet Tips for Foot Care in Diabetes Don't wait to treat a minor foot problem if you have diabetes. Follow your health care provider's guidelines and first aid guidelines. Report foot injuries and infections to your health care provider immediately. Check water temperature with your elbow, not your foot. Do not use a heating pad on your feet. Do not cross your legs. Do not self-treat your corns, calluses, or other foot problems. Go to your health care provider or non destructive testing inspector to treat these conditions. documented in this encounterOur [facility] [place]11-07-2024 NoteHNO ID: [id number] Author: XI FINN LPN Service: ? Author Type: LICENSED NURSE Type: Progress Notes Filed: 06/05/2024 06:27 Note Text: AMB ROOMING INTAKE FLOWSHEET DATA Pain Pain Level: 5 Pain Location: Other: See Comment (bilateral feet) Description: Sore Duration Units: Weeks Frequency: Intermittent Intervention/Comfort measure: Relaxation, Reposition Patient presents with: Left Foot - Established Patient, Diabetic Foot Care Right Foot - Established Patient, Diabetic Foot Care [facility] Tele[facility] encounter Note* Telephone Encounter - [place] Che Guo - 04/29/2024 11:00 AM EDT Prescription Refill Information The patient has been identified by name and date of : Yes Caregiver verified no other encounters exist for this prescription request: Yes Caregiver confirmed with patient/requestor that no other refills are due, in the near future, with this provider at this time: Yes The last office visit in the department: Does the patient have a future office visit with this provider/department: Yes Requested Prescriptions Pending Prescriptions Disp Refills metoprolol tartrate, short acting, (LOPRESSOR) 50 mg tablet 180 tablet 1 Sig: Take 1 tablet by mouth two times a day. ipratropium-albuterol (DUONEB) 0.5 mg-3 mg(2.5 mg base)/3 mL nebu 90 mL 5 Sig: Inhale 3 mL as instructed four times daily. Please send today. He is out of Duoneb medication Che [facility] April 29, 2024 11:02 AM [facility]10-03-[facility] Miscellaneous Notes* Telephone Encounter - [place] Che Guo - 04/29/2024 11:00 AM EDT Prescription Refill Information The patient has been identified by name and date of : Yes Caregiver verified no other encounters exist for this prescription request: Yes Caregiver confirmed with patient/requestor that no other refills are due, in the near future, with this provider at this time: Yes The last office visit in the department: Does the patient have a future office visit with this provider/department: Yes Requested Prescriptions Pending Prescriptions Disp Refills metoprolol tartrate, short acting, (LOPRESSOR) 50 mg tablet 180 tablet 1 Sig: Take 1 tablet by mouth two times a day. ipratropium-albuterol (DUONEB) 0.5 mg-3 mg(2.5 mg base)/3 mL nebu 90 mL 5 Sig: Inhale 3 mL as instructed four times daily. Please send today. [facility] AM documented in this encounterOur [facility] [place]09-13-2024 Telephone encounter Note * Telephone Encounter - Sharon Lubin LPN - 04/09/2024 3:58 PM EDT Faxed. Sharon Lubin LPN [facility]09-13-2024 Miscellaneous Notes* Telephone Encounter - Sharon Lubin LPN - 04/09/2024 3:58 PM EDT Faxed. Sharon Lubin LPN * Telephone Encounter - Linnette Beavers - 04/08/2024 4:25 PM EDT Pt needs a [facility] his Concentrator and his Portable O2 as well. He changed to [employer] so they need new prescriptions. Pt gave fax number of [phone] documented in this encounterOur [facility]09-12-2024 Telephone encounter Note * Telephone Encounter - Linnette Beavers - 04/08/2024 4:25 PM EDT Pt needs a new prescriptions sent to [facility] for his Concentrator and his Portable O2 as well. He changed to [employer] so they need new prescriptions. Pt gave fax number of [phone] [facility] Work Phone: 1(957) 949-789508-26-2024 History of Present illness Narrative* Rajwinder Champagne, RT(R) - 03/22/2024 2:30 PM EDT Radiology Service Progress Note PATIENT NAME: Kam Greenberg DATE OF SERVICE: March 22, 2024 TIME: 3:05 PM PATIENT IDENTITY VERIFICATION COMPLETED USING TWO (2) IDENTIFIERS: Name and Date of confirmedby patient verbally. FALL SCREENING: Has the patient had 2 falls in the last year or 1 fall with injury or currently using an Ambulatory Assistive Device (Walker, Cane, Wheelchair, Crutches, etc.)? No PATIENT GENDER DATA: Male PATIENT RELEVANT IMPLANT DATA REVIEWED: Yes PATIENT PRESENTS WITH AN IMPLANTABLE OR ATTACHED FITNESS TRAINER: No RADIOLOGY DEPARTMENT: General X-ray: Exam(s) Completed: Chest X-Ray PERIPHERAL IV DATA: Not applicable SIGNED BY: RT Shelton(Thomas) March 22, 2024 3:05 PM documented in this encounterOur Lady Of [facility] [place]08-26-2024 NoteHNO ID: [id number] Author: RAJWINDER CHAMPAGNE RT(R) Service: Radiology Author Type: Technologist Type: Progress Notes Filed: 03/22/2024 15:14 Note Text: Radiology Service Progress Note PATIENT NAME: Kam Greenberg DATE OF SERVICE: March 22, 2024 TIME: 3:05 PM PATIENT IDENTITY VERIFICATION COMPLETED USING TWO (2) IDENTIFIERS: Name and Date of confirmed by patient verbally. FALL SCREENING: Has the patient had 2 falls in the last year or 1 fall with injury or currently using an Ambulatory Assistive Device (Walker, Cane, Wheelchair, Crutches, etc.)? No PATIENT GENDER DATA: Male PATIENT RELEVANT IMPLANT DATA REVIEWED: Yes PATIENT PRESENTS WITH AN IMPLANTABLE OR ATTACHED FITNESS TRAINER: No RADIOLOGY DEPARTMENT: General X-ray: Exam(s) Completed: Chest X-Ray PERIPHERAL IV DATA: Not applicable SIGNED BY: RT Shelton(Thomas) March 22, 2024 3:05 [facility]08-26-2024 History of Present illness Narrative* Gabby Cannon, ORTHOTIC TECHNICIAN.WINERY WORKER - 03/22/2024 1:40 PM EDT CC: Patient presents with: F/U 3 Month HPI Kam Greenberg is a 73 year old male who presents today for above. He denies any concerns today. Appears SOB but does not feel it is any worse than usual. Admits to having a cold a few weeks ago,symptoms mostly resolved. He did have severe chills about three days ago but none since then. Does not have a thermometer to check his temp. He has COPD and wears continuous oxygen. Using inhalers asprescribed. Denies worsening of chronic cough or wheezing. He also has a history of CHF. Denies chest pain, palpitations, edema, PND, orthopnea, weight gain. Taking all medications, denies side effects. Check his BP at home but can't recall average readings. Does not check his blood sugars. Review of Systems Constitutional: Negative for diaphoresis, fatigue, fever and unexpected weight change. HENT: Positive for rhinorrhea (chronic). Negative for congestion, ear pain, sinus pressure, sinus pain and sore throat. Neurological: Negative for dizziness, syncope, weakness, light-headedness and headaches. Psychiatric/Behavioral: Negative for confusion. 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 11/06/2005: Degeneration of thoracolumbar intervertebral disc Comment: compression fractures No date: Diabetes mellitus ([facility]) No date: Dysmetabolic syndrome X No date: Esophageal reflux 11/23/2015: Essential tremor 10/16/2005: Generalized osteoarthrosis, unspecified site 1953: Late effects of acute poliomyelitis 03/17/2007: Late effects of CVA (cerebrovascular accident) Comment: Left arm weakness 1999: CO (myocardial infarction) ([facility]) No date: Other and unspecified hyperlipidemia 11/06/2005: Peripheral vascular disease ([facility]) 11/07/2005: Polyneuropathy in diabetes(357.2) 06/06/2015: S/P CABG x 3 06/06/2015: S/P coronary artery stent placement 03/2013: ST elevation CO (STEMI) ([facility]) 04/17/2018: Stage 3a chronic kidney disease ([facility]) 04/03/2016: Stenosis of left carotid artery 06/07/2008: Unspecified chronic bronchitis (HCC) PAST SURGICAL HISTORY 2000: CABG, ARTERIAL, THREE Comment: CABG x3 1964: PAST SURGICAL HISTORY OF Comment: Ankle and Feet surgeries ros Mishra 1958: RPR 1ST INGUN HRNA AGE 6 YRS/> REDUCIBLE Comment: Hernia repair, inguinal, right Sept.2013: TRANSCATH STENT INIT VESSEL,PERCUT Comment: MARKUS to SVG to RCA & MARKUS to SVG to OM ALLERGIES Lisinopril, Morphine, Oysters, and Tylenol [Acetaminophen] MEDICATIONS ipratropium-albuterol (DUONEB) 0.5 mg-3 mg(2.5 mg base)/3 mL nebu^Inhale 3 mL as instructed four times daily.^Disp: 90 mL^Rfl: 5 amLODIPine (NORVASC) 5 mg tablet^Take 1 tablet by mouth once daily.^Disp: 90 tablet^Rfl: 1 blood sugar diagnostic (BLOOD GLUCOSE TEST) test strip^Test blood sugar(s) 2 times daily. Dx: OtherDM Code E11.41 Insulin: No^Disp: 100 Strip^Rfl: 5 fluticasone (FLONASE) 50 mcg/actuation nasal spray^Use 1 [place] in each nostril two times a day.^Disp: 1 Each^Rfl: 3 clopidogrel (PLAVIX) 75 mg tablet^Take 1 tablet by mouth once daily.^Disp: 90 tablet^Rfl: 1 metFORMIN (GLUCOPHAGE) 500 mg tablet^Take 1 tablet by mouth two times a day with meals.^Disp: 180 tablet^Rfl: 1 sertraline (ZOLOFT) 100 mg tablet^Take 1 tablet by mouth once daily.^Disp: 90 tablet^Rfl: 1 predniSONE (DELTASONE) 10 mg tablet^TAKE BY MOUTH 4 TABLETS DAILY FOR 2 DAYS, THEN 3 TABLETS DAILY FOR 2 DAYS, THEN 2 TABLETS DAILY FOR 2 DAYS, THEN 1 TABLET DAILY FOR 2 DAYS.^Disp: 20 tablet^Rfl: 0 albuterol HFA (VENTOLIN HFA) 90 mcg/actuation inhaler^Inhale 2 Puffs as instructed every 4 hours asneeded for wheezing/shortness of breath.^Disp: 18 g^Rfl: 5 atorvastatin (LIPITOR) 40 mg tablet^Take 1 tablet by mouth daily at bedtime.^Disp: 90 tablet^Rfl: 1 primidone (MYSOLINE) 50 mg tablet^Take 1 tablet by mouth two times a day.^Disp: 180 tablet^Rfl: 1 metoprolol tartrate, short acting, (LOPRESSOR) 50 mg tablet^Take 1 tablet by mouth two times a day.^Disp: 180 tablet^Rfl: 1 TRELEGY ELLIPTA 100-62.5-25 mcg inhalation powder^INHALE 1 PUFF INSTRUCTED ONCE DAILY.^Disp: 60 Each^Rfl: 11 Blood-Glucose Meter monitoring kit^Glucose Meter of Choice - Kit - Dx: Other DM Code E11.49^Disp: 1Each^Rfl: 0 saw/vit E/sod miguel/lyc/beta/pyg (PROSTATE HEALTH ORAL)^Take 3 tablets by mouth once daily.^Disp: ^Rfl: multivit with minerals/lutein (MULTI-ISABELLE 50 AND OVER ORAL)^Take 1 tablet by mouth once daily.^Disp: ^Rfl: nitroglycerin sublingual (NITROSTAT) 0.4 mg SL tablet^Dissolve 1 tablet under the tongue every 5 minutes as needed.^Disp: 30 tablet^Rfl: 1 aspirin, enteric coated (ADULT LOW DOSE ASPIRIN) 81 mg EC tablet^Take 1 tablet by mouth once daily.^Disp: ^Rfl: 0 FAMILY HISTORY Problem Relation Age of Onset other (Brain Ca) Mother other (CVA) Father , aneurysm other (CO) Father other (Other) Brother natural causes. None Brother no information. None Brother Cancer Son , testicular ca Social History Tobacco Use Smoking status: Former Current packs/day: 0.00 Average packs/day: 1 pack/day for 55.1 years (55.1 ttl pk-yrs) Types: Cigarettes Start date: 1967 Quit date: 12/11/2022 Years since quittin.2 Smokeless tobacco: Never Tobacco comments: Smokers in the home. Vaping Use Vaping status: Never Used Substance Use Topics Alcohol use: Not Currently Comment: rare NAB Drug use: No BP 122/74 Pulse 94 Temp 36.4 C (97.6 F) Resp 24 Wt 82.5 kg (181 lb 14.1 oz) SpO2 93% BMI 23.83 kg/m Physical Exam Vitals reviewed. Constitutional: Appearance: Normal appearance. HENT: Mouth/Throat: Lips: [place]. Mouth: Mucous membranes are moist. Pharynx: Oropharynx is clear. Eyes: Conjunctiva/sclera: Conjunctivae normal. Cardiovascular: Rate and Rhythm: Normal rate and regular rhythm. Heart sounds: Normal heart sounds. No murmur heard. Pulmonary: Effort: No respiratory distress. Breath sounds: Decreased breath sounds (diffusely) and rhonchi (diffusely) present. No rales. Comments: Conversational dyspnea, moist cough and audible wheezing noted. Patient is SOB at rest. Wearing oxygen at 3 liters nasal canula, pulse ox 93%. Musculoskeletal: Right lower leg: No edema. Left lower leg: No edema. Lymphadenopathy: Cervical: No cervical adenopathy. Skin: General: Skin is warm and dry. Neurological: Mental Status: He is alert. Psychiatric: Cognition and Memory: Cognition normal. Health maintenance reviewed with patient: Shingrix Vaccine(1 of 2) Never done RSV Vaccine(1 - 1-dose 60+ series) Never done BP Controlled (<130/80) due on 01/02/2020 DTaP,Tdap,Td Vaccine(2 - Td or Tdap) due on 11/19/2021 Covid-19 Vaccine(2022- season) due on 09/01/2023 Lung Cancer Screening due on 10/30/2023 HbA1C due on 03/19/2024 Colorectal Cancer Screening due on 05/23/2024 Influenza Vaccine(1) due on 03/28/2024 Diabetic Foot Exam due on 08/04/2024 Urine Albumin:Creatinine Ratio due on 09/19/2024 LDL Cholesterol due on 09/19/2024 Serum Creatinine due on 09/19/2024 Dilated Retinal Exam due on 10/08/2024 Annual PCP Team Chronic Disease Visit due on 12/17/2024 Depression Screening due on 12/17/2024 Spirometry Completed Abdominal Aortic Aneurysm Screening Completed Advance Directive Discussion Completed Pneumococcal Vaccine: 65+ Completed Hepatitis C Screening Addressed Alpha-1 Antitrypsin Deficiency Screening Discontinued DATA REVIEWED: Most recent labs ASSESSMENT/PLAN: 1. Shortness of breath - ICD9: 786.05, ICD10: R06.02 (primary diagnosis) Worsening cough and SOB, recent respiratory infection a few weeks ago per patient. Suspect COPD exacerbation - XR CHEST 2V FRONTAL/LAT to rule out pneumonia - further recommendations and follow-up pending results of x-ray 2. Acute cough - ICD9: 786.2, ICD10: R05.1 As above - XR CHEST 2V FRONTAL/LAT 3. Chronic obstructive pulmonary disease with (acute) exacerbation (HCC) - ICD9: 491.21, ICD10: J44.1 Stable except see above 4. Chronic respiratory failure with hypoxia (HCC) - ICD9: 518.83, 799.02, ICD10: J96.11 As above 5. Chronic diastolic CHF (congestive heart failure) (HCC) - ICD9: 428.32, 428.0, ICD10: I50.32 Check BNP and chest x-ray to rule out acute on chronic CHF - NT PRO BNP 6. Type 2 diabetes mellitus with diabetic peripheral angiopathy without gangrene, without long-termcurrent use of insulin (HCC) - ICD9: 250.70, 443.81, ICD10: E11.51 - Control undetermined, due for labs - Continue current medications - HEMOGLOBIN A1C - COMPLETE BLOOD COUNT 7. Muscle cramps - ICD9: 729.82, ICD10: R25.2 Check labs previously ordered that had - MAGNESIUM - BASIC METABOLIC PANEL 8. SVT (supraventricular tachycardia) (HCC) - ICD9: 427.89, ICD10: I47.10 Stable 9. Stage 3a chronic kidney disease (HCC) - ICD9: 585.3, ICD10: N18.31 - eGFR: 62 Due for labs - Albuminuria: 367 - Counseled on avoiding NSAIDs, adequate hydration - Counseled on low sodium diet 10. Essential hypertension - ICD9: 401.9, ICD10: I10 - Controlled - Continue current medications - Recommend home blood pressure monitoring, to bring results to next visit - Encouraged sodium restriction, DASH or Mediterranean diet Prescription instructions reviewed with patient as applicable. Potential red flag symptoms discussed with the patient. Reviewed appropriate action plan to take if red flag symptoms occur. Patient agreeable to treatment plan. Gabby Cannon APRN.WINERY WORKER documented in this encounterOur [facility] NoteHNO ID: [id number] Author: GABBY CANNON APRN.CNP Service: ? Author Type: Nurse Practitioner Type: Progress Notes Filed: 03/22/2024 14:44 Note Text: CC: Patient presents with: F/U 3 Month HPI Kam Greenberg is a 73 year old male who presents today for above. He denies any concerns today. Appears SOB but does not feel it is any worse than usual. Admits to having a cold a few weeks ago, symptoms mostly resolved. He did have severe chills about three days ago but none since then. Does not have a thermometer to check his temp. He has COPD and wears continuous oxygen. Using inhalers as prescribed. Denies worsening of chronic cough or wheezing. He also has a history of CHF. Denies chest pain, palpitations, edema, PND, orthopnea, weight gain. Taking all medications, denies side effects. Check his BP at home but can't recall average readings. Does not check his blood sugars. Review of Systems Constitutional: Negative for diaphoresis, fatigue, fever and unexpected weight change. HENT: Positive for rhinorrhea (chronic). Negative for congestion, ear pain, sinus pressure, sinus pain and sore throat. Neurological: Negative for dizziness, syncope, weakness, light-headedness and headaches. Psychiatric/Behavioral: Negative for confusion. 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 11/06/2005: Degeneration of thoracolumbar intervertebral disc Comment: compression fractures No date: Diabetes mellitus ([facility]) No date: Dysmetabolic syndrome X No date: Esophageal reflux 11/23/2015: Essential tremor 10/16/2005: Generalized osteoarthrosis, unspecified site 1953: Late effects of acute poliomyelitis 03/17/2007: Late effects of CVA (cerebrovascular accident) Comment: Left arm weakness 1999: CO (myocardial infarction) ([facility]) No date: Other and unspecified hyperlipidemia 11/06/2005: Peripheral vascular disease ([facility]) 11/07/2005: Polyneuropathy in diabetes(357.2) 06/06/2015: S/P CABG x 3 06/06/2015: S/P coronary artery stent placement 03/2013: ST elevation CO (STEMI) ([facility]) 04/17/2018: Stage 3a chronic kidney disease ([facility]) 04/03/2016: Stenosis of left carotid artery 06/07/2008: Unspecified chronic bronchitis ([facility]) PAST SURGICAL HISTORY 2000: CABG, ARTERIAL, THREE Comment: CABG x3 1964: PAST SURGICAL HISTORY OF Comment: Ankle and Feet surgeries ros Mishra 8: RPR 1ST INGUN HRNA AGE 6 YRS/> REDUCIBLE Comment: Hernia repair, inguinal, right Sept.2013: TRANSCATH STENT INIT VESSEL,PERCUT Comment: MARKUS to SVG to RCA AND MARKUS to SVG to OM ALLERGIES Lisinopril, Morphine, Oysters, and Tylenol [Acetaminophen] MEDICATIONS ipratropium-albuterol (DUONEB) 0.5 mg-3 mg(2.5 mg base)/3 mL nebuInhale 3 mL as instructed four times daily.Disp: 90 mLRfl: 5 amLODIPine (NORVASC) 5 mg tabletTake 1 tablet by mouth once daily.Disp: 90 tabletRfl: 1 blood sugar diagnostic (BLOOD GLUCOSE TEST) test stripTest blood sugar(s) 2 times daily. Dx: Other DM Code E11.41 Insulin: NoDisp: 100 StripRfl: 5 fluticasone (FLONASE) 50 mcg/actuation nasal sprayUse 1 [place] in each nostril two times a day.Disp: 1 EachRfl: 3 clopidogrel (PLAVIX) 75 mg tabletTake 1 tablet by mouth once daily.Disp: 90 tabletRfl: 1 metFORMIN (GLUCOPHAGE) 500 mg tabletTake 1 tablet by mouth two times a day with meals.Disp: 180 tabletRfl: 1 sertraline (ZOLOFT) 100 mg tabletTake 1 tablet by mouth once daily.Disp: 90 tabletRfl: 1 predniSONE (DELTASONE) 10 mg tabletTAKE BY MOUTH 4 TABLETS DAILY FOR 2 DAYS, THEN 3 TABLETS DAILY FOR 2 DAYS, THEN 2 TABLETS DAILY FOR 2 DAYS, THEN 1 TABLET DAILY FOR 2 DAYS.Disp: 20 tabletRfl: 0 albuterol HFA (VENTOLIN HFA) 90 mcg/actuation inhalerInhale 2 Puffs as instructed every 4 hours as needed for wheezing/shortness of breath.Disp: 18 gRfl: 5 atorvastatin (LIPITOR) 40 mg tabletTake 1 tablet by mouth daily at bedtime.Disp: 90 tabletRfl: 1 primidone (MYSOLINE) 50 mg tabletTake 1 tablet by mouth two times a day.Disp: 180 tabletRfl: 1 metoprolol tartrate, short acting, (LOPRESSOR) 50 mg tabletTake 1 tablet by mouth two times a day.Disp: 180 tabletRfl: 1 TRELEGY ELLIPTA 100-62.5-25 mcg inhalation powderINHALE 1 PUFF INSTRUCTED ONCE DAILY.Disp: 60 EachRfl: 11 Blood-Glucose Meter monitoring kitGlucose Meter of Choice - Kit - Dx: Other DM Code E11.49Disp: 1 EachRfl: 0 saw/vit E/sod miguel/lyc/beta/pyg (PROSTATE HEALTH ORAL)Take 3 tablets by mouth once daily.Disp: Rfl: multivit with minerals/lutein (MULTI-ISABELLE 50 AND OVER ORAL)Take 1 tablet by mouth once daily.Disp: Rfl: nitroglycerin sublingual (NITROSTAT) 0.4 mg SL tabletDissolve 1 tabl (more content not included)...[facility]08-02-2024 NoteHNO ID: [id number] Author: LOU MILLER, ? Service: ? Author Type: Physician Type: Progress Notes Filed: 02/27/2024 13:21 Note Text: Last saw pcp: 01/19/24 Subjective: Patient presents to clinic c/o painful toenails. They state that the nails are especially painful with shoe gear and pressure. Patient states that nails 1-5 b/l are painful. Patient admits to being diabetic. No other pedal complaints at this time. Patient states no change in medications or medical history since last visit. Objective: Patient presents to clinic ambulating in sneakers Vasc: DP and PT pulses are nonpalpable bilateral. CFT is less than 5 seconds bilateral. Skin temperature is warm to cool proximal to distal bilateral. There is mild edema or varicosities noted. Neuro: Protective sensation is intact to the foot and toes when tested with the 5.07 SWM bilateral. Vibratory sensation is decreased at the hallux IPJ bilateral. The hallux is downgoing bilateral. Derm: Nails 1-5 b/l are painful, discolored-yellow, thick, crumbly, dystrophic and with subungal debris. Skin is of normal turgor, texture and hair growth is absent bilateral. There are no hyperkeratosis, ulcerations, scars, verruca or other lesions noted. Ortho: Muscle strength is 5/5 for all pedal groups tested. Ankle joint DF is decreased with the knee extended with no pain or crepitus noted. 1st MPJ ROM is decreased bilateral. Assessment: (B35.1) Onychomycosis (primary encounter diagnosis) (M79.675) Pain in toe of left foot (M79.674) Pain in toe of right foot (E11.42) Diabetic polyneuropathy associated with type 2 diabetes mellitus (HCC) Plan: Patient was seen and evaluated. Nails 1-5 bilateral were debrided in length and thickness. Patient was instructed on the continued importance of diabetic foot care along with proper diet and keeping their blood sugar under control to prevent complications. Stressed the importance of avoiding barefoot walking, wearing good shoes and inspection of feet Smoking cessation encouraged. Patient is to RTC in 3-4 months. Olu Miller [facility]08-02-2024 History of Present illness Narrative* Olu Miller - 02/27/2024 11:00 AM EDT Last saw pcp: 01/19/24 Subjective: Patient presents to clinic c/o painful toenails. They state that the nails are especially painful with shoe gear and pressure. Patient states that nails 1-5 b/l are painful. Patient admits to being diabetic. No other pedal complaints at this time. Patient states no change in medications or medical history since last visit. Objective: Patient presents to clinic ambulating in sneakers Vasc: DP and PT pulses are nonpalpable bilateral. CFT is less than 5 seconds bilateral. Skin temperature is warm to cool proximal to distal bilateral. There is mild edema or varicosities noted. Neuro: Protective sensation is intact to the foot and toes when tested with the 5.07 SWM bilateral.Vibratory sensation is decreased at the hallux IPJ bilateral. The hallux is downgoing bilateral. Derm: Nails 1-5 b/l are painful, discolored-yellow, thick, crumbly, dystrophic and with subungal debris. Skin is of normal turgor, texture and hair growth is absent bilateral. There are no hyperkeratosis, ulcerations, scars, verruca or other lesions noted. Ortho: Muscle strength is 5/5 for all pedal groups tested. Ankle joint DF is decreased with the knee extended with no pain or crepitus noted. 1st MPJ ROM is decreased bilateral. Assessment: (B35.1) Onychomycosis (primary encounter diagnosis) (M79.675) Pain in toe of left foot (M79.674) Pain in toe of right foot (E11.42) Diabetic polyneuropathy associated with type 2 diabetes mellitus (HCC) Plan: Patient was seen and evaluated. Nails 1-5 bilateral were debrided in length and thickness. Patient was instructed on the continued importance of diabetic foot care along with proper diet and keeping their blood sugar under control to prevent complications. Stressed the importance of avoiding barefoot walking, wearing good shoes and inspection of feet Smoking cessation encouraged. Patient is to RTC in 3-4 months. Olu Miller DPM * Xi Finn LPN - 02/27/2024 10:36 AM EDT AMB ROOMING INTAKE FLOWSHEET DATA Patient presents with: Left Foot - Established Patient, Diabetic Foot Care Right Foot - Established Patient, Diabetic Foot Care Xi Finn LPN documented in this encounterOur [facility] [place]-02-[facility]24 Instructions* Patient Instructions* Olu Miller - 02/27/2024 11:00 AM EDT Diabetes Foot Care Instructions When you have diabetes, proper foot care is very important. Poor foot care may lead to amputation of a foot or leg. As a person with diabetes, you are more vulnerable to foot problems, because diabetes can damage your nerves and reduce blood flow to your feet. Here are some diabetes foot care tips to follow: Wash and Dry Your Feet Daily Use mild soaps Use warm water Pat your skin dry; do not rub. Thoroughly dry your feet. After washing, use lotion on your feet to prevent cracking. Do not put lotion between your toes. Examine Your Feet Each Day Check the tops and bottoms of your feet. Have someone else look at your feet if you cannot see them. Check for dry, cracked skin. Look for blisters, cuts, scratches, or other sores. Check for redness, increased warmth, or tenderness when touching any area of your feet. Check for ingrown toenails, corns, and calluses. If you get a blister or sore from your shoes, do not pop it. Apply a bandage and wear a differentpair of shoes. Take Care of Your Toenails Cut toenails after bathing, when they are soft. Cut toenails straight across and smooth with a nail file. Avoid cutting into the corners of toes. Do not cut cuticles. If you have neuropathy (or decreased sensation in your feet) a non destructive testing inspector should always cut your toenails. Be Careful When Exercising Walk and exercise in comfortable shoes. Do not exercise when you have open sores on your feet. Protect Your Feet With Shoes and Socks Never go barefoot. Always protect your feet by wearing shoes or hard-soled slippers or footwear. Avoid shoes with high heels and pointed toes. Avoid shoes that expose your toes or heels (such as open-toed shoes or sandals). These types of shoes increase your risk for injury and potential infections. Try on new footwear with the type of socks you usually wear. Do not wear new shoes for more than an hour at a time. Change your socks daily. Look and feel inside your shoes before putting them on to make sure there are no foreign objects orrough areas. Avoid tight socks. Wear natural-fiber socks (cotton, wool, or a cotton-wool blend). Wear special shoes if your health care provider recommends them. Wear shoes/boots that will protect your feet from various weather conditions (cold, moisture, etc.). Make sure your shoes fit properly. If you have neuropathy (nerve damage), you may not notice that your shoes are too tight. Perform the footwear test described below. Footwear Test Use this simple test to see if your shoes fit correctly: Stand on a piece of paper. (Make sure you are standing and not sitting, because your foot changes shape when you stand.) Trace the outline of your foot. Trace the outline of your shoe. Compare the tracings: Is the shoe too narrow? Is your foot crammed into the shoe? The shoe should be at least 1/2 inch longer than your longest toe and as wide as your foot. Proper Shoe Choices The following types of shoes are best for people with diabetes Closed toes and heels Leather uppers without a seam inside At least 1/2 inch extra space at the end of your longest toe Inside of shoe should be soft with no rough areas Outer sole should be made of stiff material Shoes should be at least as wide as your feet Tips for Foot Care in Diabetes Don't wait to treat a minor foot problem if you have diabetes. Follow your health care provider's guidelines and first aid guidelines. Report foot injuries and infections to your health care provider immediately. Check water temperature with your elbow, not your foot. Do not use a heating pad on your feet. Do not cross your legs. Do not self-treat your corns, calluses, or other foot problems. Go to your health care provider or non destructive testing inspector to treat these conditions. documented in this encounterOur [facility] Of [facility] [place]08-02-2024 NoteHNO ID: [id number] Author: XI FINN LPN Service: ? Author Type: LICENSED NURSE Type: Progress Notes Filed: 02/27/2024 13:21 Note Text: AMB ROOMING INTAKE FLOWSHEET DATA Patient presents with: Left Foot - Established Patient, Diabetic Foot Care Right Foot - Established Patient, Diabetic Foot Care [facility] NoteHNO ID: [id number] Author: CARMEN VIRGEN APRN.JULIO Service: ? Author Type: Nurse Practitioner Type: Progress Notes Filed: 01/19/2024 17:25 Note Text: This note was created using [employer]. Subjective Kam Greenberg is a 73 year old male. 73 year old male with PMH DM, CAD, CHF, HTN, hyperlipidemia, CABG, CAD, COPD with home oxygen, OA, presents for infection in my nose Acute onset 2 to 3 weeks ago Left nares Endorses he squeezed it and green thick like toothpaste came out States that it has returned again. Denies fever or chills Denies known trauma or injury Denies rash Denies streaking. Wears oxygen 17/02 via nasal cannula The history is provided by the patient. No ware server was used. Abscess This is a new problem. The current episode started 1 to 4 weeks ago. The problem occurs constantly. The problem has been waxing and waning. Pertinent negatives include no abdominal pain, anorexia, arthralgias, change in bowel habit, chest pain, chills, congestion, coughing, diaphoresis, fatigue, fever, headaches, joint swelling, myalgias, nausea, neck pain, numbness, rash, sore throat, swollen glands, urinary symptoms, vertigo, visual change, vomiting or weakness. Nothing aggravates the symptoms. Treatments tried: squeezing the wound. The treatment provided no relief. 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 11/06/2005 Degeneration of thoracolumbar intervertebral disc 11/06/2005 compression fractures Diabetes mellitus ([facility]) Dysmetabolic syndrome X Esophageal reflux Essential tremor 11/23/2015 Generalized osteoarthrosis, unspecified site 10/16/2005 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 CVA (cerebrovascular accident) 03/17/2007 Left arm weakness CO (myocardial infarction) ([facility]) 1999 Other and unspecified hyperlipidemia Peripheral vascular disease ([facility]) 11/06/2005 Polyneuropathy in diabetes(357.2) 11/07/2005 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 Polio RPR 1ST INGUN HRNA AGE 6 YRS/> REDUCIBLE 1957 Hernia repair, inguinal, right TRANSCATH STENT INIT VESSEL,PERCUT MARKUS to SVG to RCA AND MARKUS to SVG to OM ALLERGIES Lisinopril, Morphine, Oysters, and Tylenol [Acetaminophen] MEDICATIONS ipratropium-albuterol (DUONEB) 0.5 mg-3 mg(2.5 mg base)/3 mL nebuInhale 3 mL as instructed four times daily.Disp: 90 mLRfl: 5 amLODIPine (NORVASC) 5 mg tabletTake 1 tablet by mouth once daily.Disp: 90 tabletRfl: 1 blood sugar diagnostic (BLOOD GLUCOSE TEST) test stripTest blood sugar(s) 2 times daily. Dx: Other DM Code E11.41 Insulin: NoDisp: 100 StripRfl: 5 fluticasone (FLONASE) 50 mcg/actuation nasal sprayUse 1 [place] in each nostril two times a day.Disp: 1 EachRfl: 3 clopidogrel (PLAVIX) 75 mg tabletTake 1 tablet by mouth once daily.Disp: 90 tabletRfl: 1 metFORMIN (GLUCOPHAGE) 500 mg tabletTake 1 tablet by mouth two times a day with meals.Disp: 180 tabletRfl: 1 sertraline (ZOLOFT) 100 mg tabletTake 1 tablet by mouth once daily.Disp: 90 tabletRfl: 1 predniSONE (DELTASONE) 10 mg tabletTAKE BY MOUTH 4 TABLETS DAILY FOR 2 DAYS, THEN 3 TABLETS DAILY FOR 2 DAYS, THEN 2 TABLETS DAILY FOR 2 DAYS, THEN 1 TABLET DAILY FOR 2 DAYS.Disp: 20 tabletRfl: 0 albuterol HFA (VENTOLIN HFA) 90 mcg/actuation inhalerInhale 2 Puffs as instructed every 4 hours as needed for wheezing/shortness of breath.Disp: 18 gRfl: 5 atorvastatin (LIPITOR) 40 mg tabletTake 1 tablet by mouth daily at bedtime.Disp: 90 tabletRfl: 1 primidone (MYSOLINE) 50 mg tabletTake 1 tablet by mouth two times a day.Disp: 180 tabletRfl: 1 metoprolol tartrate, short acting, (LOPRESSOR) 50 mg tabletTake 1 tablet by mouth two times a day.Disp: 180 tabletRfl: 1 TRELEGY ELLIPTA 100-62.5-25 mcg inhalation powderINHALE 1 PUFF INSTRUCTED ONCE DAILY.Disp: 60 EachRfl: 11 Blood-Glucose Meter monitoring kitGlucose Meter of Choice - Kit - Dx: Other DM Code E11.49Disp: 1 EachRfl: 0 saw/vit E/sod miguel/lyc/beta/pyg (PROSTATE HEALTH ORAL)Take 3 tablets by mouth once daily.Disp: Rfl: multivit with minerals/lutein (MULTI-ISABELLE 50 AND OVER ORAL)Take 1 tablet by mouth once daily.Disp: Rfl: nitroglycerin sublingual (NITROSTAT) 0.4 mg SL tabletDissolve 1 tablet under the tongue every 5 minute (more content not included)...[facility]06-24-2024 History of Present illness Narrative* Carmen Virgen APRN.WINERY WORKER - 01/19/2024 4:38 PM EDT This note was created using [employer]. Subjective Kam Greenberg is a 73 year old male. 73 year old male with PMH DM, CAD, CHF, HTN, hyperlipidemia, CABG, CAD, COPD with home oxygen, OA, presents for infection in my nose Acute onset 2 to 3 weeks ago Left nares Endorses he squeezed it and green thick like toothpaste came out States that it has returned again. Denies fever or chills Denies known trauma or injury Denies rash Denies streaking. Wears oxygen 17/02 via nasal cannula The history is provided by the patient. No ware server was used. Abscess This is a new problem. The current episode started 1 to 4 weeks ago. The problem occurs constantly.The problem has been waxing and waning. Pertinent negatives include no abdominal pain, anorexia, arthralgias, change in bowel habit, chest pain, chills, congestion, coughing, diaphoresis, fatigue, fever, headaches, joint swelling, myalgias, nausea, neck pain, numbness, rash, sore throat, swollen glands, urinary symptoms, vertigo, visual change, vomiting or weakness. Nothing aggravates the symptoms. Treatments tried: squeezing the wound. The treatment provided no relief. 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 11/06/2005 Degeneration of thoracolumbar intervertebral disc 11/06/2005 compression fractures Diabetes mellitus (HCC) Dysmetabolic syndrome X Esophageal reflux Essential tremor 11/23/2015 Generalized osteoarthrosis, unspecified site 10/16/2005 Late effects of acute poliomyelitis 195 Late effects of CVA (cerebrovascular accident) 03/17/2007 Left arm weakness CO (myocardial infarction) ([facility]) 1999 Other and unspecified hyperlipidemia Peripheral vascular disease ([facility]) 11/06/2005 Polyneuropathy in diabetes(357.2) 11/07/2005 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 Polio RPR 1ST INGUN HRNA AGE 6 YRS/> REDUCIBLE 1957 Hernia repair, inguinal, right TRANSCATH STENT INIT VESSEL,PERCUT MARKUS to SVG to RCA & MARKUS to SVG to OM ALLERGIES Lisinopril, Morphine, Oysters, and Tylenol [Acetaminophen] MEDICATIONS ipratropium-albuterol (DUONEB) 0.5 mg-3 mg(2.5 mg base)/3 mL nebu^Inhale 3 mL as instructed four times daily.^Disp: 90 mL^Rfl: 5 amLODIPine (NORVASC) 5 mg tablet^Take 1 tablet by mouth once daily.^Disp: 90 tablet^Rfl: 1 blood sugar diagnostic (BLOOD GLUCOSE TEST) test strip^Test blood sugar(s) 2 times daily. Dx: OtherDM Code E11.41 Insulin: No^Disp: 100 Strip^Rfl: 5 fluticasone (FLONASE) 50 mcg/actuation nasal spray^Use 1 [place] in each nostril two times a day.^Disp: 1 Each^Rfl: 3 clopidogrel (PLAVIX) 75 mg tablet^Take 1 tablet by mouth once daily.^Disp: 90 tablet^Rfl: 1 metFORMIN (GLUCOPHAGE) 500 mg tablet^Take 1 tablet by mouth two times a day with meals.^Disp: 180 tablet^Rfl: 1 sertraline (ZOLOFT) 100 mg tablet^Take 1 tablet by mouth once daily.^Disp: 90 tablet^Rfl: 1 predniSONE (DELTASONE) 10 mg tablet^TAKE BY MOUTH 4 TABLETS DAILY FOR 2 DAYS, THEN 3 TABLETS DAILY FOR 2 DAYS, THEN 2 TABLETS DAILY FOR 2 DAYS, THEN 1 TABLET DAILY FOR 2 DAYS.^Disp: 20 tablet^Rfl: 0 albuterol HFA (VENTOLIN HFA) 90 mcg/actuation inhaler^Inhale 2 Puffs as instructed every 4 hours asneeded for wheezing/shortness of breath.^Disp: 18 g^Rfl: 5 atorvastatin (LIPITOR) 40 mg tablet^Take 1 tablet by mouth daily at bedtime.^Disp: 90 tablet^Rfl: 1 primidone (MYSOLINE) 50 mg tablet^Take 1 tablet by mouth two times a day.^Disp: 180 tablet^Rfl: 1 metoprolol tartrate, short acting, (LOPRESSOR) 50 mg tablet^Take 1 tablet by mouth two times a day.^Disp: 180 tablet^Rfl: 1 TRELEGY ELLIPTA 100-62.5-25 mcg inhalation powder^INHALE 1 PUFF INSTRUCTED ONCE DAILY.^Disp: 60 Each^Rfl: 11 Blood-Glucose Meter monitoring kit^Glucose Meter of Choice - Kit - Dx: Other DM Code E11.49^Disp: 1Each^Rfl: 0 saw/vit E/sod miguel/lyc/beta/pyg (PROSTATE HEALTH ORAL)^Take 3 tablets by mouth once daily.^Disp: ^Rfl: multivit with minerals/lutein (MULTI-ISABELLE 50 AND OVER ORAL)^Take 1 tablet by mouth once daily.^Disp: ^Rfl: nitroglycerin sublingual (NITROSTAT) 0.4 mg SL tablet^Dissolve 1 tablet under the tongue every 5 minutes as needed.^Disp: 30 tablet^Rfl: 1 aspirin, enteric coated (ADULT LOW DOSE ASPIRIN) 81 mg EC tablet^Take 1 tablet by mouth once daily.^Disp: ^Rfl: 0 doxycycline monohydrate 100 mg tablet^Take 1 tablet by mouth two times a day for 7 days.^Disp: 14 tablet^Rfl: 0 mupirocin (BACTROBAN) 2 % cream^Apply 1 application to affected area three times a day for 10 days.Location: left nares^Disp: 30 g^Rfl: 1 FAMILY HISTORY Problem Relation Age of Onset other (Brain Ca) Mother other (CVA) Father , aneurysm other (CO) Father other (Other) Brother natural causes. None Brother no information. None Brother Cancer Son , testicular ca Social History Tobacco Use Smoking status: Former Packs/day: 1.00 Years: 52.00 Additional pack years: 0.00 Total pack years: 52.00 Types: Cigarettes Start date: 1967 Quit date: 12/11/2022 Years since quittin.1 Smokeless tobacco: Never Tobacco comments: Smokers in the home. Vaping Use Vaping Use: Never used Substance Use Topics Alcohol use: Not Currently Comment: rare NAB Drug use: No Review of Systems Constitutional: Negative for chills, diaphoresis, fatigue and fever. HENT: Negative for congestion and sore throat. Eyes: Negative for pain, discharge, redness and itching. Respiratory: Negative for cough. Cardiovascular: Negative for chest pain. Gastrointestinal: Negative for abdominal pain, anorexia, change in bowel habit, nausea and vomiting. Musculoskeletal: Negative for arthralgias, joint swelling, myalgias and neck pain. Skin: Negative for rash. Allergic/Immunologic: Negative for environmental allergies, food allergies and immunocompromised state. Neurological: Negative for vertigo, weakness, numbness and headaches. Hematological: Negative for adenopathy. Does not bruise/bleed easily. Psychiatric/Behavioral: Negative for agitation and behavioral problems. Objective BP 142/60 Pulse 62 Temp 36.9 C (98.5 F) Resp 16 Wt 80.4 kg (177 lb 4 oz) SpO2 96% BMI 23.23 kg/m Physical Exam Vitals and nursing note reviewed. Constitutional: General: He is not in acute distress. Appearance: Normal appearance. He is not ill-appearing, toxic-appearing or diaphoretic. Comments: Elderly appearing. HENT: Head: Normocephalic and atraumatic. Right Ear: External ear normal. Left Ear: External ear normal. Ears: Comments: Left nares with < 1 mm tender, slightly raised non purulent abscess. No drainage NO active bleeding Nose: Nose normal. No congestion or rhinorrhea. Mouth/Throat: Mouth: Mucous membranes are moist. Pharynx: Oropharynx is clear. No oropharyngeal exudate or posterior oropharyngeal erythema. Eyes: General: Right eye: No discharge. Left eye: No discharge. Extraocular Movements: Extraocular movements intact. Conjunctiva/sclera: Conjunctivae normal. Pupils: Pupils are equal, round, and reactive to light. Cardiovascular: Rate and Rhythm: Normal rate and regular rhythm. Pulses: Normal pulses. Heart sounds: Normal heart sounds. No murmur heard. No friction rub. No gallop. Pulmonary: Effort: Pulmonary effort is normal. No respiratory distress. Breath sounds: Normal breath sounds. No stridor. No wheezing, rhonchi or rales. Comments: Home oxygen Chest: Chest wall: No tenderness. Abdominal: General: Abdomen is flat. There is no distension. Palpations: Abdomen is soft. There is no mass. Tenderness: There is no abdominal tenderness. There is no guarding or rebound. Hernia: No hernia is present. Musculoskeletal: General: No swelling, tenderness, deformity or signs of injury. Normal range of motion. Cervical back: Normal range of motion and neck supple. No rigidity or tenderness. Right lower leg: No edema. Left lower leg: No edema. Lymphadenopathy: Cervical: No cervical adenopathy. Skin: General: Skin is warm and dry. Capillary Refill: Capillary refill takes less than 2 seconds. Coloration: Skin is not jaundiced or pale. Findings: No bruising, lesion or rash. Neurological: General: No focal deficit present. Mental Status: He is alert and oriented to person, place, and time. Cranial Nerves: No cranial nerve deficit. Sensory: No sensory deficit. Motor: No weakness. Coordination: Coordination normal. Gait: Gait normal. Deep Tendon Reflexes: Reflexes normal. Psychiatric: Mood and Affect: Mood normal. Behavior: Behavior normal. Thought Content: Thought content normal. Assessment and Plan ASSESSMENT/PLAN: 1. Nasal abscess - ICD9: 478.19, ICD10: J34.0 - x 2 to 3 weeks Endorses that he has squeezed it and thick green drainage States returned. Left inner nares with 1 mm abscess like Folliculitis ?? RX Doxy RX mupirocin cream F/U with PCP for continued sx Carmen Virgen APRN.WINERY WORKER [facility] Tele[facility] encounter Note * Telephone Encounter - Sary Perez - 12/30/2023 3:36 PM EDT Patient has been identified by name and date of : Yes, Patient phones for refill(s): Requested Prescriptions Pending Prescriptions Disp Refills ipratropium-albuterol (DUONEB) 0.5 mg-3 mg(2.5 mg base)/3 mL nebu 90 mL 5 Sig: Inhale 3 mL as instructed four times daily. Date of last office visit in primary care: 12/18/2023 Date of next office visit in primary care: 03/18/2024 Please advise. Thank you. Sary Perez. [facility] [place] Miscellaneous Notes* Telephone Encounter - Sary Perez - 12/30/2023 3:36 PM EDT Patient has been identified by name and date of : Yes, Patient phones for refill(s): Requested Prescriptions Pending Prescriptions Disp Refills ipratropium-albuterol (DUONEB) 0.5 mg-3 mg(2.5 mg base)/3 mL nebu 90 mL 5 Sig: Inhale 3 mL as instructed four times daily. Date of last office visit in primary care: 12/18/2023 Date of next office visit in primary care: 03/18/2024 Please advise. Thank you. Sary Perez. documented in this encounterOur [facility] [place] NoteHNO ID: [id number] Author: ROYCE CARROLL MD Service: ? Author Type: Physician Type: Progress Notes Filed: 12/18/2023 15:44 Note Text: This note was created using [employer]. Subjective Kam Greenberg is a 73 year old male. He had no new concerns. He needed refills. He had no falls since his last visit. He was undergoing speech therapy per Dr. Rothman, pulmonary. He seemed more dyspneic today, but denied exacerbation of symptoms or acute illness. His only complain was increasing cramps of both hands for a few weeks. Review of Systems Constitutional: Negative for chills, diaphoresis and fever. HENT: Negative for congestion and sore throat. Respiratory: No increase in sputum, cough, wheezing. Cardiovascular: Negative for chest pain, palpitations and leg swelling. Gastrointestinal: Negative. 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, Without Long-Term Current Use of Insulin ([facility]) At Risk for Falls Abnormality of Gait Chronic Obstructive Pulmonary Disease With (Acute) Exacerbation ([facility]) Chronic Respiratory Failure With Hypoxia ([facility]) Chronic Diastolic Chf (Congestive Heart Failure) ([facility]) Social History Tobacco Use Smoking status: Former Packs/day: 1.00 Years: 52.00 Additional pack years: 0.00 Total pack years: 52.00 Types: Cigarettes Start date: 1967 Quit date: 12/11/2022 Years since quittin.0 Smokeless tobacco: Never Tobacco comments: Smokers in the home. Vaping Use Vaping Use: Never used Substance Use Topics Alcohol use: Not Currently Comment: rare NAB Drug use: No Current Outpatient Medications Medication Sig albuterol HFA (VENTOLIN HFA) 90 mcg/actuation inhaler Inhale 2 Puffs as instructed every 4 hours as needed for wheezing/shortness of breath. atorvastatin (LIPITOR) 40 mg tablet Take 1 tablet by mouth daily at bedtime. primidone (MYSOLINE) 50 mg tablet Take 1 tablet by mouth two times a day. metoprolol tartrate, short acting, (LOPRESSOR) 50 mg tablet Take 1 tablet by mouth two times a day. TRELEGY ELLIPTA 100-62.5-25 mcg inhalation powder INHALE 1 PUFF INSTRUCTED ONCE DAILY. ipratropium-albuterol (DUONEB) 0.5 mg-3 mg(2.5 mg base)/3 mL nebu Inhale 3 mL as instructed four times daily. metFORMIN (GLUCOPHAGE) 500 mg tablet Take 1 tablet by mouth two times a day with meals. amLODIPine (NORVASC) 5 mg tablet Take 1 tablet by mouth once daily. Blood-Glucose Meter monitoring kit Glucose Meter of Choice - Kit - Dx: Other DM Code E11.49 fluticasone (FLONASE) 50 mcg/actuation nasal spray Use 1 [place] in each nostril two times a day. sertraline (ZOLOFT) 100 mg tablet Take 1 tablet by mouth once daily. clopidogrel (PLAVIX) 75 mg tablet Take 1 tablet by mouth once daily. blood sugar diagnostic (BLOOD GLUCOSE TEST) test strip Test blood sugar(s) 2 times daily. Dx: Other DM Code E11.41 Insulin: No saw/vit E/sod miguel/lyc/beta/pyg (PROSTATE HEALTH ORAL) Take 3 tablets by mouth once daily. multivit with minerals/lutein (MULTI-ISABELLE 50 AND OVER ORAL) Take 1 tablet by mouth once daily. nitroglycerin sublingual (NITROSTAT) 0.4 mg SL tablet Dissolve 1 tablet under the tongue every 5 minutes as needed. aspirin, enteric coated (ADULT LOW DOSE ASPIRIN) 81 mg EC tablet Take 1 tablet by mouth once daily. predniSONE (DELTASONE) 10 mg tablet TAKE BY MOUTH 4 TABLETS DAILY FOR 2 DAYS, THEN 3 TABLETS DAILY FOR 2 DAYS, THEN 2 TABLETS DAILY FOR 2 DAYS, THEN 1 TABLET DAILY FOR 2 DAYS. (Patient not taking: Reported on 11/04/2023) No current facility-administered medications for this visit. Facility-Administered Medications Ordered in Other Visits Medication Dose Route Frequency propofol injection (DIPRIVAN) INTRAVENOUS PRN midazolam (PF) injection (VERSED) INTRAVENOUS PRN Objective BP 110/68 (BP Site: Left Arm, BP Position: Sitting, BP Cuff Size: Large Adult) Pulse 100 Temp 36.2 ?C (97.2 ?F) (Temporal) Resp 20 Wt 80.3 kg (177 lb) SpO2 97% BMI 23.19 kg/m? Physical Exam Constitutional: General: He is not in acute distress. Appearance: He is ill-appearing. He is not toxic-appearing or diaphoretic. HENT: Head: Normocephalic. Nose: No congestion or rhinorrhea. Mouth/Throat: Mouth: Mucous membranes are moist. Pharynx: Oropharynx is clear. Eyes: Conjunctiva/sclera: Conjunctivae normal. Cardiovascular: Rate and Rhythm: Regular rhythm. Tachycardia present. Heart sounds: No murmur (more content not included)...[facility] 12-18-2023 History of Present illness Narrative* Royce Carroll MD - 12/18/2023 3:16 PM EDT This note was created using [employer]. Subjective Kam Greenberg is a 73 year old male. He had no new concerns. He needed refills. He had no falls since his last visit. He was undergoing speech therapy per Dr. Rothman, pulmonary. He seemed more dyspneic today, but denied exacerbation of symptoms or acute illness. His only complain was increasing cramps of both hands for a few weeks. Review of Systems Constitutional: Negative for chills, diaphoresis and fever. HENT: Negative for congestion and sore throat. Respiratory: No increase in sputum, cough, wheezing. Cardiovascular: Negative for chest pain, palpitations and leg swelling. Gastrointestinal: Negative. 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, Without Long-Term Current Use of Insulin ([facility]) At Risk for Falls Abnormality of Gait Chronic Obstructive Pulmonary Disease With (Acute) Exacerbation ([facility]) Chronic Respiratory Failure With Hypoxia ([facility]) Chronic Diastolic Chf (Congestive Heart Failure) ([facility]) Social History Tobacco Use Smoking status: Former Packs/day: 1.00 Years: 52.00 Additional pack years: 0.00 Total pack years: 52.00 Types: Cigarettes Start date: 1967 Quit date: 12/11/2022 Years since quittin.0 Smokeless tobacco: Never Tobacco comments: Smokers in the home. Vaping Use Vaping Use: Never used Substance Use Topics Alcohol use: Not Currently Comment: rare NAB Drug use: No Current Outpatient Medications Medication Sig albuterol HFA (VENTOLIN HFA) 90 mcg/actuation inhaler Inhale 2 Puffs as instructed every 4 hours asneeded for wheezing/shortness of breath. atorvastatin (LIPITOR) 40 mg tablet Take 1 tablet by mouth daily at bedtime. primidone (MYSOLINE) 50 mg tablet Take 1 tablet by mouth two times a day. metoprolol tartrate, short acting, (LOPRESSOR) 50 mg tablet Take 1 tablet by mouth two times a day. TRELEGY ELLIPTA 100-62.5-25 mcg inhalation powder INHALE 1 PUFF INSTRUCTED ONCE DAILY. ipratropium-albuterol (DUONEB) 0.5 mg-3 mg(2.5 mg base)/3 mL nebu Inhale 3 mL as instructed four times daily. metFORMIN (GLUCOPHAGE) 500 mg tablet Take 1 tablet by mouth two times a day with meals. amLODIPine (NORVASC) 5 mg tablet Take 1 tablet by mouth once daily. Blood-Glucose Meter monitoring kit Glucose Meter of Choice - Kit - Dx: Other DM Code E11.49 fluticasone (FLONASE) 50 mcg/actuation nasal spray Use 1 [place] in each nostril two times a day. sertraline (ZOLOFT) 100 mg tablet Take 1 tablet by mouth once daily. clopidogrel (PLAVIX) 75 mg tablet Take 1 tablet by mouth once daily. blood sugar diagnostic (BLOOD GLUCOSE TEST) test strip Test blood sugar(s) 2 times daily. Dx: OtherDM Code E11.41 Insulin: No saw/vit E/sod miguel/lyc/beta/pyg (PROSTATE HEALTH ORAL) Take 3 tablets by mouth once daily. multivit with minerals/lutein (MULTI-ISABELLE 50 AND OVER ORAL) Take 1 tablet by mouth once daily. nitroglycerin sublingual (NITROSTAT) 0.4 mg SL tablet Dissolve 1 tablet under the tongue every 5 minutes as needed. aspirin, enteric coated (ADULT LOW DOSE ASPIRIN) 81 mg EC tablet Take 1 tablet by mouth once daily. predniSONE (DELTASONE) 10 mg tablet TAKE BY MOUTH 4 TABLETS DAILY FOR 2 DAYS, THEN 3 TABLETS DAILY FOR 2 DAYS, THEN 2 TABLETS DAILY FOR 2 DAYS, THEN 1 TABLET DAILY FOR 2 DAYS. (Patient not taking: Reported on 11/04/2023) No current facility-administered medications for this visit. Facility-Administered Medications Ordered in Other Visits Medication Dose Route Frequency propofol injection (DIPRIVAN) INTRAVENOUS PRN midazolam (PF) injection (VERSED) INTRAVENOUS PRN Objective BP 110/68 (BP Site: Left Arm, BP Position: Sitting, BP Cuff Size: Large Adult) Pulse 100 Temp 36.2 C (97.2 F) (Temporal) Resp 20 Wt 80.3 kg (177 lb) SpO2 97% BMI 23.19 kg/m Physical Exam Constitutional: General: He is not in acute distress. Appearance: He is ill-appearing. He is not toxic-appearing or diaphoretic. HENT: Head: Normocephalic. Nose: No congestion or rhinorrhea. Mouth/Throat: Mouth: Mucous membranes are moist. Pharynx: Oropharynx is clear. Eyes: Conjunctiva/sclera: Conjunctivae normal. Cardiovascular: Rate and Rhythm: Regular rhythm. Tachycardia present. Heart sounds: No murmur heard. Pulmonary: Effort: Respiratory distress present. Breath sounds: No stridor. Wheezing, rhonchi and rales present. Comments: On portable O2 via [place] Abdominal: Palpations: Abdomen is soft. Tenderness: There is no abdominal tenderness. Musculoskeletal: Right lower leg: No edema. Left lower leg: No edema. Neurological: General: No focal deficit present. Mental Status: He is alert. Comments: Using a cane. Depression Screening PHQ-2 Score REGAN-2 Total Score 12/18/2023 0 0 Depression screening tool completed and reviewed. Based on score and interview, patient is at risk for depression. Screening tool discussed with patient, and I recommended continuing current plan of care. Assessment and Plan 1. Abnormality of gait - ICD9: 781.2, ICD10: R26.9 (primary diagnosis) Stable. Fall precautions. 2. Essential hypertension - ICD9: 401.9, ICD10: I10 - Controlled - Continue current medications - AMLODIPINE 5 MG TABLET 3. Type 2 diabetes mellitus with diabetic mononeuropathy, without long-term current use of insulin (HCC) - ICD9: 250.60, 355.9, ICD10: E11.41 - Controlled - Continue current medications - BLOOD SUGAR DIAGNOSTIC STRIPS - METFORMIN 500 MG TABLET 4. Rhinitis, unspecified type - ICD9: 472.0, ICD10: J31.0 - Controlled. - FLUTICASONE PROPIONATE 50 MCG/ACTUATION NASAL SPRAY,SUSPENSION 5. Atherosclerosis of coronary artery of [place] heart without angina pectoris, unspecified vessel or lesion type - ICD9: 414.01, ICD10: I25.10 - Stable. - CLOPIDOGREL 75 MG TABLET 6. Anxiety disorder, unspecified type - ICD9: 300.00, ICD10: F41.9 Controlled. - SERTRALINE 100 MG TABLET - BEHAVIORAL HEALTH SCREENING 7. Chronic obstructive pulmonary disease with (acute) exacerbation (HCC) - ICD9: 491.21, ICD10: J44.1 Prednisone bolus. Discussed medication dosage, usage, goals of therapy, and side effects. - COMPLETE BLOOD COUNT - PREDNISONE 10 MG TABLET 8. Cramp of muscle of both upper extremities - ICD9: 729.82, ICD10: R25.2 Check electrolytes. - BASIC METABOLIC PANEL - MAGNESIUM Royce Carroll MD documented in this encounterOur [facility] [place] History of Present illness Narrative* Clark Rothman MD - 12/02/2023 2:45 PM EDT Images from the original note were not included. . Respiratory [place] Note Patient name: Kam Greenberg PCP: Royce Carroll MD CC: follow-up HPI: Kam Greenberg 73 year old male former 52 pack year smoker, quitting 2022 with PMH significant for severe COPD, GOLD stage 3, hypoxemic respiratory failure, CVA, HLD, PAD, CAD s/p CABG/stent, CKD. Current therapy with Trelegy Ellipta and as needed Duoneb and albuterol. Today, he continues tohave SOB with exertion and denies at rest. Coughing daily throughout the day but is too thick to bring up. Notes wheezing occasionally. Denies recent hospitalizations or urgent care visits for breathing. Reports to continue to be abstinent from smoking but has family who smokes in the home. Continues on home O2 with relief. Reports compliance with Trelegy daily, Duoneb 1-2 times a day and is needing Albuterol inhaler at least once a day. He had an esophogram due to concern for dysphagia after last visit. Recommended outpatient speech therapy which patient is unaware of. DME: [employer] 3 L DATA: Labs: Imaging / Diagnostic Studies: DATE OF EXAM: Oct 29 2022 2:58PM [facility] [id number] - CT LUNG SCREEN WO IVCON / COMPARISON: Chest CT dated 11/01/2021 RESULT: Are nodules present? Yes, 1-5 nodules Nodule 1: This Solid nodule is located in the Right Upper Lobe on slice number 157 with an average diameter of 3.0 mm (3.4 mm x 2.6 mm). This nodule is unchanged since 11/01/2021. Other lung nodule comments: Other findings: There is moderate severity upper lobe predominant centrilobular emphysema which is associated with bronchial wall thickening. Stable mild relatively symmetric biapical opacities, probably postinflammatory. Stable linear density in the anterior left upper lobe, image 79, likely atelectasis or scar. Dependent reticular opacities are most consistent with subsegmental atelectasis. Subpleural reticulation at the lung bases is unchanged, which may be secondary to smoking- related interstitiallung disease. No definite associated architectural distortion or traction bronchiectasis. Dependentdebris in the trachea is most consistent with mucous/secretions. No suspicious endobronchial lesion. A subcarinal lymph node, image 104 of series 7 measuring 1.3 cm in short axisis stable in size since 11/01/2021, probably benign/reactive given stability. No new mediastinal lymphadenopathy. Mild atherosclerosis is present within the thoracic aorta which is normal in caliber.Moderate to severe [place] coronary artery atherosclerotic calcifications are present in this patient who is status post median sternotomy for CABG. There are likely coronary artery stents present. There is a small hiatal hernia. Calcified gallstones are noted in the gallbladder. The imaged solid abdominal organs are unremarkable on this noncontrast exam. Moderate atherosclerosis of the imaged proximal abdominal aorta, which is nondilated. The sternum is well opposed by median sternotomy wires. No destructive lytic or blastic bone lesion. Multilevel degenerative changes are present throughout the thoracic spine. Emphysema: Moderate (25-50%), Centrilobular, Upper lobe Coronary Artery Calcifications: Circumflex Moderate; Left Anterior Descending Severe; Right Coronary Severe Quality Analyst (topogram) images: No additional findings. IMPRESSION: LungRADS category: 2 S LungRADS modifier: Significant other (S), coronary artery calcification, moderate or severe LungRADS 0 reason: n/a MBS PAST MEDICAL HISTORY Diagnosis Date Acute on chronic respiratory failure with hypoxia (HCC) 01/15/2023 Acute, but ill-defined, cerebrovascular disease 03/17/2007 Left arm weakness Anxiety disorder 01/31/2009 Chronic obstructive pulmonary disease with (acute) exacerbation ([facility]) 12/11/2022 Coronary atherosclerosis 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 11/06/2005 Degeneration of thoracolumbar intervertebral disc 11/06/2005 compression fractures Diabetes mellitus ([facility]) Dysmetabolic syndrome X Esophageal reflux Essential tremor 11/23/2015 Generalized osteoarthrosis, unspecified site 10/16/2005 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 CVA (cerebrovascular accident) 03/17/2007 Left arm weakness CO (myocardial infarction) ([facility]) 1999 Other and unspecified hyperlipidemia Peripheral vascular disease ([facility]) 11/06/2005 Polyneuropathy in diabetes(357.2) 11/07/2005 S/P CABG x 3 06/06/2015 S/P coronary artery stent placement 06/06/2015 ST elevation CO (STEMI) ([facility]) 03/2013 Stage 3a chronic kidney disease ([facility]) 04/17/2018 Stenosis of left carotid artery 04/03/2016 Unspecified chronic bronchitis ([facility]) 06/07/2008 ALLERGIES Allergen Reactions Lisinopril Angioedema Morphine Shortness of Breath rapid heart rate Oysters GI Upset Tylenol [Acetaminop* Dystonia flushed, cold sweats, shakey atorvastatin (LIPITOR) 40 mg tablet^Take 1 tablet by mouth daily at bedtime.^Disp: 90 tablet^Rfl: 1 primidone (MYSOLINE) 50 mg tablet^Take 1 tablet by mouth two times a day.^Disp: 180 tablet^Rfl: 1 metoprolol tartrate, short acting, (LOPRESSOR) 50 mg tablet^Take 1 tablet by mouth two times a day.^Disp: 180 tablet^Rfl: 1 TRELEGY ELLIPTA 100-62.5-25 mcg inhalation powder^INHALE 1 PUFF INSTRUCTED ONCE DAILY.^Disp: 60 Each^Rfl: 11 ipratropium-albuterol (DUONEB) 0.5 mg-3 mg(2.5 mg base)/3 mL nebu^Inhale 3 mL as instructed four times daily.^Disp: 90 mL^Rfl: 5 predniSONE (DELTASONE) 10 mg tablet^TAKE BY MOUTH 4 TABLETS DAILY FOR 2 DAYS, THEN 3 TABLETS DAILY FOR 2 DAYS, THEN 2 TABLETS DAILY FOR 2 DAYS, THEN 1 TABLET DAILY FOR 2 DAYS.^Disp: 20 tablet^Rfl: 0 (Patient not taking: Reported on 11/04/2023) metFORMIN (GLUCOPHAGE) 500 mg tablet^Take 1 tablet by mouth two times a day with meals.^Disp: 180 tablet^Rfl: 1 amLODIPine (NORVASC) 5 mg tablet^Take 1 tablet by mouth once daily.^Disp: 90 tablet^Rfl: 1 Blood-Glucose Meter monitoring kit^Glucose Meter of Choice - Kit - Dx: Other DM Code E11.49^Disp: 1Each^Rfl: 0 fluticasone (FLONASE) 50 mcg/actuation nasal spray^Use 1 [place] in each nostril two times a day.^Disp: 1 Each^Rfl: 3 albuterol HFA (VENTOLIN HFA) 90 mcg/actuation inhaler^Inhale 2 Puffs as instructed every 4 hours asneeded for wheezing/shortness of breath.^Disp: 18 g^Rfl: 5 sertraline (ZOLOFT) 100 mg tablet^Take 1 tablet by mouth once daily.^Disp: 90 tablet^Rfl: 1 clopidogrel (PLAVIX) 75 mg tablet^Take 1 tablet by mouth once daily.^Disp: 90 tablet^Rfl: 1 blood sugar diagnostic (BLOOD GLUCOSE TEST) test strip^Test blood sugar(s) 2 times daily. Dx: OtherDM Code E11.41 Insulin: No^Disp: 100 Strip^Rfl: 5 saw/vit E/sod miguel/lyc/beta/pyg (PROSTATE HEALTH ORAL)^Take 3 tablets by mouth once daily.^Disp: ^Rfl: multivit with minerals/lutein (MULTI-ISABELLE 50 AND OVER ORAL)^Take 1 tablet by mouth once daily.^Disp: ^Rfl: nitroglycerin sublingual (NITROSTAT) 0.4 mg SL tablet^Dissolve 1 tablet under the tongue every 5 minutes as needed.^Disp: 30 tablet^Rfl: 1 aspirin, enteric coated (ADULT LOW DOSE ASPIRIN) 81 mg EC tablet^Take 1 tablet by mouth once daily.^Disp: ^Rfl: 0 Social History Tobacco Use Smoking status: Former Packs/day: 1.00 Years: 52.00 Additional pack years: 0.00 Total pack years: 52.00 Types: Cigarettes Start date: 1967 Quit date: 12/11/2022 Years since quittin.9 Smokeless tobacco: Never Tobacco comments: Smokers in the home. Vaping Use Vaping Use: Never used Substance Use Topics Alcohol use: Not Currently Comment: rare NAB Drug use: No FAMILY HISTORY Problem Relation Age of Onset other (Brain Ca) Mother other (CVA) Father , aneurysm other (CO) Father other (Other) Brother natural causes. None Brother no information. None Brother Cancer Son , testicular ca PMH, Social history, family history and surgical history reviewed and updated. REVIEW OF SYSTEMS: Poor historian. CONSTITUTIONAL: No fevers, chills, nightsweats, unintended weight loss HEENT: Denies frequent or severe headaches. Sinus drainage. EYES: No blurry vision. CARDIOVASCULAR: No chest pain, palpitations. PULM: SOB on exertion and cough. GI: Occasional dysphagia. No problematic reflux. : No new urinary complaints, including dysuria or hematuria NEURO: Generalized weakness. Walks with cane. MUSC-SKEL: No new joint pain, swelling. PSY: No concerns regarding depression, anxiety or panic. INTEGUMENTARY: No new skin changes. PHYSICAL EXAMINATION: BP 132/76 Pulse 71 Resp 19 Wt 181 lb (82.1kg) SpO2 95[5L via demand NC]% General Appearance: Alert, pleasant, cooperative. In no acute distress. Skin: No suspicious rashes or lesions. Oropharynx: Lips, mucosa, and tongue normal. No thrush. Lungs: Positive findings: wheezing , rhonchi . Nonproductive cough. Heart: RRR. No ectopy. Extremities: 1+ B/L LE edema. No clubbing. Musculoskeletal: No joint swelling, deformity, or tenderness. Neurologic: Ambulates with cane. Forgetful. Lymph nodes: No cervical lymphadenopathy. ASSESSMENT/PLAN: 1. Stage 3 severe COPD by GOLD classification ([facility]) - ICD9: 496, ICD10: J44.9 (primary diagnosis) - Continue Trelegy Ellipta - Increase Duoneb to at least TID - Continue PRN Albuterol - Spirometry at next visit - ALBUTEROL SULFATE HFA 90 MCG/ACTUATION AEROSOL INHALER - SPIROMETRY WITH DILATOR IF OBSTRUCTED -Use Mucinex BID 2. Former cigarette smoker - ICD9: V15.82, ICD10: Z87.891 - Continued abstinence encouraged - exposed to second hand smoke at home, encourage family to smoke outside. - Enrolled in lung cancer screening program 3. Chronic hypoxemic respiratory failure (HCC) - ICD9: 518.83, 799.02, ICD10: J96.11 - 3L O2 - Complaint and reports benefit from supplemental O2 4. Aspiration of liquid, subsequent encounter - ICD9: V58.89, 934.9, ICD10: T17.998D - s/p Esophogram at [facility] with Oropharyngeal dysphagia. Recommend outpatient speech therapy, order faxed to [facility]. - CONSULT TO SPEECH THERAPY Portions of this documentation were copied and pasted from previous office visit notes in order to provide a cohesive continuity of the history. The note has been reviewed and edited and updated as necessary. Trinidad Galdamez APRN.WINERY WORKER Attending Note I have personally performed a face to face assessment of the patient and have reviewed the DAYSI note. I performed a substantive portion of the visit including all aspects of the following review of past history, current symptoms, reviewing imaging with interpretation, and physical exam. My [place] findings include: course rhonchi on exam with concerns for aspiration. Already on good inhaled therapy with recommendation for bid to tid dosing of Duoneb. Aspiration documented by MBS. Recommendations forspeech therapy. CT of chest without suspicious lesions. Signature: Clark Rothman MD Date: 12/02/2023 Time: 8:07 PM Clark Rothman MD [facility] [place] documented in [facility] encounterOur [facility] Telephone encounter Note * Telephone Encounter - Milad Kowalski LPN - 11/26/2023 1:58 PM EDT Patient has been identified by name and date of : Yes Patient phones for refill(s): Requested Prescriptions Pending Prescriptions Disp Refills atorvastatin (LIPITOR) 40 mg tablet 90 tablet 1 Sig: Take 1 tablet by mouth daily at bedtime. primidone (MYSOLINE) 50 mg tablet 180 tablet 1 Sig: Take 1 tablet by mouth two times a day. Date of last office visit in primary care: 09/19/2023 Date of next office visit in primary care: 12/18/2023 Please advise. Thank you. Milad Kowalski LPN. [facility] [place] Miscellaneous Notes* Telephone Encounter - Milad Kowalski LPN - 11/26/2023 1:58 PM EDT Patient has been identified by name and date of : Yes Patient phones for refill(s): Requested Prescriptions Pending Prescriptions Disp Refills atorvastatin (LIPITOR) 40 mg tablet 90 tablet 1 Sig: Take 1 tablet by mouth daily at bedtime. primidone (MYSOLINE) 50 mg tablet 180 tablet 1 Sig: Take 1 tablet by mouth two times a day. Date of last office visit in primary care: 09/19/2023 Date of next office visit in primary care: 12/18/2023 Please advise. Thank you. Milad Kowalski LPN. * Telephone Encounter - Lynn Jacinto - 11/26/2023 12:40 PM EDT Patient has been identified by name and date of : Yes Requested Prescriptions Pending Prescriptions Disp Refills atorvastatin (LIPITOR) 40 mg tablet 90 tablet 1 Sig: Take 1 tablet by mouth daily at bedtime. primidone (MYSOLINE) 50 mg tablet 180 tablet 1 Sig: Take 1 tablet by mouth two times a day. RX INSTRUCTIONS: Patient aware RX will be sent to pharmacy. No need to notify patient. Lynn Guo documented in this encounterOur [facility] [place] Telephone encounter Note * Telephone Encounter - Lynn Jacinto - 11/26/2023 12:40 PM EDT Patient has been identified by name and date of : Yes Requested Prescriptions Pending Prescriptions Disp Refills atorvastatin (LIPITOR) 40 mg tablet 90 tablet 1 Sig: Take 1 tablet by mouth daily at bedtime. primidone (MYSOLINE) 50 mg tablet 180 tablet 1 Sig: Take 1 tablet by mouth two times a day. RX INSTRUCTIONS: Patient aware RX will be sent to pharmacy. No need to notify patient. Lynn Ching Pss [facility]04-09-[facility] History of Present illness Narrative* Tash Hammer RT(R) - 11/04/2023 1:30 PM EDT Radiology Service Progress Note PATIENT NAME: Kam Greenberg DATE OF SERVICE: November 04, 2023 TIME: 2:07 PM PATIENT IDENTITY VERIFICATION COMPLETED USING TWO (2) IDENTIFIERS: Name and Date of confirmedby patient verbally. FALL SCREENING: Has the patient had 2 falls in the last year or 1 fall with injury or currently using an Ambulatory Assistive Device (Walker, Cane, Wheelchair, Crutches, etc.)? Yes, Patient High Riskfor Falls What interventions were put in place to prevent falls during this visit? Offered Assistance with Transfers/Clothing, Instructed Patient to Remain Seated (Not on Exam Table) Until Exam, and Increased Observations by Caregivers PATIENT GENDER DATA: Male PATIENT RELEVANT IMPLANT DATA REVIEWED: Yes PATIENT PRESENTS WITH AN IMPLANTABLE OR ATTACHED FITNESS TRAINER: No RADIOLOGY DEPARTMENT: General X-ray: Exam(s) Completed: Lower Extremity X- Ray(s): Toes, Right 2nd toe PERIPHERAL IV DATA: Not applicable SIGNED BY: RT Tamiko(R) November 04, 2023 2:07 PM documented in this encounterOur [facility] [place] History of Present illness Narrative* Olu Miller - 11/04/2023 1:04 PM EDT Last saw pcp: 09/19/23 Subjective: Patient presents to clinic c/o painful toenails. They state that the nails are especially painful with shoe gear and pressure. Patient states that nails 1-5 b/l are painful. Patient admits to being diabetic. No other pedal complaints at this time. Patient states no change in medications or medical history since last visit. Objective: Patient presents to clinic ambulating in diabetic shoes Vasc: DP and PT pulses are faintly palpable bilateral. CFT is less than 5 seconds bilateral. Skin temperature is warm to cool proximal to distal bilateral. There is mild edema or varicosities noted. Neuro: Protective sensation is decreased to the foot and toes when tested with the 5.07 SWM bilateral. Vibratory sensation is absent at the hallux IPJ bilateral. The hallux is downgoing bilateral. Derm: Nails 1-5 b/l are painful, discolored-yellow, thick, crumbly, dystrophic and with subungal debris. Skin is of normal turgor, texture and hair growth is absent bilateral. There are callus to right 2nd toe. No ulceration is noted. Ortho: Muscle strength is 5/5 for all pedal groups tested. Ankle joint DF is decreased with the knee extended with no pain or crepitus noted. 1st MPJ ROM is decreased bilateral. Bruising is noted to right 2nd toe. Hammertoes are present to b/l feet Assessment: (B35.1) Onychomycosis (primary encounter diagnosis) (M79.675) Pain in toe of left foot (M79.674) Pain in toe of right foot (E11.42) Diabetic polyneuropathy associated with type 2 diabetes mellitus (HCC) (S90.111A) Contusion of right great toe without damage to nail, initial encounter Plan: Patient was seen and evaluated. Nails 1-5 bilateral were debrided in length and thickness. Callus reduced to right 2nd toe with dremmel. Discussed hammertoe of b/l feet. Contineu with diabetic shoes and hammertoe padding. Patient was instructed on the continued importance of diabetic foot care along with proper diet andkeeping their blood sugar under control to prevent complications. He does have component of neuropathy. It is important to avoid barefoot walking, wear good shoes and to inspect feet daily. Discussed bruising of right 2nd toe. Will get xray to assure no fracture. Patient is to RTC in 3-4 months. Olu Miller DPM * Kirstin Vaz RN - 11/04/2023 12:57 PM EDT Patient presents with: Left Foot - Established Patient, Follow Up, Diabetic Foot Care Right Foot - Established Patient, Follow Up, Diabetic Foot Care Patient presents for 3 month follow up diabetic foot and nail care. CINDY- 08/04/23 documented in this encounterOur [facility] [place] Miscellaneous Notes* Telephone Encounter - Yoav Sutherland Ma - 10/13/2023 1:38 PM EDT Requested Prescriptions Pending Prescriptions Disp Refills metoprolol tartrate, short acting, (LOPRESSOR) 50 mg tablet 180 tablet 1 Sig: Take 1 tablet by mouth two times a day. Date of last office visit in primary care: 09/19/2023 Date of next office visit in primary care: 12/18/2023 Please advise. Thank you. Yoav Sutherland Ma. * Telephone Encounter - Lynn Jacinto - 10/13/2023 1:25 PM EDT Patient has been identified by name and date of : Yes Requested Prescriptions Pending Prescriptions Disp Refills metoprolol tartrate, short acting, (LOPRESSOR) 50 mg tablet 180 tablet 1 Sig: Take 1 tablet by mouth two times a day. RX INSTRUCTIONS: Patient aware RX will be sent to pharmacy. No need to notify patient. Lynn Guo documented in this encounterOur [facility] [place] History of Present illness Narrative* Timothy Allen MD - 10/09/2023 9:15 AM EDT Type 2 Diabetes Mellitus without Diabetic Retinopathy, both eyes Hemoglobin A1C (%) Date Value 09/19/2023 6.5 05/01/2023 6.3 07/04/2022 6.3 04/12/2021 6.8 05/19/2020 6.4 04/08/2019 6.1 Hemoglobin A1C (POCT) (%) Date Value 01/15/2023 7.0 - BP/BS/Lipid control and regular monitoring with exams reviewed Pseudophakia, both eyes - Intraocular lens well-centered - Plan: observe Follow Up: Dr. Forman for annual Diabetic retinopathy checks I have confirmed and edited as necessary the relevant ophthalmic history, ROS, and exam findings asobtained by others. I have seen and examined this patient. I have discussed the case and the management of this patient's care with the Resident, if applicable. I also have reviewed and agree with the assessment and plan as stated above and agree with all ofits relevant components. Timothy Allen MD Vitreoretinal Surgery [facility] documented in this encounterOur [facility] [place] Miscellaneous Notes* Telephone Encounter - Danelle Eng RN - 09/24/2023 4:52 PM EST Spoke with patient. Given message from provider's office. Patient verbalizes understanding. Patientsays he is feeling much better after starting Prednisone. Danelle nEg RN * Telephone Encounter - Milad Kowalski LPN - 09/24/2023 8:25 AM EST Attempted to call Patient, vm is not set up, will try again later. Milad Kowalski LPN * Telephone Encounter - Milad Kowalski LPN - 09/24/2023 8:23 AM EST ----- Message from Royce Carroll MD sent at 09/23/2023 10:00 PM EST ----- No acute disease. documented in this encounterOur [facility] Of [facility] [place] History of Present illness Narrative* Royce Carroll MD - 09/20/2023 6:23 PM EST This note was created using Channel IQter. Subjective Kam Greenberg is a 72 year old male. He had no concerns. He was audibly wheezing and had a congested cough which he indicated was not new. He denied flu like symptoms or acute illness. Review of Systems Constitutional: Negative for chills and fever. HENT: Negative for congestion and sore throat. Respiratory: Positive for cough, shortness of breath and wheezing. Cardiovascular: Negative for chest pain, palpitations and leg swelling. Gastrointestinal: Negative for constipation and diarrhea. Genitourinary: Negative for difficulty urinating and dysuria. Musculoskeletal: Positive for gait problem. Neurological: Negative for dizziness and headaches. 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, Without Long-Term Current Use of Insulin ([facility]) At Risk for Falls Abnormality of Gait Chronic Obstructive Pulmonary Disease With (Acute) Exacerbation (Hcc) Acute On Chronic Respiratory Failure With Hypoxia ([facility]) Chronic Diastolic Chf (Congestive Heart Failure) ([facility]) Social History Tobacco Use Smoking status: Former Packs/day: 1.00 Years: 52.00 Additional pack years: 0.00 Total pack years: 52.00 Types: Cigarettes Start date: 1967 Quit date: 12/11/2022 Years since quittin.7 Smokeless tobacco: Never Tobacco comments: Smokers in the home. Vaping Use Vaping Use: Never used Substance Use Topics Alcohol use: Not Currently Comment: rare NAB Drug use: No Current Outpatient Medications Medication Sig metFORMIN (GLUCOPHAGE) 500 mg tablet Take 1 tablet by mouth two times a day with meals. amLODIPine (NORVASC) 5 mg tablet Take 1 tablet by mouth once daily. Blood-Glucose Meter monitoring kit Glucose Meter of Choice - Kit - Dx: Other DM Code E11.49 fluticasone (FLONASE) 50 mcg/actuation nasal spray Use 1 [place] in each nostril two times a day. hgckkujmgsx-qossgpbez-uafmcpul (TRELEGY ELLIPTA) 100-62.5-25 mcg inhalation powder Inhale 1 Puff asinstructed once daily. albuterol HFA (VENTOLIN HFA) 90 mcg/actuation inhaler Inhale 2 Puffs as instructed every 4 hours asneeded for wheezing/shortness of breath. metoprolol tartrate, short acting, (LOPRESSOR) 50 mg tablet Take 1 tablet by mouth twice daily. sertraline (ZOLOFT) 100 mg tablet Take 1 tablet by mouth once daily. atorvastatin (LIPITOR) 40 mg tablet Take 1 tablet by mouth daily at bedtime. primidone (MYSOLINE) 50 mg tablet Take 1 tablet by mouth twice daily. clopidogrel (PLAVIX) 75 mg tablet Take 1 tablet by mouth once daily. blood sugar diagnostic (BLOOD GLUCOSE TEST) test strip Test blood sugar(s) 2 times daily. Dx: OtherDM Code E11.41 Insulin: No saw/vit E/sod miguel/lyc/beta/pyg (PROSTATE HEALTH ORAL) Take 3 tablets by mouth once daily. multivit with minerals/lutein (MULTI-ISABELLE 50 AND OVER ORAL) Take 1 tablet by mouth once daily. nitroglycerin sublingual (NITROSTAT) 0.4 mg SL tablet Dissolve 1 tablet under the tongue every 5 minutes as needed. aspirin, enteric coated (ADULT LOW DOSE ASPIRIN) 81 mg EC tablet Take 1 tablet by mouth once daily. ipratropium-albuterol (DUONEB) 0.5 mg-3 mg(2.5 mg base)/3 mL nebu Inhale 3 mL as instructed four times daily. doxycycline (VIBRA-TABS) 100 mg tablet Take 1 tablet by mouth two times a day for 5 days. predniSONE (DELTASONE) 10 mg tablet TAKE BY MOUTH 4 TABLETS DAILY FOR 2 DAYS, THEN 3 TABLETS DAILY FOR 2 DAYS, THEN 2 TABLETS DAILY FOR 2 DAYS, THEN 1 TABLET DAILY FOR 2 DAYS. No current facility-administered medications for this visit. Facility-Administered Medications Ordered in Other Visits Medication Dose Route Frequency propofol injection (DIPRIVAN) INTRAVENOUS PRN midazolam (PF) injection (VERSED) INTRAVENOUS PRN Objective BP 128/70 Pulse 78 Temp 36.6 C (97.9 F) Resp 18 Ht 186.1 cm (6' 1.25) Wt 82.6 kg (182 lb) SpO2 92% BMI 23.85 kg/m Physical Exam Constitutional: Appearance: He is ill-appearing. HENT: Head: Normocephalic. Nose: Nose normal. Eyes: Conjunctiva/sclera: Conjunctivae normal. Cardiovascular: Rate and Rhythm: Normal rate and regular rhythm. Heart sounds: No murmur heard. No gallop. Pulmonary: Effort: Respiratory distress present. Breath sounds: Wheezing, rhonchi and rales present. Comments: On portable O2 via NC. Abdominal: Tenderness: There is no abdominal tenderness. Musculoskeletal: Cervical back: No tenderness. Right lower leg: No edema. Left lower leg: No edema. Neurological: General: No focal deficit present. Mental Status: He is alert. Gait: Gait abnormal. Comments: Using cane. Assessment and Plan 1. Medicare annual wellness visit, subsequent - ICD9: V70.0, ICD10: Z00.00 (primary diagnosis) See wellness note. - DEPRESSION SCREENING/ASSESSMENT - ADVANCE CARE PLAN DISCUSSION 2. Abnormality of gait - ICD9: 781.2, ICD10: R26.9 - FALLS RISK EDUCATION 3. Falling episodes - ICD9: 781.99, E888.9, ICD10: R29.6 - FALLS RISK EDUCATION 4. Chronic obstructive pulmonary disease with (acute) exacerbation (HCC) - ICD9: 491.21, ICD10: J44.1 - IPRATROPIUM 0.5 MG-ALBUTEROL 3 MG (2.5 MG BASE)/3 ML NEBULIZATION SOLN - XR CHEST 2V FRONTAL/LAT - DOXYCYCLINE HYCLATE 100 MG TABLET - PREDNISONE 10 MG TABLET 5. Type 2 diabetes mellitus with diabetic peripheral angiopathy without gangrene, without long-termcurrent use of insulin (HCC) - ICD9: 250.70, 443.81, ICD10: E11.51 - Controlled - Continue current medications - COMP METABOLIC PANEL - LIPID PANEL, NONFASTING - HGB A1C - ALBUMIN/CREAT RATIO RND UR 6. Atherosclerosis of coronary artery of [place] heart without angina pectoris, unspecified vessel or lesion type - ICD9: 414.01, ICD10: I25.10 Stable. 7. Type 2 diabetes mellitus with diabetic mononeuropathy, without long-term current use of insulin (HCC) - ICD9: 250.60, 355.9, ICD10: E11.41 - Controlled - Continue current medications Royce Carroll MD * Royce Carroll MD - 09/19/2023 2:55 PM EST Kam Greenberg is a 72 year old male here for a Medicare wellness visit. Medicare Health Risk Assessment General Health Fair Exercise: Minutes/Day 10 min Exercise: Days/Week 7 days Alcohol: Daily Use Never Alcohol: Drinks/Day Patient does not drink Alcohol: 6 or more drinks Never Feel off balance Yes Concerns: Teeth/Dentures No Concerns: Sexual function No Troubled by feelings None of the above Frequency: Eating healthy diet More than half the days ADLs requiring help None of the above Safety precautions in home/vehicle Yes Smoke, vape, chews tobacco No Difficulty hearing Yes Difficulty seeing Yes Current Providers Specialists: I have reviewed specialist-related care of the patient in the medical record. Current care team: Patient Care Team: Royce Carroll MD as PCP - General Meghann Forman, OD. Tabatha Jarrett MD Ophthalmology Clark Rothman MD, Pulmonary. Shaquille Castillo MD, Neurology. Sharon Limon DO, Vascular Surgery. Jair Miller DPM Medical/Family history review Reviewed and updated problem list, medical/surgical/family/social history, medications, and allergies. Opioid use review Opioid Medications (last 90 days) Some values may be hidden. Unless noted otherwise, only the newest values recorded on each date aredisplayed. Opioid Medications No data to display. Depression screening Depression Screening PHQ-2 Score PHQ-9 Score 09/19/2023 0 - Depression screening tool completed and reviewed. Based on score and interview, patient is not at risk for depression. Screening tool discussed with patient, and I recommended no further interventionat this time. Cognitive screening Mini Cog Score: 4 Cognitive screening reviewed and no further action needed (score 3-5) Functional Observation Was the patient's Timed Up & Go test unsteady or ? 12 seconds? No Advance Care Planning Patient did not wish or was not able to name a surrogate decision maker or provide an advance care plan Measurements BP 128/70 Pulse 78 Temp 97.9 Resp 18 Ht 6' 1.25 (1.86m) Wt 182 lb (82.6kg) SpO2 92[on O2 3lpm via NC]% BMI 23.84 kg/(m^2). Additional screenings: No results found. Assessment/Plan Medicare annual wellness visit, subsequent (Z00.00) - Counseled on healthy diet and regular exercise - Fall avoidance information provided - Personalized prevention plan provided documented in this encounterOur [facility] [place] History of Present illness Narrative* Rajwinder Champagne RT(R) - 09/19/2023 4:00 PM EST Radiology Service Progress Note PATIENT NAME: Kam Greenberg DATE OF SERVICE: September 19, 2023 TIME: 3:50 PM PATIENT IDENTITY VERIFICATION COMPLETED USING TWO (2) IDENTIFIERS: Name and Date of confirmedby patient verbally. FALL SCREENING: Has the patient had 2 falls in the last year or 1 fall with injury or currently using an Ambulatory Assistive Device (Walker, Cane, Wheelchair, Crutches, etc.)? No PATIENT GENDER DATA: Male PATIENT RELEVANT IMPLANT DATA REVIEWED: Yes PATIENT PRESENTS WITH AN IMPLANTABLE OR ATTACHED FITNESS TRAINER: No RADIOLOGY DEPARTMENT: General X-ray: Exam(s) Completed: Chest X-Ray PERIPHERAL IV DATA: Not applicable SIGNED BY: RT Shelton(R) September 19, 2023 3:50 PM documented in this encounterOur Lady Of [facility] Instructions* Patient Instructions* Royce Carroll MD - 09/19/2023 2:59 PM EST You would benefit from general conditioning exercise programs such as those offered by recreation centers or the HEALTH SYSTEM. WHAT YOU CAN DO TO PREVENT FALLS Many falls can be prevented. By making some changes, you can lower your chances of falling. Four things YOU can do to prevent falls for you* and your caregiver 1. Begin a regular exercise program Exercise is one of the most important ways to lower your chances of falling. It makes you stronger and helps you feel better. Exercises that improve balance and coordination (like [place]) are the most helpful. Lack of exercise leads to weakness and increases your chances of falling. Ask your doctor or health care provider about the best type of exercise program for you. 2. Have your health care provider review your medicines Have your doctor or pharmacist review all the medicines you take, even [id number]-[id number] medicines. As you get older, the way medicines work in your body can change. Some medicines, or combinations of medicines, can make you sleepy or dizzy andcan cause you to fall. 3. Have your vision checked Have your eyes checked by an eye doctor at least once a year. You may be wearing the wrong glasses or have a condition like glaucoma or cataracts that limits your vision. Poor vision can increase your chances of falling. 4. Make your home safer About half of all falls happen at home. To make your home safer: Remove things you can trip over (like papers, books, clothes, and shoes) from stairs and places where you walk. Remove small throw rugs or use double-sided tape to keep the rugs from slipping. Keep items you use often in cabinets you can reach easily without using a step stool. Have grab bars put in next to your toilet and in the tub or shower. Use non-slip mats in the bathtub and on shower floors. Improve the lighting in your home. As you get older, you need brighter lights to see well. Hang light-weight curtains or shades to reduce glare. Have handrails and lights put in on all staircases. Wear shoes both inside and outside the house. Avoid going barefoot or wearing slippers. For more information, contact: Centers for Disease Control and Prevention www.cdc.gov/injury * This information may not apply if you have certain medical conditions. documented in this encounterOur [facility] Of [facility]12-13-[facility]23 Instructions* Patient Instructions* Tabatha Jarrett MD - 07/09/2023 2:52 PM EST Images from the original note were not included. documented in this encounterOur Lady Of [facility] [place]12-13-2023 History of Present illness Narrative* Tabatha Jarrett MD - 07/09/2023 2:50 PM EST Assessment and Plan 1. Nuclear sclerosis of both eyes -s/p cataract extraction with intraocular lens implantation right eye 05/06/23 -s/p cataract extraction with intraocular lens implantation left eye 07/08/23 -looks good. Patient happy with outcome 2. Type 2 diabetes mellitus without retinopathy (HCC) -no diabetic retinopathy both eyes -followed by Dr. Forman 3. Refractive error -stable Plan: -Continue blood sugar and blood pressure control -drops per protocol -precautions -1 week / sooner as needed I have confirmed and edited as necessary the relevant ophthalmic history, ROS, and the neuro exam findings as obtained by others. I have seen and examined Kam Greenberg. I have discussed the case and the management of this patient's care with the Resident/Fellow, if applicable. I also have reviewed and agree with the assessment and plan as stated above and agree withall of its relevant components. Tabatha Jarrett MD documented in this encounterOur Lady Of [facility] [place]12-12-2023 History of Past illness Narrative* Problem Noted Date Diagnosed Date Resolved Date Combined forms of age-relate d cataract of left eye 07/08/2023 07/08/2023 Nuclear sclerosis of right eye 05/06/2023 05/06/2023 Lumbar spondylosis 11/13/2021 3 History of stroke 11/13/2021 01/15/2023 Lung nodule < 6cm on CT 10/17/2021 1202/2022 Tobacco use disorder 05/25/2012 023 Adhesive capsulitis of shoulder 10/19/2010 11/20/2011 Other acquired deformity of toe 03/23/2009 09/29/2017 Dermatophytosis of nail 03/23/2009 03/0 11/2017 Polyneuropathy in diabetes(357.2) 11/07/2005 11/22/2013 Peripheral vascular disease 11/06/2005 11/13/2020 Type II or unspecified type diabetes mellitus without mention of complication, uncontrolled 10/21/2005 11/22/2013 Dysmetabolic syndrome X 10/26 Esophageal reflux 09/29/2017 documented as of this encounter (statuses as of 07/10/2023) [facility] History of Past illness Narrative* Problem Noted Date Diagnosed Date Resolved Date Combined forms of age-relate d cataract of left eye 07/08/2023 07/08/2023 Nuclear sclerosis of right eye 05/06/2023 05/06/2023 Lumbar spondylosis 11/13/2021 History of stroke 11/13/2021 01/15/2023 Lung nodule < 6cm on CT 10/17/20210 02/2022 Tobacco use disorder 05/25/2012 023 Adhesive capsulitis of shoulder 10/19/2010 11/20/2011 Other acquired deformity of toe 03/23/2009 09/29/2017 Dermatophytosis of nail 03/23/2009 030 11/2017 Polyneuropathy in diabetes(357.2) 11/07/2005 11/22/2013 Peripheral vascular disease 11/06/2005 11/13/2020 Type II or unspecified type diabetes mellitus without mention of complication, uncontrolled 10/21/2005 11/22/2013 Dysmetabolic syndrome X 10/26 Esophageal reflux 09/29/2017 documented as of this encounter (statuses as of 09/20/2023) [facility] History of Past illness Narrative* Problem Noted Date Diagnosed Date Resolved Date Combined forms of age-relate d cataract of left eye 07/08/2023 07/08/2023 Nuclear sclerosis of right eye 05/06/2023 05/06/2023 Lumbar spondylosis 11/13/2021 3 History of stroke 11/13/2021 01/15/2023 Lung nodule < 6cm on CT 10/17/2021 120 02/2022 Tobacco use disorder 05/25/2012 023 Adhesive capsulitis of shoulder 10/19/2010 11/20/2011 Other acquired deformity of toe 03/23/2009 09/29/2017 Dermatophytosis of nail 03/23/20090 11/2017 Polyneuropathy in diabetes(357.2) 11/07/2005 11/22/2013 Peripheral vascular disease 11/06/2005 11/13/2020 Type II or unspecified type diabetes mellitus without mention of complication, uncontrolled 10/21/2005 11/22/2013 Dysmetabolic syndrome X 10/26 Esophageal reflux 09/29/2017 documented as of this encounter (statuses as of 09/25/2023) [facility] History of Past illness Narrative* Problem Noted Date Diagnosed Date Resolved Date Combined forms of age-relate d cataract of left eye 07/08/2023 07/08/2023 Nuclear sclerosis of right eye 05/06/2023 05/06/2023 Lumbar spondylosis 11/13/2021 History of stroke 11/13/2021 01/15/2023 Lung nodule < 6cm on CT 10/17/202102/2022 Tobacco use disorder 05/25/201205/23/ 023 Adhesive capsulitis of shoulder 10/19/2010 11/20/2011 Other acquired deformity of toe 03/23/2009 09/29/2017 Dermatophytosis of nail 03/23/200911/2017 Polyneuropathy in diabetes(357.2) 11/07/2005 11/22/2013 Peripheral vascular disease 11/06/2005 11/13/2020 Type II or unspecified type diabetes mellitus without mention of complication, uncontrolled 10/21/2005 11/22/2013 Dysmetabolic syndrome X 10/26 Esophageal reflux 09/29/2017 documented as of this encounter (statuses as of 10/09/2023) [facility] History of Past illness Narrative* Problem Noted Date Diagnosed Date Resolved Date Combined forms of age-relate d cataract of left eye 07/08/2023 07/08/2023 Nuclear sclerosis of right eye 05/06/2023 05/06/2023 Lumbar spondylosis 11/13/2021 History of stroke 11/13/2021 01/15/2023 Lung nodule < 6cm on CT 10/17/2021 12/0 02/2022 Tobacco use disorder 05/25/2012 023 Adhesive capsulitis of shoulder 10/19/2010 11/20/2011 Other acquired deformity of toe 03/23/2009 09/29/2017 Dermatophytosis of nail 03/23/20090 11/2017 Polyneuropathy in diabetes(357.2) 11/07/2005 11/22/2013 Peripheral vascular disease 11/06/2005 11/13/2020 Type II or unspecified type diabetes mellitus without mention of complication, uncontrolled 10/21/2005 11/22/2013 Dysmetabolic syndrome X 10/26 Esophageal reflux 09/29/2017 documented as of this encounter (statuses as of 10/13/2023) [facility] History of Past illness Narrative* Problem Noted Date Diagnosed Date Resolved Date Combined forms of age-relate d cataract of left eye 07/08/2023 07/08/2023 Nuclear sclerosis of right eye 05/06/2023 05/06/2023 Lumbar spondylosis 11/13/2021 History of stroke 11/13/2021 01/15/2023 Lung nodule < 6cm on CT 10/17/202102/2022 Tobacco use disorder 05/25/2012 023 Adhesive capsulitis of shoulder 10/19/2010 11/20/2011 Other acquired deformity of toe 03/23/2009 09/29/2017 Dermatophytosis of nail 03/23/20090 11/2017 Polyneuropathy in diabetes(357.2) 11/07/2005 11/22/2013 Peripheral vascular disease 11/06/2005 11/13/2020 Type II or unspecified type diabetes mellitus without mention of complication, uncontrolled 10/21/2005 11/22/2013 Dysmetabolic syndrome X 10/26 Esophageal reflux 09/29/2017 documented as of this encounter (statuses as of 11/05/2023) [facility] History of Past illness Narrative* Problem Noted Date Diagnosed Date Resolved Date Combined forms of age-relate d cataract of left eye 07/08/2023 07/08/2023 Nuclear sclerosis of right eye 05/06/2023 05/06/2023 Lumbar spondylosis 11/13/2021 History of stroke 11/13/2021 01/15/2023 Lung nodule < 6cm on CT 10/17/202102/2022 Tobacco use disorder 05/25/2012 023 Adhesive capsulitis of shoulder 10/19/2010 11/20/2011 Other acquired deformity of toe 03/23/2009 09/29/2017 Dermatophytosis of nail 03/23/200911/2017 Polyneuropathy in diabetes(357.2) 11/07/2005 11/22/2013 Peripheral vascular disease 11/06/2005 11/13/2020 Type II or unspecified type diabetes mellitus without mention of complication, uncontrolled 10/21/2005 11/22/2013 Dysmetabolic syndrome X 10/26 Esophageal reflux 09/29/2017 documented as of this encounter (statuses as of 11/05/2023) [facility] Miscellaneous Notes* Telephone Encounter - Nona Mandujano RN - 06/30/2023 2:50 PM EST Pended all pre-operative drops for the left eye to Dr. Jarrett for approval. Nona Mandujano RN June 30, 2023 2:52 PM documented in this encounterOur Lady Of [facility]12-01-[address] [facility]11-17-2023 History of Present illness Narrative* Gabby De La Cruz APRN.JULIO - 06/13/2023 12:58 PM EST CC: Patient presents with: Pre-Op Exam HPI Kam Greenberg is a 72 year old male who presents today for pre-op evaluation. He is scheduled for cataract surgery of the left eye on 07/08. He had the right eye done on 05/06 under [facility]. There were no post op complications. Diabetes and hypertension are well controlled. COPD symptoms have improved significantly since starting Trelegy. He wears oxygen as needed and continuously at night. He quit smoking November 2022 and has not resumed. Denies alcohol use. Taking all medications as prescribed, denies side effects. No history of renal failure or DENNIS. Review of Systems Constitutional: Negative for chills, diaphoresis, fatigue, fever and unexpected weight change. HENT: Positive for trouble swallowing (meats and dry foods). Drooling: chronic, no worsening. Respiratory: Positive for cough and shortness of breath (with moderate exertion only). Negative forchoking and wheezing. Cardiovascular: Negative for chest pain, palpitations and leg swelling. Gastrointestinal: Negative. Genitourinary: Negative. Musculoskeletal: Negative. Neurological: Negative for dizziness, syncope, weakness and light-headedness. 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 11/06/2005 Degeneration of thoracolumbar intervertebral disc 11/06/2005 compression fractures Diabetes mellitus ([facility]) Dysmetabolic syndrome X Esophageal reflux Essential tremor 11/23/2015 Generalized osteoarthrosis, unspecified site 10/16/2005 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 CVA (cerebrovascular accident) 03/17/2007 Left arm weakness CO (myocardial infarction) ([facility]) 1999 Other and unspecified hyperlipidemia Peripheral vascular disease ([facility]) 11/06/2005 Polyneuropathy in diabetes(357.2) 11/07/2005 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 Polio RPR 1ST INGUN HRNA AGE 6 YRS/> REDUCIBLE 1957 Hernia repair, inguinal, right TRANSCATH STENT INIT VESSEL,PERCUT MARKUS to SVG to RCA & MARKUS to SVG to OM ALLERGIES Lisinopril, Morphine, Oysters, and Tylenol [Acetaminophen] MEDICATIONS amLODIPine (NORVASC) 5 mg tablet^Take 1 tablet by mouth once daily.^Disp: 90 tablet^Rfl: 1 Blood-Glucose Meter monitoring kit^Glucose Meter of Choice - Kit - Dx: Other DM Code E11.49^Disp: 1Each^Rfl: 0 fluticasone (FLONASE) 50 mcg/actuation nasal spray^Use 1 [place] in each nostril two times a day.^Disp: 1 Each^Rfl: 3 obljwnmynxm-tbxfkwfvx-wrqiexbz (TRELEGY ELLIPTA) 100-62.5-25 mcg inhalation powder^Inhale 1 Puff asinstructed once daily.^Disp: 1 Each^Rfl: 5 keTORolac (ACULAR) 0.5 % ophthalmic solution^Use 1 Drop in the right eye four times daily. Please start 2 days prior to your surgical date^Disp: 5 mL^Rfl: 0 prednisoLONE acetate (PRED FORTE) 1 % ophthalmic suspension^Use 1 Drop in the right eye four times daily. Please start 2 days prior to your surgical date^Disp: 5 mL^Rfl: 1 moxifloxacin (VIGAMOX) 0.5 % ophthalmic solution^Use 1 Drop in the right eye four times daily. Please start 2 days prior to your surgical date^Disp: 3 mL^Rfl: 0 albuterol HFA (VENTOLIN HFA) 90 mcg/actuation inhaler^Inhale 2 Puffs as instructed every 4 hours asneeded for wheezing/shortness of breath.^Disp: 18 g^Rfl: 5 metoprolol tartrate, short acting, (LOPRESSOR) 50 mg tablet^Take 1 tablet by mouth twice daily.^Disp: 180 tablet^Rfl: 1 sertraline (ZOLOFT) 100 mg tablet^Take 1 tablet by mouth once daily.^Disp: 90 tablet^Rfl: 1 atorvastatin (LIPITOR) 40 mg tablet^Take 1 tablet by mouth daily at bedtime.^Disp: 90 tablet^Rfl: 1 primidone (MYSOLINE) 50 mg tablet^Take 1 tablet by mouth twice daily.^Disp: 180 tablet^Rfl: 1 clopidogrel (PLAVIX) 75 mg tablet^Take 1 tablet by mouth once daily.^Disp: 90 tablet^Rfl: 1 metFORMIN (GLUCOPHAGE) 500 mg tablet^Take 1 tablet by mouth twice daily with meals.^Disp: 180 tablet^Rfl: 1 blood sugar diagnostic (BLOOD GLUCOSE TEST) test strip^Test blood sugar(s) 2 times daily. Dx: OtherDM Code E11.41 Insulin: No^Disp: 100 Strip^Rfl: 5 ipratropium-albuterol (DUONEB) 0.5 mg-3 mg(2.5 mg base)/3 mL nebu^Inhale 3 mL as instructed four times daily.^Disp: 90 mL^Rfl: 5 saw/vit E/sod miguel/lyc/beta/pyg (PROSTATE HEALTH ORAL)^Take 3 tablets by mouth once daily.^Disp: ^Rfl: multivit with minerals/lutein (MULTI-ISABELLE 50 AND OVER ORAL)^Take 1 tablet by mouth once daily.^Disp: ^Rfl: nitroglycerin sublingual (NITROSTAT) 0.4 mg SL tablet^Dissolve 1 tablet under the tongue every 5 minutes as needed.^Disp: 30 tablet^Rfl: 1 aspirin, enteric coated (ADULT LOW DOSE ASPIRIN) 81 mg EC tablet^Take 1 tablet by mouth once daily.^Disp: ^Rfl: 0 FAMILY HISTORY Problem Relation Age of Onset other (Brain Ca) Mother other (CVA) Father , aneurysm other (CO) Father other (Other) Brother natural causes. None Brother no information. None Brother Cancer Son , testicular ca Social History Tobacco Use Smoking status: Former Packs/day: 1.00 Years: 52.00 Additional pack years: 0.00 Total pack years: 52.00 Types: Cigarettes Start date: 1967 Quit date: 12/11/2022 Years since quittin.5 Smokeless tobacco: Never Tobacco comments: Smokers in the home. Vaping Use Vaping Use: Never used Substance Use Topics Alcohol use: Not Currently Comment: rare NAB Drug use: No BP 132/66 Pulse 74 Resp 20 Ht 186.7 cm (6' 1.5) Wt 83.5 kg (184 lb) SpO2 93% BMI 23.95kg/m Physical Exam Vitals reviewed. Constitutional: Appearance: Normal appearance. HENT: Mouth/Throat: Mouth: Mucous membranes are moist. Pharynx: Oropharynx is clear. Eyes: Conjunctiva/sclera: Conjunctivae normal. Cardiovascular: Rate and Rhythm: Normal rate and regular rhythm. Pulses: Normal pulses. Heart sounds: Normal heart sounds. No murmur heard. Pulmonary: Effort: Pulmonary effort is normal. Breath sounds: Decreased breath sounds present. No wheezing, rhonchi or rales. Musculoskeletal: Cervical back: Neck supple. Right lower leg: No edema. Left lower leg: No edema. Skin: General: Skin is warm and dry. Neurological: Mental Status: He is alert. Psychiatric: Mood and Affect: Mood normal. Diagnoses/Plan 1. Pre-operative evaluation Reviewed labs and EKG from 05/01, no concerning findings and no indications to recheckThere is no known pertinent medical condition which may affect carla- operative course [place] risk: Patient is scheduled for a low-risk procedure. The patient is medically optimized for surgery 2. Type 2 diabetes mellitus with diabetic peripheral angiopathy without gangrene, without long-termcurrent use of insulin (HCC) - ICD9: 250.70, 443.81, ICD10: E11.51 - Controlled - Continue current medications - ALBUMIN/CREAT RATIO RND UR 3. Hyperlipidemia, unspecified hyperlipidemia type - ICD9: 272.4, ICD10: E78.5 - Control undetermined, due for labs - Continue current medications - LIPID PANEL BASIC 4. Essential hypertension - ICD9: 401.9, ICD10: I10 - Controlled - Continue current medications - Recommend home blood pressure monitoring, to bring results to next visit - Encouraged sodium restriction, DASH or Mediterranean diet 5. Chronic obstructive pulmonary disease with (acute) exacerbation (HCC) - ICD9: 491.21, ICD10: J44.1 stable 6. Chronic diastolic CHF (congestive heart failure) (HCC) - ICD9: 428.32, 428.0, ICD10: I50.32 stable 7. Acute on chronic respiratory failure with hypoxia (HCC) - ICD9: 518.84, 799.02, ICD10: J96.21 Stable Gabby De La Cruz APRN.CNP documented in this encounterOur Lady Of [facility]11-14-[facility] History of Present illness Narrative* Meghann Forman, OD - 06/10/2023 11:08 AM EST 1. Pseudophakia Patient doing well PO Will wait until left eye to finalize spec rx 2. Combined forms of age-related cataract of left eye Patient scheduled for surgery 07/08/23 Meghann Forman OD June 10, 2023 11:08 AM documented in this encounterOur Lady Of [facility]11-14-2023 Miscellaneous Notes* Telephone Encounter - Milad Kowalski LPN - 06/10/2023 9:28 AM EST Patient has been identified by name and date of : Yes Patient phones for refill(s): Requested Prescriptions Pending Prescriptions Disp Refills amLODIPine (NORVASC) 5 mg tablet 90 tablet 1 Sig: Take 1 tablet by mouth once daily. Date of last office visit in primary care: 05/23/2023 Date of next office visit in primary care: 06/13/2023 Last 2 Encounter Wt Readings: Date: Wt: 05/28/2023 82.1 kg (181 lb) 05/27/2023 82.2 kg (181 lb 3.2 oz) Previous labs/tests for medication: Blood Pressure: BUN (mg/dL) Date Value 05/01/2023 15 06/29/2021 16 Sodium (mmol/L) Date Value 05/01/2023 140 06/29/2021 139 Last 1 Encounter BP Readings: Date: BP: 05/28/2023 142/64 Please advise. Thank you. Milad Kowalski LPN. * Telephone Encounter - Sary Perez - 06/10/2023 9:19 AM EST Patient has been identified by name and date of : Yes Requested Prescriptions Pending Prescriptions Disp Refills amLODIPine (NORVASC) 5 mg tablet 90 tablet 1 Sig: Take 1 tablet by mouth once daily. RX INSTRUCTIONS: Patient took his last pill today Patient aware RX will be sent to pharmacy. No need to notify patient. Sary Perez documented in this encounterOur Lady Of [facility]10-31-[facility] Instructions* Patient Instructions* Alma Dhillon PA-C - 05/27/2023 3:44 PM EDT Consult to cerebrovascular Follow up with cardiology at [place] or through the [facility] Continue primidone 50mg twice daily Follow up with primary care for blood pressure, cholesterol and blood sugars Follow up with Dr. 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 Minimal tremor noted on exam and he doesnot feel medication needs to be adjusted. Will continue as previously prescribed. 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 Overall, gait has improved since time of last visit. Recommend continuing to work on HEP as previously obtained from PT. Continue to use assistive device when ambulating. G45.9 Transient cerebral ischemia, unspecified type R29.810 Facial weakness R29.898 Left arm weakness Z86.73 History of stroke Comment: Pt previously reporting multiple episodes of L facial heaviness and numbness. At time of appointment it has been roughly one year since he was last seen and he reports sx persist. Since episodes began he has had MRI of brain and CTA of head/neck. MRI unremarkable, however, severe narrowingof L cervical ICA noted, no significant intracranial stenosis. He was following with vascular medicine, however, last visit was roughly one year ago. Additionally, EEG was ordered at time of last appointment as pt reported hx of seizures. Testing ordered to rule out seizure as cause of persistent facial heaviness/weakness, however, EEG was not completed. New ordered entered today. Additionally, given recurrence of symptoms regularly over the past year, consult was placed to cerebrovascular for further evaluation and recommendations. In interim recommend continuing ASA, Plavix, and statin as previous prescribed. Continue BP and BG management and follow up with PCP. Continue to refrain from smoking. Discussed importance of calling 911 and immediately proceeding to ED if symptoms should recur. I47.1 SVT (supraventricular tachycardia) (HCC) I47.20 V-tach ([facility]) Comment: clinical research monitor previously ordered and completed for evaluation for arrhythmia after CVA. Results noting vtach/SVT and consult was previously placed for cardiology. He is uncertain if he hadcardiology follow up and new consult was placed today. He was encouraged to schedule after OV today. Office Visit on 02/13/23 CONSULT TO CARDIOLOGY CONSULT TO NEUROLOGY EPIL EEG ROUTINE Jocelyne Mcknight APRN.[employer] WORK[employer] CHIEF COMPLAINT: follow up HISTORY OF PRESENT ILLNESS: Kam Greenberg is a 72 year old male, There were no vitals taken for this visit. with a PMH significant for DM type 2, essential tremor, HLD, HTN, CABG, CHF, COPD, CKD, CVA, anxiety. Saw Jocelyne Mcknight CNP 02/13/23 for tremor, gait abnormality, and TIA. ON ASA, statin and plavix. Did not have EEG done. Balance had improved, not using cane, no falls. Tremor doing well on Primidone 50mg bid, no changes. Previously was following with vascular medicine and recommended fu and also consult to CV. Does not appear that he saw these providers. EEG was normal. Patient presents for follow-up, notes that he is doing well. Notes he has good and bad days. Is primarily seen for tremor, states that his tremor does get worse if he overexerts himself or if he is very stressed. Taking primidone 50 mg twice daily and doing well with this. Did discuss increasing this to possibly 3 times a day at last appointment but deferred. Notes that he does have some bad days, but is comfortable at the dose that he is at. No new symptoms with this. Patient still endorsing some weakness in his legs, this is chronic and unchanged. Reporting some chronic back pain as well that worsens with long periods of driving. Has seen a chiropractor in the past, is not currently going any physical therapy but stays active. States that his chronic pain in his low back is managed to primary care. Reports some short-term memory issues as well, but states this has been a chronic issue since his last stroke many years ago. 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 Still endorsing some left-sided facial weakness that is episodic but notes that overall it has improved since his last appointment in December. Was referred to cerebrovascular at last appointment but forgot and did not schedule his appointment. Is compliant with his aspirin, Plavix and statin medications. No sustained neurodeficits, notes that his episodes of facial weakness last anywhere from 20 to 25 seconds, but the one before his last one lasted exactly 32 seconds. No other new symptoms, symptoms are improved or stable. REVIEW OF SYSTEMS GENERAL:No weight loss, malaise or fevers. HEENT:Negative for frequent or significant headaches, No changes in hearing or vision, no nose bleeds or other nasal problems NECK:Negative for lumps, goiter, pain and significant neck swelling RESPIRATORY: Negative for cough, wheezing or shortness of breath. CARDIOVASCULAR: Negative for chest pain, leg swelling or palpitations. GASTROINTESTINAL: Negative for abdominal discomfort, blood in stools or black stools or change in bowel habits GENITOURINARY: No history of dysuria, frequency or incontinence MUSCULOSKELETAL: Negative for joint pain or swelling, back pain or muscle pain. NEUROLOGIC:Negative for focal numbness or weakness, headaches and dizziness or syncope, vision changes, speech/languag changes - EXCEPT that as per HPI above. SKIN:Negative for lesions, rash, and itching. PSYCHIATRIC: Negative for sleep disturbance, mood disorder and recent psychosocial stressors. HEMATOLOGIC/LYMPHATIC/IMMUNOLOGIC:Negative for prolonged bleeding, bruising easily or swollen nodes. ENDOCRINE: Negative for cold or heat intolerance, polyuria, polydipsia and goiter. The remainder of the ROS was reviewed and is negative. LAB/IMAGING: Those performed since patient's last visit have been reviewed. EEG 04/14/23 Impression: This EEG is within normal limits. No epileptiform discharges or EEG seizures were seen during this recording. MEDICATIONS: Blood-Glucose Meter monitoring kit^Glucose Meter of Choice - Kit - Dx: Other DM Code E11.49^Disp: 1Each^Rfl: 0 fluticasone (FLONASE) 50 mcg/actuation nasal spray^Use 1 [place] in each nostril two times a day.^Disp: 1 Each^Rfl: 3 qodjhkoevul-bzytnbvnf-wdgoqoaz (TRELEGY ELLIPTA) 100-62.5-25 mcg inhalation powder^Inhale 1 Puff asinstructed once daily.^Disp: 1 Each^Rfl: 5 keTORolac (ACULAR) 0.5 % ophthalmic solution^Use 1 Drop in the right eye four times daily. Please start 2 days prior to your surgical date^Disp: 5 mL^Rfl: 0 prednisoLONE acetate (PRED FORTE) 1 % ophthalmic suspension^Use 1 Drop in the right eye four times daily. Please start 2 days prior to your surgical date^Disp: 5 mL^Rfl: 1 moxifloxacin (VIGAMOX) 0.5 % ophthalmic solution^Use 1 Drop in the right eye four times daily. Please start 2 days prior to your surgical date^Disp: 3 mL^Rfl: 0 albuterol HFA (VENTOLIN HFA) 90 mcg/actuation inhaler^Inhale 2 Puffs as instructed every 4 hours asneeded for wheezing/shortness of breath.^Disp: 18 g^Rfl: 5 metoprolol tartrate, short acting, (LOPRESSOR) 50 mg tablet^Take 1 tablet by mouth twice daily.^Disp: 180 tablet^Rfl: 1 sertraline (ZOLOFT) 100 mg tablet^Take 1 tablet by mouth once daily.^Disp: 90 tablet^Rfl: 1 atorvastatin (LIPITOR) 40 mg tablet^Take 1 tablet by mouth daily at bedtime.^Disp: 90 tablet^Rfl: 1 primidone (MYSOLINE) 50 mg tablet^Take 1 tablet by mouth twice daily.^Disp: 180 tablet^Rfl: 1 clopidogrel (PLAVIX) 75 mg tablet^Take 1 tablet by mouth once daily.^Disp: 90 tablet^Rfl: 1 metFORMIN (GLUCOPHAGE) 500 mg tablet^Take 1 tablet by mouth twice daily with meals.^Disp: 180 tablet^Rfl: 1 blood sugar diagnostic (BLOOD GLUCOSE TEST) test strip^Test blood sugar(s) 2 times daily. Dx: OtherDM Code E11.41 Insulin: No^Disp: 100 Strip^Rfl: 5 amLODIPine (NORVASC) 5 mg tablet^Take 1 tablet by mouth once daily.^Disp: 90 tablet^Rfl: 1 saw/vit E/sod miguel/lyc/beta/pyg (PROSTATE HEALTH ORAL)^Take 3 tablets by mouth once daily.^Disp: ^Rfl: multivit with minerals/lutein (MULTI-ISABELLE 50 AND OVER ORAL)^Take 1 tablet by mouth once daily.^Disp: ^Rfl: nitroglycerin sublingual (NITROSTAT) 0.4 mg SL tablet^Dissolve 1 tablet under the tongue every 5 minutes as needed.^Disp: 30 tablet^Rfl: 1 aspirin, enteric coated (ADULT LOW DOSE ASPIRIN) 81 mg EC tablet^Take 1 tablet by mouth once daily.^Disp: ^Rfl: 0 furosemide (LASIX) 20 mg tablet^Take 1 tablet by mouth once daily.^Disp: 90 tablet^Rfl: 0 (Patient not taking: Reported on 05/23/2023) ipratropium-albuterol (DUONEB) 0.5 mg-3 mg(2.5 mg base)/3 mL nebu^Inhale 3 mL as instructed four times daily.^Disp: 90 mL^Rfl: 5 HISTORIES 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 11/06/2005 Degeneration of thoracolumbar intervertebral disc 11/06/2005 compression fractures Diabetes mellitus ([facility]) Dysmetabolic syndrome X Esophageal reflux Essential tremor 11/23/2015 Generalized osteoarthrosis, unspecified site 10/16/2005 Late effects of acute poliomyelitis 195 Late effects of CVA (cerebrovascular accident) 03/17/2007 Left arm weakness CO (myocardial infarction) ([facility]) 1999 Other and unspecified hyperlipidemia Peripheral vascular disease ([facility]) 11/06/2005 Polyneuropathy in diabetes(357.2) 11/07/2005 S/P CABG x 3 06/06/2015 S/P coronary artery stent placement 06/06/2015 ST elevation CO (STEMI) ([facility]) 03/2013 Stage 3a chronic kidney disease ([facility]) 04/17/2018 Stenosis of left carotid artery 04/03/2016 Unspecified chronic bronchitis (HCC) 06/07/2008 FAMILY HISTORY Problem Relation Age of Onset other (Brain Ca) Mother other (CVA) Father , aneurysm other (CO) Father other (Other) Brother natural causes. None Brother no information. None Brother Cancer Son , testicular ca SOCIAL HISTORY Social History Tobacco Use Smoking status: Former Packs/day: 1.00 Years: 52.00 Additional pack years: 0.00 Total pack years: 52.00 Types: Cigarettes Start date: 1967 Quit date: 12/11/2022 Years since quittin.4 Smokeless tobacco: Never Vaping Use Vaping Use: Never used Substance Use Topics Alcohol use: Not Currently Comment: rare NAB Drug use: No PHYSICAL EXAMINATION BP 165/64 Pulse 60 Resp 16 Wt 82.2 kg (181 lb 3.2 oz) SpO2 97% BMI 24.24 kg/m GENERAL EXAM: General appearance: NAD, pleasant. HEENT: NC/AT, nasal congestion absent, no oral lesions, membranes moist. NECK: No masses, supple. Lungs: Breathing comfortably Extr: Moves all extremities without difficulty Skin: Cool to touch. No rash. Psych: Frequently making jokes and has difficulty staying on subject NEUROLOGICAL EXAM: General: Awake, alert, oriented x3 (person,place,time), speech fluent, no dysarthria; comprehension, naming, repetition intact. Short and usp memory intact. CN: PERRL, EOMI and without nystagmus, VFF to confrontation, facial sensation and strength are normal and symmetric, hearing is intact to finger rub bilaterally, palate and tongue movements are intact and symmetric. SCM and trapezius strength normal. Motor: Normal tone, bulk and strength (5/5) bilaterally (throughout extremities x4). Reflexes: 1/4 in the lower extremities bilaterally, 2/2 in the upper extremities bilaterally Coordination: FNF intact. Intention tremor with bilateral upper extremities, worse on the left. Sensation: No evidence of neglect. Gait: Slowed gait with small foot steps, uses a cane to ambulate. Assessment and Plan: ASSESSMENT/PLAN: 1. Essential tremor - ICD9: 333.1, ICD10: G25.0 (primary diagnosis) Patient's tremor is stable, notes bad days where he overexerts himself or his increased stress which worsens his tremor. Noted to the bilateral upper extremities worse on the left. Currently compliant with his primidone 50 mg twice daily. Discussed increasing this to 3 times daily at last appointment the patient deferred, discussed this again today and patient still deferring. Does drink caffeinein the morning, discussed that this may increase his tremor as well and patient agrees and understands. No new symptoms with this, stable. 2. Osteoarthritis of lumbar spine, unspecified spinal osteoarthritis complication status - ICD9: 721.3, ICD10: M47.816 3. Abnormality of gait - ICD9: 781.2, ICD10: R26.9 No falls, chronic lumbar pain managed by primary care. Takes tramadol as needed. No significant worsening of weakness or symptoms. Gait is likely multifactorial due to history of CVA, lumbar disease and polio. 4. Facial weakness - ICD9: 781.94, ICD10: R29.810 5. Transient cerebral ischemia, unspecified type - ICD9: 435.9, ICD10: G45.9 6. History of stroke - ICD9: V12.54, ICD10: Z86.73 Patient was previously referred to cerebrovascular last appointment but has not made this appointment. Concern for periodic paresthesias and weakness of the face. Patient is currently taking Plavix and aspirin daily, is compliant with his statin medications and blood pressure medications. EEG was negative for any seizure-like activity. CTA of the head and neck did show severe narrowing of L cervical ICA noted, no significant intracranial stenosis and patient was referred to cerebrovascular to optimize therapy. Encourage patient to continue this consult and schedule his appointment today and he agrees. No new strokelike symptoms or deficits. 7. SVT (supraventricular tachycardia) - ICD9: 427.89, ICD10: I47.10 8. V-tach (HCC) - ICD9: 427.1, ICD10: I47.20 Patient was referred to cardiology at last appointment is unsure if he went. Did have a guest request runner at [place] but was discharged from his practice. Encouraged him to schedule this appointment as well today, no chest pain at this time. 9. History of CVA (cerebrovascular accident) - ICD9: V12.54, ICD10: Z86.73 10. Left arm weakness - ICD9: 729.89, ICD10: R29.898 Patient agreeable to treatment plan of care at this time, all questions were answered. No changes were made in his regimen today, patient continuing to take primidone 50 mg twice daily. Encouraged follow-up with your vascular and cardiology as previously discussed at last appointment. Discussed stroke prevention and conservative therapy for symptoms and patient agrees and understands. We will have patient follow-up in 3 to [address] Castillo or sooner if needed. Alma Dhillon PA-C I spent a total of 45 minutes on the date of the service which included preparing to see the patient, [id number] patient care, completing clinical documentation, obtaining and/or reviewing separately obtained history, performing a medically appropriate examination, and counseling and educating the patient/family/caregiver. This document has been created with the use of voice recognition technology. It may contain inaccuracies: (e.g. misspellings, inaccurate syntax or word sense) that have escaped review. documented in this encounterOur [facility] Instructions* Patient Instructions* Tabatha Jarrett MD - 05/07/2023 2:45 PM EDT Images from the original note were not included. documented in this encounterOur [facility] [place] History of Present illness Narrative* Tabatha Jarrett MD - 05/07/2023 2:41 PM EDT Assessment and Plan 1. Nuclear sclerosis of both eyes -s/p cataract extraction with intraocular lens implantation right eye 05/06/23 -looks good. Patient happy with outcome 2. Type 2 diabetes mellitus without retinopathy (HCC) -no diabetic retinopathy both eyes -followed by Dr. Forman 3. Refractive error -stable Plan: -Continue blood sugar and blood pressure control -drops per protocol -precautions -follow-up 1 week / sooner as needed I have confirmed and edited as necessary the relevant ophthalmic history, ROS, and the neuro exam findings as obtained by others. I have seen and examined Kam Greenberg. I have discussed the case and the management of this patient's care with the Resident/Fellow, if applicable. I also have reviewed and agree with the assessment and plan as stated above and agree withall of its relevant components. Tabatha Jarrett MD documented in this encounterOur [facility] [place] History of Past illness Narrative* Problem Noted Date Diagnosed Date Resolved Date Nuclear sclerosis of right eye 05/06/2023 05/06/2023 Lumbar spondylosis 11/13/2021 3 History of stroke 11/13/2021 01/15/2023 Lung nodule < 6cm on CT 10/17/20210 02/2022 Adhesive capsulitis of shoulder 10/19/2010 11/20/2011 Other acquired deformity of toe 03/23/2009 09/29/2017 Dermatophytosis of nail 03/23/200911/2017 Polyneuropathy in diabetes(357.2) 11/07/2005 11/22/2013 Peripheral vascular disease 11/06/2005 11/13/2020 Type II or unspecified type diabetes mellitus without mention of complication, uncontrolled 10/21/2005 11/22/2013 Dysmetabolic syndrome X 10/26 Esophageal reflux 09/29/2017 documented as of this encounter (statuses as of 05/07/2023) [facility] History of Past illness Narrative* Problem Noted Date Diagnosed Date Resolved Date Nuclear sclerosis of right eye 05/06/2023 05/06/2023 Lumbar spondylosis 11/13/2021 3 History of stroke 11/13/2021 01/15/2023 Lung nodule < 6cm on CT 10/17/2021 120 02/2022 Tobacco use disorder 05/25/2012 023 Adhesive capsulitis of shoulder 10/19/2010 11/20/2011 Other acquired deformity of toe 03/23/2009 09/29/2017 Dermatophytosis of nail 03/23/200911/2017 Polyneuropathy in diabetes(357.2) 11/07/2005 11/22/2013 Peripheral vascular disease 11/06/2005 11/13/2020 Type II or unspecified type diabetes mellitus without mention of complication, uncontrolled 10/21/2005 11/22/2013 Dysmetabolic syndrome X 10/26 Esophageal reflux 09/29/2017 documented as of this encounter (statuses as of 05/28/2023) [facility] History of Past illness Narrative* Problem Noted Date Diagnosed Date Resolved Date Nuclear sclerosis of right eye 05/06/2023 05/06/2023 Lumbar spondylosis 11/13/2021 History of stroke 11/13/2021 01/15/2023 Lung nodule < 6cm on CT 10/17/2021 120 02/2022 Tobacco use disorder 05/25/2012 023 Adhesive capsulitis of shoulder 10/19/2010 11/20/2011 Other acquired deformity of toe 03/23/2009 09/29/2017 Dermatophytosis of nail 03/23/200911/2017 Polyneuropathy in diabetes(357.2) 11/07/2005 11/22/2013 Peripheral vascular disease 11/06/2005 11/13/2020 Type II or unspecified type diabetes mellitus without mention of complication, uncontrolled 10/21/2005 11/22/2013 Dysmetabolic syndrome X 10/26 Esophageal reflux 09/29/2017 documented as of this encounter (statuses as of 06/10/2023) [facility] History of Past illness Narrative* Problem Noted Date Diagnosed Date Resolved Date Nuclear sclerosis of right eye 05/06/2023 05/06/2023 Lumbar spondylosis 11/13/2021 History of stroke 11/13/2021 01/15/2023 Lung nodule < 6cm on CT 10/17/20210 02/2022 Tobacco use disorder 05/25/2012 023 Adhesive capsulitis of shoulder 10/19/2010 11/20/2011 Other acquired deformity of toe 03/23/2009 09/29/2017 Dermatophytosis of nail 03/23/200911/2017 Polyneuropathy in diabetes(357.2) 11/07/2005 11/22/2013 Peripheral vascular disease 11/06/2005 11/13/2020 Type II or unspecified type diabetes mellitus without mention of complication, uncontrolled 10/21/2005 11/22/2013 Dysmetabolic syndrome X 041 09/2005 Esophageal reflux 09/29/2017 documented as of this encounter (statuses as of 06/11/2023) [facility] History of Past illness Narrative* Problem Noted Date Diagnosed Date Resolved Date Nuclear sclerosis of right eye 05/06/2023 05/06/2023 Lumbar spondylosis 11/13/2021 History of stroke 11/13/2021 01/15/2023 Lung nodule < 6cm on CT 10/17/2021 120 02/2022 Tobacco use disorder 05/25/2012 023 Adhesive capsulitis of shoulder 10/19/2010 11/20/2011 Other acquired deformity of toe 03/23/2009 09/29/2017 Dermatophytosis of nail 03/23/200911/2017 Polyneuropathy in diabetes(357.2) 11/07/2005 11/22/2013 Peripheral vascular disease 11/06/2005 11/13/2020 Type II or unspecified type diabetes mellitus without mention of complication, uncontrolled 10/21/2005 11/22/2013 Dysmetabolic syndrome X 10/26 Esophageal reflux 09/29/2017 documented as of this encounter (statuses as of 06/13/2023) [facility] History of Past illness Narrative* Problem Noted Date Diagnosed Date Resolved Date Nuclear sclerosis of right eye 05/06/2023 05/06/2023 Lumbar spondylosis 11/13/2021 History of stroke 11/13/2021 01/15/2023 Lung nodule < 6cm on CT 10/17/2021 120 02/2022 Tobacco use disorder 05/25/2012 023 Adhesive capsulitis of shoulder 10/19/2010 11/20/2011 Other acquired deformity of toe 03/23/2009 09/29/2017 Dermatophytosis of nail 03/23/200911/2017 Polyneuropathy in diabetes(357.2) 11/07/2005 11/22/2013 Peripheral vascular disease 11/06/2005 11/13/2020 Type II or unspecified type diabetes mellitus without mention of complication, uncontrolled 10/21/2005 11/22/2013 Dysmetabolic syndrome X 041 09/2005 Esophageal reflux 09/29/2017 documented as of this encounter (statuses as of 07/01/2023) [facility] History of Present illness Narrative* 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 Procedure: right eye phacoemulsification cataract implant intraocular lens w/o endoscopic cyclophotocoagulation Date of Procedure: 05/06/23 Surgeon: Tabatha Jarrett MD 1. Diabetes: Home blood sugar readings: does not check, last HgbA1c in the office 3 months ago was 7.0 Hypoglycemia: No He is compliant with medication(s) and is tolerating med(s) without any side effects. Patient's last HgA1C was Hemoglobin A1C (%) Date Value 07/04/2022 6.3 01/14/2022 6.4 04/12/2021 6.8 05/19/2020 6.4 Hemoglobin A1C (POCT) (%) Date Value 01/15/2023 7.0 2. Hypertension requiring medication: Yes Medication changes:No Taking all medications as prescribed: Yes Side effects: No Home BP's: No Last 3 Encounter BP Readings: Date: BP: 05/01/2023 136/60 02/25/2023 120/80 02/13/2023 118/64 3. Congestive Heart Failure: Yes, chronic diastolic. No recent exacerbations. Taking Lasix as prescribed. Edema is stable per patient. Denies significant weight gain, PND, orthopnea, chest pain, palpitations. 4. Current Smoker within 1 Year: Yes Quit smoking 12/11/22, smoked 1 PPD for the past 52 years 5. History of COPD: Yes. 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 Chronic respiratory failure with continues oxygen although he did not bring portable oxygen with him today. Current pulmonary medications are Trelegy. Frequency of albuterol nebulizer use is 2-3 times day. Recent exacerbations: YES admitted to [facility] October 2022. 6. History of DENNIS: No 7. Dialysis: No Review of Systems Constitutional: Negative for chills, fatigue, fever and unexpected weight change. HENT: Negative for trouble swallowing. Respiratory: Positive for cough and shortness of breath. Negative for wheezing. Cardiovascular: Positive for leg swelling. Negative for chest pain and palpitations. Gastrointestinal: Negative for abdominal pain, anal bleeding, blood in stool, constipation, diarrhea, nausea and vomiting. Endocrine: Negative for polydipsia, polyphagia and polyuria. Genitourinary: Negative for enuresis. Neurological: Negative for dizziness, tremors, seizures, syncope, weakness, light-headedness, numbness and headaches. 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 11/06/2005 Degeneration of thoracolumbar intervertebral disc 11/06/2005 compression fractures Diabetes mellitus ([facility]) Dysmetabolic syndrome X Esophageal reflux Essential tremor 11/23/2015 Generalized osteoarthrosis, unspecified site 10/16/2005 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 CVA (cerebrovascular accident) 03/17/2007 Left arm weakness CO (myocardial infarction) ([facility]) 1999 Other and unspecified hyperlipidemia Peripheral vascular disease ([facility]) 11/06/2005 Polyneuropathy in diabetes(357.2) 11/07/2005 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 Polio RPR 1ST INGUN HRNA AGE 6 YRS/> REDUCIBLE 1958 Hernia repair, inguinal, right TRANSCATH STENT INIT VESSEL,PERCUT MARKUS to SVG to RCA & MARKUS to SVG to OM ALLERGIES Lisinopril, Morphine, Oysters, and Tylenol [Acetaminophen] MEDICATIONS tkcnpujscsw-opfguzvjb-ucyigplw (TRELEGY ELLIPTA) 100-62.5-25 mcg inhalation powder Inhale 1 Puff asinstructed once daily. keTORolac (ACULAR) 0.5 % ophthalmic solution Use 1 Drop in the right eye four times daily. Please start 2 days prior to your surgical date prednisoLONE acetate (PRED FORTE) 1 % ophthalmic suspension Use 1 Drop in the right eye four times daily. Please start 2 days prior to your surgical date moxifloxacin (VIGAMOX) 0.5 % ophthalmic solution Use 1 Drop in the right eye four times daily. Please start 2 days prior to your surgical date albuterol HFA (VENTOLIN HFA) 90 mcg/actuation inhaler Inhale 2 Puffs as instructed every 4 hours asneeded for wheezing/shortness of breath. furosemide (LASIX) 20 mg tablet Take 1 tablet by mouth once daily. metoprolol tartrate, short acting, (LOPRESSOR) 50 mg tablet Take 1 tablet by mouth twice daily. sertraline (ZOLOFT) 100 mg tablet Take 1 tablet by mouth once daily. atorvastatin (LIPITOR) 40 mg tablet Take 1 tablet by mouth daily at bedtime. primidone (MYSOLINE) 50 mg tablet Take 1 tablet by mouth twice daily. Blood-Glucose Meter monitoring kit Glucose Meter of Choice - Kit - Dx: Other DM Code E11.49 metFORMIN (GLUCOPHAGE) 500 mg tablet Take 1 tablet by mouth twice daily with meals. blood sugar diagnostic (BLOOD GLUCOSE TEST) test strip Test blood sugar(s) 2 times daily. Dx: OtherDM Code E11.41 Insulin: No ipratropium-albuterol (DUONEB) 0.5 mg-3 mg(2.5 mg base)/3 mL nebu Inhale 3 mL as instructed four times daily. amLODIPine (NORVASC) 5 mg tablet Take 1 tablet by mouth once daily. saw/vit E/sod miguel/lyc/beta/pyg (PROSTATE HEALTH ORAL) Take 3 tablets by mouth once daily. multivit with minerals/lutein (MULTI-ISABELLE 50 AND OVER ORAL) Take 1 tablet by mouth once daily. nitroglycerin sublingual (NITROSTAT) 0.4 mg SL tablet Dissolve 1 tablet under the tongue every 5 minutes as needed. fluticasone (FLONASE) 50 mcg/actuation nasal spray Use 1 [place] in each nostril twice daily. aspirin, enteric coated (ADULT LOW DOSE ASPIRIN) 81 mg EC tablet Take 1 tablet by mouth once daily. clopidogrel (PLAVIX) 75 mg tablet Take 1 tablet by mouth once daily. FAMILY HISTORY Problem Relation Age of Onset other (Brain Ca) Mother other (CVA) Father , aneurysm other (CO) Father other (Other) Brother natural causes. None Brother no information. None Brother Cancer Son , testicular ca Social History Tobacco Use Smoking status: Former Packs/day: 1.00 Years: 52.00 Additional pack years: 0.00 Total pack years: 52.00 Types: Cigarettes Start date: 1967 Quit date: 12/11/2022 Years since quittin.3 Smokeless tobacco: Never Vaping Use Vaping Use: Never used Substance Use Topics Alcohol use: Not Currently Comment: rare NAB Drug use: No BP 148/64 Pulse 74 Ht 184.2 cm (6' 0.5) Wt 83 kg (182 lb 14.4 oz) SpO2 90% BMI 24.46 kg/m Physical Exam Vitals reviewed. Constitutional: General: He is not in acute distress. Appearance: He is not ill-appearing. HENT: Mouth/Throat: Mouth: Mucous membranes are moist. Pharynx: Oropharynx is clear. Eyes: Conjunctiva/sclera: Conjunctivae normal. Cardiovascular: Rate and Rhythm: Normal rate and regular rhythm. Pulses: Decreased pulses. Heart sounds: Normal heart sounds. No murmur heard. Pulmonary: Effort: Pulmonary effort is normal. Breath sounds: Decreased air movement present. No wheezing, rhonchi or rales. Musculoskeletal: Cervical back: Neck supple. Right lower leg: No edema. Left lower leg: No edema. Lymphadenopathy: Cervical: No cervical adenopathy. Upper Body: Right upper body: No supraclavicular adenopathy. Left upper body: No supraclavicular adenopathy. Skin: General: Skin is warm and dry. Neurological: Mental Status: He is alert. Psychiatric: Mood and Affect: Mood normal. Behavior: Behavior normal. Diagnoses/Plan 1. Pre-operative evaluation EKG with no significant changes from previous, no ischemia Check BMP, CBC and HgbA1c CAMAR[place] risk: Patient is scheduled for a low-risk procedure. The patient is medically stable for ophthalmologic procedure 2. Type 2 diabetes mellitus with diabetic peripheral angiopathy without gangrene, without long-termcurrent use of insulin (HCC) - ICD9: 250.70, 443.81, ICD10: E11.51 - Control undetermined, due for labs - Continue current medications 3. Essential hypertension - ICD9: 401.9, ICD10: I10 - Controlled - Continue current medications - Recommend home blood pressure monitoring, to bring results to next visit - Encouraged sodium restriction, DASH or Mediterranean diet 4. Chronic obstructive pulmonary disease with (acute) exacerbation (HCC) - ICD9: 491.21, ICD10: J44.1 Stable 5. Acute on chronic respiratory failure with hypoxia (HCC) - ICD9: 518.84, 799.02, ICD10: J96.21 Stable, compliant with oxygen 6. Chronic diastolic CHF (congestive heart failure) (HCC) - ICD9: 428.32, 428.0, ICD10: I50.32 - HFpEF 50+ - Compensated - Euvolemic - Continue current medications - Encouraged sodium restriction - Encouraged daily weights - Recommend regular aerobic exercise 7. Atherosclerosis of coronary artery of [place] heart without angina pectoris, unspecified vessel or lesion type - ICD9: 414.01, ICD10: I25.10 Stable. No use of nitro SL in years. 8. Encounter for immunization - ICD9: V03.89, ICD10: Z23 - INFLUENZA VACCINE, PRSV FREE, AGE 65+ YR, HIGH DOSE, QUADRIVALENT (FLUZONE HIGH-DOSE) - Myrio COVID-19 VACCINE (2022- SEASON) AGE 12+ YR Gabby De La Cruz APRN.CNP documented in this encounterOur [facility] [place] Miscellaneous Notes* Telephone Encounter - Hyacinth Alcala - 04/15/2023 2:11 PM EDT Called patient to see if he's had a pre op physical with his PCP rescheduled. No answer and unable to leave a message as voicemail has not been set up yet on either the home or mobile phone numbers. documented in this encounterOur Lady Of [facility] [place]08-01-2023 Instructions* Patient Instructions* Clark Rothman MD - 02/25/2023 1:28 PM EDT Start Trelegy Ellipta one inhalation once a day in the morning. Rinse your mouth out with water after use of inhaler documented in this encounterOur Lady Of [facility] [place]08-01-2023 History of Present illness Narrative* Clark Rothman MD - 02/25/2023 12:45 PM EDT Images from the original note were not included. . [facility] Note Patient name: Kam Greenberg PCP: Royce Carroll MD CC: COPD HPI: Kam Greenberg 72 year old male recent former 52 pack year smoker with PMH significant for COPD, DM, history of respiratory failure, CVA, HLD, PAD, CAD s/p CABG and stent, CKD 3 being sent forevaluation of chronic bronchitis. Admitted to [facility] in November with COPD exacerbation due to diastolic heart failure. Discharged on oxygen. Previously on Spiriva handihaler but stopped due to cost. Main respiratory symptom is ORTEGA. Denies wheezing. Occasional cough with phlegm but improved since stopped smoking. Patient appears to have some memory deficit from previous stroke reliability of his history is somewhat suspect. DME: [employer] 3 L DATA: PFT 11/2022: Review of pulmonary function test show severe obstruction with improvement in small airways obstruction postbronchodilator Labs: Component Ref Range & Units 1 mo ago NT Pro BNP <125 pg/mL 1,232 High Component Ref Range & Units 1 mo ago (12/30/22) WBC 3.70 - 11.00 k/uL 11.02 High RBC 4.20 - 6.00 m/uL 3.49 Low Hemoglobin 13.0 - 17.0 g/dL 11.2 Low Hematocrit 39.0 - 51.0 % 36.3 Low MCV 80.0 - 100.0 fL 104.0 High MCH 26.0 - 34.0 pg 32.1 MCHC 30.5 - 36.0 g/dL 30.9 RDW-CV 11.5 - 15.0 % 13.7 Platelet Count 150 - 400 k/uL 198 MPV 9.0 - 12.7 fL 10.0 Neutrophils % % 73.6 Abs Neut 1.45 - 7.50 k/uL 8.12 High Lymphocytes % % 14.8 Abs Lymph 1.00 - 4.00 k/uL 1.63 Monocytes % % 7.4 Abs [place] <0.87 k/uL 0.82 Eosinophils % % 3.4 Abs Eosin <0.46 k/uL 0.37 Basophils % % 0.4 Abs Baso <0.11 k/uL 0.04 Immature Granulocytes % % 0.4 Abs Immature Gran <0.10 k/uL 0.04 NRBC /100 WBC 0.0 Absolute nRBC <0.01 k/uL <0.01 Diff Type Auto Imaging / Diagnostic Studies: Echocardiogram 09/2021: CONCLUSIONS: - Technically difficult exam due to body habitus. - Exam indication: CAD - The left ventricle is normal in size. Left ventricular systolic function is normal. EF = 55 5% (visual est.) Grade I left ventricular diastolic dysfunction. - The right ventricle is normal in size. Right ventricular systolic function is low normal. - There are no significant valvular abnormalities. - Definity contrast could not be administered d/t unavailability of staff. - The patient has not had a prior CC echocardiographic exam for comparison. DATE OF EXAM: Oct 29 2022 2:58PM [facility] 0562 - CT LUNG SCREEN WO IVCON / EXAMINATION: CHEST CT WITHOUT CONTRAST (LOW-DOSE CT LUNG CANCER SCREENING PROTOCOL) COMPARISON: Chest CT dated 11/01/2021 RESULT: Are nodules present? Yes, 1-5 nodules Nodule 1: This Solid nodule is located in the Right Upper Lobe on slice number 157 with an average diameter of 3.0 mm (3.4 mm x 2.6 mm). This nodule is unchanged since 11/01/2021. Other lung nodule comments: Other findings: There is moderate severity upper lobe predominant centrilobular emphysema which is associated with bronchial wall thickening. Stable mild relatively symmetric biapical opacities, probably postinflammatory. Stable linear density in the anterior left upper lobe, image 79, likely atelectasis or scar. Dependent reticular opacities are most consistent with subsegmental atelectasis. Subpleural reticulation at the lung bases is unchanged, which may be secondary to smoking-related interstitial lung disease. No definite associated architectural distortion or traction bronchiectasis. Dependent debris in the trachea is most consistent with mucous/secretions. No suspicious endobronchiallesion. A subcarinal lymph node, image 104 of series 7 measuring 1.3 cm in short axis is stable in size since 11/01/2021, probably benign/reactive given stability. No new mediastinal lymphadenopathy.Mild atherosclerosis is present within the thoracic aorta which is normal in caliber. Moderate to severe [place] coronary artery atherosclerotic calcifications are present in this patient who is status post median sternotomy for CABG. There are likely coronary artery stents present. There is a smallhiatal hernia. Calcified gallstones are noted in the gallbladder. The imaged solid abdominal organs are unremarkable on this noncontrast exam. Moderate atherosclerosis of the imaged proximal abdominal aorta, which is nondilated. The sternum is well opposed by median sternotomy wires. No destructive lytic or blastic bone lesion. Multilevel degenerative changes are present throughout the thoracic spine. Emphysema: Moderate (25-50%), Centrilobular, Upper lobe Coronary Artery Calcifications: Circumflex Moderate; Left Anterior Descending Severe; Right Coronary Severe I personally reviewed the images which shows emphysema, basilar reticular markings and bronchial wall thickening consistent with chronic bronchitis 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 11/06/2005 Degeneration of thoracolumbar intervertebral disc 11/06/2005 compression fractures Diabetes mellitus ([facility]) Dysmetabolic syndrome X Esophageal reflux Essential tremor 11/23/2015 Generalized osteoarthrosis, unspecified site 10/16/2005 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 CVA (cerebrovascular accident) 03/17/2007 Left arm weakness CO (myocardial infarction) ([facility]) 1999 Other and unspecified hyperlipidemia Peripheral vascular disease ([facility]) 11/06/2005 Polyneuropathy in diabetes(357.2) 11/07/2005 S/P CABG x 3 06/06/2015 S/P coronary artery stent placement 06/06/2015 ST elevation CO (STEMI) ([facility]) 03/2013 Stage 3a chronic kidney disease ([facility]) 04/17/2018 Stenosis of left carotid artery 04/03/2016 Unspecified chronic bronchitis (HCC) 06/07/2008 ALLERGIES Allergen Reactions Lisinopril Angioedema Morphine Shortness of Breath rapid heart rate Oysters GI Upset Tylenol [Acetaminop* Dystonia flushed, cold sweats, shakey albuterol HFA (VENTOLIN HFA) 90 mcg/actuation inhaler Inhale 2 Puffs as instructed every 4 hours asneeded for wheezing/shortness of breath. jiywuzunhtb-sxinxcpdq-kpnuzdog (TRELEGY ELLIPTA) 100-62.5-25 mcg inhalation powder Inhale 1 Puff asinstructed once daily. keTORolac (ACULAR) 0.5 % ophthalmic solution Use 1 Drop in the right eye four times daily. Please start 2 days prior to your surgical date prednisoLONE acetate (PRED FORTE) 1 % ophthalmic suspension Use 1 Drop in the right eye four times daily. Please start 2 days prior to your surgical date moxifloxacin (VIGAMOX) 0.5 % ophthalmic solution Use 1 Drop in the right eye four times daily. Please start 2 days prior to your surgical date furosemide (LASIX) 20 mg tablet Take 1 tablet by mouth once daily. metoprolol tartrate, short acting, (LOPRESSOR) 50 mg tablet Take 1 tablet by mouth twice daily. sertraline (ZOLOFT) 100 mg tablet Take 1 tablet by mouth once daily. atorvastatin (LIPITOR) 40 mg tablet Take 1 tablet by mouth daily at bedtime. primidone (MYSOLINE) 50 mg tablet Take 1 tablet by mouth twice daily. clopidogrel (PLAVIX) 75 mg tablet Take 1 tablet by mouth once daily. Blood-Glucose Meter monitoring kit Glucose Meter of Choice - Kit - Dx: Other DM Code E11.49 metFORMIN (GLUCOPHAGE) 500 mg tablet Take 1 tablet by mouth twice daily with meals. blood sugar diagnostic (BLOOD GLUCOSE TEST) test strip Test blood sugar(s) 2 times daily. Dx: OtherDM Code E11.41 Insulin: No ipratropium-albuterol (DUONEB) 0.5 mg-3 mg(2.5 mg base)/3 mL nebu Inhale 3 mL as instructed four times daily. amLODIPine (NORVASC) 5 mg tablet Take 1 tablet by mouth once daily. saw/vit E/sod miguel/lyc/beta/pyg (PROSTATE HEALTH ORAL) Take 3 tablets by mouth once daily. multivit with minerals/lutein (MULTI-ISABELLE 50 AND OVER ORAL) Take 1 tablet by mouth once daily. nitroglycerin sublingual (NITROSTAT) 0.4 mg SL tablet Dissolve 1 tablet under the tongue every 5 minutes as needed. fluticasone (FLONASE) 50 mcg/actuation nasal spray Use 1 [place] in each nostril twice daily. aspirin, enteric coated (ADULT LOW DOSE ASPIRIN) 81 mg EC tablet Take 1 tablet by mouth once daily. Social History Tobacco Use Smoking status: Former Packs/day: 1.00 Years: 52.00 Total pack years: 52.00 Types: Cigarettes Start date: 1967 Quit date: 12/11/2022 Years since quittin.2 Smokeless tobacco: Never Vaping Use Vaping Use: Never used Substance Use Topics Alcohol use: Not Currently Comment: rare NAB Drug use: No Denies occupational exposures Pets: Dogs FAMILY HISTORY Problem Relation Age of Onset other (Brain Ca) Mother other (CVA) Father , aneurysm other (CO) Father other (Other) Brother natural causes. None Brother no information. None Brother Cancer Son , testicular ca PAST SURGICAL HISTORY Procedure Laterality Date CABG, ARTERIAL, THREE 1999 CABG x3 PAST SURGICAL HISTORY OF 1964 Ankle and Feet surgeries d.t. Polio RPR 1ST INGUN HRNA AGE 6 YRS/> REDUCIBLE 8 Hernia repair, inguinal, right TRANSCATH STENT INIT VESSEL,PERCUT MARKUS to SVG to RCA & MARKUS to SVG to OM PMH, Social history, family history and surgical history reviewed and updated in EMR REVIEW OF SYSTEMS: CONSTITUTIONAL: No fevers, chills, nightsweats, unintended weight loss HEENT: Denies nasal congestion/sinus symptoms, problematic allergy problems. EYES: Needs cataract surgery CARDIOVASCULAR: No chest pain, palpitations, orthopnea, PND. Mild edema PULM: See HPI GI: No dysphagia/odynophagia, problematic reflux. Gallstones. : No urinary complaints, including dysuria, gross hematuria or pyuria. NEURO: Late effects of previous stroke MUSC-SKEL: No joint pain, swelling, or erythema. PSY: No concerns regarding depression, anxiety INTEGUMENTARY: Easy bruising, slow to heal PHYSICAL EXAMINATION: BP 120/80 Pulse 64 Resp 15 Wt 180 lb (81.6kg) SpO2 90[3 L]% General Appearance: Elderly male, NAD. Skin: Skin color, texture, turgor normal, no suspicious rashes or lesions. Ecchymoses Head: Normocephalic, no masses, lesions, tenderness or abnormalities. Eyes: Sclera, conjunctiva normal. Oropharynx: Upper plate, no lesions. Neck: No JVD, no masses, no thyromegaly. Lungs: Mild tachypnea, no accessory muscle usage, diminished breath sounds. Heart: Regular rate and rhythm, no murmurs gallops. Extremities: Mild edema, no clubbing. Neurologic: Alert and oriented, short-term memory deficit, ambulates with a cane. Lymph Nodes: No cervical lymphadenopathy and No supraclavicular lymphadenopathy. Assessment/Plan: 1. Severe COPD, GOLD stage 3 -Continue abstinence from tobacco -Started Trelegy Ellipta -Continue Duoneb or albuterol as needed 2. Chronic hypoxemic respiratory failure -Patient is compliant with use of supplemental oxygen 3. Former cigarette smoker -Former 50 pack year smoker with sequelae of severe COPD -Continue abstinence -Enrolled in lung cancer screening program Clark Rothman MD [facility] documented in this encounterOur [facility] Of [facility] [place]07-26-[facility]23 Instructions* Patient Instructions* Tabatha Jarrett MD - 02/19/2023 5:16 PM EDT Images from the original note were not included. Pre-Op Instructions for patients of Dr. Tabatha Jarrett 2 days prior to surgery start: Prednisolone acetate-use one drop four times a day in operative eye Moxifloxacin/Polytrim- use one drop four times each day in operative eye Ketorolac - use one drop four times each day in operative eye You may use the drops in any order, but close your eye for 5 minutes after each drop. Continue to use any previous eye drops unless instructed otherwise. Day of Surgery: Do not eat or drink anything 8 hours prior to procedure time. Take all of your morning medication with only enough water to swallow them unless instructed otherwise by Dr. Jarrett or Primary Care physician. Get one drop of Moxifloxacin and Ketorolac in the operative eye prior to arriving at the surgery center. After your surgery: Do not remove your eye shield at home, except to instill your medication eye drops. Your eye shieldwill be removed in the office the following day. No heavy lifting or bending from the waist. Limit your activity. Avoid bumping or rubbing the operative eye. You will be given instructions in the surgery center about starting the three eyedrops after surgery. Call the office if you have any questions or concerns at , option 1. If the call is after business hours you will automatically connect with the answering service and they will contact your doctor as needed documented in this encounterOur Lady Of [facility] [place]07-26-2023 History of Present illness Narrative* Tabatha Jarrett MD - 02/19/2023 5:10 PM EDT Assessment and Plan 1. Nuclear sclerosis of both eyes Cataract Presurgical Documentation Cataract: Right eye (OD) Current Visual Acuity Right Eye Distance CC 20/100 Left Eye Distance CC 20/30 Best Corrected Vision Right Eye 20/80 Best Corrected Vision Left Eye 20/25- Glare Testing: Visual Function: Kam Greenberg states that the decline in vision from the cataract impedes his abilities as listed in the HPI, as well as other activities of daily living. Kam Greenberg has confirmed that he is no longer able to function adequately on a day-to-day basis because of his current visual condition. Further, it is my medical opinion that the cataract is the primary cause, or at least a significantly contributory cause of his visual dysfunction. With uncomplicated cataract surgery and lens implantation, it is my expectation that his visual function and quality of life will improve, significantly. The risks, benefits, alternatives, personnel and complications of cataract surgery with lens implantation were discussed with Kam Greenberg in detail. he appeared to understand and asked that I proceed with plans for surgery. 2. Type 2 diabetes mellitus without retinopathy (HCC) -no diabetic retinopathy both eyes -followed by Dr. Forman 3. Refractive error -stable Plan: -Continue blood sugar and blood pressure control Cataract: Right eye (OD) Aim -0.25 [id number] power +18.5 Flomax N Diabetes Y Glaucoma N Astigmatism N Pentacam Refractive surgery N Fuchs N Trypan blue N Malyugin ring N - unlikely Other N/A I have confirmed and edited as necessary the relevant ophthalmic history, ROS, and the neuro exam findings as obtained by others. I have seen and examined Kam Greenberg. I have discussed the case and the management of this patient's care with the Resident/Fellow, if applicable. I also have reviewed and agree with the assessment and plan as stated above and agree withall of its relevant components. Tabatha Jarrett MD February 19, 2023 5:10 PM documented in this encounterOur Lady Of [facility] [place]07-20-2023 Instructions* Patient Instructions* Jocelyne Mcknight APRN.CNP - 02/13/2023 4:44 PM EDT Complete EEG. Schedule follow up with Dr. Limon (vascular medicine). Schedule with cardiology. Schedule with cerebrovascular neurology (stroke specialist). Continue primidone 50mg twice daily. documented in this encounterOur Lady Of [facility] [place]07-20-2023 History of Present illness Narrative* Jocelyne Mcknight APRN.CNP - 02/13/2023 4:30 PM EDT Images from the original note were not included. [facility] Follow-up Visit Follow-up note February 13, 2023 HPI: Mr. Greenberg presents today for a follow-up visit. Per his previous visit on 02/21/22: G25.0 Essential tremor (primary encounter diagnosis) Comment: Currently on primidone 50mg BID for management of tremor. Exam slightly improved as no tremor was noted with arms outstretched and no tremor at rest. He reports no concerns regarding medication. Will continue as previously prescribed. 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 Consult placed to physical therapy at timeof previous appointment. He did go for initial evaluation where recommendation was made to utilize walker rather than cane, however, he has not returned. He continues to use his cane at the time of appointment today. Recommend returning to physical therapy for further work on balance and stability. G45.9 Transient cerebral ischemia, unspecified type R29.810 Facial weakness R29.898 Left arm weakness Z86.73 History of stroke Comment: Pt previously reporting multiple episodes of L facial heaviness and numbness since July. Episodes lasting one minute to ten minutes and associated with L arm weakness. Since his time of his previous appointment he reports that symptoms have recurred with most recent episode happening yesterday and involving left facial weakness for fifteen seconds. He is uncertain how many times sincehis previous appointment this has occurred. Of note, since episodes began he has had MRI of brain and CTA of head/neck. MRI unremarkable, however, severe narrowing of L cervical ICA noted, no significant intracranial stenosis. He has been following with vascular surgery regularly; last appointment on 02/19. He remains on ASA, Plavix, and statin. Also wore outpatient media monitor which noted onerun of vtach and three episodes of SVT. Appt with cardiology scheduled for April. As episodes continue to occur despite compliance with medications and without significant intracranial findings, concern for alternative etiology. On discussion pt reports hx of seizures and at this time will order EEG to evaluate for possible seizure activity contributing to symptoms. In interim recommend continuing ASA, Plavix, and statin as previous prescribed. Continue BP and BG management and follow up withPCP. Encouraged smoking cessation. Discussed importance of calling 911 and immediately proceeding to ED if symptoms should recur. If episodes continue to occur may consider consult to cerebrovascular. Last seen by me one year ago. Spent a week in the hospital. Had pneumonia. Now using O2 when he is walking. Had a nurse come to the house after. Unsure if he had PT. Quit smoking three days prior to going into the hospital. Sometimes has L facial heaviness. Longest this last was 42 seconds. Lately about an hour after thishappens can have a cramp in his hand. Will have to rub his hand. Feels like face is being pulled down. States the corner of his mouth just barely looked different in the mirror. No associated weakness. Did not talk when this occurred so unsure if slurred or garbled. Still taking ASA and Plavix. No a ssociated headache. Did not have EEG done. States he had an EEG when he was young after he had Polio. Balance is better. Not using his cane in the house but uses it outside of the house. No falls. Tremor is pretty good most of the time. States they are no where near as severe as they used to be. Occasional muscle spasm. States this has been for years. Taking primidone 50mg BID without SE. Unsure if he saw cardiology. Still taking Lipitor. Following with his PCP for blood sugar and BP. States sometimes he will miss his morning medications because he wakes at 3pm. Had eye exam recently; needs cataract surgery. 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 11/06/2005 Degeneration of thoracolumbar intervertebral disc 11/06/2005 compression fractures Diabetes mellitus ([facility]) Dysmetabolic syndrome X Esophageal reflux Essential tremor 11/23/2015 Generalized osteoarthrosis, unspecified site 10/16/2005 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 CVA (cerebrovascular accident) 03/17/2007 Left arm weakness CO (myocardial infarction) ([facility]) 1999 Other and unspecified hyperlipidemia Peripheral vascular disease ([facility]) 11/06/2005 Polyneuropathy in diabetes(357.2) 11/07/2005 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 Polio RPR 1ST INGUN HRNA AGE 6 YRS/> REDUCIBLE 1957 Hernia repair, inguinal, right TRANSCATH STENT INIT VESSEL,PERCUT MARKUS to SVG to RCA & MARKUS to SVG to OM Current Outpatient Medications on File Prior to Visit Medication Sig albuterol HFA (VENTOLIN HFA) 90 mcg/actuation inhaler Inhale 2 Puffs as instructed every 4 hours asneeded for wheezing/shortness of breath. furosemide (LASIX) 20 mg tablet Take 1 tablet by mouth once daily. metoprolol tartrate, short acting, (LOPRESSOR) 50 mg tablet Take 1 tablet by mouth twice daily. sertraline (ZOLOFT) 100 mg tablet Take 1 tablet by mouth once daily. atorvastatin (LIPITOR) 40 mg tablet Take 1 tablet by mouth daily at bedtime. primidone (MYSOLINE) 50 mg tablet Take 1 tablet by mouth twice daily. clopidogrel (PLAVIX) 75 mg tablet Take 1 tablet by mouth once daily. Blood-Glucose Meter monitoring kit Glucose Meter of Choice - Kit - Dx: Other DM Code E11.49 metFORMIN (GLUCOPHAGE) 500 mg tablet Take 1 tablet by mouth twice daily with meals. blood sugar diagnostic (BLOOD GLUCOSE TEST) test strip Test blood sugar(s) 2 times daily. Dx: OtherDM Code E11.41 Insulin: No ipratropium-albuterol (DUONEB) 0.5 mg-3 mg(2.5 mg base)/3 mL nebu Inhale 3 mL as instructed four times daily. amLODIPine (NORVASC) 5 mg tablet Take 1 tablet by mouth once daily. saw/vit E/sod miguel/lyc/beta/pyg (PROSTATE HEALTH ORAL) Take 3 tablets by mouth once daily. multivit with minerals/lutein (MULTI-ISABELLE 50 AND OVER ORAL) Take 1 tablet by mouth once daily. nitroglycerin sublingual (NITROSTAT) 0.4 mg SL tablet Dissolve 1 tablet under the tongue every 5 minutes as needed. fluticasone (FLONASE) 50 mcg/actuation nasal spray Use 1 [place] in each nostril twice daily. aspirin, enteric coated (ADULT LOW DOSE ASPIRIN) 81 mg EC tablet Take 1 tablet by mouth once daily. No current facility-administered medications on file prior to visit. Social History Tobacco Use Smoking status: Former Packs/day: 1.00 Years: 52.00 Total pack years: 52.00 Types: Cigarettes Start date: 1967 Quit date: 12/11/2022 Years since quittin.1 Smokeless tobacco: Never Vaping Use Vaping Use: Never used Substance Use Topics Alcohol use: Not Currently Comment: rare NAB Drug use: No ALLERGIES Allergen Reactions Lisinopril Angioedema Morphine Shortness of Breath rapid heart rate Oysters GI Upset Tylenol [Acetaminop* Dystonia flushed, cold sweats, shakey Review of Systems: Cardiopulmonary: denies chest pain, palpitations Respiratory: + shortness of breath GI/: denies recent nausea, vomiting, diarrhea, constipation, incontinence Musculoskeletal: denies + weakness Back/spine: denies + low back or cervical pains Neuro: denies + tremors, loss of feeling, + dizziness, seizure, blackout, paresthesia, facial paresthesia, facial weakness, + difficulty in speech (occasionally mixes up first letter of words), slurring of words, dysarthria, dysphagia, + memory loss, + headache (occasional L), vision changes, loss of hearing Physical Exam: 02/13/23 1628 BP: 118/64 Pulse: 80 Resp: 20 SpO2: 99% Weight: 80.5 kg (177 lb 6.4 oz) Patient is alert and in no distress. Dress is appropriate. Mood is appropriate Breathing appears regular and unstressed Neurologic examination: No formal MMSE performed. CN: Pupils equal and reactive to light, extraocular movements intact with no nystagmus, face is symmetric with no facial droop, hearing decreased on L, tongue is midline with no deviation, shoulder shrug is symmetric. Motor exam shows 5/5 strength symmetric through the upper and lower extremities in all groups tested except for LUE and LLE which is 4+/5. Sensory intact to light touch in all extremities. Deep tendon reflexes are diminished symmetrically at the biceps, brachioradialis, triceps, patella,and achilles bilaterally. Coordination: No dysmetria on finger to nose. No tremor noted with arms outstretched. No tremor noted at rest. No drift seen. Gait unstable without use of cane; slightly unsteady while turning. Arm swing slightly decreased onL. Labs/studies: Outpatient media monitor 11/09/21: Patient had a min HR of 51 bpm, max HR of 150 bpm, and avg HR of 74 bpm. Predominant underlying rhythm was Sinus Rhythm. 1 run of Ventricular Tachycardia occurred lasting 4 beats with a max rate of 150 bpm (avg 126 bpm). 3 Supraventricular Tachycardia runs occurred, the run with the fastest interval lasting 14 beats with a max rate of 118 bpm (avg 107 bpm); the run with the fastest interval was also the longest. Isolated SVEs were rare (<1.0%), SVE Couplets were rare (<1.0%), and SVE Triplets were rare (<1.0%). Isolated VEs were rare (<1.0%), and no VE Couplets or VE Triplets were present. Ventricular Bigeminy was present. Inverted QRS complexes possibly due to inverted placement of device. Carotid US 10/31/21: RIGHT SIDE Common carotid artery: Plaque visualized without evidence of hemodynamically significant stenosis. Internal carotid artery: 20-39% stenosis. Vertebral artery: Patent and antegrade flow noted. Subclavian artery: Plaque visualized without evidence of hemodynamically significant stenosis. LEFT SIDE Common carotid artery: Plaque visualized without evidence of hemodynamically significant stenosis. Internal carotid artery: 60-79% stenosis. External carotid artery: Elevated velocities and plaque noted. Vertebral artery: Patent and antegrade flow noted. Echo 10/12/21: CONCLUSIONS: - Technically difficult exam due to body habitus. - Exam indication: CAD - The left ventricle is normal in size. Left ventricular systolic function is normal. EF = 55 5% (visual est.) Grade I left ventricular diastolic dysfunction. - The right ventricle is normal in size. Right ventricular systolic function is low normal. - There are no significant valvular abnormalities. - Definity contrast could not be administered d/t unavailability of staff. - The patient has not had a prior CC echocardiographic exam for comparison. CTA Head/Neck W 10/15/21: Previously Reviewed: Atherosclerotic disease with severe narrowing of the proximal left cervical ICA. Patent intracranial arterial circulation. Right lung nodule. Suggest follow-up chest CT. Incidental Finding: Follow-up Acuity: Incidental Finding: Solid: <6 mm (solitary or multiple) Routing Code: N/A Recommendation: No imaging follow-up is recommended Time Frame: N/A Comments: If there are risk factors for lung malignancy, a follow-up chest CT exam could be obtained in 12 months MRI Report MRI BRAIN WO IVCON Exam End: 10/22/2021 10:33 AM (Final result) Narrative: * * *Final Report* * * DATE OF EXAM: Oct 22 2021 10:33AM WR [id number] - MRI BRAIN WO IVCON / PROCEDURE REASON: Transient cerebral ischemia, unspecified type * * * * Physician Interpretation * * * * EXAMINATION: MRI BRAIN WO IVCON CLINICAL HISTORY: TIA. TECHNIQUE: Routine noncontrast MRI protocol including diffusion images. MQ: [id number] COMPARISON: 11/28/2006 RESULT: Acute Change: There is no evidence of restricted diffusion to suggest an acute infarct. Hemorrhage: No evidence of prior parenchymal hemorrhage on the gradient echo images. Mass Lesion/ Mass Effect: No evidence of an intracranial mass or extra-axial fluid collection. No significant mass effect. Chronic Change: Scattered small patchy foci of hyperintensity are again noted in the supratentorial white matter on FLAIR and T2 which are nonspecific but likely represent mild chronic microvascular ischemia in view of the patient's chronologic age. Mild interval progression since 2006. Parenchyma: Mild generalized parenchymal volume loss which has mildly progressed since 2006. The brain parenchyma is otherwise within normal limits of signal intensity and morphology. Ventricles: Mild enlargement of the lateral and third ventricles commensurate with volume loss. Fourth ventricle remains within normal limits of size. Skull Base: Hypothalamic and pituitary region are grossly normal. Craniocervical junction is normal. No significant marrow replacement process. Vasculature: Major intracranial arterial structures, and dural venous sinuses show typical flow void, suggesting patency by spin echo criteria. Other: The visualized paranasal sinuses and mastoid air cells are clear. The orbits and extracranial soft tissues are unremarkable. Impression: IMPRESSION: Mild progression of generalized parenchymal volume loss and mild chronic supratentorial microvascular ischemic changes. Otherwise stable appearance of the brain. No evidence of acute intracranial process. Lumber Sticker: [facility]ITAL[facility] Transcribe Date/Time: Oct 22 2021 11:47A Dictated by : SHADE VILLARREAL MD This examination was interpreted and the report reviewed and electronically signed by: SHADE VILLARREAL MD on Oct 22 2021 11:50AM EST Complete Results Component Latest Ref Rng & Units 06/29/2021 Glucose 74 - 99 mg/dL 111 (H) BUN 9 - 24 mg/dL 16 Creatinine 0.73 - 1.22 mg/dL 1.26 (H) Sodium 136 - 144 mmol/L 139 Potassium 3.7 - 5.1 mmol/L 4.8 Chloride 97 - 105 mmol/L 101 CO2 22 - 30 mmol/L 29 Anion Gap 9 - 18 mmol/L 9 Calcium 8.5 - 10.2 mg/dL 9.6 eGFR- >60 eGFR-All Other Races . 57 WBC 3.70 - 11.00 k/uL 10.62 RBC 4.20 - 6.00 m/uL 4.23 Hemoglobin 13.0 - 17.0 g/dL 13.6 Hematocrit 39.0 - 51.0 % 42.6 MCV 80.0 - 100.0 fL 100.7 (H) MCH 26.0 - 34.0 pG 32.2 MCHC 30.5 - 36.0 g/dL 31.9 RDW-CV 11.5 - 15.0 % 13.1 Platelet Count 150 - 400 k/uL 272 MPV 9.0 - 12.7 fL 10.1 Absolute nRBC <0.01 k/uL <0.01 Component Latest Ref Rng & Units 05/19/2020 08/18/2020 WBC 3.70 - 11.00 k/uL 9.81 RBC 4.20 - 6.00 m/uL 4.08 (L) Hemoglobin 13.0 - 17.0 g/dL 13.1 Hematocrit 39.0 - 51.0 % 40.2 MCV 80.0 - 100.0 fL 98.5 MCH 26.0 - 34.0 pG 32.1 MCHC 30.5 - 36.0 g/dL 32.6 RDW-CV 11.5 - 15.0 % 12.6 Platelet Count 150 - 400 k/uL 252 MPV 9.0 - 12.7 fL 10.0 Neut% % 56.2 Abs Neut (ANC) 1.45 - 7.50 k/uL 5.49 Lymph% % 32.9 Abs Lymph 1.00 - 4.00 k/uL 3.23 Appling% % 6.9 Abs [place] <0.87 k/uL 0.68 Eosin% % 3.4 Abs Eosin <0.46 k/uL 0.33 Baso% % 0.6 Abs Baso <0.11 k/uL 0.06 Nucleated Reds 0 /100 WBC 0.0 Absolute nRBC <0.01 k/uL <0.01 Diff Type Auto Diff Protein, Total 6.3 - 8.0 g/dL 7.3 Albumin 3.9 - 4.9 g/dL 4.4 Calcium 8.5 - 10.2 mg/dL 9.9 Bilirubin, Total 0.2 - 1.3 mg/dL 0.3 Alkaline Phosphatase 38 - 113 U/L 107 AST 14 - 40 U/L 16 Glucose 74 - 99 mg/dL 108 (H) BUN 9 - 24 mg/dL 21 Creatinine 0.73 - 1.22 mg/dL 1.19 Sodium 136 - 144 mmol/L 137 Potassium 3.7 - 5.1 mmol/L 4.6 Chloride 97 - 105 mmol/L 102 CO2 22 - 30 mmol/L 24 Anion Gap 9 - 18 mmol/L 11 ALT 10 - 54 U/L <5 (L) eGFR- >60 eGFR-All Other Races . >60 TSH 0.270 - 4.200 uU/mL 1.110 Assessment/Plan: G25.0 Essential tremor (primary encounter diagnosis) Comment: Currently managed with use of primidone 50mg BID. Minimal tremor noted on exam and he doesnot feel medication needs to be adjusted. Will continue as previously prescribed. 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 Overall, gait has improved since time of last visit. Recommend continuing to work on HEP as previously obtained from PT. Continue to use assistive device when ambulating. G45.9 Transient cerebral ischemia, unspecified type R29.810 Facial weakness R29.898 Left arm weakness Z86.73 History of stroke Comment: Pt previously reporting multiple episodes of L facial heaviness and numbness. At time of appointment it has been roughly one year since he was last seen and he reports sx persist. Since episodes began he has had MRI of brain and CTA of head/neck. MRI unremarkable, however, severe narrowingof L cervical ICA noted, no significant intracranial stenosis. He was following with vascular medicine, however, last visit was roughly one year ago. Additionally, EEG was ordered at time of last appointment as pt reported hx of seizures. Testing ordered to rule out seizure as cause of persistent facial heaviness/weakness, however, EEG was not completed. New ordered entered today. Additionally, given recurrence of symptoms regularly over the past year, consult was placed to cerebrovascular for further evaluation and recommendations. In interim recommend continuing ASA, Plavix, and statin as previous prescribed. Continue BP and BG management and follow up with PCP. Continue to refrain from smoking. Discussed importance of calling 911 and immediately proceeding to ED if symptoms should recur. I47.1 SVT (supraventricular tachycardia) (HCC) I47.20 V-tach (HCC) Comment: clinical research monitor previously ordered and completed for evaluation for arrhythmia after CVA. Results noting vtach/SVT and consult was previously placed for cardiology. He is uncertain if he hadcardiology follow up and new consult was placed today. He was encouraged to schedule after OV today. Office Visit on 02/13/23 CONSULT TO CARDIOLOGY CONSULT TO NEUROLOGY EPIL EEG ROUTINE Jocelyne Mcknight APRN.JULIO I spent a total of 40 minutes on the date of the service which included preparing to see the patient, [id number] patient care, completing clinical documentation, obtaining and/or reviewing separately obtained history, performing a medically appropriate examination, counseling and educating the pat ient/family/caregiver, and ordering medications, tests, or procedures. documented in this encounterOur [facility] History of Present illness Narrative* Meghann Forman, OD - 02/03/2023 1:57 PM EDT 1. Type 2 diabetes mellitus without retinopathy (HCC) Risk of diabetic changes and vision loss can be minimized by tight control of blood sugar, blood pressure, and cholesterol levels. Educated patient to continue care with primary care doctor and/or internet and e business project manager to maintain optimum levels as they are important to avoid ocular complications. Encouraged patient to call the office immediately with any changes to vision or visual concerns. Advised to not wait until the next scheduled exam. 2. Nuclear sclerosis of both eyes OD> OS BCVA: 20/60, worse post dilation with refraction (20/80) 3. Refractive error Continue with current glasses for now due to possibility of surgery right eye Follow-up with Dr. Jarrett for cat eval right eye Meghann Forman, OD February 03, 2023 1:57 PM documented in this encounterOur [facility] Of [facility] [place]06-21-[facility] History of Present illness Narrative* Royce Carroll MD - 01/15/2023 4:11 PM EDT This note was created using [employer]. Subjective Kam Greenberg is a 72 year old male here for follow up with his . He was doing better since admission last month for COPD exacerbation and hypoxic respiratory failure, and he was now on home oxygen. He was also on furosemide for edema and diastolic CHF. Review of Systems Constitutional: Negative for fever. HENT: Negative. Respiratory: Positive for shortness of breath. Negative for cough and wheezing. Cardiovascular: Negative for chest pain, palpitations and leg swelling. Gastrointestinal: Negative for abdominal pain. Genitourinary: Negative for difficulty urinating and dysuria. Musculoskeletal: Negative for arthralgias. Neurological: Negative for headaches. ACTIVE PROBLEM LIST Hyperlipemia Coronary Atherosclerosis Generalized Osteoarthrosis, Unspecified Site Degeneration of Thoracolumbar Intervertebral Disc Essential Hypertension Late Effects of Cva (Cerebrovascular Accident) Unspecified Chronic Bronchitis (Hcc) Type 2 Diabetes Mellitus With Diabetic Mononeuropathy, Without Long-Term Current Use of Insulin ([facility]) Tobacco Use Disorder Rhinitis Anxiety Disorder S/P Coronary Artery Stent Placement S/P Cabg X 3 Essential Tremor Stenosis of Left Carotid Artery Stage 3a Chronic Kidney Disease (Hcc) Type 2 Diabetes Mellitus With Diabetic Peripheral Angiopathy Without Gangrene, Without Long-Term Current Use of Insulin (Hcc) At Risk for Falls Abnormality of Gait Lumbar Spondylosis History of Stroke Social History Tobacco Use Smoking status: Former Packs/day: 1.00 Years: 52.00 Pack years: 52.00 Types: Cigarettes Start date: 1967 Quit date: 12/11/2022 Years since quittin.0 Smokeless tobacco: Never Vaping Use Vaping Use: Never used Substance Use Topics Alcohol use: Not Currently Comment: rare NAB Drug use: No Current Outpatient Medications Medication Sig ipratropium-albuterol (DUONEB) 0.5 mg-3 mg(2.5 mg base)/3 mL nebu Inhale 3 mL as instructed four times daily. furosemide (LASIX) 20 mg tablet Take 1 tablet by mouth once daily. metFORMIN (GLUCOPHAGE) 1,000 mg tablet Take 1 tablet by mouth twice daily. metoprolol tartrate, short acting, (LOPRESSOR) 50 mg tablet Take 1 tablet by mouth twice daily. sertraline (ZOLOFT) 100 mg tablet Take 1 tablet by mouth once daily. atorvastatin (LIPITOR) 40 mg tablet Take 1 tablet by mouth daily at bedtime. primidone (MYSOLINE) 50 mg tablet TAKE 1 TABLET BY MOUTH TWICE A DAY clopidogrel (PLAVIX) 75 mg tablet TAKE 1 TABLET BY MOUTH EVERY DAY amLODIPine (NORVASC) 5 mg tablet Take 1 tablet by mouth once daily. albuterol HFA (VENTOLIN HFA) 90 mcg/actuation inhaler Inhale 2 Puffs as instructed every 4 hours asneeded for wheezing/shortness of breath. blood sugar diagnostic (BLOOD GLUCOSE TEST) test strip Check blood glucose once daily. Dx: E11.40. Non-Insulin dependent. saw/vit E/sod miguel/lyc/beta/pyg (PROSTATE HEALTH ORAL) Take 3 tablets by mouth once daily. multivit with minerals/lutein (MULTI-ISABELLE 50 AND OVER ORAL) Take 1 tablet by mouth once daily. nitroglycerin sublingual (NITROSTAT) 0.4 mg SL tablet Dissolve 1 tablet under the tongue every 5 minutes as needed. fluticasone (FLONASE) 50 mcg/actuation nasal spray Use 1 [place] in each nostril twice daily. aspirin, enteric coated (ADULT LOW DOSE ASPIRIN) 81 mg EC tablet Take 1 tablet by mouth once daily. No current facility-administered medications for this visit. Objective BP 124/82 (BP Site: Left Arm, BP Position: Sitting, BP Cuff Size: Large Adult) Pulse 80 Wt 80.2kg (176 lb 12.8 oz) SpO2 89% BMI 23.65 kg/m Physical Exam Cardiovascular: Rate and Rhythm: Normal rate and regular rhythm. Heart sounds: No murmur heard. No gallop. Pulmonary: Effort: No respiratory distress. Breath sounds: No wheezing or rales. Abdominal: General: Bowel sounds are normal. Palpations: Abdomen is soft. Musculoskeletal: Right lower leg: No edema. Left lower leg: No edema. Neurological: General: No focal deficit present. Mental Status: He is alert. Assessment and Plan 1. Chronic obstructive pulmonary disease with (acute) exacerbation (HCC) - ICD9: 491.21, ICD10: J44.1 (primary diagnosis) - See Dr. Taqueria Rothman as scheduled. - ALBUTEROL SULFATE HFA 90 MCG/ACTUATION AEROSOL INHALER 2. Essential hypertension - ICD9: 401.9, ICD10: I10 - Controlled - Continue current medications 3. Acute on chronic respiratory failure with hypoxia (HCC) - ICD9: 518.84, 799.02, ICD10: J96.21 - Continue portable oxygen. - CBC 4. Chronic diastolic CHF (congestive heart failure) (HCC) - ICD9: 428.32, 428.0, ICD10: I50.32 Continue furosemide. - FUROSEMIDE 20 MG TABLET 5. Hyperlipidemia, unspecified hyperlipidemia type - ICD9: 272.4, ICD10: E78.5 - Control undetermined, due for labs - Continue current medications - Counseled on healthy diet and regular exercise - ATORVASTATIN 40 MG TABLET 6. Essential tremor - ICD9: 333.1, ICD10: G25.0 Controlled. - PRIMIDONE 50 MG TABLET 7. Atherosclerosis of coronary artery of [place] heart without angina pectoris, unspecified vessel or lesion type - ICD9: 414.01, ICD10: I25.10 Stable. - METOPROLOL TARTRATE 50 MG TABLET - CLOPIDOGREL 75 MG TABLET 8. Anxiety disorder, unspecified type - ICD9: 300.00, ICD10: F41.9 Controlled. - SERTRALINE 100 MG TABLET - DEPRESSION SCREENING/ASSESSMENT 9. Type 2 diabetes mellitus with diabetic mononeuropathy, without long-term current use of insulin ([facility]) - ICD9: 250.60, 355.9, ICD10: E11.41 - Controlled - BLOOD-GLUCOSE METER KIT - METFORMIN 500 MG TABLET - BLOOD GLUCOSE TEST STRIPS - BASIC METABOLIC PNL - HGB A1C Discussed medication dosage, usage, goals of therapy, and side effects. Royce Carroll MD documented in this encounterOur [facility] [place]06-07-[facility] Miscellaneous Notes* Telephone Encounter - Behzad Nunez LPN - 01/01/2023 3:11 PM EDT Phoned patient and went over results, notes from Gabby De La Cruz CVT TECH with understanding. * Telephone Encounter - Behzad Nunez LPN - 01/01/2023 3:10 PM EDT ----- Message from Gabby De La Cruz APRN.CNP sent at 01/01/2023 1:29 PM EDT ----- Please let the patient know the ultrasound was negative for blood clots Gabby De La Cruz APRN.CNP documented in this encounterOur [facility] Of [facility] [place]06-06-2023 Miscellaneous Notes* Telephone Encounter - Kirstin Tipton RN - 12/31/2022 12:10 PM EDT Pt called and is notified of providers results and instructions. Pt voices understanding. Pt put through to scheduling to set up US DVT lower leg. Kirstin Tipton RN * Telephone Encounter - Gabby De La Cruz APRN.CNP - 12/31/2022 11:09 AM EDT Please let the patient know the D-dimer was elevated, will need ultrasound to rule out DVT. I have ordered one for vasc lab and one for radiology, please schedule with either that has the soonest appointments. Anemia improving, recheck in one month. BNP elevated, continue with Lasix 20 mg daily. Follow-up with Dr. Carroll as scheduled Gabby De La Cruz APRN.CNP documented in this encounterOur [facility] Of [facility] [place]06-05-[facility] History of Present illness Narrative* Gabby De La Cruz APRN.CNP - 12/30/2022 12:41 PM EDT CC: Patient presents with: new dx of CHF HPI Kam Greenberg is a 72 year old male who presents today for above. Patient's home health nurse called on 12/28 to report 5 lb weight gain, BLE pitting edema and fine rales bibasilar. He was reportedly diagnosed with CHF recently and not on any type of diuretic. 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 Patient reports improvement in edema with Lasix. He denies worsening SOB or cough, chest pain, palpitations, PND, orthopnea, fever, chills. Wearing home oxygen continuously. REVIEW OF SYSTEMS See HPI 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 11/06/2005 Degeneration of thoracolumbar intervertebral disc 11/06/2005 compression fractures Diabetes mellitus ([facility]) Dysmetabolic syndrome X Esophageal reflux Essential tremor 11/23/2015 Generalized osteoarthrosis, unspecified site 10/16/2005 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 CVA (cerebrovascular accident) 03/17/2007 Left arm weakness CO (myocardial infarction) ([facility]) 1999 Other and unspecified hyperlipidemia Peripheral vascular disease ([facility]) 11/06/2005 Polyneuropathy in diabetes(357.2) 11/07/2005 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 Polio RPR 1ST INGUN HRNA AGE 6 YRS/> REDUCIBLE 1957 Hernia repair, inguinal, right TRANSCATH STENT INIT VESSEL,PERCUT MARKUS to SVG to RCA & MARKUS to SVG to OM ALLERGIES Lisinopril, Morphine, Oysters, and Tylenol [Acetaminophen] MEDICATIONS furosemide (LASIX) 20 mg tablet Take 1 tablet by mouth once daily for 5 days. metFORMIN (GLUCOPHAGE) 1,000 mg tablet Take 1 tablet by mouth twice daily. metoprolol tartrate, short acting, (LOPRESSOR) 50 mg tablet Take 1 tablet by mouth twice daily. sertraline (ZOLOFT) 100 mg tablet Take 1 tablet by mouth once daily. atorvastatin (LIPITOR) 40 mg tablet Take 1 tablet by mouth daily at bedtime. primidone (MYSOLINE) 50 mg tablet TAKE 1 TABLET BY MOUTH TWICE A DAY clopidogrel (PLAVIX) 75 mg tablet TAKE 1 TABLET BY MOUTH EVERY DAY amLODIPine (NORVASC) 5 mg tablet Take 1 tablet by mouth once daily. albuterol (PROVENTIL) 2.5 mg /3 mL (0.083 %) nebulizer solution Use 3 mL via nebulizer every 4 hours as needed for wheezing/shortness of breath. Use over 5-15minutes. albuterol HFA (VENTOLIN HFA) 90 mcg/actuation inhaler Inhale 2 Puffs as instructed every 4 hours asneeded for wheezing/shortness of breath. blood sugar diagnostic (BLOOD GLUCOSE TEST) test strip Check blood glucose once daily. Dx: E11.40. Non-Insulin dependent. saw/vit E/sod miguel/lyc/beta/pyg (PROSTATE HEALTH ORAL) Take 3 tablets by mouth once daily. multivit with minerals/lutein (MULTI-ISABELLE 50 AND OVER ORAL) Take 1 tablet by mouth once daily. nitroglycerin sublingual (NITROSTAT) 0.4 mg SL tablet Dissolve 1 tablet under the tongue every 5 minutes as needed. fluticasone (FLONASE) 50 mcg/actuation nasal spray Use 1 [place] in each nostril twice daily. aspirin, enteric coated (ADULT LOW DOSE ASPIRIN) 81 mg EC tablet Take 1 tablet by mouth once daily. FAMILY HISTORY Problem Relation Age of Onset other (Brain Ca) Mother other (CVA) Father , aneurysm other (CO) Father other (Other) Brother natural causes. None Brother no information. None Brother Cancer Son , testicular ca Social History Tobacco Use Smoking status: Every Day Packs/day: 1.00 Years: 52.00 Pack years: 52.00 Types: Cigarettes Start date: 1966 Smokeless tobacco: Never Tobacco comments: 1-4 cigarrettes per day 01/14/22 Vaping Use Vaping Use: Never used Substance Use Topics Alcohol use: Not Currently Comment: rare NAB Drug use: No PHYSICAL EXAM BP 128/64 Pulse 83 Resp 18 Wt 80.3 kg (177 lb) SpO2 88% BMI 23.68 kg/m General Appearance: well appearing, in no acute distress, alert Lungs: Lung sounds diminished throughout. No rales, rhonchi or wheezing. Wearing oxygen Heart: RRR without murmur, gallop, or rubs. No ectopy Ext: trace LE edema, good distal pulses DATA REVIEWED: Outside chart from [facility] admission reviewed. ASSESSMENT/PLAN: 1. Bilateral lower extremity edema - ICD9: 782.3, ICD10: R60.0 (primary diagnosis) Recently admitted to [facility] for SOB. Per discharge summary his BNP was elevated in the ER so diagnosisof acute CHF was made and he was started on Lasix. Echocardiogram and chest CT did not support thisdiagnosis. SOB attributed to severe COPD, pulmonology stopped diuretics and he was treated with antibiotics instead. Check labs: - COMP METABOLIC PANEL - NT PRO BNP - CBC + DIFF - D-DIMER Continue with Lasix 20 mg daily Follow-up with PCP on 01/03 as scheduled 2. Chronic obstructive pulmonary disease, unspecified COPD type (HCC) - ICD9: 496, ICD10: J44.9 PFT's showing severe obstruction. Follow-up with pulmonology as scheduled 3. SOB (shortness of breath) - ICD9: 786.05, ICD10: R06.02 Secondary to COPD - COMP METABOLIC PANEL - NT PRO BNP - CBC + DIFF - D-DIMER 4. Elevated brain natriuretic peptide (BNP) level - ICD9: 790.99, ICD10: R79.89 Possibly due to renal disease, no other findings to support diagnosis of CHF Prescription instructions reviewed with patient as applicable. Potential red flag symptoms discussed with the patient. Reviewed appropriate action plan to take if red flag symptoms occur. Patient agreeable to treatment plan. Gabby De La Cruz APRN.CNP documented in this encounterOur Lady Of [facility]-03-[facility]23 Miscellaneous Notes* Telephone Encounter - Milad Kowalski LPN - 12/28/2022 11:51 AM EDT Unable to close, unfinished notes from Dr. Chicas. Milad Kowalski LPN * Telephone Encounter - Milad Kowalski LPN - 12/28/2022 11:40 AM EDT Bhargavi/[facility] notified, verbalized understanding. ANDREW Nielson, let him know RX for Lasix had been sent to pharmacy to pickup and start. Scheduled appt 12/30, PCP is out of the office until 12/31/2022, no openings until 01/02 w/PCP. 6 month f/u w/PCP 01/03/2023 Milad Kowalski LPN * Telephone Encounter - Talisha Chicas MD - 12/28/2022 11:11 AM EDT Noted last labs Cr 1.31 here; 1.26 at [facility] 12/17, with potassium 4.7 Could not find prior diagnosis of CHF in records from [facility] or here. Can try Lasix 20 mg daily for the next 5 days. Should have follow up next week given new diagnosis of CHF. Need to determine whether needs to stayon Lasix or take prn, when to get labs if needed to stay on med or use often. To ER if red flag symptoms develop (worsening SOB,ORTEGA,CP,etc) The following approved medication requests have been transmitted electronically. Requested Prescriptions Signed Prescriptions Disp Refills furosemide (LASIX) 20 mg tablet 5 tablet 0 Sig: Take 1 tablet by mouth once daily for 5 days. Authorizing Provider: TALISHA CHICAS MD * Telephone Encounter - Kirstin Tipton RN - 12/28/2022 9:15 AM EDT Bharg[facility] nurse with [facility] called and reports Pt has new CHF and since they saw him on Friday he has gained 5 lbs. Pt isn't on any diuretic. Pt has trace crackles and lungs are diminished. Pt has long time COPD. documented in this encounterOur Lady Of [facility] [place]05-31-2023 History of Present illness Narrative* PETEY Ortiz - 12/25/2022 10:17 AM EDT PULM FUNCTION SMARTBLOCK: Provider: Royce Carroll MD Assisting Tech: Miryam Petush, RPFT Spirometry w/BD: 1 documented in this encounterOur Lady Of Mer[facility] [place]05-15-2023 Miscellaneous Notes* Telephone Encounter - Jocelyne Mcknight APRN.CNP - 12/09/2022 11:53 AM EDT Pt to keep appointment on 02/13/23. Will provide RF to last until time of appointment. * Telephone Encounter - BELA Bridges - 12/09/2022 8:42 AM EDT Patient has been identified by name and date of : Yes Pharmacy phones for refill(s): Requested Prescriptions Pending Prescriptions Disp Refills primidone (MYSOLINE) 50 mg tablet [Pharmacy Med Name: PRIMIDONE 50 MG TABLET] 180 tablet 0 Sig: TAKE 1 TABLET BY MOUTH TWICE A DAY clopidogrel (PLAVIX) 75 mg tablet [Pharmacy Med Name: CLOPIDOGREL 75 MG TABLET] 90 tablet 0 Sig: TAKE 1 TABLET BY MOUTH EVERY DAY Date of last office visit in primary care: CINDY 02/21/2022 No appointment scheduled Last 2 Encounter Wt Readings: Date: Wt: 10/29/2022 80.7 kg (178 lb) 07/04/2022 81.2 kg (179 lb 1.6 oz) Please advise. Thank you. BELA Bridges documented in this encounterOur Lady Of Mercy [facility] [place]04-05-2023 Miscellaneous Notes* Telephone Encounter - Gianni Velazquez APRN.CNP - 10/30/2022 3:29 PM EDT patient notified of results LDCT Lung Rads category 2-repeat CT in 12 mos Coronary calcifications Hx of CABG, gallstones, and emphysema. documented in this encounterOur Lady Of Mercy [facility] [place]04-04-2023 Instructions* Patient Instructions* Gianni Velazquez APRN.JULIO - 10/29/2022 2:[address] Lung Screen Results The CT scan that you will have done will show if you have any nodules (small spots) in your lungs that are suspicious for cancer. Around 90% of the patients who have this scan done are found to have at least one nodule. Most nodules are benign (not cancer) and of no harm to you at all. A specialistwill make a scientific evaluation about whether or not a nodule is worrisome based on its size and shape. The radiologist who will read your scan will put it into one of four categories: LUNG-RADS Category Description Overall Probability of Malignancy Recommended Follow-Up 1 Negative No nodules and definitely benign (non-cancerous nodules) Essentially 0. 1 Year - Follow-up Low dose CT 2 Benign Appearance or Behavior Nodules with a very low likelihood of becoming cancer due to size or lack of growth Less than 1% 1 Year - Follow-up Low dose CT 3 Probably Benign Probably benign finding, short term follow-up recommended 1 to 2% 6 Months - Follow-up CT 4 A,B,or X Suspicious Findings for which additional diagnostic testing and/or biopsy is recommended Will be calculated based on nodule characteristics. Dependent on what is seen on the exam. [address], PET, Biopsy At times, we may see something outside of the lungs on the scan that could be a health concern. Below are some of the most common findings: S Clinically Significant or Potentially Clinically Significant Findings (non lung cancer) Referral or additional imaging/labs depending on result. Approximately 10% of people receive this result. Coronary Artery Calcifications (Moderate or Severe) - Referral to cardiology or PCP for further work-up and recommendations. Thyroid Nodule - TSH level and Thyroid Ultrasound dependent on size, referral to endocrinology. Adrenal Nodule - Blood work and referral to endocrinology. Others Lung Cancer Screening hotline: [phone] Lung Cancer Screening [phone] Billing Questions: or [email or web address] Lung Cancer Screening Team: Kirstin Zuñiga CNP; Gail Worrell PA-C; Konstantin Kraft CNP; Cheyrl Nascimento CNP, Corrina Loyd PA-C, Raquel Edwards PA-C, Gianni Velazquez, WINERY WORKER : [phone] documented in this encounterOur Lady Of [facility] [place]04-04-2023 History of Present illness Narrative* Konstantin Calle RT(R) - 10/29/2022 2:00 PM EDT Radiology Service Progress Note PATIENT NAME: Kam Greenberg DATE OF SERVICE: October 29, 2022 TIME: 3:01 PM PATIENT IDENTITY VERIFICATION COMPLETED USING TWO (2) IDENTIFIERS: Name and Date of confirmedby patient verbally. FALL SCREENING: Has the patient had 2 falls in the last year or 1 fall with injury or currently using an Ambulatory Assistive Device (Walker, Cane, Wheelchair, Crutches, etc.)? No PATIENT GENDER DATA: Male PATIENT RELEVANT IMPLANT DATA REVIEWED: Yes RADIOLOGY DEPARTMENT: CT; Exam(s) Completed: Chest PERIPHERAL IV DATA: Not applicable SIGNED BY: RT Alexandre(R) October 29, 2022 3:01 PM documented in this encounterOur Lady Of [facility] [place]04-04-2023 History of Present illness Narrative* Gianni Velazquez APRN.CNP - 10/29/2022 1:50 PM EDT Images from the original note were not included. LUNG SCREENING VISIT PRIMARY CARE PHYSICIAN: Royce Carroll MD PULMONARY PROVIDER: None Results will be communicated via letter or electronic record if applicable. Visit Delivery: In Person Patient Visit Type: New to Screening Current or Ex-smoker? [Current Exam Type: baseline LDCT Number of Pack Years: 49 Current smoker (=0) REQUESTER: The referring provider advised the patient to have screening. HISTORY OF PRESENT ILLNESS: Kam Greenberg is a 72 year old Active smoker who presents for lung screening. Respiratory symptoms include: SOB: Yes, sometimes, uses albuterol Chest tightness: Yes Coughing: Yes: With mucus Clear Hemoptysis: No Wheezing: Yes, sometimes Fever/Chills: No Recent Respiratory Infection: No Unintentional weight loss: No, trying to lose weight for diabetes. Last 6 Encounter Wt Readings: Date: Wt: 10/29/2022 80.7 kg (178 lb) 07/04/2022 81.2 kg (179 lb 1.6 oz) 02/21/2022 83.7 kg (184 lb 9.6 oz) 02/19/2022 83.9 kg (185 lb) 01/14/2022 84.2 kg (185 lb 9.6 oz) 11/08/2021 84.8 kg (187 lb) ECOG PERFORMANCE STATUS: 0- Fully active, able to carry on all pre-disease performance w/o restriction. Modified Medical Research [place] Dyspnea Scale (MMRC) I only get breathless with strenous exercise 0 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 11/06/2005 Degeneration of thoracolumbar intervertebral disc 11/06/2005 compression fractures Diabetes mellitus ([facility]) Dysmetabolic syndrome X Esophageal reflux Essential tremor 11/23/2015 Generalized osteoarthrosis, unspecified site 10/16/2005 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 CVA (cerebrovascular accident) 03/17/2007 Left arm weakness CO (myocardial infarction) ([facility]) 1999 Other and unspecified hyperlipidemia Peripheral vascular disease ([facility]) 11/06/2005 Polyneuropathy in diabetes(357.2) 11/07/2005 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 Polio RPR 1ST INGUN HRNA AGE 6 YRS/> REDUCIBLE 1957 Hernia repair, inguinal, right TRANSCATH STENT INIT VESSEL,PERCUT MARKUS to SVG to RCA & MARKUS to SVG to OM FAMILY HISTORY Problem Relation Age of Onset other (Brain Ca) Mother other (CVA) Father , aneurysm other (CO) Father other (Other) Brother natural causes. None Brother no information. None Brother Cancer Son , testicular ca primidone (MYSOLINE) 50 mg tablet Take 1 tablet by mouth twice daily. amLODIPine (NORVASC) 5 mg tablet Take 1 tablet by mouth once daily. albuterol (PROVENTIL) 2.5 mg /3 mL (0.083 %) nebulizer solution Use 3 mL via nebulizer every 4 hours as needed for wheezing/shortness of breath. Use over 5-15minutes. clopidogrel (PLAVIX) 75 mg tablet Take 1 tablet by mouth once daily. metFORMIN (GLUCOPHAGE) 1,000 mg tablet Take 1 tablet by mouth twice daily. metoprolol tartrate, short acting, (LOPRESSOR) 50 mg tablet Take 1 tablet by mouth twice daily. sertraline (ZOLOFT) 100 mg tablet Take 1 tablet by mouth once daily. atorvastatin (LIPITOR) 40 mg tablet Take 1 tablet by mouth daily at bedtime. albuterol HFA (VENTOLIN HFA) 90 mcg/actuation inhaler Inhale 2 Puffs as instructed every 4 hours asneeded for wheezing/shortness of breath. blood sugar diagnostic (BLOOD GLUCOSE TEST) test strip Check blood glucose once daily. Dx: E11.40. Non-Insulin dependent. saw/vit E/sod miguel/lyc/beta/pyg (PROSTATE HEALTH ORAL) Take 3 tablets by mouth once daily. multivit with minerals/lutein (MULTI-ISABELLE 50 AND OVER ORAL) Take 1 tablet by mouth once daily. nitroglycerin sublingual (NITROSTAT) 0.4 mg SL tablet Dissolve 1 tablet under the tongue every 5 minutes as needed. fluticasone (FLONASE) 50 mcg/actuation nasal spray Use 1 [place] in each nostril twice daily. aspirin, enteric coated (ADULT LOW DOSE ASPIRIN) 81 mg EC tablet Take 1 tablet by mouth once daily. ALLERGIES Allergen Reactions Lisinopril Angioedema Morphine Shortness of Breath rapid heart rate Oysters GI Upset Tylenol [Acetaminop* Dystonia flushed, cold sweats, shakey The medications and allergies were reviewed and reconciled for this patient and deemed current. Lung Cancer Risk Factors: 1.Tobacco Use: Start Age 23, Quit Age: N/A, Average packs per day 1, Pack Years 50 2. Passive Smoke Exposure: Yes, as a Child and as an Adult 3. Personal hx of malignancy: No, Type of Cancer: 4. 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 Race: White 6. Education: High School Graduate 7. BMI:Body mass index is 23.59 kg/m . Patient-entered Height: 6'1 Patient-entered Weight: 178 pounds 8. COPD: Yes 9. Pneumonia in the past 5 years: No 10. Is there a history of lung cancer in a first degree relative? No 11. Is there a history of lung cancer in a non-first degree relative? No 12. Is there a history of any other cancer in a first degree relative? Yes Health Maintenance Immunization History Administered Date(s) Administered COVID-19 booster vaccine, age 12+ yr, bivalent ([employer]) 07/04/2022 COVID-19 original vaccine, age 12+ yr, monovalent ([employer] - PURPLE TOP) 07/31/2021 COVID-19 original vaccine, full dose, monovalent (MODERNA) 11/02/2020 12/02/2020 influenza (HD-IIV) vaccine, age 65+ yr, high dose, PF (FLUZONE HIGH-DOSE) 04/01/2017 04/01/2018 04/08/2019 influenza (HD-IIV4) vaccine, age 65+ yr, high dose, quadrivalent, PF (FLUZONE HIGH-DOSE) 05/19/2020 04/28/2021 07/04/2022 influenza (IIV3) vaccine, age 3+ yr, trivalent (AFLURIA, FLULAVAL, FLUVIRIN, FLUZONE) 05/24/2014 influenza (IIV4) vaccine, age 6 mo - 64 yr, quadrivalent (AFLURIA, FLULAVAL, FLUZONE) 05/24/2015 05/02/2016 influenza vaccine, unspecified formulation 06/07/2008 05/18/2009 05/15/2010 05/20/2011 05/25/2012 05/24/2013 pneumococcal (PCV13) vaccine, 13 valent (PREVNAR 13) 12/10/2016 pneumococcal (PPV23) vaccine, 23 valent (PNEUMOVAX 23) 01/27/2008 04/01/2018 tetanus diphtheria pertussis (Tdap) vaccine, age 7+ yr (ADACEL, BOOSTRIX) 11/20/2011 Colonoscopy: 10/05/2018 Mammogram: DATA REVIEW I have directly visualized the testing documented: Prior Imaging: Last CT/CTA Chest/Lungs CT CHEST WO IVCON Exam End: 11/01/2021 10:21 AM (Final result) Narrative: * * *Final Report* * * DATE OF EXAM: Nov 01 2021 10:20AM [facility] 0541 - CT CHEST WO IVCON / PROCEDURE REASON: Lung nodules * * * * Physician Interpretation * * * * EXAMINATION: CHEST CT WITHOUT CONTRAST CLINICAL HISTORY: Follow-up lung nodules. Technique: Spiral CT acquisition of the chest from the thoracic inlet to the upper abdomen without contrast. MQ: [id number] CT Radiation dose: Integrated Dose-length product (DLP) for this visit = 243 mGy*cm CT Dose Reduction Employed: Automated exposure control (AEC) COMPARISON: There are no prior relevant examinations available for comparison within the [facility]. RESULT: Limitations: None. Lines, tubes, and devices: None. Lung parenchyma and airways: The central airways are patent. The lungs are hyperinflated with extensive chronic interstitial lung disease with subpleural reticulation and scattered areas of pleural-parenchymal scarring especially at the lung bases. There is biapical pleural thickening and centrilobular emphysema. Left upper lobe area of scarring and postsurgical change shows no interval complication. There are no discrete pulmonary nodules or masses. 3 mm nodule noted in the right upper lung on CTA of the head and neck on today's examination demonstrates groundglass opacity likely confluence of vascular vascularity and lung parenchyma. This could also represent a focal area of airways inflammation. Pleural space: No pleural effusion. No pleural thickening. Lower neck, lymph nodes, and mediastinum: The imaged thyroid gland is normal. Shotty fatty replaced and borderline enlarged pretracheal lymph nodes are likely post reactive. Largest measures 10 mm in short axis dimension. No pathologic lymphadenopathy in the supraclavicular, axillary, mediastinal, or hilar regions by size criteria. Heart, pericardium, and thoracic vessels: The thoracic aorta and main pulmonary artery are normal in caliber. The cardiac chambers are normal in size. Coronary artery atherosclerotic calcifications are noted, although the study is not optimized for coronary assessment. No pericardial effusion or thickening. Bones/Soft Tissues: The bony structures are osteopenic with degenerative change. No acute or bony destructive process noted. Upper abdomen: No acute abnormality in the imaged upper abdomen. Quality Analyst (topogram) images: No additional findings. Impression: IMPRESSION: Extensive bilateral chronic interstitial lung changes and left upper lobe postsurgical scarring. There are no suspicious pulmonary nodules or masses. Groundglass opacity measuring less than 1 cm in the right upper lung which corresponds to the previously described abnormality demonstrates adjacent curvilinear stranding and is most consistent with an area of parenchymal scarring and airways inflammation.. No CT evidence of acute abnormality. Lumber Sticker: [id number] Transcribe Date/Time: Nov 01 2021 11:56A Dictated by : BEHZAD DENG MD This examination was interpreted and the report reviewed and electronically signed by: BEHZAD DENG MD on Nov 01 2021 7:57PM EST Last CT Chest - Impression Only CT CHEST WO IVCON Exam End: 11/01/2021 10:21 AM (Final result) Impression: IMPRESSION: Extensive bilateral chronic interstitial lung changes and left upper lobe postsurgical scarring. There are no suspicious pulmonary nodules or masses. Groundglass opacity measuring less than 1 cm in the right upper lung which corresponds to the previously described abnormality demonstrates adjacent curvilinear stranding and is most consistent with an area of parenchymal scarring and airways inflammation..... Last XR Chest - Impression Only XR CHEST PA/LAT Collected: 11/11/2008 8:45 AM (Final result) Pulmonary Function Testing: No textual results found for the specified procedure(s). PHYSICAL EXAM: Deferred ASSESSMENT and RECOMMENDATIONS: 1. Screening for lung cancer: Six year risk for lung cancer: 10.63% I have determined that the patient is eligible for a low dose CT based on age, absence of signs or symptoms of lung cancer, and total pack years: Yes. The patient and I engaged in shared decision making, including the use of one or more decision aids, to include benefits, harms, follow-up diagnostic testing, over-diagnosis, false positive rate, andtotal radiation exposure. The patient understands and feels comfortable with it: Yes. The patient was counseled on the importance of adherence to annual LDCT lung cancer screening, impact of comorbidities and ability or willingness to undergo diagnosis and treatment. The patient understands and feels comfortable with it:Yes. 2. Nicotine dependence: The patient was counseled on the importance of smoking cessation if currentsmoker and, if appropriate, offered additional tobacco cessation counseling services - Smoking Cessation Counseling. SMOKING CESSATION COUNSELING Smoking cessation methods including Behavior Modification were discussed with the patient and assistance offered. The medical conditions adversely affected by cigarette use include:COPD, Emphysema, and Lung Cancer. The patient is currently not ready to quit. I personally spent <3 minutes in counseling. The time spent in smoking cessation counseling is exclusive of any other counseling during this visit. Gianni Velazquez APRN.CNP NPI #: October 29, [id number] 1:57 PM documented in this encounterOur Lady Of [facility]03-29-2023 Miscellaneous Notes* Telephone Encounter - Carmen Rose LPN - 10/23/2022 9:04 AM EDT TC to patient who was agreeable with making an appointment prior to more refills. Notified his medication was refilled for 3 months. Carmen Rose LPN * Telephone Encounter - Gabby De La Cruz APRN.CNP - 10/21/2022 2:58 PM EDT Mysoline prescribed by neurology Gabby De La Cruz APRN.CNP * Telephone Encounter - Yoav Sutherland Ma - 10/21/2022 2:23 PM EDT CINDY: 07/04/2022 NOV: 01/03/2023 * Telephone Encounter - Linnette Guo - 10/21/2022 10:03 AM EDT Pharmacy verified in Epic Patient has been identified by name and date of : Yes Patient aware RX will be sent to pharmacy. No need to notify patient. Patient phones for refill(s): Requested Prescriptions Pending Prescriptions Disp Refills amLODIPine (NORVASC) 5 mg tablet 90 tablet 1 Sig: Take 1 tablet by mouth once daily. albuterol (PROVENTIL) 2.5 mg /3 mL (0.083 %) nebulizer solution 90 mL 1 Sig: Use 3 mL via nebulizer every 4 hours as needed for wheezing/shortness of breath. Use over 5-15minutes. primidone (MYSOLINE) 50 mg tablet 180 tablet 0 Sig: Take 1 tablet by mouth twice daily. Date of last office visit : 07/04/2022 Date of next office visit : 01/03/2023 Last 2 Encounter Wt Readings: Date: Wt: 07/04/2022 81.2 kg (179 lb 1.6 oz) 02/21/2022 83.7 kg (184 lb 9.6 oz) Please advise. Linnette Hammond Pss documented in this encounterOur [facility] Of [facility] History of Present illness Narrative* Gianni Velazquez APRN.CNP - 10/22/2022 8:21 AM EDT LDCT documented in this encounterOur Lady Of [facility] [place]03-17-2023 Miscellaneous Notes* Telephone Encounter - Sera Chauhan - 10/11/2022 11:42 AM EDT Patient has been identified by name and date of : Yes, Provider ANNITA Patient phones for refill(s): Requested Prescriptions Pending Prescriptions Disp Refills albuterol (PROVENTIL) 2.5 mg /3 mL (0.083 %) nebulizer solution 90 mL 1 Sig: Use 3 mL via nebulizer every 4 hours as needed for wheezing/shortness of breath. Use over 5-15minutes. Date of last office visit in primary care: 07/04/22 Last 2 Encounter Wt Readings: Date: Wt: 07/04/2022 81.2 kg (179 lb 1.6 oz) 02/21/2022 83.7 kg (184 lb 9.6 oz) Previous labs/tests for medication: Not applicable Please advise. Thank you. Sera Chauhan documented in this encounterOur Lady Of [facility] [place]01-18-2023 Miscellaneous Notes* Telephone Encounter - Milad Kowalski COCKTAIL SERVER - 08/14/2022 1:49 PM EST Patient has been identified by name and date of : Yes Patient phones for refill(s): Requested Prescriptions Pending Prescriptions Disp Refills metFORMIN (GLUCOPHAGE) 1,000 mg tablet 60 tablet 5 Sig: Take 1 tablet by mouth twice daily. metoprolol tartrate, short acting, (LOPRESSOR) 50 mg tablet 60 tablet 5 Sig: Take 1 tablet by mouth twice daily. sertraline (ZOLOFT) 100 mg tablet 90 tablet 3 Sig: Take 1 tablet by mouth once daily. atorvastatin (LIPITOR) 40 mg tablet 30 tablet 5 Sig: Take 1 tablet by mouth daily at bedtime. Date of last office visit in primary care: 07/04/2022 6 month follow-up: 01/03/2023 Last 2 Encounter Wt Readings: Date: Wt: 07/04/2022 81.2 kg (179 lb 1.6 oz) 02/21/2022 83.7 kg (184 lb 9.6 oz) Previous labs/tests for medication: Diabetes: Hemoglobin A1C (%) Date Value 07/04/2022 6.3 01/14/2022 6.4 04/12/2021 6.8 05/19/2020 6.4 Cholesterol: HDL Cholesterol (mg/dL) Date Value 07/04/2022 43 04/12/2021 35 LDL Cholesterol (mg/dL) Date Value 07/04/2022 29 04/12/2021 32 ALT (U/L) Date Value 07/04/2022 11 04/12/2021 5 Non HDL Cholesterol (mg/dL) Date Value 07/04/2022 48 04/12/2021 49 Blood Pressure: BUN (mg/dL) Date Value 07/04/2022 17 06/29/2021 16 Sodium (mmol/L) Date Value 07/04/2022 141 06/29/2021 139 Last 1 Encounter BP Readings: Date: BP: 07/04/2022 128/72 Please advise. Thank you. Milad Kowalski LPN * Telephone Encounter - Izabela Guo - 08/14/2022 12:41 PM EST Patient's insurance changed; script need to be switched to [facility] in [place]. He is out of Metformin and Metoprolol. * Telephone Encounter - Izabela Indio Pss - 08/14/2022 12:39 PM EST Patient has been identified by name and date of : Yes Requested Prescriptions Pending Prescriptions Disp Refills metFORMIN (GLUCOPHAGE) 1,000 mg tablet 60 tablet 5 Sig: Take 1 tablet by mouth twice daily. metoprolol tartrate, short acting, (LOPRESSOR) 50 mg tablet 60 tablet 5 Sig: Take 1 tablet by mouth twice daily. sertraline (ZOLOFT) 100 mg tablet 90 tablet 3 Sig: Take 1 tablet by mouth once daily. atorvastatin (LIPITOR) 40 mg tablet 30 tablet 5 Sig: Take 1 tablet by mouth daily at bedtime. RX INSTRUCTIONS: Patient aware RX will be sent to pharmacy. No need to notify patient. Izabela Guo documented in this encounterOur Lady Of [facility]cy [facility] [place]12-12-2022 Miscellaneous Notes* Telephone Encounter - Milad Kowalski LPN - 07/08/2022 1:01 PM EST Patient notified of below results/recommendation. Milad Kowalski LPN * Telephone Encounter - Milad Kowalski LPN - 07/08/2022 12:57 PM EST ----- Message from Royce Carroll MD sent at 07/06/2022 12:37 PM EST ----- Diabetes and lipids controlled. Some proteinuria. Urine will need rechecked in 6 months. documented in this encounterOur Lady Of Mercy [facility] [place]12-12-2022 Miscellaneous Notes* Telephone Encounter - Darcy Hopkinsroneyjose juanGAY - 07/08/2022 11:39 AM EST RX INSTRUCTIONS: Pharmacy initiated this request. No need to notify patient. Last OV: 02/21/22 with KD Last refill: 04/08/22 With 60 and 2 refills Follow up: No Neuro F/U scheduled at this time Assessment/Plan: G25.0 Essential tremor (primary encounter diagnosis) Comment: Currently on primidone 50mg BID for management of tremor. Exam slightly improved as no tremor was noted with arms outstretched and no tremor at rest. He reports no concerns regarding medication. Will continue as previously prescribed. 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 Consult placed to physical therapy at timeof previous appointment. He did go for initial evaluation where recommendation was made to utilize walker rather than cane, however, he has not returned. He continues to use his cane at the time of appointment today. Recommend returning to physical therapy for further work on balance and stability. G45.9 Transient cerebral ischemia, unspecified type R29.810 Facial weakness R29.898 Left arm weakness Z86.73 History of stroke Comment: Pt previously reporting multiple episodes of L facial heaviness and numbness since July. Episodes lasting one minute to ten minutes and associated with L arm weakness. Since his time of his previous appointment he reports that symptoms have recurred with most recent episode happening yesterday and involving left facial weakness for fifteen seconds. He is uncertain how many times sincehis previous appointment this has occurred. Of note, since episodes began he has had MRI of brain and CTA of head/neck. MRI unremarkable, however, severe narrowing of L cervical ICA noted, no significant intracranial stenosis. He has been following with vascular surgery regularly; last appointment on 02/19. He remains on ASA, Plavix, and statin. Also wore outpatient media monitor which noted onerun of vtach and three episodes of SVT. Appt with cardiology scheduled for April. As episodes continue to occur despite compliance with medications and without significant intracranial findings, con cern for alternative etiology. On discussion pt reports hx of seizures and at this time will order EEG to evaluate for possible seizure activity contributing to symptoms. In interim recommend continuing ASA, Plavix, and statin as previous prescribed. Continue BP and BG management and follow up withPCP. Encouraged smoking cessation. Discussed importance of calling 911 and immediately proceeding to ED if symptoms should recur. If episodes continue to occur may consider consult to cerebrovascular. Office Visit on 02/21/22 EPIL EEG ROUTINE Jocelyne Mcknight APRN.WINERY WORKER documented in this encounterOur Lady Of [facility] [place]12-08-2022 Instructions* Patient Instructions* Royce Carroll MD - 07/04/2022 1:39 PM EST Have you ever planned for future healthcare decisions with a power of consumer attorney, living will, or advance directives? No. Are you interested in a follow-up phone call or visit with a doctor for more information about planning for future health care decisions? Yes and Please bring a copy to your next appointment or email to [email or web address] Advance Directive Forms Advanced Directives Forms (Georgian) FORMS: [email or web address] INFORMATIONAL BROCHURE: [email or web address] [email or web address]?la=en Advance Directives (non-Georgian) FORMS: [email or web address] [email or web address]-tab Please bring completed forms to your next appointment or email them to [email or web address]. Patient Resources How to Get Started Talking with Loved Ones about your Wishes at the End of Life [email or web address]/wp-content/uploads//ConversationProjec a-WmqzbNnnpwdcCsc-Ovqobph.pdf How to Navigate Conversations with your Care Team around your Preferences [email or web address] FASTING BLOOD WORK AND URINE TEST TODAY ON YOUR WAY OUT. documented in this encounterOur Lady Of [facility] [place]12-08-2022 History of Present illness Narrative* Royce Carroll MD - 07/04/2022 1:22 PM EST This note was created using Relcy. Subjective Patient presents with: Yearly Exam Kam Greenberg is a 71 year old male. He had no new concerns. He ran out of some inhalers due to the donut hole. He sees Dr. Castillo/Horace Mcknight, WINERY WORKER, [facility]; Horace Limon DO, vascular surgery; Shailesh Forman, [place].He missed his cardiology consult with Dr. Woods. Review of Systems Constitutional: Negative. Respiratory: Positive for cough and wheezing. Negative for chest tightness and shortness of breath. Cardiovascular: Negative for chest pain, palpitations and leg swelling. Gastrointestinal: Negative. Genitourinary: Negative. Musculoskeletal: Positive for gait problem. Neurological: Negative for dizziness and headaches. Psychiatric/Behavioral: Negative for dysphoric mood. The patient is not nervous/anxious. 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 11/06/2005 Degeneration of thoracolumbar intervertebral disc 11/06/2005 compression fractures Dysmetabolic syndrome X Esophageal reflux Essential tremor 11/23/2015 Generalized osteoarthrosis, unspecified site 10/16/2005 Late effects of acute poliomyelitis 195 Late effects of CVA (cerebrovascular accident) 03/17/2007 Left arm weakness CO (myocardial infarction) ([facility]) 1999 Other and unspecified hyperlipidemia Peripheral vascular disease ([facility]) 11/06/2005 Polyneuropathy in diabetes(357.2) 11/07/2005 S/P CABG x 3 06/06/2015 S/P coronary artery stent placement 06/06/2015 ST elevation CO (STEMI) ([facility]) 03/2013 Stage 3a chronic kidney disease ([facility]) 04/17/2018 Stenosis of left carotid artery 04/03/2016 Unspecified chronic bronchitis ([facility]) 06/07/2008 PAST SURGICAL HISTORY Procedure Laterality Date CABG, ARTERIAL, THREE 1999 CABG x3 PAST SURGICAL HISTORY OF 1963 Ankle and Feet surgeries d.t. Polio RPR 1ST INGUN HRNA AGE 6 YRS/> REDUCIBLE 1957 Hernia repair, inguinal, right TRANSCATH STENT INIT VESSEL,PERCUT MARKUS to SVG to RCA & MARKUS to SVG to OM FAMILY HISTORY Problem Relation Age of Onset other (Brain Ca) Mother other (CVA) Father , aneurysm other (CO) Father other (Other) Brother natural causes. None Brother no information. None Brother Cancer Son , testicular ca Social History Tobacco Use Smoking status: Every Day Packs/day: 1.00 Years: 52.00 Pack years: 52.00 Types: Cigarettes Start date: 1967 Smokeless tobacco: Never Tobacco comments: 1-4 cigarrettes per day 01/14/22 Vaping Use Vaping Use: Never used Substance Use Topics Alcohol use: Not Currently Comment: rare NAB Drug use: No ALLERGIES Allergen Reactions Lisinopril Angioedema Morphine Shortness of Breath rapid heart rate Oysters GI Upset Tylenol [Acetaminop* Dystonia flushed, cold sweats, shakey Current Outpatient Medications Medication Sig atorvastatin (LIPITOR) 40 mg tablet Take 1 tablet by mouth daily at bedtime. metoprolol tartrate, short acting, (LOPRESSOR) 50 mg tablet Take 1 tablet by mouth twice daily. metFORMIN (GLUCOPHAGE) 1,000 mg tablet Take 1 tablet by mouth twice daily. amLODIPine (NORVASC) 5 mg tablet Take 1 tablet by mouth once daily. primidone (MYSOLINE) 50 mg tablet Take 1 tablet by mouth twice daily. sertraline (ZOLOFT) 100 mg tablet Take 1 tablet by mouth once daily. saw/vit E/sod miguel/lyc/beta/pyg (PROSTATE HEALTH ORAL) Take 3 tablets by mouth once daily. multivit with minerals/lutein (MULTI-ISABELLE 50 AND OVER ORAL) Take 1 tablet by mouth once daily. clopidogrel (PLAVIX) 75 mg tablet Take 1 tablet by mouth once daily. nitroglycerin sublingual (NITROSTAT) 0.4 mg SL tablet Dissolve 1 tablet under the tongue every 5 minutes as needed. Blood-Glucose Meter monitoring kit Glucose Meter of Choice - Kit - Dx: Other DM Code E11.49 fluticasone (FLONASE) 50 mcg/actuation nasal spray Use 1 [place] in each nostril twice daily. aspirin, enteric coated (ADULT LOW DOSE ASPIRIN) 81 mg EC tablet Take 1 tablet by mouth once daily. albuterol (PROVENTIL) 2.5 mg /3 mL (0.083 %) nebulizer solution Use 3 mL via nebulizer every 4 hours as needed for wheezing/shortness of breath. Use over 5- 15minutes. (Patient not taking: Reported on07/04/2022) tiotropium (SPIRIVA WITH HANDIHALER) 18 mcg inhalation capsule Inhale 1 capsule as instructed once daily. Use with handihaler. (Patient not taking: Reported on 07/04/2022) TURMERIC ORAL Take 1 tablet by mouth twice daily. (Patient not taking: Reported on 07/04/2022) blood sugar diagnostic (BLOOD GLUCOSE TEST) test strip Check blood glucose once daily. Dx: E11.49, Non-Insulin dependent. (Patient not taking: Reported on 07/04/2022) No current facility-administered medications for this visit. Immunization History Administered Date(s) Administered COVID-19 original vaccine, age 12+ yr, monovalent (Myrio - PURPLE TOP) 07/31/2021 COVID-19 original vaccine, full dose, monovalent (MODERNA) 11/02/2020 12/02/2020 Influenza Seasonal - High Dose - Age 65+ 04/01/2017 04/01/2018 04/08/2019 Influenza Seasonal Inj Age 3+ 05/24/2014 Influenza Seasonal Inj Quad Age 6 Mo - 64 Yrs 05/24/2015 05/02/2016 Influenza Vaccine, Split-Non Spec 06/07/2008 05/18/2009 05/15/2010 05/20/2011 05/25/2012 05/24/2013 Pneumococcal-13 Vac Conjugate 12/10/2016 Pneumovax 01/27/2008 04/01/2018 Tdap (Age 7+) 11/20/2011 influenza, high-dose, quadrivalent vaccine (FLUZONE HIGH DOSE QUADRIVALENT) 05/19/2020 04/28/2021 Objective BP 128/72 Pulse 76 Temp 36.6 C (97.8 F) Resp 16 Wt 81.2 kg (179 lb 1.6 oz) SpO2 95% BMI23.73 kg/m Physical Exam Constitutional: General: He is not in acute distress. HENT: Head: Normocephalic. Eyes: Extraocular Movements: Extraocular movements intact. Conjunctiva/sclera: Conjunctivae normal. Cardiovascular: Rate and Rhythm: Normal rate and regular rhythm. Heart sounds: No murmur heard. No gallop. Pulmonary: Effort: No respiratory distress. Breath sounds: Wheezing present. No rales. Abdominal: General: There is no distension. Palpations: Abdomen is soft. Tenderness: There is no abdominal tenderness. Musculoskeletal: Right lower leg: No edema. Left lower leg: No edema. Lymphadenopathy: Cervical: No cervical adenopathy. Neurological: General: No focal deficit present. Mental Status: He is alert. Gait: Gait abnormal. Comments: Using a cane. Psychiatric: Mood and Affect: Mood normal. Feet:Shoes and socks removed, abnormal pulses Decreased bilaterally, and not sensitive to monofilament in the toes. Hammertoes. Nails mycotic. No ulcers. Assessment and Plan 1. Routine medical exam - ICD9: V70.0, ICD10: Z00.00 (primary diagnosis) - Counseled on healthy diet and regular exercise - Smoking cessation encouraged; discussed risks to health and quitting strategies. Patient is not ready to quit - Fall avoidance. 2. Chronic bronchitis, unspecified chronic bronchitis type (HCC) - ICD9: 491.9, ICD10: J42 I recommended further evaluation and treatment. - CONSULT TO PULMONARY MEDICINE - SPIROMETRY - BASELINE AND POST DILATOR - LUNG VOLUMES - ALBUTEROL SULFATE HFA 90 MCG/ACTUATION AEROSOL INHALER 3. Need for influenza vaccination - ICD9: V04.81, ICD10: Z23 - INFLUENZA SEASONAL QUADRIVALENT HIGH DOSE AGE 65+ 4. Need for COVID-19 vaccine - ICD9: V04.89, ICD10: Z23 - PFIZER-BIONTECH COVID-19 BIVALENT BOOSTER VACCINE, AGE 12+ YR 5. Hyperlipidemia, unspecified hyperlipidemia type - ICD9: 272.4, ICD10: E78.5 - to be determined upon return of lab results 6. Type 2 diabetes mellitus with diabetic neuropathy, without long-term current use of insulin (HCC) - ICD9: 250.60, 357.2, ICD10: E11.40 - Control TBD. - Continue current medications Royce Carroll MD documented in this encounterOur Lady Of [facility] [place]10-04-2022 Miscellaneous Notes* Telephone Encounter - Gabby De La Cruz APRN.CNP - 04/30/2022 7:59 AM EDT Addressed in refill encounter Gabby De La Cruz APRN.CNP * Telephone Encounter - Danelle Eng RN - 04/29/2022 7:03 PM EDT Spoke with patient. He states he went to [facility] on 04/15/22. States he was having trouble breathing. He says he was given a nebulizer treatment in Urgent Care and prescribed Albuterol Sulfate 2.5 MG /3 ML nebulizer solution (0.083% ) which he has been using at home. He says he has been using regularly with good effect. Please see other encounter for refill request. Danelle Eng, RN * Telephone Encounter - Sary Perez - 04/29/2022 2:13 PM EDT Kam Greenberg is calling Royce Carroll MD today. Patient is requesting a renewal on nebulizer solution. Prescribed by urgent care. He only has two vials left. He's been using a nebulizer and it is working well -No more shortness of breath Please send to GYPSY/Radha documented in this encounterOur Lady Of [facility]cy [facility] [place]10-04-2022 Miscellaneous Notes* Telephone Encounter - Gabby De La Cruz APRN.CNP - 04/30/2022 7:58 AM EDT The following approved medication requests have been transmitted electronically. Requested Prescriptions Signed Prescriptions Disp Refills albuterol (PROVENTIL) 2.5 mg /3 mL (0.083 %) nebulizer solution 90 mL 1 Sig: Use 3 mL via nebulizer every 4 hours as needed for wheezing/shortness of breath. Use over 5-15minutes. Authorizing Provider: GABBY DE LA CRUZ APRN.JULIO * Telephone Encounter - Danelle Eng RN - 04/29/2022 7:14 PM EDT Patient requests Albuterol Sulfate nebulizer solution. Not on SEP. See other TE. Patient has been identified by name and date of : Yes Patient phones for refill(s): Requested Prescriptions Pending Prescriptions Disp Refills albuterol (PROVENTIL) 2.5 mg /3 mL (0.083 %) nebulizer solution Sig: Use 3 mL via nebulizer every 4 hours as needed for wheezing/shortness of breath. Use over 5-15minutes. Date of last office visit with pcp: 01/14/22 Date of last office visit in primary care: Last 2 Encounter Wt Readings: Date: Wt: 02/21/2022 83.7 kg (184 lb 9.6 oz) 02/19/2022 83.9 kg (185 lb) Previous labs/tests for medication: Not applicable Please advise. Thank you. Danelle Eng RN documented in this encounterOur Lady Of [facility] [place]10-03-2022 Miscellaneous Notes* Telephone Encounter - Ciera Fernandez RN - 04/29/2022 1:28 PM EDT Patient has been identified by name and date of : Yes Pharmacy phones for refill(s): Requested Prescriptions Pending Prescriptions Disp Refills atorvastatin (LIPITOR) 40 mg tablet 30 tablet 5 Sig: Take 1 tablet by mouth daily at bedtime. metoprolol tartrate, short acting, (LOPRESSOR) 50 mg tablet 60 tablet 5 Sig: Take 1 tablet by mouth twice daily. metFORMIN (GLUCOPHAGE) 1,000 mg tablet 60 tablet 5 Sig: Take 1 tablet by mouth twice daily. Date of last office visit with pcp: 01-14-22. Next appt: 07-04-22 Last 2 Encounter Wt Readings: Date: Wt: 02/21/2022 83.7 kg (184 lb 9.6 oz) 02/19/2022 83.9 kg (185 lb) Previous labs/tests for medication: Diabetes: Hemoglobin A1C (%) Date Value 01/14/2022 6.4 04/12/2021 6.8 05/19/2020 6.4 Cholesterol: HDL Cholesterol (mg/dL) Date Value 04/12/2021 35 LDL Cholesterol (mg/dL) Date Value 04/12/2021 32 ALT (U/L) Date Value 04/12/2021 5 Non HDL Cholesterol (mg/dL) Date Value 04/12/2021 49 Blood Pressure: BUN (mg/dL) Date Value 01/14/2022 13 06/29/2021 16 Sodium (mmol/L) Date Value 01/14/2022 139 06/29/2021 139 Last 1 Encounter BP Readings: Date: BP: 02/21/2022 144/68 Liver Function: ALT (U/L) Date Value 04/12/2021 5 AST (U/L) Date Value 04/12/2021 16 Please advise. Thank you. Ciera Fernandez RN documented in this encounterOur Lady Of Mercy [facility] [place]09-21-2022 History of Present illness Narrative* Gi Ferreira MA - 04/17/2022 1:30 PM EDT POPULATION HEALTH NAVIGATION OUTREACH Action/I Patient due for uacr and flu. PCP set expected date for uacr 06/16/22. Left message to call office. 04/17/2022 1:31 PM Pt identified by name and : NO Outreach Outcome/Action Unable to reach patient: Left message Did you use a PCP flex slot to schedule this appointment? N/A Reason for Outreach Care Gap or Scheduling/Wellness visits Payer: Payor: APRYL [employer] / Plan: [employer] HMO / Product Type: HMO / Care Gap Reviewed:: Nephropathy (Albumin/Creatinine) Urine Flu vaccine Reminder: Reminder note to check Health Maintenance for items below Health Maintenance items due: SHINGRIX VACCINE(1 of 2) Never done BP CONTROLLED (<130/80) due on 01/02/2020 ADVANCE DIRECTIVE DISCUSSION Never done DTAP,TDAP,TD(2 - Td or Tdap) due on 11/19/2021 COVID-19 VACCINE(4 - Booster for Moderna series) due on 11/28/2021 INFLUENZA(1) due on 03/28/2022 URINE ALBUMIN:CREATININE RATIO due on 04/12/2022 LDL CHOLESTEROL due on 04/12/2022 DIABETIC FOOT EXAM due on 05/01/2022 Message Sent to Practice: No Navigation Signature: Gi Ferreira MA April 17, 2022 1:30 PM documented in this encounterOur Lady Of [facility] [place]09-19-2022 Miscellaneous Notes* Telephone Encounter - Milad Kowalski LPN - 04/15/2022 4:46 PM EDT Patient has been identified by name and date of : Yes Patient phones for refill(s): Requested Prescriptions Pending Prescriptions Disp Refills amLODIPine (NORVASC) 5 mg tablet 90 tablet 1 Sig: Take 1 tablet by mouth once daily. Date of last office visit in primary care: 02/21/2022 Yearly: 07/04/2022 Last 2 Encounter Wt Readings: Date: Wt: 02/21/2022 83.7 kg (184 lb 9.6 oz) 02/19/2022 83.9 kg (185 lb) Previous labs/tests for medication: Blood Pressure: BUN (mg/dL) Date Value 01/14/2022 13 06/29/2021 16 Sodium (mmol/L) Date Value 01/14/2022 139 06/29/2021 139 Last 1 Encounter BP Readings: Date: BP: 02/21/2022 144/68 Please advise. Thank you. Milad Kowalski LPN * Telephone Encounter - Izabela Guo - 04/15/2022 1:45 PM EDT Patient has been identified by name and date of : Yes Requested Prescriptions Pending Prescriptions Disp Refills amLODIPine (NORVASC) 5 mg tablet 90 tablet 1 Sig: Take 1 tablet by mouth once daily. RX INSTRUCTIONS: Patient aware RX will be sent to pharmacy. No need to notify patient. Izabela Borjas Pss documented in this encounterOur Lady Of Mercy [facility] [place]09-12-2022 Miscellaneous Notes* Telephone Encounter - Latosha Allen COCKTAIL SERVER - 04/08/2022 11:44 AM EDT Last office visit: 02/21/22 Next appointment scheduled: Not scheduled at this time. Last labs: 01/14/22 Pharmacy calls in requesting the following refill(s): Requested Prescriptions Pending Prescriptions Disp Refills primidone (MYSOLINE) 50 mg tablet [Pharmacy Med Name: PRIMIDONE 50 MG TABLET] 180 tablet Sig: TAKE 1 TABLET BY MOUTH TWICE A DAY Assessment/Plan: G25.0 Essential tremor (primary encounter diagnosis) Comment: Currently on primidone 50mg BID for management of tremor. Exam slightly improved as no tremor was noted with arms outstretched and no tremor at rest. He reports no concerns regarding medication. Will continue as previously prescribed. 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 Consult placed to physical therapy at timeof previous appointment. He did go for initial evaluation where recommendation was made to utilize walker rather than cane, however, he has not returned. He continues to use his cane at the time of appointment today. Recommend returning to physical therapy for further work on balance and stability. G45.9 Transient cerebral ischemia, unspecified type R29.810 Facial weakness R29.898 Left arm weakness Z86.73 History of stroke Comment: Pt previously reporting multiple episodes of L facial heaviness and numbness since July. Episodes lasting one minute to ten minutes and associated with L arm weakness. Since his time of his previous appointment he reports that symptoms have recurred with most recent episode happening yesterday and involving left facial weakness for fifteen seconds. He is uncertain how many times sincehis previous appointment this has occurred. Of note, since episodes began he has had MRI of brain and CTA of head/neck. MRI unremarkable, however, severe narrowing of L cervical ICA noted, no significant intracranial stenosis. He has been following with vascular surgery regularly; last appointment on 02/19. He remains on ASA, Plavix, and statin. Also wore outpatient media monitor which noted onerun of vtach and three episodes of SVT. Appt with cardiology scheduled for April. As episodes continue to occur despite compliance with medications and without significant intracranial findings, concern for alternative etiology. On discussion pt reports hx of seizures and at this time will order EEG to evaluate for possible seizure activity contributing to symptoms. In interim recommend continuing ASA, Plavix, and statin as previous prescribed. Continue BP and BG management and follow up withPCP. Encouraged smoking cessation. Discussed importance of calling 911 and immediately proceeding to ED if symptoms should recur. If episodes continue to occur may consider consult to cerebrovascular. Office Visit on 02/21/22 EPIL EEG ROUTINE Jocelyne Mcknight APRN.JULIO documented in this encounterOur [facility] Miscellaneous Notes* Telephone Encounter - MONIQUE Bridges - 03/01/2022 1:17 PM EDT EEG order, clinical notes and insurance previously faxed to [facility] on 02/22/2022. Signed EEG faxed to [facility]. MONIQUE Bridges * Telephone Encounter - Jocelyne Mcknight APRN.CNP - 03/01/2022 8:44 AM EDT Order signed and returned; to be faxed to [facility]. * Telephone Encounter - Tammy Horner MA - 03/01/2022 8:24 AM EDT Received request for EEG from [facility]. Request placed on Jocelyne Mcknight's desk for review and signature. documented in this encounterOur Lady Of [facility] [place]07-28-2022 History of Present illness Narrative* Jocelyne Mcknight APRN.WINERY WORKER - 02/21/2022 1:00 PM EDT Images from the original note were not included. [facility] [place] Follow-up Visit Follow-up note February 21, 2022 HPI: Mr. Greenberg presents today for a follow-up visit. Per his previous visit on 11/08/21: G25.0 Essential tremor Comment: Patient currently taking primidone 50mg BID for tremor. Today he reports worsening of tremor in the early evening. Currently taking medication at 0800 and 2000. Discussed options including adding additional dose of primidone or moving evening dose to before dinner at 1900. At this time will have patient take evening dose one to two hours earlier to determine if improvement in breakthrough tremor at dinnertime. Exam remains unchanged with low amplitude high frequency tremor noted with arms outstretched and no tremor at rest. 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 Determined to be multifactorial dueto hx of stroke/polio (with baseline L side weakness), PVD, neuropathy, and lumbar spine disease. Given balance concerns, consult was placed to physical therapy, however, patient has not yet scheduled. Again, encouraged patient to schedule after appointment today. G45.9 Transient cerebral ischemia, unspecified type R29.810 Facial weakness R29.898 Left arm weakness Z86.73 History of stroke Comment: Pt previously reporting multiple episodes of L facial heaviness and numbness since July. Episodes lasting one minute to ten minutes and associated with L arm weakness. Also noted L facialdroop with ten minute episode. Given concern for stroke, MRI of brain and CTA head/neck completed. MRI without acute findings. CTA noting severe narrowing of L cervical ICA. Consult placed to vascular medicine and patient has since had appointment. Carotid US completed, however, pt will need to reschedule follow up appointment to review results. Encouraged to schedule after appointment today. Also had echocardiogram completed and currently awaiting media monitor results. Pending results may re quire cardiology consult. Previously restarted Plavix 75mg in addition to already prescribed ASA 81mg. At today's appointment no further episodes. Remains compliant with medications. Continue atorvastatin 40mg as previously prescribed. Continue BP and BG management and follow up with PCP. Encouraged smoking cessation. Discussed importance of calling 911 and immediately proceeding to ED if symptoms should recur. Tremor has not been too bad. Sometimes notices increased tremor when holding coffee but can keep food on his silverware. Currently taking 50mg BID. Still taking dose at 8am and 8pm. Did not move his dose closer to dinner. Does not always feel like tremor is worse around dinner. This is intermittent. Denies falls. Still using cane. States balance has not gotten worse. He went for an evaluation at physical therapy. Was told he should use walker instead of his cane. Has not been back to PT. States yesterday he had an episode of left sided facial weakness. States this happened for 10-15 seconds then improved. States this only happened one time recently but then states this has happened prior to yesterday as well. Unsure if he had associated arm weakness. Denies slurred speech though states he wasn't talking so he is unsure. Denies feeling lightheaded. Does not recall vision loss. Still taking plavix and ASA. Can have a headache when he has facial weakness. States this was located posteriorly. Not sure if this has happened with past events. Denies migraine hx. Though states he hasa history of headaches; start occipitally and states during these headaches will forget everything.Has wandered around during one of these headaches in the past. States these headaches are rare. Last episode was 7-8 years ago. 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 Last seizure was age 16-17. States during this he stopped and stared blankly off into space. Not aware of what was going on around him. He did see vascular medicine two days ago. Going back on August 27 for US and then later that day will be going to see vascular. Has appointment with cardiology in April. Currently taking medication for BP, BG, and hld. 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 11/06/2005 Degeneration of thoracolumbar intervertebral disc 11/06/2005 compression fractures Dysmetabolic syndrome X Esophageal reflux Essential tremor 11/23/2015 Generalized osteoarthrosis, unspecified site 10/16/2005 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 CVA (cerebrovascular accident) 03/17/2007 Left arm weakness CO (myocardial infarction) ([facility]) 1999 Other and unspecified hyperlipidemia Peripheral vascular disease ([facility]) 11/06/2005 Polyneuropathy in diabetes(357.2) 11/07/2005 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 Polio RPR 1ST INGUN HRNA AGE 6 YRS/> REDUCIBLE 1957 Hernia repair, inguinal, right TRANSCATH STENT INIT VESSEL,PERCUT MARKUS to SVG to RCA & MARKUS to SVG to OM Current Outpatient Medications on File Prior to Visit Medication Sig sertraline (ZOLOFT) 100 mg tablet Take 1 tablet by mouth once daily. albuterol HFA (VENTOLIN HFA) 90 mcg/actuation inhaler INHALE 2 PUFFS BY MOUTH EVERY 4 HOURS NEEDED FOR WHEEZING/SHORTNESS OF BREATH tiotropium (SPIRIVA WITH HANDIHALER) 18 mcg inhalation capsule Inhale 1 capsule as instructed once daily. Use with handihaler. primidone (MYSOLINE) 50 mg tablet TAKE 1 TABLET BY MOUTH TWICE A DAY saw/vit E/sod miguel/lyc/beta/pyg (PROSTATE HEALTH ORAL) Take 3 tablets by mouth once daily. multivit with minerals/lutein (MULTI-ISABELLE 50 AND OVER ORAL) Take 1 tablet by mouth once daily. TURMERIC ORAL Take 1 tablet by mouth twice daily. amLODIPine (NORVASC) 5 mg tablet Take 1 tablet by mouth once daily. atorvastatin (LIPITOR) 40 mg tablet Take 1 tablet by mouth daily at bedtime. metoprolol tartrate, short acting, (LOPRESSOR) 50 mg tablet Take 1 tablet by mouth twice daily. metFORMIN (GLUCOPHAGE) 1,000 mg tablet Take 1 tablet by mouth twice daily. clopidogrel (PLAVIX) 75 mg tablet Take 1 tablet by mouth once daily. blood sugar diagnostic (BLOOD GLUCOSE TEST) test strip Check blood glucose once daily. Dx: E11.49, Non-Insulin dependent. nitroglycerin sublingual (NITROSTAT) 0.4 mg SL tablet Dissolve 1 tablet under the tongue every 5 minutes as needed. Blood-Glucose Meter monitoring kit Glucose Meter of Choice - Kit - Dx: Other DM Code E11.49 fluticasone (FLONASE) 50 mcg/actuation nasal spray Use 1 [place] in each nostril twice daily. aspirin, enteric coated (ADULT LOW DOSE ASPIRIN) 81 mg EC tablet Take 1 tablet by mouth once daily. No current facility-administered medications on file prior to visit. Social History Tobacco Use Smoking status: Current Every Day Smoker Packs/day: 1.00 Years: 47.00 Pack years: 47.00 Types: Cigarettes Start date: 1967 Last attempt to quit: 07/21/2021 Years since quittin.5 Smokeless tobacco: Never Used Tobacco comment: 4 cigarrettes per day 01/14/22 Vaping Use Vaping Use: Never used Substance Use Topics Alcohol use: Not Currently Comment: rare NAB Drug use: No ALLERGIES Allergen Reactions Lisinopril Angioedema Morphine Shortness of Breath rapid heart rate Oysters GI Upset Tylenol [Acetaminop* Dystonia flushed, cold sweats, shakey Review of Systems: Cardiopulmonary: denies chest pain, palpitations Respiratory: + shortness of breath GI/: denies recent nausea, vomiting, diarrhea, constipation, incontinence Musculoskeletal: denies + weakness, + joint ache/pain Back/spine: denies + low back, mid back, or cervical pains Neuro: denies + tremors, loss of feeling, + dizziness, seizure, blackout, paresthesia, facial paresthesia, facial weakness, + difficulty in speech (occasionally mixes up first letter of words), slurring of words, dysarthria, dysphagia, + memory loss, + headache (occasional L), vision changes, loss of hearing Physical Exam: 02/21/22 1255 BP: 144/68 Pulse: 70 Resp: 20 Temp: 36.1 C (97 F) SpO2: 92% Weight: 83.7 kg (184 lb 9.6 oz) Patient is alert and in no distress. Dress is appropriate. Mood is appropriate Breathing appears regular and unstressed Neurologic examination: No formal MMSE performed. CN: Pupils equal and reactive to light, extraocular movements intact with no nystagmus, face is symmetric with no facial droop, hearing decreased on L, tongue is midline with no deviation, shoulder shrug is symmetric. Motor exam shows 5/5 strength symmetric through the upper and lower extremities in all groups tested except for LUE and LLE which is 4+/5. Sensory intact to light touch in all extremities. Deep tendon reflexes are diminished symmetrically at the biceps, brachioradialis, triceps, patella,and achilles bilaterally. Coordination: No dysmetria on finger to nose. No tremor noted with arms outstretched. No tremor noted at rest. No drift seen. Gait unstable without use of cane; slightly unsteady while turning. Arm swing slightly decreased onL. ESTUARDO, finger, hand tapping intact bilaterally. Slightly decreased toe tap on L. Able to rise from chair without using arms. Labs/studies: Outpatient media monitor 11/09/21: Patient had a min HR of 51 bpm, max HR of 150 bpm, and avg HR of 74 bpm. Predominant underlying rhythm was Sinus Rhythm. 1 run of Ventricular Tachycardia occurred lasting 4 beats with a max rate of 150 bpm (avg 126 bpm). 3 Supraventricular Tachycardia runs occurred, the run with the fastest interval lasting 14 beats with a max rate of 118 bpm (avg 107 bpm); the run with the fastest interval was also the longest. Isolated SVEs were rare (<1.0%), SVE Couplets were rare (<1.0%), and SVE Triplets were rare (<1.0%). Isolated VEs were rare (<1.0%), and no VE Couplets or VE Triplets were present. Ventricular Bigeminy was present. Inverted QRS complexes possibly due to inverted placement of device. Carotid US 10/31/21: RIGHT SIDE Common carotid artery: Plaque visualized without evidence of hemodynamically significant stenosis. Internal carotid artery: 20-39% stenosis. Vertebral artery: Patent and antegrade flow noted. Subclavian artery: Plaque visualized without evidence of hemodynamically significant stenosis. LEFT SIDE Common carotid artery: Plaque visualized without evidence of hemodynamically significant stenosis. Internal carotid artery: 60-79% stenosis. External carotid artery: Elevated velocities and plaque noted. Vertebral artery: Patent and antegrade flow noted. Echo 10/12/21: CONCLUSIONS: - Technically difficult exam due to body habitus. - Exam indication: CAD - The left ventricle is normal in size. Left ventricular systolic function is normal. EF = 55 5% (visual est.) Grade I left ventricular diastolic dysfunction. - The right ventricle is normal in size. Right ventricular systolic function is low normal. - There are no significant valvular abnormalities. - Definity contrast could not be administered d/t unavailability of staff. - The patient has not had a prior CC echocardiographic exam for comparison. CTA Head/Neck W 10/15/21: Previously Reviewed: Atherosclerotic disease with severe narrowing of the proximal left cervical ICA. Patent intracranial arterial circulation. Right lung nodule. Suggest follow-up chest CT. Incidental Finding: Follow-up Acuity: Incidental Finding: Solid: <6 mm (solitary or multiple) Routing Code: N/A Recommendation: No imaging follow-up is recommended Time Frame: N/A Comments: If there are risk factors for lung malignancy, a follow-up chest CT exam could be obtained in 12 months MRI Report MRI BRAIN WO IVCON Exam End: 10/22/2021 10:33 AM (Final result) Narrative: * * *Final Report* * * DATE OF EXAM: Oct 22 2021 10:33AM [facility] 0294 - MRI BRAIN WO IVCON / PROCEDURE REASON: Transient cerebral ischemia, unspecified type * * * * Physician Interpretation * * * * EXAMINATION: MRI BRAIN WO IVCON CLINICAL HISTORY: TIA. TECHNIQUE: Routine noncontrast MRI protocol including diffusion images. MQ: [id number] COMPARISON: 11/28/2006 RESULT: Acute Change: There is no evidence of restricted diffusion to suggest an acute infarct. Hemorrhage: No evidence of prior parenchymal hemorrhage on the gradient echo images. Mass Lesion/ Mass Effect: No evidence of an intracranial mass or extra-axial fluid collection. No significant mass effect. Chronic Change: Scattered small patchy foci of hyperintensity are again noted in the supratentorial white matter on FLAIR and T2 which are nonspecific but likely represent mild chronic microvascular ischemia in view of the patient's chronologic age. Mild interval progression since 2006. Parenchyma: Mild generalized parenchymal volume loss which has mildly progressed since 2006. The brain parenchyma is otherwise within normal limits of signal intensity and morphology. Ventricles: Mild enlargement of the lateral and third ventricles commensurate with volume loss. Fourth ventricle remains within normal limits of size. Skull Base: Hypothalamic and pituitary region are grossly normal. Craniocervical junction is normal. No significant marrow replacement process. Vasculature: Major intracranial arterial structures, and dural venous sinuses show typical flow void, suggesting patency by spin echo criteria. Other: The visualized paranasal sinuses and mastoid air cells are clear. The orbits and extracranial soft tissues are unremarkable. Impression: IMPRESSION: Mild progression of generalized parenchymal volume loss and mild chronic supratentorial microvascular ischemic changes. Otherwise stable appearance of the brain. No evidence of acute intracranial process. Lumber Sticker: [id number] Transcribe Date/Time: Oct 22 2021 11:47A Dictated by : SHADE VILLARREAL MD This examination was interpreted and the report reviewed and electronically signed by: SHADE VILLARREAL MD on Oct 22 2021 11:50AM EST Complete Results Component Latest Ref Rng & Units 06/29/2021 Glucose 74 - 99 mg/dL 111 (H) BUN 9 - 24 mg/dL 16 Creatinine 0.73 - 1.22 mg/dL 1.26 (H) Sodium 136 - 144 mmol/L 139 Potassium 3.7 - 5.1 mmol/L 4.8 Chloride 97 - 105 mmol/L 101 CO2 22 - 30 mmol/L 29 Anion Gap 9 - 18 mmol/L 9 Calcium 8.5 - 10.2 mg/dL 9.6 eGFR- >60 eGFR-All Other Races . 57 WBC 3.70 - 11.00 k/uL 10.62 RBC 4.20 - 6.00 m/uL 4.23 Hemoglobin 13.0 - 17.0 g/dL 13.6 Hematocrit 39.0 - 51.0 % 42.6 MCV 80.0 - 100.0 fL 100.7 (H) MCH 26.0 - 34.0 pG 32.2 MCHC 30.5 - 36.0 g/dL 31.9 RDW-CV 11.5 - 15.0 % 13.1 Platelet Count 150 - 400 k/uL 272 MPV 9.0 - 12.7 fL 10.1 Absolute nRBC <0.01 k/uL <0.01 Component Latest Ref Rng & Units 05/19/2020 08/18/2020 WBC 3.70 - 11.00 k/uL 9.81 RBC 4.20 - 6.00 m/uL 4.08 (L) Hemoglobin 13.0 - 17.0 g/dL 13.1 Hematocrit 39.0 - 51.0 % 40.2 MCV 80.0 - 100.0 fL 98.5 MCH 26.0 - 34.0 pG 32.1 MCHC 30.5 - 36.0 g/dL 32.6 RDW-CV 11.5 - 15.0 % 12.6 Platelet Count 150 - 400 k/uL 252 MPV 9.0 - 12.7 fL 10.0 Neut% % 56.2 Abs Neut (ANC) 1.45 - 7.50 k/uL 5.49 Lymph% % 32.9 Abs Lymph 1.00 - 4.00 k/uL 3.23 Appling% % 6.9 Abs Appling <0.87 k/uL 0.68 Eosin% % 3.4 Abs Eosin <0.46 k/uL 0.33 Baso% % 0.6 Abs Baso <0.11 k/uL 0.06 Nucleated Reds 0 /100 WBC 0.0 Absolute nRBC <0.01 k/uL <0.01 Diff Type Auto Diff Protein, Total 6.3 - 8.0 g/dL 7.3 Albumin 3.9 - 4.9 g/dL 4.4 Calcium 8.5 - 10.2 mg/dL 9.9 Bilirubin, Total 0.2 - 1.3 mg/dL 0.3 Alkaline Phosphatase 38 - 113 U/L 107 AST 14 - 40 U/L 16 Glucose 74 - 99 mg/dL 108 (H) BUN 9 - 24 mg/dL 21 Creatinine 0.73 - 1.22 mg/dL 1.19 Sodium 136 - 144 mmol/L 137 Potassium 3.7 - 5.1 mmol/L 4.6 Chloride 97 - 105 mmol/L 102 CO2 22 - 30 mmol/L 24 Anion Gap 9 - 18 mmol/L 11 ALT 10 - 54 U/L <5 (L) eGFR- >60 eGFR-All Other Races . >60 TSH 0.270 - 4.200 uU/mL 1.110 Assessment/Plan: G25.0 Essential tremor (primary encounter diagnosis) Comment: Currently on primidone 50mg BID for management of tremor. Exam slightly improved as no tremor was noted with arms outstretched and no tremor at rest. He reports no concerns regarding medication. Will continue as previously prescribed. 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 Consult placed to physical therapy at timeof previous appointment. He did go for initial evaluation where recommendation was made to utilize walker rather than cane, however, he has not returned. He continues to use his cane at the time of appointment today. Recommend returning to physical therapy for further work on balance and stability. G45.9 Transient cerebral ischemia, unspecified type R29.810 Facial weakness R29.898 Left arm weakness Z86.73 History of stroke Comment: Pt previously reporting multiple episodes of L facial heaviness and numbness since July. Episodes lasting one minute to ten minutes and associated with L arm weakness. Since his time of his previous appointment he reports that symptoms have recurred with most recent episode happening yesterday and involving left facial weakness for fifteen seconds. He is uncertain how many times sincehis previous appointment this has occurred. Of note, since episodes began he has had MRI of brain and CTA of head/neck. MRI unremarkable, however, severe narrowing of L cervical ICA noted, no significant intracranial stenosis. He has been following with vascular surgery regularly; last appointment on 02/19. He remains on ASA, Plavix, and statin. Also wore outpatient media monitor which noted onerun of vtach and three episodes of SVT. Appt with cardiology scheduled for April. As episodes continue to occur despite compliance with medications and without significant intracranial findings, con cern for alternative etiology. On discussion pt reports hx of seizures and at this time will order EEG to evaluate for possible seizure activity contributing to symptoms. In interim recommend continuing ASA, Plavix, and statin as previous prescribed. Continue BP and BG management and follow up withPCP. Encouraged smoking cessation. Discussed importance of calling 911 and immediately proceeding to ED if symptoms should recur. If episodes continue to occur may consider consult to cerebrovascular. Office Visit on 02/21/22 EPIL EEG ROUTINE Jocelyne Mcknight APRN.JULIO I spent a total of 40 minutes on the date of the service which included preparing to see the patient, [id number] patient care, completing clinical documentation, obtaining and/or reviewing separately obtained history, performing a medically appropriate examination, counseling and educating the pat ient/family/caregiver and ordering medications, tests, or procedures. documented in this encounterOur [facility] Miscellaneous Notes* Telephone Encounter - Ivana Marx LPN - 01/30/2022 3:35 PM EDT Patient has been identified by name and date of : Yes Pharmacy phones for refill(s): Pending Prescriptions Disp Refills SERTRALINE 100 MG TABLET 90 tablet 3 Sig: Take 1 tablet by mouth once daily. EDUARDO: No Date of last office visit in primary care: 01/14/22 Last 2 Encounter Wt Readings: Date: Wt: 01/14/2022 84.2 kg (185 lb 9.6 oz) 11/08/2021 84.8 kg (187 lb) Previous labs/tests for medication: Not applicable Please advise. Thank you. Ivana Marx LPN documented in this encounterOur [facility] [place] Miscellaneous Notes* Telephone Encounter - Milad Kowalski LPN - 01/26/2022 12:03 PM EDT Patient has been identified by name and date of : Yes Patient phones for refill(s): Pending Prescriptions Disp Refills ALBUTEROL SULFATE HFA 90 MCG/ACTUATION AEROSOL INHALER 18 g 5 Sig: INHALE 2 PUFFS BY MOUTH EVERY 4 HOURS NEEDED FOR WHEEZING/SHORTNESS OF BREATH EDUARDO: No Date of last office visit in primary care: 01/14/2022 Yearly: 07/04/2022 Last 2 Encounter Wt Readings: Date: Wt: 01/14/2022 84.2 kg (185 lb 9.6 oz) 11/08/2021 84.8 kg (187 lb) Previous labs/tests for medication: Not applicable Please advise. Thank you. Milad Kowalski LPN * Telephone Encounter - Clark Allen - 01/26/2022 10:10 AM EDT Patient has been identified by name and date of : Yes Last office visit in this department: Visit date not found RX INSTRUCTIONS: Patient aware RX will be sent to pharmacy. No need to notify patient. Patient phones requesting refills as follows: Pending Prescriptions Disp Refills ALBUTEROL SULFATE HFA 90 MCG/ACTUATION AEROSOL INHALER 18 g 5 Sig: INHALE 2 PUFFS BY MOUTH EVERY 4 HOURS NEEDED FOR WHEEZING/SHORTNESS OF BREATH EDUARDO: No Please review and advise. Clark Allen documented in this encounterOur Lady Of [facility]06-[facility] Miscellaneous Notes* Telephone Encounter - Milad Kowalski LPN - 01/22/2022 11:27 AM EDT Patient notified. Milad Kowalski LPN * Telephone Encounter - Yoav Sutherland Ma - 01/21/2022 9:33 AM EDT Voicemail not set up . Will try again later. Yoav Sutherland Ma * Telephone Encounter - Yoav [place] Ma - 01/21/2022 9:33 AM EDT ----- Message from Royce Carroll MD sent at 01/19/2022 11:12 AM EDT ----- DM controlled. Continue current management. documented in this encounterOur [facility] Instructions* Patient Instructions* Royce Carroll MD - 01/14/2022 1:06 PM EDT DO STOOL TEST. DO NON FASTING BLOOD WORK TODAY. FASTING BLOOD WORK IN 6 MONTHS. documented in this encounterOur [facility]22 History of Present illness Narrative* Royce Carroll MD - 01/14/2022 12:46 PM EDT This note was created using Relcy. Subjective Kam Greenberg is a 71 year old male. He had no concerns. His diabetes mellitus and hypertension were controlled. Spiriva was effective for his COPD. He followed with neurology and vascular for late effects of CVA and carotid disease. He continued to smoke. Review of Systems ACTIVE PROBLEM LIST Hyperlipemia Coronary Atherosclerosis Generalized Osteoarthrosis, Unspecified Site Degeneration of Thoracolumbar Intervertebral Disc Essential Hypertension Late Effects of Cva (Cerebrovascular Accident) Unspecified Chronic Bronchitis (Hcc) Type 2 Diabetes Mellitus With Diabetic Mononeuropathy, Without Long-Term Current Use of Insulin (Hcc) Tobacco Use Disorder Rhinitis Anxiety Disorder S/P Coronary Artery Stent Placement S/P Cabg X 3 Essential Tremor Stenosis of Left Carotid Artery Stage 3a Chronic Kidney Disease (Hcc) Type 2 Diabetes Mellitus With Diabetic Peripheral Angiopathy Without Gangrene, Without Long-Term Current Use of Insulin (Hcc) At Risk for Falls Lung Nodule < 6cm On CT Abnormality of Gait Lumbar Spondylosis History of Stroke Social History Tobacco Use Smoking status: Current Every Day Smoker Packs/day: 1.00 Years: 47.00 Pack years: 47.00 Types: Cigarettes Start date: 1967 Last attempt to quit: 07/21/2021 Years since quittin.4 Smokeless tobacco: Never Used Tobacco comment: 4 cigarrettes per day 01/14/22 Vaping Use Vaping Use: Never used Substance Use Topics Alcohol use: Not Currently Comment: rare NAB Drug use: No Current Outpatient Medications Medication Sig primidone (MYSOLINE) 50 mg tablet TAKE 1 TABLET BY MOUTH TWICE A DAY sertraline (ZOLOFT) 100 mg tablet Take 1 tablet by mouth once daily. saw/vit E/sod miguel/lyc/beta/pyg (PROSTATE HEALTH ORAL) Take 3 tablets by mouth once daily. multivit with minerals/lutein (MULTI-ISABELLE 50 AND OVER ORAL) Take 1 tablet by mouth once daily. TURMERIC ORAL Take 1 tablet by mouth twice daily. amLODIPine (NORVASC) 5 mg tablet Take 1 tablet by mouth once daily. atorvastatin (LIPITOR) 40 mg tablet Take 1 tablet by mouth daily at bedtime. metoprolol tartrate, short acting, (LOPRESSOR) 50 mg tablet Take 1 tablet by mouth twice daily. metFORMIN (GLUCOPHAGE) 1,000 mg tablet Take 1 tablet by mouth twice daily. clopidogrel (PLAVIX) 75 mg tablet Take 1 tablet by mouth once daily. albuterol HFA (VENTOLIN HFA) 90 mcg/actuation inhaler INHALE 2 PUFFS BY MOUTH EVERY 4 HOURS NEEDED FOR WHEEZING/SHORTNESS OF BREATH tiotropium (SPIRIVA WITH HANDIHALER) 18 mcg inhalation capsule Inhale 1 capsule as instructed once daily. Use with handihaler. blood sugar diagnostic (BLOOD GLUCOSE TEST) test strip Check blood glucose once daily. Dx: E11.49, Non-Insulin dependent. nitroglycerin sublingual (NITROSTAT) 0.4 mg SL tablet Dissolve 1 tablet under the tongue every 5 minutes as needed. Blood-Glucose Meter monitoring kit Glucose Meter of Choice - Kit - Dx: Other DM Code E11.49 fluticasone (FLONASE) 50 mcg/actuation nasal spray Use 1 [place] in each nostril twice daily. aspirin, enteric coated (ADULT LOW DOSE ASPIRIN) 81 mg EC tablet Take 1 tablet by mouth once daily. No current facility-administered medications for this visit. Objective BP 118/52 (BP Site: Left Arm, BP Position: Sitting, BP Cuff Size: Large Adult) Pulse 68 Temp (!) 35.8 C (96.4 F) (Temporal Artery) Resp 24 Wt 84.2 kg (185 lb 9.6 oz) BMI 24.59 kg/m Physical Exam Constitutional: General: He is not in acute distress. Cardiovascular: Rate and Rhythm: Normal rate and regular rhythm. Heart sounds: No murmur heard. No gallop. Pulmonary: Effort: Pulmonary effort is normal. Breath sounds: Normal breath sounds. Musculoskeletal: Right lower leg: No edema. Left lower leg: No edema. Neurological: Mental Status: He is alert. Gait: Gait abnormal. Comments: Ambulatory with cane. Psychiatric: Mood and Affect: Mood normal. Assessment and Plan 1. Type 2 diabetes mellitus with diabetic peripheral angiopathy without gangrene, without long-termcurrent use of insulin ([facility]) - ICD9: 250.70, 443.81, ICD10: E11.51 (primary diagnosis) Controlled. - Continue current medications - CONSULT TO OPHTHALMOLOGY - CBC - COMP METABOLIC PANEL - LIPID PANEL BASIC - HGB A1C - ALBUMIN/CREAT RATIO RND UR 2. Chronic bronchitis, unspecified chronic bronchitis type (HCC) - ICD9: 491.9, ICD10: J42 Stable. Smoking cessation recommended. - TIOTROPIUM BROMIDE 18 MCG CAPSULE WITH INHALATION DEVICE 3. Abnormality of gait - ICD9: 781.2, ICD10: R26.9 Stable. 4. Tobacco use disorder - ICD9: 305.1, ICD10: F17.200 - Cessation encouraged. Royce Carroll MD documented in this encounterOur [facility]06-[facility]22 Miscellaneous Notes* Telephone Encounter - Evy Simon RN - 01/03/2022 11:56 AM EDT Provider: Horace Mcknight [facility] pharmacy requesting refill via [employer] . Please E-Scribe Last OV: 11-08-21 with Horace Mcknight Future OV: 02-21-22 with Horace Mcknight Last prescribed: 10-04-21 Pending Prescriptions Disp Refills PRIMIDONE 50 MG TABLET 60 tablet 2 Sig: TAKE 1 TABLET BY MOUTH TWICE A DAY EDUARDO: Yes Request sent to provider to review Evy Simon RN documented in this encounterOur [facility] Of [facility] History of Present illness Narrative* Silvina Pitts MA - 01/01/2022 8:51 AM EDT POPULATION HEALTH NAVIGATION OUTREACH Action/FYI Due for: FOBT Dilated Retinal Exam (outside provider) A1c (ordered) Spoke with patient; declined Colonoscopy/FOBT Will call his eye doctor for an appt (outside provider) Will visit lab for A1c that was previously not processed by lab (ordered) Declined MyChart Pt identified by name and : YES, via phone Outreach Outcome/Action Spoke to patient or caregiver: Patient declined Did you use a PCP flex slot to schedule this appointment? N/A Reason for Outreach Care Gap or Scheduling/Wellness visits Payer: Payor: [employer] BL[employer] BLUE [employer]IELD / Plan: [employer] HMO / Product Type: HMO / Care Gap Reviewed:: Colorectal Cancer Screening Diabetic Eye Exam HBA1C Reminder: Reminder note to check Health Maintenance for items below Health Maintenance items due: SHINGRIX VACCINE(1 of 2) Never done COLORECTAL CANCER SCREENING due on 10/02/2019 BP CONTROLLED (<130/80) due on 01/02/2020 ADVANCE DIRECTIVE DISCUSSION Never done DILATED RETINAL EXAM due on 08/04/2021 HBA1C due on 10/10/2021 DTAP,TDAP,TD(2 - Td or Tdap) due on 11/19/2021 COVID-19 VACCINE(4 - Booster for Moderna series) due on 11/28/2021 Message Sent to Practice: No Navigation Signature: Silvina Pitts MA January 01, 2022 8:52 AM documented in this [facility]04-29-2022 Miscellaneous Notes* Telephone Encounter - Evy Gallegos RN - 11/23/2021 4:17 PM EDT Opened In Error documented in this [facility]04-25-2022 Miscellaneous Notes* Telephone Encounter - Silvina Rosario Pss - 11/19/2021 10:58 AM EDT Primidone 50 mg was ordered on 10/04/21 with two refills. documented in this [facility]04-20-2022 Miscellaneous Notes* Telephone Encounter - Renae Rae LPN - 11/14/2021 4:51 PM EDT Patient aware of results, agrees with having consult for cardiology placed. Patient requesting PSS to call and assist in scheduling cardiology appointment after consult order placed. Renae Rae LPN * Telephone Encounter - Renae Rae LPN - 11/14/2021 4:48 PM EDT ----- Message from Jocelyne Mcknight APRN.WINERY WORKER sent at 11/13/2021 12:22 PM EDT ----- Zio with report of one episode of vtach and three episodes of SVT (abnormal/fast heart beats). Would recommend follow up with cardiology. If patient does not have guest request runner I can place consult. documented in this encounterOur [facility]04-[facility] History of Past illness Narrative* Problem Noted Date Resolved Date Lumbar spondylosis 11/13/2021 01/15/2023 History of stroke 11/13/2021 01/15/2023 Lung nodule < 6cm on CT 10/17/2021 07/04/20 Adhesive capsulitis of shoulder 10/19/2010 11/20/2011 Other acquired deformity of toe 03/23/2009 09/29/2017 Dermatophytosis of nail 03/23/2009 09/30/19 18 Polyneuropathy in diabetes(357.2) 11/07/2005 11/22/2013 Peripheral vascular disease 11/06/200510/26 Type II or unspecified type diabetes mellitus without mention of complication, uncontrolled 10/21/2005 11/22/2013 Dysmetabolic syndrome X 11/08/19 06 Esophageal reflux 09/29/2017 documented as of this encounter (statuses as of 01/16/2023) [facility] History of Past illness Narrative* Problem Noted Date Diagnosed Date Resolved Date Lumbar spondylosis 11/13/2021 History of stroke 11/13/2021 01/15/2023 Lung nodule < 6cm on CT 10/17/202102/2022 Adhesive capsulitis of shoulder 10/19/2010 11/20/2011 Other acquired deformity of toe 03/23/2009 09/29/2017 Dermatophytosis of nail 03/23/200911/2017 Polyneuropathy in diabetes(357.2) 11/07/2005 11/22/2013 Peripheral vascular disease 11/06/2005 11/13/2020 Type II or unspecified type diabetes mellitus without mention of complication, uncontrolled 10/21/2005 11/22/2013 Dysmetabolic syndrome X 04/09/2005 Esophageal reflux 09/29/2017 documented as of this encounter (statuses as of 02/04/2023) [facility] History of Past illness Narrative* Problem Noted Date Diagnosed Date Resolved Date Lumbar spondylosis 11/13/2021 3 History of stroke 11/13/2021 01/15/2023 Lung nodule < 6cm on CT 10/17/2021 12/0 02/2022 Adhesive capsulitis of shoulder 10/19/2010 11/20/2011 Other acquired deformity of toe 03/23/2009 09/29/2017 Dermatophytosis of nail 03/23/20090 11/2017 Polyneuropathy in diabetes(357.2) 11/07/2005 11/22/2013 Peripheral vascular disease 11/06/2005 11/13/2020 Type II or unspecified type diabetes mellitus without mention of complication, uncontrolled 10/21/2005 11/22/2013 Dysmetabolic syndrome X 0409/2005 Esophageal reflux 09/29/2017 documented as of this encounter (statuses as of 02/16/2023) [address]19-2022 History of Past illness Narrative* Problem Noted Date Diagnosed Date Resolved Date Lumbar spondylosis 11/13/2021 3 History of stroke 11/13/2021 01/15/2023 Lung nodule < 6cm on CT 10/17/2021 12/0 02/2022 Adhesive capsulitis of shoulder 10/19/2010 11/20/2011 Other acquired deformity of toe 03/23/2009 09/29/2017 Dermatophytosis of nail 03/23/2009 030 11/2017 Polyneuropathy in diabetes(357.2) 11/07/2005 11/22/2013 Peripheral vascular disease 11/06/2005 11/13/2020 Type II or unspecified type diabetes mellitus without mention of complication, uncontrolled 10/21/2005 11/22/2013 Dysmetabolic syndrome X 04/09/2005 Esophageal reflux 09/29/2017 documented as of this encounter (statuses as of 02/20/2023) [address]19-[address]22 History of Past illness Narrative* Problem Noted Date Diagnosed Date Resolved Date Lumbar spondylosis 11/13/2021 3 History of stroke 11/13/2021 01/15/2023 Lung nodule < 6cm on CT 10/17/2021 120 02/2022 Adhesive capsulitis of shoulder 10/19/2010 11/20/2011 Other acquired deformity of toe 03/23/2009 09/29/2017 Dermatophytosis of nail 03/23/2009 030 11/2017 Polyneuropathy in diabetes(357.2) 11/07/2005 11/22/2013 Peripheral vascular disease 11/06/2005 11/13/2020 Type II or unspecified type diabetes mellitus without mention of complication, uncontrolled 10/21/2005 11/22/2013 Dysmetabolic syndrome X 10/26 Esophageal reflux 09/29/2017 documented as of this encounter (statuses as of 02/26/2023) [address]19-2022 History of Past illness Narrative* Problem Noted Date Diagnosed Date Resolved Date Lumbar spondylosis 11/13/2021 3 History of stroke 11/13/2021 01/15/2023 Lung nodule < 6cm on CT 10/17/20210 02/2022 Adhesive capsulitis of shoulder 10/19/2010 11/20/2011 Other acquired deformity of toe 03/23/2009 09/29/2017 Dermatophytosis of nail 03/23/20090 11/2017 Polyneuropathy in diabetes(357.2) 11/07/2005 11/22/2013 Peripheral vascular disease 11/06/2005 11/13/2020 Type II or unspecified type diabetes mellitus without mention of complication, uncontrolled 10/21/2005 11/22/2013 Dysmetabolic syndrome X 10/26 Esophageal reflux 09/29/2017 documented as of this encounter (statuses as of 04/16/2023) [address]19-[address]22 History of Past illness Narrative* Problem Noted Date Diagnosed Date Resolved Date Lumbar spondylosis 11/13/2021 3 History of stroke 11/13/2021 01/15/2023 Lung nodule < 6cm on CT 10/17/2021 12/0 02/2022 Adhesive capsulitis of shoulder 10/19/2010 11/20/2011 Other acquired deformity of toe 03/23/2009 09/29/2017 Dermatophytosis of nail 03/23/20090 11/2017 Polyneuropathy in diabetes(357.2) 11/07/2005 11/22/2013 Peripheral vascular disease 11/06/2005 11/13/2020 Type II or unspecified type diabetes mellitus without mention of complication, uncontrolled 10/21/2005 11/22/2013 Dysmetabolic syndrome X 10/26 Esophageal reflux 09/29/2017 documented as of this encounter (statuses as of 05/03/2023) [facility] History of Past illness Narrative* Problem Noted Date Diagnosed Date Resolved Date Lumbar spondylosis 11/13/2021 History of stroke 11/13/2021 01/15/2023 Lung nodule < 6cm on CT 10/17/2021 120 02/2022 Tobacco use disorder 05/25/2012 023 Adhesive capsulitis of shoulder 10/19/2010 11/20/2011 Other acquired deformity of toe 03/23/2009 09/29/2017 Dermatophytosis of nail 03/23/200911/2017 Polyneuropathy in diabetes(357.2) 11/07/2005 11/22/2013 Peripheral vascular disease 11/06/2005 11/13/2020 Type II or unspecified type diabetes mellitus without mention of complication, uncontrolled 10/21/2005 11/22/2013 Dysmetabolic syndrome X 10/26 Esophageal reflux 09/29/2017 documented as of this encounter (statuses as of 06/01/2023) [facility] History of Present illness Narrative* Carmen Jones, PT - 11/13/2021 9:45 AM EDT Episode Visit Count: 1 Therapist That Will Oversee The Plan Of Care: Carmen Jones Start of Care Date: 11/13/21 Onset Date: 08/15/21 Plan of Care Certification Date: 11/13/21 Next Certification Due Date: 12/18/21 Patient Identified by Name and Date of : Yes REHABILITATION AND SPORTS THERAPY PHYSICAL THERAPY EVALUATION PLAN OF CARE: Assessment: Kam Greenberg presents with diagnosis of osteoarthritis of the lumbar spine, abnormality of gait, and history of CVA that interferes with walking in the house . He presents with impairments in ADL's, balance, flexibility, gait, independence in exercise, joint mobility, overall function, patient reported outcome measures, range of motion, strength and functional performance testing indicates pt. Is at a high risk for falls. Prognosis for therapy is Fair due to: memory deficits;poor historian;history of poor adherence with medical recommendations;learning impairments;limited tolerance to activity;multiple co- morbidities;clinical presentation;chronic nature of impairments;poor understanding of deficits;Prognosis may be improved by good support system/ coping skills. He will benefit from skilled therapy services to meet the goals established for this plan of care as noted below. Goals for Episode of Care: created on 11/13/21 through 12/25/21 Patient will report no falls. Improve score on Timed Up and Go Test to 20 Seconds or less using a straight cane to reflect decreased fall risk. Improve score on 30 Second Chair Stand to 8 reps or more repetitions to reflect decreased fall risk. [place] in home exercise program including cardiovascular exercise. Patient will demonstrate independent and proper use of assisstive device to allow for improved walking quality and safety therefore reducing the risk of falls. Patient will be able to corect postrual deviations independently in order to improve postural alignment of trunk during transfers, ambulation, standing and functional activities. Patient Goals: Improve balance to decrease risk Planned Interventions, Frequency, and Duration: Current Frequency: 2x/week Duration: 6 weeks Total Number of Visits Planned: 12 Planned Treatment Interventions: Therapeutic exercise (21660);Neuromuscular re- education (35232);Self-alf management (81021);Gait Training (88197);Patient/Family/Caregiver Education;Therapeuticactivities (38731) PLAN FOR NEXT VISIT: Assess static standing balance. Patient demonstrates good understanding of plan of care and treatment. The above goals and plan of care were discussed and agreed upon by patient/family. SUBJECTIVE: Kam Greenberg is a 71 year old male seen today for Patient Goals: Improve balance to decrease risk Functional Limitations: walking in the house Prior Level of Function: Required assistance Required assistance with: ADL's Relevant History Past Relevant Medical Conditions: Cerebral Vascular Accident;Cardiac;Anxiety ([place], L side weakness) Past Relevant Surgical Conditions: Cardiac (CABGx3) Preferred Language: Georgian Home Environment Patient Lives With: Spouse Assistance Available: 24 Hour Home Type: [place] Entry To Home: Stairs;With Rail (bilateral) Number Of Stairs Into Home: 5 Tub/Shower Type: grab bars, assists pt. Equipment Owned: Cane;Rollator;Standard Walker;Grab Bars-Shower Intake Information: Prescription present Falls Interview: Two or more falls in the last year;Uses an assistive device Falls Intervention: Instructed patient on safety and use of assistive device and awareness in regards to falls prevention.;More thorough falls assessment to be performed Red Flags Vertebral Fracture Red Flags: Age >70 Vertebral Fracture Clinical Reasoning: Proceed with caution due to the above (1- 2) risk factors Abdominal Aortic Aneurysm Red Flags: Age >60 Abdominal Aortic Aneurysm Clinical Reasoning: Proceed with caution Cancer Red Flags: Age >50 or <20 Cancer Clinical Reasoning: Proceed with caution Infection Clinical Reasoning: Proceed with caution Cauda Equina Syndrome Clinical Reasoning: Proceed with caution Red Flags - Cervical Cancer Red Flags: Age >50 or <20 Cancer Clinical Reasoning: Proceed with caution Infection Clinical Reasoning: Proceed with caution Spine History Symptoms Since Onset: Worsening Pain: Pain Pain Level: 0 Pain Location: Back Post Treatment Pain Post Treatment Pain Level: 0 Post Treatment Pain Location: Back PROMIS Scales T-scores: mean of general population = 50. 5 points is clinically meaningfully difference Percentiles provide an indication of how the patient's score ranks in relation to the general population. Higher percentile rankings indicate better function/quality of life. 50th percentile is the average of the general population and indicates half of respondents had a worse score. T-scores: mean of general population = 50. 5 points is clinically meaningfully difference Percentiles provide an indication of how the patient's score ranks in relation to the general population. Higher percentile rankings indicate better function/quality of life. 50th percentile is the average of the general population and indicates half of respondents had a worse score. OBJECTIVE MEASURES WITH LEVEL OF FUNCTION: Cognition Cognition: Attention Deficits;Safety Judgment;Memory Deficits;Follows Commands Follows Commands: Cueing Needed Attention Deficits: Difficulty maintaining selective or sustained attention Safety Judgment: Needs cuing Vision Vision Deficits: Wears corrective lenses Posture / Alignment Posture: Forward head;Increased thoracic kyphosis;Decreased lumbar lordosis Sitting Posture: Increased thoracic kyphosis Sensation - Lumbar Sensation: Grossly Intact LE Strength R Hip Flexion (L2): 3/5 R Knee Extension (L3): 2+/5 R Ankle Dorsiflexion (L4): 3+/5 L Hip Flexion (L2): 3/5 L Knee Extension (L3): 2+/5 L Ankle Dorsiflexion (L4): 3+/5 Functional Strength Functional Strength: Sit<>stand Mobility Sit To Stand: Stand By Assistance (multiple attempts, 3x with BUE arm rests) Gait Gait: Contact Guard Assistance Gait Distance (feet): 30 Gait Device: Cane Gait Deviations: General Deviations General Deviations/Observations: Step length decreased;Trunk Control Decreased;Improper distancing from assistive device;Visual scanning/environmental awareness decreased;Non-functional gait speed;Loss of Balance;Lateral sway increased;Flexed trunk posture;Difficulty changing direction/turning;Arm swing decreased Gait Observation: pt. reaches for PT and harding with TUG test Functional Performance Test Results Assistive Device: Cane 30 Second Chair Stand Test: 4 reps Timed Up and Go (sec): 37 sec (with straight cane) Education: Education Learning Preferences: Demonstration;Explanation;Performance Barriers: Cognitive Limitations Learning/educational needs: Posture;Plan of Care;Safety;Home exercise program;Gait Training Education Provided: Yes, see treatment interventions for education provided Education Provided To: Patient Education Mode/Type: Demonstration;Explanation/Discussion;Literature/Printed Materials;Performance Response to Education/Teach Back: No Evidence Of Learning TREATMENT: PT Treatment Interventions: Self-Retirement Management Evaluation Self-Retirement Management: 1: *PT strongly recommends that pt. use a rollator or walker to amb in the home and in the communityu 2: *education regarding the risks associated with decreased safety, and decreased mobilty as a result of not using the appropriate assistive device, pt. may restore activity tolerance and ambulate with greater frequency if he uses a more appropriate AD 3: *pt. education regarding balance and strength testing scores, normal values for 71 yo male, and discussed goals set by PT and pt. agrees to these goals. Skilled Intervention: Skilled judgment in the selection of proper modification for activity of daily living/home management based on clinical presentation, deficits, and needs. Physical assistance was provided during education for modifications and patient safety. Educated the patient regarding recommendations and provided written instruction to facilitate compliance. Reviewed patient specific diagnosis in relation to activities of daily living/home management. Activity progression based on professional judgement. Maximum verbal cues for maintaining neutral spine alignment. Reviewed and educated patient on additions/changes for home program as noted above with an (*). Correct performance of home program was facilitated with verbal, visual and tactile cueing. Billing * Evaluation Moderate Complexity: 1 Unit Self-Care/Home Management Treatment Minutes: 15 Total Treatment Time Minutes (timed/untimed): 45 Carmen Jones PT documented in this encounterOur [facility] Miscellaneous Notes* Telephone Encounter - Ciera Fernandez RN - 11/13/2021 8:25 AM EDT Patient reports he is out of medication. Today is day 2 of no medication, and even if pcp sends today, cannot pick it up until tomorrow, after he gets his check. Patient has been identified by name and date of : Yes Patient phones for refill(s): Pending Prescriptions Disp Refills SERTRALINE 100 MG TABLET 30 tablet 11 Sig: Take 1 tablet by mouth once daily. EDUARDO: No Date of last office visit with pcp: 06-29-21. Next appt: 01-14-22 Last 2 Encounter Wt Readings: Date: Wt: 11/08/2021 84.8 kg (187 lb) 10/30/2021 86.2 kg (190 lb) Previous labs/tests for medication: Blood Pressure: BUN (mg/dL) Date Value 06/29/2021 16 Sodium (mmol/L) Date Value 06/29/2021 139 Last 1 Encounter BP Readings: Date: BP: 11/08/2021 122/66 Liver Function: ALT (U/L) Date Value 04/12/2021 5 AST (U/L) Date Value 04/12/2021 16 Please advise. Thank you. Ciera Fernandez RN documented in this encounterOur [facility] History of Present illness Narrative* Sharon Limon DO - 10/30/2021 9:07 AM EDT Images from the original note were not included. [facility] [place] [facility] OF V[facility]ULAR SURGERY OUTPATIENT VISIT DATE October 30, 2021 OUTPATIENT VISIT TYPE CONSULTATION SERVICE DATE: 10/30/2021 SERVICE TIME: 9:08 AM PRIMARY CARE PHYSICIAN: Royce Carroll MD REFERRING PROVIDER: Jocelyne Mcknight [address] [facility] [id number] Consult requested for an opinion regarding the evaluation and treatment of the above. My final impression and recommendations will be communicated back to the requesting physician by way of the shared medical record or letter via US mail. CHIEF COMPLAINT: Carotid artery stenosis HISTORY OF PRESENT ILLNESS: Vascular consultation at the request of Dr. Jocelyne Mcknight. A copy of this consultation note will be provided to the requesting physician by way of shared Medical record or letter to requesting physician via US mail. Mr. Greenberg is a 71 year old male who is seen today for carotid artery stenosis. He has a history of strokes in the past- reports 6 mild strokes. States last one was the worst- affecting his short term memory. Denies monocular vision loss recently- states years ago he lost vision however was having issues with high blood pressure. Right handed. 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 History of polio in 89. He has a history of tremors and was told they were secondary to polio. Ashis has gotten older, his tremors have worsened in both hands. He notices worse on the left than right. Taking medications for his tremors. 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 11/06/2005 Degeneration of thoracolumbar intervertebral disc 11/06/2005 compression fractures Dysmetabolic syndrome X Esophageal reflux Essential tremor 11/23/2015 Generalized osteoarthrosis, unspecified site 10/16/2005 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 CVA (cerebrovascular accident) 03/17/2007 Left arm weakness CO (myocardial infarction) ([facility]) 1999 Other and unspecified hyperlipidemia Peripheral vascular disease (HCC) 11/06/2005 Polyneuropathy in diabetes(357.2) 11/07/2005 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 Polio RPR 1ST INGUN HRNA AGE 6 YRS/> REDUCIBLE 1957 Hernia repair, inguinal, right TRANSCATH STENT INIT VESSEL,PERCUT MARKUS to SVG to RCA & MARKUS to SVG to OM SOCIAL HISTORY: Social History Tobacco Use Smoking status: Current Every Day Smoker Packs/day: 1.00 Years: 47.00 Pack years: 47.00 Types: Cigarettes Start date: 1967 Last attempt to quit: 07/21/2021 Years since quittin.2 Smokeless tobacco: Never Used Tobacco comment: 4-5 cigarettes/day in 2020. 10/30/21 smokes 1 cig a day Vaping Use Vaping Use: Never used Substance Use Topics Alcohol use: Not Currently Comment: rare NAB Drug use: No FAMILY HISTORY Problem Relation Age of Onset other (Brain Ca) Mother other (CVA) Father , aneurysm other (CO) Father other (Other) Brother natural causes. Cancer Son , testicular ca None Brother None Brother MEDICATIONS: saw/vit E/sod miguel/lyc/beta/pyg (PROSTATE HEALTH ORAL) Take 3 tablets by mouth once daily. multivit with minerals/lutein (MULTI-ISABELLE 50 AND OVER ORAL) Take 1 tablet by mouth once daily. TURMERIC ORAL Take 1 tablet by mouth twice daily. amLODIPine (NORVASC) 5 mg tablet Take 1 tablet by mouth once daily. atorvastatin (LIPITOR) 40 mg tablet Take 1 tablet by mouth daily at bedtime. metoprolol tartrate, short acting, (LOPRESSOR) 50 mg tablet Take 1 tablet by mouth twice daily. metFORMIN (GLUCOPHAGE) 1,000 mg tablet Take 1 tablet by mouth twice daily. primidone (MYSOLINE) 50 mg tablet Take 1 tablet by mouth twice daily. clopidogrel (PLAVIX) 75 mg tablet Take 1 tablet by mouth once daily. albuterol HFA (VENTOLIN HFA) 90 mcg/actuation inhaler INHALE 2 PUFFS BY MOUTH EVERY 4 HOURS NEEDED FOR WHEEZING/SHORTNESS OF BREATH tiotropium (SPIRIVA WITH HANDIHALER) 18 mcg inhalation capsule Inhale 1 capsule as instructed once daily. Use with handihaler. blood sugar diagnostic (BLOOD GLUCOSE TEST) test strip Check blood glucose once daily. Dx: E11.49, Non-Insulin dependent. nitroglycerin sublingual (NITROSTAT) 0.4 mg SL tablet Dissolve 1 tablet under the tongue every 5 minutes as needed. sertraline (ZOLOFT) 100 mg tablet Take 1 tablet by mouth once daily. Blood-Glucose Meter monitoring kit Glucose Meter of Choice - Kit - Dx: Other DM Code E11.49 fluticasone (FLONASE) 50 mcg/actuation nasal spray Use 1 [place] in each nostril twice daily. aspirin, enteric coated (ADULT LOW DOSE ASPIRIN) 81 mg EC tablet Take 1 tablet by mouth once daily. ALLERGIES: ALLERGIES Allergen Reactions Lisinopril Angioedema Morphine Shortness of Breath rapid heart rate Oysters GI Upset Tylenol [Acetaminop* Dystonia flushed, cold sweats, shakey REVIEW of SYSTEM: Constitutional: No weight loss, malaise or fevers. HEENT: Negative for frequent or significant headaches Respiratory: Negative for cough, wheezing, or shortness of breath Cardiovascular: Negative for chest pain, leg swelling or palpitations Gatrointestinal: Negative for abdominal discomfort, blood in stools or black stools or change in bowel habits Genitourinary: No history of dysuria, frequency, or incontinence Musculoskeletal: Negative for joint pain or swelling, back pain or muscle pain Endocrine: Negative for cold or heat intolerance, polyuria, polydipsia and goiter Hematology/Lymphatic: Negative for prolonged bleeding, bruising easily or swollen nodes Neurologic: Positive for tremor Integumentary: Negative for lesions, rash, and itching. PHYSICAL EXAM: VITALS: BP 140/64 Pulse 76 Ht 6' .84 (1.85m) Wt 190 lb (86.2kg) SpO2 94% BMI 25.18 kg/(m^2). General: Alert and oriented Integumentary: Normal color, no rash, no lesions. HEENT: EOM, pupils equal, round and reactive., Carotid bruit, bilateral Cardiovascular: Pulse regular. Lungs: Normal breath sounds, no wheezes or crackles. Abdomen: Not examined Extremities: No deformity, no edema or tenderness, no joint swelling or clubbing. Neurological: Normal cognition and motor skills. Vascular: Radial Pulse Right: Normal - Left: Normal Diagnostic tests reviewed for today's visit: Most recent labs Most recent imaging IMPRESSION: Mr. Greenberg is a 71 year old male Carotid artery stenosis and history of stroke in the past . PLAN and RECOMMENDATIONS: Continue Medical Management Continue blood pressure and cholesterol control Recommend carotid duplex and follow up after testing Medical Decision Making SIGNATURE: Sharon Limon DO PATIENT NAME: Kam Greenberg DATE: October 30, 2021 TIME: 9:08 AM documented in this encounterOur [facility] Miscellaneous Notes* Telephone Encounter - Blank Dobbins LPN - 10/25/2021 11:41 AM EDT rec'd fax from [facility]. They are asking for records from office note where this monitor was ordered. This was faxed to number given. documented in this encounterOur [facility] Of [facility] [place] Miscellaneous Notes* Telephone Encounter - Deanne Bolden MA - 10/23/2021 10:12 AM EDT Spoke with patient, informed him of his results. He confirmed an understanding of what was said. No questions at this time. Deanne Bolden MA * Telephone Encounter - Deanne Bolden MA - 10/23/2021 10:10 AM EDT ----- Message from Jocelyne Mcknight APRN.WINERY WORKER sent at 10/22/2021 5:03 PM EDT ----- MRI of brain without finding of new stroke. Some mild progression of chronic changes previously seen on last MRI. Recommendations remain to monitor BP, cholesterol, smoking cessation. documented in this encounterOur Lady Of [facility] [place]-28-2022 History of Present illness Narrative* MONIQUE Vo - 10/22/2021 10:00 AM EDT Radiology Service Progress Note PATIENT NAME: Kam Greenberg DATE OF SERVICE: October 22, 2021 TIME: 10:15 AM PATIENT IDENTITY VERIFICATION COMPLETED USING TWO (2) IDENTIFIERS: Name and Date of confirmedby patient verbally and Name and Date of confirmed by identification band. FALL SCREENING: Has the patient had 2 falls in the last year or 1 fall with injury or currently using an Ambulatory Assistive Device (Walker, Cane, Wheelchair, Crutches, etc.)? Yes, Patient High Riskfor Falls What interventions were put in place to prevent falls during this visit? Yellow Falls Risk Wristband Applied and Increased Observations by Caregivers PATIENT GENDER DATA: Male PATIENT RELEVANT IMPLANT DATA REVIEWED: Yes RADIOLOGY DEPARTMENT: MR; Exam(s) Completed: Head: Routine Brain PERIPHERAL IV DATA: Not applicable SIGNED BY: MONIQUE Vo October 22, 2021 10:15 AM documented in this encounterOur [facility] [place]-2022 Miscellaneous Notes* Telephone Encounter - Evy Bird - 10/18/2021 10:28 AM EDT Spoke with patient and scheduled with Gabby De La Cruz and Dr. Limon as patient wanted to stay in the [facility]. Evy Bird * Telephone Encounter - Renae Rae LPN - 10/17/2021 4:55 PM EDT Patient aware of results and provider recommendations. Requesting PSS call him to schedule with PCPand vascular. Renae Rae LPN * Telephone Encounter - Renae Rae LPN - 10/17/2021 4:55 PM EDT ----- Message from Jocelyne Mcknight APRN.WINERY WORKER sent at 10/15/2021 6:34 PM EDT ----- CTA head/neck with finding of severe carotid narrowing on L. Would like him to see vascular (especially as he had episode of R facial heaviness). Consult placed. Imaging also with incidental finding of lung nodule. I have forwarded imaging to Dr. Blandon, however, would still recommend he follow up regarding this finding with his PCP. documented in this encounterOur Lady Of [facility] [place]-24-2022 Miscellaneous Notes* Telephone Encounter - Evy Bird - 10/18/2021 10:27 AM EDT Spoke with patient and scheduled CT Chest. Evy Bird * Telephone Encounter - Royce Carroll MD - 10/17/2021 5:46 PM EDT ASSESSMENT/PLAN: 1. Lung nodules - ICD9: 793.19, ICD10: R91.8 - CT CHEST WO IVCON Royce Carroll MD * Telephone Encounter - Clark Alejo PSS - 10/17/2021 5:33 PM EDT Can an updated Chest CT order be placed? Can you please specify W and/or WO contrast? Thank you! Clark Alejo PSS * Telephone Encounter - Milad Kowalski LPN - 10/17/2021 4:13 PM EDT PSS please contact Patient to schedule. Milad Kowalski LPN * Telephone Encounter - Milad Kowalski LPN - 10/17/2021 4:12 PM EDT ----- Message from Royce Carroll MD sent at 10/17/2021 1:40 PM EDT ----- Patient did not do lung cancer screening ordered last year. He now needs a regular chest CT withoutcontrast for incidental right lung nodule. Please call patient and schedule. ----- Message ----- From: Jocelyne Mcknight APRN.WINERY WORKER Sent: 10/15/2021 6:32 PM EDT To: MD Dr. Annita De La Rosa, Pt had CTA head/neck with incidental finding of 6mm lung nodule. Per radiology recommendation for follow up with CT chest. Appears testing ordered in 10/2020 but pt did not complete. Unsure if he willneed new order placed. Thank you! Jocelyne Mcknight APRN.WINERY WORKER documented in this encounterOur [facility] Of [facility] [place]-23-[facility] History of Past illness Narrative* Problem Noted Date Resolved Date Lung nodule < 6cm on CT 10/17/2021 07/04/20 22 Adhesive capsulitis of shoulder 10/19/2010 11/20/2011 Other acquired deformity of toe 03/23/2009 09/29/2017 Dermatophytosis of nail 03/23/2009 09/30/19 18 Polyneuropathy in diabetes(357.2) 11/07/2005 11/22/2013 Peripheral vascular disease 11/06/200510/26 Type II or unspecified type diabetes mellitus without mention of complication, uncontrolled 10/21/2005 11/22/2013 Dysmetabolic syndrome X 11/08/19 06 Esophageal reflux 09/29/2017 documented as of this encounter (statuses as of 07/04/2022) [facility] [place] History of Past illness Narrative* Problem Noted Date Resolved Date Lung nodule < 6cm on CT 10/17/2021 07/04/20 22 Adhesive capsulitis of shoulder 10/19/2010 11/20/2011 Other acquired deformity of toe 03/23/2009 09/29/2017 Dermatophytosis of nail 03/23/2009 09/30/19 18 Polyneuropathy in diabetes(357.2) 11/07/2005 11/22/2013 Peripheral vascular disease 11/06/200510/26 Type II or unspecified type diabetes mellitus without mention of complication, uncontrolled 10/21/2005 11/22/2013 Dysmetabolic syndrome X 11/08/19 06 Esophageal reflux 09/29/2017 documented as of this encounter (statuses as of 07/08/2022) [facility] [place] History of Past illness Narrative* Problem Noted Date Resolved Date Lung nodule < 6cm on CT 10/17/2021 07/04/20 22 Adhesive capsulitis of shoulder 10/19/2010 11/20/2011 Other acquired deformity of toe 03/23/2009 09/29/2017 Dermatophytosis of nail 03/23/2009 09/30/19 18 Polyneuropathy in diabetes(357.2) 11/07/2005 11/22/2013 Peripheral vascular disease 11/06/200510/26 Type II or unspecified type diabetes mellitus without mention of complication, uncontrolled 10/21/2005 11/22/2013 Dysmetabolic syndrome X 11/08/19 06 Esophageal reflux 09/29/2017 documented as of this encounter (statuses as of 07/08/2022) [facility] [place] History of Past illness Narrative* Problem Noted Date Resolved Date Lung nodule < 6cm on CT 10/17/2021 07/04/20 22 Adhesive capsulitis of shoulder 10/19/2010 11/20/2011 Other acquired deformity of toe 03/23/2009 09/29/2017 Dermatophytosis of nail 03/23/2009 09/30/19 18 Polyneuropathy in diabetes(357.2) 11/07/2005 11/22/2013 Peripheral vascular disease 11/06/200510/26 Type II or unspecified type diabetes mellitus without mention of complication, uncontrolled 10/21/2005 11/22/2013 Dysmetabolic syndrome X 11/08/19 06 Esophageal reflux 09/29/2017 documented as of this encounter (statuses as of 08/14/2022) [facility] [place] History of Past illness Narrative* Problem Noted Date Resolved Date Lung nodule < 6cm on CT 10/17/2021 07/04/20 22 Adhesive capsulitis of shoulder 10/19/2010 11/20/2011 Other acquired deformity of toe 03/23/2009 09/29/2017 Dermatophytosis of nail 03/23/2009 09/30/19 18 Polyneuropathy in diabetes(357.2) 11/07/2005 11/22/2013 Peripheral vascular disease 11/06/200510/26 Type II or unspecified type diabetes mellitus without mention of complication, uncontrolled 10/21/2005 11/22/2013 Dysmetabolic syndrome X 11/08/19 06 Esophageal reflux 09/29/2017 documented as of this encounter (statuses as of 09/17/2022) [facility] [place] History of Past illness Narrative* Problem Noted Date Resolved Date Lung nodule < 6cm on CT 10/17/2021 07/04/20 22 Adhesive capsulitis of shoulder 10/19/2010 11/20/2011 Other acquired deformity of toe 03/23/2009 09/29/2017 Dermatophytosis of nail 03/23/2009 09/30/19 18 Polyneuropathy in diabetes(357.2) 11/07/2005 11/22/2013 Peripheral vascular disease 11/06/200510/26 Type II or unspecified type diabetes mellitus without mention of complication, uncontrolled 10/21/2005 11/22/2013 Dysmetabolic syndrome X 11/08/19 06 Esophageal reflux 09/29/2017 documented as of this encounter (statuses as of 10/14/2022) [facility] [place] History of Past illness Narrative* Problem Noted Date Resolved Date Lung nodule < 6cm on CT 10/17/2021 07/04/20 22 Adhesive capsulitis of shoulder 10/19/2010 11/20/2011 Other acquired deformity of toe 03/23/2009 09/29/2017 Dermatophytosis of nail 03/23/2009 09/30/19 18 Polyneuropathy in diabetes(357.2) 11/07/2005 11/22/2013 Peripheral vascular disease 11/06/200510/26 Type II or unspecified type diabetes mellitus without mention of complication, uncontrolled 10/21/2005 11/22/2013 Dysmetabolic syndrome X 11/08/19 06 Esophageal reflux 09/29/2017 documented as of this encounter (statuses as of 10/22/2022) [facility] [place] History of Past illness Narrative* Problem Noted Date Resolved Date Lung nodule < 6cm on CT 10/17/2021 07/04/20 22 Adhesive capsulitis of shoulder 10/19/2010 11/20/2011 Other acquired deformity of toe 03/23/2009 09/29/2017 Dermatophytosis of nail 03/23/2009 09/30/19 18 Polyneuropathy in diabetes(357.2) 11/07/2005 11/22/2013 Peripheral vascular disease 11/06/200510/26 Type II or unspecified type diabetes mellitus without mention of complication, uncontrolled 10/21/2005 11/22/2013 Dysmetabolic syndrome X 11/08/19 06 Esophageal reflux 09/29/2017 documented as of this encounter (statuses as of 10/23/2022) [facility] History of Past illness Narrative* Problem Noted Date Resolved Date Lung nodule < 6cm on CT 10/17/2021 07/04/20 22 Adhesive capsulitis of shoulder 10/19/2010 11/20/2011 Other acquired deformity of toe 03/23/2009 09/29/2017 Dermatophytosis of nail 03/23/2009 09/30/19 18 Polyneuropathy in diabetes(357.2) 11/07/2005 11/22/2013 Peripheral vascular disease 11/06/200510/26 Type II or unspecified type diabetes mellitus without mention of complication, uncontrolled 10/21/2005 11/22/2013 Dysmetabolic syndrome X 11/08/19 06 Esophageal reflux 09/29/2017 documented as of this encounter (statuses as of 10/30/2022) [place] [id number] History of Past illness Narrative* Problem Noted Date Resolved Date Lung nodule < 6cm on CT 10/17/2021 07/04/20 22 Adhesive capsulitis of shoulder 10/19/2010 11/20/2011 Other acquired deformity of toe 03/23/2009 09/29/2017 Dermatophytosis of nail 03/23/2009 09/30/19 18 Polyneuropathy in diabetes(357.2) 11/07/2005 11/22/2013 Peripheral vascular disease 11/06/200510/26 Type II or unspecified type diabetes mellitus without mention of complication, uncontrolled 10/21/2005 11/22/2013 Dysmetabolic syndrome X 11/08/19 06 Esophageal reflux 09/29/2017 documented as of this encounter (statuses as of 10/31/2022) [facility] History of Past illness Narrative* Problem Noted Date Resolved Date Lung nodule < 6cm on CT 10/17/2021 07/04/20 22 Adhesive capsulitis of shoulder 10/19/2010 11/20/2011 Other acquired deformity of toe 03/23/2009 09/29/2017 Dermatophytosis of nail 03/23/2009 09/30/19 18 Polyneuropathy in diabetes(357.2) 11/07/2005 11/22/2013 Peripheral vascular disease 11/06/200510/26 Type II or unspecified type diabetes mellitus without mention of complication, uncontrolled 10/21/2005 11/22/2013 Dysmetabolic syndrome X 11/08/19 06 Esophageal reflux 09/29/2017 documented as of this encounter (statuses as of 12/09/2022) [facility] History of Past illness Narrative* Problem Noted Date Resolved Date Lung nodule < 6cm on CT 10/17/2021 07/04/20 22 Adhesive capsulitis of shoulder 10/19/2010 11/20/2011 Other acquired deformity of toe 03/23/2009 09/29/2017 Dermatophytosis of nail 03/23/2009 09/30/19 18 Polyneuropathy in diabetes(357.2) 11/07/2005 11/22/2013 Peripheral vascular disease 11/06/200510/26 Type II or unspecified type diabetes mellitus without mention of complication, uncontrolled 10/21/2005 11/22/2013 Dysmetabolic syndrome X 11/08/19 06 Esophageal reflux 09/29/2017 documented as of this encounter (statuses as of 12/25/2022) [facility] History of Past illness Narrative* Problem Noted Date Resolved Date Lung nodule < 6cm on CT 10/17/2021 07/04/20 22 Adhesive capsulitis of shoulder 10/19/2010 11/20/2011 Other acquired deformity of toe 03/23/2009 09/29/2017 Dermatophytosis of nail 03/23/2009 09/30/19 18 Polyneuropathy in diabetes(357.2) 11/07/2005 11/22/2013 Peripheral vascular disease 11/06/200510/26 Type II or unspecified type diabetes mellitus without mention of complication, uncontrolled 10/21/2005 11/22/2013 Dysmetabolic syndrome X 11/08/19 06 Esophageal reflux 09/29/2017 documented as of this encounter (statuses as of 12/28/2022) [facility] History of Past illness Narrative* Problem Noted Date Resolved Date Lung nodule < 6cm on CT 10/17/2021 07/04/20 22 Adhesive capsulitis of shoulder 10/19/2010 11/20/2011 Other acquired deformity of toe 03/23/2009 09/29/2017 Dermatophytosis of nail 03/23/2009 09/30/19 18 Polyneuropathy in diabetes(357.2) 11/07/2005 11/22/2013 Peripheral vascular disease 11/06/200510/26 Type II or unspecified type diabetes mellitus without mention of complication, uncontrolled 10/21/2005 11/22/2013 Dysmetabolic syndrome X 11/08/19 06 Esophageal reflux 09/29/2017 documented as of this encounter (statuses as of 12/30/2022) [facility] History of Past illness Narrative* Problem Noted Date Resolved Date Lung nodule < 6cm on CT 10/17/2021 07/04/20 22 Adhesive capsulitis of shoulder 10/19/2010 11/20/2011 Other acquired deformity of toe 03/23/2009 09/29/2017 Dermatophytosis of nail 03/23/2009 09/30/19 18 Polyneuropathy in diabetes(357.2) 11/07/2005 11/22/2013 Peripheral vascular disease 11/06/200510/26 Type II or unspecified type diabetes mellitus without mention of complication, uncontrolled 10/21/2005 11/22/2013 Dysmetabolic syndrome X 11/08/19 06 Esophageal reflux 09/29/2017 documented as of this encounter (statuses as of 12/31/2022) [facility] History of Past illness Narrative* Problem Noted Date Resolved Date Lung nodule < 6cm on CT 10/17/2021 07/04/20 22 Adhesive capsulitis of shoulder 10/19/2010 11/20/2011 Other acquired deformity of toe 03/23/2009 09/29/2017 Dermatophytosis of nail 03/23/2009 09/30/19 18 Polyneuropathy in diabetes(357.2) 11/07/2005 11/22/2013 Peripheral vascular disease 11/06/200510/26 Type II or unspecified type diabetes mellitus without mention of complication, uncontrolled 10/21/2005 11/22/2013 Dysmetabolic syndrome X 11/08/19 06 Esophageal reflux 09/29/2017 documented as of this encounter (statuses as of 01/01/2023) [facility] History of Present illness Narrative* Konstantin German, RT(R) - 10/15/2021 1:40 PM EDT Radiology Service Progress Note DATE OF SERVICE: October 15, 2021 TIME: 3:19 PM PATIENT IDENTITY VERIFICATION COMPLETED USING TWO (2) STANDARD IDENTIFIERS: Name and Date of confirmed by patient verbally. FALL SCREENING: Has the patient had 2 falls in the last year or 1 fall with injury or currently using an Ambulatory Assistive Device (Walker, Cane, Wheelchair, Crutches, etc.)? No PATIENT GENDER DATA: Male PATIENT RELEVANT IMPLANT DATA REVIEWED: Yes ALLERGIES: Reviewed and unchanged CONTRAST ALLERGY: NO. EXAM: CT -CONTRAST INDUCED NEPHROPATHY RISK FACTORS: Patient age > 60 years CREATININE: Creatinine Date Value Ref Range Status 10/05/2021 1.17 0.73 - 1.22 mg/dL Final 06/29/2021 1.26 (H) 0.73 - 1.22 mg/dL Final 04/12/2021 1.25 (H) 0.73 - 1.22 mg/dL Final Estimated Glomerular Filtration Rate Date Value Ref Range Status 10/05/2021 67 >=60 mL/min/1.73m Final Comment: Estimated Glomerular Filtration Rate (eGFR) is calculated using the 2020 CKD-EPI creatinine equation. This equation utilizes serum creatinine, sex, and age as parameters. The creatinine assay has traceable calibration to isotope dilution- mass spectrometry. Refer to KDIGO guidelines for clinical interpretation. In patients with unstable renal function, e.g. those with acute kidney injury, the eGFRmay not accurately reflect actual GFR. eGFR- Date Value Ref Range Status 06/29/2021 >60 Final P.O.C.T. RESULTS: POC done: Yes, See Lab Tab October 15, 2021 TREATMENT: N/A PERIPHERAL IV DATA: Ambulatory: A peripheral IV was started in the Left antecubital site with a Angio cath: 18 gauge. RADIOLOGY DEPARTMENT: CT; Exam(s) Completed: CTA Brain and CTA Neck SIGNATURE: RT Alexandre(R) PATIENT NAME: Kam Greenberg DATE: October 15, 2021 TIME: 3:19 PM documented in this encounterOur [facility] History of Past illness Narrative* Problem Noted Date Resolved Date Adhesive capsulitis of shoulder 10/19/2010 11/20/2011 Other acquired deformity of toe 03/23/2009 09/29/2017 Dermatophytosis of nail 03/23/2009 09/30/19 18 Polyneuropathy in diabetes(357.2) 11/07/2005 11/22/2013 Peripheral vascular disease 11/06/200510/26 Type II or unspecified type diabetes mellitus without mention of complication, uncontrolled 10/21/2005 11/22/2013 Dysmetabolic syndrome X 11/08/19 06 Esophageal reflux 09/29/2017 documented as of this encounter (statuses as of 10/15/2021) [facility] History of Past illness Narrative* Problem Noted Date Resolved Date Adhesive capsulitis of shoulder 10/19/2010 11/20/2011 Other acquired deformity of toe 03/23/2009 09/29/2017 Dermatophytosis of nail 03/23/2009 09/30/19 18 Polyneuropathy in diabetes(357.2) 11/07/2005 11/22/2013 Peripheral vascular disease 11/06/200510/26 Type II or unspecified type diabetes mellitus without mention of complication, uncontrolled 10/21/2005 11/22/2013 Dysmetabolic syndrome X 11/08/19 06 Esophageal reflux 09/29/2017 documented as of this encounter (statuses as of 10/16/2021) [facility] History of Past illness Narrative* Problem Noted Date Resolved Date Adhesive capsulitis of shoulder 10/19/2010 11/20/2011 Other acquired deformity of toe 03/23/2009 09/29/2017 Dermatophytosis of nail 03/23/2009 09/30/19 18 Polyneuropathy in diabetes(357.2) 11/07/2005 11/22/2013 Peripheral vascular disease 11/06/200510/26 Type II or unspecified type diabetes mellitus without mention of complication, uncontrolled 10/21/2005 11/22/2013 Dysmetabolic syndrome X 11/08/19 06 Esophageal reflux 09/29/2017 documented as of this encounter (statuses as of 10/18/2021) [facility] History of Past illness Narrative* Problem Noted Date Resolved Date Adhesive capsulitis of shoulder 10/19/2010 11/20/2011 Other acquired deformity of toe 03/23/2009 09/29/2017 Dermatophytosis of nail 03/23/2009 09/30/19 18 Polyneuropathy in diabetes(357.2) 11/07/2005 11/22/2013 Peripheral vascular disease 11/06/200510/26 Type II or unspecified type diabetes mellitus without mention of complication, uncontrolled 10/21/2005 11/22/2013 Dysmetabolic syndrome X 11/08/19 06 Esophageal reflux 09/29/2017 documented as of this encounter (statuses as of 10/18/2021) [facility] History of Past illness Narrative* Problem Noted Date Resolved Date Adhesive capsulitis of shoulder 10/19/2010 11/20/2011 Other acquired deformity of toe 03/23/2009 09/29/2017 Dermatophytosis of nail 03/23/2009 09/30/19 18 Polyneuropathy in diabetes(357.2) 11/07/2005 11/22/2013 Peripheral vascular disease 11/06/200510/26 Type II or unspecified type diabetes mellitus without mention of complication, uncontrolled 10/21/2005 11/22/2013 Dysmetabolic syndrome X 11/08/19 06 Esophageal reflux 09/29/2017 documented as of this encounter (statuses as of 10/23/2021) [facility] History of Past illness Narrative* Problem Noted Date Resolved Date Adhesive capsulitis of shoulder 10/19/2010 11/20/2011 Other acquired deformity of toe 03/23/2009 09/29/2017 Dermatophytosis of nail 03/23/2009 09/30/19 18 Polyneuropathy in diabetes(357.2) 11/07/2005 11/22/2013 Peripheral vascular disease 11/06/200510/26 Type II or unspecified type diabetes mellitus without mention of complication, uncontrolled 10/21/2005 11/22/2013 Dysmetabolic syndrome X 11/08/19 06 Esophageal reflux 09/29/2017 documented as of this encounter (statuses as of 10/23/2021) [facility] History of Past illness Narrative* Problem Noted Date Resolved Date Adhesive capsulitis of shoulder 10/19/2010 11/20/2011 Other acquired deformity of toe 03/23/2009 09/29/2017 Dermatophytosis of nail 03/23/2009 09/30/19 18 Polyneuropathy in diabetes(357.2) 11/07/2005 11/22/2013 Peripheral vascular disease 11/06/200510/26 Type II or unspecified type diabetes mellitus without mention of complication, uncontrolled 10/21/2005 11/22/2013 Dysmetabolic syndrome X 11/08/19 06 Esophageal reflux 09/29/2017 documented as of this encounter (statuses as of 10/25/2021) [facility] History of Past illness Narrative* Problem Noted Date Resolved Date Adhesive capsulitis of shoulder 10/19/2010 11/20/2011 Other acquired deformity of toe 03/23/2009 09/29/2017 Dermatophytosis of nail 03/23/2009 09/30/19 18 Polyneuropathy in diabetes(357.2) 11/07/2005 11/22/2013 Peripheral vascular disease 11/06/200510/26 Type II or unspecified type diabetes mellitus without mention of complication, uncontrolled 10/21/2005 11/22/2013 Dysmetabolic syndrome X 11/08/19 06 Esophageal reflux 09/29/2017 documented as of this encounter (statuses as of 11/02/2021) [facility] History of Past illness Narrative* Problem Noted Date Resolved Date Adhesive capsulitis of shoulder 10/19/2010 11/20/2011 Other acquired deformity of toe 03/23/2009 09/29/2017 Dermatophytosis of nail 03/23/2009 09/30/19 18 Polyneuropathy in diabetes(357.2) 11/07/2005 11/22/2013 Peripheral vascular disease 11/06/200510/26 Type II or unspecified type diabetes mellitus without mention of complication, uncontrolled 10/21/2005 11/22/2013 Dysmetabolic syndrome X 11/08/19 06 Esophageal reflux 09/29/2017 documented as of this encounter (statuses as of 11/07/2021) [facility] History of Past illness Narrative* Problem Noted Date Resolved Date Adhesive capsulitis of shoulder 10/19/2010 11/20/2011 Other acquired deformity of toe 03/23/2009 09/29/2017 Dermatophytosis of nail 03/23/2009 09/30/19 18 Polyneuropathy in diabetes(357.2) 11/07/2005 11/22/2013 Peripheral vascular disease 11/06/200510/26 Type II or unspecified type diabetes mellitus without mention of complication, uncontrolled 10/21/2005 11/22/2013 Dysmetabolic syndrome X 11/08/19 06 Esophageal reflux 09/29/2017 documented as of this encounter (statuses as of 11/13/2021) [facility] History of Past illness Narrative* Problem Noted Date Resolved Date Adhesive capsulitis of shoulder 10/19/2010 11/20/2011 Other acquired deformity of toe 03/23/2009 09/29/2017 Dermatophytosis of nail 03/23/2009 09/30/19 18 Polyneuropathy in diabetes(357.2) 11/07/2005 11/22/2013 Peripheral vascular disease 11/06/200510/26 Type II or unspecified type diabetes mellitus without mention of complication, uncontrolled 10/21/2005 11/22/2013 Dysmetabolic syndrome X 11/08/19 06 Esophageal reflux 09/29/2017 documented as of this encounter (statuses as of 11/13/2021) [facility] History of Past illness Narrative* Problem Noted Date Resolved Date Adhesive capsulitis of shoulder 10/19/2010 11/20/2011 Other acquired deformity of toe 03/23/2009 09/29/2017 Dermatophytosis of nail 03/23/2009 09/30/19 18 Polyneuropathy in diabetes(357.2) 11/07/2005 11/22/2013 Peripheral vascular disease 11/06/200510/26 Type II or unspecified type diabetes mellitus without mention of complication, uncontrolled 10/21/2005 11/22/2013 Dysmetabolic syndrome X 11/08/19 06 Esophageal reflux 09/29/2017 documented as of this encounter (statuses as of 11/15/2021) [facility] History of Past illness Narrative* Problem Noted Date Resolved Date Adhesive capsulitis of shoulder 10/19/2010 11/20/2011 Other acquired deformity of toe 03/23/2009 09/29/2017 Dermatophytosis of nail 03/23/2009 09/30/19 18 Polyneuropathy in diabetes(357.2) 11/07/2005 11/22/2013 Peripheral vascular disease 11/06/200510/26 Type II or unspecified type diabetes mellitus without mention of complication, uncontrolled 10/21/2005 11/22/2013 Dysmetabolic syndrome X 11/08/19 06 Esophageal reflux 09/29/2017 documented as of this encounter (statuses as of 11/19/2021) [facility] History of Past illness Narrative* Problem Noted Date Resolved Date Adhesive capsulitis of shoulder 10/19/2010 11/20/2011 Other acquired deformity of toe 03/23/2009 09/29/2017 Dermatophytosis of nail 03/23/2009 09/30/19 18 Polyneuropathy in diabetes(357.2) 11/07/2005 11/22/2013 Peripheral vascular disease 11/06/200510/26 Type II or unspecified type diabetes mellitus without mention of complication, uncontrolled 10/21/2005 11/22/2013 Dysmetabolic syndrome X 11/08/19 06 Esophageal reflux 09/29/2017 documented as of this encounter (statuses as of 11/23/2021) [facility] History of Past illness Narrative* Problem Noted Date Resolved Date Adhesive capsulitis of shoulder 10/19/2010 11/20/2011 Other acquired deformity of toe 03/23/2009 09/29/2017 Dermatophytosis of nail 03/23/2009 09/30/19 18 Polyneuropathy in diabetes(357.2) 11/07/2005 11/22/2013 Peripheral vascular disease 11/06/200510/26 Type II or unspecified type diabetes mellitus without mention of complication, uncontrolled 10/21/2005 11/22/2013 Dysmetabolic syndrome X 11/08/19 06 Esophageal reflux 09/29/2017 documented as of this encounter (statuses as of 01/01/2022) [facility] History of Past illness Narrative* Problem Noted Date Resolved Date Adhesive capsulitis of shoulder 10/19/2010 11/20/2011 Other acquired deformity of toe 03/23/2009 09/29/2017 Dermatophytosis of nail 03/23/2009 09/30/19 18 Polyneuropathy in diabetes(357.2) 11/07/2005 11/22/2013 Peripheral vascular disease 11/06/200510/26 Type II or unspecified type diabetes mellitus without mention of complication, uncontrolled 10/21/2005 11/22/2013 Dysmetabolic syndrome X 11/08/19 06 Esophageal reflux 09/29/2017 documented as of this encounter (statuses as of 01/03/2022) [facility] History of Past illness Narrative* Problem Noted Date Resolved Date Adhesive capsulitis of shoulder 10/19/2010 11/20/2011 Other acquired deformity of toe 03/23/2009 09/29/2017 Dermatophytosis of nail 03/23/2009 09/30/19 18 Polyneuropathy in diabetes(357.2) 11/07/2005 11/22/2013 Peripheral vascular disease 11/06/200510/26 Type II or unspecified type diabetes mellitus without mention of complication, uncontrolled 10/21/2005 11/22/2013 Dysmetabolic syndrome X 11/08/19 06 Esophageal reflux 09/29/2017 documented as of this encounter (statuses as of 01/14/2022) [facility] History of Past illness Narrative* Problem Noted Date Resolved Date Adhesive capsulitis of shoulder 10/19/2010 11/20/2011 Other acquired deformity of toe 03/23/2009 09/29/2017 Dermatophytosis of nail 03/23/2009 09/30/19 18 Polyneuropathy in diabetes(357.2) 11/07/2005 11/22/2013 Peripheral vascular disease 11/06/200510/26 Type II or unspecified type diabetes mellitus without mention of complication, uncontrolled 10/21/2005 11/22/2013 Dysmetabolic syndrome X 11/08/19 06 Esophageal reflux 09/29/2017 documented as of this encounter (statuses as of 01/22/2022) [facility] History of Past illness Narrative* Problem Noted Date Resolved Date Adhesive capsulitis of shoulder 10/19/2010 11/20/2011 Other acquired deformity of toe 03/23/2009 09/29/2017 Dermatophytosis of nail 03/23/2009 09/30/19 18 Polyneuropathy in diabetes(357.2) 11/07/2005 11/22/2013 Peripheral vascular disease 11/06/200510/26 Type II or unspecified type diabetes mellitus without mention of complication, uncontrolled 10/21/2005 11/22/2013 Dysmetabolic syndrome X 11/08/19 06 Esophageal reflux 09/29/2017 documented as of this encounter (statuses as of 01/26/2022) [facility] History of Past illness Narrative* Problem Noted Date Resolved Date Adhesive capsulitis of shoulder 10/19/2010 11/20/2011 Other acquired deformity of toe 03/23/2009 09/29/2017 Dermatophytosis of nail 03/23/2009 09/30/19 18 Polyneuropathy in diabetes(357.2) 11/07/2005 11/22/2013 Peripheral vascular disease 11/06/200510/26 Type II or unspecified type diabetes mellitus without mention of complication, uncontrolled 10/21/2005 11/22/2013 Dysmetabolic syndrome X 11/08/19 06 Esophageal reflux 09/29/2017 documented as of this encounter (statuses as of 01/30/2022) [facility] History of Past illness Narrative* Problem Noted Date Resolved Date Adhesive capsulitis of shoulder 10/19/2010 11/20/2011 Other acquired deformity of toe 03/23/2009 09/29/2017 Dermatophytosis of nail 03/23/2009 09/30/19 18 Polyneuropathy in diabetes(357.2) 11/07/2005 11/22/2013 Peripheral vascular disease 11/06/200510/26 Type II or unspecified type diabetes mellitus without mention of complication, uncontrolled 10/21/2005 11/22/2013 Dysmetabolic syndrome X 11/08/19 06 Esophageal reflux 09/29/2017 documented as of this encounter (statuses as of 02/21/2022) [facility] History of Past illness Narrative* Problem Noted Date Resolved Date Adhesive capsulitis of shoulder 10/19/2010 11/20/2011 Other acquired deformity of toe 03/23/2009 09/29/2017 Dermatophytosis of nail 03/23/2009 09/30/19 18 Polyneuropathy in diabetes(357.2) 11/07/2005 11/22/2013 Peripheral vascular disease 11/06/200510/26 Type II or unspecified type diabetes mellitus without mention of complication, uncontrolled 10/21/2005 11/22/2013 Dysmetabolic syndrome X 11/08/19 06 Esophageal reflux 09/29/2017 documented as of this encounter (statuses as of 03/01/2022) [facility] History of Past illness Narrative* Problem Noted Date Resolved Date Adhesive capsulitis of shoulder 10/19/2010 11/20/2011 Other acquired deformity of toe 03/23/2009 09/29/2017 Dermatophytosis of nail 03/23/2009 09/30/19 18 Polyneuropathy in diabetes(357.2) 11/07/2005 11/22/2013 Peripheral vascular disease 11/06/200510/26 Type II or unspecified type diabetes mellitus without mention of complication, uncontrolled 10/21/2005 11/22/2013 Dysmetabolic syndrome X 11/08/19 06 Esophageal reflux 09/29/2017 documented as of this encounter (statuses as of 04/08/2022) [facility] History of Past illness Narrative* Problem Noted Date Resolved Date Adhesive capsulitis of shoulder 10/19/2010 11/20/2011 Other acquired deformity of toe 03/23/2009 09/29/2017 Dermatophytosis of nail 03/23/2009 09/30/19 18 Polyneuropathy in diabetes(357.2) 11/07/2005 11/22/2013 Peripheral vascular disease 11/06/200510/26 Type II or unspecified type diabetes mellitus without mention of complication, uncontrolled 10/21/2005 11/22/2013 Dysmetabolic syndrome X 11/08/19 06 Esophageal reflux 09/29/2017 documented as of this encounter (statuses as of 04/16/2022) [facility] History of Past illness Narrative* Problem Noted Date Resolved Date Adhesive capsulitis of shoulder 10/19/2010 11/20/2011 Other acquired deformity of toe 03/23/2009 09/29/2017 Dermatophytosis of nail 03/23/2009 09/30/19 18 Polyneuropathy in diabetes(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) 11/07/2005 11/22/2013 Peripheral vascular disease 11/06/200510/26 Type II or unspecified type diabetes mellitus without mention of complication, uncontrolled 10/21/2005 11/22/2013 Dysmetabolic syndrome X 11/08/19 06 Esophageal reflux 09/29/2017 documented as of this encounter (statuses as of 04/17/2022) [facility] History of Past illness Narrative* Problem Noted Date Resolved Date Adhesive capsulitis of shoulder 10/19/2010 11/20/2011 Other acquired deformity of toe 03/23/2009 09/29/2017 Dermatophytosis of nail 03/23/2009 09/30/19 18 Polyneuropathy in diabetes(357.2) 11/07/2005 11/22/2013 Peripheral vascular disease 11/06/200510/26 Type II or unspecified type diabetes mellitus without mention of complication, uncontrolled 10/21/2005 11/22/2013 Dysmetabolic syndrome X 11/08/19 06 Esophageal reflux 09/29/2017 documented as of this encounter (statuses as of 04/29/2022) [facility] History of Past illness Narrative* Problem Noted Date Resolved Date Adhesive capsulitis of shoulder 10/19/2010 11/20/2011 Other acquired deformity of toe 03/23/2009 09/29/2017 Dermatophytosis of nail 03/23/2009 09/30/19 18 Polyneuropathy in diabetes(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) 11/07/2005 11/22/2013 Peripheral vascular disease 11/06/200510/26 Type II or unspecified type diabetes mellitus without mention of complication, uncontrolled 10/21/2005 11/22/2013 Dysmetabolic syndrome X 11/08/19 06 Esophageal reflux 09/29/2017 documented as of this encounter (statuses as of 04/30/2022) [facility] History of Past illness Narrative* Problem Noted Date Resolved Date Adhesive capsulitis of shoulder 10/19/2010 11/20/2011 Other acquired deformity of toe 03/23/2009 09/29/2017 Dermatophytosis of nail 03/23/2009 09/30/19 18 Polyneuropathy in diabetes(357.2) 11/07/2005 11/22/2013 Peripheral vascular disease 11/06/200510/26 Type II or unspecified type diabetes mellitus without mention of complication, uncontrolled 10/21/2005 11/22/2013 Dysmetabolic syndrome X 11/08/19 06 Esophageal reflux 09/29/2017 documented as of this encounter (statuses as of 04/30/2022) [facility] Pb Vas[facility] Note Date/Time November 12, 2024 3:4 8pm [facility] Medical Records Department [address] [place] [address] Counseling Note - Pharmacy 11/12/24 1547 MR#: [id number] Acct: [id number] Name: KAM GREENBERG Rep #:[id number] : 1950 74 From: Pb Vasquez PCP: Dr. Royce Carroll MD Status:A DM IN Y Location: [place] [id number] 1 Pharmacy [facility] Service has performed discharge medication reconciliation and counseling for this patient. The patient's discharge medication list was reviewed for discrepancies and discrepancies were resolved. The patient was counseled on the following discharge medications and changes in medications for homegoing were reviewed. The Reason for Use, instructions for use, and potential side effects were reviewed for all new medications. The patient's questions regarding all of their medications were answered. 1. Amoxicillin/clavulanate 875/125 mg PO BID x 5 days 2. Prednisone 40 mg PO daily x 4 days 3. Furosemide 40 mg PO daily 4. Potassium 20 mEq PO daily The patient was able to verbally demonstrate an understanding of their dischargemedications. Medications at Discharge Home Medications clopidogrel 75 mg tablet 75 mg PO DAILY Check with primary doctor 03/24/16 metoprolol tartrate 50 mg tablet 50 mg PO BID Check with primary doctor 03/24/16 amlodipine 5 mg tablet 5 mg PO DAILY Check with primary doctor 12/11/22 sertraline 100 mg tablet 100 mg PO DAILY Check with primary doctor 12/11/22 albuterol sulfate 2.5 mg/3 mL (0.083 %) solution for nebulization 2.5 mg (3 mL) inhalation Q2H PRN PRN shortness of breath or wheezing #1 mL 12/17/22 ipratropium 0.5 mg-albuterol 3 mg (2.5 mg base)/3 mL nebulization soln 3 ml inhalation 4X/DAY #120 mL 12/17/22 albuterol sulfate 90 mcg/actuation aerosol inhaler 2 puff inhalation Q4H PRN PRNwheezing 11/03/24 atorvastatin 40 mg tablet 40 mg PO QHS cholesterol 11/03/24 fluticasone fur. 100 mcg-umeclid 62.5 mcg-vilant 25 mcg inhalat.powder (Trelegy Ellipta) 1 ea inhalation DAILY 11/03/24 fluticasone propionate 50 mcg/actuation nasal spray,suspension 1 spray intranasal BID 11/03/24 metformin 500 mg tablet 500 mg PO BID 11/03/24 amoxicillin 875 mg-potassium clavulanate 125 mg tablet 1 tab PO BID #10 tabs 11/12/24 furosemide 40 mg tablet 40 mg PO DAILY #30 tabs 11/12/24 potassium chloride 20 mEq tablet,extended release(part/cryst) (Klor-Con M) 20 meq PO DAILY #30 tabs 11/12/24 prednisone 20 mg tablet 40 mg (2 x 20 mg) PO BREAKFAST 4 days #8 tabs 11/12/24 11/12/24 1548 <Electronically signed by Pb kaur> Date _ Pb Enriqueigner Signature (if applicable): Date CC: ~ Signed [facility] Work Phone: Discharge summary Author Rafaela Pelayo [facility] Note Date/Time November 12, 2024 3:2 6pm [facility] Medical Records Department [address] [place] [address] Instructions for Home/Discharge Instructions 11/12/24 1525 MR#: [id number] Acct: [id number] Name: KAM GREENBERG Rep #:[id number] : 1950 74 From: Rafaela Pelayo MD PCP: Dr. Royce Carroll MD Status:A DM IN Discharge Instructions Diet Discharge Diet: Low fat / Low cholesterol DC O2, CPAP, BIPAP needs Home O2 Discharge instructions: Yes Type of respiratory needs?: Oxygen (6) Oxygen frequency: With Ambulation Oxygen liters per minute during Ambulation: 6 Dressing / Incision Discharge Activity: Return to Normal Activity Weight Bearing Status: Weight bearing as tolerated Dressing / Incision Call your doctor if you observe: Fever of 101 or Higher, Shortness of breath, Dizziness, Swelling in the ankles and Chest pain Follow Up Care Test Results: Test results from this visit will be discussed in further detail at your follow- up appointment, if applicable. Discharge Plan Admission Admit Date/Time: 11/03/24 21:18 Primary Reason for Your Visit: acute on chronic respiratory failure, aspiration pneumonia Attending Provider: Rafaela Pelayo Primary Care Provider: Royce Carroll Consulting Providers: Kam Rogers; Anabell Hinkle; Олег Horne Instructions Patient Instructions: Dysphagia Aspiration Discharge Orders/Prescriptions Prescriptions: New furosemide 40 mg tablet 40 mg PO DAILY Qty: 30 2RF potassium chloride [Klor-Con M20] 20 mEq tablet,ER particles/crystals 20 meq PO DAILY Qty: 30 1RF prednisone 20 mg Tablet 40 mg PO BREAKFAST 4 Days Qty: 8 8RF amoxicillin-pot clavulanate 875-125 mg tablet 1 tab PO BID Qty: 10 0RF Continued clopidogrel 75 MG tablet 75 mg PO DAILY Patient Comments: cholesterol metoprolol tartrate 50 MG tablet 50 mg PO BID Patient Comments: treat Blood pressure sertraline 100 mg tablet 100 mg PO DAILY Patient Comments: TAKE 1 TABLET BY MOUTH EVERY DAY amlodipine 5 mg tablet 5 mg PO DAILY Patient Comments: TAKE 1 TABLET BY MOUTH EVERY DAY ipratropium-albuterol 0.5 mg-3 mg(2.5 mg base)/3 mL Solution For Nebulization 3 ml inhalation 4X/DAY Qty: 120 0RF albuterol sulfate 2.5 mg /3 mL (0.083 %) solution for nebulization 2.5 mg inhalation Q2H PRN PRN (Reason: shortness of breath or wheezing) Qty: 1 0RF Rx Instructions: Use every two hours as needed for shortness of breath atorvastatin 40 mg tablet 40 mg PO QHS metformin 500 mg tablet 500 mg PO BID fluticasone propionate 50 mcg/actuation spray,suspension 1 spray INTRANASAL BID Trelegy Ellipta 100-62.5-25 mcg blister with device 1 ea inhalation DAILY albuterol sulfate 90 mcg/actuation HFA aerosol inhaler 2 puff inhalation Q4H PRN PRN (Reason: wheezing) Referrals / Follow Up: Royce Carroll MD [Primary Care Provider] - Within 1 Week Disposition Disposition (needs filled in before D/C Order can be placed): Home Health Service 11/12/24 1526<Electronically signed by Rafaela Pelayo MD>Rafaela Pelayo MD CC: Dr. Kam Rogers DO; Dr. Олег Horne MD; Dr. Anabell Hinkle MD; Dr.Victor Annita MD ~ Signed [facility] Work Phone: Discharge summary Author [facility] Note Date/Time November 12, 2024 3:3 3pm [facility] Medical Records Department [address] [place] [id number] Discharge Summary 11/12/24 1526 MR#: [id number] Acct: [id number] Name: KAM GREENBERG Rep #:[id number] : 1950 74 From: Rafaela Pelayo MD PCP: Dr. Royce Carroll MD Status:A DM IN Location: [place] [id number] Providers Date of Admission: 11/03/24 Date of Discharge: 11/12/24 Primary Care Physician: Dr. Royce Carroll MD Consultations 11/08/24 11:19 Consult: Cardiology Routine Consulting Provider: Олег Horne Reason for Consult: reduced EF per echo EMERGENT Consult: No MD Notified: Yes Date Notified: 11/08/24 Time Notified: 11:19 Method of Notification: Text 11/09/24 12:51 Consult: Twisting Press Operator / Pulmonary Medicine Routine Consulting Provider: Intensivists/Pulmonary Med Reason for Consult: acute on chronic hypoxic respiratory failure EMERGENT Consult: No Notified: Yes Date Notified: 11/09/24 Time Notified: 12:51 Method of Notification: Text Reason For Visit: ASPIRATION PNA & AE COPD Diagnosis Discharge Diagnosis (1) Aspiration pneumonia: Status: Acute Code(s): J69.0 - Pneumonitis due to inhalation of food and vomit Qualifiers: Aspiration pneumonia type: unspecified Laterality: bilateral Lung location: unspecified part of lung Qualified Code(s): J69.0 - Pneumonitis due to inhalation of food and vomit (2) COPD exacerbation: Status: Chronic Code(s): J44.1 - Chronic obstructive pulmonary disease with (acute) exacerbation Plan #Acute on chronic hypoxic respiratory failure due to COPD and aspiration pneumonia * remains on 4L of oxygen. However he continues to desaturate very easily with exertion. * CXR showed evidence of pneumonia * on IV solumedrol * on IV zosyn. Breathing treatment with bronchodilators * he had modified barium swallow and coughed during the process; modified barium swallow showed moderate oropharyngeal dysphagia. * speech therapy on board. TO have further speech evaluation again today. * titrate oxygen to maintain sats >90%. * Breathing treatment with bronchodilators. Titrate oxygen to maintain sats >90% * Respiratory panel was negative. Urine for strep and Legionella were also negative. * CTA chest showed no evidence of PE and showed small left pleural effusion with calcified left pleural plaques. * pulmonology on board * on PO prednisone * #Cardiomyopathy * has EF of 45% with mild to moderate global hypokinesis of the left ventricle and stage I diastolic dysfunction and pulmonary artery systolic pressure of 65mmHg * On 4 L of oxygen which is his baseline * echo from 2022 showed EF of 55-60% and stage I diastolic dysfunction and normal LV systolic function. * Cardiology did review him based on the echo findings recommended adding on losartan 50 mg every afternoon to his medication regimen. Per cardiology once his pulmonary status is back to baseline to have a limited echo in 6 weeks time to evaluate his pulmonary artery pressures and ventricular function. * Troponins were mildly elevated on admission at 131 and peaked at 159 but trended downwards to 133. * received lasix yesterday, will give another dose of lasix today * #CAD s/p CABG and stents * on plavix and statin as well as beta kaushik. Also on losartan * #CKD stage III: Creatinine is 1.51 today. Baseline creatinine has been around 1.5 from admission. Will monitor. #Hypertension: on metoprolol and amlodipine #GERD: on PPI DVT prophylaxis: heparin * Medications at Discharge Home Medications clopidogrel 75 mg tablet 75 mg PO DAILY Check with primary doctor 03/24/16 metoprolol tartrate 50 mg tablet 50 mg PO BID Check with primary doctor 03/24/16 amlodipine 5 mg tablet 5 mg PO DAILY Check with primary doctor 12/11/22 sertraline 100 mg tablet 100 mg PO DAILY Check with primary doctor 12/11/22 albuterol sulfate 2.5 mg/3 mL (0.083 %) solution for nebulization 2.5 mg (3 mL) inhalation Q2H PRN PRN shortness of breath or wheezing #1 mL 12/17/22 ipratropium 0.5 mg-albuterol 3 mg (2.5 mg base)/3 mL nebulization soln 3 ml inhalation 4X/DAY #120 mL 12/17/22 albuterol sulfate 90 mcg/actuation aerosol inhaler 2 puff inhalation Q4H PRN PRNwheezing 11/03/24 atorvastatin 40 mg tablet 40 mg PO QHS cholesterol 11/03/24 fluticasone fur. 100 mcg-umeclid 62.5 mcg-vilant 25 mcg inhalat.powder (Trelegy Ellipta) 1 ea inhalation DAILY 11/03/24 fluticasone propionate 50 mcg/actuation nasal spray,suspension 1 spray intranasal BID 11/03/24 metformin 500 mg tablet 500 mg PO BID 11/03/24 amoxicillin 875 mg-potassium clavulanate 125 mg tablet 1 tab PO BID #10 tabs 11/12/24 furosemide 40 mg tablet 40 mg PO DAILY #30 tabs 11/12/24 potassium chloride 20 mEq tablet,extended release(part/cryst) (Klor-Con M) 20 meq PO DAILY #30 tabs 11/12/24 prednisone 20 mg tablet 40 mg (2 x 20 mg) PO BREAKFAST 4 days #8 tabs 11/12/24 Hospital Course Operations None Procedures 2-D Echocardiogram Summary of Care Provided Minutes Spent on Discharge: 47 Hospital Course: Patient is a 74 y/o male with a PMH as outlined who was admitted via the ED on 11/03/2024 with a complaint of shortness of breath, wheezing and cough with drinking. Was initially present with exertion but subsequently the shortness ofbreath was present even at rest and he also had chest tightness due to shortnessof breath. Family noted that he also had coughing fits whilst drinking fluids. He denied any fever or chills or runny nose or any other such symptoms. On admission WBC was elevated at 12.7 and chest x-ray showed upper lobe emphysema with small bilateral pleural effusion and scarring in the mid to lower lungs as well as bilateral airspace disease more prominent on the right suspicious for pneumonia. There was concern for aspiration. Patient was on 5 L of oxygen and usually will 4 L at home. He was admitted and managed for hypoxia in the setting of chronic respiratory failure due to probable aspiration pneumonia as well as COPD exacerbation. He was placed on IV Solu-Medrol and IV Zosyn. Respiratory panel was negative and urine. And Legionella were also negative. He did have 2D echo which showed EF of 45% with mild to moderate global hypokinesis of the left ventricle and stage I diastolic dysfunction as well as pulmonary artery systolic pressure of 65 mmHg. Patient was started on diuresis with IV Lasix and cardiology was consulted as his previous echo has shown EF of 55 to 60%. Cardiology reviewed him and felt that his symptoms and echo findingswere likely due to the acute effect of the acute on chronic respiratory failure and recommended that patient follow-up with his outpatient guest request runner for limited echo to be repeated in about 6 weeks to evaluate the left ventricular systolic function. Patient did continue to require increasing amounts of oxygenand so pulmonology was consulted. Patient was diuresed and this did help with the shortness of breath. Pulmonology recommended hospice but patient was adamantly opposed to this. With diuresis patient shortness of breath gradually improved and he felt much better. He had walking pulse ox on 11/12/2024 which showed that he required 6 L of oxygen. Patient was therefore discharged home on6 L of oxygen with ambulation on 11/12/2024. He was discharged on a 5-day courseof p.o. Augmentin and on a 4-day course of p.o. prednisone. He was also discharged on p.o. Lasix 40 mg daily with 20 mEq of potassium daily supplementation. He is follow-up with his primary care doctor with his tooling mechanic and guest request runner within 1 to 2 weeks. Patient seen and examined. He said he felt much better and was eager to be discharged home. He had no active complaints. Review of systems otherwise negative. Labs and vitals reviewed. Home medication reviewed and reconciled. Physical Exam Const alert, oriented x3, no apparent distress, average body habitus and well nourished Constitutional Narrative: frail, weak General Appearance: cooperative and comfortable Orientation / Consciousness: awake HEENT normocephalic, head/scalp atraumatic, hearing grossly normal bilaterally, moist oral mucous membranes and oropharynx normal Mouth: oral and palatal mucosa normal Eyes PERRL and EOMs intact bilaterally Neck no lymphadenopathy, supple and no JVD Lymph Lymphatic: no lymphadenopathy noted and no lymphedema noted Resp Resp Narrative: mildly diminished breath sounds bibasally, no wheezes or crackles. On 4 L of oxygen by nasal canula Auscultation: wheezes Cardio regular rate, regular rhythm, S1 normal heart sound, S2 normal heart sound and no murmurs GI normal to inspection, nondistended, normoactive bowel sounds, soft to palpation,non-tender and non-distended Extremity normal to inspection, full ROM, normal capillary refill, no clubbing, cyanosis or edema and no calf tenderness General Extremity: no tenderness to palpation of joints or extremities Skin General Skin Exam: no breakdown Neuro CN's II-XII intact bilaterally, moves all extremities, no focal motor deficits and no sensory deficits noted Sensorium / Orientation: awake, alert, oriented to person, oriented to place andoriented to time Speech: speech normal Motor Exam: strength 5/5 throughout and general weakness Psych thought process normal, cooperative and affect normal Appearance: appropriate Medical Records Data Medical Nutrition Assessment Dietitian: Malnutrition Criteria Met Start: 11/08/24 15:10 Freq: Status: Active Protocol: Document 11/08/24 15:10 RMA (Rec: 11/08/24 15:10 RMA [id number]) Nutrition Malnutrition Evidence of Yes Malnutrition Exists Malnutrition (severe Acute Illness/Injury ): Evidenced By Suboptimal Energy Intake (Severe),Weight Loss (Severe) Intake Problem Inadequate Oral Intake Etiology related to swallowing difficulty Signs/Symptoms as evidenced by NPO x 3 days Status Resolved Problem Clinical Problem Acute Disease or Injury Related Malnutrition Etiology severe protein-calorie malnutrition in the context of acute illness related to inadequate oral intake and difficulty chewing/swallowing Signs/Symptoms as evidenced by PO meeting less than 50% estimated nutrition needs x 1 week, extended NPO x 3-4 days and weight loss ~5-6% in less than 1 week Status Active Problem Recommendation Dietitian Will adjust diet to carbohydrate-controlled (no caloric Recommendations/ restriction). Changes Consistency/texture as per GUEST SERVICE REPRESENTATIVE. Will add 120mL PO glucerna shake w/ meals 3 times per day. Limit sodium and fluids as indicated once PO established with meals. Additional ONS and/or TF support to supplement PO as indicated if PO established suboptimal at meals and/or weight continues to decline. Weight / BMI Weight Weight: 164 lb 0.383 oz Body Mass Index (BMI) 21.6 ABG / Lab / Microbiology Data 11/12/24 05:10 11/12/24 05:10 Laboratory: Laboratory Results - last 24 hr 11/11/24 16:53: POC Glucose 245 H 11/11/24 22:01: POC Glucose 392 H 11/12/24 05:10: WBC 9.3, RBC 2.77 L, Hgb 9.1 L, Hct 27.6 L, MCV 99.6 H, MCH 32.9H, MCHC 33.0, RDW Std Deviation 50.1 H, RDW Coeff of Christine 13.8, Plt Count 237, MPV 9.9, Immature Gran % (Auto) 0.500, Neut % (Auto) 61.8, Lymph % (Auto) 27.3, Appling % (Auto) 7.8, Eos % (Auto) 2.5, Baso % (Auto) 0.1, Absolute Neuts (auto) 5.8, Absolute Lymphs (auto) 2.54, Nucleated RBC % 0, Sodium 140, Potassium 4.0, Chloride 97 L, Carbon Dioxide 32.8 H, Anion Gap 10, BUN 29 H, Creatinine 1.66 H,Estim Creat Clear Calc 41.71 L, Est GFR (MDRD) Non-Af 43 L, BUN/Creatinine Ratio17.4, Glucose 183 H, Calcium 8.6 11/12/24 08:08: POC Glucose 162 H 11/12/24 11:56: POC Glucose 320 H Microbiology: Microbiology 11/04/24 16:00 Mucosa - Nasopharyngeal Respiratory Panel (PCR) - Final 11/04/24 19:08 Urine, Clean Catch Legionella Antigen - Final 11/04/24 19:08 Urine, Clean Catch Streptococcus pneumoniae Antigen (M - Final 11/03/24 18:55 Mucosa - Nose SARS-CoV-2, Influenza & RSV (PCR) - Final D/C Instructions Discharge Diet: Low fat / Low cholesterol Discharge Activity: Return to Normal Activity Weight Bearing Status: Weight bearing as tolerated Call your doctor if you observe: Fever of 101 or Higher, Shortness of breath, Dizziness, Swelling in the ankles and Chest pain DC O2, CPAP, BIPAP Needs Home O2 Discharge instructions: Yes Type of respiratory needs?: Oxygen (6) Oxygen frequency: With Ambulation Oxygen liters per minute during Ambulation: 6 DC home with Oxygen: Yes Home O2 MD Review: I have reviewed the oxygen testing, and the patient qualifies for home oxygen equipment and portability. The patient is mobile in the home and the community. Meaningful Use Info Meaningful Use Meaningful Use Diagnoses (Choose all that apply): None applicable Ischemic Stroke Statin Dosing Therapy Reference: STATIN DOSE THERAPY REFERENCE: * Patients > 75 years receive moderate or high dose statin therapy. * Patients 75 years or YOUNGER should receive HIGH intensity statin dose unless contraindicated. You will be required to document reason for non-treatment if statin daily dose does not meet guidelines. HIGH DOSE STATIN THERAPY DAILY Atorvastatin > than or = to 40 mg Rosuvastatin > than or = to 20 mg Amlodipine + Atorvastatin > than or = to 2.5/40 mg Ezetimibe + Simvastatin 10/80 mg Simvastatin 80mg Discharge Plan Admission Admit Date/Time: 11/03/24 21:18 Primary Reason for Your Visit: acute on chronic respiratory failure, aspiration pneumonia Attending Provider: Rafaela Pelayo Primary Care Provider: Royce Carroll Consulting Providers: Kam Rogers; Anabell Hinkle; Олег Horne Instructions Patient Instructions: Dysphagia Aspiration Discharge Orders/Prescriptions Prescriptions: New furosemide 40 mg tablet 40 mg PO DAILY Qty: 30 2RF potassium chloride [Klor-Con M20] 20 mEq tablet,ER particles/crystals 20 meq PO DAILY Qty: 30 1RF prednisone 20 mg Tablet 40 mg PO BREAKFAST 4 Days Qty: 8 8RF amoxicillin-pot clavulanate 875-125 mg tablet 1 tab PO BID Qty: 10 0RF Continued clopidogrel 75 MG tablet 75 mg PO DAILY Patient Comments: cholesterol metoprolol tartrate 50 MG tablet 50 mg PO BID Patient Comments: treat Blood pressure sertraline 100 mg tablet 100 mg PO DAILY Patient Comments: TAKE 1 TABLET BY MOUTH EVERY DAY amlodipine 5 mg tablet 5 mg PO DAILY Patient Comments: TAKE 1 TABLET BY MOUTH EVERY DAY ipratropium-albuterol 0.5 mg-3 mg(2.5 mg base)/3 mL Solution For Nebulization 3 ml inhalation 4X/DAY Qty: 120 0RF albuterol sulfate 2.5 mg /3 mL (0.083 %) solution for nebulization 2.5 mg inhalation Q2H PRN PRN (Reason: shortness of breath or wheezing) Qty: 1 0RF Rx Instructions: Use every two hours as needed for shortness of breath atorvastatin 40 mg tablet 40 mg PO QHS metformin 500 mg tablet 500 mg PO BID fluticasone propionate 50 mcg/actuation spray,suspension 1 spray INTRANASAL BID Trelegy Ellipta 100-62.5-25 mcg blister with device 1 ea inhalation DAILY albuterol sulfate 90 mcg/actuation HFA aerosol inhaler 2 puff inhalation Q4H PRN PRN (Reason: wheezing) Referrals / Follow Up: Royce Carroll MD [Primary Care Provider] - Within 1 Week Disposition Disposition (needs filled in before D/C Order can be placed): Home Health Service Charges/Coding Visit Charges Inpatient E&M: 24097 Disch Hosp >30min 11/12/24 1533 <Electronically signed by Rafaela Pelayo MD> Cosigner Signature (if applicable): CC: Dr. Rafaela Pelayo MD; Dr. Royce Carroll MD~ Signed [facility] Work Phone: Evaluation note* Diagnosis Stenosis of left carotid artery- Primary Occlusion and stenosis of carotid artery without mention of cerebral infarction [facility] Diagnosis Transient cerebral ischemia, unspecified type [facility]* Diagnosis Lung nodules Other nonspecific abnormal finding of lung field [facility]* Diagnosis Transient cerebral ischemia, unspecified type [facility] Lung nodules Other nonspecific abnormal finding of lung field Essential tremor- Primary Essential and other specified forms of tremor Osteoarthritis of lumbar spine, unspecified spinal osteoarthritis complication status Abnormality of gait Transient cerebral ischemia, unspecified type Facial weakness Left arm weakness Other musculoskeletal symptoms referable to limbs History of stroke Transient ischemic attack (TIA), and cerebral infarction without residual deficits [facility] Diagnosis Stenosis of left carotid artery Occlusion and stenosis of carotid artery without mention of cerebral infarction Essential tremor- Primary Essential and other specified forms of tremor Osteoarthritis of lumbar spine, unspecified spinal osteoarthritis complication status Abnormality of gait Transient cerebral ischemia, unspecified type Facial weakness Left arm weakness Other musculoskeletal symptoms referable to limbs History of stroke Transient ischemic attack (TIA), and cerebral infarction without residual deficits [facility] Diagnosis Abnormality of gait- Primary Lumbar spondylosis Lumbosacral spondylosis without myelopathy History of stroke Transient ischemic attack (TIA), and cerebral infarction without residual deficits [facility]* Diagnosis Anxiety disorder, unspecified type [facility] Diagnosis SVT (supraventricular tachycardia) (HCC)- Primary Other specified cardiac dysrhythmias V-tach (HCC) Paroxysmal ventricular tachycardia [facility] Diagnosis Type 2 diabetes mellitus with diabetic peripheral angiopathy without gangrene, without long-term current use of insulin (HCC)- Primary Chronic bronchitis, unspecified chronic bronchitis type (HCC) Abnormality of gait Tobacco use disorder [facility] Diagnosis Chronic bronchitis, unspecified chronic bronchitis type (HCC) [facility] Diagnosis Anxiety disorder, unspecified type [facility] Diagnosis Essential tremor- Primary Essential and other specified forms of tremor Osteoarthritis of lumbar spine, unspecified spinal osteoarthritis complication status Abnormality of gait Transient cerebral ischemia, unspecified type Facial weakness Left arm weakness Other musculoskeletal symptoms referable to limbs History of stroke Transient ischemic attack (TIA), and cerebral infarction without residual deficits [facility] Diagnosis Essential hypertension Unspecified essential hypertension [facility] Diagnosis Routine medical exam- Primary Routine general medical examination at a health care facility Chronic bronchitis, unspecified chronic bronchitis type (HCC) Need for influenza vaccination Need for prophylactic vaccination and inoculation against influenza Need for COVID-19 vaccine Hyperlipidemia, unspecified hyperlipidemia type Type 2 diabetes mellitus with diabetic neuropathy, without long-term current use of insulin (HCC) [facility] Diagnosis Tobacco use disorder- Primary [facility]* Diagnosis Encounter for screening for lung cancer- Primary Tobacco use current [facility] Diagnosis Essential hypertension Unspecified essential hypertension [facility] Diagnosis Encounter for screening for lung cancer- Primary Tobacco use disorder [facility]* Diagnosis Encounter for screening for lung cancer- Primary Tobacco use current [facility] Diagnosis Chronic bronchitis, unspecified chronic bronchitis type (HCC) [facility]* Diagnosis Bilateral lower extremity edema- Primary Edema Chronic obstructive pulmonary disease, unspecified COPD type (HCC) SOB (shortness of breath) Shortness of breath Elevated brain natriuretic peptide (BNP) level Other nonspecific findings on examination of blood [facility] Diagnosis Bilateral lower extremity edema- Primary Edema Bilateral lower extremity pain Pain in limb [facility] Diagnosis Chronic obstructive pulmonary disease with (acute) exacerbation (HCC)- Primary Essential hypertension Unspecified essential hypertension Acute on chronic respiratory failure with hypoxia (HCC) Chronic diastolic CHF (congestive heart failure) (HCC) Chronic diastolic heart failure Hyperlipidemia, unspecified hyperlipidemia type Essential tremor Essential and other specified forms of tremor Atherosclerosis of coronary artery of [place] heart without angina pectoris, unspecified vessel or lesion type Anxiety disorder, unspecified type Type 2 diabetes mellitus with diabetic mononeuropathy, without long-term current use of insulin (HCC) [facility]* Diagnosis Type 2 diabetes mellitus without retinopathy ([facility])- Primary Type II or unspecified type diabetes mellitus without mention of complication, not stated as uncontrolled Nuclear sclerosis of both eyes Refractive error Unspecified disorder of refraction and accommodation [facility]* Diagnosis Essential tremor- Primary Essential and other specified forms of tremor Osteoarthritis of lumbar spine, unspecified spinal osteoarthritis complication status Abnormality of gait Transient cerebral ischemia, unspecified type Facial weakness Left arm weakness Other musculoskeletal symptoms referable to limbs History of stroke Transient ischemic attack (TIA), and cerebral infarction without residual deficits SVT (supraventricular tachycardia) (HCC) Other specified cardiac dysrhythmias V-tach ([facility]) Paroxysmal ventricular tachycardia [facility] Diagnosis Nuclear sclerosis of both eyes- Primary Type 2 diabetes mellitus without retinopathy (HCC) Type II or unspecified type diabetes mellitus without mention of complication, not stated as uncontrolled Refractive error Unspecified disorder of refraction and accommodation [facility] Diagnosis Stage 3 severe COPD by GOLD classification ([facility])- Primary Chronic hypoxemic respiratory failure (HCC) Chronic respiratory failure Former cigarette smoker Personal history of tobacco use, presenting hazards to health [facility]* Diagnosis Preop exam for internal medicine- Primary Other specified pre-operative examination Type 2 diabetes mellitus with diabetic peripheral angiopathy without gangrene, without long-term current use of insulin ([facility]) Essential hypertension Unspecified essential hypertension Chronic obstructive pulmonary disease with (acute) exacerbation ([facility]) Acute on chronic respiratory failure with hypoxia ([facility]) Chronic diastolic CHF (congestive heart failure) ([facility]) Chronic diastolic heart failure Atherosclerosis of coronary artery of [place] heart without angina pectoris, unspecified vessel or lesion type Encounter for immunization Need for other specified prophylactic vaccination against single bacterial disease Nuclear sclerosis of right eye [facility]* Diagnosis Pseudophakia- Primary Lens replaced by other means [facility]* Diagnosis Essential tremor- Primary Essential and other specified forms of tremor Osteoarthritis of lumbar spine, unspecified spinal osteoarthritis complication status Abnormality of gait Facial weakness Transient cerebral ischemia, unspecified type History of stroke Transient ischemic attack (TIA), and cerebral infarction without residual deficits SVT (supraventricular tachycardia) Other specified cardiac dysrhythmias V-tach (HCC) Paroxysmal ventricular tachycardia History of CVA (cerebrovascular accident) Transient ischemic attack (TIA), and cerebral infarction without residual deficits Left arm weakness Other musculoskeletal symptoms referable to limbs Combined forms of age-related cataract of left eye Other and combined forms of senile cataract documented in this encounter [facility]* Diagnosis Encounter for screening for lung cancer Tobacco use current Combined forms of age-related cataract of left eye Other and combined forms of senile cataract documented in this encounter [facility] note* Diagnosis Pseudophakia- Primary Lens replaced by other means Combined forms of age-related cataract of left eye Other and combined forms of senile cataract Combined forms of age-related cataract of left eye Other and combined forms of senile cataract [facility] Diagnosis Essential hypertension Unspecified essential hypertension Combined forms of age-related cataract of left eye Other and combined forms of senile cataract [facility]* Diagnosis Preop general physical exam- Primary Other specified pre-operative examination Type 2 diabetes mellitus with diabetic peripheral angiopathy without gangrene, without long-term current use of insulin (HCC) Hyperlipidemia, unspecified hyperlipidemia type Essential hypertension Unspecified essential hypertension Chronic obstructive pulmonary disease with (acute) exacerbation (HCC) Chronic diastolic CHF (congestive heart failure) (HCC) Chronic diastolic heart failure Acute on chronic respiratory failure with hypoxia (HCC) Combined forms of age-related cataract of left eye Other and combined forms of senile cataract [facility] noteNo assessment information availableWSelect [facility] [place] Work Phone: Evaluation note* Diagnosis Pseudophakia- Primary Lens replaced by other means Type 2 diabetes mellitus without retinopathy (HCC) Type II or unspecified type diabetes mellitus without mention of complication, not stated as uncontrolled [facility] Diagnosis Medicare annual wellness visit, subsequent- Primary Routine general medical examination at a health care facility Abnormality of gait Falling episodes Lack of coordination Chronic obstructive pulmonary disease with (acute) exacerbation (HCC) Type 2 diabetes mellitus with diabetic peripheral angiopathy without gangrene, without long-term current use of insulin (HCC) Atherosclerosis of coronary artery of [place] heart without angina pectoris, unspecified vessel or lesion type Type 2 diabetes mellitus with diabetic mononeuropathy, without long-term current use of insulin (HCC) [facility]* Diagnosis Type 2 diabetes mellitus without complication, without long-term current use of insulin ([facility])- Primary [facility] this [facility]* Diagnosis Atherosclerosis of coronary artery of [place] heart without angina pectoris, unspecified vessel or lesion type documented [facility] this [facility]* Diagnosis Onychomycosis- Primary Dermatophytosis of nail Pain in toe of left foot Pain in limb Pain in toe of right foot Pain in limb Diabetic polyneuropathy associated with type 2 diabetes mellitus (HCC) Contusion of right great toe without damage to nail, initial encounter [facility] Diagnosis Contusion of right great toe without damage to nail, initial encounter [facility]* Diagnosis Hyperlipidemia, unspecified hyperlipidemia type Essential tremor Essential and other specified forms of tremor [facility] Diagnosis Stage 3 severe COPD by GOLD classification ([facility])- Primary Former cigarette smoker Personal history of tobacco use, presenting hazards to health Chronic hypoxemic respiratory failure (HCC) Chronic respiratory failure Aspiration of liquid, subsequent encounter [facility] Diagnosis Abnormality of gait- Primary Essential hypertension Unspecified essential hypertension Type 2 diabetes mellitus with diabetic mononeuropathy, without long-term current use of insulin (HCC) Rhinitis, unspecified type Atherosclerosis of coronary artery of [place] heart without angina pectoris, unspecified vessel or lesion type Anxiety disorder, unspecified type Chronic obstructive pulmonary disease with (acute) exacerbation (HCC) Cramp of muscle of both upper extremities [facility] Diagnosis Chronic obstructive pulmonary disease with (acute) exacerbation (HCC) [facility]* Diagnosis Nasal abscess- Primary Other diseases of nasal cavity and sinuses [facility]* Diagnosis Onychomycosis- Primary Dermatophytosis of nail Pain in toe of left foot Pain in limb Pain in toe of right foot Pain in limb Diabetic polyneuropathy associated with type 2 diabetes mellitus (HCC) [facility]* Diagnosis Shortness of breath- Primary Acute cough Chronic obstructive pulmonary disease with (acute) exacerbation (HCC) Chronic respiratory failure with hypoxia (HCC) Chronic respiratory failure Chronic diastolic CHF (congestive heart failure) (HCC) Chronic diastolic heart failure Type 2 diabetes mellitus with diabetic peripheral angiopathy without gangrene, without long-term current use of insulin (HCC) Muscle cramps Cramp of limb SVT (supraventricular tachycardia) (HCC) Other specified cardiac dysrhythmias Stage 3a chronic kidney disease (HCC) Essential hypertension Unspecified essential hypertension Shortness of breath Acute cough [facility] Diagnosis Shortness of breath Acute cough [facility] Diagnosis Chronic obstructive pulmonary disease with (acute) exacerbation (HCC) [facility]* Diagnosis Stage 3 severe COPD by GOLD classification ([facility])- Primary [facility]* Diagnosis Atherosclerosis of coronary artery of [place] heart without angina pectoris, unspecified vessel or lesion type Chronic obstructive pulmonary disease with (acute) exacerbation (HCC) [facility] Diagnosis Onychomycosis- Primary Dermatophytosis of nail Pain in toe of left foot Pain in limb Pain in toe of right foot Pain in limb Diabetic polyneuropathy associated with type 2 diabetes mellitus (HCC) [facility]* Diagnosis Nasal sore- Primary Other diseases of nasal cavity and sinuses Essential hypertension Unspecified essential hypertension Type 2 diabetes mellitus with diabetic mononeuropathy, without long-term current use of insulin (HCC) Chronic respiratory failure with hypoxia (HCC) Chronic respiratory failure Anemia, unspecified type documented [facility]* Diagnosis Stage 3 severe COPD by GOLD classification ([facility]) documented [facility] this encounter [facility]* Diagnosis Stage 4 very severe COPD by GOLD classification ([facility])- Primary Chronic hypoxemic respiratory failure (HCC) Chronic respiratory failure Current smoker on some days Tobacco use disorder Stage 4 very severe COPD by GOLD classification ([facility]) documented [facility]* Diagnosis Stage 4 very severe COPD by GOLD classification ([facility]) [facility]* Diagnosis Cigarette smoker- Primary Tobacco use disorder [facility]* Diagnosis Cigarette smoker Tobacco use disorder [facility]* Diagnosis Essential tremor Essential and other specified forms of tremor [facility]* Diagnosis Onychomycosis- Primary Dermatophytosis of nail Pain in toe of left foot Pain in limb Pain in toe of right foot Pain in limb Diabetic polyneuropathy associated with type 2 diabetes mellitus (HCC) Hyperkeratosis Acquired keratoderma Hammer toe, unspecified laterality [facility]* Diagnosis Multiple lung nodules- Primary Other nonspecific abnormal finding of lung field Encounter for screening for lung cancer Former tobacco use Personal history of tobacco use, presenting hazards to health Localized enlarged lymph nodes Enlargement of lymph nodes [facility]* Diagnosis Medicare annual wellness visit, subsequent- Primary Routine general medical examination at a health care facility Essential hypertension Unspecified essential hypertension Hyperlipidemia, unspecified hyperlipidemia type Type 2 diabetes mellitus with diabetic mononeuropathy, without long-term current use of insulin (HCC) Atherosclerosis of coronary artery of [place] without angina pectoris, unspecified vessel or lesion type Rhinitis, unspecified type Anxiety disorder, unspecified type Chronic diastolic CHF (congestive heart failure) (HCC) Chronic diastolic heart failure Centrilobular emphysema (HCC) Other emphysema Stage 3a chronic kidney disease (HCC) documented [facility]* Diagnosis Localized enlarged lymph nodes Enlargement of lymph nodes documented [facility] this [facility]* Diagnosis Type 2 diabetes mellitus without complication, without long-term current use of insulin (HCC) Type 2 diabetes mellitus with both eyes affected by mild nonproliferative retinopathy without macular edema, without long-term current use of insulin (HCC) documented [facility] this [facility]* Diagnosis Chronic obstructive pulmonary disease with (acute) exacerbation (HCC) documented [facility] this encounter [facility]* Diagnosis Chronic hypoxemic respiratory failure (HCC)- Primary Chronic respiratory failure Chronic diastolic CHF (congestive heart failure) (HCC) Chronic diastolic heart failure Essential hypertension Unspecified essential hypertension Atherosclerosis of coronary artery of [place] without angina pectoris, unspecified vessel or lesion type Chronic obstructive pulmonary disease with (acute) exacerbation (HCC) documented [facility] this encounter [facility]* Diagnosis Onychomycosis- Primary Dermatophytosis of nail Pain in toe of left foot Pain in limb Pain in toe of right foot Pain in limb Diabetic polyneuropathy associated with type 2 diabetes mellitus (HCC) Hyperkeratosis Acquired keratoderma Hammer toe, unspecified laterality documented in this encounter [facility] for referral (narrative)* Outpatient Procedure (Routine) - Closed Specialty Diagnoses / Procedures Referred By Vaibhav aden Referred To Contact [facility] Diagnoses Stenosis of left carotid artery Procedures US CAROTID ARTERIES ALLY VAS LAB DUPLEX SCAN EXTRACRANIAL ART COMPL BI STUDY Sharon Limon DO [address] [place] [address] [facility] [place] [address] [place] [address] Referral ID Status Reason Start Date Expiration Date V isits Requested Visits Authorized [id number] Closed Auto-Generate d Referral 10/30/2021 07/27/2022 1 1 [facility] for referral (narrative)* Outpatient Procedure (Routine) - Pending Review Specialty Diagnoses / Procedures Referred By Contac t Referred To [facility] [place] Diagnoses Facial weakness Procedures EPIL EEG ROUTINE ELECTROENCEPHALOGRAM REC COMA/SLEEP ONLY Jocelyne Mcknight APRN.CNP [address] [id number] [place] [id number] Referral ID Status Reason Start Date Expiration Date Visits Requested Visits Authorized [id number] Pending Review Auto-Generat ed Referral 02/21/2022 02/21/2023 1 1 [facility] for referral (narrative)* Diagnostic Procedure Only (Routine) - Authorized Specialty Diagnoses / Procedures Referred By Contac t Referred To [facility] [place] Diagnoses Chronic bronchitis, unspecified chronic bronchitis type (HCC) Procedures LUNG VOLUMES Royce Carroll MD [address] [place] [address] [address] Referral ID Status Reason Start Date Expiration Date V isits Requested Visits Authorized [id number] Authorized 07/04/2022 07/27/2022 1 1 * Outpatient Procedure (Routine) - Authorized Specialty Diagnoses / Procedures Referred By Contac t Referred To [facility] [place] Diagnoses Chronic bronchitis, unspecified chronic bronchitis type (HCC) Procedures SPIROMETRY - BASELINE AND POST DILATOR BRNCDILAT RSPSE SPMTRY PRE&POST-BRNCDILAT ADMN Royce Carroll MD [address] [place] [address] [place] [id number] Referral ID Status Reason Start Date Expiration Date Visits Requested Visits Authorized [id number] Authorized Auto-Generat ed Referral 07/04/2022 08/03/2023 1 1 [facility] for referral (narrative)* Diagnostic Procedure Only (Routine) - Pending Review Specialty Diagnoses / Procedures Referred By Contac t Referred To Contact US IMAGING Diagnoses Bilateral lower extremity edema Bilateral lower extremity pain Procedures US DVT LOWER BILATERAL DUP-SCAN XTR VEINS COMPLETE BILATERAL STUDY Older, Gabby, ORTHOTIC TECHNICIAN.WINERY WORKER [address] [place] [address] Us Imaging Referral ID Status Reason Start Date Expiration Date Visits Requested Visits Authorized [id number] Pending Review Auto-Generat ed Referral 12/31/2022 01/30/2024 1 1 * Outpatient Procedure (Routine) - Closed Specialty Diagnoses / Procedures Referred By Contac t Referred To Contact [facility] Diagnoses Bilateral lower extremity edema Bilateral lower extremity pain Procedures US LEG VEIN DVT ALLY VAS LAB DUP-SCAN XTR VEINS COMPLETE BILATERAL STUDY Gabby De La Cruz APRN.WINERY WORKER [address] [place] [address] [facility] [address] [place] [address] Referral ID Status Reason Start Date Expiration Date V isits Requested Visits Authorized [id number] Closed Auto-Generate d Referral 12/31/2022 12/31/2023 1 1 [facility] for referral (narrative)* Diagnostic Procedure Only (Routine) - Closed Specialty Diagnoses / Procedures Referred By Contac t Referred To Contact XR IMAGING Diagnoses Contusion of right great toe without damage to nail, initial encounter Procedures XR TOE AP/LAT/OBL RIGHT RADEX TOE MINIMUM [address] [place] [address] [place] [address] Referral ID Status Reason Start Date Expiration Date V isits Requested Visits Authorized [id number] Closed Auto-Generate d Referral 11/04/2023 12/03/2024 1 1 [facility] for referral (narrative)* Outpatient Procedure (Routine) - Closed Specialty Diagnoses / Procedures Referred By Contac t Referred To Contact [facility] Diagnoses Chronic obstructive pulmonary disease, unspecified COPD type ([facility]) Procedures OXIMETRY WITH AMBULATION NONINVASIVE EAR/PULSE OXIMETRY MULTIPLE Clark Sarkar MD [address] [place] [address] Respiratory [place] [address] [place] [address] Referral ID Status Reason Start Date Expiration Date V isits Requested Visits Authorized [id number] Closed Auto-Generate d Referral 07/01/2024 07/27/2024 1 1 [facility] for referral (narrative)No reason for referral information availableWSelect Medical [facility] [place] Work Phone: [facility] for visit Narrative* Diagnostic Procedure Only (Routine) - Closed Specialty Diagnoses / Procedures Referred By Contac t Referred To Contact XR IMAGING Diagnoses Contusion of right great toe without damage to nail, initial encounter Procedures XR TOE AP/LAT/OBL RIGHT RADEX TOE MINIMUM 2 VIEWS lOu Miller [address] [place] [address] [place] [address] Referral ID Status Reason Start Date Expiration Date V isits Requested Visits Authorized [id number] Closed Auto-Generate d Referral 11/04/2023 12/03/2024 1 1 [facility] for visit Narrative* Outpatient Procedure (Routine) - Closed Specialty Diagnoses / Procedures Referred By Contac t Referred To Contact [facility] Diagnoses Stage 3 severe COPD by GOLD classification ([facility]) Procedures SPIROMETRY WITH DILATOR IF OBSTRUCTED BRNCDILAT RSPSE SPMTRY PRE&POST-BRNCDILAT ADMClark Bojorquez MD [address] [place] [address] [facility] [place] [address] [place] [address] Referral ID Status Reason Start Date Expiration Date V isits Requested Visits Authorized [id number] Closed Auto-Generate d Referral 12/02/2023 12/31/2024 1 1 [facility] Summary Purpose Family History Relationship Condition Age at Onset Recorded Date/[place] mother Malignant neoplasm Unknown son Malignant neoplasm Unknown father Cardiac disease Unknown Hypertension Unknown Cerebrovascular accident (CVA) Unknown Advance Directives Advance Directive Response Recorded Date/ Time Advance Directives No March 25, 2016 9:39am Living Will No December 11, 2022 3 :01am Power of Clothing And Textiles Teacher Yes December 11, 2022 3:01am Advance Directive Response Recorded Date/ Time Living Will No November 03, 2024 6:20pm Do you have a Healthcare Power of Clothing And Textiles Teacher? No November 03, 2024 6:20pm Advance Directives No March 25, 2016 10:39am Advance Directive Response Recorded Date/ Time Living Will No November 03, 2024 10:18pm Do you have a Healthcare Power of Clothing And Textiles Teacher? No November 03, 2024 10:18pm Advance Directives No March 25, 2016 10:39am Advance Directive Response Recorded Date/ Time Living Will No November 03, 2024 10:18pm Do you have a Healthcare Power of Clothing And Textiles Teacher? No November 03, 2024 10:18pm Do you have a Healthcare Power of Clothing And Textiles Teacher? No January 04, 2025 12:11pm Advance Directives No March 25, 2016 10:39am Reason for Referral Specialty Diagnoses / Procedures Referred By Vaibhav t Referred To Contact Vascular Medicine Diagnoses Stenosis of left carotid artery Procedures CONSULT TO VASCULAR MEDICINE OFFICE/OUTPATIENT [facility] 60-74 MINUTES Jocelyne Mcknight, ORTHOTIC TECHNICIAN.WINERY WORKER [address] [place] [address] Referral ID Status Reason Start Date Expiration Date Visits Requested Visits Authorized [id number] Pending Review PCP Requested Referral 10/15/2021 10/15/2022 1 1 Specialty Diagnoses / Procedures Referred By Vaibhav aden Referred To Contact CT IMAGING Diagnoses Transient cerebral ischemia, unspecified type Procedures CTA NECK W IVCON CT ANGIOGRAPHY NECK W/CONTRAST/NONCONTRAST Jocelyne Mcknight, ORTHOTIC TECHNICIAN.WINERY WORKER [address] [place] [address] Ct Imaging Referral ID Status Reason Start Date Expiration Date V isits Requested Visits Authorized [id number] Closed Auto-Generate d Referral 10/04/2021 11/03/2022 1 1 Specialty Diagnoses / Procedures Referred By Contac t Referred To Contact CT IMAGING Diagnoses Lung nodules Procedures CT CHEST WO IVCON DIAGNOSTIC COMPUTED TOMOGRAPHY THORAX W/O Royce Gregory MD [facility] [place] [address] Ct Imaging Referral ID Status Reason Start Date Expiration Date Visits Requested Visits Authorized [id number] Authorized Auto-Generat ed Referral 10/17/2021 11/16/2022 1 1 Specialty Diagnoses / Procedures Referred By Contac t Referred To Contact MR IMAGING Diagnoses Transient cerebral ischemia, unspecified type Procedures MRI BRAIN WO IVCON MRI BRAIN BRAIN STEM W/O CONTRAST MATERIAL Jocelyne Mcknight, ORTHOTIC TECHNICIAN.WINERY WORKER [address] [place] [address] Mr Imaging Referral ID Status Reason Start Date Expiration Date V isits Requested Visits Authorized [id number] Closed Auto-Generate d Referral 10/04/2021 11/03/2022 1 1 Referral ID Status Reason Start Date Expiration Date V isits Requested Visits Authorized [id number] Closed Auto-Generate d Referral 10/17/2021 11/16/2022 1 1 Specialty Diagnoses / Procedures Referred By Contac t Referred To Contact Cardiology Diagnoses SVT (supraventricular tachycardia) (HCC) V-tach (HCC) Procedures CONSULT TO CARDIOLOGY OFFICE/OUTPATIENT [facility] MDM 60-74 MINUTES Jocelyne Mcknight, ORTHOTIC TECHNICIAN.WINERY WORKER [address] [place] [address] Referral ID Status Reason Start Date Expiration Date Visits Requested Visits Authorized [id number] Pending Review PCP Requested Referral 11/15/2021 11/15/2022 1 1 Specialty Diagnoses / Procedures Referred By Contac t Referred To Contact Ophthalmology Diagnoses Type 2 diabetes mellitus with diabetic peripheral angiopathy without gangrene, without long-term current use of insulin (HCC) Procedures CONSULT TO OPHTHALMOLOGY OFFICE/OUTPATIENT [facility] 60-74 MINUTES Royce Carroll MD [address] [place] [address] Referral ID Status Reason Start Date Expiration Date Visits Requested Visits Authorized [id number] Pending Review PCP Requested Referral 01/14/2022 01/14/2023 1 1 Specialty Diagnoses / Procedures Referred By Contac t Referred To Contact CT IMAGING Diagnoses Encounter for screening for lung cancer Tobacco use current Procedures CT LUNG SCREEN WO IVCON COMPUTED TOMOGRAPHY THORAX LW DOSE LNG CA SCR Gianni Crook, ORTHOTIC TECHNICIAN.WINERY WORKER [address] [place] [address] Ct Imaging Referral ID Status Reason Start Date Expiration Date Visits Requested Visits Authorized [id number] Authorized Auto-Generat ed Referral 10/22/2022 11/21/2023 1 1 Referral ID Status Reason Start Date Expiration Date Visits Requested Visits Authorized [id number] Pending Review Auto-Generat ed Referral 10/31/2023 11/29/2023 1 1 Specialty Diagnoses / Procedures Referred By Contac t Referred To Contact Neurology Diagnoses Facial weakness Left arm weakness History of stroke Procedures CONSULT TO NEUROLOGY OFFICE/OUTPATIENT [facility] 60-74 MINUTES Jocelyne Mcknight, FLOYD.WINERY WORKER [address] [place] [address] Referral ID Status Reason Start Date Expiration Date Visits Requested Visits Authorized [id number] Pending Review PCP Requested Referral 02/13/2023 02/13/2024 1 1 Specialty Diagnoses / Procedures Referred By Contac t Referred To Contact Cardiology Diagnoses SVT (supraventricular tachycardia) ([facility]) V-tach (HCC) Procedures CONSULT TO CARDIOLOGY OFFICE/OUTPATIENT [facility] 60-74 MINUTES Jocelyne Mcknight APRN.WINERY WORKER [address] [place] [address] Referral ID Status Reason Start Date Expiration Date Visits Requested Visits Authorized [id number] Pending Review PCP Requested Referral 02/13/2023 02/13/2024 1 1 Specialty Diagnoses / Procedures Referred By Contac t Referred To Contact [facility] Diagnoses Facial weakness Left arm weakness History of stroke Procedures EPIL EEG ROUTINE ELECTROENCEPHALOGRAM REC COMA/SLEEP ONLY Jocelyne Mcknight, ORTHOTIC TECHNICIAN.WINERY WORKER [address] [place] [address] [facility] [place] [address] [place] [address] Referral ID Status Reason Start Date Expiration Date Visits Requested Visits Authorized [id number] Authorized Auto-Generat ed Referral 02/13/2023 02/14/2024 1 1 Specialty Diagnoses / Procedures Referred By Contac t Referred To Contact CT IMAGING Diagnoses Encounter for screening for lung cancer Tobacco use current Procedures CT LUNG SCREEN WO IVCON COMPUTED TOMOGRAPHY THORAX LW DOSE LNG CA SCR [employer]- Gianni Velazquez APRN.WINERY WORKER [address] [place] [address] Ct [id number] Referral ID Status Reason Start Date Expiration Date V isits Requested Visits Authorized [id number] Closed Auto-Generate d Referral 10/22/2022 11/21/2023 1 1 Specialty Diagnoses / Procedures Referred By Contac t Referred To Contact [facility] Diagnoses Aspiration of liquid, subsequent encounter Procedures CONSULT TO SPEECH THERAPY OFFICE/OUTPATIENT [facility] 60 MINUTES Clark Rothman MD [address] [place] [address] [facility] [place] [address] [place] [address] Referral ID Status Reason Start Date Expiration Date Visits Requested Visits Authorized [id number] Pending Review Auto-Generat ed Referral 12/02/2023 12/01/2024 1 1 Specialty Diagnoses / Procedures Referred By Rosaac t Referred To Contact [facility] Diagnoses Stage 3 severe COPD by GOLD classification (HCC) Procedures SPIROMETRY WITH DILATOR IF OBSTRUCTED BRNCDILAT RSPSE SPMTRY PRE&POST-BRNCDILAT ADMN Clark Rothman MD [address] [place] [address] [facility] [place] [address] [place] [address] Referral ID Status Reason Start Date Expiration Date Visits Requested Visits Authorized [id number] Authorized Auto-Generat ed Referral 12/02/2023 12/31/2024 1 1 Specialty Diagnoses / Procedures Referred By Contac t Referred To Contact CT [facility] Diagnoses Cigarette smoker Procedures CT LUNG SCREEN WO IVCON COMPUTED TOMOGRAPHY THORAX LW DOSE LNG CA SCR Kirstin Hunt, ORTHOTIC TECHNICIAN.WINERY WORKER [address] [place] [address] [place] [address] Referral ID Status Reason Start Date Expiration Date Visits Requested Visits Authorized [id number] New Request Auto-Generat ed Referral 08/07/2025 1 1 Medications Administered Section Active Administered Medications - up to 3 most recent administrations Medication Order MAR Action Action Date Dose Rate Site PHENYLephrine 2.5 % 1 Drop (AK-DILATE, SIDNEY-SYNEPHRINE) 1 Drop, BOTH EYES, DIRECTED, Starting on Fri02/03/23 at 1330, Until Fri02/04/23 at 0129, Administer for dilation PROTECT FROM LIGHT Given 02/03/2023 1:30 PM EDT 1 Drop proparacaine 0.5 % 1 Drop (ALCAINE) 1 Drop, BOTH EYES, DIRECTED, Starting on Fri02/03/23 at 1330, Until Fri02/04/23 at 0129, Administer for pneumo tonometry, tonopen tonometry, or pachymetry. In the event of a proparacaine shortage, administer tetracaine 0.5% ophthalmic drops 1 drop in the left eye as directed for pneumo tonometry, tonopen tonometry, or pachymetry Given 02/03/2023 1:30 PM EDT 1 Drop tropicamide 1 % 1 Drop (MYDRIACYL) 1 Drop, BOTH EYES, DIRECTED, Starting on Fri02/03/23 at 1330, Until Fri02/04/23 at 0129, Administer for dilation Given 02/03/2023 1:30 PM EDT 1 Drop Active Administered Medications - up to 3 most recent administrations Medication Order MAR Action Action Date Dose Rate Site PHENYLephrine 2.5 % 1 Drop (AK-DILATE, SIDNEY-SYNEPHRINE) 1 Drop, BOTH EYES, DIRECTED, Starting on Fri02/19/23 at 1630, Until Nona 02/20/23 at 0429, Administer for dilation PROTECT FROM LIGHT Given 02/19/2023 5:01 PM EDT 1 Drop proparacaine 0.5 % 1 Drop (ALCAINE) 1 Drop, BOTH EYES, DIRECTED, Starting on Fri02/19/23 at 1630, Until Fri02/20/23 at 0429, Administer for pneumo tonometry, tonopen tonometry, or pachymetry. In the event of a proparacaine shortage, administer tetracaine 0.5% ophthalmic drops 1 drop in the left eye as directed for pneumo tonometry, tonopen tonometry, or pachymetry Given 02/19/2023 5:01 PM EDT 1 Drop tropicamide 1 % 1 Drop (MYDRIACYL) 1 Drop, BOTH EYES, DIRECTED, Starting on Fri02/19/23 at 1630, Until Fri02/20/23 at 0429, Administer for dilation Given 02/19/2023 5:01 PM EDT 1 Drop Chief Complaint and Reason for Visit Chief Complaint DYSPHAGIA Chief Complaint Admit Date ASPIRATION PNA & AE COPD November 03, 2024 9:18pm Chief Complaint Admit Date ASPIRATION PNA & AE COPD November 03, 2024 9:18pm Arrhythmia November 03, 2024 11:1 2pm ASPIRATION PNA & AE COPD November 04 3:38pm ASPIRATION PNA & AE COPD November 05 1:54pm ASPIRATION PNA & AE COPD November 06 9:31am ASPIRATION PNA & AE COPD November 07 9:03am ASPIRATION PNA & AE COPD November 08 10:49am ASPIRATION PNA & AE COPD November 08 12:27pm ASPIRATION PNA & AE COPD November 09 8:59am ASPIRATION PNA & AE COPD November 09 1:14pm ASPIRATION PNA & AE COPD November 09 1:37pm ASPIRATION PNA & AE COPD November 10 10:42am ASPIRATION PNA & AE COPD November 10 12:41pm ASPIRATION PNA & AE COPD November 11 12:51pm ASPIRATION PNA & AE COPD November 12 3:26pm Reason for Visit Admit Date Aspiration pneumonia November 03, 2024 9:1 8pm Chest pain November 03, 2024 9:18 pm Diabetes mellitus, type 2 November 03 9:18pm Elevated troponin November 03, 2024 9:18 pm Essential hypertension November 03, 2024 9 :18pm LV dysfunction November 03, 2024 9:18 pm Macrocytic anemia November 03, 2024 9:18 pm Respiratory insufficiency November 03 9:18pm COPD exacerbation November 03, 2024 9:18 pm Coronary artery disease November 03, 2024 9:18pm History of TIA (transient ischemic attac k) November 03, 2024 9:18pm Reason for Visit Admit Date History of TIA (transient ischemic attac k) November 03, 2024 9:18pm Aspiration pneumonia November 03, 2024 9:1 8pm Chest pain November 03, 2024 9:18 pm COPD exacerbation November 03, 2024 9:18 pm Coronary artery disease November 03, 2024 9:18pm Diabetes mellitus, type 2 November 03 9:18pm Elevated troponin November 03, 2024 9:18 pm Essential hypertension November 03, 2024 9 :18pm LV dysfunction November 03, 2024 9:18 pm Macrocytic anemia November 03, 2024 9:18 pm Respiratory insufficiency November 03 9:18pm Chief Complaint Admit Date ASPIRATION PNA & AE COPD November 03, 2024 9:18pm Arrhythmia November 03, 2024 11:1 2pm ASPIRATION PNA & AE COPD November 04 3:38pm ASPIRATION PNA & AE COPD November 05 1:54pm ASPIRATION PNA & AE COPD November 06 9:31am ASPIRATION PNA & AE COPD November 07 9:03am ASPIRATION PNA & AE COPD November 08 10:49am ASPIRATION PNA & AE COPD November 08 12:27pm ASPIRATION PNA & AE COPD November 09 8:59am ASPIRATION PNA & AE COPD November 09 1:14pm ASPIRATION PNA & AE COPD November 09 1:37pm ASPIRATION PNA & AE COPD November 10 10:42am ASPIRATION PNA & AE COPD November 10 12:41pm ASPIRATION PNA & AE COPD November 11 12:51pm ASPIRATION PNA & AE COPD November 12 3:26pm COPD EXACERBATION January 04, 2025 3:59 pm Additional Source Comments (unrecognized sect ion and content) No Status Records FoundNo Status Records FoundNo Status Records FoundNo Status Records FoundNo Status Records Found INFORMATION SOURCE (unrecogn ized section and content) DATE CREATED AUTHOR 11/18/2019 [facility] DATE CREATED AUTHOR AUTHOR'S ORGANIZ ATION 04/20/2023 [facility] DATE CREATED AUTHOR AUTHOR'S ORGANIZ ATION 07/08/2023 [facility] DATE CREATED AUTHOR AUTHOR'S ORGANIZ ATION 12/01/2024 [facility] DATE CREATED AUTHOR AUTHOR'S ORGANIZ ATION 12/09/2024 [facility] Source Comments (unrecognize d section and content) In the event this informatio n is protected by the Federal Confidentiality of Alcohol and Drug Abuse Patient Records regulations: The Federal rules restrict any use of the information to criminally investigate or prosecute any alcohol or drug abuse patient.[facility] the event this information is protected by the Federal Confidentiality of Alcohol and Drug Abuse Patient Records regulations: The Federal rules restrict any use of the information to criminally investigate or prosecute any alcohol or drug abuse patient.[facility]In the event this information is protected by the Federal Confidentiality of Alcohol and Drug Abuse Patient Records regulations: The Federal rules restrict any use of the information to criminally investigate or prosecute any alcohol or drug abuse patient.[facility] the event this information is protected by the Federal Confidentiality of Alcohol and Drug Abuse Patient Records regulations: The Federal rules restrict any use of the information to criminally investigate or prosecute any alcohol or drug abuse patient.[facility]In the event this information is protected by the Federal Confidentiality of Alcohol and Drug Abuse Patient Records regulations: The Federal rules restrict any use of the information to criminally investigate or prosecute any alcohol or drug abuse patient.[facility]In the event this information is protected by the Federal Confidentiality of Alcohol and Drug Abuse Patient Records regulations: The Federal rules restrict any use of the information to criminally investigate or prosecute any alcohol or drug abuse patient.[facility] AndersonIn the event this information is protected by the Federal Confidentiality of Alcohol and Drug Abuse Patient Records regulations: The Federal rules restrict any use of the information to criminally investigate or prosecute any alcohol or drug abuse patient.[facility] AndersonIn the event this information is protected by the Federal Confidentiality of Alcohol and Drug Abuse Patient Records regulations: The Federal rules restrict any use of the information to criminally investigate or prosecute any alcohol or drug abuse patient.[facility]In the event this information is protected by the Federal Confidentiality of Alcohol and Drug Abuse Patient Records regulations: The Federal rules restrict any use of the information to criminally investigate or prosecute any alcohol or drug abuse patient.[facility] AndersonIn the event this information is protected by the Federal Confidentiality of Alcohol and Drug Abuse Patient Records regulations: The Federal rules restrict any use of the information to criminally investigate or prosecute any alcohol or drug abuse patient.[facility] AndersonIn the event this information is protected by the Federal Confidentiality of Alcohol and Drug Abuse Patient Records regulations: The Federal rules restrict any use of the information to criminally investigate or prosecute any alcohol or drug abuse patient.[facility] AndersonIn the event this information is protected by the Federal Confidentiality of Alcohol and Drug Abuse Patient Records regulations: The Federal rules restrict any use of the information to criminally investigate or prosecute any alcohol or drug abuse patient.[facility] AndersonIn the event this information is protected by the Federal Confidentiality of Alcohol and Drug Abuse Patient Records regulations: The Federal rules restrict any use of the information to criminally investigate or prosecute any alcohol or drug abuse patient.[facility]In the event this information is protected by the Federal Confidentiality of Alcohol and Drug Abuse Patient Records regulations: The Federal rules restrict any use of the information to criminally investigate or prosecute any alcohol or drug abuse patient.[facility] AndersonIn the event this information is protected by the Federal Confidentiality of Alcohol and Drug Abuse Patient Records regulations: The Federal rules restrict any use of the information to criminally investigate or prosecute any alcohol or drug abuse patient.[facility] AndersonIn the event this information is protected by the Federal Confidentiality of Alcohol and Drug Abuse Patient Records regulations: The Federal rules restrict any use of the information to criminally investigate or prosecute any alcohol or drug abuse patient.[facility] AndersonIn the event this information is protected by the Federal Confidentiality of Alcohol and Drug Abuse Patient Records regulations: The Federal rules restrict any use of the information to criminally investigate or prosecute any alcohol or drug abuse patient.[facility] AndersonIn the event this information is protected by the Federal Confidentiality of Alcohol and Drug Abuse Patient Records regulations: The Federal rules restrict any use of the information to criminally investigate or prosecute any alcohol or drug abuse patient.[facility] AndersonIn the event this information is protected by the Federal Confidentiality of Alcohol and Drug Abuse Patient Records regulations: The Federal rules restrict any use of the information to criminally investigate or prosecute any alcohol or drug abuse patient.[facility]In the event this information is protected by the Federal Confidentiality of Alcohol and Drug Abuse Patient Records regulations: The Federal rules restrict any use of the information to criminally investigate or prosecute any alcohol or drug abuse patient.[facility]In the event this information is protected by the Federal Confidentiality of Alcohol and Drug Abuse Patient Records regulations: The Federal rules restrict any use of the information to criminally investigate or prosecute any alcohol or drug abuse patient.[facility]In the event this information is protected by the Federal Confidentiality of Alcohol and Drug Abuse Patient Records regulations: The Federal rules restrict any use of the information to criminally investigate or prosecute any alcohol or drug abuse patient.[facility] AndersonIn the event this information is protected by the Federal Confidentiality of Alcohol and Drug Abuse Patient Records regulations: The Federal rules restrict any use of the information to criminally investigate or prosecute any alcohol or drug abuse patient.[facility] AndersonIn the event this information is protected by the Federal Confidentiality of Alcohol and Drug Abuse Patient Records regulations: The Federal rules restrict any use of the information to criminally investigate or prosecute any alcohol or drug abuse patient.[facility] AndersonIn the event this information is protected by the Federal Confidentiality of Alcohol and Drug Abuse Patient Records regulations: The Federal rules restrict any use of the information to criminally investigate or prosecute any alcohol or drug abuse patient.[facility] AndersonIn the event this information is protected by the Federal Confidentiality of Alcohol and Drug Abuse Patient Records regulations: The Federal rules restrict any use of the information to criminally investigate or prosecute any alcohol or drug abuse patient.[facility] AndersonIn the event this information is protected by the Federal Confidentiality of Alcohol and Drug Abuse Patient Records regulations: The Federal rules restrict any use of the information to criminally investigate or prosecute any alcohol or drug abuse patient.[facility]In the event this information is protected by the Federal Confidentiality of Alcohol and Drug Abuse Patient Records regulations: The Federal rules restrict any use of the information to criminally investigate or prosecute any alcohol or drug abuse patient.[facility]In the event this information is protected by the Federal Confidentiality of Alcohol and Drug Abuse Patient Records regulations: The Federal rules restrict any use of the information to criminally investigate or prosecute any alcohol or drug abuse patient.[facility]In the event this information is protected by the Federal Confidentiality of Alcohol and Drug Abuse Patient Records regulations: The Federal rules restrict any use of the information to criminally investigate or prosecute any alcohol or drug abuse patient.[facility]In the event this information is protected by the Federal Confidentiality of Alcohol and Drug Abuse Patient Records regulations: The Federal rules restrict any use of the information to criminally investigate or prosecute any alcohol or drug abuse patient.[facility]In the event this information is protected by the Federal Confidentiality of Alcohol and Drug Abuse Patient Records regulations: The Federal rules restrict any use of the information to criminally investigate or prosecute any alcohol or drug abuse patient.[facility] AndersonIn the event this information is protected by the Federal Confidentiality of Alcohol and Drug Abuse Patient Records regulations: The Federal rules restrict any use of the information to criminally investigate or prosecute any alcohol or drug abuse patient.[facility]In the event this information is protected by the Federal Confidentiality of Alcohol and Drug Abuse Patient Records regulations: The Federal rules restrict any use of the information to criminally investigate or prosecute any alcohol or drug abuse patient.[facility]In the event this information is protected by the Federal Confidentiality of Alcohol and Drug Abuse Patient Records regulations: The Federal rules restrict any use of the information to criminally investigate or prosecute any alcohol or drug abuse patient.[facility] [place]In the event this information is protected by the Federal Confidentiality of Alcohol and Drug Abuse Patient Records regulations: The Federal rules restrict any use of the information to criminally investigate or prosecute any alcohol or drug abuse patient.[facility] AndersonIn the event this information is protected by the Federal Confidentiality of Alcohol and Drug Abuse Patient Records regulations: The Federal rules restrict any use of the information to criminally investigate or prosecute any alcohol or drug abuse patient.[facility] [place]In the event this information is protected by the Federal Confidentiality of Alcohol and Drug Abuse Patient Records regulations: The Federal rules restrict any use of the information to criminally investigate or prosecute any alcohol or drug abuse patient.[facility]In the event this information is protected by the Federal Confidentiality of Alcohol and Drug Abuse Patient Records regulations: The Federal rules restrict any use of the information to criminally investigate or prosecute any alcohol or drug abuse patient.[facility] AndersonIn the event this information is protected by the Federal Confidentiality of Alcohol and Drug Abuse Patient Records regulations: The Federal rules restrict any use of the information to criminally investigate or prosecute any alcohol or drug abuse patient.[facility] [place]In the event this information is protected by the Federal Confidentiality of Alcohol and Drug Abuse Patient Records regulations: The Federal rules restrict any use of the information to criminally investigate or prosecute any alcohol or drug abuse patient.[facility]In the event this information is protected by the Federal Confidentiality of Alcohol and Drug Abuse Patient Records regulations: The Federal rules restrict any use of the information to criminally investigate or prosecute any alcohol or drug abuse patient.[facility] AndersonIn the event this information is protected by the Federal Confidentiality of Alcohol and Drug Abuse Patient Records regulations: The Federal rules restrict any use of the information to criminally investigate or prosecute any alcohol or drug abuse patient.[facility] AndersonIn the event this information is protected by the Federal Confidentiality of Alcohol and Drug Abuse Patient Records regulations: The Federal rules restrict any use of the information to criminally investigate or prosecute any alcohol or drug abuse patient.[facility] [place]In the event this information is protected by the Federal Confidentiality of Alcohol and Drug Abuse Patient Records regulations: The Federal rules restrict any use of the information to criminally investigate or prosecute any alcohol or drug abuse patient.[facility] [place]In the event this information is protected by the Federal Confidentiality of Alcohol and Drug Abuse Patient Records regulations: The Federal rules restrict any use of the information to criminally investigate or prosecute any alcohol or drug abuse patient.[facility] [place]In the event this information is protected by the Federal Confidentiality of Alcohol and Drug Abuse Patient Records regulations: The Federal rules restrict any use of the information to criminally investigate or prosecute any alcohol or drug abuse patient.[facility] [place]In the event this information is protected by the Federal Confidentiality of Alcohol and Drug Abuse Patient Records regulations: The Federal rules restrict any use of the information to criminally investigate or prosecute any alcohol or drug abuse patient.[facility] [place]In the event this information is protected by the Federal Confidentiality of Alcohol and Drug Abuse Patient Records regulations: The Federal rules restrict any use of the information to criminally investigate or prosecute any alcohol or drug abuse patient.[facility] [place]In the event this information is protected by the Federal Confidentiality of Alcohol and Drug Abuse Patient Records regulations: The Federal rules restrict any use of the information to criminally investigate or prosecute any alcohol or drug abuse patient.[facility] [place]In the event this information is protected by the Federal Confidentiality of Alcohol and Drug Abuse Patient Records regulations: The Federal rules restrict any use of the information to criminally investigate or prosecute any alcohol or drug abuse patient.[facility] [place]In the event this information is protected by the Federal Confidentiality of Alcohol and Drug Abuse Patient Records regulations: The Federal rules restrict any use of the information to criminally investigate or prosecute any alcohol or drug abuse patient.[facility] [place]In the event this information is protected by the Federal Confidentiality of Alcohol and Drug Abuse Patient Records regulations: The Federal rules restrict any use of the information to criminally investigate or prosecute any alcohol or drug abuse patient.[facility] the event this information is protected by the Federal Confidentiality of Alcohol and Drug Abuse Patient Records regulations: The Federal rules restrict any use of the information to criminally investigate or prosecute any alcohol or drug abuse patient.[facility] AndersonIn the event this information is protected by the Federal Confidentiality of Alcohol and Drug Abuse Patient Records regulations: The Federal rules restrict any use of the information to criminally investigate or prosecute any alcohol or drug abuse patient.[facility] AndersonIn the event this information is protected by the Federal Confidentiality of Alcohol and Drug Abuse Patient Records regulations: The Federal rules restrict any use of the information to criminally investigate or prosecute any alcohol or drug abuse patient.[facility]In the event this information is protected by the Federal Confidentiality of Alcohol and Drug Abuse Patient Records regulations: The Federal rules restrict any use of the information to criminally investigate or prosecute any alcohol or drug abuse patient.[facility] AndersonIn the event this information is protected by the Federal Confidentiality of Alcohol and Drug Abuse Patient Records regulations: The Federal rules restrict any use of the information to criminally investigate or prosecute any alcohol or drug abuse patient.[facility] AndersonIn the event this information is protected by the Federal Confidentiality of Alcohol and Drug Abuse Patient Records regulations: The Federal rules restrict any use of the information to criminally investigate or prosecute any alcohol or drug abuse patient.[facility] AndersonIn the event this information is protected by the Federal Confidentiality of Alcohol and Drug Abuse Patient Records regulations: The Federal rules restrict any use of the information to criminally investigate or prosecute any alcohol or drug abuse patient.[facility] AndersonIn the event this information is protected by the Federal Confidentiality of Alcohol and Drug Abuse Patient Records regulations: The Federal rules restrict any use of the information to criminally investigate or prosecute any alcohol or drug abuse patient.[facility] AndersonIn the event this information is protected by the Federal Confidentiality of Alcohol and Drug Abuse Patient Records regulations: The Federal rules restrict any use of the information to criminally investigate or prosecute any alcohol or drug abuse patient.[facility] AndersonIn the event this information is protected by the Federal Confidentiality of Alcohol and Drug Abuse Patient Records regulations: The Federal rules restrict any use of the information to criminally investigate or prosecute any alcohol or drug abuse patient.[facility] AndersonIn the event this information is protected by the Federal Confidentiality of Alcohol and Drug Abuse Patient Records regulations: The Federal rules restrict any use of the information to criminally investigate or prosecute any alcohol or drug abuse patient.[facility] AndersonIn the event this information is protected by the Federal Confidentiality of Alcohol and Drug Abuse Patient Records regulations: The Federal rules restrict any use of the information to criminally investigate or prosecute any alcohol or drug abuse patient.[facility] AndersonIn the event this information is protected by the Federal Confidentiality of Alcohol and Drug Abuse Patient Records regulations: The Federal rules restrict any use of the information to criminally investigate or prosecute any alcohol or drug abuse patient.[facility] AndersonIn the event this information is protected by the Federal Confidentiality of Alcohol and Drug Abuse Patient Records regulations: The Federal rules restrict any use of the information to criminally investigate or prosecute any alcohol or drug abuse patient.[facility] AndersonIn the event this information is protected by the Federal Confidentiality of Alcohol and Drug Abuse Patient Records regulations: The Federal rules restrict any use of the information to criminally investigate or prosecute any alcohol or drug abuse patient.[facility] AndersonIn the event this information is protected by the Federal Confidentiality of Alcohol and Drug Abuse Patient Records regulations: The Federal rules restrict any use of the information to criminally investigate or prosecute any alcohol or drug abuse patient.[facility] AndersonIn the event this information is protected by the Federal Confidentiality of Alcohol and Drug Abuse Patient Records regulations: The Federal rules restrict any use of the information to criminally investigate or prosecute any alcohol or drug abuse patient.[facility] AndersonIn the event this information is protected by the Federal Confidentiality of Alcohol and Drug Abuse Patient Records regulations: The Federal rules restrict any use of the information to criminally investigate or prosecute any alcohol or drug abuse patient.[facility] AndersonIn the event this information is protected by the Federal Confidentiality of Alcohol and Drug Abuse Patient Records regulations: The Federal rules restrict any use of the information to criminally investigate or prosecute any alcohol or drug abuse patient.[facility] AndersonIn the event this information is protected by the Federal Confidentiality of Alcohol and Drug Abuse Patient Records regulations: The Federal rules restrict any use of the information to criminally investigate or prosecute any alcohol or drug abuse patient.[facility] AndersonIn the event this information is protected by the Federal Confidentiality of Alcohol and Drug Abuse Patient Records regulations: The Federal rules restrict any use of the information to criminally investigate or prosecute any alcohol or drug abuse patient.[facility] AndersonIn the event this information is protected by the Federal Confidentiality of Alcohol and Drug Abuse Patient Records regulations: The Federal rules restrict any use of the information to criminally investigate or prosecute any alcohol or drug abuse patient.[facility] AndersonIn the event this information is protected by the Federal Confidentiality of Alcohol and Drug Abuse Patient Records regulations: The Federal rules restrict any use of the information to criminally investigate or prosecute any alcohol or drug abuse patient.[facility] AndersonIn the event this information is protected by the Federal Confidentiality of Alcohol and Drug Abuse Patient Records regulations: The Federal rules restrict any use of the information to criminally investigate or prosecute any alcohol or drug abuse patient.[facility] AndersonIn the event this information is protected by the Federal Confidentiality of Alcohol and Drug Abuse Patient Records regulations: The Federal rules restrict any use of the information to criminally investigate or prosecute any alcohol or drug abuse patient.[facility] AndersonIn the event this information is protected by the Federal Confidentiality of Alcohol and Drug Abuse Patient Records regulations: The Federal rules restrict any use of the information to criminally investigate or prosecute any alcohol or drug abuse patient.[facility] AndersonIn the event this information is protected by the Federal Confidentiality of Alcohol and Drug Abuse Patient Records regulations: The Federal rules restrict any use of the information to criminally investigate or prosecute any alcohol or drug abuse patient.[facility] [place]In the event this information is protected by the Federal Confidentiality of Alcohol and Drug Abuse Patient Records regulations: The Federal rules restrict any use of the information to criminally investigate or prosecute any alcohol or drug abuse patient.[facility] AndersonIn the event this information is protected by the Federal Confidentiality of Alcohol and Drug Abuse Patient Records regulations: The Federal rules restrict any use of the information to criminally investigate or prosecute any alcohol or drug abuse patient.[facility] [place]In the event this information is protected by the Federal Confidentiality of Alcohol and Drug Abuse Patient Records regulations: The Federal rules restrict any use of the information to criminally investigate or prosecute any alcohol or drug abuse patient.[facility] [place]In the event this information is protected by the Federal Confidentiality of Alcohol and Drug Abuse Patient Records regulations: The Federal rules restrict any use of the information to criminally investigate or prosecute any alcohol or drug abuse patient.[facility] [place]In the event this information is protected by the Federal Confidentiality of Alcohol and Drug Abuse Patient Records regulations: The Federal rules restrict any use of the information to criminally investigate or prosecute any alcohol or drug abuse patient.[facility] [place]In the event this information is protected by the Federal Confidentiality of Alcohol and Drug Abuse Patient Records regulations: The Federal rules restrict any use of the information to criminally investigate or prosecute any alcohol or drug abuse patient.[facility] [place]In the event this information is protected by the Federal Confidentiality of Alcohol and Drug Abuse Patient Records regulations: The Federal rules restrict any use of the information to criminally investigate or prosecute any alcohol or drug abuse patient.[facility] AndersonIn the event this information is protected by the Federal Confidentiality of Alcohol and Drug Abuse Patient Records regulations: The Federal rules restrict any use of the information to criminally investigate or prosecute any alcohol or drug abuse patient.[facility] AndersonIn the event this information is protected by the Federal Confidentiality of Alcohol and Drug Abuse Patient Records regulations: The Federal rules restrict any use of the information to criminally investigate or prosecute any alcohol or drug abuse patient.[facility] [place]In the event this information is protected by the Federal Confidentiality of Alcohol and Drug Abuse Patient Records regulations: The Federal rules restrict any use of the information to criminally investigate or prosecute any alcohol or drug abuse patient.[facility] AndersonIn the event this information is protected by the Federal Confidentiality of Alcohol and Drug Abuse Patient Records regulations: The Federal rules restrict any use of the information to criminally investigate or prosecute any alcohol or drug abuse patient.[facility] [place]In the event this information is protected by the Federal Confidentiality of Alcohol and Drug Abuse Patient Records regulations: The Federal rules restrict any use of the information to criminally investigate or prosecute any alcohol or drug abuse patient.[facility] [place]In the event this information is protected by the Federal Confidentiality of Alcohol and Drug Abuse Patient Records regulations: The Federal rules restrict any use of the information to criminally investigate or prosecute any alcohol or drug abuse patient.[facility] [place]In the event this information is protected by the Federal Confidentiality of Alcohol and Drug Abuse Patient Records regulations: The Federal rules restrict any use of the information to criminally investigate or prosecute any alcohol or drug abuse patient.[facility] [place]In the event this information is protected by the Federal Confidentiality of Alcohol and Drug Abuse Patient Records regulations: The Federal rules restrict any use of the information to criminally investigate or prosecute any alcohol or drug abuse patient.[facility] [place]In the event this information is protected by the Federal Confidentiality of Alcohol and Drug Abuse Patient Records regulations: The Federal rules restrict any use of the information to criminally investigate or prosecute any alcohol or drug abuse patient.[facility] AndersonIn the event this information is protected by the Federal Confidentiality of Alcohol and Drug Abuse Patient Records regulations: The Federal rules restrict any use of the information to criminally investigate or prosecute any alcohol or drug abuse patient.[facility] AndersonIn the event this information is protected by the Federal Confidentiality of Alcohol and Drug Abuse Patient Records regulations: The Federal rules restrict any use of the information to criminally investigate or prosecute any alcohol or drug abuse patient.[facility] AndersonIn the event this information is protected by the Federal Confidentiality of Alcohol and Drug Abuse Patient Records regulations: The Federal rules restrict any use of the information to criminally investigate or prosecute any alcohol or drug abuse patient.[facility] AndersonIn the event this information is protected by the Federal Confidentiality of Alcohol and Drug Abuse Patient Records regulations: The Federal rules restrict any use of the information to criminally investigate or prosecute any alcohol or drug abuse patient.[facility] AndersonIn the event this information is protected by the Federal Confidentiality of Alcohol and Drug Abuse Patient Records regulations: The Federal rules restrict any use of the information to criminally investigate or prosecute any alcohol or drug abuse patient.[facility] AndersonIn the event this information is protected by the Federal Confidentiality of Alcohol and Drug Abuse Patient Records regulations: The Federal rules restrict any use of the information to criminally investigate or prosecute any alcohol or drug abuse patient.[facility] AndersonIn the event this information is protected by the Federal Confidentiality of Alcohol and Drug Abuse Patient Records regulations: The Federal rules restrict any use of the information to criminally investigate or prosecute any alcohol or drug abuse patient.[facility] AndersonIn the event this information is protected by the Federal Confidentiality of Alcohol and Drug Abuse Patient Records regulations: The Federal rules restrict any use of the information to criminally investigate or prosecute any alcohol or drug abuse patient.[facility] AndersonIn the event this information is protected by the Federal Confidentiality of Alcohol and Drug Abuse Patient Records regulations: The Federal rules restrict any use of the information to criminally investigate or prosecute any alcohol or drug abuse patient.[facility] AndersonIn the event this information is protected by the Federal Confidentiality of Alcohol and Drug Abuse Patient Records regulations: The Federal rules restrict any use of the information to criminally investigate or prosecute any alcohol or drug abuse patient.[facility] [place] Care Teams (unrecognized sec tion and content) Team Status: Active Member Role Status Dates Dr. Royce Carroll MD Primary Care Provider Active Team Status: Inactive Member Role Status Dates Dr. Royce Carroll MD Primary Care Provider Active Start: November 03, 2024 End: November 12, 2024 Dr. Yoav Alcaraz DO Emergency Provider Active Start : November 03, 2024 End: November 12, 2024 Dr. Kam Rogers DO Admit Provider Active Start: November 03, 2024 End: November 12, 2024 Dr. Kam Rogers DO Other Provider Active Start: November 03, 2024 End: November 12, 2024 Dr. Rafaela Pelayo MD Attending Provider Active Start: November 03, 2024 End: November 12, 2024 Dr. Anabell Hinkle MD Other Provider Active Star t: November 03, 2024 End: November 12, 2024 Dr. Олег Horne MD Other Provider Active St art: November 03, 2024 End: November 12, 2024 Team Status: Active Member Role Status Dates Dr. Royce Carroll MD Primary Care Provider Active Start: November 03, 2024 End: November 03, 2024 Dr. Sam Carpenter MD Attending Provider Active S tart: November 03, 2024 End: November 03, 2024 Dr. Kam Rogers DO Referring Provider Active Start: November 03, 2024 End: November 03, 2024 Team Status: Active Member Role Status Dates Dr. Royce Carroll MD Primary Care Provider Active Start: November 04, 2024 Dr. Sam Carpenter MD Attending Provider Active S tart: November 04, 2024 Team Status: Active Member Role Status Dates Dr. Royce Carroll MD Primary Care Provider Active Start: November 04, 2024 Dr. Yoav Alcaraz DO Emergency Provider Active Start : November 04, 2024 Dr. Kam Rogers DO Admit Provider Active Start: November 04, 2024 Dr. Kam Rogers DO Other Provider Active Start: November 04, 2024 Dr. Anabell Hinkle MD Attending Provider Active Start: November 04, 2024 Dr. Anabell Hinkle MD Other Provider Active Star t: November 04, 2024 Team Status: Active Member Role Status Dates Dr. Royce Carroll MD Primary Care Provider Active Start: November 05, 2024 Dr. Yoav Alcaraz DO Emergency Provider Active Start : November 05, 2024 Dr. Kam Rogers DO Admit Provider Active Start: November 05, 2024 Dr. Kam Rogers , DO Other Provider Active Start: November 05, 2024 Dr. Anabell Hinkle MD Attending Provider Active Start: November 05, 2024 Dr. Anabell Hinkle MD Other Provider Active Star t: November 05, 2024 Team Status: Active Member Role Status Dates Dr. Royce Carroll MD Primary Care Provider Active Start: November 06, 2024 Dr. Yoav Alcaraz DO Emergency Provider Active Start : November 06, 2024 Dr. Kam Rogers DO Admit Provider Active Start: November 06, 2024 Dr. Kam Rogers DO Other Provider Active Start: November 06, 2024 Dr. Anabell Hinkle MD Attending Provider Active Start: November 06, 2024 Dr. Anabell Hinkle MD Other Provider Active Star t: November 06, 2024 Team Status: Active Member Role Status Dates Dr. Royce Carroll MD Primary Care Provider Active Start: November 07, 2024 Dr. Yoav Alacraz DO Emergency Provider Active Start : November 07, 2024 Dr. Kam Rogers DO Admit Provider Active Start: November 07, 2024 Dr. Kam Rogers DO Other Provider Active Start: November 07, 2024 Dr. Anabell Hinkle MD Attending Provider Active Start: November 07, 2024 Dr. Anabell Hinkle MD Other Provider Active Star t: November 07, 2024 Team Status: Active Member Role Status Dates Dr. Royce Carroll MD Primary Care Provider Active Start: November 08, 2024 Dr. Yoav Alcaraz DO Emergency Provider Active Start : November 08, 2024 Dr. Kam Rogers , DO Admit Provider Active Start: November 08, 2024 Dr. Kam Rogers DO Other Provider Active Start: November 08, 2024 Dr. Rafaela Pelayo MD Attending Provider Active Start: November 08, 2024 Dr. Rafaela Pelayo MD Other Provider Active St art: November 08, 2024 Dr. Anabell Hinkle MD Other Provider Active Star t: November 08, 2024 Dr. Олег Horne MD Other Provider Active St art: November 08, 2024 Team Status: Active Member Role Status Dates Dr. Royce Carroll MD Primary Care Provider Active Start: November 08, 2024 Dr. Yoav Alcaraz DO Emergency Provider Active Start : November 08, 2024 Dr. Kam Rogers DO Admit Provider Active Start: November 08, 2024 Dr. Kam Rogers DO Other Provider Active Start: November 08, 2024 Dr. Rafaela Pelayo MD Other Provider Active St art: November 08, 2024 Dr. Anabell Hinkle MD Other Provider Active Star t: November 08, 2024 Dr. Олег Horne MD Attending Provider Active Start: November 08, 2024 Dr. Олег Horne MD Other Provider Active St art: November 08, 2024 Team Status: Active Member Role Status Dates Dr. Royce Carroll MD Primary Care Provider Active Start: November 09, 2024 Dr. Yoav Alcaraz DO Emergency Provider Active Start : November 09, 2024 Dr. Kam Rogers DO Admit Provider Active Start: November 09, 2024 Dr. Kam Rogers DO Other Provider Active Start: November 09, 2024 Dr. Rafaela Pelayo MD Other Provider Active St art: November 09, 2024 Dr. Anabell Hinkle MD Other Provider Active Star t: November 09, 2024 Dr. Олег Horne MD Attending Provider Active Start: November 09, 2024 Dr. Олег Horne MD Other Provider Active St art: November 09, 2024 Team Status: Active Member Role Status Dates Dr. Royce Carroll MD Primary Care Provider Active Start: November 09, 2024 Dr. Yoav Alcaraz DO Emergency Provider Active Start : November 09, 2024 Dr. Kam Rogers DO Admit Provider Active Start: November 09, 2024 Dr. Kam Rogers DO Other Provider Active Start: November 09, 2024 Dr. Rafaela Pelayo MD Attending Provider Active Start: November 09, 2024 Dr. Rafaela Pelayo MD Other Provider Active St art: November 09, 2024 Dr. Anabell Hinkle MD Other Provider Active Star t: November 09, 2024 Dr. Олег Horne MD Other Provider Active St art: November 09, 2024 Dr. Vadim Araiza MD Other Provider Active Start: November 09, 2024 Dr. Clinton Navas MD Other Provider Active Start: November 09, 2024 Dr. Víctor López MD Other Provider Active Star t: November 09, 2024 Dr. Kashif Rothman DO Other Provider Active Start : November 09, 2024 Dr. Kam Dalton MD Other Provider Active Sta rt: November 09, 2024 Dr. Jarod Puckett MD Other Provider Active St art: November 09, 2024 Dr. Maximino Vega MD Other Provider Active S tart: November 09, 2024 Dr. Archana Sampson MD Other Provider Active Start: November 09, 2024 Dr. Amadou Ferreira MD Other Provider Active Start : November 09, 2024 Dr. Prasanna Juárez MD Other Provider Active Start: November 09, 2024 Dr. Gary Nascimento MD Other Provider Active Start : November 09, 2024 Dr. Crystal Barragan MD Other Provider Active Star t: November 09, 2024 Dr. Gayatri Quintana MD Other Provider Active Sta rt: November 09, 2024 Dr. Demetra Sims MD Other Provider Active Sta rt: November 09, 2024 Dr. Herber Santiago MD Other Provider Active Star t: November 09, 2024 Dr. Héctor Montaño MD Other Provider Active St art: November 09, 2024 Dr. Jose Vogel MD Other Provider Active Star t: November 09, 2024 Dr. Andrae Owen DO Other Provider Active St art: November 09, 2024 Dr. Ponce Song MD Other Provider Active Start: November 09, 2024 Dr. Mario Mantilla MD Other Provider Active St art: November 09, 2024 Dr. Sajan Engle DO Other Provider Active Start: November 09, 2024 Dr. Wayne Chávez MD Other Provider Active Star t: November 09, 2024 Dr. Shaquille Kelly MD Other Provider Active Sta rt: November 09, 2024 Team Status: Active Member Role Status Dates Dr. oRyce Carroll MD Primary Care Provider Active Start: November 09, 2024 Dr. Yoav Alcaraz DO Emergency Provider Active Start : November 09, 2024 Dr. Kam Rogers DO Admit Provider Active Start: November 09, 2024 Dr. Kam Rogers DO Other Provider Active Start: November 09, 2024 Dr. Rafaela Pelayo MD Other Provider Active St art: November 09, 2024 Dr. Anabell Hinkle MD Other Provider Active Star t: November 09, 2024 Dr. Олег Horne MD Other Provider Active St art: November 09, 2024 Dr. Vadim Araiza MD Other Provider Active Start: November 09, 2024 Dr. Clinton Navas MD Other Provider Active Start: November 09, 2024 Dr. Víctor López MD Other Provider Active Star t: November 09, 2024 Dr. Kashif Rothman DO Attending Provider Active S tart: November 09, 2024 Dr. Kashif Rothman DO Other Provider Active Start : November 09, 2024 Dr. Kma Dalton MD Other Provider Active Sta rt: November 09, 2024 Dr. Jarod Puckett MD Other Provider Active St art: November 09, 2024 Dr. Maximino Vega MD Other Provider Active S tart: November 09, 2024 Dr. Archana Sampson MD Other Provider Active Start: November 09, 2024 Dr. Amadou Ferreira MD Other Provider Active Start : November 09, 2024 Dr. Prasanna Juárez MD Other Provider Active Start: November 09, 2024 Dr. Gary Nascimento MD Other Provider Active Start : November 09, 2024 Dr. Crystal Barragan MD Other Provider Active Star t: November 09, 2024 Dr. Gayatri Quintana MD Other Provider Active Sta rt: November 09, 2024 Dr. Demetra Sims MD Other Provider Active Sta rt: November 09, 2024 Dr. Herber Santiago MD Other Provider Active Star t: November 09, 2024 Dr. Héctor Montaño MD Other Provider Active St art: November 09, 2024 Dr. Jose Vogel MD Other Provider Active Star t: November 09, 2024 Dr. Andrae Dhesi , DO Other Provider Active St art: November 09, 2024 Dr. Ponce Song MD Other Provider Active Start: November 09, 2024 Dr. Mario Mantilla MD Other Provider Active St art: November 09, 2024 Dr. Sajan Engle DO Other Provider Active Start: November 09, 2024 Dr. Wayne Chávez MD Other Provider Active Star t: November 09, 2024 Dr. Shaquille Kelly MD Other Provider Active Sta rt: November 09, 2024 Team Status: Active Member Role Status Dates Dr. Royce Carroll MD Primary Care Provider Active Start: November 10, 2024 Dr. Yoav Alcaraz DO Emergency Provider Active Start : November 10, 2024 Dr. Kam Rogers DO Admit Provider Active Start: November 10, 2024 Dr. Kam Rogers DO Other Provider Active Start: November 10, 2024 Dr. Rafaela Pelayo MD Other Provider Active St art: November 10, 2024 Dr. Anabell Hinkle MD Other Provider Active Star t: November 10, 2024 Dr. Олег Horne MD Other Provider Active St art: November 10, 2024 Dr. Kashif Rothman DO Attending Provider Active S tart: November 10, 2024 Team Status: Active Member Role Status Dates Dr. Royce Carroll MD Primary Care Provider Active Start: November 10, 2024 Dr. Yoav Alcaraz DO Emergency Provider Active Start : November 10, 2024 Dr. Kam Rogers DO Admit Provider Active Start: November 10, 2024 Dr. Kam Rogers DO Other Provider Active Start: November 10, 2024 Dr. Rafaela Pelayo MD Attending Provider Active Start: November 10, 2024 Dr. Rafaela Pelayo MD Other Provider Active St art: November 10, 2024 Dr. Anabell Hinkle MD Other Provider Active Star t: November 10, 2024 Dr. Олег Horne MD Other Provider Active St art: November 10, 2024 Dr. Vadim Araiza MD Other Provider Active Start: November 10, 2024 Dr. Clinton Navas MD Other Provider Active Start: November 10, 2024 Dr. Víctor López MD Other Provider Active Star t: November 10, 2024 Dr. Kashif Rothman , Other Provider Active Start : November 10, 2024 Dr. Kam Dalton MD Other Provider Active Sta rt: November 10, 2024 Dr. Jarod Puckett MD Other Provider Active St art: November 10, 2024 Dr. Maximino Vega MD Other Provider Active S tart: November 10, 2024 Dr. Archana Sampson MD Other Provider Active Start: November 10, 2024 Dr. Amadou Ferreira MD Other Provider Active Start : November 10, 2024 Dr. Prasanna Juárez MD Other Provider Active Start: November 10, 2024 Dr. Gary Nascimento MD Other Provider Active Start : November 10, 2024 Dr. Crystal Barragan MD Other Provider Active Star t: November 10, 2024 Dr. Gayatri Quintana MD Other Provider Active Sta rt: November 10, 2024 Dr. Demetra Sims MD Other Provider Active Sta rt: November 10, 2024 Dr. Herber Santiago MD Other Provider Active Star t: November 10, 2024 Dr. Héctor Montaño MD Other Provider Active St art: November 10, 2024 Dr. Jose Vogel MD Other Provider Active Star t: November 10, 2024 Dr. Andrae Owen DO Other Provider Active St art: November 10, 2024 Dr. Ponce Song MD Other Provider Active Start: November 10, 2024 Dr. Mario Mantilla MD Other Provider Active St art: November 10, 2024 Dr. Sajan Engle DO Other Provider Active Start: November 10, 2024 Dr. Wayne Chávez MD Other Provider Active Star t: November 10, 2024 Dr. Shaquille Kelly MD Other Provider Active Sta rt: November 10, 2024 Team Status: Active Member Role Status Dates Dr. Royce Carroll MD Primary Care Provider Active Start: November 11, 2024 Dr. Yoav Alcaraz DO Emergency Provider Active Start : November 11, 2024 Dr. Kam Rogers DO Admit Provider Active Start: November 11, 2024 Dr. Kam Rogers DO Other Provider Active Start: November 11, 2024 Dr. Rafaela Pelayo MD Attending Provider Active Start: November 11, 2024 Dr. Rafaela Pelayo MD Other Provider Active St art: November 11, 2024 Dr. Anabell Hinkle MD Other Provider Active Star t: November 11, 2024 Dr. Олег Horne MD Other Provider Active St art: November 11, 2024 Team Status: Active Member Role Status Dates Dr. Royce Carroll MD Primary Care Provider Active Start: November 12, 2024 Dr. Yoav Alcaraz DO Emergency Provider Active Start : November 12, 2024 Dr. Kam Rogers DO Admit Provider Active Start: November 12, 2024 Dr. Kam Rogers DO Other Provider Active Start: November 12, 2024 Dr. Rafaela Pelayo MD Attending Provider Active Start: November 12, 2024 Dr. Rafaela Pelayo MD Other Provider Active St art: November 12, 2024 Dr. Anabell Hinkle MD Other Provider Active Star t: November 12, 2024 Dr. Олег Horne MD Other Provider Active St art: November 12, 2024 Gas Adjuster Relationship Specialty Start Date End Date Royce Carroll MD [address] [facility] [place] [address] PCP - General 06/14/05 Gas Adjuster Relationship Specialty Start Date End Date Royce Carroll MD [address] [facility] [place] [address] PCP - General 06/14/05 Gas Adjuster Relationship Specialty Start Date End Date Royce Carroll MD [address] [facility] [place] [address] PCP - General 06/14/05 Gas Adjuster Relationship Specialty Start Date End Date Royce Carroll MD [address] [facility] [place] [address] PCP - General 06/14/05 Gas Adjuster Relationship Specialty Start Date End Date Royce Carroll MD [address] [place] [address] PCP - General 06/14/05 Gas Adjuster Relationship Specialty Start Date End Date Royce Carroll MD [address] [facility] [place] [address] PCP - General 06/14/05 Gas Adjuster Relationship Specialty Start Date End Date Royce Carroll MD [address] [facility] [place] [address] PCP - General 06/14/05 Gas Adjuster Relationship Specialty Start Date End Date Royce Carroll MD [address] [facility] [place] [address] PCP - General 06/14/05 Gas Adjuster Relationship Specialty Start Date End Date Royce Carroll MD [facility] [place] [address] PCP - General 06/14/05 Gas Adjuster Relationship Specialty Start Date End Date Royce Carroll MD [facility] [place] [address] PCP - General 06/14/05 Gas Adjuster Relationship Specialty Start Date End Date Royce Carroll MD [facility] [place] [address] PCP - General 06/14/05 Gas Adjuster Relationship Specialty Start Date End Date Royce Carroll MD [address] [facility] [place] [address] PCP - General 06/14/05 Gas Adjuster Relationship Specialty Start Date End Date Royce Carroll MD [facility] [place] [address] PCP - General 06/14/05 Gas Adjuster Relationship Specialty Start Date End Date Royce Carroll MD [facility] [place] [address] PCP - General 06/14/05 Gas Adjuster Relationship Specialty Start Date End Date Royce Carroll MD [address] [facility] [place] [address] PCP - General 06/14/05 Gas Adjuster Relationship Specialty Start Date End Date Royce Carroll MD [address] [facility] [place] [address] PCP - General 06/14/05 Gas Adjuster Relationship Specialty Start Date End Date Royce Carroll MD [address] [facility] [place] [address] PCP - General 06/14/05 Gas Adjuster Relationship Specialty Start Date End Date Royce Carroll MD [facility] [place] [address] PCP - General 06/14/05 Gas Adjuster Relationship Specialty Start Date End Date Royce Carroll MD [address] [facility] [place] [address] PCP - General 06/14/05 Gas Adjuster Relationship Specialty Start Date End Date Royce Carroll MD [facility] [place] [address] PCP - General 06/14/05 Gas Adjuster Relationship Specialty Start Date End Date Royce Carroll MD [address] [facility] [place] [address] PCP - General 06/14/05 Gas Adjuster Relationship Specialty Start Date End Date Royce Carroll MD [address] [facility] [place] [address] PCP - General 06/14/05 Gas Adjuster Relationship Specialty Start Date End Date Royce Carroll MD [address] [facility] [place] [address] PCP - General 06/14/05 Gas Adjuster Relationship Specialty Start Date End Date Royce Carroll MD [address] [facility] [place] [address] PCP - General 06/14/05 Gas Adjuster Relationship Specialty Start Date End Date Royce Carroll MD [address] [facility] [place] [address] PCP - General 06/14/05 Gas Adjuster Relationship Specialty Start Date End Date Royce Carroll MD [address] [facility] [place] [address] PCP - General 06/14/05 Gas Adjuster Relationship Specialty Start Date End Date Royce Carroll MD [address] [place] [address] PCP - General 06/14/05 Gas Adjuster Relationship Specialty Start Date End Date Royce Carroll MD [address] [facility] [place] [address] PCP - General 06/14/05 Gas Adjuster Relationship Specialty Start Date End Date Royce Carroll MD [address] [facility] [place] [address] PCP - General 06/14/05 Gas Adjuster Relationship Specialty Start Date End Date Royce Carroll MD [address] [facility] [place] [address] PCP - General 06/14/05 Gas Adjuster Relationship Specialty Start Date End Date Royce Carroll MD [address] [facility] [place] [address] PCP - General 06/14/05 Gas Adjuster Relationship Specialty Start Date End Date Royce Carroll MD [address] [facility] [place] [address] PCP - General 06/14/05 Gas Adjuster Relationship Specialty Start Date End Date Royce Carroll MD [address] [facility] [place] [address] PCP - General 06/14/05 Team Status: Active Member Role Status Dates Dr. Ryoce Carroll MD Family Provider Active Dr. Royce Carroll MD Primary Care Provider Active Team Status: Inactive Member Role Status Dates Dr. Royce Carroll MD Primary Care Provider Active ARTURO MAR Attending Provider, Referring Provide r Active Gas Adjuster Relationship Specialty Start Date End Date Royce Carroll MD [address] [facility] [place] [address] PCP - General 06/14/05 Gas Adjuster Relationship Specialty Start Date End Date Royce Carroll MD [address] [facility] [place] [address] PCP - General 06/14/05 Gas Adjuster Relationship Specialty Start Date End Date Royce Carroll MD [address] [facility], [place] [address] PCP - General 06/14/05 Gas Adjuster Relationship Specialty Start Date End Date Royce Carroll MD [address] [facility], [place] [address] PCP - General 06/14/05 Gas Adjuster Relationship Specialty Start Date End Date Royce Carroll MD [address] [place] [address] PCP - General 06/14/05 Gas Adjuster Relationship Specialty Start Date End Date Royce Carroll MD [address] [place] [address] PCP - General 06/14/05 Gas Adjuster Relationship Specialty Start Date End Date Royce Carroll MD [address] [place] [address] PCP - General 06/14/05 Gas Adjuster Relationship Specialty Start Date End Date Royce Carroll MD [address] [place] [address] PCP - General 06/14/05 Gas Adjuster Relationship Specialty Start Date End Date Royce Carroll MD [address] [place] [address] PCP - General 06/14/05 Gas Adjuster Relationship Specialty Start Date End Date Royce Carroll MD [address] [place] [address] PCP - General 06/14/05 Gas Adjuster Relationship Specialty Start Date End Date Royce Carroll MD [address] [place] [address] PCP - General 06/14/05 Gas Adjuster Relationship Specialty Start Date End Date Royce Carroll MD [address] [place] [address] PCP - General 06/14/05 Gas Adjuster Relationship Specialty Start Date End Date Royce Carroll MD [address] [place] [address] PCP - General 06/14/05 Gas Adjuster Relationship Specialty Start Date End Date Royce Carroll MD [address] [place] [address] PCP - General 06/14/05 Gas Adjuster Relationship Specialty Start Date End Date Royce Carroll MD [address] [place] [address] PCP - General 06/14/05 Gabby Cannon, ORTHOTIC TECHNICIAN.WINERY WORKER [address] [place] [address] [facility] Internal Medicine 07/05/24 Gas Adjuster Relationship Specialty Start Date End Date Royce Carroll MD [address] [place] [address] PCP - General 06/14/05 Gabby Cannon, ORTHOTIC TECHNICIAN.WINERY WORKER [address] [place] [address] [facility] Internal Medicine 07/05/24 Gas Adjuster Relationship Specialty Start Date End Date Royce Carroll MD [address] [place] [address] PCP - General 06/14/05 Gabby Cannon, ORTHOTIC TECHNICIAN.WINERY WORKER [address] [place] [address] [facility] Internal Medicine 07/05/24 Gas Adjuster Relationship Specialty Start Date End Date Royce Carroll MD [address] [place] [address] PCP - General 06/14/05 Gabby Cannon, ORTHOTIC TECHNICIAN.WINERY WORKER [address] [place] [address] [facility] Internal Medicine 07/05/24 Gas Adjuster Relationship Specialty Start Date End Date Royce Carroll MD [address] [place] [address] PCP - General 06/14/05 Gabby Cannon, ORTHOTIC TECHNICIAN.WINERY WORKER [address] [place] [address] [facility] Internal Medicine 07/05/24 Gas Adjuster Relationship Specialty Start Date End Date Royce Carroll MD [address] [place] [address] PCP - General 06/14/05 Gabby Cannon, ORTHOTIC TECHNICIAN.WINERY WORKER [address] [place] [address] [facility] Internal Medicine 07/05/24 Gas Adjuster Relationship Specialty Start Date End Date Royce Carroll MD [address] [place] [address] PCP - General 06/14/05 Gabby Cannon, ORTHOTIC TECHNICIAN.WINERY WORKER [address] [place] [address] [facility] Internal Medicine 07/05/24 Gas Adjuster Relationship Specialty Start Date End Date Royce Carroll MD [address] [place] [address] PCP - General 06/14/05 Gabby Cannon, ORTHOTIC TECHNICIAN.WINERY WORKER [address] [place] [address] [facility] Internal Medicine 07/05/24 Gas Adjuster Relationship Specialty Start Date End Date Royce Carroll MD [address] [place] [address] PCP - General 06/14/05 Gabby Cannon, ORTHOTIC TECHNICIAN.WINERY WORKER [address] [place] [address] [facility] Internal Medicine 07/05/24 Gas Adjuster Relationship Specialty Start Date End Date Royce Carroll MD [address] [place] [address] PCP - General 06/14/05 Gabby Cannon, ORTHOTIC TECHNICIAN.WINERY WORKER [address] [place] [address] [facility] Internal Medicine 07/05/24 Gas Adjuster Relationship Specialty Start Date End Date Royce Carroll MD [address] [place] [address] PCP - General 06/14/05 Gabby Cannon, ORTHOTIC TECHNICIAN.WINERY WORKER [address] [place] [address] [facility] Internal Medicine 07/05/24 Gas Adjuster Relationship Specialty Start Date End Date Royce Carroll MD [address] [place], [place] [address] PCP - General 06/14/05 Gabby Cannon, ORTHOTIC TECHNICIAN.WINERY WORKER [address] [place], [place] [address] [facility] Internal Medicine 07/05/24 Gas Adjuster Relationship Specialty Start Date End Date Royce Carroll MD [address] [place], [place] [address] PCP - General 06/14/05 Gabby Cannon, ORTHOTIC TECHNICIAN.WINERY WORKER [address] [place] [address] [facility] Internal [facility] 07/05/24 Gas Adjuster Relationship Specialty Start Date End Date Royce Carroll MD [address] [place], [place] [address] PCP - General 06/14/05 Gabby Cannon, ORTHOTIC TECHNICIAN.WINERY WORKER [address] [place] [address] [facility] Internal [facility] 07/05/24 Team Status: Active Member Role Status Dates Dr. Royce Carroll MD Primary Care Provider Active Start: November 03, 2024 Dr. Yoav Alcaraz DO Emergency Provider Active Start : November 03, 2024 Dr. Kam Rogers DO Admit Provider Active Start: November 03, 2024 Dr. Kam Rogers DO Attending Provider Active Start: November 03, 2024 Gas Adjuster Relationship Specialty Start Date End Date Royce Carroll MD [address] [place] [address] PCP - General 06/14/05 Gabby Cannon, ORTHOTIC TECHNICIAN.WINERY WORKER [address] [place] [address] [facility] 07/05/24 Gas Adjuster Relationship Specialty Start Date End Date Royce Carroll MD [address] [facility] [place] [address] PCP - General 06/14/05 Gabby Cannon, ORTHOTIC TECHNICIAN.WINERY WORKER [address] [facility] [place] [address] [facility] 07/05/24 Ashish Saha, guest relations receptionist Dental Surgeon 11/17/24 Gas Adjuster Relationship Specialty Start Date End Date Royce Carroll MD [address] [facility] [place] [address] PCP - General 06/14/05 Gabby Cannon, ORTHOTIC TECHNICIAN.WINERY WORKER [address] [facility] [place] [address] [facility] 07/05/24 Ashish Saha, guest relations receptionist Dental Surgeon 11/17/24 Team Status: Active Member Role Status Dates Dr. Royce Carroll MD Primary Care Provider Active Start: November 09, 2024 Dr. Yoav Alcaraz DO Emergency Provider Active Start : November 09, 2024 Dr. Kam Rogers DO Admit Provider Active Start: November 09, 2024 Dr. Kam Rogers DO Other Provider Active Start: November 09, 2024 Dr. Rafaela Pelayo MD Referring Provider Active Start: November 09, 2024 Dr. Rafaela Pelayo MD Other Provider Active St art: November 09, 2024 Dr. Anabell Hinkle MD Other Provider Active Star t: November 09, 2024 Dr. Олег Horne MD Other Provider Active St art: November 09, 2024 Dr. Vadim Araiza MD Other Provider Active Start: November 09, 2024 Dr. Clinton Navas MD Other Provider Active Start: November 09, 2024 Dr. Víctor López MD Other Provider Active Star t: November 09, 2024 Dr. Kashif Rothman DO Attending Provider Active S tart: November 09, 2024 Dr. Kashif Rothman DO Other Provider Active Start : November 09, 2024 Dr. Kam Dalton MD Other Provider Active Sta rt: November 09, 2024 Dr. Jarod Puckett MD Other Provider Active St art: November 09, 2024 Dr. Maximino Vega MD Other Provider Active S tart: November 09, 2024 Dr. Archana Sampson MD Other Provider Active Start: November 09, 2024 Dr. Amadou Ferreira MD Other Provider Active Start : November 09, 2024 Dr. Prasanna Juárez MD Other Provider Active Start: November 09, 2024 Dr. Gary Nascimento MD Other Provider Active Start : November 09, 2024 Dr. Crystal Barragan MD Other Provider Active Star t: November 09, 2024 Dr. Gayatri Quintana MD Other Provider Active Sta rt: November 09, 2024 Dr. Demetra Sims MD Other Provider Active Sta rt: November 09, 2024 Dr. Herber Santiago MD Other Provider Active Star t: November 09, 2024 Dr. Héctor Montaño MD Other Provider Active St art: November 09, 2024 Dr. Jose Vogel MD Other Provider Active Star t: November 09, 2024 Dr. Andrae wOen DO Other Provider Active St art: November 09, 2024 Dr. Ponce Song MD Other Provider Active Start: November 09, 2024 Dr. Mario Mantilla MD Other Provider Active St art: November 09, 2024 Dr. Sajan Engle DO Other Provider Active Start: November 09, 2024 Dr. Wayne Chávez MD Other Provider Active Star t: November 09, 2024 Dr. Shaquille Kelly MD Other Provider Active Sta rt: November 09, 2024 Team Status: Active Member Role Status Dates Dr. Royce Carroll MD Primary Care Provider Active Start: November 10, 2024 Dr. Yoav Alcaraz DO Emergency Provider Active Start : November 10, 2024 Dr. Kam Rogers DO Admit Provider Active Start: November 10, 2024 Dr. Kam Rogers DO Other Provider Active Start: November 10, 2024 Dr. Rafaela Pelayo MD Referring Provider Active Start: November 10, 2024 Dr. Rafaela Pelayo MD Other Provider Active St art: November 10, 2024 Dr. Anabell Hinkle MD Other Provider Active Star t: November 10, 2024 Dr. Олег Horne MD Other Provider Active St art: November 10, 2024 Dr. Kashif Rothman DO Attending Provider Active S tart: November 10, 2024 Team Status: Active Member Role Status Dates Dr. Royce Carroll MD Primary Care Provider Active Start: January 04, 2025 Dr. Yoav Alcaraz DO Emergency Provider Active Start : January 04, 2025 Dr. Dalton Govea DO Admit Provider Active Start: January 04, 2025 Dr. Dalton Govea DO Attending Provider Active Start: January 04, 2025 Reason for Visit (unrecogniz ed section and content) Reason Comments Radiology CT Specialty Diagnoses / Procedures Referred By Contac t Referred To Contact Radiology / RADIO CT SCAN [facility] Diagnoses Screening for lung cancer LCS new patient Procedures COMPUTED TOMOGRAPHY THORAX LW DOSE LNG CA SCR C- CT LUNG SCREENING Gianni Velazquez, ORTHOTIC TECHNICIAN.WINERY WORKER [address] [place] [address] [place] [address] [place] [address] Referral ID Status Reason Start Date Expiration Date Visits Re quested Visits Authorized [id number] Closed 10/08/2022 07/27/2023 1 1 Specialty Diagnoses / Procedures Referred By Contac t Referred To Contact CT IMAGING Diagnoses Transient cerebral ischemia, unspecified type Procedures CTA NECK W IVCON CT ANGIOGRAPHY NECK W/CONTRAST/NONCONTRAST Jocelyne Mcknight, ORTHOTIC TECHNICIAN.WINERY WORKER [address] [place] [address] Ct Imaging Referral ID Status Reason Start Date Expiration Date V isits Requested Visits Authorized [id number] Closed Auto-Generate d Referral 10/04/2021 11/03/2022 1 1 Reason Comments Results Reason Comments Results Specialty Diagnoses / Procedures Referred By Contac t Referred To Contact MR IMAGING Diagnoses Transient cerebral ischemia, unspecified type Procedures MRI BRAIN WO IVCON MRI BRAIN BRAIN STEM W/O CONTRAST MATERIAL Jocelyne Mcknight, FLOYD.WINERY WORKER [address] [place] [address] Mr Imaging Referral ID Status Reason Start Date Expiration Date V isits Requested Visits Authorized [id number] Closed Auto-Generate d Referral 10/04/2021 11/03/2022 1 1 Reason Comments records requested Specialty Diagnoses / Procedures Referred By Contac t Referred To Contact CT IMAGING Diagnoses Lung nodules Procedures CT CHEST WO IVCON DIAGNOSTIC COMPUTED TOMOGRAPHY THORAX W/O Royce Gregory MD [address] [place] [address] Ct Imaging Referral ID Status Reason Start Date Expiration Date V isits Requested Visits Authorized [id number] Closed Auto-Generate d Referral 10/17/2021 11/16/2022 1 1 Reason Comments New Patient Specialty Diagnoses / Procedures Referred By Contac t Referred To Contact Vascular Medicine Diagnoses Stenosis of left carotid artery Procedures CONSULT TO VASCULAR MEDICINE OFFICE/OUTPATIENT NEW HIGH MDM 60-74 MINUTES Jocelyne Mcknight, FLOYD.WINERY WORKER [address] [place] [address] Referral ID Status Reason Start Date Expiration Date Visits Requested Visits Authorized [id number] Pending Review PCP Requested Referral 10/15/2021 10/15/2022 1 1 Reason Comments PT Eval Specialty Diagnoses / Procedures Referred By Contac t Referred To Contact [facility] Diagnoses Abnormality of gait Osteoarthritis of lumbar spine, unspecified spinal osteoarthritis complication status History of CVA (cerebrovascular accident) Procedures CONSULT TO PHYSICAL THERAPY PHYSICAL THERAPY EVALUATION HIGH COMPLEX 45 MINS THERAPEUTIC EXERCISES RE, EA 15 MIN. Jocelyne Mcknight APRN.WINERY WORKER [address] [place] [address] [facility] [address] [place], [place] [id number] Referral ID Status Reason Start Date Expiration Date Visits Requested Visits Authorized [id number] Authorized Auto-Generat ed Referral 07/28/2021 07/27/2022 20 20 Reason Onset Date Comments Refill Request 11/13/2021 Reason Comments Zio results Reason Comments Refill Request Reason Onset Date Comments Opened In Error 11/23/2021 Reason Onset Date Comments Population Health Navigation Outreach 01/01/2022 [place] Care Gaps Reason Comments F/U 6 months Reason Onset Date Comments Refill Request 01/26/2022 Reason Onset Date Comments Refill Request 01/30/2022 Reason Comments F/U 3 Month Reason Comments Orders Reason Onset Date Comments Refill Request 04/15/2022 Reason Onset Date Comments Refill Request 04/29/2022 Reason Comments Medication Request Reason Onset Date Comments Yearly Exam Immunizations 07/04/2022 Flu vaccination Reason Onset Date Comments Refill Request 08/14/2022 Reason Onset Date Comments Refill Request 10/11/2022 Reason Onset Date Comments Refill Request 10/21/2022 Reason Comments Lung Eval lung cancer screenin g Reason Comments Spirometry Specialty Diagnoses / Procedures Referred By Vaibhav aden Referred To [facility] Diagnoses Chronic bronchitis, unspecified chronic bronchitis type (HCC) Procedures SPIROMETRY - BASELINE AND POST DILATOR BRNCDILAT RSPSE SPMTRY PRE&POST-BRNCDILAT Royce Matta MD [address] [place] [address] [facility] [address] [place] [id number] Referral ID Status Reason Start Date Expiration Date V isits Requested Visits Authorized [id number] Closed Auto-Generate d Referral 07/04/2022 08/03/2023 1 1 Reason Comments Patient Update Reason Comments new dx of CHF Reason Comments Results Appointment Reason Comments F/U 6 months Reason Comments Diabetic Eye Exam Type 2 NIDDM Reason Comments Follow Up Tremors Reason Comments Cataract Evaluation Reason Comments New Patient chronic bronchitis Reason Comments Preparations For Surgery H&P status Reason Comments Medical Clearance Specialty Diagnoses / Procedures Referred By Vaibhav aden Referred To Contact Internal Medicine / INTERNAL MEDICINE Diagnoses pre op - cateract Procedures 4C EST PREOP Royce Carroll MD [address] [place] [address] Jono GabbyFLOYD.WINERY WORKER [address] [place] [address] Referral ID Status Reason Start Date Expiration Date Visits Requested Visits Authorized [id number] Pending Review OON/Self Pay Override 05/01/2023 10/28/2023 1 1 Reason Comments Post-op (Ophthalmology) Right Eye S/P PH ACOEMULSIFICATION CATARACT IMPLANT INTRAOCULAR LENS W/O ENDOSCOPIC CYCLOPHOTOCOAGULATION (Right) 05/06/2023 Reason Comments Follow Up Pt reported increase d tremors with activity, denied falls. 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 Reason Onset Date Comments Refill Request 10/13/2023 Reason Comments Established Patient Follow Up Diabetic Foot Care Reason Onset Date Comments Refill Request 11/26/2023 Reason Comments Established Patient Reason Comments F/U 3 Month Reason Onset Date Comments Refill Request 12/30/2023 Reason Comments Nose Problem Sore in left side of nostril x2 weeks Reason Comments Established Patient Diabetic Foot Care Reason Onset Date Comments Refill Request 04/29/2024 Out of duoneb me dication Reason Comments Results, Lab Reason Comments Established Patient 6 month follow up [place] COPD Specialty Diagnoses / Procedures Referred By Vaibhav aden Referred To [facility] Diagnoses Chronic obstructive pulmonary disease, unspecified COPD type (HCC) Procedures OXIMETRY WITH AMBULATION NONINVASIVE EAR/PULSE OXIMETRY Clark Yao MD [address] [place] [address] [facility] [place] [address] [place] [address] Referral ID Status Reason Start Date Expiration Date V isits Requested Visits Authorized [id number] Closed Auto-Generate d Referral 07/01/2024 07/27/2024 [address] Specialty Diagnoses / Procedures Referred By Contac t Referred To Contact CT IMAGING Diagnoses Cigarette smoker Procedures CT LUNG SCREEN WO IVCON COMPUTED TOMOGRAPHY THORAX LW DOSE LNG CA SCR Kirstin Hunt, ORTHOTIC TECHNICIAN.WINERY WORKER [id number] [id number] Referral ID Status Reason Start Date Expiration Date V isits Requested Visits Authorized [id number] Closed Auto-Generate d Referral 07/15/2024 07/27/2024 1 1 Reason Onset Date Comments Refill Request 07/22/2024 Reason Comments Patient Question Reason Comments Established Patient follow up nodule Reason Comments F/U 3 Month Medicare Wellness Exam Reason Onset Date Comments Results 10/01/2024 Specialty Diagnoses / Procedures Referred By Contac t Referred To Contact CT IMAGING Diagnoses Localized enlarged lymph nodes Procedures CT CHEST W IVCON DIAGNOSTIC COMPUTED TOMOGRAPHY THORAX W/CONTRAST Gianni Velazquez, ORTHOTIC TECHNICIAN.WINERY WORKER [address] [place] [address] Phone: tel: fax: [id number] Referral ID Status Reason Start Date Expiration Date V isits Requested Visits Authorized [id number] Closed Auto-Generate d Referral 09/13/2024 10/13/2025 1 1 Reason Comments Diabetes Type 2 Dm without re tinopathy both eyes Reason Onset Date Comments Allied Health Visit 10/25/2024 Medication A dherence Outreach Reason Comments pulse ox readings over 100 Reason Comments Chest Pain Reason Comments Breathing Problem Reason Onset Date Comments Patient Update 11/13/2024 oxygen and pulse ox readings. Medication Problem Consult to [facility] Goals (unrecognized section and content) Goals may be documented in a n alternate sectionGoals may be documented in an alternate section Active Administered Medications - up to 3 most recent administrations Administered Medications (un recognized section and content) Medication Order MAR Action Action Date Dose Rate Site PHENYLephrine 2.5 % 1 Drop (AK-DILATE, SIDNEY-SYNEPHRINE) 1 Drop, BOTH EYES, DIRECTED, Starting on Nona 10/09/23 at 0930, Until Nona 10/09/23 at 2129, Administer for dilation PROTECT FROM LIGHT, [facility] MED ORDERS Given 10/09/2023 9:30 AM EDT 1 Drop proparacaine 0.5 % 1 Drop (ALCAINE) 1 Drop, BOTH EYES, DIRECTED, Starting on Nona 10/09/23 at 0930, Until Nona 10/09/23 at 2129, Administer for pneumo tonometry, tonopen tonometry, or pachymetry. In the event of a proparacaine shortage, administer tetracaine 0.5% ophthalmic drops 1 drop in both eyes as directed for pneumo tonometry, tonopen tonometry, or pachymetry, [facility] MED ORDERS Given 10/09/2023 9:30 AM EDT 1 Drop tropicamide 1 % 1 Drop (MYDRIACYL) 1 Drop, BOTH EYES, DIRECTED, Starting on Nona 10/09/23 at 0930, Until Nona 10/09/23 at 9, Administer for dilation, [facility] MED ORDERS Given 10/09/2023 9:30 AM EDT 1 Drop FOR RECORDS PERTAINING TO PATIENTS WHO ARE OR HAVE BEEN ENROLLED IN A CHEMICAL DEPENDENCY/SUBSTANCEABUSE PROGRAM, SOME INFORMATION MAY BE OMITTED. This clinical summary was aggregated from multiple sources. Caution should be exercised in using it in the provision of clinical care. This summary normalizes information from multiple sources, and as a consequence, information in this document may materially change the coding, format and clinical context of patient data. In addition, data may be omitted in some cases. CLINICAL DECISIONS SHOULD BE BASED ON THE PRIMARY CLINICAL RECORDS. [employer] [facility]. provides no warranty or guarantee of the accuracy or completeness of information in this document.
--- NOTE | 2025-01-04 23:55 | CPS ---
Bipap started due to increased WOB
[2025-01-05] VITALS (46 sets, daily range): BP systolic 123–153; BP diastolic 49–84; PULSE 70–109; RESP 12–40; TEMP 36.5–36.6; O2SAT 85–100
--- NOTE | 2025-01-05 00:14 | PN.HOSP_ITS ---
Hospitalist Note Called with worsening respiratory distress. At baseline, on 4-5 L and admitted with SOB thought to be related to COPD exacerbation. pro-BNP was elevated so will give Lasix 60 mg x 1 dose. ABG is pending. CXR reviewed. Add urine antigens for legionella and S.Pneumo. Resp Viral Panel is neg. Transition to BIPAP. Pt also with h/o dysphagia on [facility] 10/2024. Will also consult FOOD SAFETY FIELD SPECIALIST.
--- NOTE | 2025-01-05 00:34 | CPS ---
Not enough blood to re-run abg sample due to critical high CO2, doctor Glo Browne notified by this [employer]ICE OFFICER
[2025-01-05 00:38] LABS: Allen Test Positive; Base Excess 15 mmol/L (-2 to +2); Bicarbonate 40.7 mmol/L (22-26); Blood Gas Specimen Type ART; Comment 16 10; Mode Not entered; O2 Delivery Device BiPAP; PO2 91 mmHG (75-100); RR 14; SITE L Radial; SO2 96 % (95-99); Total Carbon Dioxide 43 mmol/L; pCO2 75.5 mmHg (35-45); pH 7.34 (7.35-7.45)
[2025-01-05 01:09] LABS: Bedside Glucose 315 mg/dL (74-106)
[2025-01-05] MEDS: Furosemide 100 MG/10 ML Vial 60 MG IV (01:27)
[2025-01-05] MEDS: Ipratropium/Albuterol Sulfate 3 ML AMPUL.NEB INHALATION ×6 (03:25→23:25)
[2025-01-05 04:56] LABS: Allen Test Positive; Base Excess 19 mmol/L (-2 to +2); Bicarbonate 42.5 mmol/L (22-26); Blood Gas Specimen Type ART; Comment 16 10; Mode Not entered; O2 Delivery Device BiPAP; PO2 143 mmHG (75-100); RR 12; SITE L Radial; SO2 99 % (95-99); Total Carbon Dioxide 44 mmol/L; pCO2 56.7 mmHg (35-45); pH 7.48 (7.35-7.45)
[2025-01-05 05:19] LABS: Hematocrit 26.4 % (40-54); Hemoglobin 8.6 g/dL (13.0-16.5); Mean Corp Hgb Conc 32.6 g/dL (32-36); Mean Corpuscular Hgb 33.6 pg (27.0-32.0); Mean Corpuscular Volume 103.1 fL (80-94); Mean Platelet Vol. 10.3 fl (6.2-12.0); Platelet Count 201 K/mm3 (150-450); RBC Distribution Width CV 14.2 % (11.6-14.6); RBC Distribution Width SD 53.1 fl (35.1-43.9); Red Blood Count 2.56 M/mm3 (4.6-6.2); White Blood Count 21.1 K/mm3 (4.4-11.0)
[2025-01-05 05:52] LABS: Anion Gap 10 (5-15); BUN 28 mg/dL (4-19); BUN/Creat Ratio 19.4 RATIO (10-20); Calcium,Total 8.9 mg/dL (7.6-11.0); Carbon Dioxide 34.9 mmol/L (21.0-32.0); Chloride 96 mmol/L (98-108); Creatinine, Serum 1.43 mg/dL (0.70-1.20); EST Glomerular Filtration Rate 52 (>60); Estimated Creatinine Clearance 50.37 ml/min (50-250); Glucose 157 mg/dL (70-99); Potassium 4.6 mmol/L (3.3-5.1); Sodium Level 141 mmol/L (133-145)
[2025-01-05] MEDS: 0.9% Saline Lock 10 ML Syringe IV ×5 (06:17→22:15)
[2025-01-05] MEDS: Insulin Lispro 100 UNIT/ML INSULN.PEN SC ×4 (06:20→22:12)
[2025-01-05 06:52] LABS: Bedside Glucose 160 mg/dL (74-106)
[2025-01-05] MEDS: Budesonide Respules 0.5 MG/2 ML AMPUL.NEB. INHALATION ×2 (07:03→19:10)
[2025-01-05] MEDS: Fluticasone 0.05% 1 SPRAY NASAL.SRY NASAL (09:34)
[2025-01-05] MEDS: Clopidogrel Bisulfate 75 MG Tablet PO (09:35)
[2025-01-05] MEDS: Sertraline 100 MG Tablet PO (09:35)
[2025-01-05] MEDS: Enoxaparin 40 MG/0.4 ML Syringe SC (09:35)
[2025-01-05] MEDS: Metoprolol Tartrate 50 MG Tablet PO ×2 (09:35→22:13)
[2025-01-05] MEDS: Azithromycin 500 MG in 0.9% Normal Saline (250mL Bag) 250 ML 255 MG IV (09:47)
[2025-01-05 11:59] LABS: Bedside Glucose 312 mg/dL (74-106)
--- NOTE | 2025-01-05 13:35 | CASEMGMT ---
JOE BOLDEN Assessment Face to Face with patient for initial transition planning/care coordination assessment. JOE BOLDEN introduced self and role at [facility], pt voices understanding. Pt is A&Ox4 and is resting comfortably in the chair and is calm. Care providers, pharmacy, and demographics verified. Admitting dx: COPD Exacerbation LACE Strata: 3 PCP: Royce Carroll Specialists: Taqueria Burdick (Pulmonary), [facility] - Cannot recall the name Preferred [facility] Prescription Benefit: Yes LNOK: Mis (W), Mariela (Daughter) Living Arrangements: Pt lives with his in a mobile home with 5 steps to enter with handrails ADLs/IADLs: Pt states that he is indep at baseline. Current 6-Click score is 20. There is no PT/OT ordered and pt declines the need currently Transportation: Pt does not drive. Pt's drives and denies concerns DME: Home oxygen through [employer]. Verified the pt's current Rx states 3L @ Rest and 6L with exertion. Pt states that he has a concentrator, portable tanks ( can bring in at [place]), pulse ox, nebulizer, and inhaler. Pt also states that he has a functioning BGM with sufficient supplies, FWW, and WC. HHC/SNF: Recent history with [facility] HH. Denies SNF Pt?s goal: Home Plan: Home with OP PT. At this time, the pt denies the need for any HH but reports that he would be interested in attending OP PT and states that he will make his own appt. CM to provide Rx. Pt educated on the local facilities. CM to follow for updated O2 Rx needs. Pt denies further concerns at this time. Report given to W[employer] LOOM SETTER CM. Star Kennedy RN, CM
[2025-01-05 17:18] LABS: Bedside Glucose 177 mg/dL (74-106)
--- NOTE | 2025-01-05 17:26 | PN_ITS ---
Subjective Subjective Patient seen and examined. Still feeling short of breath. Was up to 9 L of oxygen at time of review. He usually wears 4 to 5 L of oxygen at home. He is coughing but denies any chest pain or palpitations, dizziness, nausea vomiting or any other symptoms. Review systems otherwise negative. Objective Data Objective Data Vital Signs: Vital Signs Temp Pulse Resp BP Pulse Ox O2 Del Method O2 Flow Rate 97.7 F L 93 28 H 134/84 H 93 Nasal Cannula 5 01/05/25 03:00 01/05/25 15:28 01/05/25 15:28 01/05/25 09:35 01/05/25 16:48 01/05/25 16:48 01/05/25 16:48 FiO2 35 01/05/25 07:04 Oxygen Flow Rate (L/min) 5 Oxygen Delivery Method Nasal Cannula Weight: 170 lb 10.205 oz Body Mass Index (BMI) 22.5 Intake & Output: Intake and Output for Last 24 Hours 01/03/25 01/04/25 01/05/25 23:59 23:59 23:59 Intake Total 505 / 505 255 / 255 Output Total 300 / 300 0 / 0 Balance 205 / 205 255 / 255 Lab / Micro Data 01/05/25 05:03 01/05/25 05:03 Labs: Laboratory Results - last 24 hr 01/04/25 11:50: NT pro BNP II 7221 H 01/04/25 21:51: POC Glucose 315 H 01/05/25 05:03: WBC 21.1 H, RBC 2.56 L, Hgb 8.6 L, Hct 26.4 L, MCV 103.1 H, MCH 33.6 H, MCHC 32.6, RDW Std Deviation 53.1 H, RDW Coeff of Christine 14.2, Plt Count 201, MPV 10.3, Sodium 141, Potassium 4.6, Chloride 96 L, Carbon Dioxide 34.9 H, Anion Gap 10, BUN 28 H, Creatinine 1.43 H, Estim Creat Clear Calc 50.37, Est GFR (MDRD) Non-Af 52 L, BUN/Creatinine Ratio 19.4, Glucose 157 H, Calcium 8.9 01/05/25 06:14: POC Glucose 160 H 01/05/25 11:36: POC Glucose 312 H 01/05/25 16:43: POC Glucose 177 H Micro: Microbiology 01/05/25 06:50 Urine Catheter - Catheter Legionella Antigen - Final 01/05/25 06:50 Urine Catheter - Catheter Streptococcus pneumoniae Antigen (M - Final 01/04/25 19:35 Mucosa - Nasopharyngeal Respiratory Panel (PCR) - Preliminary ABG Data ABG results: ABG 01/05/25 01/05/25 00:32 04:51 Specimen Type ART ART Sample Site L Radial L Radial pH 7.34 L 7.48 H Bicarbonate Actual 40.7 H 42.5 H Total CO2 43 44 Base Excess 15 H 19 H O2 Saturation 96 99 O2 % 35.0 35.0 ABG pCO2 75.5 H* 56.7 H ABG pO2 91 143 H Raymon Test Positive Positive Respiration Rate 14 12 O2 Delivery Device BiPAP BiPAP Vent Mode Not entered Not entered Crit Call To/Read Back Yes Blood Gas Notified Whom olga simpson Blood Gas Notified Time 00:33:54 Clinical Comments 16 10 16 10 Physical Exam Const alert, oriented x3 and no apparent distress Constitutional Narrative: Frail General Appearance: cooperative HEENT normocephalic, head/scalp atraumatic, moist oral mucous membranes and oropharynx normal Eyes PERRL and EOMs intact bilaterally Neck supple and no JVD Resp Resp Narrative: Moderately diminished breath sounds bibasilarly. Mild wheezing. No crackles. On 9 L of oxygen by nasal cannula. Cardio regular rate, regular rhythm, S1 normal heart sound, S2 normal heart sound and no murmurs GI normal to inspection, nondistended, normoactive bowel sounds, soft to palpation and non-tender Extremity normal capillary refill and no calf tenderness General Extremity: no tenderness to palpation of joints or extremities Skin General Skin Exam: no breakdown Neuro CN's II-XII intact bilaterally, no focal motor deficits and no sensory deficits noted Motor Exam: general weakness Psych thought process normal and cooperative Appearance: appropriate Assessment & Plan Assessment/Plan (1) COPD exacerbation: (2) Hypoxia: PLAN: Plan #Acute on chronic hypoxic respiratory failure due to COPD exacerbation. * Patient usually wears 4 to 5 L of oxygen at home and is now on 9 L. He was up to as high as 12 L earlier today. * Chest x-ray showed increased central vascular congestion with chronic ILD changes. * On IV Solu-Medrol and breathing treatments bronchodilators. Titrate oxygen to maintain saturation above 90%. * Consult pulmonology. Respiratory panel negative. Urine for strep and legionella negative. #Acute on chronic heart failure with reduced action fraction: * Has known EF of 41% with stage I diastolic dysfunction. * Echo also showed mild to moderate global hypokinesis of the left ventricle. On Lasix. * Pro BNP was 7221. #CKD stage IIIa: Creatinine is 1.43. Will monitor. #GERD: On PPI #Anxiety and depression: On sertraline #DVT prophylaxis: Lovenox Charges/Coding Visit Charges Inpatient E&M: 65720 Subs Hosp L2
[2025-01-05] MEDS: Furosemide 40 MG/4 ML Vial IV (18:40)
[2025-01-05] MEDS: Atorvastatin Calcium 40 MG Tablet PO (22:13)
[2025-01-05 22:47] LABS: Bedside Glucose 216 mg/dL (74-106)
[2025-01-06] VITALS (39 sets, daily range): BP systolic 127–170; BP diastolic 58–85; PULSE 84–114; RESP 14–33; TEMP 36.4–36.8; O2SAT 68–100
[2025-01-06] MEDS: guaiFENesin 10 ML UDC (200MG/10ML) PO (01:15)
[2025-01-06] MEDS: Ipratropium/Albuterol Sulfate 3 ML AMPUL.NEB INHALATION ×6 (03:00→22:40)
[2025-01-06] MEDS: 0.9% Saline Lock 10 ML Syringe IV ×3 (06:12→13:53)
[2025-01-06] MEDS: Insulin Lispro 100 UNIT/ML INSULN.PEN SC ×4 (06:15→22:31)
[2025-01-06 06:19] LABS: Absolute Lymphocyte Count 1.16 X10^3/uL (0.83-4.51); Absolute Neutrophil Count 12.6 X10^3/uL (2.0-7.7); Basophil# 0.02 X10^3/uL; Basophil% 0.1 % (0-1); Eosinophil# 0.01 X10^3/uL; Eosinophils% 0.1 % (0-5); Lymphocyte # 1.16 X10^3/ul (0.83-4.51); Lymphocyte % 7.9 % (19-41); Mean Corpuscular Hgb 33.2 pg (27.0-32.0); Mean Corpuscular Volume 103.7 fL (80-94); Mean Platelet Vol. 10.5 fl (6.2-12.0); Monocyte# 0.78 X10^3/uL; Monocyte% 5.3 % (0-10); NRBC Flagged by Analyzer 0 % (0-5); Neutrophil # 12.59 X10^3/uL (2.7-7.7); Platelet Count 181 K/mm3 (150-450); RBC Distribution Width SD 53.2 fl (35.1-43.9); Red Blood Count 2.41 M/mm3 (4.6-6.2); White Blood Count 14.7 K/mm3 (4.4-11.0)
[2025-01-06 06:48] LABS: Anion Gap 10 (5-15); BUN 37 mg/dL (4-19); BUN/Creat Ratio 22.5 RATIO (10-20); Calcium,Total 8.8 mg/dL (7.6-11.0); Chloride 94 mmol/L (98-108); Creatinine, Serum 1.62 mg/dL (0.70-1.20); EST Glomerular Filtration Rate 45 (>60); Estimated Creatinine Clearance 44.46 ml/min (50-250); Glucose 216 mg/dL (70-99); Potassium 4.5 mmol/L (3.3-5.1); Sodium Level 139 mmol/L (133-145)
[2025-01-06 06:54] LABS: Bedside Glucose 215 mg/dL (74-106)
[2025-01-06] MEDS: Budesonide Respules 0.5 MG/2 ML AMPUL.NEB. INHALATION ×2 (07:11→18:54)
[2025-01-06] MEDS: Clopidogrel Bisulfate 75 MG Tablet PO (10:48)
[2025-01-06] MEDS: Furosemide 40 MG/4 ML Vial IV ×2 (10:48→18:31)
[2025-01-06] MEDS: Sertraline 100 MG Tablet PO (10:48)
[2025-01-06] MEDS: Metoprolol Tartrate 50 MG Tablet PO ×2 (10:48→22:27)
[2025-01-06] MEDS: Enoxaparin 40 MG/0.4 ML Syringe SC (10:48)
[2025-01-06] MEDS: Azithromycin 500 MG in 0.9% Normal Saline (250mL Bag) 250 ML 255 MG IV (11:01)
[2025-01-06 11:47] LABS: Bedside Glucose 279 mg/dL (74-106)
--- NOTE | 2025-01-06 11:49 | PN_ITS ---
Subjective Subjective Patient seen and examined. He said he felt better today. He is down to 6L of oxygen. He is still coughing, and it is productive. He denies any fever, chills, chest pain, palpitations, dizziness, nausea, vomiting or any other symptoms. Review of systems is otherwise negative. Objective Data Objective Data Vital Signs: Vital Signs Temp Pulse Resp BP Pulse Ox O2 Del Method O2 Flow Rate 97.9 F 110 H 20 H 170/77 H 94 Nasal Cannula 4 01/06/25 10:43 01/06/25 11:03 01/06/25 11:03 01/06/25 10:48 01/06/25 11:03 01/06/25 11:03 01/06/25 11:03 FiO2 35 01/05/25 19:10 Oxygen Flow Rate (L/min) 4 Oxygen Delivery Method Nasal Cannula Weight: 170 lb 10.205 oz Body Mass Index (BMI) 22.5 Intake & Output: Intake and Output for Last 24 Hours 01/04/25 01/05/25 01/06/25 23:59 23:59 23:59 Intake Total 505 / 505 1455 / 1455 Output Total 300 / 300 1850 / 1850 400 / 400 Balance 205 / 205 -395 / -395 -400 / -400 Lab / Micro Data 01/06/25 05:36 01/06/25 05:36 Labs: Laboratory Results - last 24 hr 01/05/25 11:36: POC Glucose 312 H 01/05/25 16:43: POC Glucose 177 H 01/05/25 22:03: POC Glucose 216 H 01/06/25 05:36: WBC 14.7 H, RBC 2.41 L, Hgb 8.0 L, Hct 25.0 L, MCV 103.7 H, MCH 33.2 H, MCHC 32.0, RDW Std Deviation 53.2 H, RDW Coeff of Christine 14.0, Plt Count 181, MPV 10.5, Immature Gran % (Auto) 0.600, Neut % (Auto) 86.0 H, Lymph % (Auto) 7.9 L, [place] % (Auto) 5.3, Eos % (Auto) 0.1, Baso % (Auto) 0.1, Absolute Neuts (auto) 12.6 H, Absolute Lymphs (auto) 1.16, Nucleated RBC % 0, Sodium 139, Potassium 4.5, Chloride 94 L, Carbon Dioxide 35.0 H, Anion Gap 10, BUN 37 H, C reatinine 1.62 H, Estim Creat Clear Calc 44.46 L, Est GFR (MDRD) Non-Af 45 L, B UN/Creatinine Ratio 22.5 H, Glucose 216 H, Calcium 8.8 01/06/25 06:09: POC Glucose 215 H 01/06/25 11:26: POC Glucose 279 H Micro: Microbiology 01/05/25 06:50 Urine Catheter - Catheter Legionella Antigen - Final 01/05/25 06:50 Urine Catheter - Catheter Streptococcus pneumoniae Antigen (M - Final 01/04/25 19:35 Mucosa - Nasopharyngeal Respiratory Panel (PCR) - Preliminary Physical Exam Const alert, oriented x3 and no apparent distress Constitutional Narrative: Frail General Appearance: cooperative HEENT normocephalic, head/scalp atraumatic and hearing grossly normal bilaterally Eyes EOMs intact bilaterally and conjunctivae normal Neck full ROM, supple and no JVD Lymph Lymphatic: no lymphedema noted Chest inspection of chest normal Resp Resp Narrative: Moderately diminished breath sounds bibasilarly. No wheezing or crackles. On 6 L of oxygen by nasal cannula. Cardio regular rate, regular rhythm, S1 normal heart sound, S2 normal heart sound, no murmurs and peripheral pulses 2+ throughout GI normal to inspection, nondistended, normoactive bowel sounds, soft to palpation, non-tender and non-distended Back/Spine normal ROM Extremity normal to inspection, normal capillary refill, no calf tenderness and no pedal edema General Extremity: no tenderness to palpation of joints or extremities Skin no rashes or lesions noted General Skin Exam: no breakdown Neuro no focal motor deficits and no sensory deficits noted Motor Exam: general weakness Psych mental status grossly normal, thought process normal and cooperative Psych Narrative: Flat affect. Mood & Affect: flat affect Assessment & Plan Assessment/Plan (1) COPD exacerbation: (2) Hypoxia: PLAN: Plan #Acute on chronic hypoxic respiratory failure due to COPD exacerbation. * now down to 6L of oxygen. Was up to 9L of oxygen yesterday. * on IV solumedrol and breathing treatment with bronchodilators. * wears 3L at rest and 6L with ambulation at home. * Chest x-ray showed increased central vascular congestion with chronic ILD changes. * Respiratory panel negative. Urine for strep and legionella negative * Pulmonology consulted, await recs. * on azithromycin. #Acute on chronic heart failure with reduced action fraction: * Has known EF of 41% with stage I diastolic dysfunction. * Echo also showed mild to moderate global hypokinesis of the left ventricle. On Lasix IV 40mg bid. * Pro BNP was 7221. #CKD stage IIIa: Creatinine is 1.62 today. Will monitor. #GERD: On PPI #Anxiety and depression: On sertraline #DVT prophylaxis: Lovenox Charges/Coding Visit Charges Inpatient E&M: 50193 Subs Hosp L2
--- NOTE | 2025-01-06 12:44 | CON.PCM.CC_ITS ---
Assessment & Plan Assessment/Plan (1) COPD exacerbation: (2) Aspiration pneumonia: QUALIFIERS: Aspiration pneumonia type: unspecified Laterality: b ilateral Lung location: unspecified part of lung Qualified Code(s): J69.0 - Pneumonitis due to inhalation of food and vomit PLAN: Plan RECOMMENDATIONS: 1. Supplemental oxygen to maintain saturations at or above 90%. 2. Unclear need for antimicrobials from my standpoint. 3. Continue scheduled bronchodilators and steroids. 4. Recommend steroid taper at discharge beginning with 40 mg and tapering by 10 mg daily. 5. The patient should follow-up with his primary fire controlman, Dr. Court Burdick at [facility] after discharge. 6. Given the end-stage nature of his lung disease, I would consider referral to hospice care services. 7. Will sign off. Please call with any additional questions. IMPRESSIONS: 1. Acute on chronic hypoxemic respiratory failure Presumed secondary to COPD exacerbation. The patient has known end-stage lung disease along with a baseline oxygen requirement of 4 L/min at rest and 6 L/min with exertion. There was no definitive evidence of pneumonia on CT imaging. It is far more likely that the patient had an underlying component of pulmonary edema on top of chronic interstitial changes. He has responded to bronchodilators, steroids and Lasix. At this time, he is maintaining appropriate oxygen saturations on his baseline requirement. He can be transition to prednisone 40 mg daily, with plans for a taper at discharge. The patient does have end-stage lung disease. The patient should follow-up with his primary fire controlman after discharge. I have no additional new recommendations from a pulmonary perspective. 2. Cardiomyopathy/history of coronary artery disease status post CABG/hypertension Continue current medical management with diuretics as tolerated. 3. Chronic tobacco dependency/GERD/hyperlipidemia/diabetes mellitus Complicates care, management, recovery and prognosis. Continue supportive measures as noted above. This note was generated with Seeder dictation software. It may contain incorrect words, spelling, and punctuation that were not noted in checking the note before signing. HPI Consult Data Date of Consult: 01/06/25 HPI Narrative Reason for Consultation: Acute on chronic respiratory failure HPI Narrative: The patient is a 74-year-old male, with a history as outlined below, who presented to the emergency department on January 04 with worsening shortness of breath. The patient was last admitted to the hospital for 9 days in October 2024 with respiratory failure secondary to a COPD exacerbation in the setting of aspiration pneumonia. The patient was discharged home on 6 L/min with exertion and 4 L/min at rest. The patient has a known history of coronary artery disease status post CABG, chronic heart failure with preserved ejection fraction, history of CVA, chronic kidney disease and chronic tobacco dependency. The patient reported that he is currently followed by Dr. Court Burdick of pulmonary medicine at [facility]. According to the patient, he has Gold stage IV COPD with an FEV1 of approximately 25%. On presentation to the emergency department, the patient was documented to be afebrile and hemodynamically stable. He was maintaining appropriate oxygen saturations on 5 L/min via nasal cannula. Laboratory evaluation was notable for a white blood cell count of 21,000 with a hemoglobin of 8.6 g/dL. ABG was notable for a pH of 7.34 with a pCO2 of 75 and pO2 of 91. Chemistry profile was notable for a creatinine of 1.43. BNP was elevated at 7221. CTA chest showed no evidence for pulmonary embolism with stable, chronic changes including calcified left pleural plaques and emphysematous changes. The patient was subsequently placed on scheduled bronchodilators, IV steroids, azithromycin and Lasix. He was admitted to the hospital for further management. At the time of my evaluation of the patient, he was maintaining appropriate oxygen saturations on his baseline requirement of 4 L/min at rest. He did report that his breathing quality has nearly returned back to its baseline. [facility] Medical History LV dysfunction Chest pain Elevated troponin Essential hypertension Macrocytic anemia Respiratory insufficiency COPD exacerbation Aspiration pneumonia Coronary artery disease History of TIA (transient ischemic attack) COPD exacerbation Essential tremor Stage 3a chronic kidney disease (CKD) Diabetes mellitus, type 2 CAD (coronary artery disease) History of CVA (cerebrovascular accident) Tobacco use Hyperlipidemia COPD (chronic obstructive pulmonary disease) Hypertension Home Medications ?Medication ?Instructions ?Recorded ?Last Taken ?Type clopidogrel 75 mg tablet 75 mg PO DAILY Check with emelia huang 03/24/16 Unknown History doctor metoprolol tartrate 50 mg tablet 50 mg PO BID Check wi primary 03/24/16 01/04/25 History doctor amlodipine 5 mg tablet 5 mg PO DAILY Check with daniella castellano 12/11/22 12/10/22 History doctor sertraline 100 mg tablet 100 mg PO DAILY Check with p rimary 12/11/22 01/03/25 History doctor albuterol sulfate 2.5 mg/3 mL 2.5 mg (3 mL) inhalation Q2H PRN 12/17/22 12/10/22 Rx (0.083 %) solution for nebulization PRN shortness of b reath or wheezing #1 mL ipratropium 0.5 mg-albuterol 3 mg 3 ml inhalation 4X/D AY #120 mL 12/17/22 Unknown Rx (2.5 mg base)/3 mL nebulization soln albuterol sulfate 90 mcg/actuation 2 puff inhalation Q 4H PRN PRN 11/03/24 01/04/25 History aerosol inhaler wheezing atorvastatin 40 mg tablet 40 mg PO QHS cholesterol 04/2101/03/25 History fluticasone fur. 100 mcg-umeclid 1 ea inhalation DAILY 11/03/24 01/03/25 History 62.5 mcg-vilant 25 mcg inhalat.powder (Trelegy Ellipta) fluticasone propionate 50 1 spray intranasal BID 11/03 Unknown History mcg/actuation nasal spray,suspension metformin 500 mg tablet 500 mg PO BID 11/03/2401/04 History potassium chloride 20 mEq 20 meq PO DAILY #30 tabs 01/03/25 Rx tablet,extended release(part/cryst) (Klor-Con M) losartan 50 mg tablet 50 mg PO DAILY 01/04/25 Unkn own History nitroglycerin 0.4 mg sublingual 0.4 mg sublingual PRN PRN angina 01/04/25 Unknown History tablet primidone 50 mg tablet 50 mg PO BID 01/04/25 Unknow n History Allergy/AdvReac Type Severity Reaction Status Date / Time acetaminophen (From Tylenol) Allergy Unknown Verified 01/04/25 12:11 morphine Allergy Other Verified 01/04/25 12:11 oyster extract Allergy Unknown Verified 01/04/25 12:11 lisinopril AdvReac Other Verified 01/04/25 12:11 Family History Mother Cancer Brain cancer, unclear type. Son Cancer Youngest son, metastatic testicular cancer. Father Heart disease Hypertension CVA (cerebral vascular accident) Surgical History S/P appendectomy H/O right inguinal hernia repair S/P bilateral foot surgery S/P triple vessel bypass H/O heart artery stent Social History household members: spouse current occupational status: retired Smoking Status: Light Smoker (<10/day) how long ago did patient quit smoking: Smoked since 10/27/1967, up to 1 ppd, recent down to 1 pk/4-5 days. alcohol intake: current alcohol intake frequency: holidays/special occasions only substance use type: does not use ROS ROS Narrative 10 systems were reviewed with pertinent positives as noted in the HPI above. Physical Exam Const alert and no apparent distress General Appearance: cooperative HEENT normocephalic, head/scalp atraumatic and moist oral mucous membranes Eyes PERRL, EOMs intact bilaterally and conjunctivae normal Neck supple General: trachea midline Chest inspection of chest normal Resp normal respiratory effort and no use of accessory muscles Effort and Inspection: able to speak in complete sentences Auscultation: wheezes and diminished lung sounds Cardio regular rate and regular rhythm GI normal to inspection, nondistended, normoactive bowel sounds Extremity no clubbing, cyanosis or edema Skin no rashes or lesions noted Neuro CN's II-XII intact bilaterally, moves all extremities and no focal motor deficits Psych Mood & Affect: flat affect Lab / Micro Data 01/06/25 05:36 01/06/25 05:36 Labs: Laboratory Results - last 24 hr 01/05/25 16:43: POC Glucose 177 H 01/05/25 22:03: POC Glucose 216 H 01/06/25 05:36: WBC 14.7 H, RBC 2.41 L, Hgb 8.0 L, Hct 25.0 L, MCV 103.7 H, MCH 33.2 H, MCHC 32.0, RDW Std Deviation 53.2 H, RDW Coeff of Christine 14.0, Plt Count 181, MPV 10.5, Immature Gran % (Auto) 0.600, Neut % (Auto) 86.0 H, Lymph % (Auto) 7.9 L, Beauregard % (Auto) 5.3, Eos % (Auto) 0.1, Baso % (Auto) 0.1, Absolute Neuts (auto) 12.6 H, Absolute Lymphs (auto) 1.16, Nucleated RBC % 0, Sodium 139, Potassium 4.5, Chloride 94 L, Carbon Dioxide 35.0 H, Anion Gap 10, BUN 37 H, C reatinine 1.62 H, Estim Creat Clear Calc 44.46 L, Est GFR (MDRD) Non-Af 45 L, B UN/Creatinine Ratio 22.5 H, Glucose 216 H, Calcium 8.8 01/06/25 06:09: POC Glucose 215 H 01/06/25 11:26: POC Glucose 279 H Micro: Microbiology 01/05/25 06:50 Urine Catheter - Catheter Legionella Antigen - Final 01/05/25 06:50 Urine Catheter - Catheter Streptococcus pneumoniae Antigen (M - Final Charges/Coding Visit Charges Inpatient E&M: 84154 Init Hosp L2
[2025-01-06 17:01] LABS: Bedside Glucose 219 mg/dL (74-106)
[2025-01-06] MEDS: Atorvastatin Calcium 40 MG Tablet PO (22:28)
[2025-01-06 23:13] LABS: Bedside Glucose 238 mg/dL (74-106)
[2025-01-07] VITALS (18 sets, daily range): BP systolic 91–164; BP diastolic 42–75; PULSE 68–104; RESP 14–33; TEMP 36.3–36.9; O2SAT 89–99
[2025-01-07] MEDS: Ipratropium/Albuterol Sulfate 3 ML AMPUL.NEB INHALATION ×6 (03:10→22:53)
[2025-01-07 05:04] LABS: Absolute Neutrophil Count 9.4 X10^3/uL (2.0-7.7); Basophil# 0.01 X10^3/uL; Basophil% 0.1 % (0-1); Hematocrit 24.8 % (40-54); Hemoglobin 7.8 g/dL (13.0-16.5); Mean Corp Hgb Conc 31.5 g/dL (32-36); Mean Corpuscular Hgb 32.4 pg (27.0-32.0); Mean Corpuscular Volume 102.9 fL (80-94); Mean Platelet Vol. 10.1 fl (6.2-12.0); Monocyte# 0.49 X10^3/uL; Monocyte% 4.5 % (0-10); NRBC Flagged by Analyzer 0 % (0-5); Neutrophil # 9.36 X10^3/uL (2.7-7.7); Neutrophil % 85.1 % (47-70); Platelet Count 192 K/mm3 (150-450); RBC Distribution Width CV 14.3 % (11.6-14.6); RBC Distribution Width SD 53.1 fl (35.1-43.9); Red Blood Count 2.41 M/mm3 (4.6-6.2)
[2025-01-07 05:50] LABS: Anion Gap 11 (5-15); BUN 38 mg/dL (4-19); BUN/Creat Ratio 24.6 RATIO (10-20); Calcium,Total 8.9 mg/dL (7.6-11.0); Carbon Dioxide 36.2 mmol/L (21.0-32.0); Chloride 93 mmol/L (98-108); Creatinine, Serum 1.54 mg/dL (0.70-1.20); EST Glomerular Filtration Rate 47 (>60); Estimated Creatinine Clearance 46.77 ml/min (50-250); Glucose 209 mg/dL (70-99); Potassium 4.4 mmol/L (3.3-5.1); Sodium Level 140 mmol/L (133-145)
[2025-01-07] MEDS: Insulin Lispro 100 UNIT/ML INSULN.PEN SC ×4 (06:16→21:29)
[2025-01-07] MEDS: 0.9% Saline Lock 10 ML Syringe IV ×5 (06:16→21:32)
[2025-01-07] MEDS: Budesonide Respules 0.5 MG/2 ML AMPUL.NEB. INHALATION ×2 (06:30→19:28)
[2025-01-07 06:41] LABS: Bedside Glucose 183 mg/dL (74-106)
[2025-01-07] MEDS: Enoxaparin 40 MG/0.4 ML Syringe SC (09:31)
[2025-01-07] MEDS: Metoprolol Tartrate 50 MG Tablet PO ×2 (09:31→21:30)
[2025-01-07] MEDS: Fluticasone 0.05% 1 SPRAY NASAL.SRY NASAL (09:31)
[2025-01-07] MEDS: Clopidogrel Bisulfate 75 MG Tablet PO (09:31)
[2025-01-07] MEDS: Sertraline 100 MG Tablet PO (09:31)
[2025-01-07] MEDS: Furosemide 40 MG/4 ML Vial IV ×2 (09:32→17:20)
[2025-01-07] MEDS: Azithromycin 500 MG in 0.9% Normal Saline (250mL Bag) 250 ML 255 MG IV (09:41)
[2025-01-07 12:01] LABS: Bedside Glucose 272 mg/dL (74-106)
--- NOTE | 2025-01-07 15:41 | CASEMGMT ---
Addendum entered by Vincent Reeves 01/07/25 16:07: Silvina @ [facility] states they are able to accept pt w/SOC slated for Tues. DC plan was updated. Pt made aware. Original Note: RN KIMI NOTE: Per [facility], no additional ST is recommended as an OP. RN CM to room to discuss OP PT, as pt had told RN KIMI on admission he would like OP PT. Questions answered. Pt states he would rather have [facility] come again, stating it is difficult to get in/out of home and go places. He declines wanting list of other [facility] options. Call placed to [facility] and spoke w/Silvina. Referral made. Rohini RIVERS RN CM
--- NOTE | 2025-01-07 16:48 | PN_ITS ---
Subjective Subjective Patient seen and examined. He remains on BIPAP. He still feels short of breath and is coughing. Review of systems is otherwise negative. Objective Data Objective Data Vital Signs: Vital Signs Temp Pulse Resp BP Pulse Ox O2 Del Method O2 Flow Rate 97.8 F 92 28 H 121/75 H 96 High Flow 6 01/07/25 15:29 01/07/25 15:29 01/07/25 15:29 01/07/25 15:29 01/07/25 15:29 01/07/25 15:29 01/07/25 15:29 FiO2 30 01/07/25 06:32 Oxygen Flow Rate (L/min) 6 Oxygen Delivery Method High Flow Weight: 170 lb 10.205 oz Body Mass Index (BMI) 22.5 Intake & Output: Intake and Output for Last 24 Hours 01/05/25 01/06/25 01/07/25 23:59 23:59 23:59 Intake Total 1455 / 1455 255 / 305 545 / 545 Output Total 1850 / 1850 1450 / 1650 1600 / 1600 Balance -395 / -395 -1195 / -1345 -1055 / -1055 Lab / Micro Data 01/07/25 04:44 01/07/25 04:44 Labs: Laboratory Results - last 24 hr 01/06/25 16:19: POC Glucose 219 H 01/06/25 22:30: POC Glucose 238 H 01/07/25 04:44: WBC 11.0, RBC 2.41 L, Hgb 7.8 L, Hct 24.8 L, MCV 102.9 H, MCH 32.4 H, MCHC 31.5 L, RDW Std Deviation 53.1 H, RDW Coeff of Christine 14.3, Plt Count 192, MPV 10.1, Immature Gran % (Auto) 0.300, Neut % (Auto) 85.1 H, Lymph % (Auto) 10.0 L, Gallia % (Auto) 4.5, Eos % (Auto) 0.0, Baso % (Auto) 0.1, Absolute Neuts (auto) 9.4 H, Absolute Lymphs (auto) 1.10, Nucleated RBC % 0, Sodium 140, Potassium 4.4, Chloride 93 L, Carbon Dioxide 36.2 H, Anion Gap 11, BUN 38 H, C reatinine 1.54 H, Estim Creat Clear Calc 46.77 L, Est GFR (MDRD) Non-Af 47 L, B UN/Creatinine Ratio 24.6 H, Glucose 209 H, Calcium 8.9 01/07/25 06:15: POC Glucose 183 H 01/07/25 11:37: POC Glucose 272 H Micro: Microbiology 01/04/25 19:35 Mucosa - Nasopharyngeal Respiratory Panel (PCR) - Final 01/05/25 06:50 Urine Catheter - Catheter Legionella Antigen - Final 01/05/25 06:50 Urine Catheter - Catheter Streptococcus pneumoniae Antigen (M - Final Physical Exam Const alert, oriented x3 and no apparent distress Constitutional Narrative: Frail General Appearance: cooperative HEENT normocephalic, head/scalp atraumatic, hearing grossly normal bilaterally and moist oral mucous membranes Eyes PERRL, EOMs intact bilaterally and conjunctivae normal Neck full ROM, supple and no JVD Lymph Lymphatic: no lymphedema noted Resp Resp Narrative: Moderately diminished breath sounds bibasilarly. Mild wheezing, no crackles.. on BIPAP,. tachypneic Cardio regular rate, regular rhythm, S1 normal heart sound, S2 normal heart sound and no murmurs GI normal to inspection, nondistended, normoactive bowel sounds, soft to palpation, non-tender and non-distended Back/Spine normal ROM Extremity normal to inspection, normal capillary refill and no pedal edema General Extremity: no tenderness to palpation of joints or extremities Skin no rashes or lesions noted General Skin Exam: no breakdown Neuro Neuro Narrative: frail, no focal weakness Psych thought process normal and cooperative Mood & Affect: flat affect Assessment & Plan Assessment/Plan (1) COPD exacerbation: (2) Hypoxia: PLAN: Plan #Acute on chronic hypoxic respiratory failure due to COPD exacerbation. * now on BIPAP. Respiratory status has worsened. * on IV solumedrol and breathing treatment with bronchodilators. * wears 3L at rest and 6L with ambulation at home. * Chest x-ray showed increased central vascular congestion with chronic ILD changes. * Respiratory panel negative. Urine for strep and legionella negative * Pulmonology on board. Per pulm, to continue scheduled bronchodilators and steroids. To consider referral to hospice services due to end stage nature of lung disease. * on azithromycin. * #Acute on chronic heart failure with reduced ejection fraction * Has known EF of 41% with stage I diastolic dysfunction. * Echo also showed mild to moderate global hypokinesis of the left ventricle. On Lasix IV 40mg bid. * Pro BNP was 7221. #Chronic anemia: Hemoglobin is 7.8. Baseline is around 89. Globin was 9.9 on admission. Check iron profile and stool for occult blood #CKD stage IIIa: Creatinine is 1.62 today. Will monitor. #GERD: On PPI #Anxiety and depression: On sertraline #DVT prophylaxis: Lovenox Charges/Coding Visit Charges Inpatient E&M: 06239 Subs Hosp L3
[2025-01-07 16:54] LABS: Bedside Glucose 169 mg/dL (74-106)
[2025-01-07] MEDS: Atorvastatin Calcium 40 MG Tablet PO (21:30)
[2025-01-07] MEDS: Methylprednisolone Sod Succ 40 MG/ML VIAL IV (21:32)
[2025-01-07 21:56] LABS: Bedside Glucose 309 mg/dL (74-106)
[2025-01-08] VITALS (16 sets, daily range): BP systolic 119–153; BP diastolic 52–74; PULSE 75–100; RESP 14–32; TEMP 36.4–37.2; O2SAT 91–100
[2025-01-08] MEDS: Ipratropium/Albuterol Sulfate 3 ML AMPUL.NEB INHALATION ×6 (03:12→23:53)
[2025-01-08] MEDS: Insulin Lispro 100 UNIT/ML INSULN.PEN SC ×4 (05:55→21:16)
[2025-01-08] MEDS: Methylprednisolone Sod Succ 40 MG/ML VIAL IV ×3 (05:56→21:19)
[2025-01-08] MEDS: 0.9% Saline Lock 10 ML Syringe IV ×2 (05:56→21:19)
[2025-01-08 06:19] LABS: Bedside Glucose 211 mg/dL (74-106)
[2025-01-08 06:51] LABS: Absolute Lymphocyte Count 2.01 X10^3/uL (0.83-4.51); Absolute Neutrophil Count 6.8 X10^3/uL (2.0-7.7); Basophil# 0.01 X10^3/uL; Basophil% 0.1 % (0-1); Eosinophil# 0.01 X10^3/uL; Eosinophils% 0.1 % (0-5); Hematocrit 23.9 % (40-54); Hemoglobin 7.8 g/dL (13.0-16.5); Lymphocyte # 2.01 X10^3/ul (0.83-4.51); Lymphocyte % 21.2 % (19-41); Mean Corp Hgb Conc 32.6 g/dL (32-36); Mean Corpuscular Hgb 33.3 pg (27.0-32.0); Mean Corpuscular Volume 102.1 fL (80-94); Mean Platelet Vol. 10.5 fl (6.2-12.0); Monocyte# 0.63 X10^3/uL; Monocyte% 6.6 % (0-10); NRBC Flagged by Analyzer 0 % (0-5); Neutrophil % 71.8 % (47-70); Platelet Count 211 K/mm3 (150-450); RBC Distribution Width CV 14.1 % (11.6-14.6); RBC Distribution Width SD 52.6 fl (35.1-43.9); Red Blood Count 2.34 M/mm3 (4.6-6.2); White Blood Count 9.5 K/mm3 (4.4-11.0)
[2025-01-08 07:05] LABS: Anion Gap 12 (5-15); BUN 37 mg/dL (4-19); BUN/Creat Ratio 24.9 RATIO (10-20); Calcium,Total 8.9 mg/dL (7.6-11.0); Carbon Dioxide 35.5 mmol/L (21.0-32.0); Chloride 93 mmol/L (98-108); Creatinine, Serum 1.48 mg/dL (0.70-1.20); EST Glomerular Filtration Rate 50 (>60); Estimated Creatinine Clearance 48.67 ml/min (50-250); Glucose 223 mg/dL (70-99); Potassium 4.2 mmol/L (3.3-5.1); Sodium Level 140 mmol/L (133-145)
[2025-01-08] MEDS: Budesonide Respules 0.5 MG/2 ML AMPUL.NEB. INHALATION ×2 (08:07→19:26)
[2025-01-08] MEDS: Metoprolol Tartrate 50 MG Tablet PO ×2 (10:14→21:14)
[2025-01-08] MEDS: Furosemide 40 MG/4 ML Vial IV ×2 (10:14→16:42)
[2025-01-08] MEDS: Sertraline 100 MG Tablet PO (10:14)
[2025-01-08] MEDS: Enoxaparin 40 MG/0.4 ML Syringe SC (10:15)
[2025-01-08] MEDS: Clopidogrel Bisulfate 75 MG Tablet PO (10:15)
[2025-01-08] MEDS: Azithromycin 500 MG in 0.9% Normal Saline (250mL Bag) 250 ML 255 MG IV (10:19)
--- NOTE | 2025-01-08 10:38 | CASEMGMT ---
Social Work Per physician, physician spoke with pt regarding hospice and pt was agreeable. Nursing sent referral to [facility]. SW met with pt to discuss hospice. Pt states he is understanding of what hospice is and is agreeable to meet with hospice. Pt states that his does not know about this yet but gave SW permission to call with update. called x2 and VM left requesting return call. DONNIE Griffith
[2025-01-08 11:46] LABS: Bedside Glucose 351 mg/dL (74-106)
--- NOTE | 2025-01-08 14:54 | PN_ITS ---
Subjective Subjective Patient seen and examined. He remained on BiPAP though he was taken off of it and placed on nasal cannula at time of my review. He remains very weak and frail. He still admits to feeling short of breath. Review of systems otherwise negative. I counseled patient that pulmonology had advised that hospice be consulted in light of his end-stage COPD. Patient is agreeable to this. Objective Data Objective Data Vital Signs: Vital Signs Temp Pulse Resp BP Pulse Ox O2 Del Method O2 Flow Rate 98.9 F 86 30 H 152/74 H 91 Nasal Cannula 4 01/08/25 11:29 01/08/25 12:31 01/08/25 12:31 01/08/25 11:29 01/08/25 14:31 01/08/25 12:33 01/08/25 14:33 FiO2 25 01/08/25 08:10 Oxygen Flow Rate (L/min) 4 Oxygen Delivery Method Nasal Cannula Weight: 170 lb 10.205 oz Body Mass Index (BMI) 22.5 Intake & Output: Intake and Output for Last 24 Hours 01/06/25 01/07/25 01/08/25 23:59 23:59 23:59 Intake Total 255 / 305 785 / 905 375 / 375 Output Total 1450 / 1650 2050 / 2950 1300 / 1300 Balance -1195 / -1345 -1265 / -2045 -925 / -925 Lab / Micro Data 01/08/25 05:40 01/08/25 05:40 Labs: Laboratory Results - last 24 hr 01/07/25 16:32: POC Glucose 169 H 01/07/25 21:28: POC Glucose 309 H 01/08/25 05:40: WBC 9.5, RBC 2.34 L, Hgb 7.8 L, Hct 23.9 L, MCV 102.1 H, MCH 33.3 H, MCHC 32.6, RDW Std Deviation 52.6 H, RDW Coeff of Christine 14.1, Plt Count 211, MPV 10.5, Immature Gran % (Auto) 0.200, Neut % (Auto) 71.8 H, Lymph % (Auto) 21.2, Taliaferro % (Auto) 6.6, Eos % (Auto) 0.1, Baso % (Auto) 0.1, Absolute Neuts (auto) 6.8, Absolute Lymphs (auto) 2.01, Nucleated RBC % 0, Sodium 140, Potassium 4.2, Chloride 93 L, Carbon Dioxide 35.5 H, Anion Gap 12, BUN 37 H, C reatinine 1.48 H, Estim Creat Clear Calc 48.67 L, Est GFR (MDRD) Non-Af 50 L, B UN/Creatinine Ratio 24.9 H, Glucose 223 H, Calcium 8.9 01/08/25 05:54: POC Glucose 211 H 01/08/25 11:26: POC Glucose 351 H Micro: Microbiology 01/04/25 19:35 Mucosa - Nasopharyngeal Respiratory Panel (PCR) - Final 01/05/25 06:50 Urine Catheter - Catheter Legionella Antigen - Final 01/05/25 06:50 Urine Catheter - Catheter Streptococcus pneumoniae Antigen (M - Final Physical Exam Const alert, oriented x3, no apparent distress and average body habitus Constitutional Narrative: Frail, weak and debilitated HEENT normocephalic, head/scalp atraumatic and hearing grossly normal bilaterally Eyes EOMs intact bilaterally and conjunctivae normal Neck full ROM and supple Lymph Lymphatic: no lymphedema noted Chest inspection of chest normal Resp Resp Narrative: Moderately diminished breath sounds bibasilarly. Mild wheezing, no crackles.. on BIPAP,. tachypneic Cardio regular rate, regular rhythm, S1 normal heart sound, S2 normal heart sound, no murmurs and peripheral pulses 2+ throughout Cardio Narrative: Tachycardic, regular rhythm. GI normal to inspection, nondistended, normoactive bowel sounds, soft to palpation, non-tender and non-distended Back/Spine normal ROM Extremity normal to inspection, normal capillary refill, no calf tenderness and no pedal edema General Extremity: no tenderness to palpation of joints or extremities Skin no rashes or lesions noted General Skin Exam: no breakdown Neuro no focal motor deficits and no sensory deficits noted Neuro Narrative: frail, no focal weakness Motor Exam: general weakness Psych cooperative Psych Narrative: Flat affect. Mood & Affect: flat affect Assessment & Plan Assessment/Plan (1) COPD exacerbation: (2) Hypoxia: PLAN: Plan #Acute on chronic hypoxic respiratory failure due to COPD exacerbation. * Was on BiPAP this morning but was transitioned to oxygen by nasal cannula. He was requiring 4 L of oxygen. * on IV solumedrol and breathing treatment with bronchodilators. * wears 3L at rest and 6L with ambulation at home. * Chest x-ray showed increased central vascular congestion with chronic ILD changes. * Respiratory panel negative. Urine for strep and legionella negative * Pulmonology on board. Per pulm, to continue scheduled bronchodilators and steroids. To consider referral to hospice services due to end stage nature of lung disease. * on azithromycin. * Patient agreeable to hospice referral today as a referral made to hospice. #Acute on chronic heart failure with reduced ejection fraction * Has known EF of 41% with stage I diastolic dysfunction. * Echo also showed mild to moderate global hypokinesis of the left ventricle. On Lasix IV 40mg bid. * Pro BNP was 7221. #Chronic anemia: * Hemoglobin is still 7.8 today. Baseline is around 89. hemoglobin was 9.9 on admission. * #CKD stage IIIa: Creatinine is 1.48 today. Will monitor. #GERD: On PPI #Anxiety and depression: On sertraline #DVT prophylaxis: Lovenox Disposition: Hospice consulted today. Charges/Coding Visit Charges Inpatient E&M: 63710 Subs Hosp L2
[2025-01-08 17:00] LABS: Bedside Glucose 158 mg/dL (74-106)
[2025-01-08] MEDS: Atorvastatin Calcium 40 MG Tablet PO (21:14)
[2025-01-08 21:49] LABS: Bedside Glucose 293 mg/dL (74-106)
--- NOTE | 2025-01-08 23:55 | CPS ---
patient does not want to go on the BIPAP at this time
[2025-01-09] VITALS (16 sets, daily range): BP systolic 104–154; BP diastolic 58–92; PULSE 64–93; RESP 14–30; TEMP 36–36.6; O2SAT 92–99
[2025-01-09] MEDS: Insulin Lispro 100 UNIT/ML INSULN.PEN SC ×4 (06:31→22:14)
[2025-01-09] MEDS: Methylprednisolone Sod Succ 40 MG/ML VIAL IV ×3 (06:32→22:17)
[2025-01-09] MEDS: 0.9% Saline Lock 10 ML Syringe IV ×3 (06:34→22:18)
[2025-01-09 07:22] LABS: Bedside Glucose 212 mg/dL (74-106)
[2025-01-09 07:30] LABS: Absolute Lymphocyte Count 2.82 X10^3/uL (0.83-4.51); Absolute Neutrophil Count 7.1 X10^3/uL (2.0-7.7); Basophil# 0.01 X10^3/uL; Basophil% 0.1 % (0-1); Eosinophil# 0.04 X10^3/uL; Eosinophils% 0.4 % (0-5); Hematocrit 25.6 % (40-54); Hemoglobin 8.4 g/dL (13.0-16.5); Lymphocyte # 2.82 X10^3/ul (0.83-4.51); Lymphocyte % 25.9 % (19-41); Mean Corp Hgb Conc 32.8 g/dL (32-36); Mean Corpuscular Hgb 33.5 pg (27.0-32.0); Mean Platelet Vol. 10.1 fl (6.2-12.0); Monocyte# 0.88 X10^3/uL; Monocyte% 8.1 % (0-10); NRBC Flagged by Analyzer 0 % (0-5); Neutrophil # 7.11 X10^3/uL (2.7-7.7); Neutrophil % 65.1 % (47-70); Platelet Count 231 K/mm3 (150-450); RBC Distribution Width CV 14.2 % (11.6-14.6); RBC Distribution Width SD 53.2 fl (35.1-43.9); Red Blood Count 2.51 M/mm3 (4.6-6.2); White Blood Count 10.9 K/mm3 (4.4-11.0)
[2025-01-09 07:51] LABS: Anion Gap 9 (5-15); BUN 35 mg/dL (4-19); BUN/Creat Ratio 23.6 RATIO (10-20); Calcium,Total 8.9 mg/dL (7.6-11.0); Carbon Dioxide 38.6 mmol/L (21.0-32.0); Chloride 93 mmol/L (98-108); EST Glomerular Filtration Rate 49 (>60); Estimated Creatinine Clearance 48.02 ml/min (50-250); Glucose 206 mg/dL (70-99); Potassium 3.9 mmol/L (3.3-5.1); Sodium Level 141 mmol/L (133-145)
[2025-01-09] MEDS: Ipratropium/Albuterol Sulfate 3 ML AMPUL.NEB INHALATION ×5 (08:13→23:23)
[2025-01-09] MEDS: Budesonide Respules 0.5 MG/2 ML AMPUL.NEB. INHALATION ×2 (08:13→20:26)
--- NOTE | 2025-01-09 10:38 | PCM.PROGNOTE ---
Subjective Subjective Patient seen and examined. He was on 5 L of oxygen. He had no active complaints. He still coughing. He is awaiting hospice evaluation. Review of systems otherwise negative. He has otherwise remained hemodynamically stable. Objective Data Objective Data Vital Signs: Vital Signs Temp Pulse Resp BP Pulse Ox O2 Del Method O2 Flow Rate 97.1 F L 86 24 H 132/60 H 93 Nasal Cannula 5 01/09/25 06:38 01/09/25 08:13 01/09/25 08:13 01/09/25 06:38 01/09/25 08:13 01/09/25 08:13 01/09/25 08:13 FiO2 30 01/09/25 06:38 Oxygen Flow Rate (L/min) 5 Oxygen Delivery Method Nasal Cannula Weight: 170 lb 10.205 oz Body Mass Index (BMI) 22.5 Intake & Output: Intake and Output for Last 24 Hours 01/07/25 01/08/25 01/09/25 23:59 23:59 23:59 Intake Total 785 / 905 615 / 615 Output Total 2050 / 2950 3250 / 3250 600 / 600 Balance -1265 / -2045 -2635 / -2635 -600 / -600 Lab / Micro Data 01/09/25 07:19 01/09/25 07:19 Labs: Laboratory Results - last 24 hr 01/08/25 11:26: POC Glucose 351 H 01/08/25 16:41: POC Glucose 158 H 01/08/25 21:12: POC Glucose 293 H 01/09/25 06:26: POC Glucose 212 H 01/09/25 07:19: WBC 10.9, RBC 2.51 L, Hgb 8.4 L, Hct 25.6 L, MCV 102.0 H, MCH 33.5 H, MCHC 32.8, RDW Std Deviation 53.2 H, RDW Coeff of Christine 14.2, Plt Count 231, MPV 10.1, Immature Gran % (Auto) 0.400, Neut % (Auto) 65.1, Lymph % (Auto) 25.9, [place] % (Auto) 8.1, Eos % (Auto) 0.4, Baso % (Auto) 0.1, Absolute Neuts (auto) 7.1, Absolute Lymphs (auto) 2.82, Nucleated RBC % 0, Sodium 141, Potassium 3.9, Chloride 93 L, Carbon Dioxide 38.6 H, Anion Gap 9, BUN 35 H, Creatinine 1.50 H, Estim Creat Clear Calc 48.02 L, Est GFR (MDRD) Non-Af 49 L, BUN/Creatinine Ratio 23.6 H, Glucose 206 H, Calcium 8.9 Micro: Microbiology 01/04/25 19:35 Mucosa - Nasopharyngeal Respiratory Panel (PCR) - Final 01/05/25 06:50 Urine Catheter - Catheter Legionella Antigen - Final 01/05/25 06:50 Urine Catheter - Catheter Streptococcus pneumoniae Antigen (M - Final Physical Exam Const alert, no apparent distress and average body habitus Constitutional Narrative: Frail, weak and debilitated General Appearance: cooperative HEENT normocephalic, head/scalp atraumatic and hearing grossly normal bilaterally Eyes PERRL, EOMs intact bilaterally and conjunctivae normal Neck full ROM Lymph Lymphatic: no lymphedema noted Chest inspection of chest normal Resp Resp Narrative: Moderately diminished breath sounds bibasilarly. Mild wheezing, no crackles.. On 5 L of oxygen by nasal cannula. Still tachypneic Cardio regular rate, regular rhythm, S1 normal heart sound, S2 normal heart sound, no murmurs and peripheral pulses 2+ throughout GI normal to inspection, nondistended, normoactive bowel sounds, soft to palpation, non-tender and non-distended Back/Spine normal ROM Extremity normal to inspection, normal capillary refill, no calf tenderness and no pedal edema General Extremity: no tenderness to palpation of joints or extremities Skin no rashes or lesions noted General Skin Exam: no breakdown Neuro CN's II-XII intact bilaterally, no focal motor deficits and no sensory deficits noted Neuro Narrative: frail, no focal weakness Motor Exam: general weakness Psych mental status grossly normal, thought process normal and cooperative Psych Narrative: Flat affect. Appearance: appropriate Mood & Affect: flat affect Assessment & Plan Assessment/Plan (1) COPD exacerbation: (2) Hypoxia: PLAN: Plan #Acute on chronic hypoxic respiratory failure due to COPD exacerbation. on 5L of oxygen by nasal canula on IV solumedrol and breathing treatment with bronchodilators. wears 3L at rest and 6L with ambulation at home. Chest x-ray showed increased central vascular congestion with chronic ILD changes. Respiratory panel negative. Urine for strep and legionella negative Pulmonology on board. Per pulm, to continue scheduled bronchodilators and steroids. To consider referral to hospice services due to end stage nature of lung disease. on azithromycin. Patient agreeable to hospice referral so a referral made to hospice. #Acute on chronic heart failure with reduced ejection fraction Has known EF of 41% with stage I diastolic dysfunction. Echo also showed mild to moderate global hypokinesis of the left ventricle. On Lasix IV 40mg bid. Pro BNP was 7221. #Chronic anemia: Hemoglobin is still 8.4 today. Baseline is around 8-9. hemoglobin was 9.9 on admission. #CKD stage IIIa: Creatinine is 1.50 today. Will monitor. #GERD: On PPI #Anxiety and depression: On sertraline #DVT prophylaxis: Lovenox Disposition: this will be predicated on hospice evaluation. Charges/Coding Visit Charges Inpatient E&M: 81421 Subs Hosp L2
[2025-01-09] MEDS: Metoprolol Tartrate 50 MG Tablet PO ×2 (11:20→22:13)
[2025-01-09] MEDS: Furosemide 40 MG/4 ML Vial IV ×2 (11:20→20:36)
[2025-01-09] MEDS: Enoxaparin 40 MG/0.4 ML Syringe SC (11:21)
[2025-01-09] MEDS: Sertraline 100 MG Tablet PO (11:21)
[2025-01-09] MEDS: Clopidogrel Bisulfate 75 MG Tablet PO (11:21)
[2025-01-09] MEDS: Azithromycin 500 MG in 0.9% Normal Saline (250mL Bag) 250 ML 255 MG IV (11:32)
[2025-01-09 11:51] LABS: Bedside Glucose 317 mg/dL (74-106)
[2025-01-09 16:14] LABS: Bedside Glucose 293 mg/dL (74-106)
[2025-01-09] MEDS: Atorvastatin Calcium 40 MG Tablet PO (22:13)
[2025-01-09 22:43] LABS: Bedside Glucose 227 mg/dL (74-106)
[2025-01-10] VITALS (12 sets, daily range): BP systolic 128–148; BP diastolic 54–76; PULSE 72–103; RESP 20–28; TEMP 36.2–36.3; O2SAT 92–98
[2025-01-10] MEDS: Ipratropium/Albuterol Sulfate 3 ML AMPUL.NEB INHALATION ×3 (03:40→11:24)
[2025-01-10 06:02] LABS: Absolute Lymphocyte Count 1.64 X10^3/uL (0.83-4.51); Absolute Neutrophil Count 7.5 X10^3/uL (2.0-7.7); Basophil# 0.01 X10^3/uL; Basophil% 0.1 % (0-1); Eosinophil# 0.01 X10^3/uL; Eosinophils% 0.1 % (0-5); Lymphocyte # 1.64 X10^3/ul (0.83-4.51); Lymphocyte % 16.8 % (19-41); Mean Corp Hgb Conc 33.3 g/dL (32-36); Mean Corpuscular Hgb 33.5 pg (27.0-32.0); Mean Corpuscular Volume 100.4 fL (80-94); Mean Platelet Vol. 9.8 fl (6.2-12.0); Monocyte# 0.59 X10^3/uL; NRBC Flagged by Analyzer 0 % (0-5); Neutrophil # 7.51 X10^3/uL (2.7-7.7); Neutrophil % 76.7 % (47-70); Platelet Count 239 K/mm3 (150-450); RBC Distribution Width SD 51.5 fl (35.1-43.9); Red Blood Count 2.69 M/mm3 (4.6-6.2); White Blood Count 9.8 K/mm3 (4.4-11.0)
[2025-01-10] MEDS: Insulin Lispro 100 UNIT/ML INSULN.PEN SC ×3 (06:04→13:24)
[2025-01-10] MEDS: Methylprednisolone Sod Succ 40 MG/ML VIAL IV (06:04)
[2025-01-10] MEDS: 0.9% Saline Lock 10 ML Syringe IV (06:05)
[2025-01-10 06:28] LABS: Bedside Glucose 251 mg/dL (74-106)
[2025-01-10 06:29] LABS: Anion Gap 10 (5-15); BUN 30 mg/dL (4-19); BUN/Creat Ratio 22.2 RATIO (10-20); Calcium,Total 8.8 mg/dL (7.6-11.0); Carbon Dioxide 36.7 mmol/L (21.0-32.0); Chloride 94 mmol/L (98-108); Creatinine, Serum 1.37 mg/dL (0.70-1.20); EST Glomerular Filtration Rate 54 (>60); Estimated Creatinine Clearance 52.57 ml/min (50-250); Glucose 254 mg/dL (70-99); Potassium 4.2 mmol/L (3.3-5.1); Sodium Level 140 mmol/L (133-145)
[2025-01-10] MEDS: Budesonide Respules 0.5 MG/2 ML AMPUL.NEB. INHALATION (07:34)
[2025-01-10] MEDS: Enoxaparin 40 MG/0.4 ML Syringe SC (10:47)
[2025-01-10] MEDS: Clopidogrel Bisulfate 75 MG Tablet PO (10:48)
[2025-01-10] MEDS: Sertraline 100 MG Tablet PO (10:48)
[2025-01-10] MEDS: Furosemide 40 MG/4 ML Vial IV (10:48)
[2025-01-10] MEDS: Fluticasone 0.05% 1 SPRAY NASAL.SRY NASAL (10:48)
[2025-01-10] MEDS: Metoprolol Tartrate 50 MG Tablet PO (10:48)
[2025-01-10] MEDS: Azithromycin 500 MG in 0.9% Normal Saline (250mL Bag) 250 ML 255 MG IV (10:55)
--- NOTE | 2025-01-10 11:20 | DCINST_ITS ---
Discharge Instructions Diet Discharge Diet: No restrictions DC O2, CPAP, BIPAP needs Home O2 Discharge instructions: Yes Type of respiratory needs?: Oxygen Oxygen frequency: Continuous Continuous oxygen liters per minute: 4 Dressing / Incision Discharge Activity: Return to Normal Activity Weight Bearing Status: Weight bearing as tolerated Dressing / Incision Call your doctor if you observe: - (Discharged with home with home hospice care. Call hospice doctor/nurse ) Follow Up Care When: IN 2 WEEKS Test Results: Test results from this visit will be discussed in further detail at your follow- up appointment, if applicable. Discharge Plan Admission Admit Date/Time: 01/04/25 15:59 Primary Reason for Your Visit: End-stage COPD. Chronic malnutrition Attending Provider: Mac Alcocer Primary Care Provider: Royce Carroll Consulting Providers: Dalton Govea; Naga Reece; Lilia Santiago; Linnette Lopez; Theresa Molina; Yocasta Park PLAT[employer] BU[employer]DER UP; Kaia Head; Rafaela Pelayo Discharge Orders/Prescriptions Prescriptions: New furosemide [Lasix] 40 mg tablet 40 mg PO DAILY 30 Days Qty: 30 0RF Continued clopidogrel 75 MG tablet 75 mg PO DAILY Patient Comments: cholesterol metoprolol tartrate 50 MG tablet 50 mg PO BID Patient Comments: treat Blood pressure sertraline 100 mg tablet 100 mg PO DAILY Patient Comments: TAKE 1 TABLET BY MOUTH EVERY DAY amlodipine 5 mg tablet 5 mg PO DAILY Patient Comments: TAKE 1 TABLET BY MOUTH EVERY DAY ipratropium-albuterol 0.5 mg-3 mg(2.5 mg base)/3 mL Solution For Nebulization 3 ml inhalation 4X/DAY Qty: 120 0RF albuterol sulfate 2.5 mg /3 mL (0.083 %) solution for nebulization 2.5 mg inhalation Q2H PRN PRN (Reason: shortness of breath or wheezing) Qty: 1 0RF Rx Instructions: Use every two hours as needed for shortness of breath atorvastatin 40 mg tablet 40 mg PO QHS metformin 500 mg tablet 500 mg PO BID fluticasone propionate 50 mcg/actuation spray,suspension 1 spray INTRANASAL BID Trelegy Ellipta 100-62.5-25 mcg blister with device 1 ea inhalation DAILY albuterol sulfate 90 mcg/actuation HFA aerosol inhaler 2 puff inhalation Q4H PRN PRN (Reason: wheezing) potassium chloride [Klor-Con M20] 20 mEq tablet,ER particles/crystals 20 meq PO DAILY Qty: 30 1RF losartan 50 mg tablet 50 mg PO DAILY primidone 50 mg tablet 50 mg PO BID nitroglycerin 0.4 mg tablet, sublingual 0.4 mg sublingual PRN PRN (Reason: angina) Referrals / Follow Up: Royce Carroll MD [Primary Care Provider] - Within 1 Week (Patient is on home hospice care) Disposition Disposition (needs filled in before D/C Order can be placed): Hospice in Home
--- NOTE | 2025-01-10 11:24 | PCM.DC.SUM ---
Providers Date of Admission: 01/04/25 Date of Discharge: 01/10/25 Primary Care Physician: Dr. Royce Carroll MD Consultations 01/05/25 17:32 Consult: Hand Packager / Pulmonary Medicine Routine Consulting Provider: Intensivists/Pulmonary Med Reason for Consult: acute on chronic hypoxic resp failure EMERGENT Consult: No Notified: Yes Date Notified: 01/05/25 Time Notified: 07:00 Method of Notification: Text 01/08/25 09:37 Consult: Hospice / Palliative Care Routine Consulting Provider: [facility] Reason for Consult: acute on chronic resp failure due to end stage COPD EMERGENT Consult: No Notified: Yes Date Notified: 01/08/25 Time Notified: 09:48 Method of Notification: Answering Service Reason For Visit: COPD EXACERBATION Diagnosis Discharge Diagnosis (1) COPD exacerbation: Status: Chronic Code(s): J44.1 - Chronic obstructive pulmonary disease with (acute) exacerbation (2) Hypoxia: Status: Acute Code(s): R09.02 - Hypoxemia Plan: 74-year-old male was admitted with shortness of breath and managed for acute exacerbation of COPD. Hospice was consulted for patient extreme felt and missed his DAPT. Currently patient 4 L of oxygen. Acute on chronic hypoxic respiratory failure due to COPD exacerbation. on 5L of oxygen by nasal canula on IV solumedrol and breathing treatment with bronchodilators. wears 3L at rest and 6L with ambulation at home. Chest x-ray showed increased central vascular congestion with chronic ILD changes. Respiratory panel negative. Urine for strep and legionella negative Pulmonology on board. Per pulm, to continue scheduled bronchodilators and steroids. To consider referral to hospice services due to end stage nature of lung disease. on azithromycin. Completed azithromycin. Hospice consult was done and accepted for home hospice. Discharge to home on home oxygen. DNR CC papers signed. #Acute on chronic heart failure with reduced ejection fraction Has known EF of 41% with stage I diastolic dysfunction. Echo also showed mild to moderate global hypokinesis of the left ventricle. On Lasix IV 40mg bid. Pro BNP was 7221. Prescription given for furosemide 40 mg daily #Chronic anemia: Hemoglobin is still 8.4 today. Baseline is around 8-9. hemoglobin was 9.9 on admission. H&H 9.0/27%. Platelet count normal. #CKD stage IIIa: Creatinine is 1.50, better improving 1.37. #GERD: On PPI #Anxiety and depression: On sertraline #DVT prophylaxis: Lovenox Discharge medication reconciliation done. Discharge follow-up instructions completed. Discharge process discussed with the patient and all questions were answered to patient's satisfaction. Follow with PCP in 1 to 2 weeks Total time spent, exact 35 minutes on discharge meds reconciliation, examination, coordination of care with nurses and ancillary staff, review of imaging and blood test and discussion with the patient on follow-up instructions. Medications at Discharge Home Medications clopidogrel 75 mg tablet 75 mg PO DAILY Check with primary doctor 03/24/16 metoprolol tartrate 50 mg tablet 50 mg PO BID Check with primary doctor 03/24/16 amlodipine 5 mg tablet 5 mg PO DAILY Check with primary doctor 12/11/22 sertraline 100 mg tablet 100 mg PO DAILY Check with primary doctor 12/11/22 albuterol sulfate 2.5 mg/3 mL (0.083 %) solution for nebulization 2.5 mg (3 mL) inhalation Q2H PRN PRN shortness of breath or wheezing #1 mL 12/17/22 ipratropium 0.5 mg-albuterol 3 mg (2.5 mg base)/3 mL nebulization soln 3 ml inhalation 4X/DAY #120 mL 12/17/22 albuterol sulfate 90 mcg/actuation aerosol inhaler 2 puff inhalation Q4H PRN PRN wheezing 11/03/24 atorvastatin 40 mg tablet 40 mg PO QHS cholesterol 11/03/24 fluticasone fur. 100 mcg-umeclid 62.5 mcg-vilant 25 mcg inhalat.powder (Trelegy Ellipta) 1 ea inhalation DAILY 11/03/24 fluticasone propionate 50 mcg/actuation nasal spray,suspension 1 spray intranasal BID 11/03/24 metformin 500 mg tablet 500 mg PO BID 11/03/24 potassium chloride 20 mEq tablet,extended release(part/cryst) (Klor-Con M) 20 meq PO DAILY #30 tabs 11/12/24 losartan 50 mg tablet 50 mg PO DAILY 01/04/25 nitroglycerin 0.4 mg sublingual tablet 0.4 mg sublingual PRN PRN angina 01/04/25 primidone 50 mg tablet 50 mg PO BID 01/04/25 furosemide 40 mg tablet (Lasix) 40 mg PO DAILY 1 month #30 tabs 01/10/25 Physical Exam Narrative Seen and examined Patient is short of breath on 4 L of oxygen. Dyspnea at rest. Patient denies problem in which durations/voiding urine before Funez catheterization. Physical exam General: Alert, Oriented x3, Cooperative. BMI 22.5 kg/m? but patient frail and weak. HEENT: Atraumatic, PERRLA, EOMI, Normocephalic. Oral: No Gingival or Mucosal Lesions/ Ulcerations Neck: Supple, No JVD, Negative Carotid Bruits Chest wall/Lungs: Air entry severely diminished in all lung kahn. Mild expiratory rhonchi Cardiovascular: Regular rate and rhythm, Normal S1,S2, No M/G/R Abdomen: Bowel Sounds Present, Soft, Non Tender, Non-Distended : Funez catheter. No renal angle tenderness. No suprapubic tenderness. Extremities: No edema, Capillary Refill Less than 3 Seconds Skin: No rashes, No breakdown Musculoskeletal: No Tenderness to Palpation of Joints or Extremities. ROM limited at knee and hip joints Neurological: Cranial nerves II-XII grossly intact, DTR 2+/4. No acute focal neurological deficit. Psych/Mental Status: Flat affect Weight / BMI Weight Weight: 170 lb 10.205 oz Body Mass Index (BMI) 22.5 ABG / Lab / Microbiology Data 01/10/25 05:40 01/10/25 05:40 Laboratory: Laboratory Results - last 24 hr 01/09/25 22:08: POC Glucose 227 H 01/10/25 05:40: WBC 9.8, RBC 2.69 L, Hgb 9.0 L, Hct 27.0 L, MCV 100.4 H, MCH 33.5 H, MCHC 33.3, RDW Std Deviation 51.5 H, RDW Coeff of Christine 14.0, Plt Count 239, MPV 9.8, Immature Gran % (Auto) 0.300, Neut % (Auto) 76.7 H, Lymph % (Auto) 16.8 L, [place] % (Auto) 6.0, Eos % (Auto) 0.1, Baso % (Auto) 0.1, Absolute Neuts (auto) 7.5, Absolute Lymphs (auto) 1.64, Nucleated RBC % 0, Sodium 140, Potassium 4.2, Chloride 94 L, Carbon Dioxide 36.7 H, Anion Gap 10, BUN 30 H, Creatinine 1.37 H, Estim Creat Clear Calc 52.57, Est GFR (MDRD) Non-Af 54 L, BUN/Creatinine Ratio 22.2 H, Glucose 254 H, Calcium 8.8 01/10/25 06:01: POC Glucose 251 H 01/10/25 12:45: POC Glucose > 500 H* 01/10/25 12:46: POC Glucose 479 H* Microbiology: Microbiology 01/04/25 19:35 Mucosa - Nasopharyngeal Respiratory Panel (PCR) - Final 01/05/25 06:50 Urine Catheter - Catheter Legionella Antigen - Final 01/05/25 06:50 Urine Catheter - Catheter Streptococcus pneumoniae Antigen (M - Final D/C Instructions Discharge Diet: No restrictions Weight Bearing Status: Weight bearing as tolerated Call your doctor if you observe: - (Discharged with home with home hospice care. Call hospice doctor/nurse ) DC O2, CPAP, BIPAP Needs Home O2 Discharge instructions: Yes Type of respiratory needs?: Oxygen Oxygen frequency: Continuous Continuous oxygen liters per minute: 4 DC home with Oxygen: Yes Home O2 MD Review: I have reviewed the oxygen testing, and the patient qualifies for home oxygen equipment and portability. The patient is mobile in the home and the community. When: IN 2 WEEKS Meaningful Use Info Meaningful Use Meaningful Use Diagnoses (Choose all that apply): None applicable Ischemic Stroke Statin Dosing Therapy Reference: STATIN DOSE THERAPY REFERENCE: * Patients > 75 years receive moderate or high dose statin therapy. * Patients 75 years or YOUNGER should receive HIGH intensity statin dose unless contraindicated. You will be required to document reason for non-treatment if statin daily dose does not meet guidelines. HIGH DOSE STATIN THERAPY DAILY Atorvastatin > than or = to 40 mg Rosuvastatin > than or = to 20 mg Amlodipine + Atorvastatin > than or = to 2.5/40 mg Ezetimibe + Simvastatin 10/80 mg Simvastatin 80mg Discharge Plan Admission Admit Date/Time: 01/04/25 15:59 Primary Reason for Your Visit: End-stage COPD. Chronic malnutrition Attending Provider: Mac Alcocer Primary Care Provider: Royce Carroll Consulting Providers: Dalton Govea; Naga Reece; iLlia Santiago; Linnette Lopez; Theresa Molina; Yocasta Park NP; Kaia Head; Rafaela Pelayo Discharge Orders/Prescriptions Prescriptions: New furosemide [Lasix] 40 mg tablet 40 mg PO DAILY 30 Days Qty: 30 0RF Continued clopidogrel 75 MG tablet 75 mg PO DAILY Patient Comments: cholesterol metoprolol tartrate 50 MG tablet 50 mg PO BID Patient Comments: treat Blood pressure sertraline 100 mg tablet 100 mg PO DAILY Patient Comments: TAKE 1 TABLET BY MOUTH EVERY DAY amlodipine 5 mg tablet 5 mg PO DAILY Patient Comments: TAKE 1 TABLET BY MOUTH EVERY DAY ipratropium-albuterol 0.5 mg-3 mg(2.5 mg base)/3 mL Solution For Nebulization 3 ml inhalation 4X/DAY Qty: 120 0RF albuterol sulfate 2.5 mg /3 mL (0.083 %) solution for nebulization 2.5 mg inhalation Q2H PRN PRN (Reason: shortness of breath or wheezing) Qty: 1 0RF Rx Instructions: Use every two hours as needed for shortness of breath atorvastatin 40 mg tablet 40 mg PO QHS metformin 500 mg tablet 500 mg PO BID fluticasone propionate 50 mcg/actuation spray,suspension 1 spray INTRANASAL BID Trelegy Ellipta 100-62.5-25 mcg blister with device 1 ea inhalation DAILY albuterol sulfate 90 mcg/actuation HFA aerosol inhaler 2 puff inhalation Q4H PRN PRN (Reason: wheezing) potassium chloride [Klor-Con M20] 20 mEq tablet,ER particles/crystals 20 meq PO DAILY Qty: 30 1RF losartan 50 mg tablet 50 mg PO DAILY primidone 50 mg tablet 50 mg PO BID nitroglycerin 0.4 mg tablet, sublingual 0.4 mg sublingual PRN PRN (Reason: angina) Referrals / Follow Up: Royce Carroll MD [Primary Care Provider] - Within 1 Week (Patient is on home hospice care) Disposition Disposition (needs filled in before D/C Order can be placed): Hospice in Home Charges/Coding Visit Charges Inpatient E&M: 59586 Disch Hosp >30min
[2025-01-10 15:20] LABS: Bedside Glucose > 500 mg/dL (74-106)
[2025-01-10 15:20] LABS: Bedside Glucose 479 mg/dL (74-106)
== END 2025-01-10 15:06 | disposition hospice, home (50) | DRG 189 ==
LOC: ED 13:11 → PCU 17:15
PROVIDERS: Student in an Organized Health Care Education/Training Program; Admitting Provider Hospitalist; Emergency Provider Emergency Medicine; PCP Internal Medicine; Visit Provider Internal Medicine
DX: J96.21 Acute and chronic respiratory failure with hypoxia (principal); I50.23 Acute on chronic systolic (congestive) heart failure; I42.9 Cardiomyopathy, unspecified; J44.0 Chronic obstructive pulmonary disease with (acute) lower respiratory infection; I13.0 Hypertensive heart and chronic kidney disease with heart failure and stage 1 through stage 4 chronic kidney disease, or unspecified chronic kidney disease; J44.1 Chronic obstructive pulmonary disease with (acute) exacerbation; E11.22 Type 2 diabetes mellitus with diabetic chronic kidney disease; D64.9 Anemia, unspecified; N18.31 Chronic kidney disease, stage 3a; F32.A Depression, unspecified; E78.5 Hyperlipidemia, unspecified; F17.210 Nicotine dependence, cigarettes, uncomplicated; I12.9 Hypertensive chronic kidney disease with stage 1 through stage 4 chronic kidney disease, or unspecified chronic kidney disease; J84.10 Pulmonary fibrosis, unspecified; I25.10 Atherosclerotic heart disease of native coronary artery without angina pectoris; K21.9 Gastro-esophageal reflux disease without esophagitis; Z79.82 Long term (current) use of aspirin; Z95.5 Presence of coronary angioplasty implant and graft; Z79.02 Long term (current) use of antithrombotics/antiplatelets; Z79.84 Long term (current) use of oral hypoglycemic drugs; Z79.51 Long term (current) use of inhaled steroids; Z86.73 Personal history of transient ischemic attack (TIA), and cerebral infarction without residual deficits
CPT/HCPCS: 36415; 36600; 71045; 80048; 82803; 82962; 83880; 85025; 85027; 87449; 87633; 92526; 92610; 93005; 94002; 94003; 94640; 94668; 94762; 97162; 97166; 97535; 99285; A4216; J1938

== ENCOUNTER 2025-02-22 16:46 | Emergency (ER) | payer MEDICARE, SELFPAY ==
[2025-02-22 16:47] VITALS: BP 113/55; PULSE 79; RESP 30; TEMP 36.5; O2SAT 80; O2SAT 88; BMI 21.3
--- NOTE | 2025-02-22 17:16 | EDS_ITS ---
HPI History of Present Illness Chief Complaint: Shortness of Breath Narrative Narrative: Patient is a 74-year-old male with past medical history of COPD chronically on nasal cannula, hypertension, CAD, TIA, chronic kidney disease, hyperlipidemia who presented to the emergency department via EMS after he fell off the toilet. According to the family member at bedside they called EMS as they were nervous the patient is on hospice. Per nursing staff hospice is on their way to admit him to the inpatient unit. [facility] Medical History COPD exacerbation Hypoxia LV dysfunction Chest pain Elevated troponin Essential hypertension Macrocytic anemia Respiratory insufficiency COPD exacerbation Aspiration pneumonia Coronary artery disease History of TIA (transient ischemic attack) COPD exacerbation Essential tremor Stage 3a chronic kidney disease (CKD) Diabetes mellitus, type 2 CAD (coronary artery disease) History of CVA (cerebrovascular accident) Tobacco use Hyperlipidemia COPD (chronic obstructive pulmonary disease) Hypertension Home Medications ?Medication ?Instructions ?Recorded ?Last Taken ?Type clopidogrel 75 mg tablet 75 mg PO DAILY Check with pr imary 03/24/16 Unknown History doctor metoprolol tartrate 50 mg tablet 50 mg PO BID Check wi primary 03/24/16 01/04/25 History doctor amlodipine 5 mg tablet 5 mg PO DAILY Check with daniella nona 12/11/22 12/10/22 History doctor sertraline 100 mg tablet 100 mg PO DAILY Check with p dasha 12/11/22 01/03/25 History doctor atorvastatin 40 mg tablet 40 mg PO QHS cholesterol 04/2101/03/25 History fluticasone fur. 100 mcg-umeclid 1 ea inhalation DAILY 11/03/24 01/03/25 History 62.5 mcg-vilant 25 mcg inhalat.powder (Trelegy Ellipta) fluticasone propionate 50 1 spray intranasal BID 11/03 Unknown History mcg/actuation nasal spray,suspension metformin 500 mg tablet 500 mg PO BID 11/03/2401/04 History nitroglycerin 0.4 mg sublingual 0.4 mg sublingual PRN PRN angina 01/04/25 Unknown History tablet primidone 50 mg tablet 50 mg PO BID 01/04/25 Unknow n History Allergy/AdvReac Type Severity Reaction Status Date / Time acetaminophen (From Tylenol) Allergy Unknown Verified 02/22/25 16:52 morphine Allergy Other Verified 02/22/25 16:52 oyster extract Allergy Unknown Verified 02/22/25 16:52 lisinopril AdvReac Other Verified 02/22/25 16:52 Family History Mother Cancer Brain cancer, unclear type. Son Cancer Youngest son, metastatic testicular cancer. Father Heart disease Hypertension CVA (cerebral vascular accident) Surgical History S/P appendectomy H/O right inguinal hernia repair S/P bilateral foot surgery S/P triple vessel bypass H/O heart artery stent Social History household members: spouse current occupational status: retired Smoking Status: Light Smoker (<10/day) how long ago did patient quit smoking: Smoked since 10/27/1967, up to 1 ppd, recent down to 1 pk/4-5 days. alcohol intake: current alcohol intake frequency: holidays/special occasions only substance use type: does not use ROS ROS ED ROS Narrative Constitutional: Denies headaches, fevers Eyes: Denies double vision Cardiovascular: Denies chest pain Respiratory: Denies shortness of breath Abdomen: Denies nausea vomiting : Denies urinary symptom Skin: Denies any rashes or lesions EXAM Physical Exam Narrative Exam Narrative: General: Patient is lying in bed rest comfortably does not appear to be in acute distress Head: Atraumatic, normocephalic Eyes: PERRL bilaterally, EOMI black no conjunctival injection noted Neck: Soft, supple, trachea midline Cardiovascular: Regular in rhythm Respiratory: Clear to auscultation bilaterally Abdomen: Soft, nondistended Extremities: +4/5 strength noted in the bilateral upper and lower extremities Neurological: Patient was able to answer yes and no questions Skin: Warm, dry, tact no rashes or lesions noted Const Vital Signs: 02/22/25 16:47 02/22/25 17:31 02/22/25 18:30 Temperature 97.7 F L Temperature Source Oral Pulse Rate 79 Respiratory Rate 30 H Respiratory Effort Normal Non-Labored Respiratory Depth Normal Respiratory Pattern Normal Blood Pressure 113/55 L 117/54 L Blood Pressure Mean 74 73 Pulse Ox 80 100 Oxygen Delivery Method Nasal Cannula Nasal Cannula Oxygen Flow Rate (L/min) 6 6 02/22/25 20:00 Temperature Temperature Source Pulse Rate 88 Respiratory Rate Respiratory Effort Respiratory Depth Respiratory Pattern Blood Pressure 145/79 H Blood Pressure Mean 101 Pulse Ox 100 Oxygen Delivery Method Oxygen Flow Rate (L/min) MDM MDM MDM Narrative Medical decision making narrative: Patient is a 74-year-old male who presents to the emergency department with a chief complaint of syncopal episode while on toilet. On the differential diagnosis includes but not limited to ACS, pneumonia, pneumothorax, electrolyte abnormality. Once again the hospice nurses on their way to evaluate the patient. We are advised to not order any testing. Hospice evaluated the patient and they will be taking the patient to the inpatient unit. All question concerns answered Discharge Plan Triage Chief Complaint: Shortness of Breath ED Provider: Archie Hernandez Dx/Rx/DC Orders Clinical Impression: Syncope, Acute on chronic hypoxic respiratory failure, COPD (chronic obstructive pulmonary disease) Prescriptions: No Action clopidogrel 75 MG tablet 75 mg PO DAILY Patient Comments: cholesterol metoprolol tartrate 50 MG tablet 50 mg PO BID Patient Comments: treat Blood pressure sertraline 100 mg tablet 100 mg PO DAILY Patient Comments: TAKE 1 TABLET BY MOUTH EVERY DAY amlodipine 5 mg tablet 5 mg PO DAILY Patient Comments: TAKE 1 TABLET BY MOUTH EVERY DAY atorvastatin 40 mg tablet 40 mg PO QHS metformin 500 mg tablet 500 mg PO BID fluticasone propionate 50 mcg/actuation spray,suspension 1 spray INTRANASAL BID Trelegy Ellipta 100-62.5-25 mcg blister with device 1 ea inhalation DAILY primidone 50 mg tablet 50 mg PO BID nitroglycerin 0.4 mg tablet, sublingual 0.4 mg sublingual PRN PRN (Reason: angina) Primary Care Provider: Royce Carroll Referrals: Royce Carroll MD [Primary Care Provider] - Print Language: Wolof Disposition Disposition: DC/Tx to Another Type of HCF
[2025-02-22 18:30] VITALS: BP 117/54; O2SAT 100
--- NOTE | 2025-02-22 18:30 | CM.ED ---
Social work Reason for referral: hospice SW consulted due to patient being a hospice patient and patient's daughter, Mariela, having a highly emotional reaction to patient presenting to [facility] ED with intent to call hospice to come evaluate patient. Per nursing, Mariela lost Mariela's mother 3 years ago and Mariela was struggling with likely losing patient as well. SW entered patient's room, introducing self and role at [facility]. Mariela welcomed SW visit and Mariela was very tearful when talking about patient. Mariela was observed holding patient's hand and Mariela shared memories of patient's ornery mannerisms. Patient's , Mis, arrived after awhile and SW reintroduced self and role at [facility]. SW provided empathic support and active listening throughout time spent with patient and patient's family. Patient remained asleep during SW's time in room. Mariela stated more family was arriving shortly, so SW gathered more chairs in patient's room. SW left room to provide Mariela and Mis uninterrupted time with patient. SW to follow as needed. Lucy Wu, RING CONDUCTOR, [employer]
[2025-02-22 20:00] VITALS: BP 145/79; PULSE 88; O2SAT 100
[2025-02-22 22:00] VITALS: BP 148/80; PULSE 94; RESP 22; O2SAT 100
[2025-02-23] VITALS: BP 157/73; PULSE 94; RESP 19; O2SAT 99
--- NOTE | 2025-02-23 00:23 | ED.RN ---
REPORT CALLED TO HOSPICE NURSE YOVANI AT THIS TIME. TRANSPORT IN DEPARTMENT
[2025-02-23 00:32] VITALS: BP 140/88; PULSE 103; RESP 18; TEMP 36.6; O2SAT 98
== END 2025-02-23 00:42 | disposition other institution (70) ==
PROVIDERS: Emergency Provider Emergency Medicine; PCP Internal Medicine; Visit Provider Emergency Medicine
DX: J96.21 Acute and chronic respiratory failure with hypoxia (principal); J44.9 Chronic obstructive pulmonary disease, unspecified; E11.22 Type 2 diabetes mellitus with diabetic chronic kidney disease; N18.31 Chronic kidney disease, stage 3a; I12.9 Hypertensive chronic kidney disease with stage 1 through stage 4 chronic kidney disease, or unspecified chronic kidney disease; R55 Syncope and collapse; E78.5 Hyperlipidemia, unspecified; I25.10 Atherosclerotic heart disease of native coronary artery without angina pectoris; Z86.73 Personal history of transient ischemic attack (TIA), and cerebral infarction without residual deficits; W18.11XA Fall from or off toilet without subsequent striking against object, initial encounter; Z79.02 Long term (current) use of antithrombotics/antiplatelets; Z79.899 Other long term (current) drug therapy; Z79.51 Long term (current) use of inhaled steroids; Z90.49 Acquired absence of other specified parts of digestive tract; F17.200 Nicotine dependence, unspecified, uncomplicated
CPT/HCPCS: 99284